=== PATIENT | female | born 1950 | race Caucasian/White ===

== ENCOUNTER → 2017-04-19 14:05 | Outpatient (CLI) | payer MEDICARE, OTHER, SELFPAY ==
[2017-04-19 15:38] LABS: AST(SGOT) 22 U/L (15-37); Alanine Aminotransfer ALT/SGPT 34 U/L (13-56); Albumin, Serum 3.7 g/dL (3.2-5.0); Alkaline Phosphatase 81 U/L (45-117); Cholesterol 191 mg/dL (200); Globulin 3.6 g/dL (2.2-4.2); High Density Lipoprotein 47 mg/dL; Protein, Total 7.3 g/dL (6.4-8.2); Triglycerides 147 mg/dL; Very Low Density Lipoprotein 29 mg/dL (5-40)
== END ==
PROVIDERS: Family Provider Family Medicine; Visit Provider Physician Assistant Medical
DX: E78.5 Hyperlipidemia, unspecified (principal); Z79.899 Other long term (current) drug therapy
CPT/HCPCS: 36415; 80061; 80076

== ENCOUNTER 2017-04-26 13:59 | Outpatient (RCR) | payer MEDICARE, OTHER, SELFPAY ==
[2017-04-11 15:13] LABS: International Normalized Ratio 3.1
[2017-04-26 15:31] LABS: International Normalized Ratio 3.1
== END 2017-04-26 14:00 ==
LOC: LAB 13:59
PROVIDERS: Visit Provider Internal Medicine Cardiovascular Disease
DX: I48.0 Paroxysmal atrial fibrillation (principal); Z79.899 Other long term (current) drug therapy
CPT/HCPCS: 36415; 85610

== ENCOUNTER → 2017-05-09 12:36 | Outpatient (CLI) | payer MEDICARE, OTHER, SELFPAY ==
[2017-04-11 15:01] VITALS: BP 110/74; BMI 29.0
--- NOTE | 2017-05-09 12:40 | CDU_ITS ---
Reason For Study: CAROTID STENOSIS Rt. Velocities/BP Lt. Velocities/BP Prox CCA 52.2/14.7 cm/sec. Prox CCA 65.7/27.0 cm/sec. Mid CCA 49.2/16.4 cm/sec. Mid CCA 53.9/20.5 cm/sec. Dist CCA 44.8/17.7 cm/sec. Dist CCA 57.5/22.9 cm/sec. Prox ICA 65.1/27.6 cm/sec. Prox ICA 84.4/28.7 cm/sec. Mid ICA 52.8/19.9 cm/sec. Mid ICA 65.1/25.8 cm/sec. Dist ICA 74.5/31.1 cm/sec. Dist ICA 63.3/18.2 cm/sec. Rt. ICA/CCA = 74.5/49.2=1.5. Lt. ICA/CCA = 84.4/53.9=1.6. Prox ECA 179.0/30.4 cm/sec. Prox ECA 97.3/17.0 cm/sec. Rt. Vert. 41.9/12.6 cm/sec. Lt. Vert. 39.5/15.2 cm/sec. Right Extracranial There is heterogeneous, irregular atherosclerotic plaque noted in the right common carotid artery. There is heterogeneous, irregular atherosclerotic plaque noted in the right internal carotid artery. There is heterogeneous, smooth atherosclerotic plaque noted in the right external carotid artery. Antegrade flow is noted in the right vertebral artery. Left Extracranial There is intimal thickening but no significant atherosclerotic plaque noted in the left common carotid artery. There is intimal thickening but no significant atherosclerotic plaque noted in the left internal carotid artery. There is intimal thickening but no significant atherosclerotic plaque noted in the left external carotid artery. Antegrade flow is noted in the left vertebral artery. Procedure Carotid Duplex 31111. The exam was diagnostic. Exam performed in department. Interpretation Summary Mild (<50%) stenosis right extracranial internal carotid. Mild (<50%) stenosis left extracranial internal carotid. Flow within the vertebral arteries is antegrade bilaterally. Ordering Physician: William Kraus Referring Physician: Candice Kang Performed By: Veena oTth, THERESA, RVT
== END ==
PROVIDERS: Visit Provider Surgery Vascular Surgery
DX: I73.9 Peripheral vascular disease, unspecified (principal); I65.29 Occlusion and stenosis of unspecified carotid artery; Z86.73 Personal history of transient ischemic attack (TIA), and cerebral infarction without residual deficits; E78.00 Pure hypercholesterolemia, unspecified; I10 Essential (primary) hypertension; M19.90 Unspecified osteoarthritis, unspecified site; Z72.0 Tobacco use
CPT/HCPCS: 93880

== ENCOUNTER 2017-06-24 14:10 | Outpatient (RCR) | payer MEDICARE, OTHER, SELFPAY ==
[2017-06-09 11:58] LABS: International Normalized Ratio 3.4; Prothrombin Time (Protime)PT. 34.9 SECONDS (11.7-14.9)
[2017-06-24 16:32] LABS: International Normalized Ratio 3.2; Prothrombin Time (Protime)PT. 32.8 SECONDS (11.7-14.9)
== END 2017-06-24 15:00 | disposition home or self-care (01) ==
LOC: LAB 14:10
PROVIDERS: Visit Provider Internal Medicine Cardiovascular Disease
DX: I48.0 Paroxysmal atrial fibrillation (principal); Z79.899 Other long term (current) drug therapy
CPT/HCPCS: 36415; 85610

== ENCOUNTER → 2017-06-29 13:50 | Outpatient (CLI) | payer MEDICARE, OTHER, SELFPAY ==
--- NOTE | 2017-07-06 10:59 | LEAS ---
Arterial Study - Arterial Study Arterial Study: Date of scan 06/29/[address] Kraus Indication is claudication. Interpretation: Right lower extremity with peers of fairly normal pulsatile flow from the thigh down to the ankle out through the digits duplex shows triphasic flow actually at the ankle with an RANJAN of 0.880.84 with exercise there is no after exercising at 1.4 mph 5% grade and did secondary to shortness of breath there is no change in the RANJAN 1 minute 0.8-3 minutes 0.945 minutes 1.07 Left lower extremity fairly again normal pulsatile flow from the thigh down to the calf ankle out through the digits slightly diminished there duplex again shows more of a triphasic waveform noted with an RANJAN 0.81 posterior tibial 0.82 dorsalis pedis. With exercise again 1.4 mph 5% grade ended at 1-1/2 minutes due to shortness of breath fatigue leg pain this decreased down to 0.67 then up to 0.790.92. Impression: 1. Right lower extremity with mild arterial occlusive disease with no significant change with exercise. 2. Left lower extremity with mild arterial occlusive disease with a slight decrease down from 0.8-0.67 with exercise. Further evaluation as clinically warranted
== END ==
PROVIDERS: Visit Provider Surgery Vascular Surgery
DX: I73.9 Peripheral vascular disease, unspecified (principal); I65.29 Occlusion and stenosis of unspecified carotid artery; E78.00 Pure hypercholesterolemia, unspecified; I10 Essential (primary) hypertension; M19.90 Unspecified osteoarthritis, unspecified site; F17.200 Nicotine dependence, unspecified, uncomplicated; Z86.73 Personal history of transient ischemic attack (TIA), and cerebral infarction without residual deficits
CPT/HCPCS: 93924

== ENCOUNTER 2017-08-04 10:30 | Outpatient (RCR) | payer MEDICARE, OTHER, SELFPAY ==
[2017-08-04 12:21] LABS: International Normalized Ratio 2.2; Prothrombin Time (Protime)PT. 24.9 SECONDS (11.7-14.9)
== END 2017-08-04 11:00 | disposition home or self-care (01) ==
LOC: LAB 10:30
PROVIDERS: PCP Family Medicine; Visit Provider Internal Medicine Cardiovascular Disease
DX: I48.0 Paroxysmal atrial fibrillation (principal); Z79.899 Other long term (current) drug therapy
CPT/HCPCS: 36415; 85610

== ENCOUNTER 2017-08-05 16:29 | Inpatient (IN) | payer MEDICARE, OTHER, SELFPAY ==
[2017-08-05] VITALS (10 sets, daily range): BP systolic 87–114; BP diastolic 35–69; PULSE 60–66; RESP 14–18; TEMP 36.5–36.9; O2SAT 95–96; BMI 29.2; BMI 28.1; BMI 28.2
--- NOTE | 2017-08-05 16:43 | EKG12_ITS ---
Test Reason : CHEST PAIN Blood Pressure : / mmHG Vent. Rate : 067 BPM Atrial Rate : 067 BPM P-R Int : 142 ms QRS Dur : 086 ms QT Int : 436 ms P-R-T Axes : 036 -07 089 degrees QTc Int : 460 ms Normal sinus rhythm Normal ECG Confirmed by ELENA HANNAH ([id number]), online content editor TISH VALERA ([id number]) on 08/15/2017 6:08:40 PM Referred By: Tian Emery Confirmed By:ELENA HANNAH
--- NOTE | 2017-08-05 16:44 | RAD_ITS ---
STUDY: X-RAY CHEST REASON FOR EXAM: Female, 67 years old. Chest pain TECHNIQUE: Frontal view of the chest COMPARISON: 01/29/2016. FINDINGS: The lungs are clear. There are no pleural effusions. There is no pneumothorax. The heart is normal in size. Again noted is a pacemaker. The patient is status post sternotomy. RAD/Chest 1 View (Portable) IMPRESSION: No acute thoracic pathology. Electronically Signed: Sandeep Puente, at 17:49 EDT Tel , Service support ,
--- NOTE | 2017-08-05 16:45 | ED.DCSUM_ITS ---
- ER Visit Summary Date of Service: 08/05/17 Chief Complaint: Chest pain History of Present Illness: The patient is a 67 F presenting with intermittent chest pain. She states she had an episode of chest pain that lasted 45 minutes last night. She states the pain again returned this morning and she has had intermittent substernal chest pain today. She has associated nausea, diaphoresis, shortness of breath. Pain does not radiate. She has a history of hypertension, diabetes, hypercholesteremia, previous smoking. No PE/DVT risk factors. Physical Examination: Vitals are stable. Patient is afebrile. Alert no acute distress. HEENT exam is unremarkable. Neck is supple. Lungs are clear and equal bilaterally. Heart is regular rate and rhythm. Abdomen is soft nontender nondistended. Extremities are unremarkable. Skin is warm and dry. No focal neurologic deficit. Remainder of exam is unremarkable. Emergency Department Course and Treatment: EKG is sinus rate of 67, T-wave inverted in aVL previous was flattened. Patient was given aspirin on arrival. Chest x-ray shows no acute process. CBC shows a hemoglobin of 15.5. Chemistries show creatinine 1.39, glucose 136. INR is 2.3. Troponin is negative. Discussed with the hospitalist for admission. Disposition: Observation Impression: Chest pain This note was generated with [employer] dictation software. It may contain incorrect words, spelling, and punctuation that were not noted in review of the chart prior to signing ED Disposition - Plan for ED Patient: Chief Complaint: Chest Pain Referrals: Ruslan Kang MD [Primary Care Provider] -
[2017-08-05] MEDS: Aspirin 81 MG TAB.CHEW 324 MG PO (17:00)
[2017-08-05] MEDS: Ondansetron 4 MG/2 ML Vial IV (17:00)
[2017-08-05 17:06] LABS: Absolute Lymphocyte Count 2.61 X10^3/ul (0.83-4.51); Absolute Neutrophil Count 5.6 X10^3/uL (2.0-7.7); Basophil# 0.03 X10^3/uL; Basophil% 0.3 % (0-1); Eosinophil# 0.41 X10^3/uL; Eosinophils% 4.2 % (0-5); Hematocrit 47.8 % (37-47); Hemoglobin 15.5 g/dl (12.0-15.0); Lymphocyte # 2.61 X10^3/ul (4.0); Lymphocyte % 26.9 % (19-41); Mean Corp Hgb Conc 32.4 g/gl (32-36); Mean Corpuscular Hgb 30.9 pg (27.0-32.0); Mean Corpuscular Volume 95.2 fL (81-99); Mean Platelet Vol. 12.8 fl (6.2-12.0); Monocyte# 1.04 X10^3/uL; Monocyte% 10.7 % (0-10); Neutrophil % 57.8 % (47-70); Platelet Count 217 K/mm3 (150-450); RBC Distribution Width CV 13.3 % (11.6-14.6); RBC Distribution Width SD 46.3 fl (35.1-43.9); Red Blood Count 5.02 M/mm3 (4.2-5.4); White Blood Count 9.7 K/mm3 (4.4-11.0)
[2017-08-05 17:07] LABS: POSITIVE COUNT NO; POSITIVE DIFFERENTIAL NO; POSITIVE MORPHOLOGY NO
[2017-08-05 17:12] LABS: International Normalized Ratio 2.3; Prothrombin Time (Protime)PT. 25.8 SECONDS (11.7-14.9)
[2017-08-05 17:18] LABS: Anion Gap 8 (5-15); BUN 16 mg/dL (7-18); BUN/Creat Ratio 11.5 RATIO (10-20); Chloride 106 mmol/L (98-107); Creatinine, Serum 1.39 mg/dL (0.55-1.02); EST Glomerular Filtration Rate 40 mL/min (>60); Est Glom Filt Rate - Afr Amer 49 mL/min (>60); Estimated Creatinine Clearance 33.91 ml/min; Glucose 136 mg/dL (74-106); Sodium Level 137 mmol/L (136-145)
--- NOTE | 2017-08-05 18:36 | PCM.HP.STD ---
Problem List (1) Hx of CABG Status: Chronic Comment: 06/29/2006 with SANDHU to LAD, SVG to diagonal, & SVG to RCA (2) Carotid artery disease Status: Chronic Qualifiers: Comment: S/P left carotid endarterectomy June 2006; (3) Paroxysmal atrial fibrillation Status: Chronic (4) CAD (coronary artery disease) Status: Chronic Comment: cabg x 3 1999 1 stent cath 2006 (5) HTN (hypertension) Status: Chronic Qualifiers: (6) PVD (peripheral vascular disease) Status: Chronic Comment: ? bilateral LE stents (7) HLD (hyperlipidemia) Status: Chronic Qualifiers: (8) Pacemaker Status: Chronic (9) Depression with anxiety Status: Chronic History of Present Illness Date of Admission: 08/05/17 Chief Complaint: Chest pain. The patient is a 67 year old F with past medical history as mentioned above presented to the emergency room because of chest pain. Her symptoms started last night when she was sitting with central chest pain, retrosternal, burning type pain, 5-6 out of 10 in severity, not radiating, associated with shortness of breath and palpitation as well as nausea and without aggravating or relieving factors. The pain lasted for about 45 minutes and then resolved. This morning, she had headache and neck pain and she started having this pain again which similar to the last last night chest pain and she decided to come to the emergency room. Today, she reported dry cough after she was smelling somebody's smoking. Patient mentioned that back in 2012, she had nuclear stress test and she developed significant side effects after the injection she received. In the emergency department, her vital signs are stable. She mentioned that usually her blood pressure runs in the 90s systolic. Her routine blood work is remarkable for hemoglobin of 15.5 g/dL, creatinine of 1.39, otherwise normal. Troponin was negative. EKG revealed normal sinus rhythm, flattening of T wave in lateral chest leads and no acute ischemic changes. Chest x-ray showed no acute infiltrate, consolidation or effusion. She is being admitted for chest pain for evaluation. Past Medical History Past Medical History (Chronic Problems): Chronic Problems Hx of CABG (Chronic) 06/29/2006 with SANDHU to LAD, SVG to diagonal, & SVG to RCA Carotid artery disease (Chronic) S/P left carotid endarterectomy June 2006; Atherosclerosis of [place] coronary artery of [place] heart without angina pectoris (Chronic) S/P CABG 06/29/2006 with SANDHU to LAD, SVG to diagonal, & SVG to RCA; PCI to prox LAD 06/2006 post CABG; Paroxysmal atrial fibrillation (Chronic) CAD (coronary artery disease) (Chronic) cabg x 3 1999 03 stent cath 2006 HTN (hypertension) (Chronic) PVD (peripheral vascular disease) (Chronic) ? bilateral LE stents HLD (hyperlipidemia) (Chronic) Sick sinus syndrome with tachycardia (Chronic) S/P Pacemaker implantation 04/09/2013; Cerebrovascular disease (Chronic) hx stroke mild residual left hemiparesis s/p left CEA 2006 mild-mod external carotid disease 05/18 Pacemaker (Chronic) Bradycardia (Chronic) Chronic back pain (Chronic) Tobacco use (Chronic) Depression with anxiety (Chronic) Allergies atorvastatin calcium [From Lipitor] Allergy (Verified 08/05/17 16:34) Hives metoprolol succinate [From Toprol XL] Allergy (Verified 08/05/17 16:34) Rash niacin [From Niaspan Extended-Release] Allergy (Verified 08/05/17 16:34) Rash Penicillins Allergy (Verified 08/05/17 16:34) Rash Sulfa (Sulfonamide Antibiotics) Allergy (Verified 08/05/17 16:34) Itching atorvastatin Adverse Reaction (Severe, Verified 08/05/17 16:34) Unknown Home Medications: Ambulatory Orders Medication Instructions Recorded Aspirin [Aspirin, Baby] 81 mg PO DAILY@0800 08/23/13 Isosorbide Mononitrate [Monoket] 10 mg PO BID 08/23/13 Metoprolol Tartrate [Lopressor 12.5 mg PO BID 08/23/13 (beta juwan)] Pravastatin [Pravachol] 80 mg PO QHS 08/23/13 Meloxicam [Mobic] 15 mg PO DAILY 03/01/17 budesonide-formoterol HFA 160 2 puff INHALATION Q12H 03/29/17 mcg-4.5 mcg/actuation aerosol inhaler cetirizine 10 mg tablet 5 mg PO DAILY tab 03/29/17 nitroglycerin 0.4 mg sublingual 0.4 mg SUBLINGUAL Q5M PRN 03/29/17 tablet potassium chloride ER 10 mEq 20 meq PO DAILY #60 tab 04/07/17 tablet,extended release warfarin 2.5 mg tablet 2.5 mg PO .COMPLEX 06/25/17 Enalapril Maleate 5 mg PO DAILY 08/05/17 Mometasone/Formoterol [Dulera 200 1 inh IH BID PRN 08/05/17 Mcg/5 Mcg Inhaler] Surgical History: coronary bypass surgery, - - Left carotid endarterectomy, PCI, Hysterectomy, Cholecystectomy, CABG, BL LE stents. 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 Denies: Heaviness, Light Headedness, Orthopnea, Paroxysmal Noc. Dyspnea, Syncope Respiratory: Reports: Cough, Shortness of Breath. Denies: Pleuritic Pain, Sputum production, Wheezing Gastrointestinal: Reports: Nausea, -. Denies: Abdominal Pain, Constipation, Diarrhea, Vomiting Genitourinary: Denies: Dysuria, Frequency, Hematuria Musculoskeletal: Denies: Arm Pain, Back Pain, Foot Pain Skin: Denies: Dryness, Rash Neurological: Reports: Headaches. Denies: Balance problems, Change in Speech, Slurred speech, Incoordination, Numbness Psychiatric: Reports: Anxiety, Depression Endocrine: Denies: Change in Body Habitus, Polydipsia VTE Information - Inpt Only VTE Present on Admission: No VTE Mechan Device Prophylaxis: None VTE Pharm Prophylaxis ordered?: No - Physical Exam General: Alert, Oriented x3, Cooperative, No apparent distress HEENT: Atraumatic, PERRLA, EOMI, Normocephalic Oral: Moist Mucosa, No Gingival or Mucosal Lesions/ Ulcerations Neck: Supple, No JVD, Negative Carotid Bruits, Trachea Midline, Thyroid Normal Size and Texture Lungs: Clear to auscultation, No rhonchi, No wheeze, No rales, Diminished Cardiovascular: Regular rate, Regular Rhythm, Normal S1, Normal S2, No murmurs, PMI Normal Abdomen: Bowel Sounds Present, Soft, Non Tender, Non-Distended, No Hepato-splenomegaly Extremities: No clubbing, No cyanosis, No edema Skin: No rashes, No breakdown Lymphatic: No Cervical, Supraclavicular, or Inguinal Adenopathy Neurological: Cranial nerves II-XII grossly intact, Motor Exam 5/5 strength throughout Psych/Mental Status: Normal Affect, Appropriate, Alert and oriented to time, place, person, mood and affect Vital Signs Temp Pulse Resp BP Pulse Ox 98.4 F 60 18 92/69 95 08/05/17 16:30 08/05/17 18:22 08/05/17 18:22 08/05/17 18:22 08/05/17 18:22 Oxygen Delivery Method Room Air Weight: 170 lb 6.677 oz Body Mass Index (BMI) 29.2 Finger Stick Blood Glucose 85 Laboratory Tests Past 24 Hrs 08/05/17 08/05/17 08/05/17 16:30 16:30 16:30 WBC 9.7 RBC 5.02 Hgb 15.5 H Hct 47.8 H MCV 95.2 MCH 30.9 MCHC 32.4 RDW 13.3 RDW Differential 46.3 H Plt Count 217 MPV 12.8 H Immature Gran % (Auto) 0.100 Neut % (Auto) 57.8 Lymph % (Auto) 26.9 Emanuel % (Auto) 10.7 H Eos % (Auto) 4.2 Baso % (Auto) 0.3 Absolute Neuts (auto) 5.6 Absolute Lymphs (auto) 2.61 Total Counted Not Reportable PT 25.8 H INR 2.3 Sodium 137 Potassium 4.0 Chloride 106 Carbon Dioxide 23.0 Anion Gap 8 BUN 16 Creatinine 1.39 H Estim Creat Clear Calc 33.91 Est GFR (MDRD) Af Amer 49 L Est GFR (MDRD) Non-Af 40 L BUN/Creatinine Ratio 11.5 Glucose 136 H Calcium 9.0 Troponin I < 0.015 Clinical Impression(s) from Imaging Studies Chest X-Ray 08/05/17 16:44 IMPRESSION: No acute thoracic pathology. Electronically Signed: Sandeep Puente, at 17:49 EDT Tel , Service support , Assessment/Plan This is a 67 years old female patient presented to the emergency room because of chest pain and she is being admitted for evaluation. #1 chest pain: In context of history of CAD status post CABG. EKG revealed no acute ischemic changes. Troponin is negative ?1. Chest x-ray showed no acute findings.Patient mentioned that she had nuclear stress test back in 2012 and she developed significant side effects after injecting the nuclear material and she was told that she cannot have stress test. This is according to the patient. Plan: Admit to PCU for observation, cardiac monitoring, serial cardiac enzymes, repeat EKG tomorrow morning, nitroglycerin as needed for pain, Tylenol as needed, gentle IV fluids for hydration, IV antiemetics, cardiology consult, continue aspirin, isosorbide mononitrate, enalapril and metoprolol as well as statins. #2 dehydration: This is based on slightly elevated hemoglobin as well as creatinine. Baseline creatinine has been around 1.1, admission creatinine is 1.39. Clinically, patient is dehydrated. Plan: Gentle IV fluids for hydration, input output chart, repeat BMP tomorrow morning. #2 CAD status post CABG and stents: Plan as above, continue aspirin, beta blockers, enalapril, nitrates and statins. #3 paroxysmal A. fib: Rate is controlled, continue metoprolol for rate control, INR is therapeutic. #4 sick sinus syndrome: Status post pacemaker, heart rate stable. #5 hypertension: Blood pressure stable, baseline systolic is around 90. Continue enalapril, metoprolol and isosorbide mononitrate. #6 hyperlipidemia: Continue statins. #7 history of stroke: Continue aspirin, Coumadin and statins. #8 carotid artery disease: Status post left carotid endarterectomy. #9 DVT prophylaxis: INR is 2.3. This note was generated with STYLIGHTation software. It may contain incorrect words, spelling, and punctuation that were not noted in checking the note before signing. Code Visit OBSV E&M: 37940 Initial observation care L3
--- NOTE | 2017-08-05 18:41 | HP.PCM_ITS ---
Problem List (1) Hx of CABG Status: Chronic Comment: 06/29/2006 with SANDHU to LAD, SVG to diagonal, & SVG to RCA (2) Carotid artery disease Status: Chronic Qualifiers: Comment: S/P left carotid endarterectomy June 2006; (3) Paroxysmal atrial fibrillation Status: Chronic (4) CAD (coronary artery disease) Status: Chronic Comment: cabg x 3 1999 1 stent cath 2006 (5) HTN (hypertension) Status: Chronic Qualifiers: (6) PVD (peripheral vascular disease) Status: Chronic Comment: ? bilateral LE stents (7) HLD (hyperlipidemia) Status: Chronic Qualifiers: (8) Pacemaker Status: Chronic (9) Depression with anxiety Status: Chronic History of Present Illness Date of Admission: 08/05/17 Chief Complaint: Chest pain. The patient is a 67 year old F with past medical history as mentioned above presented to the emergency room because of chest pain. Her symptoms started last night when she was sitting with central chest pain, retrosternal, burning type pain, 5-6 out of 10 in severity, not radiating, associated with shortness of breath and palpitation as well as nausea and without aggravating or relieving factors. The pain lasted for about 45 minutes and then resolved. This morning, she had headache and neck pain and she started having this pain again which similar to the last last night chest pain and she decided to come to the emergency room. Today, she reported dry cough after she was smelling somebody's smoking. Patient mentioned that back in 2012, she had nuclear stress test and she developed significant side effects after the injection she received. In the emergency department, her vital signs are stable. She mentioned that usually her blood pressure runs in the 90s systolic. Her routine blood work is remarkable for hemoglobin of 15.5 g/dL, creatinine of 1.39 , otherwise normal. Troponin was negative. EKG revealed normal sinus rhythm, flattening of T wave in lateral chest leads and no acute ischemic changes. Chest x-ray showed no acute infiltrate, consolidation or effusion. She is being admitted for chest pain for evaluation. Past Medical History Past Medical History (Chronic Problems): Chronic Problems Hx of CABG (Chronic) 06/29/2006 with SANDHU to LAD, SVG to diagonal, & SVG to RCA Carotid artery disease (Chronic) S/P left carotid endarterectomy June 2006; Atherosclerosis of [place] coronary artery of [place] heart without angina pectoris (Chronic) S/P CABG 06/29/2006 with SANDHU to LAD, SVG to diagonal, & SVG to RCA; PCI to prox LAD 06/2006 post CABG; Paroxysmal atrial fibrillation (Chronic) CAD (coronary artery disease) (Chronic) cabg x 3 1999 03 stent cath 2006 HTN (hypertension) (Chronic) PVD (peripheral vascular disease) (Chronic) ? bilateral LE stents HLD (hyperlipidemia) (Chronic) Sick sinus syndrome with tachycardia (Chronic) S/P Pacemaker implantation 04/09/2013; Cerebrovascular disease (Chronic) hx stroke mild residual left hemiparesis s/p left CEA 2006 mild-mod external carotid disease 05/18 Pacemaker (Chronic) Bradycardia (Chronic) Chronic back pain (Chronic) Tobacco use (Chronic) Depression with anxiety (Chronic) Allergies atorvastatin calcium [From Lipitor] Allergy (Verified 08/05/17 16:34) Hives metoprolol succinate [From Toprol XL] Allergy (Verified 08/05/17 16:34) Rash niacin [From Niaspan Extended-Release] Allergy (Verified 08/05/17 16:34) Rash Penicillins Allergy (Verified 08/05/17 16:34) Rash Sulfa (Sulfonamide Antibiotics) Allergy (Verified 08/05/17 16:34) Itching atorvastatin Adverse Reaction (Severe, Verified 08/05/17 16:34) Unknown Home Medications: Ambulatory Orders Medication Instructions Recorded Aspirin [Aspirin, Baby] 81 mg PO DAILY@0800 08/23/13 Isosorbide Mononitrate [Monoket] 10 mg PO BID 08/23/13 Metoprolol Tartrate [Lopressor 12.5 mg PO BID 08/23/13 (beta juwan)] Pravastatin [Pravachol] 80 mg PO QHS 08/23/13 Meloxicam [Mobic] 15 mg PO DAILY 03/01/17 budesonide-formoterol HFA 160 2 puff INHALATION Q12H 03/29/17 mcg-4.5 mcg/actuation aerosol inhaler cetirizine 10 mg tablet 5 mg PO DAILY tab 03/29/17 nitroglycerin 0.4 mg sublingual 0.4 mg SUBLINGUAL Q5M PRN 03/29/17 tablet potassium chloride ER 10 mEq 20 meq PO DAILY #60 tab 04/07/17 tablet,extended release warfarin 2.5 mg tablet 2.5 mg PO .COMPLEX 06/25/17 Enalapril Maleate 5 mg PO DAILY 08/05/17 Mometasone/Formoterol [Dulera 200 1 inh IH BID PRN 08/05/17 Mcg/5 Mcg Inhaler] Surgical History: coronary bypass surgery, - - Left carotid endarterectomy, PCI , Hysterectomy, Cholecystectomy, CABG, BL LE stents. Psychiatric History: Anxiety, Depression, - - Claustrophobia MASSEUR/MASSEUSE History: No pertinent MASSEUR/MASSEUSE history Smoking Status: Former smoker Alcohol: None Drugs: None - *Family History Maternal History Items: No pertinent history Paternal History Items: No pertinent history Review of Systems Constitutional: Denies: Anorexia, Chills, Fever, Weakness Eyes: Denies: Blurred vision, Double vision, Drainage, Redness HEENT: Denies: Difficulty Hearing, Ear Pain, Eye Pain, Nasal Congestion, Sore Throat Cardiovascular: Reports: Chest Pain. Denies: Heaviness, Light Headedness, Orthopnea, Paroxysmal Noc. Dyspnea, Syncope Respiratory: Reports: Cough, Shortness of Breath. Denies: Pleuritic Pain, Sputum production, Wheezing Gastrointestinal: Reports: Nausea, -. Denies: Abdominal Pain, Constipation, Diarrhea, Vomiting Genitourinary: Denies: Dysuria, Frequency, Hematuria Musculoskeletal: Denies: Arm Pain, Back Pain, Foot Pain Skin: Denies: Dryness, Rash Neurological: Reports: Headaches. Denies: Balance problems, Change in Speech, Slurred speech, Incoordination, Numbness Psychiatric: Reports: Anxiety, Depression Endocrine: Denies: Change in Body Habitus, Polydipsia VTE Information - Inpt Only VTE Present on Admission: No VTE Mechan Device Prophylaxis: None VTE Pharm Prophylaxis ordered?: No - Physical Exam General: Alert, Oriented x3, Cooperative, No apparent distress HEENT: Atraumatic, PERRLA, EOMI, Normocephalic Oral: Moist Mucosa, No Gingival or Mucosal Lesions/ Ulcerations Neck: Supple, No JVD, Negative Carotid Bruits, Trachea Midline, Thyroid Normal Size and Texture Lungs: Clear to auscultation, No rhonchi, No wheeze, No rales, Diminished Cardiovascular: Regular rate, Regular Rhythm, Normal S1, Normal S2, No murmurs, PMI Normal Abdomen: Bowel Sounds Present, Soft, Non Tender, Non-Distended, No Hepato- splenomegaly Extremities: No clubbing, No cyanosis, No edema Skin: No rashes, No breakdown Lymphatic: No Cervical, Supraclavicular, or Inguinal Adenopathy Neurological: Cranial nerves II-XII grossly intact, Motor Exam 5/5 strength throughout Psych/Mental Status: Normal Affect, Appropriate, Alert and oriented to time, place, person, mood and affect Vital Signs Temp Pulse Resp BP Pulse Ox 98.4 F 60 18 92/69 95 08/05/17 16:30 08/05/17 18:22 08/05/17 18:22 08/05/17 18:22 08/05/17 18:22 Oxygen Delivery Method Room Air Weight: 170 lb 6.677 oz Body Mass Index (BMI) 29.2 Finger Stick Blood Glucose 85 Laboratory Tests Past 24 Hrs 08/05/17 08/05/17 08/05/17 16:30 16:30 16:30 WBC 9.7 RBC 5.02 Hgb 15.5 H Hct 47.8 H MCV 95.2 MCH 30.9 MCHC 32.4 RDW 13.3 RDW Differential 46.3 H Plt Count 217 MPV 12.8 H Immature Gran % (Auto) 0.100 Neut % (Auto) 57.8 Lymph % (Auto) 26.9 [place] % (Auto) 10.7 H Eos % (Auto) 4.2 Baso % (Auto) 0.3 Absolute Neuts (auto) 5.6 Absolute Lymphs (auto) 2.61 Total Counted Not Reportable PT 25.8 H INR 2.3 Sodium 137 Potassium 4.0 Chloride 106 Carbon Dioxide 23.0 Anion Gap 8 BUN 16 Creatinine 1.39 H Estim Creat Clear Calc 33.91 Est GFR (MDRD) Af Amer 49 L Est GFR (MDRD) Non-Af 40 L BUN/Creatinine Ratio 11.5 Glucose 136 H Calcium 9.0 Troponin I < 0.015 Clinical Impression(s) from Imaging Studies Chest X-Ray 08/05/17 16:44 IMPRESSION: No acute thoracic pathology. Electronically Signed: Sandeep Puente, at 17:49 EDT Tel , Service support , Assessment/Plan This is a 67 years old female patient presented to the emergency room because of chest pain and she is being admitted for evaluation. #1 chest pain: In context of history of CAD status post CABG. EKG revealed no acute ischemic changes. Troponin is negative ?1. Chest x-ray showed no acute findings.Patient mentioned that she had nuclear stress test back in 2012 and she developed significant side effects after injecting the nuclear material and she was told that she cannot have stress test. This is according to the patient. Plan: Admit to PCU for observation, cardiac monitoring, serial cardiac enzymes, repeat EKG tomorrow morning, nitroglycerin as needed for pain, Tylenol as needed, gentle IV fluids for hydration, IV antiemetics, cardiology consult, continue aspirin, isosorbide mononitrate, enalapril and metoprolol as well as statins. #2 dehydration: This is based on slightly elevated hemoglobin as well as creatinine. Baseline creatinine has been around 1.1, admission creatinine is 1.39. Clinically, patient is dehydrated. Plan: Gentle IV fluids for hydration , input output chart, repeat BMP tomorrow morning. #2 CAD status post CABG and stents: Plan as above, continue aspirin, beta blockers, enalapril, nitrates and statins. #3 paroxysmal A. fib: Rate is controlled, continue metoprolol for rate control, INR is therapeutic. #4 sick sinus syndrome: Status post pacemaker, heart rate stable. #5 hypertension: Blood pressure stable, baseline systolic is around 90. Continue enalapril, metoprolol and isosorbide mononitrate. #6 hyperlipidemia: Continue statins. #7 history of stroke: Continue aspirin, Coumadin and statins. #8 carotid artery disease: Status post left carotid endarterectomy. #9 DVT prophylaxis: INR is 2.3. This note was generated with [employer] software. It may contain incorrect words, spelling, and punctuation that were not noted in checking the note before signing. Code Visit OBSV E&M: 21068 Initial observation care L3
[2017-08-05] MEDS: 0.9% Normal Saline 1,000 ML 75 ML IV (20:08)
[2017-08-05] MEDS: 0.9% NaCl Peripheral Flush Adult/Peds IV (20:08)
[2017-08-05] MEDS: Pravastatin 80 MG Tablet PO (21:53)
[2017-08-05] MEDS: Isosorbide Mononitrate 20 MG Tablet 10 MG PO (21:53)
[2017-08-06] VITALS (12 sets, daily range): BP systolic 93–147; BP diastolic 43–72; PULSE 60–75; RESP 16–18; TEMP 36.5–37.3; O2SAT 92–99
--- NOTE | 2017-08-06 05:55 | EKG12_ITS ---
Test Reason : AM EKG Blood Pressure : / mmHG Vent. Rate : 064 BPM Atrial Rate : 064 BPM P-R Int : 214 ms QRS Dur : 086 ms QT Int : 448 ms P-R-T Axes : 000 011 082 degrees QTc Int : 462 ms Atrial-paced rhythm with prolonged AV conduction T wave abnormality, consider anterior ischemia Abnormal ECG Confirmed by KAELYN MARIN, TIAN ([id number]), acquisitions editor TISH VALERA ([id number]) on 08/19/2017 2:17:47 PM Referred By: Tian Art Confirmed By:TINA ART MD
[2017-08-06] MEDS: Aspirin 81 MG TAB.CHEW PO (06:11)
[2017-08-06] MEDS: Lisinopril 5 MG Tablet PO (06:11)
[2017-08-06 06:31] LABS: Absolute Lymphocyte Count 1.91 X10^3/ul (0.83-4.51); Basophil# 0.01 X10^3/uL; Basophil% 0.1 % (0-1); Eosinophil# 0.24 X10^3/uL; Eosinophils% 3.6 % (0-5); Hematocrit 37.3 % (37-47); Lymphocyte # 1.91 X10^3/ul (4.0); Lymphocyte % 28.4 % (19-41); Mean Corp Hgb Conc 32.2 g/gl (32-36); Mean Corpuscular Hgb 30.5 pg (27.0-32.0); Mean Corpuscular Volume 94.9 fL (81-99); Mean Platelet Vol. 12.7 fl (6.2-12.0); Monocyte# 0.53 X10^3/uL; Monocyte% 7.9 % (0-10); Neutrophil # 4.02 X10^3/uL (2.7-7.7); Neutrophil % 59.9 % (47-70); Platelet Count 145 K/mm3 (150-450); RBC Distribution Width CV 13.2 % (11.6-14.6); RBC Distribution Width SD 46.2 fl (35.1-43.9); Red Blood Count 3.93 M/mm3 (4.2-5.4); White Blood Count 6.7 K/mm3 (4.4-11.0)
[2017-08-06 06:32] LABS: POSITIVE COUNT NO; POSITIVE DIFFERENTIAL NO; POSITIVE MORPHOLOGY NO
[2017-08-06 06:37] LABS: International Normalized Ratio 3.2; Prothrombin Time (Protime)PT. 32.8 SECONDS (11.7-14.9)
[2017-08-06 06:38] LABS: Partial Thromboplast Time 49.3 Seconds (24.1-36.2)
[2017-08-06 06:44] LABS: Anion Gap 8 (5-15); BUN 12 mg/dL (7-18); BUN/Creat Ratio 13.5 RATIO (10-20); Calcium,Total 7.9 mg/dL (8.5-10.1); Chloride 112 mmol/L (98-107); Creatinine, Serum 0.89 mg/dL (0.55-1.02); EST Glomerular Filtration Rate 67 mL/min (>60); Est Glom Filt Rate - Afr Amer 82 mL/min (>60); Estimated Creatinine Clearance 52.97 ml/min; Glucose 87 mg/dL (74-106); Potassium 3.9 mmol/L (3.5-5.1); Sodium Level 142 mmol/L (136-145)
[2017-08-06] MEDS: Ipratropium/Albuterol Sulfate 3 ML AMPUL.NEB INHALATION ×2 (07:39→14:08)
[2017-08-06] MEDS: Budesonide Respules 0.5 MG/2 ML AMPUL.NEB. INHALATION (07:40)
--- NOTE | 2017-08-06 07:46 | NM_ITS ---
CLINICAL: 67 year old hypertensive female with history of known coronary atherosclerosis, status post CABG with current complaint of chest discomfort. REST-REGADENOSON 99m Tc SESTAMIBI STRESS MYOCARDIAL PERFUSION SPECT COMPARISON: None available FINDINGS: Following the intravenous administration of 11.9 mCi of 99m Tc sestamibi, the resting myocardial perfusion acquisitions demonstrate relatively uniform perfusion noted throughout all left ventricular myocardial segments. The patient was administered intravenous regadenoson (0.4 mgm). Following the intravenous administration of 35.7 mCi of 99m Tc sestamibi, the post regadenoson images reveal decreased perfusion identified in the proximal anteroseptal and mid ventricular inferolateral segments. The total summed stress score is < 8. The post stress resting left ventricular ejection fraction is calculated to be 76.0 % by gated SPECT technique. Septal wall hypokinesis with compensatory lateral wall hyperkinesis is defined. There is otherwise uniform and normal wall motion, end systolic thickening noted in the remaining left ventricular myocardial segmental distributions. NM/Nuclear Stress Test - Chemical IMPRESSION: 1. MILDLY ABNORMAL, post CABG REST-REGADENOSON STRESS 99m Tc SESTAMIBI MYOCARDIAL PERFUSION SPECT. A. Pharmacologic-induced left ventricular ischemia involving the proximal anteroseptal and mid ventricular inferolateral segments. B. Preservation of resting left ventricular myocardial systolic function with evidence of poststernotomy epicardial swing. (Lizzette et al, J Nucl Med 37: 105P, 1996). C. In a registry of 1,544 post CABG patients studied with cardiac perfusion SPECT imaging at the [facility], patients with mild stress cardiac perfusion defect scores demonstrated a less than 1.0% annualized incidence of cardiac . (Kali et al, Journal of [employer], 37: 144, 2001). Electronically Signed: Mario Dockery DO at 13:18 EDT Tel , Service support ,
--- NOTE | 2017-08-06 09:42 | STRESSREP ---
Stress Test Report Regadenoson EKG: Resting EKG: Paced atrial rhythm with normal intrinsic ventricular response. Lexiscan EKG: Patient received Regadenoson for 1 minute. Resting blood pressure was 112/74, and bianca to max of 128/80. Test was terminated due to completion of regadenoson injection. During infusion the patient's heart rate remained the same. Patient had no dynamic EKG changes to suggest ischemia. Conclusions: Normal, adequate, Regadenoson infusion. Negative for ischemia by EKG criteria. No anginal symptoms noted. No arrhythmias noted. Patient tolerated procedure well. Nuclear images pending.
[2017-08-06] MEDS: Isosorbide Mononitrate 20 MG Tablet 10 MG PO ×2 (11:05→21:10)
[2017-08-06] MEDS: 0.9% Normal Saline 1,000 ML 75 ML IV (11:05)
--- NOTE | 2017-08-06 13:49 | PCM.PN.HOSP ---
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 She presents with chest pain, serial enzymes are normal her stress test is abnormal. She currently denies any chest pain palpitations or rapid heartbeat. Vitals/I&O's: Vital Signs Temp Pulse Resp BP Pulse Ox 97.8 F 64 18 103/48 L 92 08/06/17 11:03 08/06/17 11:03 08/06/17 11:03 08/06/17 11:03 08/06/17 11:03 Oxygen Delivery Method Room Air Weight: 74.435 kg Body Mass Index (BMI) 28.1 Intake and Output for Last 24 Hours 08/04/17 08/05/17 08/06/17 23:59 23:59 23:59 Intake Total 441 / 441 753 / 753 Balance 441 / 441 753 / 753 General: Alert, Oriented x3 HEENT: Atraumatic Oral: Moist Mucosa Neck: Supple, No JVD Cardiovascular: Regular rate, Normal S1, Normal S2 Abdomen: Bowel Sounds Present, Soft, Non Tender Extremities: No edema Neurological: Cranial nerves II-XII grossly intact, Motor Exam 5/5 strength throughout Psych/Mental Status: Normal Affect Laboratory Results 08/05/17 20:30: Troponin I < 0.015 08/06/17 01:36: Troponin I < 0.015 08/06/17 06:05: WBC 6.7, RBC 3.93 L, Hgb 12.0, Hct 37.3, MCV 94.9, MCH 30.5, MCHC 32.2, RDW 13.2, RDW Differential 46.2 H, Plt Count 145 L, MPV 12.7 H, Immature Gran % (Auto) 0.100, Neut % (Auto) 59.9, Lymph % (Auto) 28.4, [place] % (Auto) 7.9, Eos % (Auto) 3.6, Baso % (Auto) 0.1, Absolute Neuts (auto) 4.0, Absolute Lymphs (auto) 1.91, Total Counted Not Reportable 08/06/17 06:05: PT 32.8 H, INR 3.2, APTT 49.3 H 08/06/17 06:05: Sodium 142, Potassium 3.9, Chloride 112 H, Carbon Dioxide 22.0, Anion Gap 8, BUN 12, Creatinine 0.89, Estim Creat Clear Calc 52.97, Est GFR (MDRD) Af Amer 82, Est GFR (MDRD) Non-Af 67, BUN/Creatinine Ratio 13.5, Glucose 87, Calcium 7.9 L Current Medications Albuterol Sulfate (Ventolin Aerosols) 2.5 mg INHALATION Q2H PRN PRN PRN Reason: Shortness of breath, wheezing Albuterol/Ipratropium (Duoneb) 3 ml INHALATION Q6H.RT [facility] Last Admin: 08/06/17 07:39 Dose: 3 ml Aspirin (Aspirin, Baby) 81 mg PO DAILY@0800 [facility] Last Admin: 08/06/17 06:11 Dose: 81 mg Budesonide (Pulmicort Aerosol) 0.5 mg INHALATION Q12H.RT [facility] Last Admin: 08/06/17 07:40 Dose: 0.5 mg Guaifenesin (Robitussin) 10 ml PO Q6H PRN PRN PRN Reason: COUGH Sodium Chloride () 1,000 mls @ 75 mls/hr IV .[id number] [facility] Last Admin: 08/06/17 11:05 Dose: 75 mls/hr Sodium Chloride () 250 mls @ 15 mls/hr IV .[id number] PRN PRN Reason: SALINE FLUSH Isosorbide Mononitrate (Monoket) 10 mg PO BID [facility] Last Admin: 08/06/17 11:05 Dose: 10 mg Lisinopril (Zestril) 5 mg PO DAILY [facility] Last Admin: 08/06/17 06:11 Dose: 5 mg Magnesium Hydroxide (Milk Of Magnesia) 30 ml PO DAILY PRN PRN Reason: Constipation Metoprolol Tartrate (Lopressor (Beta Zoey)) 12.5 mg PO BID [facility] Last Admin: 08/06/17 11:04 Dose: Not Given Nitroglycerin (Nitrostat) 0.4 mg SUBLINGUAL Q5M PRN PRN Reason: CHEST PAIN Ondansetron HCl (Zofran) 4 mg IV Q6H PRN PRN PRN Reason: NAUSEA/VOMITING Potassium Chloride (K-Dur) 20 meq PO DAILY [facility] Last Admin: 08/06/17 11:04 Dose: 20 meq Pravastatin Sodium (Pravachol) 80 mg PO QHS [facility] Last Admin: 08/05/17 21:53 Dose: 80 mg Sodium Chloride () 5 - 30 ml IV UD PRN PRN Reason: SALINE FLUSH Last Admin: 08/05/17 20:08 Dose: 10 ml Medical Necessity - Tobacco Use Smoking Status: Former smoker Assessment/Plan 1. Chest pain; this most likely represents angina, status abnormal and she would undergo left heart catheterization on Tuesday. 2. Coronary artery disease status post CABG; will obtain records from [facility]. 3. Peripheral vascular disease status post Left CEA.l 4. paroxysmal Afib;m heart rate is controlled, she is on Metoprolol for rate control, her INR is 3.2, would need to hold anticoagulation for her heart cath.#4 sick 5 hypertension; this is controlled. 6 hyperlipidemia; he is on a statin. 7 Old stroke; she is on Aspirin, Coumadin and statins for secondary stroke prevention. 8. sinus syndrome ; s/p PPM placement. Code Visit Inpatient E&M: 39724 Subs Hosp L2
--- NOTE | 2017-08-06 14:32 | DT_ITS ---
This patient was seen during an EMR downtime August 08, 2017 - August 15, 2017. This patient may have a combination of paper and electronic documentation or all paper documentation. All documentation is viewable within the e-chart portion of [employer] for each patient visit.
[2017-08-06] MEDS: Clopidogrel Bisulfate 300 MG Tablet PO (14:57)
[2017-08-06] MEDS: guaiFENesin 10 ML UDC (200MG/10ML) PO (19:22)
[2017-08-06] MEDS: Acetaminophen 325 MG Tablet 650 MG PO (19:22)
[2017-08-06] MEDS: Metoprolol Tartrate 25 MG Tablet 12.5 MG PO (21:10)
[2017-08-06] MEDS: Pravastatin 80 MG Tablet PO (21:10)
[2017-08-07] VITALS (15 sets, daily range): BP systolic 112–130; BP diastolic 34–62; PULSE 59–68; RESP 16–20; TEMP 36.6–37.1; O2SAT 95–99
[2017-08-07] MEDS: 0.9% NaCl Peripheral Flush Adult/Peds IV (02:42)
[2017-08-07 05:26] LABS: Hematocrit 37.2 % (37-47); Hemoglobin 12.1 g/dl (12.0-15.0); Mean Corp Hgb Conc 32.5 g/gl (32-36); Mean Corpuscular Hgb 31.3 pg (27.0-32.0); Mean Corpuscular Volume 96.4 fL (81-99); Mean Platelet Vol. 12.7 fl (6.2-12.0); Platelet Count 146 K/mm3 (150-450); RBC Distribution Width CV 13.1 % (11.6-14.6); RBC Distribution Width SD 44.6 fl (35.1-43.9); Red Blood Count 3.86 M/mm3 (4.2-5.4); White Blood Count 6.4 K/mm3 (4.4-11.0)
[2017-08-07] MEDS: Acetaminophen 325 MG Tablet 650 MG PO ×2 (05:29→21:57)
[2017-08-07 05:40] LABS: Scan Indicated on CBC? Y/N NO
[2017-08-07 05:44] LABS: International Normalized Ratio 2.9; Prothrombin Time (Protime)PT. 30.3 SECONDS (11.7-14.9)
[2017-08-07] MEDS: Ipratropium/Albuterol Sulfate 3 ML AMPUL.NEB INHALATION ×3 (07:30→19:12)
[2017-08-07] MEDS: Budesonide Respules 0.5 MG/2 ML AMPUL.NEB. INHALATION ×2 (07:31→19:12)
[2017-08-07] MEDS: Aspirin 81 MG TAB.CHEW PO (08:54)
[2017-08-07] MEDS: Metoprolol Tartrate 25 MG Tablet 12.5 MG PO (09:00)
[2017-08-07] MEDS: Isosorbide Mononitrate 20 MG Tablet 10 MG PO ×2 (09:00→21:57)
[2017-08-07] MEDS: Lisinopril 5 MG Tablet PO (09:00)
[2017-08-07] MEDS: Clopidogrel Bisulfate 75 MG Tablet PO (09:00)
--- NOTE | 2017-08-07 09:24 | PCM.CONS.C ---
Problem List (1) Hx of CABG Status: Chronic Comment: 06/29/2006 with SANDHU to LAD, SVG to diagonal, & SVG to RCA (2) Carotid artery disease Status: Chronic Qualifiers: Comment: S/P left carotid endarterectomy June 2006; (3) Atherosclerosis of [place] coronary artery of [place] heart without angina pectoris Status: Chronic Comment: S/P CABG 06/29/2006 with SANDHU to LAD, SVG to diagonal, & SVG to RCA; PCI to prox LAD 06/2006 post CABG; (4) Paroxysmal atrial fibrillation Status: Chronic (5) HTN (hypertension) Status: Chronic Qualifiers: (6) PVD (peripheral vascular disease) Status: Chronic Comment: ? bilateral LE stents (7) HLD (hyperlipidemia) Status: Chronic Qualifiers: (8) Sick sinus syndrome with tachycardia Status: Chronic Comment: S/P Pacemaker implantation 04/09/2013; (9) Pacemaker Status: Chronic Reason for Consult Date of Consultation: 08/07/17 Reason for Consultation: Chest pain, shortness of breath, dyspnea on exertion, coronary artery disease status post bypass surgery, peripheral vascular disease, hypertension, hypercholesterolemia History of Present Illness: The patient is a 67 year old F, patient of Dr. Mercer, last seen in the office by 1 of her BRAKE OPERATOR HELPER's on 09/15/16. Patient has a history of hypertension, hypercholesterolemia, coronary artery disease status post three-vessel bypass surgery in 2006 at [facility]. At that time she received a SANDHU to the diagonal, saphenous vein graft to the obtuse marginal, and a saphenous vein graft to the PDA. Patient has several subsequent catheterizations and reports that she had a stent placed to the LAD soon after her bypass surgery. Her most recent catheterization took place by Dr. Emery on 04/02/13. At that time her SANHDU to her diagonal was found to be very small, with competitive flow down to the [place] LAD, and was reportedly atretic by catheterization at [facility] previous to that., her saphenous vein graft to the OM was 100% occluded, and her saphenous vein graft to the PDA was widely patent. Her EF at that time was 65%. On further history the patient has a approximately 2-3 pack smoking history per day for the past 50 years, quit around 4 years ago. She has known COPD but is not on oxygen at home. In addition at the time of her bypass surgery in 2006 she underwent left-sided carotid endarterectomy. Patient was in normal health up until the day of admission when she developed chest burning sensation which lasted about 45 minutes with associated shortness of breath, similar to her previous anginal symptoms. She did not take any sublingual nitroglycerin. She was admitted and ruled out for myocardial infarction, and underwent a non-walking nuclear stress test yesterday which demonstrated evidence of anterior and lateral ischemia. Her EKG on admission showed atrial paced rhythm with normal ventricular response and a right bundle branch pattern and questionable anterior ischemia. On further history she required a pacemaker subsequent to her bypass surgery which took place about 4 years ago, and is on chronic Coumadin therapy for atrial fibrillation. Patient is remained chest pain-free since admission. [] Past Medical History Allergies/Adverse Reactions: Allergies atorvastatin calcium [From Lipitor] Allergy (Verified 08/05/17 16:34) Hives gluten Allergy (Verified 08/05/17 19:09) Food Allergy metoprolol succinate [From Toprol XL] Allergy (Verified 08/05/17 16:34) Rash niacin [From Niaspan Extended-Release] Allergy (Verified 08/05/17 16:34) Rash Penicillins Allergy (Verified 08/05/17 16:34) Rash Sulfa (Sulfonamide Antibiotics) Allergy (Verified 08/05/17 16:34) Itching atorvastatin Adverse Reaction (Severe, Verified 08/05/17 16:34) Unknown radionuclide Allergy (Uncoded 08/05/17 19:14) It almost killed me stress test radionuclide Home Medications: Ambulatory Orders Medication Instructions Recorded Aspirin [Aspirin, Baby] 81 mg PO DAILY@0800 08/23/13 Isosorbide Mononitrate [Monoket] 10 mg PO BID 08/23/13 Metoprolol Tartrate [Lopressor 12.5 mg PO BID 08/23/13 (beta juwan)] Pravastatin [Pravachol] 80 mg PO QHS 08/23/13 Meloxicam [Mobic] 15 mg PO DAILY 03/01/17 budesonide-formoterol HFA 160 2 puff INHALATION Q12H 03/29/17 mcg-4.5 mcg/actuation aerosol inhaler cetirizine 10 mg tablet 10 mg PO DAILY tab 03/29/17 nitroglycerin 0.4 mg sublingual 0.4 mg SUBLINGUAL Q5M PRN 03/29/17 tablet potassium chloride ER 10 mEq 20 meq PO DAILY #60 tab 04/07/17 tablet,extended release warfarin 2.5 mg tablet 2.5 mg PO MOTUWETH 06/25/17 Enalapril Maleate 2.5 mg PO BID 08/05/17 Mometasone/Formoterol [Dulera 200 1 inh IH BID PRN 08/05/17 Mcg/5 Mcg Inhaler] Warfarin [Coumadin (PBKC)] 5 mg PO SUFRSA 08/05/17 Past Medical History (Chronic Problems): Chronic Problems Hx of CABG (Chronic) 06/29/2006 with SANDHU to LAD, SVG to diagonal, & SVG to RCA Carotid artery disease (Chronic) S/P left carotid endarterectomy June 2006; Atherosclerosis of [place] coronary artery of [place] heart without angina pectoris (Chronic) S/P CABG 06/29/2006 with SANDHU to LAD, SVG to diagonal, & SVG to RCA; PCI to prox LAD 06/2006 post CABG; Paroxysmal atrial fibrillation (Chronic) CAD (coronary artery disease) (Chronic) cabg x 3 1999 03 stent cath 2006 HTN (hypertension) (Chronic) PVD (peripheral vascular disease) (Chronic) ? bilateral LE stents HLD (hyperlipidemia) (Chronic) Sick sinus syndrome with tachycardia (Chronic) S/P Pacemaker implantation 04/09/2013; Cerebrovascular disease (Chronic) hx stroke mild residual left hemiparesis s/p left CEA 2006 mild-mod external carotid disease 05/18 Pacemaker (Chronic) Bradycardia (Chronic) Chronic back pain (Chronic) Tobacco use (Chronic) Depression with anxiety (Chronic) Surgical History: coronary bypass surgery, - - Left carotid endarterectomy, PCI, Hysterectomy, Cholecystectomy, CABG, BL LE stents. 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 Denies: Chest Discomfort, Orthopnea, PND, Peripheral Edema, Palpitations, Lightheadedness, Dizziness, Near Syncope, Syncope Respiratory: Denies: Cough, Sputum Production, Hemoptysis Gastrointestinal: Denies: Hematemesis, Hematochezia, Melena Genitourinary: Denies: Dysuria, Hematuria Skin: Denies: Rash Subjectve: Patient resting comfortably, no acute distress. Objective: Vital Signs Temp Pulse Resp BP Pulse Ox 98.3 F 64 18 130/46 H 97 08/07/17 08:35 08/07/17 09:00 08/07/17 08:35 08/07/17 09:00 08/07/17 08:35 Oxygen Delivery Method Room Air Intake and Output for Last 24 Hours 08/05/17 08/06/17 08/07/17 23:59 23:59 23:59 Intake Total 800 / 1553 440 / 440 Output Total 500 / 500 Balance 300 / 1053 440 / 440 General: Awake, Alert, Oriented x 3 HEENT: PERRL, EOMI, Sclera Non Icteric Neck: Supple, Good ROM, No Lymph Node Enlargement Lungs: Clear to auscultation Cardiovascular: Regular Rhythm, Premature Ectopic Beats, Normal S1, Normal S2, No Murmurs, No Rubs, No Gallops Vascular: No Carotid Bruits, Normal Femoral Pulses, Normal Radial Pulses, Normal Dorsalis Pedal Pulse, Normal Posterior Tibial Pulses Abdomen: Bowel Sounds Present, Soft, Non Tender, No HSM, No Organomegaly Extremities: No Cyanosis, No Clubbing, No edema Neurological: No Focal Motor or Sensory Deficit 08/07/17 05:03: WBC 6.4, RBC 3.86 L, Hgb 12.1, Hct 37.2, MCV 96.4, MCH 31.3, MCHC 32.5, RDW 13.1, RDW Differential 44.6 H, Plt Count 146 L, MPV 12.7 H 08/07/17 05:03: PT 30.3 H, INR 2.9 Rhythm: EKG: ECHO: Stress Test: Cardiac Cath: Pending PCI: CT Surgery: Holter monitor: EPS: PPM: CXR: Chest CT Scan: Assessment/Plan 1. Coronary artery disease: The patient presents with unstable anginal symptoms similar to her previous angina with associated shortness of breath and dyspnea on exertion despite being adequately anticoagulated. She underwent a non-walking nuclear stress test yesterday which demonstrated anterior ischemia in the same territory of her previous LAD stent and diminutive SANDHU to LAD. At this point the patient's INR is greater than 1.8, would recommend holding her Coumadin which is been done since yesterday. In addition I recommend vitamin K 2.5 mg ?1 now in an attempt to reduce her INR to therapeutic levels for her catheterization. If her INR is less than 1.8, we can proceed with left her catheterization and graft angiography. In addition the patient was loaded with Plavix 300 mg ?1 yesterday and 75 mg p.o. daily in addition to daily baby aspirin. If the patient does not require intervention we will discontinue her Plavix and continue baby aspirin and Coumadin going forward. The risks/benefits of the procedure were thoroughly explained to the patient including specific attention to lack of on-site surgical backup, and the patient has agreed to proceed. 2. Atrial fibrillation: Patient is currently rate controlled with her pacemaker, and is on chronic Coumadin therapy. Will restart Coumadin therapy once left her catheterization is been completed. 3. Tobacco cessation: Patient reports that she quit tobacco about 4 years ago. I encouraged her to remain tobacco free. 4. Hyperlipidemia: Given the patient's severe cardiovascular disease she requires aggressive LDL reduction. Recommend fasting lipid profile to ensure that her LDL is less than 70. Continue Pravachol for now. 5. Thank you very much for the opportunity to participate in the cardiac care of your patient. Consultation time took place between 8 AM and 8:30 AM. Code Visit Inpatient E&M: [id number] In Hosp L2
--- NOTE | 2017-08-07 09:34 | CON.PCM_ITS ---
Problem List (1) Hx of CABG Status: Chronic Comment: 06/29/2006 with SANDHU to LAD, SVG to diagonal, & SVG to RCA (2) Carotid artery disease Status: Chronic Qualifiers: Comment: S/P left carotid endarterectomy June 2006; (3) Atherosclerosis of [place] coronary artery of [place] heart without angina pectoris Status: Chronic Comment: S/P CABG 06/29/2006 with SANDHU to LAD, SVG to diagonal , & SVG to RCA; PCI to prox LAD 06/2006 post CABG; (4) Paroxysmal atrial fibrillation Status: Chronic (5) HTN (hypertension) Status: Chronic Qualifiers: (6) PVD (peripheral vascular disease) Status: Chronic Comment: ? bilateral LE stents (7) HLD (hyperlipidemia) Status: Chronic Qualifiers: (8) Sick sinus syndrome with tachycardia Status: Chronic Comment: S/P Pacemaker implantation 04/09/2013; (9) Pacemaker Status: Chronic Reason for Consult Date of Consultation: 08/07/17 Reason for Consultation: Chest pain, shortness of breath, dyspnea on exertion, coronary artery disease status post bypass surgery, peripheral vascular disease , hypertension, hypercholesterolemia History of Present Illness: The patient is a 67 year old F, patient of Dr. Mercer, last seen in the office by 1 of her MEDICINAL PLANT PICKER's on 09/15/16. Patient has a history of hypertension, hypercholesterolemia, coronary artery disease status post three-vessel bypass surgery in 2006 at [facility]. At that time she received a SANDHU to the diagonal, saphenous vein graft to the obtuse marginal, and a saphenous vein graft to the PDA. Patient has several subsequent catheterizations and reports that she had a stent placed to the LAD soon after her bypass surgery. Her most recent catheterization took place by Dr. Emery on 04/02/13. At that time her SANDHU to her diagonal was found to be very small, with competitive flow down to the [place] LAD, and was reportedly atretic by catheterization at [facility] previous to that., her saphenous vein graft to the OM was 100% occluded, and her saphenous vein graft to the PDA was widely patent. Her EF at that time was 65%. On further history the patient has a approximately 2-3 pack smoking history per day for the past 50 years, quit around 4 years ago. She has known COPD but is not on oxygen at home. In addition at the time of her bypass surgery in 2006 she underwent left-sided carotid endarterectomy. Patient was in normal health up until the day of admission when she developed chest burning sensation which lasted about 45 minutes with associated shortness of breath, similar to her previous anginal symptoms. She did not take any sublingual nitroglycerin. She was admitted and ruled out for myocardial infarction, and underwent a non-walking nuclear stress test yesterday which demonstrated evidence of anterior and lateral ischemia. Her EKG on admission showed atrial paced rhythm with normal ventricular response and a right bundle branch pattern and questionable anterior ischemia. On further history she required a pacemaker subsequent to her bypass surgery which took place about 4 years ago, and is on chronic Coumadin therapy for atrial fibrillation. Patient is remained chest pain-free since admission. [] Past Medical History Allergies/Adverse Reactions: Allergies atorvastatin calcium [From Lipitor] Allergy (Verified 08/05/17 16:34) Hives gluten Allergy (Verified 08/05/17 19:09) Food Allergy metoprolol succinate [From Toprol XL] Allergy (Verified 08/05/17 16:34) Rash niacin [From Niaspan Extended-Release] Allergy (Verified 08/05/17 16:34) Rash Penicillins Allergy (Verified 08/05/17 16:34) Rash Sulfa (Sulfonamide Antibiotics) Allergy (Verified 08/05/17 16:34) Itching atorvastatin Adverse Reaction (Severe, Verified 08/05/17 16:34) Unknown radionuclide Allergy (Uncoded 08/05/17 19:14) It almost killed me stress test radionuclide Home Medications: Ambulatory Orders Medication Instructions Recorded Aspirin [Aspirin, Baby] 81 mg PO DAILY@0800 08/23/13 Isosorbide Mononitrate [Monoket] 10 mg PO BID 08/23/13 Metoprolol Tartrate [Lopressor 12.5 mg PO BID 08/23/13 (beta juwan)] Pravastatin [Pravachol] 80 mg PO QHS 08/23/13 Meloxicam [Mobic] 15 mg PO DAILY 03/01/17 budesonide-formoterol HFA 160 2 puff INHALATION Q12H 03/29/17 mcg-4.5 mcg/actuation aerosol inhaler cetirizine 10 mg tablet 10 mg PO DAILY tab 03/29/17 nitroglycerin 0.4 mg sublingual 0.4 mg SUBLINGUAL Q5M PRN 03/29/17 tablet potassium chloride ER 10 mEq 20 meq PO DAILY #60 tab 04/07/17 tablet,extended release warfarin 2.5 mg tablet 2.5 mg PO MOTUWETH 06/25/17 Enalapril Maleate 2.5 mg PO BID 08/05/17 Mometasone/Formoterol [Dulera 200 1 inh IH BID PRN 08/05/17 Mcg/5 Mcg Inhaler] Warfarin [Coumadin (PBKC)] 5 mg PO SUFRSA 08/05/17 Past Medical History (Chronic Problems): Chronic Problems Hx of CABG (Chronic) 06/29/2006 with SANDHU to LAD, SVG to diagonal, & SVG to RCA Carotid artery disease (Chronic) S/P left carotid endarterectomy June 2006; Atherosclerosis of [place] coronary artery of [place] heart without angina pectoris (Chronic) S/P CABG 06/29/2006 with SANDHU to LAD, SVG to diagonal, & SVG to RCA; PCI to prox LAD 06/2006 post CABG; Paroxysmal atrial fibrillation (Chronic) CAD (coronary artery disease) (Chronic) cabg x 3 1999 03 stent cath 2006 HTN (hypertension) (Chronic) PVD (peripheral vascular disease) (Chronic) ? bilateral LE stents HLD (hyperlipidemia) (Chronic) Sick sinus syndrome with tachycardia (Chronic) S/P Pacemaker implantation 04/09/2013; Cerebrovascular disease (Chronic) hx stroke mild residual left hemiparesis s/p left CEA 2006 mild-mod external carotid disease 05/18 Pacemaker (Chronic) Bradycardia (Chronic) Chronic back pain (Chronic) Tobacco use (Chronic) Depression with anxiety (Chronic) Surgical History: coronary bypass surgery, - - Left carotid endarterectomy, PCI , Hysterectomy, Cholecystectomy, CABG, BL LE stents. 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 Denies: Chest Discomfort, Orthopnea, PND, Peripheral Edema, Palpitations, Lightheadedness, Dizziness, Near Syncope, Syncope Respiratory: Denies: Cough, Sputum Production, Hemoptysis Gastrointestinal: Denies: Hematemesis, Hematochezia, Melena Genitourinary: Denies: Dysuria, Hematuria Skin: Denies: Rash Subjectve: Patient resting comfortably, no acute distress. Objective: Vital Signs Temp Pulse Resp BP Pulse Ox 98.3 F 64 18 130/46 H 97 08/07/17 08:35 08/07/17 09:00 08/07/17 08:35 08/07/17 09:00 08/07/17 08:35 Oxygen Delivery Method Room Air Intake and Output for Last 24 Hours 08/05/17 08/06/17 08/07/17 23:59 23:59 23:59 Intake Total 800 / 1553 440 / 440 Output Total 500 / 500 Balance 300 / 1053 440 / 440 General: Awake, Alert, Oriented x 3 HEENT: PERRL, EOMI, Sclera Non Icteric Neck: Supple, Good ROM, No Lymph Node Enlargement Lungs: Clear to auscultation Cardiovascular: Regular Rhythm, Premature Ectopic Beats, Normal S1, Normal S2, No Murmurs, No Rubs, No Gallops Vascular: No Carotid Bruits, Normal Femoral Pulses, Normal Radial Pulses, Normal Dorsalis Pedal Pulse, Normal Posterior Tibial Pulses Abdomen: Bowel Sounds Present, Soft, Non Tender, No HSM, No Organomegaly Extremities: No Cyanosis, No Clubbing, No edema Neurological: No Focal Motor or Sensory Deficit 08/07/17 05:03: WBC 6.4, RBC 3.86 L, Hgb 12.1, Hct 37.2, MCV 96.4, MCH 31.3, MCHC 32.5, RDW 13.1, RDW Differential 44.6 H, Plt Count 146 L, MPV 12.7 H 08/07/17 05:03: PT 30.3 H, INR 2.9 Rhythm: EKG: ECHO: Stress Test: Cardiac Cath: Pending PCI: CT Surgery: Holter monitor: EPS: PPM: CXR: Chest CT Scan: Assessment/Plan 1. Coronary artery disease: The patient presents with unstable anginal symptoms similar to her previous angina with associated shortness of breath and dyspnea on exertion despite being adequately anticoagulated. She underwent a non-walking nuclear stress test yesterday which demonstrated anterior ischemia in the same territory of her previous LAD stent and diminutive SANDHU to LAD. At this point the patient's INR is greater than 1.8, would recommend holding her Coumadin which is been done since yesterday. In addition I recommend vitamin K 2.5 mg ?1 now in an attempt to reduce her INR to therapeutic levels for her catheterization. If her INR is less than 1.8, we can proceed with left her catheterization and graft angiography. In addition the patient was loaded with Plavix 300 mg ?1 yesterday and 75 mg p.o. daily in addition to daily baby aspirin. If the patient does not require intervention we will discontinue her Plavix and continue baby aspirin and Coumadin going forward. The risks/benefits of the procedure were thoroughly explained to the patient including specific attention to lack of on-site surgical backup, and the patient has agreed to proceed. 2. Atrial fibrillation: Patient is currently rate controlled with her pacemaker , and is on chronic Coumadin therapy. Will restart Coumadin therapy once left her catheterization is been completed. 3. Tobacco cessation: Patient reports that she quit tobacco about 4 years ago. I encouraged her to remain tobacco free. 4. Hyperlipidemia: Given the patient's severe cardiovascular disease she requires aggressive LDL reduction. Recommend fasting lipid profile to ensure that her LDL is less than 70. Continue Pravachol for now. 5. Thank you very much for the opportunity to participate in the cardiac care of your patient. Consultation time took place between 8 AM and 8:30 AM. Code Visit Inpatient E&M: [id number] In Hosp L2
[2017-08-07] MEDS: Phytonadione (Vit K) 10 MG/ML Ampul 2.5 MG PO (10:52)
--- NOTE | 2017-08-07 13:53 | PCM.PN.HOSP ---
Subjective: CC: Chest pain Objective: The patient presented with chest pain, her stress test is abnormal and she would undergo left heart catheterization tomorrow. She now denies any chest pain, shortness of breath or palpitations. Vitals/I&O's: Vital Signs Temp Pulse Resp BP Pulse Ox 98.3 F 63 18 130/46 H 97 08/07/17 08:35 08/07/17 11:13 08/07/17 08:35 08/07/17 09:00 08/07/17 08:35 Oxygen Delivery Method Room Air Intake and Output for Last 24 Hours 08/05/17 08/06/17 08/07/17 23:59 23:59 23:59 Intake Total 800 / 1553 1440 / 1440 Output Total 500 / 500 250 / 250 Balance 300 / 1053 1190 / 1190 General: Alert, Oriented x3 HEENT: Atraumatic Oral: Moist Mucosa Neck: Supple Lungs: Clear to auscultation Cardiovascular: Regular rate, Normal S1, Normal S2 Abdomen: Bowel Sounds Present Extremities: No clubbing Laboratory Results 08/07/17 05:03: WBC 6.4, RBC 3.86 L, Hgb 12.1, Hct 37.2, MCV 96.4, MCH 31.3, MCHC 32.5, RDW 13.1, RDW Differential 44.6 H, Plt Count 146 L, MPV 12.7 H 08/07/17 05:03: PT 30.3 H, INR 2.9 Current Medications Acetaminophen (Tylenol) 650 mg PO Q6H PRN PRN PRN Reason: PAIN Last Admin: 08/07/17 05:29 Dose: 650 mg Albuterol Sulfate (Ventolin Aerosols) 2.5 mg INHALATION Q2H PRN PRN PRN Reason: Shortness of breath, wheezing Albuterol/Ipratropium (Duoneb) 3 ml INHALATION Q6H.RT [facility] Last Admin: 08/07/17 13:42 Dose: 3 ml Aspirin (Aspirin, Baby) 81 mg PO DAILY@0800 [facility] Last Admin: 08/07/17 08:54 Dose: 81 mg Budesonide (Pulmicort Aerosol) 0.5 mg INHALATION Q12H.RT [facility] Last Admin: 08/07/17 07:31 Dose: 0.5 mg Clopidogrel Bisulfate (Plavix) 75 mg PO DAILY [facility] Last Admin: 08/07/17 09:00 Dose: 75 mg Diphenhydramine HCl (Benadryl) 50 mg PO X1 ONE Stop: 08/08/17 06:01 Guaifenesin (Robitussin) 10 ml PO Q6H PRN PRN PRN Reason: COUGH Last Admin: 08/06/17 19:22 Dose: 10 ml Sodium Chloride () 250 mls @ 15 mls/hr IV .[id number] PRN PRN Reason: SALINE FLUSH Sodium Chloride () 1,000 mls @ 0 mls/hr IV .Q0M ROBERT PRN Reason: KVO Isosorbide Mononitrate (Monoket) 10 mg PO BID [facility] Last Admin: 08/07/17 09:00 Dose: 10 mg Lisinopril (Zestril) 5 mg PO DAILY [facility] Last Admin: 08/07/17 09:00 Dose: 5 mg Magnesium Hydroxide (Milk Of Magnesia) 30 ml PO DAILY PRN PRN Reason: Constipation Metoprolol Tartrate (Lopressor (Beta Zoey)) 12.5 mg PO BID [facility] Last Admin: 08/07/17 09:00 Dose: 12.5 mg Nitroglycerin (Nitrostat) 0.4 mg SUBLINGUAL Q5M PRN PRN Reason: CHEST PAIN Ondansetron HCl (Zofran) 4 mg IV Q6H PRN PRN PRN Reason: NAUSEA/VOMITING Potassium Chloride (K-Dur) 20 meq PO DAILY [facility] Last Admin: 08/07/17 09:00 Dose: 20 meq Pravastatin Sodium (Pravachol) 80 mg PO QHS [facility] Last Admin: 08/06/17 21:10 Dose: 80 mg Sodium Chloride () 5 - 30 ml IV UD PRN PRN Reason: SALINE FLUSH Last Admin: 08/07/17 02:42 Dose: 10 ml Medical Necessity - Tobacco Use Smoking Status: Former smoker Assessment/Plan This is a 67-year-old female with history of coronary artery disease status post CABG who presented with chest pain , she is found to have an abnormal stress test and she is scheduled for left heart catheterization tomorrow. 1. unstable angina; will continue current medical therapy, the patient would undergo left heart catheterization tomorrow. 2. Coronary artery disease status post CABG; she now presents with the above, will obtain records from [facility]. 3. Peripheral vascular disease status post Left CEA in 06/2006. 4. paroxysmal Afib; she is on Metoprolol for rate control, she is on Coumadin for stroke prevention, we will reverse her INR with vitamin K for heart cath tomorrow. 5 hypertension; this is controlled. 6 hyperlipidemia; he is on a statin. 7 Old stroke; she is on Aspirin, Coumadin and statins for secondary stroke prevention. 8. sinus syndrome ; s/p PPM placement.
[2017-08-07] MEDS: Pravastatin 80 MG Tablet PO (21:57)
[2017-08-08 03:00] VITALS: PULSE 72
--- NOTE | 2017-08-08 05:55 | EKG12_ITS ---
Test Reason : AM EKG Blood Pressure : / mmHG Vent. Rate : 061 BPM Atrial Rate : 061 BPM P-R Int : 192 ms QRS Dur : 082 ms QT Int : 444 ms P-R-T Axes : 070 043 067 degrees QTc Int : 446 ms Atrial-paced rhythm Nonspecific ST and T wave abnormality Abnormal ECG Confirmed by KAELYN MARIN, SEFERINO ([id number]), staff editor TISH VALERA ([id number] on 08/19/2017 2:15:08 PM Referred By: OLIVIA Confirmed By:SEFERINO ART MD
[2017-08-11 17:13] LABS: Absolute Neutrophil Count 3.5 X10^3/uL (2.0-7.7); Basophil% 0.5 % (0-1); Eosinophils% 3.6 % (0-5); Hematocrit 39.4 % (37-47); Hemoglobin 12.6 g/dl (12.0-15.0); Lymphocyte % 29.7 % (19-41); Mean Corpuscular Hgb 30.7 pg (27.0-32.0); Mean Corpuscular Volume 96.1 fL (81-99); Neutrophil # 3.52 X10^3/uL (2.7-7.7); POSITIVE COUNT NO; POSITIVE DIFFERENTIAL NO; POSITIVE MORPHOLOGY NO; Platelet Count 160 K/mm3 (150-450); RBC Distribution Width CV 13.3 % (11.6-14.6); RBC Distribution Width SD 45.8 fl (35.1-43.9); White Blood Count 6.4 K/mm3 (4.4-11.0)
[2017-08-11 17:52] LABS: International Normalized Ratio 1.5; Partial Thromboplast Time 35.1 Seconds (24.1-36.2); Prothrombin Time (Protime)PT. 17.8 SECONDS (11.7-14.9)
--- NOTE | 2017-08-12 16:57 | CL.D_ITS ---
Patient Name: DOT JOSEPH Study Date: 08/08/2017 Performing: Tian Emery MD Ht: 64 inches 162.56 cm : 1950 Wt: 164.2 lbs 74.389 kg Age: 67 Gender: female BSA: 1.8 PROCEDURE(S) PERFORMED [id number]/COR/LV/CABG CLINICAL PROFILE AND INDICATIONS Indications: Worsening Angina Heart Failure: None Stress/Imaging Stress/Image Study Performed: No Angina Classification Anginal Classification w/in 2 Weeks: CCS III CAD Presentations: Unstable angina. CONCLUSIONS Elevated Left Ventricular End Diastolic Pressure Normal LV size, wall motion,and systolic function LVEF: by LV gram 60 % [place] Multivessel CAD SANDHU to LAD: patent SVG to OM: occluded (proximal / chronic) SVG to RCA: patent RECOMMENDATIONS Risk factor modification Medical therapy DESCRIPTION OF PROCEDURE The patient arrived to the procedure lab. The risks and benefits of the procedure as well as a full d escription of our services here and current unavailability of surgical backup were fully explained to the patient and/or their significant other prior to the catheterization. The Timeout was completed, verifying the correct patient and procedure. The patient's procedural site was prepped and draped in the usual fashion. Local anesthetic was given subcutaneously to right groin region with Lidocaine 2%. Using a modified Seldinger technique, arterial access was obtained via the right femoral artery, a 4 Fr sheath was inserted Left Coronary Artery selective angiography was performed in multiple views us ing a 4 Fr. JL5 catheter. Right Coronary Artery selective angiography was then performed in multiple views using a 4 Fr. 3DRC catheter. Saphenous Vein graft to the Cx/OM 1 selective angiography was perf ormed in multiple views using a 4 Fr. 3DRC catheter. graft was 100 percent occluded. Left internal ma mmary artery graft to the LAD selective angiography was performed in multiple views using a 4 Fr. JR4 catheter. Saphenous Vein graft to the RCA selective angiography was performed in multiple views usin g a 4 Fr. RCB catheter. Left Ventriculography was performed in KENDRICK projection using a 4 Fr. Pigtail c atheter. LV to AO pullback pressures were then recorded.The arterial sheath was pulled and manual com pression applied until hemostasis is achieved. CORONARY ANGIOGRAPHY LEFT HEART ASSESSMENT Left Ventricular Ejection Fraction: by LV Gram 60 % Normal LV wall motion Elevated Left Ventricular End Diastolic Pressure LVEDP: 32 mmHg LEFT MAIN: Mild luminal irregularities LEFT ANTERIOR DECENDING ARTERY: PROX LAD: Previously placed stent has an instent 10-25 % restenosis MID LAD: Mid to Distal: small vessel: fills from both antegrade flow and SANDHU graft flow with no luz ographically significant appearing disease distal to the graft attachment CIRCUMFLEX ARTERY: OSTIAL CIRC: 10-25 % Stenosis MID CIRC: Mild luminal irregularities OM 1: Proximal - Mild luminal irregularities OM 2: Proximal - Mild luminal irregularities RIGHT CORONARY ARTERY: PROX RCA: is occluded RT PDA: Proximal - RPDA fills from the SVG graft with no angiogrphically significant appearing diseas e distal to the graft attachment GRAFTS: SANDHU graft to the Mid LAD is patent [SANDHU graft is a small caliber vessel] Saphenous Vein graft to the 1st OM is totally occluded [Proximal: Chronic] Saphenous Vein graft to the RPDA is patent with no angiographically significant appearing disease dis chirag to the graft attachment VALVE FINDINGS: Normal Aortic Valve function Normal Mitral Valve function AORTIC ROOT: Angiographically normal COMPLICATIONS No Complications PROCEDURE MEDICATIONS Versed 1 mg IV Oxygen: 2 L/min via nasal cannula Baby Aspirin (81mg) 1 Tabs PO @ 08/08/2017 10:17:10 Plavix 75 mg PO 08/08/2017 10:17:18 SUMMARY OF HEMODYNAMIC DATA Time AIR REST ECG 10:16:18 AO 158/77 (107) SA 10:45:12 LV 178/9, 37 11:01:02 LV 179/7, 32 11:01:10 LV 189/24, 43 11:02:31 LV 192/20, 35 11:02:39 LVp 195/14, 36 11:02:45 AOp 190/82 (124) 11:02:50 Signed By Tian Emery MD On 08/12/2017 14:11:32 Signed By Tian Emery MD On 08/08/2017 11:49:56 Tian Emery MD
[2017-08-13 03:43] LABS: Prothrombin Time (Protime)PT. 14.6 SECONDS (11.7-14.9)
[2017-08-13 03:44] LABS: Hematocrit 39.5 % (37-47); Hemoglobin 12.7 g/dl (12.0-15.0); International Normalized Ratio 1.1; Mean Corp Hgb Conc 32.2 g/gl (32-36); Mean Corpuscular Hgb 30.8 pg (27.0-32.0); Mean Corpuscular Volume 95.9 fL (81-99); RBC Distribution Width CV 13.3 % (11.6-14.6); RBC Distribution Width SD 45.2 fl (35.1-43.9); Red Blood Count 4.12 M/mm3 (4.2-5.4)
[2017-08-13 03:45] LABS: Differential Comment SCANNED; Mean Platelet Vol. 13.2 fl (6.2-12.0); Platelet Count 182 K/mm3 (150-450); Scan Indicated on CBC? Y/N YES- FLAGS NOTED
[2017-08-13 07:08] LABS: Anion Gap 7 (5-15); BUN 7 mg/dL (7-18); BUN/Creat Ratio 7.8 RATIO (10-20); Calcium,Total 8.7 mg/dL (8.5-10.1); Chloride 109 mmol/L (98-107); EST Glomerular Filtration Rate 66 mL/min (>60); Est Glom Filt Rate - Afr Amer 80 mL/min (>60); Estimated Creatinine Clearance 52.38 ml/min; Glucose 109 mg/dL (74-106); Magnesium 1.8 mg/dL (1.6-2.6); Sodium Level 139 mmol/L (136-145)
[2017-08-17 14:33] LABS: Anion Gap 9 (5-15); BUN 7 mg/dL (7-18); BUN/Creat Ratio 6.9 RATIO (10-20); Calcium,Total 7.7 mg/dL (8.5-10.1); Chloride 111 mmol/L (98-107); Cholesterol 154 mg/dL (200); Creatinine, Serum 1.01 mg/dL (0.55-1.02); EST Glomerular Filtration Rate 58 mL/min (>60); Est Glom Filt Rate - Afr Amer 70 mL/min (>60); Estimated Creatinine Clearance 46.67 ml/min; Glucose 96 mg/dL (74-106); High Density Lipoprotein 44 mg/dL; Potassium 3.7 mmol/L (3.5-5.1); Sodium Level 145 mmol/L (136-145); Triglycerides 102 mg/dL; Very Low Density Lipoprotein 20 mg/dL (5-40)
== END 2017-08-09 12:50 | disposition home or self-care (01) | DRG 287 ==
LOC: ED 16:54 → PCU 18:39
PROVIDERS: Internal Medicine; Internal Medicine Cardiovascular Disease; Admitting Provider Hospitalist; Emergency Provider Emergency Medicine; PCP Family Medicine; Visit Provider Internal Medicine
DX: I25.110 Atherosclerotic heart disease of native coronary artery with unstable angina pectoris (principal); J44.1 Chronic obstructive pulmonary disease with (acute) exacerbation; J44.0 Chronic obstructive pulmonary disease with (acute) lower respiratory infection; J20.9 Acute bronchitis, unspecified; Z87.891 Personal history of nicotine dependence; I73.9 Peripheral vascular disease, unspecified; I48.0 Paroxysmal atrial fibrillation; E86.0 Dehydration; Z95.0 Presence of cardiac pacemaker; I10 Essential (primary) hypertension; E78.5 Hyperlipidemia, unspecified; I65.29 Occlusion and stenosis of unspecified carotid artery; Z86.73 Personal history of transient ischemic attack (TIA), and cerebral infarction without residual deficits; E11.9 Type 2 diabetes mellitus without complications; Z79.82 Long term (current) use of aspirin; Z79.01 Long term (current) use of anticoagulants; Z79.899 Other long term (current) drug therapy
CPT/HCPCS: 36415; 71045; 78452; 80048; 80061; 83735; 84484; 85025; 85027; 85610; 85730; 93005; 93017; 93459; 94640; 97116; 97162; 97165; 97530; 99152; 99153; 99283; A9500; J7030; A4216; C1769; C1894; J2405; J2785; Q9967

== ENCOUNTER 2017-09-09 14:48 | Outpatient (RCR) | payer MEDICARE, OTHER, SELFPAY ==
[2017-09-09 16:35] LABS: International Normalized Ratio 2.3; Prothrombin Time (Protime)PT. 25.2 SECONDS (11.7-14.9)
== END 2017-09-09 16:00 | disposition home or self-care (01) ==
LOC: LAB 14:48
PROVIDERS: PCP Family Medicine; Visit Provider Internal Medicine Cardiovascular Disease
DX: I48.0 Paroxysmal atrial fibrillation (principal); Z79.01 Long term (current) use of anticoagulants
CPT/HCPCS: 36415; 85610

== ENCOUNTER 2017-10-13 09:13 | Outpatient (RCR) | payer MEDICARE, OTHER, SELFPAY ==
[2017-10-13 11:14] LABS: International Normalized Ratio 2.6; Prothrombin Time (Protime)PT. 28.2 SECONDS (11.7-14.9)
== END 2017-10-13 11:00 | disposition home or self-care (01) ==
LOC: LAB 09:13
PROVIDERS: PCP Family Medicine; Visit Provider Internal Medicine Cardiovascular Disease
DX: I48.0 Paroxysmal atrial fibrillation (principal); Z79.01 Long term (current) use of anticoagulants
CPT/HCPCS: 36415; 85610

== ENCOUNTER → 2017-10-18 10:50 | Outpatient (CLI) | payer MEDICARE, OTHER, SELFPAY ==
[2017-10-18 12:23] LABS: AST(SGOT) 22 U/L (15-37); Alanine Aminotransfer ALT/SGPT 26 U/L (13-56); Albumin, Serum 3.4 g/dL (3.2-5.0); Alkaline Phosphatase 83 U/L (45-117); Bilirubin, Direct 0.12 mg/dL (0.00-0.30); Cholesterol 180 mg/dL (200); Globulin 3.5 g/dL (2.2-4.2); High Density Lipoprotein 44 mg/dL; Protein, Total 6.9 g/dL (6.4-8.2); Triglycerides 149 mg/dL; Very Low Density Lipoprotein 30 mg/dL (5-40)
== END ==
PROVIDERS: PCP Family Medicine; Visit Provider Physician Assistant Medical
DX: E78.5 Hyperlipidemia, unspecified (principal); Z79.899 Other long term (current) drug therapy
CPT/HCPCS: 36415; 80061; 80076

== ENCOUNTER 2017-12-02 14:01 | Outpatient (RCR) | payer MEDICARE, OTHER, SELFPAY ==
[2017-11-16 15:23] LABS: International Normalized Ratio 1.7; Prothrombin Time (Protime)PT. 19.8 SECONDS (11.7-14.9)
[2017-12-02 16:09] LABS: International Normalized Ratio 1.6; Prothrombin Time (Protime)PT. 19.2 SECONDS (11.7-14.9)
== END 2017-12-02 15:00 | disposition home or self-care (01) ==
LOC: LAB 14:01
PROVIDERS: PCP Family Medicine; Visit Provider Internal Medicine Cardiovascular Disease
DX: I48.0 Paroxysmal atrial fibrillation (principal); Z79.01 Long term (current) use of anticoagulants
CPT/HCPCS: 36415; 85610

== ENCOUNTER 2017-12-23 14:33 | Outpatient (RCR) | payer MEDICARE, OTHER, SELFPAY ==
[2017-12-09 15:06] LABS: International Normalized Ratio 1.8; Prothrombin Time (Protime)PT. 21.3 SECONDS (11.7-14.9)
[2017-12-23 16:38] LABS: International Normalized Ratio 2.7; Prothrombin Time (Protime)PT. 29.2 SECONDS (11.7-14.9)
== END 2017-12-23 16:00 | disposition home or self-care (01) ==
LOC: LAB 14:33
PROVIDERS: PCP Family Medicine; Referring Provider Internal Medicine Cardiovascular Disease; Visit Provider Internal Medicine Cardiovascular Disease
DX: I48.0 Paroxysmal atrial fibrillation (principal); Z79.01 Long term (current) use of anticoagulants
CPT/HCPCS: 36415; 85610

== ENCOUNTER 2018-02-06 12:42 | Outpatient (RCR) | payer MEDICARE, OTHER, SELFPAY ==
[2018-02-06 13:32] LABS: International Normalized Ratio 2.9; Prothrombin Time (Protime)PT. 30.1 SECONDS (11.7-14.9)
--- OUTSIDE RECORDS SUMMARY | 2018-04-01 19:20 | XMS RPT_ITS ---
:1950 Author Organization OHIP Support Name Relationship Address Phone MINH PIERCE Unavailable [address] + [place] [address] R Unavailable Unavailable Unavailable RAKICH, DELORES Unavailable [address] + [place] [address] MINH PIERCE Unavailable Unavailable + [place] [address] R Unavailable Unavailable Unavailable RAKICH, DELORES Unavailable Unavailable + [place] [address] MINH PIERCE Unavailable Unavailable + [place] [address] R Unavailable Unavailable Unavailable RAKICH, DELORES Unavailable Unavailable + [place] [address] MINH PIERCE Unavailable Unavailable + [place] [address] R Unavailable Unavailable Unavailable RAKICH, DELORES Unavailable Unavailable + [place] [address] MINH PIERCE Unavailable Unavailable + [place] [address] R Unavailable Unavailable Unavailable RAKICH, DELORES Unavailable Unavailable + [place] [address] MINH PIERCE Unavailable Unavailable + [place] [address] R Unavailable Unavailable Unavailable RAKICH, DELORES Unavailable Unavailable + [place] [address] MINH PIERCE Unavailable Unavailable + [place] [address] R Unavailable Unavailable Unavailable RAKICH, DELORES Unavailable Unavailable + [place] [address] MINH PIERCE Unavailable Unavailable + [place] [address] R Unavailable Unavailable Unavailable RAKICH, DELORES Unavailable Unavailable + [place] [address] MINH PIERCE Unavailable Unavailable + [place] [address] R Unavailable Unavailable Unavailable RAKICH, DELORES Unavailable Unavailable + [place] [address] MINH PIERCE Unavailable Unavailable + [place] [address] R Unavailable Unavailable Unavailable RAKICH, DELORES Unavailable Unavailable + [place] [address] MINH PIERCE Unavailable Unavailable + [place] [address] R Unavailable Unavailable Unavailable RAKICH, DELORES Unavailable Unavailable + [place] [address] MINH PIERCE Unavailable Unavailable + [place] [address] R Unavailable Unavailable Unavailable RAKICH, DELORES Unavailable Unavailable + [place] [address] MINH PIERCE Unavailable Unavailable + [place] [address] R Unavailable Unavailable Unavailable RAKICH, DELORES Unavailable Unavailable + [place] [address] MINH PIERCE Unavailable Unavailable + [place] [address] R Unavailable Unavailable Unavailable RAKICH, DELORES Unavailable Unavailable + [place] [address] MINH PIERCE Unavailable Unavailable + [place] [address] R Unavailable Unavailable Unavailable RAKICH, DELORES Unavailable Unavailable + [place] [address] MINH PIERCE Unavailable Unavailable + [place] [address] R Unavailable Unavailable Unavailable RAKICH, DELORES Unavailable Unavailable + [place] [address] MINH PIERCE Unavailable Unavailable + [place] [address] R Unavailable Unavailable Unavailable RAKICH, DELORES Unavailable Unavailable + [place] [address] MINH PIERCE Unavailable Unavailable + [place] [address] R Unavailable Unavailable Unavailable RAKICH, DELORES Unavailable Unavailable + [place] [address] MINH PIERCE Unavailable Unavailable + [place] [address] R Unavailable Unavailable Unavailable RAKICH, DELORES Unavailable Unavailable + [place] [address] MINH PIERCE Unavailable Unavailable + [place] [address] R Unavailable Unavailable Unavailable RAKICH, DELORES Unavailable Unavailable + [place] [address] MINH PIERCE Unavailable Unavailable + [place] [address] R Unavailable Unavailable Unavailable RAKICH, DELORES Unavailable Unavailable + [place] [address] MINH PIERCE Unavailable Unavailable + [place] [address] R Unavailable Unavailable Unavailable RAKICH, DELORES Unavailable Unavailable + [place] [address] MINH PIERCE Unavailable NA + [place] [address] R Unavailable Unavailable Unavailable RAKICH, DELORES Unavailable NA + [place] [address] MINH PIERCE Unavailable NA + [place], [place] R Unavailable Unavailable Unavailable RAKICH, DELORES Unavailable NA + [place], [place] MINH PIERCE Unavailable NA + [place], [place] R Unavailable Unavailable Unavailable RAKICH, DELORES Unavailable NA + [place], [place] MINH PIERCE Unavailable NA + [place], [place] R Unavailable Unavailable Unavailable RAKICH, DELORES Unavailable NA + [place], [place] MINH PIERCE Unavailable NA + [place], [place] R Unavailable Unavailable Unavailable RAKICH, DELORES Unavailable NA + [place], [place] MINH PIERCE Unavailable [address] [phone] [place] [address] R Unavailable Unavailable Unavailable RAKICH, DELORES Unavailable [address] + [address] [place] [address] MINH PIERCE Unavailable [address] [phone] [place] [address] R Unavailable Unavailable Unavailable DELORES ROGERS Unavailable [address] + [address] [place] [address] Care Team Providers Name Role Phone Tian Art Attending Unavailable Tian Art Referring Unavailable Jorge Luis, Ruslan Primary Care Unavailable Jorge Luis, Ruslan Primary Care Unavailable Alanna Kim Attending Unavailable Tian Art Attending Unavailable Jorge Luis, Ruslan Referring Unavailable Erasmo Luna Attending Unavailable Jorge Luis, Ruslan Referring Unavailable Jorge Luis, Ruslan Primary Care Unavailable Amarilis Griffiths Attending Unavailable Jorge Luis, Ruslan Referring Unavailable McleodCamila laughlin Attending Unavailable McleodCamila amaro Referring Unavailable Jorge Luis, Ruslan Primary Care Unavailable William Kraus Attending Unavailable William Kraus Referring Unavailable Jorge Luis, Ruslan Primary Care Unavailable Tian Art Attending Unavailable Tian Art Referring Unavailable Jorge Luis, Ruslan Primary Care Unavailable William Kraus Attending Unavailable William Kraus Referring Unavailable Jorge Luis, Ruslan Primary Care Unavailable Tian Art Attending Unavailable Tian Art Referring Unavailable Jorge Luis, Ruslan Primary Care Unavailable Tian Art Attending Unavailable Tian Art Referring Unavailable Jorge Luis, Ruslan Primary Care Unavailable Jorge Luis, Ruslan Primary Care Unavailable Ashelfah, Ghasem Admitting Unavailable Sumeet Hannah Consulting Unavailable Josuearuk, Kombian Attending Unavailable Ashelfah, Ghasem Admitting Unavailable Ashelfah, Ghasem Attending Unavailable Jorge Luis, Ruslan Primary Care Unavailable Ashelfah, Ghasem Consulting Unavailable Ashelfah, Ghasem Admitting Unavailable [place]bar[place], Kombian Attending Unavailable Jorge Luis, Ruslan Primary Care Unavailable HannahJeanel Consulting Unavailable Gbar[place], Kombian Consulting Unavailable Ashelfah, Ghasem Admitting Unavailable HannahSumeet Attending Unavailable Jorge Luis, Ruslan Primary Care Unavailable Suemet Hannah Consulting Unavailable Gbar[place], Kombian Consulting Unavailable [place], Kombian Attending Unavailable Doni Bridges Attending Unavailable Amarilis Griffiths Attending Unavailable Jorge Luis, Ruslan Referring Unavailable Jorge Luis, Ruslan Primary Care Unavailable Tian Art Attending Unavailable Tian Art Attending Unavailable Tian Art Attending Unavailable Tian Art Referring Unavailable Jorge Luis, Ruslan Primary Care Unavailable Camila Mcleod Attending Unavailable Camila Mcleod Referring Unavailable Jorge Luis, Ruslan Primary Care Unavailable Moodispaw, Tian Attending Unavailable Moodispaw, Tian Referring Unavailable Jorge Luis, Ruslan Primary Care Unavailable Moodispaw, Tian Attending Unavailable Moodispaw, Tian Referring Unavailable Jorge Luis, Ruslan Primary Care Unavailable Amarilis Griffiths Attending Unavailable Jorge Luis, Ruslan Referring Unavailable Moodisp[place], Tian Attending Unavailable Moodisp[place], Tian Referring Unavailable Jorge Luis, Ruslan Primary Care Unavailable Camila Childers Attending Unavailable [place], Tian Attending Unavailable Jorge Luis, Ruslan Referring Unavailable Moodisp[place], Tian Attending Unavailable Mood[place], Tian Referring Unavailable Jorge Luis, Ruslan Primary Care Unavailable Jorge Luis, Ruslan G Attending Unavailable PROBLEMS PROBLEMS DATE TYPE CONDITION / CODE ATTENDING STATUS SOURCE 02/06/2018 Unknown R06.02 - Shortness [place], Active [place] of breath / [facility] R06.02(ICD-10) Hospital Repository 01/05/2018 Unknown I48.0 - Paroxysmal [place], Active [place] atrial fibrillation [facility] / I48.0(ICD-10) Hospital Repository 10/06/2017 Unknown 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 Mood[place], Active [place] (current) use of [facility] anticoagulants / Hospital Z79.01(ICD-10) Repository 09/10/2017 Unknown Z95.0 - Presence of Amarilis Griffiths Active [place] cardiac pacemaker / [facility] Z95.0(ICD-10) Hospital Repository 09/10/2017 Unknown I49.5 - Sick sinus Amarilis Griffiths Active [facility] syndrome / Community I49.5(ICD-10) Hospital Repository 09/10/2017 Unknown I25.10 - Amarilis Griffiths Active [facility] Atherosclerotic [facility] heart disease of Hospital [place] coronary Repository artery without angina pectoris / I25.10(ICD-10) 09/22/2017 Unknown R07.9 - Chest pain, [place], Active [place] unspecified / [place] [facility] R07.9(ICD-10) Hospital Repository 07/21/2017 Admitting Unknown / Jorge Luis, Ruslan Active [facility] UNK(Unknown) [facility] Repository PROCEDURES PROCEDURES No Procedure Records FoundRESULTS RESULTS CARDIOLOGY VISIT Observed: 02/06/2018 Status: F Source: [place] REPORT 2:01 PM [facility] REPOSITORY [facility] [address] [place] [address] OFFICE VISIT Date of Service: 02/06/18 MR#: [id number] Acct: [id number] Name: DIVYA JOSEPH Rep #: [id number] : 1950 Provider: Tian Art MD Age/Sex: 67/F Location: [facility] [place] [facility] [place] Status: Signed HPI HPI Details: DIVYA JOSEPH is a 67 F who presents to the office today for for outpatient cardiovascular follow-up. Overall she states she is done well with the exception of she still feels somewhat short of breath and dyspneic with activity. As you know she is undergone repeat evaluation in August of this year including diagnostic cardiac catheterization. She did not require additional revascularization therapy at that time. She denies any ongoing chest discomfort. She has had no orthopnea, PND, or peripheral pitting edema. There has been no near syncope or syncope. Intake Vital Signs02/06/18 Body Mass Index (BMI) 29.0 02/06/18 Blood Pressure 110/74 02/06/18 Height 5 ft 4 in 02/06/18 Weight: 173 lb 02/06/18 Body Mass Index (BMI) 29.7 02/06/18 Blood Pressure 110/68 Intake Visit Reasons: 10 mo f/u Allergies atorvastatin calcium [From Lipitor] Allergy (Verified 02/06/18 13:24) Hives gluten Allergy (Verified 02/06/18 13:24) Food Allergy metoprolol succinate [From Toprol XL] Allergy (Verified 02/06/18 13:24) Rash niacin [From Niaspan Extended-Release] Allergy (Verified 02/06/18 13:24) Rash Penicillins Allergy (Verified 02/06/18 13:24) Rash Sulfa (Sulfonamide Antibiotics) Allergy (Verified 02/06/18 13:24) Itching radionuclide Allergy (Uncoded 02/06/18 13:24) It almost killed me Medications Aspirin [Aspirin, Baby] 81 mg PO DAILY@0800 08/23/13 [History Confirmed 02/06/18] Meloxicam [Mobic] 15 mg PO DAILY 03/01/17 [History Confirmed 02/06/18] nitroglycerin 0.4 mg sublingual tablet 0.4 mg SUBLINGUAL Q5M PRN 03/29/17 [History Confirmed 02/06/18] potassium chloride ER 10 mEq tablet,extended release 20 meq PO DAILY #60 tab 04/07/17 [Rx Confirmed 02/06/18] Enalapril Maleate 2.5 mg PO BID 08/05/17 [History Confirmed 02/06/18] warfarin 2.5 mg tablet 2.5 mg PO .COMPLEX #0 tab 12/09/17 [Rx Confirmed 02/06/18] isosorbide mononitrate 10 mg tablet 10 mg PO BID #60 tab 01/30/18 [Rx Confirmed 02/06/18] metoprolol tartrate 25 mg tablet 12.5 mg PO BID #30 tab 01/30/18 [Rx Confirmed 02/06/18] pravastatin 80 mg tablet 80 mg PO QHS #30 tab 01/30/18 [Rx Confirmed 02/06/18] cetirizine 10 mg tablet 10 mg PO DAILY PRN tab 02/06/18 [History Confirmed 02/06/18] multivitamin tablet 1 tab PO DAILY 02/06/18 [History Confirmed 02/06/18] [facility] Medical History Presence of stent in coronary artery (Chronic) Essential hypertension (Chronic) salvage determiner current use of anticoagulant (Chronic) Carotid artery disease (Chronic) Atherosclerosis of nightmute coronary artery of nightm[place] heart without angina pectoris (Chronic) Paroxysmal atrial fibrillation (Chronic) Surgical History Hx of CABG (Chronic 06/29/06) History of cholecystectomy (Resolved) History of left-sided carotid endarterectomy (Resolved 06/2006) History of total hysterectomy (Resolved) Family History Mother CVA (cerebral vascular accident) CAD (coronary artery disease) Social History Smoking Status: Former smoker alcohol intake: never substance use type: does not use ROS Const Const: Positive for fatigue (increased); negative for weakness, weight gain, weight loss, frequent falls or excessive sweating Eyes Eyes: Negative for change in vision, blurry vision or transient loss of vision ENT ENT: Positive for balance problems (occasional unsteadiness); negative for dizziness Cardio Chest Pain: No Palpitations: No Edema: None Muscle aches with walking: None Resp Respiratory: Positive for SOB with activity (increased); negative for SOB at rest GI GI: Negative vomiting or vomiting blood/hematemesis : Negative for hematuria Musc Musc: Positive for balance problems (occasional unsteadiness); negative for muscle aches/ myalgia, muscle weakness or joint pain Skin Skin: Negative non-healing lesions or rash Neuro Neuro: Positive for lightheadedness (when becomes SOB); negative for weakness, blurry vision, dizziness, frequent falls or orthostatic symptoms Romel Hematologic/Lymphatic: Negative for easy bleeding Endo Endo: Positive for fatigue (increased); negative for excessive sweating Psych Psych: Negative for anxiety or depression Allergy Allergy/Immunology: Negative for hives, Negative for rash Cardiology Exam Const Appearance: cooperative, healthy appearing, comfortable, no acute distress, well developed and well groomed Nutritional Appearance: overweight Orientation: alert, awake and oriented x3 Head Head: normal to inspection, normocephalic and atraumatic Ears: hearing grossly normal bilaterally Nose: external nose normal Face and Sinus: face symmetric Mouth: oral mucosae normal Eyes Eyelids: eyelids normal Conjunctivae: conjunctivae normal Pupils: PERRL EOM: EOM intact bilaterally Neck Neck: no JVD, normal visual inspection and full ROM Carotids: normal carotid upstroke Chest Chest inspection: normal inspection of the chest, normal respiratory effort and symmetric chest movement Auscultation: Bilateral: Clear to Auscultation Cardio Rate: regular rate Rhythm: regular rhythm Heart sounds: S1 normal and S2 normal; negative rub or gallop GI GI: normal to inspection, bowel sounds present and soft Neuro General: alert, awake, oriented x3, moves all extremities and other (walks with a cane) Skin Skin: no rashes or lesions noted Extremities Pulses: Normal: Right Posterior Tibial Pulse, Left Posterior Tibial Pulse, Right Radial Pulse, Left Radial Pulse Lower Extremity Edema: None: Bilateral Psych Psychological: normal affect Supplemental Info Transthoracic echocardiogram: 03/17/2023 Interpretation Summary Left ventricular systolic function is normal. The estimated ejection fraction is 60 %. Mild concentric left ventricular hypertrophy. The left atrium is mildly enlarged. Trivial mitral valve insufficiency. Trivial tricuspid valve insufficiency. Mild focal aortic valve thickening. Mild. focal aortic valve calcification. Trivial aortic valve insufficiency. Trivial pulmonic valve insufficiency. Stress test: 01/30/2013 The patient underwent pharmacologic (regadenoson) evaluation with a peak heart rate of 77 beats per minute (48% predicted maximum heart rate) and a peak blood pressure of 122/80 mmHg. The baseline EGG demonstrated sinus bradycardia with ST and T-wave abnormality. The peak pharmacologic EGG demonstrated the baseline ST and T-wave abnormality to appear somewhat less prominent at infusion and early recovery with gradual resolution towards baseline and recovery. There were no obvious cardiac dysrhythmias pretest, during pharmacologic infusion, or recovery. The patient had no complaint of chest discomfort during pharmacologic infusion or recovery. The examination was discontinued secondary to completion of protocol. IMPRESSION: 1. Pharmacologic (regadenoson) evaluation. 2. Peak pharmacologic EGG with baseline ST and T-wave abnormality appearing less prominent at infusion and early recovery with gradual resolution towards baseline and recovery. 3. Nuclear images pending. MYOCARDIAL PERFUSTON IMAGING STUDY: INTERPRETATION: Rest and stress SPECT Cardiolite nuclear imaging both demonstrate an area of diminished to absence of tracer uptake hi portions of the basal to mid lateral segments. These findings appear to be somewhat more prominent following stress as opposed to rest. There is notation of diminished end systolic thickening and brightening in the aforementioned areas. The gated Cardiolite study suggests myocardial thickening and inward wall motion. The reported LVEF is 73%. The aforementioned findings appear suggestive of an area of previous myocardial injury/infarction with mild cheyanne-infarct related myocardial ischemia. IMPRESSION: 1. Rest and stress SPECTCardiolite nuclear imaging demonstrate myocardial perfusion changes appearing compatible with an area of previous myocardial injury/infarction involving portions of the basal to mid lateral segments with associated findings compatible with mild pen- infarct related myocardial ischemia. 2. The gated Cardiolite study reports an LVEF of 73%. Stress test: 08/06/2017 IMPRESSION: 1. MILDLY ABNORMAL, post CABG REST-REGADENOSON STRESS 99m Tc SESTAMIBI MYOCARDIAL PERFUSION SPECT. A. Pharmacologic-induced left ventricular ischemia involving the proximal anteroseptal and mid ventricular inferolateral segments. B. Preservation of resting left ventricular myocardial systolic function with evidence of poststernotomy epicardial swing. (Lizzette et al, J Nucl Med 37: 105P, 1995). C. In a registry of 1,544 post CABG patients studied with cardiac perfusion SPECT imaging at the [facility], patients with mild stress cardiac perfusion defect scores demonstrated a less than 1.0% annualized incidence of cardiac . (Kali et al, Journal of [place] [employer], 37: 144, 2001). Cardiac catheterization: 08/08/2017 CORONARY ANGIOGRAPHY LEFT HEART ASSESSMENT Left Ventricular Ejection Fraction: by LV Gram 60 % Normal LV wall motion Elevated Left Ventricular End Diastolic Pressure LVEDP: 32 mmHg LEFT MAIN: Mild luminal irregularities LEFT ANTERIOR DECENDING ARTERY: PROX LAD: Previously placed stent has an instent 10-25 % restenosis MID LAD: Mid to Distal: small vessel: fills from both antegrade flow and SANDHU graft flow with no angiographically significant appearing disease distal to the graft attachment CIRCUMFLEX ARTERY: OSTIAL CIRC: 10-25 % Stenosis MID CIRC: Mild luminal irregularities OM 1: Proximal - Mild luminal irregularities OM 2: Proximal - Mild luminal irregularities RIGHT CORONARY ARTERY: PROX RCA: is occluded RT PDA: Proximal - RPDA fills from the SVG graft with no angiogrphically significant appearing disease distal to the graft attachment GRAFTS: SANDHU graft to the Mid LAD is patent [SANDHU graft is a small caliber vessel] Saphenous Vein graft to the 1st OM is totally occluded [Proximal: Chronic] Saphenous Vein graft to the RPDA is patent with no angiographically significant appearing disease distal to the graft attachment VALVE FINDINGS: Normal Aortic Valve function Normal Mitral Valve function AORTIC ROOT: Angiographically normal CAB06/29/2006: [facility]: SANDHU to the diagonal branch, SVG to the OM, SVG to the artery Assessment AND Plan 1. Atherosclerosis of nightm[place] coronary artery of [place] heart without angina pectoris I25.10 S/P CABG 06/29/2006 with SANDHU to LAD, SVG to diagonal, AND SVG to RCA; PCI to prox LAD 06/2006 post CABG; Plan She has undergone evaluation of her coronary/graft anatomy as previously described. She will continue risk factor modification medical management. In the interim based upon her shortness of breath and dyspnea she will have further noncardiac evaluation. This will include updated PFTs to compare at her study of 3 years ago. 2. Presence of stent in coronary artery Z95.5 PTCA/stent to ostial and prox LAD 06/2006 Plan She does have a history of previous LAD PCI. The findings are as noted above. Again she will continue risk factor modification and medical management. 3. History of coronary artery bypass graft Z95.1 CABG x3- 06/29/2006 with SANDHU to LAD, SVG to diagonal, AND SVG to RCA Plan She does have a history of CABG. Her SVG to the OM is occluded. Her other 2 grafts were patent. She will continue medical therapy. 4. Hyperlipidemia, unspecified hyperlipidemia type E78.5 Plan Her lipid labs have been reviewed. She will continue medical management and follow-up. 5. Essential hypertension I10 Plan Her blood pressure appears to be recently well controlled. She will continue medical therapy and follow-up. 6. Shortness of breath R06.02 Plan Based on her shortness of breath, and based on her previous noninvasive and invasive study results, she will have further noncardiac evaluation. This will include PFTs to compare to her study of 3 years ago. Depending upon her findings she may need further pulmonary evaluation as opposed to cardiac evaluation Orders Orders: Plan Detail Additional Comments Thank you for allowing me to participate in the care of your patient. Please don't hesitate to call if any issues arise. This note was generated using a voice recognition system and there may be incorrect words, spelling or punctuation that were not noted when reviewing the office note prior to saving. Follow Up 6 Months (PFM) Coding Level of Care Code Off vis,est,level 4 Diagnoses Atherosclerosis of nightm[place] coronary artery of [place] heart without angina pectoris I25.10 Presence of stent in coronary artery Z95.5 History of coronary artery bypass graft Z95.1 Hyperlipidemia, unspecified hyperlipidemia type E78.5 Hyperlipidemia type: unspecified Essential hypertension I10 Shortness of breath R06.02 Coding Level of Care Code Off vis,est,level 4 Diagnoses Atherosclerosis of [place] coronary artery of [place] heart without angina pectoris I25.10 Presence of stent in coronary artery Z95.5 History of coronary artery bypass graft Z95.1 Hyperlipidemia, unspecified hyperlipidemia type E78.5 Hyperlipidemia type: unspecified Essential hypertension I10 Shortness of breath R06.02 02/06/18 1401 <Electronically signed by Tian Art MD> Date Tian Art MD Cosigner Signature: Date (if applicable) CC: Ruslan Kang MD PROTHROMBIN TIME W/INR Collected: 02/06/2018 Status: F Source: [place] 12:49 PM [facility] REPOSITORY TYPE CODE TESTS RESULT OUT OF RANGE REFERENCE UNITS LAB L300.4150 11.7-14.9 SECONDS High PROTIME 30.1 LAB L300.4200 Normal INR 2.9 Performed By: #### L300.3900 #### [facility] [address] [place], [place], [address] PROTHROMBIN TIME W/INR Collected: 12/23/2017 Status: F Source: [place] 2:34 PM [facility] REPOSITORY TYPE CODE TESTS RESULT OUT OF RANGE REFERENCE UNITS LAB L300.4150 11.7-14.9 SECONDS High PROTIME 29.2 LAB L300.4200 Normal INR 2.7 Performed By: #### L300.3900 #### [facility] [address] [place], [address] PACEMAKER CHECK Observed: 12/15/2017 Status: F Source: [place] 12:35 PM [facility] REPOSITORY [facility] [address] [place] [address] Pacemaker Check Date of Service: 12/14/171854 MR#: [id number] Acct: [id number] Name: DIVYA JOSEPH Rep #: [id number] : 1950 From: Amarilis Griffiths Age/Sex: 67/F Location: [facility] [place] Status: Signed Billing Codes PM Device Codes: PM Dev Interrogate (Remot 12/14/171855 <Electronically signed by Amarilis Griffiths > Date Amarilis Griffiths 12/15/17 1235<Electronically signed by Tian Art MD> Cosigner Signature: Date (if applicable) Tian Art MD CC: PROTHROMBIN TIME W/INR Collected: 12/09/2017 Status: F Source: [place] 2:07 PM [facility] REPOSITORY TYPE CODE TESTS RESULT OUT OF RANGE REFERENCE UNITS LAB L300.4150 11.7-14.9 SECONDS High PROTIME 21.3 LAB L300.4200 Normal INR 1.8 Performed By: #### L300.3900 #### [facility] [address] [place], [place], [address] PROTHROMBIN TIME W/INR Collected: 12/02/2017 Status: F Source: [place] 2:06 PM [facility] [place] REPOSITORY TYPE CODE TESTS RESULT OUT OF RANGE REFERENCE UNITS LAB L300.4150 11.7-14.9 SECONDS High PROTIME 19.2 LAB L300.4200 Normal INR 1.6 Performed By: #### L300.3900 #### [facility] [address] [place], [place], [address] PROTHROMBIN TIME W/INR Collected: 11/16/2017 Status: F Source: [place] 1:02 PM [facility] REPOSITORY Order Comment: Comments: STANDING ORDER Comments: STANDING ORDER TYPE CODE TESTS RESULT OUT OF RANGE REFERENCE UNITS LAB L300.4150 11.7-14.9 SECONDS High PROTIME 19.8 LAB L300.4200 Normal INR 1.7 Performed By: #### L300.3900 #### [facility] [address] [place], [address] LIVER PROFILE Collected: 10/18/2017 Status: F Source: [place] 10:51 AM [facility] REPOSITORY TYPE CODE TESTS RESULT OUT OF RANGE REFERENCE UNITS LAB L501.1500 6.4-8.2 g/dL Normal T PROT 6.9 LAB L501.1800 3.2-5.0 g/dL Normal ALB 3.4 LAB L501.1950 2.2-4.2 g/dL Normal GLOB 3.5 LAB L501.4100 15-37 U/L Normal AST 22 LAB L501.4305 45-117 U/L Normal ALK P 83 LAB L501.4405 13-56 U/L Normal ALT 26 LAB L501.4600 0.20-1.00 mg/dL Normal T BILI 0.40 LAB L501.4700 0.00-0.30 mg/dL Normal D BILI 0.12 Performed By: #### L500.3400, L500.4100 #### [facility] [address] [place], [address] LIPID PROFILE Collected: 10/18/2017 Status: F Source: [place] 10:51 AM [facility] REPOSITORY TYPE CODE TESTS RESULT OUT OF RANGE REFERENCE UNITS LAB L501.4900 200 mg/dL Normal CHOL 180 Result Comment: <200 mg/dL Desirable 200-240 mg/dL Borderline >240 mg/dL High Risk LAB L501.5000 mg/dL Normal TRIG 149 Result Comment: The drugs N-Acetylcysteine and Metamizole may falsely depress this assay. Serum Triglycerides Reference Interval Normal <150 mg/dL Borderline high 150 - 199 mg/dL High 200 - 499 mg/dL Very High > or = 500 mg/dL LAB L501.6400 mg/dL Normal HDL 44 Result Comment: The drugs N-Acetylcysteine and Metamizole may falsely depress this assay. Reference Range HDL <40 mg/dL Low HDL Cholesterol HDL >or= 60 mg/dL High HDL Cholesterol LAB L501.6500 0-130 mg/dL Normal LDL 106 LAB L501.6600 5-40 mg/dL Normal VLDL 30 Performed By: #### L500.3400, L500.4100 #### [facility] [address] [place], [address] PROTHROMBIN TIME W/INR Collected: 10/13/2017 Status: F Source: [place] 9:18 AM [facility] REPOSITORY TYPE CODE TESTS RESULT OUT OF RANGE REFERENCE UNITS LAB L300.4150 11.7-14.9 SECONDS High PROTIME 28.2 LAB L300.4200 Normal INR 2.6 Performed By: #### L300.3900 #### [facility] [address] [facility] [place], [address] PACEMAKER CHECK Observed: 09/09/2017 Status: F Source: [place] 5:04 PM [facility] REPOSITORY [facility] [address] [place] [address] Pacemaker Check Date of Service: 09/09/17 1449 MR#: [id number] Acct: [id number] Name: DIVYA JOSEPH Rep #: [id number] : 1950 From: Amarilis Griffiths Age/Sex: 67/F Location: [facility] [place] Status: Signed Billing Codes PM Device Codes: PM Dev Prog Eval, Dual 09/09/17 1454 <Electronically signed by Amarilis Griffiths > Date Amarilis Griffiths 09/09/17 1704<Electronically signed by Tian Art MD> Cosigner Signature: Date (if applicable) Tian Art MD CC: PROTHROMBIN TIME W/INR Collected: 09/09/2017 Status: F Source: [place] 2:56 PM [facility] REPOSITORY TYPE CODE TESTS RESULT OUT OF RANGE REFERENCE UNITS LAB L300.4150 11.7-14.9 SECONDS High PROTIME 25.2 LAB L300.4200 Normal INR 2.3 Performed By: #### L300.3900 #### [facility] [address], [address] DOWNTIME REPORT Observed: 08/24/2017 Status: F Source: [place] 1:48 PM [facility] REPOSITORY [facility] Medical Records Department [address] [place] [address] Downtime Report MR#: [id number] Acct: [id number] Name: DIVYA JOSEPH Rep #: [id number] : 1950 67 From: Marciano Valera MD PCP: Ruslan Kang MD Status: DIS IN This patient was seen during an EMR downtime August 08, 2017 - August 15, 2017. This patient may have a combination of paper and electronic documentation or all paper documentation. All documentation is viewable within the e-chart portion of [facility] for each patient visit. 12 LEAD ELECTROCARDIOGRAM Observed: 08/22/2017 Status: F Source: [place] 8:[address] [facility] Cardiovascular Services [address] [place] [address] 12 Lead EKG 08/08/17 0503 MR#: [id number] Acct: [id number] Name: DIVYA JOSEPH Rep #: [id number] : 1950 67 From: Tian Art MD Attending Dr: Symone Bower MD Status: DIS IN Ordering Dr: Symone Bower MD Date: 08/08/17 Location: [facility] Sex: F C Admitted: 08/06/17 Test Reason : AM EKG Blood Pressure : / mmHG Vent. Rate : 061 BPM Atrial Rate : 061 BPM P-R Int : 192 ms QRS Dur : 082 ms QT Int : 444 ms P-R-T Axes : 070 043 067 degrees QTc Int : 446 ms Atrial-paced rhythm Nonspecific ST and T wave abnormality Abnormal ECG Confirmed by KAELYN MARIN, TIAN ([id number]), photographic editor TISH VALERA ([id number]) on 08/19/2017 2:15:08 PM Referred By: OLIVIA Confirmed By:TIAN ART MD 08/19/17 1415 Date Tian Art MD CC: Ruslan Kang; Symone Bower MD; Ruslan Kang MD Signed 12 LEAD ELECTROCARDIOGRAM Observed: 08/22/2017 Status: F Source: [place] 8:[address] [facility] Cardi[facility] Services [address] [place] [address] 12 Lead EKG 08/06/17 0457 MR#: [id number] Acct: [id number] Name: DIVYA JOSEPH Rep #: [id number] : 1950 From: Tian Art MD Attending Dr: Symone Bower MD Status: DIS IN Ordering Dr: Devan Sanchez MD Date: 08/06/17 Location: [facility] Sex: F C Admitted: 08/06/17 Test Reason : AM EKG Blood Pressure : / mmHG Vent. Rate : 064 BPM Atrial Rate : 064 BPM P-R Int : 214 ms QRS Dur : 086 ms QT Int : 448 ms P-R-T Axes : 000 011 082 degrees QTc Int : 462 ms Atrial-paced rhythm with prolonged AV conduction T wave abnormality, consider anterior ischemia Abnormal ECG Confirmed by TIAN ART MD ([id number]), photographic editor TISH VALERA ([id number]) on 08/19/2017 2:17:47 PM Referred By: Tian Art Confirmed By:TIAN ART MD 08/19/17 1417 Date Tian Art MD CC: Ruslan Kang; Devan Sanchez; Symone Bower MD; Ruslan Kang MD Signed 12 LEAD ELECTROCARDIOGRAM Observed: 08/22/2017 Status: F Source: [place] 8:38 AM [facility] REPOSITORY [facility] Cardiovascular Services [address] [place] [address] 12 Lead EKG 08/05/17 1631 MR#: [id number] Acct: [id number] Name: DIVYA JOSEPH Rep #: [id number] : 1950 67 From: Sumeet Hannah MD Attending Dr: Symone Bower MD Status: DIS IN Ordering Dr: Lashaun Dewey MD Date: 08/05/17 Location: [facility] Sex: F C Admitted: 08/06/17 Test Reason : CHEST PAIN Blood Pressure : / mmHG Vent. Rate : 067 BPM Atrial Rate : 067 BPM P-R Int : 142 ms QRS Dur : 086 ms QT Int : 436 ms P-R-T Axes : 036 -07 089 degrees QTc Int : 460 ms Normal sinus rhythm Normal ECG Confirmed by SUMEET HANNAH ([id number]), photographic editor TISH VALERA ([id number]) on 08/15/2017 6:08:40 PM Referred By: Tian Art Confirmed By:SUMEET HANNAH 08/15/171807 Date Sumeet Hannah MD CC: Ruslan Kang; Lashaun Dewey MD; Symone Bower MD; Ruslan Kang MD Signed BASIC METABOLIC Collected: 08/09/2017 Status: F Source: [place] PROFILE (BMP) 7:00 AM [facility] REPOSITORY Order Comment: RESULT(S) PREVIOUSLY REPORTED ON MANUAL REQUISITION DURING DOWNTIME. TYPE CODE TESTS RESULT OUT OF RANGE REFERENCE UNITS LAB L501.0100 74-106 mg/dL High GLU 109 Result Comment: Fasting Glucose result from 100 to 125 mg/dL suggests IMPAIRED HOMEOSTASIS per A.D.A. criteria. Please note revised GLUCOSE reference range effective 2017. LAB L501.1000 7-18 mg/dL Normal BUN 7 LAB L501.1100 0.55-1.02 mg/dL Normal CREAT,SERUM 0.90 Result Comment: The validity of the calculated GFR AND GFRAA in patients over 70 years has not been determined. Clinical correlation is essential. LAB L501.1110 >60 mL/min EST GFR Normal 66 LAB L501.1115 >60 mL/min EST GFR Normal - AA 80 LAB L501.1255 ml/min Normal Estimated CRCL 52.38 LAB L501.1300 10-20 RATIO Low BUN/CRE 7.8 LAB L501.2200 8.5-10.1 mg/dL CA Normal 8.7 LAB L501.5300 136-145 mmol/L NA Normal 139 LAB L501.5600 3.5-5.1 mmol/L K Normal 4.0 LAB L501.5900 98-107 mmol/L High CL 109 LAB L501.6100 21.0-32.0 mmol/L CO2 Normal 23.0 LAB L501.6200 5-15 GAP Normal 7 Performed By: #### L500.2500, L501.5200 #### [facility] [address] [place], [address] MAGNESIUM Collected: 08/09/2017 Status: F Source: [place] 7:00 AM [facility] REPOSITORY Order Comment: RESULT(S) PREVIOUSLY REPORTED ON MANUAL REQUISITION DURING DOWNTIME. TYPE CODE TESTS RESULT OUT OF RANGE REFERENCE UNITS LAB L501.5200 1.6-2.6 mg/dL Normal MG 1.8 Performed By: #### L500.2500, L501.5200 #### [facility] [address] [place], [place], [address] CBC-COMPLETE BLOOD CNT Collected: 08/09/2017 Status: F Source: [place] NO DIFF 12:00 AM [facility] REPOSITORY Order Comment: RESULT(S) PREVIOUSLY REPORTED ON MANUAL REQUISITION DURING DOWNTIME. TYPE CODE TESTS RESULT OUT OF RANGE REFERENCE UNITS LAB L100.1200 4.2-5.4 M/mm3 Low RBC 4.12 LAB L100.1300 12.0-15.0 g/dl Normal HGB 12.7 LAB L100.1400 37-47 % Normal HCT 39.5 LAB L100.1500 81-99 fL Normal MCV 95.9 LAB L100.1600 27.0-32.0 pg Normal MCH 30.8 LAB L100.1700 32-36 g/gl Normal MCHC 32.2 LAB L100.1810 11.6-14.6 % Normal RDW CV 13.3 LAB L100.1820 35.1-43.9 fl High RDW SD 45.2 LAB L100.1900 150-450 K/mm3 Normal PLT 182 LAB L100.2000 6.2-12.0 fl High MPV 13.2 Performed By: #### L100.0500, L100.4500 #### [facility] [address] [place], [place], [address] DIFFERENTIAL COMMENT Collected: 08/09/2017 Status: F Source: [place] 12:00 AM [facility] REPOSITORY Order Comment: RESULT(S) PREVIOUSLY REPORTED ON MANUAL REQUISITION DURING DOWNTIME. TYPE CODE TESTS RESULT OUT OF RANGE REFERENCE UNITS LAB L100.4500 Normal SMEAR COMMENT SCANNED Result Comment: LARGE PLATELETS NOTED Performed By: #### L100.0500, L100.4500 #### [facility] [address] [place], [address] PROTHROMBIN TIME W/INR Collected: 08/09/2017 Status: F Source: [place] 12:00 AM [facility] REPOSITORY Order Comment: RESULT(S) PREVIOUSLY REPORTED ON MANUAL REQUISITION DURING DOWNTIME. TYPE CODE TESTS RESULT OUT OF RANGE REFERENCE UNITS LAB L300.4150 11.7-14.9 SECONDS Normal PROTIME 14.6 LAB L300.4200 Normal INR 1.1 Performed By: #### L300.3900 #### [facility] [address] [place], [address] BASIC METABOLIC Collected: 08/08/2017 Status: F Source: [place] PROFILE (BMP) 4:00 AM [facility] REPOSITORY Order Comment: SPOKE WITH KARO MCKEON PT NOT FASTING SHE SAID OKAY TO DO WITH AM LABS TOMORROW.@ [place] DATE was changed from 08/07/17 to 08/08/17 RESULT(S) PREVIOUSLY REPORTED ON MANUAL REQUISITION DURING DOWNTIME. TYPE CODE TESTS RESULT OUT OF RANGE REFERENCE UNITS LAB L501.0100 74-106 mg/dL Normal GLU 96 Result Comment: Please note revised GLUCOSE reference range effective 2017. LAB L501.1000 7-18 mg/dL Normal BUN 7 LAB L501.1100 0.55-1.02 mg/dL Normal CREAT,SERUM 1.01 Result Comment: The validity of the calculated GFR AND GFRAA in patients over 70 years has not been determined. Clinical correlation is essential. LAB L501.1110 >60 mL/min Low EST GFR 58 LAB L501.1115 >60 mL/min EST GFR Normal - AA 70 LAB L501.1255 ml/min Normal Estimated CRCL 46.67 LAB L501.1300 10-20 RATIO Low BUN/CRE 6.9 LAB L501.2200 8.5-10.1 mg/dL Low CA 7.7 LAB L501.5300 136-145 mmol/L NA Normal 145 LAB L501.5600 3.5-5.1 mmol/L K Normal 3.7 LAB L501.5900 98-107 mmol/L High CL 111 LAB L501.6100 21.0-32.0 mmol/L CO2 Normal 25.0 LAB L501.6200 5-15 GAP Normal 9 Performed By: #### L500.2500, L500.4100 #### [facility] [address] [place], [address] LIPID PROFILE Collected: 08/08/2017 Status: F Source: [place] 4:00 AM [facility] REPOSITORY Order Comment: SPOKE WITH KARO MCKEON PT NOT FASTING SHE SAID OKAY TO DO WITH AM LABS TOMORROW.@ [place] DATE was changed from 08/07/17 to 08/08/17 RESULT(S) PREVIOUSLY REPORTED ON MANUAL REQUISITION DURING DOWNTIME. TYPE CODE TESTS RESULT OUT OF RANGE REFERENCE UNITS LAB L501.4900 200 mg/dL Normal CHOL 154 Result Comment: <200 mg/dL Desirable 200-240 mg/dL Borderline >240 mg/dL High Risk LAB L501.5000 mg/dL Normal TRIG 102 Result Comment: The drugs N-Acetylcysteine and Metamizole may falsely depress this assay. Serum Triglycerides Reference Interval Normal <150 mg/dL Borderline high 150 - 199 mg/dL High 200 - 499 mg/dL Very High > or = 500 mg/dL LAB L501.6400 mg/dL Normal HDL 44 Result Comment: The drugs N-Acetylcysteine and Metamizole may falsely depress this assay. Reference Range HDL <40 mg/dL Low HDL Cholesterol HDL >or= 60 mg/dL High HDL Cholesterol LAB L501.6500 0-130 mg/dL Normal LDL 90 LAB L501.6600 5-40 mg/dL Normal VLDL 20 Performed By: #### L500.2500, L500.4100 #### [facility] [address] [place], [address] PROTHROMBIN TIME W/INR Collected: 08/08/2017 Status: F Source: [place] 4:00 AM [facility] REPOSITORY Order Comment: FOR HEART CATH IN MORNING PER NURSE RESULT(S) PREVIOUSLY REPORTED ON MANUAL REQUISITION DURING DOWNTIME. TYPE CODE TESTS RESULT OUT OF RANGE REFERENCE UNITS LAB L300.4150 11.7-14.9 SECONDS High PROTIME 17.8 LAB L300.4200 Normal INR 1.5 Performed By: #### L300.3900, L300.4310 #### [facility] [address] [place], [address] PARTIAL THROMBOPLAST Collected: 08/08/2017 Status: F Source: [place] TIME 4:00 AM [facility] REPOSITORY Order Comment: FOR HEART CATH IN MORNING PER NURSE RESULT(S) PREVIOUSLY REPORTED ON MANUAL REQUISITION DURING DOWNTIME. TYPE CODE TESTS RESULT OUT OF RANGE REFERENCE UNITS LAB L300.4310 24.1-36.2 Seconds Normal PTT 35.1 Performed By: #### L300.3900, L300.4310 #### [facility] [address] [place], [address] CBC W/DIFF, AUTOMATED Collected: 08/08/2017 Status: F Source: [place] 12:00 AM [facility] REPOSITORY Order Comment: RESULT(S) PREVIOUSLY REPORTED ON MANUAL REQUISITION DURING DOWNTIME. TYPE CODE TESTS RESULT OUT OF RANGE REFERENCE UNITS LAB L100.1000 4.4-11.0 K/mm3 Normal WBC 6.4 LAB L100.1200 4.2-5.4 M/mm3 Low RBC 4.10 LAB L100.1300 12.0-15.0 g/dl Normal HGB 12.6 LAB L100.1400 37-47 % Normal HCT 39.4 LAB L100.1500 81-99 fL Normal MCV 96.1 LAB L100.1600 27.0-32.0 pg Normal MCH 30.7 LAB L100.1700 32-36 g/gl Normal MCHC 32.0 LAB L100.1810 11.6-14.6 % Normal RDW CV 13.3 LAB L100.1820 35.1-43.9 fl High RDW SD 45.8 LAB L100.1900 150-450 K/mm3 Normal PLT 160 LAB L100.2000 6.2-12.0 fl High MPV 13.0 LAB L100.2100 47-70 % Normal NEUT% 55.0 LAB L100.2200 19-41 % Normal LY% 29.7 LAB L100.2300 0-10 % High MONO% 11.0 LAB L100.2400 0-5 % Normal EO% 3.6 LAB L100.2500 0-1 % Normal BASO% 0.5 LAB L100.2550 0.0-0.9 % Normal IM GRAN % 0.200 Result Comment: IG% - Immature Granulocytes (promyelocytes, myelocytes and metamyelocytes) > 1% indicates that a LEFT SHIFT is Present. LAB L100.2620 2.0-7.7 X10 3/uL Normal Absolute Neut 3.5 LAB L100.2720 0.83-4.51 X10 3/ul Normal Absolute Lymph 1.90 Performed By: #### L100.0100 #### [facility] [address] [facility] [place], [address] CONSULTATION Observed: 08/07/2017 Status: F Source: [place] 9:34 AM [facility] REPOSITORY [facility] Medical Records Department [address] [place] [address] Consultation 08/07/17 0924 MR#: [id number] Acct: [id number] Name: DIVYA JOSEPH Rep #: [id number] : 1950 67 From: Sumeet Hannah MD PCP: Ruslan Kang MD Status: ADM IN Y Location: [place] [id number] Problem List (1) Hx of CABG Status: Chronic Comment: 06/29/2006 with SANDHU to LAD, SVG to diagonal, AND SVG to RCA (2) Carotid artery disease Status: Chronic Qualifiers: Comment: S/P left carotid endarterectomy June 2006; (3) Atherosclerosis of [place] coronary artery of [place] heart without angina pectoris Status: Chronic Comment: S/P CABG 06/29/2006 with SANDHU to LAD, SVG to diagonal, AND SVG to RCA; PCI to prox LAD 06/2006 post CABG; (4) Paroxysmal atrial fibrillation Status: Chronic (5) HTN (hypertension) Status: Chronic Qualifiers: (6) PVD (peripheral vascular disease) Status: Chronic Comment: ? bilateral LE stents (7) HLD (hyperlipidemia) Status: Chronic Qualifiers: (8) Sick sinus syndrome with tachycardia Status: Chronic Comment: S/P Pacemaker implantation 04/09/2013; (9) Pacemaker Status: Chronic Reason for Consult Date of Consultation: 08/07/17 Reason for Consultation: Chest pain, shortness of breath, dyspnea on exertion, coronary artery disease status post bypass surgery, peripheral vascular disease, hypertension, hypercholesterolemia History of Present Illness: The patient is a 67 year old F, patient of Dr. Mercer, last seen in the office by 1 of her SILVER STEWARD's on 09/15/16. Patient has a history of hypertension, hypercholesterolemia, coronary artery disease status post three-vessel bypass surgery in 2006 at [facility]. At that time she received a SANDHU to the diagonal, saphenous vein graft to the obtuse marginal, and a saphenous vein graft to the PDA. Patient has several subsequent catheterizations and reports that she had a stent placed to the LAD soon after her bypass surgery. Her most recent catheterization took place by Dr. Art on 04/02/13. At that time her SANDHU to her diagonal was found to be very small, with competitive flow down to the [place] LAD, and was reportedly atretic by catheterization at [facility] previous to that., her saphenous vein graft to the OM was 100% occluded, and her saphenous vein graft to the PDA was widely patent. Her EF at that time was 65%. On further history the patient has a approximately 2-3 pack smoking history per day for the past 50 years, quit around 4 years ago. She has known COPD but is not on oxygen at home. In addition at the time of her bypass surgery in 2006 she underwent left-sided carotid endarterectomy. Patient was in normal health up until the day of admission when she developed chest burning sensation which lasted about 45 minutes with associated shortness of breath, similar to her previous anginal symptoms. She did not take any sublingual nitroglycerin. She was admitted and ruled out for myocardial infarction, and underwent a non- walking nuclear stress test yesterday which demonstrated evidence of anterior and lateral ischemia. Her EKG on admission showed atrial paced rhythm with normal ventricular response and a right bundle branch pattern and questionable anterior ischemia. On further history she required a pacemaker subsequent to her bypass surgery which took place about 4 years ago, and is on chronic Coumadin therapy for atrial fibrillation. Patient is remained chest pain-free since admission. [] Past Medical History Allergies/Adverse Reactions: Allergies atorvastatin calcium [From Lipitor] Allergy (Verified 08/05/17 16:34) Hives gluten Allergy (Verified 08/05/17 19:09) Food Allergy metoprolol succinate [From Toprol XL] Allergy (Verified 08/05/17 16:34) Rash niacin [From Niaspan Extended-Release] Allergy (Verified 08/05/17 16:34) Rash Penicillins Allergy (Verified 08/05/17 16:34) Rash Sulfa (Sulfonamide Antibiotics) Allergy (Verified 08/05/17 16:34) Itching atorvastatin Adverse Reaction (Severe, Verified 08/05/17 16:34) Unknown radionuclide Allergy (Uncoded 08/05/17 19:14) It almost killed me stress test radionuclide Home Medications: Ambulatory Orders Medication Instructions Recorded Aspirin [Aspirin, Baby] 81 mg PO DAILY@0800 08/23/13 Past Medical History (Chronic Problems): Chronic Problems Hx of CABG (Chronic) 06/29/2006 with SANDHU to LAD, SVG to diagonal, AND SVG to RCA Carotid artery disease (Chronic) S/P left carotid endarterectomy June 2006; Atherosclerosis of [place] coronary artery of [place] heart without angina pectoris (Chronic) S/P CABG 06/29/2006 with SANDHU to LAD, SVG to diagonal, AND SVG to RCA; PCI to prox LAD 06/2006 post CABG; Paroxysmal atrial fibrillation (Chronic) CAD (coronary artery disease) (Chronic) cabg x 3 1999 03 stent cath 2006 HTN (hypertension) (Chronic) PVD (peripheral vascular disease) (Chronic) ? bilateral LE stents HLD (hyperlipidemia) (Chronic) Sick sinus syndrome with tachycardia (Chronic) S/P Pacemaker implantation 04/09/2013; Cerebrovascular disease (Chronic) hx stroke mild residual left hemiparesis s/p left CEA 2006 mild-mod external carotid disease 05/18 Pacemaker (Chronic) Bradycardia (Chronic) Chronic back pain (Chronic) Tobacco use (Chronic) Depression with anxiety (Chronic) Surgical History: coronary bypass surgery, - - Left carotid endarterectomy, PCI, Hysterectomy, Cholecystectomy, CABG, BL LE stents. Psychiatric History: Anxiety, Depression, - - Claustrophobia CREEL OPERATOR History: No pertinent CREEL OPERATOR history - *Family History Maternal History Items: No pertinent history Paternal History Items: No pertinent history Smoking Status: Former smoker Alcohol: None Drugs: None Review of Systems - Review of Systems General: Denies: Fever, Night Sweats, Fatigue Cardiovascular: Reports: Chest Discomfort at Rest, Shortness of Breath, Shortness of Breath at Rest. Denies: Chest Discomfort, Orthopnea, PND, Peripheral Edema, Palpitations, Lightheadedness, Dizziness, Near Syncope, Syncope Respiratory: Denies: Cough, Sputum Production, Hemoptysis Gastrointestinal: Denies: Hematemesis, Hematochezia, Melena Genitourinary: Denies: Dysuria, Hematuria Skin: Denies: Rash Subjectve: Patient resting comfortably, no acute distress. Objective: Vital Signs Temp Pulse Resp BP Pulse Ox 98.3 F 64 18 130/46 H 97 08/07/17 08:35 08/07/17 09:00 08/07/17 08:35 08/07/17 09:00 08/07/17 08:35 Oxygen Delivery Method Room Air Intake and Output for Last 24 Hours Intake Total 800 / 1553 440 / 440 Output Total 500 / 500 Balance 300 / 1053 440 / 440 General: Awake, Alert, Oriented x 3 HEENT: PERRL, EOMI, Sclera Non Icteric Neck: Supple, Good ROM, No Lymph Node Enlargement Lungs: Clear to auscultation Cardiovascular: Regular Rhythm, Premature Ectopic Beats, Normal S1, Normal S2, No Murmurs, No Rubs, No Gallops Vascular: No Carotid Bruits, Normal Femoral Pulses, Normal Radial Pulses, Normal Dorsalis Pedal Pulse, Normal Posterior Tibial Pulses Abdomen: Bowel Sounds Present, Soft, Non Tender, No HSM, No Organomegaly Extremities: No Cyanosis, No Clubbing, No edema Neurological: No Focal Motor or Sensory Deficit 08/07/17 05:03: WBC 6.4, RBC 3.86 L, Hgb 12.1, Hct 37.2, MCV 96.4, MCH 31.3, MCHC 32.5, RDW 13.1, RDW Differential 44.6 H, Plt Count 146 L, MPV 12.7 H 08/07/17 05:03: PT 30.3 H, INR 2.9 Rhythm: EKG: ECHO: Stress Test: Cardiac Cath: Pending PCI: CT Surgery: Holter monitor: EPS: PPM: CXR: Chest CT Scan: Assessment/Plan 1. Coronary artery disease: The patient presents with unstable anginal symptoms similar to her previous angina with associated shortness of breath and dyspnea on exertion despite being adequately anticoagulated. She underwent a non-walking nuclear stress test yesterday which demonstrated anterior ischemia in the same territory of her previous LAD stent and diminutive SANDHU to LAD. At this point the patient's INR is greater than 1.8, would recommend holding her Coumadin which is been done since yesterday. In addition I recommend vitamin K 2.5 mg 1 now in an attempt to reduce her INR to therapeutic levels for her catheterization. If her INR is less than 1.8, we can proceed with left her catheterization and graft angiography. In addition the patient was loaded with Plavix 300 mg 1 yesterday and 75 mg p.o. daily in addition to daily baby aspirin. If the patient does not require intervention we will discontinue her Plavix and continue baby aspirin and Coumadin going forward. The risks/benefits of the procedure were thoroughly explained to the patient including specific attention to lack of on-site surgical backup, and the patient has agreed to proceed. 2. Atrial fibrillation: Patient is currently rate controlled with her pacemaker, and is on chronic Coumadin therapy. Will restart Coumadin therapy once left her catheterization is been completed. 3. Tobacco cessation: Patient reports that she quit tobacco about 4 years ago. I encouraged her to remain tobacco free. 4. Hyperlipidemia: Given the patient's severe cardiovascular disease she requires aggressive LDL reduction. Recommend fasting lipid profile to ensure that her LDL is less than 70. Continue Pravachol for now. 5. Thank you very much for the opportunity to participate in the cardiac care of your patient. Consultation time took place between 8 AM and 8:30 AM. Code Visit Inpatient E AND M: [id number] Init Hosp L2 08/07/17 0934 <Electronically signed by Sumeet Hannah MD> Date Sumeet Hannah MD Cosigner Signature (if applicable): Date CC: Ruslan Kang; Sumeet Hannah MD; Ruslan Kang MD Signed CBC-COMPLETE BLOOD CNT Collected: 08/07/2017 Status: F Source: [place] NO DIFF 5:03 AM [facility] REPOSITORY TYPE CODE TESTS RESULT OUT OF RANGE REFERENCE UNITS LAB L100.1000 4.4-11.0 K/mm3 Normal WBC 6.4 LAB L100.1200 4.2-5.4 M/mm3 Low RBC 3.86 LAB L100.1300 12.0-15.0 g/dl Normal HGB 12.1 LAB L100.1400 37-47 % Normal HCT 37.2 LAB L100.1500 81-99 fL Normal MCV 96.4 LAB L100.1600 27.0-32.0 pg Normal MCH 31.3 LAB L100.1700 32-36 g/gl Normal MCHC 32.5 LAB L100.1810 11.6-14.6 % Normal RDW CV 13.1 LAB L100.1820 35.1-43.9 fl High RDW SD 44.6 LAB L100.1900 150-450 K/mm3 Low PLT 146 LAB L100.2000 6.2-12.0 fl High MPV 12.7 Performed By: #### L100.0500 #### [facility] [address] [place], [address] PROTHROMBIN TIME W/INR Collected: 08/07/2017 Status: F Source: [place] 5:03 AM [facility] REPOSITORY TYPE CODE TESTS RESULT OUT OF RANGE REFERENCE UNITS LAB L300.4150 11.7-14.9 SECONDS High PROTIME 30.3 LAB L300.4200 Normal INR 2.9 Performed By: #### L300.3900 #### [facility] [address] [place], [address] STRESS REPORT Observed: 08/06/2017 Status: F Source: [place] 9:45 AM [facility] REPOSITORY [facility] Cardiovascular Services [address] [place] [id number] MR#: [id number] Acct: [id number] Name: DIVYA JOSEPH Rep #: [id number] : 1950 67 From: Sumeet Hannah MD Primary Care: Ruslan Kang MD Status: ADM DEBI Ordering Dr: Sex: F C Stress Test Report Regadenoson EKG: Resting EKG: Paced atrial rhythm with normal intrinsic ventricular response. Lexiscan EKG: Patient received Regadenoson for 1 minute. Resting blood pressure was 112/74, and bianca to max of 128/80. Test was terminated due to completion of regadenoson injection. During infusion the patient's heart rate remained the same. Patient had no dynamic EKG changes to suggest ischemia. Conclusions: Normal, adequate, Regadenoson infusion. Negative for ischemia by EKG criteria. No anginal symptoms noted. No arrhythmias noted. Patient tolerated procedure well. Nuclear images pending. 08/06/17944 <Electronically signed by Sumeet Hannah MD> Date Sumeet Hannah MD CC: Ruslan Kang; Symone Bower MD; Ruslan Kang MD Date Dictated: 08/06/17941 Date Transcribed: 08/06/17941 Bilingual Receptionist: Signed NUCLEAR STRESS TEST - Observed: 08/06/2017 Status: F Source: [place] CHEMICAL 7:47 AM [facility] REPOSITORY [facility] Imaging Services [address] [place] [address] Nuclear Stress Test - Chemical MR#: [id number] Acct: [id number] Name: DIVYA JOSEPH Rep #: [id number] : 1950 F 67 From: Mario Dockery DO PCP: Ruslan aKng MD Status: ADM DEBI Study: Nuclear Stress Test - Chemical Date of Exam: 08/06/17 Exam# [id number] Ordering Dr: Sumeet Hannah MD CLINICAL: 67 year old hypertensive female with history of known coronary atherosclerosis, status post CABG with current complaint of chest discomfort. REST-REGADENOSON 99m Tc SESTAMIBI STRESS MYOCARDIAL PERFUSION SPECT COMPARISON: None available FINDINGS: Following the intravenous administration of 11.9 mCi of 99m Tc sestamibi, the resting myocardial perfusion acquisitions demonstrate relatively uniform perfusion noted throughout all left ventricular myocardial segments. The patient was administered intravenous regadenoson (0.4 mgm). Following the intravenous administration of 35.7 mCi of 99m Tc sestamibi, the post regadenoson images reveal decreased perfusion identified in the proximal anteroseptal and mid ventricular inferolateral segments. The total summed stress score is < 8. The post stress resting left ventricular ejection fraction is calculated to be 76.0 % by gated SPECT technique. Septal wall hypokinesis with compensatory lateral wall hyperkinesis is defined. There is otherwise uniform and normal wall motion, end systolic thickening noted in the remaining left ventricular myocardial segmental distributions. NM/Nuclear Stress Test - Chemical IMPRESSION: 1. MILDLY ABNORMAL, post CABG REST-REGADENOSON STRESS 99m Tc SESTAMIBI MYOCARDIAL PERFUSION SPECT. A. Pharmacologic-induced left ventricular ischemia involving the proximal anteroseptal and mid ventricular inferolateral segments. B. Preservation of resting left ventricular myocardial systolic function with evidence of poststernotomy epicardial swing. (Lizzette et al, J Nucl Med 37: 105P, 1996). C. In a registry of 1,544 post CABG patients studied with cardiac perfusion SPECT imaging at the [facility], patients with mild stress cardiac perfusion defect scores demonstrated a less than 1.0% annualized incidence of cardiac . (Kali et al, Journal of [place] [employer], 37: 144, 2001). Electronically Signed: Mario Dockery DO at 13:18 EDT Tel , Service support , CC: Ruslan Kang; Sumeet Hannah MD; Symone Bower MD; Ruslan Kang MD Bilingual Receptionist: Signed CBC W/DIFF, AUTOMATED Collected: 08/06/2017 Status: F Source: [place] 6:05 AM [facility] REPOSITORY TYPE CODE TESTS RESULT OUT OF RANGE REFERENCE UNITS LAB L100.1000 4.4-11.0 K/mm3 Normal WBC 6.7 LAB L100.1200 4.2-5.4 M/mm3 Low RBC 3.93 LAB L100.1300 12.0-15.0 g/dl Normal HGB 12.0 LAB L100.1400 37-47 % Normal HCT 37.3 LAB L100.1500 81-99 fL Normal MCV 94.9 LAB L100.1600 27.0-32.0 pg Normal MCH 30.5 LAB L100.1700 32-36 g/gl Normal MCHC 32.2 LAB L100.1810 11.6-14.6 % Normal RDW CV 13.2 LAB L100.1820 35.1-43.9 fl High RDW SD 46.2 LAB L100.1900 150-450 K/mm3 Low PLT 145 LAB L100.2000 6.2-12.0 fl High MPV 12.7 LAB L100.2100 47-70 % Normal NEUT% 59.9 LAB L100.2200 19-41 % Normal LY% 28.4 LAB L100.2300 0-10 % Normal MONO% 7.9 LAB L100.2400 0-5 % Normal EO% 3.6 LAB L100.2500 0-1 % Normal BASO% 0.1 LAB L100.2550 0.0-0.9 % Normal IM GRAN % 0.100 Result Comment: IG% - Immature Granulocytes (promyelocytes, myelocytes and metamyelocytes) > 1% indicates that a LEFT SHIFT is Present. LAB L100.2620 2.0-7.7 X10 3/uL Normal Absolute Neut 4.0 LAB L100.2720 0.83-4.51 X10 3/ul Normal Absolute Lymph 1.91 Performed By: #### L100.0100 #### [facility] [address] [place], [address] BASIC METABOLIC Collected: 08/06/2017 Status: F Source: [place] PROFILE ([facility]) 6:05 AM [facility] REPOSITORY TYPE CODE TESTS RESULT OUT OF RANGE REFERENCE UNITS LAB L501.0100 74-106 mg/dL Normal GLU 87 Result Comment: Please note revised GLUCOSE reference range effective 2017. LAB L501.1000 7-18 mg/dL Normal BUN 12 LAB L501.1100 0.55-1.02 mg/dL Normal CREAT,SERUM 0.89 Result Comment: The validity of the calculated GFR AND GFRAA in patients over 70 years has not been determined. Clinical correlation is essential. LAB L501.1110 >60 mL/min Normal EST GFR 67 Result Comment: Non- GFR Calc LAB L501.1115 >60 mL/min Normal EST GFR - AA 82 Result Comment: GFR Calc LAB L501.1255 ml/min Normal Estimated CRCL 52.97 LAB L501.1300 10-20 RATIO Normal BUN/CRE 13.5 LAB L501.2200 8.5-10 mg/dL Low .1 CA 7.9 LAB L501.5300 136-14 mmol/L Normal 5 NA 142 LAB L501.5600 3.5-5. mmol/L Normal 1 K 3.9 LAB L501.5900 98-107 mmol/L High CL 112 LAB L501.6100 21.0-3 mmol/L Normal 2.0 CO2 22.0 LAB L501.6200 5-15 Normal GAP 8 Performed By: #### L500.2500 #### [facility] [address] [place], [address] PROTHROMBIN TIME W/INR Collected: 08/06/2017 Status: F Source: [place] 6:05 AM [facility] REPOSITORY TYPE CODE TESTS RESULT OUT OF RANGE REFERENCE UNITS LAB L300.4150 11.7-14.9 SECONDS High PROTIME 32.8 LAB L300.4200 Normal INR 3.2 Performed By: #### L300.3900, L300.4310 #### [facility] [address] [place], [address] PARTIAL THROMBOPLAST Collected: 08/06/2017 Status: F Source: [place] TIME 6:05 AM [facility] REPOSITORY TYPE CODE TESTS RESULT OUT OF REFERENCE UNITS RANGE LAB L300.4310 24.1-36.2 Seconds High PTT 49.3 Performed By: #### L300.3900, L300.4310 #### [facility] [address] [place], [address] TROPONIN-I Collected: 08/06/2017 Status: F Source: [place] 1:36 AM [facility] REPOSITORY Order Comment: 'TROP' Serial specimen #1, #2 or #3: 3 Comments: Third troponin ordered for wrong date. TYPE CODE TESTS RESULT OUT OF RANGE REFERENCE UNITS LAB L501.4010 <0.045 ng/mL Normal < 0.015 TROPONIN-I Result Comment: TROPONIN-I EXPECTED VALUES <0.045 Negative 0.045 - 0.590 Consistent with Cardiac Damage > OR = 0.600 Critical Value Not every elevated troponin is indicative of MS. These values should be used with clinical judgement in examining the patient's clinical picture for diagnosis. To establish a diagnosis of MS versus myocardial injury, there must be a demonstrated rise and/or fall in the troponin values, in addition to ischemic symptoms, EKG changes, new regional wall motion abnormality, and/or angiographical evidence. PLEASE NOTE: REFERENCE RANGES EDITED 17 Performed By: #### L501.4010 #### [facility] [address] [place], [address] TROPONIN-I Collected: 08/05/2017 Status: F Source: [place] 8:30 PM [facility] REPOSITORY Order Comment: 'TROP' Serial specimen #1, #2 or #3: 2 TYPE CODE TESTS RESULT OUT OF RANGE REFERENCE UNITS LAB L501.4010 <0.045 ng/mL Normal < 0.015 TROPONIN-I Result Comment: TROPONIN-I EXPECTED VALUES <0.045 Negative 0.045 - 0.590 Consistent with Cardiac Damage > OR = 0.600 Critical Value Not every elevated troponin is indicative of MS. These values should be used with clinical judgement in examining the patient's clinical picture for diagnosis. To establish a diagnosis of MS versus myocardial injury, there must be a demonstrated rise and/or fall in the troponin values, in addition to ischemic symptoms, EKG changes, new regional wall motion abnormality, and/or angiographical evidence. PLEASE NOTE: REFERENCE RANGES EDITED 17 Performed By: #### L501.4010 #### [facility] [address] [place], [address] HISTORY AND PHYSICAL Observed: 08/05/2017 Status: F Source: [place] EXAM 6:45 PM [facility] REPOSITORY [facility] Medical Records Department [address] [facility] [place] [address] History and Physical 08/05/17 1836 MR#: [id number] Acct: [id number] Name: DIVYA JOSEPH Rep #: [id number] : 1950 67 From: Devan Sanchez MD PCP: Ruslan Kang MD Status: ADM DEBI Y Location: [place] [address] Problem List (1) Hx of CABG Status: Chronic Comment: 06/29/2006 with SANDHU to LAD, SVG to diagonal, AND SVG to RCA (2) Carotid artery disease Status: Chronic Qualifiers: Comment: S/P left carotid endarterectomy June 2006; (3) Paroxysmal atrial fibrillation Status: Chronic (4) CAD (coronary artery disease) Status: Chronic Comment: cabg x 3 1999 03 stent cath 2006 (5) HTN (hypertension) Status: Chronic Qualifiers: (6) PVD (peripheral vascular disease) Status: Chronic Comment: ? bilateral LE stents (7) HLD (hyperlipidemia) Status: Chronic Qualifiers: (8) Pacemaker Status: Chronic (9) Depression with anxiety Status: Chronic History of Present Illness Date of Admission: 08/05/17 Chief Complaint: Chest pain. The patient is a 67 year old F with past medical history as mentioned above presented to the emergency room because of chest pain. Her symptoms started last night when she was sitting with central chest pain, retrosternal, burning type pain, 5-6 out of 10 in severity, not radiating, associated with shortness of breath and palpitation as well as nausea and without aggravating or relieving factors. The pain lasted for about 45 minutes and then resolved. This morning, she had headache and neck pain and she started having this pain again which similar to the last last night chest pain and she decided to come to the emergency room. Today, she reported dry cough after she was smelling somebody's smoking. Patient mentioned that back in 2012, she had nuclear stress test and she developed significant side effects after the injection she received. In the emergency department, her vital signs are stable. She mentioned that usually her blood pressure runs in the 90s systolic. Her routine blood work is remarkable for hemoglobin of 15.5 g/dL, creatinine of 1.39, otherwise normal. Troponin was negative. EKG revealed normal sinus rhythm, flattening of T wave in lateral chest leads and no acute ischemic changes. Chest x-ray showed no acute infiltrate, consolidation or effusion. She is being admitted for chest pain for evaluation. Past Medical History Past Medical History (Chronic Problems): Chronic Problems Hx of CABG (Chronic) 06/29/2006 with SANDHU to LAD, SVG to diagonal, AND SVG to RCA Carotid artery disease (Chronic) S/P left carotid endarterectomy June 2006; Atherosclerosis of [place] coronary artery of [place] heart without angina pectoris (Chronic) S/P CABG 06/29/2006 with SANDHU to LAD, SVG to diagonal, AND SVG to RCA; PCI to prox LAD 06/2006 post CABG; Paroxysmal atrial fibrillation (Chronic) CAD (coronary artery disease) (Chronic) cabg x 3 1999 1 stent cath 2006 HTN (hypertension) (Chronic) PVD (peripheral vascular disease) (Chronic) ? bilateral LE stents HLD (hyperlipidemia) (Chronic) Sick sinus syndrome with tachycardia (Chronic) S/P Pacemaker implantation 04/09/2013; Cerebrovascular disease (Chronic) hx stroke mild residual left hemiparesis s/p left CEA 2006 mild-mod external carotid disease 05/18 Pacemaker (Chronic) Bradycardia (Chronic) Chronic back pain (Chronic) Tobacco use (Chronic) Depression with anxiety (Chronic) Allergies atorvastatin calcium [From Lipitor] Allergy (Verified 08/05/17 16:34) Hives metoprolol succinate [From Toprol XL] Allergy (Verified 08/05/17 16:34) Rash niacin [From Niaspan Extended-Release] Allergy (Verified 08/05/17 16:34) Rash Penicillins Allergy (Verified 08/05/17 16:34) Rash Sulfa (Sulfonamide Antibiotics) Allergy (Verified 08/05/17 16:34) Itching atorvastatin Adverse Reaction (Severe, Verified 08/05/17 16:34) Unknown Home Medications: Ambulatory Orders Medication Instructions Recorded Surgical History: coronary bypass surgery, - - Left carotid endarterectomy, PCI, Hysterectomy, Cholecystectomy, CABG, BL LE stents. 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 Denies: Heaviness, Light Headedness, Orthopnea, Paroxysmal Noc. Dyspnea, Syncope Respiratory: Reports: Cough, Shortness of Breath. Denies: Pleuritic Pain, Sputum production, Wheezing Gastrointestinal: Reports: Nausea, -. Denies: Abdominal Pain, Constipation, Diarrhea, Vomiting Genitourinary: Denies: Dysuria, Frequency, Hematuria Musculoskeletal: Denies: Arm Pain, Back Pain, Foot Pain Skin: Denies: Dryness, Rash Neurological: Reports: Headaches. Denies: Balance problems, Change in Speech, Slurred speech, Incoordination, Numbness Psychiatric: Reports: Anxiety, Depression Endocrine: Denies: Change in Body Habitus, Polydipsia VTE Information - Inpt Only VTE Present on Admission: No VTE Mechan Device Prophylaxis: None VTE Pharm Prophylaxis ordered?: No - Physical Exam General: Alert, Oriented x3, Cooperative, No apparent distress HEENT: Atraumatic, PERRLA, EOMI, Normocephalic Oral: Moist Mucosa, No Gingival or Mucosal Lesions/ Ulcerations Neck: Supple, No JVD, Negative Carotid Bruits, Trachea Midline, Thyroid Normal Size and Texture Lungs: Clear to auscultation, No rhonchi, No wheeze, No rales, Diminished Cardiovascular: Regular rate, Regular Rhythm, Normal S1, Normal S2, No murmurs, PMI Normal Abdomen: Bowel Sounds Present, Soft, Non Tender, Non-Distended, No Hepato-splenomegaly Extremities: No clubbing, No cyanosis, No edema Skin: No rashes, No breakdown Lymphatic: No Cervical, Supraclavicular, or Inguinal Adenopathy Neurological: Cranial nerves II-XII grossly intact, Motor Exam 5/5 strength throughout Psych/Mental Status: Normal Affect, Appropriate, Alert and oriented to time, place, person, mood and affect Vital Signs Temp Pulse Resp BP Pulse Ox 98.4 F 60 18 92/69 95 08/05/17 16:30 08/05/17 18:22 08/05/17 18:22 08/05/17 18:22 08/05/17 18:22 Oxygen Delivery Method Room Air Weight: 170 lb 6.677 oz Body Mass Index (BMI) 29.2 Finger Stick Blood Glucose 85 Laboratory Tests Past 24 Hrs Clinical Impression(s) from Imaging Studies Chest X-Ray 08/05/17 16:44 IMPRESSION: No acute thoracic pathology. Electronically Signed: Sandeep Puente, at 17:49 EDT Tel , Service support , Assessment/Plan This is a 67 years old female patient presented to the emergency room because of chest pain and she is being admitted for evaluation. #1 chest pain: In context of history of CAD status post CABG. EKG revealed no acute ischemic changes. Troponin is negative 1. Chest x-ray showed no acute findings.Patient mentioned that she had nuclear stress test back in 2012 and she developed significant side effects after injecting the nuclear material and she was told that she cannot have stress test. This is according to the patient. Plan: Admit to PCU for observation, cardiac monitoring, serial cardiac enzymes, repeat EKG tomorrow morning, nitroglycerin as needed for pain, Tylenol as needed, gentle IV fluids for hydration, IV antiemetics, cardiology consult, continue aspirin, isosorbide mononitrate, enalapril and metoprolol as well as statins. #2 dehydration: This is based on slightly elevated hemoglobin as well as creatinine. Baseline creatinine has been around 1.1, admission creatinine is 1.39. Clinically, patient is dehydrated. Plan: Gentle IV fluids for hydration, input output chart, repeat BMP tomorrow morning. #2 CAD status post CABG and stents: Plan as above, continue aspirin, beta blockers, enalapril, nitrates and statins. #3 paroxysmal A. fib: Rate is controlled, continue metoprolol for rate control, INR is therapeutic. #4 sick sinus syndrome: Status post pacemaker, heart rate stable. #5 hypertension: Blood pressure stable, baseline systolic is around 90. Continue enalapril, metoprolol and isosorbide mononitrate. #6 hyperlipidemia: Continue statins. #7 history of stroke: Continue aspirin, Coumadin and statins. #8 carotid artery disease: Status post left carotid endarterectomy. #9 DVT prophylaxis: INR is 2.3. This note was generated with [employer] dictation software. It may contain incorrect words, spelling, and punctuation that were not noted in checking the note before signing. Code Visit OBSV E AND M: [id number] Initial observation care L3 08/05/17 1845 <Electronically signed by Devan Sanchez MD> Date Devan Sanchez MD Cosigner Signature: Date (if applicable) CC: Ruslan Kang; Devan Sanchez; Ruslan Kang MD Signed EMERGENCY DEPARTMENT Observed: 08/05/2017 Status: F Source: [place] SUMMARY 6[facility]17 PM [facility] Medical Records Department [address] [place] [address] Emergency Department Summary 08/05/17 1644 MR#: [id number] Acct: [id number] Name: DIVYA JOSEPH Rep #: [id number] : 1950 67 From: Lashaun Dewey MD PCP: Ruslan Kang MD Status: REG ER - ER Visit Summary Date of Service: 08/05/17 Chief Complaint: Chest pain History of Present Illness: The patient is a 67 F presenting with intermittent chest pain. She states she had an episode of chest pain that lasted 45 minutes last night. She states the pain again returned this morning and she has had intermittent substernal chest pain today. She has associated nausea, diaphoresis, shortness of breath. Pain does not radiate. She has a history of hypertension, diabetes, hypercholesteremia, previous smoking. No PE/DVT risk factors. Physical Examination: Vitals are stable. Patient is afebrile. Alert no acute distress. HEENT exam is unremarkable. Neck is supple. Lungs are clear and equal bilaterally. Heart is regular rate and rhythm. Abdomen is soft nontender nondistended. Extremities are unremarkable. Skin is warm and dry. No focal neurologic deficit. Remainder of exam is unremarkable. Emergency Department Course and Treatment: EKG is sinus rate of 67, T-wave inverted in aVL previous was flattened. Patient was given aspirin on arrival. Chest x-ray shows no acute process. CBC shows a hemoglobin of 15.5. Chemistries show creatinine 1.39, glucose 136. INR is 2.3. Troponin is negative. Discussed with the hospitalist for admission. Disposition: Observation Impression: Chest pain This note was generated with [employer] dictation software. It may contain incorrect words, spelling, and punctuation that were not noted in review of the chart prior to signing ED Disposition - Plan for ED Patient: Chief Complaint: Chest Pain Referrals: Ruslan Kang MD [Primary Care Provider] - What to do if you have Problems For any increased pain, shortness of breath, bleeding, nausea or vomiting, chest pain, or any unexpected problems, contact your Primary Care Provider. Call [facility] ([phone]) or report to the closest Emergency Room. Call 911 if necessary. 08/05/174 <Electronically signed by Lashaun Dewey MD> Date Lashaun Castelanignsascha Signature (If Indicated): Date CC: Ruslan Kang; Ruslan Kang MD CHEST 1 VIEW Observed: 08/05/2017 Status: F Source: [place] (PORTABLE) 4:44 PM [facility] REPOSITORY [facility] Imaging Services [address] [place] [address] Chest 1 View (Portable) MR#: [id number] Acct: [id number] Name: DIVYA JOSEPH Rep #: [id number] : 1950 F 67 From: Sandeep Puente MD PCP: Ruslan Kang MD Status: REG ER Study: Chest 1 View (Portable) Date of Exam: 08/05/17 Exam# [id number] Ordering Dr: Lashaun Dewey MD STUDY: X-RAY CHEST REASON FOR EXAM: Female, 67 years old. Chest pain TECHNIQUE: Frontal view of the chest COMPARISON: 01/29/2016. FINDINGS: The lungs are clear. There are no pleural effusions. There is no pneumothorax. The heart is normal in size. Again noted is a pacemaker. The patient is status post sternotomy. RAD/Chest 1 View (Portable) IMPRESSION: No acute thoracic pathology. Electronically Signed: Sandeep Puente, at 17:49 EDT Tel , Service support , CC: Lashaun Dewey MD; Ruslan Kang MD Bilingual Receptionist: Signed CBC W/DIFF, AUTOMATED Collected: 08/05/2017 Status: F Source: [place] 4:30 PM [facility] REPOSITORY TYPE CODE TESTS RESULT OUT OF RANGE REFERENCE UNITS LAB L100.1000 4.4-11.0 K/mm3 Normal WBC 9.7 LAB L100.1200 4.2-5.4 M/mm3 Normal RBC 5.02 LAB L100.1300 12.0-15.0 g/dl High HGB 15.5 LAB L100.1400 37-47 % High HCT 47.8 LAB L100.1500 81-99 fL Normal MCV 95.2 LAB L100.1600 27.0-32.0 pg Normal MCH 30.9 LAB L100.1700 32-36 g/gl Normal MCHC 32.4 LAB L100.1810 11.6-14.6 % Normal RDW CV 13.3 LAB L100.1820 35.1-43.9 fl High RDW SD 46.3 LAB L100.1900 150-450 K/mm3 Normal PLT 217 LAB L100.2000 6.2-12.0 fl High MPV 12.8 LAB L100.2100 47-70 % Normal NEUT% 57.8 LAB L100.2200 19-41 % Normal LY% 26.9 LAB L100.2300 0-10 % High MONO% 10.7 LAB L100.2400 0-5 % Normal EO% 4.2 LAB L100.2500 0-1 % Normal BASO% 0.3 LAB L100.2550 0.0-0.9 % Normal IM GRAN % 0.100 Result Comment: IG% - Immature Granulocytes (promyelocytes, myelocytes and metamyelocytes) > 1% indicates that a LEFT SHIFT is Present. LAB L100.2620 2.0-7.7 X10 3/uL Normal Absolute Neut 5.6 LAB L100.2720 0.83-4.51 X10 3/ul Normal Absolute Lymph 2.61 Performed By: #### L100.0100 #### [facility] [address], [address] BASIC METABOLIC Collected: 08/05/2017 Status: F Source: [place] PROFILE (BMP) 4:30 PM [facility] REPOSITORY TYPE CODE TESTS RESULT OUT OF RANGE REFERENCE UNITS LAB L501.0100 74-106 mg/dL High GLU 136 Result Comment: Fasting Glucose result greater than or equal to 126 mg/dL suggests DIABETES MELLITUS per A.D.A. criteria. Please note revised GLUCOSE reference range effective 2017. LAB L501.1000 7-18 mg/dL Normal BUN 16 LAB L501.1100 0.55-1.02 mg/dL High CREAT,SERUM 1.39 Result Comment: The validity of the calculated GFR AND GFRAA in patients over 70 years has not been determined. Clinical correlation is essential. LAB L501.1110 >60 mL/min Low EST GFR 40 Result Comment: Non- GFR Calc LAB L501.1115 >60 mL/min Low EST GFR - AA 49 Result Comment: GFR Calc LAB L501.1255 ml/min Normal Estimated CRCL 33.91 LAB L501.1300 10-20 RATIO Normal BUN/CRE 11.5 LAB L501.2200 8.5-10 mg/dL Normal .1 CA 9.0 LAB L501.5300 136-14 mmol/L Normal 5 NA 137 LAB L501.5600 3.5-5. mmol/L Normal 1 K 4.0 LAB L501.5900 98-107 mmol/L Normal CL 106 LAB L501.6100 21.0-3 mmol/L Normal 2.0 CO2 23.0 LAB L501.6200 5-15 Normal GAP 8 Performed By: #### L500.2500, L501.4010 #### [facility] [address] [facility]. [place], [place], [address] TROPONIN-I Collected: 08/05/2017 Status: F Source: [place] 4:30 PM [facility] REPOSITORY TYPE CODE TESTS RESULT OUT OF RANGE REFERENCE UNITS LAB L501.4010 <0.045 ng/mL Normal < 0.015 TROPONIN-I Result Comment: TROPONIN-I EXPECTED VALUES <0.045 Negative 0.045 - 0.590 Consistent with Cardiac Damage > OR = 0.600 Critical Value Not every elevated troponin is indicative of MS. These values should be used with clinical judgement in examining the patient's clinical picture for diagnosis. To establish a diagnosis of MS versus myocardial injury, there must be a demonstrated rise and/or fall in the troponin values, in addition to ischemic symptoms, EKG changes, new regional wall motion abnormality, and/or angiographical evidence. PLEASE NOTE: REFERENCE RANGES EDITED 17 Performed By: #### L500.2500, L501.4010 #### [facility] [address] [place], [address] PROTHROMBIN TIME W/INR Collected: 08/05/2017 Status: F Source: [place] 4:30 PM [facility] REPOSITORY TYPE CODE TESTS RESULT OUT OF RANGE REFERENCE UNITS LAB L300.4150 11.7-14.9 SECONDS High PROTIME 25.8 LAB L300.4200 Normal INR 2.3 Performed By: #### L300.3900 #### [facility] [address] [place], [address] PROTHROMBIN TIME W/INR Collected: 08/04/2017 Status: F Source: [place] 10:32 AM [facility] REPOSITORY TYPE CODE TESTS RESULT OUT OF RANGE REFERENCE UNITS LAB L300.4150 11.7-14.9 SECONDS High PROTIME 24.9 LAB L300.4200 Normal INR 2.2 Performed By: #### L300.3900 #### [facility] [address] [place], [address] HGB A1C GLYCOHB Collected: 07/21/2017 Status: F Source: [facility] 5:03 PM [facility] REPOSITORY TYPE CODE TESTS RESULT OUT OF RANGE REFERENCE UNITS LAB L550.93637 4.3-6.0 % Normal HGB A1C 5.5 GLYCOHB Performed By: #### L550.13093 #### [facility] [address] [place] [address] LOWER EXT ARTERIAL Observed: 07/06/2017 Status: F Source: [place] STUDY 11:01 AM [facility] REPOSITORY [facility] Cardiovascular Services [address] [place] [address] 07/06/17 1059 MR#: [id number] Acct: [id number] Name: DIVYA JOSEPH Rep #: [id number] : 1950 67 From: William Kraus MD Attending Dr: William Kraus MD Status: REG CLI Ordering Dr: Date: 07/06/17 Location: [facility] Sex: F C Admitted: Arterial Study - Arterial Study Arterial Study: Date of scan 06/29/[address] Kraus Indication is claudication. Interpretation: Right lower extremity with peers of fairly normal pulsatile flow from the thigh down to the ankle out through the digits duplex shows triphasic flow actually at the ankle with an RANJAN of 0.880.84 with exercise there is no after exercising at 1.4 mph 5% grade and did secondary to shortness of breath there is no change in the RANJAN 1 minute 0.8-3 minutes 0.945 minutes 1.07 Left lower extremity fairly again normal pulsatile flow from the thigh down to the calf ankle out through the digits slightly diminished there duplex again shows more of a triphasic waveform noted with an RANJAN 0.81 posterior tibial 0.82 dorsalis pedis. With exercise again 1.4 mph 5% grade ended at 1-1/2 minutes due to shortness of breath fatigue leg pain this decreased down to 0.67 then up to 0.790.92. Impression: 1. Right lower extremity with mild arterial occlusive disease with no significant change with exercise. 2. Left lower extremity with mild arterial occlusive disease with a slight decrease down from 0.8-0.67 with exercise. Further evaluation as clinically warranted 07/06/17 1101 <Electronically signed by William Kraus MD> Date William Kraus MD CC: Ruslan Kang; William Kraus MD Date Dictated: 07/06/17 1059 Date Transcribed: 07/06/17 105 Bilingual Receptionist: PHILL Signed PROTHROMBIN TIME W/INR Collected: 06/24/2017 Status: F Source: [place] 2:19 PM [facility] REPOSITORY TYPE CODE TESTS RESULT OUT OF RANGE REFERENCE UNITS LAB L300.4150 11.7-14.9 SECONDS High PROTIME 32.8 LAB L300.4200 Normal INR 3.2 Performed By: #### L300.3900 #### [facility] [address] [place], [address] OFFICE VISIT REPORT Observed: 06/20/2017 Status: F Source: [place] 9:37 AM [facility] Services [place] [address] OFFICE VISIT Date of Service: 04/19/17 MR#: [id number] Acct: [id number] Patient: DIVYA JOSEPH Rep #: [id number] : 1950 Provider: Amarilis Griffiths Age/Sex: 67/F Location: [facility] [place] Status: Signed Comments Summary Comments: Dual Chamber Pacemaker Evaluation: Interrogation shows no MS episodes and no NSVT episodes since 01/17/17. Left pectoral pocket/incision w/o s/s of infection or erosion. Pt offers no cardiac complaints. Presenting rhythm shows AAI pacing @ 60 ppm. ART DIRECTOR=<1%. Battery longevity approx 10 yrs. Lead impedances, sensing and pace/sense thresholds remain stable. No parameter changes made. Counters cleared. Next f/u appt scheduled for in 3 mos. Device Device Date Interviewed: 04/19/17 Follow-up Location: in office Interview Reason: routine follow up [employer]: [employer] Name: Katey HOLGUIN1 Model: K064 Serial #: [id number] Implant Date: 04/09/13 Year(s): 4 Implant Physician: Dr. Quinn Pérez/[facility] Patient Characteristics Atrial Indication: sick sinus syndrome, Paroxysmal atrial fibrillation (atrial tachycardia) Patient Substrate: Syncope Ejection fraction %: 60 to 64 ([id number]) By: Echo Underlying rhythm: Sinus bradycardia Pacemaker Dependent: No Device Characteristics Device: Dual Chamber Type: Pacemaker Remote Follow-Up: No Device Physical Exam Yes Incision well healed Leads Lead #1 [employer] Vulcanizer Lead 1: Guidant Model Lead 1: 4135 Serial# Lead 1: [id number] Date Implanted Lead 1: 04/09/13 Position Lead 1: RA Lead #2 [employer]canizer Lead 2: Guidant Model Lead 2: 4136 Serial# Lead 2: [id number] Date Implanted Lead 2: 04/09/13 Position Lead 2: RV Diagnostics Pacing % RA Pacin % RV Pacin Mode Switching Total # Episodes: 0 % Mode switched: 0 Measurements Battery Magnet Rate (bmp): 100 Battery Status: KRANTHI Predicted Remaining Longevity (months or years): 10 years RA Measurements Signal Amplitude (mV): 4.7 Impedance (Ohms): 555 Threshold Voltage: 0.5 @ PW(ms): 0.5 RV Measurements Signal Amplitude (mV): 25 Impedance (Ohms): 785 Threshold Voltage: 1.2 @ PW(ms): 0.4 Celso Settings Pacemaker Mode: DDDR Base Rate: 60 bpm Max Track Rate: 130 bpm Max Sensor Rate: 130 bpm Maximum AV Delay: 300 msec Billing Codes PM Device Codes: PM Dev Prog Eval, Dual Assessment AND Plan Problems 1. Presence of cardiac pacemaker Z95.0 2. Paroxysmal atrial fibrillation I48.0 3. Sick sinus syndrome with tachycardia I49.5 S/P Pacemaker implantation 04/09/2013; 4. Syncope and collapse R55 05/06/17 1504 <Electronically signed by Amarilis Griffiths > Date Amarilis Griffiths 06/20/17 0937<Electronically signed by Tian Art MD> Cosigner Signature: Date (if applicable) Tian Art MD CC: PROTHROMBIN TIME W/INR Collected: 06/09/2017 Status: F Source: [place] 10:37 AM [facility] REPOSITORY TYPE CODE TESTS RESULT OUT OF RANGE REFERENCE UNITS LAB L300.4150 11.7-14.9 SECONDS High PROTIME 34.9 LAB L300.4200 Normal INR 3.4 Performed By: #### L300.3900 #### [facility] [address] [facility] [place], [address] CAROTID DUPLEX Observed: 05/11/2017 Status: F Source: [place] ULTRASOUND 8:25 AM [facility] REPOSITORY [facility] Cardiovascular Services [address] [place] [address] [place] [address] Carotid Duplex Ultrasound 05/09/17 1247 MR#: [id number] Acct: [id number] Name: DIVYA JOSEPH Rep #: [id number] : 1950 67 From: William Kraus MD Attending Dr: William Kraus MD Status: REG CLI Ordering Dr: William Kraus MD Date: 05/09/17 Location: [facility] Sex: F C Admitted: Reason For Study: CAROTID STENOSIS Rt. Velocities/BP Lt. Velocities/BP Prox CCA 52.2/14.7 cm/sec. Prox CCA 65.7/27.0 cm/sec. Mid CCA 49.2/16.4 cm/sec. Mid CCA 53.9/20.5 cm/sec. Dist CCA 44.8/17.7 cm/sec. Dist CCA 57.5/22.9 cm/sec. Prox ICA 65.1/27.6 cm/sec. Prox ICA 84.4/28.7 cm/sec. Mid ICA 52.8/19.9 cm/sec. Mid ICA 65.1/25.8 cm/sec. Dist ICA 74.5/31.1 cm/sec. Dist ICA 63.3/18.2 cm/sec. Rt. ICA/CCA = 74.5/49.2=1.5. Lt. ICA/CCA = 84.4/53.9=1.6. Prox ECA 179.0/30.4 cm/sec. Prox ECA 97.3/17.0 cm/sec. Rt. Vert. 41.9/12.6 cm/sec. Lt. Vert. 39.5/15.2 cm/sec. Right Extracranial There is heterogeneous, irregular atherosclerotic plaque noted in the right common carotid artery. There is heterogeneous, irregular atherosclerotic plaque noted in the right internal carotid artery. There is heterogeneous, smooth atherosclerotic plaque noted in the right external carotid artery. Antegrade flow is noted in the right vertebral artery. Left Extracranial There is intimal thickening but no significant atherosclerotic plaque noted in the left common carotid artery. There is intimal thickening but no significant atherosclerotic plaque noted in the left internal carotid artery. There is intimal thickening but no significant atherosclerotic plaque noted in the left external carotid artery. Antegrade flow is noted in the left vertebral artery. Procedure Carotid Duplex 21698. The exam was diagnostic. Exam performed in department. Interpretation Summary Mild (<50%) stenosis right extracranial internal carotid. Mild (<50%) stenosis left extracranial internal carotid. Flow within the vertebral arteries is antegrade bilaterally. Ordering Physician: William Kraus Referring Physician: Candice Kang Performed By: Veena Toth, THERESA, RVT 05/11/17824 Date William Kraus MD CC: Ruslan Kang; William Kraus MD Date Dictated: 05/09/17 1247 Date Transcribed: 05/11/17824 Bilingual Receptionist: Signed PROTHROMBIN TIME W/INR Collected: 04/26/2017 Status: F Source: [place] 2:02 PM [facility] REPOSITORY TYPE CODE TESTS RESULT OUT OF RANGE REFERENCE UNITS LAB L300.4150 11.7-14.9 SECONDS High PROTIME 31.0 LAB L300.4200 Normal INR 3.1 Performed By: #### L300.3900 #### [facility] [address] [place], [address] LIVER PROFILE Collected: 04/19/2017 Status: F Source: [place] 2:16 PM [facility] REPOSITORY Order Comment: Order Date: 09/22/16 Order Info: [id number] - *Hepatic Function Panel Order Info: [id number] - *Lipid Profile CC PCP Comments: 12 hours fasting, may have water. TYPE CODE TESTS RESULT OUT OF RANGE REFERENCE UNITS LAB L501.1500 6.4-8.2 g/dL Normal T PROT 7.3 LAB L501.1800 3.2-5.0 g/dL Normal ALB 3.7 LAB L501.1950 2.2-4.2 g/dL Normal GLOB 3.6 LAB L501.4100 15-37 U/L Normal AST 22 LAB L501.4305 45-117 U/L Normal ALK P 81 LAB L501.4405 13-56 U/L Normal ALT 34 Result Comment: Please note revised ALT reference range effective 2017. LAB L501.4600 0.20-1.00 mg/dL Normal T BILI 0.50 LAB L501.4700 0.00-0.30 mg/dL Normal D BILI 0.10 Performed By: #### L500.3400 #### [facility] [address] [place], [place], [address] LIPID PROFILE Collected: 04/19/2017 Status: F Source: [place] 2:16 PM [facility] REPOSITORY Order Comment: Order Date: 09/22/16 Order Info: [id number] - *Hepatic Function Panel Order Info: [id number] - *Lipid Profile CC PCP Comments: 12 hours fasting, may have water. TYPE CODE TESTS RESULT OUT OF RANGE REFERENCE UNITS LAB L501.4900 200 mg/dL Normal CHOL 191 Result Comment: <200 mg/dL Desirable 200-240 mg/dL Borderline >240 mg/dL High Risk LAB L501.5000 mg/dL Normal TRIG 147 Result Comment: The drugs N-Acetylcysteine and Metamizole may falsely depress this assay. Serum Triglycerides Reference Interval Normal <150 mg/dL Borderline high 150 - 199 mg/dL High 200 - 499 mg/dL Very High > or = 500 mg/dL LAB L501.6400 mg/dL Normal HDL 47 Result Comment: The drugs N-Acetylcysteine and Metamizole may falsely depress this assay. Reference Range HDL <40 mg/dL Low HDL Cholesterol HDL >or= 60 mg/dL High HDL Cholesterol LAB L501.6500 0-130 mg/dL Normal LDL 115 LAB L501.6600 5-40 mg/dL Normal VLDL 29 Performed By: #### L500.4100 #### [facility] [address] [place], [place], [address] CARDIOLOGY VISIT Observed: 04/11/2017 Status: F Source: [place] REPORT 4:52 PM [facility] REPOSITORY [facility] [address] [place] [address] OFFICE VISIT Date of Service: 04/11/17 MR#: [id number] Acct: [id number] Name: DIVYA JOSEPH Rep #: [id number] : 1950 Provider: RACHANA Luna Age/Sex: 67/F Location: [facility] Status: Signed HPI HPI Details: DIVYA JOSEPH, is a 67 F who presents to the office today for a cardiac outpatient follow-up. Patient is a history of coronary artery disease status post bypass surgery with SANDHU to the LAD, SVG to diagonal artery and SVG to the RCA, angioplasty and stenting to proximal LAD, peripheral vascular disease with a left carotid endarterectomy, hypertension, hyperlipidemia, and pacemaker placement for cardiac dysrhythmias such as sinus bradycardia and PAT. Pt. denies chest, arm, jaw, or neck discomfort. Her exercise tolerance is stable though decreased in the winter and with walking in the warmer weather. Her exercise is also limited d/t emphysema at times. Pt. denies symptoms of CHF, lightheadedness, dizziness, near syncope, or syncopal episodes. Pt. denies edema or claudication issues. Pt. denies orthopnea, PND, fever, chills, blood in urine, blood in stool, myalgia, or unexplainable fatigue. Pt. states some palpitations when exertion such as going up steps. She states pain in her right leg at times d/t arthritis. Pacemaker check from January 2017 showed atrial burn of 0%, 7 NSVT episodes showing supraventricular tachycardia with a one-to-one conduction, and very longevity approximately 10 years. Heart catheterization from August 2013 showed an estimated ejection fraction 65%, angiographically significant appearing coronary artery disease, SVG graft to RCA/right PDA to be patent, SVG graft to OM to be chronically occluded, and SANDHU to LAD to be small yet patent and no intragraft with a significant appearing disease. Medical management was recommended. Echocardiogram from March 2013 showed an estimated ejection fraction of 60%, mild concentric LVH, mildly enlarged left atrium, mild focal aortic valve thickening, and mild focal aortic valve calcification. Intake Vital Signs04/11/17 Height 5 ft 4 in 04/11/17 Weight: 169 lb 04/11/17 Body Mass Index (BMI) 29.0 04/11/17 Blood Pressure 110/74 Intake Visit Reasons: 6 M FU Allergies atorvastatin calcium [From Lipitor] Allergy (Verified 03/01/17 12:02) Hives metoprolol succinate [From Toprol XL] Allergy (Verified 03/01/17 12:02) Rash niacin [From Niaspan Extended-Release] Allergy (Verified 03/01/17 12:02) Rash Penicillins Allergy (Verified 03/01/17 12:02) Rash Sulfa (Sulfonamide Antibiotics) Allergy (Verified 03/01/17 12:02) Itching atorvastatin Adverse Reaction (Severe, Verified 03/29/17 11:36) Unknown Medications Aspirin [Aspirin, Baby] 81 mg PO DAILY@0800 08/23/13 [History Confirmed 03/29/17] Isosorbide Mononitrate [Monoket] 10 mg PO BID 08/23/13 [History Confirmed 03/29/17] Metoprolol Tartrate [Lopressor (beta juwan)] 12.5 mg PO BID 08/23/13 [History Confirmed 03/29/17] Pravastatin [Pravachol] 80 mg PO QHS 08/23/13 [History Confirmed 03/29/17] Meloxicam [Mobic] 15 mg PO DAILY 03/01/17 [History Confirmed 03/29/17] Warfarin [Coumadin (PBKC)] 2.5 mg PO SUMOSA 03/01/17 [History Confirmed 04/11/17] Warfarin [Coumadin (PBKC)] 5 mg PO TUWETHFR 03/01/17 [History Confirmed 04/11/17] budesonide-formoterol HFA 160 mcg-4.5 mcg/actuation aerosol inhaler 2 puff INHALATION Q12H 03/29/17 [History Confirmed 03/29/17] cetirizine 10 mg tablet 5 mg PO BID tab 03/29/17 [History Confirmed 03/29/17] nitroglycerin 0.4 mg sublingual tablet 0.4 mg SUBLINGUAL Q5M PRN 03/29/17 [History Confirmed 03/29/17] enalapril maleate 5 mg tablet 5 mg PO QDAY #90 tab 04/07/17 [Rx Confirmed 04/11/17] potassium chloride ER 10 mEq tablet,extended release 20 meq PO DAILY #60 tab 04/07/17 [Rx Confirmed 04/11/17] Ejection fraction %: 60 to 64 PFSH Social History Smoking Status: Former smoker ROS Const Const: Negative for fatigue, weakness, body ache, fever(s) or chills ENT ENT: Negative for dizziness Cardio Chest Pain: No Palpitations: Positive for Yes (when walking up steps at times) Edema: None Muscle aches with walking: None Resp Respiratory: Negative for SOB with activity, SOB at rest, SOB orthopnea\SOB lying down or paroxysmal nocturnal dyspnea GI GI: Negative nausea, black,tarry stools, bright, red blood in stools or vomiting blood/hematemesis : Negative for hematuria or frequent nighttime urination/ nocturia Musc Musc: Negative for muscle aches/ myalgia Neuro Neuro: Negative for weakness, Negative for dizziness, Negative for lightheadedness, Negative for near syncope, Negative for syncope, Negative for orthostatic symptoms Endo Endo: Negative for fatigue Cardiology Exam Const Appearance: cooperative, healthy appearing, comfortable and no acute distress Orientation: alert, awake and oriented x3 Head Head: normal to inspection Mouth: oral mucosae normal Neck Neck: no JVD and normal visual inspection Carotids: normal carotid upstroke Chest Chest inspection: normal inspection of the chest and normal respiratory effort Auscultation: Bilateral: Clear to Auscultation Cardio Rate: regular rate Rhythm: regular rhythm Heart sounds: S1 normal and S2 normal; negative rub or gallop GI GI: normal to inspection Neuro General: alert, awake, oriented x3 and CN's II-XI intact bilaterally Skin Skin: no rashes or lesions noted Extremities Pulses: Normal: Right Posterior Tibial Pulse, Left Posterior Tibial Pulse, Right Radial Pulse, Left Radial Pulse Lower Extremity Edema: None: Bilateral Psych Psychological: normal affect Assessment AND Plan 1. Atherosclerosis of nightm[place] coronary artery of [place] heart without angina pectoris I25.10 S/P CABG 06/29/2006 with SANDHU to LAD, SVG to diagonal, AND SVG to RCA; PCI to prox LAD 06/2006 post CABG; Plan - STACY Friend Patient denies any chest pain, arm pain, jaw pain, neck pain, shortness of breath, or fatigue suggestive of angina at this time. We will continue to monitor this. We will not make any medication regimen changes and will continue risk factor modification. 2. Paroxysmal atrial fibrillation I48.0 Plan - STACY Friend Patient appears to maintain regular rhythm. Patient will continue current medications which include beta-juwan and Coumadin therapy. 3. Essential hypertension I10 STACY Serrato Patient's blood pressure is well-controlled today in the office. We will continue to monitor this. We will not make any medication regimen changes. 4. Sick sinus syndrome with tachycardia I49.5 S/P Pacemaker implantation 04/09/2013; STACY Serrato Patient's most recent pacemaker check from January 2017 as noted above. Patient's pacemaker/ICD appears to be functioning appropriately. We will continue to monitor this with routine/scheduled follow-ups. 5. Hx of CABG Z95.1 06/29/2006 with SANDHU to LAD, SVG to diagonal, AND SVG to RCA Plan STACY Najera As noted above. 6. Mixed hyperlipidemia E78.2 STACY Serrato Patient's most recent lipid panel from December 2016 show cholesterol: 175, HDL: 42, LDL: 104, and triglyceride: 144. Patient will have her lipid and liver panel drawn at her earliest convenience. We will continue current cholesterol-lowering medication in the interim. 7. Left-sided carotid artery disease I77.9 S/P left carotid endarterectomy June 2006; Plan STACY Najera Patient will continue to follow-up with Dr. Kraus for this. Plan Detail Additional Comments - STACY Friend Discussed the above patient with Dr. Art, he agrees with the plan of care. Thank you for allowing us to participate in the patients plan of care, if you have any questions please do not hesitate to call. This note was generated using a voice recognition system and there may be incorrect words, spelling or punctuation that were not noted when reviewing the office note prior to saving. Follow Up 10 Months (PFM) Coding Level of Care Code Off vis,est,level 3 Diagnoses Atherosclerosis of nightm[place] coronary artery of [place] heart without angina pectoris I25.10 Paroxysmal atrial fibrillation I48.0 Essential hypertension I10 Hypertension type: essential hypertension Sick sinus syndrome with tachycardia I49.5 Hx of CABG Z95.1 Mixed hyperlipidemia E78.2 Hyperlipidemia type: mixed hyperlipidemia Left-sided carotid artery disease I77.9 Laterality: left Coding Level of Care Code Off vis,est,level 3 Diagnoses Atherosclerosis of [place] coronary artery of [place] heart without angina pectoris I25.10 Paroxysmal atrial fibrillation I48.0 Essential hypertension I10 Hypertension type: essential hypertension Sick sinus syndrome with tachycardia I49.5 Hx of CABG Z95.1 Mixed hyperlipidemia E78.2 Hyperlipidemia type: mixed hyperlipidemia Left-sided carotid artery disease I77.9 Laterality: left 04/11/17 1530 <Electronically signed by Erasmo Luna ELECTRONIC TECHNOLOGIST-C> Date Erasmo Luna ELECTRONIC TECHNOLOGIST-C 04/11/17 1652<Electronically signed by Tian Art MD> Cosigner Signature: Date (if applicable) Tian Art MD CC: Ruslan Kang MD PROTHROMBIN TIME W/INR Collected: 04/11/2017 Status: F Source: [place] 2:09 PM [facility] REPOSITORY TYPE CODE TESTS RESULT OUT OF RANGE REFERENCE UNITS LAB L300.4150 11.7-14.9 SECONDS High PROTIME 31.0 LAB L300.4200 Normal INR 3.1 Performed By: #### L300.3900 #### [facility] [address] [facility] [place], [address] EMERGENCY DEPARTMENT Observed: 03/01/2017 Status: F Source: [place] SUMMARY 6:34 PM [facility] REPOSITORY [facility] Medical Records Department [address] [place] [address] Emergency Department Summary 03/01/17 1622 MR#: [id number] Acct: [id number] Name: DIVYA JOSEPH Rep #: [id number] : 1950 67 From: Alanna Kim MD PCP: Ruslan Kang MD Status: DEP ER - ER Visit Summary Date of Service: 03/01/17 Chief Complaint: Pelvic pain History of Present Illness: The patient is a 67 F with swelling to her private area since December. She had hemorrhoids at that time that have since resolved. Patient states she had a couple days of vaginal discharge initially, but that has been several months. Patient states she now has pain in the right lower quadrant for the past 2 or 3 days and is not sure if that is related to her other symptoms. She has not yet seen her primary care doctor or a CREEL OPERATOR physician. With both ovaries removed. Gallbladder has been removed. Physical Examination: Vital signs are unremarkable. Patient sitting upright in bed in no acute distress. Head and neck examination is normal. Heart is regular rate and rhythm. Lungs are clear. Abdomen is soft with reproducible tenderness in the right lower quadrant. There is no guarding or rebound. Hypoactive bowel sounds are noted. Pelvic examination was no labial edema or erythema. No lesions are noted. Neuro exam is unremarkable. Test Results: CBC was normal white count. Hemoglobin is concentrated at 15.1. Chemistry studies are significant only for creatinine 1.14. INR is therapeutic at 2.5. Urinalysis shows 0-5 white cells 0-[address] scan abdomen and pelvis with contrast reveals no bowel obstruction. Appendix is visualized and appears normal. No acute findings are appreciated. Emergency Department Course and Treatment: She was morphine, Zofran, and IV fluids. Test results were discussed with her. At this time I cannot explain the cause of her pain. She is advised to follow bland diet. She is given 12 tabs of [place] for home. Return for worsening symptoms or follow up with her primary care physician as soon as possible. Treatment Plan: [] Disposition: Discharge Impression: Abdominal pain, uncertain etiology This note was generated with [employer] dictation software. It may contain incorrect words, spelling, and punctuation that were not noted in review of the chart prior to signing ED Disposition - Plan for ED Patient: Disposition: Home or Assisted Living Chief Complaint: Abd Pain Instructions: ED Abdominal Pain Unkn Cause Prescriptions: Hydrocodone Bitart/Apap 5-325 [[place] 5/325] 1 tablet PO Q4H PRN PRN #12 tablet PRN Reason: Pain Hydrocodone Bitart/Apap 5-325 [[place] 5/325] 1 - 2 tablet PO Q6H PRN PRN #12 tablet PRN Reason: Pain Referrals: Ruslan Kang MD [Primary Care Provider] - 1 Week if not improving What to do if you have Problems For any increased pain, shortness of breath, bleeding, nausea or vomiting, chest pain, or any unexpected problems, contact your Primary Care Provider. Call [facility] ([phone]) or report to the closest Emergency Room. Call 911 if necessary. 03/01/17 1834 <Electronically signed by Alanna Kim MD> Date Alanna Kim MD Cosigner Signature (If Indicated): Date CC: Ruslan Kang MD DISCHARGE INSTRUCTION Observed: 03/01/2017 Status: F Source: [place] 4:28 PM [facility] REPOSITORY [facility] Medical Records Department [address] [place] [address] Discharge Instruction 03/01/17 1623 MR#: [id number] Acct: [id number] Name: DIVYA JOSEPH Rep #: [id number] : 1950 67 From: Alanna Kim MD PCP: Ruslan Kang MD Status: REG ER ED Disposition - Plan for ED Patient: Disposition: Home or Assisted Living Chief Complaint: Abd Pain Instructions: ED Abdominal Pain Unkn Cause Prescriptions: Hydrocodone Bitart/Apap 5-325 [[place] 5/325] 1 - 2 tablet PO Q6H PRN PRN #12 tablet PRN Reason: Pain Referrals: Ruslan Kang MD [Primary Care Provider] - 1 Week if not improving What to do if you have Problems For any increased pain, shortness of breath, bleeding, nausea or vomiting, chest pain, or any unexpected problems, contact your Primary Care Provider. Call [facility] ([phone]) or report to the closest Emergency Room. Call 911 if necessary. 03/01/17 162 <Electronically signed by Alanna Kim MD> Date Alanna Kim MD Cosigner Signature (If Indicated): Date CC: Ruslan Kang MD PROTHROMBIN TIME W/INR Collected: 03/01/2017 Status: F Source: [place] 1:42 PM [facility] REPOSITORY Order Comment: REDRAW. INITIAL TUBE OVERFILLED TYPE CODE TESTS RESULT OUT OF RANGE REFERENCE UNITS LAB L300.4150 11.7-14.9 SECONDS High PROTIME 25.9 LAB L300.4200 Normal INR 2.5 Performed By: #### L300.3900 #### [facility] [address] [place], [address] CBC W/DIFF, AUTOMATED Collected: 03/01/2017 Status: F Source: [place] 1:02 PM [facility] REPOSITORY TYPE CODE TESTS RESULT OUT OF RANGE REFERENCE UNITS LAB L100.1000 4.4-11.0 K/mm3 Normal WBC 9.7 LAB L100.1200 4.2-5.4 M/mm3 Normal RBC 4.89 LAB L100.1300 12.0-15.0 g/dl High HGB 15.1 LAB L100.1400 37-47 % Normal HCT 45.8 LAB L100.1500 81-99 fL Normal MCV 93.7 LAB L100.1600 27.0-32.0 pg Normal MCH 30.9 LAB L100.1700 32-36 g/gl Normal MCHC 33.0 LAB L100.1810 11.6-14.6 % Normal RDW CV 14.2 LAB L100.1820 35.1-43.9 fl High RDW SD 47.2 LAB L100.1900 150-450 K/mm3 Normal PLT 198 LAB L100.2000 6.2-12.0 fl High MPV 12.5 LAB L100.2100 47-70 % Normal NEUT% 67.5 LAB L100.2200 19-41 % Normal LY% 20.6 LAB L100.2300 0-10 % Normal MONO% 8.7 LAB L100.2400 0-5 % Normal EO% 2.7 LAB L100.2500 0-1 % Normal BASO% 0.2 LAB L100.2550 0.0-0.9 % Normal IM GRAN % 0.300 Result Comment: IG% - Immature Granulocytes (promyelocytes, myelocytes and metamyelocytes) > 1% indicates that a LEFT SHIFT is Present. LAB L100.2620 2.0-7.7 X10 3/uL Normal Absolute Neut 6.6 LAB L100.2720 0.83-4.51 X10 3/ul Normal Absolute Lymph 2.00 Performed By: #### L100.0100 #### [facility] [address] [place], [address] URINALYSIS, COMPLETE Collected: 03/01/2017 Status: F Source: [place] 1:02 PM [facility] REPOSITORY Order Comment: Order Date: 03/01/17 Has pt arrived? Y How was Urine Obtained? CLEAN CATCH TYPE CODE TESTS RESULT OUT OF RANGE REFERENCE UNITS LAB L400.3000 Yellow COLOR Normal Yellow LAB L400.3050 Clear Normal CLARITY Clear LAB L400.3200 Normal mg/dl Normal GLUCOSE, UR Normal LAB L400.3300 Negative mg/dL Normal BILIRUBIN URINE Negative LAB L400.3400 Negative mg/dl High 5 KETONE UR LAB L400.3465 1.002-1.030 Normal SP.GR. DIPSTX 1.020 LAB L400.3550 5.0 - 8.0 pH UR Normal 6.0 LAB L400.3600 Negative mg/dl High PROT 15 DIPSTX LAB L400.3700 Normal mg/dl Normal UROBILI Normal LAB L400.3750 Negative Normal NITRITE UR Negative LAB L400.3780 Negative /ul High 25 OCCULT BLOOD-UR LAB L400.3800 Negative /ul High LEUK 25 ESTERASE LAB L400.4050 0-5 /hpf WBC Normal 0-5 SEEN LAB L400.4100 0-5 /hpf 0 Normal RBC-UA SEEN LAB L400.4150 5-10 /hpf SQUAM Normal EPI 0-5 SEEN LAB L400.4300 None Seen /hpf 0 Normal BACTERIA SEEN LAB L400.4350 <or=2+ /hpf 1+ Normal MUCUS, URINE LAB L400.4400 0-5 /lpf Normal HYALINE CAST 5-10 SEEN Performed By: #### L400.0001 #### [facility] [address] [place], [address] BASIC METABOLIC Collected: 03/01/2017 Status: F Source: [place] PROFILE (BMP) 1:02 PM [facility] REPOSITORY TYPE CODE TESTS RESULT OUT OF RANGE REFERENCE UNITS LAB L501.0100 70-110 mg/dL Normal GLU 97 LAB L501.1000 7-18 mg/dL Normal BUN 17 LAB L501.1100 0.55-1.02 mg/dL High 1.14 CREAT,SERUM Result Comment: The validity of the calculated GFR AND GFRAA in patients over 70 years has not been determined. Clinical correlation is essential. LAB L501.1110 >60 mL/min Low EST GFR 51 Result Comment: Non- GFR Calc LAB L501.1115 >60 mL/min Normal EST GFR - AA 61 Result Comment: GFR Calc LAB L501.1255 ml/min Normal Estimated CRCL 41.35 LAB L501.1300 10-20 RATIO Normal BUN/CRE 14.9 LAB L501.2200 8.5-10 mg/dL Normal .1 CA 9.0 LAB L501.5300 136-14 mmol/L Normal 5 NA 139 LAB L501.5600 3.5-5. mmol/L Normal 1 K 4.2 LAB L501.5900 98-107 mmol/L Normal CL 106 LAB L501.6100 21.0-3 mmol/L Normal 2.0 CO2 27.0 LAB L501.6200 5-15 Normal GAP 6 Performed By: #### L500.2500 #### [facility] [address] [place], [address] ABDOMEN/PELVIS WITH Observed: 03/01/2017 Status: F Source: [place] CONTRAST 12:54 PM [facility] REPOSITORY [facility] Imaging Services [address] [place] [address] Abdomen/Pelvis WITH Contrast MR#: [id number] Acct: [id number] Name: DIVYA JOSEPH Rep #: [id number] : 1950 F 67 From: Kody Estrada DO PCP: Ruslan Kang MD Status: REG ER Study: Abdomen/Pelvis WITH Contrast Date of Exam: 03/01/17 Exam# [id number] Ordering Dr: Alanna Kim MD STUDY: CT ABDOMEN AND PELVIS WITH CONTRAST REASON FOR EXAM: Female, 67 years old. Pelvic pain, vaginal discharge and swelling RADIATION DOSAGE (If Supplied By Facility): CTDIvol = ( 17.01 ) mGy, DLP = ( 938.84 ) mGycm TECHNIQUE: Transaxial images were obtained from the dome of the diaphragm to the symphysis pubis with oral contrast. 100mL ml of Isovue 300 contrast was administered. Sagittal and coronal images were reconstructed. Individualized dose optimization techniques were used for this CT. COMPARISON: None. FINDINGS: The visualized lung bases are unremarkable. 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 Cardiac pacemaker wires are seen. Normal liver. There are surgical clips in the gallbladder fossa consistent with a prior cholecystectomy. Normal spleen. There are small splenules. Normal pancreas. Normal bilateral adrenal glands. There are small bilateral renal cysts. No hydronephrosis. Renal vascular calcifications are seen. Normal visualized stomach. Normal small intestine. Normal colon. The appendix is visualized and appears normal. There is diffuse atherosclerotic calcification of the abdominal aorta, without a demonstrated aneurysm. Normal inferior vena cava. Normal retroperitoneum. Normal urinary bladder. There is absence of the uterus consistent with a prior hysterectomy. Normal abdominal wall. Degenerative changes are seen within the spine. There is grade 1 anterolisthesis of L5 on S1 due to bilateral spondylolysis at L5. CT/Abdomen/Pelvis WITH Contrast IMPRESSION: No bowel obstruction or acute renal pathology. Additional nonacute findings, as detailed above. Electronically Signed: Kody Estrada DO at 15:38 EST Tel , Service support , CC: Alanna Kim MD; Ruslan Kang MD Bilingual Receptionist: Signed ALLERGIES ALLERGIES DATE TYPE / CODE NAME / CODE REACTION SEVERITY SOURCE Drug metoprolol Rash Unknown [place] 8 Allergy/339860726( succinate/N285180 [facility]) 628(RXNORM) Hospital Repository Drug atorvastatin Hives Unknown [place] 8 Allergy/681989909( calcium/U93975645 [facility] SNOMED CT) 2(RXNORM) Hospital Repository Drug Penicillins/F0010 Rash Unknown [place] 8 Allergy/733582775( 70263(RXNORM) [facility] SNOMED CT) Hospital Repository Drug Sulfa Itching Unknown [place] 8 Allergy/112438870( (Sulfonamide [facility] SNOMED CT) Antibiotics)/F001 Hospital 198965(RXNORM) Repository Drug niacin/A479259249 Rash Unknown [place] 8 Allergy/361797118( (RXNORM) [facility] SNOMED CT) Hospital Repository Drug gluten/H660812031 Food Allergy Unknown [place] 8 Allergy/248390719( (RXNORM) [facility] SNOMED CT) Hospital Repository Miscellaneous radionuclide It almost Unknown [place] 8 Allergy/038250771( killed me [facility] SNOMED CT) Hospital Repository Drug atorvastatin/F006 Unknown SV [place] 8 Allergy/002827449( 875832(RXNORM) [facility] SNOMED CT) Hospital Repository ENCOUNTERS ENCOUNTERS ADMIT/DISCHARGE ACCOUNT ADMITTING ENCOUNTER LOCATION SOURCE NUMBER CLASS 02/15/2018 [id number] Ambulatory [place] 1 [facility] ing:PSN Repository 02/06/2018/ [id number] Ambulatory BMSBuilding:B [place] 8 0 [facility] Repository 02/06/2018 [id number] Ambulatory [place] 1 [facility] ing:LAB Repository 02/03/2018 [id number] Ambulatory BMSBuilding:B [place] 6 [facility] Repository 12/23/2017/ [id number] Ambulatory [place] 8 4 [facility] ing:LAB Repository 12/14/2017/ [id number] Ambulatory BMSBuilding:B [place] 8 3 [facility] Repository 12/02/2017/ [id number] Ambulatory [place] 8 9 [facility] ing:LAB Repository 10/18/2017 [id number] Ambulatory [place] 0 [facility] ing:MTLAB Repository 10/13/2017/ [id number] Ambulatory [place] 8 1 [facility] ing:LAB Repository 09/09/2017/ [id number] Ambulatory [place] 8 1 [facility] ing:LAB Repository 09/09/2017/ [id number] Ambulatory BMSBuilding:B [place] 8 2 [facility] Repository 08/06/2017/ [id number] [facility], Inpatient [place] 8 9 [place] Encounter [facility] ing:PCURoom: Repository GGA603Snm: 1 08/06/2017 [id number] [place], Ambulatory BMSBuilding:B [place] 3 [place] [facility] Repository 08/06/2017 [id number] [facility], Ambulatory BMSBuilding:B [place] 3 [place] MS.[facility] Repository 08/06/2017/ [id number] Ambulatory BMSBuilding:W [place] 8 7 [facility] Repository 08/06/2017/ [id number] Ambulatory BMSBuilding:W [place] 8 2 [facility] Repository 08/06/2017/ [id number] Ambulatory BMSBuilding:W [place] 8 1 [facility] Repository 08/05/2017 [id number] [place], Ambulatory BMSBuilding:B [place] 5 [place] [facility] Repository 08/05/2017/ [id number] Ambulatory BMSBuilding:W [place] 8 2 [facility] Repository 08/04/2017/ [id number] Ambulatory [place] 8 9 [facility] ing:LAB Repository 07/21/2017 [id number] Ambulatory [address] [place] g:H.MASL Repository 06/29/2017 [id number] Ambulatory [place] 2 [facility] ing:CVS Repository 06/24/2017/ [id number] Ambulatory [place] 8 7 [facility] ing:LAB Repository 05/09/2017 [id number] Ambulatory [place] 1 [facility] ing:CVS Repository 04/26/2017/ [id number] Ambulatory [place] 8 8 [facility] ing:LAB Repository 04/19/2017 [id number] Ambulatory [place] 2 [facility] ing:LAB Repository 04/19/2017/ [id number] Ambulatory BMSBuilding:B [place] 8 2 [facility] Repository 04/11/2017/ [id number] Ambulatory BMSBuilding:B [place] 8 3 [facility] Repository 04/06/2017 [id number] Ambulatory BMSBuilding:B [place] 2 [facility] Repository 03/01/2017/ [id number] Emergency [place] 7 3 [facility] ing:ED Repository PAYERS PAYERS ENCOUNTER GUARANTOR PAYER SUBSCRIBER SOURCE 02/15/2018 SHANI Primary DIVYA Ivan [id number] Insurance:MEDICARE EDWARDSDOB: [facility] [address] Number: Repository [address]Sqm: 330 [id number] [phone] (HP) Date:2018-02-06 02/15/2018 Secondary SHANIAmadeo Ivan Insurance:OLYMPIA FIELDS EDWARDSDOB: [facility] Number: [id number] [place] [address] [id number] Repository Date:9518-04-05[address] [address]OQ: 02/15/2018 Tertiary NOT GIVENUNK [place] Insurance:SELF PAY [facility] Number: Effective Repository Date:2018-02-06 02/06/2018 SHANI Primary DIVYA Ivan [id number] Insurance:MEDICARE EDWARDSDOB: [facility] [address] A [address] Number: Repository [address]Onx: 330 [id number] [phone] () Date:2017-04-11 02/06/2018 Secondary SHANI [place] Insurance:[facility] EDWARDSB: Community OTHERPolicy Number: [id number] [facility] [id number] Repository Date:0802-40-20RO [address] [place], [place] [address], [place] [address]DW: 02/06/2018 Tertiary NOT GIVENUNK [place] Insurance:SELF PAY [facility] Number: Effective Repository Date:2018-02-06 02/06/2018 SHANI Primary SHNAIAmadeo Ivan [id number] Insurance:MEDICARE EDWARDSDOB: Community [address] PART A [facility] [id number] Number: Repository [address]Lzm: 330 [id number] [phone] () Date:2017-01-15 02/06/2018 Secondary SHANI [place] [facility] Number: [id number] Hospital [id number] Repository Date:1524-93-12FU [address] [place] [address]JA: 02/06/2018 Tertiary NOT GIVENUNK [place] Insurance:SELF PAY [facility] Number: Effective Repository Date:2018-01-05 02/03/2018 SHANI Primary DIVYA Ivan [id number] Insurance:MEDICARE EDWARDSDOB: Community [address] PART A [facility] [id number] Number: Repository [address]Afl: 330 [id number] [phone] () Date:2018-02-03 02/03/2018 Secondary SHANI [place] [facility] Number: [id number] Hospital [id number] Repository Date:9374-23-43SJ [address] [place] [address]XD: 02/03/2018 Tertiary NOT GIVENUNK [place] Insurance:SELF PAY [facility] Number: Effective Repository Date:2018-02-03 12/23/2017 SHANI Primary SHANIAmadeo Ivan [id number] Insurance:MEDICARE EDWARDSDOB: Community [address] PART A [facility] [id number] Number: Repository [address]Vst: 330 [id number] [phone] () Date:2017-01-15 12/23/2017 Secondary SHANI [place] Insurance:[facility] EDWARDSDOB: Community OTHERPolicy Number: [id number] Hospital [id number] Repository Date:4003-15-08OL [address] [place] [address]HM: 12/23/2017 Tertiary NOT GIVENUNK [place] Insurance:SELF PAY [facility] Number: Effective Repository Date:2017-12-07 12/14/2017 SHANI Primary DIVYA Ivan [id number] Insurance:MEDICARE EDWARDSDOB: Community [address] PART A [facility] [id number] Number: Repository [address]Sge: 330 [id number] [phone] () Date:2017-12-14 12/14/2017 Secondary SHANI [place] [facility]cy[facility] Number: [id number] Hospital [id number] Repository Date:3963-66-22YL [address] [place] [address]JL: 12/14/2017 Tertiary NOT GIVENUNK [place] Insurance:SELF PAY [facility] Number: Effective Repository Date:2017-12-14 12/02/2017 SHANI Primary DIVYA Ivan [id number] Insurance:MEDICARE EDWARDSDOB: Community [address] PART A [facility] [id number] Number: Repository [address]Ypp: 330 [id number] [phone] () Date:2017-01-15 12/02/2017 Secondary SHANI [place] Insurance:STATE [employer] EDWARDSDOB: Community OTHERPolicy Number: [id number] Hospital [id number] Repository Date:7914-97-29HP [address] [place] [address] 129[address]OT: 12/02/2017 Tertiary NOT GIVENUNK [place] Insurance:SELF PAY [facility] Number: Effective Repository Date:2017-11-08 10/18/2017 SHANI Primary DIVYA Ivan [id number] Insurance:MEDICARE EDWARDSDOB: Community [address] Number: Repository [address]Eio: ([phone] [id number] [phone] () Date:2017-10-18 10/18/2017 Secondary SHANI [place] Insurance:OLYMPIA FIELDS EDWARDSDOB: Community OTHERPolic Number: [id number] [place], [place] [id number] Repository Date:6754-83-48BK [address] [place] [address] 73[address]MM: 10/18/2017 Tertiary NOT GIVENUNK [place] Insurance:SELF PAY [facility] Number: Effective Repository Date:2017-10-18 10/13/2017 SHANI Primary DIVYA Ivan [id number] Insurance:MEDICARE EDWARDSDOB: Community [address] PART [address] Number: Repository [address]Est: 330 [id number] [phone] () Date:2017-01-15 10/13/2017 Secondary SHANI [place] [facility]: [facility] OTHERPolic Number: [id number] [place] [address] [id number] Repository Date:2277-78-82TW [address] [place] [address]YH: 10/13/2017 Tertiary NOT GIVENUNK [place] Insurance:SELF PAY [facility] Number: Effective Repository Date:2017-10-06 09/09/2017 SHANI Primary DIVYA Ivan [id number] Insurance:MEDICARE EDWARDSDOB: Community [address] Number: Repository [id number]: [phone] [id number] [phone] (HP) Date:2017-01-15 09/09/2017 Secondary SHANI [place] Insurance:STATE FARM EDWARDSDOB: Community OTHERPolicy Number: [id number] Hospital [id number] Repository Date:9599-63-20IU [address] [place] [address]VQ: 09/09/2017 Tertiary NOT GIVENUNK [place] Insurance:SELF PAY [facility] Number: Effective Repository Date:2017-08-04 09/09/2017 SHANI Primary DIVYA Ivan [id number] Insurance:MEDICARE EDWARDSDOB: Community [address] PART [address] Number: Repository [id number]: [phone] [id number] [phone] () Date:2017-09-05 09/09/2017 Secondary SHANI [place] Insurance:OLYMPIA FIELDS EDWARDSDOB: Community OTHERPolicy Number: [id number] Hospital [id number] Repository Date:6739-48-70IU [address] [place] [address]PO: 09/09/2017 Tertiary NOT GIVENUNK [place] Insurance:SELF PAY [facility] Number: Effective Repository Date:2017-09-09 08/06/2017 SHANI Primary DIVYA Ivan [id number] Insurance:MEDICARE EDWARDSDOB: Community [address] PART A [address] Number: Repository [id number]: [phone] [id number] [phone] () Date:2017-08-05 08/06/2017 Secondary SHANI [place] Insurance:OLYMPIA FIELDS EDWARDSDOB: [facility] OTHERPolicy Number: [id number] [place] [address] [id number] Repository Date:0161-77-65FP [address] [place] [address]VE: 08/06/2017 Tertiary NOT GIVENUNK [place] Insurance:SELF PAY [facility] Number: Effective Repository Date:2017-08-05 08/06/2017 SHANI Primary DIVYA Ivan [id number] Insurance:MEDICARE EDWARDSDOB: Community [address] PART A [address] [place] Number: Repository [address]Gyj: 330 [id number] [phone] (HP) Date:2017-08-05 08/06/2017 Secondary SHANI [place] Insurance:STATE FARM EDWARDSDOB: Community OTHERPolicy Number: [address] [place], [place] [id number] Repository Date:7274-55-90GE [address] [place], [place] [address] [address]IU: 08/06/2017 Tertiary NOT GIVENUNK [place] Insurance:SELF PAY [facility] Number: Effective Repository Date:2017-08-06 08/06/2017 SHANI Primary SHANI [place] [id number] Insurance:MEDICARE EDWARDSDOB: Community [address] PART A [address] Number: Repository [address]Uyn: 330 [id number] [phone] () Date:2017-08-05 08/06/2017 Secondary SHANI [place] Insurance:[facility] EDWARDSDOB: Community OTHERPolicy Number: [address] [place] [address] [id number] Repository Date:1577-69-65OP [address] [place] [address] 12[address]PN: 08/06/2017 Tertiary NOT GIVENUNK [place] Insurance:SELF PAY [facility] Number: Effective Repository Date:2017-08-06 08/06/2017 SHANI Primary SHANI [place] [id number] Insurance:MEDICARE EDWARDSDOB: Community [address] Number: Repository [id number]: 330 [id number] [phone] (HP) Date:2017-08-05 08/06/2017 Secondary SHANI [place] Insurance:[facility] EDWARDSDOB: Community OTHERPolic Number: [address] [place] [address] [id number] Repository Date:7502-14-45FN [address] [facility] [address]BC: 08/06/2017 Tertiary NOT GIVENUNK [place] Insurance:SELF PAY [facility] Number: Effective Repository Date:2017-08-06 08/06/2017 SHANI Primary SHANI [place] [id number] Insurance:MEDICARE EDWARDSDOB: Community [address] Number: Repository [id number]: 330 [id number] [phone] (HP) Date:2017-08-05 08/06/2017 Secondary SHANI [place] Insurance:[facility] EDWARDSDOB: [facility] OTHERPolic Number: [address] [place], [place] [id number] Repository Date:1947-99-88GD [address] [place] [address] 05307MO: 08/06/2017 Tertiary NOT GIVENUNK [place] Insurance:SELF PAY [facility] Number: Effective Repository Date:2017-08-06 08/06/2017 SHANI Primary SHANI [place] [id number] Insurance:MEDICARE EDWARDSDOB: Community [address] Number: Repository [id number]: 330 [id number] [phone] (HP) Date:2017-08-05 08/06/2017 Secondary SHANI [place] Insurance:[employer] EDWARDSDOB: [facility] OTHERPolic Number: [address] [place] [address] [id number] Repository Date:0291-52-44HC [address] [place] [address] 04659VX: 08/06/2017 Tertiary NOT GIVENUNK [place] Insurance:SELF PAY [facility] Number: Effective Repository Date:2017-08-06 08/05/2017 SHANI Primary SHANI [place] [id number] Insurance:MEDICARE EDWARDSDOB: Community [address] Number: Repository [id number]: 330 [id number] [phone] (HP) Date:2017-08-05 08/05/2017 Secondary SHANI [place] Insurance:[employer] FIELDS EDWARDSDOB: [facility] OTHERPolic Number: [address] [place] [address] [id number] Repository Date:2004-88-18KL [address] [place] [address] 12210GL: 08/05/2017 Tertiary NOT GIVENUNK [place] Insurance:SELF PAY [facility] Number: Effective Repository Date:2017-08-05 08/05/2017 SHANI Primary SHANI [place] [id number] Insurance:MEDICARE EDWARDSDOB: Community [address] [facility] [id number] Number: Repository [id number]: [phone] [id number] [phone] (HP) Date:2017-08-05 08/05/2017 Secondary SHANI [place] [facility] Number: [id number] [place], [place] [id number] Repository Date:3864-89-67LS [address] [place] [address] 47399WR: 08/05/2017 Tertiary NOT GIVENUNK [place] Insurance:SELF PAY [facility] Number: Effective Repository Date:2017-08-05 08/04/2017 SHANI Primary SHANI [place] [id number] Insurance:MEDICARE EDWARDSDOB: Community [address] [facility] [id number] Number: Repository [address]Oxg: [phone] [id number] [phone] (HP) Date:2017-01-15 08/04/2017 Secondary SHANI [place] [facility] Number: [id number] [place] [address] [id number] Repository Date:3984-59-61UD [address] [place] [address] 70855DQ: 08/04/2017 Tertiary NOT GIVENUNK [place] Insurance:SELF PAY [facility] Number: Effective Repository Date:2017-07-05 07/21/2017 SHANI Primary SHANI [facility] [id number] Insurance:[facility] Hospital[facility] [address] Number: Repository [address] [place] [address] [id number] [address]Jer: (330) Date:2008-12-05P O [phone] (HP) [address] CODE SP617[place]NB[place] [address]OL: 07/21/2017 Secondary DIVYA [facility] Insurance:[facility] OF INSURANCEPolicy Repository Number: [id number] Date: [address] [place] [address] 33951EW: 06/29/2017 SHANI Primary DIVYA Ivan [id number] Insurance:MEDICARE EDWARDSDOB: Community [address] Number: Repository [address]Cok: [phone] [id number] [phone] () Date:2017-06-21 06/29/2017 Secondary DIVYA Ivan [facility] OTHERPolic Number: [id number] [id number] Repository Date:7511-40-09HM [address] [place] [address] 14848OI: 06/29/2017 Tertiary NOT GIVENUNK [place] Insurance:SELF PAY [facility] Number: Effective Repository Date:2017-06-21 06/24/2017 SHANI Primary DIVYA Ivan [id number] Insurance:MEDICARE EDWARDSDOB: Community [address] Number: Repository [id number]: [phone] [id number] [phone] () Date:2017-01-15 06/24/2017 Secondary DIVYA Ivan [facility] OTHERPolicy Number: [id number] [id number] Repository Date:1923-76-13IV [address] [place] [address] 22484WZ: 06/24/2017 Tertiary NOT GIVENUNK [place] Insurance:SELF PAY [facility] Number: Effective Repository Date:2017-06-06 05/09/2017 SHANI Primary DIVYA Ivan [id number] Insurance:MEDICARE EDWARDSDOB: Community [address] Number: Repository [id number]: 330 [id number] [phone] (HP) Date:2017-04-12 05/09/2017 Secondary SHANI [place] Insurance:[facility] EDWARDSDOB: Community OTHERPolicy Number: [id number] [id number] Repository Date:0681-69-32HU [address] [place] [address] 48254CC: 05/09/2017 Tertiary NOT GIVENUNK [place] Insurance:SELF PAY [facility] Number: Effective Repository Date:2017-04-12 04/26/2017 SHANI Primary SHANI [place] [id number] Insurance:MEDICARE EDWARDSDOB: Community [address] Number: Repository [id number]: 330 [id number] [phone] () Date:2017-01-15 04/26/2017 Secondary SHANI [place] Insurance:[facility] EDWARDSDOB: Community OTHERPolic Number: [id number] [id number] Repository Date:2894-81-51JD [address] [place] [address] 22112GN: 04/26/2017 Tertiary NOT GIVENUNK [place] Insurance:SELF PAY [facility] Number: Effective Repository Date:2017-01-05 04/19/2017 SHANI Primary SHANI [place] [id number] Insurance:MEDICARE EDWARDSDOB: Community [address] Number: Repository [id number]: 330 [id number] [phone] (HP) Date:2017-04-19 04/19/2017 Secondary SHANI [place] Insurance:[facility] EDWARDSDOB: Community OTHERPolic Number: [id number] [place] [address] [id number] Repository Date:5988-03-80GT [address] [place] [address] 10066PE: 04/19/2017 Tertiary NOT GIVENUNK [place] Insurance:SELF PAY Community [facility] Number: Effective Repository Date:2017-04-19 04/19/2017 SHANI Primary SHANI [place] [id number] Insurance:MEDICARE EDWARDSDOB: Community [address] Number: Repository [id number]: 330 [id number] [phone] (HP) Date:2017-02-09 04/19/2017 Secondary SHANI [place] Insurance:[facility] EDWARDSDOB: Community OTHERPolic Number: [id number] [id number] Repository Date:0203-68-64WF [address] [place] [address] 629[address]JQ: 04/19/2017 Tertiary NOT GIVENUNK [place] Insurance:SELF PAY [facility] Number: Effective Repository Date:2017-02-09 04/11/2017 SHANI Primary SHANI [place] [id number] Insurance:MEDICARE EDWARDSDOB: Community [address] Number: Repository [id number]: 330 [id number] [phone] (HP) Date:2017-03-14 04/11/2017 Secondary SHANI [place] Insurance:[employer] FIEL[employer] EDWARDSDOB: [facility] OTHERPolic Number: [id number] [id number] Repository Date:9113-95-88SE [address] [place] [address] 911[address]YE: 04/11/2017 Tertiary NOT GIVENUNK [place] Insurance:SELF PAY [facility] Number: Effective Repository Date:2017-03-14 04/06/2017 Shani Primary Shani [place] [id number] Insurance:MEDICARE EdwardsDOB: Community [address] Number: Repository [address]Ifp: 330 [id number] [phone] (HP) Date:2017-02-12 04/06/2017 Secondary Shani [place] Insurance:[facility] EdwardsDOB: Community OTHERPolicy Number: [id number] [id number] Repository Date:5579-76-16BO [address] [place] [address] 61337JL: 04/06/2017 Tertiary NOT GIVENUNK [place] Insurance:SELF PAY [facility] Number: Effective Repository Date:2017-02-12 03/01/2017 Shani Primary Divya Ivan [id number] Insurance:MEDICARE EdwardsDOB: Community [address] [facility] [id number] [facility] [place] Number: Repository [id number]: (102) [id number] [phone] () Date:2017-03-01 03/01/2017 Secondary Divya Ivan Insurance:STATE [employer]ARM EdwardsDOB: [facility] Number: [id number] [id number] Repository Date:8090-65-17NN [address] [place], [place] [address]K[place] [address]JU: 03/01/2017 Tertiary NOT GIVENUNK [place] Insurance:SELF PAY [facility] Number: Effective Repository Date:2017-03-01
== END 2018-02-06 13:00 | disposition home or self-care (01) ==
LOC: LAB 12:42
PROVIDERS: PCP Family Medicine; Referring Provider Internal Medicine Cardiovascular Disease; Visit Provider Internal Medicine Cardiovascular Disease
DX: I48.0 Paroxysmal atrial fibrillation (principal); Z79.01 Long term (current) use of anticoagulants
CPT/HCPCS: 36415; 85610

== ENCOUNTER 2018-03-14 10:34 | Outpatient (RCR) | payer MEDICARE, OTHER, SELFPAY ==
[2018-02-06 13:34] VITALS: BMI 29.0
[2018-03-10 16:05] LABS: Prothrombin Time (Protime)PT. 40.7 SECONDS (11.7-14.9)
[2018-03-10 16:29] LABS: International Normalized Ratio 4.2
[2018-03-14 11:15] LABS: International Normalized Ratio 1.6; Prothrombin Time (Protime)PT. 18.7 SECONDS (11.7-14.9)
== END 2018-03-14 11:00 | disposition home or self-care (01) ==
LOC: LAB 10:34
PROVIDERS: PCP Family Medicine; Referring Provider Internal Medicine Cardiovascular Disease; Visit Provider Internal Medicine Cardiovascular Disease
DX: I48.0 Paroxysmal atrial fibrillation (principal); Z79.01 Long term (current) use of anticoagulants
CPT/HCPCS: 36415; 85610

== ENCOUNTER 2018-04-21 09:14 | Outpatient (RCR) | payer MEDICARE, OTHER, SELFPAY ==
[2018-02-06 13:34] VITALS: BMI 29.0
[2018-04-07 16:52] LABS: International Normalized Ratio 3.1; Prothrombin Time (Protime)PT. 31.8 SECONDS (11.7-14.9)
[2018-04-21 11:58] LABS: Prothrombin Time (Protime)PT. 31.2 SECONDS (11.7-14.9)
[2018-04-21 12:00] LABS: AST(SGOT) 19 U/L (15-37); Alanine Aminotransfer ALT/SGPT 26 U/L (13-56); Albumin, Serum 3.4 g/dL (3.2-5.0); Alkaline Phosphatase 84 U/L (45-117); Bilirubin, Direct 0.13 mg/dL (0.00-0.30); Cholesterol 192 mg/dL (200); Globulin 3.5 g/dL (2.2-4.2); High Density Lipoprotein 45 mg/dL; Protein, Total 6.9 g/dL (6.4-8.2); Triglycerides 186 mg/dL; Very Low Density Lipoprotein 37 mg/dL (5-40)
== END 2018-04-21 12:00 | disposition home or self-care (01) ==
LOC: MTLAB 09:14
PROVIDERS: Physician Assistant Medical; PCP Family Medicine; Referring Provider Internal Medicine Cardiovascular Disease; Visit Provider Internal Medicine Cardiovascular Disease
DX: I48.0 Paroxysmal atrial fibrillation (principal); Z79.01 Long term (current) use of anticoagulants; E78.5 Hyperlipidemia, unspecified
CPT/HCPCS: 36415; 80061; 80076; 85610

== ENCOUNTER 2018-05-05 14:33 | Outpatient (RCR) | payer MEDICARE, OTHER, SELFPAY ==
[2018-02-06 13:34] VITALS: BMI 29.0
[2018-05-05 16:15] LABS: International Normalized Ratio 2.7; Prothrombin Time (Protime)PT. 29.1 SECONDS (11.7-14.9)
== END 2018-05-05 15:00 | disposition home or self-care (01) ==
LOC: MTLAB 14:33
PROVIDERS: PCP Family Medicine; Referring Provider Internal Medicine Cardiovascular Disease; Visit Provider Internal Medicine Cardiovascular Disease
DX: I48.0 Paroxysmal atrial fibrillation (principal); Z79.01 Long term (current) use of anticoagulants
CPT/HCPCS: 36415; 85610

== ENCOUNTER 2018-05-05 16:22 | Emergency (ER) | payer MEDICARE, OTHER, SELFPAY ==
[2018-02-06 13:34] VITALS: BMI 29.0
[2018-05-05 16:23] VITALS: BP 107/78; PULSE 65; RESP 28; TEMP 36.4; O2SAT 95; BMI 30.5
--- NOTE | 2018-05-05 16:40 | RAD_ITS ---
STUDY: X-RAY CHEST REASON FOR EXAM: Female, 68 years old. Coughing, SOB. Emphysema. TECHNIQUE: PA and lateral chest. COMPARISON: 08/05/2017. FINDINGS: Sternotomy wires and surgical clips are compatible with prior CABG. Pacemaker is again noted on the left. The lungs are clear and expanded. There is no demonstrated pleural abnormality. Normal size heart. Normal mediastinum and preeti. Normal visualized pulmonary arteries. Normal visualized aortic arch and descending thoracic aorta. Normal visualized thoracic spine. Normal visualized ribs, clavicles, and shoulders. There is no demonstrated abnormality of the visualized soft tissue structures of the upper abdomen. RAD/Chest PA and Lateral IMPRESSION: No acute process. Electronically Signed: Brenna Bryant MD at 18:01 EST Tel , Service support ,
[2018-05-05 16:51] VITALS: RESP 20; O2SAT 96
[2018-05-05 16:52] VITALS: PULSE 64; RESP 12; O2SAT 96
--- NOTE | 2018-05-05 16:57 | ED.DEP ---
ED Disposition - Plan for ED Patient: Disposition: Home or Assisted Living Instructions: Acute Bronchitis Prescriptions: Azithromycin [Zithromax Z-Gurjit] 250 mg PO UD #1 box Prednisone [Deltasone] 20 mg PO DAILY #7 tab Referrals: Ruslan Kang MD [Primary Care Provider] - 1 Week if not improving Additional Instructions: Prednisone daily to decrease inflammation in your lungs and to decrease the wheezing as needed. Give this 5 days. If not improving or getting worse she may start the Zithromax. More than likely this is a viral illness and you do not need antibiotics. Follow-up with your physician if feeling worse.
--- NOTE | 2018-05-05 16:58 | ED.DCSUM_ITS ---
- ER Visit Summary Date of Service: 05/05/18 Chief Complaint: Cough and subjective fever History of Present Illness: The patient is a 68 F history of hypertension, COPD, degenerative disc disease controlled diabetes. Patient states for the last 2 days she is had a cough and body aches. Subjective fever but only documented at 99 at home. Nonproductive cough. Diarrhea this morning since resolved. No dysuria. Reportedly wheezing. Physical Examination: Well-appearing older female no acute distress. Vital signs are stable. Temperature 97.5. Pulse ox 95%. HEENT exam unremarkable moist weeks membranes. Neck nontender no lymphadenopathy. Lungs dry hacking cough but no rales, rhonchi or wheezing currently. Equal and symmetrical. Good air movement. Heart regular rate and rhythm no murmur. Rate about 65. Chest wall nontender. Abdomen soft nontender. Moving all 4 extremities. Calves nontender without edema or cords neurologically she is awake and alert with no focal motor deficits. Back exam unremarkable skin exam unremarkable. Test Results: Two-view chest x-ray obtained shows no acute abnormality. She is a left-sided pacemaker. She has had a prior sternotomy. There is no infiltrate or pneumonia read by myself. Emergency Department Course and Treatment: Patient be started on prednisone for her wheezing as needed at home. This appears to be a viral infection. She does not need antibiotics. Treatment Plan: Prednisone next several days. Follow-up with your doctor as needed. Return if worse. Disposition: Discharge Impression: Acute bronchitis History of pacemaker and anticoagulated on Coumadin This note was generated with [employer] dictation software. It may contain incorrect words, spelling, and punctuation that were not noted in review of the chart prior to signing ED Disposition - Plan for ED Patient: Referrals: Ruslan Kang MD [Primary Care Provider] -
== END 2018-05-05 17:24 | disposition home or self-care (01) ==
LOC: ED 17:11
PROVIDERS: Emergency Provider Emergency Medicine; PCP Family Medicine
DX: J20.9 Acute bronchitis, unspecified (principal); Z95.0 Presence of cardiac pacemaker; Z79.01 Long term (current) use of anticoagulants; F03.90 Unspecified dementia, unspecified severity, without behavioral disturbance, psychotic disturbance, mood disturbance, and anxiety; I10 Essential (primary) hypertension; J44.9 Chronic obstructive pulmonary disease, unspecified; Z87.891 Personal history of nicotine dependence; Z79.52 Long term (current) use of systemic steroids; Z79.82 Long term (current) use of aspirin; Z79.899 Other long term (current) drug therapy
CPT/HCPCS: 36415; 71046; 85610; 94760; 99282

== ENCOUNTER 2018-05-15 21:12 | Inpatient (IN) | payer MEDICARE, OTHER, SELFPAY ==
[2018-05-15 21:14] VITALS: TEMP 35.8; BMI 30.5
[2018-05-15 21:28] VITALS: BP 150/115; PULSE 123; RESP 23; O2SAT 100
--- NOTE | 2018-05-15 21:39 | ED.RN ---
RN CALLED FOR EKG, PULLED OLD EKGS FOR
--- NOTE | 2018-05-15 21:41 | EKG12_ITS ---
Test Reason : CP Blood Pressure : / mmHG Vent. Rate : 130 BPM Atrial Rate : 130 BPM P-R Int : 130 ms QRS Dur : 070 ms QT Int : 316 ms P-R-T Axes : 028 043 059 degrees QTc Int : 465 ms Sinus tachycardia Otherwise normal ECG Confirmed by STEVE MARIN, RADHA ([id number]), editorial cartoonist TAMY COLMENARES ([id number]) on 05/18/2018 11:00:54 AM Referred By: Tian Emery Confirmed By:RADHA WILSON MD
--- NOTE | 2018-05-15 21:55 | RAD_ITS ---
STUDY: X-RAY CHEST REASON FOR EXAM: Female, 68 years old. Nausea, vomiting and diarrhea. TECHNIQUE: Single AP portable view of the chest. COMPARISON: May 05, 2018. FINDINGS: Study is limited due to patient rotation to the right. Telemetry wires overlie the chest. Is overall increased density over the left lung when compared to the right although this is thought to be due to overlying soft tissue. There is no demonstrated pleural abnormality. Sternal cerclage wires and vascular clips are present from a prior sternotomy and coronary artery bypass graft procedure (CABG). The heart is normal in size. Stable left-sided cardiac pacemaker. Normal mediastinum and preeti. Normal visualized pulmonary arteries. Normal visualized aortic arch and descending thoracic aorta. The thoracic spine is obscured by the mediastinum. There is degenerative osteoarthritis of the bilateral shoulders. There is no demonstrated abnormality of the visualized soft tissue structures of the upper abdomen. RAD/Chest 1 View (Portable) IMPRESSION: Rotated image. There is no acute abnormality or major interval change. Electronically Signed: Mark Velez DO at 22:34 EDT Tel [phone], Service support ,
[2018-05-15 21:58] VITALS: O2SAT 99
[2018-05-15] MEDS: Ondansetron 4 MG/2 ML Vial IV (22:01)
[2018-05-15 22:57] LABS: Absolute Lymphocyte Count 1.64 X10^3/ul (0.83-4.51); Absolute Neutrophil Count 24.5 X10^3/uL (2.0-7.7); Basophil# 0.03 X10^3/uL; Basophil% 0.1 % (0-1); Eosinophil# 0.01 X10^3/uL; Hematocrit 28.2 % (37-47); Hemoglobin 9.1 g/dl (12.0-15.0); Lymphocyte # 1.64 X10^3/ul (4.0); Lymphocyte % 5.9 % (19-41); Mean Corp Hgb Conc 32.3 g/gl (32-36); Mean Corpuscular Hgb 30.8 pg (27.0-32.0); Mean Corpuscular Volume 95.6 fL (81-99); Mean Platelet Vol. 11.9 fl (6.2-12.0); Monocyte# 1.61 X10^3/uL; Monocyte% 5.8 % (0-10); Neutrophil # 24.47 X10^3/uL (2.7-7.7); Neutrophil % 87.6 % (47-70); Platelet Count 251 K/mm3 (150-450); RBC Distribution Width CV 12.9 % (11.6-14.6); RBC Distribution Width SD 43.2 fl (35.1-43.9); Red Blood Count 2.95 M/mm3 (4.2-5.4); White Blood Count 27.9 K/mm3 (4.4-11.0)
[2018-05-15 22:58] LABS: Differential Indicated SCAN CRITERIA MET; POSITIVE COUNT NO; POSITIVE DIFFERENTIAL YES; POSITIVE MORPHOLOGY NO
[2018-05-15 23:05] VITALS: BP 98/55; PULSE 108; RESP 16; TEMP 36.8; O2SAT 100
[2018-05-15 23:09] LABS: Partial Thromboplast Time 43.1 Seconds (24.1-36.2)
[2018-05-15] MEDS: proMETHazine 25 MG/ML Syringe 6.25 MG IV (23:11)
[2018-05-15 23:12] LABS: International Normalized Ratio 3.5
[2018-05-15] MEDS: fentaNYL 100 MCG/2 ML Ampul 50 MCG IV (23:12)
[2018-05-15 23:14] LABS: ALB/GLOB Ratio 0.9 RATIO (0.9-2.4); AST(SGOT) 16 U/L (15-37); Alanine Aminotransfer ALT/SGPT 24 U/L (13-56); Albumin, Serum 2.6 g/dL (3.2-5.0); Alkaline Phosphatase 59 U/L (45-117); Anion Gap 15 (5-15); BUN 72 mg/dL (7-18); BUN/Creat Ratio 47.4 RATIO (10-20); Calcium,Total 7.2 mg/dL (8.5-10.1); Chloride 111 mmol/L (98-107); Creatinine, Serum 1.52 mg/dL (0.55-1.02); EST Glomerular Filtration Rate 36 mL/min (>60); Est Glom Filt Rate - Afr Amer 44 mL/min (>60); Estimated Creatinine Clearance 30.59 ml/min; Globulin 2.9 g/dL (2.2-4.2); Glucose 177 mg/dL (74-106); Potassium 3.6 mmol/L (3.5-5.1); Protein, Total 5.5 g/dL (6.4-8.2); Sodium Level 141 mmol/L (136-145)
[2018-05-16] VITALS (23 sets, daily range): BP systolic 98–137; BP diastolic 36–110; PULSE 65–127; RESP 16–25; TEMP 36.2–37.6; O2SAT 92–100; BMI 29.3
--- NOTE | 2018-05-16 00:28 | ED.RN ---
RECENT VITAL AND WBC COUNT INITIATED SEPSIS ALERT. 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 ED DR. STATED HE FELT PT WAS NOT SEPSIS AND S/S/S ARE RELATED TO GI BLEED. SEPSIS SCREEN AND ALERT CANCELED. Grace CHAHAL RN [id number]
--- NOTE | 2018-05-16 00:47 | HP.PCM_ITS ---
Problem List (1) Acute blood loss anemia Status: Acute (2) Presence of stent in coronary artery Status: Chronic Comment: PTCA/stent to ostial and prox LAD 06/2006 (3) Essential hypertension Status: Chronic (4) Hx of CABG Status: Chronic Comment: CABG x3- 06/29/2006 with SANDHU to LAD, SVG to diagonal, & SVG to RCA (5) Paroxysmal atrial fibrillation Status: Chronic (6) HLD (hyperlipidemia) Status: Chronic Qualifiers: Hyperlipidemia type: unspecified Qualified Code(s): E78.5 - Hyperlipidemia, unspecified History of Present Illness Date of Admission: 05/16/18 Chief Complaint: melena and hematemesis The patient is a 68 year old F with a significant history of CAD status post CABG and coronary stent; hypertension; hyperlipidemia; paroxysmal A. fib; who presented to the emergency department because of 2-day history of hematemesis and melena. Also patient reports reports nausea; vomiting; diarrhea, lightheadedness and 'blacking out' a couple of times. She lives home by herself and she thinks she does not have enough energy to take care of herself. She was recently treated with Z-Gurjit and prednisone. Her last prednisone dose was about 3 days ago. At the emergency department patient was found to have hemoglobin level of 9.1. Her white count was 27.9. She was found to have elevated troponin of 0.173 and her creatinine was elevated at 1.52. Past Medical History Past Medical History (Chronic Problems): Chronic Problems (Last Reviewed 05/16/18 @ 05:57 by Ron Franco MD) Presence of stent in coronary artery (Chronic) PTCA/stent to ostial and prox LAD 06/2006 Essential hypertension (Chronic) group home current use of anticoagulant (Chronic) Hx of CABG (Chronic ~06/29/06) CABG x3- 06/29/2006 with SANDHU to LAD, SVG to diagonal, & SVG to RCA Carotid artery disease (Chronic) S/P left carotid endarterectomy June 2006; Atherosclerosis of [place] coronary artery of [place] heart without angina pectoris (Chronic) S/P CABG 06/29/2006 with SANDHU to LAD, SVG to diagonal, & SVG to RCA; PCI to prox LAD 06/2006 post CABG; Paroxysmal atrial fibrillation (Chronic) PVD (peripheral vascular disease) (Chronic) ? bilateral LE stents HLD (hyperlipidemia) (Chronic) Sick sinus syndrome with tachycardia (Chronic) S/P Pacemaker implantation 04/09/2013; Cerebrovascular disease (Chronic) hx stroke mild residual left hemiparesis s/p left CEA 2006 mild-mod external carotid disease 05/18 Pacemaker (Chronic) Bradycardia (Chronic) Chronic back pain (Chronic) Tobacco use (Chronic) Depression with anxiety (Chronic) Medical History: Medical History (Last Reviewed 05/16/18 @ 07:02 by Ron Franco MD) Presence of stent in coronary artery (Chronic) Z95.5 PTCA/stent to ostial and prox LAD 06/2006 Essential hypertension (Chronic) I10 group home current use of anticoagulant (Chronic) Z79.01 Carotid artery disease (Chronic) I77.9 S/P left carotid endarterectomy June 2006; Atherosclerosis of [place] coronary artery of [place] heart without angina pectoris (Chronic) I25.10 S/P CABG 06/29/2006 with SANDHU to LAD, SVG to diagonal, & SVG to RCA; PCI to prox LAD 06/2006 post CABG; Paroxysmal atrial fibrillation (Chronic) I48.0 Allergies atorvastatin calcium [From Lipitor] Allergy (Verified 05/15/18 21:13) Hives gluten Allergy (Verified 05/15/18 21:13) Food Allergy metoprolol succinate [From Toprol XL] Allergy (Verified 05/15/18 21:13) Rash niacin [From Niaspan Extended-Release] Allergy (Verified 05/05/18 16:25) Rash Penicillins Allergy (Verified 05/15/18 21:13) Rash Sulfa (Sulfonamide Antibiotics) Allergy (Verified 05/15/18 21:13) Itching radionuclide Allergy (Uncoded 05/15/18 21:13) It almost killed me stress test radionuclide Home Medications: Ambulatory Orders Medication Instructions Recorded Aspirin [Aspirin, Baby] 81 mg PO DAILY@0800 08/23/13 Meloxicam [Mobic] 15 mg PO DAILY 03/01/17 nitroglycerin 0.4 mg sublingual 0.4 mg SUBLINGUAL Q5M PRN 03/29/17 tablet Enalapril Maleate 2.5 mg PO BID 08/05/17 warfarin 2.5 mg tablet 2.5 mg PO .COMPLEX #0 tab 12/09/17 isosorbide mononitrate 10 mg tablet 10 mg PO BID #60 tab 11/26/18 metoprolol tartrate 25 mg tablet 12.5 mg PO BID #30 tab 01/30/18 pravastatin 80 mg tablet 80 mg PO QHS #30 tab 01/30/18 potassium chloride ER 10 mEq 20 meq PO DAILY #60 tab 05/04/18 tablet,extended release Azithromycin [Zithromax Z-Gurjit] 250 mg PO UD #1 box 05/05/18 Prednisone [Deltasone] 20 mg PO DAILY #7 tab 05/05/18 Surgical History: Surgical History (Last Reviewed 05/16/18 @ 07:02 by Ron Franco MD) Hx of CABG (Chronic) Onset Date: ~06/29/06 Z95.1 CABG x3- 06/29/2006 with SANDHU to LAD, SVG to diagonal, & SVG to RCA History of cholecystectomy Z90.49 History of left-sided carotid endarterectomy Onset Date: ~06/2006 Z98.890 History of total hysterectomy Z90.710 Surgical History: coronary bypass surgery, - - Left carotid endarterectomy, PCI, Hysterectomy, Cholecystectomy, CABG, BL LE stents. Psychiatric History: Anxiety, Depression, - - Claustrophobia [employer] History: No pertinent [employer] history Lives: Alone Smoking Status: Former smoker - *Family History Maternal Family History: Family History (Last Reviewed 05/16/18 @ 07:02 by Ron Franco MD) Mother CVA (cerebral vascular accident) CAD (coronary artery disease) History Items: No pertinent history Paternal Family History: Family History (Last Reviewed 05/16/18 @ 07:02 by Ron Franco MD) Mother CVA (cerebral vascular accident) CAD (coronary artery disease) History Items: No pertinent history Review of Systems Constitutional: Reports: Fatigue. Denies: Chills, Fever, Weight Change HEENT: Denies: Head Aches, Sinus Congestion, Sinus Drainage Cardiovascular: Denies: Chest Pain, Palpitations Respiratory: Reports: Shortness of Breath - Patient thinks it is chronic. Denies: Cough, Shortness of breath at rest, Sputum production Gastrointestinal: Reports: Abdominal Pain, Hematemesis, Nausea, Melena, Vomiting Genitourinary: Denies: Dysuria Musculoskeletal: Denies: Joint Pain, Joint Tenderness Skin: Denies: Rash, Wounds Neurological: Denies: Numbness, Tingling, Focal weakness Psychiatric: Denies: Anxiety, Depression, Homicidal Ideations, Suicidal Ideations Hematologic/ Lymphatic: Denies: Easy Bruising, Easy Bleeding VTE Information - Inpt Only VTE Present on Admission: No VTE Mechan Device Prophylaxis: SCD's VTE Pharm Prophylaxis ordered?: No Patient Problems: Active and Suspected Problems (Last Reviewed 05/16/18 @ 05:57 by Ron Franco MD) Acute blood loss anemia (Acute) - Physical Exam General: Alert, Oriented x3, Cooperative HEENT: Atraumatic, PERRLA, EOMI, Normocephalic Neck: Supple, Trachea Midline Lungs: Clear to auscultation, Normal air movement, Short of Breath, Tachypneic Cardiovascular: No murmurs, Tachycardic Abdomen: Bowel Sounds Present, Soft, Tender Extremities: No edema, Capillary Refill Less than 3 Seconds Skin: No rashes, No breakdown Musculoskeletal: No Tenderness to Palpation of Joints or Extremities Neurological: Neuro grossly intact Psych/Mental Status: Anxious Vital Signs Temp Pulse Resp BP Pulse Ox 98.0 F 112 H 21 H 137/94 H 99 05/16/18 00:18 05/16/18 00:18 05/16/18 00:18 05/16/18 00:18 05/16/18 00:18 Oxygen Flow Rate (L/min) 2 Oxygen Delivery Method Nasal Cannula Weight: 80.739 kg Body Mass Index (BMI) 30.5 Finger Stick Blood Glucose 85 Laboratory Tests Past 24 Hrs 05/15/18 05/15/18 05/15/18 22:00 22:00 22:00 WBC Cancelled Corrected WBC Cancelled RBC Cancelled Hgb Cancelled Hct Cancelled MCV Cancelled MCH Cancelled MCHC Cancelled RDW Cancelled RDW Differential Cancelled Plt Count Cancelled MPV Cancelled Immature Gran % (Auto) Cancelled Neut % (Auto) Cancelled Lymph % (Auto) Cancelled Porter % (Auto) Cancelled Eos % (Auto) Cancelled Baso % (Auto) Cancelled Absolute Neuts (auto) Cancelled Absolute Lymphs (auto) Cancelled Total Counted Cancelled Neutrophils % (Manual) Cancelled Band Neutrophils % Cancelled Lymphocytes % (Manual) Cancelled Monocytes % (Manual) Cancelled Eosinophils % (Manual) Cancelled Basophils % (Manual) Cancelled Metamyelocytes % Cancelled Myelocytes % Cancelled Promyelocytes % Cancelled Blast Cells % Cancelled Plasma Cell % (Manual) Cancelled Other Cells % Cancelled Nucleated RBCs/100 WBC Cancelled Differential Comment Cancelled Diff Path Review Cancelled Hypersegmented Neuts Cancelled Atypical Lymphocytes Cancelled Reactive Lymphocytes Cancelled Smudge Cells Cancelled Toxic Granulation Cancelled Dohle Bodies Cancelled Emile Rods Cancelled Platelet Estimate Cancelled Plt Morphology Comment Cancelled RBC Morphology Cancelled Polychromasia Cancelled Hypochromasia Cancelled Poikilocytosis Cancelled Basophilic Stippling Cancelled Anisocytosis Cancelled Microcytosis Cancelled Macrocytosis Cancelled Spherocytes Cancelled Sickle Cells Cancelled Target Cells Cancelled Tear Drop Cells Cancelled Ovalocytes Cancelled Stomatocytes Cancelled Holt-Hettick Bodies Cancelled Gonzalo Cells Cancelled Bite Cells Cancelled Acanthocytes (Spur) Cancelled Rouleaux Cancelled Schistocytes Cancelled PT Cancelled INR Cancelled APTT Cancelled Sodium Cancelled Potassium Cancelled Chloride Cancelled Carbon Dioxide Cancelled Anion Gap Cancelled BUN Cancelled Creatinine Cancelled Estim Creat Clear Calc Cancelled Est GFR (MDRD) Af Amer Cancelled Est GFR (MDRD) Non-Af Cancelled BUN/Creatinine Ratio Cancelled Glucose Cancelled Calcium Cancelled Total Bilirubin Cancelled AST Cancelled ALT Cancelled Alkaline Phosphatase Cancelled Troponin I Cancelled Total Protein Cancelled Albumin Cancelled Globulin Cancelled Albumin/Globulin Ratio Cancelled 05/15/18 05/15/18 05/15/18 22:48 22:48 22:48 WBC 27.9 H Corrected WBC RBC 2.95 L Hgb 9.1 L Hct 28.2 L MCV 95.6 MCH 30.8 MCHC 32.3 RDW 12.9 RDW Differential 43.2 Plt Count 251 MPV 11.9 Immature Gran % (Auto) 0.600 Neut % (Auto) 87.6 H Lymph % (Auto) 5.9 L Porter % (Auto) 5.8 Eos % (Auto) 0.0 Baso % (Auto) 0.1 Absolute Neuts (auto) 24.5 H Absolute Lymphs (auto) 1.64 Total Counted Not Reportable Neutrophils % (Manual) Band Neutrophils % Lymphocytes % (Manual) Monocytes % (Manual) Eosinophils % (Manual) Basophils % (Manual) Metamyelocytes % Myelocytes % Promyelocytes % Blast Cells % Plasma Cell % (Manual) Other Cells % Nucleated RBCs/100 WBC Differential Comment Diff Path Review May foll Hypersegmented Neuts Atypical Lymphocytes Reactive Lymphocytes Smudge Cells Toxic Granulation Dohle Bodies Emile Rods Platelet Estimate Plt Morphology Comment RBC Morphology Polychromasia Hypochromasia Poikilocytosis Basophilic Stippling Anisocytosis Microcytosis Macrocytosis Spherocytes Sickle Cells Target Cells Tear Drop Cells Ovalocytes Stomatocytes Holt-Hettick Bodies [place] Cells Bite Cells Acanthocytes (Spur) Rouleaux Schistocytes PT 35.0 H INR 3.5 H* APTT 43.1 H Sodium 141 Potassium 3.6 Chloride 111 H Carbon Dioxide 15.0 L Anion Gap 15 BUN 72 H Creatinine 1.52 H Estim Creat Clear Calc 30.59 Est GFR (MDRD) Af Amer 44 L Est GFR (MDRD) Non-Af 36 L BUN/Creatinine Ratio 47.4 H Glucose 177 H Calcium 7.2 L Total Bilirubin 0.30 AST 16 ALT 24 Alkaline Phosphatase 59 Troponin I 0.173 H Total Protein 5.5 L Albumin 2.6 L Globulin 2.9 Albumin/Globulin Ratio 0.9 Assessment/Plan All Active Problems (Last Reviewed 05/16/18 @ 05:57 by Ron Franco MD) Acute blood loss anemia (Acute) The patient is a 68 year old F with a significant history of CAD status post CABG and coronary stent; hypertension; hyperlipidemia; paroxysmal A. fib; who presented to the emergency department because of 2-day history of hematemesis and melena; and was recently treated with Z-Gurjit and steroids; who also has elevated creatinine; pronounced leukocytosis; tachycardia; and shortness of breath. Acute blood loss anemia Patient takes Mobic for arthritis. Also he is on home aspirin and warfarin. Review of records show the patient has elevated BUN. Her BUN is more than tripled her baseline BUN. Likely this is due to upper GI bleed. Received Protonix bolus at emergency department. We will put patient on Protonix drip. Her INR is 3.5. Will reverse with vitamin K. Because of her symptoms of tachycardia shortness of breath; syncope and coronary history we will go ahead and transfuse 1 units of blood. Repeat H&H 1 hour after transfusion. Emergency department doctor reports discussing the case Dr. Grubbs, General Surgeon. Per emergency department doctor, Dr. Grubbs will follow. Received fentanyl in the emergency department will help with abdominal pain. At the [facility] patient was requesting pain medicine for abdominal pain stating that the pain medicine at the ED helped. PRN morphine ordered. IV Zofran for morphine. Dr. Grubbs will follow. SIRS and leukocytosis No clear source of infection at this time Patient noted to have tachycardia; tachypnea. Was recently treated with Z-Gurjit and prednisone. Her chest x-ray was unremarkable for acute cardia pulmonary process. We will get a compressive respiratory pathogen panel We will get urinalysis and urine culture We will get blood cultures. Alex scheduled Albuterol scheduled. Trend CBC TA On presentation her creatinine was 1.5. Review of records her baseline creatinine is about 1. Also her BUN is 72 and more than tripled her baseline. Likely prerenal from hypovolemia secondary to acute blood loss anemia. BUN over creatinine is 47.4. Ordered 1 unit of PRBC blood. Also will start patient on gentle IV hydration. Elevated troponin EKG shows sinus tachycardia with ventricular rate of 130. Likely demand ischemia from anemia; poor clearance from TA. Admission diagnoses also include non-ST elevation OH Trend troponin. Consider discussing with cardiology. Paroxysmal A. fib Patient is on chronic anti-coagulation with Coumadin. Patient reported that her Coumadin was started because the blood in her heart was thick. Because of probable GI bleed and with supratherapeutic INR we will hold her Coumadin and give her vitamin K p.o. now. Repeat INR in a.m. Patient placed on telemetry on PCU status. Hypertension Her blood pressure at this time is labile. In the setting of GI bleed will be cautious about resumption of home blood pressure medications. Trend blood pressures DVT prophylaxis No chemoprophylaxis at this time since patient's probably has GI bleed in a home Coumadin has been held. And noted patient with supratherapeutic INR. SCD ordered. Code Visit Inpatient E&M: 75919 Init Hosp L3
--- NOTE | 2018-05-16 00:55 | ED.VISSUMM ---
- ER Visit Summary Date of Service: 05/16/18 Chief Complaint: Nausea and vomiting History of Present Illness: The patient is a 68 F with nausea and vomiting for several days. This is getting worse. She has started to notice some blood in her stool, bright red and black stools. She feels dizzy at times. She denies any history of this in the past. She does take aspirin and Coumadin for history of atrial fibrillation. She was recently treated for bronchitis with a Z-Gurjit and prednisone. She finished these treatments. Denies any history of liver disease or GI bleeding. Physical Examination: Afebrile. Blood pressure stable but heart rate 128. Patient appears uncomfortable. Heart tachycardic but regular. Lungs clear. Abdomen soft and nontender. Skin is normal in color. Alert and oriented. Test Results: EKG shows sinus rhythm at a rate of 130. Chest x-ray normal. Troponin 0 0.173. White count 27.9. This is new. Hemoglobin 9.1, decreased from baseline. Platelets normal. Glucose 177, BUN 72, creatinine 1.52. INR 3.5. Type and screen pending. Emergency Department Course and Treatment: Patient seen and placed on a monitor. She was treated with Zofran and Protonix. She had continued nausea and started to complain of some abdominal pain from vomiting. She was treated with Phenergan and fentanyl. On further reevaluation, heart rate is 100. Blood pressure is stable. The patient appears better and looks more comfortable. Patient is anemic. Her INR is 3.5. There was no indication to administer medications or blood products at this point. White count is 27.9. Patient has no sepsis symptoms. I am not sure if this is from vomiting and or being on prednisone. I reevaluated the patient and spoke with her again. No infectious symptoms whatsoever. Patient is much improved. Stable for admission. I spoke with Dr. Grubbs who will evaluate her. I spoke with the hospitalist who will admit for further care. Treatment Plan: As above Disposition: Admission Impression: 1. Upper GI bleed 2. Anemia 3. Coumadin coagulopathy 4. Indeterminate troponin This note was generated with [employer]ation software. It may contain incorrect words, spelling, and punctuation that were not noted in review of the chart prior to signing ED Disposition - Plan for ED Patient: Referrals: Ruslan Kang MD [Primary Care Provider] -
[2018-05-16] MEDS: Phytonadione (Vit K) 10 MG/ML Ampul 5 MG PO (03:48)
[2018-05-16 04:44] LABS: Anion Gap 12 (5-15); BUN 62 mg/dL (7-18); BUN/Creat Ratio 42.8 RATIO (10-20); Calcium,Total 7.8 mg/dL (8.5-10.1); Chloride 111 mmol/L (98-107); Creatinine, Serum 1.45 mg/dL (0.55-1.02); EST Glomerular Filtration Rate 38 mL/min (>60); Est Glom Filt Rate - Afr Amer 46 mL/min (>60); Estimated Creatinine Clearance 32.07 ml/min; Glucose 181 mg/dL (74-106); Potassium 4.4 mmol/L (3.5-5.1); Sodium Level 143 mmol/L (136-145)
[2018-05-16] MEDS: Morphine 2 MG/ML Syringe 1 MG IV ×3 (05:40→13:49)
[2018-05-16] MEDS: 0.9% NaCl Peripheral Flush Adult/Peds IV ×7 (05:41→23:35)
[2018-05-16] MEDS: 0.9% Normal Saline 1,000 ML 100 ML IV (06:30)
[2018-05-16 07:09] LABS: Absolute Lymphocyte Count 1.79 X10^3/ul (0.83-4.51); Basophil# 0.02 X10^3/uL; Basophil% 0.1 % (0-1); Eosinophil# 0.01 X10^3/uL; Hematocrit 25.8 % (37-47); Hemoglobin 8.3 g/dl (12.0-15.0); Lymphocyte # 1.79 X10^3/ul (4.0); Mean Corp Hgb Conc 32.2 g/gl (32-36); Mean Corpuscular Hgb 30.2 pg (27.0-32.0); Mean Corpuscular Volume 93.8 fL (81-99); Mean Platelet Vol. 11.4 fl (6.2-12.0); Monocyte# 1.45 X10^3/uL; Monocyte% 6.5 % (0-10); Neutrophil # 18.98 X10^3/uL (2.7-7.7); Neutrophil % 84.9 % (47-70); Platelet Count 230 K/mm3 (150-450); RBC Distribution Width CV 13.7 % (11.6-14.6); RBC Distribution Width SD 46.4 fl (35.1-43.9); Red Blood Count 2.75 M/mm3 (4.2-5.4); White Blood Count 22.4 K/mm3 (4.4-11.0)
[2018-05-16 07:10] LABS: POSITIVE COUNT NO; POSITIVE DIFFERENTIAL NO; POSITIVE MORPHOLOGY NO
--- NOTE | 2018-05-16 07:13 | PCM.PN.BLA ---
Progress Note Patient is a 68-year-old lady admitted with nausea vomiting and abdominal discomfort. She also did complain of intermittent episodes of both black tarry stools as well as bright red stools. Patient is on systemic anticoagulation with Coumadin INR on admission was 3.5 patient was administered with vitamin K the general surgeon care companion Dr. Grubbs was notified patient admitted to the intensive care unit. 1. GI Bleed do suspect a combination of both upper and lower GI bleed in the context of coagulopathy due to Coumadin use. Patient was placed on Protonix drip did receive vitamin K consult surgery with plans for patient undergo endoscopic evaluation when medically stable 2. Coagulopathy with resultant GI bleed in the context of Coumadin use. Coumadin held on admission patient did receive vitamin K with subsequent monitoring of INR 3. CAD with previous stent placement to LAD in last CABG 4. Paroxysmal atrial fibrillation heart rate controlled patient anticoagulation held in view of her presenting complaint 5. Peripheral vascular disease 6. Carotid artery disease status post left carotid atherectomy in 7. Hypertension-blood pressure controlled, home medications continued with dose adjustment as needed 8. Dyslipidemia-patient is on statin therapy, continued at home dose 9. Previous CVA with no residual effect 10. Sick sinus syndrome status post pacemaker placement 11. Depression with anxiety 12. DVT prophylaxis bilateral SCDs Active Medications Acetaminophen (Tylenol) 650 mg PO Q6H PRN PRN PRN Reason: PAIN Pantoprazole Sodium 80 mg/ (Sodium Chloride) 100 mls @ 10 mls/hr CONT INF Q10H [facility] Last Admin: 05/16/18 13:17 Dose: 10 mls/hr Sodium Chloride () 250 mls @ 15 mls/hr IV .[id number] PRN PRN Reason: SALINE FLUSH Sodium Chloride () 250 mls @ 15 mls/hr IV .[id number] PRN PRN Reason: SALINE FLUSH Sodium Chloride () 1,000 mls @ 100 mls/hr IV .Q10H ROBERT Stop: 05/16/18 15:39 Last Admin: 05/16/18 06:30 Dose: 100 mls/hr Morphine Sulfate () 1 mg IV Q3H PRN PRN PRN Reason: SEVERE PAIN (6-10/10) Last Admin: 05/16/18 13:49 Dose: 1 mg Ondansetron HCl (Zofran) 4 mg IV Q6H PRN PRN PRN Reason: NAUSEA/VOMITING Last Admin: 05/16/18 09:19 Dose: 4 mg Sodium Chloride () 5 - 15 ml IV UD PRN PRN Reason: SALINE FLUSH Last Admin: 05/16/18 13:49 Dose: 10 ml
[2018-05-16 07:22] LABS: ALB/GLOB Ratio 0.9 RATIO (0.9-2.4); AST(SGOT) 20 U/L (15-37); Alanine Aminotransfer ALT/SGPT 24 U/L (13-56); Albumin, Serum 2.7 g/dL (3.2-5.0); Alkaline Phosphatase 55 U/L (45-117); Anion Gap 11 (5-15); BUN 57 mg/dL (7-18); BUN/Creat Ratio 43.5 RATIO (10-20); Calcium,Total 7.6 mg/dL (8.5-10.1); Chloride 113 mmol/L (98-107); Creatinine, Serum 1.31 mg/dL (0.55-1.02); EST Glomerular Filtration Rate 43 mL/min (>60); Est Glom Filt Rate - Afr Amer 52 mL/min (>60); Estimated Creatinine Clearance 35.49 ml/min; Globulin 2.9 g/dL (2.2-4.2); Glucose 164 mg/dL (74-106); Potassium 4.1 mmol/L (3.5-5.1); Protein, Total 5.6 g/dL (6.4-8.2); Sodium Level 144 mmol/L (136-145)
[2018-05-16 08:44] LABS: International Normalized Ratio 2.6; Prothrombin Time (Protime)PT. 27.9 SECONDS (11.7-14.9)
--- NOTE | 2018-05-16 08:55 | CASEMGMT ---
Addendum entered by Kody Dawn 05/16/18 11:18: SRINIVASA Short updated on pt considering [facility] on dc. Rafaela VASQUEZ Original Note: RN CM Assessment Presentation: UGIB, anemia. H/H 8.3 25.8 today[address] Grubbs consult Intro role of CM and purpose of RN CM assessment. Pt tired, but able to participate in assessment. Daughter Tanya @ bedside. Lengthy discussion with pt re: SNF vs home with home care on dc. Pt has concerns with being able to care for self as she has been feeling weaker. Discussed options if SNF is recommended and pt states she has been @ [facility] previously. Pt will need [facility] 3 day qualifying stay for SNF to be covered. Was admitted 05/16/18 @ 0139. Consult by surgery pending, pt was told she may need surgical intervention. PCP: Dr. Kang Specialists: Dr. Grubbs Preferred Pharmacy: [facility] Insurance: [facility] Prescription Benefit: yes LNOK: Sister Lazara Fagan, (DPOA). No papers on chart Living Arrangements: Lives in basement apartment of her sister's home. 7 steps to basement. Pt states is able to navigate stairs. States she has been feeling weaker, but normally is independent in all ADL's, and is able to do own cooking and cleaning. Hx of back pain, so pt states, I have to be careful. Transportation: drives DME: cane, walker HHC: none DC PLAN: undetermined. Pt states she feels she may need short term skilled stay @ [facility]. PT/OT evaluations are ordered, will review and continue to follow for dc planning. Rafaela VASQUEZ
[2018-05-16] MEDS: Ondansetron 4 MG/2 ML Vial IV (09:19)
--- NOTE | 2018-05-16 10:57 | CON.PCM_ITS ---
Reason for Consult Date of Consultation: 05/16/18 Reason for Consultation: hemetemesis, chest pain, positive troponins History of Present Illness: The patient is a 68 year old F hematemesis for the past 2 days. She states for the past few days she is noted nausea, vomiting, diarrhea, lightheadedness and then blacking out a few times. She states she is very weak and did not have the energy to take care of herself at home. For the past 2 days she noted blood in her vomitus and dark stools. With these complaints she contacted EMS who brought her [facility]. Her hemoglobin was found to have dropped from 120.7 from August 2017 to 9.1 yesterday. This morning her hemoglobin had dropped to 8.3. the patient also notes as stated above dizziness and chest pain. She was found to have elevated troponin levels. The patient is admitted to the cardiac care jenkins discomfort in her lower abdomen. She denies history of peptic ulcer disease. she is uncertain about previous endoscopy.the patient is on Coumadin. Her INR on admission was 3.5. The patient was given vitamin K. She also takes aspirin and MOBIC for arthritis pain Past Medical History Past Medical History (Chronic Problems): Chronic Problems (Last Reviewed 05/16/18 @ 07:02 by Ron Franco MD) Presence of stent in coronary artery (Chronic) PTCA/stent to ostial and prox LAD 06/2006 Essential hypertension (Chronic) prison current use of anticoagulant (Chronic) Hx of CABG (Chronic ~06/29/06) CABG x3- 06/29/2006 with SANDHU to LAD, SVG to diagonal, & SVG to RCA Carotid artery disease (Chronic) S/P left carotid endarterectomy June 2006; Atherosclerosis of [place] coronary artery of [place] heart without angina pectoris (Chronic) S/P CABG 06/29/2006 with SANDHU to LAD, SVG to diagonal, & SVG to RCA; PCI to prox LAD 06/2006 post CABG; Paroxysmal atrial fibrillation (Chronic) PVD (peripheral vascular disease) (Chronic) ? bilateral LE stents HLD (hyperlipidemia) (Chronic) Sick sinus syndrome with tachycardia (Chronic) S/P Pacemaker implantation 04/09/2013; Cerebrovascular disease (Chronic) hx stroke mild residual left hemiparesis s/p left CEA 2006 mild-mod external carotid disease 05/18 Pacemaker (Chronic) Bradycardia (Chronic) Chronic back pain (Chronic) Tobacco use (Chronic) Depression with anxiety (Chronic) Medical History: Medical History (Last Reviewed 05/16/18 @ 07:02 by Ron Franco MD) Presence of stent in coronary artery (Chronic) Z95.5 PTCA/stent to ostial and prox LAD 06/2006 Essential hypertension (Chronic) 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 (Chronic) Z79.01 Carotid artery disease (Chronic) I77.9 S/P left carotid endarterectomy June 2006; Atherosclerosis of [place] coronary artery of [place] heart without angina pectoris (Chronic) I25.10 S/P CABG 06/29/2006 with SANDHU to LAD, SVG to diagonal, & SVG to RCA; PCI to prox LAD 06/2006 post CABG; Paroxysmal atrial fibrillation (Chronic) I48.0 Allergies atorvastatin calcium [From Lipitor] Allergy (Verified 05/15/18 21:13) Hives gluten Allergy (Verified 05/15/18 21:13) Food Allergy metoprolol succinate [From Toprol XL] Allergy (Verified 05/15/18 21:13) Rash niacin [From Niaspan Extended-Release] Allergy (Verified 05/05/18 16:25) Rash Penicillins Allergy (Verified 05/15/18 21:13) Rash Sulfa (Sulfonamide Antibiotics) Allergy (Verified 05/15/18 21:13) Itching radionuclide Allergy (Uncoded 05/15/18 21:13) It almost killed me stress test radionuclide Home Medications: Ambulatory Orders Medication Instructions Recorded Aspirin [Aspirin, Baby] 81 mg PO DAILY@0800 08/23/13 Meloxicam [Mobic] 15 mg PO DAILY 03/01/17 nitroglycerin 0.4 mg sublingual 0.4 mg SUBLINGUAL Q5M PRN 03/29/17 tablet Enalapril Maleate 2.5 mg PO BID 08/05/17 warfarin 2.5 mg tablet 2.5 mg PO .COMPLEX #0 tab 12/09/17 isosorbide mononitrate 10 mg tablet 10 mg PO BID #60 tab 01/30/18 metoprolol tartrate 25 mg tablet 12.5 mg PO BID #30 tab 01/30/18 pravastatin 80 mg tablet 80 mg PO QHS #30 tab 01/30/18 potassium chloride ER 10 mEq 20 meq PO DAILY #60 tab 05/04/18 tablet,extended release Azithromycin [Zithromax Z-Gurjit] 250 mg PO UD #1 box 05/05/18 Prednisone [Deltasone] 20 mg PO DAILY #7 tab 05/05/18 Surgical History: Surgical History (Last Reviewed 05/16/18 @ 07:02 by Ron Franco MD) Hx of CABG (Chronic) Onset Date: ~06/29/06 Z95.1 CABG x3- 06/29/2006 with SANDHU to LAD, SVG to diagonal, & SVG to RCA History of cholecystectomy Z90.49 History of left-sided carotid endarterectomy Onset Date: ~06/2006 Z98.890 History of total hysterectomy Z90.710 Surgical History: coronary bypass surgery, - - Left carotid endarterectomy, PCI, Hysterectomy, Cholecystectomy, CABG, BL LE stents. 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 History: No pertinent CERTIFIED SURGICAL TECH/FIRST ASSISTANT history Lives: Alone Smoking Status: Former smoker - *Family History Maternal Family History: Family History (Last Reviewed 05/16/18 @ 07:02 by Ron Franco MD) Mother CVA (cerebral vascular accident) CAD (coronary artery disease) History Items: No pertinent history Paternal Family History: Family History (Last Reviewed 05/16/18 @ 07:02 by Ron Franco MD) Mother CVA (cerebral vascular accident) CAD (coronary artery disease) History Items: No pertinent history Review of Systems Constitutional: Denies: Chills, Fever, Weight Change HEENT: Denies: Head Aches, Sinus Congestion, Sinus Drainage Cardiovascular: Reports: Chest Pain, Palpitations Respiratory: Reports: Shortness of Breath. Denies: Cough, Shortness of breath at rest, Sputum production Gastrointestinal: Reports: Abdominal Pain, Hematemesis, Melena. Denies: Nausea, Vomiting Genitourinary: Denies: Dysuria Musculoskeletal: Denies: Joint Pain, Joint Tenderness Skin: Denies: Rash, Wounds Neurological: Denies: Numbness, Tingling, Focal weakness Psychiatric: Denies: Anxiety, Depression, Homicidal Ideations, Suicidal Ideations Hematologic/ Lymphatic: Denies: Easy Bruising, Easy Bleeding Patient Problems: Active and Suspected Problems (Last Reviewed 05/16/18 @ 07:02 by Ron Franco MD) Acute blood loss anemia (Acute) - Physical Exam General: Alert, Oriented x3 Lungs: Clear to auscultation, Normal air movement Cardiovascular: Irregular Rate Abdomen: Bowel Sounds Present, Soft, Non Tender Vital Signs Temp Pulse Resp BP Pulse Ox 99.2 F H 94 20 H 101/41 L 100 05/16/18 09:32 05/16/18 09:32 05/16/18 09:32 05/16/18 09:32 05/16/18 09:32 Oxygen Flow Rate (L/min) 2 Oxygen Delivery Method Nasal Cannula Weight: 77.5 kg Body Mass Index (BMI) 29.3 Finger Stick Blood Glucose 85 Intake and Output for Last 24 Hours 05/14/18 05/15/18 05/16/18 23:59 23:59 23:59 Intake Total 27.5 / 27.5 Output Total 650 / 650 Balance -622.5 / -622.5 Microbiology Past 72 Hours 05/16/18 07:06 Respiratory Panel (PCR) - Final Mucosa - Nasopharyngeal Laboratory Tests Past 24 Hrs 05/15/18 05/15/18 05/15/18 22:00 22:00 22:00 WBC Cancelled Corrected WBC Cancelled RBC Cancelled Hgb Cancelled Hct Cancelled MCV Cancelled MCH Cancelled MCHC Cancelled RDW Cancelled RDW Differential Cancelled Plt Count Cancelled MPV Cancelled Immature Gran % (Auto) Cancelled Neut % (Auto) Cancelled Lymph % (Auto) Cancelled [place] % (Auto) Cancelled Eos % (Auto) Cancelled Baso % (Auto) Cancelled Absolute Neuts (auto) Cancelled Absolute Lymphs (auto) Cancelled Total Counted Cancelled Neutrophils % (Manual) Cancelled Band Neutrophils % Cancelled Lymphocytes % (Manual) Cancelled Monocytes % (Manual) Cancelled Eosinophils % (Manual) Cancelled Basophils % (Manual) Cancelled Metamyelocytes % Cancelled Myelocytes % Cancelled Promyelocytes % Cancelled Blast Cells % Cancelled Plasma Cell % (Manual) Cancelled Other Cells % Cancelled Nucleated RBCs/100 WBC Cancelled Differential Comment Cancelled Diff Path Review Cancelled Hypersegmented Neuts Cancelled Atypical Lymphocytes Cancelled Reactive Lymphocytes Cancelled Smudge Cells Cancelled Toxic Granulation Cancelled Dohle Bodies Cancelled Emiel Rods Cancelled Platelet Estimate Cancelled Plt Morphology Comment Cancelled RBC Morphology Cancelled Polychromasia Cancelled Hypochromasia Cancelled Poikilocytosis Cancelled Basophilic Stippling Cancelled Anisocytosis Cancelled Microcytosis Cancelled Macrocytosis Cancelled Spherocytes Cancelled Sickle Cells Cancelled Target Cells Cancelled Tear Drop Cells Cancelled Ovalocytes Cancelled Stomatocytes Cancelled [place] Bodies Cancelled [place] Cells Cancelled Bite Cells Cancelled Acanthocytes (Spur) Cancelled Rouleaux Cancelled Schistocytes Cancelled PT Cancelled INR Cancelled APTT Cancelled Sodium Cancelled Potassium Cancelled Chloride Cancelled Carbon Dioxide Cancelled Anion Gap Cancelled BUN Cancelled Creatinine Cancelled Estim Creat Clear Calc Cancelled Est GFR (MDRD) Af Amer Cancelled Est GFR (MDRD) Non-Af Cancelled BUN/Creatinine Ratio Cancelled Glucose Cancelled Calcium Cancelled Total Bilirubin Cancelled AST Cancelled ALT Cancelled Alkaline Phosphatase Cancelled Troponin I Cancelled Total Protein Cancelled Albumin Cancelled Globulin Cancelled Albumin/Globulin Ratio Cancelled Blood Type Antibody Screen Crossmatch 05/15/18 05/15/18 05/15/18 22:48 22:48 22:48 WBC 27.9 H Corrected WBC RBC 2.95 L Hgb 9.1 L Hct 28.2 L MCV 95.6 MCH 30.8 MCHC 32.3 RDW 12.9 RDW Differential 43.2 Plt Count 251 MPV 11.9 Immature Gran % (Auto) 0.600 Neut % (Auto) 87.6 H Lymph % (Auto) 5.9 L [place] % (Auto) 5.8 Eos % (Auto) 0.0 Baso % (Auto) 0.1 Absolute Neuts (auto) 24.5 H Absolute Lymphs (auto) 1.64 Total Counted Not Reportable Neutrophils % (Manual) Band Neutrophils % Lymphocytes % (Manual) Monocytes % (Manual) Eosinophils % (Manual) Basophils % (Manual) Metamyelocytes % Myelocytes % Promyelocytes % Blast Cells % Plasma Cell % (Manual) Other Cells % Nucleated RBCs/100 WBC Differential Comment Diff Path Review May foll Hypersegmented Neuts Atypical Lymphocytes Reactive Lymphocytes Smudge Cells Toxic Granulation Dohle Bodies Emile Rods Platelet Estimate Plt Morphology Comment RBC Morphology Polychromasia Hypochromasia Poikilocytosis Basophilic Stippling Anisocytosis Microcytosis Macrocytosis Spherocytes Sickle Cells Target Cells Tear Drop Cells Ovalocytes Stomatocytes [place] Bodies [place] Cells Bite Cells Acanthocytes (Spur) Rouleaux Schistocytes PT 35.0 H INR 3.5 H* APTT 43.1 H Sodium 141 Potassium 3.6 Chloride 111 H Carbon Dioxide 15.0 L Anion Gap 15 BUN 72 H Creatinine 1.52 H Estim Creat Clear Calc 30.59 Est GFR (MDRD) Af Amer 44 L Est GFR (MDRD) Non-Af 36 L BUN/Creatinine Ratio 47.4 H Glucose 177 H Calcium 7.2 L Total Bilirubin 0.30 AST 16 ALT 24 Alkaline Phosphatase 59 Troponin I 0.173 H Total Protein 5.5 L Albumin 2.6 L Globulin 2.9 Albumin/Globulin Ratio 0.9 Blood Type Antibody Screen Crossmatch 05/16/18 05/16/18 05/16/18 03:40 04:15 06:35 WBC 22.4 H Corrected WBC RBC 2.75 L Hgb 8.3 L Hct 25.8 L MCV 93.8 MCH 30.2 MCHC 32.2 RDW 13.7 RDW Differential 46.4 H Plt Count 230 MPV 11.4 Immature Gran % (Auto) 0.500 Neut % (Auto) 84.9 H Lymph % (Auto) 8.0 L [place] % (Auto) 6.5 Eos % (Auto) 0.0 Baso % (Auto) 0.1 Absolute Neuts (auto) 19.0 H Absolute Lymphs (auto) 1.79 Total Counted Not Reportable Neutrophils % (Manual) Band Neutrophils % Lymphocytes % (Manual) Monocytes % (Manual) Eosinophils % (Manual) Basophils % (Manual) Metamyelocytes % Myelocytes % Promyelocytes % Blast Cells % Plasma Cell % (Manual) Other Cells % Nucleated RBCs/100 WBC Differential Comment Diff Path Review Hypersegmented Neuts Atypical Lymphocytes Reactive Lymphocytes Smudge Cells Toxic Granulation Dohle Bodies Emile Rods Platelet Estimate Plt Morphology Comment RBC Morphology Polychromasia Hypochromasia Poikilocytosis Basophilic Stippling Anisocytosis Microcytosis Macrocytosis Spherocytes Sickle Cells Target Cells Tear Drop Cells Ovalocytes Stomatocytes [place] Bodies [place] Cells Bite Cells Acanthocytes (Spur) Rouleaux Schistocytes PT INR APTT Sodium 143 Potassium 4.4 Chloride 111 H Carbon Dioxide 20.0 L Anion Gap 12 BUN 62 H Creatinine 1.45 H Estim Creat Clear Calc 32.07 Est GFR (MDRD) Af Amer 46 L Est GFR (MDRD) Non-Af 38 L BUN/Creatinine Ratio 42.8 H Glucose 181 H Calcium 7.8 L Total Bilirubin AST ALT Alkaline Phosphatase Troponin I 0.201 H Total Protein Albumin Globulin Albumin/Globulin Ratio Blood Type A POSITIVE Antibody Screen NEGATIVE Crossmatch See Detail 05/16/18 05/16/18 06:35 08:25 WBC Corrected WBC RBC Hgb Hct MCV MCH MCHC RDW RDW Differential Plt Count MPV Immature Gran % (Auto) Neut % (Auto) Lymph % (Auto) [place] % (Auto) Eos % (Auto) Baso % (Auto) Absolute Neuts (auto) Absolute Lymphs (auto) Total Counted Neutrophils % (Manual) Band Neutrophils % Lymphocytes % (Manual) Monocytes % (Manual) Eosinophils % (Manual) Basophils % (Manual) Metamyelocytes % Myelocytes % Promyelocytes % Blast Cells % Plasma Cell % (Manual) Other Cells % Nucleated RBCs/100 WBC Differential Comment Diff Path Review Hypersegmented Neuts Atypical Lymphocytes Reactive Lymphocytes Smudge Cells Toxic Granulation Dohle Bodies Emile Rods Platelet Estimate Plt Morphology Comment RBC Morphology Polychromasia Hypochromasia Poikilocytosis Basophilic Stippling Anisocytosis Microcytosis Macrocytosis Spherocytes Sickle Cells Target Cells Tear Drop Cells Ovalocytes Stomatocytes [place] Bodies [place] Cells Bite Cells Acanthocytes (Spur) Rouleaux Schistocytes PT 27.9 H INR 2.6 APTT Sodium 144 Potassium 4.1 Chloride 113 H Carbon Dioxide 20.0 L Anion Gap 11 BUN 57 H Creatinine 1.31 H Estim Creat Clear Calc 35.49 Est GFR (MDRD) Af Amer 52 L Est GFR (MDRD) Non-Af 43 L BUN/Creatinine Ratio 43.5 H Glucose 164 H Calcium 7.6 L Total Bilirubin 0.50 AST 20 ALT 24 Alkaline Phosphatase 55 Troponin I 0.174 H Total Protein 5.6 L Albumin 2.7 L Globulin 2.9 Albumin/Globulin Ratio 0.9 Blood Type Antibody Screen Crossmatch Assessment/Plan All Active Problems (Last Reviewed 05/16/18 @ 07:02 by Ron Franco MD) Acute blood loss anemia (Acute) hematemesis, melena, likely peptic ulcer disease Patient was admitted to the cardiac care unit with a finding of elevated troponins. She was started on proton pump inhibitors. She is given vitamin K due to her elevated INR. If INR remains elevated I recommend FFP. Was felt to be stable from cardiac standpoint and resuscitated, we will plan for bowel prep and perform upper and lower endoscopy. If patient's hemoglobin continues to drop precipitously, we will plan for urgent upper endoscopy.
--- NOTE | 2018-05-16 13:20 | CHAPLAIN ---
Type of Pastoral Visit _x__ Initial Visit ___ Follow-up Visit ___ On-call Visit ___ General Patient Visit ___ Spiritual Assessment ___ Family Conference ___ Bereavement ___ Rapid Response ___ Code Blue ___ Other (describe below) Pastoral Care Referral From _x__ Patient _x__ Family ___ Nurse ___ Physician ___ Teacher Instrumental ___ Residential Manager ___ Other (describe below) Sacrament/Intervention _x__ Active listening ___ Anointing ___ Episcopal ___ Bereavement ___ Communion ___ Yuridia exploration ___ ___ Life review _x__ Prayer ___ Reconciliation ___ Sacrament of Sick ___ Supportive presence ___ Wedding ___ Other (describe below) Pastoral Comments
[2018-05-16 13:47] LABS: Pathologist Review Reviewed
[2018-05-16 13:47] LABS: Absolute Lymphocyte Count 2.25 X10^3/ul (0.83-4.51); Absolute Neutrophil Count 14.6 X10^3/uL (2.0-7.7); Basophil# 0.02 X10^3/uL; Basophil% 0.1 % (0-1); Eosinophil# 0.01 X10^3/uL; Eosinophils% 0.1 % (0-5); Hematocrit 28.5 % (37-47); Hemoglobin 9.3 g/dl (12.0-15.0); Lymphocyte # 2.25 X10^3/ul (4.0); Mean Corp Hgb Conc 32.6 g/gl (32-36); Mean Corpuscular Hgb 30.3 pg (27.0-32.0); Mean Corpuscular Volume 92.8 fL (81-99); Mean Platelet Vol. 11.2 fl (6.2-12.0); Monocyte# 1.74 X10^3/uL; Monocyte% 9.3 % (0-10); Neutrophil # 14.61 X10^3/uL (2.7-7.7); Neutrophil % 78.1 % (47-70); Platelet Count 195 K/mm3 (150-450); RBC Distribution Width CV 14.2 % (11.6-14.6); RBC Distribution Width SD 47.3 fl (35.1-43.9); Red Blood Count 3.07 M/mm3 (4.2-5.4); White Blood Count 18.7 K/mm3 (4.4-11.0)
[2018-05-16 13:48] LABS: Differential Indicated SCAN CRITERIA MET; POSITIVE COUNT NO; POSITIVE DIFFERENTIAL YES; POSITIVE MORPHOLOGY NO
--- NOTE | 2018-05-16 15:34 | NURSING ---
Dr. Bridges notified of last troponin of 0.218. no new orders at this time.
[2018-05-16 21:24] LABS: Bacteria 0 SEEN /hpf (None Seen); Mucous, Urine 0 SEEN /hpf (<or=2+); Red Blood Cells-Urine 0 SEEN /hpf (0-5)
[2018-05-16 21:29] LABS: Color, Urine Yellow (Yellow); Glucose, Dipstick 100 mg/dl (Normal); Ketone-Dipstick Negative (Negative); Leukocyte Esterase-Dipstick 25 /ul (Negative); Nitrite-Dipstick Negative (Negative); Occult Blood-Urine Negative /ul (Negative); Protein-Dipstick Negative (Negative); Urine Bilirubin Dipstick Negative (Negative); Urine Clarity Clear (Clear); Urine Urobilinogen Normal (Normal)
[2018-05-16 21:51] LABS: Squamous Epithelial Cells - UA 0-5 SEEN /hpf (5-10); White Blood Cells 0-5 SEEN /hpf (0-5)
[2018-05-17] VITALS (16 sets, daily range): BP systolic 90–126; BP diastolic 42–58; PULSE 60–68; RESP 16–18; TEMP 36.6–37.3; O2SAT 94–97
[2018-05-17] MEDS: 0.9% NaCl Peripheral Flush Adult/Peds IV ×4 (06:04→16:07)
[2018-05-17 07:46] LABS: Hematocrit 23.8 % (37-47); Hemoglobin 7.5 g/dl (12.0-15.0); Mean Corp Hgb Conc 31.5 g/gl (32-36); Mean Corpuscular Hgb 29.8 pg (27.0-32.0); Mean Corpuscular Volume 94.4 fL (81-99); Mean Platelet Vol. 11.1 fl (6.2-12.0); Platelet Count 144 K/mm3 (150-450); RBC Distribution Width CV 14.3 % (11.6-14.6); RBC Distribution Width SD 49.4 fl (35.1-43.9); Red Blood Count 2.52 M/mm3 (4.2-5.4); White Blood Count 11.7 K/mm3 (4.4-11.0)
[2018-05-17 07:49] LABS: Anion Gap 6 (5-15); BUN 23 mg/dL (7-18); BUN/Creat Ratio 23.3 RATIO (10-20); Calcium,Total 7.3 mg/dL (8.5-10.1); Chloride 111 mmol/L (98-107); Creatinine, Serum 0.99 mg/dL (0.55-1.02); EST Glomerular Filtration Rate 59 mL/min (>60); Est Glom Filt Rate - Afr Amer 72 mL/min (>60); Estimated Creatinine Clearance 46.96 ml/min; Glucose 110 mg/dL (74-106); Magnesium 1.9 mg/dL (1.6-2.6); Potassium 3.4 mmol/L (3.5-5.1); Sodium Level 139 mmol/L (136-145)
[2018-05-17 07:55] LABS: Scan Indicated on CBC? Y/N NO
[2018-05-17 07:56] LABS: International Normalized Ratio 1.5; Prothrombin Time (Protime)PT. 17.8 SECONDS (11.7-14.9)
[2018-05-17] MEDS: Morphine 2 MG/ML Syringe 1 MG IV (10:49)
--- NOTE | 2018-05-17 11:31 | PN_ITS ---
Patient Problems: Active and Suspected Problems (Last Reviewed 05/16/18 @ 07:02 by Ron Franco MD) Acute blood loss anemia (Acute) Subjective: Patient is a 68-year-old lady admitted with nausea vomiting and abdominal discomfort. She also did complain of intermittent episodes of both black tarry stools as well as bright red stools. Patient is on systemic anticoagulation with Coumadin INR on admission was 3.5 patient was administered with vitamin K the general surgeon python django developer Dr. Grubbs was notified patient admitted to a monitored bed. Patient seen this a.m. complains of feeling tired hemoglobin has dropped to 7.5. With patient being symptomatic and order was given for patient to be transfused 1 unit PRBC. INR as of the morning of 05/17/2018 1.5 Objective: GENERAL: cooperative HEENT: Atraumatic; EYES; Anicteric, Normal Conjunctiva NECK; supple, normal thyroid, no distended JVD. RESPIRATORY: Diminished to auscultation bilaterally, CARDIOVASCULAR: Regular S1 S2, GI: soft, non-tender, normoactive bowel sounds, : No Renal angle tenderness; EXTREMITIES: No edema, no clubbing, no cyanosis. MUSCULOSKELETAL: No Joint Tenderness; NEURO: Awake; no lateralizing signs. SKIN: No Rash PSYCH; Normal affect Vitals/I&O's: Vital Signs Temp Pulse Resp BP Pulse Ox 98.2 F 63 16 94/48 L 95 05/17/18 10:45 05/17/18 10:59 05/17/18 10:45 05/17/18 10:45 05/17/18 10:45 Oxygen Flow Rate (L/min) 2 Oxygen Delivery Method Room Air Weight: 77.5 kg Body Mass Index (BMI) 29.3 Finger Stick Blood Glucose 85 Intake and Output for Last 24 Hours 05/15/18 05/16/18 05/17/18 23:59 23:59 23:59 Intake Total 1671.5 / 1671.5 182 / 182 Output Total 1025 / 1025 Balance 646.5 / 646.5 182 / 182 Microbiology Past 72 Hours 05/16/18 07:06 Mucosa - Nasopharyngeal Respiratory Panel (PCR) - Final Laboratory Results 05/15/18 22:48: Diff Path Review Reviewed 05/16/18 03:40: Crossmatch See Detail 05/16/18 13:30: Troponin I 0.218 H 05/16/18 13:30: WBC 18.7 H, RBC 3.07 L, Hgb 9.3 L, Hct 28.5 L, MCV 92.8, MCH 30.3, MCHC 32.6, RDW 14.2, RDW Differential 47.3 H, Plt Count 195, MPV 11.2, Immature Gran % (Auto) 0.400, Neut % (Auto) 78.1 H, Lymph % (Auto) 12.0 L, [place] % (Auto) 9.3, Eos % (Auto) 0.1, Baso % (Auto) 0.1, Absolute Neuts (auto) 14.6 H, Absolute Lymphs (auto) 2.25, Total Counted Not Reportable, Diff Path Review July05/16/18 21:13: Urine Color Yellow, Urine Clarity Clear, Urine pH 6.0, Ur Specific [place] 1.020, Urine Protein Negative, Urine Glucose (UA) 100 H, Urine Ketones Negative, Urine Occult Blood Negative, Urine Nitrite Negative, Urine Bilirubin Negative, Urine Urobilinogen Normal, Ur Leukocyte Esterase 25 H, Urine RBC 0 SEEN, Urine WBC 0-5 SEEN, Ur Squamous Epith Cells 0-5 SEEN, Urine Bacteria 0 SEEN, Urine Mucus 0 SEEN 05/17/18 07:20: WBC 11.7 H, RBC 2.52 L, Hgb 7.5 L, Hct 23.8 L, MCV 94.4, MCH 29.8, MCHC 31.5 L, RDW 14.3, RDW Differential 49.4 H, Plt Count 144 L, MPV 11.1 05/17/18 07:20: PT 17.8 H, INR 1.5 05/17/18 07:20: Sodium 139, Potassium 3.4 L, Chloride 111 H, Carbon Dioxide 22.0, Anion Gap 6, BUN 23 H, Creatinine 0.99, Estim Creat Clear Calc 46.96, Est GFR (MDRD) Af Amer 72, Est GFR (MDRD) Non-Af 59 L, BUN/Creatinine Ratio 23.3 H, Glucose 110 H, Calcium 7.3 L, Magnesium 1.9 Current Medications Acetaminophen (Tylenol) 650 mg PO Q6H PRN PRN PRN Reason: PAIN Pantoprazole Sodium 80 mg/ (Sodium Chloride) 100 mls @ 10 mls/hr CONT INF Q10H ROBERT Last Admin: 05/17/18 06:04 Dose: 10 mls/hr Sodium Chloride () 250 mls @ 15 mls/hr IV .[id number] PRN PRN Reason: SALINE FLUSH Sodium Chloride () 250 mls @ 15 mls/hr IV .[id number] PRN PRN Reason: SALINE FLUSH Morphine Sulfate () 1 mg IV Q3H PRN PRN PRN Reason: SEVERE PAIN (6-10/10) Last Admin: 05/17/18 10:49 Dose: 0.5 mg Ondansetron HCl (Zofran) 4 mg IV Q6H PRN PRN PRN Reason: NAUSEA/VOMITING Last Admin: 05/16/18 09:19 Dose: 4 mg Sodium Chloride () 5 - 15 ml IV UD PRN PRN Reason: SALINE FLUSH Last Admin: 05/17/18 10:51 Dose: 10 ml Medical Necessity - Tobacco Use Smoking Status: Former smoker Assessment/Plan All Active Problems (Last Reviewed 05/16/18 @ 07:02 by Ron Franco MD) Acute blood loss anemia (Acute) Patient is a 68-year-old lady admitted with nausea vomiting and abdominal discomfort. She also did complain of intermittent episodes of both black tarry stools as well as bright red stools. Patient is on systemic anticoagulation with Coumadin INR on admission was 3.5 patient was administered with vitamin K the general surgeon python django developer Dr. Grubbs was notified patient admitted to the intensive care unit. 1. Anemia secondary to secondary to acute blood loss anemia from GI Bleed do suspect a combination of both upper and lower GI bleed in the context of coagulopathy due to Coumadin use. Patient was placed on Protonix drip did receive vitamin K consult surgery with plans for patient undergo endoscopic evaluation when medically stable . The patient being symptomatic as of 05/17/2018 and order was given for patient to be transfused with 1 unit PRBC 2. Coagulopathy with resultant GI bleed in the context of Coumadin use. Coumadin held on admission patient did receive vitamin K with subsequent monitoring of INR 3. Elevated troponin secondary to patient's severe anemia patient presentation not consistent with acute non-STEMI 4. CAD with previous stent placement to LAD in last CABG 5. Paroxysmal atrial fibrillation heart rate controlled patient anticoagulation held in view of her presenting complaint 6. Carotid artery disease status post left carotid atherectomy in 7. Hypertension-blood pressure controlled, home medications continued with dose adjustment as needed 8. Dyslipidemia-patient is on statin therapy, continued at home dose 9. Previous CVA with no residual effect 10. Sick sinus syndrome status post pacemaker placement 11. Depression with anxiety 12. Peripheral vascular disease 13. DVT prophylaxis bilateral SCDs Code Visit Inpatient E&M: 75774 Subs Hosp L3
[2018-05-17 14:18] LABS: Pathologist Review Reviewed
[2018-05-17] MEDS: Electrolyte Solution/Peg's 4000 ML PO (18:38)
--- NOTE | 2018-05-17 20:22 | PN.SURG_ITS ---
Patient Problems: Active and Suspected Problems (Last Reviewed 05/16/18 @ 07:02 by Ron Franco MD) Acute blood loss anemia (Acute) Subjective: no further chest pain. - Physical Exam General: Alert, Oriented x3, Cooperative Lungs: Clear to auscultation, Normal air movement Cardiovascular: Regular rate, No murmurs Abdomen: Bowel Sounds Present, Soft, Non Tender Vital Signs Temp Pulse Resp BP Pulse Ox 98.7 F 60 16 103/58 L 96 05/17/18 15:52 05/17/18 18:59 05/17/18 15:52 05/17/18 15:52 05/17/18 15:52 Oxygen Flow Rate (L/min) 2 Oxygen Delivery Method Room Air Weight: 77.5 kg Body Mass Index (BMI) 29.3 Finger Stick Blood Glucose 85 Intake and Output for Last 24 Hours 05/15/18 05/16/18 05/17/18 23:59 23:59 23:59 Intake Total 1671.5 / 1671.5 1017.6 / 1017.6 Output Total 1025 / 1025 Balance 646.5 / 646.5 1017.6 / 1017.6 Microbiology Past 72 Hours 05/16/18 07:06 Respiratory Panel (PCR) - Final Mucosa - Nasopharyngeal Laboratory Tests Past 24 Hrs 05/16/18 05/16/18 05/16/18 08:40 13:30 21:13 WBC RBC Hgb Hct MCV MCH MCHC RDW RDW Differential Plt Count MPV Diff Path Review Reviewed PT INR Sodium Potassium Chloride Carbon Dioxide Anion Gap BUN Creatinine Estim Creat Clear Calc Est GFR (MDRD) Af Amer Est GFR (MDRD) Non-Af BUN/Creatinine Ratio Glucose Calcium Magnesium Urine Color Yellow Urine Clarity Clear Urine pH 6.0 Ur Specific [place] 1.020 Urine Protein Negative Urine Glucose (UA) 100 H Urine Ketones Negative Urine Occult Blood Negative Urine Nitrite Negative Urine Bilirubin Negative Urine Urobilinogen Normal Ur Leukocyte Esterase 25 H Urine RBC 0 SEEN Urine WBC 0-5 SEEN Ur Squamous Epith Cells 0-5 SEEN Urine Bacteria 0 SEEN Urine Mucus 0 SEEN Crossmatch See Detail 05/17/18 05/17/18 05/17/18 07:20 07:20 07:20 WBC 11.7 H RBC 2.52 L Hgb 7.5 L Hct 23.8 L MCV 94.4 MCH 29.8 MCHC 31.5 L RDW 14.3 RDW Differential 49.4 H Plt Count 144 L MPV 11.1 Diff Path Review PT 17.8 H INR 1.5 Sodium 139 Potassium 3.4 L Chloride 111 H Carbon Dioxide 22.0 Anion Gap 6 BUN 23 H Creatinine 0.99 Estim Creat Clear Calc 46.96 Est GFR (MDRD) Af Amer 72 Est GFR (MDRD) Non-Af 59 L BUN/Creatinine Ratio 23.3 H Glucose 110 H Calcium 7.3 L Magnesium 1.9 Urine Color Urine Clarity Urine pH Ur Specific [place] Urine Protein Urine Glucose (UA) Urine Ketones Urine Occult Blood Urine Nitrite Urine Bilirubin Urine Urobilinogen Ur Leukocyte Esterase Urine RBC Urine WBC Ur Squamous Epith Cells Urine Bacteria Urine Mucus Crossmatch Medical Necessity - Tobacco Use Smoking Status: Former smoker Assessment/Plan All Active Problems (Last Reviewed 05/16/18 @ 07:02 by Ron Franoc MD) Acute blood loss anemia (Acute) hematemesis, melena, likely peptic ulcer disease We will plan for bowel prep today and perform upper and lower endoscopytomorrow. Ppatient's hemoglobin has been stable and her chest pain resolved.
[2018-05-18] VITALS (16 sets, daily range): BP systolic 90–147; BP diastolic 42–97; PULSE 60–106; RESP 16–20; TEMP 36.8–37.2; O2SAT 94–99
[2018-05-18 05:25] LABS: Hematocrit 28.5 % (37-47); Hemoglobin 9.4 g/dl (12.0-15.0); Mean Corpuscular Hgb 31.3 pg (27.0-32.0); Mean Platelet Vol. 11.3 fl (6.2-12.0); Platelet Count 148 K/mm3 (150-450); RBC Distribution Width CV 13.4 % (11.6-14.6); RBC Distribution Width SD 44.2 fl (35.1-43.9); White Blood Count 13.5 K/mm3 (4.4-11.0)
[2018-05-18 05:26] LABS: Scan Indicated on CBC? Y/N NO
[2018-05-18 05:33] LABS: International Normalized Ratio 1.4; Prothrombin Time (Protime)PT. 16.5 SECONDS (11.7-14.9)
[2018-05-18 05:40] LABS: Anion Gap 6 (5-15); BUN 11 mg/dL (7-18); BUN/Creat Ratio 10.5 RATIO (10-20); Calcium,Total 7.4 mg/dL (8.5-10.1); Chloride 108 mmol/L (98-107); Creatinine, Serum 1.05 mg/dL (0.55-1.02); EST Glomerular Filtration Rate 55 mL/min (>60); Est Glom Filt Rate - Afr Amer 67 mL/min (>60); Estimated Creatinine Clearance 44.28 ml/min; Glucose 116 mg/dL (74-106); Sodium Level 139 mmol/L (136-145)
--- NOTE | 2018-05-18 05:55 | EKG12_ITS ---
Test Reason : AM EKG Blood Pressure : / mmHG Vent. Rate : 073 BPM Atrial Rate : 073 BPM P-R Int : 148 ms QRS Dur : 088 ms QT Int : 430 ms P-R-T Axes : 029 022 057 degrees QTc Int : 473 ms Normal sinus rhythm Normal ECG When compared with ECG of 15-MAY-2018 21:52, MANUAL COMPARISON REQUIRED, DATA IS UNCONFIRMED Confirmed by ELENA HANNAH ([id number]), assignment desk editor PERICO NORRIS ([id number]) on 05/22/2018 5:15:18 PM Referred By: DR MIDDLETON Confirmed By:ELENA HANNAH
--- NOTE | 2018-05-18 07:00 | IMM_PTH ---
PATIENT: DOT JOSEPH LOC: PCU U#:[id number] AGE/SX: 68/F ROOM: [facility] RE05/16/[address]: Dr. Jeanmarie Sargent DO : 1950 BED: 1 DIS: 05/19/2018 SPEC #: [id number] RECD: 05/18/18 13:09 STATUS: MARIO DAMON #: [id number] SIERRA: 05/18/18 07:[address]: Mario Grubbs DEPT: IMMUNOHISTOCHEMISTRY RECD BY: Danielle Scherer ENTERED: 05/18/18 13:10 SP TYPE: IMMUNO OTHR DR: MD Dr. Ron Rene MD Dr. Raymond Mason, MD Raymond Mason Tissues: Stomach, NOS Procedures: H Pylori (initial) PHYSICIAN & INSTITUTION [place] [id number] SPECIMEN INFORMATION: Tissue Source: Antrum biopsy Clinical Info: GI bleed, presumed peptic ulcer Specimen Number: [id number] CPT code: 49458 METHODOLOGY: Deparaffinized sections of prefer/formalin-fixed tissue or PAP/DQ stained slides are incubated with monoclonal/polyclonal antibodies/oligonucleotide probes. Localization is made via biotin free immunoperoxidase method. Appropriate controls are performed and reacted as expected. Results on target cell population are indicated in the following table: RESULTS: ANTIBODY / CLONE RESULT H Pylori (polyclonal) negative These tests were developed and their performance characteristics determined by [facility]. They may not have been cleared or approved by the U.S. Food and Drug Administration. The FDA has determined that such clearance or approval is not necessary. INTERPRETATION: Antrum, biopsy: Negative for Helicobacter pylori organisms. AM:mae 05/19/18
--- NOTE | 2018-05-18 07:00 | GASB_PTH ---
PATIENT: DOT JOSEPH LOC: [facility] U#:[id number] AGE/SX: 68/F ROOM: [facility] RE05/16/[address]: Dr. Jeanmarie Sargent DO : 1950 BED: 1 DIS: 05/19/2018 SPEC #: [id number] RECD: 05/18/18 09:15 STATUS: MARIO RECrystal #: [id number] SIERRA: 05/18/18 07:[address]: Mario Grubbs DEPT: SURGICAL PATHOLOGY RECD BY: Jarret Saleem ENTERED: 05/18/18 11:25 SP TYPE: Gastric Bx OTHR DR: MD Dr. Ron Rene MD Dr. Raymond Mason, MD Raymond Mason Tissues: Gastric mucous membrane Procedures: Surgery Specimen Level IV Comments: @ Ordering doctor for SUIV edited from to @ by JUJU at 05/18/18 1125 @ Submitting doctor edited from to @ by JUJU at 05/18/18 1125 HEADER OPERATION: Colonoscopy, EGD ([facility] [place]) PRE-OP DIAGNOSIS: GI bleed, presumed peptic ulcer TISSUE SUBMITTED: Antrum biopsy for H. pylori and path MICROSCOPIC DIAGNOSIS Gastric antrum, biopsy: Minimal chronic inflammation. SKYLER:mae 05/19/18 COMMENT The results of immunohistochemistry for Helicobacter pylori will be reported separately ([id number]). MICROSCOPIC DESCRIPTION Slides are reviewed. GROSS DESCRIPTION Received in fixative is one container labeled with the patient's name and designated antrum biopsy. The specimen consists of one irregular fragment of light beltrán soft tissue that measures 0.6 x 0.2 x 0.1 cm. The specimen is totally submitted in one cassette. / AM:mae 05/18/18 TC:3 CPT: 74119
--- NOTE | 2018-05-18 07:55 | OP.ENDO_ITS ---
05/18/2018 Ruslan Kang Re : Upper GI endoscopy procedure for Divya Garza Jorge Luis This procedure was performed on May. My impressions and recommendations are as follows: Impressions : - Normal examined jejunum. - Normal. - Non-bleeding gastric ulcer with no stigmata of bleeding. Biopsied. - Normal esophagus. - Small hiatal hernia. Recommendations : - Use Protonix (pantoprazole) 40 mg PO daily. - Continue present medications. My findings are described in the full procedure note, which is enclosed. If I can be of further assistance, please feel free to contact me at Doctor phone number(s): , Work: . Sincerely, Mario Grubbs MD 05/18/2018 7:54:49 AM This report has been signed electronically.
--- NOTE | 2018-05-18 07:57 | OP.ENDO_ITS ---
05/18/2018 Ruslan Kang Re : Colonoscopy procedure for Divya Garza Jorge Luis This procedure was performed on May. My impressions and recommendations are as follows: Impressions : - Diverticulosis in the sigmoid colon. - The examination was otherwise normal. - The distal rectum and anal verge are normal on retroflexion view. - No specimens collected. Recommendations : - Discharge patient to home. - Resume previous diet. - Continue present medications. - Repeat colonoscopy in 10 years for screening purposes. My findings are described in the full procedure note, which is enclosed. If I can be of further assistance, please feel free to contact me at Doctor phone number(s): , Work: . Sincerely, Mario Grubbs MD 05/18/2018 7:56:50 AM This report has been signed electronically.
--- NOTE | 2018-05-18 09:23 | CASEMGMT ---
Addendum entered by Socorro Ngo 05/18/18 10:01: This RN CM to room to speak with pt regarding discharge plan and pt does state that she would like to go to [place] at discharge d/t increased weakness. Call to OLIVER Riojas assist, and asked her to send a referral to [place] at this time, voices understanding. Cee MCKEON CM Original Note: Per Felicia MCKEON, pt does not feel safe going home and would prefer to go to [place] at discharge. Oliver mckeon, voices understanding. Cee MCKEON CM
--- NOTE | 2018-05-18 10:19 | CASEMGMT ---
Call placed to [facility], spoke with Kiersten. There is bed availability at facility. OK to fax referral. Referral sent to [phone], confirmation received. Beulah Leonard LPN Clinical Support
--- NOTE | 2018-05-18 10:45 | PCM.PN.HOSP ---
Patient Problems: Active and Suspected Problems (Last Reviewed 05/16/18 @ 07:02 by Ron Franco MD) Acute blood loss anemia (Acute) Subjective: She was transfused with 1 unit PRBC on 05/17/2018 hemoglobin this a.m. is 9.4 patient is scheduled to undergo endoscopic evaluation both upper and lower by Dr. Ventura Objective: GENERAL: cooperative HEENT: Atraumatic; EYES; Anicteric, Normal Conjunctiva NECK; supple, normal thyroid, no distended JVD. RESPIRATORY: Diminished to auscultation bilaterally, CARDIOVASCULAR: Regular S1 S2, GI: soft, non-tender, normoactive bowel sounds, : No Renal angle tenderness; EXTREMITIES: No edema, no clubbing, no cyanosis. MUSCULOSKELETAL: No Joint Tenderness; NEURO: Awake; no lateralizing signs. SKIN: No Rash PSYCH; Normal affect Vitals/I&O's: Vital Signs Temp Pulse Resp BP Pulse Ox 98.8 F 66 16 112/54 L 96 05/18/18 09:04 05/18/18 09:04 05/18/18 09:04 05/18/18 09:04 05/18/18 09:04 Oxygen Flow Rate (L/min) 2 Oxygen Delivery Method Room Air Weight: 77.5 kg Body Mass Index (BMI) 29.3 Finger Stick Blood Glucose 85 Intake and Output for Last 24 Hours 05/16/18 05/17/18 05/18/18 23:59 23:59 23:59 Intake Total 1671.5 / 1671.5 2159.4 / 2159.4 600 / 600 Output Total 1025 / 1025 Balance 646.5 / 646.5 2159.4 / 2159.4 600 / 600 Microbiology Past 72 Hours 05/16/18 21:13 Urine, Clean Catch Urine Culture - Final Mixed Gram Positive Organisms 05/16/18 07:06 Mucosa - Nasopharyngeal Respiratory Panel (PCR) - Final Laboratory Results 05/16/18 08:40: Crossmatch See Detail 05/16/18 13:30: Diff Path Review Reviewed 05/18/18 05:15: WBC 13.5 H, RBC 3.00 L, Hgb 9.4 L, Hct 28.5 L, MCV 95.0, MCH 31.3, MCHC 33.0, RDW 13.4, RDW Differential 44.2 H, Plt Count 148 L, MPV 11.3 05/18/18 05:15: PT 16.5 H, INR 1.4 05/18/18 05:15: Sodium 139, Potassium 3.0 L, Chloride 108 H, Carbon Dioxide 25.0, Anion Gap 6, BUN 11, Creatinine 1.05 H, Estim Creat Clear Calc 44.28, Est GFR (MDRD) Af Amer 67, Est GFR (MDRD) Non-Af 55 L, BUN/Creatinine Ratio 10.5, Glucose 116 H, Calcium 7.4 L Current Medications Acetaminophen (Tylenol) 650 mg PO Q6H PRN PRN PRN Reason: PAIN Pantoprazole Sodium 80 mg/ (Sodium Chloride) 100 mls @ 10 mls/hr CONT INF Q10H ROBERT Last Admin: 05/18/18 02:44 Dose: 10 mls/hr Sodium Chloride () 250 mls @ 15 mls/hr IV .[id number] PRN PRN Reason: SALINE FLUSH Sodium Chloride () 250 mls @ 15 mls/hr IV .[id number] PRN PRN Reason: SALINE FLUSH Morphine Sulfate () 1 mg IV Q3H PRN PRN PRN Reason: SEVERE PAIN (6-10/10) Last Admin: 05/17/18 10:49 Dose: 0.5 mg Ondansetron HCl (Zofran) 4 mg IV Q6H PRN PRN PRN Reason: NAUSEA/VOMITING Last Admin: 05/16/18 09:19 Dose: 4 mg Sodium Chloride () 5 - 15 ml IV UD PRN PRN Reason: SALINE FLUSH Last Admin: 05/17/18 16:07 Dose: 10 ml Medical Necessity - Tobacco Use Smoking Status: Former smoker Assessment/Plan All Active Problems (Last Reviewed 05/16/18 @ 07:02 by Ron Franco MD) Acute blood loss anemia (Acute) Patient is a 68-year-old lady admitted with nausea vomiting and abdominal discomfort. She also did complain of intermittent episodes of both black tarry stools as well as bright red stools. Patient is on systemic anticoagulation with Coumadin INR on admission was 3.5 patient was administered with vitamin K the general surgeon carton marker machine Dr. Grubbs was notified patient admitted to the intensive care unit. 1. Anemia secondary to secondary to acute blood loss anemia from GI Bleed do suspect a combination of both upper and lower GI bleed in the context of coagulopathy due to Coumadin use. Patient was placed on Protonix drip did receive vitamin K consult surgery with plans for patient undergo endoscopic evaluation when medically stable . The patient being symptomatic as of 05/17/2018 and order was given for patient to be transfused with 1 unit PRBC .Patient is scheduled to undergo endoscopic evaluation both upper and lower by Dr. Grubbs 05/18/2018 2. Coagulopathy with resultant GI bleed in the context of Coumadin use. Coumadin held on admission patient did receive vitamin K with subsequent monitoring of INR 3. Elevated troponin secondary to patient's severe anemia patient presentation not consistent with acute non-STEMI 4. CAD with previous stent placement to LAD in last CABG 5. Paroxysmal atrial fibrillation heart rate controlled patient anticoagulation held in view of her presenting complaint 6. Carotid artery disease status post left carotid atherectomy in 7. Hypertension-blood pressure controlled, home medications continued with dose adjustment as needed 8. Dyslipidemia-patient is on statin therapy, continued at home dose 9. Previous CVA with no residual effect 10. Sick sinus syndrome status post pacemaker placement 11. Depression with anxiety 12. Peripheral vascular disease 13. DVT prophylaxis bilateral SCDs 14. Physical deconditioning requested for PT OT eval and psychiatric social worker to assist with discharge plan Code Visit Inpatient E&M: 76898 Subs Hosp L2
--- NOTE | 2018-05-18 10:48 | PN_ITS ---
Patient Problems: Active and Suspected Problems (Last Reviewed 05/16/18 @ 07:02 by Ron Franco MD) Acute blood loss anemia (Acute) Subjective: She was transfused with 1 unit PRBC on 05/17/2018 hemoglobin this a.m. is 9.4 patient is scheduled to undergo endoscopic evaluation both upper and lower by Dr. Ventura Objective: GENERAL: cooperative HEENT: Atraumatic; EYES; Anicteric, Normal Conjunctiva NECK; supple, normal thyroid, no distended JVD. RESPIRATORY: Diminished to auscultation bilaterally, CARDIOVASCULAR: Regular S1 S2, GI: soft, non-tender, normoactive bowel sounds, : No Renal angle tenderness; EXTREMITIES: No edema, no clubbing, no cyanosis. MUSCULOSKELETAL: No Joint Tenderness; NEURO: Awake; no lateralizing signs. SKIN: No Rash PSYCH; Normal affect Vitals/I&O's: Vital Signs Temp Pulse Resp BP Pulse Ox 98.8 F 66 16 112/54 L 96 05/18/18 09:04 05/18/18 09:04 05/18/18 09:04 05/18/18 09:04 05/18/18 09:04 Oxygen Flow Rate (L/min) 2 Oxygen Delivery Method Room Air Weight: 77.5 kg Body Mass Index (BMI) 29.3 Finger Stick Blood Glucose 85 Intake and Output for Last 24 Hours 05/16/18 05/17/18 05/18/18 23:59 23:59 23:59 Intake Total 1671.5 / 1671.5 2159.4 / 2159.4 600 / 600 Output Total 1025 / 1025 Balance 646.5 / 646.5 2159.4 / 2159.4 600 / 600 Microbiology Past 72 Hours 05/16/18 21:13 Urine, Clean Catch Urine Culture - Final Mixed Gram Positive Organisms 05/16/18 07:06 Mucosa - Nasopharyngeal Respiratory Panel (PCR) - Final Laboratory Results 05/16/18 08:40: Crossmatch See Detail 05/16/18 13:30: Diff Path Review Reviewed 05/18/18 05:15: WBC 13.5 H, RBC 3.00 L, Hgb 9.4 L, Hct 28.5 L, MCV 95.0, MCH 31.3, MCHC 33.0, RDW 13.4, RDW Differential 44.2 H, Plt Count 148 L, MPV 11.3 05/18/18 05:15: PT 16.5 H, INR 1.4 05/18/18 05:15: Sodium 139, Potassium 3.0 L, Chloride 108 H, Carbon Dioxide 25.0, Anion Gap 6, BUN 11, Creatinine 1.05 H, Estim Creat Clear Calc 44.28, Est GFR (MDRD) Af Amer 67, Est GFR (MDRD) Non-Af 55 L, BUN/Creatinine Ratio 10.5, Glucose 116 H, Calcium 7.4 L Current Medications Acetaminophen (Tylenol) 650 mg PO Q6H PRN PRN PRN Reason: PAIN Pantoprazole Sodium 80 mg/ (Sodium Chloride) 100 mls @ 10 mls/hr CONT INF Q10H ROBERT Last Admin: 05/18/18 02:44 Dose: 10 mls/hr Sodium Chloride () 250 mls @ 15 mls/hr IV .[id number] PRN PRN Reason: SALINE FLUSH Sodium Chloride () 250 mls @ 15 mls/hr IV .[id number] PRN PRN Reason: SALINE FLUSH Morphine Sulfate () 1 mg IV Q3H PRN PRN PRN Reason: SEVERE PAIN (6-10/10) Last Admin: 05/17/18 10:49 Dose: 0.5 mg Ondansetron HCl (Zofran) 4 mg IV Q6H PRN PRN PRN Reason: NAUSEA/VOMITING Last Admin: 05/16/18 09:19 Dose: 4 mg Sodium Chloride () 5 - 15 ml IV UD PRN PRN Reason: SALINE FLUSH Last Admin: 05/17/18 16:07 Dose: 10 ml Medical Necessity - Tobacco Use Smoking Status: Former smoker Assessment/Plan All Active Problems (Last Reviewed 05/16/18 @ 07:02 by Ron Franco MD) Acute blood loss anemia (Acute) Patient is a 68-year-old lady admitted with nausea vomiting and abdominal discomfort. She also did complain of intermittent episodes of both black tarry stools as well as bright red stools. Patient is on systemic anticoagulation with Coumadin INR on admission was 3.5 patient was administered with vitamin K the general surgeon sugar controller Dr. Grubbs was notified patient admitted to the intensive care unit. 1. Anemia secondary to secondary to acute blood loss anemia from GI Bleed do suspect a combination of both upper and lower GI bleed in the context of coagulopathy due to Coumadin use. Patient was placed on Protonix drip did receive vitamin K consult surgery with plans for patient undergo endoscopic evaluation when medically stable . The patient being symptomatic as of 05/17/2018 and order was given for patient to be transfused with 1 unit PRBC .Patient is scheduled to undergo endoscopic evaluation both upper and lower by Dr. Grubbs 05/18/2018 2. Coagulopathy with resultant GI bleed in the context of Coumadin use. Coumadin held on admission patient did receive vitamin K with subsequent monitoring of INR 3. Elevated troponin secondary to patient's severe anemia patient presentation not consistent with acute non-STEMI 4. CAD with previous stent placement to LAD in last CABG 5. Paroxysmal atrial fibrillation heart rate controlled patient anticoagulation held in view of her presenting complaint 6. Carotid artery disease status post left carotid atherectomy in 7. Hypertension-blood pressure controlled, home medications continued with dose adjustment as needed 8. Dyslipidemia-patient is on statin therapy, continued at home dose 9. Previous CVA with no residual effect 10. Sick sinus syndrome status post pacemaker placement 11. Depression with anxiety 12. Peripheral vascular disease 13. DVT prophylaxis bilateral SCDs 14. Physical deconditioning requested for PT OT eval and certified social workers in health care to assist with discharge plan Code Visit Inpatient E&M: 51995 Subs Hosp L2
[2018-05-18] MEDS: Acetaminophen 325 MG Tablet 650 MG PO ×2 (11:56→21:47)
[2018-05-18] MEDS: BENZOCAINE/MENTHOL 1 LOZENGE MUCOUS MEM (11:56)
--- NOTE | 2018-05-18 12:36 | CASEMGMT ---
Received voicemail from Kiersten at [facility], they are able to accept patient. Called Kiersten back, updated her that patient is not discharging today. Kiersten requests that we update her tomorrow. Beulah Leonard LPN Clinical Support
--- NOTE | 2018-05-18 12:56 | CASEMGMT ---
Per Claudia, OLIVER assist, [facility] can take pt and advised her that pt may be ready tomorrow. Oliver BERNABE aware, voices understanding. Cee MCKEON CM
--- NOTE | 2018-05-18 14:01 | CASEMGMT ---
Social Work SW met with pt and informed her [facility] can accept pt as early as tomorrow. Pt is agreeable and denies SW need to call family as pt states she has been providing them with information. Plan: toni Shabazz d/c tomorrow 05/19/18 RANJAN Acosta
[2018-05-18] MEDS: Pantoprazole Sodium 40 MG Tablet PO (21:47)
[2018-05-19] VITALS (9 sets, daily range): BP systolic 113–128; BP diastolic 48–75; PULSE 60–75; RESP 12–16; TEMP 36.5–36.8; O2SAT 94–97
[2018-05-19] MEDS: 0.9% NaCl Peripheral Flush Adult/Peds IV ×2 (05:15→05:16)
[2018-05-19 06:14] LABS: International Normalized Ratio 1.2; Prothrombin Time (Protime)PT. 14.5 SECONDS (11.7-14.9)
[2018-05-19 06:19] LABS: Anion Gap 4 (5-15); BUN 8 mg/dL (7-18); BUN/Creat Ratio 8.1 RATIO (10-20); Calcium,Total 8.2 mg/dL (8.5-10.1); Chloride 108 mmol/L (98-107); Creatinine, Serum 0.99 mg/dL (0.55-1.02); EST Glomerular Filtration Rate 59 mL/min (>60); Est Glom Filt Rate - Afr Amer 72 mL/min (>60); Estimated Creatinine Clearance 46.96 ml/min; Glucose 101 mg/dL (74-106); Potassium 3.3 mmol/L (3.5-5.1); Sodium Level 140 mmol/L (136-145)
[2018-05-19 06:22] LABS: Hemoglobin 8.9 g/dl (12.0-15.0); Mean Corp Hgb Conc 31.8 g/gl (32-36); Mean Corpuscular Hgb 30.7 pg (27.0-32.0); Mean Corpuscular Volume 96.6 fL (81-99); Mean Platelet Vol. 11.8 fl (6.2-12.0); Platelet Count 163 K/mm3 (150-450); RBC Distribution Width CV 13.7 % (11.6-14.6); RBC Distribution Width SD 45.4 fl (35.1-43.9); White Blood Count 8.7 K/mm3 (4.4-11.0)
[2018-05-19 06:25] LABS: Scan Indicated on CBC? Y/N NO
[2018-05-19] MEDS: Pantoprazole Sodium 40 MG Tablet PO (09:19)
--- NOTE | 2018-05-19 15:08 | CASEMGMT ---
SRINIVASA spoke with Kiersten at [facility]. SRINIVASA let her know patient will likely be coming today, but SW does not have orders yet. Convalescent completed on HENS. Green sheet on chart with instructions. Plan: d/c to [facility] under skilled level of care on a convalescent stay. Green sheet on chart. Pamela SEPULVEDA MSW
--- NOTE | 2018-05-19 16:37 | PCM.TXEXTCAR ---
- Diet 05/18/18 09:02 Diet: Regular Diet Is pt able to select menu?: Yes - Routine Orders/Code Status Routine Lab Work: CBC - NEXT TUESDAY, INR - DAILY FOR 7 DAYS STARTING ON 05/22/18-CALL RESULT TO ATTENDING - Wound(s) Buttock Wound Type: scab - Therapies Weight Bearing: Full weight bearing Physical Therapy: Eval and Treat Occupational Therapy: Eval and Treat - Problem/Diagnosis (1) Acute blood loss anemia Status: Acute Comment: EXACT ETIOLOGY UNKNOWN-FELT TO BE GI SOURCE, UNIDENTIFIED Current Visit: Yes (2) Presence of stent in coronary artery Status: Chronic Comment: PTCA/stent to ostial and prox LAD 06/2006 Current Visit: No (3) Essential hypertension Status: Chronic Current Visit: No (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 Current Visit: No (5) Hx of CABG Status: Chronic Comment: CABG x3- 06/29/2006 with SANDHU to LAD, SVG to diagonal, & SVG to RCA Current Visit: No (6) Paroxysmal atrial fibrillation Status: Chronic Current Visit: No (7) HLD (hyperlipidemia) Status: Chronic Current Visit: No (8) Chronic back pain Status: Chronic Current Visit: No - Allergies/Procedures Done in Hospital Allergies/Adverse Reactions: Allergies atorvastatin calcium [From Lipitor] Allergy (Verified 05/15/18 21:13) Hives gluten Allergy (Verified 05/15/18 21:13) Food Allergy metoprolol succinate [From Toprol XL] Allergy (Verified 05/15/18 21:13) Rash niacin [From Niaspan Extended-Release] Allergy (Verified 05/05/18 16:25) Rash Penicillins Allergy (Verified 05/15/18 21:13) Rash Sulfa (Sulfonamide Antibiotics) Allergy (Verified 05/15/18 21:13) Itching radionuclide Allergy (Uncoded 05/15/18 21:13) It almost killed me stress test radionuclide - Type of Care/Length of Stay Estimated LOS: Convalescent Care Less Than 30 days Type of Care Needed: Skilled Rehab Potential: Good Prognosis: Good - Additional Orders/Day of Discharge Additional Orders: NO NONSTEROIDAL ANTI-INFLAMMATORY USE H&P will serve as current which was dated: 05/16/18 Day of Discharge: 05/19/18 - Dietary and Speech Recommendations Dietitian Recommendations/Changes: Please change diet to include gluten free restriction - Follow Up Care Primary Care Physician: Ruslan Kang MD [Primary Care Provider] -
--- NOTE | 2018-05-19 16:42 | TREXTCAR_ITS ---
- Diet 05/18/18 09:02 Diet: Regular Diet Is pt able to select menu?: Yes - Routine Orders/Code Status Routine Lab Work: CBC - NEXT TUESDAY, INR - DAILY FOR 7 DAYS STARTING ON 05/22/18- CALL RESULT TO ATTENDING - Wound(s) Buttock Wound Type: scab - Therapies Weight Bearing: Full weight bearing Physical Therapy: Eval and Treat Occupational Therapy: Eval and Treat - Problem/Diagnosis (1) Acute blood loss anemia Status: Acute Comment: EXACT ETIOLOGY UNKNOWN-FELT TO BE GI SOURCE, UNIDENTIFIED Current Visit: Yes (2) Presence of stent in coronary artery Status: Chronic Comment: PTCA/stent to ostial and prox LAD 06/2006 Current Visit: No (3) Essential hypertension Status: Chronic Current Visit: No (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 Current Visit: No (5) Hx of CABG Status: Chronic Comment: CABG x3- 06/29/2006 with SANDHU to LAD, SVG to diagonal, & SVG to RCA Current Visit: No (6) Paroxysmal atrial fibrillation Status: Chronic Current Visit: No (7) HLD (hyperlipidemia) Status: Chronic Current Visit: No (8) Chronic back pain Status: Chronic Current Visit: No - Allergies/Procedures Done in Hospital Allergies/Adverse Reactions: Allergies atorvastatin calcium [From Lipitor] Allergy (Verified 05/15/18 21:13) Hives gluten Allergy (Verified 05/15/18 21:13) Food Allergy metoprolol succinate [From Toprol XL] Allergy (Verified 05/15/18 21:13) Rash niacin [From Niaspan Extended-Release] Allergy (Verified 05/05/18 16:25) Rash Penicillins Allergy (Verified 05/15/18 21:13) Rash Sulfa (Sulfonamide Antibiotics) Allergy (Verified 05/15/18 21:13) Itching radionuclide Allergy (Uncoded 05/15/18 21:13) It almost killed me stress test radionuclide - Type of Care/Length of Stay Estimated LOS: Convalescent Care Less Than 30 days Type of Care Needed: Skilled Rehab Potential: Good Prognosis: Good - Additional Orders/Day of Discharge Additional Orders: NO NONSTEROIDAL ANTI-INFLAMMATORY USE H&P will serve as current which was dated: 05/16/18 Day of Discharge: 05/19/18 - Dietary and Speech Recommendations Dietitian Recommendations/Changes: Please change diet to include gluten free restriction - Follow Up Care Primary Care Physician: Ruslan Kang MD [Primary Care Provider] -
--- NOTE | 2018-05-19 17:41 | NURSING ---
Report called to [facility].
--- NOTE | 2018-05-20 07:14 | PCM.PN.SRG ---
Subjective: Missed note-May 19-no complaints - Physical Exam General: Alert, Oriented x3, Cooperative Lungs: Clear to auscultation, Normal air movement Cardiovascular: Regular rate, No murmurs Abdomen: Bowel Sounds Present, Soft, Non Tender Vital Signs Temp Pulse Resp BP Pulse Ox 98.3 F 62 16 128/48 H 97 05/19/18 17:10 05/19/18 17:10 05/19/18 17:10 05/19/18 17:10 05/19/18 17:10 Oxygen Flow Rate (L/min) 2 Oxygen Delivery Method Room Air Weight: 77.5 kg Body Mass Index (BMI) 29.3 Finger Stick Blood Glucose 85 Intake and Output for Last 24 Hours 05/18/18 05/19/18 05/20/18 23:59 23:59 23:59 Intake Total 1546 / 1546 720 / 720 Balance 1546 / 1546 720 / 720 Microbiology Past 72 Hours 05/16/18 06:10 Blood Culture - Preliminary Blood Culture (Wb) - Left Forearm No growth in 48 hours. 05/16/18 06:00 Blood Culture - Preliminary Blood Culture (Wb) - Right Wrist No growth in 48 hours. 05/16/18 21:13 Urine Culture - Final Urine, Clean Catch Mixed Gram Positive Organisms Medical Necessity - Tobacco Use Smoking Status: Former smoker Assessment/Plan All Active Problems (Last Reviewed 05/16/18 @ 07:02 by Ron Franco MD) Acute blood loss anemia (Acute) hematemesis, melena, likely peptic ulcer disease upper and lower endoscopy demonstrated a healing gastric ulcer consistent with the patient's presenting symptoms. Colonoscopy prep was adequate and had no abnormalities noted. Comfortable with the patient main discharged on oral proton pump inhibitors. Have patient follow-up in my office in one week.
--- NOTE | 2018-05-21 15:07 | PCM.DC.SUM ---
Discharge Date and Diagnosis Date of Admission: 05/16/18 Date of Discharge: 05/19/18 - Primary Discharge Diagnosis #1 Acute blood loss anemia secondary to bleeding from gastric ulcer requiring blood transfusion #2 gastric ulcer #3 coagulopathy secondary to warfarin usage #4 paroxysmal atrial fibrillation #5 coronary artery disease #6 hyperlipidemia #7 essential hypertension #8 leukocytosis-secondary to recent prednisone usage #9 diverticulosis - Secondary Discharge Diagnosis Chronic Problems (Last Reviewed 05/16/18 @ 07:02 by Ron Franco MD) Presence of stent in coronary artery (Chronic) PTCA/stent to ostial and prox LAD 06/2006 Essential hypertension (Chronic) half-way current use of anticoagulant (Chronic) Hx of CABG (Chronic ~06/29/06) CABG x3- 06/29/2006 with SANDHU to LAD, SVG to diagonal, & SVG to RCA Carotid artery disease (Chronic) S/P left carotid endarterectomy June 2006; Atherosclerosis of [place] coronary artery of [place] heart without angina pectoris (Chronic) S/P CABG 06/29/2006 with SANDHU to LAD, SVG to diagonal, & SVG to RCA; PCI to prox LAD 06/2006 post CABG; Paroxysmal atrial fibrillation (Chronic) PVD (peripheral vascular disease) (Chronic) ? bilateral LE stents HLD (hyperlipidemia) (Chronic) Sick sinus syndrome with tachycardia (Chronic) S/P Pacemaker implantation 04/09/2013; Cerebrovascular disease (Chronic) hx stroke mild residual left hemiparesis s/p left CEA 2006 mild-mod external carotid disease 05/18 Pacemaker (Chronic) Bradycardia (Chronic) Chronic back pain (Chronic) Tobacco use (Chronic) Depression with anxiety (Chronic) Hospital Course and Treatment Operations: None - Permanent pacemaker placement Procedures: Blood transfusion, Colonoscopy, EGD Summary of Care Provided: The patient is a 68 year old F who was seen in the emergency room at [facility] with chief complaint of nausea and vomiting. Workup in the ER included labs which showed the patient to be anemic and have an elevated white blood cell count. Patient's INR was also elevated (patient was taking Coumadin as an outpatient). Patient was admitted to PCU for acute anemia-felt to be secondary to GI bleeding, she was seen in consultation by general surgery, she was given 2 units of packed red blood cells, and labs were monitored. Colonoscopy and EGD was performed, colonoscopy showed diverticulosis, EGD showed presence of gastric ulcer which was not bleeding. Patient had been taking nonsteroidal anti-inflammatory agents and was advised not to take them any longer. Patient's Coumadin was held during her hospital stay, it was resumed at the time of discharge. Physical exam: On examination she appeared in good health and spirits. Vital signs as documented. Skin warm and dry and without overt rashes. Neck without JVD. Lungs clear. Heart exam notable for regular rhythm, normal sounds and absence of murmurs, rubs or gallops. Abdomen unremarkable and without evidence of organomegaly, masses, or abdominal aortic enlargement. Extremities nonedematous. Neuro: Cranial nerves II through XII are grossly intact, no focal motor deficits were noted, sensation to light touch and pinprick is intact. Psych: Patient is alert and oriented x3, she does not appear anxious or depressed On 05/19/18, patient was seen and examined and felt to be in stable condition for discharge back to her skilled care facility. - Physical Exam Vital Signs Temp Pulse Resp BP Pulse Ox 98.3 F 62 16 128/48 H 97 05/19/18 17:10 05/19/18 17:10 05/19/18 17:10 05/19/18 17:10 05/19/18 17:10 Oxygen Flow Rate (L/min) 2 Oxygen Delivery Method Room Air Weight: 77.5 kg Body Mass Index (BMI) 29.3 Finger Stick Blood Glucose 85 Intake and Output for Last 24 Hours 05/19/18 05/20/18 05/21/18 23:59 23:59 23:59 Intake Total 720 / 720 Balance 720 / 720 Microbiology Past 72 Hours 05/16/18 06:10 Blood Culture - Final Blood Culture (Wb) - Left Forearm No growth in 5 days. 05/16/18 06:00 Blood Culture - Final Blood Culture (Wb) - Right Wrist No growth in 5 days. Home Medications: Medications to take at Discharge Aspirin [Aspirin, Baby] 81 mg PO DAILY@0800 08/23/13 nitroglycerin 0.4 mg sublingual tablet 0.4 mg SUBLINGUAL Q5M PRN 03/29/17 Enalapril Maleate 2.5 mg PO BID 08/05/17 warfarin 2.5 mg tablet 2.5 mg PO .COMPLEX #0 tab 12/09/17 isosorbide mononitrate 10 mg tablet 10 mg PO BID #60 tab 01/30/18 metoprolol tartrate 25 mg tablet 12.5 mg PO BID #30 tab 01/30/18 pravastatin 80 mg tablet 80 mg PO QHS #30 tab 01/30/18 potassium chloride ER 10 mEq tablet,extended release 20 meq PO DAILY #60 tab 05/04/18 Acetaminophen [Tylenol Tablet] 650 mg PO Q6H PRN PRN tablet 05/19/18 Pantoprazole Sodium [Protonix] 40 mg PO BID tablet 05/19/18 Primary Care Physician: Ruslan Kang MD [Primary Care Provider] - Disposition: [facility] facility Minutes spent on discharge:: 32 Patient Condition:: Stable Medical Necessity - Tobacco Use Smoking Status: Former smoker Meaningful Use Info Meaningful Use Diagnoses (Choose all that apply): None applicable Code Visit Inpatient E&M: 55747 Disch Hosp
--- NOTE | 2018-05-21 15:15 | DS.PCM_ITS ---
Discharge Date and Diagnosis Date of Admission: 05/16/18 Date of Discharge: 05/19/18 - Primary Discharge Diagnosis #1 Acute blood loss anemia secondary to bleeding from gastric ulcer requiring blood transfusion #2 gastric ulcer #3 coagulopathy secondary to warfarin usage #4 paroxysmal atrial fibrillation #5 coronary artery disease #6 hyperlipidemia #7 essential hypertension #8 leukocytosis-secondary to recent prednisone usage #9 diverticulosis - Secondary Discharge Diagnosis Chronic Problems (Last Reviewed 05/16/18 @ 07:02 by Ron Franco MD) Presence of stent in coronary artery (Chronic) PTCA/stent to ostial and prox LAD 06/2006 Essential hypertension (Chronic) halfway current use of anticoagulant (Chronic) Hx of CABG (Chronic ~06/29/06) CABG x3- 06/29/2006 with SANDHU to LAD, SVG to diagonal, & SVG to RCA Carotid artery disease (Chronic) S/P left carotid endarterectomy June 2006; Atherosclerosis of [place] coronary artery of [place] heart without angina pectoris (Chronic) S/P CABG 06/29/2006 with SANDHU to LAD, SVG to diagonal, & SVG to RCA; PCI to prox LAD 06/2006 post CABG; Paroxysmal atrial fibrillation (Chronic) PVD (peripheral vascular disease) (Chronic) ? bilateral LE stents HLD (hyperlipidemia) (Chronic) Sick sinus syndrome with tachycardia (Chronic) S/P Pacemaker implantation 04/09/2013; Cerebrovascular disease (Chronic) hx stroke mild residual left hemiparesis s/p left CEA 2006 mild-mod external carotid disease 05/18 Pacemaker (Chronic) Bradycardia (Chronic) Chronic back pain (Chronic) Tobacco use (Chronic) Depression with anxiety (Chronic) Hospital Course and Treatment Operations: None - Permanent pacemaker placement Procedures: Blood transfusion, Colonoscopy, EGD Summary of Care Provided: The patient is a 68 year old F who was seen in the emergency room at [facility] with chief complaint of nausea and vomiting. Workup in the ER included labs which showed the patient to be anemic and have an elevated white blood cell count. Patient's INR was also elevated (patient was taking Coumadin as an outpatient). Patient was admitted to PCU for acute anemia-felt to be secondary to GI bleeding, she was seen in consultation by general surgery, she was given 2 units of packed red blood cells, and labs were monitored. Colonoscopy and EGD was performed, colonoscopy showed diverticulosis, EGD showed presence of gastric ulcer which was not bleeding. Patient had been taking nonsteroidal anti-inflammatory agents and was advised not to take them any longer. Patient's Coumadin was held during her hospital stay, it was resumed at the time of discharge. Physical exam: On examination she appeared in good health and spirits. Vital signs as documented. Skin warm and dry and without overt rashes. Neck without JVD. Lungs clear. Heart exam notable for regular rhythm, normal sounds and absence of murmurs, rubs or gallops. Abdomen unremarkable and without evidence of organomegaly, masses, or abdominal aortic enlargement. Extremities nonedematous. Neuro: Cranial nerves II through XII are grossly intact, no focal motor deficits were noted, sensation to light touch and pinprick is intact. Psych: Patient is alert and oriented x3, she does not appear anxious or depressed On 05/19/18, patient was seen and examined and felt to be in stable condition for discharge back to her skilled care facility. - Physical Exam Vital Signs Temp Pulse Resp BP Pulse Ox 98.3 F 62 16 128/48 H 97 05/19/18 17:10 05/19/18 17:10 05/19/18 17:10 05/19/18 17:10 05/19/18 17:10 Oxygen Flow Rate (L/min) 2 Oxygen Delivery Method Room Air Weight: 77.5 kg Body Mass Index (BMI) 29.3 Finger Stick Blood Glucose 85 Intake and Output for Last 24 Hours 05/19/18 05/20/18 05/21/18 23:59 23:59 23:59 Intake Total 720 / 720 Balance 720 / 720 Microbiology Past 72 Hours 05/16/18 06:10 Blood Culture - Final Blood Culture (Wb) - Left Forearm No growth in 5 days. 05/16/18 06:00 Blood Culture - Final Blood Culture (Wb) - Right Wrist No growth in 5 days. Home Medications: Medications to take at Discharge Aspirin [Aspirin, Baby] 81 mg PO DAILY@0800 08/23/13 nitroglycerin 0.4 mg sublingual tablet 0.4 mg SUBLINGUAL Q5M PRN 03/29/17 Enalapril Maleate 2.5 mg PO BID 08/05/17 warfarin 2.5 mg tablet 2.5 mg PO .COMPLEX #0 tab 12/09/17 isosorbide mononitrate 10 mg tablet 10 mg PO BID #60 tab 01/30/18 metoprolol tartrate 25 mg tablet 12.5 mg PO BID #30 tab 01/30/18 pravastatin 80 mg tablet 80 mg PO QHS #30 tab 01/30/18 potassium chloride ER 10 mEq tablet,extended release 20 meq PO DAILY #60 tab 05/04/18 Acetaminophen [Tylenol Tablet] 650 mg PO Q6H PRN PRN tablet 05/19/18 Pantoprazole Sodium [Protonix] 40 mg PO BID tablet 05/19/18 Primary Care Physician: Ruslan Kang MD [Primary Care Provider] - Disposition: [facility] facility Minutes spent on discharge:: 32 Patient Condition:: Stable Medical Necessity - Tobacco Use Smoking Status: Former smoker Meaningful Use Info Meaningful Use Diagnoses (Choose all that apply): None applicable Code Visit Inpatient E&M: 84565 Disch Hosp
== END 2018-05-19 18:06 | disposition skilled nursing facility (03) | DRG 811 ==
LOC: ED 22:01 → ICU 05-16 01:40 → PCU 05-16 21:04
PROVIDERS: Internal Medicine; Surgery; Admitting Provider Hospitalist; Emergency Provider Emergency Medicine; PCP Family Medicine; Visit Provider Internal Medicine
PROC: 0DJD8ZZ Inspection of Lower Intestinal Tract, Via Natural or Artificial Opening Endoscopic (ICD-10-PCS; CPT 45378; principal; 2018-05-18 06:55)
DX: D62 Acute posthemorrhagic anemia (principal); K25.4 Chronic or unspecified gastric ulcer with hemorrhage; D68.32 Hemorrhagic disorder due to extrinsic circulating anticoagulants; I24.8 Other forms of acute ischemic heart disease; T45.515A Adverse effect of anticoagulants, initial encounter; I48.0 Paroxysmal atrial fibrillation; I25.10 Atherosclerotic heart disease of native coronary artery without angina pectoris; I10 Essential (primary) hypertension; E78.5 Hyperlipidemia, unspecified; F41.8 Other specified anxiety disorders; K44.9 Diaphragmatic hernia without obstruction or gangrene; K57.30 Diverticulosis of large intestine without perforation or abscess without bleeding; G89.29 Other chronic pain; M54.9 Dorsalgia, unspecified; Z95.1 Presence of aortocoronary bypass graft; I73.9 Peripheral vascular disease, unspecified; Z87.891 Personal history of nicotine dependence; Z95.5 Presence of coronary angioplasty implant and graft; Z86.73 Personal history of transient ischemic attack (TIA), and cerebral infarction without residual deficits; Z95.0 Presence of cardiac pacemaker
CPT/HCPCS: 36415; 71045; 80048; 80053; 81001; 83735; 84484; 85025; 85027; 85610; 85730; 86850; 86900; 86920; 86922; 87040; 87086; 87088; 87633; 88305; 88342; 93005; 97110; 97116; 97162; 97166; 97530; 97535; 99285; J7030; P9016; A4216; J2405; J3490

== ENCOUNTER → 2018-08-09 | Outpatient (CLI) | payer MEDICARE, OTHER, SELFPAY ==
[2018-08-09 13:21] VITALS: BMI 29.3
[2018-08-09 13:50] LABS: Prothrombin Time Fingerstick 38.7 SEC (11.9-14.4)
[2018-08-09 14:17] LABS: Absolute Lymphocyte Count 1.54 X10^3/ul (0.83-4.51); Absolute Neutrophil Count 5.1 X10^3/uL (2.0-7.7); Basophil# 0.02 X10^3/uL; Basophil% 0.3 % (0-1); Eosinophil# 0.23 X10^3/uL; Eosinophils% 3.1 % (0-5); Hematocrit 41.4 % (37-47); Hemoglobin 13.2 g/dl (12.0-15.0); Lymphocyte # 1.54 X10^3/ul (4.0); Lymphocyte % 20.4 % (19-41); Mean Corp Hgb Conc 31.9 g/gl (32-36); Mean Corpuscular Hgb 28.6 pg (27.0-32.0); Mean Corpuscular Volume 89.8 fL (81-99); Mean Platelet Vol. 11.9 fl (6.2-12.0); Monocyte# 0.61 X10^3/uL; Monocyte% 8.1 % (0-10); Neutrophil # 5.13 X10^3/uL (2.7-7.7); Platelet Count 217 K/mm3 (150-450); RBC Distribution Width CV 14.1 % (11.6-14.6); RBC Distribution Width SD 45.9 fl (35.1-43.9); Red Blood Count 4.61 M/mm3 (4.2-5.4); White Blood Count 7.5 K/mm3 (4.4-11.0)
[2018-08-09 14:20] LABS: POSITIVE COUNT NO; POSITIVE DIFFERENTIAL NO; POSITIVE MORPHOLOGY NO
[2018-08-09 14:29] LABS: Hemoglobin A1c 5.7 % (4.2-6.3)
[2018-08-09 14:39] LABS: ALB/GLOB Ratio 0.9 RATIO (0.9-2.4); AST(SGOT) 18 U/L (15-37); Alanine Aminotransfer ALT/SGPT 21 U/L (13-56); Albumin, Serum 3.4 g/dL (3.2-5.0); Alkaline Phosphatase 76 U/L (45-117); Anion Gap 7 (5-15); BUN 11 mg/dL (7-18); Calcium,Total 8.5 mg/dL (8.5-10.1); Chloride 105 mmol/L (98-107); Cholesterol 201 mg/dL (200); Creatinine, Serum 1.37 mg/dL (0.55-1.02); EST Glomerular Filtration Rate 41 mL/min (>60); Est Glom Filt Rate - Afr Amer 49 mL/min (>60); Globulin 3.8 g/dL (2.2-4.2); Glucose 141 mg/dL (74-106); High Density Lipoprotein 46 mg/dL; Protein, Total 7.2 g/dL (6.4-8.2); Sodium Level 136 mmol/L (136-145); Triglycerides 161 mg/dL; Very Low Density Lipoprotein 32 mg/dL (5-40)
[2018-08-09 15:30] LABS: Color, Urine Yellow (Yellow); Glucose, Dipstick Normal (Normal); Ketone-Dipstick 5 mg/dl (Negative); Leukocyte Esterase-Dipstick 100 /ul (Negative); Nitrite-Dipstick Negative (Negative); Occult Blood-Urine 10 /ul (Negative); Protein-Dipstick 30 mg/dl (Negative); Specific Gravity, Urine 1.015 (1.002-1.030); Urine Bilirubin Dipstick Negative (Negative); Urine Clarity Sl. Cloudy (Clear); Urine Urobilinogen Normal (Normal)
== END | disposition home or self-care (01) ==
LOC: MTLAB 13:26
PROVIDERS: PCP Family Medicine; Referring Provider Family Medicine; Visit Provider Family Medicine
DX: Z00.00 Encounter for general adult medical examination without abnormal findings (principal); R73.02 Impaired glucose tolerance (oral); J44.9 Chronic obstructive pulmonary disease, unspecified; E78.00 Pure hypercholesterolemia, unspecified; I10 Essential (primary) hypertension; I25.10 Atherosclerotic heart disease of native coronary artery without angina pectoris; I48.0 Paroxysmal atrial fibrillation; Z79.01 Long term (current) use of anticoagulants; Z87.19 Personal history of other diseases of the digestive system
CPT/HCPCS: 36415; 36416; 80053; 80061; 81002; 83036; 85025; 85610

== ENCOUNTER 2018-08-18 12:44 | Emergency (ER) | payer MEDICARE, OTHER, SELFPAY ==
[2018-08-09 13:21] VITALS: BMI 29.3
[2018-08-18 12:50] VITALS: BP 140/106; PULSE 88; RESP 19; TEMP 36.7; O2SAT 97; BMI 30.9
[2018-08-18 12:53] VITALS: BP 112/82; PULSE 60; RESP 25; O2SAT 98
[2018-08-18 13:00] VITALS: O2SAT 96
--- NOTE | 2018-08-18 13:06 | EKG12_ITS ---
Test Reason : ABD PAIN SOB Blood Pressure : / mmHG Vent. Rate : 062 BPM Atrial Rate : 062 BPM P-R Int : 140 ms QRS Dur : 082 ms QT Int : 412 ms P-R-T Axes : 051 045 082 degrees QTc Int : 418 ms Suspect unspecified pacemaker failure Normal sinus rhythm Nonspecific ST and T wave abnormality Abnormal ECG Confirmed by STEVE MARIN, RADHA ([id number]), book or script editor TAMY COLMENARES ([id number]) on 08/22/2018 9:23:56 AM Referred By: INDU Confirmed By:RADHA WILSON MD
--- NOTE | 2018-08-18 13:06 | CT_ITS ---
STUDY: CT ABDOMEN AND PELVIS WITHOUT CONTRAST REASON FOR EXAM: Female, 68 years old. Headaches. Nausea. History of GI bleed. RADIATION DOSAGE (If Supplied By Facility): CTDIvol = ( 14.27 ) mGy, DLP = ( 677.29 ) mGycm TECHNIQUE: Transaxial images were obtained from the dome of the diaphragm to the symphysis pubis without oral contrast, and without intravenous contrast. Sagittal and coronal images were reconstructed. Individualized dose optimization techniques were used for this CT. COMPARISON: Comparison is made with prior study dated March 01, 2017. FINDINGS: The visualized lung bases are unremarkable. A dual-chamber pacemaker is seen. Normal liver. There are surgical clips in the gallbladder fossa consistent with a prior cholecystectomy. Normal spleen. Normal pancreas. There is a small, circumscribed, smooth, low attenuation left adrenal mass, consistent with an adrenal adenoma. This measures 1.3 cm. Normal right adrenal gland. Normal right kidney. Normal left kidney. Renal vascular calcifications are seen. Normal visualized stomach. Normal small intestine. There are scattered colonic diverticula consistent with diverticulosis. The appendix is visualized and appears normal. There is diffuse atherosclerotic calcification of the abdominal aorta and its major visceral branches, without a demonstrated aneurysm. Normal inferior vena cava. Normal retroperitoneum. Normal urinary bladder. There is absence of the uterus consistent with a prior hysterectomy. There is a right-sided inguinal hernia containing adipose tissue. There are degenerative changes of the visualized lumbar spine. Grade 1 anterior listhesis of L5 on S1 with spondylolysis of the pars intraarticularis of the L5 vertebrae. CT/Abdomen/Pelvis without Cont IMPRESSION: 1.3 cm adenoma in the left adrenal gland. Scattered sigmoid diverticula. Electronically Signed: Lane Marcus, at 14:07 EDT , Service support ,
--- NOTE | 2018-08-18 13:07 | ED.VIS.GEN ---
History of Present Illness Chief Complaint: Abd Pain Informant: Patient Onset: Weeks - 6 Narrative: Patient here with multiple complaints. Initial symptoms 6 weeks ago with headache symptoms. Waxing and waning. No falls or head injuries. 4 weeks ago reports nausea symptoms with lower abdominal pain. No urinary symptoms. Saw her PCP 4 weeks ago, placed on Carafate daily. Reports was admitted in May for an upper GI bleed she is on warfarin. Denies any rectal bleeding. Stop NSAID use. Subjective fevers. Reports intermittent diarrhea. No recent antibiotics. Last week reports mild cough worsening over last 24 hours. History of COPD and emphysema, remote tobacco. No dyspnea or wheezing. No chest pains. [facility] PCP today, however he was not in the office. History of cholecystectomy and hysterectomy. Prior similar symptoms: No Past Medical History - Allergies and Home Meds Allergies/Adverse Reactions: Allergies atorvastatin calcium [From Lipitor] Allergy (Verified 08/18/18 12:52) Hives gluten Allergy (Verified 08/18/18 12:52) Food Allergy metoprolol succinate [From Toprol XL] Allergy (Verified 08/18/18 12:52) Rash niacin [From Niaspan Extended-Release] Allergy (Verified 08/18/18 12:52) Rash Penicillins Allergy (Verified 08/18/18 12:52) Rash Sulfa (Sulfonamide Antibiotics) Allergy (Verified 08/18/18 12:52) Itching radionuclide Allergy (Uncoded 08/18/18 12:52) It almost killed me stress test radionuclide Primary Care Physician: Ruslan Kang MD [Primary Care Provider] - Surgical History: coronary bypass surgery, - - Left carotid endarterectomy, PCI, Hysterectomy, Cholecystectomy, CABG, BL LE stents. Smoking Status: Former smoker - Family History Maternal Family History: Family History (Last Reviewed 05/16/18 @ 07:02 by Ron Franco MD) Mother CVA (cerebral vascular accident) CAD (coronary artery disease) Family History: Reports: No pertinent history Paternal Family History: Family History (Last Reviewed 05/16/18 @ 07:02 by Ron Franco MD) Mother CVA (cerebral vascular accident) CAD (coronary artery disease) Family History: Reports: No pertinent history Review of Systems General: Reports: Fever. Denies: Chills, Sweats Eyes: Denies: Visual changes - bilaterally, Diplopia ENT: Denies: Rhinorrhea, Sore throat Cardiovascular: Denies: Chest pain, Palpitations Respiratory: Reports: Cough, Sputum - Fever.. Denies: Dyspnea, Dyspnea on exertion Gastrointestinal: Reports: Abdominal pain, Nausea. Denies: Vomiting, Diarrhea, Melena, Hematochezia Genitourinary: Denies: Dysuria, Hematuria, Frequency Musculoskeletal: Denies: Back pain, Extremity Pain Skin: Denies: Rash, Wounds Neurological: Reports: Headache - Headache. Denies: Weakness, Numbness Physical Exam Vital Signs/Narrative: Vital Signs Temp Pulse Resp BP Pulse Ox 08/18/18 12:53 60 25 H 112/82 H 98 08/18/18 12:50 98.0 F 88 19 H 140/106 H 97 Inital Vital Signs reviewed: Yes General: Well nourished, Well developed, No Acute Distress Head: Normocephalic, Atraumatic Eyes: Perrl, EOMI ENT: No rhinorrhea, Dry mucous membranes Neck: Supple, Nontender Cardiovascular: Regular rate, Regular rhythm, No murmurs Respiratory: No distress, CTA bilaterally, Chest nontender Abdomen: Soft, Nondistended, Normal bowel sounds, - - Mild tenderness left lower quadrant and suprapubic without guarding or rebound. Back: Nontender, Normal Inspection Extremities: Nontender, No edema Skin: Normal color, No rash Neurological: Alert, Oriented x3, Cranial nerves II-XII grossly intact, Normal Strength, Normal Sensation Psychological: Normal affect, Normal Mood Diagnostic/Tx/Re-eval Chest X-Ray - ED: 2 View, Read by ED Physician, Read by Radiologist, Chronic Changes Abnormal Lab Results 08/18/18 08/18/18 08/18/18 13:00 13:00 13:00 WBC 8.6 RBC 4.63 Hgb 13.2 Hct 41.7 MCV 90.1 MCH 28.5 MCHC 31.7 L RDW 14.0 RDW Differential 45.9 H Plt Count 242 MPV 11.8 PT 42.9 H INR 4.5 H* Sodium 137 Potassium 3.8 Chloride 106 Carbon Dioxide 23.0 Anion Gap 8 BUN 12 Creatinine 1.32 H Estim Creat Clear Calc 35.22 Est GFR (MDRD) Af Amer 51 L Est GFR (MDRD) Non-Af 43 L BUN/Creatinine Ratio 9.1 L Glucose 182 H Calcium 8.9 Total Bilirubin 0.40 AST 14 L ALT 19 Alkaline Phosphatase 81 Troponin I < 0.015 Total Protein 7.4 Albumin 3.5 Globulin 3.9 Albumin/Globulin Ratio 0.[address] abdomen and pelvis: Scattered diverticula, 1.3 cm left adrenal adenoma - EKG Initial EKG Interpretation: Sinus Rhythm - Sinus rate of 62, no ST changes. There is T wave inversions in V1 V2 and aVL, is new when compared to EKG May 18, 2018. - Medical Decision Making Patient with multiple complaints. Her vital signs are stable. Nonsurgical abdomen. No focal neurological deficits. IV was placed given fluids for dry mucosa membranes. Creatinine 1.32, similar to 9 days ago however is normal prior to that. She is given IV fluids. Abdominal labs were normal. Due to diarrhea and slight left lower quadrant pain CT scan was obtained shows no signs of diverticulitis. Did note a 1.3 cm left adenoma. With her cough, chest x-ray obtained shows no acute process. She is in no respiratory distress with no wheezing. Initially treated with morphine Zofran, symptoms improved. INR level returned supratherapeutic at 4.5. She has no bleeding complaints. 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 With her COPD and cough with symptoms, discussed treatment for her COPD under Gold's criteria. Zithromax was started. She will need her INR monitored. Signs and symptoms discussed return. She is tolerating oral intake with her oral pills in the ED. Should continue oral hydration at home. EKG obtained per nursing protocol, noted T wave inversions that were new. She denied chest pains. Troponin was obtained which was negative. All questions were answered. ED Disposition - Plan for ED Patient: Disposition: Home or Assisted Living Diagnosis: Nausea vomiting and diarrhea, Nonspecific abdominal pain, COPD (chronic obstructive pulmonary disease), Cephalgia, Adrenal adenoma Instructions: ED Abdominal Pain Unkn Cause, ED Diet Vomiting Diarrhea, Chronic Lung Disease: Preventing Lung Infections Prescriptions: Ondansetron [Zofran Odt] 4 mg PO Q8H PRN PRN #10 tablet PRN Reason: Nausea Azithromycin [Zithromax] 250 mg PO DAILY #4 tablet Referrals: Ruslan Kang MD [Primary Care Provider] - 5-7 Days Additional Instructions: INR 4.5. Hold your warfarin. Keep your appointment Dr. Emery today. Take your antibiotic as prescribed for your COPD. Will need your INR monitored. CT scan notes incidental adrenal adenoma of 1.3 cm on the left. Follow-up with your PCP.
[2018-08-18 13:19] LABS: Prothrombin Time (Protime)PT. 42.9 SECONDS (11.7-14.9)
[2018-08-18] MEDS: Morphine 4 MG/ML Syringe IV (13:20)
[2018-08-18] MEDS: 0.9% Normal Saline 1,000 ML 150 ML IV (13:20)
[2018-08-18] MEDS: Ondansetron 4 MG/2 ML Vial IV (13:20)
[2018-08-18 13:21] LABS: Hematocrit 41.7 % (37-47); Hemoglobin 13.2 g/dl (12.0-15.0); Mean Corp Hgb Conc 31.7 g/gl (32-36); Mean Corpuscular Hgb 28.5 pg (27.0-32.0); Mean Corpuscular Volume 90.1 fL (81-99); Mean Platelet Vol. 11.8 fl (6.2-12.0); Platelet Count 242 K/mm3 (150-450); RBC Distribution Width SD 45.9 fl (35.1-43.9); Red Blood Count 4.63 M/mm3 (4.2-5.4); White Blood Count 8.6 K/mm3 (4.4-11.0)
[2018-08-18 13:25] LABS: Scan Indicated on CBC? Y/N NO
[2018-08-18 13:30] LABS: International Normalized Ratio 4.5
--- NOTE | 2018-08-18 13:30 | RAD_ITS ---
STUDY: X-RAY CHEST REASON FOR EXAM: Female, 68 years old. Cough. Nausea. TECHNIQUE: PA and lateral views of the chest. COMPARISON: Comparison is made with prior examination dated May 15, 2018. FINDINGS: EKG electrodes are seen. Hyperinflation. Mild increased markings in the lingular segment of the left upper lobe suggestive of mild scarring. There is no demonstrated pleural abnormality. Sternal cerclage wires and vascular clips are present from a prior sternotomy and coronary artery bypass graft procedure (CABG). A left-sided dual-chamber pacemaker is seen. Normal mediastinum and preeti. Normal visualized pulmonary arteries. There is atherosclerotic calcification of the aortic arch with tortuosity. There are diffuse degenerative changes of the visualized thoracic spine. Normal visualized ribs, clavicles, and shoulders. There is no demonstrated abnormality of the visualized soft tissue structures of the upper abdomen. RAD/Chest PA and Lateral IMPRESSION: Hyperinflation. Stable mild increased markings in the lingular segment of the left upper lobe apical in keeping with scarring. Electronically Signed: Lane Marcus, at 14:08 EDT , Service support ,
[2018-08-18 13:32] LABS: ALB/GLOB Ratio 0.9 RATIO (0.9-2.4); AST(SGOT) 14 U/L (15-37); Alanine Aminotransfer ALT/SGPT 19 U/L (13-56); Albumin, Serum 3.5 g/dL (3.2-5.0); Alkaline Phosphatase 81 U/L (45-117); Anion Gap 8 (5-15); BUN 12 mg/dL (7-18); BUN/Creat Ratio 9.1 RATIO (10-20); Calcium,Total 8.9 mg/dL (8.5-10.1); Chloride 106 mmol/L (98-107); Creatinine, Serum 1.32 mg/dL (0.55-1.02); EST Glomerular Filtration Rate 43 mL/min (>60); Est Glom Filt Rate - Afr Amer 51 mL/min (>60); Estimated Creatinine Clearance 35.22 ml/min; Globulin 3.9 g/dL (2.2-4.2); Glucose 182 mg/dL (74-106); Lipase 153 U/L (73-393); Potassium 3.8 mmol/L (3.5-5.1); Protein, Total 7.4 g/dL (6.4-8.2); Sodium Level 137 mmol/L (136-145)
[2018-08-18] MEDS: Azithromycin 250 MG Tablet 500 MG PO (15:09)
[2018-08-18 15:13] VITALS: BP 102/65; PULSE 60; RESP 16; O2SAT 97
--- NOTE | 2018-08-18 15:13 | ED.RN ---
IV DC'ED, CATHETER INTACT, SMALL GAUZE DRESSING PLACED. DISCHARGE INSTRUCTIONS GIVEN TO AND REVIEWED WITH PATIENT, PATIENT DENIES QUESTIONS OR CONCERNS AND VOICES UNDERSTANDING OF DISCHARGE INSTRUCTIONS. PT AMBULATES OUT OF ROOM WITHOUT DIFFICULTY.
== END 2018-08-18 15:14 | disposition home or self-care (01) ==
PROVIDERS: Emergency Provider Emergency Medicine; PCP Family Medicine
DX: R10.32 Left lower quadrant pain (principal); R51 Headache; R11.2 Nausea with vomiting, unspecified; J44.9 Chronic obstructive pulmonary disease, unspecified; D35.00 Benign neoplasm of unspecified adrenal gland; Z87.891 Personal history of nicotine dependence
CPT/HCPCS: 71046; 74176; 80053; 83690; 84484; 85027; 85610; 93005; 96361; 96374; 96375; 99285; J7030; A4216; J2405

== ENCOUNTER 2018-08-25 12:27 | Outpatient (RCR) | payer MEDICARE, OTHER, SELFPAY ==
[2018-06-02 13:44] VITALS: BMI 29.0
[2018-08-18 15:38] VITALS: BMI 29.8
[2018-08-25 12:51] LABS: Prothrombin Time Fingerstick 19.3 SEC (11.9-14.4)
== END 2018-08-25 13:00 | disposition home or self-care (01) ==
LOC: LAB 12:27
PROVIDERS: PCP Family Medicine; Referring Provider Internal Medicine Cardiovascular Disease; Visit Provider Internal Medicine Cardiovascular Disease
DX: I48.0 Paroxysmal atrial fibrillation (principal); Z79.01 Long term (current) use of anticoagulants
CPT/HCPCS: 36416; 85610

== ENCOUNTER 2018-09-29 14:31 | Outpatient (RCR) | payer MEDICARE, OTHER, SELFPAY ==
[2018-08-18 15:38] VITALS: BMI 29.8
[2018-09-08 13:11] LABS: Prothrombin Time Fingerstick 42.9 SEC (11.9-14.4)
[2018-09-08 14:17] LABS: Prothrombin Time (Protime)PT. 31.6 SECONDS (11.7-14.9)
[2018-09-15 14:56] LABS: Prothrombin Time Fingerstick 38.3 SEC (11.9-14.4)
== END 2018-10-04 06:29 | disposition home or self-care (01) ==
LOC: LAB 14:31
PROVIDERS: PCP Family Medicine; Referring Provider Internal Medicine Cardiovascular Disease; Visit Provider Internal Medicine Cardiovascular Disease
DX: I48.0 Paroxysmal atrial fibrillation (principal); Z79.01 Long term (current) use of anticoagulants
CPT/HCPCS: 36416; 85610

== ENCOUNTER → 2018-10-24 | Outpatient (CLI) | payer MEDICARE, OTHER, SELFPAY ==
[2018-08-18 15:38] VITALS: BMI 29.8
[2018-10-24 13:49] LABS: Absolute Lymphocyte Count 2.09 X10^3/uL (0.83-4.51); Absolute Neutrophil Count 6.2 X10^3/uL (2.0-7.7); Basophil# 0.04 X10^3/uL; Basophil% 0.4 % (0-1); Eosinophil# 0.31 X10^3/uL; Eosinophils% 3.2 % (0-5); Hematocrit 41.4 % (37-47); Hemoglobin 12.9 g/dL (12.0-15.0); Lymphocyte # 2.09 X10^3/ul (4.0); Lymphocyte % 21.9 % (19-41); Mean Corp Hgb Conc 31.2 g/dL (32-36); Mean Corpuscular Hgb 28.5 pg (27.0-32.0); Mean Corpuscular Volume 91.6 fL (81-99); Mean Platelet Vol. 12.7 fl (6.2-12.0); Monocyte# 0.88 X10^3/uL; Monocyte% 9.2 % (0-10); NRBC Flagged by Analyzer 0 % (0-5); Neutrophil # 6.19 X10^3/uL (2.7-7.7); Platelet Count 249 K/mm3 (150-450); RBC Distribution Width CV 14.5 % (11.6-14.6); RBC Distribution Width SD 48.5 fl (35.1-43.9); Red Blood Count 4.52 M/mm3 (4.2-5.4); White Blood Count 9.5 K/mm3 (4.4-11.0)
[2018-10-24 14:10] LABS: Hemoglobin A1c 6.1 % (4.2-6.3)
[2018-10-24 14:23] LABS: ALB/GLOB Ratio 0.8 RATIO (0.9-2.4); AST(SGOT) 16 U/L (15-37); Alanine Aminotransfer ALT/SGPT 22 U/L (13-56); Albumin, Serum 3.3 g/dL (3.2-5.0); Alkaline Phosphatase 89 U/L (45-117); Anion Gap 9 (5-15); BUN 14 mg/dL (7-18); BUN/Creat Ratio 10.9 RATIO (10-20); CPK Total, Creatine Kinase 41 U/L (26-192); Calcium,Total 8.5 mg/dL (8.5-10.1); Chloride 106 mmol/L (98-107); Cholesterol 205 mg/dL (200); Creatinine, Serum 1.29 mg/dL (0.55-1.02); EST Glomerular Filtration Rate 44 mL/min (>60); Est Glom Filt Rate - Afr Amer 53 mL/min (>60); Ferritin 28 ng/mL (8-252); Globulin 3.9 g/dL (2.2-4.2); Glucose 112 mg/dL (74-106); High Density Lipoprotein 46 mg/dL; Iron 76 ug/dL (50-170); Iron Binding Capacity,Total 303 ug/dL (250-450); Magnesium 2.1 mg/dL (1.6-2.6); Potassium 3.8 mmol/L (3.5-5.1); Protein, Total 7.2 g/dL (6.4-8.2); Sodium Level 138 mmol/L (136-145); Thyroid Stim Hormone (TSH) 2.07 uIU/mL (0.358-3.74); Triglycerides 200 mg/dL; Very Low Density Lipoprotein 40 mg/dL (5-40)
== END | disposition home or self-care (01) ==
LOC: MFPLAB 12:10
PROVIDERS: Family Provider Family Medicine; PCP Family Medicine; Referring Provider Family Medicine; Visit Provider Family Medicine
DX: I48.91 Unspecified atrial fibrillation (principal); I25.10 Atherosclerotic heart disease of native coronary artery without angina pectoris; Z86.39 Personal history of other endocrine, nutritional and metabolic disease; R25.2 Cramp and spasm; R73.02 Impaired glucose tolerance (oral)
CPT/HCPCS: 36415; 80053; 80061; 82550; 82728; 83036; 83540; 83550; 83735; 84443; 85025

== ENCOUNTER 2018-10-27 14:38 | Outpatient (RCR) | payer MEDICARE, OTHER, SELFPAY ==
[2018-08-18 15:38] VITALS: BMI 29.8
[2018-10-06 16:43] LABS: Prothrombin Time Fingerstick 27.1 SEC (11.9-14.4)
[2018-10-20 13:22] LABS: Prothrombin Time Fingerstick 36.3 SEC (11.9-14.4)
[2018-10-27 17:44] LABS: Prothrombin Time Fingerstick 31.9 SEC (11.9-14.4)
== END 2018-10-27 15:38 | disposition home or self-care (01) ==
LOC: MTLAB 14:38
PROVIDERS: PCP Family Medicine; Referring Provider Internal Medicine Cardiovascular Disease; Visit Provider Internal Medicine Cardiovascular Disease
DX: I48.0 Paroxysmal atrial fibrillation (principal); Z79.01 Long term (current) use of anticoagulants
CPT/HCPCS: 36416; 85610

== ENCOUNTER → 2018-11-02 | Outpatient (CLI) | payer MEDICARE, OTHER, SELFPAY ==
[2018-08-18 15:38] VITALS: BMI 29.8
[2018-11-02 10:44] LABS: Anion Gap 10 (5-15); BUN 15 mg/dL (7-18); BUN/Creat Ratio 11.5 RATIO (10-20); Calcium,Total 8.4 mg/dL (8.5-10.1); Chloride 107 mmol/L (98-107); Creatinine, Serum 1.31 mg/dL (0.55-1.02); EST Glomerular Filtration Rate 43 mL/min (>60); Est Glom Filt Rate - Afr Amer 52 mL/min (>60); Glucose 128 mg/dL (74-106); Potassium 3.9 mmol/L (3.5-5.1); Sodium Level 139 mmol/L (136-145)
== END | disposition home or self-care (01) ==
LOC: MFPLAB 09:15
PROVIDERS: Family Provider Family Medicine; PCP Family Medicine; Referring Provider Family Medicine; Visit Provider Family Medicine
DX: I10 Essential (primary) hypertension (principal)
CPT/HCPCS: 36415; 80048

== ENCOUNTER → 2018-11-24 | Outpatient (CLI) | payer MEDICARE, OTHER, SELFPAY ==
[2018-08-18 15:38] VITALS: BMI 29.8
[2018-11-24 11:10] LABS: Anion Gap 7 (5-15); BUN 14 mg/dL (7-18); BUN/Creat Ratio 12.5 RATIO (10-20); Calcium,Total 8.6 mg/dL (8.5-10.1); Chloride 107 mmol/L (98-107); Creatinine, Serum 1.12 mg/dL (0.55-1.02); EST Glomerular Filtration Rate 51 mL/min (>60); Est Glom Filt Rate - Afr Amer 62 mL/min (>60); Glucose 132 mg/dL (74-106); Potassium 3.8 mmol/L (3.5-5.1); Sodium Level 138 mmol/L (136-145)
== END | disposition home or self-care (01) ==
LOC: MFPLAB 09:03
PROVIDERS: Family Provider Family Medicine; PCP Family Medicine; Referring Provider Family Medicine; Visit Provider Family Medicine
DX: R94.4 Abnormal results of kidney function studies (principal)
CPT/HCPCS: 36415; 80048

== ENCOUNTER 2018-11-29 16:22 | Outpatient (RCR) | payer MEDICARE, OTHER, SELFPAY ==
[2018-08-18 15:38] VITALS: BMI 29.8
[2018-11-17 17:56] LABS: AST(SGOT) 14 U/L (15-37); Alanine Aminotransfer ALT/SGPT 24 U/L (13-56); Albumin, Serum 3.3 g/dL (3.2-5.0); Alkaline Phosphatase 87 U/L (45-117); Cholesterol 194 mg/dL (200); Globulin 3.7 g/dL (2.2-4.2); High Density Lipoprotein 42 mg/dL; Triglycerides 238 mg/dL; Very Low Density Lipoprotein 48 mg/dL (5-40)
[2018-11-18 08:34] LABS: Prothrombin Time Fingerstick 21.9 SEC (11.9-14.4)
[2018-11-29 17:07] LABS: Prothrombin Time Fingerstick 26.3 SEC (11.9-14.4)
== END 2018-11-29 18:00 | disposition home or self-care (01) ==
LOC: MTLAB 16:22
PROVIDERS: Physician Assistant Medical; Family Provider Family Medicine; PCP Family Medicine; Referring Provider Internal Medicine Cardiovascular Disease; Visit Provider Internal Medicine Cardiovascular Disease
DX: E78.5 Hyperlipidemia, unspecified (principal); I48.0 Paroxysmal atrial fibrillation; Z79.01 Long term (current) use of anticoagulants
CPT/HCPCS: 36415; 36416; 80061; 80076; 85610

== ENCOUNTER → 2018-11-29 | Outpatient (CLI) | payer MEDICARE, OTHER, SELFPAY ==
[2018-08-18 15:38] VITALS: BMI 29.8
--- NOTE | 2018-11-29 16:07 | CT_ITS ---
STUDY: LOW DOSE CT LUNG CANCER SCREENING REASON FOR EXAM: Female, 68 years old. 100 pack-year history quit 5 years ago. RADIATION DOSAGE (If Supplied By Facility): CTDIvol = ( 3.02 ) mGy, DLP = ( 97.42 ) mGycm TECHNIQUE: No contrast was administered. Low dose technique was utilized (average mAS-38 and kVp 120). 1.25 mm axial source images with a slice interval of 1.25-mm were reconstructed in lung windows. 2.5 mm axial source images with a slice interval of 2.5-mm were reconstructed in lung windows. 5.0 mm axial source images with a slice interval of 5.0-mm were reconstructed in soft tissue windows. Nodule measured using lung windows on PACS and/or independent workstation with automated measurement of minimum and maximum diameter. Nodule measurement reported as average diameter rounded to the nearest whole number. Growth is defined as an increase ins size of greater than 1.5 mm. COMPARISON: Chest, August 18, 2018. CT of the chest, January 29, 2016. NODULES: Nodule #: 1 Density: Solid Lung location: Left lower lobe: 1.8 cm from pleura Location in series: Series Number: Image: Size - D1 x D2 mm: 5 x 3 mm: 4 mm average diameter Margin: Irregular Shape: Oval Calcification: No Fat: No Temporal comparison: Stable Total lung nodules (excluding granulomas): 1 Emphysema: There is diffuse emphysematous changes throughout the lungs with linear scarring in the right lung apex. Endobronchial lesion: None Aorta: Atherosclerotic changes of the aorta without aneurysm. Coronary arteries: Status post CABG procedure. Heart: Normal in size pacer leads are seen in the right heart. Pulmonary artery: Normal Mediastinal nodes: There are stable small mediastinal lymph nodes. Other chest and abdominal findings: Degenerative changes of the thoracic spine. Evidence of median sternotomy. CT/Low Dose CT Lung Screening IMPRESSION: 1. No acute abnormality or interval change when compared to January 29, 2016. Lung-RADS category 2 - Continue annual screening with LDCT in 12 months. IMPORTANT NOTES FOR USE: ACR Lung-RADS Version 1.0 Assessment Categories Release Date: July 02, 2013 Category: Coded 0-4 bases on nodule(s) with highest degree of suspicion. Negative screen is defined as categories 1 and 2; a positive screen is defined as categories 3 and 4. Category 3 and 4A nodules that are unchanged on interval CT should be coded as category 2, and individuals returned to screening in 12 months. Category 4X: Category 3 or 4 nodules with additional imaging findings that increase the suspicion of lung cancer, such as spiculation, GGN that doubles in size in 1 year, enlarged lymph notes, etc. Category Modifiers: S (significant finding unrelated to lung cancer) and C (prior history of treated lung cancer) may be added to the 0-4 Lung-RADS Electronically Signed: Mark Velez DO at 19:21 EDT Tel [phone], Service support ,
== END | disposition home or self-care (01) ==
LOC: CT 16:05
PROVIDERS: Family Provider Family Medicine; PCP Family Medicine; Referring Provider Family Medicine; Visit Provider Family Medicine
DX: Z87.891 Personal history of nicotine dependence (principal); Z12.2 Encounter for screening for malignant neoplasm of respiratory organs; I48.0 Paroxysmal atrial fibrillation; Z79.01 Long term (current) use of anticoagulants
CPT/HCPCS: 36416; 85610; G0297

== ENCOUNTER → 2018-12-06 | Outpatient (CLI) | payer MEDICARE, OTHER, SELFPAY ==
[2018-08-18 15:38] VITALS: BMI 29.8
--- NOTE | 2018-12-06 11:46 | RAD_ITS ---
STUDY: X-RAY - SACROILIAC JOINTS REASON FOR EXAM: Female, 68 years old. Chronic back pain. TECHNIQUE: 3 view(s) of the sacroiliac joints were obtained. COMPARISON: CT abdomen and pelvis August 18, 2018. FINDINGS: There are degenerative changes of the visualized mid to lower lumbar spine. Mild degenerative arthrosis with narrowing and sclerosis also seen at the pubic symphysis. Normal bilateral sacroiliac joints. Normal visualized sacral ala and sacrum. There is no demonstrated osseous destructive process or acute fracture. Normal visualized iliac bones. There are atherosclerotic vascular calcifications. RAD/S-I Jts 3 or More Views IMPRESSION: 1. Normal x-ray examination of the bilateral sacroiliac joints. 2. Degenerative changes of the visualized lower lumbar spine and pubic symphysis. 3. Atherosclerotic vascular calcifications present. Electronically Signed: Roman Islas MD at 19:22 EDT , Service support ,
--- NOTE | 2018-12-06 11:46 | RAD_ITS ---
STUDY: X-RAY - LEFT KNEE REASON FOR EXAM: Female, 68 years old. Chronic knee pain. TECHNIQUE: 4 view(s) of the knee, 3 labeled as upright. COMPARISON: None. FINDINGS: Normal visualized distal femur. Normal visualized proximal tibia and fibula. Normal patella. There is no demonstrated destructive osseous lesion or acute fracture. Normal medial femorotibial compartment. Normal lateral femorotibial compartment. Normal patellofemoral articulation. There is no demonstrated joint effusion. A single metal surgical clip projects in the medial soft tissues of the distal thigh. RAD/Knee 4 or More Views IMPRESSION: Unremarkable x-ray examination of the left knee. Electronically Signed: Roman Islas MD at 19:33 EDT , Service support ,
--- NOTE | 2018-12-06 11:46 | RAD_ITS ---
STUDY: X-RAY - RIGHT KNEE REASON FOR EXAM: Female, 68 years old. Chronic knee pain. TECHNIQUE: 4 view(s) of the knee, 3 labeled as upright. COMPARISON: 4 views of the right knee November 19, 2014 FINDINGS: Normal visualized distal femur. Normal visualized proximal tibia and fibula. Normal patella. There is no demonstrated destructive osseous lesion or acute fracture. There is mild degenerative arthrosis of the medial femorotibial compartment. Normal lateral femorotibial compartment. There is narrowing of the lateral patellofemoral articulation. There is no demonstrated joint effusion. A pair of surgical clips again project in the medial right thigh. RAD/Knee 4 or More Views IMPRESSION: Degenerative narrowing in the medial femorotibial and lateral femoral patellar joint compartments. Electronically Signed: Roman Islas MD at 19:31 EDT , Service support ,
--- NOTE | 2018-12-06 11:46 | RAD_ITS ---
STUDY: X-RAY - LUMBAR SPINE REASON FOR EXAM: Female, 68 years old. Chronic back pain. TECHNIQUE: 5 view(s) of the lumbar spine were obtained. COMPARISON: CT abdomen and pelvis August 18, 2018 FINDINGS: Normal lumbar lordosis. There is no substantial scoliosis. There are chronic bilateral L5 pars defects and a stable grade 1-2 spondylolisthesis of L5 on S1. There is stable multilevel endplate spondylosis of the lumbar vertebrae, as well as prominent at L2-3. There is stable subcortical sclerosis of the L2-3 and superior L4 vertebral endplates. Well-corticated focal invaginations of the inferior T12 and opposing L1-2 vertebral endplates are consistent with benign Schmorl's nodes. There is multi-level degenerative disc disease with multi-level disc space narrowing, severe at L2-3 and L5-S1. There is no demonstrated osseous destructive lesion or acute fracture. There is stable degenerative arthrosis of the right L4-5, left L3-4, and bilateral L5-S1 facet joints. There is stable atherosclerotic calcification of the abdominal aorta and proximal iliac arteries without a demonstrated aneurysm. [place] radiodensity projecting in the medial right flank is likely a swallowed tablet in the bowel. Surgical clips of prior cholecystectomy project in the right upper quadrant. RAD/L/S Spine Min 4 Views IMPRESSION: 1. Stable multilevel degenerative changes of the spine, as detailed above. 2. Chronic bilateral L5 pars defects and stable grade 1-2 spondylolisthesis of L5 on S1. 3. Aortoiliac and prescribed vascular calcifications again noted. Electronically Signed: Roman Islas MD at 19:29 EDT , Service support ,
--- NOTE | 2018-12-06 11:46 | RAD_ITS ---
STUDY: X-RAY - PELVIS AND BILATERAL HIPS REASON FOR EXAM: Female, 68 years old. Bilateral hip pain. TECHNIQUE: AP view of the pelvis.? 2 views of the right hip, and 2 views of the left hip were obtained. COMPARISON: None. FINDINGS: There is a non-specific bowel gas pattern. There are atherosclerotic vascular calcifications of the pelvic arteries. Degenerative changes are seen in the lower lumbar spine. Normal bilateral iliac wings, sacroiliac joints and visualized sacrum. Normal bilateral superior and inferior pubic rami. There are mild degenerative changes of the pubic symphysis with articular narrowing and early sclerosis. Normal bilateral ischial tuberosities. There is no demonstrated osseous destructive lesion or acute fracture. Normal visualized right femoral head. Normal right acetabulum. Normal right hip joint. Normal visualized left femoral head. Normal left acetabulum. Normal left hip joint. RAD/Hips B/L min 2 views w/ Pelvis IMPRESSION: 1. Degenerative arthrosis at the pubic symphysis, otherwise normal x-ray examination of the pelvis and bilateral hips. 2. There are additional degenerative changes in the lower lumbar spine. 3. Atherosclerotic vascular calcifications present. Electronically Signed: Roman Islas MD at 19:43 EDT , Service support ,
== END | disposition home or self-care (01) ==
LOC: MTRAD 11:44
PROVIDERS: Family Provider Family Medicine; PCP Family Medicine; Referring Provider Family Medicine; Visit Provider Family Medicine
DX: M54.5 Low back pain (principal); M25.551 Pain in right hip; M25.552 Pain in left hip; G89.29 Other chronic pain
CPT/HCPCS: 72110; 72202; 73521; 73564

== ENCOUNTER 2018-12-22 14:27 | Outpatient (RCR) | payer MEDICARE, OTHER, SELFPAY ==
[2018-08-18 15:38] VITALS: BMI 29.8
[2018-12-22 15:56] LABS: Prothrombin Time Fingerstick 20.7 SEC (11.9-14.4)
== END 2018-12-22 18:00 | disposition home or self-care (01) ==
LOC: MTLAB 14:27
PROVIDERS: Family Provider Family Medicine; PCP Family Medicine; Referring Provider Internal Medicine Cardiovascular Disease; Visit Provider Internal Medicine Cardiovascular Disease
DX: I48.0 Paroxysmal atrial fibrillation (principal); Z79.01 Long term (current) use of anticoagulants
CPT/HCPCS: 36416; 85610

== ENCOUNTER → 2019-01-31 12:41 | Outpatient (CLI) | payer MEDICARE, OTHER, MEDICAID, SELFPAY ==
[2018-08-18 15:38] VITALS: BMI 29.8
--- NOTE | 2019-01-31 13:00 | RAD_ITS ---
STUDY: X-RAY - LUMBAR SPINE REASON FOR EXAM: Female, 68 years old. TECHNIQUE: view(s) of the lumbar spine were obtained. COMPARISON: None FINDINGS: Vertebral bodies are of normal height. There is narrowing of the intervertebral disc space between L2-3 and to a less extent L3-4. The disc space at L4-5 is maintained. There is a first-degree spondylolisthesis of L5 on S1 with marked narrowing of the intervertebral disc space in between associated with vacuum phenomenon. No pars articularis identified. There is calcification of the abdominal aorta. RAD/Lumbar Spine 2 or 3 Views IMPRESSION: Degenerative disc disease at L2-3 and to less extent at L4-5. Severe disc degenerative disc with vacuum phenomenon and slippage of L4 on L5. Electronically Signed: Sidney Grossman, at 16:16 EST Tel , Service support ,
== END ==
PROVIDERS: Family Provider Family Medicine; PCP Family Medicine; Referring Provider Anesthesiology Pain Medicine; Visit Provider Anesthesiology Pain Medicine
DX: M54.5 Low back pain (principal); I48.0 Paroxysmal atrial fibrillation; Z79.01 Long term (current) use of anticoagulants
CPT/HCPCS: 36416; 72100; 85610

== ENCOUNTER 2019-01-31 13:12 | Outpatient (RCR) | payer MEDICARE, OTHER, SELFPAY ==
[2018-08-18 15:38] VITALS: BMI 29.8
[2019-01-12 13:41] LABS: Prothrombin Time Fingerstick 32.1 SEC (11.9-14.4)
[2019-01-31 13:26] LABS: Prothrombin Time Fingerstick 39.1 SEC (11.9-14.4)
== END 2019-01-31 18:00 | disposition home or self-care (01) ==
LOC: LAB 13:12
PROVIDERS: Family Provider Family Medicine; PCP Family Medicine; Referring Provider Internal Medicine Cardiovascular Disease; Visit Provider Internal Medicine Cardiovascular Disease
DX: I48.0 Paroxysmal atrial fibrillation (principal); Z79.01 Long term (current) use of anticoagulants
CPT/HCPCS: 36416; 85610

== ENCOUNTER → 2019-03-13 10:59 | Outpatient (CLI) | payer MEDICARE, OTHER, MEDICAID, SELFPAY ==
[2019-02-22 10:40] VITALS: BMI 32.1
[2019-03-13 12:24] LABS: Absolute Lymphocyte Count 1.66 X10^3/uL (0.83-4.51); Absolute Neutrophil Count 4.7 X10^3/uL (2.0-7.7); Basophil# 0.03 X10^3/uL; Basophil% 0.4 % (0-1); Eosinophil# 0.31 X10^3/uL; Eosinophils% 4.2 % (0-5); Hematocrit 39.3 % (37-47); Hemoglobin 12.1 g/dL (12.0-15.0); Lymphocyte # 1.66 X10^3/ul (4.0); Lymphocyte % 22.5 % (19-41); Mean Corp Hgb Conc 30.8 g/dL (32-36); Mean Corpuscular Hgb 27.3 pg (27.0-32.0); Mean Corpuscular Volume 88.5 fL (81-99); Monocyte# 0.63 X10^3/uL; Monocyte% 8.5 % (0-10); NRBC Flagged by Analyzer 0 % (0-5); Neutrophil # 4.74 X10^3/uL (2.7-7.7); Neutrophil % 64.1 % (47-70); Platelet Count 240 K/mm3 (150-450); RBC Distribution Width CV 14.4 % (11.6-14.6); Red Blood Count 4.44 M/mm3 (4.2-5.4); White Blood Count 7.4 K/mm3 (4.4-11.0)
[2019-03-13 12:52] LABS: Hemoglobin A1c 6.1 % (4.2-6.3)
[2019-03-13 12:59] LABS: ALB/GLOB Ratio 0.9 RATIO (0.9-2.4); AST(SGOT) 18 U/L (15-37); Alanine Aminotransfer ALT/SGPT 23 U/L (13-56); Albumin, Serum 3.3 g/dL (3.2-5.0); Alkaline Phosphatase 77 U/L (45-117); Anion Gap 4 (5-15); BUN 14 mg/dL (7-18); BUN/Creat Ratio 10.9 RATIO (10-20); Calcium,Total 8.4 mg/dL (8.5-10.1); Chloride 107 mmol/L (98-107); Cholesterol 191 mg/dL (200); Creatinine, Serum 1.29 mg/dL (0.55-1.02); EST Glomerular Filtration Rate 44 mL/min (>60); Est Glom Filt Rate - Afr Amer 53 mL/min (>60); Globulin 3.7 g/dL (2.2-4.2); Glucose 120 mg/dL (74-106); High Density Lipoprotein 42 mg/dL; Potassium 3.9 mmol/L (3.5-5.1); Sodium Level 137 mmol/L (136-145); Triglycerides 145 mg/dL; Very Low Density Lipoprotein 29 mg/dL (5-40)
== END ==
PROVIDERS: Family Provider Family Medicine; PCP Family Medicine; Referring Provider Family Medicine; Visit Provider Family Medicine
DX: E78.5 Hyperlipidemia, unspecified (principal); I48.91 Unspecified atrial fibrillation; R73.02 Impaired glucose tolerance (oral)
CPT/HCPCS: 36415; 80053; 80061; 83036; 83735; 85025

== ENCOUNTER → 2019-03-15 12:52 | Outpatient (CLI) | payer MEDICARE, OTHER, MEDICAID, SELFPAY ==
[2019-02-22 10:40] VITALS: BMI 32.1
--- NOTE | 2019-03-15 12:57 | ART_ITS ---
Reason For Study: PVD Procedure A bilateral lower extremity continuous wave Doppler with analog waveform analysis and ankle brachial indexes. Left Segmental Pressures Left brachial= 118mmHg. Left posterior tibial artery = 117mmHg. Left dorsalis pedis artery = 106mmHg. The left dorsalis pedis waveforms are triphasic. The left posterior tibial artery waveforms are triphasic. Right Segmental Pressures Right brachial= 121mmHg. Right posterior tibial artery = 125mmHg. Right dorsalis pedis artery = 125mmHg. The right dorsalis pedis waveforms are triphasic. The right posterior tibial artery waveforms are triphasic. Indices The right ankle brachial index by the dorsalis pedis is 1.03. The right ankle brachial index by the posterior tibial artery is 1.03. The left ankle brachial index by the dorsalis pedis is .88. The left ankle brachial index by the posterior tibial artery is .97. Interpretation Summary 1. Bilateral normal at rest with triphasic flow and RANJAN 1,03 and 0.97. Ordering Physician: William Kraus Performed By: JOSH MENDOZA RVT
--- NOTE | 2019-03-15 12:58 | CDU_ITS ---
Rt. Velocities/BP Lt. Velocities/BP Prox CCA 65.6/9.5 cm/sec. Prox CCA 70.6/21.2 cm/sec. Mid CCA 46.0/13.4 cm/sec. Mid CCA 51.9/19.0 cm/sec. Dist CCA 38.2/13.4 cm/sec. Dist CCA 65.1/21.2 cm/sec. Prox ICA 62.9/22.3 cm/sec. Prox ICA 144.8/29.8 cm/sec. Mid ICA 60.8/17.9 cm/sec. Mid ICA 124.7/35.3 cm/sec. Dist ICA 59.7/22.3 cm/sec. Dist ICA 61.9/21.2 cm/sec. Rt. ICA/CCA = 1.3. Lt. ICA/CCA = 2.8. Prox ECA 177.7/17.0 cm/sec. Prox ECA 102.3/9.0 cm/sec. Rt. Vert. 54.2/16.8 cm/sec. Lt. Vert. 62.9/23.4 cm/sec. Right Extracranial There is homogeneous, smooth atherosclerotic plaque noted in the right common carotid artery. There is heterogeneous, irregular atherosclerotic plaque noted in the right internal carotid artery. There is heterogeneous, irregular atherosclerotic plaque noted in the right external carotid artery. Antegrade flow is noted in the right vertebral artery. Left Extracranial There is homogeneous, smooth atherosclerotic plaque noted in the left common carotid artery. There is heterogeneous, irregular atherosclerotic plaque noted in the left internal carotid artery. There is homogeneous, smooth atherosclerotic plaque noted in the left external carotid artery. Antegrade flow is noted in the left vertebral artery. Procedure Carotid Duplex 35809. The exam was diagnostic. Interpretation Summary Mild (<50%) stenosis right extracranial internal carotid. Moderate (50-69%) stenosis left extracranial internal carotid. Flow within the vertebral arteries is antegrade bilaterally. Ordering Physician: William Kraus Performed By: Ronaldo Vila RVT
== END ==
PROVIDERS: Family Provider Family Medicine; PCP Family Medicine; Referring Provider Surgery Vascular Surgery; Visit Provider Surgery Vascular Surgery
DX: I65.23 Occlusion and stenosis of bilateral carotid arteries (principal); I73.9 Peripheral vascular disease, unspecified; E78.00 Pure hypercholesterolemia, unspecified; I10 Essential (primary) hypertension; M19.90 Unspecified osteoarthritis, unspecified site; F17.200 Nicotine dependence, unspecified, uncomplicated; Z86.73 Personal history of transient ischemic attack (TIA), and cerebral infarction without residual deficits
CPT/HCPCS: 93880; 93922

== ENCOUNTER → 2019-03-30 08:03 | Outpatient (CLI) | payer MEDICARE, OTHER, MEDICAID, SELFPAY ==
[2019-02-22 10:40] VITALS: BMI 32.1
--- NOTE | 2019-03-30 08:05 | AAVD_ITS ---
Reason For Study: Aortic atherosclerosis Aorta Measurements Aorta Doppler Measurements Proximal aorta measures1.34 x 1.39cm. in cross- Peak systolic flow velocities within the proximal sectional axis. aorta measure 38.7 cm/sec. Proximal aorta measures1.40cm. in longitudinal Peak systolic flow velocities within the mid aorta axis. measure 54.3 cm/sec. Mid aorta measures1.18 x 1.15cm. in cross- Peak systolic flow velocities within the distal sectional axis. aorta measure 77.1 cm/sec. Mid aorta measures1.14cm. in longitudinal axis. Distal aorta measures1.12 x 1.13cm. in cross- sectional axis. Distal aorta measures1.13cm. in longitudinal axis. Left Iliac Artery Left iliac artery measures 0.57 x 0.59 cm. in the cross-sectional axis. Left iliac artery measures 0.59 cm. in the longitudinal axis. Peak systolic velocity in the left iliac artery measures 140.4 cm/sec. Right Iliac Artery Right iliac artery measures 0.54 x 0.56 cm. in the cross-sectional axis. Right iliac artery measures 0.48 cm. in the longitudinal axis. Peak systolic velocity in the right iliac artery measures 153.4 cm/sec. Procedure Aorta IVC Iliac vasculature or bypass grafts [id number]. Technically difficult study. Exam performed in department. Interpretation Summary 1. Aortoiliac with no aneurysm and no stenosis see. Ordering Physician: William Kraus Referring Physician: Erasmo Pierre Performed By: Socorro Hernández RVT
== END ==
PROVIDERS: PCP Family Medicine; Referring Provider Surgery Vascular Surgery; Visit Provider Surgery Vascular Surgery
DX: I70.0 Atherosclerosis of aorta (principal); I77.1 Stricture of artery
CPT/HCPCS: 93978

== ENCOUNTER → 2019-10-09 | Outpatient (CLI) | payer MEDICARE, MEDICAID, SELFPAY ==
[2019-09-20 14:53] VITALS: BMI 31.3
--- NOTE | 2019-10-09 06:28 | ECHOCS_ITS ---
Reason For Study: S/P CABG Procedure This was a 2D Doppler, Color Flow transthoracic echocardiogram. The study was technically difficult. Due to poor accoustic windows. Contrast injection was performed. Exam performed in department. Left Ventricle Normal LV size. Sigmoid septum. Left ventricular systolic function is normal. The estimated ejection fraction is 65 %. No evidence for diastolic dysfunction. No regional wall motion abnormalities noted. Right Ventricle Normal RV size. Normal systolic function. Atria Normal left atrium. Normal right atrium. No doppler evidence for ASD. Mitral Valve There is no mitral annular calcification. Normal mitral valve. Trivial mitral valve insufficiency. Tricuspid Valve Normal tricuspid valve. Trivial tricuspid valve insufficiency. Unable to estimate RV systolic pressure/pulmonary artery pressure due to technically difficult study. Aortic Valve The aortic valve is not well visualized. Pulmonic Valve The pulmonic valve is not well visualized. Great Vessels Normal sized aortic root. Pericardium/Pleural No pericardial effusion. Medication Diluted definity 3.0ml given slow IV push to enhance endocardial definition. MMode/2D Measurements & Calculations LVIDd: 3.5 cm IVSd: 0.98 cm Ao root diam: 2.9 cm LVIDs: 2.2 cm LVPWd: 0.69 cm RVDd: 2.9 cm FS: 36.9 % LAV(MOD-bp): 42.8 ml LA A4 area: 15.3 cm2 LA dimension(2D): 3.8 cm LAV(MOD-bp) Indexed: 23.3 ml/m2 LAV(MOD-sp2): 40.5 ml LAV(MOD-sp4): 40.6 ml Time Measurements MV dec time: 0.22 sec Doppler Measurements & Calculations MV E max [place]: 52.7 cm/sec Lat Peak E' [place]: 9.5 cm/sec Med Peak E' [place]: 7.2 cm/sec MV A max [place]: 93.1 cm/sec E/E' lat: 5.6 E/E' med: 7.3 MV E/A: 0.57 Ao V2 max: 129.3 cm/sec LV V1 max: 98.8 cm/sec PA V2 max: 101.9 cm/sec Ao max P.7 mmHg LV V1 max P.9 mmHg Interpretation Summary The study was technically difficult. Contrast injection was performed. Left ventricular systolic function is normal. The estimated ejection fraction is 65 %. Sigmoid septum. Trivial mitral valve insufficiency. Trivial tricuspid valve insufficiency. Unable to estimate RV systolic pressure/pulmonary artery pressure due to technically difficult study. No evidence for diastolic dysfunction. Ordering Physician: Tian Emery Referring Physician: Erasmo Pierre Performed By: Veena Toth, KATHYCS, RVT
--- NOTE | 2019-10-09 08:35 | STRESSREP ---
Stress Test Report Date: 10-09-2019 Procedure: Pharmacologic stress nuclear imaging study Indications: Chest discomfort; CAD; PCI; CABG; sick sinus syndrome; PAF; PPM Consent: Per the patient Procedure: The patient underwent pharmacologic (Regadenoson) evaluation with a peak heart rate of 96 beats per minute (63 %predicted maximal heart rate) and a peak blood pressure of 130/80 mmHg. The baseline ECG demonstrated electronic atrial pacemaker. The peak pharmacologic ECG demonstrated no obvious ECG changes. There was a rare PVC during recovery. There was no complaint of chest discomfort during pharmacologic infusion or recovery. The examination was discontinued secondary to completion of protocol. Impression: 1. Pharmacologic (Regadenoson) evaluation 2. Peak pharmacologic ECG with no obvious ECG changes. 3. There was a rare PVC during recovery. 4. Nuclear images pending Myocardial perfusion imaging study: Technique: The patient was injected with 11.2 millicuries of technetium 99m Cardiolite and subsequently rest SPECT Cardiolite nuclear imaging was obtained in the horizontal long, vertical long, and short axis views. The patient underwent pharmacologic (Regadenoson) evaluation with a peak heart rate of 96 beats per minute (63 % percent predicted maximal heart rate) and a peak blood pressure of 130/80 mmHg. The patient was injected with 35.0 millicuries of technetium 99m Cardiolite and subsequently stress SPECT Cardiolite nuclear imaging was obtained in the horizontal long, vertical long, and short axis views. A gated Cardiolite study at peak stress was obtained. Interpretation: Rest and stress SPECT Cardiolite nuclear imaging status post realignment and normalization demonstrate the appearance of diminished myocardial perfusion/tracer uptake in portions of the basal to mid lateral segments without significant change between rest and stress. There is diminished end systolic thickening and brightening in the aforementioned areas. The gated Cardiolite study demonstrates myocardial thickening and inward wall motion. The reported LVEF is 74 %. Impression: 1. And stress myocardial nuclear imaging demonstrate myocardial perfusion changes appearing compatible with an area of previous myocardial injury/infarction involving portions of the basal to mid lateral segments with no myocardial perfusion changes considered diagnostic for associated stress-induced myocardial ischemia. 2. The gated Cardiolite study reports an LVEF of 74 =%. This note was generated with [employer] software. It may contain incorrect words, spelling, and punctuation that were not noted in checking the note before signing.
== END | disposition home or self-care (01) ==
LOC: CVS 06:28
PROVIDERS: PCP Family Medicine; Referring Provider Internal Medicine Cardiovascular Disease; Visit Provider Internal Medicine Cardiovascular Disease
DX: I25.10 Atherosclerotic heart disease of native coronary artery without angina pectoris (principal); R07.9 Chest pain, unspecified; Z95.1 Presence of aortocoronary bypass graft; I48.0 Paroxysmal atrial fibrillation; I49.5 Sick sinus syndrome; E78.5 Hyperlipidemia, unspecified; I10 Essential (primary) hypertension; Z95.0 Presence of cardiac pacemaker; Z95.5 Presence of coronary angioplasty implant and graft
CPT/HCPCS: 78452; 93017; 93306; A9500; Q9957; A4216; C8929; J2785

== ENCOUNTER → 2020-11-14 11:34 | Outpatient (CLI) | payer MEDICARE, MEDICAID, OTHER, SELFPAY ==
[2020-11-14 15:45] LABS: Absolute Lymphocyte Count 2.62 X10^3/uL (0.83-4.51); Absolute Neutrophil Count 5.6 X10^3/uL (2.0-7.7); Basophil# 0.05 X10^3/uL; Basophil% 0.5 % (0-1); Eosinophil# 0.32 X10^3/uL; Eosinophils% 3.4 % (0-5); Hematocrit 46.6 % (37-47); Hemoglobin 14.8 g/dL (12.0-15.0); Lymphocyte # 2.62 X10^3/ul (0.83-4.51); Lymphocyte % 27.7 % (19-41); Mean Corp Hgb Conc 31.8 g/dL (32-36); Mean Corpuscular Volume 94.5 fL (81-99); Mean Platelet Vol. 12.8 fl (6.2-12.0); Monocyte# 0.87 X10^3/uL; Monocyte% 9.2 % (0-10); NRBC Flagged by Analyzer 0 % (0-5); Neutrophil # 5.58 X10^3/uL (2.7-7.7); Neutrophil % 58.9 % (47-70); Platelet Count 196 K/mm3 (150-450); RBC Distribution Width CV 14.6 % (11.6-14.6); RBC Distribution Width SD 51.6 fl (35.1-43.9); Red Blood Count 4.93 M/mm3 (4.2-5.4); White Blood Count 9.5 K/mm3 (4.4-11.0)
[2020-11-14 16:21] LABS: Hemoglobin A1c 5.6 % (3.8-5.6)
[2020-11-14 17:01] LABS: ALB/GLOB Ratio 0.9 RATIO (0.9-2.4); AST(SGOT) 20 U/L (15-37); Alanine Aminotransfer ALT/SGPT 32 U/L (13-56); Albumin, Serum 3.4 g/dL (3.2-5.0); Alkaline Phosphatase 74 U/L (45-117); Anion Gap 4 (5-15); BUN 14 mg/dL (7-18); BUN/Creat Ratio 14.4 RATIO (10-20); Calcium,Total 8.7 mg/dL (8.5-10.1); Chloride 105 mmol/L (98-107); Cholesterol 225 mg/dL (200); Creatinine, Serum 0.97 mg/dL (0.55-1.02); EST Glomerular Filtration Rate 60 mL/min (>60); Est Glom Filt Rate - Afr Amer 73 mL/min (>60); Globulin 3.9 g/dL (2.2-4.2); Glucose 98 mg/dL (74-106); High Density Lipoprotein 44 mg/dL; Magnesium 2.1 mg/dL (1.6-2.6); Potassium 3.9 mmol/L (3.5-5.1); Protein, Total 7.3 g/dL (6.4-8.2); Sodium Level 139 mmol/L (136-145); Triglycerides 188 mg/dL; Very Low Density Lipoprotein 38 mg/dL (5-40)
== END ==
PROVIDERS: PCP Family Medicine; Referring Provider Family Medicine; Visit Provider Family Medicine
DX: I25.10 Atherosclerotic heart disease of native coronary artery without angina pectoris (principal); I48.91 Unspecified atrial fibrillation; R73.02 Impaired glucose tolerance (oral)
CPT/HCPCS: 36415; 80053; 80061; 83036; 83735; 85025

== ENCOUNTER 2020-11-26 07:56 | Inpatient (IN) | payer MEDICARE, MEDICAID, SELFPAY ==
[2020-11-26] VITALS (7 sets, daily range): BP systolic 92–147; BP diastolic 30–81; PULSE 60–99; RESP 16–24; TEMP 36.5–37.1; O2SAT 93–100; BMI 30.7; BMI 30.6
--- NOTE | 2020-11-26 08:09 | EX.ED.DYSGE1 ---
HPI History of Present Illness Chief Complaint: Abd Pain Informant: patient and EMS Narrative Narrative: 70-year-old female developed diarrhea last night around 2300 hrs. She states that she was vomiting during the night in addition to her diarrhea. She states that this happens to her frequently. She states that this morning she had the urge to defecate and states that it was bloody. There is no black stool noted by the patient. She notes that she is on Coumadin. She states this happened a couple years ago and she underwent EGD and colonoscopy. She states they found an old ulcer. She notes a generalized abdominal pain. She cannot further characterize it at this time. [facility] Medical History (Updated 11/26/20 @ 10:[address] Sumeet Vo, DO) Atherosclerosis of [place] coronary artery of [place] heart without angina pectoris Carotid artery disease Essential hypertension assisted current use of anticoagulant Paroxysmal atrial fibrillation Presence of stent in coronary artery Home Medications aspirin 81 mg PO DAILY@0800 08/18/18 [History Last Taken Unknown] montelukast 10 mg tablet 10 mg PO QPM 02/22/19 [History Last Taken Unknown] albuterol sulfate 90 mcg/actuation aerosol inhaler 2 puff INHALATION Q6H PRN 03/05/19 [History Last Taken Unknown] fesoterodine 4 mg tablet,extended release 24 hr 4 mg PO DAILY 03/05/19 [History Last Taken Unknown] nitroglycerin 0.4 mg sublingual tablet 0.4 mg SUBLINGUAL Q5-15M PRN 03/05/19 [History Last Taken Unknown] pantoprazole 40 mg tablet,delayed release 40 mg PO DAILY tab 03/05/19 [History Last Taken Unknown] tiotropium 2.5 mcg-olodaterol 2.5 mcg/actuation mist for inhalation 2 puff INHALATION DAILY 03/05/19 [History Last Taken Unknown] benzonatate 100 mg capsule 100 mg PO DAILY 09/20/19 [History Last Taken Unknown] isosorbide mononitrate 10 mg tablet 10 mg PO BID #180 tab 01/01/20 [Rx Last Taken Unknown] metoprolol tartrate 25 mg tablet 12.5 mg PO BID #90 tab 01/03/20 [Rx Last Taken Unknown] cetirizine 10 mg capsule 10 mg PO DAILY 10/13/20 [History Last Taken Unknown] ferrous sulfate-vitamin C 39 mg-75 mg tablet 1 tab PO .Daily tab 10/13/20 [History Last Taken Unknown] handicap placard #1 ea 10/13/20 [Rx Last Taken Unknown] potassium chloride 10 mEq tablet,extended release(part/cryst) 20 meq PO DAILY #180 tab 10/13/20 [Rx Last Taken Unknown] pravastatin 80 mg tablet 80 mg PO QHS #90 tab 10/13/20 [Rx Last Taken Unknown] vitamin B12 500 mcg-folic acid 400 mcg tablet 1 tab PO DAILY 10/13/20 [History Last Taken Unknown] benzonatate 200 mg PO QHS 11/26/20 [History Last Taken Unknown] cholecalciferol (vitamin D3) [Vitamin D3] 50 mcg PO DAILY 11/26/20 [History Last Taken Unknown] enalapril maleate 1.25 mg PO DAILY 11/26/20 [History Last Taken Unknown] warfarin 2.5 mg PO MOTUWETH 11/26/20 [History Last Taken Unknown] warfarin 5 mg PO SUFRSA 11/26/20 [History Last Taken Unknown] Allergy/AdvReac Type Severity Reaction Status Date / Time atorvastatin calcium Allergy Hives Verified 11/26/20 07:57 [From Lipitor] gluten Allergy Food Verified 11/26/20 07:57 Allergy metoprolol succinate Allergy Rash Verified 11/26/20 07:57 [From Toprol XL] niacin Allergy Rash Verified 11/26/20 07:57 [From Niaspan Extended-Release] Penicillins Allergy Rash Verified 11/26/20 07:57 Sulfa (Sulfonamide Allergy Itching Verified 11/26/20 07:57 Antibiotics) radionuclide Allergy It almost Uncoded 11/26/20 07:57 killed me Family History Mother CVA (cerebral vascular accident) CAD (coronary artery disease) Surgical History History of cholecystectomy History of left-sided carotid endarterectomy (~06/2006) History of total hysterectomy Hx of CABG (~06/29/06) Social History Smoking Status: Former smoker alcohol intake: never substance use type: does not use ROS ROS ED Constitutional Constitutional ED: Denies chills or weight loss Eyes Eyes: Denies change in vision or diplopia ENT ENT ED: Denies ear pain, rhinorrhea or sore throat Cardiovascular Cardiovascular: Denies chest pain, orthopnea, palpitations or racing heartbeat Respiratory/Chest Respiratory/Chest: Denies cough, dyspnea or orthopnea Gastrointestinal Gastrointestinal: Reports abdominal pain, diarrhea, nausea, vomiting and other Details: Bright red blood per rectum Genitourinary Genitourinary ED: Denies dysuria, hematuria or urinary frequency Musculoskeletal Musculoskeletal: Denies arthralgias or myalgias Integumentary Denies abscess or rash Neurologic Neurologic: Denies headache(s) or weakness Psychiatric Psychiatric: Denies anxiety, depression, suicidal ideation or suicidal thoughts Endocrine Endocrinology: Denies polydipsia, polyphagia or polyuria Allergic/Immunologic Allergic/Immunologic ED: Denies mouth swelling, tongue swelling or urticaria EXAM Physical Exam Const Vital Signs: 11/26/20 07:57 Temperature 98.6 F Temperature Source Oral Pulse Rate 99 Respiratory Rate 24 H Blood Pressure 98/70 Blood Pressure Mean 79 Pulse Ox 96 Oxygen Delivery Method Room Air Positive well nourished, well developed and obese General Appearance ED: well developed Nutritional Appearance: obese HEENT Reports normocephalic, head/scalp atraumatic and moist mucous membranes Eyes PERRL and EOMs intact bilaterally Neck no lymphadenopathy, supple and no JVD Resp normal respiratory effort and clear to auscultation bilaterally Cardio regular rate, regular rhythm and no murmurs GI Palpation: soft and tender; Negative for guarding or rebound tenderness present Back/Spine no CVA tenderness and normal ROM Extremity normal to inspection General Extremety ED: Negative for edema General Extremity: Negative for edema Neuro oriented x3 and CN's II-XII intact bilaterally Sensorium / Orientation: alert Motor Exam: strength 5/5 throughout Psych mental status grossly normal Mood & Affect: anxious; Negative for depressed or tearful Skin no rashes or lesions noted and no wounds MDM MDM MDM Narrative Medical decision making narrative: Basic blood work revealed a white count of 24,000 hemoglobin of 16.8. Lactic acid significantly elevated at 4.1. BUN of 19 with a creatinine of 1.45. INR is 2.1. CT of the abdomen pelvis revealed changes of the transverse and descending and sigmoid colon consistent with colitis. Patient received IV fluids and after blood cultures received Cipro and Flagyl due to penicillin allergy. Patient has received pain and nausea medication. I will speak to the hospitalist regarding admission Lab Data Attestation: I reviewed the patient's lab results. Labs: Laboratory Results - last 24 hr 11/26/20 11/26/20 11/26/20 08:10 08:10 08:10 WBC 24.0 H RBC 5.51 H Hgb 16.8 H Hct 51.2 H MCV 92.9 MCH 30.5 MCHC 32.8 RDW Std Deviation 49.4 H RDW Coeff of Neymar 14.4 Plt Count 208 MPV 12.1 H Immature Gran % (Auto) 0.600 Neut % (Auto) 90.1 H Lymph % (Auto) 4.0 L [place] % (Auto) 5.1 Eos % (Auto) 0.0 Baso % (Auto) 0.2 Absolute Neuts (auto) 21.6 H Absolute Lymphs (auto) 0.97 Nucleated RBC % 0 Differential Comment D PT INR Sodium 138 Potassium 4.4 Chloride 110 H Carbon Dioxide 19.0 L Anion Gap 9 BUN 19 H Creatinine 1.45 H Estim Creat Clear Calc 31.17 Est GFR (MDRD) Af Amer 46 L Est GFR (MDRD) Non-Af 38 L BUN/Creatinine Ratio 13.1 Glucose 195 H Lactic Acid 4.1 H* Calcium 9.0 Total Bilirubin 1.10 H AST 33 ALT 31 Alkaline Phosphatase 184 H Troponin I High Sens 16 Total Protein 7.6 Albumin 3.3 Globulin 4.3 H Albumin/Globulin Ratio 0.8 L 11/26/20 08:10 WBC RBC Hgb Hct MCV MCH MCHC RDW Std Deviation RDW Coeff of Neymar Plt Count MPV Immature Gran % (Auto) Neut % (Auto) Lymph % (Auto) [place] % (Auto) Eos % (Auto) Baso % (Auto) Absolute Neuts (auto) Absolute Lymphs (auto) Nucleated RBC % Differential Comment PT 23.2 H INR 2.1 Sodium Potassium Chloride Carbon Dioxide Anion Gap BUN Creatinine Estim Creat Clear Calc Est GFR (MDRD) Af Amer Est GFR (MDRD) Non-Af BUN/Creatinine Ratio Glucose Lactic Acid Calcium Total Bilirubin AST ALT Alkaline Phosphatase Troponin I High Sens Total Protein Albumin Globulin Albumin/Globulin Ratio Radiography Diagnostic Testing: Radiology Impression Abdomen/Pelvis CT 11/26/20 09:52 IMPRESSION: Fatty infiltration of the liver. Status post cholecystectomy. Findings suggestive of colitis affecting the transverse colon as well as the left hemicolon down to the region of the rectum. Electronically Signed: Lane Marcus MD at 10:22 EDT , Service support , Discharge Plan Dx/Rx/DC Orders Clinical Impression: Acute colitis, Severe sepsis Disposition Disposition: Acute Care Hospital [facility]
[2020-11-26 08:25] LABS: Absolute Lymphocyte Count 0.97 X10^3/uL (0.83-4.51); Absolute Neutrophil Count 21.6 X10^3/uL (2.0-7.7); Basophil# 0.05 X10^3/uL; Basophil% 0.2 % (0-1); Eosinophil# 0.01 X10^3/uL; Hematocrit 51.2 % (37-47); Hemoglobin 16.8 g/dL (12.0-15.0); Lymphocyte # 0.97 X10^3/ul (0.83-4.51); Mean Corp Hgb Conc 32.8 g/dL (32-36); Mean Corpuscular Hgb 30.5 pg (27.0-32.0); Mean Corpuscular Volume 92.9 fL (81-99); Mean Platelet Vol. 12.1 fl (6.2-12.0); Monocyte# 1.22 X10^3/uL; Monocyte% 5.1 % (0-10); NRBC Flagged by Analyzer 0 % (0-5); Neutrophil # 21.64 X10^3/uL (2.7-7.7); Neutrophil % 90.1 % (47-70); POSITIVE DIFFERENTIAL YES; Platelet Count 208 K/mm3 (150-450); RBC Distribution Width CV 14.4 % (11.6-14.6); RBC Distribution Width SD 49.4 fl (35.1-43.9); Red Blood Count 5.51 M/mm3 (4.2-5.4)
[2020-11-26 08:26] LABS: Differential Indicated SCAN CRITERIA MET
[2020-11-26 08:28] LABS: International Normalized Ratio 2.1; Prothrombin Time (Protime)PT. 23.2 SECONDS (11.7-14.9)
[2020-11-26] MEDS: Ondansetron 4 MG/2 ML Vial IV ×2 (08:31→11:50)
[2020-11-26] MEDS: Morphine 4 MG/ML Syringe IV (08:31)
[2020-11-26] MEDS: 0.9% Normal Saline 1,000 ML 1000 ML IV ×3 (08:31→10:57)
[2020-11-26 08:51] LABS: ALB/GLOB Ratio 0.8 RATIO (0.9-2.4); AST(SGOT) 33 U/L (15-37); Alanine Aminotransfer ALT/SGPT 31 U/L (13-56); Albumin, Serum 3.3 g/dL (3.2-5.0); Alkaline Phosphatase 184 U/L (45-117); Anion Gap 9 (5-15); BUN 19 mg/dL (7-18); BUN/Creat Ratio 13.1 RATIO (10-20); Chloride 110 mmol/L (98-107); Creatinine, Serum 1.45 mg/dL (0.55-1.02); EST Glomerular Filtration Rate 38 mL/min (>60); Est Glom Filt Rate - Afr Amer 46 mL/min (>60); Estimated Creatinine Clearance 31.17 ml/min; Globulin 4.3 g/dL (2.2-4.2); Glucose 195 mg/dL (74-106); Potassium 4.4 mmol/L (3.5-5.1); Protein, Total 7.6 g/dL (6.4-8.2); Sodium Level 138 mmol/L (136-145); Troponin-I HS 16 pg/mL (3.0-54.0)
[2020-11-26 08:52] LABS: Differential Comment D
[2020-11-26 08:58] LABS: Lactic Acid 4.1 mmol/L (0.4-1.9)
--- NOTE | 2020-11-26 09:52 | CT_ITS ---
STUDY: CT ABDOMEN AND PELVIS WITH CONTRAST REASON FOR EXAM: Female, 70 years old. Abdominal pain and diarrhea -- IV PO Contrast RADIATION DOSAGE (If Supplied By Facility): CTDIvol = ( 24.00 ) mGy, DLP = ( 900.71 ) mGycm TECHNIQUE: Transaxial images were obtained from the dome of the diaphragm to the symphysis pubis with oral contrast. Oral and amp; IV Gastrografin and amp; 100mL Isovue-300 was administered. Sagittal and coronal images were reconstructed. Individualized dose optimization techniques were used for this CT. COMPARISON: Comparison is made with prior study dated 08/18/2018. FINDINGS: Stable minimal increased markings in the anterior aspect of the lower lobes suggests a mild linear atelectasis and/or scarring. A dual-chamber pacemaker is seen. There is decreased attenuation of the liver consistent with steatosis. There are surgical clips in the gallbladder fossa consistent with a prior cholecystectomy. Normal spleen. Normal pancreas. Normal bilateral adrenal glands. There is a 2.4 cm cyst in the upper medial aspect of the right kidney. Normal left kidney. Normal visualized stomach. Normal small intestine. Mild degree of the circumferential wall thickening with increased markings in the surrounding peritoneal fat involving the transverse colon as well as the left hemicolon down to the rectum. Colitis should be ruled out. The appendix is visualized and appears normal. There is diffuse atherosclerotic calcification of the abdominal aorta and the major visceral branches, without a demonstrated aneurysm. Normal inferior vena cava. Normal retroperitoneum. Normal urinary bladder. There is absence of the uterus consistent with a prior hysterectomy. Normal abdominal wall. There are degenerative changes of the visualized lumbar spine. Grade 1 anterior listhesis of L5 on S1 with spondylolysis of the pars interarticularis of the L5 vertebrae. CT/Abdomen/Pelvis WITH Contrast IMPRESSION: Fatty infiltration of the liver. Status post cholecystectomy. Findings suggestive of colitis affecting the transverse colon as well as the left hemicolon down to the region of the rectum. Electronically Signed: Lane Marcus MD at 10:22 EDT , Service support ,
[2020-11-26] MEDS: Ciprofloxacin 400 MG/200 ML BAG 200 MG IV ×2 (10:17→22:33)
--- NOTE | 2020-11-26 10:47 | NURSING ---
DR FLAQUITA HUFFMAN
--- NOTE | 2020-11-26 10:51 | HP.PCM.HOS_ITS ---
HPI - General General Date of Admission: 11/26/20 Date of Service: 11/26/20 Chief Complaint: Diarrhea?1 day, bright red stools -on the day of admission HPI Narrative DOT JOSEPH, is a 70 F who presents with above. Patient has history of intermittent chronic diarrhea that has been going on for 2 years. She used to see Dr. Odonnell. Patient had an episode of diarrhea yesterday in the late morning that lasted until evening. She took 2 Imodium and repeated one later on. She woke up this morning around 10:00 with abdominal discomfort. She had 1 large bright red bloody movement. She called 911 and was brought here. On the time of being seen. She has not had any more bloody bowel movement. She denied dizziness or palpitations. She has an occasional cough but no fever or chills. She denied any runny nose, sore throat or nausea or vomiting. She has been vaccinated. CT scan of the abdomen and pelvis showed fatty infiltration of the liver, findings suggestive of colitis of the transverse colon as well as the left hemicolon down to the region of the rectum. [facility] Medical History Atherosclerosis of [place] coronary artery of [place] heart without angina pectoris Carotid artery disease Essential hypertension prison current use of anticoagulant Paroxysmal atrial fibrillation Presence of stent in coronary artery Home Medications aspirin 81 mg PO DAILY@0800 08/18/18 [History Last Taken 11/25/20 09:00] montelukast 10 mg tablet 10 mg PO QPM 02/22/19 [History Last Taken 11/25/20 21:00] albuterol sulfate 90 mcg/actuation aerosol inhaler 2 puff INHALATION Q6H PRN 03/05/19 [History Last Taken Unknown] fesoterodine 4 mg tablet,extended release 24 hr 4 mg PO DAILY 03/05/19 [History Last Taken 11/25/20 21:00] nitroglycerin 0.4 mg sublingual tablet 0.4 mg SUBLINGUAL Q5-15M PRN 03/05/19 [History Last Taken Unknown] pantoprazole 40 mg tablet,delayed release 40 mg PO DAILY tab 03/05/19 [History Last Taken 11/25/20 09:00] tiotropium 2.5 mcg-olodaterol 2.5 mcg/actuation mist for inhalation 2 puff INHALATION DAILY 12/30/19 [History Last Taken 11/25/20 09:00] benzonatate 100 mg capsule 100 mg PO DAILY 09/20/19 [History Last Taken 11/25/20 09:00] isosorbide mononitrate 10 mg tablet 10 mg PO BID #180 tab 01/01/20 [Rx Last Taken 11/25/20 21:00] metoprolol tartrate 25 mg tablet 12.5 mg PO BID #90 tab 01/03/20 [Rx Last Taken 11/25/20 21:00] cetirizine 10 mg capsule 10 mg PO DAILY 10/13/20 [History Last Taken 11/25/20 09:00] ferrous sulfate-vitamin C 39 mg-75 mg tablet 1 tab PO .Daily tab 10/13/20 [History Last Taken 11/25/20 09:00] handicap placard #1 ea 10/13/20 [Rx Last Taken Unknown] potassium chloride 10 mEq tablet,extended release(part/cryst) 20 meq PO DAILY #180 tab 10/13/20 [Rx Last Taken 11/25/20 09:00] pravastatin 80 mg tablet 80 mg PO QHS #90 tab 10/13/20 [Rx Last Taken 11/25/20 21:00] vitamin B12 500 mcg-folic acid 400 mcg tablet 1 tab PO DAILY 10/13/20 [History Last Taken 11/25/20 09:00] benzonatate 200 mg PO QHS 11/26/20 [History Last Taken 11/25/20 21:00] cholecalciferol (vitamin D3) [Vitamin D3] 50 mcg PO DAILY 11/26/20 [History Last Taken 11/25/20 09:00] enalapril maleate 1.25 mg PO DAILY 11/26/20 [History Last Taken 11/25/20 09:00] warfarin 2.5 mg PO MOTUWETH 11/26/20 [History Last Taken 11/25/20 17:00] warfarin 5 mg PO SUFRSA 11/26/20 [History Last Taken 11/23/20 17:00] Allergy/AdvReac Type Severity Reaction Status Date / Time atorvastatin calcium Allergy Hives Verified 11/26/20 07:57 [From Lipitor] gluten Allergy Food Verified 11/26/20 07:57 Allergy metoprolol succinate Allergy Rash Verified 11/26/20 07:57 [From Toprol XL] niacin Allergy Rash Verified 11/26/20 07:57 [From Niaspan Extended-Release] Penicillins Allergy Rash Verified 11/26/20 07:57 Sulfa (Sulfonamide Allergy Itching Verified 11/26/20 07:57 Antibiotics) radionuclide Allergy It almost Uncoded 11/26/20 07:57 killed me Family History Mother CVA (cerebral vascular accident) CAD (coronary artery disease) Surgical History History of cholecystectomy History of left-sided carotid endarterectomy (~06/2006) History of total hysterectomy Hx of CABG (~06/29/06) Status post placement of cardiac pacemaker Social History (Updated 11/26/20 @ 16:[address] Dimple Curtis MD) household members: none Smoking Status: Former smoker alcohol intake: never substance use type: does not use ROS ROS Narrative Constitutional: Denies: Anorexia, Chills, Fever, Night Sweats, Weight Change Eyes: Denies: Blurred vision, Cataracts, Conjunctivae Inflammation, Pain, Redness, Vision Change HEENT: Denies: Difficulty Hearing, Difficulty Swallowing, Head Aches, Hearing Changes, Sinus Congestion, Sinus Drainage Cardiovascular: Denies: Chest Pain, Orthopnea, Palpitations Respiratory: See HPI Gastrointestinal: See HPI Genitourinary: Denies: Dysuria Musculoskeletal: Denies: Joint Pain, Joint stiffness, Joint swelling, Joint Tenderness Skin: Denies: Rash, Wounds Neurological: Denies: Numbness, Tingling, Focal weakness Vital Signs Vital Signs Vital Signs: 11/26/20 07:57 Temperature 98.6 F Temperature Source Oral Pulse Rate 99 Respiratory Rate 24 H Blood Pressure 98/70 Blood Pressure Mean 79 Pulse Ox 96 Oxygen Delivery Method Room Air Weight Weight: 81.1 kg Body Mass Index (BMI) 30.7 Physical Exam Narrative Physical exam: General: Alert, Oriented x3, Cooperative, No apparent distress, Well developed HEENT: Atraumatic Oral: Moist Mucosa Neck: Supple Lungs: Clear to auscultation Cardiovascular: HS I+II, regular, no murmurs Abdomen: Bowel Sounds Present, Soft, Non Tender, palpable organ Extremities: No edema Results Lab / Micro Data Result Diagrams: 11/26/20 13:40 11/26/20 08:10 Labs: Laboratory Results - last 24 hr 11/26/20 08:10: WBC 24.0 H, RBC 5.51 H, Hgb 16.8 H, Hct 51.2 H, MCV 92.9, MCH 30.5, MCHC 32.8, RDW Std Deviation 49.4 H, RDW Coeff of Neymar 14.4, Plt Count 208, MPV 12.1 H, Immature Gran % (Auto) 0.600, Neut % (Auto) 90.1 H, Lymph % (Auto) 4.0 L, [place] % (Auto) 5.1, Eos % (Auto) 0.0, Baso % (Auto) 0.2, Absolute Neuts (auto) 21.6 H, Absolute Lymphs (auto) 0.97, Nucleated RBC % 0, Differential Comment D 11/26/20 08:10: Sodium 138, Potassium 4.4, Chloride 110 H, Carbon Dioxide 19.0 L , Anion Gap 9, BUN 19 H, Creatinine 1.45 H, Estim Creat Clear Calc 31.17, Est GFR (MDRD) Af Amer 46 L, Est GFR (MDRD) Non-Af 38 L, BUN/Creatinine Ratio 13.1, Glucose 195 H, Calcium 9.0, Total Bilirubin 1.10 H, AST 33, ALT 31, Alkaline Phosphatase 184 H, Troponin I High Sens 16, Total Protein 7.6, Albumin 3.3, Globulin 4.3 H, Albumin/Globulin Ratio 0.8 L 11/26/20 08:10: Lactic Acid 4.1 H* 11/26/20 08:10: PT 23.2 H, INR 2.1 Radiology Impression Abdomen/Pelvis CT 11/26/20 09:52 IMPRESSION: Fatty infiltration of the liver. Status post cholecystectomy. Findings suggestive of colitis affecting the transverse colon as well as the left hemicolon down to the region of the rectum. Electronically Signed: Lane Marcus MD at 10:22 EDT , Service support , Assessment & Plan Assessment/Plan (1) Acute colitis: (2) Presence of stent in coronary artery: (3) Essential hypertension: (4) Carotid artery disease: QUALIFIERS: Laterality: bilateral Carotid artery disease type: stenosis Qualified Code(s): I65.23 - Occlusion and stenosis of bilateral carotid arteries (5) Hx of CABG: (6) Paroxysmal atrial fibrillation: (7) Sick sinus syndrome with tachycardia: (8) HLD (hyperlipidemia): QUALIFIERS: Hyperlipidemia type: unspecified Qualified Code(s): E78.5 - Hyperlipidemia, unspecified (9) Cerebrovascular disease: (10) Pacemaker: PLAN: 1. Acute colitis, unclear etiology, Patient presents with 1 day of diarrhea and bloody stools the next morning History of colitis, unclear etiology 2 years ago, status post EGD and colonoscopy Suspect ischemic colitis as patient has multiple cardiovascular risk factors WBC on admission is 24.0, neutrophilia No fevers or chills No more diarrhea at the time of exam CT of the abdomen and pelvis showed colitis of the transverse colon as well as left side of the colon Check stool for C. difficile, enteric panel Will start empirically on IV Flagyl and Cipro GI consult 2. Acute GI bleed likely secondary to #1 Patient with history of gastric ulcer on EGD in 2019 INR is 2.1 Seen on gentle IV fluids, PPI, clear liquid diet GI consulted 3. Lactic acidosis, lactic acid of 4.1 likely secondary to #1, will trend 4. TA, likely prerenal, creatinine 12 days ago was 0.97, creatinine admission was 1.45 Will trend 5. CAD status post CABG status post stent/paroxysmal atrial fibrillation/PAD/hyperlipidemia/sick sinus syndrome status post pacemaker Continue isosorbide, metoprolol, pravastatin 6. DVT PPx- SCDs Charges/Coding Visit Charges Inpatient E&M: 30126 Init Hosp L3
[2020-11-26] MEDS: HYDROmorphone 0.5 MG/0.5 ML SYRINGE IV (10:54)
--- NOTE | 2020-11-26 11:22 | NURSING ---
MED SURG NUAMA ACUTE COLITIS
[2020-11-26] MEDS: metroNIDAZOLE 500 MG/100 ML BAG 100 MG IV ×2 (11:31→21:02)
[2020-11-26 12:17] LABS: Reflex Lactate? Y
[2020-11-26 12:42] LABS: Lactic Acid 3.2 mmol/L (0.4-1.9)
[2020-11-26] MEDS: 0.9% Normal Saline 1,000 ML 75 ML IV (13:23)
[2020-11-26 13:50] LABS: Hemoglobin 13.7 g/dL (12.0-15.0)
--- NOTE | 2020-11-26 16:53 | EX.PCM.CON.G ---
HPI Consult Data Date of Consult: 11/26/20 HPI Narrative HPI Narrative: DOT JOSEPH, is a 70 F who presents with multiple episodes of diarrhea, nausea and vomiting and lower GI bleed. She had a similar episode approximately 2 years ago when she presented with coffee-ground emesis and diarrhea. She underwent EGD and colonoscopy at that time was discovered to have a healing gastric ulcer and severe diverticular disease. A couple days ago she started having worsening diarrhea. Also she says she has been having diarrhea ever since her previous procedure 2 years ago. Her diarrhea at this time progressed to lower GI bleeding followed by cramping abdominal pain and nausea with vomiting. This time she not have hematemesis but she did have a lot of bile present in her vomitus. In the ED biochemical testing showed dehydration possibly consistent with upper GI bleed and a severely elevated white blood cell count. She got a CT scan abdomen pelvis which did show colitis throughout the colon particularly around the level of the splenic flexure. She has a history of CAD status post PTCA with stents in 2006 and CABG involving the SANDHU to LAD, SVG to diagonal and SVG to RCA. She is on aspirin therapy. She maintains that she has celiac disease and is gluten-free diet. When she had her last colonoscopy biopsies were done to see if there are any signs of microscopic colitis. She says that her daily pattern of diarrhea usually consist of a seminormal bowel movement the morning followed by multiple episodes of diarrhea throughout the day. All other 16 review of systems are negative except those pertinent positive mentioned HPI. [facility] Medical History Atherosclerosis of quechan coronary artery of quechan heart without angina pectoris Carotid artery disease Essential hypertension FPC current use of anticoagulant Paroxysmal atrial fibrillation Presence of stent in coronary artery Home Medications aspirin 81 mg PO DAILY@0800 08/18/18 [History Last Taken 11/25/20 09:00] montelukast 10 mg tablet 10 mg PO QPM 02/22/19 [History Last Taken 11/25/20 21:00] albuterol sulfate 90 mcg/actuation aerosol inhaler 2 puff INHALATION Q6H PRN 03/05/19 [History Last Taken Unknown] fesoterodine 4 mg tablet,extended release 24 hr 4 mg PO DAILY 03/05/19 [History Last Taken 11/25/20 21:00] nitroglycerin 0.4 mg sublingual tablet 0.4 mg SUBLINGUAL Q5-15M PRN 03/05/19 [History Last Taken Unknown] pantoprazole 40 mg tablet,delayed release 40 mg PO DAILY tab 03/05/19 [History Last Taken 11/25/20 09:00] tiotropium 2.5 mcg-olodaterol 2.5 mcg/actuation mist for inhalation 2 puff INHALATION DAILY 03/05/19 [History Last Taken 11/25/20 09:00] benzonatate 100 mg capsule 100 mg PO DAILY 09/20/19 [History Last Taken 11/25/20 09:00] isosorbide mononitrate 10 mg tablet 10 mg PO BID #180 tab 01/01/20 [Rx Last Taken 11/25/20 21:00] metoprolol tartrate 25 mg tablet 12.5 mg PO BID #90 tab 01/03/20 [Rx Last Taken 11/25/20 21:00] cetirizine 10 mg capsule 10 mg PO DAILY 10/13/20 [History Last Taken 11/25/20 09:00] ferrous sulfate-vitamin C 39 mg-75 mg tablet 1 tab PO .Daily tab 10/13/20 [History Last Taken 11/25/20 09:00] handicap placard #1 ea 10/13/20 [Rx Last Taken Unknown] potassium chloride 10 mEq tablet,extended release(part/cryst) 20 meq PO DAILY #180 tab 10/13/20 [Rx Last Taken 11/25/20 09:00] pravastatin 80 mg tablet 80 mg PO QHS #90 tab 10/13/20 [Rx Last Taken 11/25/20 21:00] vitamin B12 500 mcg-folic acid 400 mcg tablet 1 tab PO DAILY 10/13/20 [History Last Taken 11/25/20 09:00] benzonatate 200 mg PO QHS 11/26/20 [History Last Taken 11/25/20 21:00] cholecalciferol (vitamin D3) [Vitamin D3] 50 mcg PO DAILY 11/26/20 [History Last Taken 11/25/20 09:00] enalapril maleate 1.25 mg PO DAILY 11/26/20 [History Last Taken 11/25/20 09:00] warfarin 2.5 mg PO MOTUWETH 11/26/20 [History Last Taken 11/25/20 17:00] warfarin 5 mg PO SUFRSA 11/26/20 [History Last Taken 11/23/20 17:00] Allergy/AdvReac Type Severity Reaction Status Date / Time atorvastatin calcium Allergy Hives Verified 11/26/20 07:57 [From Lipitor] gluten Allergy Food Verified 11/26/20 07:57 Allergy metoprolol succinate Allergy Rash Verified 11/26/20 07:57 [From Toprol XL] niacin Allergy Rash Verified 11/26/20 07:57 [From Niaspan Extended-Release] Penicillins Allergy Rash Verified 11/26/20 07:57 Sulfa (Sulfonamide Allergy Itching Verified 11/26/20 07:57 Antibiotics) radionuclide Allergy It almost Uncoded 11/26/20 07:57 killed me Family History Mother CVA (cerebral vascular accident) CAD (coronary artery disease) Surgical History History of cholecystectomy History of left-sided carotid endarterectomy (~06/2006) History of total hysterectomy Hx of CABG (~06/29/06) Status post placement of cardiac pacemaker Social History (Updated 11/26/20 @ 16:[address] Dimple Curtis MD) household members: none Smoking Status: Former smoker alcohol intake: never substance use type: does not use ROS Review of Systems ROS Unobtainable: other Constitutional Constitutional: Denies fatigue, fever(s), poor appetite, weight gain or weight loss ENT HEENT: Denies mouth lesions Cardiovascular Cardiovascular: Denies abdominal bloating, abdominal edema or abdominal pain Respiratory/Chest Respiratory/Chest: Denies change in mental status, change in phlegm color, chest congestion or chest tightness Gastrointestinal Gastrointestinal: Denies belching, bloating, change in bowel habits, change in stool character, chewing difficulty, coffee ground emesis, constipation, cramping, diarrhea, dyspepsia, dysphagia, early satiety, excessive flatus, fecal incontinence, heartburn, hematemesis, hematochezia, hemorrhoids, loose stools, melena, nausea, odynophagia, rectal bleeding, tenesmus, vomiting or weight changes Genitourinary Genitourinary: Denies abdominal discomfort, burning urination or itching Musculoskeletal Musculoskeletal: Reports as per HPI; Denies muscle weakness or myalgias Integumentary Integumentary: Denies jaundice Neurologic Neurologic: Denies lack of coordination or weakness Psychiatric Psychiatric: Denies confusion, depression, memory loss, mood swings, paranoia or suicidal ideation Endocrine Endocrinology: Denies systems reviewed and no addt'l complaints, except as documented Hematologic/Lymphatic Hematologic/Lymphatic: Denies anemia, easy bleeding, easy bruising or lymphadenopathy Allergic/Immunologic Allergic/Immunologic: Denies systems reviewed and no addt'l complaints, except as documented Physical Exam Const alert General Appearance: cooperative Orientation / Consciousness: oriented to person HEENT hearing grossly normal bilaterally Head and Scalp: normal to inspection Face and Sinus: face symmetric Nose: external nose normal Mouth: oral and palatal mucosa normal Eyes conjunctivae normal General Eye: normal appearance of both eyes Neck full ROM General: normal visual inspection Lymph Lymphatic: no lymphadenopathy noted Chest inspection of chest normal and palpation of chest normal Chest: symmetrical chest wall rise Resp normal respiratory effort Effort and Inspection: able to speak in complete sentences Cardio regular rate GI GI Narrative: Pain on deep palpation throughout the left side of the abdominal wall Auscultation: hypoactive bowel sounds Rectal Exam: deferred Neuro Speech: speech normal Gait (Neuro): normal gait Lab / Micro Data Result Diagrams: 11/26/20 13:40 11/26/20 08:10 Labs: Laboratory Results - last 24 hr 11/26/20 08:10: WBC 24.0 H, RBC 5.51 H, Hgb 16.8 H, Hct 51.2 H, MCV 92.9, MCH 30.5, MCHC 32.8, RDW Std Deviation 49.4 H, RDW Coeff of Neymar 14.4, Plt Count 208, MPV 12.1 H, Immature Gran % (Auto) 0.600, Neut % (Auto) 90.1 H, Lymph % (Auto) 4.0 L, Perkins % (Auto) 5.1, Eos % (Auto) 0.0, Baso % (Auto) 0.2, Absolute Neuts (auto) 21.6 H, Absolute Lymphs (auto) 0.97, Nucleated RBC % 0, Differential Comment D 11/26/20 08:10: Sodium 138, Potassium 4.4, Chloride 110 H, Carbon Dioxide 19.0 L, Anion Gap 9, BUN 19 H, Creatinine 1.45 H, Estim Creat Clear Calc 31.17, Est GFR (MDRD) Af Amer 46 L, Est GFR (MDRD) Non-Af 38 L, BUN/Creatinine Ratio 13.1, Glucose 195 H, Calcium 9.0, Total Bilirubin 1.10 H, AST 33, ALT 31, Alkaline Phosphatase 184 H, Troponin I High Sens 16, Total Protein 7.6, Albumin 3.3, Globulin 4.3 H, Albumin/Globulin Ratio 0.8 L 11/26/20 08:10: Lactic Acid 4.1 H* 11/26/20 08:10: PT 23.2 H, INR 2.1 11/26/20 10:05: Lactic Acid 3.2 H* 11/26/20 13:40: Hgb 13.7, Hct 43.0 Radiology Impression Abdomen/Pelvis CT 11/26/20 09:52 IMPRESSION: Fatty infiltration of the liver. Status post cholecystectomy. Findings suggestive of colitis affecting the transverse colon as well as the left hemicolon down to the region of the rectum. Electronically Signed: Lane Marcus MD at 10:22 EDT , Service support , Assessment & Plan Assessment/Plan (1) Acute colitis: PLAN: The differential diagnosis for her diarrhea would be ischemic colitis in a patient did have severe CAD. Also the differential diagnosis would be infectious colitis. Awaiting blood cultures, stool cultures and C. difficile testing. (2) Severe sepsis: PLAN: Severe sepsis possibly secondary to infectious colitis. At this time the patient does not seem very septic. I suspect that her leukocytosis is reactionary (3) Acute blood loss anemia: PLAN: Acute blood loss anemia likely secondary to ischemic colitis or upper GI bleed rapid transit pain that she did have a ulcer in her stomach that was seen approximately 2 years ago. Recommend EGD and colonoscopy divide patient upper GI tract and lower GI tract. She was explained alternatives, risk, benefits including not withstanding bleeding, infection, sepsis, perforation, need for emergent and . She will have an ASA of 3. Charges/Coding Visit Charges Inpatient E&M: 09241 Init Hosp L3
[2020-11-26 17:33] LABS: Lactic Acid 1.3 mmol/L (0.4-1.9)
[2020-11-26] MEDS: Isosorbide Mononitrate 20 MG Tablet 10 MG PO (17:47)
[2020-11-26] MEDS: Metoclopramide 10 MG/2 ML Vial 5 MG IV ×2 (17:47→23:26)
[2020-11-26] MEDS: 0.9% Saline Lock 10 ML Syringe IV (17:48)
--- NOTE | 2020-11-26 17:57 | PCS.PANDOC ---
PANDEMIC DOCUMENTATION INITIATED: Date: 11/26/2020 Time: 2609
[2020-11-26] MEDS: Ipratropium/Albuterol Sulfate 3 ML AMPUL.NEB INHALATION (19:01)
[2020-11-26 19:27] LABS: Hematocrit 40.3 % (37-47); Hemoglobin 12.6 g/dL (12.0-15.0)
[2020-11-26] MEDS: Polyethylene Glycol 3350 BOWEL PREP PO (20:50)
[2020-11-26] MEDS: Pravastatin 80 MG Tablet PO (21:02)
[2020-11-26] MEDS: Montelukast 10 MG Tablet PO (21:02)
--- NOTE | 2020-11-26 23:33 | NURSING ---
When this RN was in patients room, patient was itching left arm above infusion site. At this time IV cipro was infusing, left forearm above infusion becoming bright red and patient itching, IV ATB placed on hold at this time. Will notify MD. During this time patient c/o nausea, routine reglan given. Will continue to monitor. So far patient has only had 1 small BM, many small clots present.
[2020-11-27] VITALS (17 sets, daily range): BP systolic 87–112; BP diastolic 34–83; PULSE 58–70; RESP 16–63; TEMP 35.7–37; O2SAT 93–100; BMI 30.9
--- NOTE | 2020-11-27 | IMM_PTH ---
PATIENT: DOT JOSEPH LOC: MS2 U#:[id number] AGE/SX: 70/F ROOM: [facility] [place] RE11/26/[address]: Dr. Dimple Curtis MD : 1950 BED: 1 DIS: 11/28/2020 SPEC #: [id number] RECD: 12/01/20 14:29 STATUS: MARIO RECrystal #: [id number] SIERRA: 11/27/20 00:[address]: Zhen Kirk DEPT: IMMUNOHISTOCHEMISTRY RECD BY: Danielle Scherer ENTERED: 12/01/20 14:30 SP TYPE: IMMUNO OTHR DR: MD Dr. Erasmo Chaidez MD Tissues: A - Stomach, NOS Procedures: H Pylori (initial) PHYSICIAN & INSTITUTION [place] [phone] SPECIMEN INFORMATION: Tissue Source: A ? Gastric body ulcer biopsy Clinical Info: Acute colitis, blood loss anemia Specimen Number: [id number] CPT code: 48292 METHODOLOGY: Deparaffinized sections of prefer/formalin-fixed tissue or PAP/DQ stained slides are incubated with monoclonal/polyclonal antibodies/oligonucleotide probes. Localization is made via biotin free immunoperoxidase method. Appropriate controls are performed and reacted as expected. Results on target cell population are indicated in the following table: RESULTS: ANTIBODY / CLONE RESULT Block A H Pylori (polyclonal) negative These tests were developed and their performance characteristics determined by [facility]. They may not have been cleared or approved by the U.S. Food and Drug Administration. The FDA has determined that such clearance or approval is not necessary. INTERPRETATION: A. Gastric body ulcer, biopsy: Negative for Helicobacter pylori organisms. SJ:mae 12/02/2020
--- NOTE | 2020-11-27 00:01 | NURSING ---
Upon assessment after ATB was stopped patient left arm was less red and patient denied itching.
[2020-11-27] MEDS: Ondansetron 4 MG/2 ML Vial IV (00:18)
[2020-11-27 00:23] LABS: Hematocrit 38.4 % (37-47); Hemoglobin 12.2 g/dL (12.0-15.0)
--- NOTE | 2020-11-27 05:00 | EKG12_ITS ---
Test Reason : PRE-OP Blood Pressure : / mmHG Vent. Rate : 061 BPM Atrial Rate : 061 BPM P-R Int : 194 ms QRS Dur : 074 ms QT Int : 472 ms P-R-T Axes : -08 029 079 degrees QTc Int : 475 ms Atrial-paced rhythm ST & T wave abnormality, consider anterolateral ischemia Prolonged QT Abnormal ECG Confirmed by STEVE MARIN, RADHA ([id number]), senior editor TAMY COLMENARES ([id number]) on 12/03/2020 11:18:49 AM Referred By: DR SAMS Confirmed By:RADHA WILSON MD
[2020-11-27] MEDS: Metoclopramide 10 MG/2 ML Vial 5 MG IV ×3 (05:30→21:36)
[2020-11-27] MEDS: metroNIDAZOLE 500 MG/100 ML BAG 100 MG IV (05:30)
--- NOTE | 2020-11-27 06:44 | NURSING ---
This RN gave approximately 500mls of soap suds enema per order from Dr. Kirk this am, patient unable to tolerate anymore of the enema. Patient only able to hold enema for about 30 seconds. Immediate return into the bedside commode of soap suds enema with flecks of red. No stool present.
[2020-11-27 07:05] LABS: Absolute Lymphocyte Count 1.84 X10^3/uL (0.83-4.51); Absolute Neutrophil Count 8.3 X10^3/uL (2.0-7.7); Basophil# 0.02 X10^3/uL; Basophil% 0.2 % (0-1); Eosinophil# 0.18 X10^3/uL; Eosinophils% 1.6 % (0-5); Hematocrit 39.1 % (37-47); Lymphocyte # 1.84 X10^3/ul (0.83-4.51); Lymphocyte % 16.4 % (19-41); Mean Corp Hgb Conc 30.7 g/dL (32-36); Mean Corpuscular Hgb 30.5 pg (27.0-32.0); Mean Corpuscular Volume 99.2 fL (81-99); Mean Platelet Vol. 12.1 fl (6.2-12.0); Monocyte# 0.82 X10^3/uL; Monocyte% 7.3 % (0-10); NRBC Flagged by Analyzer 0 % (0-5); Neutrophil # 8.32 X10^3/uL (2.7-7.7); Platelet Count 140 K/mm3 (150-450); RBC Distribution Width CV 14.5 % (11.6-14.6); RBC Distribution Width SD 53.5 fl (35.1-43.9); Red Blood Count 3.94 M/mm3 (4.2-5.4); White Blood Count 11.2 K/mm3 (4.4-11.0)
[2020-11-27] MEDS: Ipratropium/Albuterol Sulfate 3 ML AMPUL.NEB INHALATION ×2 (07:06→18:52)
[2020-11-27 07:14] LABS: International Normalized Ratio 2.2; Prothrombin Time (Protime)PT. 23.7 SECONDS (11.7-14.9)
[2020-11-27 08:23] LABS: ALB/GLOB Ratio 0.8 RATIO (0.9-2.4); AST(SGOT) 53 U/L (15-37); Alanine Aminotransfer ALT/SGPT 60 U/L (13-56); Albumin, Serum 2.3 g/dL (3.2-5.0); Alkaline Phosphatase 96 U/L (45-117); Anion Gap 5 (5-15); BUN 8 mg/dL (7-18); BUN/Creat Ratio 9.7 RATIO (10-20); Calcium,Total 7.2 mg/dL (8.5-10.1); Chloride 113 mmol/L (98-107); Creatinine, Serum 0.82 mg/dL (0.55-1.02); EST Glomerular Filtration Rate 73 mL/min (>60); Est Glom Filt Rate - Afr Amer 88 mL/min (>60); Estimated Creatinine Clearance 55.13 ml/min; Glucose 116 mg/dL (74-106); Potassium 3.1 mmol/L (3.5-5.1); Protein, Total 5.3 g/dL (6.4-8.2); Sodium Level 140 mmol/L (136-145)
[2020-11-27] MEDS: Ciprofloxacin 400 MG/200 ML BAG 200 MG IV (08:30)
--- NOTE | 2020-11-27 11:15 | COLBX_PTH ---
PATIENT: DOT JOSEPH LOC: MS2 U#:[id number] AGE/SX: 70/F [place] [facility] RE11/26/[address]: Dr. Dimple Curtis MD : 1950 BED: 1 DIS: 11/28/2020 SPEC #: [id number] RECD: 11/27/20 14:36 STATUS: MARIO DAMON #: [id number] SIERRA: 11/27/20 11:[address]: Zhen Kirk DEPT: SURGICAL PATHOLOGY RECD BY: Lashon Boyce ENTERED: 11/28/20 07:30 SP TYPE: COLON BX OTHR DR: MD Dr. Erasmo Chaidez MD Tissues: A - Gastric mucous membrane B - Ascending colon C - COLON BIOPSY Procedures: Surgery Specimen Level IV HEADER OPERATION: Colonoscopy, [place] PRE-OP DIAGNOSIS: Acute colitis, blood loss anemia TISSUE SUBMITTED: A - Gastric body ulcer biopsy, B - Ascending polyp biopsy, C - Random colonic biopsy MICROSCOPIC DIAGNOSIS A. Gastric body ulcer, biopsy: Mild gastritis. Focal mucosal congestion and hemorrhage. See microscopic description and comment. B. Ascending colon polyp, biopsy: Tubular adenoma. C. Colon, random biopsy: Fragments of colonic mucosa with focal changes consistent with ischemic colitis, mucosal congestion and hemorrhage. SJ:rg 12/01/2020 COMMENT A. The results of immunohistochemistry for Helicobacter pylori will be reported separately ([id number]). MICROSCOPIC DESCRIPTION Slides are reviewed. A. The specimen shows fragments of gastric mucosa with chronic inflammatory cell infiltrates in the lamina propria consisting of lymphocytes and plasma cells, consistent with mild chronic gastritis. Focal mucosal congestion and hemorrhage are also noted. GROSS DESCRIPTION A - Received in fixative is one container labeled with the patient's name and designated gastric body ulcer biopsy. The specimen consists of multiple irregular fragments of light beltrán soft tissue that in aggregate measure 0.8 x 0.5 x 0.1 cm. The specimen is totally submitted in one cassette. B - Received in fixative is one container labeled with the patient's name and designated ascending polyp biopsy. The specimen consists of two irregular fragments of light beltrán soft tissue that in aggregate measure 0.5 x 0.3 x 0.1 cm. The specimen is totally submitted in one cassette. C - Received in fixative is one container labeled with the patient's name and designated random colonic biopsy. The specimen consists of multiple irregular fragments of light beltrán soft tissue that in aggregate measure 1 x 0.5 x 0.1 cm. The specimen is totally submitted in one cassette. / SJ:rg 11/28/20 TC:1 CPT: 53341 x3
--- NOTE | 2020-11-27 12:33 | OP.EGD_ITS ---
Patient Name: Divya Cano Procedure Date: 11/27/2020 10:33 AM Date of : 1950 Age: 70 Procedure: Upper GI endoscopy Indications: Generalized abdominal pain, Acute post hemorrhagic anemia Providers: Zhen Kirk DO Medicines: Monitored Anesthesia Care Patient Profile: This is a 70 year old female. Refer to note in patient chart for documentation of history and physical. Patient has symptoms. The symptoms first began 01,. Complications: No immediate complications. Procedure: Pre-Anesthesia Assessment: - Prior to the procedure, a History and Physical was performed, and patient medications and allergies were reviewed. The patient is competent. The risks and benefits of the procedure and the sedation options and risks were discussed with the patient. All questions were answered and informed consent was obtained. Patient identification and proposed procedure were verified by the physician in the pre-procedure area. Mental Status Examination: alert and oriented. Respiratory Examination: clear to auscultation. CV Examination: normal. Prophylactic Antibiotics: The patient does not require prophylactic antibiotics. Prior Anticoagulants: The patient has taken no previous anticoagulant or antiplatelet agents. ASA Grade Assessment: II - A patient with mild systemic disease. After reviewing the risks and benefits, the patient was deemed in satisfactory condition to undergo the procedure. The anesthesia plan was to use moderate sedation / analgesia (conscious sedation). Immediately prior to administration of medications, the patient was re-assessed for adequacy to receive sedatives. The heart rate, respiratory rate, oxygen saturations, blood pressure, adequacy of pulmonary ventilation, and response to care were monitored throughout the procedure. The physical status of the patient was re-assessed after the procedure. After obtaining informed consent, the endoscope was passed under direct vision. Throughout the procedure, the patient's blood pressure, pulse, and oxygen saturations were monitored continuously. The gastroscope was introduced through the mouth, and advanced to the third part of duodenum. The upper GI endoscopy was accomplished without difficulty. The patient tolerated the procedure well. Moderate Sedation: Moderate (conscious) sedation was administered by the endoscopy nurse and supervised by the endoscopist. The patient's oxygen saturation, heart rate, blood pressure and response to care were monitored. Scope In: 11:51:07 AM Scope Out: 11:55:39 AM Total Procedure Duration Time 0 hours 4 minutes 32 seconds Findings: A medium-sized hiatal hernia was present. A mild Schatzki ring was found in the lower third of the esophagus. One non-bleeding cratered gastric ulcer with no stigmata of bleeding was found in the stomach. The lesion was 5 mm in largest dimension. Biopsies were taken with a cold forceps for histology. The second portion of the duodenum was normal. Impression: - Medium-sized hiatal hernia. - Mild Schatzki ring. - Non-bleeding gastric ulcer with no stigmata of bleeding. Biopsied. - Normal second portion of the duodenum. - Benign-appearing esophageal tumor. - Non-obstructing non-bleeding gastric ulcer with no stigmata of bleeding. NSAID induced etiology. There is no evidence of perforation. Biopsied. - Normal second portion of the duodenum. Recommendation: - Await pathology results. - Repeat upper endoscopy in 3 months for surveillance. - Return to GI clinic in 2 weeks. - Resume regular diet today. - Use a proton pump inhibitor PO BID for 6 months. - Continue present medications. Procedure Code(s): --- Professional --- 27302, Esophagogastroduodenoscopy, flexible, transoral; with biopsy, single or multiple CPT copyright 2017 [employer]. All rights reserved. The codes documented in this report are preliminary and upon hospital coder review may be revised to meet current compliance requirements. Zhen Kirk DO 11/27/2020 12:33:17 PM This report has been signed electronically. Number of Addenda: 1 Note Initiated On: 11/27/2020 10:33 AM Addendum Number: 1 Addendum Date: 11/05/2021 4:01:42 PM MAC was used instead of moderate sedation for this patient. Zhen Kirk DO 11/05/2021 4:01:50 PM This report has been signed electronically.
--- NOTE | 2020-11-27 12:35 | OP.CCLET_ITS ---
11/05/2021 Erasmo Pierre [address] [place] [address] Re : Upper GI endoscopy procedure for Divya Cano Dear Dr. Pierre This procedure was performed on November. My impressions and recommendations are as follows: Impressions : - Medium-sized hiatal hernia. - Mild Schatzki ring. - Non-bleeding gastric ulcer with no stigmata of bleeding. Biopsied. - Normal second portion of the duodenum. - Benign-appearing esophageal tumor. - Non-obstructing non-bleeding gastric ulcer with no stigmata of bleeding. NSAID induced etiology. There is no evidence of perforation. Biopsied. - Normal second portion of the duodenum. Recommendations : - Await pathology results. - Repeat upper endoscopy in 3 months for surveillance. - Return to GI clinic in 2 weeks. - Resume regular diet today. - Use a proton pump inhibitor PO BID for 6 months. - Continue present medications. My findings are described in the full procedure note, which is enclosed. If I can be of further assistance, please feel free to contact me at . Sincerely, Zhen Kirk, 11/27/2020 12:33:17 PM This report has been signed electronically.
--- NOTE | 2020-11-27 12:35 | CASEMGMT ---
Social Work SW spoke with [facility]. Pt currently has services through the [email or web address] program and Ron Eason is her Larder Cook ([phone]). Pt has a life alert and Aid services 6 hours a week through [facility]. SW will notify [facility] at time of discharge. RANJAN Acosta
--- NOTE | 2020-11-27 12:41 | OP.COLON_ITS ---
Patient Name: Divya Cano Procedure Date: 11/27/2020 11:57 AM Date of : 1950 Age: 70 Procedure: Colonoscopy Indications: Hematochezia Providers: Zhen Kirk DO Medicines: Monitored Anesthesia Care Patient Profile: This is a 70 year old female. Refer to note in patient chart for documentation of history and physical. Patient has symptoms. The symptoms first began 01,. She is status post colonoscopy (normal) five years ago. This is a 70 year old female. Refer to note in patient chart for documentation of history and physical. Last Colonoscopy: 5 years ago. Complications: No immediate complications. Procedure: Pre-Anesthesia Assessment: - Prior to the procedure, a History and Physical was performed, and patient medications and allergies were reviewed. The patient is competent. The risks and benefits of the procedure and the sedation options and risks were discussed with the patient. All questions were answered and informed consent was obtained. Patient identification and proposed procedure were verified by the physician in the pre-procedure area. Mental Status Examination: alert and oriented. Respiratory Examination: clear to auscultation. CV Examination: normal. Prophylactic Antibiotics: The patient does not require prophylactic antibiotics. Prior Anticoagulants: The patient has taken no previous anticoagulant or antiplatelet agents. ASA Grade Assessment: II - A patient with mild systemic disease. After reviewing the risks and benefits, the patient was deemed in satisfactory condition to undergo the procedure. The anesthesia plan was to use moderate sedation / analgesia (conscious sedation). Immediately prior to administration of medications, the patient was re-assessed for adequacy to receive sedatives. The heart rate, respiratory rate, oxygen saturations, blood pressure, adequacy of pulmonary ventilation, and response to care were monitored throughout the procedure. The physical status of the patient was re-assessed after the procedure. After I obtained informed consent, the scope was passed under direct vision. Throughout the procedure, the patient's blood pressure, pulse, and oxygen saturations were monitored continuously. The colonoscope was introduced through the anus and advanced to the cecum, identified by appendiceal orifice and ileocecal valve. The colonoscopy was performed without difficulty. The patient tolerated the procedure well. The quality of the bowel preparation was adequate. Moderate Sedation: Moderate (conscious) sedation was administered by the endoscopy nurse and supervised by the endoscopist. The patient's oxygen saturation, heart rate, blood pressure and response to care were monitored. Scope In: 11:59:16 AM Scope Withdrawal Time 0 hours 6 minutes 25 seconds Scope Out: 12:21:06 PM Total Procedure Duration Time 0 hours 21 minutes 50 seconds Findings: The perianal and digital rectal examinations were normal. A 5 mm polyp was found in the proximal ascending colon. The polyp was sessile. The polyp was removed with a jumbo cold forceps. Resection and retrieval were complete. Verification of patient identification for the specimen was done by the physician using the patient's name and date. Estimated blood loss: none. Impression: - One 5 mm polyp in the proximal ascending colon, removed with a jumbo cold forceps. Resected and retrieved. - Diffuse severe inflammation was found in the left colon secondary to ischemic colitis. Biopsied. Recommendation: - Observe patient in GI recovery unit for ongoing care. - Resume regular diet today. - Continue present medications. - Await pathology results. - Repeat colonoscopy in 4 months for surveillance. - Return to GI office in 2 weeks. Procedure Code(s): --- Professional --- 98180, Colonoscopy, flexible; with biopsy, single or multiple CPT copyright 2017 [employer]. All rights reserved. The codes documented in this report are preliminary and upon medical biller coder review may be revised to meet current compliance requirements. Zhen Kirk DO 11/27/2020 12:40:38 PM This report has been signed electronically. Number of Addenda: 1 Note Initiated On: 11/27/2020 11:57 AM Addendum Number: 1 Addendum Date: 11/05/2021 4:02:01 PM MAC was used instead of moderate sedation for this patient. Zhen Kirk DO 11/05/2021 4:02:11 PM This report has been signed electronically.
--- NOTE | 2020-11-27 12:41 | OP.CCLET_ITS ---
11/05/2021 Erasmo Pierre [address] [place] [address] Re : Colonoscopy procedure for Divya Cano Dear Dr. Pierre This procedure was performed on November. My impressions and recommendations are as follows: Impressions : - One 5 mm polyp in the proximal ascending colon, removed with a jumbo cold forceps. Resected and retrieved. - Diffuse severe inflammation was found in the left colon secondary to ischemic colitis. Biopsied. Recommendations : - Observe patient in GI recovery unit for ongoing care. - Resume regular diet today. - Continue present medications. - Await pathology results. - Repeat colonoscopy in 4 months for surveillance. - Return to GI office in 2 weeks. My findings are described in the full procedure note, which is enclosed. If I can be of further assistance, please feel free to contact me at . Sincerely, Zhen Kirk, 11/27/2020 12:40:38 PM This report has been signed electronically.
[2020-11-27] MEDS: 0.9% Normal Saline 1,000 ML 15 ML IV (12:57)
--- NOTE | 2020-11-27 13:10 | SUR.PHASEI ---
Patient is still complaining of pain. This nurse was going to give her another dose of dilaudid, but her BP is only 100/42.
--- NOTE | 2020-11-27 14:25 | PCM.PN.HOSP ---
Documented by User: Beulah Estrada VENETIAN BLIND TAPE CUTTER, VENETIAN BLIND TAPE CUTTER-C 11/27/20 14:38 Subjective Subjective Patient seen and examined. Reports abdominal pain, mild nausea. States she has blood mixed in stool. Denies fever, chills Objective Data Objective Data Vital Signs: Vital Signs Temp Pulse Resp BP Pulse Ox 98.6 F 60 16 101/44 L 96 11/27/20 13:30 11/27/20 13:30 11/27/20 13:30 11/27/20 13:30 11/27/20 13:30 Oxygen Delivery Method Room Air Weight: 180 lb 9.191 oz Body Mass Index (BMI) 30.9 Intake & Output: Intake and Output for Last 24 Hours 11/25/20 11/26/20 11/27/20 23:59 23:59 23:59 Intake Total 3600 / 3600 1300 / 1300 Balance 3600 / 3600 1300 / 1300 Lab / Micro Data Result Diagrams: 11/27/20 06:44 11/27/20 06:44 Labs: Laboratory Results - last 24 hr 11/26/20 16:47: Lactic Acid 1.3 11/26/20 19:10: Hgb 12.6, Hct 40.3 11/27/20 00:19: Hgb 12.2, Hct 38.4 11/27/20 06:44: WBC 11.2 H, RBC 3.94 L, Hgb 12.0, Hct 39.1, MCV 99.2 H D, MCH 30.5, MCHC 30.7 L D, RDW Std Deviation 53.5 H, RDW Coeff of Neymar 14.5, Plt Count 140 L, MPV 12.1 H, Immature Gran % (Auto) 0.500, Neut % (Auto) 74.0 H, Lymph % (Auto) 16.4 L, [place] % (Auto) 7.3, Eos % (Auto) 1.6, Baso % (Auto) 0.2, Absolute Neuts (auto) 8.3 H, Absolute Lymphs (auto) 1.84, Nucleated RBC % 0 11/27/20 06:44: Sodium 140, Potassium 3.1 L, Chloride 113 H, Carbon Dioxide 22.0, Anion Gap 5, BUN 8, Creatinine 0.82, Estim Creat Clear Calc 55.13, Est GFR (MDRD) Af Amer 88, Est GFR (MDRD) Non-Af 73, BUN/Creatinine Ratio 9.7 L, Glucose 116 H, Calcium 7.2 L, Total Bilirubin 0.70, AST 53 H, ALT 60 H, Alkaline Phosphatase 96, Total Protein 5.3 L, Albumin 2.3 L, Globulin 3.0, Albumin/Globulin Ratio 0.8 L 11/27/20 06:44: PT 23.7 H, INR 2.2 Micro: Microbiology 11/26/20 02:25 Stool Stool Lactoferrin - Final 11/26/20 02:25 Stool Enteric Bacteriology - Final 11/26/20 02:25 Stool C. difficile DNA Amplification - Final 11/27/20 02:25 Stool Stool Occult Blood (ALLA) - Final Occult Blood Positive Physical Exam Const alert, oriented x3 and no apparent distress Orientation / Consciousness: awake, oriented to person, oriented to place and oriented to time HEENT normocephalic and moist oral mucous membranes Eyes PERRL, EOMs intact bilaterally and conjunctivae normal Neck no lymphadenopathy Resp normal respiratory effort and clear to auscultation bilaterally Cardio regular rate, regular rhythm and no murmurs Peripheral Pulses: pulses 2+ throughout GI normal to inspection, nondistended, normoactive bowel sounds and non-distended Palpation: tender Extremity normal to inspection Skin no rashes or lesions noted Lesions: no lesions Rashes: no rashes Trauma: no lacerations or abrasions Neuro CN's II-XII intact bilaterally, no focal motor deficits, no sensory deficits noted and deep tendon reflexes 2+ bilaterally Psych mental status grossly normal and affect normal Assessment & Plan Assessment/Plan (1) Acute colitis: PLAN: 1. Acute colitis-GI consulted. Underwent EGD and colonoscopy. Colonoscopy demonstrated diffuse severe inflammation of the left colon secondary to ischemic colitis, biopsied. EGD showed nonbleeding gastric ulcer, biopsied. Continue PPI. Resume diet. On IV Cipro and IV Flagyl. Stool for C. difficile negative. Ova and parasites pending. Occult blood positive. 2. Acute GI bleed-EGD/colonoscopy as noted above. Continue PPI. Hemoglobin stable. 3. Hypokalemia-replace per protocol, trend BMP. 4. Acute kidney injury-resolved. 5. Lactic acidosis-resolved. 6. CAD with history of CABG, history of stent- continue medical management. 7. Paroxysmal atrial fibrillation-Coumadin on hold. Continue rate control regimen. 8. PAD-on aspirin, statin. 9. Hyperlipidemia-continue statin. 10. Sick sinus syndrome status post pacemaker placement DVT prophylaxis- SCDs This patient was seen by STACY Hopkins under the supervision of Dr. Curtis. Documented by User: Dr. Dimple Curtis MD 11/27/20 15:40 Objective Data Lab / Micro Data Result Diagrams: 11/27/20 06:44 11/27/20 06:44 Charges/Coding Addendum Addendum: This patient was seen in conjunction with Beulah Estrada. I have independently interviewed and examined the patient and reviewed pertinent historical, laboratory, and other data. I have reviewed her note and concur with her documentation Patient was seen and examined. She was unable to complete her bowel prep. EGD shows medium size hiatal hernia, mild Schatzki ring, nonbleeding gastric ulcer with no stigmata of bleeding, biopsied, benign appearing esophageal tumor. Colonoscopy shows diffuse severe inflammation in the left colon secondary to ischemic colitis. One 5 mm polyp in the first part ascending colon. Stool for enteric panel was negative. Physical Exam: Gen: Looks in some discomfort, not pale, not jaundiced CVS:HS I +II, regular, no murmurs RESP: Diminished at lung bases GI: BS present and normal, soft, nontender, no palpable organs EXT:No edema ASSESSMENT: 1. Acute GI bleed 2. Acute ischemic colitis 3. Nonbleeding gastric ulcer 4. Esophageal tumor 5. Hiatal hernia Plan: DC IV antibiotics Continue on PPI twice daily Continue rest of his other medications Follow-up on biopsy Visit Charges Inpatient E&M: 91591 [facility] Hosp L3
--- NOTE | 2020-11-27 14:50 | CASEMGMT ---
RN CM Face to Face with patient for initial transition planning/care coordination assessment. RN CM introduced self and role at [facility]. Patient lying in bed, alert and oriented. Patient willing to participate in assessment and is able to answer all questions appropriately. Care providers, pharmacy, and demographics verified. Patient wishes to discharge home, denies need for home health at this time. Patient states she has no further needs or concerns at this time. CM to follow for discharge planning needs that may arise. PCP: Ignacio Specialists: Rupert, stogy roller; Yony, vascular; Rusty, [employer] Preferred Pharmacy: [facility] Insurance: Retrieve [facility] Prescription Benefit: yes Living Will/HPOA: yes, Lazara Fagna HPOA LNOK: sister Living Arrangements: patient lives alone in a basement apartment with 6 steps and railing to enter the home. Patient states she is independent for self care, has aides for household Transportation: [facility] transport DME/HHC: Patient states she has shower chair, cane, walker, medical alert at home. Patient has previously been to [facility]. Disposition Plan: Patient to discharge home with family support and follow-up plans in place. Socorro MEADE, RN, CM
[2020-11-27] MEDS: Potassium Chloride Oral Tablet 20 MEQ 40 MEQ PO (15:24)
[2020-11-27] MEDS: Cholecalciferol (VIT D3) 25 MCG TABLET (1,000 UNITS) 50 MCG PO (15:25)
[2020-11-27] MEDS: Tolterodine Tartrate 2 MG CAP.SA PO (15:25)
[2020-11-27] MEDS: Pantoprazole Sodium 40 MG Tablet PO ×2 (15:26→21:36)
[2020-11-27] MEDS: Folic Acid 1 MG Tablet 0.5 MG PO (15:26)
[2020-11-27] MEDS: Potassium Chloride Oral Tablet 10 MEQ 20 MEQ PO (15:27)
[2020-11-27] MEDS: Cyanocobalamin 500 MCG Tablet PO (15:35)
[2020-11-27] MEDS: Isosorbide Mononitrate 20 MG Tablet 10 MG PO (16:04)
[2020-11-27] MEDS: Montelukast 10 MG Tablet PO (21:36)
[2020-11-27] MEDS: Pravastatin 80 MG Tablet PO (21:36)
[2020-11-28] MEDS: Metoclopramide 10 MG/2 ML Vial 5 MG IV ×2 (01:00→05:13)
[2020-11-28 03:30] VITALS: BP 107/37; PULSE 60; RESP 16; TEMP 36.7; O2SAT 95
[2020-11-28 05:15] LABS: Absolute Lymphocyte Count 2.44 X10^3/uL (0.83-4.51); Absolute Neutrophil Count 6.1 X10^3/uL (2.0-7.7); Basophil# 0.03 X10^3/uL; Basophil% 0.3 % (0-1); Eosinophil# 0.39 X10^3/uL; Hematocrit 38.2 % (37-47); Hemoglobin 11.9 g/dL (12.0-15.0); Lymphocyte # 2.44 X10^3/ul (0.83-4.51); Lymphocyte % 25.1 % (19-41); Mean Corp Hgb Conc 31.2 g/dL (32-36); Mean Corpuscular Hgb 30.3 pg (27.0-32.0); Mean Corpuscular Volume 97.2 fL (81-99); Monocyte# 0.73 X10^3/uL; Monocyte% 7.5 % (0-10); NRBC Flagged by Analyzer 0 % (0-5); Neutrophil # 6.09 X10^3/uL (2.7-7.7); Neutrophil % 62.8 % (47-70); Platelet Count 145 K/mm3 (150-450); RBC Distribution Width CV 14.6 % (11.6-14.6); Red Blood Count 3.93 M/mm3 (4.2-5.4); White Blood Count 9.7 K/mm3 (4.4-11.0)
[2020-11-28 05:47] LABS: Anion Gap 4 (5-15); BUN 4 mg/dL (7-18); BUN/Creat Ratio 4.7 RATIO (10-20); Calcium,Total 7.4 mg/dL (8.5-10.1); Chloride 113 mmol/L (98-107); Creatinine, Serum 0.86 mg/dL (0.55-1.02); EST Glomerular Filtration Rate 69 mL/min (>60); Est Glom Filt Rate - Afr Amer 84 mL/min (>60); Estimated Creatinine Clearance 52.56 ml/min; Glucose 105 mg/dL (74-106); Potassium 3.4 mmol/L (3.5-5.1); Sodium Level 142 mmol/L (136-145)
[2020-11-28 07:35] VITALS: PULSE 60; RESP 16; O2SAT 95
[2020-11-28] MEDS: Ipratropium/Albuterol Sulfate 3 ML AMPUL.NEB INHALATION (07:35)
--- NOTE | 2020-11-28 07:56 | CPS ---
Approximately 4 min into rx pt refused to finish. Pt sated it was drying her throat out.
[2020-11-28 08:29] VITALS: BP 103/46; PULSE 59; RESP 18; TEMP 36.6; O2SAT 98
[2020-11-28] MEDS: Acetaminophen 325 MG Tablet 650 MG PO (08:36)
[2020-11-28] MEDS: Folic Acid 1 MG Tablet 0.5 MG PO (08:36)
[2020-11-28] MEDS: Cholecalciferol (VIT D3) 25 MCG TABLET (1,000 UNITS) 50 MCG PO (08:36)
[2020-11-28] MEDS: Tolterodine Tartrate 2 MG CAP.SA PO (08:36)
[2020-11-28] MEDS: Potassium Chloride Oral Tablet 20 MEQ 40 MEQ PO (08:36)
[2020-11-28 08:37] VITALS: BP 103/46; PULSE 59
[2020-11-28] MEDS: Cyanocobalamin 500 MCG Tablet PO (08:37)
[2020-11-28] MEDS: Pantoprazole Sodium 40 MG Tablet PO (08:37)
--- NOTE | 2020-11-28 09:34 | EX.PCM.PN.GI ---
Subjective Subjective Patient underwent an EGD and colonoscopy yesterday. She was discovered to have mild duodenitis. She was also discovered to have severe ischemic colitis involving mostly left-sided colon stent into the transverse colon. She is having a little bit of cramping but she is tolerating a diet. She is not having any bleeding at this time. She is not nauseous. She is actually having more formed bowel movements without blood. Objective Data Objective Data Vital Signs: Vital Signs Temp Pulse Resp BP Pulse Ox 97.9 F 59 L 18 103/46 L 98 11/28/20 08:29 11/28/20 08:37 11/28/20 08:29 11/28/20 08:37 11/28/20 08:29 Oxygen Delivery Method Room Air Weight: 180 lb 9.191 oz Body Mass Index (BMI) 30.9 Intake & Output: Intake and Output for Last 24 Hours 11/26/20 11/27/20 11/28/20 23:59 23:59 23:59 Intake Total 3600 / 3600 1625.5 / 1625.5 120 / 120 Balance 3600 / 3600 1625.5 / 1625.5 120 / 120 Lab / Micro Data Result Diagrams: 11/28/20 05:05 11/28/20 05:05 Labs: Laboratory Results - last 24 hr 11/28/20 05:05: WBC 9.7, RBC 3.93 L, Hgb 11.9 L, Hct 38.2, MCV 97.2, MCH 30.3, MCHC 31.2 L, RDW Std Deviation 53.0 H, RDW Coeff of Neymar 14.6, Plt Count 145 L, MPV 12.0, Immature Gran % (Auto) 0.300, Neut % (Auto) 62.8, Lymph % (Auto) 25.1, [place] % (Auto) 7.5, Eos % (Auto) 4.0, Baso % (Auto) 0.3, Absolute Neuts (auto) 6.1, Absolute Lymphs (auto) 2.44, Nucleated RBC % 0 11/28/20 05:05: Sodium 142, Potassium 3.4 L, Chloride 113 H, Carbon Dioxide 25.0, Anion Gap 4 L, BUN 4 L, Creatinine 0.86, Estim Creat Clear Calc 52.56, Est GFR (MDRD) Af Amer 84, Est GFR (MDRD) Non-Af 69, BUN/Creatinine Ratio 4.7 L, Glucose 105, Calcium 7.4 L Micro: Microbiology 11/26/20 02:25 Stool Stool Lactoferrin - Final 11/26/20 02:25 Stool Enteric Bacteriology - Final 11/26/20 02:25 Stool C. difficile DNA Amplification - Final 11/27/20 02:25 Stool Stool Occult Blood (ALLA) - Final Occult Blood Positive Physical Exam Const alert General Appearance: cooperative Orientation / Consciousness: oriented to person HEENT hearing grossly normal bilaterally Head and Scalp: normal to inspection Face and Sinus: face symmetric Nose: external nose normal Mouth: oral and palatal mucosa normal Eyes conjunctivae normal General Eye: normal appearance of both eyes Neck full ROM General: normal visual inspection Lymph Lymphatic: no lymphadenopathy noted Chest inspection of chest normal and palpation of chest normal Chest: symmetrical chest wall rise Resp normal respiratory effort Effort and Inspection: able to speak in complete sentences Cardio regular rate GI non-distended GI Narrative: Mild tenderness in the abdomen Percussion: normal to percussion Rectal Exam: deferred Neuro Speech: speech normal Gait (Neuro): normal gait Assessment & Plan Assessment/Plan (1) Ischemic colitis: PLAN: Ischemic colitis is acute and there were no signs of chronic ischemic colitis. I suspect that this was from acute diarrhea and spasm and the patient did has peripheral vascular disease. This is treated with antispasmodics. There is no role for aspirin or anticoagulation to prevent a recurrence of acute ischemic colitis. There is also no role for antibiotics. As long as she tolerates a diet and does not get constipated, along with maintaining a normal blood pressure that is the best and fastest way for her to recover. She should take dicyclomine 10 mg 3 times daily and follow-up in the office in about a week. Charges/Coding Visit Charges Inpatient E&M: 33380 Subs Hosp L2
--- NOTE | 2020-11-28 10:44 | PCM.DC ---
Discharge Instructions Diet Discharge Diet: Light diet - advance as tolerated Activity Discharge Activity: Return to Normal Activity Dressing / Incision Call your doctor if you observe: Shortness of breath, Dizziness, Chest pain and Uncontrolled pain Follow Up Care Test Results: Test results from this visit will be discussed in further detail at your follow-up appointment, if applicable. Discharge Plan Admission Admit Date/Time: 11/26/20 10:46 Primary Reason for Your Visit: Ischemic colitis Attending Provider: Dimple Curtis Primary Care Provider: Erasmo Pierre Discharge Orders/Prescriptions Prescriptions: New dicyclomine 10 mg capsule 10 mg PO TID Qty: 90 RF: 0 Continued montelukast 10 mg tablet 10 mg PO QPM RF: 0 benzonatate 100 mg capsule 100 mg PO DAILY RF: 0 vitamin [id number] acid 500-400 mcg tablet 1 tab PO DAILY RF: 0 All Day Allergy (cetirizine) 10 mg capsule 10 mg PO DAILY RF: 0 ferrous sulfate-vitamin C 39-75 mg tablet 1 tab PO .Daily RF: 0 (DME) handicap placard See Rx Instructions .Route .MEDSUPPLY Qty: 1 RF: 0 potassium chloride 10 mEq tablet,ER particles/crystals 20 meq PO DAILY Qty: 180 RF: 3 pravastatin 80 mg tablet 80 mg PO QHS Qty: 90 RF: 3 aspirin 81 MG tablet,chewable 81 mg PO DAILY@0800 RF: 0 benzonatate 100 mg capsule 200 mg PO QHS RF: 0 cholecalciferol (vitamin D3) [Vitamin D3] 50 mcg (2,000 unit) Capsule 50 mcg PO DAILY RF: 0 enalapril maleate 2.5 mg tablet 1.25 mg PO DAILY RF: 0 warfarin 2.5 mg tablet 2.5 mg PO MOTUWETH RF: 0 warfarin 5 mg tablet 5 mg PO SUFRSA RF: 0 albuterol sulfate [Ventolin HFA] 90 mcg/actuation HFA aerosol inhaler 2 puff INHALATION Q6H PRN (Reason: sob) RF: 0 Stiolto Respimat 2.5-2.5 mcg/actuation mist 2 puff INHALATION DAILY RF: 0 nitroglycerin 0.4 mg tablet, sublingual 0.4 mg SUBLINGUAL Q5-15M PRN (Reason: Chest Pain) RF: 0 pantoprazole 40 mg tablet,delayed release (DR/EC) 40 mg PO DAILY RF: 0 Toviaz 4 mg tablet extended release 24 hr 4 mg PO DAILY RF: 0 isosorbide mononitrate 10 mg tablet 10 mg tablet 10 mg PO BID Qty: 180 RF: 3 metoprolol tartrate 25 mg tablet 12.5 mg PO BID Qty: 90 RF: 3 Referrals / Follow Up: Erasmo Pierre MD [Primary Care Provider] - In 1 Week Zhen Kirk DO [STAFF PHYSICIAN] - In 1 Week Disposition Disposition (needs filled in before D/C Order can be placed): Home, Self Care
--- NOTE | 2020-11-28 10:49 | PCM.DC.SUM ---
Documented by User: Beulah Estrada NP, [employer] 11/28/20 11:11 Providers Date of Admission: 11/26/20 Date of Discharge: 11/28/20 Primary Care Physician: Dr. Erasmo Pierre MD Consultations 11/26/20 15:43 Consult: Gastroenterology Routine Consulting Provider: [facility] Reason for Consult: GI bleed, colitis EMERGENT Consult: No MD Notified: Yes Date Notified: 11/26/20 Time Notified: 15:43 Method of Notification: Verbal Reason For Visit: ACUTE COLITIS Diagnosis Discharge Diagnosis (1) Ischemic colitis: Status: Acute Code(s): K55.9 - Vascular disorder of intestine, unspecified Medications at Discharge Home Medications aspirin 81 mg PO DAILY@0800 08/18/18 montelukast 10 mg tablet 10 mg PO QPM 02/22/19 albuterol sulfate 90 mcg/actuation aerosol inhaler 2 puff INHALATION Q6H PRN 03/05/19 fesoterodine 4 mg tablet,extended release 24 hr 4 mg PO DAILY 03/05/19 nitroglycerin 0.4 mg sublingual tablet 0.4 mg SUBLINGUAL Q5-15M PRN 03/05/19 pantoprazole 40 mg tablet,delayed release 40 mg PO DAILY tab 03/05/19 tiotropium 2.5 mcg-olodaterol 2.5 mcg/actuation mist for inhalation 2 puff INHALATION DAILY 03/05/19 benzonatate 100 mg capsule 100 mg PO DAILY 09/20/19 isosorbide mononitrate 10 mg tablet 10 mg PO BID #180 tab 01/01/20 metoprolol tartrate 25 mg tablet 12.5 mg PO BID #90 tab 01/03/20 cetirizine 10 mg capsule 10 mg PO DAILY 10/13/20 ferrous sulfate-vitamin C 39 mg-75 mg tablet 1 tab PO .Daily tab 10/13/20 handicap placard #1 ea 10/13/20 potassium chloride 10 mEq tablet,extended release(part/cryst) 20 meq PO DAILY #180 tab 10/13/20 pravastatin 80 mg tablet 80 mg PO QHS #90 tab 10/13/20 vitamin B12 500 mcg-folic acid 400 mcg tablet 1 tab PO DAILY 10/13/20 benzonatate 200 mg PO QHS 11/26/20 cholecalciferol (vitamin D3) [Vitamin D3] 50 mcg PO DAILY 11/26/20 enalapril maleate 1.25 mg PO DAILY 11/26/20 warfarin 2.5 mg PO MOTUWETH 11/26/20 warfarin 5 mg PO SUFRSA 11/26/20 dicyclomine 10 mg PO TID #90 cap 11/28/20 Hospital Course Operations None Procedures EGD Summary of Care Provided Minutes Spent on Discharge: 35 Hospital Course: Patient is a 70-year-old female 11/26/2020 due to diarrhea and bloody stool. 1. Acute ischemic colitis-GI consulted. Underwent EGD and colonoscopy. Colonoscopy demonstrated diffuse severe inflammation of the left colon secondary to ischemic colitis, biopsied. EGD showed nonbleeding gastric ulcer, biopsied. Continue PPI. Antibiotics discontinued. Continue diet as tolerated. Stool for C. difficile negative. Ova and parasites pending. Occult blood positive. Follow-up with PCP in 1 week. Follow-up with GI in 2 weeks. Discharged on dicyclomine 10 mg 3 times daily at discharge per GI recommendations. 2. Acute GI bleed-EGD/colonoscopy as noted above. Continue PPI. Hemoglobin stable. 3. Hypokalemia-replaced per protocol. 4. Acute kidney injury-resolved. 5. Lactic acidosis-resolved. 6. CAD with history of CABG, history of stent- continue medical management. 7. Paroxysmal atrial fibrillation-Continue Coumadin. Continue rate control regimen. 8. PAD-on aspirin, statin. 9. Hyperlipidemia-continue statin. 10. Sick sinus syndrome status post pacemaker placement Physical Exam Const alert, oriented x3 and no apparent distress Orientation / Consciousness: awake, oriented to person, oriented to place and oriented to time HEENT normocephalic and moist oral mucous membranes Eyes PERRL, EOMs intact bilaterally and conjunctivae normal Neck no lymphadenopathy Resp normal respiratory effort and clear to auscultation bilaterally Cardio regular rate, regular rhythm and no murmurs Peripheral Pulses: pulses 2+ throughout GI normal to inspection, nondistended, normoactive bowel sounds and non-distended Palpation: tender Extremity normal to inspection Skin no rashes or lesions noted Lesions: no lesions Rashes: no rashes Trauma: no lacerations or abrasions Neuro CN's II-XII intact bilaterally, no focal motor deficits, no sensory deficits noted and deep tendon reflexes 2+ bilaterally Psych mental status grossly normal and affect normal Patient seen and examined prior to discharge. Physical assessment as noted above. Patient is stable for discharge with follow up recommendations as noted above. This patient was seen by STACY Hopkins under the supervision of Dr. Curtis. Weight / BMI Weight Weight: 180 lb 9.191 oz Body Mass Index (BMI) 30.9 ABG / Lab / Microbiology Data Result Diagrams: 11/28/20 05:05 11/28/20 05:05 Laboratory: Laboratory Results - last 24 hr 11/28/20 05:05: WBC 9.7, RBC 3.93 L, Hgb 11.9 L, Hct 38.2, MCV 97.2, MCH 30.3, MCHC 31.2 L, RDW Std Deviation 53.0 H, RDW Coeff of Neymar 14.6, Plt Count 145 L, MPV 12.0, Immature Gran % (Auto) 0.300, Neut % (Auto) 62.8, Lymph % (Auto) 25.1, [place] % (Auto) 7.5, Eos % (Auto) 4.0, Baso % (Auto) 0.3, Absolute Neuts (auto) 6.1, Absolute Lymphs (auto) 2.44, Nucleated RBC % 0 11/28/20 05:05: Sodium 142, Potassium 3.4 L, Chloride 113 H, Carbon Dioxide 25.0, Anion Gap 4 L, BUN 4 L, Creatinine 0.86, Estim Creat Clear Calc 52.56, Est GFR (MDRD) Af Amer 84, Est GFR (MDRD) Non-Af 69, BUN/Creatinine Ratio 4.7 L, Glucose 105, Calcium 7.4 L Microbiology: Microbiology 11/26/20 02:25 Stool Stool Lactoferrin - Final 11/26/20 02:25 Stool Enteric Bacteriology - Final 11/26/20 02:25 Stool C. difficile DNA Amplification - Final 11/27/20 02:25 Stool Stool Occult Blood (ALLA) - Final Occult Blood Positive D/C Instructions Discharge Diet: Light diet - advance as tolerated Call your doctor if you observe: Shortness of breath, Dizziness, Chest pain and Uncontrolled pain Meaningful Use Info Meaningful Use Diagnoses (Choose all that apply): None applicable Discharge Plan Admission Admit Date/Time: 11/26/20 10:46 Primary Reason for Your Visit: Ischemic colitis Attending Provider: Dimple Curtis Primary Care Provider: Erasmo Pierre Discharge Orders/Prescriptions Prescriptions: New dicyclomine 10 mg capsule 10 mg PO TID Qty: 90 RF: 0 Continued montelukast 10 mg tablet 10 mg PO QPM RF: 0 benzonatate 100 mg capsule 100 mg PO DAILY RF: 0 vitamin [id number] acid 500-400 mcg tablet 1 tab PO DAILY RF: 0 All Day Allergy (cetirizine) 10 mg capsule 10 mg PO DAILY RF: 0 ferrous sulfate-vitamin C 39-75 mg tablet 1 tab PO .Daily RF: 0 (DME) handicap placard See Rx Instructions .Route .MEDSUPPLY Qty: 1 RF: 0 potassium chloride 10 mEq tablet,ER particles/crystals 20 meq PO DAILY Qty: 180 RF: 3 pravastatin 80 mg tablet 80 mg PO QHS Qty: 90 RF: 3 aspirin 81 MG tablet,chewable 81 mg PO DAILY@0800 RF: 0 benzonatate 100 mg capsule 200 mg PO QHS RF: 0 cholecalciferol (vitamin D3) [Vitamin D3] 50 mcg (2,000 unit) Capsule 50 mcg PO DAILY RF: 0 enalapril maleate 2.5 mg tablet 1.25 mg PO DAILY RF: 0 warfarin 2.5 mg tablet 2.5 mg PO MOTUWETH RF: 0 warfarin 5 mg tablet 5 mg PO SUFRSA RF: 0 albuterol sulfate [Ventolin HFA] 90 mcg/actuation HFA aerosol inhaler 2 puff INHALATION Q6H PRN (Reason: sob) RF: 0 Stiolto Respimat 2.5-2.5 mcg/actuation mist 2 puff INHALATION DAILY RF: 0 nitroglycerin 0.4 mg tablet, sublingual 0.4 mg SUBLINGUAL Q5-15M PRN (Reason: Chest Pain) RF: 0 pantoprazole 40 mg tablet,delayed release (DR/EC) 40 mg PO DAILY RF: 0 Toviaz 4 mg tablet extended release 24 hr 4 mg PO DAILY RF: 0 isosorbide mononitrate 10 mg tablet 10 mg tablet 10 mg PO BID Qty: 180 RF: 3 metoprolol tartrate 25 mg tablet 12.5 mg PO BID Qty: 90 RF: 3 Referrals / Follow Up: Erasmo Pierre MD [Primary Care Provider] - In 1 Week Zhen Kirk DO [STAFF PHYSICIAN] - In 1 Week Disposition Disposition (needs filled in before D/C Order can be placed): Home, Self Care Documented by User: Dr. Dimple Curtis MD 11/28/20 12:57 Providers Date of Admission: 11/26/20 Reason For Visit: ACUTE COLITIS Medications at Discharge Home Medications aspirin 81 mg PO DAILY@0800 08/18/18 montelukast 10 mg tablet 10 mg PO QPM 02/22/19 albuterol sulfate 90 mcg/actuation aerosol inhaler 2 puff INHALATION Q6H PRN 03/05/19 fesoterodine 4 mg tablet,extended release 24 hr 4 mg PO DAILY 03/05/19 nitroglycerin 0.4 mg sublingual tablet 0.4 mg SUBLINGUAL Q5-15M PRN 03/05/19 pantoprazole 40 mg tablet,delayed release 40 mg PO DAILY tab 03/05/19 tiotropium 2.5 mcg-olodaterol 2.5 mcg/actuation mist for inhalation 2 puff INHALATION DAILY 03/05/19 benzonatate 100 mg capsule 100 mg PO DAILY 09/20/19 isosorbide mononitrate 10 mg tablet 10 mg PO BID #180 tab 01/01/20 metoprolol tartrate 25 mg tablet 12.5 mg PO BID #90 tab 01/03/20 cetirizine 10 mg capsule 10 mg PO DAILY 10/13/20 ferrous sulfate-vitamin C 39 mg-75 mg tablet 1 tab PO .Daily tab 10/13/20 handicap placard #1 ea 10/13/20 potassium chloride 10 mEq tablet,extended release(part/cryst) 20 meq PO DAILY #180 tab 10/13/20 pravastatin 80 mg tablet 80 mg PO QHS #90 tab 10/13/20 vitamin B12 500 mcg-folic acid 400 mcg tablet 1 tab PO DAILY 10/13/20 benzonatate 200 mg PO QHS 11/26/20 cholecalciferol (vitamin D3) [Vitamin D3] 50 mcg PO DAILY 11/26/20 enalapril maleate 1.25 mg PO DAILY 11/26/20 warfarin 2.5 mg PO MOTUWETH 11/26/20 warfarin 5 mg PO SUFRSA 11/26/20 dicyclomine 10 mg PO TID #90 cap 11/28/20 ABG / Lab / Microbiology Data Result Diagrams: 11/28/20 05:05 11/28/20 05:05 Discharge Plan Admission Admit Date/Time: 11/26/20 10:46 Primary Reason for Your Visit: Ischemic colitis Attending Provider: Dimple Curtis Primary Care Provider: Erasmo Pierre Discharge Orders/Prescriptions Prescriptions: New dicyclomine 10 mg capsule 10 mg PO TID Qty: 90 RF: 0 Continued montelukast 10 mg tablet 10 mg PO QPM RF: 0 benzonatate 100 mg capsule 100 mg PO DAILY RF: 0 vitamin V93-ueknk acid 500-400 mcg tablet 1 tab PO DAILY RF: 0 All Day Allergy (cetirizine) 10 mg capsule 10 mg PO DAILY RF: 0 ferrous sulfate-vitamin C 39-75 mg tablet 1 tab PO .Daily RF: 0 (DME) handicap placard See Rx Instructions .Route .MEDSUPPLY Qty: 1 RF: 0 potassium chloride 10 mEq tablet,ER particles/crystals 20 meq PO DAILY Qty: 180 RF: 3 pravastatin 80 mg tablet 80 mg PO QHS Qty: 90 RF: 3 aspirin 81 MG tablet,chewable 81 mg PO DAILY@0800 RF: 0 benzonatate 100 mg capsule 200 mg PO QHS RF: 0 cholecalciferol (vitamin D3) [Vitamin D3] 50 mcg (2,000 unit) Capsule 50 mcg PO DAILY RF: 0 enalapril maleate 2.5 mg tablet 1.25 mg PO DAILY RF: 0 warfarin 2.5 mg tablet 2.5 mg PO MOTUWETH RF: 0 warfarin 5 mg tablet 5 mg PO SUFR RF: 0 albuterol sulfate [Ventolin HFA] 90 mcg/actuation HFA aerosol inhaler 2 puff INHALATION Q6H PRN (Reason: sob) RF: 0 Stiolto Respimat 2.5-2.5 mcg/actuation mist 2 puff INHALATION DAILY RF: 0 nitroglycerin 0.4 mg tablet, sublingual 0.4 mg SUBLINGUAL Q5-15M PRN (Reason: Chest Pain) RF: 0 pantoprazole 40 mg tablet,delayed release (DR/EC) 40 mg PO DAILY RF: 0 Toviaz 4 mg tablet extended release 24 hr 4 mg PO DAILY RF: 0 isosorbide mononitrate 10 mg tablet 10 mg tablet 10 mg PO BID Qty: 180 RF: 3 metoprolol tartrate 25 mg tablet 12.5 mg PO BID Qty: 90 RF: 3 Referrals / Follow Up: Erasmo Pierre MD [Primary Care Provider] - In 1 Week FriendZhen DO [STAFF PHYSICIAN] - In 1 Week Disposition Disposition (needs filled in before D/C Order can be placed): Home, Self Care Charges/Coding Addendum Addendum: This patient was seen in conjunction with Beulah Estrada. I have independently interviewed and examined the patient and reviewed pertinent historical, laboratory, and other data. I have reviewed her note and concur with her documentation 70-year-old female who comes in with complaints of abdominal discomfort, hematochezia. [facility] GI was consulted. She underwent EGD and colonoscopy that showed mild duodenitis, nonbleeding gastric ulcer, severe ischemic colitis of the left colon/transverse colon. Patient continued to do well. She will follow-up with GI in the outpatient as scheduled Physical Exam: Visit Charges Inpatient E&M: 58921 Disch Hosp
--- NOTE | 2020-11-28 12:40 | CASEMGMT ---
Social Work Discharge information faxed to [facility] and a call placed informing of discharge today. RANJAN Acosta
--- NOTE | 2020-12-01 14:50 | CASEMGMT ---
RN CM Discharge Follow-up Phone Call: REYN: aR Strata: 3 Call Date: 12/01/20 Discharge Date: 11/28/20 Time of Call: 1450 Duration: 1 min Admitting Diagnosis: Acute Colitis RN OLIVER attempted to complete follow-up phone call after recent hospitalization. No answer, voice message left with return contact information.
== END 2020-11-28 11:30 | disposition home or self-care (01) | DRG 394 ==
LOC: ED 10:32 → MS2 12:16
PROVIDERS: Internal Medicine Gastroenterology; Nurse Practitioner Family; Admitting Provider Internal Medicine; Emergency Provider Emergency Medicine; PCP Family Medicine; Visit Provider Internal Medicine
PROC: 0DJD8ZZ Inspection of Lower Intestinal Tract, Via Natural or Artificial Opening Endoscopic (ICD-10-PCS; CPT 45378; principal; 2020-11-27 11:10)
DX: K55.039 Acute (reversible) ischemia of large intestine, extent unspecified (principal); N17.9 Acute kidney failure, unspecified; E87.2 Acidosis; K25.9 Gastric ulcer, unspecified as acute or chronic, without hemorrhage or perforation; K29.80 Duodenitis without bleeding; K44.9 Diaphragmatic hernia without obstruction or gangrene; K22.2 Esophageal obstruction; E87.6 Hypokalemia; D12.2 Benign neoplasm of ascending colon; D49.0 Neoplasm of unspecified behavior of digestive system; I25.10 Atherosclerotic heart disease of native coronary artery without angina pectoris; I48.0 Paroxysmal atrial fibrillation; Z79.01 Long term (current) use of anticoagulants; I73.9 Peripheral vascular disease, unspecified; E78.5 Hyperlipidemia, unspecified; E66.9 Obesity, unspecified; Z68.30 Body mass index [BMI] 30.0-30.9, adult; Z95.0 Presence of cardiac pacemaker; Z95.1 Presence of aortocoronary bypass graft; Z95.5 Presence of coronary angioplasty implant and graft; Z79.899 Other long term (current) drug therapy; Z87.891 Personal history of nicotine dependence
CPT/HCPCS: 36415; 74177; 80048; 80053; 82274; 83605; 83630; 84484; 85014; 85018; 85025; 85610; 87040; 87177; 87209; 87493; 87506; 88305; 88342; 93005; 94640; 99251; 99285; J7030; J7050; Q9967; A4216; G0463; J0744; J2405

== ENCOUNTER → 2020-12-17 11:54 | Outpatient (CLI) | payer MEDICARE, MEDICAID, SELFPAY ==
[2020-12-17 14:55] LABS: Hematocrit 45.3 % (37-47); Hemoglobin 14.4 g/dL (12.0-15.0); Mean Corp Hgb Conc 31.8 g/dL (32-36); Mean Corpuscular Hgb 30.5 pg (27.0-32.0); Mean Platelet Vol. 13.1 fl (6.2-12.0); Platelet Count 216 K/mm3 (150-450); RBC Distribution Width CV 13.4 % (11.6-14.6); RBC Distribution Width SD 47.8 fl (35.1-43.9); Red Blood Count 4.72 M/mm3 (4.2-5.4); White Blood Count 8.7 K/mm3 (4.4-11.0)
[2020-12-17 15:13] LABS: Anion Gap 5 (5-15); BUN 11 mg/dL (7-18); BUN/Creat Ratio 10.3 RATIO (10-20); Calcium,Total 8.5 mg/dL (8.5-10.1); Chloride 106 mmol/L (98-107); Creatinine, Serum 1.07 mg/dL (0.55-1.02); EST Glomerular Filtration Rate 54 mL/min (>60); Est Glom Filt Rate - Afr Amer 65 mL/min (>60); Glucose 101 mg/dL (74-106); Potassium 3.8 mmol/L (3.5-5.1); Sodium Level 138 mmol/L (136-145)
== END ==
PROVIDERS: PCP Family Medicine; Referring Provider Family Medicine; Visit Provider Nurse Practitioner Family
DX: D62 Acute posthemorrhagic anemia (principal); K55.9 Vascular disorder of intestine, unspecified
CPT/HCPCS: 36415; 80048; 85027

== ENCOUNTER 2021-05-05 13:50 | Outpatient (CLI) | payer MEDICARE, MEDICAID, SELFPAY ==
[2021-05-05 14:02] LABS: Mucous, Urine 0 SEEN /hpf (<or=2+)
[2021-05-05 15:33] LABS: Absolute Neutrophil Count 5.9 X10^3/uL (2.0-7.7); Basophil# 0.05 X10^3/uL; Basophil% 0.6 % (0-1); Eosinophil# 0.19 X10^3/uL; Eosinophils% 2.2 % (0-5); Hematocrit 45.2 % (37-47); Hemoglobin 14.6 g/dL (12.0-15.0); Lymphocyte % 21.7 % (19-41); Mean Corp Hgb Conc 32.3 g/dL (32-36); Mean Corpuscular Hgb 30.3 pg (27.0-32.0); Mean Corpuscular Volume 93.8 fL (81-99); Monocyte# 0.69 X10^3/uL; Monocyte% 7.9 % (0-10); NRBC Flagged by Analyzer 0 % (0-5); Neutrophil % 67.4 % (47-70); Platelet Count 206 K/mm3 (150-450); RBC Distribution Width CV 13.7 % (11.6-14.6); RBC Distribution Width SD 46.7 fl (35.1-43.9); Red Blood Count 4.82 M/mm3 (4.2-5.4); White Blood Count 8.8 K/mm3 (4.4-11.0)
[2021-05-05 16:11] LABS: ALB/GLOB Ratio 0.8 RATIO (0.9-2.4); AST(SGOT) 17 U/L (15-37); Alanine Aminotransfer ALT/SGPT 28 U/L (13-56); Albumin, Serum 3.4 g/dL (3.2-5.0); Alkaline Phosphatase 69 U/L (45-117); Anion Gap 6 (5-15); BUN 16 mg/dL (7-18); BUN/Creat Ratio 15.1 RATIO (10-20); Calcium,Total 8.7 mg/dL (8.5-10.1); Chloride 106 mmol/L (98-107); Cholesterol 202 mg/dL (200); Creatinine, Serum 1.06 mg/dL (0.55-1.02); EST Glomerular Filtration Rate 54 mL/min (>60); Est Glom Filt Rate - Afr Amer 66 mL/min (>60); Globulin 4.1 g/dL (2.2-4.2); Glucose 105 mg/dL (74-106); High Density Lipoprotein 46 mg/dL; Magnesium 2.4 mg/dL (1.6-2.6); Potassium 4.1 mmol/L (3.5-5.1); Protein, Total 7.5 g/dL (6.4-8.2); Sodium Level 137 mmol/L (136-145); Thyroid Stim Hormone (TSH) 2.01 uIU/mL (0.358-3.74); Triglycerides 151 mg/dL; Very Low Density Lipoprotein 30 mg/dL (5-40)
[2021-05-05 16:25] LABS: Color, Urine Yellow (Yellow); Glucose, Dipstick Normal (Normal); Ketone-Dipstick Negative (Negative); Leukocyte Esterase-Dipstick 100 /ul (Negative); Nitrite-Dipstick Negative (Negative); Occult Blood-Urine 10 /ul (Negative); Protein-Dipstick 30 mg/dl (Negative); Specific Gravity, Urine 1.025 (1.002-1.030); Urine Bilirubin Dipstick Negative (Negative); Urine Clarity Clear (Clear); Urine Urobilinogen Normal (Normal)
[2021-05-05 16:47] LABS: Amorphous Sediment 1+ URATE; Bacteria 2+ /hpf (None Seen); Red Blood Cells-Urine 0-5 SEEN /hpf (0-5); Squamous Epithelial Cells - UA 0-5 SEEN /hpf (5-10); White Blood Cells 10-25 SEEN /hpf (0-5)
[2021-05-05 17:47] LABS: Hemoglobin A1c 5.7 % (3.8-5.6)
== END 2021-05-05 23:59 | disposition home or self-care (01) ==
LOC: MFPLAB 13:56
PROVIDERS: PCP Family Medicine; Referring Provider Family Medicine; Visit Provider Family Medicine
DX: I48.91 Unspecified atrial fibrillation (principal); I10 Essential (primary) hypertension; R73.02 Impaired glucose tolerance (oral)
CPT/HCPCS: 36415; 80053; 80061; 81001; 83036; 83735; 84443; 85025

== ENCOUNTER 2021-05-07 10:22 | Emergency (ER) | payer MEDICARE, MEDICAID, SELFPAY ==
[2021-05-07 10:24] VITALS: BP 174/109; PULSE 57; RESP 18; TEMP 36.1; O2SAT 95; BMI 30.7
--- NOTE | 2021-05-07 11:17 | EKG12_ITS ---
Test Reason : Blood Pressure : / mmHG Vent. Rate : 073 BPM Atrial Rate : 062 BPM P-R Int : 184 ms QRS Dur : 078 ms QT Int : 426 ms P-R-T Axes : 061 -10 086 degrees QTc Int : 469 ms Atrial-paced rhythm with frequent ventricular-paced complexes Inferior-posterior infarct , age undetermined Abnormal ECG Confirmed by STEVE MARIN, RADHA ([id number]), acquisitions editor TAMY COLMENARES ([id number]) on 05/08/2021 9:07:41 AM Referred By: [place] Confirmed By:RADHA WILSON MD
--- NOTE | 2021-05-07 11:23 | RAD_ITS ---
STUDY: X-RAY CHEST REASON FOR EXAM: Female, 71 years old. Chest pain TECHNIQUE: Single AP portable view of the chest. COMPARISON: Comparison is made with prior examination dated 08/18/2018. FINDINGS: Hyperinflation. Decreased bronchovascular markings suggestive of emphysematous change. Stable linear scarring at the left lung apex. There is no demonstrated pleural abnormality. Sternal cerclage wires and vascular clips are present from a prior sternotomy and coronary artery bypass graft procedure (CABG). A left-sided dual-chamber pacemaker is seen. Normal mediastinum and preeti. Normal visualized pulmonary arteries. There is atherosclerotic calcification of the aortic arch with tortuosity. There are diffuse degenerative changes of the visualized thoracic spine. Normal visualized ribs, clavicles, and shoulders. There is no demonstrated abnormality of the visualized soft tissue structures of the upper abdomen. RAD/Chest 1 View (Portable) IMPRESSION: Hyperinflation. No acute abnormality is seen. Electronically Signed: Lane Marcus MD at 12:05 EST ,
[2021-05-07] MEDS: Metoclopramide 10 MG/2 ML Vial IV (11:38)
[2021-05-07] MEDS: DiphenhydrAMINE 50 MG/ML Syringe 25 MG IV (11:38)
[2021-05-07 12:01] LABS: Absolute Lymphocyte Count 1.54 X10^3/uL (0.83-4.51); Absolute Neutrophil Count 6.7 X10^3/uL (2.0-7.7); Basophil# 0.03 X10^3/uL; Basophil% 0.3 % (0-1); Eosinophil# 0.19 X10^3/uL; Eosinophils% 2.1 % (0-5); Hematocrit 45.8 % (37-47); Hemoglobin 15.2 g/dL (12.0-15.0); Lymphocyte # 1.54 X10^3/ul (0.83-4.51); Lymphocyte % 16.7 % (19-41); Mean Corp Hgb Conc 33.2 g/dL (32-36); Mean Corpuscular Volume 93.5 fL (81-99); Mean Platelet Vol. 12.5 fl (6.2-12.0); Monocyte# 0.73 X10^3/uL; Monocyte% 7.9 % (0-10); NRBC Flagged by Analyzer 0 % (0-5); Neutrophil # 6.69 X10^3/uL (2.7-7.7); Neutrophil % 72.5 % (47-70); Platelet Count 208 K/mm3 (150-450); RBC Distribution Width CV 13.3 % (11.6-14.6); RBC Distribution Width SD 45.3 fl (35.1-43.9); White Blood Count 9.2 K/mm3 (4.4-11.0)
--- NOTE | 2021-05-07 12:06 | CT_ITS ---
STUDY: CT BRAIN WITHOUT CONTRAST REASON FOR EXAM: Female, 71 years old. headache RADIATION DOSAGE (If Supplied By Facility): CTDIvol = ( 44.99 ) mGy, DLP = ( 796.11 ) mGycm TECHNIQUE: Transaxial CT imaging of the brain was performed without administration of intravenous contrast material. Individualized dose optimization techniques were used for this CT. COMPARISON: No relevant priors. FINDINGS: Normal soft tissue structures. Normal calvarium. Normal size ventricles and extra-axial spaces for the patient''s age. Normal white matter tracts of the cerebral hemispheres. Normal basal ganglia and thalami. Normal brainstem. Normal cerebellum. There is no intracranial hemorrhage. There are no findings of an acute ischemic infarction. Normal visualized paranasal sinuses. CT/Brain/Head without Contrast IMPRESSION: No acute intracranial hemorrhage or mass effect. Electronically Signed: Derek Fitzpatrick MD ([place]) at 12:27 EST ,
[2021-05-07 12:19] LABS: Anion Gap 3 (5-15); BUN 13 mg/dL (7-18); BUN/Creat Ratio 11.7 RATIO (10-20); Calcium,Total 9.5 mg/dL (8.5-10.1); Chloride 106 mmol/L (98-107); Creatinine, Serum 1.11 mg/dL (0.55-1.02); EST Glomerular Filtration Rate 52 mL/min (>60); Est Glom Filt Rate - Afr Amer 62 mL/min (>60); Estimated Creatinine Clearance 40.14 ml/min; Glucose 121 mg/dL (74-106); Potassium 3.8 mmol/L (3.5-5.1); Sodium Level 137 mmol/L (136-145); Troponin-I HS 398 pg/mL (3.0-54.0)
[2021-05-07 12:23] VITALS: BP 125/71; PULSE 60; RESP 17; O2SAT 98
[2021-05-07 12:29] VITALS: O2SAT 97
[2021-05-07 12:34] LABS: Bacteria 0 SEEN /hpf (None Seen); Mucous, Urine 0 SEEN /hpf (<or=2+); White Blood Cells 0 SEEN /hpf (0-5)
[2021-05-07 12:35] LABS: Color, Urine Yellow (Yellow); Glucose, Dipstick Normal (Normal); Ketone-Dipstick Negative (Negative); Leukocyte Esterase-Dipstick Negative /ul (Negative); Nitrite-Dipstick Negative (Negative); Occult Blood-Urine 25 /ul (Negative); Protein-Dipstick Negative (Negative); Specific Gravity, Urine 1.015 (1.002-1.030); Urine Bilirubin Dipstick Negative (Negative); Urine Clarity Clear (Clear); Urine Urobilinogen Normal (Normal)
--- NOTE | 2021-05-07 12:37 | ED.RN ---
Hydralazine withheld per physician order due to blood pressure being 154/78
[2021-05-07 12:57] LABS: Red Blood Cells-Urine 0-5 SEEN /hpf (0-5); Squamous Epithelial Cells - UA 0-5 SEEN /hpf (5-10)
[2021-05-07 13:27] LABS: International Normalized Ratio 2.7; Prothrombin Time (Protime)PT. 28.2 SECONDS (11.7-14.9)
--- NOTE | 2021-05-07 14:09 | EX.ED.DYSGE1 ---
HPI History of Present Illness Chief Complaint: Hypertension Narrative Narrative: 71-year-old female presenting with headache. She states that she was initially on enalapril and her primary care physician Dr. Cobos took her off of this and she developed a headache this morning. She had a headache yesterday morning as well which resolved. She states that her blood pressures been elevated since they stopped the medicine. She states she was not put on a another medication. She states she is not having chest pain. She gets short of breath when she climbs stairs but this is baseline. She not had a fever. She has no nausea or vomiting. No visual complaints. No neck pain. Patient does state that she was supposed to go into the office today for a urine specimen because she thought she had a UTI but they did not want her to come there because she had a headache and hypertension. 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 Pacemaker Pacemaker Paroxysmal A-fib Paroxysmal atrial fibrillation Presence of cardiac pacemaker Presence of stent in coronary artery Restless legs Severe sepsis Sick sinus syndrome Sick sinus syndrome with tachycardia Home Medications aspirin 81 mg PO DAILY@0800 08/18/18 [History Last Taken 11/25/20 09:00] montelukast 10 mg tablet 10 mg PO QPM 02/22/19 [History Last Taken 11/25/20 21:00] albuterol sulfate 90 mcg/actuation aerosol inhaler 2 puff INHALATION Q6H PRN 03/05/19 [History Last Taken Unknown] fesoterodine 4 mg tablet,extended release 24 hr 4 mg PO DAILY 03/05/19 [History Last Taken 11/25/20 21:00] nitroglycerin 0.4 mg sublingual tablet 0.4 mg SUBLINGUAL Q5-15M PRN 03/05/19 [History Last Taken Unknown] pantoprazole 40 mg tablet,delayed release 40 mg PO DAILY tab 03/05/19 [History Last Taken 11/25/20 09:00] tiotropium 2.5 mcg-olodaterol 2.5 mcg/actuation mist for inhalation 2 puff INHALATION DAILY 03/05/19 [History Last Taken 11/25/20 09:00] benzonatate 100 mg capsule 100 mg PO DAILY 09/20/19 [History Last Taken 11/25/20 09:00] cetirizine 10 mg capsule 10 mg PO DAILY 10/13/20 [History Last Taken 11/25/20 09:00] ferrous sulfate-vitamin C 39 mg-75 mg tablet 1 tab PO .Daily tab 10/13/20 [History Last Taken 11/25/20 09:00] handicap placard #1 ea 10/13/20 [Rx Last Taken Unknown] pravastatin 80 mg tablet 80 mg PO QHS #90 tab 10/13/20 [Rx Last Taken 11/25/20 21:00] vitamin B12 500 mcg-folic acid 400 mcg tablet 1 tab PO DAILY 10/13/20 [History Last Taken 11/25/20 09:00] benzonatate 200 mg PO QHS 11/26/20 [History Last Taken 11/25/20 21:00] cholecalciferol (vitamin D3) [Vitamin D3] 50 mcg PO DAILY 11/26/20 [History Last Taken 11/25/20 09:00] warfarin 2.5 mg PO MOTUWETH 11/26/20 [History Last Taken 11/25/20 17:00] warfarin 5 mg PO SUFRSA 11/26/20 [History Last Taken 11/23/20 17:00] dicyclomine 10 mg capsule 10 mg PO BID #90 cap 12/31/20 [Rx Last Taken Unknown] isosorbide mononitrate 10 mg tablet 10 mg PO BID #180 tab 12/31/20 [Rx Last Taken Unknown] metoprolol tartrate 25 mg tablet 12.5 mg PO BID #90 tab 12/31/20 [Rx Last Taken Unknown] enalapril maleate 2.5 mg tablet 2.5 mg PO DAILY #90 tab 01/21/21 [Rx Last Taken Unknown] potassium chloride 10 mEq tablet,extended release(part/cryst) 20 meq PO DAILY #180 tab 04/16/21 [Rx Last Taken Unknown] Allergy/AdvReac Type Severity Reaction Status Date / Time atorvastatin calcium Allergy Hives Verified 11/26/20 07:57 [From Lipitor] gluten Allergy Food Verified 11/26/20 07:57 Allergy metoprolol succinate Allergy Rash Verified 11/26/20 07:57 [From Toprol XL] niacin Allergy Rash Verified 11/26/20 07:57 [From Niaspan Extended-Release] Penicillins Allergy Rash Verified 11/26/20 07:57 Sulfa (Sulfonamide Allergy Itching Verified 11/26/20 07:57 Antibiotics) radionuclide Allergy It almost Uncoded 11/26/20 07:57 killed me Family History Mother CVA (cerebral vascular accident) CAD (coronary artery disease) Surgical History History of cholecystectomy History of heart artery stent History of left-sided carotid endarterectomy (~06/2006) History of total hysterectomy Hx of CABG (~06/29/06) S/P hysterectomy Status post placement of cardiac pacemaker Social History household members: none Smoking Status: Former smoker alcohol intake: never substance use type: does not use ROS ROS ED Constitutional Constitutional ED: Denies chills or fever(s) Eyes Eyes: Denies blurry vision or diplopia ENT ENT ED: Denies rhinorrhea or sore throat Cardiovascular Cardiovascular: Denies chest pain or palpitations Respiratory/Chest Respiratory/Chest: Denies cough or sputum Gastrointestinal Gastrointestinal: Denies abdominal pain, nausea or vomiting Genitourinary Genitourinary ED: Reports dysuria; Denies hematuria or urinary frequency Musculoskeletal Musculoskeletal: Denies arthralgias, back pain, myalgias or neck pain Integumentary Denies rash Neurologic Neurologic: Reports headache(s); Denies paresthesias or weakness EXAM Physical Exam Const Vital Signs: 05/07/21 10:24 05/07/21 11:40 05/07/21 12:23 Temperature 97.0 F L Temperature Source Temporal Pulse Rate 57 L 60 Respiratory Rate 18 17 Respiratory Effort Normal Respiratory Pattern Normal Blood Pressure 174/109 H 125/71 H Blood Pressure Mean 130 89 Pulse Ox 95 98 Oxygen Delivery Method Room Air Room Air 05/07/21 12:29 05/07/21 15:00 Temperature Temperature Source Pulse Rate 64 Respiratory Rate 18 Respiratory Effort Respiratory Pattern Blood Pressure 153/75 H Blood Pressure Mean 101 Pulse Ox 97 97 Oxygen Delivery Method Room Air Room Air Positive well nourished General Appearance ED: NAD; Negative for pallor HEENT Reports moist mucous membranes Negative for trauma Eyes PERRL and EOMs intact bilaterally Neck no lymphadenopathy and no JVD Chest Wall inspection of chest normal and palpation of chest normal Resp normal respiratory effort and clear to auscultation bilaterally Cardio regular rate and regular rhythm Extremity normal to inspection General Extremety ED: Yes tenderness Neuro oriented x3, CN's II-XII intact bilaterally and no sensory deficits noted Sensorium / Orientation: alert Motor Exam: strength 5/5 throughout Psych mental status grossly normal Skin General Skin Exam: Negative for jaundice or pallor MDM MDM MDM Narrative Medical decision making narrative: Patient presenting with headache. She is not complaining of chest pain but does have her baseline shortness of breath when climbing stairs. She states that she was taken off her enalapril and this was not replaced. I obtained an EKG which shows a paced rhythm at 73 beats per minute. Chest x-ray on my interpretation shows no acute abnormalities. CBC is within normal limits. INR is therapeutic at 2.7. Renal function at baseline. High-sensitivity troponin is 398. I went back to the room to asked the patient if she had had any chest pain and she said she had not and that she had her baseline shortness of breath declining stairs. I spoke with Dr. Lee who recommend repeating a troponin since she was symptom-free as far as her chest pain from point and if her troponin is not elevated significantly that she can be discharged. She was given Reglan and Benadryl for her headache and her headaches resolved. I initially ordered hydralazine for her pressure but before she could get it her blood pressure had dropped and is now normal. I did obtain a CT of the brain which was negative for acute intercranial findings. Her delta troponin returned at 387. After speaking with Dr. Lee I believe she can leave based on his assessment. Again she is not having any chest pain. Her blood pressure resolved on its own. I did try to page her primary care physician but did not receive a call back yet. Patient wishes to be discharged home. She is given return precautions. Impression: 1. Headache 2. Hypertension 3. Elevated troponin 4. Dysuria uncertain cause Lab Data Labs: Laboratory Results - last 24 hr 05/07/21 05/07/21 05/07/21 11:45 11:45 12:30 WBC 9.2 RBC 4.90 Hgb 15.2 H Hct 45.8 MCV 93.5 MCH 31.0 MCHC 33.2 RDW Std Deviation 45.3 H RDW Coeff of Neymar 13.3 Plt Count 208 MPV 12.5 H Immature Gran % (Auto) 0.500 Neut % (Auto) 72.5 H Lymph % (Auto) 16.7 L Summers % (Auto) 7.9 Eos % (Auto) 2.1 Baso % (Auto) 0.3 Absolute Neuts (auto) 6.7 Absolute Lymphs (auto) 1.54 Nucleated RBC % 0 PT 28.2 H INR 2.7 Sodium 137 Potassium 3.8 Chloride 106 Carbon Dioxide 28.0 Anion Gap 3 L BUN 13 Creatinine 1.11 H Estim Creat Clear Calc 40.14 Est GFR (MDRD) Af Amer 62 Est GFR (MDRD) Non-Af 52 L BUN/Creatinine Ratio 11.7 Glucose 121 H Calcium 9.5 Troponin I High Sens 398 H* Urine Color Urine Clarity Urine pH Ur Specific [employer] [place] Urine Protein Urine Glucose (UA) Urine Ketones Urine Occult Blood Urine Nitrite Urine Bilirubin Urine Urobilinogen Ur Leukocyte Esterase Urine RBC Urine WBC Ur Squamous Epith Cells Urine Bacteria Urine Mucus 05/07/21 05/07/21 12:30 14:00 WBC RBC Hgb Hct MCV MCH MCHC RDW Std Deviation RDW Coeff of Neymar Plt Count MPV Immature Gran % (Auto) Neut % (Auto) Lymph % (Auto) Summers % (Auto) Eos % (Auto) Baso % (Auto) Absolute Neuts (auto) Absolute Lymphs (auto) Nucleated RBC % PT INR Sodium Potassium Chloride Carbon Dioxide Anion Gap BUN Creatinine Estim Creat Clear Calc Est GFR (MDRD) Af Amer Est GFR (MDRD) Non-Af BUN/Creatinine Ratio Glucose Calcium Troponin I High Sens 387 H* Urine Color Yellow Urine Clarity Clear Urine pH 6.0 Ur Specific [employer] [place] 1.015 Urine Protein Negative Urine Glucose (UA) Normal Urine Ketones Negative Urine Occult Blood 25 H Urine Nitrite Negative Urine Bilirubin Negative Urine Urobilinogen Normal Ur Leukocyte Esterase Negative Urine RBC 0-5 SEEN Urine WBC 0 SEEN Ur Squamous Epith Cells 0-5 SEEN Urine Bacteria 0 SEEN Urine Mucus 0 SEEN Radiography Diagnostic Testing: Clinical Impression(s) from Imaging Studies Chest X-Ray 05/07/21 11:23 IMPRESSION: Hyperinflation. No acute abnormality is seen. Electronically Signed: Lane Macrus MD at 12:05 EST , Brain CT 05/07/21 12:06 IMPRESSION: No acute intracranial hemorrhage or mass effect. Electronically Signed: Derek Fitzpatrick MD ([place]) at 12:27 EST , Discharge Plan Triage Chief Complaint: Hypertension ED Provider: Natan Irby Dx/Rx/DC Orders Instructions: ED Hypertension, Established Prescriptions: No Action montelukast 10 mg tablet 10 mg PO QPM RF: 0 benzonatate 100 mg capsule 100 mg PO DAILY RF: 0 vitamin F28-bpwxt acid 500-400 mcg tablet 1 tab PO DAILY RF: 0 All Day Allergy (cetirizine) 10 mg capsule 10 mg PO DAILY RF: 0 ferrous sulfate-vitamin C 39-75 mg tablet 1 tab PO .Daily RF: 0 (DME) handicap placard See Rx Instructions .Route .MEDSUPPLY Qty: 1 RF: 0 pravastatin 80 mg tablet 80 mg PO QHS Qty: 90 RF: 3 dicyclomine 10 mg capsule 10 mg PO BID Qty: 90 RF: 0 aspirin 81 MG tablet,chewable 81 mg PO DAILY@0800 RF: 0 benzonatate 100 mg capsule 200 mg PO QHS RF: 0 cholecalciferol (vitamin D3) [Vitamin D3] 50 mcg (2,000 unit) Capsule 50 mcg PO DAILY RF: 0 warfarin 2.5 mg tablet 2.5 mg PO MOTUWETH RF: 0 warfarin 5 mg tablet 5 mg PO SUFRSA RF: 0 albuterol sulfate [Ventolin HFA] 90 mcg/actuation HFA aerosol inhaler 2 puff INHALATION Q6H PRN (Reason: sob) RF: 0 Stiolto Respimat 2.5-2.5 mcg/actuation mist 2 puff INHALATION DAILY RF: 0 nitroglycerin 0.4 mg tablet, sublingual 0.4 mg SUBLINGUAL Q5-15M PRN (Reason: Chest Pain) RF: 0 pantoprazole 40 mg tablet,delayed release (DR/EC) 40 mg PO DAILY RF: 0 Toviaz 4 mg tablet extended release 24 hr 4 mg PO DAILY RF: 0 isosorbide mononitrate 10 mg tablet 10 mg tablet 10 mg PO BID Qty: 180 RF: 3 metoprolol tartrate 25 mg tablet 12.5 mg PO BID Qty: 90 RF: 3 enalapril maleate 2.5 mg tablet 2.5 mg PO DAILY Qty: 90 RF: 3 potassium chloride 10 mEq tablet,ER particles/crystals 20 meq PO DAILY Qty: 180 RF: 3 Primary Care Provider: Erasmo Pierre Referrals: Erasmo Pierre MD [Primary Care Provider] - Disposition Disposition: Home, Self Care Discharge Date/Time: 05/07/21 15:01
[2021-05-07 14:26] LABS: Troponin-I HS 387 pg/mL (3.0-54.0)
[2021-05-07 15:00] VITALS: BP 153/75; PULSE 64; RESP 18; O2SAT 97
== END 2021-05-07 15:01 | disposition home or self-care (01) ==
PROVIDERS: Emergency Provider Student in an Organized Health Care Education/Training Program; PCP Family Medicine; Visit Provider Student in an Organized Health Care Education/Training Program
DX: I10 Essential (primary) hypertension (principal); J43.9 Emphysema, unspecified; I48.0 Paroxysmal atrial fibrillation; R77.8 Other specified abnormalities of plasma proteins; R30.0 Dysuria; R51.9 Headache, unspecified; I25.10 Atherosclerotic heart disease of native coronary artery without angina pectoris; E78.00 Pure hypercholesterolemia, unspecified; Z95.0 Presence of cardiac pacemaker; Z95.1 Presence of aortocoronary bypass graft; Z95.5 Presence of coronary angioplasty implant and graft; Z79.01 Long term (current) use of anticoagulants; Z79.82 Long term (current) use of aspirin; Z79.899 Other long term (current) drug therapy; Z87.891 Personal history of nicotine dependence
CPT/HCPCS: 70450; 71045; 80048; 81001; 84484; 85025; 85610; 93005; 96372; 96374; 96375; 99283; A4216

== ENCOUNTER → 2021-08-19 | Outpatient (CLI) | payer MEDICARE, MEDICAID, SELFPAY ==
--- NOTE | 2021-08-19 08:59 | ART_ITS ---
Reason For Study: PVD Procedure A bilateral lower extremity continuous wave Doppler with analog waveform analysis and ankle brachial indexes. Left Segmental Pressures Left brachial= 121mmHg. Left posterior tibial artery = 100mmHg. Left dorsalis pedis artery = 109mmHg. Left digit = 90 mmHg. Right Segmental Pressures Right brachial= 124mmHg. Right posterior tibial artery = 116mmHg. Right dorsalis pedis artery = 111mmHg. Right digit = 118 mmHg. Indices The right ankle brachial index by the posterior tibial artery is 0.94. The right ankle brachial index by the dorsalis pedis is 0.90. The right digital-brachial index is 0.95. The left ankle brachial index by the posterior tibial artery is 0.81. The left ankle brachial index by the dorsalis pedis is 0.88. The left digital-brachial index is 0.73. VL/Ankle Brachial Index Interpretation Summary Right lower extremity with no evidence of significant occlusive disease at rest with triphasic flow and an RANJAN 0.94. Left lower extremity with mild occlusive disease with biphasic flow and an RANJAN 0.88. Ordering Physician: William Kraus Referring Physician: William Kraus Performed By: Lakesha Luna RDCS/RVT
--- NOTE | 2021-08-19 08:59 | AAVD_ITS ---
Reason For Study: PVD Aorta Measurements Aorta Doppler Measurements Proximal aorta measures1.31cm x 1.40cm. in cross- Peak systolic flow velocities within the proximal sectional axis. aorta measure 36 cm/sec. Proximal aorta measures1.26cm. in longitudinal Peak systolic flow velocities within the mid aorta axis. measure 43 cm/sec. Mid aorta measures1.28cm x 1.36cm. in cross- Peak systolic flow velocities within the distal sectional axis. aorta measure 214 cm/sec. Mid aorta measures1.35cm. in longitudinal axis. Distal aorta measures1.23cm x 1.70cm. in cross- sectional axis. Distal aorta measures1.28cm. in longitudinal axis. Left Iliac Artery Left iliac artery measures 0.78cm x 0.95 cm. in the cross-sectional axis. Left iliac artery measures 0.88 cm. in the longitudinal axis. Peak systolic velocity in the left iliac artery measures 110 cm/sec. Right Iliac Artery Right iliac artery measures 1.0cm x 0.95 cm. in the cross-sectional axis. Right iliac artery measures 0.95 cm. in the longitudinal axis. Peak systolic velocity in the right iliac artery measures 280 cm/sec. Procedure Aorta IVC Iliac vasculature or bypass grafts [id number]. Exam performed in department. VL/Abd Aortic/IVC Duplex scan Interpretation Summary No evidence of aortic iliac aneurysm. Moderate stenosis noted in the distal aor ta and the right common iliac artery. Ordering Physician: William Kraus Referring Physician: Erasmo Pierre Performed By: Lakesha Luna RDCS, RVT
--- NOTE | 2021-08-19 09:00 | CDU_ITS ---
Reason For Study: Carotid Stenosis Rt. Velocities/BP Lt. Velocities/BP Prox CCA 62/10 cm/sec. Prox CCA 60/16 cm/sec. Mid CCA 53/13 cm/sec. Mid CCA 56/20 cm/sec. Dist CCA 50/8 cm/sec. Dist CCA 153/36 cm/sec. Prox ICA 63/20 cm/sec. Prox ICA 133/29 cm/sec. Mid ICA 63/25 cm/sec. Mid ICA 118/24 cm/sec. Dist ICA 56/20 cm/sec. Dist ICA 61/19 cm/sec. Rt. ICA/CCA = 1.2. Lt. ICA/CCA = 2.4. Prox ECA 196/15 cm/sec. Prox ECA 71/7 cm/sec. Rt. Vert. 68/16 cm/sec. Lt. Vert. 75/24 cm/sec. Right Extracranial There is heterogeneous, irregular atherosclerotic plaque noted in the right common carotid artery. There is heterogeneous, irregular atherosclerotic plaque noted in the right internal carotid artery. There is heterogeneous, irregular atherosclerotic plaque noted in the right external carotid artery. Antegrade flow is noted in the right vertebral artery. Left Extracranial There is heterogeneous, irregular atherosclerotic plaque noted in the left common carotid artery. There is heterogeneous, irregular atherosclerotic plaque noted in the left internal carotid artery. There is heterogeneous, irregular atherosclerotic plaque noted in the left external carotid artery. Antegrade flow is noted in the left vertebral artery. There is homogeneous, irregular atherosclerotic plaque noted in the left bulb. Procedure Carotid Duplex 51335. This is a Carotid Duplex examination using B-mode, color flow and specral Doppler. Exam performed in department. VL/Carotid Duplex Ultrasound Interpretation Summary Mild (<50%) stenosis right extracranial internal carotid. Moderate (50-69%) brett nosis left extracranial internal carotid. Flow within the vertebral arteries is antegrade bilaterally. Ordering Physician: William Kraus Referring Physician: Erasmo Pierre Performed By: Lakesha Luna RDCS, RVT
== END | disposition home or self-care (01) ==
LOC: CVS 08:57
PROVIDERS: PCP Family Medicine; Referring Provider Surgery Vascular Surgery; Visit Provider Surgery Vascular Surgery
DX: I70.0 Atherosclerosis of aorta (principal); I77.1 Stricture of artery; I73.9 Peripheral vascular disease, unspecified; I65.23 Occlusion and stenosis of bilateral carotid arteries; F17.200 Nicotine dependence, unspecified, uncomplicated
CPT/HCPCS: 93880; 93922; 93978

== ENCOUNTER → 2021-08-26 | Outpatient (CLI) | payer MEDICARE, MEDICAID, SELFPAY ==
--- NOTE | 2021-08-26 10:19 | RAD_ITS ---
STUDY: X-RAY - LUMBAR SPINE REASON FOR EXAM: Female, 71 years old. Low back pain. TECHNIQUE: 3 view(s) of the lumbar spine were obtained. COMPARISON: 01/31/2019. FINDINGS: Osteopenia. Normal lumbar lordosis. There is no substantial scoliosis. There is a normal alignment of the vertebrae. Grade 1 spondylolisthesis of L5 on S1 with spondylolysis at this level. Diffuse facet sclerosis. Diffuse intervertebral disc space narrowing most marked at L1-2, L2-3, L3-4 and to the greatest degree at L5-S1 Marked vascular calcification. RAD/Lumbar Spine 2 or 3 Views IMPRESSION: Osteopenia with spondylolysis at L5-S1 with grade 1 spondylolisthesis at L5-S1. Diffuse moderate lumbosacral spondylosis. Electronically Signed: Pancho Whatley MD at 13:34 EDT ,
--- NOTE | 2021-08-26 10:19 | RAD_ITS ---
STUDY: X-RAY - LEFT KNEE REASON FOR EXAM: Female, 71 years old. Pain. TECHNIQUE: 3 view(s) of the knee. COMPARISON: None. FINDINGS: Osteopenia. Mild medial compartmental arthrosis. Normal lateral compartment. Normal patellofemoral compartment. The soft tissue structures are unremarkable. RAD/Knee 3 Views IMPRESSION: Osteopenia with medial femorotibial compartmental arthrosis. No acute abnormality, chondrocalcinosis, erosive changes or periostitis. Electronically Signed: Pancho Whatley MD at 13:35 EDT ,
--- NOTE | 2021-08-26 10:19 | RAD_ITS ---
STUDY: X-RAY - RIGHT KNEE REASON FOR EXAM: Female, 71 years old. Knee pain. TECHNIQUE: 3 view(s) of the knee. COMPARISON: None. FINDINGS: Osteopenia. Mild medial subluxation of the distal femur in relation to the tibia. Vascular calcification and clips projected adjacent to the medial aspect of the distal femur. The soft tissue structures are otherwise unremarkable. RAD/Knee 3 Views IMPRESSION: Osteopenia with slight medial subluxation distal femur in relation to the tibia. No other abnormality. Electronically Signed: Pancho Whatley MD at 13:36 EDT ,
== END | disposition home or self-care (01) ==
LOC: MTRAD 10:18
PROVIDERS: PCP Family Medicine; Referring Provider Family Medicine; Visit Provider Family Medicine
DX: M17.10 Unilateral primary osteoarthritis, unspecified knee (principal); M43.00 Spondylolysis, site unspecified
CPT/HCPCS: 72100; 73562

== ENCOUNTER → 2021-09-10 | Outpatient (CLI) | payer MEDICARE, MEDICAID, SELFPAY ==
--- NOTE | 2021-09-10 08:17 | BI_ITS ---
MAMMOGRAPHY - BILATERAL SCREENING REASON FOR EXAM: Female, 71 years old. Routine annual screening examination. PERTINENT HISTORY: Non-contributory. TECHNIQUE: Digital bilateral breast bill (3D mammographic acquisition) in the CC and MLO projections. 2-D mediolateral oblique (MLO) and craniocaudad (CC) views of both breasts were obtained. CAD: Full Field Digital Mammography with Computer Added Detection was performed. COMPARISON: Comparison is made with prior study dated 07/05/2016 and 07/04/2015. FINDINGS: Breast Composition: The breasts are heterogeneously dense, which may obscure small masses. There are no dominant masses or suspicious calcifications. A pacemaker battery pack is seen in the left axillary region. No other significant abnormalities are identified. There has been no significant change since the prior study. BI/SCRN MAMM (CAD)W/BILL BILAT IMPRESSION: Stable bilateral screening mammogram. Yearly follow-up mammogram recommended. (A) ASSESSMENT CATEGORY: BIRADS Category 2: Benign. A letter regarding these results will be sent to the patient by the facility within 30 days. Approximately 10% of breast cancers are not detected by mammography. A normal mammogram should not delay biopsy of a clinically suspicious abnormality. [id number] Electronically Signed: Lnae Marcus MD at 9:42 EDT ,
--- NOTE | 2021-09-10 08:21 | BD_ITS ---
STUDY: DUAL ENERGY X-RAY ABSORPTIOMETRY / DXA REASON FOR EXAM: Female, 71 years old. [id number]. Patient is postmenopausal. TECHNIQUE: Bone Mineral Density (BMD) measurements of lumbar spine and bilateral hips were obtained. COMPARISON: None. FINDINGS: Lumbar Spine (L1-L4): g/cm2 (0.652) / T-score (-3.0) / Z-score (-0.9) Findings are suggestive of osteoporosis with a high fracture risk. Left Femur Total: g/cm2 (0.644) / T-score (-2.4) / Z-score (-0.9) Left Femoral Neck: g/cm2 (0.555) / T-score (-2.7) / Z-score (-0.8) Right Femur Total: g/cm2 (0.683) / T-score (-2.1) / Z-score (-0.5) Right Femoral Neck: g/cm2 (0.58) / T-score (-2.4) / Z-score (-0.5) BD/Dexa Bone Density Study IMPRESSION: The patient is considered osteoporotic as outlined below according to World Martin Organization (WHO) criteria with a high fracture risk. Reference Information: The T-score is the number of standard deviations above or below the standard which is normal for young adults at their peak bone mineral density. The World Health Organization (WHO) interprets the T-scores as follows: Above -1 Normal bone density Between -1 and -2.5 Osteopenia Equal to / or below -2.5 Osteoporosis As a practical clinical guideline, osteopenia may be graded as follows: Mild -1 through -1.5 Moderate -1.6 through -2.0 Severe -2.1 through -2.4 The Z-score is the number of standard deviations above or below age-matched controls. A Z-score of less than -1.5 would be considered abnormal. References: 1. NIH Osteoporosis and Related Bone Diseases www osteo.org 2. International Society for Clinical Densitometry www iscd.org 3. National Osteoporosis Foundation www nof.org Electronically Signed: Lane Marcus MD at 12:36 EDT ,
== END | disposition home or self-care (01) ==
LOC: OPBD 08:13
PROVIDERS: PCP Family Medicine; Visit Provider Family Medicine
DX: Z12.31 Encounter for screening mammogram for malignant neoplasm of breast (principal); M85.80 Other specified disorders of bone density and structure, unspecified site; Z78.0 Asymptomatic menopausal state; M81.0 Age-related osteoporosis without current pathological fracture
CPT/HCPCS: 77063; 77067; 77080

== ENCOUNTER → 2021-11-06 | Outpatient (CLI) | payer MEDICARE, MEDICAID, SELFPAY ==
[2021-11-06 12:12] LABS: Absolute Lymphocyte Count 2.85 X10^3/uL (0.83-4.51); Absolute Neutrophil Count 5.7 X10^3/uL (2.0-7.7); Basophil# 0.05 X10^3/uL; Basophil% 0.5 % (0-1); Eosinophil# 0.39 X10^3/uL; Hemoglobin 14.7 g/dL (12.0-15.0); Lymphocyte # 2.85 X10^3/ul (0.83-4.51); Lymphocyte % 29.1 % (19-41); Mean Corpuscular Hgb 30.2 pg (27.0-32.0); Mean Corpuscular Volume 94.7 fL (81-99); Mean Platelet Vol. 12.8 fl (6.2-12.0); Monocyte# 0.76 X10^3/uL; Monocyte% 7.8 % (0-10); NRBC Flagged by Analyzer 0 % (0-5); Neutrophil % 58.2 % (47-70); Platelet Count 213 K/mm3 (150-450); RBC Distribution Width CV 13.4 % (11.6-14.6); RBC Distribution Width SD 47.1 fl (35.1-43.9); Red Blood Count 4.86 M/mm3 (4.2-5.4); White Blood Count 9.8 K/mm3 (4.4-11.0)
[2021-11-06 12:38] LABS: Vitamin D,25 Hydroxy 49.7 ng/mL
[2021-11-06 12:45] LABS: Hemoglobin A1c 5.8 % (3.8-5.6)
[2021-11-06 13:02] LABS: ALB/GLOB Ratio 0.9 RATIO (0.9-2.4); AST(SGOT) 25 U/L (15-37); Alanine Aminotransfer ALT/SGPT 39 U/L (13-56); Albumin, Serum 3.3 g/dL (3.2-5.0); Alkaline Phosphatase 74 U/L (45-117); Anion Gap 8 (5-15); BUN 12 mg/dL (7-18); BUN/Creat Ratio 10.8 RATIO (10-20); Calcium,Total 8.5 mg/dL (8.5-10.1); Chloride 104 mmol/L (98-107); Cholesterol 196 mg/dL (200); Creatinine, Serum 1.11 mg/dL (0.55-1.02); EST Glomerular Filtration Rate 51 mL/min (>60); Est Glom Filt Rate - Afr Amer 62 mL/min (>60); Globulin 3.7 g/dL (2.2-4.2); Glucose 126 mg/dL (74-106); High Density Lipoprotein 38 mg/dL; Magnesium 1.9 mg/dL (1.6-2.6); Potassium 3.7 mmol/L (3.5-5.1); Sodium Level 136 mmol/L (136-145); Thyroid Stim Hormone (TSH) 3.96 uIU/mL (0.358-3.74); Triglycerides 245 mg/dL; Very Low Density Lipoprotein 49 mg/dL (5-40)
[2021-11-10 11:22] LABS: T4 Free Direct 1.12 ng/dL (0.76-1.46)
== END | disposition home or self-care (01) ==
LOC: MFPLAB 11:02
PROVIDERS: PCP Family Medicine; Visit Provider Family Medicine
DX: I48.91 Unspecified atrial fibrillation (principal); I77.9 Disorder of arteries and arterioles, unspecified; E78.5 Hyperlipidemia, unspecified; R73.02 Impaired glucose tolerance (oral); M81.0 Age-related osteoporosis without current pathological fracture
CPT/HCPCS: 36415; 80053; 80061; 82306; 83036; 83735; 84439; 84443; 85025

== ENCOUNTER 2022-01-14 07:44 | Emergency (ER) | payer MEDICARE, MEDICAID, SELFPAY ==
[2022-01-14 07:46] VITALS: BP 148/77; PULSE 88; RESP 18; TEMP 36.4; O2SAT 97; BMI 32.5
--- NOTE | 2022-01-14 08:20 | EDS_ITS ---
HPI HPI - GI History of Present Illness Chief Complaint: GI Bleed Informant: patient Abdominal Pain/Flank Pain Onset: Yesterday Context: Sudden Onset Timing: Continuous Quality: Sharp Location: RLQ and LLQ Worsened by: Nothing Relieved by: Nothing Nausea/Vomiting/Emesis GI Symptom: Positive for Nausea and Vomiting Quality: Positive for Nonbilious; Negative for Blood streaks, Coffee ground or Hematemesis Diarrhea/Melena/Hematochezia GI Symptom: Positive for Diarrhea and Hematochezia Onset: Yesterday Stool Quality: Positive for BRB per rectum Episodes: 7 Associated Symptoms Associated Symptoms: Negative for Dysuria, Frequency or Hematuria Narrative Narrative: Patient presents with abdominal pain and hematochezia that began last night. Patient states that she has had approximately 7 episodes of bloody diarrhea since last night. Patient states she has eczema across her lower abdomen. Patient states it has been constant. Patient describes it as sharp. Patient states nothing makes it worse and nothing makes it better. Patient admits to some nausea and vomiting. Patient denies any hematemesis or coffee-ground emesis. Patient denies any urinary complaints. Prior similar symptoms: Yes PFSH PFSH Medical History Acute blood loss anemia Acute colitis Atherosclerosis of [place] coronary artery of [place] heart without angina pectoris Carotid artery disease Cerebrovascular disease Emphysema of lung Essential hypertension High cholesterol History of stress test HLD (hyperlipidemia) Irritable bowel Ischemic colitis snf current use of anticoagulant Pacemaker Pacemaker Paroxysmal A-fib Paroxysmal atrial fibrillation Presence of cardiac pacemaker Presence of stent in coronary artery Restless legs Severe sepsis Sick sinus syndrome Sick sinus syndrome with tachycardia Home Medications aspirin 81 mg chewable tablet 81 mg PO DAILY@0800 health maintenance 08/18/18 [History Last Taken 11/25/20 09:00] montelukast 10 mg tablet 10 mg PO QPM allergy 02/22/19 [History Last Taken 11/25/20 21:00] albuterol sulfate 90 mcg/actuation aerosol inhaler (Ventolin HFA) 2 puff inhalation Q6H PRN sob 03/05/19 [History Last Taken Unknown] fesoterodine 4 mg tablet,extended release 24 hr (Toviaz) 4 mg PO DAILY over active bladder 03/05/19 [History Last Taken 11/25/20 21:00] tiotropium 2.5 mcg-olodaterol 2.5 mcg/actuation mist for inhalation (Stiolto Respimat) 2 puff inhalation DAILY breathing 03/05/19 [History Last Taken 11/25/20 09:00] benzonatate 100 mg capsule 100 mg PO DAILY COPD 09/20/19 [History Last Taken 11/25/20 09:00] cetirizine 10 mg capsule (All Day Allergy (cetirizine)) 10 mg PO DAILY allergies 10/13/20 [History Last Taken 11/25/20 09:00] ferrous sulfate-vitamin C 39 mg-75 mg tablet 1 tab PO .Daily health maintenance 10/13/20 [History Last Taken 11/25/20 09:00] handicap placard #1 ea 10/13/20 [Rx Last Taken Unknown] vitamin B12 500 mcg-folic acid 400 mcg tablet 1 tab PO DAILY health maintenance 10/13/20 [History Last Taken 11/25/20 09:00] benzonatate 100 mg capsule 200 mg PO QHS COPD 11/26/20 [History Last Taken 11/25/20 21:00] cholecalciferol (vitamin D3) 50 mcg (2,000 unit) capsule (Vitamin D3) 50 mcg PO DAILY health maintenance 11/26/20 [History Last Taken 11/25/20 09:00] enalapril maleate 2.5 mg tablet 1.25 mg PO DAILY #45 tabs 07/22/21 [Rx Last Taken Unknown] isosorbide mononitrate 10 mg tablet 10 mg PO BID #180 tabs 07/22/21 [Rx Last Taken Unknown] metoprolol tartrate 25 mg tablet 12.5 mg PO BID #90 tabs 07/22/21 [Rx Last Taken Unknown] nitroglycerin 0.4 mg sublingual tablet 0.4 mg sublingual Q5-15M PRN Chest Pain #25 tabs 07/22/21 [Rx Last Taken Unknown] pantoprazole 40 mg tablet,delayed release 40 mg PO DAILY stomach #90 tabs 07/22/21 [Rx Last Taken Unknown] potassium chloride 10 mEq tablet,extended release(part/cryst) 20 meq PO DAILY #1 80 tabs 07/22/21 [Rx Last Taken Unknown] pravastatin 80 mg tablet 80 mg PO QHS #90 tabs 07/22/21 [Rx Last Taken Unknown] warfarin 5 mg tablet 5 mg PO SUFRSA blood thinner #90 tabs 07/28/21 [Rx Last Ta rip Unknown] nirmatrelvir 300 mg (150 mg x2)-ritonavir 100 mg tablet,dose pack(EUA) (Paxlovid) See Rx Instructions PO .COMPLEX #30 tabs 11/20/21 [Rx Last Taken Unknown] warfarin 2.5 mg tablet 2.5 mg PO .COMPLEX blood thinner #120 tabs 12/02/21 [Rx Last Taken Unknown] ciprofloxacin HCl 500 mg tablet 500 mg PO BID #20 TABLETS 01/14/22 [Rx Last Taken Unknown] metronidazole 500 mg tablet 500 mg PO Q6H #40 tabs 01/14/22 [Rx Last Taken Unknown] Allergy/AdvReac Type Severity Reaction Status Date / Time atorvastatin calcium Allergy Hives Verified 01/14/22 07:48 [From Lipitor] gluten Allergy Food Verified 01/14/22 07:48 Allergy metoprolol succinate Allergy Rash Verified 01/14/22 07:48 [From Toprol XL] niacin Allergy Rash Verified 01/14/22 07:48 [From Niaspan Extended-Release] Penicillins Allergy Rash Verified 01/14/22 07:48 Sulfa (Sulfonamide Allergy Itching Verified 01/14/22 07:48 Antibiotics) radionuclide Allergy It almost Uncoded 01/14/22 07:48 killed me Family History Mother CVA (cerebral vascular accident) CAD (coronary artery disease) Surgical History History of cholecystectomy History of heart artery stent History of left-sided carotid endarterectomy (~06/2006) History of total hysterectomy Hx of CABG (~06/29/06) S/P hysterectomy Status post placement of cardiac pacemaker Social History household members: none Smoking Status: Former smoker alcohol intake: never substance use type: does not use ROS ROS ED Constitutional Constitutional ED: Denies chills or fever(s) Eyes Eyes: Denies blurry vision or change in vision ENT ENT ED: Reports rhinorrhea; Denies sore throat Cardiovascular Cardiovascular: Denies chest pain or palpitations Respiratory/Chest Respiratory/Chest: Denies cough or dyspnea Gastrointestinal Gastrointestinal: Reports abdominal pain, diarrhea, nausea and vomiting Genitourinary Genitourinary ED: Denies dysuria or hematuria Musculoskeletal Musculoskeletal: Reports back pain; Denies neck pain Integumentary Denies abscess or rash Neurologic Neurologic: Reports headache(s); Denies weakness Allergic/Immunologic Allergic/Immunologic ED: Denies mouth swelling or urticaria EXAM Physical Exam Const Vital Signs: 01/14/22 07:46 01/14/22 10:00 Temperature 97.5 F L Temperature Source Temporal Pulse Rate 88 81 Respiratory Rate 18 18 Blood Pressure 148/77 H 141/73 H Blood Pressure Mean 100 95 Pulse Ox 97 94 Oxygen Delivery Method Room Air Room Air Positive well nourished and well developed General Appearance ED: well developed HEENT Reports moist mucous membranes Neck supple and no JVD Resp normal respiratory effort and clear to auscultation bilaterally Cardio regular rate, regular rhythm and no murmurs GI normal to inspection, nondistended, normoactive bowel sounds GI Narrative: Rectal exam shows a external hemorrhoid. There is no bleeding from this. There is good sphincter tone. There is red blood in the rectum. There are no masses palpated. Palpation: soft and tender LLQ, RLQ and suprapubic; Negative for guarding or rebound tenderness present Extremity normal to inspection General Extremety ED: Negative for edema or tenderness General Extremity: Negative for edema Neuro oriented x3, CN's II-XII intact bilaterally and no sensory deficits noted Sensorium / Orientation: alert Motor Exam: strength 5/5 throughout Psych mental status grossly normal Skin no rashes or lesions noted MDM MDM MDM Narrative Medical decision making narrative: Patient was given IV fluids. CBC shows a slight leukocytosis of 12.7. Hemoglobin was 15.8 and hematocrit 49.3. Comprehensive metabolic profile shows a creatinine of 1.4. This is consistent with prior results. Lactate was slightly elevated at 4.0. PT was 25.5. INR was 2.4. PTT was 48.6. Urinalysis does not show any evidence of urinary tract infection or hematuria. CT scan of the abdomen pelvis was obtained. There is colitis of the transverse, descending colon and sigmoid colon. There is fatty infiltration of the liver. There is no abscess or perforation. This was interpreted by the radiologist and reviewed by myself. Patient was given a dose of Cipro and Flagyl here. Case was discussed with Dr. Kirk from gastroenterology. He recommended starting patient on dicyclomine twice daily. Patient is already on an anticholinergic for an overactive bladder. Patient was instructed to follow-up with her primary care physician in 2 to 3 days for recheck of her INR. Patient was instructed to keep close monitoring of her INR while she is on the Cipro. Patient was instructed to avoid alcohol while taking the Flagyl. Patient understood and was agreeable with the plan. All questions were answered. Lab Data Attestation: I reviewed the patient's lab results. Labs: Laboratory Results - last 24 hr 01/14/22 01/14/22 01/14/22 08:40 08:49 08:49 WBC 12.7 H RBC 5.22 Hgb 15.8 H Hct 49.3 H MCV 94.4 MCH 30.3 MCHC 32.0 RDW Std Deviation 47.0 H RDW Coeff of Neymar 13.5 Plt Count 225 MPV 12.8 H Immature Gran % (Auto) 0.500 Neut % (Auto) 78.3 H Lymph % (Auto) 12.9 L [place] % (Auto) 6.9 Eos % (Auto) 1.0 Baso % (Auto) 0.4 Absolute Neuts (auto) 9.9 H Absolute Lymphs (auto) 1.64 Nucleated RBC % 0 PT 25.5 H INR 2.4 APTT 48.6 H Sodium Potassium Chloride Carbon Dioxide Anion Gap BUN Creatinine Estim Creat Clear Calc Est GFR (MDRD) Af Amer Est GFR (MDRD) Non-Af BUN/Creatinine Ratio Glucose Lactic Acid Calcium Total Bilirubin AST ALT Alkaline Phosphatase Total Protein Albumin Globulin Albumin/Globulin Ratio Urine Color Yellow Urine Clarity Clear Urine pH 6.0 Ur Specific [place] 1.015 Urine Protein 15 H Urine Glucose (UA) Normal Urine Ketones Negative Urine Occult Blood 10 H Urine Nitrite Negative Urine Bilirubin Negative Urine Urobilinogen Normal Ur Leukocyte Esterase 25 H Urine RBC 0 SEEN Urine WBC 0 SEEN Ur Squamous Epith Cells 0-5 SEEN Urine Bacteria 0 SEEN Urine Mucus 0 SEEN 01/14/22 01/14/22 08:49 08:49 WBC RBC Hgb Hct MCV MCH MCHC RDW Std Deviation RDW Coeff of Neymar Plt Count MPV Immature Gran % (Auto) Neut % (Auto) Lymph % (Auto) [place] % (Auto) Eos % (Auto) Baso % (Auto) Absolute Neuts (auto) Absolute Lymphs (auto) Nucleated RBC % PT INR APTT Sodium 140 Potassium 3.7 Chloride 105 Carbon Dioxide 26.0 Anion Gap 9 BUN 11 Creatinine 1.40 H Estim Creat Clear Calc 29.15 Est GFR (MDRD) Af Amer 48 L Est GFR (MDRD) Non-Af 39 L BUN/Creatinine Ratio 7.9 L Glucose 134 H Lactic Acid 4.0 H* Calcium 9.0 Total Bilirubin 1.00 AST 31 ALT 39 Alkaline Phosphatase 116 Total Protein 7.2 Albumin 3.4 Globulin 3.8 Albumin/Globulin Ratio 0.9 Urine Color Urine Clarity Urine pH Ur Specific [place] Urine Protein Urine Glucose (UA) Urine Ketones Urine Occult Blood Urine Nitrite Urine Bilirubin Urine Urobilinogen Ur Leukocyte Esterase Urine RBC Urine WBC Ur Squamous Epith Cells Urine Bacteria Urine Mucus Radiography Diagnostic Testing: Clinical Impression(s) from Imaging Studies Abdomen/Pelvis CT 01/14/22 08:28 IMPRESSION: Findings suggestive of colitis of the transverse colon, descending colon as well as the sigmoid colon. Fatty infiltration of liver. Left renal cyst. Electronically Signed: Lane Marcus MD at 10:58 EST , Discharge Plan Triage Chief Complaint: GI Bleed ED Provider: Enrique Freeman Dx/Rx/DC Orders Clinical Impression: Colitis, Rectal bleeding Instructions: ED Understanding Colitis Prescriptions: New metronidazole [metronidazole] 500 MG tablet 500 mg PO Q6H Qty: 40 0RF ciprofloxacin HCl [ciprofloxacin HCl] 500 MG tablet 500 mg PO BID Qty: 20 0RF No Action montelukast 10 mg tablet 10 mg PO QPM benzonatate 100 mg capsule 100 mg PO DAILY vitamin [id number] acid 500-400 mcg tablet 1 tab PO DAILY Rx Instructions: administer with a meal All Day Allergy (cetirizine) 10 mg capsule 10 mg PO DAILY ferrous sulfate-vitamin C 39-75 mg tablet 1 tab PO .Daily (DME) handicap placard See Rx Instructions .Route .MEDSUPPLY Qty: 1 0RF Rx Instructions: As directed -Life time exp. 5 years Dx: generalized debility Paxlovid (EUA) 300 mg (150 mg x 2)-100 mg tablets,dose pack See Rx Instructions PO .COMPLEX Qty: 30 0RF Rx Instructions: take TWO 150 mg tablets of nirmatrelvir with ONE 100 mg tablet of ritonavir twice daily for 5 days PO aspirin 81 MG tablet,chewable 81 mg PO DAILY@0800 benzonatate 100 mg capsule 200 mg PO QHS Label Comments: TAKE 1 CAPSULE BY MOUTH THREE TIMES DAILY NEEDED FOR PERSISTENT COUGH cholecalciferol (vitamin D3) [Vitamin D3] 50 mcg (2,000 unit) Capsule 50 mcg PO DAILY albuterol sulfate [Ventolin HFA] 90 mcg/actuation HFA aerosol inhaler 2 puff INHALATION Q6H PRN (Reason: sob) Stiolto Respimat 2.5-2.5 mcg/actuation mist 2 puff INHALATION DAILY Toviaz 4 mg tablet extended release 24 hr 4 mg PO DAILY enalapril maleate 2.5 mg tablet 1.25 mg PO DAILY Qty: 45 3RF isosorbide mononitrate 10 mg tablet 10 mg tablet 10 mg PO BID Qty: 180 3RF metoprolol tartrate 25 mg tablet 12.5 mg PO BID Qty: 90 3RF nitroglycerin 0.4 mg tablet, sublingual 0.4 mg SUBLINGUAL Q5-15M PRN (Reason: Chest Pain) Qty: 25 3RF Rx Instructions: until response; do not exceed 3 doses per episode pantoprazole 40 mg tablet,delayed release (DR/EC) 40 mg PO DAILY Qty: 90 3RF potassium chloride 10 mEq tablet,ER particles/crystals 20 meq PO DAILY Qty: 180 3RF Rx Instructions: takes 2 tabs daily pravastatin 80 mg tablet 80 mg PO QHS Qty: 90 3RF warfarin 5 mg tablet 5 mg PO SUFRSA Qty: 90 3RF Protocol: Dose Management Condition: Tuesday Dose/Route: 2.5 mg Instruction: 1 x 2.5 mg tablet Condition: Tuesday Dose/Route: 2.5 mg Instruction: 1 x 2.5 mg tablet Condition: Tuesday Dose/Route: 2.5 mg Instruction: 1 x 2.5 mg tablet Condition: Tuesday Dose/Route: 2.5 mg Instruction: 1 x 2.5 mg tablet Condition: Dose/Route: 2.5 mg Instruction: 1 x 2.5 mg tablet Condition: Tuesday Dose/Route: 2.5 mg Instruction: 1 x 2.5 mg tablet Condition: Tuesday Dose/Route: 2.5 mg Instruction: 1 x 2.5 mg tablet Protocol Text: Adjustment Start Date: Tuesday01/01/22 INR Value: 2.7 INR Date: 01/01/22 Recheck Date: 01/15/22 warfarin 2.5 mg tablet 2.5 mg PO .COMPLEX Qty: 120 3RF Protocol: Dose Management Condition: Tuesday Dose/Route: 2.5 mg Instruction: 1 x 2.5 mg tablet Condition: Tuesday Dose/Route: 2.5 mg Instruction: 1 x 2.5 mg tablet Condition: Tuesday Dose/Route: 2.5 mg Instruction: 1 x 2.5 mg tablet Condition: Tuesday Dose/Route: 2.5 mg Instruction: 1 x 2.5 mg tablet Condition: Dose/Route: 2.5 mg Instruction: 1 x 2.5 mg tablet Condition: Tuesday Dose/Route: 2.5 mg Instruction: 1 x 2.5 mg tablet Condition: Tuesday Dose/Route: 2.5 mg Instruction: 1 x 2.5 mg tablet Protocol Text: Adjustment Start Date: Tuesday01/01/22 INR Value: 2.7 INR Date: 01/01/22 Recheck Date: 01/15/22 Rx Instructions: 2.5 mg orally daily except on Tuesday, take 2 tablets to = 5 mg, or as directed; dose changes often Primary Care Provider: Erasmo Pierre Referrals: Erasmo Pierre MD [Primary Care Provider] - 3-5 Days Zhen Kirk DO [Med Staff - Active Staff] - 5-7 Days Activity Restrictions/Additional Instructions: Take the Cipro as prescribed. This may interact with your Coumadin. Continue to monitor your pro time and INR. Follow-up with your primary care physician to get your INR rechecked in 3 days. Watch for worsening bleeding. Do not drink alcohol while taking Flagyl. Disposition Disposition: Home, Self Care Discharge Date/Time: 01/14/22 12:31
--- NOTE | 2022-01-14 08:28 | CT_ITS ---
STUDY: CT ABDOMEN AND PELVIS WITH CONTRAST REASON FOR EXAM: Female, 71 years old. Abdominal pain -- IV PO Contrast. History of GI bleed. RADIATION DOSAGE (If Supplied By Facility): CTDIvol = ( 16.18 ) mGy, DLP = ( 896.88 ) mGycm TECHNIQUE: Transaxial images were obtained from the dome of the diaphragm to the symphysis pubis with oral contrast. Oral and amp; IV Gastrografin and amp; 100mL Isovue-300 was administered. Sagittal and coronal images were reconstructed. Individualized dose optimization techniques were used for this CT. COMPARISON: Comparison is made with prior examination of 11/26/2020. FINDINGS: Stable minimal increased linear markings in the medial aspect of the lower lobes suggest some mild scarring. Dual-chamber pacemaker is seen. There is decreased attenuation of the liver consistent with steatosis. There are surgical clips in the gallbladder fossa consistent with a prior cholecystectomy. Normal spleen. Normal pancreas. Normal bilateral adrenal glands. Stable 2.4 cm cyst in the upper medial aspect of the right kidney. Normal left kidney. Normal visualized stomach. Normal small intestine. Findings suggestive of colitis involving the transverse colon, descending colon and sigmoid colon. The appendix is visualized and appears normal. There is scattered atherosclerotic calcification of the abdominal aorta and its major visceral branches, without a demonstrated aneurysm. Normal inferior vena cava. Normal retroperitoneum. Normal urinary bladder. There is absence of the uterus consistent with a prior hysterectomy. Normal abdominal wall. There are diffuse degenerative changes of the visualized lumbar spine. 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 CT/Abdomen/Pelvis WITH Contrast IMPRESSION: Findings suggestive of colitis of the transverse colon, descending colon as well as the sigmoid colon. Fatty infiltration of liver. Left renal cyst. Electronically Signed: Lane Marcus MD at 10:58 EST ,
[2022-01-14] MEDS: 0.9% Normal Saline 1,000 ML 1000 ML IV ×2 (08:45→10:40)
[2022-01-14] MEDS: Ondansetron 4 MG/2 ML Vial IV (08:45)
[2022-01-14 08:47] LABS: Bacteria 0 SEEN /hpf (None Seen); Mucous, Urine 0 SEEN /hpf (<or=2+); Red Blood Cells-Urine 0 SEEN /hpf (0-5); White Blood Cells 0 SEEN /hpf (0-5)
[2022-01-14 08:51] LABS: Color, Urine Yellow (Yellow); Glucose, Dipstick Normal (Normal); Ketone-Dipstick Negative (Negative); Leukocyte Esterase-Dipstick 25 /ul (Negative); Nitrite-Dipstick Negative (Negative); Occult Blood-Urine 10 /ul (Negative); Protein-Dipstick 15 mg/dl (Negative); Specific Gravity, Urine 1.015 (1.002-1.030); Urine Bilirubin Dipstick Negative (Negative); Urine Clarity Clear (Clear); Urine Urobilinogen Normal (Normal)
[2022-01-14 08:59] LABS: Absolute Lymphocyte Count 1.64 X10^3/uL (0.83-4.51); Absolute Neutrophil Count 9.9 X10^3/uL (2.0-7.7); Basophil# 0.05 X10^3/uL; Basophil% 0.4 % (0-1); Eosinophil# 0.13 X10^3/uL; Hematocrit 49.3 % (37-47); Hemoglobin 15.8 g/dL (12.0-15.0); Lymphocyte # 1.64 X10^3/ul (0.83-4.51); Lymphocyte % 12.9 % (19-41); Mean Corpuscular Hgb 30.3 pg (27.0-32.0); Mean Corpuscular Volume 94.4 fL (81-99); Mean Platelet Vol. 12.8 fl (6.2-12.0); Monocyte# 0.88 X10^3/uL; Monocyte% 6.9 % (0-10); NRBC Flagged by Analyzer 0 % (0-5); Neutrophil # 9.94 X10^3/uL (2.7-7.7); Neutrophil % 78.3 % (47-70); Platelet Count 225 K/mm3 (150-450); RBC Distribution Width CV 13.5 % (11.6-14.6); Red Blood Count 5.22 M/mm3 (4.2-5.4); White Blood Count 12.7 K/mm3 (4.4-11.0)
[2022-01-14 08:59] LABS: Squamous Epithelial Cells - UA 0-5 SEEN /hpf (5-10)
[2022-01-14 09:10] LABS: International Normalized Ratio 2.4; Prothrombin Time (Protime)PT. 25.5 SECONDS (11.7-14.9)
[2022-01-14 09:11] LABS: Partial Thromboplast Time 48.6 Seconds (24.1-36.2)
[2022-01-14 09:20] LABS: ALB/GLOB Ratio 0.9 RATIO (0.9-2.4); AST(SGOT) 31 U/L (15-37); Alanine Aminotransfer ALT/SGPT 39 U/L (13-56); Albumin, Serum 3.4 g/dL (3.2-5.0); Alkaline Phosphatase 116 U/L (45-117); Anion Gap 9 (5-15); BUN 11 mg/dL (7-18); BUN/Creat Ratio 7.9 RATIO (10-20); Chloride 105 mmol/L (98-107); EST Glomerular Filtration Rate 39 mL/min (>60); Est Glom Filt Rate - Afr Amer 48 mL/min (>60); Estimated Creatinine Clearance 29.15 ml/min; Globulin 3.8 g/dL (2.2-4.2); Glucose 134 mg/dL (74-106); Potassium 3.7 mmol/L (3.5-5.1); Protein, Total 7.2 g/dL (6.4-8.2); Sodium Level 140 mmol/L (136-145)
[2022-01-14 10:00] VITALS: BP 141/73; PULSE 81; RESP 18; O2SAT 94
[2022-01-14] MEDS: metroNIDAZOLE 500 MG Tablet PO (12:23)
[2022-01-14] MEDS: Ciprofloxacin 500 MG Tablet PO (12:23)
[2022-01-14 12:51] LABS: Reflex Lactate? Y
== END 2022-01-14 12:31 | disposition home or self-care (01) ==
PROVIDERS: Emergency Provider Emergency Medicine; PCP Family Medicine; Visit Provider Emergency Medicine
DX: K52.9 Noninfective gastroenteritis and colitis, unspecified (principal); J43.9 Emphysema, unspecified; E78.5 Hyperlipidemia, unspecified; K62.5 Hemorrhage of anus and rectum; I10 Essential (primary) hypertension; I25.10 Atherosclerotic heart disease of native coronary artery without angina pectoris; N32.81 Overactive bladder; K76.0 Fatty (change of) liver, not elsewhere classified; Z87.891 Personal history of nicotine dependence
CPT/HCPCS: 74177; 80053; 81001; 82274; 83605; 85025; 85610; 85730; 96361; 96374; 99284; J7030; Q9967; A4216; J2405

== ENCOUNTER → 2022-03-09 | Outpatient (CLI) | payer MEDICARE, MEDICAID, SELFPAY ==
[2022-03-09 12:16] LABS: Absolute Lymphocyte Count 2.58 X10^3/uL (0.83-4.51); Absolute Neutrophil Count 4.6 X10^3/uL (2.0-7.7); Basophil# 0.07 X10^3/uL; Basophil% 0.8 % (0-1); Eosinophil# 0.49 X10^3/uL; Eosinophils% 5.7 % (0-5); Hematocrit 47.4 % (37-47); Hemoglobin 15.5 g/dL (12.0-15.0); Lymphocyte # 2.58 X10^3/ul (0.83-4.51); Lymphocyte % 30.2 % (19-41); Mean Corp Hgb Conc 32.7 g/dL (32-36); Mean Corpuscular Hgb 31.6 pg (27.0-32.0); Mean Corpuscular Volume 96.7 fL (81-99); Mean Platelet Vol. 12.8 fl (6.2-12.0); Monocyte# 0.76 X10^3/uL; Monocyte% 8.9 % (0-10); NRBC Flagged by Analyzer 0 % (0-5); Neutrophil # 4.62 X10^3/uL (2.7-7.7); Neutrophil % 54.3 % (47-70); Platelet Count 222 K/mm3 (150-450); RBC Distribution Width CV 13.5 % (11.6-14.6); RBC Distribution Width SD 48.2 fl (35.1-43.9); White Blood Count 8.5 K/mm3 (4.4-11.0)
[2022-03-09 12:43] LABS: Vitamin D,25 Hydroxy 57.5 ng/mL
[2022-03-09 12:51] LABS: AST(SGOT) 37 U/L (15-37); Alanine Aminotransfer ALT/SGPT 51 U/L (13-56); Albumin, Serum 3.5 g/dL (3.2-5.0); Alkaline Phosphatase 74 U/L (45-117); Anion Gap 9 (5-15); BUN 12 mg/dL (7-18); BUN/Creat Ratio 10.2 RATIO (10-20); Calcium,Total 9.3 mg/dL (8.5-10.1); Chloride 105 mmol/L (98-107); Cholesterol 247 mg/dL (200); Creatinine, Serum 1.18 mg/dL (0.55-1.02); EST Glomerular Filtration Rate 48 mL/min (>60); Est Glom Filt Rate - Afr Amer 58 mL/min (>60); Globulin 3.5 g/dL (2.2-4.2); Glucose 117 mg/dL (74-106); High Density Lipoprotein 40 mg/dL; Magnesium 2.2 mg/dL (1.6-2.6); Potassium 4.4 mmol/L (3.5-5.1); Sodium Level 140 mmol/L (136-145); Triglycerides 216 mg/dL; Very Low Density Lipoprotein 43 mg/dL (5-40)
[2022-03-09 13:20] LABS: Hemoglobin A1c 5.7 % (3.8-5.6)
== END | disposition home or self-care (01) ==
LOC: MFPLAB 10:20
PROVIDERS: PCP Family Medicine; Referring Provider Family Medicine; Visit Provider Family Medicine
DX: I48.91 Unspecified atrial fibrillation (principal); R73.02 Impaired glucose tolerance (oral); E78.5 Hyperlipidemia, unspecified; M81.0 Age-related osteoporosis without current pathological fracture
CPT/HCPCS: 36415; 80053; 80061; 82306; 83036; 83735; 85025

== ENCOUNTER → 2022-03-17 | Outpatient (CLI) | payer MEDICARE, MEDICAID, SELFPAY ==
--- NOTE | 2022-03-17 13:19 | CT_ITS ---
STUDY: LOW DOSE CT LUNG CANCER SCREENING REASON FOR EXAM: Female, 72 years old. HX TOBACCO USE. Patient smoked 3 packs per day for 50 years. Patient is a nonsmoker since 8 years. RADIATION DOSAGE (If Supplied By Facility): CTDIvol = ( 2.39 ) mGy, DLP = ( 77.43 ) mGycm TECHNIQUE: No contrast was administered. Low dose technique was utilized (average mAS-38 and kVp 120). 1.25 mm axial source images with a slice interval of 1.25-mm were reconstructed in lung windows. 2.5 mm axial source images with a slice interval of 2.5-mm were reconstructed in lung windows. 5.0 mm axial source images with a slice interval of 5.0-mm were reconstructed in soft tissue windows. COMPARISON: Comparison is made with prior study dated 11/29/2018. NODULES: No suspicious nodules are seen. Emphysema: Mild degree of emphysematous changes. Stable scarring in the right lung apex. Stable focal scarring in the anterior lateral aspect of the lingular segment of the left upper lobe. Endobronchial lesion: None Aorta: Atherosclerotic plaque formation. CORONARY ARTERIES: Coronary artery calcification is not seen. Heart: Status post CABG. Pulmonary artery: Unremarkable. Mediastinal nodes: Stable small benign-appearing mediastinal lymph nodes. Other chest and abdominal findings: CT/Low Dose CT Lung Screening IMPRESSION: Lung-RADS category 2 - Continue annual screening with LDCT in 12 months. IMPORTANT NOTES FOR USE: ACR Lung-RADS Version 1.1 Assessment Categories Release Date: 2018 Category: Coded 0-4 bases on nodule(s) with highest degree of suspicion. Negative screen is defined as categories 1 and 2; a positive screen is defined as categories 3 and 4. Category 3 and 4A nodules that are unchanged on interval CT should be coded as category 2, and individuals returned to screening in 12 months. Category 4X: Category 3 or 4 nodules with additional imaging findings that increase the suspicion of lung cancer, such as spiculation, GGN that doubles in size in 1 year, enlarged lymph notes, etc. Category Modifiers: S (significant finding unrelated to lung cancer) Electronically Signed: Lane Marcus MD at 14:48 EST ,
== END | disposition home or self-care (01) ==
LOC: CT 12:48
PROVIDERS: PCP Family Medicine; Referring Provider Family Medicine; Visit Provider Family Medicine
DX: Z87.891 Personal history of nicotine dependence (principal)
CPT/HCPCS: 71271

== ENCOUNTER → 2022-06-09 | Outpatient (CLI) | payer MEDICARE, MEDICAID, SELFPAY ==
[2022-06-09 12:24] LABS: Absolute Lymphocyte Count 2.58 X10^3/uL (0.83-4.51); Basophil# 0.05 X10^3/uL; Basophil% 0.6 % (0-1); Eosinophil# 0.43 X10^3/uL; Eosinophils% 4.8 % (0-5); Hematocrit 47.5 % (37-47); Hemoglobin 15.3 g/dL (12.0-15.0); Lymphocyte # 2.58 X10^3/ul (0.83-4.51); Mean Corp Hgb Conc 32.2 g/dL (32-36); Mean Corpuscular Hgb 30.5 pg (27.0-32.0); Mean Corpuscular Volume 94.8 fL (81-99); Mean Platelet Vol. 13.2 fl (6.2-12.0); Monocyte# 0.76 X10^3/uL; Monocyte% 8.5 % (0-10); NRBC Flagged by Analyzer 0 % (0-5); Neutrophil # 5.04 X10^3/uL (2.7-7.7); Neutrophil % 56.8 % (47-70); Platelet Count 212 K/mm3 (150-450); RBC Distribution Width CV 13.5 % (11.6-14.6); RBC Distribution Width SD 47.4 fl (35.1-43.9); Red Blood Count 5.01 M/mm3 (4.2-5.4); White Blood Count 8.9 K/mm3 (4.4-11.0)
[2022-06-09 12:32] LABS: Vitamin D,25 Hydroxy 51.7 ng/mL
[2022-06-09 12:39] LABS: ALB/GLOB Ratio 0.9 RATIO (0.9-2.4); AST(SGOT) 59 U/L (15-37); Alanine Aminotransfer ALT/SGPT 74 U/L (13-56); Albumin, Serum 3.4 g/dL (3.2-5.0); Alkaline Phosphatase 81 U/L (45-117); Anion Gap 5 (5-15); BUN 14 mg/dL (7-18); BUN/Creat Ratio 11.7 RATIO (10-20); Calcium,Total 9.1 mg/dL (8.5-10.1); Chloride 105 mmol/L (98-107); Cholesterol 252 mg/dL (200); EST Glomerular Filtration Rate 47 mL/min (>60); Est Glom Filt Rate - Afr Amer 57 mL/min (>60); Globulin 3.7 g/dL (2.2-4.2); Glucose 110 mg/dL (74-106); High Density Lipoprotein 41 mg/dL; Magnesium 2.4 mg/dL (1.6-2.6); Potassium 3.7 mmol/L (3.5-5.1); Protein, Total 7.1 g/dL (6.4-8.2); Sodium Level 137 mmol/L (136-145); Thyroid Stim Hormone (TSH) 3.49 uIU/mL (0.358-3.74); Triglycerides 274 mg/dL; Very Low Density Lipoprotein 55 mg/dL (5-40)
[2022-06-09 13:38] LABS: Hemoglobin A1c 5.9 % (3.8-5.6)
[2022-06-11 16:32] LABS: Hepatitis B Surface Antibody Non-Reactive; Hepatitis B Surface Antigen Non-Reactive (Nonreactive); Hepatitis C Antibody Non-Reactive (Nonreactive)
== END | disposition home or self-care (01) ==
LOC: MFPLAB 10:03
PROVIDERS: PCP Family Medicine; Referring Provider Family Medicine; Visit Provider Family Medicine
DX: R79.89 Other specified abnormal findings of blood chemistry (principal); I48.91 Unspecified atrial fibrillation; I25.10 Atherosclerotic heart disease of native coronary artery without angina pectoris; R73.02 Impaired glucose tolerance (oral); M81.0 Age-related osteoporosis without current pathological fracture
CPT/HCPCS: 36415; 80053; 80061; 82306; 83036; 83735; 84443; 85025; 86706; 86803; 87340

== ENCOUNTER → 2022-06-14 | Outpatient (CLI) | payer MEDICARE, MEDICAID, SELFPAY ==
--- NOTE | 2022-06-14 12:47 | ART_ITS ---
Reason For Study: Claudication Procedure A bilateral lower extremity continuous wave Doppler with analog waveform analysis,segmental pressures,and ankle brachial indexes without exercise. Patient showed up in wheelchair and walked with cane, did not walk on treadmill. Left Segmental Pressures Left brachial= 142mmHg. Left thigh = 106mmHg. Left calf = 89mmHg. Left posterior tibial artery = 97mmHg. Left dorsalis pedis artery = 111mmHg. Left digit = 89 mmHg. The left dorsalis pedis waveforms are biphasic. The left posterior tibial artery waveforms are biphasic. Right Segmental Pressures Right brachial= 146mmHg. Right thigh = 142mmHg. Right calf = 101mmHg. Right posterior tibial artery = 122mmHg. Right dorsalis pedis artery = 128mmHg. Right digit = 124 mmHg. The right dorsalis pedis waveforms are triphasic. The right posterior tibial artery waveforms are triphasic. Indices The right ankle brachial index by the dorsalis pedis is 0.88. The right ankle brachial index by the posterior tibial artery is 0.84. The right digital-brachial index is 0.85. The left ankle brachial index by the dorsalis pedis is 0.76. The left ankle brachial index by the posterior tibial artery is 0.66. The left digital-brachial index is 0.61. VL/Lower Ext Art Exam w/o Exercis Interpretation Summary Right normal at rest with triphasic flow and RANJAN 0.88. Left biphasic flow and A BI 0.85. DBI 0.85 and 0.61. Ordering Physician: Erasmo Pierre Referring Physician: Erasmo Pierre Performed By: Socorro Hernández RVT
== END | disposition home or self-care (01) ==
PROVIDERS: PCP Family Medicine; Referring Provider Family Medicine; Visit Provider Family Medicine
DX: R09.89 Other specified symptoms and signs involving the circulatory and respiratory systems (principal)
CPT/HCPCS: 93923

== ENCOUNTER → 2022-07-27 | Outpatient (CLI) | payer MEDICARE, MEDICAID, SELFPAY | END | disposition home or self-care (01) | LOC: EN 10:02 → PAT 10:04 | PROVIDERS: PCP Family Medicine; Visit Provider Internal Medicine Gastroenterology | DX: Z01.818 Encounter for other preprocedural examination (principal) ==

== ENCOUNTER → 2022-08-13 | Outpatient (CLI) | payer MEDICARE, MEDICAID, SELFPAY ==
--- NOTE | 2022-08-13 08:50 | AAVD_ITS ---
Reason For Study: PVD Aorta Measurements Aorta Doppler Measurements Proximal aorta measures1.46 x 1.55cm. in cross- Peak systolic flow velocities within the proximal sectional axis. aorta measure 39.8 cm/sec. Proximal aorta measures1.41cm. in longitudinal Peak systolic flow velocities within the mid aorta axis. measure 56.7 cm/sec. Mid aorta measures1.21 x 1.21cm. in cross- Peak systolic flow velocities within the distal sectional axis. aorta measure 55.6 cm/sec. Mid aorta measures1.25cm. in longitudinal axis. Distal aorta measures1.08 x 1.20cm. in cross- sectional axis. Distal aorta measures1.18cm. in longitudinal axis. Left Iliac Artery Left iliac artery measures 0.75 x 0.77 cm. in the cross-sectional axis. Left iliac artery measures 0.81 cm. in the longitudinal axis. Peak systolic velocity in the left iliac artery measures 110.4 cm/sec. Right Iliac Artery Right iliac artery measures 0.90 x 0.94 cm. in the cross-sectional axis. Right iliac artery measures 0.93 cm. in the longitudinal axis. Peak systolic velocity in the right iliac artery measures 149.3 cm/sec. Procedure Aorta IVC Iliac vasculature or bypass grafts 60496. The exam was of fair technical quality due to Excessive Bowel Gas. Exam performed in department. VL/Abd Aortic/IVC Duplex scan Interpretation Summary No aortoiliac aneurysm or stenosis. Ordering Physician: William Kraus Referring Physician: Erasmo Pierre Performed By: Fernie Davenport RVT
--- NOTE | 2022-08-13 08:50 | CDU_ITS ---
Reason For Study: Carotid Stenosis Rt. Velocities/BP Lt. Velocities/BP Prox CCA 61.0/14.7 cm/sec. Prox CCA 64.8/20.4 cm/sec. Mid CCA 49.7/11.9 cm/sec. Mid CCA 62.9/18.5 cm/sec. Dist CCA 52.2/16.3 cm/sec. Dist CCA 88.8/26.7 cm/sec. Prox ICA 51.3/22.0 cm/sec. Prox ICA 138.1/32.1 cm/sec. Mid ICA 55.3/22.3 cm/sec. Mid ICA 134.4/35.8 cm/sec. Dist ICA 80.2/24.9 cm/sec. Dist ICA 118.0/35.8 cm/sec. Rt. ICA/CCA = 1.6. Lt. ICA/CCA = 2.2. Prox ECA 179.6/11.1 cm/sec. Prox ECA 122.1/16.7 cm/sec. Rt. Vert. 30.0/12.4 cm/sec. Lt. Vert. 49.7/17.6 cm/sec. Right Extracranial There is homogeneous, smooth atherosclerotic plaque noted in the right common carotid artery. There is heterogeneous, irregular atherosclerotic plaque noted in the right internal carotid artery. There is heterogeneous, irregular atherosclerotic plaque noted in the right external carotid artery. Antegrade flow is noted in the right vertebral artery. There is heterogeneous, irregular atherosclerotic plaque noted in the right bulb. Left Extracranial There is homogeneous, smooth atherosclerotic plaque noted in the left common carotid artery. There is heterogeneous, irregular atherosclerotic plaque noted in the left internal carotid artery. HX Lt Endarterectomy. There is heterogeneous, irregular atherosclerotic plaque noted in the left external carotid artery. Antegrade flow is noted in the left vertebral artery. There is heterogeneous, irregular atherosclerotic plaque noted in the left bulb. Procedure Carotid Duplex 70831. This is a Carotid Duplex examination using B-mode, color flow and specral Doppler. The exam was diagnostic. Exam performed in department. VL/Carotid Duplex Ultrasound Interpretation Summary Mild (<50%) stenosis right extracranial internal carotid. Moderate (50-69%) brett nosis left extracranial internal carotid. Flow within the vertebral arteries is antegrade bilaterally. Ordering Physician: William Kraus Referring Physician: William Kraus Performed By: Fernie Davenport RVT
== END | disposition home or self-care (01) ==
LOC: CVS 08:47
PROVIDERS: PCP Family Medicine; Referring Provider Surgery Vascular Surgery; Visit Provider Surgery Vascular Surgery
DX: I77.1 Stricture of artery (principal); I73.9 Peripheral vascular disease, unspecified; I70.0 Atherosclerosis of aorta; I63.9 Cerebral infarction, unspecified; I65.23 Occlusion and stenosis of bilateral carotid arteries; F17.200 Nicotine dependence, unspecified, uncomplicated
CPT/HCPCS: 93880; 93978

== ENCOUNTER → 2022-10-26 | Outpatient (CLI) | payer MEDICARE, MEDICAID, SELFPAY ==
[2022-10-26 12:28] LABS: Absolute Lymphocyte Count 3.51 X10^3/uL (0.83-4.51); Absolute Neutrophil Count 7.3 X10^3/uL (2.0-7.7); Basophil# 0.06 X10^3/uL; Basophil% 0.5 % (0-1); Eosinophil# 0.38 X10^3/uL; Eosinophils% 3.1 % (0-5); Hematocrit 47.7 % (37-47); Hemoglobin 15.2 g/dL (12.0-15.0); Lymphocyte # 3.51 X10^3/ul (0.83-4.51); Lymphocyte % 28.3 % (19-41); Mean Corp Hgb Conc 31.9 g/dL (32-36); Mean Corpuscular Volume 97.3 fL (81-99); Mean Platelet Vol. 13.1 fl (6.2-12.0); Monocyte# 1.06 X10^3/uL; Monocyte% 8.6 % (0-10); NRBC Flagged by Analyzer 0 % (0-5); Neutrophil # 7.32 X10^3/uL (2.7-7.7); Platelet Count 226 K/mm3 (150-450); RBC Distribution Width CV 13.3 % (11.6-14.6); RBC Distribution Width SD 48.1 fl (35.1-43.9); White Blood Count 12.4 K/mm3 (4.4-11.0)
[2022-10-26 13:05] LABS: ALB/GLOB Ratio 0.8 RATIO (0.9-2.4); AST(SGOT) 30 U/L (15-37); Alanine Aminotransfer ALT/SGPT 43 U/L (13-56); Albumin, Serum 3.3 g/dL (3.2-5.0); Alkaline Phosphatase 78 U/L (45-117); Anion Gap 7 (5-15); BUN 12 mg/dL (7-18); Calcium,Total 8.8 mg/dL (8.5-10.1); Chloride 102 mmol/L (98-107); Cholesterol 203 mg/dL (200); Creatinine, Serum 1.34 mg/dL (0.55-1.02); EST Glomerular Filtration Rate 41 mL/min (>60); Est Glom Filt Rate - Afr Amer 50 mL/min (>60); Globulin 3.9 g/dL (2.2-4.2); Glucose 109 mg/dL (74-106); High Density Lipoprotein 41 mg/dL; Magnesium 2.1 mg/dL (1.6-2.6); Phosphorus 2.3 mg/dL (2.5-4.9); Potassium 3.4 mmol/L (3.5-5.1); Protein, Total 7.2 g/dL (6.4-8.2); Sodium Level 135 mmol/L (136-145); Thyroid Stim Hormone (TSH) 2.37 uIU/mL (0.358-3.74); Triglycerides 231 mg/dL; Very Low Density Lipoprotein 46 mg/dL (5-40)
[2022-10-26 13:12] LABS: Hemoglobin A1c 5.6 % (3.8-5.6)
== END | disposition home or self-care (01) ==
LOC: MFPLAB 10:57
PROVIDERS: PCP Family Medicine; Visit Provider Family Medicine
DX: N18.30 Chronic kidney disease, stage 3 unspecified (principal); I48.91 Unspecified atrial fibrillation; R73.02 Impaired glucose tolerance (oral)
CPT/HCPCS: 36415; 80053; 80061; 83036; 83735; 83970; 84100; 84443; 85025

== ENCOUNTER 2022-12-02 12:55 | Emergency (ER) | payer MEDICARE, MEDICAID, SELFPAY ==
[2022-12-02 12:57] VITALS: BP 141/99; PULSE 60; RESP 18; TEMP 36; O2SAT 98
[2022-12-02 13:06] VITALS: BP 137/102; PULSE 60; RESP 18; O2SAT 98
[2022-12-02 13:27] VITALS: BMI 34.4
--- NOTE | 2022-12-02 13:29 | EDS_ITS ---
HPI History of Present Illness Chief Complaint: Chest Pain Informant: patient Onset/Context/Timing Onset: Today Narrative Narrative: Patient presents with a weird feeling in her chest. She states that she ate some gluten-free chicken nuggets at 1130 this morning and had not eaten anything prior to this. She did take her medications. She has never had this particular food before. She states shortly after eating it she had a weird sensation in her chest. She felt somewhat dizzy and bent over to put her head between her knees. When she sat back up she felt the room was spinning for a moment. She does report increased shortness of breath and some cough. 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 Loss of hearing Low iron Pacemaker Pacemaker Paroxysmal A-fib Post-menopausal Presence of cardiac pacemaker Presence of stent in coronary artery Restless legs Shortness of breath on exertion Sick sinus syndrome Sick sinus syndrome with tachycardia Syncope Wears dentures Wears glasses Home Medications aspirin 81 mg chewable tablet 81 mg PO DAILY@0800 health maintenance 08/18/18 [History Last Taken 11/25/20 09:00] montelukast 10 mg tablet 10 mg PO QPM allergy 02/22/19 [History Last Taken 11/25/20 21:00] albuterol sulfate 90 mcg/actuation aerosol inhaler (Ventolin HFA) 2 puff inhalation Q6H PRN sob 03/05/19 [History Last Taken Unknown] tiotropium 2.5 mcg-olodaterol 2.5 mcg/actuation mist for inhalation (Stiolto Respimat) 2 puff inhalation DAILY breathing 03/05/19 [History Last Taken 11/25/20 09:00] cetirizine 10 mg capsule (All Day Allergy (cetirizine)) 10 mg PO DAILY allergies 10/13/20 [History Last Taken 11/25/20 09:00] handicap placard #1 ea 10/13/20 [Rx Last Taken Unknown] vitamin B12 500 mcg-folic acid 400 mcg tablet 1 tab PO DAILY health maintenance 10/13/20 [History Last Taken 11/25/20 09:00] benzonatate 100 mg capsule 200 mg PO BID COPD 11/26/20 [History Last Taken 11/25/20 21:00] cholecalciferol (vitamin D3) 50 mcg (2,000 unit) capsule (Vitamin D3) 50 mcg PO DAILY health maintenance 11/26/20 [History Last Taken 11/25/20 09:00] nitroglycerin 0.4 mg sublingual tablet 0.4 mg sublingual Q5-15M PRN Chest Pain #25 tabs 07/22/21 [Rx Last Taken Unknown] dicyclomine 10 mg capsule 10 mg PO BID #60 caps 02/22/22 [Rx Last Taken Unknown] mesalamine 1.2 gram tablet,delayed release 2.4 g (2 x 1.2 gram) PO DAILY #60 tabs 02/22/22 [Rx Last Taken Unknown] fesoterodine 4 mg tablet,extended release 24 hr (Toviaz) 4 mg PO DAILY 02/23/22 [History Last Taken Unknown] potassium chloride 10 mEq tablet,extended release(part/cryst) 20 meq (2 x 10 mEq) PO DAILY #180 tabs 04/05/22 [Rx Last Taken Unknown] isosorbide mononitrate 10 mg tablet 10 mg PO BID #180 tabs 07/06/22 [Rx Last Taken Unknown] pantoprazole 40 mg tablet,delayed release 40 mg PO DAILY stomach #90 tabs 07/08/22 [Rx Last Taken Unknown] pravastatin 80 mg tablet 80 mg PO QHS #90 tabs 07/15/22 [Rx Last Taken Unknown] metoprolol tartrate 25 mg tablet 12.5 mg (1/2 x 25 mg) PO BID #90 tabs 07/20/22 [Rx Last Taken Unknown] warfarin 2.5 mg tablet 5 mg PO DAILY blood thinner #180 tabs 07/20/22 [Rx Last Taken Unknown] enalapril maleate 2.5 mg tablet 2.5 mg PO DAILY #90 tabs 07/22/22 [Rx Last Taken Unknown] warfarin 5 mg tablet 5 mg PO .COMPLEX #90 tabs 07/27/22 [Rx Last Taken Unknown] evolocumab 420 mg/3.5 mL subcutaneous wearable injector (Repatha Pushtronex) mg subcut 08/25/22 [History Last Taken Unknown] tizanidine 4 mg capsule (Zanaflex) 4 mg PO TID PRN 08/25/22 [History Last Taken Unknown] tramadol 50 mg tablet 50 mg PO BID PRN 08/25/22 [History Last Taken Unknown] Allergy/AdvReac Type Severity Reaction Status Date / Time ciprofloxacin [From Cipro] Allergy Intermediate Itching Verified 12/02/22 12:57 atorvastatin calcium Allergy Hives Verified 12/02/22 12:57 [From Lipitor] gluten Allergy Food Verified 12/02/22 12:57 Allergy metoprolol succinate Allergy Rash Verified 12/02/22 12:57 [From Toprol XL] niacin Allergy Rash Verified 12/02/22 12:57 [From Niaspan Extended-Release] Penicillins Allergy Rash Verified 12/02/22 12:57 Sulfa (Sulfonamide Allergy Itching Verified 08/25/22 09:50 Antibiotics) regadenoson AdvReac Severe Anaphylaxis Verified 12/02/22 12:57 metronidazole AdvReac Intermediate lightheaded Verified 12/02/22 12:57 and ataxia Family History Mother CVA (cerebral vascular accident) CAD (coronary artery disease) Surgical History History of cardiac catheterization History of cholecystectomy History of esophagogastroduodenoscopy (EGD) History of left-sided carotid endarterectomy (~06/2006) History of total hysterectomy Hx of CABG (~06/29/06) Status post placement of cardiac pacemaker Social History household members: none Smoking Status: Former smoker alcohol intake: never substance use type: does not use ROS ROS ED Constitutional Constitutional ED: Denies chills or fever(s) Eyes Eyes: Denies change in vision or discharge from eye(s) ENT ENT ED: Denies discharge from eye(s), rhinorrhea or sore throat Cardiovascular Cardiovascular: Reports chest pain; Denies palpitations Respiratory/Chest Respiratory/Chest: Reports cough and dyspnea Gastrointestinal Gastrointestinal: Denies abdominal pain, diarrhea, nausea or vomiting Genitourinary Genitourinary ED: Denies dysuria Musculoskeletal Musculoskeletal: Denies back pain or extremity pain Integumentary Denies Abrasions or rash Neurologic Neurologic: Denies headache(s) or weakness Psychiatric Psychiatric: Reports anxiety; Denies depression Allergic/Immunologic Allergic/Immunologic ED: Denies lip swelling or urticaria EXAM Physical Exam Const Vital Signs: 12/02/22 12:57 12/02/22 13:06 12/02/22 13:07 Temperature 96.8 F L Temperature Source Temporal Pulse Rate 60 60 Respiratory Rate 18 18 Respiratory Effort Normal Blood Pressure 141/99 H 137/102 H Blood Pressure Mean 113 113 Pulse Ox 98 98 Oxygen Delivery Method Room Air Room Air Positive well nourished and well developed General Appearance ED: well developed HEENT Reports normocephalic and head/scalp atraumatic Eyes PERRL and EOMs intact bilaterally Neck supple Chest Wall inspection of chest normal and palpation of chest normal Resp normal respiratory effort and clear to auscultation bilaterally Cardio regular rate and regular rhythm GI soft to palpation Palpation: soft Extremity normal to inspection Neuro oriented x3 and no sensory deficits noted Sensorium / Orientation: alert Motor Exam: strength 5/5 throughout Psych mental status grossly normal Skin no rashes or lesions noted MDM MDM MDM Narrative Medical decision making narrative: Patient placed on digital product specialist. EKG obtained to evaluate for cardiac arrhythmia/ischemia. Chest x-ray obtained to evaluate for acute lung pathology, cardiac size, or mediastinal abnormality. Labwork obtained to evaluate for leukocytosis, anemia, and electrolyte derangement. Patient given IV Protonix for reflux. History & Record Review Discussion w/independent historian: Patient Additional record(s) reviewed:: Prior outpatient record, Prior ED visit and Prior labs Lab Data Attestation: I reviewed the patient's lab results. Labs: Laboratory Results - last 24 hr 12/02/22 13:20 WBC 7.8 RBC 4.84 Hgb 15.1 H Hct 46.7 MCV 96.5 MCH 31.2 MCHC 32.3 RDW Std Deviation 47.7 H RDW Coeff of Neymar 13.4 Plt Count 190 MPV 12.6 H Immature Gran % (Auto) 0.400 Neut % (Auto) 63.0 Lymph % (Auto) 24.1 [place] % (Auto) 8.4 Eos % (Auto) 3.6 Baso % (Auto) 0.5 Absolute Neuts (auto) 4.9 Absolute Lymphs (auto) 1.87 Nucleated RBC % 0 PT 21.7 H INR 1.9 Sodium 137 Potassium 3.4 L Chloride 106 Carbon Dioxide 28.0 Anion Gap 3 L BUN 10 Creatinine 1.09 H Estim Creat Clear Calc 36.90 Est GFR (MDRD) Af Amer 63 Est GFR (MDRD) Non-Af 52 L BUN/Creatinine Ratio 9.2 L Glucose 138 H Calcium 8.7 Troponin I High Sens 17 Radiography Chest X-Ray - ED: 1 View, Read by ED Physician and Chronic Changes Diagnostic Testing: Clinical Impression(s) from Imaging Studies Chest X-Ray 12/02/22 13:41 IMPRESSION: No acute cardiopulmonary process identified. Electronically Signed: Roxanne Madden MD at 14:11 EDT Reading Location ID and State: [facility] / [place] Tel , Service support , EKG Initial EKG: Attestation: I personally reviewed and interpreted this EKG as follows: Interpretation: - Comments: Paced rhythm at 68 bpm. Occasional PVCs. No acute ischemia. Treatment and Re-Evaluation :: EKG reveals no evidence of acute ischemia. Portable chest x-ray per my interpretation was chronic changes with pacer wires intact. Radiology interpretation reviewed. BC was normal white count at 7.8 with a hemoglobin of 15.1. INR is 1.9. Chemistry studies reveal slightly low potassium at 3.4. Glucose is 138. Troponin is normal at 17. Patient was given Protonix here. I do suspect that she had reflux with some esophageal spasm and likely even some gastric acid in your trachea which caused her to cough. I do not feel she needs repeat troponin or further work-up at this time. She does feel improved on repeat exam. Discharge Plan Triage Chief Complaint: Chest Pain ED Provider: Alanna Kim Dx/Rx/DC Orders Clinical Impression: Atypical chest pain, Gastroesophageal reflux disease Instructions: ED Chest Pain, Noncardiac, ED GERD (Adult) Prescriptions: No Action montelukast 10 mg tablet 10 mg PO QPM vitamin [id number] acid 500-400 mcg tablet 1 tab PO DAILY Rx Instructions: administer with a meal All Day Allergy (cetirizine) 10 mg capsule 10 mg PO DAILY (DME) handicap placard See Rx Instructions .Route .MEDSUPPLY Qty: 1 0RF Rx Instructions: As directed -Life time exp. 5 years Dx: generalized debility fesoterodine [Toviaz] 4 mg tablet extended release 24 hr 4 mg PO DAILY dicyclomine 10 mg capsule 10 mg PO BID Qty: 60 5RF mesalamine 1.2 gram tablet,delayed release (DR/EC) 2.4 g PO DAILY Qty: 60 3RF tramadol 50 mg tablet 50 mg PO BID PRN tizanidine [Zanaflex] 4 mg capsule 4 mg PO TID PRN Repatha Pushtronex 420 mg/3.5 mL wearable injector subcut aspirin 81 MG tablet,chewable 81 mg PO DAILY@0800 benzonatate 100 mg capsule 200 mg PO BID Patient Comments: TAKE 1 CAPSULE BY MOUTH THREE TIMES DAILY NEEDED FOR PERSISTENT COUGH cholecalciferol (vitamin D3) [Vitamin D3] 50 mcg (2,000 unit) Capsule 50 mcg PO DAILY albuterol sulfate [Ventolin HFA] 90 mcg/actuation HFA aerosol inhaler 2 puff INHALATION Q6H PRN (Reason: sob) Stiolto Respimat 2.5-2.5 mcg/actuation mist 2 puff INHALATION DAILY nitroglycerin 0.4 mg tablet, sublingual 0.4 mg SUBLINGUAL Q5-15M PRN (Reason: Chest Pain) Qty: 25 3RF Rx Instructions: until response; do not exceed 3 doses per episode potassium chloride 10 mEq tablet,ER particles/crystals 20 meq PO DAILY Qty: 180 3RF Rx Instructions: takes 2 tabs daily isosorbide mononitrate 10 mg tablet 10 mg tablet 10 mg PO BID Qty: 180 3RF pantoprazole 40 mg tablet,delayed release (DR/EC) 40 mg PO DAILY Qty: 90 3RF pravastatin 80 mg tablet 80 mg PO QHS Qty: 90 3RF metoprolol tartrate 25 mg tablet 12.5 mg PO BID Qty: 90 3RF warfarin 2.5 mg tablet 5 mg PO DAILY Qty: 180 3RF Protocol: Dose Management Condition: Tuesday Dose/Route: 2.5 mg Instruction: 1 x 2.5 mg tablet Condition: Tuesday Dose/Route: 2.5 mg Instruction: 1 x 2.5 mg tablet Condition: Tuesday Dose/Route: 2.5 mg Instruction: 1 x 2.5 mg tablet Condition: Tuesday Dose/Route: 2.5 mg Instruction: 1 x 2.5 mg tablet Condition: Dose/Route: 2.5 mg Instruction: 1 x 2.5 mg tablet Condition: Tuesday Dose/Route: 2.5 mg Instruction: 1 x 2.5 mg tablet Condition: Tuesday Dose/Route: 5 mg Instruction: 1 x 5 mg tablet Protocol Text: Adjustment Start Date: Tuesday11/19/22 INR Value: 3.0 INR Date: 11/19/22 Recheck Date: 11/26/22 Rx Instructions: 2.5 mg orally three days a week, take 2 tablets to = 5 mg 4 days a week, or as directed; dose changes often enalapril maleate 2.5 mg tablet 2.5 mg PO DAILY Qty: 90 3RF warfarin 5 mg tablet 5 mg PO .COMPLEX Qty: 90 3RF Protocol: Dose Management Condition: Tuesday Dose/Route: 2.5 mg Instruction: 1 x 2.5 mg tablet Condition: Tuesday Dose/Route: 2.5 mg Instruction: 1 x 2.5 mg tablet Condition: Tuesday Dose/Route: 2.5 mg Instruction: 1 x 2.5 mg tablet Condition: Tuesday Dose/Route: 2.5 mg Instruction: 1 x 2.5 mg tablet Condition: Dose/Route: 2.5 mg Instruction: 1 x 2.5 mg tablet Condition: Tuesday Dose/Route: 2.5 mg Instruction: 1 x 2.5 mg tablet Condition: Tuesday Dose/Route: 5 mg Instruction: 1 x 5 mg tablet Protocol Text: Adjustment Start Date: Tuesday11/19/22 INR Value: 3.0 INR Date: 11/19/22 Recheck Date: 11/26/22 Rx Instructions: 5 mg orally take one tab bymouth every Tue Sat Sun Tue and then take a 2.5 mg tab the other days or as directed; Primary Care Provider: Erasmo Pierre Referrals: Erasmo Pierre MD [Primary Care Provider] - As Needed Disposition Disposition: Home, Self Care
[2022-12-02 13:39] LABS: Absolute Lymphocyte Count 1.87 X10^3/uL (0.83-4.51); Absolute Neutrophil Count 4.9 X10^3/uL (2.0-7.7); Basophil# 0.04 X10^3/uL; Basophil% 0.5 % (0-1); Eosinophil# 0.28 X10^3/uL; Eosinophils% 3.6 % (0-5); Hematocrit 46.7 % (37-47); Hemoglobin 15.1 g/dL (12.0-15.0); Lymphocyte # 1.87 X10^3/ul (0.83-4.51); Lymphocyte % 24.1 % (19-41); Mean Corp Hgb Conc 32.3 g/dL (32-36); Mean Corpuscular Hgb 31.2 pg (27.0-32.0); Mean Corpuscular Volume 96.5 fL (81-99); Mean Platelet Vol. 12.6 fl (6.2-12.0); Monocyte# 0.65 X10^3/uL; Monocyte% 8.4 % (0-10); NRBC Flagged by Analyzer 0 % (0-5); Platelet Count 190 K/mm3 (150-450); RBC Distribution Width CV 13.4 % (11.6-14.6); RBC Distribution Width SD 47.7 fl (35.1-43.9); Red Blood Count 4.84 M/mm3 (4.2-5.4); White Blood Count 7.8 K/mm3 (4.4-11.0)
--- NOTE | 2022-12-02 13:41 | RAD_ITS ---
HISTORY: chest pain. TECHNIQUE: XR Chest 1 View. COMPARISON: 05/07/2021. FINDINGS: CARDIOMEDIASTINAL BORDERS: Cardiac silhouette within normal limits in size with pacemaker again noted. Mediastinal contour unremarkable with midline sternotomy and mediastinal clips. LUNGS: Mild right apical scarring again seen.. PLEURA: No pleural effusion or pneumothorax seen. OSSEOUS STRUCTURES: Unremarkable. RAD/Chest 1 View (Portable) IMPRESSION: No acute cardiopulmonary process identified. Electronically Signed: Roxanne Madden MD at 14:11 EDT ,
[2022-12-02 13:47] LABS: International Normalized Ratio 1.9; Prothrombin Time (Protime)PT. 21.7 SECONDS (11.7-14.9)
[2022-12-02 13:58] LABS: Anion Gap 3 (5-15); BUN 10 mg/dL (7-18); BUN/Creat Ratio 9.2 RATIO (10-20); Calcium,Total 8.7 mg/dL (8.5-10.1); Chloride 106 mmol/L (98-107); Creatinine, Serum 1.09 mg/dL (0.55-1.02); EST Glomerular Filtration Rate 52 mL/min (>60); Est Glom Filt Rate - Afr Amer 63 mL/min (>60); Glucose 138 mg/dL (74-106); Potassium 3.4 mmol/L (3.5-5.1); Sodium Level 137 mmol/L (136-145); Troponin-I HS (w/2H Reflex) 17 pg/mL (3.0-54.0)
[2022-12-02] MEDS: Pantoprazole Sodium 40 MG in 0.9% Normal Saline (100mL MB+) 100 ML 330 MG IV (14:51)
[2022-12-02 15:28] VITALS: BP 124/76
[2022-12-02 15:35] LABS: Reflex Troponin-HS? (from REC) Y
== END 2022-12-02 15:30 | disposition home or self-care (01) ==
PROVIDERS: Emergency Provider Emergency Medicine; PCP Family Medicine; Visit Provider Emergency Medicine
DX: R07.89 Other chest pain (principal); J44.9 Chronic obstructive pulmonary disease, unspecified; E11.9 Type 2 diabetes mellitus without complications; E78.00 Pure hypercholesterolemia, unspecified; K21.9 Gastro-esophageal reflux disease without esophagitis; I25.10 Atherosclerotic heart disease of native coronary artery without angina pectoris; Z87.891 Personal history of nicotine dependence; I10 Essential (primary) hypertension
CPT/HCPCS: 71045; 80048; 84484; 85025; 85610; 93005; 96365; 99283; A4216

== ENCOUNTER 2022-12-13 11:14 | Emergency (ER) | payer MEDICARE, MEDICAID, SELFPAY ==
[2022-12-13 11:15] VITALS: BP 112/77; PULSE 69; RESP 16; TEMP 35.9; O2SAT 94; BMI 32.7
--- NOTE | 2022-12-13 11:42 | EDS_ITS ---
HPI History of Present Illness Chief Complaint: Dizziness Informant: patient Narrative Narrative: Patient states that she turned her head today and suddenly felt vertiginous/spinning/dizzy along with some nausea but no vomiting. No diplopia or vision changes. She has had 3 episodes today, all associated with head movements triggering the symptoms, and lasting for 5 minutes when keeping her head still. Currently while sitting comfortably she does not have the symptoms. She denies headache, tinnitus, recent respiratory tract infection. She states she has had this before, but it felt worse and more prominent today. The last time she had this was a week and a half ago when she was seen here for that and some chest discomfort, she was discharged home. She states she has never taken any medication for this before. She denies a headache or syncope or any other acute symptoms today. [facility] Medical History Acute blood loss anemia Acute colitis Ambulates with cane Anemia Arthritis Asthma Atherosclerosis of [place] coronary artery of [place] heart without angina pectoris Back pain Cardiology follow-up encounter Carotid artery disease Cerebrovascular disease COPD (chronic obstructive pulmonary disease) Depression Diabetes Essential hypertension Former smoker Gastric reflux High cholesterol History of atrial fibrillation History of echocardiogram History of rheumatic fever History of stress test HLD (hyperlipidemia) Irritable bowel Ischemic colitis longterm current use of anticoagulant Loss of hearing Low iron Pacemaker Pacemaker Paroxysmal A-fib Post-menopausal Presence of cardiac pacemaker Presence of stent in coronary artery Restless legs Shortness of breath on exertion Sick sinus syndrome Sick sinus syndrome with tachycardia Syncope Wears dentures Wears glasses Home Medications aspirin 81 mg chewable tablet 81 mg PO DAILY@0800 health maintenance 08/18/18 [History Last Taken 11/25/20 09:00] montelukast 10 mg tablet 10 mg PO QPM allergy 02/22/19 [History Last Taken 11/25/20 21:00] albuterol sulfate 90 mcg/actuation aerosol inhaler (Ventolin HFA) 2 puff inhalation Q6H PRN sob 03/05/19 [History Last Taken Unknown] tiotropium 2.5 mcg-olodaterol 2.5 mcg/actuation mist for inhalation (Stiolto Respimat) 2 puff inhalation DAILY breathing 03/05/19 [History Last Taken 11/25/20 09:00] cetirizine 10 mg capsule (All Day Allergy (cetirizine)) 10 mg PO DAILY allergies 10/13/20 [History Last Taken 11/25/20 09:00] handicap placard #1 ea 10/13/20 [Rx Last Taken Unknown] vitamin B12 500 mcg-folic acid 400 mcg tablet 1 tab PO DAILY health maintenance 10/13/20 [History Last Taken 11/25/20 09:00] benzonatate 100 mg capsule 200 mg PO BID COPD 11/26/20 [History Last Taken 11/25/20 21:00] cholecalciferol (vitamin D3) 50 mcg (2,000 unit) capsule (Vitamin D3) 50 mcg PO DAILY health maintenance 11/26/20 [History Last Taken 11/25/20 09:00] nitroglycerin 0.4 mg sublingual tablet 0.4 mg sublingual Q5-15M PRN Chest Pain #25 tabs 07/22/21 [Rx Last Taken Unknown] dicyclomine 10 mg capsule 10 mg PO BID #60 caps 02/22/22 [Rx Last Taken Unknown] mesalamine 1.2 gram tablet,delayed release 2.4 g (2 x 1.2 gram) PO DAILY #60 tabs 02/22/22 [Rx Last Taken Unknown] fesoterodine 4 mg tablet,extended release 24 hr (Toviaz) 4 mg PO DAILY 02/23/22 [History Last Taken Unknown] potassium chloride 10 mEq tablet,extended release(part/cryst) 20 meq (2 x 10 mEq) PO DAILY #180 tabs 04/05/22 [Rx Last Taken Unknown] isosorbide mononitrate 10 mg tablet 10 mg PO BID #180 tabs 07/06/22 [Rx Last Taken Unknown] pantoprazole 40 mg tablet,delayed release 40 mg PO DAILY stomach #90 tabs 07/08/22 [Rx Last Taken Unknown] pravastatin 80 mg tablet 80 mg PO QHS #90 tabs 07/15/22 [Rx Last Taken Unknown] metoprolol tartrate 25 mg tablet 12.5 mg (1/2 x 25 mg) PO BID #90 tabs 07/20/22 [Rx Last Taken Unknown] warfarin 2.5 mg tablet 5 mg PO DAILY blood thinner #180 tabs 07/20/22 [Rx Last Taken Unknown] enalapril maleate 2.5 mg tablet 2.5 mg PO DAILY #90 tabs 07/22/22 [Rx Last Taken Unknown] warfarin 5 mg tablet 5 mg PO .COMPLEX #90 tabs 07/27/22 [Rx Last Taken Unknown] evolocumab 420 mg/3.5 mL subcutaneous wearable injector (Repatha Pushtronex) mg subcut 08/25/22 [History Last Taken Unknown] tizanidine 4 mg capsule (Zanaflex) 4 mg PO TID PRN 08/25/22 [History Last Taken Unknown] tramadol 50 mg tablet 50 mg PO BID PRN 08/25/22 [History Last Taken Unknown] meclizine 25 mg tablet 25 mg PO Q8H PRN PRN Dizziness #20 tabs 12/13/22 [Rx Last Taken Unknown] Allergy/AdvReac Type Severity Reaction Status Date / Time ciprofloxacin [From Cipro] Allergy Intermediate Itching Verified 12/13/22 11:15 atorvastatin calcium Allergy Hives Verified 12/13/22 11:15 [From Lipitor] gluten Allergy Food Verified 12/13/22 11:15 Allergy metoprolol succinate Allergy Rash Verified 12/13/22 11:15 [From Toprol XL] niacin Allergy Rash Verified 12/13/22 11:15 [From Niaspan Extended-Release] Penicillins Allergy Rash Verified 12/13/22 11:15 Sulfa (Sulfonamide Allergy Itching Verified 12/13/22 11:15 Antibiotics) regadenoson AdvReac Severe Anaphylaxis Verified 12/13/22 11:15 metronidazole AdvReac Intermediate lightheaded Verified 12/13/22 11:15 and ataxia Family History Mother CVA (cerebral vascular accident) CAD (coronary artery disease) Surgical History History of cardiac catheterization History of cholecystectomy History of esophagogastroduodenoscopy (EGD) History of left-sided carotid endarterectomy (~06/2006) History of total hysterectomy Hx of CABG (~06/29/06) Status post placement of cardiac pacemaker Social History household members: none Smoking Status: Former smoker alcohol intake: never substance use type: does not use ROS ROS ED Constitutional Constitutional ED: Denies chills or fever(s) Eyes Eyes: Denies change in vision or diplopia ENT ENT ED: Reports vertigo; Denies ear pain, rhinorrhea, sore throat or tinnitus Cardiovascular Cardiovascular: Denies chest pain or palpitations Respiratory/Chest Respiratory/Chest: Denies cough or dyspnea Gastrointestinal Gastrointestinal: Reports nausea; Denies abdominal pain, diarrhea or vomiting Genitourinary Genitourinary ED: Denies dysuria or hematuria Musculoskeletal Musculoskeletal: Denies back pain or neck pain Integumentary Denies abscess or rash Neurologic Neurologic: Denies headache(s), paresthesias or weakness Psychiatric Psychiatric: Denies anxiety or suicidal thoughts EXAM Physical Exam Const Vital Signs: 12/13/22 11:15 12/13/22 11:25 12/13/22 13:22 Temperature 96.7 F L Temperature Source Temporal Pulse Rate 69 60 Respiratory Rate 16 20 H Respiratory Effort Short of Breath Blood Pressure 112/77 Blood Pressure Mean 88 Pulse Ox 94 Oxygen Delivery Method Room Air Positive well nourished and well developed General Appearance ED: well developed and NAD HEENT Reports TM's clear and moist mucous membranes normocephalic and atraumatic Tympanic Membrane ED: Yes TM's clear Eyes PERRL and EOMs intact bilaterally Eyes Narrative: Fatigable horizontal nystagmus to the right, no vertical or rotatory nystagmus otherwise benign exam. Neck full ROM and supple Resp normal respiratory effort and clear to auscultation bilaterally Cardio regular rate, regular rhythm and no murmurs Rate: Negative for tachycardic GI non-tender and non-distended Auscultation: normoactive bowel sounds Palpation: soft Back/Spine no CVA tenderness General Back: other FROM Extremity normal to inspection General Extremety ED: Negative for edema, pulses abnormal or tenderness General Extremity: Negative for edema or pulses abnormal Neuro oriented x3, CN's II-XII intact bilaterally and no sensory deficits noted Neuro Narrative: Normal [id number] and [id number] bilaterally. NIHSS 0. Normal gait. Sensorium / Orientation: awake and alert Motor Exam: strength 5/5 throughout Psych mental status grossly normal Skin no rashes or lesions noted and no wounds MDM MDM MDM Narrative Medical decision making narrative: Did not perform jolt test since patient is not actively symptomatic while sitting at rest, as it is not indicated. However the rest of her history and exam are consistent with peripheral vertigo as the etiology of this. Her blood pressure is consistent with this, 112/77. She was given meclizine and a dose of Zofran and observed. I reviewed old records from 1.5 weeks ago, ER visit. Labs obtained and noted, INR 1.9 she is on warfarin. This was later checked the next day was 2.3. Since she does not have headache or any focal neurologic symptoms or deficits I do not think she needs an emergent CT of the head or other testing at this time. On reevaluation, she is feeling much better and asymptomatic with regards to dizziness/vertigo. She can turn her head back and forth without any symptoms. Also consistent with peripheral etiology, her blood pressure has been stable, other vital signs also normal and she is stable for discharge home with a prescription for meclizine to use as needed and follow-up with her doctor. Discharge Plan Triage Chief Complaint: Dizziness ED Provider: Dayday Valdez Dx/Rx/DC Orders Clinical Impression: Peripheral vertigo Instructions: ED Vertigo, Unspecified Prescriptions: New meclizine [meclizine] 25 mg tablet 25 mg PO Q8H PRN PRN (Reason: Dizziness) Qty: 20 0RF No Action montelukast 10 mg tablet 10 mg PO QPM vitamin [id number] acid 500-400 mcg tablet 1 tab PO DAILY Rx Instructions: administer with a meal All Day Allergy (cetirizine) 10 mg capsule 10 mg PO DAILY (DME) handicap placard See Rx Instructions .Route .MEDSUPPLY Qty: 1 0RF Rx Instructions: As directed -Life time exp. 5 years Dx: generalized debility fesoterodine [Toviaz] 4 mg tablet extended release 24 hr 4 mg PO DAILY dicyclomine 10 mg capsule 10 mg PO BID Qty: 60 5RF mesalamine 1.2 gram tablet,delayed release (DR/EC) 2.4 g PO DAILY Qty: 60 3RF tramadol 50 mg tablet 50 mg PO BID PRN tizanidine [Zanaflex] 4 mg capsule 4 mg PO TID PRN Repatha Pushtronex 420 mg/3.5 mL wearable injector subcut aspirin 81 MG tablet,chewable 81 mg PO DAILY@0800 benzonatate 100 mg capsule 200 mg PO BID Patient Comments: TAKE 1 CAPSULE BY MOUTH THREE TIMES DAILY NEEDED FOR PERSISTENT COUGH cholecalciferol (vitamin D3) [Vitamin D3] 50 mcg (2,000 unit) Capsule 50 mcg PO DAILY albuterol sulfate [Ventolin HFA] 90 mcg/actuation HFA aerosol inhaler 2 puff INHALATION Q6H PRN (Reason: sob) Stiolto Respimat 2.5-2.5 mcg/actuation mist 2 puff INHALATION DAILY nitroglycerin 0.4 mg tablet, sublingual 0.4 mg SUBLINGUAL Q5-15M PRN (Reason: Chest Pain) Qty: 25 3RF Rx Instructions: until response; do not exceed 3 doses per episode potassium chloride 10 mEq tablet,ER particles/crystals 20 meq PO DAILY Qty: 180 3RF Rx Instructions: takes 2 tabs daily isosorbide mononitrate 10 mg tablet 10 mg tablet 10 mg PO BID Qty: 180 3RF pantoprazole 40 mg tablet,delayed release (DR/EC) 40 mg PO DAILY Qty: 90 3RF pravastatin 80 mg tablet 80 mg PO QHS Qty: 90 3RF metoprolol tartrate 25 mg tablet 12.5 mg PO BID Qty: 90 3RF warfarin 2.5 mg tablet 5 mg PO DAILY Qty: 180 3RF Protocol: Dose Management Condition: Tuesday Dose/Route: 2.5 mg Instruction: 1 x 2.5 mg tablet Condition: Tuesday Dose/Route: 2.5 mg Instruction: 1 x 2.5 mg tablet Condition: Tuesday Dose/Route: 2.5 mg Instruction: 1 x 2.5 mg tablet Condition: Tuesday Dose/Route: 2.5 mg Instruction: 1 x 2.5 mg tablet Condition: Dose/Route: 2.5 mg Instruction: 1 x 2.5 mg tablet Condition: Tuesday Dose/Route: 2.5 mg Instruction: 1 x 2.5 mg tablet Condition: Tuesday Dose/Route: 5 mg Instruction: 1 x 5 mg tablet Protocol Text: Adjustment Start Date: Tuesday12/03/22 INR Value: 2.3 INR Date: 12/03/22 Recheck Date: 12/17/22 Rx Instructions: 2.5 mg orally three days a week, take 2 tablets to = 5 mg 4 days a week, or as directed; dose changes often enalapril maleate 2.5 mg tablet 2.5 mg PO DAILY Qty: 90 3RF warfarin 5 mg tablet 5 mg PO .COMPLEX Qty: 90 3RF Protocol: Dose Management Condition: Tuesday Dose/Route: 2.5 mg Instruction: 1 x 2.5 mg tablet Condition: Tuesday Dose/Route: 2.5 mg Instruction: 1 x 2.5 mg tablet Condition: Tuesday Dose/Route: 2.5 mg Instruction: 1 x 2.5 mg tablet Condition: Tuesday Dose/Route: 2.5 mg Instruction: 1 x 2.5 mg tablet Condition: Dose/Route: 2.5 mg Instruction: 1 x 2.5 mg tablet Condition: Tuesday Dose/Route: 2.5 mg Instruction: 1 x 2.5 mg tablet Condition: Tuesday Dose/Route: 5 mg Instruction: 1 x 5 mg tablet Protocol Text: Adjustment Start Date: Tuesday12/03/22 INR Value: 2.3 INR Date: 12/03/22 Recheck Date: 12/17/22 Rx Instructions: 5 mg orally take one tab bymouth every Tue and then take a 2.5 mg tab the other days or as directed; Primary Care Provider: Erasmo Pierre Referrals: Erasmo Pierre MD [Primary Care Provider] - 3-5 Days if not improving Disposition Disposition: Home, Self Care
[2022-12-13] MEDS: Meclizine HCl 25 MG Tablet PO (11:51)
[2022-12-13] MEDS: Ondansetron 4 MG/2 ML Vial IV (11:52)
--- NOTE | 2022-12-13 13:17 | ED.RN ---
Pt's family member came to nurses station frustrated because they have been here for 2 hours. This RN explained that they are waiting for the MD to re-evaluate the chart. The family member continued to granite polisher machine the hallway expressing that this is bullshit and said that last time they were kicked out because they needed the room for a squad. This RN explained that they do not have to stay if they feel that they don't want to and that 2 hours and most often more than 2 hours is a totally appropriate amount of time for them to expect when coming to an ER.
[2022-12-13 13:22] VITALS: PULSE 60; RESP 20
--- NOTE | 2022-12-13 13:30 | ED.RN ---
Pt called out asking how much longer their wait would be. This RN again explained that her chart is up for re-evaluation and that they are welcome to leave at any time. Pt acknowledged understanding.
== END 2022-12-13 13:47 | disposition home or self-care (01) ==
PROVIDERS: Emergency Provider Emergency Medicine; PCP Family Medicine; Visit Provider Emergency Medicine
DX: H81.399 Other peripheral vertigo, unspecified ear (principal); J44.9 Chronic obstructive pulmonary disease, unspecified; E11.9 Type 2 diabetes mellitus without complications; I25.10 Atherosclerotic heart disease of native coronary artery without angina pectoris; Z87.891 Personal history of nicotine dependence; I10 Essential (primary) hypertension; E78.00 Pure hypercholesterolemia, unspecified
CPT/HCPCS: 96374; 99283; A4216; J2405

== ENCOUNTER → 2022-12-28 | Outpatient (CLI) | payer MEDICAID, MEDICARE, OTHER, SELFPAY ==
--- NOTE | 2022-12-28 11:19 | RAD_ITS ---
STUDY: X-RAY CHEST REASON FOR EXAM: Female, 72 years old. COPD. Cough. TECHNIQUE: Frontal and lateral views of the chest. COMPARISON: December 02, 2022 FINDINGS: Stable hyperinflation. There is no demonstrated pleural abnormality. Cardiomegaly, sternotomy wires, changes of coronary artery bypass grafting and dual lead cardiac pacer, unchanged. Normal mediastinum and preeti. Normal visualized pulmonary arteries. Normal visualized aortic arch and descending thoracic aorta. Thoracic osteopenia with diffuse spondylosis unchanged. Normal visualized ribs, clavicles, and shoulders. No abnormality of the visualized soft tissue structures of the upper abdomen. RAD/Chest PA and Lateral IMPRESSION: Stable chest with no acute superimposed. Electronically Signed: Pancho Whatley MD at 13:43 EDT ,
[2022-12-28 16:02] LABS: Absolute Lymphocyte Count 3.53 X10^3/uL (0.83-4.51); Absolute Neutrophil Count 7.7 X10^3/uL (2.0-7.7); Basophil# 0.09 X10^3/uL; Basophil% 0.7 % (0-1); Eosinophil# 0.41 X10^3/uL; Eosinophils% 3.2 % (0-5); Hematocrit 49.2 % (37-47); Hemoglobin 15.5 g/dL (12.0-15.0); Lymphocyte # 3.53 X10^3/ul (0.83-4.51); Lymphocyte % 27.5 % (19-41); Mean Corp Hgb Conc 31.5 g/dL (32-36); Mean Corpuscular Hgb 30.9 pg (27.0-32.0); Mean Platelet Vol. 13.3 fl (6.2-12.0); Monocyte# 1.08 X10^3/uL; Monocyte% 8.4 % (0-10); NRBC Flagged by Analyzer 0 % (0-5); Neutrophil % 59.9 % (47-70); Platelet Count 251 K/mm3 (150-450); RBC Distribution Width CV 13.3 % (11.6-14.6); RBC Distribution Width SD 48.2 fl (35.1-43.9); Red Blood Count 5.02 M/mm3 (4.2-5.4); White Blood Count 12.9 K/mm3 (4.4-11.0)
[2022-12-28 16:16] LABS: Hemoglobin A1c 5.6 % (3.8-5.6)
[2022-12-28 16:34] LABS: ALB/GLOB Ratio 0.9 RATIO (0.9-2.4); AST(SGOT) 42 U/L (15-37); Alanine Aminotransfer ALT/SGPT 49 U/L (13-56); Albumin, Serum 3.5 g/dL (3.2-5.0); Alkaline Phosphatase 86 U/L (45-117); Anion Gap 11 (5-15); BUN 9 mg/dL (7-18); BUN/Creat Ratio 6.7 RATIO (10-20); Calcium,Total 8.8 mg/dL (8.5-10.1); Chloride 104 mmol/L (98-107); Cholesterol 201 mg/dL (200); Creatinine, Serum 1.35 mg/dL (0.55-1.02); EST Glomerular Filtration Rate 41 mL/min (>60); Est Glom Filt Rate - Afr Amer 50 mL/min (>60); Glucose 111 mg/dL (74-106); High Density Lipoprotein 41 mg/dL; Magnesium 2.3 mg/dL (1.6-2.6); Potassium 3.2 mmol/L (3.5-5.1); Protein, Total 7.5 g/dL (6.4-8.2); Sodium Level 137 mmol/L (136-145); Thyroid Stim Hormone (TSH) 4.97 uIU/mL (0.358-3.74); Triglycerides 240 mg/dL; Very Low Density Lipoprotein 48 mg/dL (5-40)
[2022-12-28 16:58] LABS: Vitamin D,25 Hydroxy 43.2 ng/mL
[2022-12-30 17:17] LABS: T4 Free Direct 1.09 ng/dL (0.76-1.46)
[2023-01-05 16:09] LABS: Anti-Thyroglobulin AB < 1.0 IU/mL (0.0-0.9); Thyroglobulin, Serum Qt. 6.6 ng/mL (1.5-38.5); Thyroid Peroxidase AB 13 IU/mL (0-34)
== END | disposition home or self-care (01) ==
LOC: MTLAB 11:19
PROVIDERS: PCP Family Medicine; Referring Provider Family Medicine; Visit Provider Family Medicine
DX: M81.0 Age-related osteoporosis without current pathological fracture (principal); I48.91 Unspecified atrial fibrillation; R73.02 Impaired glucose tolerance (oral); E78.5 Hyperlipidemia, unspecified; R79.89 Other specified abnormal findings of blood chemistry
CPT/HCPCS: 36415; 71046; 80053; 80061; 82306; 83036; 83735; 84432; 84439; 84443; 85025; 86376; 86800

== ENCOUNTER 2022-12-30 10:56 | Emergency (ER) | payer MEDICARE, MEDICAID, SELFPAY ==
[2022-12-30 10:57] VITALS: BP 97/72; PULSE 50; RESP 18; TEMP 35.7; O2SAT 94
--- NOTE | 2022-12-30 11:08 | ED.VIS.GI ---
HPI HPI - GI History of Present Illness Chief Complaint: GI Bleed Informant: patient Abdominal Pain/Flank Pain Onset: Yesterday Context: Sudden Onset Timing: Intermittent Quality: Cramping Location: RLQ and LLQ Worsened by: Nothing Relieved by: Nothing Nausea/Vomiting/Emesis GI Symptom: Positive for Nausea and Vomiting Quality: Positive for Nonbilious; Negative for Blood streaks, Coffee ground or Hematemesis Diarrhea/Melena/Hematochezia GI Symptom: Positive for Diarrhea and Hematochezia Onset: Yesterday Stool Quality: Positive for BRB per rectum Episodes: 6 Associated Symptoms Associated Symptoms: Negative for Dysuria, Frequency or Hematuria Narrative Narrative: Patient presents with rectal bleeding that began last night. Patient states she started having some diarrhea last night. Patient states it became bright red blood. Patient states she had 6 episodes last night. Patient admits to lower abdominal pain. Patient describes it as cramping. Patient states nothing really makes it better and nothing makes it worse. Patient admits to some nausea and vomiting. Patient denies any hematemesis or coffee-ground emesis. Patient also admits to some cough and shortness of breath. Patient denies any fevers or chills. Patient denies any dysuria, hematuria, or frequency. [facility] Medical History Acute blood loss anemia Acute colitis Ambulates with cane Anemia Arthritis Asthma Atherosclerosis of [place] coronary artery of [place] heart without angina pectoris Back pain Cardiology follow-up encounter Carotid artery disease Cerebrovascular disease COPD (chronic obstructive pulmonary disease) Depression Diabetes Essential hypertension Former smoker Gastric reflux High cholesterol History of atrial fibrillation History of echocardiogram History of rheumatic fever History of stress test HLD (hyperlipidemia) Irritable bowel Ischemic colitis 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 Loss of hearing Low iron Pacemaker Pacemaker Paroxysmal A-fib Post-menopausal Presence of cardiac pacemaker Presence of stent in coronary artery Restless legs Shortness of breath on exertion Sick sinus syndrome Sick sinus syndrome with tachycardia Syncope Wears dentures Wears glasses Home Medications aspirin 81 mg chewable tablet 81 mg PO DAILY@0800 health maintenance 08/18/18 [History Last Taken 11/25/20 09:00] montelukast 10 mg tablet 10 mg PO QPM allergy 02/22/19 [History Last Taken 11/25/20 21:00] albuterol sulfate 90 mcg/actuation aerosol inhaler (Ventolin HFA) 2 puff inhalation Q6H PRN sob 03/05/19 [History Last Taken Unknown] tiotropium 2.5 mcg-olodaterol 2.5 mcg/actuation mist for inhalation (Stiolto Respimat) 2 puff inhalation DAILY breathing 03/05/19 [History Last Taken 11/25/20 09:00] cetirizine 10 mg capsule (All Day Allergy (cetirizine)) 10 mg PO DAILY allergies 10/13/20 [History Last Taken 11/25/20 09:00] handicap placard #1 ea 10/13/20 [Rx Last Taken Unknown] vitamin B12 500 mcg-folic acid 400 mcg tablet 1 tab PO DAILY health maintenance 10/13/20 [History Last Taken 11/25/20 09:00] benzonatate 100 mg capsule 200 mg PO BID COPD 11/26/20 [History Last Taken 11/25/20 21:00] cholecalciferol (vitamin D3) 50 mcg (2,000 unit) capsule (Vitamin D3) 50 mcg PO DAILY health maintenance 11/26/20 [History Last Taken 11/25/20 09:00] nitroglycerin 0.4 mg sublingual tablet 0.4 mg sublingual Q5-15M PRN Chest Pain #25 tabs 07/22/21 [Rx Last Taken Unknown] fesoterodine 4 mg tablet,extended release 24 hr (Toviaz) 4 mg PO DAILY 02/23/22 [History Last Taken Unknown] potassium chloride 10 mEq tablet,extended release(part/cryst) 20 meq (2 x 10 mEq) PO DAILY #180 tabs 04/05/22 [Rx Last Taken Unknown] isosorbide mononitrate 10 mg tablet 10 mg PO BID #180 tabs 07/06/22 [Rx Last Taken Unknown] pantoprazole 40 mg tablet,delayed release 40 mg PO DAILY stomach #90 tabs 07/08/22 [Rx Last Taken Unknown] pravastatin 80 mg tablet 80 mg PO QHS #90 tabs 07/15/22 [Rx Last Taken Unknown] metoprolol tartrate 25 mg tablet 12.5 mg (1/2 x 25 mg) PO BID #90 tabs 07/20/22 [Rx Last Taken Unknown] warfarin 2.5 mg tablet 5 mg PO DAILY blood thinner #180 tabs 07/20/22 [Rx Last Taken Unknown] enalapril maleate 2.5 mg tablet 2.5 mg PO DAILY #90 tabs 07/22/22 [Rx Last Taken Unknown] warfarin 5 mg tablet 5 mg PO .COMPLEX #90 tabs 07/27/22 [Rx Last Taken Unknown] evolocumab 420 mg/3.5 mL subcutaneous wearable injector (Repatha Pushtronex) mg subcut 08/25/22 [History Last Taken Unknown] tizanidine 4 mg capsule (Zanaflex) 4 mg PO TID PRN muscle spasticity 08/25/22 [History Last Taken Unknown] tramadol 50 mg tablet 50 mg PO BID PRN pain 08/25/22 [History Last Taken Unknown] meclizine 25 mg tablet 25 mg PO Q8H PRN PRN Dizziness #20 tabs 12/13/22 [Rx Last Taken Unknown] dicyclomine 10 mg capsule 10 mg PO BID #60 caps 12/30/22 [Rx Last Taken Unknown] mesalamine 1.2 gram tablet,delayed release 2.4 g (2 x 1.2 gram) PO DAILY #60 tabs 12/30/22 [Rx Last Taken Unknown] Allergy/AdvReac Type Severity Reaction Status Date / Time ciprofloxacin [From Cipro] Allergy Intermediate Itching Verified 12/30/22 10:56 atorvastatin calcium Allergy Hives Verified 12/30/22 10:56 [From Lipitor] gluten Allergy Food Verified 12/30/22 10:56 Allergy metoprolol succinate Allergy Rash Verified 12/30/22 10:56 [From Toprol XL] niacin Allergy Rash Verified 12/30/22 10:56 [From Niaspan Extended-Release] Penicillins Allergy Rash Verified 12/30/22 10:56 Sulfa (Sulfonamide Allergy Itching Verified 12/30/22 10:56 Antibiotics) regadenoson AdvReac Severe Anaphylaxis Verified 12/30/22 10:56 metronidazole AdvReac Intermediate lightheaded Verified 12/30/22 10:56 and ataxia Family History Mother CVA (cerebral vascular accident) CAD (coronary artery disease) Surgical History History of cardiac catheterization History of cholecystectomy History of esophagogastroduodenoscopy (EGD) History of left-sided carotid endarterectomy (~06/2006) History of total hysterectomy Hx of CABG (~06/29/06) Status post placement of cardiac pacemaker Social History household members: none Smoking Status: Former smoker alcohol intake: never substance use type: does not use ROS ROS ED Constitutional Constitutional ED: Denies chills or fever(s) Eyes Eyes: Denies blurry vision or change in vision ENT ENT ED: Denies rhinorrhea or sore throat Cardiovascular Cardiovascular: Denies chest pain or palpitations Respiratory/Chest Respiratory/Chest: Reports cough and dyspnea Gastrointestinal Gastrointestinal: Reports abdominal pain, diarrhea, melena, nausea and vomiting Genitourinary Genitourinary ED: Denies dysuria or hematuria Musculoskeletal Musculoskeletal: Reports back pain; Denies neck pain Integumentary Denies abscess or rash Neurologic Neurologic: Reports headache(s); Denies weakness Allergic/Immunologic Allergic/Immunologic ED: Denies mouth swelling or urticaria EXAM Physical Exam Const Vital Signs: 12/30/22 10:57 12/30/22 15:34 12/30/22 15:43 Temperature 96.2 F L Temperature Source Temporal Pulse Rate 50 L 71 61 Respiratory Rate 18 18 Blood Pressure 97/72 137/88 H 135/76 H Blood Pressure Mean 80 104 95 Pulse Ox 94 97 Oxygen Delivery Method Room Air Room Air Positive well nourished and well developed General Appearance ED: well developed and NAD HEENT Reports moist mucous membranes Neck supple and no JVD Cardio regular rate and regular rhythm GI non-distended Palpation: soft and tender LLQ and suprapubic; Negative for guarding or rebound tenderness present Neuro CN's II-XII intact bilaterally, moves all extremities and no sensory deficits noted Sensorium / Orientation: alert Motor Exam: strength 5/5 throughout Psych mental status grossly normal and thought process normal MDM MDM MDM Narrative Medical decision making narrative: Differential diagnosis includes internal hemorrhoid, diverticulitis, colitis, coagulopathy, anemia, anemia, bowel obstruction, and perforation. CT scan of the abdomen pelvis will be obtained to assess for diverticulitis, colitis, bowel obstruction, and perforation. Chest x-ray will be obtained to assess for pneumonia. CBC will be obtained to assess for leukocytosis and anemia. Comprehensive metabolic profile will be obtained to assess for hepatic function, renal function, and electrolyte abnormality. Urinalysis will be obtained to assess for urinary tract infection. PT with INR and PTT will be obtained to assess for coagulopathy. Lab Data Attestation: I reviewed the patient's lab results. Lab results narrative: CBC was reviewed and was within normal limits. Comprehensive metabolic profile was reviewed. Creatinine was slightly elevated at 1.55. This was consistent with previous results. Urinalysis was reviewed. There is no evidence of urinary tract infection or hematuria. Labs: Laboratory Results - last 24 hr 12/30/22 12/30/22 11:35 14:55 WBC 10.8 RBC 4.80 Hgb 14.9 Hct 44.9 MCV 93.5 MCH 31.0 MCHC 33.2 D RDW Std Deviation 45.9 H RDW Coeff of Neymar 13.2 Plt Count 204 MPV 12.7 H Immature Gran % (Auto) 0.500 Neut % (Auto) 77.1 H Lymph % (Auto) 14.3 L [place] % (Auto) 6.5 Eos % (Auto) 1.1 Baso % (Auto) 0.5 Absolute Neuts (auto) 8.3 H Absolute Lymphs (auto) 1.54 Nucleated RBC % 0 PT 26.9 H INR 2.5 APTT 49.4 H Sodium 137 Potassium 3.4 L Chloride 105 Carbon Dioxide 25.0 Anion Gap 7 BUN 15 Creatinine 1.55 H Est GFR (MDRD) Af Amer 42 L Est GFR (MDRD) Non-Af 35 L BUN/Creatinine Ratio 9.7 L Glucose 150 H Calcium 9.0 Total Bilirubin 1.00 AST 35 ALT 41 Alkaline Phosphatase 105 Total Protein 6.8 Albumin 3.2 Globulin 3.6 Albumin/Globulin Ratio 0.9 Urine Color Yellow Urine Clarity Clear Urine pH 6.5 Ur Specific [place] 1.010 Urine Protein 30 H Urine Glucose (UA) Normal Urine Ketones Negative Urine Occult Blood 25 H Urine Nitrite Negative Urine Bilirubin Negative Urine Urobilinogen Normal Ur Leukocyte Esterase Negative Urine RBC 0-5 SEEN Urine WBC 0 SEEN Ur Squamous Epith Cells 0-5 SEEN Urine Bacteria 0 SEEN Urine Mucus 0 SEEN Radiography Diagnostic Testing: Clinical Impression(s) from Imaging Studies Abdomen/Pelvis CT 12/30/22 13:22 IMPRESSION: 1. No demonstrated acute process. No demonstrated free air or free fluid or bowel dilatation. A single sigmoid diverticulum is present without evidence of active inflammation. Electronically Signed: Mario Lopez MD at 14:07 EDT , ADDENDUM: 12/30/22 1421 IMPRESSION: undefined The scan of the abdomen and pelvis was obtained. There is no acute process noted. There is no free air or free fluid. There is no evidence of bowel obstruction. There is a single sigmoid diverticulum but no evidence of diverticulitis. This was interpreted by the radiologist and was also independently reviewed by myself. Management Discussion w/another healthcare provider: Patient Support Associate Treatment and Re-Evaluation :: Patient was given IV fluids. Patient was advised of her findings. Anoscopy was attempted however, patient was unable to tolerate it. Stool was sent for occult blood. Patient wants to go home. Patient states she ran out of her Bentyl and mesalamine. Patient was given prescriptions for refills for these. Case was discussed with Dr. Kirk. He is agreeable with the plan. He will follow-up with the patient as an outpatient. Patient was instructed to follow-up with her primary care physician in 5 to 7 days. Patient was instructed return if worse in any way. Patient understood and was agreeable with the plan. All questions were answered. Discharge Plan Triage Chief Complaint: GI Bleed ED Provider: Enrique Freeman Dx/Rx/DC Orders Clinical Impression: Rectal bleeding, care home current use of anticoagulant Instructions: ED Lower GI Bleeding (Stable) Prescriptions: Continued dicyclomine 10 mg capsule 10 mg PO BID Qty: 60 0RF mesalamine 1.2 gram tablet,delayed release (DR/EC) 2.4 g PO DAILY Qty: 60 0RF No Action montelukast 10 mg tablet 10 mg PO QPM vitamin S06-salva acid 500-400 mcg tablet 1 tab PO DAILY Rx Instructions: administer with a meal All Day Allergy (cetirizine) 10 mg capsule 10 mg PO DAILY (DME) handicap placard See Rx Instructions .Route .MEDSUPPLY Qty: 1 0RF Rx Instructions: As directed -Life time exp. 5 years Dx: generalized debility fesoterodine [Toviaz] 4 mg tablet extended release 24 hr 4 mg PO DAILY tramadol 50 mg tablet 50 mg PO BID PRN (Reason: pain) tizanidine [Zanaflex] 4 mg capsule 4 mg PO TID PRN (Reason: muscle spasticity) Repatha Pushtronex 420 mg/3.5 mL wearable injector subcut aspirin 81 MG tablet,chewable 81 mg PO DAILY@0800 benzonatate 100 mg capsule 200 mg PO BID Patient Comments: TAKE 1 CAPSULE BY MOUTH THREE TIMES DAILY NEEDED FOR PERSISTENT COUGH cholecalciferol (vitamin D3) [Vitamin D3] 50 mcg (2,000 unit) Capsule 50 mcg PO DAILY meclizine [meclizine] 25 mg tablet 25 mg PO Q8H PRN PRN (Reason: Dizziness) Qty: 20 0RF albuterol sulfate [Ventolin HFA] 90 mcg/actuation HFA aerosol inhaler 2 puff INHALATION Q6H PRN (Reason: sob) Stiolto Respimat 2.5-2.5 mcg/actuation mist 2 puff INHALATION DAILY nitroglycerin 0.4 mg tablet, sublingual 0.4 mg SUBLINGUAL Q5-15M PRN (Reason: Chest Pain) Qty: 25 3RF Rx Instructions: until response; do not exceed 3 doses per episode potassium chloride 10 mEq tablet,ER particles/crystals 20 meq PO DAILY Qty: 180 3RF Rx Instructions: takes 2 tabs daily isosorbide mononitrate 10 mg tablet 10 mg tablet 10 mg PO BID Qty: 180 3RF pantoprazole 40 mg tablet,delayed release (DR/EC) 40 mg PO DAILY Qty: 90 3RF pravastatin 80 mg tablet 80 mg PO QHS Qty: 90 3RF metoprolol tartrate 25 mg tablet 12.5 mg PO BID Qty: 90 3RF warfarin 2.5 mg tablet 5 mg PO DAILY Qty: 180 3RF Protocol: Dose Management Condition: Tuesday Dose/Route: 2.5 mg Instruction: 1 x 2.5 mg tablet Condition: Tuesday Dose/Route: 2.5 mg Instruction: 1 x 2.5 mg tablet Condition: Tuesday Dose/Route: 2.5 mg Instruction: 1 x 2.5 mg tablet Condition: Tuesday Dose/Route: 2.5 mg Instruction: 1 x 2.5 mg tablet Condition: Dose/Route: 2.5 mg Instruction: 1 x 2.5 mg tablet Condition: Tuesday Dose/Route: 2.5 mg Instruction: 1 x 2.5 mg tablet Condition: Tuesday Dose/Route: 2.5 mg Instruction: 1 x 2.5 mg tablet Protocol Text: Adjustment Start Date: Tuesday12/17/22 INR Value: 2.9 INR Date: 12/17/22 Recheck Date: 12/31/22 Rx Instructions: 2.5 mg orally three days a week, take 2 tablets to = 5 mg 4 days a week, or as directed; dose changes often enalapril maleate 2.5 mg tablet 2.5 mg PO DAILY Qty: 90 3RF warfarin 5 mg tablet 5 mg PO .COMPLEX Qty: 90 3RF Protocol: Dose Management Condition: Tuesday Dose/Route: 2.5 mg Instruction: 1 x 2.5 mg tablet Condition: Tuesday Dose/Route: 2.5 mg Instruction: 1 x 2.5 mg tablet Condition: Tuesday Dose/Route: 2.5 mg Instruction: 1 x 2.5 mg tablet Condition: Tuesday Dose/Route: 2.5 mg Instruction: 1 x 2.5 mg tablet Condition: Dose/Route: 2.5 mg Instruction: 1 x 2.5 mg tablet Condition: Tuesday Dose/Route: 2.5 mg Instruction: 1 x 2.5 mg tablet Condition: Tuesday Dose/Route: 2.5 mg Instruction: 1 x 2.5 mg tablet Protocol Text: Adjustment Start Date: Tuesday12/17/22 INR Value: 2.9 INR Date: 12/17/22 Recheck Date: 12/31/22 Rx Instructions: 5 mg orally take one tab [place] every Tue and then take a 2.5 mg tab the other days or as directed; Primary Care Provider: Erasmo Pierre Referrals: Erasmo Pierre MD [Primary Care Provider] - Disposition Disposition: Home, Self Care Discharge Date/Time: 12/30/22 16:09
[2022-12-30] MEDS: 0.9% Normal Saline (1000mL) 1,000 ML 1000 ML IV (11:36)
[2022-12-30] MEDS: Ondansetron 4 MG/2 ML Vial IV ×2 (11:37→12:39)
[2022-12-30] MEDS: Morphine 4 MG/ML Syringe IV (11:37)
[2022-12-30 11:55] LABS: Absolute Lymphocyte Count 1.54 X10^3/uL (0.83-4.51); Absolute Neutrophil Count 8.3 X10^3/uL (2.0-7.7); Basophil# 0.05 X10^3/uL; Basophil% 0.5 % (0-1); Eosinophil# 0.12 X10^3/uL; Eosinophils% 1.1 % (0-5); Hematocrit 44.9 % (37-47); Hemoglobin 14.9 g/dL (12.0-15.0); Lymphocyte # 1.54 X10^3/ul (0.83-4.51); Lymphocyte % 14.3 % (19-41); Mean Corp Hgb Conc 33.2 g/dL (32-36); Mean Corpuscular Volume 93.5 fL (81-99); Mean Platelet Vol. 12.7 fl (6.2-12.0); Monocyte% 6.5 % (0-10); NRBC Flagged by Analyzer 0 % (0-5); Neutrophil # 8.29 X10^3/uL (2.7-7.7); Neutrophil % 77.1 % (47-70); Platelet Count 204 K/mm3 (150-450); RBC Distribution Width CV 13.2 % (11.6-14.6); RBC Distribution Width SD 45.9 fl (35.1-43.9); White Blood Count 10.8 K/mm3 (4.4-11.0)
[2022-12-30 11:59] LABS: International Normalized Ratio 2.5; Prothrombin Time (Protime)PT. 26.9 SECONDS (11.7-14.9)
[2022-12-30 12:00] LABS: Partial Thromboplast Time 49.4 Seconds (24.1-36.2)
[2022-12-30 12:01] LABS: ALB/GLOB Ratio 0.9 RATIO (0.9-2.4); AST(SGOT) 35 U/L (15-37); Alanine Aminotransfer ALT/SGPT 41 U/L (13-56); Albumin, Serum 3.2 g/dL (3.2-5.0); Alkaline Phosphatase 105 U/L (45-117); Anion Gap 7 (5-15); BUN 15 mg/dL (7-18); BUN/Creat Ratio 9.7 RATIO (10-20); Chloride 105 mmol/L (98-107); Creatinine, Serum 1.55 mg/dL (0.55-1.02); EST Glomerular Filtration Rate 35 mL/min (>60); Est Glom Filt Rate - Afr Amer 42 mL/min (>60); Globulin 3.6 g/dL (2.2-4.2); Glucose 150 mg/dL (74-106); Potassium 3.4 mmol/L (3.5-5.1); Protein, Total 6.8 g/dL (6.4-8.2); Sodium Level 137 mmol/L (136-145)
--- NOTE | 2022-12-30 13:22 | CT_ITS ---
STUDY: CT ABDOMEN AND PELVIS WITH CONTRAST REASON FOR EXAM: Female, 72 years old. Abdominal pain -- IV PO Contrast RADIATION DOSAGE (If Supplied By Facility): CTDIvol = ( 16.71 ) mGy, DLP = ( 900.86 ) mGycm TECHNIQUE: Transaxial images were obtained from the dome of the diaphragm to the symphysis pubis without oral contrast. ml of Gastrografin and amp; 100mL Isovue-300 contrast was administered. Sagittal and coronal images were reconstructed. Individualized dose optimization techniques were used for this CT. COMPARISON: CT of abdomen and pelvis dated January 14, 2022 FINDINGS: The visualized lung bases are unremarkable. The visualized portions of the heart are within normal limits. Normal liver. There are surgical clips in the gallbladder fossa consistent with a prior cholecystectomy. Normal spleen. Normal pancreas. Normal bilateral adrenal glands. Small cysts are present in both kidneys which do not require any additional imaging. No hydronephrosis or solid renal masses are present. Punctate 1 mm calyceal stone noted in the superior pole of the right kidney. Normal visualized stomach. Normal small intestine. Normal colon. The appendix is visualized and appears normal. No demonstrated free air or free fluid or bowel dilatation. A single sigmoid diverticulum is present without evidence of active inflammation. There is diffuse atherosclerotic calcification of the abdominal aorta, without a demonstrated aneurysm. Normal inferior vena cava. Normal retroperitoneum. Normal urinary bladder. Normal abdominal wall. Normal osseous structures. CT/Abdomen/Pelvis WITH Contrast IMPRESSION: 1. No demonstrated acute process. No demonstrated free air or free fluid or bowel dilatation. A single sigmoid diverticulum is present without evidence of active inflammation. Electronically Signed: Mario Lopez MD at 14:07 EDT ,
[2022-12-30 15:01] LABS: Bacteria 0 SEEN /hpf (None Seen); Mucous, Urine 0 SEEN /hpf (<or=2+); White Blood Cells 0 SEEN /hpf (0-5)
[2022-12-30 15:10] LABS: Color, Urine Yellow (Yellow); Glucose, Dipstick Normal (Normal); Ketone-Dipstick Negative (Negative); Leukocyte Esterase-Dipstick Negative /ul (Negative); Nitrite-Dipstick Negative (Negative); Occult Blood-Urine 25 /ul (Negative); Protein-Dipstick 30 mg/dl (Negative); Urine Bilirubin Dipstick Negative (Negative); Urine Clarity Clear (Clear); Urine Urobilinogen Normal (Normal); Urine pH 6.5 (5.0 - 8.0)
[2022-12-30 15:23] LABS: Red Blood Cells-Urine 0-5 SEEN /hpf (0-5); Squamous Epithelial Cells - UA 0-5 SEEN /hpf (5-10)
[2022-12-30 15:34] VITALS: BP 137/88; PULSE 71; RESP 18; O2SAT 97; BMI 32.5
[2022-12-30 15:36] VITALS: BMI 33.2
[2022-12-30 15:43] VITALS: BP 135/76; PULSE 61
== END 2022-12-30 16:09 | disposition home or self-care (01) ==
PROVIDERS: Emergency Provider Emergency Medicine; PCP Family Medicine; Visit Provider Emergency Medicine
DX: K62.5 Hemorrhage of anus and rectum (principal); J44.9 Chronic obstructive pulmonary disease, unspecified; E11.9 Type 2 diabetes mellitus without complications; I10 Essential (primary) hypertension; R11.2 Nausea with vomiting, unspecified; Z79.01 Long term (current) use of anticoagulants; Z87.891 Personal history of nicotine dependence; I25.10 Atherosclerotic heart disease of native coronary artery without angina pectoris; E78.00 Pure hypercholesterolemia, unspecified; R19.7 Diarrhea, unspecified; Z79.899 Other long term (current) drug therapy; M54.9 Dorsalgia, unspecified; R05.9 Cough, unspecified; R06.00 Dyspnea, unspecified; R51.9 Headache, unspecified
CPT/HCPCS: 46600; 74177; 80053; 81001; 82274; 85025; 85610; 85730; 96361; 96374; 96375; 96376; 99284; J7030; Q9967; A4216; J2405

== ENCOUNTER → 2023-02-01 | Outpatient (CLI) | payer MEDICARE, MEDICAID, SELFPAY ==
--- NOTE | 2023-02-01 10:15 | RAD_ITS ---
STUDY: X-RAY CHEST REASON FOR EXAM: Female, 72 years old. Cough. Dyspnea on exertion. TECHNIQUE: Frontal and lateral views of the chest. COMPARISON: December 28, 2022 FINDINGS: Stable mild hyperinflation. There is no demonstrated pleural abnormality. Cardiomegaly, sternotomy wires, dual lead cardiac pacer and changes of coronary artery bypass grafting, unaltered. Normal mediastinum and preeti. Normal visualized pulmonary arteries. Aortic tortuosity with calcification unchanged. Normal visualized thoracic spine. Normal visualized ribs, clavicles, and shoulders. No abnormality of the visualized soft tissue structures of the upper abdomen. RAD/Chest PA and Lateral IMPRESSION: Stable chest with no acute or active cardiopulmonary disease. Electronically Signed: Pancho Whatley MD at 12:27 EST ,
[2023-02-01 11:11] LABS: Absolute Lymphocyte Count 2.13 X10^3/uL (0.83-4.51); Absolute Neutrophil Count 6.3 X10^3/uL (2.0-7.7); Basophil# 0.09 X10^3/uL; Basophil% 0.9 % (0-1); Eosinophil# 0.26 X10^3/uL; Eosinophils% 2.7 % (0-5); Hematocrit 49.9 % (37-47); Hemoglobin 15.6 g/dL (12.0-15.0); Lymphocyte # 2.13 X10^3/ul (0.83-4.51); Lymphocyte % 22.1 % (19-41); Mean Corp Hgb Conc 31.3 g/dL (32-36); Mean Corpuscular Hgb 30.4 pg (27.0-32.0); Mean Corpuscular Volume 97.3 fL (81-99); Mean Platelet Vol. 13.3 fl (6.2-12.0); Monocyte# 0.86 X10^3/uL; Monocyte% 8.9 % (0-10); NRBC Flagged by Analyzer 0 % (0-5); Neutrophil # 6.25 X10^3/uL (2.7-7.7); Neutrophil % 64.9 % (47-70); Platelet Count 207 K/mm3 (150-450); RBC Distribution Width CV 13.3 % (11.6-14.6); Red Blood Count 5.13 M/mm3 (4.2-5.4); White Blood Count 9.6 K/mm3 (4.4-11.0)
[2023-02-01 11:39] LABS: BNP,B-Type NATRIURETIC PEPTIDE 39.1 pg/mL (0-100)
[2023-02-01 11:53] LABS: Anion Gap 8 (5-15); BUN 11 mg/dL (7-18); BUN/Creat Ratio 8.7 RATIO (10-20); Calcium,Total 8.9 mg/dL (8.5-10.1); Chloride 104 mmol/L (98-107); Creatinine, Serum 1.27 mg/dL (0.55-1.02); EST Glomerular Filtration Rate 44 mL/min (>60); Est Glom Filt Rate - Afr Amer 53 mL/min (>60); Glucose 112 mg/dL (74-106); Potassium 3.4 mmol/L (3.5-5.1); Sodium Level 138 mmol/L (136-145); Thyroid Stim Hormone (TSH) 3.04 uIU/mL (0.358-3.74)
== END | disposition home or self-care (01) ==
LOC: RAD 10:08
PROVIDERS: PCP Family Medicine; Referring Provider Nurse Practitioner Gerontology; Visit Provider Nurse Practitioner Gerontology
DX: R06.09 Other forms of dyspnea (principal); R05.9 Cough, unspecified
CPT/HCPCS: 36415; 71046; 80048; 83880; 84443; 85025

== ENCOUNTER → 2023-02-21 | Outpatient (CLI) | payer MEDICARE, MEDICAID, SELFPAY ==
--- NOTE | 2023-02-21 08:51 | ECHOCS_ITS ---
Reason For Study: DYSPNEA Procedure This was a 2D Doppler, Color Flow transthoracic echocardiogram. The study was technically difficult. Limited views were obtained. Exam performed in department. Left Ventricle Normal LV size. Left ventricular systolic function is normal. The estimated ejection fraction is 62 %. Stage 1 diastolic dysfunction. No regional wall motion abnormalities noted. Right Ventricle Normal RV size. Normal systolic function. Atria Normal left atrium. Normal right atrium. Pulmonic Valve The pulmonic valve is not well visualized. Great Vessels Normal aortic root. The pulmonary artery is normal size. Normal inferior vena cava. Pericardium/Pleural No pericardial effusion. Medication 22 gauge I.V. with prn adaptor inserted into right arm. Diluted definity 3.5ml given slow IV push to enhance endocardial definition. MMode/2D Measurements & Calculations RVDd: 3.0 cm Ao root diam: 2.7 cm LAV(MOD-bp): 19.7 ml LAV(MOD-bp) Indexed: 10.8 ml/m2 LAV(MOD-sp2): 20.1 ml LAV(MOD-sp4): 18.4 ml LVAd ap4: 20.3 cm2 SV(MOD-sp4): 30.4 ml SV(sp4-el): 32.0 ml LVLd ap4: 6.8 cm EDV(MOD-sp4): 49.4 ml EDV(sp4-el): 51.2 ml LVAs ap4: 11.6 cm2 LVLs ap4: 5.9 cm ESV(MOD-sp4): 19.1 ml ESV(sp4-el): 19.2 ml EF(MOD-sp4): 61.4 % EF(sp4-el): 62.5 % LA A4 area: 10.1 cm2 Time Measurements MV dec time: 0.29 sec Doppler Measurements & Calculations MV E max [place]: 49.2 cm/sec Lat Peak E' [place]: 8.2 cm/sec Med Peak E' [place]: 5.0 cm/sec MV A max [place]: 75.8 cm/sec E/E' lat: 6.0 E/E' med: 9.8 MV E/A: 0.65 Ao V2 max: 86.4 cm/sec LV V1 max: 74.5 cm/sec PA V2 max: 77.9 cm/sec Ao max P.0 mmHg LV V1 max P.2 mmHg ECHO/Echo Complete W/ Contrast Interpretation Summary Normal LV size. Left ventricular systolic function is normal. The estimated ejection fraction is 62 %. Stage 1 diastolic dysfunction. Contrast injection was performed. Ordering Physician: Steven Pierre Referring Physician: STEVEN PIERRE Performed By: Taylor Pond RDCS
--- NOTE | 2023-02-23 15:43 | PFTCOMP_ITS ---
COMPLETE PULMONARY FUNCTION TEST INTERPRETATION Brief HPI: Patient is a 73-year-old female, currently under the care of Jordana Garcia, who presents to [facility] for complete pulmonary function tests secondary to diagnosis of dyspnea. Respiratory therapist reports good effort and reproducible results. Interpretation: Forced expiration spirometry shows a mild large airways obstructive ventilatory defect with an FEV1 of 75% predicted. There is no significant bronchodilator response by strict ATS criteria. Spirograms are of good quality and plateau slowly, indicating slowly emptying areas of the lungs. The respiratory flow volume loop shows decreased expiratory flow rates at high lung volumes consistent with small airways obstruction. Lung volumes by body plethysmography show a normal total lung capacity at 4.8 L, 87% predicted. All other lung volumes are within normal limits. Diffusion capacity by carbon monoxide is decreased at 56% predicted. The airway resistance is elevated. Compared to previous pulmonary function tests from June 2014, there has been no significant change. Impression: Irreversible mild large airways obstructive ventilatory defect with a disproportionate reduction diffusing capacity, but no significant change compared to 2015
== END | disposition home or self-care (01) ==
LOC: CVS 08:49
PROVIDERS: PCP Family Medicine; Referring Provider Nurse Practitioner Gerontology; Visit Provider Nurse Practitioner Gerontology
DX: R06.09 Other forms of dyspnea (principal)
CPT/HCPCS: 93306; 94060; 94726; 94729; Q9957; A4216; C8929

== ENCOUNTER → 2023-03-31 | Outpatient (CLI) | payer MEDICARE, MEDICAID, SELFPAY ==
--- OUTSIDE RECORDS SUMMARY | 2023-03-31 12:03 | XMS RPT_ITS | CCD ---
Author Name Unknown Address [address] [place] [address] Organization [facility] Care Team Providers Care Global Marketing Operations Manager Name Role Phone Ruslan Kang Janet Graham Primary Care Provider Allergies Allergy Classification Reported Allergen(s) Allergy Type Date of Onset Reaction(s) Facility (1 source) atorvastatin Drug Allergy 3 Other: See Comments [facility] Work Phone: (1 source) Benzalkonium Drug Allergy 3 Itching [facility] Work Phone: (1 source) Penicillins Drug Allergy 3 Itching [facility] Work Phone: (1 source) Sulfamethizole Drug Allergy 3 Other: See Comments [facility] Work Phone: Medications Completed/Discontinued Medications Medication Drug Class(es) Dates Sig (Normalized) Sig (Original) [id number] 200 actuat albuterol 0.09 mg/actuat metered dose inhaler (1 source) beta2-Adrenergic Agonist Start: 10-24-2018 VENTOLIN HFA 90 mcg/actuation inhaler aspirin 325 mg oral tablet (1 source) Platelet Aggregation Inhibitor, Nonsteroidal Anti-inflammatory Drug take 1 tablet by mouth once daily aspirin 325 mg tablet Take 325 mg by mouth once daily. 0 Active Problems Active Problems Problem Classification Problem Date Documented Da te Episodic/Chronic Coronary atherosclerosis and other heart disease (1 source) Coronary arteriosclerosis; Translations: [Atherosclerotic heart disease of [place] coronary artery without angina pectoris] Onset: 10-09-2012 10-09-2012 Chronic Disorders of lipid metabolism (1 source) Hyperlipidemia; Translations: [Hyperlipidemia, unspecified] Onset: 10-09-2012 10-09-2012 Chronic Essential hypertension (1 source) Hypertensive disorder; Translations: [Essential (primary) hypertension] Onset: 10-09-2012 10-09-2012 Chronic Other circulatory disease (1 source) Disorder of carotid artery; Translations: [Disorder of arteries and arterioles, unspecified] Onset: 10-09-2012 10-09-2012 Chronic Unclassified (1 source) Unknown / UNK(Unknown) Onset: 07-21-2017 Past or Other Problems Problem Classification Problem Date Documented Da te Episodic/Chronic Gastrointestinal hemorrhage (1 source) Rectal hemorrhage; Translations: [Hemorrhage of anus and rectum] Onset: 06-30-2012 06-30-2012 Episodic Unclassified (1 source) R73.02 Onset: 07-21-2017 Results Test Name Value Interpretation Reference Range Facil ity Encounters Encounter Date Encounter Type Care Provider Facility Start: 06-24-2021 Refill Evelyn amaro MD Work Phone: OB/Gynecology Procedures Date Procedure Procedure Detail Performing Clinician Start: 06-05-2012 Mammography Evelyn talbot MD Work Phone: Plan of Treatment Date Care Activity Detail Author Start: 10-09-2022 Urine microalbumin profile DTA P,TDAP,TD (2 - Td or Tdap) [facility] Start: 11-05-2021 Influenza vaccination INFLUENZA (Sea son Ended) [facility] Start: 03-07-2021 ADVANCE DIRECTIVE DISCUSSION ADVANCE DIRECTIVE DISCUSSION [facility] Start: 2015 BONE DENSITY BONE DENSITY [facility] Start: 2015 PNEUMOVAX AGE 65 AND OVER WITH 5YR LOOKBACK (#1) PNEUMOVAX AGE 65 AND OVER WITH 5YR LOOKBACK (#1) [facility] Start: 06-05-2013 Mammography MAMMOGRAM [facility] Start: 02-20-2000 SHINGRIX VACCINE (1 of 2) SHINGRIX V ACCINE (1 of 2) [facility] Start: 1995 COLOGUARD (FIT-DNA) COLOGUARD (FIT-D NA) [facility] Start: 1995 Colonoscopy COLONOSCOPY [facility] Start: 1995 COLORECTAL CANCER SCREENING COLORECTAL CANCER SCREENING [facility] Start: [address] COLONOGRAPHY [facility] Start: 1995 DIABETES SCREEN DIABETES SCREEN [facility] Start: 1995 FECAL OCCULT BLOOD FECAL OCCULT BLOO D [facility] Start: 1995 LIPID SCREEN LIPID SCREEN [facility] Start: 1995 [facility] Start: 02-20-1968 ANNUAL PCP TEAM DIRECTOR OF SLEEP MELCHOR DISEASE VISIT ANNUAL PCP TEAM CHRONIC DISEASE VISIT [facility] Start: 02-20-1968 BP CONTROLLED (<130/80) BP CONTROLLE D (<130/80) [facility] Start: 02-20-1968 Hepatitis B surface antibody level LDL CHOLESTEROL [facility] Start: 02-20-1968 HEPATITIS C SCREENING HEPATITIS C SC REENING [facility] Start: 1962 Adult depression scr eening assessment DEPRESSION SCREENING [facility] Start: 1955 COVID-19 VACCINE (1) COVID-19 VACCIN E (1) [facility] Immunizations Immunization Date Immunization Notes Care Provider Fa abraham 10-09-2012 tetanus toxoid, redu fanta diphtheria toxoid, and acellular pertussis vaccine, adsorbed Evelyn Ojeda MD Work Phone: [facility] Work Phone: Payers Date Payer Category Payer Medicaid [facility] MEDICAID MYC ARE [facility] MEDICAID [id number] 2019-Present [phone] [address] [place] [address] Medicaid [id number] 2008 Medicare [id number] Social History Date Type Detail Facility Start: 01-16-2019 Tobacco smoking stat us NHIS Ex-smoker [facility] Start: 01-16-2019 Cigarettes smoked cu rrent (pack per day) - Reported 0.5 [facility] Start: 01-16-2019 Tobacco use and exposure Smoke less tobacco non-user [facility] Start: 01-16-2019 Alcohol intake Current non-dr musculoskeletal physician of alcohol (finding) [facility] Start: 01-16-2019 History SDOH Financial 2 [facility] Start: 01-16-2019 History SDOH Food Worry 1 [facility] Start: 1950 Sex Assigned At Not on file C [facility] Clinic Note 06-24-2021 Telephone Encounter - Evelyn Ojeda MD - 06/24/2021 12:00 PM EDTTelephone Encounter - Farheen Lozano RN - 06/24/2021 11:50 AM EDT Note Date & Type Note Facility 06-24-2021 Miscellaneous Notes Noted. Has only been seen here once and not for 3 years or so. Can get from PCP or needs to schedule. Thanks. Evelyn Ojeda MD We have not seen patient in office since 2018. Patient mad an appointment in 02/2020 for annual and cancelled. Attempted to call patient but phone number has been disconnected. Patient has not returned phone call after last refill to schedule appointment documented in this encounter [facility] Summary Purpose Family History No Family History Records FoundNo Family History Records Found Advance Directives No Advanced Directives Records FoundNo Advanced Directives Records Found Additional Source Comments INFORMATION SOURCE (unrecogn ized section and content) DATE CREATED AUTHOR AUTHOR'S ORGANIZ ATION 04/15/2021 [facility] Source Comments (unrecognize d section and content) In the event this informatio n is protected by the Federal Confidentiality of Alcohol and Drug Abuse Patient Records regulations: The Federal rules restrict any use of the information to criminally investigate or prosecute any alcohol or drug abuse patient.[facility] Reason for Visit (unrecogniz ed section and content) Care Teams (unrecognized sec tion and content) FOR RECORDS PERTAINING TO PATIENTS WHO ARE OR HAVE BEEN ENROLLED IN A CHEMICAL DEPENDENCY/SUBSTANCEABUSE PROGRAM, SOME INFORMATION MAY BE OMITTED. This clinical summary was aggregated from multiple sources. Caution should be exercised in using it in the provision of clinical care. This summary normalizes information from multiple sources, and as a consequence, information in this document may materially change the coding, format and clinical context of patient data. In addition, data may be omitted in some cases. CLINICAL DECISIONS SHOULD BE BASED ON THE PRIMARY CLINICAL RECORDS. [facility] [employer] [facility]. provides no warranty or guarantee of the accuracy or completeness of information in this document.
[2023-03-31 12:39] LABS: Absolute Lymphocyte Count 1.99 X10^3/uL (0.83-4.51); Absolute Neutrophil Count 5.6 X10^3/uL (2.0-7.7); Basophil# 0.05 X10^3/uL; Basophil% 0.6 % (0-1); Eosinophil# 0.24 X10^3/uL; Eosinophils% 2.9 % (0-5); Hematocrit 49.5 % (37-47); Hemoglobin 15.8 g/dL (12.0-15.0); Lymphocyte # 1.99 X10^3/ul (0.83-4.51); Lymphocyte % 23.8 % (19-41); Mean Corp Hgb Conc 31.9 g/dL (32-36); Mean Corpuscular Hgb 30.2 pg (27.0-32.0); Mean Corpuscular Volume 94.5 fL (81-99); Mean Platelet Vol. 12.5 fl (6.2-12.0); Monocyte# 0.49 X10^3/uL; Monocyte% 5.9 % (0-10); NRBC Flagged by Analyzer 0 % (0-5); Neutrophil # 5.56 X10^3/uL (2.7-7.7); Neutrophil % 66.4 % (47-70); Platelet Count 204 K/mm3 (150-450); RBC Distribution Width CV 13.3 % (11.6-14.6); RBC Distribution Width SD 45.7 fl (35.1-43.9); Red Blood Count 5.24 M/mm3 (4.2-5.4); White Blood Count 8.4 K/mm3 (4.4-11.0)
[2023-03-31 13:14] LABS: PTHIN 327.3 pg/mL (18.4-80.1)
[2023-03-31 13:52] LABS: ALB/GLOB Ratio 0.9 RATIO (0.9-2.4); AST(SGOT) 57 U/L (15-37); Alanine Aminotransfer ALT/SGPT 49 U/L (13-56); Albumin, Serum 3.4 g/dL (3.2-5.0); Alkaline Phosphatase 93 U/L (45-117); Anion Gap 8 (5-15); BUN 6 mg/dL (7-18); Calcium,Total 9.2 mg/dL (8.5-10.1); Chloride 106 mmol/L (98-107); Cholesterol 213 mg/dL (200); EST Glomerular Filtration Rate 47 mL/min (>60); Est Glom Filt Rate - Afr Amer 57 mL/min (>60); Globulin 3.8 g/dL (2.2-4.2); Glucose 125 mg/dL (74-106); High Density Lipoprotein 41 mg/dL; Magnesium 2.2 mg/dL (1.6-2.6); Phosphorus 2.1 mg/dL (2.5-4.9); Potassium 3.7 mmol/L (3.5-5.1); Protein, Total 7.2 g/dL (6.4-8.2); Sodium Level 136 mmol/L (136-145); T4 Free Direct 1.06 ng/dL (0.76-1.46); Thyroid Stim Hormone (TSH) 2.07 uIU/mL (0.358-3.74); Triglycerides 220 mg/dL; Very Low Density Lipoprotein 44 mg/dL (5-40)
[2023-03-31 13:53] LABS: Hemoglobin A1c 5.8 % (3.8-5.6); Hepatitis B Surface Antibody Non-Reactive; Hepatitis B Surface Antigen Non-Reactive (Nonreactive); Hepatitis C Antibody Non-Reactive (Nonreactive); Vitamin D,25 Hydroxy 37.2 ng/mL
[2023-04-01 17:07] LABS: Anti-Thyroglobulin AB < 1.0 IU/mL (0.0-0.9); Thyroid Peroxidase AB 10 IU/mL (0-34)
== END | disposition home or self-care (01) ==
PROVIDERS: PCP Family Medicine; Referring Provider Family Medicine; Visit Provider Family Medicine
DX: N18.30 Chronic kidney disease, stage 3 unspecified (principal); I48.91 Unspecified atrial fibrillation; E78.5 Hyperlipidemia, unspecified; R79.89 Other specified abnormal findings of blood chemistry; M81.0 Age-related osteoporosis without current pathological fracture
CPT/HCPCS: 36415; 80053; 80061; 82306; 83036; 83735; 83970; 84100; 84432; 84439; 84443; 85025; 86376; 86706; 86800; 86803; 87340

== ENCOUNTER 2023-04-01 11:57 | Outpatient (CLI) | payer MEDICARE, MEDICAID, SELFPAY ==
[2023-04-01 12:03] LABS: Bacteria 0 SEEN /hpf (None Seen); Mucous, Urine 0 SEEN /hpf (<or=2+); Red Blood Cells-Urine 0 SEEN /hpf (0-5)
[2023-04-01 12:14] LABS: Color, Urine Yellow (Yellow); Glucose, Dipstick Normal (Normal); Ketone-Dipstick Negative (Negative); Leukocyte Esterase-Dipstick 100 /ul (Negative); Nitrite-Dipstick Negative (Negative); Occult Blood-Urine Negative /ul (Negative); Protein-Dipstick Negative (Negative); Urine Bilirubin Dipstick Negative (Negative); Urine Clarity Clear (Clear); Urine Urobilinogen Normal (Normal)
[2023-04-01 12:20] LABS: Squamous Epithelial Cells - UA 0-5 SEEN /hpf (5-10); White Blood Cells 10-25 SEEN /hpf (0-5)
--- OUTSIDE RECORDS SUMMARY | 2023-04-01 12:23 | XMS RPT_ITS | CCD ---
Author Name Unknown Address [address] [place] [address] Organization [facility] Care Team Providers Care Truck Loader And Unloader Name Role Phone Ruslan Kang Janet Graham Primary Care Provider [phone] Allergies Allergy Classification Reported Allergen(s) Allergy Type Date of Onset Reaction(s) Facility (1 source) atorvastatin Drug Allergy 3 Other: See Comments [facility] Work Phone: (1 source) Benzalkonium Drug Allergy 3 Itching [facility] Work Phone: (1 source) Penicillins Drug Allergy 3 Itching [facility] Work Phone: (1 source) Sulfamethizole Drug Allergy 3 Other: See Comments [facility] Work Phone: Medications Completed/Discontinued Medications Medication Drug Class(es) Dates Sig (Normalized) Sig (Original) [id number] 200 actuat albuterol 0.09 mg/actuat metered dose [...] Coronary arteriosclerosis; Translations: [Atherosclerotic heart disease of [place] coronary artery without angina pectoris] Onset: 10-09-2012 [...] DTA P,TDAP,TD (2 - Td or Tdap) [facility] Start: 11-05-2021 Influenza vaccination INFLUENZA (Sea son Ended) [facility] Start: 03-07-2021 ADVANCE DIRECTIVE DISCUSSION ADVANCE DIRECTIVE DISCUSSION [facility] Start: 2015 BONE DENSITY BONE DENSITY [facility] Start: 2015 PNEUMOVAX AGE 65 AND OVER WITH 5YR LOOKBACK (#1) PNEUMOVAX AGE 65 AND OVER WITH 5YR LOOKBACK (#1) [facility] Start: 06-05-2013 Mammography MAMMOGRAM [facility] Start: 02-20-2000 SHINGRIX VACCINE (1 of 2) SHINGRIX V ACCINE (1 of 2) [facility] Start: 1995 COLOGUARD (FIT-DNA) COLOGUARD (FIT-D NA) [facility] Start: 1995 Colonoscopy COLONOSCOPY [facility] Start: 1995 COLORECTAL CANCER SCREENING COLORECTAL CANCER SCREENING [facility] Start: [address] COLONOGRAPHY [facility] Start: 1995 DIABETES SCREEN DIABETES SCREEN [facility] Start: 1995 FECAL OCCULT BLOOD FECAL OCCULT BLOO D [facility] Start: 1995 LIPID SCREEN LIPID SCREEN [facility] Start: 1995 [facility] Start: 02-20-1968 ANNUAL PCP TEAM MOTOR BUILDER WINDER EMLCHOR DISEASE VISIT ANNUAL PCP TEAM CHRONIC DISEASE VISIT [facility] Start: 02-20-1968 BP CONTROLLED (<130/80) BP CONTROLLE D (<130/80) [facility] Start: 02-20-1968 Hepatitis B surface antibody level LDL CHOLESTEROL [facility] Start: 02-20-1968 HEPATITIS C SCREENING HEPATITIS C SC REENING [facility] Start: 1962 Adult depression scr eening assessment DEPRESSION SCREENING [facility] Start: 1955 COVID-19 VACCINE (1) COVID-19 VACCIN E (1) [facility] Immunizations Immunization Date Immunization Notes Care Provider Fa abraham 10-09-2012 tetanus toxoid, redu fanta diphtheria toxoid, and acellular pertussis vaccine, adsorbed Evelyn Ojeda MD Work Phone: [facility] Work Phone: Payers Date Payer Category Payer Medicaid [facility] MEDICAID MYC ARE [facility] MEDICAID [id number] 2019-Present [phone] [address] [place] [address] Medicaid [id number] 2008 Medicare [id number] Social History Date Type Detail Facility Start: 01-16-2019 Tobacco smoking stat us NHIS Ex-smoker [facility] Start: 01-16-2019 Cigarettes smoked cu rrent (pack per day) - Reported 0.5 [facility] Start: 01-16-2019 Tobacco use and exposure Smoke less tobacco non-user [facility] Start: 01-16-2019 Alcohol intake Current non-dr tourist cabin keeper of alcohol (finding) [facility] Start: 01-16-2019 History SDOH Financial 2 [facility] Start: 01-16-2019 History SDOH Food Worry 1 [facility] Start: 1950 Sex Assigned At Not on file C [facility] Clinic Note 06-24-2021 Telephone Encounter - Evelyn Ojeda MD - 06/24/2021 12:00 PM EDTTelephone Encounter - Farhene Lozano RN - 06/24/2021 11:50 AM EDT [...] to schedule appointment documented in this encounter [facility] Summary Purpose Family History No Family History Records FoundNo Family History Records Found Advance Directives No Advanced Directives Records FoundNo Advanced Directives Records Found Additional Source Comments INFORMATION SOURCE (unrecogn ized section and content) DATE CREATED AUTHOR AUTHOR'S ORGANIZ ATION 04/15/2021 [facility] Source Comments (unrecognize d section and content) In the event this informatio n is protected by the Federal Confidentiality of Alcohol and Drug Abuse Patient Records regulations: The Federal rules restrict any use of the information to criminally investigate or prosecute any alcohol or drug abuse patient.[facility] Reason for Visit (unrecogniz ed section and [...] BE BASED ON THE PRIMARY CLINICAL RECORDS. [facility] [employer] [facility]. provides no warranty or guarantee of the accuracy or completeness of information in this document.
[2023-04-01 12:33] LABS: Protein, Urine (Random) < 6.0 mg/dL (<11.9); Protein:Creat Ratio 89 mg/g CRE (0-200)
== END 2023-04-01 23:59 | disposition home or self-care (01) ==
LOC: LABSPEC 11:58
PROVIDERS: PCP Family Medicine; Referring Provider Family Medicine; Visit Provider Family Medicine
DX: I10 Essential (primary) hypertension (principal); N28.9 Disorder of kidney and ureter, unspecified
CPT/HCPCS: 81001; 82570; 84156

== ENCOUNTER → 2023-05-11 | Outpatient (CLI) | payer MEDICARE, MEDICAID, SELFPAY ==
--- OUTSIDE RECORDS SUMMARY | 2023-05-11 10:37 | XMS RPT_ITS | CCD ---
Author Name Unknown Address [address] [place] [address] Organization [facility] Care Team Providers Care Frit Burner Name Role Phone Ruslan Kang Janet Graham Primary Care Provider [phone] Allergies Allergy Classification Reported Allergen(s) Allergy Type Date of Onset Reaction(s) Facility (1 source) atorvastatin Drug Allergy 3 Other: See Comments [facility] Work Phone: (1 source) Benzalkonium Drug Allergy 3 Itching [facility] Work Phone: (1 source) Penicillins Drug Allergy 3 Itching [facility] Work Phone: (1 source) Sulfamethizole Drug Allergy 3 Other: See Comments [facility] Work Phone: Medications Completed/Discontinued Medications Medication Drug Class(es) Dates Sig (Normalized) Sig (Original) [id number] 200 actuat albuterol 0.09 mg/actuat metered dose [...] Coronary arteriosclerosis; Translations: [Atherosclerotic heart disease of [place] coronary artery without angina pectoris] Onset: 10-09-2012 [...] DTA P,TDAP,TD (2 - Td or Tdap) [facility] Start: 11-05-2021 Influenza vaccination INFLUENZA (Sea son Ended) [facility] Start: 03-07-2021 ADVANCE DIRECTIVE DISCUSSION ADVANCE DIRECTIVE DISCUSSION [facility] Start: 2015 BONE DENSITY BONE DENSITY [facility] Start: 2015 PNEUMOVAX AGE 65 AND OVER WITH 5YR LOOKBACK (#1) PNEUMOVAX AGE 65 AND OVER WITH 5YR LOOKBACK (#1) [facility] Start: 06-05-2013 Mammography MAMMOGRAM [facility] Start: 02-20-2000 SHINGRIX VACCINE (1 of 2) SHINGRIX V ACCINE (1 of 2) [facility] Start: 1995 COLOGUARD (FIT-DNA) COLOGUARD (FIT-D NA) [facility] Start: 1995 Colonoscopy COLONOSCOPY [facility] Start: 1995 COLORECTAL CANCER SCREENING COLORECTAL CANCER SCREENING [facility] Start: [address] COLONOGRAPHY [facility] Start: 1995 DIABETES SCREEN DIABETES SCREEN [facility] Start: 1995 FECAL OCCULT BLOOD FECAL OCCULT BLOO D [facility] Start: 1995 LIPID SCREEN LIPID SCREEN [facility] Start: 1995 [facility] Start: 02-20-1968 ANNUAL PCP TEAM OBSTETRIC ANAESTHETIST MELCHOR DISEASE VISIT ANNUAL PCP TEAM CHRONIC DISEASE VISIT [facility] Start: 02-20-1968 BP CONTROLLED (<130/80) BP CONTROLLE D (<130/80) [facility] Start: 02-20-1968 Hepatitis B surface antibody level LDL CHOLESTEROL [facility] Start: 02-20-1968 HEPATITIS C SCREENING HEPATITIS C SC REENING [facility] Start: 1962 Adult depression scr eening assessment DEPRESSION SCREENING [facility] Start: 1955 COVID-19 VACCINE (1) COVID-19 VACCIN E (1) [facility] Immunizations Immunization Date Immunization Notes Care Provider Fa abarham 10-09-2012 tetanus toxoid, redu fanta diphtheria toxoid, and acellular pertussis vaccine, adsorbed Evelyn Ojeda MD Work Phone: [facility] Work Phone: Payers Date Payer Category Payer Medicaid [facility] MEDICAID MYC ARE [facility] MEDICAID [id number] 2019-Present [phone] [address] [place] [address] Medicaid [id number] 2008 Medicare [id number] Social History Date Type Detail Facility Start: 01-16-2019 Tobacco smoking stat us NHIS Ex-smoker [facility] Start: 01-16-2019 Cigarettes smoked cu rrent (pack per day) - Reported 0.5 [facility] Start: 01-16-2019 Tobacco use and exposure Smoke less tobacco non-user [facility] Start: 01-16-2019 Alcohol intake Current non-dr crop production advisor of alcohol (finding) [facility] Start: 01-16-2019 History SDOH Financial 2 [facility] Start: 01-16-2019 History SDOH Food Worry 1 [facility] Start: 1950 Sex Assigned At Not on file C [facility] Clinic Note 06-24-2021 Telephone Encounter - [...] to schedule appointment documented in this encounter [facility] Summary Purpose Family History No Family History Records FoundNo Family History Records Found Advance Directives No Advanced Directives Records FoundNo Advanced Directives Records Found Additional Source Comments INFORMATION SOURCE (unrecogn ized section and content) DATE CREATED AUTHOR AUTHOR'S ORGANIZ ATION 04/15/2021 [facility] Source Comments (unrecognize d section and content) In the event this informatio n is protected by the Federal Confidentiality of Alcohol and Drug Abuse Patient Records regulations: The Federal rules restrict any use of the information to criminally investigate or prosecute any alcohol or drug abuse patient.[facility] Reason for Visit (unrecogniz ed section and [...] BE BASED ON THE PRIMARY CLINICAL RECORDS. [facility] [employer] [facility]. provides no warranty or guarantee of the accuracy or completeness of information in this document.
[2023-05-11 12:24] LABS: Absolute Lymphocyte Count 2.19 X10^3/uL (0.83-4.51); Absolute Neutrophil Count 6.6 X10^3/uL (2.0-7.7); Basophil# 0.05 X10^3/uL; Basophil% 0.5 % (0-1); Eosinophil# 0.18 X10^3/uL; Eosinophils% 1.8 % (0-5); Hemoglobin 14.9 g/dL (12.0-15.0); Lymphocyte # 2.19 X10^3/ul (0.83-4.51); Lymphocyte % 22.4 % (19-41); Mean Corp Hgb Conc 31.7 g/dL (32-36); Mean Corpuscular Hgb 29.7 pg (27.0-32.0); Mean Corpuscular Volume 93.6 fL (81-99); Mean Platelet Vol. 12.5 fl (6.2-12.0); Monocyte# 0.76 X10^3/uL; Monocyte% 7.8 % (0-10); NRBC Flagged by Analyzer 0 % (0-5); Neutrophil # 6.56 X10^3/uL (2.7-7.7); Neutrophil % 67.2 % (47-70); Platelet Count 213 K/mm3 (150-450); RBC Distribution Width SD 47.7 fl (35.1-43.9); Red Blood Count 5.02 M/mm3 (4.2-5.4); White Blood Count 9.8 K/mm3 (4.4-11.0)
[2023-05-11 13:25] LABS: AST(SGOT) 91 U/L (15-37); Alanine Aminotransfer ALT/SGPT 68 U/L (13-56); Albumin, Serum 3.5 g/dL (3.2-5.0); Alkaline Phosphatase 93 U/L (45-117); Anion Gap 7 (5-15); BUN 5 mg/dL (7-18); BUN/Creat Ratio 4.5 RATIO (10-20); Calcium,Total 8.7 mg/dL (8.5-10.1); Chloride 105 mmol/L (98-107); Creatinine, Serum 1.12 mg/dL (0.55-1.02); EST Glomerular Filtration Rate 51 mL/min (>60); Est Glom Filt Rate - Afr Amer 61 mL/min (>60); Globulin 3.6 g/dL (2.2-4.2); Glucose 117 mg/dL (74-106); Magnesium 2.1 mg/dL (1.6-2.6); Phosphorus 2.2 mg/dL (2.5-4.9); Potassium 3.1 mmol/L (3.5-5.1); Protein, Total 7.1 g/dL (6.4-8.2); Sodium Level 140 mmol/L (136-145)
== END | disposition home or self-care (01) ==
LOC: MFPLAB 10:12
PROVIDERS: PCP Family Medicine; Visit Provider Family Medicine
DX: I48.91 Unspecified atrial fibrillation (principal); N18.30 Chronic kidney disease, stage 3 unspecified
CPT/HCPCS: 36415; 80053; 83735; 84100; 85025

== ENCOUNTER → 2023-05-12 | Outpatient (CLI) | payer MEDICARE, MEDICAID, SELFPAY ==
--- OUTSIDE RECORDS SUMMARY | 2023-05-12 08:39 | XMS RPT_ITS | CCD ---
Author Name Unknown Address [address] [place] [address] Organization [facility] Care Team Providers Care Moving Van Driver Name Role Phone Ruslan Kang Janet Graham Primary Care Provider Allergies Allergy Classification Reported Allergen(s) Allergy Type Date of Onset Reaction(s) Facility (1 source) atorvastatin Drug Allergy 3 Other: See Comments [facility] Work Phone: (1 source) Benzalkonium Drug Allergy 3 Itching [facility] Work Phone: (1 source) Penicillins Drug Allergy 3 Itching [facility] Work Phone: (1 source) Sulfamethizole Drug Allergy 3 Other: See Comments [facility] Work Phone: Medications Completed/Discontinued Medications Medication Drug Class(es) Dates Sig (Normalized) Sig (Original) [id number] 200 actuat albuterol 0.09 mg/actuat metered dose [...] Coronary arteriosclerosis; Translations: [Atherosclerotic heart disease of [place] coronary artery without angina pectoris] Onset: 10-09-2012 [...] DTA P,TDAP,TD (2 - Td or Tdap) [facility] Start: 11-05-2021 Influenza vaccination INFLUENZA (Sea son Ended) [facility] Start: 03-07-2021 ADVANCE DIRECTIVE DISCUSSION ADVANCE DIRECTIVE DISCUSSION [facility] Start: 2015 BONE DENSITY BONE DENSITY [facility] Start: 2015 PNEUMOVAX AGE 65 AND OVER WITH 5YR LOOKBACK (#1) PNEUMOVAX AGE 65 AND OVER WITH 5YR LOOKBACK (#1) [facility] Start: 06-05-2013 Mammography MAMMOGRAM [facility] Start: 02-20-2000 SHINGRIX VACCINE (1 of 2) SHINGRIX V ACCINE (1 of 2) [facility] Start: 1995 COLOGUARD (FIT-DNA) COLOGUARD (FIT-D NA) [facility] Start: 1995 Colonoscopy COLONOSCOPY [facility] Start: 1995 COLORECTAL CANCER SCREENING COLORECTAL CANCER SCREENING [facility] Start: [address] COLONOGRAPHY [facility] Start: 1995 DIABETES SCREEN DIABETES SCREEN [facility] Start: 1995 FECAL OCCULT BLOOD FECAL OCCULT BLOO D [facility] Start: 1995 LIPID SCREEN LIPID SCREEN [facility] Start: 1995 [facility] Start: 02-20-1968 ANNUAL PCP TEAM COMMISSARY 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 DISEASE VISIT ANNUAL PCP TEAM CHRONIC DISEASE VISIT [facility] Start: 02-20-1968 BP CONTROLLED (<130/80) BP CONTROLLE D (<130/80) [facility] Start: 02-20-1968 Hepatitis B surface antibody level LDL CHOLESTEROL [facility] Start: 02-20-1968 HEPATITIS C SCREENING HEPATITIS C SC REENING [facility] Start: 1962 Adult depression scr eening assessment DEPRESSION SCREENING [facility] Start: 1955 COVID-19 VACCINE (1) COVID-19 VACCIN E (1) [facility] Immunizations Immunization Date Immunization Notes Care Provider Fa abraham 10-09-2012 tetanus toxoid, redu fanta diphtheria toxoid, and acellular pertussis vaccine, adsorbed Evelyn Ojeda MD Work Phone: [facility] Work Phone: Payers Date Payer Category Payer Medicaid [facility] MEDICAID MYC ARE [facility] MEDICAID [id number] 2019-Present [phone] [address] [place] [address] Medicaid [id number] 2008 Medicare [id number] Social History Date Type Detail Facility Start: 01-16-2019 Tobacco smoking stat us NHIS Ex-smoker [facility] Start: 01-16-2019 Cigarettes smoked cu rrent (pack per day) - Reported 0.5 [facility] Start: 01-16-2019 Tobacco use and exposure Smoke less tobacco non-user [facility] Start: 01-16-2019 Alcohol intake Current non-dr vineyard worker of alcohol (finding) [facility] Start: 01-16-2019 History SDOH Financial 2 [facility] Start: 01-16-2019 History SDOH Food Worry 1 [facility] Start: 1950 Sex Assigned At Not on file C [facility] Clinic Note 06-24-2021 Telephone Encounter - [...] to schedule appointment documented in this encounter [facility] Summary Purpose Family History No Family History Records FoundNo Family History Records Found Advance Directives No Advanced Directives Records FoundNo Advanced Directives Records Found Additional Source Comments INFORMATION SOURCE (unrecogn ized section and content) DATE CREATED AUTHOR AUTHOR'S ORGANIZ ATION 04/15/2021 [facility] Source Comments (unrecognize d section and content) In the event this informatio n is protected by the Federal Confidentiality of Alcohol and Drug Abuse Patient Records regulations: The Federal rules restrict any use of the information to criminally investigate or prosecute any alcohol or drug abuse patient.[facility] Reason for Visit (unrecogniz ed section and [...] BE BASED ON THE PRIMARY CLINICAL RECORDS. [facility] [employer] [facility]. provides no warranty or guarantee of the accuracy or completeness of information in this document.
[2023-05-12 10:00] LABS: Hepatitis B Surface Antibody Non-Reactive; Hepatitis B Surface Antigen Preliminary Reactive (Nonreactive); Hepatitis C Antibody Non-Reactive (Nonreactive)
== END | disposition home or self-care (01) ==
LOC: LABSPEC 08:20
PROVIDERS: PCP Family Medicine; Visit Provider Family Medicine
DX: R94.5 Abnormal results of liver function studies (principal)
CPT/HCPCS: 86706; 86803; 87340

== ENCOUNTER → 2023-05-17 | Outpatient (CLI) | payer MEDICARE, MEDICAID, SELFPAY ==
--- NOTE | 2023-05-17 14:03 | RAD_ITS ---
STUDY: X-RAY CHEST REASON FOR EXAM: Female, 73 years old. For PPM generator change. TECHNIQUE: Frontal and lateral views of the chest. COMPARISON: 12/28/2022 FINDINGS: Stable cardiomegaly, sternotomy wires, dual lead cardiac pacer, changes of coronary artery bypass grafting, prominent central pulmonary arteries, aortic tortuosity with calcification and mild hyperinflation with mild diffuse interstitial prominence. Clips projected over the left lower neck region unchanged. No active or acute cardiopulmonary disease. No abnormality of the visualized soft tissue structures of the upper abdomen. RAD/Chest PA and Lateral IMPRESSION: Stable chest with no acute or active cardiopulmonary disease. Electronically Signed: Pancho Whatley MD at 14:32 EDT ,
[2023-05-17 15:12] LABS: Bacteria 0 SEEN /hpf (None Seen); Mucous, Urine 0 SEEN /hpf (<or=2+); Red Blood Cells-Urine 0 SEEN /hpf (0-5)
[2023-05-17 15:59] LABS: Color, Urine Yellow (Yellow); Glucose, Dipstick Normal (Normal); Ketone-Dipstick 5 mg/dl (Negative); Leukocyte Esterase-Dipstick 500 /ul (Negative); Nitrite-Dipstick Negative (Negative); Occult Blood-Urine 10 /ul (Negative); Protein-Dipstick 15 mg/dl (Negative); Urine Bilirubin Dipstick Negative (Negative); Urine Clarity Clear (Clear); Urine Urobilinogen Normal (Normal); Urine pH 6.5 (5.0 - 8.0)
[2023-05-17 16:00] LABS: Hematocrit 47.5 % (37-47); Hemoglobin 15.1 g/dL (12.0-15.0); Mean Corp Hgb Conc 31.8 g/dL (32-36); Mean Corpuscular Hgb 29.8 pg (27.0-32.0); Mean Corpuscular Volume 93.9 fL (81-99); Mean Platelet Vol. 13.1 fl (6.2-12.0); Platelet Count 218 K/mm3 (150-450); RBC Distribution Width SD 48.1 fl (35.1-43.9); Red Blood Count 5.06 M/mm3 (4.2-5.4); White Blood Count 9.4 K/mm3 (4.4-11.0)
[2023-05-17 16:33] LABS: Anion Gap 6 (5-15); BUN 9 mg/dL (7-18); BUN/Creat Ratio 7.8 RATIO (10-20); Calcium,Total 9.1 mg/dL (8.5-10.1); Chloride 104 mmol/L (98-107); Creatinine, Serum 1.15 mg/dL (0.55-1.02); EST Glomerular Filtration Rate 49 mL/min (>60); Est Glom Filt Rate - Afr Amer 59 mL/min (>60); Glucose 113 mg/dL (74-106); Potassium 3.7 mmol/L (3.5-5.1); Sodium Level 138 mmol/L (136-145)
[2023-05-17 16:55] LABS: Squamous Epithelial Cells - UA 0-5 SEEN /hpf (5-10); White Blood Cells 5-10 SEEN /hpf (0-5)
[2023-05-17 16:56] LABS: International Normalized Ratio 1.9; Prothrombin Time (Protime)PT. 21.6 SECONDS (11.7-14.9)
--- OUTSIDE RECORDS SUMMARY | 2023-05-18 02:00 | XMS RPT_ITS | CCD ---
Author Name Unknown Address [address] [place] [address] Organization [facility] Care Team Providers Care Rehabilitation Consultant Name Role Phone Ruslan Kang Janet Graham Primary Care Provider Allergies Allergy Classification Reported Allergen(s) Allergy Type Date of Onset Reaction(s) Facility (1 source) atorvastatin Drug Allergy 3 Other: See Comments [facility] Work Phone: (1 source) Benzalkonium Drug Allergy 3 Itching [facility] Work Phone: (1 source) Penicillins Drug Allergy 3 Itching [facility] Work Phone: (1 source) Sulfamethizole Drug Allergy 3 Other: See Comments [facility] Work Phone: Medications Completed/Discontinued Medications Medication Drug Class(es) Dates Sig (Normalized) Sig (Original) [id number] 200 actuat albuterol 0.09 mg/actuat metered dose [...] Coronary arteriosclerosis; Translations: [Atherosclerotic heart disease of [place] coronary artery without angina pectoris] Onset: 10-09-2012 [...] DTA P,TDAP,TD (2 - Td or Tdap) [facility] Start: 11-05-2021 Influenza vaccination INFLUENZA (Sea son Ended) [facility] Start: 03-07-2021 ADVANCE DIRECTIVE DISCUSSION ADVANCE DIRECTIVE DISCUSSION [facility] Start: 2015 BONE DENSITY BONE DENSITY [facility] Start: 2015 PNEUMOVAX AGE 65 AND OVER WITH 5YR LOOKBACK (#1) PNEUMOVAX AGE 65 AND OVER WITH 5YR LOOKBACK (#1) [facility] Start: 06-05-2013 Mammography MAMMOGRAM [facility] Start: 02-20-2000 SHINGRIX VACCINE (1 of 2) SHINGRIX V ACCINE (1 of 2) [facility] Start: 1995 COLOGUARD (FIT-DNA) COLOGUARD (FIT-D NA) [facility] Start: 1995 Colonoscopy COLONOSCOPY [facility] Start: 1995 COLORECTAL CANCER SCREENING COLORECTAL CANCER SCREENING [facility] Start: [address] COLONOGRAPHY [facility] Start: 1995 DIABETES SCREEN DIABETES SCREEN [facility] Start: 1995 FECAL OCCULT BLOOD FECAL OCCULT BLOO D [facility] Start: 1995 LIPID SCREEN LIPID SCREEN [facility] Start: 1995 [facility] Start: 02-20-1968 ANNUAL PCP TEAM YARD SPECIALIST MELCHOR DISEASE VISIT ANNUAL PCP TEAM CHRONIC DISEASE VISIT [facility] Start: 02-20-1968 BP CONTROLLED (<130/80) BP CONTROLLE D (<130/80) [facility] Start: 02-20-1968 Hepatitis B surface antibody level LDL CHOLESTEROL [facility] Start: 02-20-1968 HEPATITIS C SCREENING HEPATITIS C SC REENING [facility] Start: 1962 Adult depression scr eening assessment DEPRESSION SCREENING [facility] Start: 1955 COVID-19 VACCINE (1) COVID-19 VACCIN E (1) [facility] Immunizations Immunization Date Immunization Notes Care Provider Fa abraham 10-09-2012 tetanus toxoid, redu fanta diphtheria toxoid, and acellular pertussis vaccine, adsorbed Evelyn Ojeda MD Work Phone: [facility] Work Phone: Payers Date Payer Category Payer Medicaid [facility] MEDICAID MYC ARE [facility] MEDICAID [id number] 2019-Present [phone] [address] [place] [address] Medicaid 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) [facility] Start: 01-16-2019 History SDOH Financial 2 [facility] Start: 01-16-2019 History SDOH Food Worry 1 [facility] Start: 1950 Sex Assigned At Not on file [facility] Note 06-24-2021 Telephone Encounter - [...] to schedule appointment documented in this encounter [facility] Summary Purpose Family History No Family History Records FoundNo Family History Records Found Advance Directives No Advanced Directives Records FoundNo Advanced Directives Records Found Additional Source Comments INFORMATION SOURCE (unrecogn ized section and content) DATE CREATED AUTHOR AUTHOR'S ORGANIZ ATION 04/15/2021 [facility] Source Comments (unrecognize d section and content) In the event this informatio n is protected by the Federal Confidentiality of Alcohol and Drug Abuse Patient Records regulations: The Federal rules restrict any use of the information to criminally investigate or prosecute any alcohol or drug abuse patient.[facility] Reason for Visit (unrecogniz ed section and [...] BE BASED ON THE PRIMARY CLINICAL RECORDS. [facility] [employer] [facility]. provides no warranty or guarantee of the accuracy or completeness of information in this document.
== END | disposition home or self-care (01) ==
PROVIDERS: PCP Family Medicine; Referring Provider Internal Medicine Cardiovascular Disease; Visit Provider Internal Medicine Cardiovascular Disease
DX: T82.111A Breakdown (mechanical) of cardiac pulse generator (battery), initial encounter (principal); I49.5 Sick sinus syndrome; X58.XXXA Exposure to other specified factors, initial encounter
CPT/HCPCS: 36415; 71046; 80048; 81001; 85027; 85610

== ENCOUNTER 2023-05-23 11:22 | Day surgery (SDC) | payer MEDICARE, MEDICAID, SELFPAY ==
[2023-05-20 11:18] VITALS: BMI 32.7
[2023-05-23 18:40] LABS: INR Fingerstick 1.2; Prothrombin Time Fingerstick 13.1 SEC (11.7-14.9)
--- NOTE | 2023-05-24 14:26 | CL.IE_ITS ---
Patient: DOT JOSEPH Study Date: 05/23/2023 Performing: Quinn Pérez MD : 1950 Age: 73 Gender: female PROCEDURES PERFORMED [id number]-([id number])BATTERY REMOVAL+REPLACEMENT PACER-DUAL LEAD INDICATIONS Sinoatrial node dysfunction/Sick sinus syndrome: Advisory Mode- 96% Atrial paced, atrial dependent. Will not tolerate VVI safety mode. PROCEDURE DETAILS The patient was brought to the Catheterization Lab in the postabsorptive nonsedated state. Informed consent was obtained prior to the procedure. Local anesthetic was given subcutaneously to the left upper chest area with Lidocaine 2%. Incision was made to the left upper chest. PPM atrial lead (existing) was checked and tested. PPM ventricular lead (existing) was checked and tested. PPM generator was attached to the lead(s) and inserted into the pocket. Device pocket was irrigated with antibiotic. Subcutaneous closure was completed with 3-0 Vicryl. Skin closure was completed with 4-0 Vicryl. Instrument, sponge, and needle counts were noted to be normal. The patient tolerated the procedure well. 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: [employer] Ad[employer] [id number], [place] [id number] IMPLANTED DEVICE(S): PPM Generator - Trolley Wire Installer: [employer], Model # [employer] MRI DR Model L111 , Serial # [id number] DEVICE PARAMETERS DEVICE PARAMETERS: Mode- DDDR Lower rate- 60 Upper rate- 130 CONCLUSIONS / RECOMMENDATIONS Device Conclusions: Successful implantation of a dual chamber pacemaker battery change and replacement Device Recommendations: Follow up with Primary Care Physician PROCEDURE MEDICATIONS Fentanyl 50 mcg IV Versed 1 mg IV Versed 1 mg IV Oxygen: 2 L/min via nasal cannula Clindamycin 900 mg IV 05/23/2023 13:08:55 Signed By Quinn Pérez MD On 05/23/2023 13:52:38 Quinn Pérez MD
== END 2023-05-23 14:52 | disposition home or self-care (01) ==
LOC: CLSP 11:23
PROVIDERS: PCP Family Medicine; Referring Provider Internal Medicine Cardiovascular Disease; Visit Provider Internal Medicine Cardiovascular Disease
DX: I49.5 Sick sinus syndrome (principal); Z95.0 Presence of cardiac pacemaker; Z97.8 Presence of other specified devices; Z79.82 Long term (current) use of aspirin; Z79.51 Long term (current) use of inhaled steroids; Z79.899 Other long term (current) drug therapy; Z79.01 Long term (current) use of anticoagulants
CPT/HCPCS: 33228; 36416; 85610; 99152; 99153; J7040; J7050

== ENCOUNTER → 2023-05-25 | Outpatient (CLI) | payer MEDICARE, MEDICAID, SELFPAY ==
--- NOTE | 2023-05-25 16:06 | ST.MBS ---
Modified Barium Swallow Patient Information Study Date: 05/25/23 Study Time: 13:00 Direct Billable Minutes: 120 Total Minutes procedure & reportin Diagnosis: Dysphagia R13.10 Referring Physician: Erasmo Pierre Reason for Referral: Objectively assess swallow function, assess risk for aspiration, and determine recommendations for least restrictive diet textures and compensatory strategies to improve safety of swallow. Medical History: PMH: COPD, GERD (managed by medication, following with Dr. Kirk), recent sx for placement of pacemaker (05/23/23), Celiac disease. The patient was referred for MBSS by PCP following coughing and vomiting of a pill last week. Pill was to manage recent UTI. 05/23/23 She had surgery for pacemaker placement. Patient denies coughing or swallowing difficulty with food or drink. Other than recent episode with her UTI medication, she reports no sensation of retention or vomiting with food or drink. Current Diet Ordered: Regular textures / Thin liquids Dentition: Edentulous Mental Status: WNL (Able to follow commands for evaluation) Respiratory Status: Oxygenating on Room Air Penetration-Aspiration Scale Penetration-Aspiration Scale: OBJECTIVE ASSESSMENT OF SWALLOW FUNCTION (QUANTITATIVE ? PER TRIAL): PENETRATION / ASPIRATION SCALE (JOHANSEN): 1 = does not enter airway 2 = enters airway/above vocal folds/ejected 3 = enters airway/above vocal folds/not ejected 4 = enters airway/contacts vocal folds/ejected 5 = enters airway/contacts vocal folds/not ejected 6 = enters airway/below vocal folds/ejected 7 = enters airway/below vocal folds/not ejected despite effort 8 = enters airway/below vocal folds/no effort VIDEOFLOROSCOPIC SCALE SCORE (JOHANSEN): Grade I = aspiration of material that has penetrated into the laryngeal vestibule, intact cough reflex Grade II = aspiration < 10 % of the bolus, intact cough reflex Grade III = aspiration of < 10 % of the bolus, reduced cough reflex or aspiration of > 10 % of the bolus, intact cough reflex Grade IV = aspiration of > 10 % of the bolus, reduced cough reflex Penetration-Aspiration Scale Score Thin Liquid via teaspoon: Result: 1= does not enter airway Thin Liquid via teaspoon Trial 2: Result: 1= does not enter airway Thin Liquid via large single sip: cup: Result: 1= does not enter airway [place] Thick Liquid via small single sip: cup: Result: 1= does not enter airway Pudding via teaspoon: Result: 1= does not enter airway Comment: Esophageal screen - Retention of pudding in mid-upper esophagus. Thin Liquid via single sip: straw: Result: 1= does not enter airway Comment: Esophageal screen - Minimal improvement of retention of pudding, but liquids appeared to clear. Retention of pudding progressed to lower esophagus. Potato chip (d/t Celiacs) with pudding coating: Result: 1= does not enter airway Barium tablet with applesauce: Result: 1= does not enter airway Comment: Esophageal screen - Complete clearance Oral Phase Labial Seal: Escape beyond mid-chin Tongue Control During Bolus Hold: Escape to lateral buccal cavity/floor of mouth Bolus Preparation/Mastication: Slow prolonged chewing/mashing with complete recollection Bolus Transport/Lingual Motion: Repetitive/disorganized tongue motion (possibly due to dislike of taste - patient speaking with various boluses in her mouth due to dislike of taste of barium) Oral Residue: Residue collection on oral structures (piecemeal deglutition) Pharyngeal Phase Initiation of Pharyngeal Swallow: Bolus head in valleculae Soft Palate Elevation: Trace column of contrast/air between soft palate and pharyngeal wall Laryngeal Elevation: Comp. Superior move thyroid cart w/comp. apprx arytenoid cart-epig pet Anterior Hyoid Excursion: Complete anterior movement Epiglottic Movement: Complete inversion Laryngeal Vestibule Closure at Height of Swallow: Complete; no air/contrast in laryngeal vestibule Pharyngeal Stripping Wave: Present - complete Pharyngoesophageal Segment Opening: Complete distension and complete duration; no obstruction of flow Tongue Base Retraction: Trace column of contrast between tongue base & post. pharyngeal wall Pharyngeal Residue: Trace residue within or on pharyngeal structures Esophageal Phase Esophageal Clearance: Esophageal retention Diagnosis/Impression Diagnosis: Oropharyngeal swallow function grossly WNL; Esophageal dysphagia R13.14 Impression: The patient demonstrates oropharyngeal swallow function grossly WNL. Upon review of images, she appears to have disorganized tongue motion for A-P transport; however, patient was speaking during the study as she had various boluses in her mouth due to dislike of the taste of barium. Piecemeal deglutition across all consistencies with independent initiation of a second swallow as needed. Prolonged, but adequate mastication of potato chip trial. No laryngeal penetration or aspiration observed during the study. The esophageal phase is primarily marked by... -Significant esophageal retention of pudding in the upper and mid esophagus. Thin liquid wash was somewhat effective in clearing pudding contrast from the upper esophagus. Recommendations Diet: Regular Textures and Thin Liquids Compensatory Strategies: Small Bites, Small Sips, Slow Rate, Alternate bites/solids and sips/liquids, Sitting upright and Remain sitting upright for 30 minutes after PO intake Recommend Repeat Modified Barium Swallow: No Need for Skilled Speech Therapy Services: No Recommended Referrals: GI Consult (Consider GI consult if concerns for s/s of reflux or regurgitation of food/drink due to esophageal retention of pudding.) Education Completed: 1. Described result of evaluation. Status Active ST Patient: Active Contact Information [facility] Speech Therapy:: Ivonne Dozier M.A. CCC-PROPELLANT CHARGE LOADER? Speech-Language Pathologist?? [facility] [id number]?? [place] [address]?? [email or web address]?? [phone]??
== END | disposition home or self-care (01) ==
LOC: CT 12:43
PROVIDERS: PCP Family Medicine; Referring Provider Family Medicine; Visit Provider Family Medicine
DX: R13.10 Dysphagia, unspecified (principal); Z87.891 Personal history of nicotine dependence
CPT/HCPCS: 74230; 92611

== ENCOUNTER → 2023-05-27 | Outpatient (CLI) | payer MEDICARE, MEDICAID, SELFPAY ==
--- NOTE | 2023-05-27 14:04 | CT_ITS ---
STUDY: LOW DOSE CT LUNG CANCER SCREENING REASON FOR EXAM: Female, 73 years old. History of nicotine dependence. Former smoker. The patient smoked 3 packs per day for 50 years. RADIATION DOSAGE (If Supplied By Facility): CTDIvol = ( 3.02 ) mGy, DLP = ( 97.79 ) mGycm TECHNIQUE: No contrast was administered. Low dose technique was utilized (average mAS-38 and kVp 120). 1.25 mm axial source images with a slice interval of 1.25-mm were reconstructed in lung windows. 2.5 mm axial source images with a slice interval of 2.5-mm were reconstructed in lung windows. 5.0 mm axial source images with a slice interval of 5.0-mm were reconstructed in soft tissue windows. COMPARISON: Comparison is made with prior study dated March 17, 2022. NODULES: No suspicious nodules are seen. Emphysema: Hyperinflation. Emphysematous changes. Scarring in the right lung apex. Mild scarring in the medial aspect of the left upper lobe. Mild linear scarring in the right middle lobe and lingular segment of the left upper lobe. Endobronchial lesion: None Aorta: Atherosclerotic plaque formation. CORONARY ARTERIES: Coronary artery calcification is seen. Prior CABG. Heart: A left-sided dual-chamber pacemaker is seen. Pulmonary artery: Unremarkable Mediastinal nodes: Stable small benign-appearing mediastinal lymph nodes. Other chest and abdominal findings: CT/Low Dose CT Lung Screening IMPRESSION: Lung-RADS category 2 - Continue annual screening with LDCT in 12 months. IMPORTANT NOTES FOR USE: ACR Lung-RADS Version 1.1 Assessment Categories Release Date: 2018 Category: Coded 0-4 bases on nodule(s) with highest degree of suspicion. Negative screen is defined as categories 1 and 2; a positive screen is defined as categories 3 and 4. Category 3 and 4A nodules that are unchanged on interval CT should be coded as category 2, and individuals returned to screening in 12 months. Category 4X: Category 3 or 4 nodules with additional imaging findings that increase the suspicion of lung cancer, such as spiculation, GGN that doubles in size in 1 year, enlarged lymph notes, etc. Category Modifiers: S (significant finding unrelated to lung cancer) Electronically Signed: Lane Marcus MD at 14:24 EDT ,
== END | disposition home or self-care (01) ==
PROVIDERS: PCP Family Medicine; Referring Provider Family Medicine; Visit Provider Family Medicine
DX: Z87.891 Personal history of nicotine dependence (principal)
CPT/HCPCS: 71271

== ENCOUNTER → 2023-07-05 | Outpatient (CLI) | payer MEDICARE, MEDICAID, SELFPAY ==
[2023-07-05 12:56] LABS: Absolute Lymphocyte Count 3.25 X10^3/uL (0.83-4.51); Absolute Neutrophil Count 5.9 X10^3/uL (2.0-7.7); Basophil# 0.06 X10^3/uL; Basophil% 0.6 % (0-1); Eosinophil# 0.37 X10^3/uL; Eosinophils% 3.6 % (0-5); Hemoglobin 15.7 g/dL (12.0-15.0); Lymphocyte # 3.25 X10^3/ul (0.83-4.51); Lymphocyte % 31.4 % (19-41); Mean Corpuscular Hgb 29.7 pg (27.0-32.0); Mean Corpuscular Volume 92.8 fL (81-99); Mean Platelet Vol. 13.4 fl (6.2-12.0); Monocyte# 0.72 X10^3/uL; Monocyte% 6.9 % (0-10); NRBC Flagged by Analyzer 0 % (0-5); Neutrophil # 5.93 X10^3/uL (2.7-7.7); Neutrophil % 57.2 % (47-70); Platelet Count 219 K/mm3 (150-450); RBC Distribution Width CV 13.4 % (11.6-14.6); RBC Distribution Width SD 45.9 fl (35.1-43.9); Red Blood Count 5.28 M/mm3 (4.2-5.4); White Blood Count 10.4 K/mm3 (4.4-11.0)
[2023-07-05 13:09] LABS: Erythrocyte Sedimentation Rate 15 mm/hr (0-30)
== END | disposition home or self-care (01) ==
LOC: LAB 11:13
PROVIDERS: PCP Family Medicine; Referring Provider Internal Medicine Cardiovascular Disease; Visit Provider Internal Medicine Cardiovascular Disease
DX: T82.111D Breakdown (mechanical) of cardiac pulse generator (battery), subsequent encounter (principal); X58.XXXD Exposure to other specified factors, subsequent encounter
CPT/HCPCS: 36415; 85025; 85652

== ENCOUNTER → 2023-08-31 | Outpatient (CLI) | payer MEDICARE, MEDICAID, SELFPAY ==
[2023-08-31 12:01] LABS: Mucous, Urine 0 SEEN /hpf (<or=2+)
[2023-08-31 15:18] LABS: Absolute Lymphocyte Count 2.78 X10^3/uL (0.83-4.51); Absolute Neutrophil Count 4.5 X10^3/uL (2.0-7.7); Basophil# 0.04 X10^3/uL; Basophil% 0.5 % (0-1); Eosinophil# 0.22 X10^3/uL; Eosinophils% 2.7 % (0-5); Hematocrit 48.2 % (37-47); Hemoglobin 15.3 g/dL (12.0-15.0); Lymphocyte # 2.78 X10^3/ul (0.83-4.51); Lymphocyte % 33.8 % (19-41); Mean Corp Hgb Conc 31.7 g/dL (32-36); Mean Corpuscular Hgb 29.9 pg (27.0-32.0); Mean Corpuscular Volume 94.3 fL (81-99); Monocyte# 0.62 X10^3/uL; Monocyte% 7.5 % (0-10); NRBC Flagged by Analyzer 0 % (0-5); Neutrophil # 4.54 X10^3/uL (2.7-7.7); Neutrophil % 55.3 % (47-70); Platelet Count 216 K/mm3 (150-450); RBC Distribution Width CV 13.8 % (11.6-14.6); RBC Distribution Width SD 47.9 fl (35.1-43.9); Red Blood Count 5.11 M/mm3 (4.2-5.4); White Blood Count 8.2 K/mm3 (4.4-11.0)
[2023-08-31 15:30] LABS: Color, Urine Yellow (Yellow); Glucose, Dipstick Normal (Normal); Ketone-Dipstick Negative (Negative); Leukocyte Esterase-Dipstick 500 /ul (Negative); Nitrite-Dipstick Negative (Negative); Occult Blood-Urine 10 /ul (Negative); Protein, Urine (Random) 11.1 mg/dL (<11.9); Protein-Dipstick Negative (Negative); Protein:Creat Ratio 104 mg/g CRE (0-200); Urine Bilirubin Dipstick Negative (Negative); Urine Clarity Sl. Cloudy (Clear); Urine Urobilinogen Normal (Normal)
[2023-08-31 15:43] LABS: Bacteria 2+ /hpf (None Seen); Squamous Epithelial Cells - UA 0-5 SEEN /hpf (5-10)
[2023-08-31 15:44] LABS: Red Blood Cells-Urine 0-5 SEEN /hpf (0-5); White Blood Cells 5-10 SEEN /hpf (0-5)
[2023-08-31 15:51] LABS: PTHIN 225.4 pg/mL (18.4-80.1)
[2023-08-31 15:52] LABS: Vitamin D,25 Hydroxy 32.8 ng/mL
[2023-08-31 16:09] LABS: AST(SGOT) 69 U/L (15-37); Alanine Aminotransfer ALT/SGPT 59 U/L (13-56); Albumin, Serum 3.6 g/dL (3.2-5.0); Alkaline Phosphatase 92 U/L (45-117); Anion Gap 9 (5-15); BUN 8 mg/dL (7-18); BUN/Creat Ratio 7.2 RATIO (10-20); Calcium,Total 9.5 mg/dL (8.5-10.1); Chloride 105 mmol/L (98-107); Cholesterol 196 mg/dL (200); Creatinine, Serum 1.11 mg/dL (0.55-1.02); EST Glomerular Filtration Rate 51 mL/min (>60); Est Glom Filt Rate - Afr Amer 62 mL/min (>60); Globulin 3.5 g/dL (2.2-4.2); Glucose 100 mg/dL (74-106); High Density Lipoprotein 43 mg/dL; Magnesium 1.9 mg/dL (1.6-2.6); Phosphorus 2.6 mg/dL (2.5-4.9); Potassium 3.6 mmol/L (3.5-5.1); Protein, Total 7.1 g/dL (6.4-8.2); Sodium Level 140 mmol/L (136-145); Thyroid Stim Hormone (TSH) 2.38 uIU/mL (0.358-3.74); Triglycerides 184 mg/dL; Very Low Density Lipoprotein 37 mg/dL (5-40)
== END | disposition home or self-care (01) ==
LOC: MFPLAB 11:53
PROVIDERS: PCP Family Medicine; Visit Provider Family Medicine
DX: I25.10 Atherosclerotic heart disease of native coronary artery without angina pectoris (principal); I48.91 Unspecified atrial fibrillation; N18.30 Chronic kidney disease, stage 3 unspecified
CPT/HCPCS: 36415; 80053; 80061; 81001; 82306; 82570; 83735; 83970; 84100; 84156; 84443; 85025

== ENCOUNTER → 2023-10-04 | Outpatient (CLI) | payer MEDICARE, MEDICAID, SELFPAY ==
--- NOTE | 2023-10-04 07:43 | CT_ITS ---
STUDY: CT SOFT TISSUE NECK WITH CONTRAST REASON FOR EXAM: Female, 73 years old. Dysphagia, globus sensation RADIATION DOSAGE (If Supplied By Facility): CTDIvol = ( 16.25 ) mGy, DLP = ( 1006.83 ) mGycm TECHNIQUE: The patient was scanned in a multi-detector CT scanner. High resolution transaxial imaging was performed following intravenous administration of IV 75mL Isovue-370. Sagittal and coronal images were reconstructed. Individualized dose optimization techniques were used for this CT. COMPARISON: None. FINDINGS: Normal bilateral parotid glands. Normal bilateral application chemist spaces. Normal bilateral parapharyngeal spaces. Normal bilateral carotid spaces. Normal bilateral sublingual and submandibular glands and spaces. Normal visualized nasopharynx. Normal retropharyngeal space. Normal perivertebral space. Normal visualized bilateral faucial tonsils. The visualized tongue, tongue base and oropharynx are normal. The visualized cervical lymph nodes (levels I-) are within normal size limits, and maintain normal morphology. There is no demonstrated solid or cystic mass lesion. There is no abnormal contrast enhancement. Normal epiglottis, bilateral vallecula and hypopharynx. The pre-epiglottic and paraglottic adipose spaces are normal. Normal visualized bilateral piriform sinuses, aryepiglottic folds, vocal cords, and arytenoid-cricoid articulations. Normal subglottic trachea. Normal bilateral lobes of the thyroid gland. Normal visualized pulmonary apices. Atherosclerotic calcification of the aortic arch and origins of the major cervical vessels. Normal visualized paranasal sinuses. There is multilevel degenerative changes of the cervical spine. CT/Soft Tissue Neck WITH Contrast IMPRESSION: No acute abnormality is seen. Electronically Signed: Lane Marcus MD at 14:52 EDT ,
[2023-10-04 07:57] VITALS: BP 127/78; PULSE 62; RESP 16; O2SAT 98; BMI 31.6
[2023-10-04] MEDS: 0.9% Normal Saline (500mL Bag) 500 ML 1000 ML IV (08:05)
== END | disposition home or self-care (01) ==
LOC: CT 07:39
PROVIDERS: PCP Family Medicine; Referring Provider Family Medicine; Visit Provider Family Medicine
DX: R13.10 Dysphagia, unspecified (principal); R09.A2 Foreign body sensation, throat; N18.9 Chronic kidney disease, unspecified
CPT/HCPCS: 70491; J7040; Q9967

== ENCOUNTER 2023-10-23 22:52 | Emergency (ER) | payer MEDICARE, MEDICAID, SELFPAY ==
[2023-10-23 22:53] VITALS: BP 101/63; PULSE 86; RESP 20; TEMP 36.2; O2SAT 98; BMI 27.9
--- NOTE | 2023-10-23 23:04 | RAD_ITS ---
EXAM: XR THORACIC SPINE, 2 VIEWS CLINICAL INDICATION: pain/fall TECHNIQUE: Frontal and lateral views of the thoracic spine. COMPARISON: No relevant prior studies available. FINDINGS: VERTEBRAE: Unremarkable. Preserved vertebral body height. No fracture. No spondylolisthesis. Preservation of the normal thoracic kyphosis. No significant facet arthropathy. DISC SPACES: Degenerative changes of the intervertebral discs. RAD/Thoracic Spine 2 Views IMPRESSION: 1. No acute injuries identified involving the thoracic spine. 2. Degenerative changes. Electronically Signed: Francesco Malin MD at 0:05 EDT ,
--- NOTE | 2023-10-23 23:04 | RAD_ITS ---
EXAM: XR LUMBOSACRAL SPINE, 2 OR 3 VIEWS CLINICAL INDICATION: pain, fall TECHNIQUE: Frontal and lateral views of the lumbar spine and sacrum. COMPARISON: Plain film lumbar spine from 08/26/2021 FINDINGS: VERTEBRAE: L5 pars defects with grade 1 anterolisthesis of L5 on S1. Unchanged. Preserved vertebral body height. No fracture. Preservation of the normal lumbar lordosis. No significant facet arthropathy. DISC SPACES: Degenerative changes of the intervertebral discs. VASCULATURE: Atherosclerotic changes of the abdominal aorta. GASTROINTESTINAL TRACT: Unremarkable as visualized. Included bowel gas pattern is non-obstructive. RAD/Lumbar Spine 2 or 3 Views IMPRESSION: 1. No acute injuries identified involving the lumbar spine. 2. Degenerative changes. 3. L5 pars defects with grade 1 anterolisthesis of L5 on S1. Unchanged. Electronically Signed: Francesco Malin MD at 23:58 EDT ,
--- NOTE | 2023-10-23 23:10 | EX.ED.DYSGE1 ---
HPI History of Present Illness Chief Complaint: Fall Informant: patient and EMS Narrative Narrative: 73-year-old female presents by EMS for several reasons. She states the acute reason she is here is that 2 days ago she fell. She got up from a couch to walk to another room and while walking, she felt a pop in her back that made her fall to the floor. She has been having pain ever since. She has chronic pain in her low back, this is similar but worse. It has been persistent. She used to use tramadol which helped but she does not have any anymore. She is on warfarin and knows that she cannot take acetaminophen or ibuprofen so she has just been dealing with it. She was able to get up from the floor and get around, just hurts more to move. She has been having some tingling in both medial thighs and lower legs, she thinks that is new with her back pain since this fall. She does not have any weakness in her legs, bowel or bladder dysfunction, saddle anesthesia, or numbness anywhere else. She denies any other injury from the fall. Additionally she states since getting out of bed today she had intermittent vertigo every time she moves a certain way, so she has been taking care not to move quickly or roll out of bed whenever she gets out so she does not get vertigo and fall. She has not passed out. She has a history of having vertigo like this, states she was given medicine for but does not have any right now. [facility] Medical History Pacemaker malfunction Loss of hearing Wears glasses Wears dentures Post-menopausal Depression Diabetes Ambulates with cane Arthritis Low iron Anemia Back pain Syncope Gastric reflux Former smoker Asthma COPD (chronic obstructive pulmonary disease) Shortness of breath on exertion History of atrial fibrillation History of echocardiogram History of rheumatic fever Cardiology follow-up encounter Paroxysmal A-fib Sick sinus syndrome Presence of cardiac pacemaker Ischemic colitis Irritable bowel Restless legs High cholesterol History of stress test Pacemaker Acute colitis Acute blood loss anemia Presence of stent in coronary artery 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 Carotid artery disease Atherosclerosis of [place] coronary artery of [place] heart without angina pectoris Pacemaker Cerebrovascular disease Sick sinus syndrome with tachycardia HLD (hyperlipidemia) Home Medications ?Medication ?Instructions ?Recorded ?Last Taken ?Type aspirin 81 mg chewable tablet 81 mg PO DAILY@0800 health 08/18/18 05/22/23 History maintenance montelukast 10 mg tablet 10 mg PO QPM allergy 02/22/19 11/25/20 21:00 History albuterol sulfate 90 mcg/actuation 2 puff inhalation Q6H PRN sob 03/05/19 Unknown History aerosol inhaler (Ventolin HFA) tiotropium 2.5 mcg-olodaterol 2.5 2 puff inhalation DAILY breathing 03/05/19 11/25/20 09:00 History mcg/actuation mist for inhalation (Stiolto Respimat) cetirizine 10 mg capsule (All Day 10 mg PO DAILY allergies 10/13/20 11/25/20 09:00 History Allergy (cetirizine)) handicap placard #1 ea 10/13/20 Unknown Rx benzonatate 100 mg capsule 200 mg PO BID COPD 11/26/20 11/25/20 21:00 History nitroglycerin 0.4 mg sublingual 0.4 mg sublingual Q5-15M PRN Chest 07/22/21 Unknown Rx tablet Pain #25 tabs fesoterodine 4 mg tablet,extended 4 mg PO DAILY 02/23/22 Unknown History release 24 hr (Toviaz) warfarin 2.5 mg tablet 5 mg PO DAILY blood thinner #180 07/20/22 05/18/23 Rx tabs warfarin 5 mg tablet 5 mg PO .COMPLEX #90 tabs 07/27/22 05/18/23 Rx tizanidine 4 mg capsule (Zanaflex) 4 mg PO TID PRN muscle spasticity 08/25/22 Unknown History potassium chloride 10 mEq See Rx Instructions .Route 03/31/23 Unknown Rx tablet,extended release(part/cryst) .COMPLEX #60 tabs enalapril maleate 2.5 mg tablet 2.5 mg PO DAILY #90 tabs 06/29/23 Unknown Rx pantoprazole 40 mg tablet,delayed 40 mg PO DAILY stomach #90 tabs 06/29/23 Unknown Rx release metoprolol tartrate 25 mg tablet 12.5 mg PO DAILY 07/05/23 Unknown History pravastatin 80 mg tablet 80 mg PO QHS #90 tabs 07/08/23 Unknown Rx dicyclomine 20 mg tablet 20 mg PO TID #90 tabs 07/12/23 Unknown Rx isosorbide mononitrate 30 mg 30 mg PO DAILY #90 tabs 07/14/23 Unknown Rx tablet,extended release 24 hr meclizine 25 mg tablet 25 mg PO Q8H PRN PRN Dizziness #20 10/24/23 Unknown Rx tabs Allergy/AdvReac Type Severity Reaction Status Date / Time ciprofloxacin (From Cipro) Allergy Intermediate Itching Verified 10/04/23 07:51 atorvastatin calcium (From Allergy Hives Verified 10/04/23 07:51 Lipitor) gluten Allergy Food Verified 10/04/23 07:51 Allergy metoprolol succinate (From Allergy Rash Verified 10/04/23 07:51 Toprol XL) niacin (From Niaspan Allergy Rash Verified 10/04/23 07:51 Extended-Release) Penicillins Allergy Rash Verified 10/04/23 07:51 Sulfa (Sulfonamide Allergy Itching Verified 10/04/23 07:51 Antibiotics) regadenoson AdvReac Severe Anaphylaxis Verified 10/04/23 07:51 metronidazole AdvReac Intermediate lightheaded Verified 10/04/23 07:51 and ataxia Family History Mother CVA (cerebral vascular accident) CAD (coronary artery disease) Surgical History History of cardiac catheterization History of esophagogastroduodenoscopy (EGD) Status post placement of cardiac pacemaker History of total hysterectomy History of cholecystectomy History of left-sided carotid endarterectomy (~06/2006) Hx of CABG (~06/29/06) Social History household members: none Smoking Status: Former smoker alcohol intake: never substance use type: does not use ROS ROS ED Constitutional Constitutional ED: Denies chills or fever(s) Eyes Eyes: Denies change in vision or diplopia ENT ENT ED: Denies rhinorrhea or sore throat Cardiovascular Cardiovascular: Denies chest pain or palpitations Respiratory/Chest Respiratory/Chest: Denies cough or dyspnea Gastrointestinal Gastrointestinal: Denies abdominal pain, diarrhea, nausea or vomiting Genitourinary Genitourinary ED: Denies difficulty urinating, dysuria, hematuria or urinary incontinence Musculoskeletal Musculoskeletal: Reports back pain; Denies neck pain Integumentary Reports other Details: Burning in skin-chronic pain nothing new ; Denies abscess or rash Neurologic Neurologic: Reports paresthesias RLE and LLE; Denies headache(s) or weakness Psychiatric Psychiatric: Reports anxiety; Denies suicidal thoughts EXAM Physical Exam Const Vital Signs: 10/23/23 22:53 10/23/23 23:01 Temperature 97.1 F L Temperature Source Temporal Pulse Rate 86 Respiratory Rate 20 H Respiratory Effort Normal Respiratory Depth Normal Respiratory Pattern Normal Blood Pressure 101/63 Blood Pressure Mean 75 Pulse Ox 98 Oxygen Delivery Method Room Air Room Air Positive well nourished and well developed General Appearance ED: well developed and NAD HEENT Reports moist mucous membranes normocephalic and atraumatic Eyes PERRL and EOMs intact bilaterally Neck full ROM and supple Resp normal respiratory effort and clear to auscultation bilaterally Cardio regular rate, regular rhythm and no murmurs GI non-tender and non-distended Auscultation: normoactive bowel sounds Palpation: soft Back/Spine no CVA tenderness Back/Spine Narrative: Tender in the lower thoracic midline, around T9 or 10, less tender throughout the lumbar midline. No other areas of significant tenderness. No limitations with ranging. General Back: other FROM w/o apparent discomfort/limitation Cervical Spine: Negative for cervical spine tenderness Extremity normal to inspection Extremity Narrative: Full range of motion throughout all 4 extremities all joints without any pain or limitation. General Extremety ED: Negative for edema, pulses abnormal or tenderness General Extremity: Negative for edema or pulses abnormal Neuro oriented x3, CN's II-XII intact bilaterally and no sensory deficits noted Neuro Narrative: Normal DTRs. Toes downgoing bilaterally. No clonus bilaterally. Sensorium / Orientation: awake and alert Motor Exam: strength 5/5 throughout Psych Psych Narrative: Patient anchoring on issues with Dr. Cobos and needs to be redirected multiple times Mood & Affect: anxious Skin no rashes or lesions noted and no wounds MDM MDM MDM Narrative Medical decision making narrative: Obtained screening x-rays of the thoracic and lumbar spine, 2 views and 3 views respectively, both negative for acute fracture my interpretation, and in the meantime gave her meclizine and a dose of tramadol. On reevaluation she is feeling much better on all accounts. I got her up out of bed, she was able to walk and turn her head and does not feel dizzy at all anymore. Her vertigo is consistent with BPPV/peripheral vertigo, I do not think she needs further testing for that. Furthermore her blood pressures are normal, supportive of this rather than a central cause. I did obtain her INR because it has not been checked in a while and she has a home INR device that she states recently broke so she could check it. It is 5.7. She is not bleeding from anywhere. She does not have any exam findings of cord compression, she is able to get up and walk without any pain in her back that is a limiting, so I think the chances of an epidural hematoma here are extremely low. I advised her that if the tingling is new, which is subjective and not objectively abnormal on my exam, and does not resolve she should follow-up for further evaluation as she may need advanced imaging of her spine but that does not need to be emergent at this time. Lab Data Attestation: I reviewed the patient's lab results. Labs: Laboratory Results - last 24 hr 10/23/23 23:04 PT 50.8 H INR 5.7 H* Radiography Diagnostic Testing: Clinical Impression(s) from Imaging Studies Lumbar Spine X-Ray 10/23/23 23:04 IMPRESSION: 1. No acute injuries identified involving the lumbar spine. 2. Degenerative changes. 3. L5 pars defects with grade 1 anterolisthesis of L5 on S1. Unchanged. Electronically Signed: Francesco Malin MD at 23:58 EDT , Thoracic Spine X-Ray 10/23/23 23:04 IMPRESSION: 1. No acute injuries identified involving the thoracic spine. 2. Degenerative changes. Electronically Signed: Francesco Malin MD at 0:05 EDT , Discharge Plan Triage Chief Complaint: Fall Other Complaint: Back Dizziness ED Provider: Dayday Valdez Dx/Rx/DC Orders Clinical Impression: Acute exacerbation of chronic low back pain, Accidental fall, Episodic peripheral vertigo, Supratherapeutic INR Instructions: ED Back Pain (Acute or Chronic), ED BPV Vertigo Prescriptions: Continued montelukast 10 mg tablet 10 mg PO QPM All Day Allergy (cetirizine) 10 mg capsule 10 mg PO DAILY (DME) handicap placard See Rx Instructions .Route .MEDSUPPLY Qty: 1 0RF Rx Instructions: As directed -Life time exp. 5 years Dx: generalized debility fesoterodine [Toviaz] 4 mg tablet extended release 24 hr 4 mg PO DAILY tizanidine [Zanaflex] 4 mg capsule 4 mg PO TID PRN (Reason: muscle spasticity) dicyclomine 20 mg tablet 20 mg PO TID Qty: 90 3RF metoprolol tartrate 25 mg tablet 12.5 mg PO DAILY aspirin 81 MG tablet,chewable 81 mg PO DAILY@0800 benzonatate 100 mg capsule 200 mg PO BID Patient Comments: TAKE 1 CAPSULE BY MOUTH THREE TIMES DAILY NEEDED FOR PERSISTENT COUGH meclizine 25 mg tablet 25 mg PO Q8H PRN PRN (Reason: Dizziness) Qty: 20 0RF albuterol sulfate [Ventolin HFA] 90 mcg/actuation HFA aerosol inhaler 2 puff INHALATION Q6H PRN (Reason: sob) Stiolto Respimat 2.5-2.5 mcg/actuation mist 2 puff INHALATION DAILY nitroglycerin 0.4 mg tablet, sublingual 0.4 mg SUBLINGUAL Q5-15M PRN (Reason: Chest Pain) Qty: 25 3RF Rx Instructions: until response; do not exceed 3 doses per episode potassium chloride 10 mEq tablet,ER particles/crystals See Rx Instructions .ROUTE .COMPLEX Qty: 60 10RF Dose Instruction: TAKE TWO (2) TABLETS BY MOUTH DAILY Rx Instructions: TAKE TWO (2) TABLETS BY MOUTH DAILY enalapril maleate 2.5 mg tablet 2.5 mg PO DAILY Qty: 90 3RF pantoprazole 40 mg tablet,delayed release (DR/EC) 40 mg PO DAILY Qty: 90 3RF pravastatin 80 mg tablet 80 mg PO QHS Qty: 90 3RF isosorbide mononitrate 30 mg tablet extended release 24 hr 30 mg PO DAILY Qty: 90 3RF Held warfarin 2.5 mg tablet 5 mg PO DAILY Qty: 180 3RF Hold Instructions: Resume on 08/22/24. Protocol: Dose Management Condition: Tuesday Dose/Route: 0 mg Instruction: 0 tablets Condition: Tuesday Dose/Route: 0 mg Instruction: 0 tablets Condition: Tuesday Dose/Route: 2.5 mg Instruction: 1 x 2.5 mg tablet Condition: Tuesday Dose/Route: 2.5 mg Instruction: 1 x 2.5 mg tablet Condition: Dose/Route: 2.5 mg Instruction: 1 x 2.5 mg tablet Condition: Tuesday Dose/Route: 2.5 mg Instruction: 1 x 2.5 mg tablet Condition: Tuesday Dose/Route: 0 mg Instruction: 0 tablets Protocol Text: Adjustment Start Date: Tuesday10/14/23 INR Value: 5.0 INR Date: 10/14/23 Recheck Date: 10/18/23 Rx Instructions: 2.5 mg orally three days a week, take 2 tablets to = 5 mg 4 days a week, or as directed; dose changes often warfarin 5 mg tablet 5 mg PO .COMPLEX Qty: 90 3RF Hold Instructions: Resume on 10/28/23. Protocol: Dose Management Condition: Tuesday Dose/Route: 0 mg Instruction: 0 tablets Condition: Tuesday Dose/Route: 0 mg Instruction: 0 tablets Condition: Tuesday Dose/Route: 2.5 mg Instruction: 1 x 2.5 mg tablet Condition: Tuesday Dose/Route: 2.5 mg Instruction: 1 x 2.5 mg tablet Condition: Dose/Route: 2.5 mg Instruction: 1 x 2.5 mg tablet Condition: Tuesday Dose/Route: 2.5 mg Instruction: 1 x 2.5 mg tablet Condition: Tuesday Dose/Route: 0 mg Instruction: 0 tablets Protocol Text: Adjustment Start Date: Tuesday10/14/23 INR Value: 5.0 INR Date: 10/14/23 Recheck Date: 10/18/23 Rx Instructions: 5 mg orally take one tab bymouth every Tue Sat Sun Tue and then take a 2.5 mg tab the other days or as directed; Discontinued dicyclomine 10 mg capsule 10 mg PO BID Qty: 60 2RF Primary Care Provider: Erasmo Pierre Referrals: Erasmo Pierre MD [Primary Care Provider] - Print Language: Burundian Disposition Disposition: Home, Self Care
[2023-10-23] MEDS: Meclizine HCl 25 MG Tablet PO (23:16)
[2023-10-23] MEDS: traMADol 50 MG Tablet PO (23:16)
[2023-10-23 23:52] LABS: Prothrombin Time (Protime)PT. 50.8 SECONDS (11.7-14.9)
[2023-10-24 00:05] LABS: International Normalized Ratio 5.7
[2023-10-24 01:00] VITALS: BP 116/57; PULSE 32; RESP 18; TEMP 36.1; O2SAT 98
== END 2023-10-24 01:38 | disposition home or self-care (01) ==
PROVIDERS: Emergency Provider Emergency Medicine; PCP Family Medicine; Visit Provider Emergency Medicine
DX: M54.50 Low back pain, unspecified (principal); J44.9 Chronic obstructive pulmonary disease, unspecified; E11.9 Type 2 diabetes mellitus without complications; G89.29 Other chronic pain; E78.00 Pure hypercholesterolemia, unspecified; Z87.891 Personal history of nicotine dependence; I10 Essential (primary) hypertension; R79.1 Abnormal coagulation profile; I25.10 Atherosclerotic heart disease of native coronary artery without angina pectoris; H81.399 Other peripheral vertigo, unspecified ear; W19.XXXA Unspecified fall, initial encounter; Z79.01 Long term (current) use of anticoagulants; F41.9 Anxiety disorder, unspecified; R20.2 Paresthesia of skin
CPT/HCPCS: 72070; 72100; 85610; 99285; A4216

== ENCOUNTER 2023-11-17 19:41 | Emergency (ER) | payer MEDICARE, MEDICAID, SELFPAY ==
[2023-11-17 19:42] VITALS: BP 127/94; PULSE 85; RESP 16; TEMP 35.8; O2SAT 100
--- NOTE | 2023-11-17 21:01 | EX.ED.DYSGE1 ---
HPI History of Present Illness Chief Complaint: Numb/Ting Informant: patient Narrative Narrative: 73-year-old female presenting to the emergency room for paresthesias. Patient states that for over a month she has had numbness of the her legs. By numbness she means [id number]. She states that it began in her feet and went up to her calf region. She states that now she feels it up to her hips she notes tingling in her bilateral hands and a generalized burning pain of her skin. She denies any rashes. She states her doctor started a new medicine but she does not recall what but it made her very thirsty and she states that despite drinking lots of fluids she feels dry. She notes frequent urination but feels that it is related to the drinking of fluid and denies any dysuria. She states she has a history of peripheral vascular disease and she called her vascular surgeon who advised her to come to emergency. She has no known autoimmune diseases per her. She is reportedly on Coumadin. This is for paroxysmal A-fib. She denies any weakness of the extremities. She denies any recent insect or tick bites. No recent immunizations. [facility] Medical History Pacemaker malfunction Loss of hearing Wears glasses Wears dentures Post-menopausal Depression Diabetes Ambulates with cane Arthritis Low iron Anemia Back pain Syncope Gastric reflux Former smoker Asthma COPD (chronic obstructive pulmonary disease) Shortness of breath on exertion History of atrial fibrillation History of echocardiogram History of rheumatic fever Cardiology follow-up encounter Paroxysmal A-fib Sick sinus syndrome Presence of cardiac pacemaker Ischemic colitis Irritable bowel Restless legs High cholesterol History of stress test Pacemaker Acute colitis Acute blood loss anemia Presence of stent in coronary artery Essential hypertension half-way current use of anticoagulant Carotid artery disease Atherosclerosis of [place] coronary artery of [place] heart without angina pectoris Pacemaker Cerebrovascular disease Sick sinus syndrome with tachycardia HLD (hyperlipidemia) Home Medications ?Medication ?Instructions ?Recorded ?Last Taken ?Type aspirin 81 mg chewable tablet 81 mg PO DAILY@0800 health 08/18/18 05/22/23 History maintenance montelukast 10 mg tablet 10 mg PO QPM allergy 02/22/19 11/25/20 21:00 History handicap placard #1 ea 10/13/20 Unknown Rx benzonatate 100 mg capsule 200 mg PO BID COPD 11/26/20 11/25/20 21:00 History nitroglycerin 0.4 mg sublingual 0.4 mg sublingual Q5-15M PRN Chest 07/22/21 Unknown Rx tablet Pain #25 tabs fesoterodine 4 mg tablet,extended 4 mg PO DAILY 02/23/22 Unknown History release 24 hr (Toviaz) warfarin 2.5 mg tablet 5 mg PO DAILY blood thinner #180 07/20/22 05/18/23 Rx tabs warfarin 5 mg tablet 5 mg PO .COMPLEX #90 tabs 07/27/22 05/18/23 Rx potassium chloride 10 mEq See Rx Instructions .Route 03/31/23 Unknown Rx tablet,extended release(part/cryst) .COMPLEX #60 tabs enalapril maleate 2.5 mg tablet 2.5 mg PO DAILY #90 tabs 06/29/23 Unknown Rx pantoprazole 40 mg tablet,delayed 40 mg PO DAILY stomach #90 tabs 06/29/23 Unknown Rx release metoprolol tartrate 25 mg tablet 12.5 mg PO DAILY 07/05/23 Unknown History pravastatin 80 mg tablet 80 mg PO QHS #90 tabs 07/08/23 Unknown Rx isosorbide mononitrate 30 mg 30 mg PO DAILY #90 tabs 07/14/23 Unknown Rx tablet,extended release 24 hr meclizine 25 mg tablet 25 mg PO Q8H PRN PRN Dizziness #20 10/24/23 Unknown Rx tabs dicyclomine 20 mg tablet 20 mg PO TID #90 tabs 11/11/23 Unknown Rx cetirizine 10 mg tablet (Allergy 10 mg PO DAILY 11/17/23 Unknown History Relief (cetirizine)) fluconazole 100 mg tablet 100 mg PO DAILY 11/17/23 Unknown History magnesium 250 mg tablet 250 mg PO BID 5 days #10 tabs 11/17/23 Unknown Rx potassium chloride 40 mEq/15 mL 40 meq (15 mL) PO BID 5 days #150 11/17/23 Unknown Rx oral liquid mL Allergy/AdvReac Type Severity Reaction Status Date / Time ciprofloxacin (From Cipro) Allergy Intermediate Itching Verified 11/17/23 19:44 atorvastatin calcium (From Allergy Hives Verified 11/17/23 19:44 Lipitor) gluten Allergy Food Verified 11/17/23 19:44 Allergy metoprolol succinate (From Allergy Rash Verified 11/17/23 19:44 Toprol XL) niacin (From [place] Allergy Rash Verified 11/17/23 19:44 Extended-Release) Penicillins Allergy Rash Verified 11/17/23 19:44 Sulfa (Sulfonamide Allergy Itching Verified 11/17/23 19:44 Antibiotics) regadenoson AdvReac Severe Anaphylaxis Verified 11/17/23 19:44 metronidazole AdvReac Intermediate lightheaded Verified 11/17/23 19:44 and ataxia Family History Mother CVA (cerebral vascular accident) CAD (coronary artery disease) Surgical History History of cardiac catheterization History of esophagogastroduodenoscopy (EGD) Status post placement of cardiac pacemaker History of total hysterectomy History of cholecystectomy History of left-sided carotid endarterectomy (~06/2006) Hx of CABG (~06/29/06) Social History household members: none Smoking Status: Former smoker alcohol intake: never substance use type: does not use ROS ROS ED Constitutional Constitutional ED: Denies chills, fever(s) or weight loss Eyes Eyes: Denies change in vision or diplopia ENT ENT ED: Denies ear pain, rhinorrhea or sore throat Cardiovascular Cardiovascular: Denies chest pain, orthopnea, palpitations or racing heartbeat Respiratory/Chest Respiratory/Chest: Denies cough, dyspnea or orthopnea Gastrointestinal Gastrointestinal: Denies abdominal pain, diarrhea, nausea or vomiting Genitourinary Genitourinary ED: Denies dysuria, hematuria or urinary frequency Musculoskeletal Musculoskeletal: Denies arthralgias or myalgias Integumentary Denies abscess or rash Neurologic Neurologic: Reports paresthesias; Denies headache(s) or weakness Psychiatric Psychiatric: Denies anxiety, depression, suicidal ideation or suicidal thoughts Endocrine Endocrinology: Denies polydipsia, polyphagia or polyuria Allergic/Immunologic Allergic/Immunologic ED: Denies mouth swelling, tongue swelling or urticaria EXAM Physical Exam Const Vital Signs: 11/17/23 19:42 11/17/23 20:52 11/17/23 21:42 Temperature 96.4 F L Temperature Source Temporal Pulse Rate 85 60 Respiratory Rate 16 18 Respiratory Effort Normal Respiratory Pattern Normal Blood Pressure 127/94 H 139/69 H Blood Pressure Mean 105 92 Pulse Ox 100 99 Oxygen Delivery Method Room Air Positive well nourished and well developed General Appearance ED: well developed HEENT Reports normocephalic, head/scalp atraumatic and moist mucous membranes Eyes PERRL and EOMs intact bilaterally Neck no lymphadenopathy, supple and no JVD Resp normal respiratory effort and clear to auscultation bilaterally Cardio regular rate, regular rhythm and no murmurs GI normal to inspection, nondistended, normoactive bowel sounds and non-tender Palpation: soft Back/Spine no CVA tenderness and normal ROM Extremity normal to inspection General Extremety ED: Negative for edema General Extremity: Negative for edema Neuro oriented x3, CN's II-XII intact bilaterally and no sensory deficits noted Neuro Narrative: Patient has a normal patellar reflex bilaterally as well as Achilles reflex. Sensorium / Orientation: alert; Negative for orientation impaired Sensory Exam: No sensory level loss detected Motor Exam: strength 5/5 throughout; Negative for general weakness Psych mental status grossly normal Mood & Affect: Negative for depressed or tearful Skin no rashes or lesions noted and no wounds MDM MDM MDM Narrative Medical decision making narrative: Differential diagnosis includes but not limited to neuropathy electrolyte abnormalities subtherapeutic and supratherapeutic INR Guillain-Pacheco? peripheral vascular disease CBC is rather unremarkable. Potassium noted be 2.5 calcium is 9 glucose 120 magnesium 1.5. EKG is normal sinus rhythm ventricular rate of 62 bpm. This was compared to EKG dated 05 July 2023. Patient received oral and IV potassium replacement as well as magnesium IV. She be discharged home with supplementation. She tells me she is able to check her INR at home. She states she has a schedule for what she needs to do should her INR be low. Would recommend follow-up next week for recheck of electrolytes and symptoms. History & Record Review Discussion w/independent historian: Patient Additional record(s) reviewed:: Prior labs Lab Data Attestation: I reviewed the patient's lab results. Labs: Laboratory Results - last 24 hr 11/17/23 21:06 WBC 8.0 RBC 4.83 Hgb 14.5 Hct 44.3 MCV 91.7 MCH 30.0 MCHC 32.7 RDW Std Deviation 47.1 H RDW Coeff of Neymar 13.7 Plt Count 176 MPV 11.7 Immature Gran % (Auto) 0.300 Neut % (Auto) 56.4 Lymph % (Auto) 30.7 Coke % (Auto) 9.6 Eos % (Auto) 2.5 Baso % (Auto) 0.5 Absolute Neuts (auto) 4.5 Absolute Lymphs (auto) 2.45 Nucleated RBC % 0 PT 15.4 H INR 1.2 Sodium 137 Potassium 2.5 L* Chloride 101 Carbon Dioxide 26.0 Anion Gap 10 BUN 7 Creatinine 1.04 H Est GFR (MDRD) Af Amer 67 Est GFR (MDRD) Non-Af 55 L BUN/Creatinine Ratio 6.7 L Glucose 120 H Calcium 9.0 Magnesium 1.5 L Total Bilirubin 0.90 Direct Bilirubin 0.37 H AST 42 H ALT 30 Alkaline Phosphatase 73 Total Protein 6.5 Albumin 3.2 Globulin 3.3 EKG Initial EKG: Attestation: I personally reviewed and interpreted this EKG as follows: Comments: Normal sinus rhythm ventricular to [address] and T wave abnormalities. Prolonged QT compared to prior Discharge Plan Triage Chief Complaint: Numb/Ting ED Provider: Sumeet Vo Dx/Rx/DC Orders Clinical Impression: Paresthesias, Acute hypokalemia, Hypomagnesemia, Subtherapeutic international normalized ratio (INR) Instructions: Hypomagnesemia Dc, ED Hypokalemia, ED Paraesthesias Prescriptions: New potassium chloride 40 mEq/15 mL liquid 40 meq PO BID 5 Days Qty: 150 0RF magnesium 250 mg tablet 250 mg PO BID 5 Days Qty: 10 0RF No Action montelukast 10 mg tablet 10 mg PO QPM (DME) handicap placard See Rx Instructions .Route .MEDSUPPLY Qty: 1 0RF Rx Instructions: As directed -Life time exp. 5 years Dx: generalized debility fesoterodine [Toviaz] 4 mg tablet extended release 24 hr 4 mg PO DAILY metoprolol tartrate 25 mg tablet 12.5 mg PO DAILY aspirin 81 MG tablet,chewable 81 mg PO DAILY@0800 benzonatate 100 mg capsule 200 mg PO BID Patient Comments: TAKE 1 CAPSULE BY MOUTH THREE TIMES DAILY NEEDED FOR PERSISTENT COUGH fluconazole 100 mg tablet 100 mg PO DAILY cetirizine [Allergy Relief (cetirizine)] 10 mg tablet 10 mg PO DAILY meclizine 25 mg tablet 25 mg PO Q8H PRN PRN (Reason: Dizziness) Qty: 20 0RF nitroglycerin 0.4 mg tablet, sublingual 0.4 mg SUBLINGUAL Q5-15M PRN (Reason: Chest Pain) Qty: 25 3RF Rx Instructions: until response; do not exceed 3 doses per episode warfarin 2.5 mg tablet 5 mg PO DAILY Qty: 180 3RF Protocol: Dose Management Condition: Tuesday Dose/Route: 1.25 mg Instruction: 0.5 x 2.5 mg tablets Condition: Tuesday Dose/Route: 1.25 mg Instruction: 0.5 x 2.5 mg tablets Condition: Tuesday Dose/Route: 1.25 mg Instruction: 0.5 x 2.5 mg tablets Condition: Tuesday Dose/Route: 1.25 mg Instruction: 0.5 x 2.5 mg tablets Condition: Dose/Route: 1.25 mg Instruction: 0.5 x 2.5 mg tablets Condition: Tuesday Dose/Route: 1.25 mg Instruction: 0.5 x 2.5 mg tablets Condition: Tuesday Dose/Route: 1.25 mg Instruction: 0.5 x 2.5 mg tablets Protocol Text: Adjustment Start Date: Tuesday10/28/23 INR Value: 2.4 INR Date: 10/28/23 Recheck Date: 11/04/23 Rx Instructions: 2.5 mg orally three days a week, take 2 tablets to = 5 mg 4 days a week, or as directed; dose changes often warfarin 5 mg tablet 5 mg PO .COMPLEX Qty: 90 3RF Protocol: Dose Management Condition: Tuesday Dose/Route: 1.25 mg Instruction: 0.5 x 2.5 mg tablets Condition: Tuesday Dose/Route: 1.25 mg Instruction: 0.5 x 2.5 mg tablets Condition: Tuesday Dose/Route: 1.25 mg Instruction: 0.5 x 2.5 mg tablets Condition: Tuesday Dose/Route: 1.25 mg Instruction: 0.5 x 2.5 mg tablets Condition: Dose/Route: 1.25 mg Instruction: 0.5 x 2.5 mg tablets Condition: Tuesday Dose/Route: 1.25 mg Instruction: 0.5 x 2.5 mg tablets Condition: Tuesday Dose/Route: 1.25 mg Instruction: 0.5 x 2.5 mg tablets Protocol Text: Adjustment Start Date: Tuesday10/28/23 INR Value: 2.4 INR Date: 10/28/23 Recheck Date: 11/04/23 Rx Instructions: 5 mg orally take one tab bymouth every Tue Sat Sun Mon and then take a 2.5 mg tab the other days or as directed; potassium chloride 10 mEq tablet,ER particles/crystals See Rx Instructions .ROUTE .COMPLEX Qty: 60 10RF Dose Instruction: TAKE TWO (2) TABLETS BY MOUTH DAILY Rx Instructions: TAKE TWO (2) TABLETS BY MOUTH DAILY enalapril maleate 2.5 mg tablet 2.5 mg PO DAILY Qty: 90 3RF pantoprazole 40 mg tablet,delayed release (DR/EC) 40 mg PO DAILY Qty: 90 3RF pravastatin 80 mg tablet 80 mg PO QHS Qty: 90 3RF isosorbide mononitrate 30 mg tablet extended release 24 hr 30 mg PO DAILY Qty: 90 3RF dicyclomine 20 mg tablet 20 mg PO TID Qty: 90 3RF Primary Care Provider: Erasmo Pierre Referrals: Erasmo Pierre MD [Primary Care Provider] - 5-7 Days (For recheck of potassium and magnesium levels) Activity Restrictions/Additional Instructions: As discussed your Coumadin level (warfarin) was 1.2 today. I do recommend at least doubling your dose over the next couple days and rechecking your Coumadin level at home to try to get you into the therapeutic range Your potassium was 2.5 today and your magnesium 1.5. These may be contributing to your symptomology. Your electrolytes will need to be replaced over the next several days and I would recommend having them rechecked next week. Print Language: [place] Disposition Disposition: Home, Self Care
[2023-11-17] MEDS: 0.9% Normal Saline (1000mL) 1,000 ML 999 ML IV (21:09)
[2023-11-17 21:20] LABS: Absolute Lymphocyte Count 2.45 X10^3/uL (0.83-4.51); Absolute Neutrophil Count 4.5 X10^3/uL (2.0-7.7); Basophil# 0.04 X10^3/uL; Basophil% 0.5 % (0-1); Eosinophils% 2.5 % (0-5); Hematocrit 44.3 % (37-47); Hemoglobin 14.5 g/dL (12.0-15.0); Lymphocyte # 2.45 X10^3/ul (0.83-4.51); Lymphocyte % 30.7 % (19-41); Mean Corp Hgb Conc 32.7 g/dL (32-36); Mean Corpuscular Volume 91.7 fL (81-99); Mean Platelet Vol. 11.7 fl (6.2-12.0); Monocyte# 0.77 X10^3/uL; Monocyte% 9.6 % (0-10); NRBC Flagged by Analyzer 0 % (0-5); Neutrophil # 4.51 X10^3/uL (2.7-7.7); Neutrophil % 56.4 % (47-70); Platelet Count 176 K/mm3 (150-450); RBC Distribution Width CV 13.7 % (11.6-14.6); RBC Distribution Width SD 47.1 fl (35.1-43.9); Red Blood Count 4.83 M/mm3 (4.2-5.4)
[2023-11-17 21:34] LABS: International Normalized Ratio 1.2; Prothrombin Time (Protime)PT. 15.4 SECONDS (11.7-14.9)
[2023-11-17 21:42] VITALS: BP 139/69; PULSE 60; RESP 18; O2SAT 99
[2023-11-17 22:17] LABS: AST(SGOT) 42 U/L (15-37); Alanine Aminotransfer ALT/SGPT 30 U/L (13-56); Albumin, Serum 3.2 g/dL (3.2-5.0); Alkaline Phosphatase 73 U/L (45-117); Anion Gap 10 (5-15); BUN 7 mg/dL (7-18); BUN/Creat Ratio 6.7 RATIO (10-20); Bilirubin, Direct 0.37 mg/dL (0.00-0.30); Chloride 101 mmol/L (98-107); Creatinine, Serum 1.04 mg/dL (0.55-1.02); EST Glomerular Filtration Rate 55 mL/min (>60); Est Glom Filt Rate - Afr Amer 67 mL/min (>60); Globulin 3.3 g/dL (2.2-4.2); Glucose 120 mg/dL (74-106); Magnesium 1.5 mg/dL (1.6-2.6); Potassium 2.5 mmol/L (3.5-5.1); Protein, Total 6.5 g/dL (6.4-8.2); Sodium Level 137 mmol/L (136-145)
--- NOTE | 2023-11-17 22:21 | EKG12_ITS ---
Test Reason : DYSRHYTHMIA Blood Pressure : / mmHG Vent. Rate : 062 BPM Atrial Rate : 062 BPM P-R Int : 190 ms QRS Dur : 072 ms QT Int : 476 ms P-R-T Axes : 030 008 049 degrees QTc Int : 483 ms Normal sinus rhythm Nonspecific ST and T wave abnormality Prolonged QT Abnormal ECG Confirmed by Eder Ortiz ([id number]), editorial assistant DOMITILA GONZALEZ ([id number]) on 11/21/2023 9:56:14 AM Referred By: Sumeet Vo Confirmed By:Eder Ortiz
[2023-11-17] MEDS: Potassium Chloride Oral Tablet 20 MEQ 40 MEQ PO (22:29)
[2023-11-17] MEDS: Potassium Chloride 10mEq/100mL 10 MEQ/100 ML IV.SOLN. 100 MEQ IV BOLUS ×2 (22:46→23:53)
[2023-11-17] MEDS: Magnesium Sulfate 2 GM in Dextrose 5%-Water (100mL Bag) 100 ML IV (22:46)
[2023-11-17 23:00] VITALS: BP 165/82; PULSE 65; RESP 17; O2SAT 94
[2023-11-18 01:00] VITALS: BP 165/82; PULSE 72; RESP 16; TEMP 36.6; O2SAT 97
== END 2023-11-18 01:02 | disposition home or self-care (01) ==
PROVIDERS: Emergency Provider Emergency Medicine; PCP Family Medicine; Referring Provider Emergency Medicine; Visit Provider Emergency Medicine
DX: R20.2 Paresthesia of skin (principal); J44.9 Chronic obstructive pulmonary disease, unspecified; I48.0 Paroxysmal atrial fibrillation; E11.9 Type 2 diabetes mellitus without complications; E87.6 Hypokalemia; E78.00 Pure hypercholesterolemia, unspecified; R35.0 Frequency of micturition; Z87.891 Personal history of nicotine dependence; I10 Essential (primary) hypertension; I25.10 Atherosclerotic heart disease of native coronary artery without angina pectoris; E83.42 Hypomagnesemia; Z79.01 Long term (current) use of anticoagulants; R20.0 Anesthesia of skin; Z79.899 Other long term (current) drug therapy
CPT/HCPCS: 80048; 80076; 83735; 85025; 85610; 93005; 96361; 96365; 96366; 96368; 99285; J7030; A4216

== ENCOUNTER 2023-12-09 10:27 | Observation (INO) | payer MEDICARE, MEDICAID, SELFPAY ==
[2023-12-09 10:28] VITALS: BP 140/79; PULSE 80; RESP 18; TEMP 36.4; O2SAT 97; BMI 27.1
--- NOTE | 2023-12-09 10:40 | RAD_ITS ---
STUDY: X-RAY - LEFT SHOULDER REASON FOR EXAM: Female, 73 years old. Fall TECHNIQUE: 4 view(s) of the shoulder. COMPARISON: None. FINDINGS: Normal glenohumeral articulation. There is degenerative arthrosis of the acromioclavicular joint without inferior osseous spur formation. Normal acromion. Normal humeral head and visualized proximal humerus. The soft tissue structures are unremarkable. There is pacemaker device on the left. There are sternotomy wires. There is no demonstrated fracture. Normal visualized pulmonary apex. RAD/Shoulder min 2 Views IMPRESSION: No fracture seen. Electronically Signed: Dayday Rothman MD at 11:27 EDT ,
--- NOTE | 2023-12-09 11:31 | EKG12_ITS ---
Test Reason : FALL Blood Pressure : / mmHG Vent. Rate : 073 BPM Atrial Rate : 073 BPM P-R Int : 160 ms QRS Dur : 064 ms QT Int : 430 ms P-R-T Axes : 029 -26 079 degrees QTc Int : 473 ms Normal sinus rhythm Nonspecific ST abnormality Abnormal ECG Confirmed by STEVE MARIN, RADHA ([id number]), editor trade journal TAMY COLMENARES ([id number]) on 12/13/2023 9:09:10 AM Referred By: Confirmed By:RADHA WILSON MD
[2023-12-09 12:05] LABS: Absolute Lymphocyte Count 1.87 X10^3/uL (0.83-4.51); Absolute Neutrophil Count 7.5 X10^3/uL (2.0-7.7); Basophil# 0.05 X10^3/uL; Basophil% 0.5 % (0-1); Eosinophils% 2.8 % (0-5); Hematocrit 44.9 % (37-47); Hemoglobin 14.4 g/dL (12.0-15.0); Lymphocyte # 1.87 X10^3/ul (0.83-4.51); Lymphocyte % 17.5 % (19-41); Mean Corp Hgb Conc 32.1 g/dL (32-36); Mean Corpuscular Hgb 30.2 pg (27.0-32.0); Mean Corpuscular Volume 94.1 fL (81-99); Monocyte# 0.99 X10^3/uL; Monocyte% 9.3 % (0-10); NRBC Flagged by Analyzer 0 % (0-5); Neutrophil # 7.45 X10^3/uL (2.7-7.7); Neutrophil % 69.7 % (47-70); POSITIVE MORPHOLOGY YES; Platelet Count 184 K/mm3 (150-450); RBC Distribution Width CV 13.8 % (11.6-14.6); RBC Distribution Width SD 47.7 fl (35.1-43.9); Red Blood Count 4.77 M/mm3 (4.2-5.4); White Blood Count 10.7 K/mm3 (4.4-11.0)
--- NOTE | 2023-12-09 12:11 | CT_ITS ---
STUDY: CT BRAIN WITHOUT CONTRAST REASON FOR EXAM: Female, 73 years old. Fall RADIATION DOSAGE (If Supplied By Facility): CTDIvol = ( 44.99 ) mGy, DLP = ( 779.24 ) mGycm TECHNIQUE: Transaxial CT imaging of the brain was performed without administration of intravenous contrast material. Individualized dose optimization techniques were used for this CT. COMPARISON: May 07, 2021 FINDINGS: Normal soft tissue structures. Normal calvarium. There is mild cerebral atrophy with widening of the extra-axial spaces and ventricular dilatation. There are areas of decreased attenuation within the white matter tracts of the supratentorial brain, consistent with microvascular disease changes. Normal basal ganglia and thalami. Normal brainstem. There is stable calcification of the left cerebellum. There is no intracranial hemorrhage. There are no findings of an acute ischemic infarction. Normal visualized paranasal sinuses. CT/Brain/Head without Contrast IMPRESSION: Chronic involutional changes of the brain. Electronically Signed: Dayday Rothman MD at 13:11 EDT ,
[2023-12-09 12:26] LABS: AST(SGOT) 35 U/L (15-37); Alanine Aminotransfer ALT/SGPT 24 U/L (13-56); Albumin, Serum 3.3 g/dL (3.2-5.0); Alkaline Phosphatase 80 U/L (45-117); Anion Gap 5 (5-15); BUN 11 mg/dL (7-18); BUN/Creat Ratio 11.9 RATIO (10-20); Calcium,Total 9.2 mg/dL (8.5-10.1); Chloride 106 mmol/L (98-107); Creatinine, Serum 0.93 mg/dL (0.55-1.02); EST Glomerular Filtration Rate 63 mL/min (>60); Est Glom Filt Rate - Afr Amer 76 mL/min (>60); Estimated Creatinine Clearance 50.42 ml/min; Globulin 3.3 g/dL (2.2-4.2); Glucose 111 mg/dL (74-106); Lipase 47 U/L (13-75); Magnesium 2.1 mg/dL (1.6-2.6); Potassium 3.6 mmol/L (3.5-5.1); Protein, Total 6.6 g/dL (6.4-8.2); Sodium Level 138 mmol/L (136-145); Troponin-I HS 24 pg/mL (3.0-54.0)
[2023-12-09 12:32] LABS: International Normalized Ratio 2.1; Prothrombin Time (Protime)PT. 23.3 SECONDS (11.7-14.9)
[2023-12-09 12:41] LABS: Differential Indicated SCAN CRITERIA MET
[2023-12-09 12:42] LABS: Platelet Estimate ADEQUATE (ADEQ); Platelet Morphology LARGE; Red Cell Morphology NORM C+C NORMAL (NORM C&C)
--- NOTE | 2023-12-09 13:18 | EX.ED.UPPERE ---
HPI <STACY Barnett - Last Filed: 12/09/23 13:57> History of Present Illness Chief Complaint: Upper Extremity Injury PFS <STACY Barnett - Last Filed: 12/09/23 13:57> [facility] Medical History Pacemaker malfunction Loss of hearing Wears glasses Wears dentures Post-menopausal Depression Diabetes Ambulates with cane Arthritis Low iron Anemia Back pain Syncope Gastric reflux Former smoker Asthma COPD (chronic obstructive pulmonary disease) Shortness of breath on exertion History of atrial fibrillation History of echocardiogram History of rheumatic fever Cardiology follow-up encounter Paroxysmal A-fib Sick sinus syndrome Presence of cardiac pacemaker Ischemic colitis Irritable bowel Restless legs High cholesterol History of stress test Pacemaker Acute colitis Acute blood loss anemia Presence of stent in coronary artery 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 Carotid artery disease Atherosclerosis of [place] coronary artery of [place] heart without angina pectoris Pacemaker Cerebrovascular disease Sick sinus syndrome with tachycardia HLD (hyperlipidemia) Home Medications ?Medication ?Instructions ?Recorded ?Last Taken ?Type aspirin 81 mg chewable tablet 81 mg PO DAILY@0800 health 08/18/18 05/22/23 History maintenance montelukast 10 mg tablet 10 mg PO QPM allergy 02/22/19 11/25/20 21:00 History handicap placard #1 ea 10/13/20 Unknown Rx nitroglycerin 0.4 mg sublingual 0.4 mg sublingual Q5-15M PRN Chest 07/22/21 Unknown Rx tablet Pain #25 tabs fesoterodine 4 mg tablet,extended 4 mg PO DAILY 02/23/22 Unknown History release 24 hr (Toviaz) warfarin 2.5 mg tablet 5 mg PO DAILY blood thinner #180 07/20/22 05/18/23 Rx tabs warfarin 5 mg tablet 5 mg PO .COMPLEX #90 tabs 07/27/22 05/18/23 Rx potassium chloride 10 mEq See Rx Instructions .Route 03/31/23 Unknown Rx tablet,extended release(part/cryst) .COMPLEX #60 tabs enalapril maleate 2.5 mg tablet 2.5 mg PO DAILY #90 tabs 06/29/23 Unknown Rx pantoprazole 40 mg tablet,delayed 40 mg PO DAILY stomach #90 tabs 06/29/23 Unknown Rx release metoprolol tartrate 25 mg tablet 12.5 mg PO DAILY 07/05/23 Unknown History pravastatin 80 mg tablet 80 mg PO QHS #90 tabs 07/08/23 Unknown Rx isosorbide mononitrate 30 mg 30 mg PO DAILY #90 tabs 07/14/23 Unknown Rx tablet,extended release 24 hr meclizine 25 mg tablet 25 mg PO Q8H PRN PRN Dizziness #20 10/24/23 Unknown Rx tabs cetirizine 10 mg tablet (Allergy 10 mg PO DAILY 11/17/23 Unknown History Relief (cetirizine)) magnesium 250 mg tablet 250 mg PO BID 5 days #10 tabs 11/17/23 Unknown Rx potassium chloride 40 mEq/15 mL 40 meq (15 mL) PO BID 5 days #150 11/17/23 Unknown Rx oral liquid mL dicyclomine 20 mg tablet 20 mg PO TID #270 tabs 11/22/23 Unknown Rx Allergy/AdvReac Type Severity Reaction Status Date / Time ciprofloxacin (From Cipro) Allergy Intermediate Itching Verified 12/09/23 10:32 atorvastatin calcium (From Allergy Hives Verified 12/09/23 10:32 Lipitor) gluten Allergy Food Verified 12/09/23 10:32 Allergy metoprolol succinate (From Allergy Rash Verified 12/09/23 10:32 Toprol XL) niacin (From Niaspan Allergy Rash Verified 12/09/23 10:32 Extended-Release) Penicillins Allergy Rash Verified 12/09/23 10:32 Sulfa (Sulfonamide Allergy Itching Verified 12/09/23 10:32 Antibiotics) regadenoson AdvReac Severe Anaphylaxis Verified 12/09/23 10:32 metronidazole AdvReac Intermediate lightheaded Verified 12/09/23 10:32 and ataxia Family History Mother CVA (cerebral vascular accident) CAD (coronary artery disease) Surgical History History of cardiac catheterization History of esophagogastroduodenoscopy (EGD) Status post placement of cardiac pacemaker History of total hysterectomy History of cholecystectomy History of left-sided carotid endarterectomy (~06/2006) Hx of CABG (~06/29/06) Social History household members: none Smoking Status: Former smoker alcohol intake: never substance use type: does not use EXAM <CHRISTIN BarnettJono - Last Filed: 12/09/23 13:57> Physical Exam Const Vital Signs: 12/09/23 10:28 Temperature 97.6 F L Temperature Source Oral Pulse Rate 80 Respiratory Rate 18 Blood Pressure 140/79 H Blood Pressure Mean 99 Pulse Ox 97 Oxygen Delivery Method Room Air MDM <CHRISTIN BarnettJono - Last Filed: 12/09/23 13:57> MDM Lab Data Labs: Laboratory Results - last 24 hr 12/09/23 11:55 WBC 10.7 RBC 4.77 Hgb 14.4 Hct 44.9 MCV 94.1 MCH 30.2 MCHC 32.1 RDW Std Deviation 47.7 H RDW Coeff of Neymar 13.8 Plt Count 184 MPV 12.0 Immature Gran % (Auto) 0.200 Neut % (Auto) 69.7 Lymph % (Auto) 17.5 L [place] % (Auto) 9.3 Eos % (Auto) 2.8 Baso % (Auto) 0.5 Absolute Neuts (auto) 7.5 Absolute Lymphs (auto) 1.87 Nucleated RBC % 0 Platelet Estimate ADEQUATE Plt Morphology Comment LARGE RBC Morphology NORM C+C PT 23.3 H INR 2.1 Sodium 138 Potassium 3.6 Chloride 106 Carbon Dioxide 26.0 Anion Gap 5 BUN 11 Creatinine 0.93 Estim Creat Clear Calc 50.42 Est GFR (MDRD) Af Amer 76 Est GFR (MDRD) Non-Af 63 BUN/Creatinine Ratio 11.9 Glucose 111 H Calcium 9.2 Magnesium 2.1 Total Bilirubin 0.50 AST 35 ALT 24 Alkaline Phosphatase 80 Troponin I High Sens 24 Total Protein 6.6 Albumin 3.3 Globulin 3.3 Albumin/Globulin Ratio 1.0 Lipase 47 Radiography Diagnostic Testing: Clinical Impression(s) from Imaging Studies Shoulder X-Ray 12/09/23 10:40 IMPRESSION: No fracture seen. Electronically Signed: Dayday Rothman MD at 11:27 EDT , Brain CT 12/09/23 12:11 IMPRESSION: Chronic involutional changes of the brain. Electronically Signed: Dayday Rothman MD at 13:11 EDT , EKG Normal sinus rhythm: Attestation: I personally reviewed and interpreted this EKG as follows: Interpretation: Sinus Rhythm Comments: Normal sinus rhythm, rate of 73 bpm, ID interval 160 ms, QRS duration 64 ms, no acute ST elevation, no acute infarct noted Treatment and Re-Evaluation Narrative: Differential diagnosis includes however is not limited to: CVA, TIA, electrolyte abnormality, medication reaction, underlying neurological reaction Patient appears generally well, vital signs are stable, patient is nontoxic-appearing. Presenting to the emergency department with complaints of muscle movements, difficulty ambulating, weakness. Patient did receive a full workup. Patient's CBC was unremarkable, patient's PT/INR showed a PT of 23.3 with an INR of 2.1 this is baseline. Chemistries were unremarkable. Patient's lipase was negative. Urinalysis currently pending. Patient CT scan of the brain shows no acute process. Patient shoulder as well as ribs x-rays were unremarkable. At this time, secondary to the patient having these neurological symptoms, patient having worsening weakness, living alone, patient will need to be admitted to the hospital. I will reach out to the hospitalist. Spoke with hospitalist, patient be admitted to hospital. Urinalysis showed no bacteria, slight white blood cells, this we sent for culture. The patient did get up and walk, there is an ataxic gait, she is very unsteady. I relayed this to the hospitalist. Patient will be admitted. <Dr. Sumeet Vo, DO - Last Filed: 12/09/23 15:06> [facility] History & Record Review Discussion w/independent historian: Patient and Family Lab Data Attestation: I reviewed the patient's lab results. Management Discussion w/another healthcare provider: Hospitalist Treatment and Re-Evaluation Narrative: Differential diagnosis includes however is not limited to: CVA, TIA, electrolyte abnormality, medication reaction, underlying neurological reaction Patient appears generally well, vital signs are stable, patient is nontoxic-appearing. Presenting to the emergency department with complaints of muscle movements, difficulty ambulating, weakness. Patient did receive a full workup. Patient's CBC was unremarkable, patient's PT/INR showed a PT of 23.3 with an INR of 2.1 this is baseline. Chemistries were unremarkable. Patient's lipase was negative. Urinalysis currently pending. Patient CT scan of the brain shows no acute process. Patient shoulder as well as ribs x-rays were unremarkable. At this time, secondary to the patient having these neurological symptoms, patient having worsening weakness, living alone, patient will need to be admitted to the hospital. I will reach out to the hospitalist. Spoke with hospitalist, patient be admitted to hospital. Urinalysis showed no bacteria, slight white blood cells, this we sent for culture. The patient did get up and walk, there is an ataxic gait, she is very unsteady. I relayed this to the hospitalist. Patient will be admitted. I have personally performed a face to face assessment of the patient and have reviewed the AKUA Note. I performed a substantive portion of the visit including all aspects of the following. My santos findings include: History is 73-year-old female brought in by family with fall. Patient's had a progressive cognitive decline with the family is concerned about them also started noticing some movements. They note that they feel unsafe with her ability to not fall at home and is wondering if assisted living her higher level of care is more appropriate. Exam is patient has movements that would be considered more like a tardive dyskinesia involving face but more pronounced of the extremities especially his left leg. When she walks she requires significant assistance and does not seem to walk in a straight line/very unsteady. She is alert and can track conversations. Medical Decison Making my independent interpretation the plain films of the shoulder is no acute fracture. CT of the brain is negative. Blood work does not show any significant abnormalities her INR is therapeutic at 2.1 urinalysis shows no overt infection does show 25-50 white cells but 5-10 squamous cells no bacteria. I do think it is in the patient's interest to be admitted into the hospital. Part of her hospital evaluation and would recommend that PT OT evaluate her and social work for probable placement. Discharge Plan Dx/Rx/DC Orders Clinical Impression: Ataxia, Acute alteration in mental status, Generalized weakness Disposition Disposition: Acute Care Hospital [facility]
--- NOTE | 2023-12-09 13:32 | PCM.HP.STD ---
HPI - General General Date of Admission: 12/09/23 Date of Service: 12/09/23 Chief Complaint: weakness, mechanical fall HPI Narrative DOT JOSEPH, is a 73 F who presents via the ED on 12/09/2023 with a complaint of weakness and difficulty ambulating. She had a fall at home in the early hours of today. She says she got out of bed to go to the bathroom and her knees gave way and she fell. She landed on her left side. She did not hit her head and thinks she hit her shoulder and her ribs. He has been getting weaker at home for the last few months and says she has been worked up on outpatient basis for Alzheimer's dementia. She has had about 7 falls over the last 3 months. She denied any fever, chills, any weakness or numbness in any extremity, any tingling, any blurred vision, any nausea vomiting or diarrhea. Review of systems otherwise negative. She denies any history of a stroke. Vitals in the ED were BP of 140/79, AK of 80, RR of 18 and temp of 97.6F. She was saturating at 97% on room air. CBC was unremarkable. BMP was also unremarkable. INR was 2.1. CT of the brain showed chronic involutional changes. Left shoulder xray showed no acute fracture. Urine tox was pending at time of review. She is being admitted to be managed for debility and weakness with unsteady gait. [facility] Medical History Pacemaker malfunction Loss of hearing Wears glasses Wears dentures Post-menopausal Depression Diabetes Ambulates with cane Arthritis Low iron Anemia Back pain Syncope Gastric reflux Former smoker Asthma COPD (chronic obstructive pulmonary disease) Shortness of breath on exertion History of atrial fibrillation History of echocardiogram History of rheumatic fever Cardiology follow-up encounter Paroxysmal A-fib Sick sinus syndrome Presence of cardiac pacemaker Ischemic colitis Irritable bowel Restless legs High cholesterol History of stress test Pacemaker Acute colitis Acute blood loss anemia Presence of stent in coronary artery Essential hypertension 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 Carotid artery disease Atherosclerosis of [place] coronary artery of [place] heart without angina pectoris Pacemaker Cerebrovascular disease Sick sinus syndrome with tachycardia HLD (hyperlipidemia) Home Medications ?Medication ?Instructions ?Recorded ?Last Taken ?Type aspirin 81 mg chewable tablet 81 mg PO DAILY@0800 health 08/18/18 05/22/23 History maintenance montelukast 10 mg tablet 10 mg PO QPM allergy 02/22/19 11/25/20 21:00 History handicap placard #1 ea 10/13/20 Unknown Rx fesoterodine 4 mg tablet,extended 4 mg PO DAILY 02/23/22 Unknown History release 24 hr (Toviaz) warfarin 5 mg tablet 5 mg PO .COMPLEX #90 tabs 07/27/22 05/18/23 Rx potassium chloride 10 mEq See Rx Instructions .Route 03/31/23 Unknown Rx tablet,extended release(part/cryst) .COMPLEX #60 tabs enalapril maleate 2.5 mg tablet 2.5 mg PO DAILY #90 tabs 06/29/23 Unknown Rx pantoprazole 40 mg tablet,delayed 40 mg PO DAILY stomach #90 tabs 06/29/23 Unknown Rx release metoprolol tartrate 25 mg tablet 12.5 mg PO DAILY 07/05/23 Unknown History pravastatin 80 mg tablet 80 mg PO QHS #90 tabs 07/08/23 Unknown Rx isosorbide mononitrate 30 mg 30 mg PO DAILY #90 tabs 07/14/23 Unknown Rx tablet,extended release 24 hr meclizine 25 mg tablet 25 mg PO Q8H PRN PRN Dizziness #20 10/24/23 Unknown Rx tabs cetirizine 10 mg tablet (Allergy 10 mg PO DAILY 11/17/23 Unknown History Relief (cetirizine)) potassium chloride 40 mEq/15 mL 40 meq (15 mL) PO BID 5 days #150 11/17/23 Unknown Rx oral liquid mL dicyclomine 20 mg tablet 20 mg PO TID #270 tabs 11/22/23 Unknown Rx ketoconazole 2 % shampoo 1 applic topical .twice a week 12/09/23 Unknown History sores magnesium 250 mg tablet 420 mg PO BID supplement 12/09/23 Unknown History nitroglycerin 0.4 mg sublingual 0.4 mg sublingual Q5-15M Chest Pain 12/09/23 Unknown History tablet warfarin 2.5 mg tablet 5 mg PO DAILY blood thinner 12/09/23 12/09/23 History Allergy/AdvReac Type Severity Reaction Status Date / Time ciprofloxacin (From Cipro) Allergy Intermediate Itching Verified 12/09/23 10:32 atorvastatin calcium (From Allergy Hives Verified 12/09/23 10:32 Lipitor) gluten Allergy Food Verified 12/09/23 10:32 Allergy metoprolol succinate (From Allergy Rash Verified 12/09/23 10:32 Toprol XL) niacin (From Niaspan Allergy Rash Verified 12/09/23 10:32 Extended-Release) Penicillins Allergy Rash Verified 12/09/23 10:32 Sulfa (Sulfonamide Allergy Itching Verified 12/09/23 10:32 Antibiotics) regadenoson AdvReac Severe Anaphylaxis Verified 12/09/23 10:32 metronidazole AdvReac Intermediate lightheaded Verified 12/09/23 10:32 and ataxia Family History Mother CVA (cerebral vascular accident) CAD (coronary artery disease) Surgical History History of cardiac catheterization History of esophagogastroduodenoscopy (EGD) Status post placement of cardiac pacemaker History of total hysterectomy History of cholecystectomy History of left-sided carotid endarterectomy (~06/2006) Hx of CABG (~06/29/06) Social History household members: none Smoking Status: Former smoker alcohol intake: never substance use type: does not use ROS Constitutional Constitutional: Reports fatigue, malaise and weakness; Denies anorexia, chills or fever(s) Eyes Eyes: Denies change in vision ENT HEENT: Denies dysphagia, headache(s) or sore throat Cardiovascular Cardiovascular: Denies chest pain, dyspnea on exertion, edema, lightheadedness or orthopnea Respiratory/Chest Respiratory/Chest: Denies cough, dyspnea, productive cough, shortness of breath at rest or shortness of breath with exertion Gastrointestinal Gastrointestinal: Denies abdominal pain, constipation, diarrhea, dyspepsia, melena, nausea or vomiting Musculoskeletal Musculoskeletal: Denies arthralgias Neurologic Neurologic: Denies confusion, dizziness, focal weakness, headache(s), numbness, paresthesias, seizure-like activity, seizures, syncope, tingling or tremor(s) Psychiatric Psychiatric: Denies anxiety or depression Endocrine Endocrinology: Denies change in body appearance Hematologic/Lymphatic Hematologic/Lymphatic: Denies anemia Vital Signs Vital Signs Vital Signs: 12/09/23 10:28 Temperature 97.6 F L Temperature Source Oral Pulse Rate 80 Respiratory Rate 18 Blood Pressure 140/79 H Blood Pressure Mean 99 Pulse Ox 97 Oxygen Delivery Method Room Air Weight Weight: 153 lb 7.068 oz Body Mass Index (BMI) 27.1 Physical Exam Const alert, oriented x3 and no apparent distress General Appearance: cooperative HEENT normocephalic, head/scalp atraumatic and hearing grossly normal bilaterally Mouth: oral and palatal mucosa normal Eyes PERRL, EOMs intact bilaterally and conjunctivae normal Neck no lymphadenopathy, supple and no JVD Resp normal respiratory effort, no use of accessory muscles and clear to auscultation bilaterally Cardio regular rate, regular rhythm, S1 normal heart sound, S2 normal heart sound and no murmurs GI normal to inspection, nondistended, normoactive bowel sounds, soft to palpation, non-tender and non-distended Extremity normal to inspection, full ROM and no clubbing, cyanosis or edema Neuro oriented x3, CN's II-XII intact bilaterally, moves all extremities and no focal motor deficits Neuro Narrative: appears to be having myoclonic jerks of all extremities. Sensorium / Orientation: awake and alert Motor Exam: strength 5/5 throughout Psych affect normal Results Lab / Micro Data 12/09/23 11:55 12/09/23 11:55 Labs: Laboratory Results - last 24 hr 12/09/23 11:55: WBC 10.7, RBC 4.77, Hgb 14.4, Hct 44.9, MCV 94.1, MCH 30.2, MCHC 32.1, RDW Std Deviation 47.7 H, RDW Coeff of [place] 13.8, Plt Count 184, MPV 12.0, Immature Gran % (Auto) 0.200, Neut % (Auto) 69.7, Lymph % (Auto) 17.5 L, [place] % (Auto) 9.3, Eos % (Auto) 2.8, Baso % (Auto) 0.5, Absolute Neuts (auto) 7.5, Absolute Lymphs (auto) 1.87, Nucleated RBC % 0, Platelet Estimate ADEQUATE, Plt Morphology Comment LARGE, RBC Morphology NORM C+C, PT 23.3 H, INR 2.1, Sodium 138, Potassium 3.6, Chloride 106, Carbon Dioxide 26.0, Anion Gap 5, BUN 11, Creatinine 0.93, Estim Creat Clear Calc 50.42, Est GFR (MDRD) Af Amer 76, Est GFR (MDRD) Non-Af 63, BUN/Creatinine Ratio 11.9, Glucose 111 H, Calcium 9.2, Magnesium 2.1, Total Bilirubin 0.50, AST 35, ALT 24, Alkaline Phosphatase 80, Troponin I High Sens 24, Total Protein 6.6, Albumin 3.3, Globulin 3.3, Albumin/Globulin Ratio 1.0, Lipase 47 Imaging Radiology Impression Shoulder X-Ray 12/09/23 10:40 IMPRESSION: No fracture seen. Electronically Signed: Dayday Rothman MD at 11:27 EDT , Brain CT 12/09/23 12:11 IMPRESSION: Chronic involutional changes of the brain. Electronically Signed: Dayday Rothman MD at 13:11 EDT , Assessment & Plan Assessment/Plan (1) Generalized weakness: PLAN: Plan #Debility and weakness due to mechanical fall Patient has been getting weaker at home and says she has had numerous falls over the last few months. She fell earlier this morning while getting up to go to the bathroom. Her knees gave when she just tripped and fell. She landed on her left side. She did not hit her head but hit her shoulder and her ribs. CT of the brain showed no acute intracranial pathology. X-ray of the left shoulder showed no evidence of any fracture. X-ray of the ribs was normal and chest x-ray showed no acute cardiopulmonary disease with no evidence of fracture or pneumothorax. She says she is being worked up on outpatient basis for Alzheimer's dementia. She has she has been getting weaker at home and has not been able to carry out her activities of daily living. Consult PT OT. Fall precautions. Will likely need placement. Urinalysis pending. Check orthostatics. Hydrate gently with IV fluid normal saline 75 cc/h x 1 bag. #History of bradycardia status post pacemaker insertion: Stable #History of paroxysmal A-fib: On Coumadin. INR is therapeutic at 2.1. Also on metoprolol. Patient will likely be going to long term facility so he may be reasonable to continue the Coumadin Will have an extensive discussion for a shared decision making process about th whether to continue the coumadin. #Chronic back pain: stable #Hypertension: On enalapril #GERD: On PPI DVT prophylaxis: not indicated as she is already on coumadin. INR is 2.1. Code status: full code Patient counseled extensively about different types of CODE STATUS including full code, DNR CCA and DNR CCA. Patient elects to be full code. Total [id number] time 16 minutes. Charges/Coding Visit Charges Inpatient E&M: 26110 Init Hosp L2 Procedures Hospitalists Procedures: 62219 Advncd Care Plan 30 Min
[2023-12-09 13:40] LABS: Bacteria 0 SEEN /hpf (None Seen); Mucous, Urine 0 SEEN /hpf (<or=2+); Red Blood Cells-Urine 0 SEEN /hpf (0-5)
[2023-12-09 13:46] LABS: Color, Urine Yellow (Yellow); Glucose, Dipstick Normal (Normal); Ketone-Dipstick Negative (Negative); Leukocyte Esterase-Dipstick 500 /ul (Negative); Nitrite-Dipstick Negative (Negative); Occult Blood-Urine 10 /ul (Negative); Protein-Dipstick 15 mg/dl (Negative); Urine Bilirubin Dipstick Negative (Negative); Urine Clarity Sl. Cloudy (Clear); Urine Urobilinogen Normal (Normal)
[2023-12-09 13:53] LABS: Squamous Epithelial Cells - UA 5-10 SEEN /hpf (5-10); White Blood Cells 25-50 SEEN /hpf (0-5)
[2023-12-09 14:27] VITALS: BP 131/88; PULSE 75; RESP 18; TEMP 36.6; O2SAT 100
[2023-12-09 15:06] VITALS: BMI 25.2
[2023-12-09 15:07] VITALS: BP 139/41; PULSE 72; RESP 18; TEMP 35.7; O2SAT 96
[2023-12-09 15:50] VITALS: BP 108/85; BP 119/78; BP 98/65; PULSE 68; PULSE 76; PULSE 81
[2023-12-09 18:29] VITALS: BP 134/80; PULSE 73; RESP 18; TEMP 36.2; O2SAT 97
[2023-12-09] MEDS: oxyCODONE 5 MG Tablet PO ×2 (18:29→23:00)
[2023-12-09] MEDS: 0.9% Saline Lock 10 ML Syringe IV (18:30)
[2023-12-09] MEDS: Dicyclomine 10 MG Capsule 20 MG PO (21:33)
[2023-12-09] MEDS: Montelukast 10 MG Tablet PO (21:33)
[2023-12-09] MEDS: Pravastatin 80 MG Tablet PO (21:33)
[2023-12-09] MEDS: Magnesium Chloride 64 MG Delay Rel.Tablet 128 MG PO (21:34)
[2023-12-09 21:53] VITALS: BP 102/63; PULSE 74; RESP 15; TEMP 36.5; O2SAT 94
[2023-12-10] VITALS (10 sets, daily range): BP systolic 105–135; BP diastolic 62–87; PULSE 69–96; RESP 16–18; TEMP 36.2–36.7; O2SAT 85–98
[2023-12-10] MEDS: Ondansetron 4 MG/2 ML Vial IV (00:40)
--- NOTE | 2023-12-10 02:36 | PCM.HOSP.N ---
Hospitalist Note Patient w/ N/V, will request KUB, add 2nd line antiemetic.
[2023-12-10] MEDS: proCHLORPERazine 10 MG/2 ML Vial 5 MG IV (03:50)
[2023-12-10] MEDS: Dicyclomine 10 MG Capsule 20 MG PO ×3 (05:29→22:51)
[2023-12-10 05:57] LABS: Absolute Lymphocyte Count 0.95 X10^3/uL (0.83-4.51); Absolute Neutrophil Count 13.4 X10^3/uL (2.0-7.7); Basophil# 0.07 X10^3/uL; Basophil% 0.4 % (0-1); Eosinophil# 0.07 X10^3/uL; Eosinophils% 0.4 % (0-5); Hemoglobin 14.8 g/dL (12.0-15.0); Lymphocyte # 0.95 X10^3/ul (0.83-4.51); Lymphocyte % 6.1 % (19-41); Mean Corp Hgb Conc 31.5 g/dL (32-36); Mean Corpuscular Volume 95.1 fL (81-99); Mean Platelet Vol. 12.4 fl (6.2-12.0); Monocyte# 1.03 X10^3/uL; Monocyte% 6.6 % (0-10); NRBC Flagged by Analyzer 0 % (0-5); Neutrophil # 13.44 X10^3/uL (2.7-7.7); Neutrophil % 86.2 % (47-70); Platelet Count 205 K/mm3 (150-450); RBC Distribution Width CV 14.1 % (11.6-14.6); RBC Distribution Width SD 49.2 fl (35.1-43.9); Red Blood Count 4.94 M/mm3 (4.2-5.4); White Blood Count 15.6 K/mm3 (4.4-11.0)
[2023-12-10 06:15] LABS: International Normalized Ratio 1.5; Prothrombin Time (Protime)PT. 18.2 SECONDS (11.7-14.9)
--- NOTE | 2023-12-10 06:25 | RAD_ITS ---
INDICATION: Pain EXAMINATION/TECHNIQUE: X-RAY - XR Abdomen 1 View COMPARISON: Rib radiograph December 09, 2023 FINDINGS: BOWEL GAS PATTERN: Increased layering prominent loops of air-filled small bowel left abdomen. 2.4 cm in caliber with mild scattered distal small bowel gas. Moderate scattered colonic stool. FREE AIR: Not well assessed on a supine view. ORGANOMEGALY: Not seen. CALCIFICATIONS: Upper abdominal surgical clips are again noted. Multiple upper abdominal nonspecific calcifications. LOWER CHEST: Sternotomy wires partially seen.. BONES AND SOFT TISSUES: No acute pathology. RAD/Abdomen Single View (Portable) IMPRESSION: Increased layering loops of prominent air-filled small bowel left abdomen. Finding could be transient, secondary ileus from left abdominal inflammation, or early obstruction. CT could further evaluate as clinically indicated. Otherwise radiographic follow-up recommended. Electronically Signed: Can Gracia MD at 9:06 EDT ,
[2023-12-10 06:48] LABS: Anion Gap 6 (5-15); BUN 12 mg/dL (7-18); BUN/Creat Ratio 14.2 RATIO (10-20); Calcium,Total 9.5 mg/dL (8.5-10.1); Chloride 103 mmol/L (98-107); Creatinine, Serum 0.85 mg/dL (0.55-1.02); EST Glomerular Filtration Rate 70 mL/min (>60); Est Glom Filt Rate - Afr Amer 85 mL/min (>60); Estimated Creatinine Clearance 53.34 ml/min; Glucose 142 mg/dL (74-106); Potassium 3.5 mmol/L (3.5-5.1); Sodium Level 136 mmol/L (136-145)
[2023-12-10] MEDS: Potassium Chloride Oral Tablet 20 MEQ 40 MEQ PO (08:53)
[2023-12-10] MEDS: Magnesium Chloride 64 MG Delay Rel.Tablet 128 MG PO ×2 (08:54→22:51)
[2023-12-10] MEDS: Isosorbide Mononitrate 30 MG Tablet PO (08:54)
[2023-12-10] MEDS: Lisinopril 2.5 MG Tablet PO (08:54)
[2023-12-10] MEDS: Tolterodine Tartrate 2 MG CAP.SA PO (08:54)
[2023-12-10] MEDS: Loratadine 10 MG Tablet PO (08:54)
[2023-12-10] MEDS: Aspirin 81 MG TAB.CHEW PO (08:55)
[2023-12-10] MEDS: Pantoprazole Sodium 40 MG Tablet PO (08:55)
[2023-12-10] MEDS: Acetaminophen 325 MG Tablet 650 MG PO (09:07)
[2023-12-10] MEDS: oxyCODONE 5 MG Tablet PO (09:08)
[2023-12-10] MEDS: Metoprolol Tartrate 25 MG Tablet 12.5 MG PO (09:08)
[2023-12-10] MEDS: FLU VACCINE **HIGH DOSE** TV 24-25 180 MCG/0.5 ML SYRINGE IM (09:11)
--- NOTE | 2023-12-10 10:00 | RAD_ITS ---
INDICATION: increased oxygen needs -- can be portable EXAMINATION/TECHNIQUE: X-RAY - XR Chest 1 View COMPARISON: Prior study dated: 05/17/2023 FINDINGS: LINES/DEVICES: Sided dual-chamber cardiac pacer device in stable position. LUNGS: No consolidation, edema or effusion. No pneumothorax. MEDIASTINUM AND CARDIOVASCULAR STRUCTURES: Stable cardiomediastinal silhouette. Status post median sternotomy. BONES AND SOFT TISSUES: No acute osseous changes. RAD/Chest 1 View (Portable) IMPRESSION: No radiographic evidence of acute cardiopulmonary disease. Electronically Signed: Krishan Parker MD at 11:18 EDT ,
[2023-12-10 10:14] LABS: BNP,B-Type NATRIURETIC PEPTIDE 64.9 pg/mL (0-100)
--- NOTE | 2023-12-10 10:17 | PCM.PROGNOTE ---
Subjective Subjective Patient seen and examined. She had no complaints. Objective Data Objective Data Vital Signs: Vital Signs Temp Pulse Resp BP Pulse Ox O2 Del Method O2 Flow Rate 97.2 F L 96 18 135/87 H 98 Nasal Cannula 4 12/10/23 08:45 12/10/23 09:08 12/10/23 08:45 12/10/23 09:08 12/10/23 08:45 12/10/23 08:45 12/10/23 08:45 Oxygen Flow Rate (L/min) 4 Oxygen Delivery Method Nasal Cannula Weight: 142 lb 10.225 oz Body Mass Index (BMI) 25.2 Intake & Output: Intake and Output for Last 24 Hours 12/08/23 12/09/23 12/10/23 23:59 23:59 23:59 Intake Total 240 / 240 Balance 240 / 240 Lab / Micro Data 12/10/23 04:40 12/10/23 04:40 Labs: Laboratory Results - last 24 hr 12/09/23 11:55: WBC 10.7, RBC 4.77, Hgb 14.4, Hct 44.9, MCV 94.1, MCH 30.2, MCHC 32.1, RDW Std Deviation 47.7 H, RDW Coeff of Neymar 13.8, Plt Count 184, MPV 12.0, Immature Gran % (Auto) 0.200, Neut % (Auto) 69.7, Lymph % (Auto) 17.5 L, [place] % (Auto) 9.3, Eos % (Auto) 2.8, Baso % (Auto) 0.5, Absolute Neuts (auto) 7.5, Absolute Lymphs (auto) 1.87, Nucleated RBC % 0, Platelet Estimate ADEQUATE, Plt Morphology Comment LARGE, RBC Morphology NORM C+C, PT 23.3 H, INR 2.1, Sodium 138, Potassium 3.6, Chloride 106, Carbon Dioxide 26.0, Anion Gap 5, BUN 11, Creatinine 0.93, Estim Creat Clear Calc 50.42, Est GFR (MDRD) Af Amer 76, Est GFR (MDRD) Non-Af 63, BUN/Creatinine Ratio 11.9, Glucose 111 H, Calcium 9.2, Magnesium 2.1, Total Bilirubin 0.50, AST 35, ALT 24, Alkaline Phosphatase 80, Troponin I High Sens 24, Total Protein 6.6, Albumin 3.3, Globulin 3.3, Albumin/Globulin Ratio 1.0, Lipase 47 12/09/23 13:35: Urine Color Yellow, Urine Clarity Sl. Cloudy, Urine pH 6.0, Ur Specific [place] 1.020, Urine Protein 15 H, Urine Glucose (UA) Normal, Urine Ketones Negative, Urine Occult Blood 10 H, Urine Nitrite Negative, Urine Bilirubin Negative, Urine Urobilinogen Normal, Ur Leukocyte Esterase 500 H, Urine RBC 0 SEEN, Urine WBC 25-50 SEEN, Ur Squamous Epith Cells 5-10 SEEN, Urine Bacteria 0 SEEN, Urine Mucus 0 SEEN 12/10/23 04:40: WBC 15.6 H, RBC 4.94, Hgb 14.8, Hct 47.0, MCV 95.1, MCH 30.0, MCHC 31.5 L, RDW Std Deviation 49.2 H, RDW Coeff of Neymar 14.1, Plt Count 205, MPV 12.4 H, Immature Gran % (Auto) 0.300, Neut % (Auto) 86.2 H, Lymph % (Auto) 6.1 L, [place] % (Auto) 6.6, Eos % (Auto) 0.4, Baso % (Auto) 0.4, Absolute Neuts (auto) 13.4 H, Absolute Lymphs (auto) 0.95, Nucleated RBC % 0, PT 18.2 H, INR 1.5, Sodium 136, Potassium 3.5, Chloride 103, Carbon Dioxide 27.0, Anion Gap 6, BUN 12, Creatinine 0.85, Estim Creat Clear Calc 53.34, Est GFR (MDRD) Af Amer 85, Est GFR (MDRD) Non-Af 70, BUN/Creatinine Ratio 14.2, Glucose 142 H, Calcium 9.5, B-Natriuretic Peptide 64.9 Radiography Diagnostic Testing: Radiology Impression Shoulder X-Ray 12/09/23 10:40 IMPRESSION: No fracture seen. Electronically Signed: Dayday Rothman MD at 11:27 EDT , Brain CT 12/09/23 12:11 IMPRESSION: Chronic involutional changes of the brain. Electronically Signed: Dayday Rothman MD at 13:11 EDT , Ribs w/Chest X-Ray 12/09/23 12:15 IMPRESSION: RIBS: Normal x-ray examination of the ribs. CHEST: No acute cardiopulmonary disease. No fracture or pneumothorax. Electronically Signed: Dayday Rothman MD at 13:35 EDT , KUB X-Ray 12/10/23 06:25 IMPRESSION: Increased layering loops of prominent air-filled small bowel left abdomen. Finding could be transient, secondary ileus from left abdominal inflammation, or early obstruction. CT could further evaluate as clinically indicated. Otherwise radiographic follow-up recommended. Electronically Signed: Can Gracia MD at 9:06 EDT ,
--- NOTE | 2023-12-10 11:13 | CASEMGMT ---
Social Work SW met w/pt in room, reviewed prior level of function and anticipated discharge plan. PCP: Erasmo Pierre Specialists: Dr. Pérez--cardiology, Dr. Costa--pulmonology, Dr. Kirk--GI, Dr. Kraus--vascular Insurance/Prescription Coverage: [facility], [facility] Community Plan Pharmacy: Pt gets scripts mailed, prepackaged. If pt has a short term prescription she uses [facility] LW/POA: Pt's brother Rey is healthcare POA, not on file, pt is aware Living arrangements/prior level of function: Pt lives home alone in a basement apartment, 7 steps to enter. Pt does have difficulty w/stairs. Pt gets groceries delivered, gets food delivered. Pt does make food for herself occasionally. Pt gets medications prepackaged. Pt independent with bathing, dressing. Pt's sister Rios runs the sweeper once in a while for her, pt's sister Tanya does the laundry. Transportation: Pt's brother or sister in law takes pt to [facility]. DME: Pt has a walker, cane, rollator, shower chair. Pt does not have home O2 SNF/HHC: Pt did go to [facility] in 2019 for about a month. Pt has had HHC in the past. Pt states has a waiver case coordinator, unsure of name. Pt has had waiver services at home in the past, but not at present. Plan: SNF SW spoke w/pt about discharge plan. Pt agreeable to [facility] facility at this time, she states she is having a hard time at home. Pt states that her brother thinks she may need to go to stay, and she seems agreeable to this at present. SRINIVASA provided to pt a list from [facility] of [facility] facilities in network w/pt's insurance, in pt's preferred geographic area and complete w/quality and resource use data. Pt does not want to return to [facility], is not sure where to go. She states for SW to call her brother Rey who helps her w/medical decisions. SW called Rey, spoke w/him about the discharge plan. Rey inquired about both SNF and assisted living. SRINIVASA explained to Rey 2-3 times that at this time therapy is recommending SNF, reviewed therapy w/Rey. Rey in agreement with this, asked also about assisted living. SRINIVASA explained that this may be a good plan after SNF. SRINIVASA let Rey know the SNF list is in the pt's room, and SW will put an AL list in the room as well. SRINIVASA explained the SW Tuesday will follow up w/him for SNF choices, SW educated Rey on the referral and insurance process. Rey states understanding. SRINIVASA placed an AL list in the room with the SNF list, wrote on the SNF list for Rey that this is the list from which to make 3 choices, and left SRINIVASA Santiago's number for Rey to call Tuesday. Plan: SNF, facility TBD, pt's brother Rey to follow up w/SW Tuesday for choices. LIZBEHT Jorgensen
[2023-12-10] MEDS: Ceftriaxone 1 GM/50 ML BAG IV (13:23)
--- NOTE | 2023-12-10 15:04 | CT_ITS ---
INDICATION: small bowel obstruction EXAMINATION: CTA abdomen and pelvis - TECHNIQUE: Routine abdominal CT angiogram protocol was performed with IV contrast. MIP images provided. A radiation dose optimization technique was used for this scan. IV Contrast dosage and agent: Radiation dose DLP 581.92 mGy / cm. COMPARISON: None. FINDINGS: Lung bases: Mild subsegmental atelectasis in both lower lobes Liver: Nonspecific fatty infiltrated liver without mass or bile duct dilatation. Gallbladder: Gallbladder not visualized status post cholecystectomy. Spleen: Normal. Adrenal gland: Normal. Kidneys: . No hydronephrosis or stone formation. There is a parapelvic cyst in the right kidney. Pancreas:Normal. Bowel gas pattern: Nonobstructive. Diffuse fecal retention noted within the colon. Appendix: No evidence for acute appendicitis Free air: None. Free fluid: None. Pelvis: Pelvic organs: No mass lesion noted. Uterus not visualized status post hysterectomy Bone survey: Lumbar spine demonstrates degenerative change. Grade 1 spondylolisthesis at L5-S1 No aggressive bony lesions. No acute fractures. Adenopathy: No significant pathologic adenopathy detected. Other: None. Vascular: Diffuse atherosclerotic change of the aorta without evidence for aneurysm CT/CTA Abd/Pelvis W/WO Contrast IMPRESSION: Diffuse fecal retention noted within the colon. No evidence for small bowel obstruction or pneumoperitoneum Status post cholecystectomy and hysterectomy Electronically Signed: Papo Monzon MD at 17:28 EDT ,
--- NOTE | 2023-12-10 16:51 | CASEMGMT ---
LINDA BOYD NOTE: Intro role of CM to patient and BEARDEN form explained re: Observation status for treatment of weakness, debility, and unsteady gait.? Explained hospitalization will be paid per?her insurance policy for Outpatient billing?and condition will continue to be evaluated for Inpt necessity. Also let pt know that [facility] sends paper in the billing packet with their phone number if questions arise. Pt verbalizes understanding and does not have further questions. ?Form signed, copy made and placed in chart, and original given to pt. Chantal MEADE RN CM
[2023-12-10] MEDS: Pravastatin 80 MG Tablet PO (22:51)
[2023-12-10] MEDS: Montelukast 10 MG Tablet PO (22:51)
[2023-12-11] VITALS (8 sets, daily range): BP systolic 118–136; BP diastolic 74–88; PULSE 78–103; RESP 18; TEMP 36.4–37.2; O2SAT 87–99
[2023-12-11] MEDS: Dicyclomine 10 MG Capsule 20 MG PO ×3 (04:54→20:40)
[2023-12-11 05:33] LABS: Absolute Lymphocyte Count 1.37 X10^3/uL (0.83-4.51); Absolute Neutrophil Count 8.1 X10^3/uL (2.0-7.7); Basophil# 0.06 X10^3/uL; Basophil% 0.6 % (0-1); Eosinophil# 0.28 X10^3/uL; Eosinophils% 2.6 % (0-5); Hematocrit 45.2 % (37-47); Lymphocyte # 1.37 X10^3/ul (0.83-4.51); Lymphocyte % 12.8 % (19-41); Mean Corpuscular Hgb 30.2 pg (27.0-32.0); Mean Corpuscular Volume 97.4 fL (81-99); Mean Platelet Vol. 12.4 fl (6.2-12.0); Monocyte% 8.4 % (0-10); NRBC Flagged by Analyzer 0 % (0-5); Neutrophil # 8.06 X10^3/uL (2.7-7.7); Neutrophil % 75.1 % (47-70); Platelet Count 188 K/mm3 (150-450); RBC Distribution Width CV 14.5 % (11.6-14.6); RBC Distribution Width SD 52.2 fl (35.1-43.9); Red Blood Count 4.64 M/mm3 (4.2-5.4); White Blood Count 10.7 K/mm3 (4.4-11.0)
[2023-12-11 05:48] LABS: International Normalized Ratio 1.5; Prothrombin Time (Protime)PT. 18.2 SECONDS (11.7-14.9)
[2023-12-11 05:59] LABS: Anion Gap 4 (5-15); BUN 12 mg/dL (7-18); BUN/Creat Ratio 13.7 RATIO (10-20); Calcium,Total 8.9 mg/dL (8.5-10.1); Chloride 104 mmol/L (98-107); Creatinine, Serum 0.88 mg/dL (0.55-1.02); EST Glomerular Filtration Rate 67 mL/min (>60); Est Glom Filt Rate - Afr Amer 81 mL/min (>60); Estimated Creatinine Clearance 51.52 ml/min; Glucose 123 mg/dL (74-106); Potassium 4.4 mmol/L (3.5-5.1); Sodium Level 137 mmol/L (136-145)
[2023-12-11] MEDS: Aspirin 81 MG TAB.CHEW PO (07:57)
[2023-12-11] MEDS: Magnesium Chloride 64 MG Delay Rel.Tablet 128 MG PO ×2 (07:58→20:39)
[2023-12-11] MEDS: Loratadine 10 MG Tablet PO (07:58)
[2023-12-11] MEDS: Lisinopril 2.5 MG Tablet PO (07:58)
[2023-12-11] MEDS: Metoprolol Tartrate 25 MG Tablet 12.5 MG PO (07:59)
[2023-12-11] MEDS: Tolterodine Tartrate 2 MG CAP.SA PO (07:59)
[2023-12-11] MEDS: Isosorbide Mononitrate 30 MG Tablet PO (08:01)
[2023-12-11] MEDS: Pantoprazole Sodium 40 MG Tablet PO (08:02)
[2023-12-11] MEDS: Polyethylene Glycol 3350 17 GM PACKET PO (08:15)
--- NOTE | 2023-12-11 11:03 | PN_ITS ---
Subjective Subjective Patient seen and examined. He had no complaints and had an uneventful night. Review of systems is otherwise negative. Objective Data Objective Data Vital Signs: Vital Signs Temp Pulse Resp BP Pulse Ox O2 Del Method O2 Flow Rate 97.6 F L 103 H 18 132/74 H 98 Nasal Cannula 2 12/11/23 07:55 12/11/23 07:59 12/11/23 07:55 12/11/23 07:55 12/11/23 07:55 12/11/23 10:00 12/11/23 10:00 Oxygen Flow Rate (L/min) 2 Oxygen Delivery Method Nasal Cannula Weight: 142 lb 10.225 oz Body Mass Index (BMI) 25.2 Intake & Output: Intake and Output for Last 24 Hours 12/09/23 12/10/23 12/11/23 23:59 23:59 23:59 Intake Total 240 / 240 110 / 110 Balance 240 / 240 110 / 110 Lab / Micro Data 12/11/23 03:45 12/11/23 03:45 Labs: Laboratory Results - last 24 hr 12/11/23 03:45: WBC 10.7, RBC 4.64, Hgb 14.0, Hct 45.2, MCV 97.4, MCH 30.2, MCHC 31.0 L, RDW Std Deviation 52.2 H, RDW Coeff of Neymar 14.5, Plt Count 188, MPV 12.4 H, Immature Gran % (Auto) 0.500, Neut % (Auto) 75.1 H, Lymph % (Auto) 12.8 L, [place] % (Auto) 8.4, Eos % (Auto) 2.6, Baso % (Auto) 0.6, Absolute Neuts (auto) 8.1 H, Absolute Lymphs (auto) 1.37, Nucleated RBC % 0, PT 18.2 H, INR 1.5, Sodium 137, Potassium 4.4, Chloride 104, Carbon Dioxide 29.0, Anion Gap 4 L, BUN 12, Creatinine 0.88, Estim Creat Clear Calc 51.52, Est GFR (MDRD) Af Amer 81, Est GFR (MDRD) Non-Af 67, BUN/Creatinine Ratio 13.7, Glucose 123 H, Calcium 8.9 Radiography Diagnostic Testing: Radiology Impression Chest X-Ray 12/10/23 10:00 IMPRESSION: No radiographic evidence of acute cardiopulmonary disease. Electronically Signed: Krishan Parker MD at 11:18 EDT , Abdomen/Pelvis CTA 12/10/23 15:04 IMPRESSION: Diffuse fecal retention noted within the colon. No evidence for small bowel obstruction or pneumoperitoneum Status post cholecystectomy and hysterectomy Electronically Signed: Papo Monzon MD at 17:28 EDT , Physical Exam Const alert, oriented x3 and no apparent distress General Appearance: cooperative HEENT normocephalic, head/scalp atraumatic and hearing grossly normal bilaterally Eyes PERRL, EOMs intact bilaterally and conjunctivae normal Neck no lymphadenopathy, supple and no JVD Resp normal respiratory effort, normal air movement, no use of accessory muscles and clear to auscultation bilaterally Cardio regular rate, regular rhythm, S1 normal heart sound, S2 normal heart sound and no murmurs GI normal to inspection, nondistended, normoactive bowel sounds, soft to palpation, non-tender and non-distended Extremity normal to inspection, full ROM, normal capillary refill and no clubbing, cyanosis or edema General Extremity: no tenderness to palpation of joints or extremities Skin General Skin Exam: no breakdown Neuro oriented x3, CN's II-XII intact bilaterally, moves all extremities and no focal motor deficits Sensorium / Orientation: awake and alert Motor Exam: strength 5/5 throughout Psych affect normal Appearance: appropriate Assessment & Plan Assessment/Plan (1) Generalized weakness: PLAN: Plan #Debility and weakness due to mechanical fall * Patient has been getting weaker at home and says she has had numerous falls over the last few months. * She fell earlier this morning while getting up to go to the bathroom. Her knees gave when she just tripped and fell. She landed on her left side. She did not hit her head but hit her shoulder and her ribs. * CT of the brain showed no acute intracranial pathology. X-ray of the left shoulder showed no evidence of any fracture. * X-ray of the ribs was normal and chest x-ray showed no acute cardiopulmonary disease with no evidence of fracture or pneumothorax. * She says she is being worked up on outpatient basis for Alzheimer's dementia. She has she has been getting weaker at home and has not been able to carry out her activities of daily living. * Consult PT OT. Fall precautions. * Will likely need placement. Urine cultures pending. #Probable UTI * WBC trended upwards yesterday to 15.7. Patient started on IV ceftriaxone. Urinalysis did not show bacteria but showed elevated WBC and elevated leukocyte esterase. * Urine cultures pending. WBC has trended down to 10.7 today. * #History of bradycardia status post pacemaker insertion: Stable #History of paroxysmal A-fib: * On Coumadin. INR today is 1.5 * Also on metoprolol. * Patient will likely be going to senior living facility so he may be reasonable to continue the Coumadin * Will have an extensive discussion for a shared decision making process about th whether to continue the coumadin. #Chronic back pain: stable #Hypertension: On enalapril #GERD: On PPI DVT prophylaxis: not indicated as she is already on coumadin. INR is today is 1.5 Code status: full code * Charges/Coding Visit Charges Inpatient E&M: 14873 Subs Hosp L2
[2023-12-11] MEDS: Potassium Chloride Oral Tablet 20 MEQ 40 MEQ PO (11:13)
[2023-12-11] MEDS: Ceftriaxone 1 GM/50 ML BAG IV (11:13)
[2023-12-11] MEDS: Pravastatin 80 MG Tablet PO (20:38)
[2023-12-11] MEDS: Montelukast 10 MG Tablet PO (20:38)
[2023-12-12] VITALS (7 sets, daily range): BP systolic 130–162; BP diastolic 78–90; PULSE 78–88; RESP 16–18; TEMP 36.2–37; O2SAT 93–96
[2023-12-12] MEDS: Dicyclomine 10 MG Capsule 20 MG PO ×3 (05:58→20:24)
[2023-12-12 07:00] LABS: Absolute Lymphocyte Count 1.56 X10^3/uL (0.83-4.51); Absolute Neutrophil Count 7.8 X10^3/uL (2.0-7.7); Basophil# 0.04 X10^3/uL; Basophil% 0.4 % (0-1); Eosinophil# 0.38 X10^3/uL; Eosinophils% 3.5 % (0-5); Hematocrit 44.1 % (37-47); Hemoglobin 13.7 g/dL (12.0-15.0); Lymphocyte # 1.56 X10^3/ul (0.83-4.51); Lymphocyte % 14.3 % (19-41); Mean Corp Hgb Conc 31.1 g/dL (32-36); Mean Corpuscular Volume 96.7 fL (81-99); Mean Platelet Vol. 12.4 fl (6.2-12.0); Monocyte# 1.06 X10^3/uL; Monocyte% 9.7 % (0-10); NRBC Flagged by Analyzer 0 % (0-5); Neutrophil # 7.81 X10^3/uL (2.7-7.7); Neutrophil % 71.8 % (47-70); Platelet Count 187 K/mm3 (150-450); RBC Distribution Width CV 14.1 % (11.6-14.6); RBC Distribution Width SD 50.5 fl (35.1-43.9); Red Blood Count 4.56 M/mm3 (4.2-5.4); White Blood Count 10.9 K/mm3 (4.4-11.0)
[2023-12-12 07:03] LABS: International Normalized Ratio 1.4; Prothrombin Time (Protime)PT. 17.1 SECONDS (11.7-14.9)
--- NOTE | 2023-12-12 08:15 | CASEMGMT ---
SRINIVASA received a voice mail from patient's brother Rey. The three SNF preferences for patient are: 1. [facility] 2. [facility] 3. [facility]. SW asked Alejandra to send referrals. Plan: SNF pending accepting facility and pre-cert. Pamela SEPULVEDA
[2023-12-12] MEDS: Ceftriaxone 1 GM/50 ML BAG IV (09:11)
[2023-12-12] MEDS: Tolterodine Tartrate 2 MG CAP.SA PO (09:13)
[2023-12-12] MEDS: Aspirin 81 MG TAB.CHEW PO (09:13)
[2023-12-12] MEDS: Pantoprazole Sodium 40 MG Tablet PO (09:13)
[2023-12-12] MEDS: Isosorbide Mononitrate 30 MG Tablet PO (09:13)
[2023-12-12] MEDS: Lisinopril 2.5 MG Tablet PO (09:13)
[2023-12-12] MEDS: Magnesium Chloride 64 MG Delay Rel.Tablet 128 MG PO ×2 (09:14→20:23)
[2023-12-12] MEDS: Metoprolol Tartrate 25 MG Tablet 12.5 MG PO (09:14)
[2023-12-12] MEDS: Loratadine 10 MG Tablet PO (09:15)
--- NOTE | 2023-12-12 09:22 | CASEMGMT ---
Addendum entered by Izzy Moeller 12/12/23 09:53: [facility] declined. RANJAN Albright, PRODUCTION DRILLING MACHINE OPERATOR Original Note: Social Work Referral sent to [facility] per patient choice. RANJAN Albright, PRODUCTION DRILLING MACHINE OPERATOR
--- NOTE | 2023-12-12 09:53 | CASEMGMT ---
Addendum entered by Izzy Moeller 12/12/23 11:06: [facility], precert has been started. RANJAN Albright, PIGMENT AND LACQUER MIXER Original Note: Social Work Referral sent to [facility]. RANJAN Albright, PIGMENT AND LACQUER MIXER
--- NOTE | 2023-12-12 10:19 | CASEMGMT ---
SRINIVASA received a call from patient's brother Rey. SRINIVASA updated Rey that [facility] is unable to take patient, but [facility] has accepted. SRINIVASA answered Rey's questions. SRINIVASA let Rey know that once insurance approves patient will be transferred to [facility]. Someone from [facility] will let him know. Plan: d/c to [facility] pending insurance approval. Pamela SEPULVEDA
[2023-12-12 10:38] LABS: Anion Gap 9 (5-15); BUN 8 mg/dL (7-18); Chloride 102 mmol/L (98-107); EST Glomerular Filtration Rate 75 mL/min (>60); Est Glom Filt Rate - Afr Amer 90 mL/min (>60); Estimated Creatinine Clearance 56.67 ml/min; Glucose 140 mg/dL (74-106); Sodium Level 135 mmol/L (136-145)
[2023-12-12] MEDS: Potassium Chloride Oral Tablet 20 MEQ 40 MEQ PO (13:02)
--- NOTE | 2023-12-12 15:08 | CASEMGMT ---
SW spoke with patient. Introduced self and role at [facility]. SW updated patient on the d/c plan. Patient is agreeable to d/c to [facility] pending insurance approval. Plan: d/c to [facility] pending insurance approval. Pamela SEPULVEDA
--- NOTE | 2023-12-12 18:32 | PN.HOSP_ITS ---
Reason for Visit Reason for Visit: Diagnoses Weakness (12/09/23) Subjective Subjective Patient laying in bed, feels better than when she came in but still somewhat weak overall, has no new or acute complaints Objective Data Objective Data Vital Signs: Vital Signs Temp Pulse Resp BP Pulse Ox O2 Del Method O2 Flow Rate 98.6 F 83 16 133/78 H 96 Room Air 2 12/12/23 15:00 12/12/23 15:00 12/12/23 15:00 12/12/23 15:00 12/12/23 15:00 12/12/23 15:09 12/11/23 10:00 Oxygen Flow Rate (L/min) 2 Oxygen Delivery Method Room Air Weight: 64.7 kg Body Mass Index (BMI) 25.2 Intake & Output: Intake and Output for Last 24 Hours 12/10/23 12/11/23 12/12/23 23:59 23:59 23:59 Intake Total 110 / 110 1500 / 1500 350 / 350 Balance 110 / 110 1500 / 1500 350 / 350 Lab / Micro Data 12/12/23 05:55 12/12/23 05:55 Labs: Laboratory Results - last 24 hr 12/12/23 05:55: WBC 10.9, RBC 4.56, Hgb 13.7, Hct 44.1, MCV 96.7, MCH 30.0, MCHC 31.1 L, RDW Std Deviation 50.5 H, RDW Coeff of Neymar 14.1, Plt Count 187, MPV 12.4 H, Immature Gran % (Auto) 0.300, Neut % (Auto) 71.8 H, Lymph % (Auto) 14.3 L, [place] % (Auto) 9.7, Eos % (Auto) 3.5, Baso % (Auto) 0.4, Absolute Neuts (auto) 7.8 H, Absolute Lymphs (auto) 1.56, Nucleated RBC % 0, PT 17.1 H, INR 1.4, S odium 135 L, Potassium 4.0, Chloride 102, Carbon Dioxide 24.0, Anion Gap 9, BUN 8, Creatinine 0.80, Estim Creat Clear Calc 56.67, Est GFR (MDRD) Af Amer 90, Est GFR (MDRD) Non-Af 75, BUN/Creatinine Ratio 10.0, Glucose 140 H, Calcium 9.0 Physical Exam Narrative General: Wakes up, seems slightly confused at times HEENT: Atraumatic Eyes: Anicteric, normal conjunctiva, extraocular movements grossly intact Neck: Supple Respiratory: Clear to auscultation bilaterally, normal respiratory effort Cardiovascular: Regular rate GI: Soft, nontender, nondistended Extremities: No edema Musculoskeletal: Moving all extremities Neuro: No overt focal neurological deficits Skin: No rashes appreciated Psych: Cooperative Assessment & Plan Assessment/Plan (1) Generalized weakness: PLAN: Plan #Debility and weakness due to mechanical fall * Patient has been getting weaker at home and says she has had numerous falls over the last few months. * She fell earlier this morning while getting up to go to the bathroom. Her knees gave when she just tripped and fell. She landed on her left side. She did not hit her head but hit her shoulder and her ribs. * CT of the brain showed no acute intracranial pathology. X-ray of the left shoulder showed no evidence of any fracture. * X-ray of the ribs was normal and chest x-ray showed no acute cardiopulmonary disease with no evidence of fracture or pneumothorax. * She says she is being worked up on outpatient basis for Alzheimer's dementia. She has she has been getting weaker at home and has not been able to carry out her activities of daily living. * Consult PT OT. Fall precautions. * Will likely need placement. Urine cultures pending. -12/11: Patient for placement, continue PT/OT. Supportive care, pre-CERT started #Probable UTI * WBC trended upwards yesterday to 15.7. Patient started on IV ceftriaxone. Urinalysis did not show bacteria but showed elevated WBC and elevated leukocyte esterase. * Urine cultures pending. WBC has trended down to 10.7 today. -12/11: Patient overall is improved on Rocephin, still awaiting urine culture #History of paroxysmal A-fib/history of pacemaker with sick sinus syndrome * On Coumadin. INR today is 1.5 * Also on metoprolol. -12/11: Patient's INR is remained low, uptitrating Coumadin #GERD -Continue PPI DVT prophylaxis: Lovenox given patient does not have therapeutic INR Time spent in the patient's overall evaluation,decision-making process, review of diagnostic data, adjustment of management, discussion with other providers, nursing nursing and ancillary staff involved in patient's care documentation, 35 minutes Charges/Coding Visit Charges Inpatient E&M: 16714 Subs Hosp L2
[2023-12-12] MEDS: Acetaminophen 325 MG Tablet 650 MG PO (20:20)
[2023-12-12] MEDS: 0.9% Saline Lock 10 ML Syringe IV (20:24)
[2023-12-12] MEDS: Glucerna Shake 120 ML LIQUID PO (20:24)
[2023-12-12] MEDS: Montelukast 10 MG Tablet PO (20:24)
[2023-12-12] MEDS: Pravastatin 80 MG Tablet PO (20:24)
[2023-12-13] VITALS (7 sets, daily range): BP systolic 157–178; BP diastolic 79–91; PULSE 83–109; RESP 18; TEMP 36.1–36.4; O2SAT 92–96
[2023-12-13] MEDS: Dicyclomine 10 MG Capsule 20 MG PO ×2 (05:36→13:28)
[2023-12-13 06:02] LABS: Hematocrit 42.8 % (37-47); Hemoglobin 13.5 g/dL (12.0-15.0); Mean Corp Hgb Conc 31.5 g/dL (32-36); Mean Corpuscular Hgb 30.3 pg (27.0-32.0); Mean Platelet Vol. 11.8 fl (6.2-12.0); Platelet Count 201 K/mm3 (150-450); RBC Distribution Width CV 14.1 % (11.6-14.6); RBC Distribution Width SD 49.3 fl (35.1-43.9); Red Blood Count 4.46 M/mm3 (4.2-5.4); White Blood Count 6.8 K/mm3 (4.4-11.0)
[2023-12-13 06:12] LABS: International Normalized Ratio 1.6; Prothrombin Time (Protime)PT. 18.6 SECONDS (11.7-14.9)
[2023-12-13 06:26] LABS: Anion Gap 6 (5-15); BUN 9 mg/dL (7-18); Calcium,Total 8.9 mg/dL (8.5-10.1); Chloride 102 mmol/L (98-107); Creatinine, Serum 0.69 mg/dL (0.55-1.02); EST Glomerular Filtration Rate 88 mL/min (>60); Est Glom Filt Rate - Afr Amer 107 mL/min (>60); Estimated Creatinine Clearance 56.67 ml/min; Glucose 119 mg/dL (74-106); Potassium 3.8 mmol/L (3.5-5.1); Sodium Level 134 mmol/L (136-145)
--- NOTE | 2023-12-13 09:30 | CASEMGMT ---
Discharge Planning Updates sent to [facility] via [facility]. Alejandra Chowdhury DC Planning Asst.
--- NOTE | 2023-12-13 10:01 | CASEMGMT ---
Discharge Planning Syl[facility] has obtained auth to admit. SW updated. Alejandra Chowdhury DC Planning Asst.
--- NOTE | 2023-12-13 10:02 | CASEMGMT ---
Patient was approved for [facility]. SW notified physician. Pamela Rodgers JET MANPerry SEPULVEDA
[2023-12-13] MEDS: Magnesium Chloride 64 MG Delay Rel.Tablet 128 MG PO (10:30)
[2023-12-13] MEDS: Potassium Chloride Oral Tablet 20 MEQ 40 MEQ PO (10:30)
[2023-12-13] MEDS: Lisinopril 2.5 MG Tablet PO (10:30)
[2023-12-13] MEDS: Aspirin 81 MG TAB.CHEW PO (10:30)
[2023-12-13] MEDS: Pantoprazole Sodium 40 MG Tablet PO (10:31)
[2023-12-13] MEDS: Isosorbide Mononitrate 30 MG Tablet PO (10:31)
[2023-12-13] MEDS: Tolterodine Tartrate 2 MG CAP.SA PO (10:31)
[2023-12-13] MEDS: Metoprolol Tartrate 25 MG Tablet 12.5 MG PO (10:31)
[2023-12-13] MEDS: Loratadine 10 MG Tablet PO (10:31)
[2023-12-13] MEDS: Enoxaparin 40 MG/0.4 ML Syringe SC (10:32)
--- NOTE | 2023-12-13 10:41 | CASEMGMT ---
SRINIVASA let patient know her insurance approved her for [facility]. Patient asked SW to call her brother and tell him to bring her clothes. SW called patient's brother Rey. SRINIVASA let Rey know that patient was approved for [facility] and physician will likely d/c patient today. Rey said he will be in soon with clothes for patient. Plan: d/c to [facility] under skilled level of care. Pamela Rodgers WOODS OVERSEERPerry SEPULVEDA
--- NOTE | 2023-12-13 12:10 | PCM.TXEXTCAR ---
Diet Diet Order/Speech Therapy: 12/10/23 18:29 Diet: Regular - General Dietary Modifications:: Gluten Free Routine Orders/Code Status Suppository Type: Dulcolax 10mg Suppository Frequency: Daily PRN Routine Lab Work: INR (2 days) Therapies Physical Therapy: Eval and Treat Occupational Therapy: Eval and Treat Problem/Diagnosis (1) Generalized weakness: Status: Acute Code(s): R53.1 - Weakness Plan #Debility and weakness due to mechanical fall #History of paroxysmal A-fib/history of pacemaker with sick sinus syndrome #GERD 73-year-old female presented 12/08 with weakness and fall. She went to get out of her bed and her knees gave way and she fell. Has progressively gotten weaker over the past few months and is being worked up for Alzheimer's dementia on outpatient basis. Roughly 7 falls in 3 months. Aside from weakness she had no focal complaints. She was given IV fluids and UA was concerning for possible UTI so she was started on Rocephin. Patient did improve somewhat with her weakness but continued to have overall difficulties and it was deemed she would benefit from correction facility. Patient was agreeable. On day of discharge reports still feeling little bit weak overall but better than when she came in, has no new or acute focal complaints. Ucx grew mixed gram positive organisms indicative of a contaminant and given patient never had any symptoms antibiotics to be stopped. Suspect patient felt somewhat better given the IV fluids, there is no other identifiable nidus of infection or localizing symptoms that would warrant continuation of antibiotics. During patient's hospitalization additionally her Coumadin was adjusted, will need repeat INR in 2 to 3 days. Allergies/Procedures Done in Hospital Allergies ciprofloxacin (From Cipro) Allergy (Intermediate, Verified 12/09/23 10:32) Itching atorvastatin calcium (From Lipitor) Allergy (Verified 12/09/23 10:32) Hives gluten Allergy (Verified 12/09/23 10:32) Food Allergy metoprolol succinate (From Toprol XL) Allergy (Verified 12/09/23 10:32) Rash niacin (From Niaspan Extended-Release) Allergy (Verified 12/09/23 10:32) Rash Penicillins Allergy (Verified 12/09/23 10:32) Rash Sulfa (Sulfonamide Antibiotics) Allergy (Verified 12/09/23 10:32) Itching regadenoson Adverse Reaction (Severe, Verified 12/09/23 10:32) Anaphylaxis it almost killed me metronidazole Adverse Reaction (Intermediate, Verified 12/09/23 10:32) lightheaded and ataxia Type of Care/Length of Stay Estimated LOS: Convalescent Care Less Than 30 days Type of Care Needed: Skilled Rehab Potential: Fair Prognosis: Fair Additional Orders/Day of Discharge Day of Discharge: 12/13/23 Dietary and Speech Recommendations Dietitian Recommendations/Changes: 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 Will order 4 oz glucerna shake 4x/day w/ medpass for increased nutrition if consumed Will interview pt re: diet/wt hx/ SMBG, etc at time of follow and will provide additional rec/diet education as indicated Discharge Plan Admission Admit Date/Time: 12/09/23 13:36 Primary Reason for Your Visit: Generalized weakness Attending Provider: Radha Orozco Primary Care Provider: Erasmo Pierre Consulting Providers: Lala Don Instructions Patient Instructions: ED Fall Prevention Additional Instructions / Restrictions: DISCHARGE INSTRUCTIONS PLEASE READ *Please take this with you to your next doctors appointment* -Your Coumadin has been increased to 2.5 mg daily due to persistently subtherapeutic INR. You will need to have your INR rechecked in 2-3 days -Please call your primary care provider's office upon discharge to schedule a hospital follow up within 1 week. -For any concerning signs or symptoms please call 911 or proceed to the nearest emergency department Discharge Orders/Prescriptions Prescriptions: Continued montelukast 10 mg tablet 10 mg PO QPM (DME) handicap placard See Rx Instructions .Route .MEDSUPPLY Qty: 1 0RF Rx Instructions: As directed -Life time exp. 5 years Dx: generalized debility fesoterodine [Toviaz] 4 mg tablet extended release 24 hr 4 mg PO DAILY aspirin 81 MG tablet,chewable 81 mg PO DAILY@0800 cetirizine [Allergy Relief (cetirizine)] 10 mg tablet 10 mg PO DAILY ketoconazole 2 % shampoo 1 applic topical .twice a week nitroglycerin 0.4 mg tablet, sublingual 0.4 mg SUBLINGUAL Q5-15M Rx Instructions: until response; do not exceed 3 doses per episode magnesium 250 mg tablet 420 mg PO BID Patient Comments: pt got it off the shelf potassium chloride 10 mEq tablet,ER particles/crystals See Rx Instructions .ROUTE .COMPLEX Qty: 60 10RF Dose Instruction: TAKE TWO (2) TABLETS BY MOUTH DAILY Rx Instructions: TAKE TWO (2) TABLETS BY MOUTH DAILY enalapril maleate 2.5 mg tablet 2.5 mg PO DAILY Qty: 90 3RF pantoprazole 40 mg tablet,delayed release (DR/EC) 40 mg PO DAILY Qty: 90 3RF pravastatin 80 mg tablet 80 mg PO QHS Qty: 90 3RF isosorbide mononitrate 30 mg tablet extended release 24 hr 30 mg PO DAILY Qty: 90 3RF dicyclomine 20 mg tablet 20 mg PO TID Qty: 270 1RF Changed warfarin 2.5 mg tablet 2.5 mg PO DAILY 30 Days Qty: 0 0RF Protocol: Dose Management Condition: Tuesday Dose/Route: 2.5 mg Instruction: 1 x 2.5 mg tablet Condition: Tuesday Dose/Route: 1.25 mg Instruction: 0.5 x 2.5 mg tablets Condition: Tuesday Dose/Route: 1.25 mg Instruction: 0.5 x 2.5 mg tablets Condition: Tuesday Dose/Route: 1.25 mg Instruction: 0.5 x 2.5 mg tablets Condition: Dose/Route: 1.25 mg Instruction: 0.5 x 2.5 mg tablets Condition: Tuesday Dose/Route: 2.5 mg Instruction: 1 x 2.5 mg tablet Condition: Tuesday Dose/Route: 2.5 mg Instruction: 1 x 2.5 mg tablet Protocol Text: Adjustment Start Date: Tuesday11/18/23 INR Value: 1.1 INR Date: 11/18/23 Recheck Date: 11/21/23 Patient Comments: per patient Rx Instructions: 2.5 mg daily metoprolol tartrate 25 mg tablet 12.5 mg PO BID Qty: 30 0RF Discontinued potassium chloride 40 mEq/15 mL liquid 40 meq PO BID 5 Days Qty: 150 0RF meclizine 25 mg tablet 25 mg PO Q8H PRN PRN (Reason: Dizziness) Qty: 20 0RF warfarin 5 mg tablet 5 mg PO .COMPLEX Qty: 90 3RF Protocol: Dose Management Condition: Tuesday Dose/Route: 2.5 mg Instruction: 1 x 2.5 mg tablet Condition: Tuesday Dose/Route: 1.25 mg Instruction: 0.5 x 2.5 mg tablets Condition: Tuesday Dose/Route: 1.25 mg Instruction: 0.5 x 2.5 mg tablets Condition: Tuesday Dose/Route: 1.25 mg Instruction: 0.5 x 2.5 mg tablets Condition: Dose/Route: 1.25 mg Instruction: 0.5 x 2.5 mg tablets Condition: Tuesday Dose/Route: 2.5 mg Instruction: 1 x 2.5 mg tablet Condition: Tuesday Dose/Route: 2.5 mg Instruction: 1 x 2.5 mg tablet Protocol Text: Adjustment Start Date: Tuesday11/18/23 INR Value: 1.1 INR Date: 11/18/23 Recheck Date: 11/21/23 Rx Instructions: 5 mg orally take one tab bymouth every Tue and then take a 2.5 mg tab the other days or as directed; Referrals / Follow Up: Erasmo Pierre MD [Primary Care Provider] - Within 1 Week Disposition Disposition (needs filled in before D/C Order can be placed): [facility]
--- NOTE | 2023-12-13 12:34 | PCM.DC.SUM ---
Providers Date of Admission: 12/09/23 Date of Discharge: 12/13/23 Primary Care Physician: Dr. Erasmo Pierre MD Reason For Visit: WEAKNESS, DEBILITY, UNSTEADY GAIT Diagnosis Discharge Diagnosis (1) Generalized weakness: Status: Acute Code(s): R53.1 - Weakness Plan #Debility and weakness due to mechanical fall #History of paroxysmal A-fib/history of pacemaker with sick sinus syndrome #GERD Medications at Discharge Home Medications aspirin 81 mg chewable tablet 81 mg PO DAILY@0800 health maintenance 08/18/18 montelukast 10 mg tablet 10 mg PO QPM allergy 02/22/19 handicap placard #1 ea 10/13/20 fesoterodine 4 mg tablet,extended release 24 hr (Toviaz) 4 mg PO DAILY 02/23/22 potassium chloride 10 mEq tablet,extended release(part/cryst) See Rx Instructions .Route .COMPLEX #60 tabs 03/31/23 enalapril maleate 2.5 mg tablet 2.5 mg PO DAILY #90 tabs 06/29/23 pantoprazole 40 mg tablet,delayed release 40 mg PO DAILY stomach #90 tabs 06/29/23 pravastatin 80 mg tablet 80 mg PO QHS #90 tabs 07/08/23 isosorbide mononitrate 30 mg tablet,extended release 24 hr 30 mg PO DAILY #90 tabs 07/14/23 cetirizine 10 mg tablet (Allergy Relief (cetirizine)) 10 mg PO DAILY 11/17/23 dicyclomine 20 mg tablet 20 mg PO TID #270 tabs 11/22/23 ketoconazole 2 % shampoo 1 applic topical .twice a week sores 12/09/23 magnesium 250 mg tablet 420 mg PO BID supplement 12/09/23 nitroglycerin 0.4 mg sublingual tablet 0.4 mg sublingual Q5-15M Chest Pain 12/09/23 metoprolol tartrate 25 mg tablet 12.5 mg (1/2 x 25 mg) PO BID #30 tabs 12/13/23 warfarin 2.5 mg tablet 2.5 mg PO DAILY blood thinner 30 days #0 tabs 12/13/23 Hospital Course Summary of Care Provided Minutes Spent on Discharge: 26 Hospital Course: 73-year-old female presented 12/08 with weakness and fall. She went to get out of her bed and her knees gave way and she fell. Has progressively gotten weaker over the past few months and is being worked up for Alzheimer's dementia on outpatient basis. Roughly 7 falls in 3 months. Aside from weakness she had no focal complaints. She was given IV fluids and UA was concerning for possible UTI so she was started on Rocephin. Patient did improve somewhat with her weakness but continued to have overall difficulties and it was deemed she would benefit from nursing home facility. Patient was agreeable. On day of discharge reports still feeling little bit weak overall but better than when she came in, has no new or acute focal complaints. Ucx grew mixed gram positive organisms indicative of a contaminant and given patient never had any symptoms antibiotics to be stopped. Suspect patient felt somewhat better given the IV fluids, there is no other identifiable nidus of infection or localizing symptoms that would warrant continuation of antibiotics. During patient's hospitalization additionally her Coumadin was adjusted, will need repeat INR in 2 to 3 days. Physical Exam Narrative General: Wakes up, conversive HEENT: Atraumatic Eyes: Anicteric, normal conjunctiva, extraocular movements grossly intact Neck: Supple Respiratory: Clear to auscultation bilaterally, normal respiratory effort Cardiovascular: Regular rate GI: Soft, nontender, nondistended Extremities: No edema Musculoskeletal: Moving all extremities Neuro: No overt focal neurological deficits Skin: No rashes appreciated Psych: Cooperative Weight / BMI Weight Weight: 64.7 kg Body Mass Index (BMI) 25.2 ABG / Lab / Microbiology Data 12/13/23 05:19 12/13/23 05:19 Laboratory: Laboratory Results - last 24 hr 12/13/23 05:19: WBC 6.8, RBC 4.46, Hgb 13.5, Hct 42.8, MCV 96.0, MCH 30.3, MCHC 31.5 L, RDW Std Deviation 49.3 H, RDW Coeff of Neymar 14.1, Plt Count 201, MPV 11.8, PT 18.6 H, INR 1.6, Sodium 134 L, Potassium 3.8, Chloride 102, Carbon Dioxide 26.0, Anion Gap 6, BUN 9, Creatinine 0.69, Estim Creat Clear Calc 56.67, Est GFR (MDRD) Af Amer 107, Est GFR (MDRD) Non-Af 88, BUN/Creatinine Ratio 13.0, Glucose 119 H, Calcium 8.9 Microbiology: Microbiology 12/11/23 04:41 Urine, Clean Catch Urine Culture - Final Mixed Gram Positive Organisms D/C Instructions Discharge Diet: - (DASH diet) Discharge Activity: - (Increase activity as tolerated) Meaningful Use Info Meaningful Use Meaningful Use Diagnoses (Choose all that apply): None applicable Ischemic Stroke Statin Dosing Therapy Reference: STATIN DOSE THERAPY REFERENCE: * Patients > 75 years receive moderate or high dose statin therapy. * Patients 75 years or YOUNGER should receive HIGH intensity statin dose unless contraindicated. You will be required to document reason for non-treatment if statin daily dose does not meet guidelines. HIGH DOSE STATIN THERAPY DAILY Atorvastatin > than or = to 40 mg Rosuvastatin > than or = to 20 mg Amlodipine + Atorvastatin > than or = to 2.5/40 mg Ezetimibe + Simvastatin 10/80 mg Simvastatin 80mg Discharge Plan Admission Admit Date/Time: 12/09/23 13:36 Primary Reason for Your Visit: Generalized weakness Attending Provider: Radha Orozco Primary Care Provider: Erasmo Pierre Consulting Providers: Lala Don Instructions Patient Instructions: ED Fall Prevention Additional Instructions / Restrictions: DISCHARGE INSTRUCTIONS PLEASE READ *Please take this with you to your next doctors appointment* -Your Coumadin has been increased to 2.5 mg daily due to persistently subtherapeutic INR. You will need to have your INR rechecked in 2-3 days -Please call your primary care provider's office upon discharge to schedule a hospital follow up within 1 week. -For any concerning signs or symptoms please call 911 or proceed to the nearest emergency department Discharge Orders/Prescriptions Prescriptions: Continued montelukast 10 mg tablet 10 mg PO QPM (DME) handicap placard See Rx Instructions .Route .MEDSUPPLY Qty: 1 0RF Rx Instructions: As directed -Life time exp. 5 years Dx: generalized debility fesoterodine [Toviaz] 4 mg tablet extended release 24 hr 4 mg PO DAILY aspirin 81 MG tablet,chewable 81 mg PO DAILY@0800 cetirizine [Allergy Relief (cetirizine)] 10 mg tablet 10 mg PO DAILY ketoconazole 2 % shampoo 1 applic topical .twice a week nitroglycerin 0.4 mg tablet, sublingual 0.4 mg SUBLINGUAL Q5-15M Rx Instructions: until response; do not exceed 3 doses per episode magnesium 250 mg tablet 420 mg PO BID Patient Comments: pt got it off the shelf potassium chloride 10 mEq tablet,ER particles/crystals See Rx Instructions .ROUTE .COMPLEX Qty: 60 10RF Dose Instruction: TAKE TWO (2) TABLETS BY MOUTH DAILY Rx Instructions: TAKE TWO (2) TABLETS BY MOUTH DAILY enalapril maleate 2.5 mg tablet 2.5 mg PO DAILY Qty: 90 3RF pantoprazole 40 mg tablet,delayed release (DR/EC) 40 mg PO DAILY Qty: 90 3RF pravastatin 80 mg tablet 80 mg PO QHS Qty: 90 3RF isosorbide mononitrate 30 mg tablet extended release 24 hr 30 mg PO DAILY Qty: 90 3RF dicyclomine 20 mg tablet 20 mg PO TID Qty: 270 1RF Changed warfarin 2.5 mg tablet 2.5 mg PO DAILY 30 Days Qty: 0 0RF Protocol: Dose Management Condition: Tuesday Dose/Route: 2.5 mg Instruction: 1 x 2.5 mg tablet Condition: Tuesday Dose/Route: 1.25 mg Instruction: 0.5 x 2.5 mg tablets Condition: Tuesday Dose/Route: 1.25 mg Instruction: 0.5 x 2.5 mg tablets Condition: Tuesday Dose/Route: 1.25 mg Instruction: 0.5 x 2.5 mg tablets Condition: Dose/Route: 1.25 mg Instruction: 0.5 x 2.5 mg tablets Condition: Tuesday Dose/Route: 2.5 mg Instruction: 1 x 2.5 mg tablet Condition: Tuesday Dose/Route: 2.5 mg Instruction: 1 x 2.5 mg tablet Protocol Text: Adjustment Start Date: Tuesday11/18/23 INR Value: 1.1 INR Date: 11/18/23 Recheck Date: 11/21/23 Patient Comments: per patient Rx Instructions: 2.5 mg daily metoprolol tartrate 25 mg tablet 12.5 mg PO BID Qty: 30 0RF Discontinued potassium chloride 40 mEq/15 mL liquid 40 meq PO BID 5 Days Qty: 150 0RF meclizine 25 mg tablet 25 mg PO Q8H PRN PRN (Reason: Dizziness) Qty: 20 0RF warfarin 5 mg tablet 5 mg PO .COMPLEX Qty: 90 3RF Protocol: Dose Management Condition: Tuesday Dose/Route: 2.5 mg Instruction: 1 x 2.5 mg tablet Condition: Tuesday Dose/Route: 1.25 mg Instruction: 0.5 x 2.5 mg tablets Condition: Tuesday Dose/Route: 1.25 mg Instruction: 0.5 x 2.5 mg tablets Condition: Tuesday Dose/Route: 1.25 mg Instruction: 0.5 x 2.5 mg tablets Condition: Dose/Route: 1.25 mg Instruction: 0.5 x 2.5 mg tablets Condition: Tuesday Dose/Route: 2.5 mg Instruction: 1 x 2.5 mg tablet Condition: Tuesday Dose/Route: 2.5 mg Instruction: 1 x 2.5 mg tablet Protocol Text: Adjustment Start Date: Tuesday11/18/23 INR Value: 1.1 INR Date: 11/18/23 Recheck Date: 11/21/23 Rx Instructions: 5 mg orally take one tab bymouth every Tue Sat Sun Tue and then take a 2.5 mg tab the other days or as directed; Referrals / Follow Up: Erasmo Pierre MD [Primary Care Provider] - Within 1 Week Disposition Disposition (needs filled in before D/C Order can be placed): Assisted Facility Charges/Coding Visit Charges Inpatient E&M: 34414 Disch Hosp
--- NOTE | 2023-12-13 12:47 | CASEMGMT ---
SW completed a PASRR on [employer] system as patient is observation status. Plan: d/c to [facility] under skilled level of care on a PASRR. Physicians will transport patient. Pamela SEPULVEDA
--- NOTE | 2023-12-13 13:09 | CASEMGMT ---
Discharge Planning Discharge orders, signed med list, and transport time sent to [facility]. Physicians will transport patient by wheelchair at 4p. Nursing, SW, and patient updated. VM left for pts brother (Rey). Alejandra Chowdhury DC Planning Asst.
--- NOTE | 2023-12-13 13:25 | CHAPLAIN ---
Type of Pastoral Visit _x__ Initial Visit ___ Follow-up Visit ___ On-call Visit ___ General Patient Visit ___ Spiritual Assessment ___ Family Conference ___ Bereavement ___ Rapid Response ___ Code Blue ___ Other (describe below) Pastoral Care Referral From _x__ Patient _x__ Family ___ Nurse ___ Physician ___ Regional Recruiter ___ Macerator Operator ___ Other (describe below) Sacrament/Intervention _x__ Active listening ___ Anointing ___ Pentecostal ___ Bereavement ___ Communion _x__ Yuridia exploration ___ ___ Life review _x__ Prayer ___ Reconciliation ___ Sacrament of Sick _x__ Supportive presence ___ Wedding ___ Other (describe below) Pastoral Comments patient and family members are in the room; pt will be going to SNF for a time to rehab and she talks about that; family trying to make that a positive thought; time to listen, support, ask questions about her coping abilities and sources of help; pt is spiritual but not christian; family members speak of their yuridia in God; presence and prayer given
--- NOTE | 2023-12-13 13:49 | PHA.DC_ITS ---
Pharmacy ID Med Reconciliation Pharmacy Service has performed discharge medication reconciliation for this patient. Discharge to [facility], medications reviewed, The patient's discharge medication list was reviewed for discrepancies and discrepancies were resolved. Medications at Discharge Home Medications aspirin 81 mg chewable tablet 81 mg PO DAILY@0800 health maintenance 08/18/18 montelukast 10 mg tablet 10 mg PO QPM allergy 02/22/19 handicap placard #1 ea 10/13/20 fesoterodine 4 mg tablet,extended release 24 hr (Toviaz) 4 mg PO DAILY 02/23/22 potassium chloride 10 mEq tablet,extended release(part/cryst) See Rx Instructions .Route .COMPLEX #60 tabs 03/31/23 enalapril maleate 2.5 mg tablet 2.5 mg PO DAILY #90 tabs 06/29/23 pantoprazole 40 mg tablet,delayed release 40 mg PO DAILY stomach #90 tabs 06/29/23 pravastatin 80 mg tablet 80 mg PO QHS #90 tabs 07/08/23 isosorbide mononitrate 30 mg tablet,extended release 24 hr 30 mg PO DAILY #90 tabs 07/14/23 cetirizine 10 mg tablet (Allergy Relief (cetirizine)) 10 mg PO DAILY 11/17/23 dicyclomine 20 mg tablet 20 mg PO TID #270 tabs 11/22/23 ketoconazole 2 % shampoo 1 applic topical .twice a week sores 12/09/23 magnesium 250 mg tablet 420 mg PO BID supplement 12/09/23 nitroglycerin 0.4 mg sublingual tablet 0.4 mg sublingual Q5-15M Chest Pain 12/09/23 metoprolol tartrate 25 mg tablet 12.5 mg (1/2 x 25 mg) PO BID #30 tabs 12/13/23 warfarin 2.5 mg tablet 2.5 mg PO DAILY blood thinner 30 days #0 tabs 12/13/23
--- NOTE | 2023-12-13 14:17 | NURSING ---
Report called to nurse Mondragon for pt to be d/c to [facility].
== END 2023-12-13 12:34 | disposition skilled nursing facility (03) ==
LOC: ED 13:57 → PCU 13:57
PROVIDERS: Nurse Practitioner; Admitting Provider Student in an Organized Health Care Education/Training Program; Emergency Provider Emergency Medicine; PCP Family Medicine; Visit Provider Internal Medicine
DX: R53.1 Weakness (principal); J44.89 Other specified chronic obstructive pulmonary disease; I48.0 Paroxysmal atrial fibrillation; E11.9 Type 2 diabetes mellitus without complications; R11.2 Nausea with vomiting, unspecified; R53.81 Other malaise; I25.10 Atherosclerotic heart disease of native coronary artery without angina pectoris; I10 Essential (primary) hypertension; R27.0 Ataxia, unspecified; Z79.82 Long term (current) use of aspirin; R41.82 Altered mental status, unspecified; Z79.01 Long term (current) use of anticoagulants; E78.00 Pure hypercholesterolemia, unspecified; Z87.891 Personal history of nicotine dependence; Z23 Encounter for immunization; Z95.0 Presence of cardiac pacemaker; K21.9 Gastro-esophageal reflux disease without esophagitis; Z79.899 Other long term (current) drug therapy; Z91.81 History of falling; G89.29 Other chronic pain; R29.6 Repeated falls
CPT/HCPCS: 36415; 70450; 71045; 71101; 73030; 74018; 74174; 80048; 80053; 81001; 83690; 83735; 83880; 84484; 85025; 85027; 85610; 87086; 87088; 90662; 93005; 94668; 96365; 96366; 96372; 96375; 97116; 97162; 97166; 97530; 97535; 99221; 99284; Q9967; A4216; G0378; J2405

== ENCOUNTER → 2023-12-22 | Outpatient (CLI) | payer MEDICARE, MEDICAID, SELFPAY ==
--- NOTE | 2023-12-22 08:17 | AAVD_ITS ---
Reason For Study: Atherosclerosis Aorta Measurements Aorta Doppler Measurements Proximal aorta measures1.55 x 1.55cm. in cross- Peak systolic flow velocities within the proximal sectional axis. aorta measure 33.9 cm/sec. Proximal aorta measures1.56cm. in longitudinal Peak systolic flow velocities within the mid aorta axis. measure 44.3 cm/sec. Mid aorta measures1.45 x 1.43cm. in cross- Peak systolic flow velocities within the distal sectional axis. aorta measure 75.5 cm/sec. Mid aorta measures1.41cm. in longitudinal axis. Distal aorta measures0.93 x 0.95cm. in cross- sectional axis. Distal aorta measures0.93cm. in longitudinal axis. Left Iliac Artery Left iliac artery measures 0.53 x 0.53 cm. in the cross-sectional axis. Left iliac artery measures 0.54 cm. in the longitudinal axis. Peak systolic velocity in the left iliac artery measures 357.1 cm/sec. Right Iliac Artery Right iliac artery measures 0.42 x 0.40 cm. in the cross-sectional axis. Right iliac artery measures 0.46 cm. in the longitudinal axis. Peak systolic velocity in the right iliac artery measures 239 cm/sec. Procedure Aorta IVC Iliac vasculature or bypass grafts [id number]. Exam performed in department. VL/Abd Aortic/IVC Duplex scan Interpretation Summary No aneurysm noted. Bilateral common iliac stenosis. Ordering Physician: William Kraus Referring Physician: Erasmo Pierre Performed By: Socorro Hernández RVT
--- NOTE | 2023-12-22 08:17 | ART_ITS ---
Reason For Study: PVD Procedure A bilateral lower extremity continuous wave Doppler with analog waveform analysis and ankle brachial indexes. Left Segmental Pressures Left brachial= 139mmHg. Left posterior tibial artery = 113mmHg. Left dorsalis pedis artery = 114mmHg. Left digit = 111 mmHg. The left dorsalis pedis waveforms are biphasic. The left posterior tibial artery waveforms are biphasic. Right Segmental Pressures Right brachial= 135mmHg. Right posterior tibial artery = 133mmHg. Right dorsalis pedis artery = 128mmHg. Right digit = 136 mmHg. The right dorsalis pedis waveforms are triphasic. The right posterior tibial artery waveforms are triphasic. Indices The right ankle brachial index by the dorsalis pedis is 0.92. The right ankle brachial index by the posterior tibial artery is 0.96. The right digital-brachial index is 0.98. The left ankle brachial index by the dorsalis pedis is 0.82. The left ankle brachial index by the posterior tibial artery is 0.81. The left digital-brachial index is 0.80. VL/Ankle Brachial Index Interpretation Summary Right RANJAN _, normal. The left resting ankle-brachial index appears mildly abnor mal. Ordering Physician: William Kraus Referring Physician: Erasmo Pierre Performed By: Socorro Hernández RVT
--- NOTE | 2023-12-22 08:18 | CDU_ITS ---
Reason For Study: Carotid stenosis Rt. Velocities/BP Lt. Velocities/BP Prox CCA 51.3/13.5 cm/sec. Prox CCA 66.4/18.2 cm/sec. Mid CCA 46.6/14.5 cm/sec. Mid CCA 57/18.2 cm/sec. Dist CCA 38.8/10.3 cm/sec. Dist CCA 88.8/26.2 cm/sec. Prox ICA 56/17.3 cm/sec. Prox ICA 106.5/29.8 cm/sec. Mid ICA 66.4/25.8 cm/sec. Mid ICA 291.5/95.3 cm/sec. Dist ICA 84.4/28.6 cm/sec. Dist ICA 161.5/31.9 cm/sec. Rt. ICA/CCA = 1.81. Lt. ICA/CCA = 5.11. Prox ECA 193.8/16 cm/sec. Prox ECA 64.5/4.1 cm/sec. Rt. Vert. 57/14.5 cm/sec. Lt. Vert. 68.7/19.9 cm/sec. Right Extracranial There is homogeneous, smooth atherosclerotic plaque noted in the right common carotid artery. There is heterogeneous, irregular atherosclerotic plaque noted in the right internal carotid artery. There is heterogeneous, irregular atherosclerotic plaque noted in the right external carotid artery. Antegrade flow is noted in the right vertebral artery. Left Extracranial There is homogeneous, irregular atherosclerotic plaque noted in the left common carotid artery. There is heterogeneous, irregular atherosclerotic plaque noted in the left internal carotid artery. There is heterogeneous, irregular atherosclerotic plaque noted in the left external carotid artery. Antegrade flow is noted in the left vertebral artery. Procedure Carotid Duplex [id number]. This is a Carotid Duplex examination using B-mode, color flow and specral Doppler. Preliminary report given to Dr. Kraus Staff. Exam performed in department. VL/Carotid Duplex Ultrasound Interpretation Summary Mild (<50%) stenosis right extracranial internal carotid. Severe (>70%) stenosi s left extracranial internal carotid. Patent and antegrade vertebrals bilaterally. Ordering Physician: William Kraus Referring Physician: Erasmo Pierre Performed By: Socorro Hernández RVT
== END | disposition home or self-care (01) ==
LOC: CVS 08:16
PROVIDERS: PCP Family Medicine; Referring Provider Surgery Vascular Surgery; Visit Provider Surgery Vascular Surgery
DX: I65.23 Occlusion and stenosis of bilateral carotid arteries (principal); I77.1 Stricture of artery; I73.9 Peripheral vascular disease, unspecified; I10 Essential (primary) hypertension; F17.200 Nicotine dependence, unspecified, uncomplicated; Z86.73 Personal history of transient ischemic attack (TIA), and cerebral infarction without residual deficits
CPT/HCPCS: 93880; 93922; 93978

== ENCOUNTER → 2024-02-16 | Outpatient (CLI) | payer MEDICARE, MEDICAID, SELFPAY ==
--- NOTE | 2024-02-16 14:32 | CT_ITS ---
EXAM: CT ANGIOGRAPHY ABDOMEN AND PELVIS WITH RUNOFF TO THE LOWER EXTREMITIES WITH INTRAVENOUS CONTRAST CLINICAL INDICATION: Atherosclerosis of [place] arteries of extremities TECHNIQUE: Helically acquired angiography images were obtained of the abdomen, pelvis and lower extremities with intravenous contrast using CTA runoff protocol. This CT exam was performed using one or more of the following dose reduction techniques: automated exposure control, adjustment of the mA and/or kV according to patient size, and/or use of iterative reconstruction technique. MIP reconstructed images were created and reviewed. CONTRAST: 100 cc of Isovue-370 IV. RADIATION DOSE: CTDIvol = 5.52 mGy, DLP = 1039.80 mGy-cm COMPARISON: No relevant prior studies available. FINDINGS: VASCULATURE: AORTA: Moderate atherosclerotic disease of the infrarenal abdominal aorta without dissection or aneurysm. CELIAC TRUNK AND MESENTERIC ARTERIES: No acute findings. No occlusion or significant stenosis. No dissection. RENAL ARTERIES: No acute findings. No occlusion or significant stenosis. No dissection. RIGHT ILIAC ARTERIES: Extensive atherosclerotic disease involving the right common iliac artery with less than 50% diameter stenosis. Scattered atherosclerotic disease right external iliac artery without hemodynamically significant stenosis. RIGHT FEMORAL/POPLITEAL ARTERIES: Scattered atherosclerotic disease proximal right common and superficial femoral arteries without hemodynamically significant stenosis. RIGHT CALF/FOOT ARTERIES: No acute findings. Normal right lower extremity runoff. LEFT ILIAC ARTERIES: Extensive atherosclerotic disease involving the left common iliac artery with probable greater than 50% diameter stenosis proximally. Scattered atherosclerotic disease left external iliac artery without hemodynamically significant stenosis. LEFT FEMORAL/POPLITEAL ARTERIES: Scattered atherosclerotic disease proximal left common and superficial femoral arteries without hemodynamically significant stenosis. LEFT CALF/FOOT ARTERIES: No acute findings. Normal left lower extremity runoff. LOWER THORAX: Unremarkable. Lung bases are clear. No cardiomegaly. No significant pericardial effusion. ABDOMEN: LIVER: Unremarkable. Homogeneous. No focal mass. GALLBLADDER AND BILE DUCTS: Cholecystectomy. No intra- or extrahepatic biliary ductal dilation. PANCREAS: Unremarkable. No focal cystic or solid mass. SPLEEN: Unremarkable. Normal size without focal cystic or solid mass. ADRENALS: Unremarkable. No nodules. KIDNEYS AND URETERS: Simple right renal cyst. No follow-up of this simple cyst is necessary. Normal renal size and position. No hydronephrosis. STOMACH AND BOWEL: Unremarkable. No stomach or bowel distention. No focal inflammatory change. PELVIS: APPENDIX: No evidence of acute appendicitis. BLADDER: Unremarkable. REPRODUCTIVE: Unremarkable as visualized. No mass. ABDOMEN, PELVIS and LOWER EXTREMITIES: INTRAPERITONEAL SPACE: Unremarkable. No ascites or other fluid collection. No free air. BONES/JOINTS: Unremarkable. No suspicious lytic or blastic abnormality. SOFT TISSUES: Unremarkable. No discrete abdominal or pelvic wall hernia. LYMPH NODES: Unremarkable. No enlarged lymph nodes. CT/CTA Abd w/Runoff W/WO Contrast IMPRESSION: 1. Extensive atherosclerotic disease involving the left common iliac artery with probable greater than 50% diameter stenosis proximally. 2. Extensive atherosclerotic disease involving the right common iliac artery with less than 50% diameter stenosis. 3. Moderate atherosclerotic disease of the infrarenal abdominal aorta without dissection or aneurysm. 4. Scattered atherosclerotic disease proximal right common and superficial femoral arteries without hemodynamically significant stenosis. 5. Scattered atherosclerotic disease proximal left common and superficial femoral arteries without hemodynamically significant stenosis. 6. Normal right lower extremity runoff. 7. Normal left lower extremity runoff. 8. Cholecystectomy. Electronically Signed: Eder Chung MD at 7:46 EST ,
[2024-02-16 15:07] LABS: CREATININE FINGERSTICK < 1.0 mg/dL (0.55-1.02); EGFR FINGERSTICK > 60.0000 mL/min (>60)
== END | disposition home or self-care (01) ==
LOC: CT 14:31
PROVIDERS: PCP Family Medicine; Referring Provider Surgery Vascular Surgery; Visit Provider Surgery Vascular Surgery
DX: I65.23 Occlusion and stenosis of bilateral carotid arteries (principal); I63.9 Cerebral infarction, unspecified; I70.213 Atherosclerosis of native arteries of extremities with intermittent claudication, bilateral legs; E78.00 Pure hypercholesterolemia, unspecified; I10 Essential (primary) hypertension; M19.90 Unspecified osteoarthritis, unspecified site; F17.210 Nicotine dependence, cigarettes, uncomplicated
CPT/HCPCS: 75635; Q9967

== ENCOUNTER → 2024-06-06 | Outpatient (CLI) | payer MEDICARE, MEDICAID, SELFPAY ==
--- NOTE | 2024-06-06 13:10 | NEURO ---
NCS and/or EMG Patient Report Ordering Doctor: Isaac Talbot DATE OF SERVICE: 06/06/24 Divya presents with complaints of numbness and tingling in the feet and poor balance. Electrodiagnostic findings: Left peroneal motor nerve demonstrates normal distal latency with reduced amplitude and reduced conduction velocity. Right peroneal motor nerve demonstrates normal distal latency and amplitude with reduced conduction velocity. Left tibial motor nerve demonstrates normal distal latency, amplitude and conduction velocity right tibial motor nerve demonstrates normal distal latency, amplitude and conduction velocity. Prolonged left peroneal, right peroneal and right tibial and left tibial F?waves. H?reflexes prolonged bilaterally. Sensory responses are not obtainable. Needle EMG testing was performed in the lower limbs. All muscles tested showed no evidence of denervation with normal motor unit action potentials. Electrodiagnostic impression: This is an abnormal study in the lower limbs. 1. Electrodiagnostic findings suggestive of peripheral polyneuropathy, sensory greater than motor, with evidence of demyelination. 2. No electrodiagnostic evidence for cervical radiculopathy. Multi Select Codes Neurology Neurology Interp Codes: 04144-24 Musc test done w/n test comp (interp) (2) and 18122-50 Nrv cndj test 9-10 studies (interp)
== END | disposition home or self-care (01) ==
LOC: PSN 08:34
PROVIDERS: PCP Internal Medicine
DX: G62.9 Polyneuropathy, unspecified (principal); R20.0 Anesthesia of skin
CPT/HCPCS: 95886; 95911

== ENCOUNTER → 2024-08-30 | Outpatient (CLI) | payer MEDICARE, MEDICAID, SELFPAY ==
[2024-08-30 16:08] LABS: Absolute Lymphocyte Count 1.98 X10^3/uL (0.83-4.51); Absolute Neutrophil Count 4.9 X10^3/uL (2.0-7.7); Basophil# 0.04 X10^3/uL; Basophil% 0.5 % (0-1); Eosinophil# 0.39 X10^3/uL; Eosinophils% 4.9 % (0-5); Hematocrit 33.5 % (37-47); Hemoglobin 10.2 g/dL (12.0-15.0); Lymphocyte # 1.98 X10^3/ul (0.83-4.51); Lymphocyte % 24.6 % (19-41); Mean Corp Hgb Conc 30.4 g/dL (32-36); Mean Corpuscular Hgb 25.8 pg (27.0-32.0); Mean Corpuscular Volume 84.6 fL (81-99); Mean Platelet Vol. 12.6 fl (6.2-12.0); Monocyte% 8.7 % (0-10); NRBC Flagged by Analyzer 0 % (0-5); Neutrophil # 4.91 X10^3/uL (2.7-7.7); Neutrophil % 61.1 % (47-70); Platelet Count 190 K/mm3 (150-450); RBC Distribution Width CV 13.7 % (11.6-14.6); RBC Distribution Width SD 42.6 fl (35.1-43.9); Red Blood Count 3.96 M/mm3 (4.2-5.4)
[2024-08-30 16:37] LABS: Anion Gap 10 (5-15); BUN 16 mg/dL (4-19); BUN/Creat Ratio 12.9 RATIO (10-20); Calcium,Total 8.9 mg/dL (7.6-11.0); Carbon Dioxide 26.7 mmol/L (21.0-32.0); Chloride 100 mmol/L (98-108); EST Glomerular Filtration Rate 48 (>60); Glucose 101 mg/dL (70-99); Magnesium 2.3 mg/dL (1.5-2.2); Potassium 4.3 mmol/L (3.3-5.1); Sodium Level 137 mmol/L (133-145)
== END | disposition home or self-care (01) ==
LOC: LAB 15:31
PROVIDERS: PCP Internal Medicine; Referring Provider Nurse Practitioner Family; Visit Provider Nurse Practitioner Family
DX: I95.9 Hypotension, unspecified (principal)
CPT/HCPCS: 36415; 80048; 83735; 85025

== ENCOUNTER 2024-11-09 18:58 | Emergency (ER) | payer MEDICARE, MEDICAID, SELFPAY ==
[2024-11-09 18:59] VITALS: BP 143/80; PULSE 68; RESP 16; TEMP 36.8; O2SAT 98; BMI 27.2
--- NOTE | 2024-11-09 20:20 | CT_ITS ---
PROCEDURE: SPINE CERVICAL WITHOUT CONTRAS 11/09/2024 REASON FOR EXAM: INJURY/PAIN TECHNIQUE: Procedure Code: CTSPC Modality: CT Procedure: SPINE CERVICAL WITHOUT CONTRAS Coronal and Sagittal reconstruction series were provided. One or more dose reduction techniques were used (e.g., Automated exposure control, adjustment of the mA and/or kV according to patient size, use of iterative reconstruction technique. RADIATION DOSE SUMMARY: CTDlvol: 62 mGy DLP: 1153 mGycm FINDINGS: Normal cervical vertebral body height and alignment. Disc space narrowing at C5-6 and C6-7. No compression deformity. Normal C2 and C1 vertebra. Skull base appears intact. No fractures noted of the pedicles or lamina. No discrete soft tissue masses. CT/Spine Cervical without Contras IMPRESSION: No acute abnormality Reading [facility]
--- NOTE | 2024-11-09 20:20 | CT_ITS ---
PROCEDURE: BRAIN/HEAD WITHOUT CONTRAST 11/09/2024 REASON FOR EXAM: INJURY/PAIN TECHNIQUE: Procedure Code: CTBR Modality: CT Procedure: BRAIN/HEAD WITHOUT CONTRAST Coronal and Sagittal reconstruction series were provided. One or more dose reduction techniques were used (e.g., Automated exposure control, adjustment of the mA and/or kV according to patient size, use of iterative reconstruction technique. RADIATION DOSE SUMMARY: Information not provided COMPARISON: 12/09/2023 FINDINGS: Bony calvarium intact. Sinuses are clear. No intracranial mass or hemorrhage. No edema or hydrocephalus. CT/Brain/Head without Contrast IMPRESSION: No acute abnormality Reading Location[facility]
--- NOTE | 2024-11-09 20:32 | RAD_ITS ---
PROCEDURE: ELBOW MIN 3 VIEWS 11/09/2024 REASON FOR EXAM: INJURY/PAIN TECHNIQUE: Procedure Code: RADEL Modality: DX Procedure: ELBOW MIN 3 VIEWS Laterality: Right COMPARISON: None FINDINGS: Osseous: No acute fracture or malalignment of the right elbow is seen. No bone lesion or periosteal reaction is seen. Soft tissues: No radiographic evidence for significant elbow joint effusion. Soft tissue injury can not be assessed by this technique. RAD/Elbow min 3 Views IMPRESSION: No radiographic evidence of an acute osseous injury or malalignment at the righ t elbow. - Other findings discussed above. Reading Location: [id number]
[2024-11-09 20:45] LABS: Prothrombin Time (Protime)PT. 27.1 SECONDS (11.7-14.9)
[2024-11-09 20:58] VITALS: BP 161/57; PULSE 58; O2SAT 97
[2024-11-09 22:00] VITALS: BP 150/55; PULSE 62; O2SAT 97
--- NOTE | 2024-11-09 22:26 | ED.RN ---
Brother Rey called with update on Pt dispo.
--- NOTE | 2024-11-09 22:28 | EX.ED.GENINJ ---
HPI History of Present Illness Chief Complaint: Fall Narrative Narrative: Patient is a 74-year-old female with history of ataxia, COPD, atrial fibrillation (on Coumadin), sick sinus syndrome status post cardiac pacemaker, ischemic colitis, restless leg syndrome and coronary artery disease presenting for evaluation after mechanical fall. Patient states she was trying to try on a sweater while seated in the wheelchair. She crossed her legs and ultimately fell out of the wheelchair. She fell towards her bed and her right elbow struck the bed as she tried to catch herself. She then hit her head on the way down. She denies any loss of conscious. She states she has some chronic right-sided neck pain that has been going on for months. She does have some bruising over her right elbow. She was told at her facility that she had to come in for evaluation which is why she is here. She has no acute complaints at this time. Denies any associated numbness or tingling. Eyes any vision changes. No report of any nausea or vomiting. [facility] Medical History Ataxia Pacemaker malfunction Loss of hearing Wears glasses Wears dentures Post-menopausal Depression Diabetes Ambulates with cane Arthritis Low iron Anemia Back pain Syncope Gastric reflux Former smoker Asthma COPD (chronic obstructive pulmonary disease) Shortness of breath on exertion History of atrial fibrillation History of echocardiogram History of rheumatic fever Cardiology follow-up encounter Paroxysmal A-fib Sick sinus syndrome Presence of cardiac pacemaker Ischemic colitis Irritable bowel Restless legs High cholesterol History of stress test Pacemaker Acute colitis Acute blood loss anemia Presence of stent in coronary artery Essential hypertension residential current use of anticoagulant Carotid artery disease Atherosclerosis of [place] coronary artery of [place] heart without angina pectoris Pacemaker Cerebrovascular disease Sick sinus syndrome with tachycardia HLD (hyperlipidemia) Home Medications ?Medication ?Instructions ?Recorded ?Last Taken ?Type aspirin 81 mg chewable tablet 81 mg PO DAILY@0800 health 08/18/18 05/22/23 History maintenance montelukast 10 mg tablet 10 mg PO QPM allergy 02/22/19 11/25/20 21:00 History handicap placard #1 ea 10/13/20 Unknown Rx pantoprazole 40 mg tablet,delayed 40 mg PO DAILY stomach #90 tabs 06/29/23 Unknown Rx release pravastatin 80 mg tablet 80 mg PO QHS #90 tabs 07/08/23 Unknown Rx dicyclomine 20 mg tablet 20 mg PO TID #270 tabs 11/22/23 Unknown Rx ketoconazole 2 % shampoo 1 applic topical .twice a week 12/09/23 Unknown History sores nitroglycerin 0.4 mg sublingual 0.4 mg sublingual Q5-15M Chest Pain 12/09/23 Unknown History tablet metoprolol tartrate 25 mg tablet 12.5 mg (1/2 x 25 mg) PO BID #30 12/13/23 Unknown Rx tabs folic acid 1 mg tablet 1 mg PO QDAY 07/12/24 Unknown History gabapentin 100 mg capsule 200 mg PO TID 07/12/24 Unknown History acetaminophen 325 mg tablet 650 mg PO Q6H PRN fever or pain 09/27/24 Unknown History benzonatate 100 mg capsule 100 mg PO BID PRN 09/27/24 Unknown History fesoterodine 4 mg tablet,extended 4 mg PO QDAY 09/27/24 Unknown History release 24 hr hydrocortisone 1 % topical cream 1 applic topical 09/27/24 Unknown History isosorbide mononitrate 30 mg 30 mg PO QDAY 09/27/24 Unknown History tablet,extended release 24 hr lisinopril 5 mg tablet 5 mg PO QDAY 09/27/24 Unknown History loperamide 2 mg tablet 2 mg PO Q6H PRN 09/27/24 Unknown History loratadine 10 mg tablet 10 mg PO QDAY 09/27/24 Unknown History ferrous sulfate 325 mg (65 mg 325 mg PO DAILY 11/09/24 Unknown History iron) tablet (Feosol) oxybutynin chloride 5 mg tablet 5 mg PO DAILY 11/09/24 Unknown History warfarin 2 mg tablet 2 mg PO QHS 11/09/24 Unknown History warfarin 2.5 mg tablet 2.5 mg PO QHS blood thinner 11/09/24 Unknown History Allergy/AdvReac Type Severity Reaction Status Date / Time ciprofloxacin (From Cipro) Allergy Intermediate Itching Verified 11/09/24 18:59 atorvastatin calcium (From Allergy Hives Verified 11/09/24 18:59 Lipitor) gluten Allergy Food Verified 11/09/24 18:59 Allergy metoprolol succinate (From Allergy Rash Verified 11/09/24 18:59 Toprol XL) niacin (From Niaspan Allergy Rash Verified 11/09/24 18:59 Extended-Release) Penicillins Allergy Rash Verified 11/09/24 18:59 Sulfa (Sulfonamide Allergy Itching Verified 11/09/24 18:59 Antibiotics) regadenoson AdvReac Severe Anaphylaxis Verified 11/09/24 18:59 metronidazole AdvReac Intermediate lightheaded Verified 11/09/24 18:59 and ataxia Family History Mother CVA (cerebral vascular accident) CAD (coronary artery disease) Surgical History History of cardiac catheterization History of esophagogastroduodenoscopy (EGD) Status post placement of cardiac pacemaker History of total hysterectomy History of cholecystectomy History of left-sided carotid endarterectomy (~06/2006) Hx of CABG (~06/29/06) Social History household members: none Smoking Status: Former smoker alcohol intake: never substance use type: does not use ROS ROS ED Constitutional Constitutional ED: Denies chills or fever(s) Eyes Eyes: Denies change in vision Cardiovascular Cardiovascular: Denies chest pain Respiratory/Chest Respiratory/Chest: Denies cough Gastrointestinal Gastrointestinal: Denies nausea or vomiting Musculoskeletal Musculoskeletal: Reports neck pain and other Integumentary Reports other Details: Her right elbow ; Denies rash Neurologic Neurologic: Denies headache(s) or weakness Hematologic/Lymphatic Hematologic/Lymphatic: Reports easy bleeding, easy bruising and other Details: On Coumadin EXAM Physical Exam Const Vital Signs: 11/09/24 18:59 11/09/24 19:05 11/09/24 20:58 Temperature 98.2 F Temperature Source Oral Pulse Rate 68 58 L Respiratory Rate 16 Respiratory Effort Normal Respiratory Depth Normal Respiratory Pattern Normal Blood Pressure 143/80 H 161/57 H Blood Pressure Mean 101 91 Pulse Ox 98 97 Oxygen Delivery Method Room Air Room Air Room Air 11/09/24 22:00 11/09/24 22:50 Temperature 98.2 F Temperature Source Pulse Rate 62 62 Respiratory Rate 16 Respiratory Effort Respiratory Depth Respiratory Pattern Blood Pressure 150/55 H 150/55 H Blood Pressure Mean 86 86 Pulse Ox 97 97 Oxygen Delivery Method Room Air Positive well nourished and well developed General Appearance ED: well developed and NAD HEENT Reports TM's clear HEENT Narrative: No cephalhematoma present. No septal hematoma of the nose. No signs of basilar skull fracture on physical exam. No trismus. atraumatic; Negative for tenderness Tympanic Membrane ED: Yes TM's clear Eyes PERRL and EOMs intact bilaterally Neck full ROM Neck Narrative: No step-off sign. Mild tenderness palpation of the right lower paraspinal region of the neck however patient states that this is chronic been going on for months. Chest Wall inspection of chest normal and palpation of chest normal Resp normal respiratory effort and clear to auscultation bilaterally Cardio regular rhythm Rate: regular rate GI normal to inspection, nondistended, normoactive bowel sounds and non-tender Back/Spine normal to inspection and no thoracic nor lumbar tenderness Extremity Extremity Narrative: Mild tenderness palpation of the olecranon process of the right elbow. No obvious deformity. No joint effusion present. There is associated small bruise. Normal range of motion of the elbow, shoulder and wrist. No other bony tenderness. Pelvis is stable. No pain with range of motion of the lower extremities. Neuro oriented x3 and moves all extremities Neuro Narrative: Continuous movements of the extremities consistent with restless leg syndrome or extrapyramidal effects [place] Coma Scale: document GCS findings Spontaneous Obeys Commands Oriented 15 Sensorium / Orientation: alert Psych mental status grossly normal and thought process normal Skin Skin Narrative: Approximately 3 cm in diameter circumferentially or bruising to the right elbow area. No expanding hematoma present. MDM MDM MDM Narrative Medical decision making narrative: Patient evaluated after reported mechanical fall. She has been in her normal state of health. Vital signs are stable in emergency room. Differential includes supratherapeutic INR, radial head fracture, elbow dislocation, intracranial hemorrhage, skull fracture and cervical spine fracture. Patient C-spine is cleared. CT of the brain, cervical spine and x-ray of the elbow was obtained. X-ray viewed by myself as well as radiology does not show any acute traumatic injury. CT of the brain and cervical spine does not show any acute traumatic injury. INR is therapeutic at 2.5. Do not think she requires any emergent reversal. Patient discharged back to nursing facility. She is agreeable this plan of care. Remains hemodynamically stable in the emergency room Lab Data Labs: Laboratory Results - last 24 hr 11/09/24 20:20 PT 27.1 H INR 2.5 Radiography Diagnostic Testing: Clinical Impression(s) from Imaging Studies Brain CT 11/09/24 20:20 IMPRESSION: No acute abnormality Reading Location: [facility] Cervical Spine CT 11/09/24 20:20 IMPRESSION: No acute abnormality Reading [facility] Elbow X-Ray 11/09/24 20:32 IMPRESSION: No radiographic evidence of an acute osseous injury or malalignment at the right elbow. - Other findings discussed above. 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 5 years Dx: generalized debility folic acid 1 mg tablet 1 mg PO QDAY gabapentin 100 mg capsule 200 mg PO TID acetaminophen 325 mg tablet 650 mg PO Q6H PRN (Reason: fever or pain) isosorbide mononitrate 30 mg tablet extended release 24 hr 30 mg PO QDAY loperamide 2 mg tablet 2 mg PO Q6H PRN benzonatate 100 mg capsule 100 mg PO BID PRN hydrocortisone 1 % cream 1 applic topical lisinopril 5 mg tablet 5 mg PO QDAY loratadine 10 mg tablet 10 mg PO QDAY fesoterodine 4 mg tablet extended release 24 hr 4 mg PO QDAY aspirin 81 MG tablet,chewable 81 mg PO DAILY@0800 ketoconazole 2 % shampoo 1 applic topical .twice a week nitroglycerin 0.4 mg tablet, sublingual 0.4 mg SUBLINGUAL Q5-15M Rx Instructions: until response; do not exceed 3 doses per episode metoprolol tartrate 25 mg tablet 12.5 mg PO BID Qty: 30 0RF ferrous sulfate [Feosol] 325 mg (65 mg iron) tablet 325 mg PO DAILY oxybutynin chloride 5 mg tablet 5 mg PO DAILY warfarin 2 mg tablet 2 mg PO QHS warfarin 2.5 mg tablet 2.5 mg PO QHS Protocol: Dose Management Condition: Tuesday Dose/Route: 2.5 mg Instruction: 1 x 2.5 mg tablet Condition: Tuesday Dose/Route: 1.25 mg Instruction: 0.5 x 2.5 mg tablets Condition: Tuesday Dose/Route: 1.25 mg Instruction: 0.5 x 2.5 mg tablets Condition: Tuesday Dose/Route: 1.25 mg Instruction: 0.5 x 2.5 mg tablets Condition: Dose/Route: 1.25 mg Instruction: 0.5 x 2.5 mg tablets Condition: Tuesday Dose/Route: 2.5 mg Instruction: 1 x 2.5 mg tablet Condition: Tuesday Dose/Route: 2.5 mg Instruction: 1 x 2.5 mg tablet Protocol Text: Adjustment Start Date: Tuesday11/18/23 INR Value: 1.1 INR Date: 11/18/23 Recheck Date: 11/21/23 Patient Comments: per patient Rx Instructions: 2.5 mg orally managed at [facility] since Dec 2023.; pantoprazole 40 mg tablet,delayed release (DR/EC) 40 mg PO DAILY Qty: 90 3RF pravastatin 80 mg tablet 80 mg PO QHS Qty: 90 3RF dicyclomine 20 mg tablet 20 mg PO TID Qty: 270 1RF Primary Care Provider: Aldo Waddell Referrals: Aldo Waddell DO [Primary Care Provider] - Activity Restrictions/Additional Instructions: Your CT of the brain, neck and x-ray of the elbow did not show any acute traumatic process. Your INR was therapeutic tonight at 2.5. Ice and take Tylenol as needed for your elbow pain. If you have further swelling I recommend putting an [place] wrap on it. Print Language: [place] Disposition Disposition: Home, Self Care Discharge Date/Time: 11/09/24 23:50
--- NOTE | 2024-11-09 22:49 | ED.RN ---
Tried to call care home twice to give report. No answer both times.
[2024-11-09 22:50] VITALS: BP 150/55; PULSE 62; RESP 16; TEMP 36.8; O2SAT 97
--- NOTE | 2024-11-09 23:12 | PCA ---
Called [facility] @ [phone] to arrange transport, spoke to Dayanna. eta is 4-5 hours ([phone]). Requested outsourcing, she stated they have exhausted their resources for the night and they would not be calling to attempt even though we were requesting. This alumnae secretary requested the crew that had just returned a pt to us that was still in our department could take this pt, she told us they already had other trips lined up and could not. Em from [facility] called back @ 2316 to say this trip was never entered in their system and needed to recollect all of the information provided on the previous phone call. After re-providing, she stated the crew currently here would be taking the pt.
== END 2024-11-09 23:50 | disposition home or self-care (01) ==
PROVIDERS: Emergency Provider Emergency Medicine; PCP Internal Medicine; Visit Provider Emergency Medicine
DX: S09.90XA Unspecified injury of head, initial encounter (principal); J44.9 Chronic obstructive pulmonary disease, unspecified; I48.0 Paroxysmal atrial fibrillation; E11.9 Type 2 diabetes mellitus without complications; E78.00 Pure hypercholesterolemia, unspecified; I10 Essential (primary) hypertension; S50.01XA Contusion of right elbow, initial encounter; W05.0XXA Fall from non-moving wheelchair, initial encounter; I25.10 Atherosclerotic heart disease of native coronary artery without angina pectoris; Z87.891 Personal history of nicotine dependence; Z79.01 Long term (current) use of anticoagulants; Z95.0 Presence of cardiac pacemaker
CPT/HCPCS: 36415; 70450; 72125; 73080; 85610; 99284

== ENCOUNTER → 2025-03-06 05:00 | Outpatient (REF) | payer MEDICARE, SELFPAY ==
--- OUTSIDE RECORDS SUMMARY | 2025-03-06 04:16 | XMS RPT_ITS | CCD ---
Author Organization [facility] Care Team Providers Care Hand Straightener Name Role Phone Ruslan Kang Unavailable Unavailable Maureen Davila Primary Care Provider Dr. Erasmo Pierre Primary Care Provider [phone] Dr. Erasmo Pierre Referring Provider Amarilis Griffiths Attending Provider Unavailable BULMARO Jhaveri Attending Provider Dr. Erasmo Pierre Attending Provider Dr. Erasmo Pierre Primary Care Provider [phone] Dr. Erasmo Pierre Attending Provider Dr. Tian Emery Attending Provider [phone] Tian Emery Referring Provider [phone] Erasmo Pierre Referring Provider BULMARO Mishra Attending Provider [phone] Amarilis Griffiths Attending Provider Unavailable Dr. Erasmo Pierre Primary Care Provider [phone] Dr. Erasmo Pierre Attending Provider Dr. Tian Emery Attending Provider [phone] Tian Emery Referring Provider Dr. Erasmo Pierre Referring Provider Gianfranco CUSTOMER ORDER CLERK, RACHANA-C Evelyn Fleming Attending Provider Harsha CHAMBERLAIN, PA Camila Fleming Attending Provider Dr. Erasmo Pierre Primary Care Provider Dr. Erasmo Pierre Attending Provider Dr. Erasmo Pierre Primary Care Provider Dr. Erasmo Pierre Referring Provider Gianfranco CUSTOMER ORDER CLERK, CUSTOMER ORDER CLERK-C Evelyn Fleming Attending Provider [phone] Harsha CHAMBERLAIN, PA Camila Fleming Attending Provider Dr. Erasmo Pierre Attending Provider Dr. Tian Emery Attending Provider [phone] Dr. Tian Emery Referring Provider [phone] Dr. Erasmo Pierre Primary Care Provider Dr. Erasmo Pierre Attending Provider Dr. Erasmo Pierre Referring Provider Amarilis Griffiths Attending Provider Unavailable Dr. Erasmo Pierre Primary Care Provider Dr. Erasmo Pierre Attending Provider Dr. Quinn Pérez Attending Provider Dr. Quinn Pérez Referring Provider [phone] Erasmo Pierre Referring Provider Dr. Zhen Kirk Attending Provider [phone] Jose CUSTOMER ORDER CLERK, CUSTOMER ORDER CLERK-C Jordana Attending Provider Dr. Erasmo Pierre Primary Care Provider Dr. Erasmo Pierre Attending Provider Jose CUSTOMER ORDER CLERK, CUSTOMER ORDER CLERK-C Jordana Referring Provider Jose CUSTOMER ORDER CLERK, CUSTOMER ORDER CLERK-C Jordana Other Provider [phone] Dr. Rk Parks Attending Provider Dr. Erasmo Pierre Primary Care Provider Dr. Erasmo Pierre Attending Provider Dr. Quinn Pérez Attending Provider [phone] Quinn Pérez Referring Provider [phone])[phone] Erasmo Pierre Primary Care Provider Dr. Erasom Pierre Attending Provider Dr. Erasmo Pierre Referring Provider Jose CUSTOMER ORDER CLERK, CUSTOMER ORDER CLERK-C Jordana Attending Provider Dr. Quinn Pérez Attending Provider [phone] Quinn Pérez Referring Provider [phone] Jose CUSTOMER ORDER CLERK, CUSTOMER ORDER CLERK-C Jodrana Referring Provider Jose CUSTOMER ORDER CLERK, CUSTOMER ORDER CLERK-C Jordana Other Provider [phone] Dr. Rk Parks Attending Provider [phone] Amarilis Griffiths Attending Provider Unavailable Dr. Wong Ortiz Attending Provider 1([facility])[phone] Dr. Erasmo Pierre Primary Care Provider Dr. Erasmo Pierre Attending Provider Dr. Erasmo Pierre Primary Care Provider Jose REICH, CUSTOMER ORDER CLERK-C Jordana Attending Provider Dr. Erasmo Pierre Referring Provider Dr. Erasmo Pierre Primary Care Provider [phone] [phone] Dr. Erasmo Pierre Attending Provider 1([facility])[phone] Dr. Quinn Pérez Attending Provider [phone] Quinn Pérez Referring Provider [phone] Reagan, Dr. Fontaine Attending Provider [phone] Erasmo Pierre MD Primary Care Provider Nayana MARIN, Dr. Refugio Alvarez Attending Provider Nayana MARIN, Dr. Refugio Alvarez Referring Provider Beto MARIN, Dr. Ball Attending Provider [phone] Beto MARIN, Dr. Ball Referring Provider ROSETTA LUQUE Attending Provider Nadira BAJWA, Dr. Carlson Primary Care Provider ROSETTA LUQUE Other Provider Mark Anthony MARIN, Dr. Crystal Attending Provider [phone] ALEXY SNAPPER ON-ORACLE DATABASE ADMINISTRATOR, [facility] Primary Care Physician ALEXY FANG-ORACLE DATABASE ADMINISTRATOR, [facility] Primary Care Hemant GARCIA MD, REFUGIO Alvarez Attending Unavailable Rosanne Waddell DO Primary Care Provider Ignacio MARIN, Dr. Erasmo Childs Primary Care Provider Beto MARIN, Dr. Ball Attending Provider Beto MARIN, Dr. Ball Referring Provider Mark Anthony MARIN, Dr. Crystal Referring Provider Ignacio MARIN, Dr. Erasmo Childs Referring Provider [phone] Dr. Zhen Kirk DO Attending Provider Roof CUSTOMER ORDER CLERK-CErasmo Attending Provider Roof CUSTOMER ORDER CLERK-CErasmo Referring Provider Beto MARIN, Dr. Ball Attending Provider Beto MARIN, Dr. Ball Referring Provider Nadira BAJWA, Dr. Carlson Referring Provider Nadira BAJWA, Dr. Carlson Primary Care Provider Dr. Shira Bryant DO Emergency Provider Nadira BAJWA, Dr. Carlson Primary Care Provider Dr. Erasmo Pierre MD Referring Provider [phone] Dr. Shira Bryant DO Attending Provider Nadira BAJWA, Rosanne Primary Care Provider Quinn Pérez Attending Unavailable Beto, [place]nb[place] Referring Unavailable Vogt, Rosanne Primary Care Unavailable Vogt, Rosanne Primary Care Unavailable Friend, Zhen Attending Unavailable Schinner, Erasmo E Referring Unavailable Vogt, Rosanne Primary Care Unavailable TYRA, A Attending Unavailable Vogt, Rosanne Primary Care Unavailable Roof CUSTOMER ORDER CLERK, Erasmo H Attending Unavailable Roof CUSTOMER ORDER CLERK, Erasmo H Referring Unavailable Vogt, Rosanne Primary Care Unavailable Shira Bryant Attending Unavailable Beto, Quinn Attending Unavailable Beto, Quinn Referring Unavailable Schinner, Erasmo E Primary Care Unavailable Beto, Quinn Attending Unavailable Beto, Cairnbrook Referring Unavailable Schinner, Erasmo E Primary Care Unavailable Beto, Cairnb[place]ok Referring Unavailable Beto, [place]air[place] Attending Unavailable Vogt, Rosanne Primary Care Unavailable Vogt, Rosanne Primary Care Unavailable AhmaMarah renteria Attending Unavailable Ahmad, Arsal Referring Unavailable TRYA, A Consulting Unavailable Vogt, Rosanne Primary Care Unavailable Vogt, Rosanne Referring Unavailable Roof CUSTOMER ORDER CLERK, Erasmo H Attending Unavailable Vogt, Rosanne Primary Care Unavailable Roof CUSTOMER ORDER CLERK, Erasmo H Attending Unavailable Schinner, Erasmo E Referring Unavailable Refugio Garcia Attending Unavailable GarciaRefugio cochran Referring Unavailable Schinner, Erasmo E Primary Care Unavailable Refugio Garcia Attending Unavailable GarciaRefugio cochran Referring Unavailable Schinner, Erasmo E Primary Care Unavailable VOGT, ROSANNE Primary Care Unavailable PORTIA CABRERA Admitting Unavailable CORTEZ RODRÍGUEZ Consulting Unavailable VOGT, ROSANNE Attending Unavailable WONG HARRIS Consulting Unavailable CARLOS DSOUZA Attending Unavailable VOGT, ROSANNE Primary Care Unavailable TOM GRACIA Referring Unavailable TOM GRACIA Attending Unavailable VOGT, ROSANNE Primary Care Unavailable Allergies Allergy Classification Reported Allergen(s) Allergy Type Date of Onset Reaction(s) Facility (3 sources) atorvastatin; Translations: [atorvastatin] Drug Allergy 07-01-19 13 Other: See Comments [facility] Work Phone: (1 source) Benzalkonium Drug Allergy 10-10-19 13 Itching [facility] Work Phone: (4 sources) Penicillins Drug Allergy 07-01-19 13 Itching [facility] Work Phone: (1 source) Sulfamethizole Drug Allergy 07-01-19 13 Other: See Comments [facility] Work Phone: (20 sources) atorvastatin; Translations: [atorvastatin calcium] Drug Allergy 06-05-19 22 [facility] (20 sources) Metoprolol; Translations: [metoprolol succinate] Drug Allergy 06-05-19 22 [facility] (20 sources) Niacin; Translations: [niacin] Drug Allergy 06-05-19 [facility] (20 sources) Sulfonamides (Antibiotic); Translations: [Sulfa (Sulfonamide Antibiotics)] Allergy to substance 06-05-19 22 Itching [facility] (20 sources) Wheat gluten extract Drug Allergy 06-05-19 22 Food Allergy [facility] (8 sources) radionuclide Allergy to substance 11-27-19 21 It almost killed me [facility] (20 sources) Penicillins Allergy to substance 01-15-20 [facility] (20 sources) Ciprofloxacin; Translations: [ciprofloxacin] Drug Allergy 02-23-20 22 Itching [facility] (20 sources) metroNIDAZOLE; Translations: [metronidazole] Drug Allergy 02-23-20 22 Dizziness [facility] (20 sources) regadenoson; Translations: [regadenoson] Drug Allergy 12-31-19 23 Anaphylaxis [facility] Comment on above: it almost killed me (1 source) bacitracin / neomycin / polymyxin b; Translations: [bacitracin/neomyc in/polymyxin B topical] Drug Allergy [facility] (1 source) Gluten Food allergy [facility] (1 source) Penicillin; Translations: [penicillin] Drug Allergy [facility] (1 source) Sulfonamide; Translations: [sulfa drugs] Drug allergy [facility] (6 sources) Wheat preparation Drug Allergy 10-29-19 25 [facility] (5 sources) atorvastatin Drug Allergy 08-19-19 19 [facility] (5 sources) Gluten Allergy to substance 08-19-19 19 Other [facility] (5 sources) Metoprolol Drug Allergy 08-19-19 19 [facility] (5 sources) Niacin Drug Allergy 08-19-19 19 [facility] (5 sources) Penicillins Drug Allergy 10-25-19 09 [facility] (5 sources) Sulfonamides (Antibiotic) Drug Allergy 08-19-19 19 Itching [facility] (3 sources) Lactose (non-medical use) Propensity to adverse reactions 11-15-19 [facility] (1 source) Ciprofloxacin Drug Allergy 11-10-19 [facility] (1 source) Gluten Drug allergy (disorder) 11-10-19 [facility] (1 source) metroNIDAZOLE Drug Allergy 11-10-19 [facility] (1 source) Niacin Drug Allergy 11-10-19 [facility] (1 source) Penicillins Drug allergy (disorder) 11-10-19 [facility] (1 source) regadenoson Drug Allergy 11-10-19 [facility] Medications Current Medications Medication Drug Class(es) Dates Sig (Normalized) Sig (Original) albuterol 0.83 mg/ml inhalation solution (20 sources) beta2-Adrenergic Agonist Start: 11-19-2024 End: 11-19-2025 albuterol (2.5 MG/3ML) 0.083% nebulizer solution Indications: Sepsis with acute hypoxic respiratory failure without septic shock, due to unspecified organism (HCC) Take 3 mL (2.5 mg) by nebulization every 4 hours as needed for wheezing or shortness of breath. 11/19/2024 11/19/2025 Active Start: 11-15-2024 End: 11-19-2025 Start: 03-05-2019 End: 11-17-2023 Albuterol Sulfate (Ventolin Hfa) 90 mcg/actuation HFA aerosol inhaler Discontinued 2 NMA INHALATION EVERY 6 HOURS as needed for sob March 05, 2019 1:00am November 17, 2023 8:56pm Start: 03-05-2019 take 1 puff(s) by in halation every six hours Albuterol Sulfate (Ventolin Hfa) 90 mcg/actuation HFA aerosol inhaler Active 2 PUFF INHALATION EVERY 6 HOURS March 05, 2019 1:00am Start: 10-24-2018 VENTOLIN HFA 9 0 mcg/actuation inhaler benzonatate 100 mg oral capsule (20 sources) Non-narcotic Antitussive Start: 08-26-2023 take 1 capsule by mouth once daily in the morning, then take 2 capsules by mouth in the evening benzonatate (Tessalon) 100 MG capsule TAKE 1 CAPSULE BY MOUTH EVERY MORNING AND 2 IN THE EVENING *EMERGENCY REFILL* 08/26/2023 Active Start: 08-26-2023 [facility] 1 capsule [facility] needed Benzonatate 100 mg capsule Active 100 mg PO TWICE A DAY as needed September 27, 2024 12:00am Start: 11-26-2020 End: 12-09-2023 take 2 capsules by mouth twice daily Benzonatate 100 mg capsule Discontinued 200 mg PO TWICE A DAY November 26, 2020 12:00am December 09, 2023 10:33am COPD Start: 11-26-2020 take 200 mg by mouth twice tammie ly Benzonatate Active 200 MG PO TWICE A DAY November 26, 2020 12:00am Start: 09-20-2019 End: 02-22-2022 take 1 capsule by mouth once daily Benzonatate 100 mg capsule Discontinued 100 mg PO DAILY September 20, 2019 12:00am February 22, 2022 8:49am COPD cefTRIAXone 2,000 mg in sodium chloride 0.9 % 50 mL IVPB (1 source) Start: 11-19-2024 End: 12-13-2024 cefTRIAXone 2,000 mg in sodium chloride 0.9 % 50 mL IVPB Infuse 2,000 mg into a venous catheter Every 24 hours for 24 days. 11/19/2024 12/13/2024 Active dicyclomine hydrochloride 20 mg oral tablet (20 sources) Anticholinergic Start: 07-12-2023 End: 11-22-2023 dicyclomine (Bentyl) 20 MG tablet 20 mg. 11/18/2023 Active Start: 02-22-2022 End: 10-24-2023 take 1 capsule by mouth twice daily Dicyclomine 10 mg capsule Discontinued 10 mg PO TWICE A DAY 60 2 May 02, 2023 2:01pm October 24, 2023 12:49am Start: 12-31-2020 End: 06-04-2021 take 1 capsule by mouth twice daily Dicyclomine 10 mg capsule Discontinued 10 mg PO TWICE A DAY 90 0 December 31, 2020 12:57pm June 04, 2021 1:20pm Start: 11-28-2020 End: 12-31-2020 take 1 capsule by mouth three times daily Dicyclomine 10 mg capsule Discontinued 10 mg PO THREE TIMES A DAY 90 0 December 31, 2020 12:54pm December 31, 2020 12:57pm Drug or medicament (substance) (2 sources) Start: 11-19-2024 End: 12-13-2024 ferrous sulfate 325 mg oral tablet (7 sources) Start: 11-09-2024 take 1 tablet by mouth once daily Ferrous Sulfate (Feosol) 325 mg (65 mg iron) tablet Active 325 mg PO DAILY November 09, 2024 12:00am take 1 tablet by pepe th three times daily at mealtime ferrous sulfate 325 (65 Fe) MG EC tablet Take 325 mg by mouth 3 times daily (with meals). Do not crush, chew, or split. Active 24 hr fesoterodine fumarate 4 mg extended release oral tablet (20 sources) Start: 09-27-2024 take 1 tablet by mouth once daily Fesoterodine 4 mg tablet extended release 24 hr Active 4 mg PO daily September 27, 2024 12:00am Start: 03-05-2019 End: 07-12-2024 take 1 tablet by mouth once daily Fesoterodine (Toviaz) 4 mg tablet extended release 24 hr Discontinued 4 mg PO DAILY February 23, 2022 1:00am July 12, 2024 9:53am Comment on above: TAKE 1 TABLET BY PEPE TH EVERY DAY folic acid 1 mg oral tablet (14 sources) Start: 06-07-2024 End: 11-20-2024 folic acid (Folvite) 1 MG tablet 1 mg. 06/07/2024 Active gabapentin 100 mg oral capsule (18 sources) Anti-epileptic Agent Start: 06-08-2024 End: 11-20-2024 gabapentin (Neurontin) 100 MG capsule 200 mg. 06/08/2024 Active Start: 06-08-2024 gabapentin 100 mg oral capsule Dose : 200 mg = 2 cap(s), Oral, TID, 0 Refill(s) Start Date: 06/08/24 Status: Ordered Repeat number: 1 handicap placard (20 sources) Start: 10-13-[address] Active 0 .Route .MEDSUPPLY 1 0 October 13, 2020 12:00am As directed -Life time exp. 5 years Dx: generalized debility Start: 10-13-[address] Active 0 .Route .MEDSUPPLY October 12, 2020 11:00pm As directed -Life time exp. 5 years Dx: generalized debility Start: 10-13-[address] Active 0 .Route .MEDSUPPLY October 13, 2020 12:00am As directed -Life time exp. 5 years Dx: generalized debility hydrocortisone 10 mg/ml topical cream (9 sources) Corticosteroid Start: 09-27-2024 Hydrocortisone 1 % cream Active 1 NMA TOPICAL September 27, 2024 12:00am Start: 06-08-2024 Hydrocortisone 1% cream Apply 1 rené, Topical, BID, PRN Itching, 0 Refill(s), Cream Start Date: 06/08/24 Status: Ordered Repeat number: 1 Start: 04-26-2024 hydrocortisone 1 % cream 04/26/2024 Active Start: 04-26-2024 24 hr isosorbide mononitrate 30 mg extended release oral tablet (20 sources) Nitrate Vasodilator Start: 07-14-2023 End: 11-20-2024 isosorbide mononitrate ER (Imdur) 30 MG 24 hr tablet 30 mg. 10/04/2023 Active Start: 04-12-2023 End: 07-14-2023 take 1 tablet by mouth every seven hours Isosorbide Mononitrate 20 mg tablet Discontinued 10 mg PO TWICE A DAY July 08, 2023 11:58am July 14, 2023 9:15am give doses 7 hrs apart Start: 04-12-2023 End: 07-14-2023 Isosorbide Mononitrate Disco ntinued 10 MG PO TWICE A DAY July 08, 2023 11:58am July 14, 2023 9:15am give doses 7 hrs apart Start: 12-02-2018 End: 04-12-2023 take 1 tablet by mouth twice daily Isosorbide Mononitrate 10 mg tablet Discontinued 10 mg PO TWICE A DAY 180 April 01, 2023 3:53pm April 12, 2023 9:36am Start: 08-18-2018 End: 02-22-2019 Isosorbide Mononitrate 20 MG tablet Discontinued 10 mg PO TWICE A DAY August 18, 2018 12:00am February 22, 2019 12:19pm Start: 08-18-2018 End: 02-22-2019 take 10 mg by mouth twice daily Isosorbide Mononitrate Discontinued 10 MG PO TWICE A DAY August 18, 2018 12:00am February 22, 2019 12:19pm Start: 08-23-2013 End: 01-30-2018 Isosorbide Mononitrate 20 MG tablet Discontinued 10 mg PO TWICE A DAY August 23, 2013 12:00am January 30, 2018 4:56pm heart Start: 08-23-2013 End: 01-30-2018 take 10 mg by mouth twice daily Isosorbide Mononitrate Discontinued 10 MG PO TWICE A DAY August 23, 2013 12:00am January 30, 2018 4:56pm Start: 01-30-2013 End: 04-09-2013 Isosorbide Mononitrate 20 MG tablet Discontinued 10 mg PO BID@0800,1500 60 0 January 30, 2013 1:00am April 09, 2013 8:08am Start: 01-30-2013 End: 04-09-2013 take 10 mg by mouth twice daily Isosorbide Mononitrate Discontinued 10 MG PO BID@0800,1500 60 January 30, 2013 1:00am April 09, 2013 8:08am Comment on above: TAKE 1 TABLET BY PEPE TWICE DAILY FOR HEART ketoconazole 10 mg/ml medicated shampoo (13 sources) Azole Antifungal Start: 06-08-2024 ketoconazole 1% topical shampoo Apply 1 rené, Topical, 0 Refill(s) Start Date: 06/08/24 Status: Ordered Repeat number: 1 Start: 12-09-2023 Ketoconazole 1 % shampoo Apply topically. 12/09/2023 Active Start: 12-09-2023 Start: 12-09-2023 Ketoconazole 2 % shampoo Active 1 NMA TOPICAL .twice a week December 09, 2023 12:00am sores lisinopril 5 mg oral tablet (17 sources) Angiotensin Converting Enzyme Inhibitor Start: 06-08-2024 End: 11-20-2024 lisinopril 5 MG tablet 06/08/2024 Active loperamide hydrochloride 2 mg oral tablet (9 sources) Opioid Agonist Start: 06-08-2024 loperamide (Im odium A-D) 2 MG tablet 2 mg. 06/08/2024 Active Start: 06-08-2024 loratadine 10 mg oral tablet (10 sources) Start: 06-07-2024 loratadine (Cl aritin) 10 MG tablet 10 mg. 06/07/2024 Active Start: 10-09-2012 take 1 tablet by pepe th once daily loratadine (CLARITIN) 10 mg tablet Take 1 tablet by mouth once daily. 0 10/09/2012 Active Comment on above: Take 1 tablet by pepe th once daily. montelukast 10 mg oral tablet (20 sources) Leukotriene Receptor Antagonist Start: 11-19-2018 End: 11-20-2024 montelukast (Singulair) 10 MG tablet 10 mg. 11/25/2023 Active Comment on above: Take 10 mg by mouth daily at bedtime. nitroglycerin 0.4 mg sublingual tablet (20 sources) Nitrate Vasodilator Start: 06-08-2024 End: 11-20-2024 Start: 06-08-2024 nitroglycerin (Nitrostat) 0.4 MG SL tablet 0.4 mg. 06/08/2024 Active Start: 03-05-2019 End: 12-09-2023 Nitroglycerin 0.4 mg tablet, sublingual Discontinued 0.4 mg SL every 5 to 15 minutes as needed for Chest Pain 29 05July 22, 2021 12:17pm December 09, 2023 4:03pm until response; do not exceed 3 doses per episode Start: 01-28-2013 End: 03-16-2013 Nitroglycerin Discontinued 0 .1 MG TRANSDERM. DAILY January 28, 2013 12:00am March 16, 2013 1:47pm Start: 01-28-2013 End: 03-16-2013 Nitroglycerin Discontinued 0 .1 MG TRANSDERM. DAILY January 28, 2013 1:00am March 16, 2013 2:47pm NITROGLYCERIN (N ITRO-BID TRANSDERM.) Apply as directed. Apply every morning and remove at night 0 Active Comment on above: Apply as directed. A pply every morning and remove at night Dissolve 0.4 mg unde r the tongue every 5 minutes as needed. ondansetron 4 mg oral tablet (20 sources) Serotonin-3 Receptor Antagonist Start: 06-08-2024 Zofran 4 mg oral tablet Dose : 4 mg = 1 tab(s), Oral, q8h, PRN Nausea/Vomiting, 0 Refill(s) Start Date: 06/08/24 Status: Ordered Repeat number: 1 Start: 08-18-2018 End: 02-22-2019 take 1 tablet by mouth every eight hours as needed for nausea Ondansetron 4 MG tablet Discontinued 4 mg PO EVERY 8 HOURS NEEDED as needed for Nausea August 18, 2018 12:00am February 22, 2019 11:43am oxybutynin chloride 5 mg oral tablet (14 sources) Cholinergic Muscarinic Antagonist Start: 11-09-2024 take 1 tablet by mouth once daily Oxybutynin Chloride 5 mg tablet Active 5 mg PO DAILY November 09, 2024 12:00am Start: 07-09-2024 oxybutynin XL (Ditropan-XL) 5 MG 24 hr tablet 07/09/2024 Active Start: 07-09-2024 End: 09-27-2024 take 1 tablet by mouth once daily Oxybutynin Chloride 5 mg tablet extended release 24hr Discontinued 5 mg PO daily July 12, 2024 12:00am September 27, 2024 11:38am Start: 06-08-2024 oxybutynin 5 m g oral tablet Dose : 5 mg = 1 tab(s), Oral, qDay, 0 Refill(s) Start Date: 06/08/24 Status: Ordered Repeat number: 1 pantoprazole 40 mg delayed release oral tablet (20 sources) Proton Pump Inhibitor Start: 07-27-2023 End: 11-20-2024 pantoprazole (ProtoNix) 40 MG EC tablet 40 mg. 07/27/2023 Active Start: 01-09-2019 End: 06-29-2023 take 1 tablet by mouth once daily Pantoprazole 40 mg tablet,delayed release (DR/EC) Discontinued 40 mg PO DAILY 90 July 08, 2022 12:29pm June 29, 2023 11:58am stomach Start: 08-18-2018 End: 03-05-2019 take 1 tablet by mouth twice daily Pantoprazole 40 MG tablet,delayed release (DR/EC) Discontinued 40 mg PO TWICE A DAY August 18, 2018 12:00am March 05, 2019 9:38am Comment on above: Take 40 mg by mouth once daily. warfarin sodium 1 mg oral tablet (20 sources) Vitamin K Antagonist Start: 11-15-2024 Start: 11-13-2024 Start: 11-09-2024 take 1 tablet by pepe th at bedtime Warfarin 2 mg tablet Active 2 mg PO AT BEDTIME November 09, 2024 12:00am Start: 06-30-2024 End: 11-19-2024 Start: 06-30-2024 warfarin (Coum yasmani) 2 MG tablet 06/30/2024 Active Start: 06-08-2024 warfarin 3 mg oral tablet Dose : 4.5 mg = 1.5 tab(s), Oral, Daily, 0 Refill(s) Start Date: 06/08/24 Status: Ordered Repeat number: 1 Start: 12-09-2023 End: 11-09-2024 Start: 07-27-2022 End: 12-13-2023 Warfarin 5 mg tablet Discont inued 5 mg PO .COMPLEX 90 July 27, 2022 3:01pm December 13, 2023 12:19pm On Hold: Resume on 10/28/23. 5 mg orally take one tab bymouth every Tue Mon and then take a 2.5 mg tab the other days or as directed; Please contact the information source for Protocol details. Start: 07-20-2022 End: 12-09-2023 Warfarin 2.5 mg tablet Disco ntinued 5 mg PO DAILY 180 3 July 20, 2022 9:27am December 09, 2023 4:03pm blood thinner 2.5 mg orally three days a week, take 2 tablets to = 5 mg 4 days a week, or as directed; dose changes often Please contact the information source for Protocol details. Start: 07-20-2022 Warfarin Activ e 5 MG PO DAILY 180 July 20, 2022 9:27am 2.5 mg orally three days a week, take 2 tablets to = 5 mg 4 days a week, or as directed; dose changes often Start: 04-13-2022 End: 07-20-2022 Warfarin Discontinued 5 MG P O DAILY April 13, 2022 4:51pm July 20, 2022 9:29am 2.5 mg orally daily except on Tuesday, take 2 tablets to = 5 mg, or as directed; dose changes often Start: 12-02-2021 End: 07-20-2022 Warfarin 2.5 mg tablet Disco ntinued 5 mg PO DAILY April 13, 2022 4:51pm July 20, 2022 9:29am blood thinner 2.5 mg orally daily except on Tuesday, take 2 tablets to = 5 mg, or as directed; dose changes often Please contact the information source for Protocol details. Start: 08-18-2018 End: 12-02-2021 Warfarin 2.5 mg tablet Disco ntinued 2.5 mg PO MOTUWETH 90 3 July 28, 2021 10:41am December 02, 2021 9:16am blood thinner Please contact the information source for Protocol details. Start: 08-18-2018 End: 07-28-2021 Warfarin 5 mg tablet Discont inued 5 mg PO SUFRSA July 28, 2021 10:40am July 28, 2021 10:42am blood thinner Start: 08-05-2017 End: 12-02-2017 Warfarin Discontinued 5 MG P O SUFRSA August 05, 2017 12:00am December 02, 2017 4:34pm Start: 06-25-2017 End: 12-02-2017 Warfarin 2.5 mg tablet Disco ntinued 2.5 mg PO MOTUWETH 135 3 September 06, 2017 5:26pm December 02, 2017 4:37pm 2.5 mg PO Tuesday through Tuesday: 2 tablets (5mg) on Sat and Sun Please contact the information source for Protocol details. Start: 06-25-2017 End: 12-09-2017 take 2 tablets by mouth once daily Warfarin 2.5 mg tablet Discontinued 2.5 mg PO .COMPLEX 0 3 December 02, 2017 4:35pm December 09, 2017 4:43pm 2.5 mg PO on Sun, Mon, Tu; take 2 tablets (5mg) daily on Weds, Th, Fri, Sat Please contact the information source for Protocol details. Start: 03-01-2017 End: 06-25-2017 Warfarin 2.5 mg tablet Disco ntinued 2.5 mg PO .COMPLEX June 09, 2017 5:54pm June 25, 2017 2:11pm 2.5 mg PO Fri, Sat, Sun, Mon; 2 tablets (5mg) , , Th Please contact the information source for Protocol details. Start: 03-01-2017 End: 06-09-2017 Warfarin 2.5 MG tablet Disco ntinued 5 mg PO March 01, 2017 1:00am June 09, 2017 5:54pm Please contact the information source for Protocol details. Start: 03-01-2017 End: 06-09-2017 Warfarin Discontinued 5 MG P O March 01, 2017 1:00am June 09, 2017 5:54pm Start: 01-29-2016 End: 02-08-2017 Warfarin 2.5 MG tablet Disco ntinued 2.5 mg PO [facility] January 29, 2016 1:00am February 08, 2017 3:31pm Please contact the information source for Protocol details. Comment on above: TAKE 1 TABLET BY PEPE TH ON TUESDAY AND TUESDAY TAKE 1 TABLET BY PEPE TH TUESDAY THROUGH TUESDAY (2 sources) Start: 11-20-2024 End: 11-20-2024 Completed/Discontinued Medications Medication Drug Class(es) Dates Sig (Normalized) Sig (Original) acetaminophen 325 mg oral tablet (12 sources) Start: 11-13-2024 End: 11-20-2024 take 1 tablet by mouth every six hours as needed for pain and fever and headache Start: 06-08-2024 acetaminophen (Tylenol) 325 MG tablet 650 mg. 06/08/2024 Active Start: 06-08-2024 acetaminophen 325 mg oral capsule Dose : 650 mg = 2 cap(s), Oral, q6hr, PRN as needed for pain, 0 Refill(s) Start Date: 06/08/24 Status: Ordered Repeat number: 1 acetaminophen 325 mg / HYDROcodone bitartrate 5 mg oral tablet (20 sources) Opioid Agonist Start: 03-01-2017 End: 04-11-2017 Hydrocodone-Acetaminophen 1 TABLET tablet Discontinued 1 - 2 {tbl} PO EVERY 6 HOURS NEEDED as needed for Pain March 01, 2017 5:25pm April 11, 2017 3:53pm Start: 03-01-2017 End: 04-11-2017 take 1 tablet by mouth every six hours as needed Hydrocodone-Acetaminophen Discontinued 1 - 2 TABLET PO EVERY 6 HOURS NEEDED March 01, 2017 5:25pm April 11, 2017 3:53pm Start: 03-01-2017 End: 04-11-2017 Hydrocodone-Acetaminophen 1 TABLET tablet Discontinued 1 {tbl} PO EVERY 4 HOURS NEEDED as needed for Pain 12 March 01, 2017 1:00am April 11, 2017 3:53pm Generalized abdominal pain Start: 03-01-2017 End: 04-11-2017 take 1 tablet by mouth every four hours as needed Hydrocodone-Acetaminophen Discontinued 1 TABLET PO EVERY 4 HOURS NEEDED March 01, 2017 1:00am April 11, 2017 3:53pm 20 ml albumin human, longterm 250 mg/ml injection (2 sources) Human Serum Albumin Start: 11-14-2024 End: 11-14-2024 albuterol 0.833 mg/ml / ipratropium bromide 0.167 mg/ml inhalation solution (2 sources) Anticholinergic, beta2-Adrenergic Agonist Start: 11-13-2024 End: 11-15-2024 aspirin 81 mg chewable tablet (20 sources) Platelet Aggregation Inhibitor, Nonsteroidal Anti-inflammatory Drug Start: 10-28-2024 End: 10-28-2024 take 324 mg by mouth once 324 mg, Oral, Once, On 10/28/24 at 1015, For 1 dose Start: 08-18-2018 End: 11-20-2024 aspirin 81 MG chewable table t 06/07/2024 Active Start: 04-09-2013 End: 06-20-2013 take 1 tablet by mouth once daily Aspirin 325 MG tablet Discontinued 325 mg PO DAILY@0800 April 09, 2013 1:00am June 20, 2013 10:02am Start: 04-02-2013 End: 04-09-2013 take 1 tablet by mouth once daily Aspirin 81 MG tablet Discontinued 81 mg PO DAILY@0800 30 0 April 02, 2013 1:00am April 09, 2013 8:07am Start: 03-16-2013 End: 04-02-2013 take 1 tablet by mouth at bedtime Aspirin 325 MG tablet Discontinued 325 mg PO AT BEDTIME March 16, 2013 1:00am April 02, 2013 11:53am Comment on above: Take 325 mg by mouth once daily. azithromycin 250 mg oral tablet (20 sources) Macrolide Antimicrobial Start: 08-19-19 End: 02-23-20 take 1 tablet by mouth once daily Azithromycin 250 MG tablet Discontinued 250 mg PO DAILY 4 0 August 18, 2018 12:00am February 22, 2019 11:43am Start: 05-05-2018 End: 05-19-2018 take 2 tablets by mouth once daily, then take 1 tablet by mouth once daily Azithromycin 250 MG tablet Discontinued 250 mg PO DIRECTED May 05, 2018 1:00am May 19, 2018 4:31pm TAKE 2 TABLETS 1ST DAY THEN 1 TABLET DAILY FOR NEXT 4 DAYS. 120 actuat budesonide 0.16 mg/actuat / formoterol fumarate 0.0045 mg/actuat metered dose inhaler (20 sources) Corticosteroid, beta2-Adrenergic Agonist Start: 03-29-2017 End: 02-06-2018 Budesonide-Formoterol (Symbicort) 160-4.5 mcg/actuation HFA aerosol inhaler Discontinued 2 NMA INHALATION Q12H March 29, 2017 1:00am February 06, 2018 2:28pm shortness of breath Start: 03-29-2017 End: 02-06-2018 take 1 puff(s) by inhalation every twelve hours Budesonide-Formoterol (Symbicort) 160-4.5 mcg/actuation HFA aerosol inhaler Discontinued 2 PUFF INHALATION Q1H March 29, 2017 1:00am February 06, 2018 2:28pm calcium chloride 0.0014 meq/ ml / potassium chloride 0.004 meq/ml / sodium chloride 0.103 meq/ml / sodium lactate 0.028 meq/ml injectable solution (6 sources) Start: 11-13-2024 End: 11-14-2024 cefTRIAXone (Rocephin) 2,000 mg in sodium chloride 0.9 % 50 mL IVPB Mini-Bag Plus (2 sources) Start: 11-14-2024 End: 11-14-2024 cetirizine hydrochloride 10 mg oral tablet (20 sources) Histamine-1 Receptor Antagonist Start: 11-14-2024 End: 11-20-2024 Start: 11-17-2023 End: 09-27-2024 take 1 tablet by mouth once daily Cetirizine (Allergy Relief (Cetirizine)) 10 mg tablet Discontinued 10 mg PO DAILY November 17, 2023 12:00am September 27, 2024 11:38am Start: 10-13-2020 [facility] Cetirizine (All Day Allergy (Cetirizine)) 10 mg capsule Active 10 MG PO DAILY October 13, 2020 12:00am Start: 03-29-2017 End: 02-06-2018 take 1 tablet by mouth once daily Cetirizine (Zyrtec) 10 mg tablet Discontinued 10 mg PO DAILY March 29, 2017 1:00am February 06, 2018 2:28pm allergies cholecalciferol 0.05 mg oral capsule (20 sources) Vitamin D Start: 11-26-2020 End: 02-01-2023 take 1 capsule by mouth once daily Cholecalciferol (Vitamin D3) (Vitamin D3) 50 mcg (2,000 unit) Capsule Discontinued 50 ug PO DAILY November 26, 2020 12:00am February 01, 2023 10:33am health maintenance ciprofloxacin 500 mg oral tablet (20 sources) Quinolone Antimicrobial Start: 01-14-2022 End: 02-22-2022 take 1 tablet by mouth twice daily Ciprofloxacin Hcl 500 MG tablet Discontinued 500 mg PO TWICE A DAY January 14, 2022 1:00am February 22, 2022 8:50am clopidogrel 75 mg oral tablet (20 sources) [id number] Platelet Inhibitor Start: 01-28-2013 End: 04-10-2013 take 1 tablet by mouth once daily Clopidogrel 75 MG tablet Discontinued 75 mg PO DAILY January 28, 2013 1:00am April 10, 2013 11:07am Comment on above: Take 75 mg by mouth once daily. 1 ml dexamethasone phosphate 4 mg/ml injection (2 sources) Corticosteroid Start: 11-14-2024 End: 11-15-2024 take 4 mg intravenously every six hours diphenhydrAMINE hydrochloride 25 mg oral tablet (2 sources) Histamine-1 Receptor Antagonist Start: 11-14-2024 End: 11-14-2024 Start: 11-14-2024 End: 11-14-2024 docusate sodium 50 mg / sennosides, longterm 8.6 mg oral tablet (20 sources) Start: 08-18-2018 End: 10-13-2020 Sennosides-Docusate Sodium 1 EACH tablet Discontinued 1 NMA PO DAILY August 18, 2018 12:00am October 13, 2020 2:55pm Start: 08-18-2018 End: 10-13-2020 Sennosides-Docusate Sodium D iscontinued 1 EACH PO DAILY August 18, 2018 12:00am October 13, 2020 2:55pm enalapril maleate 2.5 mg oral tablet (20 sources) Angiotensin Converting Enzyme Inhibitor Start: 07-22-2022 End: 07-12-2024 take 1 tablet by mouth once daily Enalapril Maleate 2.5 mg tablet Discontinued 2.5 mg PO DAILY 90 3 June 29, 2023 11:58am July 12, 2024 9:53am Start: 06-04-2021 End: 02-23-2022 take 1.25 mg by mouth once daily Enalapril Maleate 2.5 mg tablet Discontinued 1.25 mg PO DAILY 45 July 22, 2021 12:16pm February 23, 2022 11:20am Start: 06-04-2021 End: 02-23-2022 take 1.25 mg by mouth once daily Enalapril Maleate Discontinued 1.25 MG PO DAILY 45 July 22, 2021 12:16pm February 23, 2022 11:20am Start: 01-21-2021 End: 06-04-2021 take 1 tablet by mouth once daily Enalapril Maleate 2.5 mg tablet Discontinued 2.5 mg PO DAILY 90 January 21, 2021 1:00pm June 04, 2021 1:20pm Pt only wants Dr. Emery to order this med. Start: 11-26-2020 End: 01-21-2021 take 1.25 mg by mouth once daily Enalapril Maleate 2.5 mg tablet Discontinued 1.25 mg PO DAILY 45 December 31, 2020 8:21am January 21, 2021 1:01pm BP Start: 11-26-2020 End: 01-21-2021 take 1.25 mg by mouth once daily Enalapril Maleate Discontinued 1.25 MG PO DAILY 45 December 31, 2020 8:21am January 21, 2021 1:01pm Start: 01-16-2020 End: 11-26-2020 take 1 tablet by mouth once daily Enalapril Maleate 2.5 mg tablet Discontinued 2.5 mg PO DAILY 90 3 January 16, 2020 3:15pm November 26, 2020 8:42am Start: 09-20-2019 End: 01-16-2020 take 1.25 mg by mouth once daily Enalapril Maleate 2.5 mg tablet Discontinued 1.25 mg PO DAILY 45 January 01, 2020 5:32pm January 16, 2020 3:15pm Start: 09-20-2019 End: 01-16-2020 take 1.25 mg by mouth once daily Enalapril Maleate Discontinued 1.25 MG PO DAILY 45 January 01, 2020 5:32pm January 16, 2020 3:15pm Start: 02-22-2019 End: 09-20-2019 take 1 tablet by mouth once daily Enalapril Maleate 2.5 mg tablet Discontinued 2.5 mg PO DAILY 90 February 22, 2019 12:26pm September 20, 2019 2:56pm Start: 08-18-2018 End: 02-22-2019 take 1 tablet by mouth twice daily Enalapril Maleate 5 mg tablet Discontinued 5 mg PO TWICE A DAY 180 February 22, 2019 12:17pm February 22, 2019 12:28pm Start: 08-05-2017 End: 08-07-2018 take 2.5 mg by mouth twice daily Enalapril Maleate 5 mg tablet Discontinued 2.5 mg PO TWICE A DAY 30 August 04, 2018 3:49pm August 07, 2018 9:19am blood pressure Start: 08-05-2017 End: 08-07-2018 take 2.5 mg by mouth twice daily Enalapril Maleate Discontinued 2.5 MG PO TWICE A DAY August 04, 2018 3:49pm August 07, 2018 9:19am Start: 04-07-2017 End: 08-05-2017 take 1 tablet by mouth once daily Enalapril Maleate 5 mg tablet Discontinued 5 mg PO daily 90 April 07, 2017 1:00am August 05, 2017 6:24pm Start: 08-23-2013 End: 04-07-2017 take 5 mg by mouth once daily Enalapril Maleate 10 MG tablet Discontinued 5 mg PO DAILY August 23, 2013 12:00am April 07, 2017 4:07pm Start: 08-23-2013 End: 04-07-2017 take 5 mg by mouth once daily Enalapril Maleate Discon tinued 5 MG PO DAILY August 23, 2013 12:00am April 07, 2017 4:07pm Start: 04-02-2013 End: 04-09-2013 take 2 tablets by mouth at bedtime Enalapril Maleate 10 MG tablet Discontinued 20 mg PO AT BEDTIME 30 0 April 02, 2013 1:00am April 09, 2013 8:09am Start: 04-02-2013 End: 04-09-2013 take 20 mg by mouth at bedtime Enalapril Maleate Disco ntinued 20 MG PO AT BEDTIME 30 April 02, 2013 1:00am April 09, 2013 8:09am take 1 tablet by pepe th twice daily enalapril (VASOTEC) 10 mg tablet Take 10 mg by mouth twice daily. 0 Active Comment on above: Take 10 mg by mouth twice daily. 3.5 ml evolocumab 120 mg/ml cartridge (18 sources) [id number] Inhibitor Start: 08-25-2022 End: 02-01-2023 Evolocumab (Repatha Pushtronex) 420 mg/3.5 mL wearable injector Discontinued mg SC August 25, 2022 12:00am February 01, 2023 10:33am Ferrous Sulfate-Vitamin C (19 sources) Start: 10-13-2020 End: 02-23-2022 take 1 tablet by mouth once daily Ferrous Sulfate-Vitamin C Discontinued 1 TABLET PO .Daily October 13, 2020 12:00am February 23, 2022 11:20am Start: 10-13-2020 End: 02-23-2022 take 1 tablet by mouth once daily Ferrous Sulfate-Vitamin C Discontinued 1 TABLET PO .Daily October 12, 2020 11:00pm February 23, 2022 10:20am Start: 10-13-2020 take 1 tablet by pepe th once daily Ferrous Sulfate-Vitamin C Active 1 TABLET PO .Daily October 12, 2020 11:00pm Start: 10-13-2020 take 1 tablet by pepe th once daily Ferrous Sulfate-Vitamin C Active 1 TABLET PO .Daily October 13, 2020 12:00am Ferrous Sulfate-Vitamin C 39 -75 mg tablet (7 sources) Start: 10-13-2020 End: 02-23-2022 Ferrous Sulfate-Vitamin C 39 -75 mg tablet Discontinued 1 {tbl} PO .Daily October 13, 2020 12:00am February 23, 2022 11:20am health maintenance Start: 10-13-2020 End: 02-23-2022 Ferrous Sulfate-Vitamin C 39 -75 mg tablet Discontinued 1 {tbl} PO .Daily October 13, 2020 12:00am February 23, 2022 11:20am fluconazole 100 mg oral tablet (7 sources) Azole Antifungal Start: 11-17-2023 End: 12-09-2023 take 1 tablet by mouth once daily Fluconazole 100 mg tablet Discontinued 100 mg PO DAILY November 17, 2023 12:00am December 09, 2023 10:34am folic acid 0.4 mg / vitamin b12 0.5 mg oral tablet (20 sources) Vitamin B12 Start: 10-13-2020 End: 02-01-2023 Vitamin Q12-Vugmg Acid 500-400 mcg tablet Discontinued 1 {tbl} PO DAILY October 13, 2020 12:00am February 01, 2023 10:34am health maintenance administer with a meal Start: 10-13-2020 End: 02-01-2023 take 1 tablet by mouth once daily Vitamin Q87-Aiqap Acid Discontinued 1 TABLET PO DAILY October 13, 2020 12:00am February 01, 2023 10:34am administer with a meal 120 actuat formoterol fumarate 0.005 mg/actuat / mometasone furoate 0.2 mg/actuat metered dose inhaler (20 sources) Corticosteroid, beta2-Adrenergic Agonist Start: 08-05-2017 End: 02-06-2018 Mometasone-Formoterol 8.8 GM HFA aerosol inhaler Discontinued 1 NMA IH TWICE A DAY as needed for Sob &/Or Wheezing August 05, 2017 12:00am February 06, 2018 2:28pm Start: 08-05-2017 End: 02-06-2018 Mometasone-Formoterol Discon tinued 1 INH IH TWICE A DAY August 05, 2017 12:00am February 06, 2018 2:28pm 2 ml furosemide 10 mg/ml injection (2 sources) Loop Diuretic Start: 11-14-2024 End: 11-14-2024 10 ml lidocaine hydrochloride 10 mg/ml injection (2 sources) Antiarrhythmic, Amide Local Anesthetic Start: 11-19-2024 End: 11-19-2024 Magnesium (14 sources) Start: 12-09-2023 End: 07-12-2024 Magnesium 250 mg tablet Discontinued 420 mg PO TWICE A DAY December 09, 2023 12:00am July 12, 2024 9:53am supplement Start: 12-09-2023 End: 07-12-2024 Magnesium 250 mg tablet Disc ontinued 420 mg PO TWICE A DAY December 09, 2023 12:00am July 12, 2024 9:53am Start: 12-09-2023 Magnesium 250 mg tablet Active 420 mg PO TWICE A DAY December 09, 2023 12:00am Start: 11-17-2023 End: 12-09-2023 take 1 tablet by mouth twice daily Magnesium 250 mg tablet Discontinued 250 mg PO TWICE A DAY 10 November 17, 2023 12:00am December 09, 2023 4:03pm Start: 11-17-2023 End: 12-09-2023 take 1 tablet by mouth twice daily Magnesium 250 mg tablet Discontinued 250 mg PO TWICE A DAY 10 November 17, 2023 12:00am December 09, 2023 4:03pm meclizine hydrochloride 25 mg oral tablet (20 sources) Antiemetic Start: 12-13-2022 End: 12-13-2023 take 1 tablet by mouth every eight hours as needed for dizziness Meclizine 25 mg tablet Discontinued 25 mg PO EVERY 8 HOURS NEEDED as needed for Dizziness 20 October 24, 2023 12:50am December 13, 2023 12:18pm On Hold: Pt has been DC'd melatonin 3 mg oral tablet (2 sources) Start: 11-14-2024 End: 11-20-2024 meloxicam 15 mg oral tablet (20 sources) Nonsteroidal Anti-inflammatory Drug Start: 03-01-2017 End: 05-19-2018 take 1 tablet by mouth once daily Meloxicam 15 MG tablet Discontinued 15 mg PO DAILY March 01, 2017 1:00am May 19, 2018 4:32pm pain take 1 tablet by mouth twice tammie ly meloxicam (MOBIC) 7.5 mg tablet Take 7.5 mg by mouth twice daily. 0 Active Comment on above: Take 7.5 mg by mouth twice daily. mesalamine 1200 mg delayed release oral tablet (20 sources) Aminosalicylate Start: 02-23-20 End: 07-05-19 take 2 tablets by mouth once daily Mesalamine 1.2 gram tablet,delayed release (DR/EC) Discontinued 2.4 g PO DAILY 60 0 December 30, 2022 3:56pm January 13, 2023 4:46pm Start: 02-22-2022 End: 07-05-2023 take 2.4 g by mouth once daily Mesalamine Discontinued 2.4 GM PO DAILY 60 December 30, 2022 3:56pm January 13, 2023 4:46pm methocarbamol 500 mg oral tablet (7 sources) Muscle Relaxant Start: 11-13-2024 End: 11-20-2024 take 1 tablet by mouth every eight hours as needed metoprolol tartrate 25 mg oral tablet (20 sources) beta-Adrenergic Zoey Start: 06-08-2024 Metopr olol Tartrate 25 mg oral tablet Dose : 12.5 mg = 0.5 tab(s), Oral, BID, 0 Refill(s) Start Date: 06/08/24 Status: Ordered Repeat number: 1 Start: 11-25-2023 take 0.5 tablet by m outh twice daily metoprolol tartrate (Lopressor) 25 MG tablet TAKE 1/2 TABLET BY MOUTH TWO TIMES A DAY 11/25/2023 Active Start: 11-25-2023 End: 11-20-2024 Start: 07-05-2023 End: 12-13-2023 Metoprolol Tartrate 25 mg ta blet Discontinued 12.5 mg PO DAILY July 05, 2023 10:47am December 13, 2023 12:24pm Start: 07-05-2023 take 12.5 mg by mout h once daily Metoprolol Tartrate Active 12.5 MG PO DAILY July 05, 2023 10:47am Start: 01-02-2019 metoprolol tar trate, short acting, (LOPRESSOR) 25 mg tablet TAKE 1 2 (ONE HALF) TABLET BY MOUTH TWICE DAILY FOR HEART BLOOD PRESSURE 11 01/02/2019 Active Start: 08-18-2018 End: 07-05-2023 Metoprolol Tartrate 25 mg ta blet Discontinued 12.5 mg PO TWICE A DAY 90 3 July 05, 2023 8:14am July 05, 2023 10:48am Start: 08-18-2018 End: 07-05-2023 take 12.5 mg by mouth twice daily Metoprolol Tartrate Discontinued 12.5 MG PO TWICE A DAY 90 July 05, 2023 8:14am July 05, 2023 10:48am Start: 08-23-2013 End: 01-30-2018 Metoprolol Tartrate 25 MG ta blet Discontinued 12.5 mg PO TWICE A DAY August 23, 2013 12:00am January 30, 2018 4:56pm heart/blood pressure Start: 08-23-2013 End: 01-30-2018 take 12.5 mg by mouth twice daily Metoprolol Tartrate Discontinued 12.5 MG PO TWICE A DAY August 23, 2013 12:00am January 30, 2018 4:56pm Comment on above: TAKE 1 2 (ONE HALF) TABLET BY MOUTH TWICE DAILY FOR HEART BLOOD PRESSURE metroNIDAZOLE 500 mg oral tablet (20 sources) Nitroimidazole Antimicrobial Start: 01-15-20 End: 02-23-20 take 1 tablet by mouth every six hours Metronidazole 500 MG tablet Discontinued 500 mg PO EVERY 6 HOURS 40 0 January 14, 2022 1:00am February 22, 2022 8:50am 1 ml morphine sulfate 4 mg/ml cartridge (2 sources) Opioid Agonist Start: 11-14-19 End: 11-14-19 Multivitamin With Folic Acid (19 sources) Start: 08-24-19 14 End: 04-11-19 18 take 0.5 tablet by mouth once daily Multivitamin With Folic Acid Discontinued 0.5 TABLET PO DAILY August 22, 2013 11:00pm April 11, 2017 2:53pm Start: 08-23-2013 End: 04-11-2017 take 0.5 tablet by mouth once daily Multivitamin With Folic Acid Discontinued 0.5 TABLET PO DAILY August 23, 2013 12:00am April 11, 2017 3:53pm Multivitamin With Folic Acid 1 TABLET tablet (7 sources) Start: 08-23-2013 End: 04-11-2017 take 1 tablet by mouth once daily Multivitamin With Folic Acid 1 TABLET tablet Discontinued 0.5 {tbl} PO DAILY August 23, 2013 12:00am April 11, 2017 3:53pm mupirocin 0.02 mg/mg topical ointment (2 sources) RNA Synthetase Inhibitor Antibacterial Start: 11-13-2024 End: 11-18-2024 Nirmatrelvir-Ritona vir (20 sources) Start: 11-20-2021 End: 02-23-2022 Nirmatrelvir-Riton avir (Paxlovid (Eua)) 300 mg (150 mg x 2)-100 mg tablets,dose pack Discontinued 0 PO .COMPLEX 30 November 20, 2021 12:00am February 23, 2022 11:20am take TWO 150 mg tablets of nirmatrelvir with ONE 100 mg tablet of ritonavir twice daily for 5 days PO Start: 11-20-2021 End: 02-23-2022 Nirmatrelvir-Ritonavir (Paxl ovid (Eua)) 300 mg (150 mg x 2)-100 mg tablets,dose pack Discontinued 0 PO .COMPLEX November 20, 2021 12:00am February 23, 2022 11:20am take TWO 150 mg tablets of nirmatrelvir with ONE 100 mg tablet of ritonavir twice daily for 5 days PO Start: 11-20-2021 End: 02-23-2022 Nirmatrelvir-Ritonavir (Paxl ovid (Eua)) 300 mg (150 mg x 2)-100 mg tablets,dose pack Discontinued 0 PO .COMPLEX November 19, 2021 11:00pm February 23, 2022 10:20am take TWO 150 mg tablets of nirmatrelvir with ONE 100 mg tablet of ritonavir twice daily for 5 days PO Start: 11-20-2021 Nirmatrelvir-R itonavir (Paxlovid (Eua)) 300 mg (150 mg x 2)- 100 mg tablets,dose pack Active 0 PO .COMPLEX November 19, 2021 11:00pm take TWO 150 mg tablets of nirmatrelvir with ONE 100 mg tablet of ritonavir twice daily for 5 days PO nitrofurantoin, macrocrystals 25 mg / nitrofurantoin, monohydrate 75 mg oral capsule (12 sources) Nitrofuran Antibacterial Start: 05-19-2023 End: 05-26-2023 take 1 capsule by mouth every twelve hours at mealtime Nitrofurantoin Monohyd/M-Cryst (Macrobid) 100 mg capsule Discontinued 100 mg PO Q12H 14 7 0 May 19, 2023 12:00am May 25, 2023 12:00am May 26, 2023 12:06am must administer with a meal/food Nitroglycerin 0.1 MG/HR Adh..Patch (7 sources) Start: 01-28-2013 End: 03-16-2013 apply 0.1 mg transdermal route once daily Nitroglycerin 0.1 MG/HR Adh..Patch Discontinued 0.1 mg TRANSDERM. DAILY January 28, 2013 1:00am March 16, 2013 2:47pm Tiotropium-Olodatero l (20 sources) Anticholinergic, beta2-Adrenergic Agonist Start: 03-05-2019 End: 11-17-2023 Tiotropium-Olodater ol (Stiolto Respimat) 2.5-2.5 mcg/actuation mist Discontinued 2 NMA INHALATION DAILY March 05, 2019 1:00am November 17, 2023 8:57pm breathing Start: 03-05-2019 End: 11-17-2023 Tiotropium-Olodaterol (Stiol to Respimat) 2.5-2.5 mcg/actuation mist Discontinued 2 NMA INHALATION DAILY March 05, 2019 1:00am November 17, 2023 8:57pm Start: 03-05-2019 Tiotropium-Olo daterol (Stiolto Respimat) 2.5-2.5 mcg/actuation mist Active 2 PUFF INHALATION DAILY March 05, 2019 12:00am Start: 03-05-2019 Tiotropium-Olo daterol (Stiolto Respimat) 2.5-2.5 mcg/actuation mist Active 2 PUFF INHALATION DAILY March 05, 2019 1:00am polyethylene glycol 3350 [id number] mg powder for oral solution (2 sources) Osmotic Laxative Start: 11-13-2024 End: 11-20-2024 take 17 g by mouth every twenty-four hours as needed for constipation microencapsulated potassium chloride 10 meq extended release oral tablet (20 sources) Start: 11-18-2024 End: 11-18-2024 Start: 11-16-2024 End: 11-16-2024 Start: 11-15-2024 End: 11-15-2024 Start: 11-13-2024 End: 11-14-2024 Start: 11-17-2023 End: 12-13-2023 take 40 mEq by mouth twice daily Potassium Chloride 40 mEq/15 mL liquid Discontinued 40 meq PO TWICE A DAY 150 5 0 November 17, 2023 12:00am December 13, 2023 12:18pm On Hold: Pt has been DC'd Start: 03-05-2019 End: 03-31-2023 take 2 tablets by mouth once daily Potassium Chloride Discontinued 20 MEQ PO DAILY 180 April 05, 2022 5:25pm March 31, 2023 8:48am takes 2 tabs daily Start: 01-02-2019 take 2 tablets by mo uth once daily potassium chloride (K-TAB) 10 mEq tablet Take 20 mEq by mouth once daily. 12 01/02/2019 Active Start: 08-18-2018 End: 07-12-2024 take 2 tablets by mouth once daily Potassium Chloride 10 mEq tablet,ER particles/crystals Discontinued 0 .ROUTE .COMPLEX 60 10 March 31, 2023 8:48am July 12, 2024 9:53am TAKE TWO (2) TABLETS BY MOUTH DAILY Start: 08-18-2018 End: 02-22-2019 take 2 mEq by mouth once daily Potassium Chloride Disc ontinued 2 MEQ PO DAILY August 18, 2018 12:00am February 22, 2019 11:43am Start: 08-23-2013 End: 05-04-2018 take 2 tablets by mouth once daily Potassium Chloride 10 MEQ tablet extended release Discontinued 20 meq PO DAILY 60 12 April 07, 2017 8:29am May 04, 2018 10:18am Start: 08-23-2013 End: 05-04-2018 take 20 mEq by mouth once daily Potassium Chloride Dis continued 20 MEQ PO DAILY 60 April 07, 2017 8:29am May 04, 2018 10:18am Comment on above: Take 20 mEq by mouth once daily. pravastatin sodium 20 mg ora l tablet (20 sources) HMG-CoA Reductase Inhibitor Start: 11-13-2024 End: 11-20-2024 Start: 11-25-2023 pravastatin (P ravachol) 80 MG tablet 80 mg. 11/25/2023 Active Start: 11-25-2023 Start: 08-18-2018 End: 07-08-2023 take 1 tablet by mouth at bedtime Pravastatin 80 mg tablet Discontinued 80 mg PO AT BEDTIME 90 3 July 15, 2022 5:01pm July 08, 2023 11:57am Start: 08-23-2013 End: 01-30-2018 take 1 tablet by mouth at bedtime Pravastatin 80 MG tablet Discontinued 80 mg PO AT BEDTIME August 23, 2013 12:00am January 30, 2018 4:56pm Start: 01-28-2013 End: 06-20-2013 take 1 tablet by mouth at bedtime Pravastatin 40 MG tablet Discontinued 40 mg PO AT BEDTIME January 28, 2013 1:00am June 20, 2013 10:06am Start: 10-09-2012 take 1 tablet by pepe th once daily at bedtime pravastatin (PRAVACHOL) 20 mg tablet Take 1 tablet by mouth daily at bedtime. 0 10/09/2012 Active Comment on above: Take 1 tablet by pepe th daily at bedtime. predniSONE 20 mg oral tablet (20 sources) Start: 9 End: 9 take 1 tablet by mouth once daily Prednisone 20 MG tablet Discontinued 20 mg PO DAILY 7 0 May 05, 2018 1:00am May 19, 2018 4:35pm racepinephrine 22.5 mg/ml inhalation solution (2 sources) Start: End: Start: 11-14-2024 End: 11-14-2024 5 ml sodium chloride 9 mg/ml injection (16 sources) Start: 11-19-2024 End: 11-20-2024 take 10 mL intraluminal route every twelve hours Start: 11-13-2024 End: 11-20-2024 Start: 11-13-2024 End: 11-20-2024 tiZANidine 4 mg oral capsule (18 sources) Central alpha-2 Adrenergic Agonist Start: 08-25-2022 End: 11-17-2023 take 1 capsule by mouth three times daily as needed Tizanidine (Zanaflex) 4 mg capsule Discontinued 4 mg PO THREE TIMES A DAY as needed for muscle spasticity August 25, 2022 12:00am November 17, 2023 8:57pm traMADol hydrochloride 50 mg oral tablet (18 sources) Opioid Agonist Start: 08-25-2022 End: 02-01-2023 take 1 tablet by mouth twice daily as needed for pain Tramadol 50 mg tablet Discontinued 50 mg PO TWICE A DAY as needed for pain August 25, 2022 12:00am February 01, 2023 10:34am trospium chloride 20 mg oral tablet (2 sources) Cholinergic Muscarinic Antagonist Start: 11-14-2024 End: 11-20-2024 (8 sources) Start: 11-15-2024 End: 11-20-2024 Start: 11-14-2024 End: 11-15-2024 Start: 11-13-2024 End: 11-20-2024 take 4 mg by mouth every eight hours as needed for nausea and vomiting [Order 1 Start] Name: ondansetron ODT (Zofran-ODT) disintegrating tablet 4 mg Signed Summary: 4 mg, Oral, Every 8 hours PRN, nausea, vomiting, Starting on Tue11/13/24 at 1745, 1st Line. If inadequate response within 60 minutes, proceed to next-line agent or contact provider if no further options ordered. Patient should allow tablet to dissolve on tongue. Do not remove from blister pack until just before administering. [Order 1 End] [Order 2 Start] Name: ondansetron (Zofran) injection 4 mg Signed Summary: 4 mg, IntraVENous, Every 6 hours PRN, nausea, vomiting, Starting on Tue11/13/24 at 1745, 1st Line. Give IV if patient is unable to take orally. If inadequate response within 60 minutes, proceed to next-line agent or contact provider if no further options ordered. [Order 2 End] Start: 11-13-2024 End: 11-13-2024 (6 sources) Start: 11-14-2024 End: 11-14-2024 (2 sources) Start: 11-13-2024 End: 11-14-2024 (2 sources) Start: 11-13-2024 End: 11-13-2024 Problems Active Problems Problem Classification Problem Date Documented Da te Episodic/Chronic Abdominal pain (20 sources) Nonspecific abdominal pain; Translations: [Unspecified abdominal pain] 08-19-2018 Episodic Anxiety disorders (20 sources) Mixed anxiety and depressive disorder; Translations: [Other specified anxiety disorders] 08-18-2018 Chronic Cardiac dysrhythmias (20 sources) Sick sinus syndrome; Translations: [Sick sinus syndrome] Onset: Chronic Comment on above: Patient's heart rate is 67 appears to be regularPacer interrogation was not performed today. Chronic obstructive pulmonary disease and bronchiectasis (20 sources) Chronic obstructive lung disease; Translations: [Chronic obstructive pulmonary disease, unspecified] 08-19-2018 Chronic Complication of device; implant or graft (20 sources) Malfunction of cardiac pacemaker; Translations: [Breakdown (mechanical) of cardiac pulse generator (battery), initial encounter] 05-17-2023 Episodic Conditions associated with dizziness or vertigo (20 sources) Peripheral vertigo; Translations: [Other peripheral vertigo, unspecified ear] 12-21-2022 Episodic Conduction disorders (20 sources) H/O: cardiac pacemaker in situ; Translations: [Presence of cardiac pacemaker] Chronic Comment on above: PPM generator change on 05/23/23 Coronary atherosclerosis and other heart disease (20 sources) Coronary arteriosclerosis; Translations: [Atherosclerotic heart disease of [place] coronary artery without angina pectoris] Onset: 3 10-09-2012 Chronic Comment on above: cabg x 3 stent cath 2006 S/P CABG 06/29/2006 with SANDHU to LAD, SVG to diagonal, & SVG to RCA; PCI to prox LAD 06/2006 post CABG; Disorders of lipid metabolism (1 source) Hyperlipidemia; Translations: [Hyperlipidemia, unspecified] Onset: 3 10-09-2012 Chronic E Codes: Fall (9 sources) Accidental fall ; Translations: [Unspecified fall, initial encounter] 11-01-2023 Episodic Esophageal disorders (18 sources) Gastroesophageal reflux disease; Translations: [Gastro-esophageal reflux disease without esophagitis] 12-10-2022 Chronic Essential hypertension (20 sources) Hypertensive disorder; Translations: [Essential (primary) hypertension] Onset: 3 10-09-2012 Chronic Fluid and electrolyte disorders (7 sources) Acute hypokalemia; Translations: [Hypokalemia] 11-26-2023 Episodic Gastrointestinal hemorrhage (20 sources) Rectal hemorrhage; Translations: [Hemorrhage of anus and rectum] Onset: 3 06-30-2012 Episodic Headache; including migraine (20 sources) Headache; Translations: [Headache] 08-19-2018 Episodic Malaise and fatigue (7 sources) Asthenia; Translations: [Weakness] 12-09-2023 Episodic Nausea and vomiting (20 sources) Nausea, vomiting and diarrhea; Translations: [Nausea with vomiting, unspecified] 08-19-2018 Episodic Noninfectious gastroenteritis (20 sources) Colitis; Translations: [Noninfective gastroenteritis and colitis, unspecified] 01-22-2022 Episodic Nonspecific chest pain (20 sources) Atypical chest pain; Translations: [Other chest pain] Onset: 5 12-10-2022 Episodic Occlusion or stenosis of precerebral arteries (1 source) Occlusion and stenosis of bilateral carotid arteries; Translations: [Occlusion and stenosis of bilateral carotid arteries] Onset: 5 Chronic Other aftercare (20 sources) Long-term current use of anticoagulant; Translations: [residential (current) use of anticoagulants] 08-18-2018 Episodic Comment on above: Patient is been on l marissa-term Coumadin managed through the [facility] office. Other aftercare (6 sources) residential (current) use of anticoagulants; Translations: [Long-term (current) use of anticoagulants] 05-17-2023 Episodic Other and unspecified benign neoplasm (20 sources) Adrenal adenoma; Translations: [Benign neoplasm of unspecified adrenal gland] 08-19-2018 Episodic Other circulatory disease (1 source) Disorder of carotid artery; Translations: [Disorder of arteries and arterioles, unspecified] Onset: 3 10-09-2012 Chronic Other circulatory disease (13 sources) Low blood pressure; Translations: [Hypotension, unspecified] 08-30-2024 Episodic Other gastrointestinal disorders (12 sources) Diarrhea; Translations: [Diarrhea, unspecified] 05-20-2023 Episodic Other injuries and conditions due to external causes (2 sources) Closed injury of head; Translations: [Unspecified injury of head, initial encounter] 11-09-2024 Episodic Other injuries and conditions due to external causes (1 source) Encounter for examination and observation following other accident; Translations: [Encounter for examination and observation following other accident] Onset: 5 Episodic Other lower respiratory disease (20 sources) Dyspnea on exertion; Translations: [Dyspnea, unspecified] 06-04-2021 Episodic Other lower respiratory disease (2 sources) Dyspnea, unspecified; Translations: [Other respiratory abnormalities] Episodic Other lower respiratory disease (10 sources) Other forms of dyspnea; Translations: [Other respiratory abnormalities] Episodic Other nervous system disorders (7 sources) Bilateral carpal tunnel syndrome; Translations: [Carpal tunnel syndrome, bilateral upper limbs] Onset: 5 08-13-2024 Chronic Other nervous system disorders (1 source) Polyneuropathy, unspecified; Translations: [Polyneuropathy, unspecified] Onset: 5 Chronic Other nervous system disorders (1 source) Carpal tunnel syndrome, bilateral upper limbs; Translations: [Carpal tunnel syndrome, bilateral upper limbs] Onset: 5 Chronic Other nervous system disorders (7 sources) Paresthesia; Translations: [Paresthesia of skin] 11-26-2023 Episodic Other nervous system disorders (7 sources) Ataxia; Translations: [Ataxia, unspecified] 12-21-2023 Episodic Other nervous system disorders (1 source) Anesthesia of skin; Translations: [Anesthesia of skin] Onset: 5 Episodic Other nutritional; endocrine; and metabolic disorders (7 sources) Hypomagnesemia; Translations: [Hypomagnesemia] 11-26-2023 Chronic Other screening for suspected conditions (not mental disorders or infectious disease) (14 sources) Deviation of international normalized ratio from target range; Translations: [Abnormal coagulation profile] 11-26-2023 Episodic Peripheral and visceral atherosclerosis (20 sources) Peripheral vascular disease; Translations: [Peripheral vascular disease, unspecified] Onset: 5 08-18-2018 Chronic Comment on above: ? bilateral LE stent s Phlebitis; thrombophlebitis and thromboembolism (2 sources) Acute deep venous thrombosis of calf; Translations: [Acute embolism and thrombosis of calf muscular vein, bilateral] 11-13-2024 Episodic Residual codes; unclassified (20 sources) Tobacco use and exposure - finding; Translations: [Tobacco use] 08-18-2018 Episodic Residual codes; unclassified (9 sources) Transient alteration of awareness; Translations: [Transient alteration of awareness] Onset: 5 11-13-2024 Episodic Respiratory failure; insufficiency; arrest (adult) (2 sources) Acute respiratory failure with hypoxia; Translations: [Acute respiratory failure with hypoxia (HCC)] Onset: 5 Episodic Septicemia (except in labor) (6 sources) Sepsis; Translations: [Sepsis, unspecified organism] Onset: 5 11-13-2024 Episodic Spondylosis; intervertebral disc disorders; other back problems (20 sources) Chronic back pain ; Translations: [Dorsalgia, unspecified] 08-18-2018 Episodic Superficial injury; contusion (2 sources) Contusion of right elbow; Translations: [Contusion of right elbow, initial encounter] 11-09-2024 Episodic Unclassified (1 source) Unknown / UNK(Unknown) Onset: 8 Unclassified (2 sources) Acute embolism and thrombosis of calf muscular vein, bilateral; Translations: [Acute embolism and thrombosis of calf muscular vein, bilateral (HCC)] Onset: 5 Urinary tract infections (4 sources) Lower urinary tract infectious disease; Translations: [Urinary tract infection, site not specified] Onset: 5 11-13-2024 Episodic Viral infection (20 sources) Disease caused by 2019-nCoV; Translations: [COVID-19] Episodic Past or Other Problems Problem Classification Problem Date Documented Da te Episodic/Chronic Cardiac dysrhythmias (20 sources) Bradycardia; Translations: [Bradycardia, unspecified] Onset: 08-30-2024 08-18-2018 Episodic Other circulatory disease (1 source) Hypotension, unspecified; Translations: [Hypotension, unspecified] Onset: 09-04-2024 Episodic Unclassified (1 source) R73.02 Onset: 07-21-2017 Results Test Name Value Interpretation Reference Range Facility 12-27-2024 36 Blood culture result s received. No growth after [address] 12-26-2024 36 Called and spoke to nurse Steve at [facility] to follow up on blood cultures. Steve stated that unable to see any final results in the computer. Called [facility] who is the lab the facility uses to see if results are in. Staff stated there is no growth at 24 and 48 hours. Today they would be finalizing results since it is the 5th day. Office can call back tomorrow 12/27/24 to get final results. Will follow up on 12/27/24. Phone number for lab- [phone]. [address] 12-25-2024 36 Called [facility] renteria spoke to AMINA Jarquin to see if blood cultures were drawn. She stated that cultures were drawn on 12/21/24 but the computer is saying on their end preliminary. She is new at the [facility] and does not have access to see further results. She is going to talk to another nurse and get results for us and will fax. Awaiting results. [facility] 36 12-11-2024 36 Sophiebiggers called karel newton and the patient does see Dr Pérez and will be following with him on 12-26-24 [facility] 36 I called Sylvie. LM for Milka to call back to ask if the patient is following with Dr Pérez. [facility] 36on 12-10-2024 36 Per Kamla, I massey d and lmom asking Sophiebiggers to call back regarding upcoming scheduled appointment. [phone]. Kamla asked me to see if she is still following with Dr Pérez as mentioned in the consult notes. If she is, we will ask her to schedule with his office for follow up [facility] 36on 11-22-2024 36 Pt dc to [facility] [phone]. Called facility and spoke to CLEMENTE Cason to verify IV med, dose, frequency, EOT, weekly labs, and BCX2 on 12/20. Pt has no follow up appt, so okay to pull PICC after last dose. She was able to read back orders. [facility] [id number] 11-19-2024 [id number] [facility] Palliative Care Transitions of Care Note Divya Joseph : 1950 ADMIT DATE: 11/13/2024 DISCHARGE DATE: 11/19/24 PRIMARY CARE PHYSICIAN: Rosanne Waddell DO CODE STATUS: Full Code DISCHARGE DIAGNOSES: Principal Problem: Transient alteration of awareness HOSPITAL COURSE: Divya Joseph is a 74 y.o. female with PMH CAD s/p CABG, HTN, A-fib, COPD, anemia, PVD, dysphagia, debility. She presented to ED from SNF with altered mentation. Pt also had been having fevers and reported abdominal pain as well as R rib pain, increased urgency & difficulty urinating. Pt also experienced LE swelling, chills, fatigue, shortness of breath. CTA chest showing RUL segmental PE. Troponin elevated. Initially admitted to [facility]. However, required transfer to ICU due to hypotension, requiring pressors. Palliative care consulted for goals of care. 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 Coli - Urine culture +E. coli - UA + moderate bacteria, WBC >100, leukocytes 500 Chronic Pain -PRN tylenol - Robaxin PRN for muscle spasms Acute encephalopathy, improved - Geriatrics consulted -CT head--> No CT evidence of an acute intracranial abnormality. -A&Ox3 during exam Debility - Resides at [facility] -PT/OT as able -typically uses wheelchair - had a fall about 1 week ago CAD s/p CABG HTN Afib Elevated Troponin - Cardiology consulted -ECHO--> Normal left ventricular systolic function. 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 - On easy to chew diet Palliative Care Encounter -Code Status: Full Code SIGNIFICANT DIAGNOSTIC STUDIES: N/a CODE STATUS DISCUSSIONS: Full Code SYMPTOM MANAGEMENT MEDICATIONS: N/a RECOMMENDED NEXT STEPS: Dc to [facility] FOLLOW UP TESTING, PENDING RESULTS OR REFERRALS AT TRANSITIONAL CARE VISIT: No PENDING STUDIES: No DISPOSITION: Skilled Rehab Facility FACILITY/HOME CARE AGENCY NAME: [facility] Follow up with Nursing facility Reason for Outpatient/Home/ECF Palliative Care follow-up: N/A Opiate Prescribing N/A SIGNED: Gerald Triplett APRN - ORACLE DATABASE ADMINISTRATOR 11/19/2024, 9:05 PM [facility] [phone] Call placed to Rey wilbert payton notify him of patients discharge. Answered all questions/concerns. Transport set for 6 PM to [facility]. [facility] [phone] Confirmed pickup jarrod e of 6:45 pm by transport [employer] at phone number [phone]. Location of facility drop off is [facility]. Facility notified via [facility], TCC notified on secure chat. [facility] [id number] MAY, Rec and Discharge Paperwork sent to [facility] via [facility] per TCC request. [facility] [phone] Faxed/emailed DEBORAH Mercer at [email or web address]. WORKSITE WELLNESS PRACTITIONER to set up transport. [facility] BASIC METABOLIC PANELon - Anion gap [Moles/Vol] 10 mmol/L Normal 3-13 [facility] Comment on above: Performed By: #### L AB103, LAB15 ####Wood Experimental Mechanic: THERON PERRY ([id number])[facility] ([facility])[address] Calcium [Mass/Vol] 8.1 mg/dL Low 8.8-10.0 [facility] Comment on above: Performed By: #### L AB103, LAB15 ####Wood Experimental Mechanic: THERON PERRY ([id number])[facility] ([facility])[address] [place] [address] [place] Chloride [Moles/Vol] 103 mmol/L Normal 98-107 [facility] Comment on above: Performed By: #### L AB103, LAB15 ####Wood Experimental Mechanic: THERON PERRY ([id number])[facility] ([facility])[address] [place] [address] [place] CO2 [Moles/Vol] 26 mmol/L Normal 23-31 [facility] Comment on above: Performed By: #### L AB103, LAB15 ####Wood Experimental Mechanic: THERON PERRY ([id number])[facility] ([facility])[address] [place] [address] [place] Creatinine [Mass/Vol] 0.65 mg/dL Normal 0.57-1.11 [facility] Comment on above: Performed By: #### L AB103, LAB15 ####Wood Experimental Mechanic: THERON PERRY ([id number])[facility] GLOMERULAR FILTRATION RATE ML/MIN/1.73 SQ M.PREDICTED >90.0 Normal >60.0 [facility] Comment on above: Result Comment: Calc ulation based on the Chronic Kidney Disease Epidemiology Collaboration (CKD-EPI) equation refit without adjustment for race Performed By: #### L AB103, LAB15 ####Wood Experimental Mechanic: THERON PERRY ([id number])[facility] ([facility])[address] Glucose [Mass/Vol] 119 mg/dL High 82-115 [facility] Comment on above: Performed By: #### L AB103, LAB15 ####Wood Experimental Mechanic: THERON PERRY ([id number])[facility] ([facility] [place] [address] Potassium [Moles/Vol] 3.7 mmol/L Normal 3.5-5.1 [facility] Comment on above: Result Comment: [facility] potassium values may be up to 0.5 mmol/L lower than serum values. Performed By: #### L AB103, LAB15 ####Wood Experimental Mechanic: THERON PERRY ([id number])[facility] ([facility])[address] [place] [address] [place] Sodium [Moles/Vol] 139 mmol/L Normal 136-145 [facility] Comment on above: Performed By: #### L AB103, LAB15 ####Wood Experimental Mechanic: THERON PERRY ([id number])[facility] ([facility] Urea nitrogen [Mass/Vol] 14 mg/dL Normal 9-23 [facility] Comment on above: Performed By: #### L AB103, LAB15 ####Wood Experimental Mechanic: THERON PERRY ([id number])[facility] ([facility])[address] Basic metabolic 1998 panelon 11-19-2024 Anion gap [Moles/Vol] 10 mmol/L 3 - 13 mmol/L [facility] Calcium [Mass/Vol] 8.1 mg/dL Low 8.8 - 10. 0 mg/dL [facility] Chloride [Moles/Vol] 103 mmol/L 98 - 10 7 mmol/L [facility] CO2 [Moles/Vol] 26 mmol/L 23 - 31 mmol/L [facility] Creatinine [Mass/Vol] 0.65 mg/dL 0.57 - 1.11 mg/dL [facility] GFR/1.73 sq M.predicted (S/P/Bld) [Vol rate/Area] - PINF [facility] Glucose [Mass/Vol] 119 mg/dL High 82 - 115 mg/dL [facility] Interpretation and review of laboratory results Abnormal [facility] Potassium [Moles/Vol] 3.7 mmol/L 3.5 - 5.1 mmol/L [facility] Sodium [Moles/Vol] 139 mmol/L 136 - 145 mmol/L [facility] Urea nitrogen [Mass/Vol] 14 mg/dL 9 - 23 mg/dL [facility] CBC W Auto Differential pane l (Bld)Ordered By: Marco Antonio Santamaria on 11-19-2024 Basophils (Bld) [#/Vol] 0 10*3/uL 0.0 - 0.2 10*3/uL [facility] Basophils/100 WBC (Bld) 0.1 % 0.0 - 2.0 % [facility] Eosinophils (Bld) [#/Vol] 0.5 10*3/uL 0.0 - 0.5 10*3/uL [facility] Eosinophils/100 WBC (Bld) 6 % 0.0 - 6.0 % [facility] Erythrocyte distribution width (RBC) [Ratio] 19.1 % High 11.5 - 15.0 % [facility] Hematocrit (Bld) [Volume fraction] 32 % Low 35.0 - 47.0 % [facility] Hemoglobin (Bld) [Mass/Vol] 9.3 g/dL Low 11.7 - 16.0 g/dL [facility] Immature granulocytes (Bld) [#/Vol] 0 10*3/uL NINF - 0.1 10*3/uL [facility] [employer] Immature granulocytes/100 WBC (Bld) 0.4 % 0.0 - 2.0 % [facility] Interpretation and review of laboratory results Abnormal [facility] Lymphocytes (Bld) [#/Vol] 2 10*3/uL 1.0 - 4.3 10*3/uL [facility] Lymphocytes/100 WBC (Bld) 27.1 % 15.0 - 45.0 % [facility] MCH (RBC) [Entitic mass] 24.1 pg Low 26.0 - 34.0 pg [facility] MCHC (RBC) [Mass/Vol] 29.1 % Low 30.5 - 36.0 % [facility] MCV (RBC) [Entitic vol] 82.9 fL 77.0 - 99.0 fL [facility] Monocytes (Bld) [#/Vol] 0.7 10*3/uL 0.0 - 0.9 10*3/uL [facility] Monocytes/100 WBC (Bld) 8.8 % 5.0 - 13.0 % [facility] Neutrophils (Bld) [#/Vol] 4.3 10*3/uL 1.8 - 7.5 10*3/uL [facility] Neutrophils/100 WBC (Bld) 57.6 % 38.0 - 82.0 % [facility] Nucleated RBC/100 WBC (Bld) [Ratio] 0 % [facility] Platelet mean volume (Bld) [Entitic vol] 12.5 fL 9.0 - 12.7 fL [facility] Platelets (Bld) [#/Vol] 234 10*3/uL 140 - 440 10*3/uL [facility] RBC (Bld) [#/Vol] 3.86 10*6/uL 3.80 - 5.2 0 10*6/uL [facility] WBC (Bld) [#/Vol] 7.5 10*3/uL 3.6 - 10.7 10*3/uL [facility] CBC WITH AUTO DIFFERENTIALon 11-19-2024 Basophils (Bld) [#/Vol] 0.0 10*3/uL Normal 0.0-0.2 [facility] Comment on above: Performed By: #### L [id number] ####Wood Experimental Mechanic: THERON PERRY ([id number])[facility] ([facility])[address] Basophils/100 WBC (Bld) 0.1 % Normal 0.0-2.0 [facility] Comment on above: Performed By: #### L [id number] ####Wood Experimental Mechanic: THERON PERRY ([id number])[facility] ([facility])[address] Eosinophils (Bld) [#/Vol] 0.5 10*3/uL Normal 0.0-0.5 [facility] Comment on above: Performed By: #### L [id number] ####Wood Experimental Mechanic: THERON PERRY ([id number])[facility] ([facility])[address] Eosinophils/100 WBC (Bld) 6.0 % Normal 0.0-6.0 [facility] Comment on above: Performed By: #### L [id number] ####Wood Experimental Mechanic: THERON PERRY ([id number])[facility] Erythrocyte distribution width (RBC) [Ratio] 19.1 % High 11.5-15.0 [facility] Comment on above: Performed By: #### L [id number] ####Wood Experimental Mechanic: THERON PERRY ([id number])[facility] ([facility])[address] [place] [address] Hematocrit (Bld) [Volume fraction] 32.0 % Low 35.0-47.0 [facility] Comment on above: Performed By: #### L [id number] ####Wood Experimental Mechanic: THERON PERRY ([id number])[facility] ([facility])[address] Hemoglobin (Bld) [Mass/Vol] 9.3 g/dL Low 11.7-16.0 [facility] Comment on above: Performed By: #### L [id number] ####Wood Experimental Mechanic: THERON PERRY ([id number])[facility] ([facility])[address] IMMATURE GRANS % 0.4 % Normal 0.0-2.0 [facility] [facility] Comment on above: Performed By: #### L [id number] ####Wood Experimental Mechanic: THERON PERRY ([id number])[facility] ([facility])[address] IMMATURE GRANS ABSOLUTE 0.0 10*3/uL Normal <0.1 [facility] Comment on above: Performed By: #### L [id number] ####Wood Experimental Mechanic: THERON PERRY ([id number])[facility] (SBHLAB)[address] Lymphocytes (Bld) [#/Vol] 2.0 10*3/uL Normal 1.0-4.3 [facility] Comment on above: Performed By: #### L [id number] ####Wood Experimental Mechanic: THERON PERRY ([id number])[facility] ([facility])[address] Lymphocytes/100 WBC (Bld) 27.1 % Normal 15.0-45.0 [facility] Comment on above: Performed By: #### L [id number] ####Wood Experimental Mechanic: THERON PERRY ([id number])[facility] (SB[facility]AB)[address] MCH (RBC) [Entitic mass] 24.1 pg Low 26.0-34.0 [facility] Comment on above: Performed By: #### L [id number] ####Wood Experimental Mechanic: THERON PERRY ([id number])[facility] ([facility])[address] MCHC 29.1 % Low 30.5-36.0 [facility] Comment on above: Performed By: #### L [id number] ####Wood Experimental Mechanic: THERON PERRY ([id number])[facility] (SBHLAB)[address] MCV (RBC) [Entitic vol] 82.9 fL Normal 77.0-99.0 [facility] Comment on above: Performed By: #### L [id number] ####Wood Experimental Mechanic: THERON PERRY ([id number])[facility] (SBHLAB)[address] Monocytes (Bld) [#/Vol] 0.7 10*3/uL Normal 0.0-0.9 [facility] Comment on above: Performed By: #### L [id number] ####Wood Experimental Mechanic: THERON PERRY ([id number])[facility] (SBHLAB)[address] Monocytes/100 WBC (Bld) 8.8 % Normal 5.0-13.0 [facility] Comment on above: Performed By: #### L [id number] ####Wood Experimental Mechanic: THERON PERRY ([id number])[facility] ([facility])[address] NEUTROPHILS ABSOLUTE 4.3 10*3/uL Normal 1.8-7.5 [facility] Comment on above: Performed By: #### L [id number] ####Wood Experimental Mechanic: THERON PERRY ([id number])[facility] (SBHLAB)[address] Neutrophils/100 WBC (Bld) 57.6 % Normal 38.0-82.0 [facility] Comment on above: Performed By: #### L [id number] ####Wood Experimental Mechanic: THERON PERRY ([id number])[facility] (SBHLAB)[address] [place] [address] [place] NRBC 0.0 /100 WBCs Normal 0.0-2.0 [facility] Comment on above: Performed By: #### L [id number] ####Wood Experimental Mechanic: THERON PERRY ([id number])[facility] ([facility])[address] Platelet mean volume (Bld) [Entitic vol] 12.5 fL Normal 9.0-12.7 [facility] Comment on above: Performed By: #### L [id number] ####Wood Experimental Mechanic: THERON PERRY ([id number])[facility] (SBHLAB)[address] Platelets (Bld) [#/Vol] 234 10*3/uL Normal 140-440 [facility] Comment on above: Performed By: #### L [id number] ####Wood Experimental Mechanic: THERON PERRY ([id number])[facility] (SB[facility]AB)[address] RBC (Bld) [#/Vol] 3.86 10*6/uL Normal 3.80-5.20 [facility] Comment on above: Performed By: #### L [id number] ####Wood Experimental Mechanic: THERON PERRY ([id number])[facility] (SB[facility]AB)[address] WBC (Bld) [#/Vol] 7.5 10*3/uL Normal 3.6-10.7 [facility] Comment on above: Performed By: #### L [id number] ####Wood Experimental Mechanic: THERON PERRY ([id number])[facility] (SBHLAB)[address] Laboratory - Chemistry and C hemistry - challengeon 11-19-2024 Magnesium [Mass/Vol] 2 mg/dL 1.6 - 2 .6 mg/dL [facility] - Coagulationon 0 11-19-2024 PT Coag (Bld) [Time] 25.6 s High 9.0 - 12.0 s [facility] MAGNESIUMon 11-19-2024 Magnesium [Mass/Vol] 2.0 mg/dL Normal 1.6-2.6 [facility] Comment on above: Result Comment: MEERA R COMMENTS: Higher values can be expected in females during menses. Performed By: #### L [id number], LAB15 ####Wood Experimental Mechanic: THERON PERRY ([id number])[facility] Magnesium [Mass/Vol]on 11-19 Interpretation and review of laboratory results Normal [facility] Panel Informationon 11-19 [facility] RADIOLOGY [facility] RADIOLOGY [facility] Radiology Study observation (narrative) [facility] Panel InformationOrdered By: Yudi Fisher on 11-19-2024 [facility] [employer] Work Phone: Nursing Noteon 11-19-2024 Nursing Note Wound Care consulted for Pressure Injury Prevention. Pt's Igor= 19, pt is no longer at risk at this time. Skin Care Precaution order set in place. Dietitian consult in place. PT/OT consults in place. Will continue to follow peripherally. Please secure chat message with any questions. Tawana Mercado RN Normal [facility] PROTHROMBIN TIMEon INR Coag (PPP) [Relative time] 2.6 {INR} High 0.9-1.1 [facility] Comment on above: Result Comment: Alex mmended Anticoagulant Therapy: SEE BELOW ----- INR of 2.0 - 3.0 : - Prophylaxis of Venous Thrombosis (high-risk surgery) - Treatment of Venous Thrombosis - Treatment of Pulmonary Embolism (Includes tissue heart valves, Acute Myocardial Infarction to prevent systemic embolism, Valvular Heart Disease, and Atrial Fibrillation) ----- INR of 2.5 - 3.5 : - Mechanical Prosthetic Valves (high risk) - If oral anticoagulant therapy is used to prevent Myocardial Infarction Performed By: #### L [id number] ####Wood Experimental Mechanic: THERON PERRY ([id number])[facility] PT Coag (PPP) [Time] 25.6 s High 9.0-12.0 [facility] Comment on above: Performed By: #### L [id number] ####Wood Experimental Mechanic: THERON PERRY ([id number])[facility] PT Coag (Bld) [Time]on 11-19 INR Coag (PPP) [Relative time] 2.6 {INR} High 0.9 - 1.1 [facility] Interpretation and review of laboratory results Abnormal [facility] Progress Noteon 11-19-2024 Progress Note OCCUPATIONAL THERAPY [facility] Treatment Note Name/MRN: Divya Joseph ([id number]) Date of : 1950 Age: 74 y.o. Room/Bed: B4-458/B4-458 A Visit #: 3 out of 7 Discharge Recommendation: Long Term Facility Prior Level of Function Prior Level of ADL Function: Required Assist Prior Level of Mobility: Required Assist; Device: Wheelchair - manual Prior Level of Transfers: Required Assist Assessment Pt is making good progress with OT for ADLS and transfers with pt overall at a CGA to min A level with good carryover during session. Pt does remain slightly limited from decrease strength and bal. Pt would benefit from ongoing skilled OT tx to max indep with ADLs and transfers. OT is still recommending SNF level therapy at discharge. Subjective Pt supine in bed upon arrival and agreeable to OT tx. Pain: Pt denies any current pain. Medical Precautions: No active isolations Proper PPE donned/doffed in accordance with facility standards. Fall Risk: [place] Fall Risk Score: 85 (High Risk) Precautions/Restrictions: N/A Family/Caregiver Present: none Objective ADLs LE Dressing: Contact Guard, Min Assist Pt training for LB ADLs while seated with intermittent standing with figure 4 tech for initiation of items with extended time to complete and techs to max indep and safety. Bed Mobility Supine to sit: Contact Guard Sit to supine: Contact Guard HOB Elevated Use of bed rail(s) Transfers/Mobility Sit to stand: Min Assist Stand to sit: Min Assist Bedside commode: Min Assist Standing balance: Contact Guard Functional mobility: Min Assist Pt training for transfers to FWW with cues for tech and safety with good carryover by pt. Pt completed BSC transfer with min cues for tech to max indep. Pt completed standing with FWW for ADLS and mob for short distance with min safety cues and marcia up to 2 min intervals. Device(s) used: Front wheeled walker Cognition - WFL Plan Continue acute OT per plan of care. Safety/Education Safety Safety Devices in place: All fall risk precautions in place, call light within reach, left in bed, gait belt, patient at risk for falls, nurse notified, and no alarms engaged upon entry Restraints: No Education Education Given To: patient Education Provided: Precautions, ADL Adaptive Strategies, Transfer Training, Fall Prevention Education, and Discharge Recommendations Education Method: Verbal and Demonstration Barriers to Learning: None Education Outcome: Verbalized Understanding, Demonstrated Understanding, and Continued Education Needed AM-PAC AM-PAC Inpatient Daily Activity Raw Score: 19 ADL Inpatient [facility] G-Code Modifier: CK Goals Patient Stated Goal: get better Encounter Problems Encounter Problems (Active) Balance Patient will maintain dynamic standing balance for 5 minutes with CGA in order to demonstrate decreased risk of falling. (Progressing) Start: 11/15/24 Expected End: 11/22/24 Dressing Upper Extremities Patient will complete upper body dressing MOD I (Not Addressed) Start: 11/15/24 Expected End: 11/22/24 Dressings Lower Extremities Patient will dress lower body MOD I (Progressing) Start: 11/15/24 Expected End: 11/22/24 Toileting Patient will complete toileting tasks at standard toilet with CGA. (Not Addressed) Start: 11/15/24 Expected End: 11/22/24 Transfers Patient will complete functional transfer with rolling walker with CGA in order to prepare for ambulation. (Progressing) Start: 11/15/24 Expected End: 11/22/24 Therapy Time Individual Co-treatment Time In 1340 Time Out 1405 Minutes 25 Timed Code Treatment Minutes: 25 Minutes (1 ADL, 1 ACT) DONOVAN Up/Leah Normal [facility] Progress Note [facility] Anticoagulatio n Management Service (VAN) Inpatient Warfarin Consult HPI: Divya Joseph is a 74 y.o. 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 Medical History[1] Patient is on warfarin for Afib and has a goal INR 2.0 - 3.0. Warfarin is currently managed by [facility]. Pt's home dose of warfarin is 2.5mg daily per [place] at the facility. Pt's last INR in the clinic was 2.6 on 10/29. S/sx of bleeding= hgb 9.3. Noted bruises/bleeds easily on physical inspection with small amount of epistaxis 11/14. Interacting medications= ASA 81 mg Labs: Recent Labs 11/17/24 0453 11/18/24 0100 11/19/24 0332 HGB 8.9* 10.3* 9.3* HCT 30.4* 34.5* 32.0* PLT 191 213 234 Recent Labs 11/19/24 0332 INR 2.6* Date INR Dose 11/19 2.6 1.5mg 11/18 3.1 0.5 mg 11/17 3.4 0.5 mg 11/16 3.4 0.5mg 11/15 3.3 1 mg 11/14 2.3 2.5mg 11/13 2.3 4mg Assessment/Plan: 1. INR is therapeutic today. Trending down, will give warfarin 1.5mg today. 2. Monitor for s/s of bleeding and drug interactions. Will adjust dose accordingly. 3. Warfarin is managed by [facility] outpatient. [facility]AN will manage inpatient and sign off at discharge. [facility] Hanley [facility] Consult Service is available daily [phone] via [employer] Secure Chat. [1] Past Medical History: Diagnosis Date Altered mental status, unspecified Ataxia Atherosclerotic heart disease Bradycardia, unspecified Cognitive communication deficit COPD (chronic obstructive pulmonary disease) (HCC) i was told i had COPD, then I was told i wasn't, i don't know for sure Difficulty walking Dysphagia, oropharyngeal phase Dyspnea Essential (primary) hypertension Gastro-esophageal reflux disease without esophagitis Muscle weakness (generalized) Need for assistance with personal care Other chronic pain Pain in left shoulder Paroxysmal atrial fibrillation (HCC) Peripheral vascular disease, unspecified (HCC) Presence of cardiac pacemaker Repeated falls Sick sinus syndrome (CMS/HCC) (HCC) Unsteadiness on feet Weakness Normal [facility] Progress Note [facility] Geriatric Medicine Inpatient Consult Service Admission Date: 11/13/2024 Assessment Principal Problem: Transient alteration of awareness Plan Debility --contributing factors include COPD, chronic pain, medications --lives at [facility] nursing facility. Propels self in w/c at baseline. --History of falls hitting head last week. CT head on 11/13/24-no acute abnormality. --Continue PT/OT while in patient. Therapy recommending SNF . Patient agreeable. --Recently started on Methocarbamol at her facility for back pain-monitor for cognition closely/side effects. Consider low dose Tizanidine as an alternative. 11/19: decline in mobility. Plan for SNF. Acute Metabolic Encephalopathy --Etiology likely acute illness (sepsis, respiratory failure) --Encourage PO intake, time up in chair, family visits, and sleep hygiene --If agitated, assess for and consider treating for pain --QTc= 473 ms on 11/13/24 --No antipsychotic unless patient is danger to self/others/treatment --Continue PRN melatonin at HS - given 11/17 --Monitor for constipation/urinary retention - last BM 11/10 per patient --Possible medication contributions: none -PRN Robaxin-used last 11/16 --Brother reported no significant baseline memory concerns -- B12 WNL 338 on 11/14/24 and TSH WNL 0.69 on 11/14/2411/19: Resolved. Continue to monitor given risk for delirium. Dysphagia --ST following - recommend easy to chew solids and thin liquids, meds as tolerated --MBSS no laryngeal penetration or airway aspiration 11/19: stable. Continue plan. IBS --takes Dicyclomine 20mg TID at facility --Recommend decreasing/stopping due to risk of anticholinergic side effects. Not currently ordered. 11/19: No abdominal complaints. Chronic constipation --patient reports normal BM pattern every 10 days. --Continue Miralax as needed - refusing --no BM documented since admission, patient reports last BM 11/10 11/19: Educated on use of bowel regimen - she declines due to concern for diarrhea Neuropathy --takes Gabapentin 200mg TID at facility. Restarted here. 11/19: Continue Gabapentin 200mg TID. Tolerating. OAB --takes Oxybutynin at facility. --Recommend alternative with less anticholinergic side effects versus stopping and monitoring symptoms. --currently on Trospium 11/19: stable. OK to discharge to SNF from geriatric perspective once cleared by primary Follow-up: prn, please page with any questions/issues Subjective Chief Complaint: Chief Complaint Patient presents with Altered Mental Status From [facility]. With AMS. Pt c/o of not feeling well. Pt with abd pain. Axo x 3 pt with temp of 100.3 Geriatrics consulted for impaired cognition HPI- The patient is known to me. 74 y.o. year-old female with PMH of COPD, CAD s/p CABG, SSS s/p pacemaker, Dysphagia, HTN, GERD, Chronic pain, atrial fibrillation, repeated falls, PVD, anxiety, depression presented to the hospital from [facility] on 11/13/24 with complaints of mental status change and fever. Admitted with sepsis with acute hypoxic respiratory failure, possible UTI. CT chest showed possible right upper lobe PE. Exam limited by motion artifact. Pulmonology felt likely motion artifact and not PE. Has been on Warfarin. Found to have E.Coli bacteremia and UTI. ID following. Cardiology following- likely type II NSTEMI in setting of sepsis and UTI. Interval History: Remains on general medical/surgical floor . PICC placed today. Patient reports she is feeling better. States she was confused on the day of the week and thought it was Tuesday. She is eating ok, needs gluten free diet. Sleeps ok. Has neuropathy in feet. Nursing reports no concerns. Seen by PT 11/17. Recommending short term SNF for rehab. Review of Systems Constitutional: Negative for fatigue and fever. Respiratory: Negative for shortness of breath. Cardiovascular: Negative for chest pain and leg swelling. Gastrointestinal: Negative for abdominal pain, constipation, diarrhea and nausea. Genitourinary: Negative for difficulty urinating. Musculoskeletal: Negative for arthralgias. Neurological: Positive for weakness and numbness (feet). Psychiatric/Behavioral: Negative for confusion, dysphoric mood and sleep disturbance. The patient is not nervous/anxious. Objective BP (!) 165/74 Pulse 60 Temp 36.5 ?C (97.7 ?F) (Temporal) Resp 17 Ht 5' 3 (1.6 m) Wt 153 lb (69.4 kg) SpO2 99% BMI 27.10 kg/m? Intake/Output Summary (Last 24 hours) at 11/19/2024 0934 Last data filed at 11/19/2024 0605 Gross per 24 hour Intake 50 ml Output -- Net 50 ml Wt Readings from Last 3 Encounters: 11/17/24 153 lb (69.4 kg) Current Medications[1] Physical Exam Vitals reviewed. Constitutional: General: She is not in acute distress. HENT: Head: Normocephalic and atraumatic. Cardiovascular: Rate and Rhythm: Normal rate and regular rhythm. Pulmonary (more content not included)... Normal [facility] BASIC METABOLIC PANELon 11-05 Anion gap [Moles/Vol] 10 mmol/L Normal -13 [facility] Comment on above: Performed By: #### L AB103, LAB15 ####Wood Experimental Mechanic: THERON PERRY ([id number])[facility] ([facility])[address] Calcium [Mass/Vol] 8.3 mg/dL Low 8.8-10.0 [facility] Comment on above: Performed By: #### L [id number], LAB15 ####Wood Experimental Mechanic: THERON PERRY ([id number])[facility] ([facility])[address] Chloride [Moles/Vol] 101 mmol/L Normal 98-107 [facility] Comment on above: Performed By: #### L AB103, LAB15 ####Wood Experimental Mechanic: THERON PERRY ([id number])[facility] ([facility])[address] CO2 [Moles/Vol] 28 mmol/L Normal 23-31 [facility] Comment on above: Performed By: #### L AB103, LAB15 ####Wood Experimental Mechanic: THERON PERRY ([id number])[facility] ([facility])[address] Creatinine [Mass/Vol] 0.72 mg/dL Normal 0.57-1.11 [facility] Comment on above: Performed By: #### L AB103, LAB15 ####Wood Experimental Mechanic: THERON PERRY ([id number])[facility] ([facility])[address] GLOMERULAR FILTRATION RATE ML/MIN/1.73 SQ M.PREDICTED 87.9 mL/min/1.73m*2 Normal >60.0 [facility] Comment on above: Result Comment: Calc ulation based on the Chronic Kidney Disease Epidemiology Collaboration (CKD-EPI) equation refit without adjustment for race Performed By: #### L AB103, LAB15 ####Wood Experimental Mechanic: THERON PERRY ([id number])[facility] (SBHLAB)[address] Glucose [Mass/Vol] 122 mg/dL High 82-115 [facility] Comment on above: Performed By: #### L AB103, LAB15 ####Wood Experimental Mechanic: THERON PERRY ([id number])[facility] ([facility]AB)[address] Potassium [Moles/Vol] 3.3 mmol/L Low 3.5-5.1 [facility] Comment on above: Result Comment: [facility] potassium values may be up to 0.5 mmol/L lower than serum values. Performed By: #### L AB103, LAB15 ####Wood Experimental Mechanic: THERON PERRY ([id number])[facility] (SBHLAB)[address] Sodium [Moles/Vol] 139 mmol/L Normal 136-145 [facility] Comment on above: Performed By: #### L AB103, LAB15 ####Wood Experimental Mechanic: THERON PERRY ([id number])[facility] ([facility])[address] Urea nitrogen [Mass/Vol] 24 mg/dL High 9-23 [facility] Comment on above: Performed By: #### L AB103, LAB15 ####Wood Experimental Mechanic: THERON PERRY ([id number])[facility] (SB[facility]AB)[address] Basic metabolic 1998 panelon 11-18-2024 Anion gap [Moles/Vol] 10 mmol/L 3 - 13 mmol/L [facility] Calcium [Mass/Vol] 8.3 mg/dL Low 8.8 - 10. 0 mg/dL [facility] Chloride [Moles/Vol] 101 mmol/L 98 - 10 7 mmol/L [facility] CO2 [Moles/Vol] 28 mmol/L 23 - 31 mmol/L [facility] Creatinine [Mass/Vol] 0.72 mg/dL 0.57 - 1.11 mg/dL [facility] GFR/1.73 sq M.predicted (S/P/Bld) [Vol rate/Area] 87.9 mL/min - PINF [facility] Glucose [Mass/Vol] 122 mg/dL High 82 - 115 mg/dL [facility] Interpretation and review of laboratory results Abnormal [facility] Potassium [Moles/Vol] 3.3 mmol/L Low 3.5 - 5.1 mmol/L [facility] Sodium [Moles/Vol] 139 mmol/L 136 - 145 mmol/L [facility] Urea nitrogen [Mass/Vol] 24 mg/dL High 9 - 23 mg/dL [facility] CBC W Auto Differential pane l (Bld)Ordered By: Adeline Cohen on 11-18-2024 Basophils (Bld) [#/Vol] 0 10*3/uL 0.0 - 0.2 10*3/uL [facility] Basophils/100 WBC (Bld) 0.1 % 0.0 - 2.0 % [facility] Eosinophils (Bld) [#/Vol] 0.2 10*3/uL 0.0 - 0.5 10*3/uL [facility] Eosinophils/100 WBC (Bld) 1.9 % 0.0 - 6.0 % [facility] Erythrocyte distribution width (RBC) [Ratio] 19.4 % High 11.5 - 15.0 % [facility] Hematocrit (Bld) [Volume fraction] 34.5 % Low 35.0 - 47.0 % [facility] Hemoglobin (Bld) [Mass/Vol] 10.3 g/dL Low 11.7 - 16.0 g/dL [facility] Immature granulocytes (Bld) [#/Vol] 0.1 10*3/uL High NINF - 0.1 10*3/uL [facility] Immature granulocytes/100 WBC (Bld) 0.5 % 0.0 - 2.0 % [facility] Interpretation and review of laboratory results Abnormal [facility] Lymphocytes (Bld) [#/Vol] 1.7 10*3/uL 1.0 - 4.3 10*3/uL [facility] Lymphocytes/100 WBC (Bld) 16.7 % 15.0 - 45.0 % [facility] MCH (RBC) [Entitic mass] 24.4 pg Low 26.0 - 34.0 pg [facility] MCHC (RBC) [Mass/Vol] 29.9 % Low 30.5 - 36.0 % [facility] MCV (RBC) [Entitic vol] 81.8 fL 77.0 - 99.0 fL [facility] Monocytes (Bld) [#/Vol] 1 10*3/uL High 0.0 - 0.9 10*3/uL [facility] Monocytes/100 WBC (Bld) 9.9 % 5.0 - 13.0 % [facility] Neutrophils (Bld) [#/Vol] 7.3 10*3/uL 1.8 - 7.5 10*3/uL [facility] Neutrophils/100 WBC (Bld) 70.9 % 38.0 - 82.0 % [facility] Nucleated RBC/100 WBC (Bld) [Ratio] 0 % [facility] Platelet mean volume (Bld) [Entitic vol] 12.4 fL 9.0 - 12.7 fL [facility] Platelets (Bld) [#/Vol] 213 10*3/uL 140 - 440 10*3/uL [facility] RBC (Bld) [#/Vol] 4.22 10*6/uL 3.80 - 5.2 0 10*6/uL [facility] WBC (Bld) [#/Vol] 10.3 10*3/uL 3.6 - 10.7 10*3/uL [facility] CBC WITH AUTO DIFFERENTIALon 11-18-2024 Basophils (Bld) [#/Vol] 0.0 10*3/uL Normal 0.0-0.2 [facility] Comment on above: Performed By: #### L [id number] ####Wood Experimental Mechanic: THERON PERRY ([id number])[facility] ([facility])[address] [place] [address] Basophils/100 WBC (Bld) 0.1 % Normal 0.0-2.0 [facility] Comment on above: Performed By: #### L [id number] ####Wood Experimental Mechanic: THERON PERRY ([id number])[facility] ([facility])[address] Eosinophils (Bld) [#/Vol] 0.2 10*3/uL Normal 0.0-0.5 [facility] Comment on above: Performed By: #### L [id number] ####[employer] Experimental Mechanic: THERON PERRY ([id number])[facility] ([facility])[address] Eosinophils/100 WBC (Bld) 1.9 % Normal 0.0-6.0 [facility] Comment on above: Performed By: #### L [id number] ####[employer] Experimental Mechanic: THERON PERRY ([id number])[facility] [facility] Erythrocyte distribution width (RBC) [Ratio] 19.4 % High 11.5-15.0 [facility] Comment on above: Performed By: #### L [id number] ####Wood Experimental Mechanic: THERON PERRY ([id number])[facility] [place] [address] Hematocrit (Bld) [Volume fraction] 34.5 % Low 35.0-47.0 [facility] Comment on above: Performed By: #### L [id number] ####Wood Experimental Mechanic: THERON PERRY ([id number])[facility] [place] [address] Hemoglobin (Bld) [Mass/Vol] 10.3 g/dL Low 11.7-16.0 [facility] Comment on above: Performed By: #### L [id number] ####Wood Experimental Mechanic: THERON PERRY ([id number])[facility] ([facility])[address] IMMATURE GRANS % 0.5 % Normal 0.0-2.0 [facility] Comment on above: Performed By: #### L [id number] ####Wood Experimental Mechanic: THERON MONREALLUCRECIA ([id number])[facility] ([facility])[address] IMMATURE GRANS ABSOLUTE 0.1 10*3/uL High <0.1 [facility] Comment on above: Performed By: #### L [id number] ####Wood Experimental Mechanic: THERON MONREALLUCRECIA ([id number])[facility] [place] ([facility])[address] Lymphocytes (Bld) [#/Vol] 1.7 10*3/uL Normal 1.0-4.3 [facility] Comment on above: Performed By: #### L [id number] ####Wood Experimental Mechanic: THERON ANTONIOJT ([id number])[facility] ([facility])[address] [place] [address] Lymphocytes/100 WBC (Bld) 16.7 % Normal 15.0-45.0 [facility] Comment on above: Performed By: #### L [id number] ####Wood Experimental Mechanic: THERON PERRY ([id number])[facility] ([facility])[address] [place] [address] MCH (RBC) [Entitic mass] 24.4 pg Low 26.0-34.0 [facility] Comment on above: Performed By: #### L [id number] ####Wood Experimental Mechanic: THERON PERRY ([id number])[facility] [place] [address] MCHC 29.9 % Low 30.5-36.0 [facility] Comment on above: Performed By: #### L [id number] ####Wood Experimental Mechanic: THERON PERRY ([id number])[facility] [place] [address] MCV (RBC) [Entitic vol] 81.8 fL Normal 77.0-99.0 [facility] Comment on above: Performed By: #### L [id number] ####Wood Experimental Mechanic: THERON ORLANDO ([id number])[facility] [place] ([facility])[address] Monocytes (Bld) [#/Vol] 1.0 10*3/uL High 0.0-0.9 [facility] Comment on above: Performed By: #### L [id number] ####Wood Experimental Mechanic: THERON ORLANDO ([id number])[facility] [place] ([facility])[address] Monocytes/100 WBC (Bld) 9.9 % Normal 5.0-13.0 [facility] Comment on above: Performed By: #### L [id number] ####Wood Experimental Mechanic: THERON PERRY ([id number])[facility] ([facility])[address] NEUTROPHILS ABSOLUTE 7.3 10*3/uL Normal 1.8-7.5 [facility] Comment on above: Performed By: #### L [id number] ####Wood Experimental Mechanic: THERON ORLANDO ([id number])[facility] [place] ([facility])[address] Neutrophils/100 WBC (Bld) 70.9 % Normal 38.0-82.0 [facility] Comment on above: Performed By: #### L [id number] ####Wood Experimental Mechanic: THERON MONREALLUCRECIA ([id number])[facility] [place] ([facility])[address] NRBC 0.0 /100 WBCs Normal 0.0-2.0 [facility] Comment on above: Performed By: #### L [id number] ####Wood Experimental Mechanic: THERON MONREALLUCRECIA ([id number])[facility] [place] ([facility])[address] Platelet mean volume (Bld) [Entitic vol] 12.4 fL Normal 9.0-12.7 [facility] Comment on above: Performed By: #### L [id number] ####Wood Experimental Mechanic: THERON PERRY ([id number])[facility] [place] (SB[facility])[address] Platelets (Bld) [#/Vol] 213 10*3/uL Normal 140-440 [facility] Comment on above: Performed By: #### L [id number] ####Wood Experimental Mechanic: THERON PERRY ([id number])[facility] [place] ([facility])[address] RBC (Bld) [#/Vol] 4.22 10*6/uL Normal 3.80-5.20 [facility] Comment on above: Performed By: #### L [id number] ####Wood Experimental Mechanic: THERON PERRY ([id number])[facility] [place] ([facility])[address] WBC (Bld) [#/Vol] 10.3 10*3/uL Normal 3.6-10.7 [facility] Comment on above: Performed By: #### L [id number] ####Wood Experimental Mechanic: THERON PERRY ([id number])[facility] [place] ([facility])[address] Laboratory - Chemistry and C hemistry - challengeon 11-18-2024 Magnesium [Mass/Vol] 2.1 mg/dL 1.6 - 2 .6 mg/dL [facility] Laboratory - Coagulationon 0 11-18-2024 PT Coag (Bld) [Time] 31.3 s High 9.0 - 12.0 s [facility] MAGNESIUMon 11-18-2024 Magnesium [Mass/Vol] 2.1 mg/dL Normal 1.6-2.6 [facility] Comment on above: Result Comment: MEERA Lewis COMMENTS: Higher values can be expected in females during menses. Performed By: #### L AB103, LAB15 ####Wood Experimental Mechanic: THERON PERRY ([id number])[facility] [place] ([facility])[address] Magnesium [Mass/Vol]on 11-18 Interpretation and review of laboratory results Normal [facility] No Panel Informationon 11-18 [facility] PROTHROMBIN TIMEon INR Coag (PPP) [Relative time] 3.1 {INR} High 0.9-1.1 [facility] Comment on above: Result Comment: Alex mmended Anticoagulant Therapy: SEE BELOW ----- INR of 2.0 - 3.0 : - Prophylaxis of Venous Thrombosis (high-risk surgery) - Treatment of Venous Thrombosis - Treatment of Pulmonary Embolism (Includes tissue heart valves, Acute Myocardial Infarction to prevent systemic embolism, Valvular Heart Disease, and Atrial Fibrillation) ----- INR of 2.5 - 3.5 : - Mechanical Prosthetic Valves (high risk) - If oral anticoagulant therapy is used to prevent Myocardial Infarction Performed By: #### L [id number] ####Wood Experimental Mechanic: THERON PERRY ([id number])[facility] ([facility])[address] [place] [address] PT Coag (PPP) [Time] 31.3 s High 9.0-12.0 [facility] Comment on above: Performed By: #### L [id number] ####Wood Experimental Mechanic: THERON PERRY ([id number])[facility] [place] [address] PT Coag (Bld) [Time]on 11-18 INR Coag (PPP) [Relative time] 3.1 {INR} High 0.9 - 1.1 [facility] Interpretation and review of laboratory results Abnormal [facility] Progress Noteon 11-18-2024 Progress Note [facility] Anticoagulatio n Management Service (VAN) Inpatient Warfarin Consult HPI: Dviya Joseph is a 74 y.o. 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 Medical History[1] Patient is on warfarin for Afib and has a goal INR 2.0 - 3.0. Warfarin is currently managed by [facility]. Pt's home dose of warfarin is 2.5mg daily per [place] at the facility. Pt's last INR in the clinic was 2.6 on 10/29. S/sx of bleeding= hgb 10.3. Noted bruises/bleeds easily on physical inspection with small amount of epistaxis 11/14. Interacting medications= ASA 81 mg , pravastatin 80 mg (home med). Labs: Recent Labs 11/16/24 0515 11/17/24 0453 11/18/24 0100 HGB 9.6* 8.9* 10.3* HCT 32.1* 30.4* 34.5* PLT 208 191 213 Recent Labs 11/18/24 0100 INR 3.1* Date INR Dose 11/18 3.1 0.5 mg 11/17 3.4 0.5 mg 11/16 3.4 0.5mg 11/15 3.3 1 mg 11/14 2.3 2.5mg 11/13 2.3 4mg Assessment/Plan: 1. INR is slightly supratherapeutic today. Trending down, Will give another low-dose of 0.5 mg today . 2. Monitor for s/s of bleeding and drug interactions. Will adjust dose accordingly. 3. Warfarin is managed by [facility] outpatient. VAN will manage inpatient and sign off at discharge. John Bailey PharmD [facility]AN Consult Service is available daily [phone] via [employer] Secure Chat. [1] Past Medical History: Diagnosis Date Altered mental status, unspecified Ataxia Atherosclerotic heart disease Bradycardia, unspecified Cognitive communication deficit COPD (chronic obstructive pulmonary disease) (HCC) i was told i had COPD, then I was told i wasn't, i don't know for sure Difficulty walking Dysphagia, oropharyngeal phase Dyspnea Essential (primary) hypertension Gastro-esophageal reflux disease without esophagitis Muscle weakness (generalized) Need for assistance with personal care Other chronic pain Pain in left shoulder Paroxysmal atrial fibrillation (HCC) Peripheral vascular disease, unspecified (HCC) Presence of cardiac pacemaker Repeated falls Sick sinus syndrome (CMS/HCC) (HCC) Unsteadiness on feet Weakness Normal [facility] BASIC METABOLIC PANELon 11-05 Anion gap [Moles/Vol] 9 mmol/L Normal 3-13 [facility] Comment on above: Performed By: #### L AB103, LAB15 ####Wood Experimental Mechanic: THERON PERRY ([id number])[place] ([facility])[address] Calcium [Mass/Vol] 8.3 mg/dL Low 8.8-10.0 [facility] Comment on above: Performed By: #### L AB103, LAB15 ####Wood Experimental Mechanic: THERON PERRY ([id number])[facility] [place] ([facility])[address] Chloride [Moles/Vol] 103 mmol/L Normal 98-107 [facility] Comment on above: Performed By: #### L AB103, LAB15 ####Wood Experimental Mechanic: THERON PERRY ([id number])[facility] [place] ([facility])[address] CO2 [Moles/Vol] 29 mmol/L Normal 23-31 [facility] Comment on above: Performed By: #### L AB103, LAB15 ####Wood Experimental Mechanic: THERON PERRY ([id number])[facility] [place] ([facility])[address] Creatinine [Mass/Vol] 0.72 mg/dL Normal 0.57-1.11 [facility] Comment on above: Performed By: #### L AB103, LAB15 ####Wood Experimental Mechanic: THERON PERRY ([id number])[facility] [place] ([facility])[address] [place] [address] [place] GLOMERULAR FILTRATION RATE ML/MIN/1.73 SQ M.PREDICTED 87.9 mL/min/1.73m*2 Normal >60.0 [facility] Comment on above: Result Comment: Calc ulation based on the Chronic Kidney Disease Epidemiology Collaboration (CKD-EPI) equation refit without adjustment for race Performed By: #### L AB103, LAB15 ####Wood Experimental Mechanic: THERON PERRY ([id number])[facility] ([facility])[address] Glucose [Mass/Vol] 137 mg/dL High 82-115 [facility] Comment on above: Performed By: #### L AB103, LAB15 ####Wood Experimental Mechanic: THERON LEWISCER ([id number])[facility] ([facility])[address] Potassium [Moles/Vol] 3.6 mmol/L Normal 3.5-5.1 [facility] Comment on above: Result Comment: [facility] potassium values may be up to 0.5 mmol/L lower than serum values. Performed By: #### L AB103, LAB15 ####Wood Experimental Mechanic: THERON PERRY ([id number])[facility] ([facility])[address] Sodium [Moles/Vol] 141 mmol/L Normal 136-145 [facility] Comment on above: Performed By: #### L AB103, LAB15 ####Wood Experimental Mechanic: THERON PERRY ([id number])[facility] [place] ([facility])[address] Urea nitrogen [Mass/Vol] 30 mg/dL High 9-23 [facility] Comment on above: Performed By: #### L AB103, LAB15 ####Wood Experimental Mechanic: THERON PERRY ([id number])[facility] ([facility])[address] Basic metabolic 1998 panelon 11-17-2024 Anion gap [Moles/Vol] 9 mmol/L 3 - 13 mmol/L [facility] Calcium [Mass/Vol] 8.3 mg/dL Low 8.8 - 10. 0 mg/dL [facility] Chloride [Moles/Vol] 103 mmol/L 98 - 10 7 mmol/L [facility] CO2 [Moles/Vol] 29 mmol/L 23 - 31 mmol/L [facility] Creatinine [Mass/Vol] 0.72 mg/dL 0.57 - 1.11 mg/dL [facility] GFR/1.73 sq M.predicted (S/P/Bld) [Vol rate/Area] 87.9 mL/min - PINF [facility] Glucose [Mass/Vol] 137 mg/dL High 82 - 115 mg/dL [facility] Interpretation and review of laboratory results Abnormal [facility] Potassium [Moles/Vol] 3.6 mmol/L 3.5 - 5.1 mmol/L [facility] Sodium [Moles/Vol] 141 mmol/L 136 - 145 mmol/L [facility] Urea nitrogen [Mass/Vol] 30 mg/dL High 9 - 23 mg/dL [facility] CBC W Auto Differential pane l (Bld)Ordered By: Vonda Ivan on 11-17-2024 Basophils (Bld) [#/Vol] 0 10*3/uL 0.0 - 0.2 10*3/uL [facility] Basophils/100 WBC (Bld) 0.1 % 0.0 - 2.0 % [facility] Eosinophils (Bld) [#/Vol] 0 10*3/uL 0.0 - 0.5 10*3/uL [facility] Eosinophils/100 WBC (Bld) 0 % 0.0 - 6.0 % [facility] Erythrocyte distribution width (RBC) [Ratio] 19 % High 11.5 - 15.0 % [facility] Hematocrit (Bld) [Volume fraction] 30.4 % Low 35.0 - 47.0 % [facility] Hemoglobin (Bld) [Mass/Vol] 8.9 g/dL Low 11.7 - 16.0 g/dL [facility] [employer] Immature granulocytes (Bld) [#/Vol] 0.1 10*3/uL High NINF - 0.1 10*3/uL [facility] [employer] Immature granulocytes/100 WBC (Bld) 0.8 % 0.0 - 2.0 % [facility] Interpretation and review of laboratory results Abnormal [facility] Lymphocytes (Bld) [#/Vol] 1.2 10*3/uL 1.0 - 4.3 10*3/uL [facility] Lymphocytes/100 WBC (Bld) 11.8 % Low 15.0 - 45.0 % [facility] MCH (RBC) [Entitic mass] 23.9 pg Low 26.0 - 34.0 pg [facility] MCHC (RBC) [Mass/Vol] 29.3 % Low 30.5 - 36.0 % [facility] MCV (RBC) [Entitic vol] 81.7 fL 77.0 - 99.0 fL [facility] Monocytes (Bld) [#/Vol] 0.7 10*3/uL 0.0 - 0.9 10*3/uL [facility] Monocytes/100 WBC (Bld) 7.2 % 5.0 - 13.0 % [facility] Neutrophils (Bld) [#/Vol] 8.1 10*3/uL High 1.8 - 7.5 10*3/uL [facility] Neutrophils/100 WBC (Bld) 80.1 % 38.0 - 82.0 % [facility] Nucleated RBC/100 WBC (Bld) [Ratio] 0 % [facility] [employer] Platelet mean volume (Bld) [Entitic vol] 12.7 fL 9.0 - 12.7 fL [facility] Platelets (Bld) [#/Vol] 191 10*3/uL 140 - 440 10*3/uL [facility] RBC (Bld) [#/Vol] 3.72 10*6/uL Low 3.80 - 5.2 0 10*6/uL [facility] WBC (Bld) [#/Vol] 10.1 10*3/uL 3.6 - 10.7 10*3/uL [facility] CBC WITH AUTO DIFFERENTIALon 11-17-2024 Basophils (Bld) [#/Vol] 0.0 10*3/uL Normal 0.0-0.2 [facility] Comment on above: Performed By: #### L [id number] ####Wood Experimental Mechanic: THERON PERRY ([id number])[facility] [place] [address] Basophils/100 WBC (Bld) 0.1 % Normal 0.0-2.0 [facility] Comment on above: Performed By: #### L [id number] ####Wood Experimental Mechanic: THERON PERRY ([id number])[facility] ([facility])[address] Eosinophils (Bld) [#/Vol] 0.0 10*3/uL Normal 0.0-0.5 [facility] Comment on above: Performed By: #### L [id number] ####Wood Experimental Mechanic: THERON PERRY ([id number])[facility] ([facility])[address] [place] [address] Eosinophils/100 WBC (Bld) 0.0 % Normal 0.0-6.0 [facility] Comment on above: Performed By: #### L [id number] ####Wood Experimental Mechanic: THERON PERRY ([id number])[facility] ([facility])[address] [place] [address] Erythrocyte distribution width (RBC) [Ratio] 19.0 % High 11.5-15.0 [facility] Comment on above: Performed By: #### L [id number] ####Wood Experimental Mechanic: THERON PERRY ([id number])[facility] ([facility])[address] [place] [address] Hematocrit (Bld) [Volume fraction] 30.4 % Low 35.0-47.0 [facility] Comment on above: Performed By: #### L [id number] ####Wood Experimental Mechanic: THERON PERRY ([id number])[facility] ([facility])[address] [place] [address] Hemoglobin (Bld) [Mass/Vol] 8.9 g/dL Low 11.7-16.0 [facility] Comment on above: Performed By: #### L [id number] ####Wood Experimental Mechanic: THERON PERRY ([id number])[facility] ([facility])[address] [place] [address] IMMATURE GRANS % 0.8 % Normal 0.0-2.0 [facility] Comment on above: Performed By: #### L [id number] ####Wood Experimental Mechanic: THERON PERRY ([id number])[facility] ([facility])[address] [place] [address] IMMATURE GRANS ABSOLUTE 0.1 10*3/uL High <0.1 [facility] Comment on above: Performed By: #### L [id number] ####Wood Experimental Mechanic: THERON ANTONIOAlvaroLUCRECIA ([id number])[facility] (SBHLAB)[address] Lymphocytes (Bld) [#/Vol] 1.2 10*3/uL Normal 1.0-4.3 [facility] Comment on above: Performed By: #### L [id number] ####Wood Experimental Mechanic: THERON ORLANDO ([id number])[facility] [place] ([facility])[address] Lymphocytes/100 WBC (Bld) 11.8 % Low 15.0-45.0 [facility] Comment on above: Performed By: #### L [id number] ####Wood Experimental Mechanic: THERON ORLANDO ([id number])[facility] (SBHLAB)[address] [place] [address] MCH (RBC) [Entitic mass] 23.9 pg Low 26.0-34.0 [facility] Comment on above: Performed By: #### L [id number] ####Wood Experimental Mechanic: THERON MONREALLUCRECIA ([id number])[facility] [place] (SBHLAB)[address] [place] [address] MCHC 29.3 % Low 30.5-36.0 [facility] Comment on above: Performed By: #### L [id number] ####Wood Experimental Mechanic: THERON MONREALLUCRECIA ([id number])[facility] [place] ([facility])[address] MCV (RBC) [Entitic vol] 81.7 fL Normal 77.0-99.0 [facility] Comment on above: Performed By: #### L [id number] ####Wood Experimental Mechanic: THERON MONREALLUCRECIA ([id number])[facility] [place] ([facility])[address] [place] [address] Monocytes (Bld) [#/Vol] 0.7 10*3/uL Normal 0.0-0.9 [facility] Comment on above: Performed By: #### L [id number] ####Wood Experimental Mechanic: THERON PERRY ([id number])[facility] [place] ([facility])[address] Monocytes/100 WBC (Bld) 7.2 % Normal 5.0-13.0 [facility] Comment on above: Performed By: #### L [id number] ####Wood Experimental Mechanic: THERON PERRY ([id number])[facility] (SB[facility]AB)[address] NEUTROPHILS ABSOLUTE 8.1 10*3/uL High 1.8-7.5 [facility] Comment on above: Performed By: #### L [id number] ####Wood Experimental Mechanic: THERON MONREALLUCRECIA ([id number])[facility] [place] ([facility])[address] Neutrophils/100 WBC (Bld) 80.1 % Normal 38.0-82.0 [facility] Comment on above: Performed By: #### L [id number] ####Wood Experimental Mechanic: THERON PERRY ([id number])[facility] [place] ([facility])[address] NRBC 0.0 /100 WBCs Normal 0.0-2.0 [facility] Comment on above: Performed By: #### L [id number] ####Wood Experimental Mechanic: THERON PERRY ([id number])[facility] [place] ([facility])[address] Platelet mean volume (Bld) [Entitic vol] 12.7 fL Normal 9.0-12.7 [facility] Comment on above: Performed By: #### L [id number] ####Wood Experimental Mechanic: THERON PERRY ([id number])[facility] [place] ([facility])[address] Platelets (Bld) [#/Vol] 191 10*3/uL Normal 140-440 [facility] Comment on above: Performed By: #### L [id number] ####[employer]ic: THERON ANTONIOAlvaroLUCRECIA ([id number])[facility] [place] (SB[facility]AB)[address] RBC (Bld) [#/Vol] 3.72 10*6/uL Low 3.80-5.20 [facility] Comment on above: Performed By: #### L [id number] ####[employer]ic: THERON ANTONIOAlvaroLUCRECIA ([id number])[facility] [place] (SB[facility])[address] WBC (Bld) [#/Vol] 10.1 10*3/uL Normal 3.6-10.7 [facility] Comment on above: Performed By: #### L [id number] ####[employer]ic: THERON ANTONIOJT ([id number])[facility] ([facility])[address] [place] [address] Laboratory - Chemistry and C hemistry - challengeon 11-17-2024 Magnesium [Mass/Vol] 2.2 mg/dL 1.6 - 2 .6 mg/dL [facility] Laboratory - Coagulationon 0 11-17-2024 PT Coag (Bld) [Time] 33.1 s High 9.0 - 12.0 s [facility] MAGNESIUMon 11-17-2024 Magnesium [Mass/Vol] 2.2 mg/dL Normal 1.6-2.6 [facility] Comment on above: Result Comment: MEERA Lewis COMMENTS: Higher values can be expected in females during menses. Performed By: #### L AB103, LAB15 ####[employer]ic: THERON PERRY ([id number])[facility] ([facility] [place] [address] Magnesium [Mass/Vol]on 11-17 Interpretation and review of laboratory results Normal [facility] No Panel Informationon 11-17 [facility] PROTHROMBIN TIMEon INR Coag (PPP) [Relative time] 3.4 {INR} High 0.9-1.1 [facility] Comment on above: Result Comment: Alex mmended Anticoagulant Therapy: SEE BELOW ----- INR of 2.0 - 3.0 : - Prophylaxis of Venous Thrombosis (high-risk surgery) - Treatment of Venous Thrombosis - Treatment of Pulmonary Embolism (Includes tissue heart valves, Acute Myocardial Infarction to prevent systemic embolism, Valvular Heart Disease, and Atrial Fibrillation) ----- INR of 2.5 - 3.5 : - Mechanical Prosthetic Valves (high risk) - If oral anticoagulant therapy is used to prevent Myocardial Infarction Performed By: #### L [id number] ####[employer]: THERON PERRY ([id number])[facility] (SBHLAB)[address] PT Coag (PPP) [Time] 33.1 s High 9.0-12.0 [facility] Comment on above: Performed By: #### L [id number] ####[employer] Experimental [employer]ic: THERON PERRY ([id number])[facility] PT Coag (Bld) [Time]on 11-17 INR Coag (PPP) [Relative time] 3.4 {INR} High 0.9 - 1.1 [facility] Interpretation and review of laboratory results Abnormal [facility] Progress Noteon 11-17-2024 [address]ERAPY [facility] Treatment Note Name/MRN: Divya Joseph ([id number]) Date of : 1950 Age: 74 y.o. Room[facility]Bed: [facility] A Visit #: 2 out of 5 Discharge Recommendation: Long Term Facility Equipment Needed: No Prior Level of Function Prior Level of ADL Function: Required Assist Prior Level of Mobility: Required Assist; Device: Wheelchair - manual Prior Level of Transfers: Required Assist Assessment Pt demos improvement in functional mobility and progress toward therapy goals. Pt requires SBA for bed mobility, min A for functional transfers, min A for short distance ambulation with FWW. Pt is currently limited by endurance, fatigue and will continue to benefit from acute skilled PT to address current deficits. Recommend SNF. Subjective Pt very pleasant and agreeable to therapy session Pain: Pt denies any current pain. Medical Precautions: No active isolations Proper PPE donned/doffed in accordance with facility standards. Fall Risk: [place] Fall Risk Score: 100 (High Risk) Precautions/Restrictions: N/A Overall Cognitive Status: WFL Overall Orientation Status: Oriented x4 Family/Caregiver Present: none Objective Bed Mobility Supine to sit: SBA Sit to supine: SBA Pt completes bed mobility at SBA with HOB elevated. Slightly increased time and effort required to complete. Transfers/Mobility Sit to stand: Min Assist Stand to sit: Min Assist X2 from EOB to FWW. Pt requires min A x1 to elevate and assist in controlled descent with cues provided for hand placement with fair carryover. Device(s) used: Front wheeled walker Ambulation Ambulation 1 Assistive device(s) used: Front wheeled walker Assist level: Min Assist Distance (ft): ~9 feet forward/retro, ~4 lateral steps Quality of gait: reciprocal stepping, shuffling, slow rashard Pt demos short, shuffling gait, decreased gait speed. Pt requires cues for upright posture, increased B foot clearance with fair carryover noted. Increased time to complete short distance ambulation. Balance During Session: Posture: fair Standing - Static: Contact Guard Standing - Dynamic: Contact Guard Plan Continue acute PT per plan of care. Safety/Education Safety Safety Devices in place: All fall risk precautions in place, call light within reach, left in bed, gait belt, patient at risk for falls, and no alarms engaged upon entry Restraints: N/A Education Education Given To: patient Education Provided: PT Role, PT Goals, Gait Training, Plan of Care, Transfer Training, Energy Conservation, Equipment, Discharge Recommendations, and Benefits of Increasing Activity Education Method: Verbal and Demonstration Barriers to Learning: None Education Outcome: Verbalized Understanding, Demonstrated Understanding, and Continued Education Needed Outcome Measures AM-PAC AM-PAC Inpatient Mobility Raw Score (No Stairs) : 15 JH-HLM JH-HLM Scale: Walked 10 steps or more (i.e. walked to restroom) Goals Patient Stated Goal: to walk Encounter Problems Encounter Problems (Active) Balance Patient will maintain dynamic standing balance for 2 minutes with SBA in order to demonstrate decreased risk of falling. (Progressing) Start: 11/15/24 Expected End: 11/22/24 Exercise Patient will complete lower extremity exercises for 1-2 sets / 5-10 reps in order to improve strength and activity tolerance for mobility. (Not Addressed) Start: 11/15/24 Expected End: 11/22/24 Mobility Patient will ambulate 20 feet with CGA and rolling walker in order to improve safety and independence with mobility. (Progressing) Start: 11/15/24 Expected End: 11/22/24 Transfers Patient will perform bed mobility with modified independence in order to improve independence and prepare for out of bed mobility. (Progressing) Start: 11/15/24 Expected End: 11/22/24 Patient will complete sit to stand transfer with SBA to rolling walker in order to improve safety and prepare for out of bed mobility. (Progressing) Start: 11/15/24 Expected End: 11/22/24 Therapy Time Individual Co-treatment Time In 1016 Time Out 1027 Minutes 11 Timed Code Treatment Minutes: 10 Minutes (gait x1) Gabriella Bagley, PT Normal [facility] Progress Note OCCUPATIONAL THERAPY [facility] Treatment Note Name/MRN: Divya Joseph ([id number]) Date of : 1950 Age: 74 y.o. Room[facility]: [facility] A Visit #: 2 out of 7 visits Discharge Recommendation: Long Term Facility Prior Level of Function Prior Level of ADL Function: Required Assist Prior Level of Mobility: Required Assist; Device: Wheelchair - manual Prior Level of Transfers: Required Assist Assessment Pt in the bed and is agreeable to OT. Pt is min assist for supine > sit, CGA for sit > stand, CGA for static stand at the FWW and is CGA for functional mobility in the room and in the cobos. Pt walks slowly but had no true LOB. Pt taking several standing rest breaks and is unsteady. Pt is limited by pain (left wrist when pushing on the FWW), weakness and fatigue. OT recs SNF at discharge. Subjective I'm still pretty weak Pain: RN managing pain. Pt reports left wrist pain from pushing down on the FWW when walking. Did not rate pain. Medical Precautions: No active isolations Proper PPE donned/doffed in accordance with facility standards. Fall Risk: [place] Fall Risk Score: 100 (High Risk) Precautions/Restrictions: N/A Family/Caregiver Present: none Objective ADLs Not assessed this session ADL's offered and pt declines. Bed Mobility Supine to sit: Min Assist Sit to supine: Contact Guard Transfers/Mobility Sit to stand: Contact Guard Stand to sit: Contact Guard Sitting balance: Supervision Standing balance: Contact Guard Functional mobility: Contact Guard CGA for sit > stand, CGA for static stand at the FWW and is CGA for functional mobility in the room and in the cobos. Pt walks slowly but had no true LOB. Pt taking several standing rest breaks and is unsteady. Pt is limited by pain (left wrist when pushing on the FWW), Pt had removed her O2 for walking and had no SOB. Is on 1 liter O2 and replaced when returned to bed. Device(s) used: Front wheeled walker Cognition - Safety judgement: decreased awareness of need for safety - Initiation: requires cues for some A&O x 4 Plan Continue acute OT per plan of care. Safety/Education Safety Safety Devices in place: All fall risk precautions in place, call light within reach, left in bed, gait belt, patient at risk for falls, and nurse notified Restraints: N/A Education Education Given To: patient Education Provided: OT Role, Plan of Care, Transfer Training, Fall Prevention Education, and Benefits of Increasing Activity Education Method: Verbal, Demonstration, and Teach Back Barriers to Learning: None Education Outcome: Verbalized Understanding, Demonstrated Understanding, and Continued Education Needed AM-PAC AM-PAC Inpatient Daily Activity Raw Score: 19 ADL Inpatient CMS G-Code Modifier: CK Goals Patient Stated Goal: get better Encounter Problems Encounter Problems (Active) Balance Patient will maintain dynamic standing balance for 5 minutes with CGA in order to demonstrate decreased risk of falling. (Progressing) Start: 11/15/24 Expected End: 11/22/24 Dressing Upper Extremities Patient will complete upper body dressing MOD I (Not Addressed) Start: 11/15/24 Expected End: 11/22/24 Dressings Lower Extremities Patient will dress lower body MOD I (Not Addressed) Start: 11/15/24 Expected End: 11/22/24 Toileting Patient will complete toileting tasks at standard toilet with CGA. (Not Addressed) Start: 11/15/24 Expected End: 11/22/24 Transfers Patient will complete functional transfer with rolling walker with CGA in order to prepare for ambulation. (Progressing) Start: 11/15/24 Expected End: 11/22/24 Therapy Time Individual Co-treatment Time In 1053 Time Out 1121 Minutes 28 Timed Code Treatment Minutes: 25 Minutes (ther act,2) DONOVAN [facility] Progress Note [facility] Anticoagulatio n Management Service (VAN) Inpatient Warfarin Consult HPI: Divya Joseph is a 74 y.o. 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 Medical History[1] Patient is on warfarin for Afib and has a goal INR 2.0 - 3.0. Warfarin is currently managed by [facility]. Pt's home dose of warfarin is 2.5mg daily per [place] at the facility. Pt's last INR in the clinic was 2.6 on 10/29. S/sx of bleeding= hgb 8.9 . Noted bruises/bleeds easily on physical inspection with small amount of epistaxis 11/14. Interacting medications= ASA 81 mg , pravastatin 80 mg (home med)., dexamethasone 6 mg injection every 6 hours (last dose to end 11/15/24 at 1330). Labs: Recent Labs 11/15/24 0419 11/16/24 0515 11/17/24 0453 HGB 8.5* 9.6* 8.9* HCT 28.7* 32.1* 30.4* PLT 133* 208 191 Recent Labs 11/17/24 0453 INR 3.4* Date INR Dose 11/17 3.4 0.5 mg 11/16 3.4 0.5mg 11/15 3.3 1 mg 11/14 2.3 2.5mg 11/13 2.3 4mg Assessment/Plan: 1. INR is slightly supratherapeutic today. Will give another low-dose of 0.5 mg today . 2. Monitor for s/s of bleeding and drug interactions. Will adjust dose accordingly. 3. Warfarin is managed by [facility] outpatient. VAN will manage inpatient and sign off at discharge. John Bailey PharmD VAN Consult Service is available daily [phone] via [employer]. [1] Past Medical History: Diagnosis Date Altered mental status, unspecified Ataxia Atherosclerotic heart disease Bradycardia, unspecified Cognitive communication deficit COPD (chronic obstructive pulmonary disease) (HCC) i was told i had COPD, then I was told i wasn't, i don't know for sure Difficulty walking Dysphagia, oropharyngeal phase Dyspnea Essential (primary) hypertension Gastro-esophageal reflux disease without esophagitis Muscle weakness (generalized) Need for assistance with personal care Other chronic pain Pain in left shoulder Paroxysmal atrial fibrillation (HCC) Peripheral vascular disease, unspecified (HCC) Presence of cardiac pacemaker Repeated falls Sick sinus syndrome (CMS/HCC) (HCC) Unsteadiness on feet Weakness Normal [facility] BASIC METABOLIC PANELon 11-05 Anion gap [Moles/Vol] 11 mmol/L Normal 3-13 [facility] Comment on above: Performed By: #### L [id number], [id number], LAB15 ####Wood Experimental Mechanic: THERON PERRY ([id number])[facility] ([facility])[address] Calcium [Mass/Vol] 8.8 mg/dL Normal 8.8-10.0 [facility] Comment on above: Performed By: #### L [id number], [id number], LAB15 ####Wood Experimental Mechanic: THERON PERRY ([id number])[facility] Chloride [Moles/Vol] 101 mmol/L Normal 98-107 [facility] Comment on above: Performed By: #### L AB103, [id number], LAB15 ####Wood Experimental Mechanic: THERON PERRY ([id number])[facility] [place] [address] [place] CO2 [Moles/Vol] 29 mmol/L Normal 23-31 [facility] Comment on above: Performed By: #### L [id number], [id number], LAB15 ####Wood Experimental Mechanic: THERON PERRY ([id number])[facility] ([facility])[address] Creatinine [Mass/Vol] 0.76 mg/dL Normal 0.57-1.11 [facility] Comment on above: Performed By: #### L AB103, [id number], LAB15 ####Wood Experimental Mechanic: THERON PERRY ([id number])[facility] ([facility])[address] GLOMERULAR FILTRATION RATE ML/MIN/1.73 SQ M.PREDICTED 82.3 mL/min/1.73m*2 Normal >60.0 [facility] Comment on above: Result Comment: Calc ulation based on the Chronic Kidney Disease Epidemiology Collaboration (CKD-EPI) equation refit without adjustment for race Performed By: #### L AB103, [id number], LAB15 ####Wood Experimental Mechanic: THERON PERRY ([id number])[facility] ([facility])[address] [place] [address] Glucose [Mass/Vol] 159 mg/dL High 82-115 [facility] Comment on above: Performed By: #### L AB103, [id number], LAB15 ####Wood Experimental Mechanic: THERON PERRY ([id number])[facility] ([facility])[address] [place] [address] Potassium [Moles/Vol] 3.2 mmol/L Low 3.5-5.1 [facility] Comment on above: Result Comment: [facility] potassium values may be up to 0.5 mmol/L lower than serum values. Performed By: #### L AB103, [id number], LAB15 ####Wood Experimental Mechanic: THERON PERRY ([id number])[facility] [place] [address] [place] Sodium [Moles/Vol] 141 mmol/L Normal 136-145 [facility] Comment on above: Performed By: #### L AB103, [id number], LAB15 ####Wood Experimental Mechanic: THERON PERRY ([id number])[facility] ([facility])[address] Urea nitrogen [Mass/Vol] 23 mg/dL Normal 9-23 [facility] Comment on above: Performed By: #### L AB103, [id number], LAB15 ####Wood Experimental Mechanic: THERON PERRY ([id number])[facility] ([facility])[address] [place] [address] Basic metabolic 1998 panelon 11-16-2024 Anion gap [Moles/Vol] 11 mmol/L 3 - 13 mmol/L [facility] Calcium [Mass/Vol] 8.8 mg/dL 8.8 - 10. 0 mg/dL [facility] Chloride [Moles/Vol] 101 mmol/L 98 - 10 7 mmol/L [facility] CO2 [Moles/Vol] 29 mmol/L 23 - 31 mmol/L [facility] Creatinine [Mass/Vol] 0.76 mg/dL 0.57 - 1.11 mg/dL [facility] GFR/1.73 sq M.predicted (S/P/Bld) [Vol rate/Area] 82.3 mL/min - PINF [facility] Glucose [Mass/Vol] 159 mg/dL High 82 - 115 mg/dL [facility] Potassium [Moles/Vol] 3.2 mmol/L Low 3.5 - 5.1 mmol/L [facility] Sodium [Moles/Vol] 141 mmol/L 136 - 145 mmol/L [facility] Urea nitrogen [Mass/Vol] 23 mg/dL 9 - 23 mg/dL [facility] CBC W Auto Differential pane l (Bld)on 11-16-2024 Basophils (Bld) [#/Vol] 0 10*3/uL 0.0 - 0.2 10*3/uL [facility] Basophils/100 WBC (Bld) 0.2 % 0.0 - 2.0 % [facility] Eosinophils (Bld) [#/Vol] 0 10*3/uL 0.0 - 0.5 10*3/uL [facility] Eosinophils/100 WBC (Bld) 0 % 0.0 - 6.0 % [facility] Erythrocyte distribution width (RBC) [Ratio] 19.9 % High 11.5 - 15.0 % [facility] Hematocrit (Bld) [Volume fraction] 32.1 % Low 35.0 - 47.0 % [facility] Hemoglobin (Bld) [Mass/Vol] 9.6 g/dL Low 11.7 - 16.0 g/dL [facility] Immature granulocytes (Bld) [#/Vol] 0.1 10*3/uL High NINF - 0.1 10*3/uL [facility] [employer] Immature granulocytes/100 WBC (Bld) 0.6 % 0.0 - 2.0 % [facility] Interpretation and review of laboratory results Abnormal [facility] [employer] Lymphocytes (Bld) [#/Vol] 0.8 10*3/uL Low 1.0 - 4.3 10*3/uL [facility] Lymphocytes/100 WBC (Bld) 6.3 % Low 15.0 - 45.0 % [facility] MCH (RBC) [Entitic mass] 24.4 pg Low 26.0 - 34.0 pg [facility] MCHC (RBC) [Mass/Vol] 29.9 % Low 30.5 - 36.0 % [facility] MCV (RBC) [Entitic vol] 81.7 fL 77.0 - 99.0 fL [facility] [employer] Monocytes (Bld) [#/Vol] 0.4 10*3/uL 0.0 - 0.9 10*3/uL [facility] [employer] Monocytes/100 WBC (Bld) 2.9 % Low 5.0 - 13.0 % [facility] [employer] Neutrophils (Bld) [#/Vol] 11.5 10*3/uL High 1.8 - 7.5 10*3/uL [facility] [employer] Neutrophils/100 WBC (Bld) 90 % High 38.0 - 82.0 % [facility] [employer] Nucleated RBC/100 WBC (Bld) [Ratio] 0 % [facility] [employer] Platelet mean volume (Bld) [Entitic vol] 12.1 fL 9.0 - 12.7 fL [facility] [employer] Platelets (Bld) [#/Vol] 208 10*3/uL 140 - 440 10*3/uL [facility] RBC (Bld) [#/Vol] 3.93 10*6/uL 3.80 - 5.2 0 10*6/uL [facility] [employer] WBC (Bld) [#/Vol] 12.8 10*3/uL High 3.6 - 10.7 10*3/uL [facility] CBC WITH AUTO DIFFERENTIALon 11-16-2024 Basophils (Bld) [#/Vol] 0.0 10*3/uL Normal 0.0-0.2 [facility] Comment on above: Performed By: #### L [id number] ####[employer] Experimental [employer]ic: THERONONEIL ANTONIOAlvaroLUCRECIA ([id number])[facility] ([facility])[address] Basophils/100 WBC (Bld) 0.2 % Normal 0.0-2.0 [facility] Comment on above: Performed By: #### L [id number] ####[employer] Experimental Mechanic: THERONONEIL PERRY ([id number])[facility])[address] Eosinophils (Bld) [#/Vol] 0.0 10*3/uL Normal 0.0-0.5 [facility] Comment on above: Performed By: #### L [id number] ####[employer] Experimental [employer]ic: THERON PERRY ([id number])[facility] ([facility])[address] [place] [address] Eosinophils/100 WBC (Bld) 0.0 % Normal 0.0-6.0 [facility] Comment on above: Performed By: #### L [id number] ####Wood Experimental Mechanic: THERONONEIL PERRY ([id number])[facility] ([facility])[address] Erythrocyte distribution width (RBC) [Ratio] 19.9 % High 11.5-15.0 [facility] Comment on above: Performed By: #### L [id number] ####[employer] Experimental [employer]ic: THERON MONREALLUCRECIA ([id number])[facility] ([facility])[address] Hematocrit (Bld) [Volume fraction] 32.1 % Low 35.0-47.0 [facility] Comment on above: Performed By: #### L [id number] ####[employer] Experimental [employer]ic: THERON ORLANDO ([id number])[facility] ([facility])[address] Hemoglobin (Bld) [Mass/Vol] 9.6 g/dL Low 11.7-16.0 [facility] Comment on above: Performed By: #### L [id number] ####[employer] Experimental [employer]ic: THERON PERRY ([id number])[facility] ([facility])[address] IMMATURE GRANS % 0.6 % Normal 0.0-2.0 [facility] Comment on above: Performed By: #### L [id number] ####[employer] Experimental [employer]ic: THERON PERRY ([id number])[facility] ([facility])[address] IMMATURE GRANS ABSOLUTE 0.1 10*3/uL High <0.1 [facility] Comment on above: Performed By: #### L [id number] ####Wood Experimental Mechanic: THERON PERRY ([id number])[facility] ([facility])[address] Lymphocytes (Bld) [#/Vol] 0.8 10*3/uL Low 1.0-4.3 [facility] Comment on above: Performed By: #### L [id number] ####Wood Experimental Mechanic: THERON PERRY ([id number])[facility] [place] ([facility])[address] Lymphocytes/100 WBC (Bld) 6.3 % Low 15.0-45.0 [facility] Comment on above: Performed By: #### L [id number] ####[employer] Experimental Mechanic: THERON PERRY ([id number])[facility] ([facility])[address] MCH (RBC) [Entitic mass] 24.4 pg Low 26.0-34.0 [facility] Comment on above: Performed By: #### L [id number] ####Wood Experimental Mechanic: THERON PERRY ([id number])[facility] ([facility])[address] MCHC 29.9 % Low 30.5-36.0 [facility] Comment on above: Performed By: #### L [id number] ####[employer] Experimental Mechanic: THERON PERRY ([id number])[facility] ([facility])[address] MCV (RBC) [Entitic vol] 81.7 fL Normal 77.0-99.0 [facility] Comment on above: Performed By: #### L [id number] ####[employer] Experimental Mechanic: THERON MONREALLUCRECIA ([id number])[facility] ([facility])[address] Monocytes (Bld) [#/Vol] 0.4 10*3/uL Normal 0.0-0.9 [facility] Comment on above: Performed By: #### L [id number] ####[employer] Experimental Mechanic: THERON MONREALLUCRECIA ([id number])[facility] ([facility])[address] Monocytes/100 WBC (Bld) 2.9 % Low 5.0-13.0 [facility] Comment on above: Performed By: #### L [id number] ####[employer] Experimental Mechanic: THERON MONREALLUCRECIA ([id number])[facility] ([facility])[address] NEUTROPHILS ABSOLUTE 11.5 10*3/uL High 1.8-7.5 [facility] Comment on above: Performed By: #### L [id number] ####[employer] Experimental Mechanic: THERON PERRY ([id number])[facility] ([facility])[address] Neutrophils/100 WBC (Bld) 90.0 % High 38.0-82.0 [facility] Comment on above: Performed By: #### L [id number] ####Wood Experimental Mechanic: THERON PERRY ([id number])[facility] ([facility])[address] NRBC 0.0 /100 WBCs Normal 0.0-2.0 [facility] Comment on above: Performed By: #### L [id number] ####Wood Experimental Mechanic: THERON PERRY ([id number])[facility] ([facility])[address] Platelet mean volume (Bld) [Entitic vol] 12.1 fL Normal 9.0-12.7 [facility] Comment on above: Performed By: #### L [id number] ####Wood Experimental Mechanic: THERON PERRY ([id number])[facility] ([facility])[address] Platelets (Bld) [#/Vol] 208 10*3/uL Normal 140-440 [facility] Comment on above: Performed By: #### L [id number] ####Wood Experimental Mechanic: THERON PERRY ([id number])[facility] ([facility])[address] RBC (Bld) [#/Vol] 3.93 10*6/uL Normal 3.80-5.20 [facility] Comment on above: Performed By: #### L [id number] ####Wood Experimental Mechanic: THERON PERRY ([id number])[facility] ([facility])[address] [place] [address] WBC (Bld) [#/Vol] 12.8 10*3/uL High 3.6-10.7 [facility] Comment on above: Performed By: #### L [id number] ####Wood Experimental Mechanic: THERON PERRY ([id number])[facility] ([facility])[address] [place] [address] Laboratory - Chemistry and C hemistry - challengeon 11-16-2024 Magnesium [Mass/Vol] 2.2 mg/dL 1.6 - 2 .6 mg/dL [facility] - Coagulationon 0 11-16-2024 PT Coag (Bld) [Time] 34.3 s High 9.0 - 12.0 s [facility] MAGNESIUMon 11-16-2024 Magnesium [Mass/Vol] 2.2 mg/dL Normal 1.6-2.6 [facility] Comment on above: Result Comment: MEERA Lewis COMMENTS: Higher values can be expected in females during menses. Performed By: #### L [id number], [id number], LAB15 ####Wood Experimental Mechanic: THERON PERRY ([id number])[facility] ([facility])[address] Magnesium [Mass/Vol]on 11-16 Interpretation and review of laboratory results Normal [facility] No Panel Informationon 11-16 Interpretation and review of laboratory results Abnormal [facility] PHOSPHORUSon 11-16-2024 Phosphate [Mass/Vol] 2.2 mg/dL Low 2.3-4.7 [facility] Comment on above: Performed By: #### L AB103, [id number], LAB15 ####Wood Experimental Mechanic: THERON PERRY ([id number])[facility] ([facility])[address] PROTHROMBIN TIMEon INR Coag (PPP) [Relative time] 3.4 {INR} High 0.9-1.1 [facility] Comment on above: Result Comment: Alex mmended Anticoagulant Therapy: SEE BELOW ----- INR of 2.0 - 3.0 : - Prophylaxis of Venous Thrombosis (high-risk surgery) - Treatment of Venous Thrombosis - Treatment of Pulmonary Embolism (Includes tissue heart valves, Acute Myocardial Infarction to prevent systemic embolism, Valvular Heart Disease, and Atrial Fibrillation) ----- INR of 2.5 - 3.5 : - Mechanical Prosthetic Valves (high risk) - If oral anticoagulant therapy is used to prevent Myocardial Infarction Performed By: #### L [id number] ####Wood Experimental Mechanic: THERON PERRY ([id number])[facility] ([facility] [facility] PT Coag (PPP) [Time] 34.3 s High 9.0-12.0 [facility] Comment on above: Performed By: #### L [id number] ####Wood Experimental Mechanic: THERON PERRY ([id number])[facility] ([facility] PT Coag (Bld) [Time]on 11-16 INR Coag (PPP) [Relative time] 3.4 {INR} High 0.9 - 1.1 [facility] Interpretation and review of laboratory results Abnormal [facility] Phosphate [Moles/Vol]on 11-05 Phosphate [Mass/Vol] 2.2 mg/dL Low 2.3 - 4 .7 mg/dL [facility] Progress Noteon 11-16-2024 Progress Note OCCUPATIONAL THERAPY [facility] Treatment Note Name/MRN: Divya Joseph ([id number]) Date of : 1950 Age: 74 y.o. [facility] A Visit #: 1 out of 7 Discharge Recommendation: Long Term Facility Prior Level of Function Prior Level of ADL Function: Required Assist Prior Level of Mobility: Required Assist; Device: Wheelchair - manual Prior Level of Transfers: Required Assist Assessment Pt in bed upon arrival, agreeable to OT tx. Pt was SBA-min assist for bed-mobility, CGA for STS, Min assist for functional transfers, Min assist for mobility, and SBA-min for ADL's. Pt is progressing well with OT goals but still remains below baseline. Pt is limited by generalized weakness, decreased strength/endurance, increased instability, fall risk. Pt would continue to benefit from skilled OT therapy services to adapt to deficits and increase Occupational Performance. OT is rec SNF upon planned discharge. Subjective Ok to see for therapy. Pain: 0-10 pain scale: 2/10 Location: BLE's Medical Precautions: No active isolations Proper PPE donned/doffed in accordance with facility standards. Fall Risk: [place] Fall Risk Score: 100 (High Risk) Precautions/Restrictions: N/A Family/Caregiver Present: none Objective ADLs Grooming: SBA- Min Assist UE Dressing: Min Assist Pt completed grooming tasks seated EOB with SBA for facial hygiene with v/c's for sequencing. Pt completed UB dressing with min assist for lace mgmnt. Bed Mobility Supine to sit: SBA Sit to supine: Min Assist HOB Elevated Use of bed rail(s) Pt completed supine to sit with increased time to complete and min v/c's for sequencing with SBA for safety. Initial reports of dizziness with positional changes but able to subside. Pt returned supine with with min assist to elevate BL LE's into bed. Transfers/Mobility Sit to stand: Contact Guard Stand to sit: Contact Guard Stand step: Min Assist Sitting balance: SBA Standing balance: Contact Guard Functional mobility: Min Assist Pt completed x1 STS from EOB to fww with CGA for steadiness with STS d/t slight instability but no true LOB noted. Pt completed stand step transfer to EOB with min assist to guide hips into controlled descent. Pt sat EOB during ADL's with SBA for safety d/t decreased strength/endurance. Pt participated in balance training with fww and was CGA for balance d/t BL LE weakness. Pt completed marching in place and side steps close to HOB. Pt was min assist for steadiness. Device(s) used: Front wheeled walker Cognition Overall Cognitive Status: Exceptions - Following commands: follows one step commands with increased time and follows one step commands with repetition - Safety judgement: decreased awareness of need for safety - Initiation: requires cues for some - Sequencing: requires cues for some Overall Orientation Status: Oriented x4 Plan Continue acute OT per plan of care. Safety/Education Safety Safety Devices in place: All fall risk precautions in place, call light within reach, left in bed, gait belt, nurse notified, and no alarms engaged upon entry Restraints: No Education Education Given To: patient Education Provided: OT Role, Plan of Care, ADL Adaptive Strategies, Transfer Training, Energy Conservation, Orientation, Equipment, Fall Prevention Education, Discharge Recommendations, and Benefits of Increasing Activity Education Method: Verbal, Demonstration, and Teach Back Barriers to Learning: Cognition Education Outcome: Verbalized Understanding and Demonstrated Understanding AM-PAC AM-PAC Inpatient Daily Activity Raw Score: 19 ADL Inpatient CMS G-Code Modifier: CK Goals Patient Stated Goal: get better Encounter Problems Encounter Problems (Active) Balance Patient will maintain dynamic standing balance for 5 minutes with CGA in order to demonstrate decreased risk of falling. (Not Addressed) Start: 11/15/24 Expected End: 11/22/24 Dressing Upper Extremities Patient will complete upper body dressing MOD I (Progressing) Start: 11/15/24 Expected End: 11/22/24 Dressings Lower Extremities Patient will dress lower body MOD I (Not Addressed) Start: 11/15/24 Expected End: 11/22/24 Toileting Patient will complete toileting tasks at standard toilet with CGA. (Not Addressed) Start: 11/15/24 Expected End: 11/22/24 Transfers Patient will complete functional transfer with rolling walker with CGA in order to prepare for ambulation. (Progressing) Start: 11/15/24 Expected End: 11/22/24 Therapy Time Individual Co-treatment Time In 1324 Time Out 1347 Minutes 23 Timed Code Treatment Minutes: (1 ADL, 1 ACT) DONOVAN Abebe/Leah [facility] Progress Note PHYSICAL THERAPY [facility] Treatment Note Name/MRN: Divya Joseph ([id number]) Date of : 1950 Age: 74 y.o. Room/Bed: B4458/B4458 A Visit #: 1 out of 5 Discharge Recommendation: Long Term Facility Equipment Needed: No Prior Level of Function Prior Level of ADL Function: Required Assist Prior Level of Mobility: Required Assist; Device: Wheelchair - manual Prior Level of Transfers: Required Assist Assessment Pt demos improvement in functional mobility and progress toward therapy goals. Pt requires SBA for bed mobility, CGA to min A for functional transfers, min A for short distance ambulation with FWW. Pt is currently limited by weakness, fatigue and will benefit from acute skilled PT to address current deficits. Recommend SNF. Subjective Pt very pleasant and agreeable to therapy session Pain: BLE pain; does not rate Medical Precautions: No active isolations Proper PPE donned/doffed in accordance with facility standards. Fall Risk: [place] Fall Risk Score: 100 (High Risk) Precautions/Restrictions: N/A Overall Cognitive Status: WFL Overall Orientation Status: Oriented x4 Family/Caregiver Present: none Objective Bed Mobility Supine to sit: SBA Sit to supine: SBA Pt completes bed mobility at SBA with HOB elevated and use of bed rails. Increased time and effort to complete. Pt self-assists BLE into bed to return to supine. Transfers/Mobility Sit to stand: Contact Guard, Min Assist Stand to sit: Contact Guard Stand step: Min Assist Pt completes sit->stand from EOB to FWW requiring min A x1 to elevate. Pt completes stand step transfer from EOB->BSC requiring min A for general stability and cues for alignment to surface. Pt completes sit<->stand from BSC at CGA with cues provided for hand placement. Device(s) used: Front wheeled walker Ambulation Ambulation 1 Assistive device(s) used: Front wheeled walker Assist level: Min Assist Distance (ft): ~3 feet x1 Quality of gait: No LOB, reciprocal stepping, slow rashard Pt demos short, reciprocal gait pattern, decreased gait speed. Pt requires min A x1 for general stability. Increased time to complete short distance ambulation. Balance During Session: Posture: fair Sitting - Static: Supervision Sitting - Dynamic: Supervision Standing - Static: Contact Guard Standing - Dynamic: Contact Guard Pt completes x2 bouts of static and dynamic standing balance reaching outside MARIA ELENA with no UE assist for LB dressing requiring CGA for safety. Plan Continue acute PT per plan of care. Safety/Education Safety Safety Devices in place: All fall risk precautions in place, call light within reach, left in bed, gait belt, patient at risk for falls, nurse notified, and no alarms engaged upon entry Restraints: N/A Education Education Given To: patient Education Provided: PT Role, PT Goals, Gait Training, Plan of Care, Transfer Training, Equipment, and Benefits of Increasing Activity Education Method: Verbal and Demonstration Barriers to Learning: None Education Outcome: Verbalized Understanding, Demonstrated Understanding, and Continued Education Needed Outcome Measures AM-PAC AM-PAC Inpatient Mobility Raw Score (No Stairs) : 15 JH-HLM JH-HLM Scale: Static standing (1 or more minutes) Goals Patient Stated Goal: to walk Encounter Problems Encounter Problems (Active) Balance Patient will maintain dynamic standing balance for 2 minutes with SBA in order to demonstrate decreased risk of falling. (Progressing) Start: 11/15/24 Expected End: 11/22/24 Exercise Patient will complete lower extremity exercises for 1-2 sets / 5-10 reps in order to improve strength and activity tolerance for mobility. (Not Addressed) Start: 11/15/24 Expected End: 11/22/24 Mobility Patient will ambulate 20 feet with CGA and rolling walker in order to improve safety and independence with mobility. (Progressing) Start: 11/15/24 Expected End: 11/22/24 Transfers Patient will perform bed mobility with modified independence in order to improve independence and prepare for out of bed mobility. (Progressing) Start: 11/15/24 Expected End: 11/22/24 Patient will complete sit to stand transfer with SBA to rolling walker in order to improve safety and prepare for out of bed mobility. (Progressing) Start: 11/15/24 Expected End: 11/22/24 Therapy Time Individual Co-treatment Time In 0945 Time Out 0959 Minutes 14 Timed Code Treatment Minutes: 12 Minutes (ther act x1) Gabriella Bagley, PT Normal [facility] Progress Note Speech-Regulatory Compliance Director ology SPEECH LANGUAGE PATHOLOGY [facility] Dysphagia Treatment Note Patient Name: Divya Joseph Evaluation Date: 11/16/2024 Date of : 1950 Admission Date: 11/13/2024 9:27 AM Age: 74 y.o. Room[facility]Bed: [facility] A Subjective Patient alert and cooperative (after second attempt, sleeping sound at 8am). Seen upright in bed, after assist with repositioning. Answers all basic questions with clear vocal quality. Follows all basic commands. No visitors at bedside. Spoke with RN Deacon who cleared pt for treatment. Current Diet: Dietary Orders (From admission, onward) Start Ordered 11/15/24 1109 Adult diet Easy to Chew; Gluten Free Diet effective now Question Answer Comment Diet type Easy to Chew Other restriction(s): Gluten Free 11/15/24 1109 11/14/24 1452 Supplement:Dinner; Vanilla Magic Cup Until discontinued Question Answer Comment Frequency Dinner Select supplement: Vanilla Magic Cup 11/14/24 1451 Oxygen: Oxygen Therapy: Supplemental oxygen O2 Delivery Method: Nasal cannula O2 Flow Rate (L/min): 2 L/min Limited appetite this am. Pain: Pt denies any current pain. PPE Worn: gloves Objective & Assessment Dysphagia Treatment Dysphagia Activity 1: Assess tolerance of recommended diet Pt continue with decreased appetite. Particular with food choices and things that she like. Pt took few bites of peaches, they don't taste right. 2 small bites of eggs. Dislike. Pt is able to manage without dentures with very soft foods. Encourage use of dentures during more solid foods. She was agreeable to this. Dentures placed close to bedside so they are available for lunch meal. Occasional cough continues. Not during intake. +functional airway protection during MBSS without pharyngeal residuals post swallow. Oral deficits with mastication only. Plan & Recommendations Plan: continue Easy to chew diet, GLUTEN free for pt max diet at this time. Limited denture wearing d/t sore in mouth. Use denture adhesive to assist with tolerance of dentures and wash between meals as necessary. Recommend Easy to chew solids and Thin liquids and meds whole in puree, or break larger pills into pieces with drink and the following precautions: - Upright positioning for all PO intake - Slow rate of intake - Small bites/sips - Rest periods during meals - Encourage dentures for solid textures/each meal D/C Recommendations: No follow up therapy recommended post discharge Education Education Given: swallowing strategies Given To: patient Response: verbalizes understanding Goals Patient Stated Goal: To eat what I want. 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 Medical History[1] Patient is on warfarin for Afib and has a goal INR 2.0 - 3.0. Warfarin is currently managed by [facility]. Pt's home dose of warfarin is 2.5mg daily per [place] at the facility. Pt's last INR in the clinic was 2.6 on 10/29. S/sx of bleeding= hgb 9.6 . Noted bruises/bleeds easily on physical inspection with small amount of epistaxis 11/14. Interacting medications= ASA 81 mg , pravastatin 80 mg (home med)., dexamethasone 6 mg injection every 6 hours (last dose to end 11/15/24 at 1330). Labs: Recent Labs 11/14/24 0516 11/14/24199911/15/24 0419 11/16/24 0515 HGB 8.6* 9.2* 8.5* 9.6* HCT 30.6* -- 28.7* 32.1* PLT 160 -- 133* 208 Recent Labs 11/16/24 0515 INR 3.4* Date INR Dose 11/16 3.4 0.5mg 11/15 3.3 1 mg 11/14 2.3 2.5mg 11/13 2.3 4mg Assessment/Plan: 1. INR is supratherapeutic today. Will give subsequent low-dose decrease of 0.5 mg today . 2. Monitor for s/s of bleeding and drug interactions. Will adjust dose accordingly. 3. Warfarin is managed by [facility] outpatient. VAN will manage inpatient and sign off at discharge. John Bailey PharmD [facility]AN Consult Service is available daily [phone] via [employer] Secure Chat. [1] Past Medical History: Diagnosis Date Altered mental status, unspecified Ataxia Atherosclerotic heart disease Bradycardia, unspecified Cognitive communication deficit COPD (chronic obstructive pulmonary disease) (HCC) i was told i had COPD, then I was told i wasn't, i don't know for sure Difficulty walking Dysphagia, oropharyngeal phase Dyspnea Essential (primary) hypertension Gastro-esophageal reflux disease without esophagitis Muscle weakness (generalized) Need for assistance with personal care Other chronic pain Pain in left shoulder Paroxysmal atrial fibrillation (HCC) Peripheral vascular disease, unspecified (HCC) Presence of cardiac pacemaker Repeated falls Sick sinus syndrome (CMS/HCC) (HCC) Unsteadiness on feet Weakness [facility] Progress Note [facility] Geriatric Medicine Inpatient Consult Service Admission Date: 11/13/2024 Assessment Principal Problem: Transient alteration of awareness Plan Acute Metabolic Encephalopathy --Resolved, alert and oriented times 3 today --Etiology likely acute illness (sepsis-on Rocephin, respiratory failure) --Encourage PO intake, time up in chair, family visits, and sleep hygiene --If agitated, assess for and consider treating for pain --QTc= 473 ms on 11/13/24 --No antipsychotic unless patient is danger to self/others/treatment --Continue PRN melatonin at HS-has not used --Monitor for constipation/urinary retention - last BM 11/10 per patient --Possible medication contributions: none -Received Benadryl 11/13 Recommend trying to avoid if possible due to risk for confusion, lethargy. -PRN Robaxin-used last 11/16 --Brother reported no significant baseline memory concerns -- B12 WNL 338 on 11/14/24 and TSH WNL 0.69 on 11/14/24 Debility --contributing factors include COPD, chronic pain, medications --lives at [facility]. Propels self in w/c at baseline. --History of falls hitting head last week. CT head on 11/13/24-no acute abnormality. --Continue PT/OT while in patient. Therapy recommending SNF . Patient agreeable to rehab today if needed --Recently started on Methocarbamol at her facility for back pain-monitor for cognition closely/side effects. Consider low dose Tizanidine as an alternative. Dysphagia --ST following - recommend easy to chew solids and thin liquids, meds as tolerated --MBSS no laryngeal penetration or airway aspiration IBS --takes Dicyclomine 20mg TID at facility --Recommend decreasing/stopping due to risk of anticholinergic side effects. Not currently ordered. --denies abdominal pain today Chronic constipation --patient reports normal BM pattern every 10 days. --Continue Miralax as needed --no BM documented since admission, patient reports last BM 11/10 --Educated on use of bowel regimen - she declines due to concern for diarrhea Neuropathy --takes Gabapentin 200mg TID at facility --currently on Gabapentin 100mg BID and 200mg HS. Discussed with primary and will resume home dose gabapentin 200mg TID --reports neuropathy pain today is to her hands, feet and legs-she feels the gabapentin helps. OAB --takes Oxybutynin at facility. --Recommend alternative with less anticholinergic side effects versus stopping and monitoring symptoms. --currently on Trospium Follow-up: will follow with you Subjective Chief Complaint: Chief Complaint Patient presents with Altered Mental Status From [facility]. With AMS. Pt c/o of not feeling well. Pt with abd pain. Axo x 3 pt with temp of 100.3 Geriatrics consulted for impaired cognition HPI- The patient is new to me but seen by the Geriatric Inpatient Consult team. 74 y.o. year-old female with PMH of COPD, CAD s/p CABG, SSS s/p pacemaker, Dysphagia, HTN, GERD, Chronic pain, atrial fibrillation, repeated falls, PVD, anxiety, depression presented to the hospital from [facility] on 11/13/24 with complaints of mental status change and fever. Admitted with sepsis with acute hypoxic respiratory failure, possible UTI. CT chest showed possible right upper lobe PE. Exam limited by motion artifact. Pulmonology felt likely motion artifact and not PE. Has been on Warfarin. Found to have E.Coli bacteremia. ID following. Cardiology following- likely type II NSTEMI in setting of sepsis and UTI. Per initial geriatric consult, patient's brother reports patient's memory is good at baseline, no concerns. Needs assistance with bathing, dressing and uses a wheelchair. Independent in all other ADLs. Needs assistance with all IADLs except able to use the telephone independently. Interval History: Transferred to general medical/surgical floor . Patient today reprots she slept okay last night. Reports occasional cough today. States her neuropathy pain was bad yesterday, feels the gabapentin helps. Neuropathy pain mostly in her hands, feet and legs. Reports ate some for breakfast, enjoyed her coffee. Denies any abdominal pain, reports passing flatus. Last BM 11/10, Tuesday. Decline to take PRN Miralax as concern it will cause her diarrhea. Discussed with nurse, patient has been cooperative with medications. No agitation or behaviors noted. Progress notes reviewed: -Per ID, predict treatment with 4 weeks of ceftriaxone, if today's blood cultures negative, followed by surveillance blood cultures after completion of antimicrobial -seen by speech therapy, recommend easy to chew solids and thin liquids, meds as tolerated PRN meds in past 24 hours: Robaxin times 1 on 11/16 Labs: 11/16: Sodium 141, potassium 3.2, BUN 23, Creatinine 0.76 11/16: WBC 12.8, Hgb 9.6, Platelets 208 MBSS 11/14: no laryngeal penetration or airway aspiration 11/15: Seen by OT. Recommending SNF (more content not included)... [facility] [id number] 11-15-2024 [id number] ICU Transfer Check[address] st Transfer Med Reconciliation (resume home meds if able, convert to PO if able) Complete Antibiotics (name, indication, duration, convert to PO if able) Yes, addressed in today's progress note Steroid (indication, duration, convert to PO if able) None Anticipated Fenton Medications (ICU initiated) or Dose Changes and Indication No Permanently Discontinued Home Medications and Reason for medication contraindication No Rojo Catheter (please remove if able. Note: place DC order) No Central Line (please remove if able. Note: place DC order) No Transfer Discussed with: Dr Littlejohn If additional questions for ICU team within 24 hours of ICU transfer, page #[phone] for clarifications. [facility] BLOOD CULTUREon 11-15-2024 Bacteria identified Cx Nom (Bld) BLOOD CULTURE Reference No growth at 5 days ORDER COMMENTS: Blood Collection Site: Right Wrist [ S = SUSCEPTIBLE R = RESISTANT I = INTERMEDIATE S-DD = Susceptible-dose dependent NS = Non-susceptible NO = No Interpretation ] [facility] Comment on above: Performed By: #### L [id number] ####Wood Experimental Mechanic: MARIAMA CAGLE ([id number])[address] Bacteria identified Cx Nom (Bld) BLOOD CULTURE Reference No growth at 5 days ORDER COMMENTS: Blood Collection Site: Right Forearm [ S = SUSCEPTIBLE R = RESISTANT I = INTERMEDIATE S-DD = Susceptible-dose dependent NS = Non-susceptible NO = No Interpretation ] [facility] Comment on above: Performed By: #### L [id number] ####Wood Experimental Mechanic: MARIAMA CAGLE ([id number])[address] Bacteria identified Cx Nom ( Bld)Ordered By: Ramone Deleon on 11-15-2024 Interpretation and review of laboratory results Abnormal [facility] Bacteria identified Cx Nom ( U)Ordered By: Khadra Fong on 11-15-2024 Interpretation and review of laboratory results Abnormal [facility] CBC W Auto Differential pane l (Bld)on 11-15-2024 Erythrocyte distribution width (RBC) [Ratio] 20.1 % High 11.5 - 15.0 % [facility] Hematocrit (Bld) [Volume fraction] 28.7 % Low 35.0 - 47.0 % [facility] Hemoglobin (Bld) [Mass/Vol] 8.5 g/dL Low 11.7 - 16.0 g/dL [facility] IPF 11 [facility] MCH (RBC) [Entitic mass] 24.6 pg Low 26.0 - 34.0 pg [facility] MCHC (RBC) [Mass/Vol] 29.6 % Low 30.5 - 36.0 % [facility] MCV (RBC) [Entitic vol] 82.9 fL 77.0 - 99.0 fL [facility] Platelet mean volume (Bld) [Entitic vol] [facility] Platelets (Bld) [#/Vol] 133 10*3/uL Low 140 - 440 10*3/uL [facility] RBC (Bld) [#/Vol] 3.46 10*6/uL Low 3.80 - 5.2 0 10*6/uL [facility] WBC (Bld) [#/Vol] 8.6 10*3/uL 3.6 - 10.7 10*3/uL [facility] CBC WITH AUTO DIFFERENTIALon 11-15-2024 Erythrocyte distribution width (RBC) [Ratio] 20.1 % High 11.5-15.0 [facility] Comment on above: Performed By: #### L [id number] ####Wood Experimental Mechanic: THERON PERRY ([id number])[facility])[address] [place] [address] Hematocrit (Bld) [Volume fraction] 28.7 % Low 35.0-47.0 [facility] Comment on above: Performed By: #### L [id number] ####Wood Experimental Mechanic: THERON PERRY ([id number])[facility] ([facility])[address] [place] [address] Hemoglobin (Bld) [Mass/Vol] 8.5 g/dL Low 11.7-16.0 [facility] Comment on above: Performed By: #### L [id number], [id number] ####Wood Experimental Mechanic: THERON PERRY ([id number])[facility] (SBAB)[address] IPF 11 Normal [facility] Comment on above: Performed By: #### L [id number], [id number] ####Wood Experimental Mechanic: THERON PERRY ([id number])[facility] [place] ([facility] MCH (RBC) [Entitic mass] 24.6 pg Low 26.0-34.0 [facility] Comment on above: Performed By: #### L [id number], [id number] ####Wood Experimental Mechanic: THERON PERRY ([id number])[facility] ([facility] MCHC 29.6 % Low 30.5-36.0 [facility] Comment on above: Performed By: #### L [id number], [id number] ####Wood Experimental Mechanic: THERON PERRY ([id number])[facility] [place] (SB[facility])[address] MCV (RBC) [Entitic vol] 82.9 fL Normal 77.0-99.0 [facility] Comment on above: Performed By: #### L [id number], [id number] ####Wood Experimental Mechanic: THERON PERRY ([id number])[facility] [place] ([facility])[address] MPV Normal [facility] Comment on above: Result Comment: Unab le to obtain Performed By: #### L [id number], [id number] ####Wood Experimental Mechanic: THERON PERRY ([id number])[facility] [place] ([facility])[address] Platelets (Bld) [#/Vol] 133 10*3/uL Low 140-440 [facility] Comment on above: Performed By: #### L [id number], [id number] ####Wood Experimental Mechanic: THERON PERRY ([id number])[facility] [place] ([facility])[address] RBC (Bld) [#/Vol] 3.46 10*6/uL Low 3.80-5.20 [facility] Comment on above: Performed By: #### L [id number], [id number] ####Wood Experimental Mechanic: THERON PERRY ([id number])[facility] [place] (SBHLAB)[address] WBC (Bld) [#/Vol] 8.6 10*3/uL Normal 3.6-10.7 [facility] Comment on above: Performed By: #### L [id number], [id number] ####Wood Experimental Mechanic: THERON PERRY ([id number])[facility] [place] (SBHLAB)[address] COMPREHENSIVE METABOLIC PANE Blaise 11-15-2024 Albumin [Mass/Vol] 3.2 g/dL Low 3.4-4.8 [facility] Comment on above: Performed By: #### L [id number], LAB17, [id number] ####Wood Experimental Mechanic: THERON PERRY ([id number])[facility] (SB[facility]AB)[address] ALP [Catalytic activity/Vol] 52 U/L Normal 40-150 [facility] Comment on above: Performed By: #### L AB103, LAB17, [id number] ####Wood Experimental Mechanic: THERON PERRY ([id number])[facility] (SBHLAB)[address] ALT [Catalytic activity/Vol] 10 U/L Normal <30 [facility] Comment on above: Performed By: #### L AB103, LAB17, [id number] ####Wood Experimental Mechanic: THERON PERRY ([id number])[facility] (SBHLAB)[address] Anion gap [Moles/Vol] 10 mmol/L Normal 3-13 [facility] Comment on above: Performed By: #### L AB103, LAB17, [id number] ####Wood Experimental Mechanic: THERON LEWISCER ([id number])[facility] (SBHLAB)[address] AST [Catalytic activity/Vol] 32 U/L Normal <34 [facility] Comment on above: Performed By: #### L AB103, LAB17, [id number] ####Wood Experimental Mechanic: THERON MONREALLUCRECIA ([id number])[facility] (SB[facility]AB)[address] Bilirubin [Mass/Vol] 0.6 mg/dL Normal <1.2 [facility] Comment on above: Performed By: #### L AB103, LAB17, [id number] ####Wood Experimental Mechanic: THERON ANTONIOJT ([id number])[facility] [place] (SB[facility]AB)[address] Calcium [Mass/Vol] 8.8 mg/dL Normal 8.8-10.0 [facility] Comment on above: Performed By: #### L AB103, LAB17, [id number] ####Wood Experimental Mechanic: THERON ANTONIOAlvaroLUCRECIA ([id number])[facility] [place] (SBHLAB)[address] [place] [address] [place] Chloride [Moles/Vol] 100 mmol/L Normal 98-107 [facility] Comment on above: Performed By: #### L AB103, LAB17, [id number] ####Wood Experimental Mechanic: THERON PERRY ([id number])[facility] (SBHLAB)[address] [place] [address] [place] CO2 [Moles/Vol] 31 mmol/L Normal 23-31 [facility] Comment on above: Performed By: #### L AB103, LAB17, [id number] ####Wood Experimental Mechanic: THERON PERRY ([id number])[facility] (SB[facility]AB)[address] Creatinine [Mass/Vol] 0.79 mg/dL Normal 0.57-1.11 [facility] Comment on above: Performed By: #### L AB103, LAB17, [id number] ####Wood Experimental Mechanic: THERON PERRY ([id number])[facility] (SBHLAB)[address] GLOMERULAR FILTRATION RATE ML/MIN/1.73 SQ M.PREDICTED 78.6 mL/min/1.73m*2 Normal >60.0 [facility] Comment on above: Result Comment: Calc ulation based on the Chronic Kidney Disease Epidemiology Collaboration (CKD-EPI) equation refit without adjustment for race Performed By: #### L AB103, LAB17, [id number] ####Wood Experimental Mechanic: THERON PERRY ([id number])[facility] [place] (SBHLAB)[address] Glucose [Mass/Vol] 168 mg/dL High 82-115 [facility] Comment on above: Performed By: #### Leah ABRaffi, LAB17, [id number] ####Wood Experimental Mechanic: THERON PERRY ([id number])[facility] (SBHLAB)[address] Potassium [Moles/Vol] 3.1 mmol/L Low 3.5-5.1 [facility] Comment on above: Result Comment: [facility] potassium values may be up to 0.5 mmol/L lower than serum values. Performed By: #### L AB103, LAB17, [id number] ####Wood Experimental Mechanic: THERON PERRY ([id number])[facility] (SBHLAB)[address] Protein [Mass/Vol] 6.1 g/dL Low 6.4-8.3 [facility] Comment on above: Performed By: #### L AB103, LAB17, [id number] ####Wood Experimental Mechanic: THERON PERRY ([id number])[facility] (SBHLAB)[address] Sodium [Moles/Vol] 141 mmol/L Normal 136-145 [facility] Comment on above: Performed By: #### L AB103, LAB17, [id number] ####Wood Experimental Mechanic: THERON PERRY ([id number])[facility] (SBHLAB)[address] Urea nitrogen [Mass/Vol] 13 mg/dL Normal 9-23 [facility] Comment on above: Performed By: #### L AB103, LAB17, [id number] ####Wood Experimental Mechanic: THERON PERRY ([id number])[facility] (SBHLAB)[address] Comprehensive metabolic 1998 panelon 11-15-2024 Albumin [Mass/Vol] 3.2 g/dL Low 3.4 - 4.8 g/dL [facility] ALP [Catalytic activity/Vol] 52 U/L 40 - 150 U/L [facility] ALT [Catalytic activity/Vol] 10 U/L NINF - 30 U/L [facility] Anion gap [Moles/Vol] 10 mmol/L 3 - 13 mmol/L [facility] AST [Catalytic activity/Vol] 32 U/L NINF - 34 U/L [facility] Bilirubin [Mass/Vol] 0.6 mg/dL NINF - 1.2 mg/dL [facility] Calcium [Mass/Vol] 8.8 mg/dL 8.8 - 10. 0 mg/dL [facility] Chloride [Moles/Vol] 100 mmol/L 98 - 10 7 mmol/L [facility] CO2 [Moles/Vol] 31 mmol/L 23 - 31 mmol/L [facility] Creatinine [Mass/Vol] 0.79 mg/dL 0.57 - 1.11 mg/dL [facility] GFR/1.73 sq M.predicted (S/P/Bld) [Vol rate/Area] 78.6 mL/min - PINF [facility] Glucose [Mass/Vol] 168 mg/dL High 82 - 115 mg/dL [facility] Potassium [Moles/Vol] 3.1 mmol/L Low 3.5 - 5.1 mmol/L [facility] Protein [Mass/Vol] 6.1 g/dL Low 6.4 - 8.3 g/dL [facility] Sodium [Moles/Vol] 141 mmol/L 136 - 145 mmol/L [facility] Urea nitrogen [Mass/Vol] 13 mg/dL 9 - 23 mg/dL [facility] - Chemistry and C hemistry - challengeon 11-15-2024 Magnesium [Mass/Vol] 1.8 mg/dL 1.6 - 2 .6 mg/dL [facility] - Coagulationon 0 11-15-2024 PT Coag (Bld) [Time] 31.9 s High 9.0 - 12.0 s [facility] - Hematology and Cell countson 11-15-2024 Anisocytosis Ql (Bld) Slight Abnormal (none) [facility] Band form neutrophils (Bld) [#/Vol] 0.5 10*3/uL High NINF - 0.0 10*3/uL [facility] Band form neutrophils/100 WBC (Bld) 6 % High NINF - 0 % [facility] Lymphocytes (Bld) [#/Vol] 0.3 10*3/uL Low 1.0 - 4.3 10*3/uL [facility] Lymphocytes/100 WBC (Bld) 3 % Low 15 - 45 % [facility] Monocytes (Bld) [#/Vol] 0.1 10*3/uL 0.0 - 0.9 10*3/uL [facility] Monocytes/100 WBC (Bld) 1 % Low 5 - 13 % [facility] Neutrophils (Bld) [#/Vol] 8.3 10*3/uL High 1.8 - 7.5 10*3/uL [facility] RBC morphology finding Nom (Bld) abnormal [facility] Segmented neutrophils/100 WBC (Bld) 90 % High 38 - 82 % [facility] - Microbiology an d Antimicrobial susceptibilityOrdered By: Khadra Fong on 11-15-2024 Bacteria identified Cx Nom (U) >100,000 CFU/mL Escherichia coli Abnormal [facility] - Microbiology an d Antimicrobial susceptibilityOrdered By: Ramone Deleon on 11-15-2024 Bacteria identified Cx Nom (Bld) Escherichia coli Critically abnormal [facility] - Microbiology an d Antimicrobial susceptibilityOrdered By: Marco Antonio Granger on 11-15-2024 L. pneumophila 1 Ag IA.rapid Ql (U) Not detected Not Detected [facility] MAGNESIUMon 11-15-2024 Magnesium [Mass/Vol] 1.8 mg/dL Normal 1.6-2.6 [facility] Comment on above: Result Comment: MEERA Lewis COMMENTS: Higher values can be expected in females during menses. Performed By: #### L AB103, LAB17, [id number] ####Wood Experimental Mechanic: THERON PERRY ([id number])[facility] [place] ([facility])[address] [place] [address] [place] MANUAL DIFFERENTIAL (CELLAVI JAZ)on 11-15-2024 ANISOCYTOSIS PRESENCE IN BLOOD BY LIGHT MICROSCOPY Slight Abnormal (none) [facility] Comment on above: Performed By: #### L [id number], [id number] ####Wood Experimental Mechanic: THERON PERRY ([id number])[facility] [place] ([facility])[address] BAND NEUTROPHILS TOTAL PER COUNTED LEUKOCYTES BY MANUAL COUNT 6 Normal [facility] Comment on above: Performed By: #### L [id number], [id number] ####Wood Experimental Mechanic: THERON PERRY ([id number])[facility] [place] ([facility])[address] [place] [address] [place] BANDS (10*3/UL) IN BLOOD-CELLAVISION 0.5 10*3/uL High <=0.0 [facility] Comment on above: Performed By: #### L [id number], [id number] ####Wood Experimental Mechanic: THERON PERRY ([id number])[facility] [place] ([facility])[address] [place] [address] [place] BASOPHILS TOTAL PER COUNTED LEUKOCYTES BY MANUAL COUNT Normal [facility] Comment on above: Performed By: #### L [id number], [id number] ####Wood Experimental Mechanic: THERON PERRY ([id number])[facility] [place] ([facility])[address] [place] [address] [place] BLASTS TOTAL PER COUNTED LEUKOCYTES BY MANUAL COUNT Normal [facility] Comment on above: Performed By: #### L [id number], [id number] ####Wood Experimental Mechanic: THERON PERRY ([id number])[facility] [place] ([facility])[address] [place] [address] [place] EOSINOPHILS TOTAL PER COUNTED LEUKOCYTES BY MANUAL COUNT Normal [facility] Comment on above: Performed By: #### L [id number], [id number] ####Wood Experimental Mechanic: THERON ANTONIOJT ([id number])[facility] [place] (SBHLAB)[address] [place] [address] [place] LYMPHOCYTES (10*3/UL) IN BLOOD-CELLAVISION 0.3 10*3/uL Low 1.0-4.3 [facility] Comment on above: Performed By: #### L [id number], [id number] ####Wood Experimental Mechanic: THERON LEWISCER ([id number])[facility] [place] (SBHLAB)[address] [place] [address] [place] LYMPHOCYTES TOTAL PER COUNTED LEUKOCYTES BY MANUAL COUNT 3 Normal [facility] Comment on above: Performed By: #### L [id number], [id number] ####Wood Experimental Mechanic: THERON ANTONIOJT ([id number])[facility] [place] ([facility])[address] [place] [address] [place] LYMPHOCYTES/100 LEUKOCYTES IN BLOOD-CELLAVISION 3 % Low 15-45 [facility] Comment on above: Performed By: #### L [id number], [id number] ####Wood Experimental Mechanic: THERON PERRY ([id number])[facility] [place] (SBHLAB)[address] [place] [address] [place] METAMYELOCYTES TOTAL PER COUNTED LEUKOCYTES BY MANUAL COUNT Normal [facility] Comment on above: Performed By: #### L [id number], [id number] ####Wood Experimental Mechanic: THERON PERRY ([id number])[facility] [place] ([facility])[address] [place] [address] [place] MONOCYTES (10*3/UL) IN BLOOD-CELLAVISION 0.1 10*3/uL Normal 0.0-0.9 [facility] Comment on above: Performed By: #### L [id number], [id number] ####Wood Experimental Mechanic: THERON PERRY ([id number])[facility] [place] ([facility])[address] [place] [address] [place] MONOCYTES TOTAL PER COUNTED LEUKOCYTES BY MANUAL COUNT 1 Normal [facility] Comment on above: Performed By: #### L [id number], [id number] ####Wood Experimental Mechanic: THERON PERRY ([id number])[facility] [place] (SBHLAB)[address] [place] [address] [place] MONOCYTES/100 LEUKOCYTES IN BLOOD-NIKKY 1 % Low 5-13 [facility] Comment on above: Performed By: #### L [id number], [id number] ####Wood Experimental Mechanic: THERON PERRY ([id number])[facility] [place] (SBHLAB)[address] [place] [address] [place] MYELOCYTES COUNTED BY MANUAL COUNT Normal [facility] Comment on above: Performed By: #### L [id number], [id number] ####Wood Experimental Mechanic: THERON PERRY ([id number])[facility] [place] ([facility])[address] [place] [address] [place] NEUTROPHILS BAND FORM/100 LEUKOCYTES IN BLOOD-CELLAVISI 6 % High <=0 [facility] Comment on above: Performed By: #### L [id number], [id number] ####Wood Experimental Mechanic: THERON PRERY ([id number])[facility] [place] ([facility])[address] [place] [address] [place] NEUTROPHILS TOTAL PER COUNTED LEUKOCYTES BY MANUAL COUNT 91 Normal [facility] Comment on above: Performed By: #### L [id number], [id number] ####Wood Experimental Mechanic: THERON PERRY ([id number])[facility] [place] ([facility])[address] [place] [address] [place] PROMYELOCYTES TOTAL PER COUNTED LEUKOCYTES BY MANUAL COUNT Normal [facility] Comment on above: Performed By: #### L [id number], [id number] ####Wood Experimental Mechanic: THERON PERRY ([id number])[facility] [place] ([facility])[address] [place] [address] [place] RBC MORPHOLOGY IN BLOOD abnormal Normal [facility] Comment on above: Performed By: #### L [id number], [id number] ####Wood Experimental Mechanic: THERON PERRY ([id number])[facility] [place] ([facility])[address] SEGMENTED NEUTROPHILS (10*3/UL) IN BLOOD-CELLAVISION 8.3 10*3/uL High 1.8-7.5 [facility] Comment on above: Performed By: #### L [id number], [id number] ####Wood Experimental Mechanic: THERON PERRY ([id number])[facility] [place] ([facility])[address] SEGMENTED NEUTROPHILS/100 LEUKOCYTES-CE 90 % High 38-82 [facility] Comment on above: Performed By: #### L [id number], [id number] ####Wood Experimental Mechanic: THERON PERRY ([id number])[facility] [place] ([facility])[address] UNCLASSIFIED CELLS TOTAL PER COUNTED LEUKOCYTES BY MANUAL COUNT Normal [facility] Comment on above: Performed By: #### L [id number], [id number] ####Wood Experimental Mechanic: THERON PERRY ([id number])[facility] [place] ([facility])[address] VARIANT LYMPHOCYTES TOTAL PER COUNTED LEUKOCYTES BY MANUAL COUNT Normal [facility] Comment on above: Performed By: #### L [id number], [id number] ####Wood Experimental Mechanic: THERON PERRY ([id number])[facility] [place] ([facility])[address] Magnesium [Mass/Vol]on 11-15 Interpretation and review of laboratory results Normal [facility] No Panel Informationon 11-15 Bands Manual 6 [facility] Interpretation and review of laboratory results Abnormal [facility] Lymphocytes Manual 3 [facility] Monocytes Manual 1 [facility] Neutrophils Manual 91 [facility] Interpretation and review of laboratory results Abnormal [facility] No Panel InformationOrdered By: Marco Antonio Granger on 11-15-2024 Interpretation and review of laboratory results Normal [facility] Streptococcus pneumoniae Ag Not detected Not Detected [facility] PHOSPHORUSon 11-15-2024 Phosphate [Mass/Vol] 1.8 mg/dL Low 2.3-4.7 [facility] Comment on above: Performed By: #### L AB103, LAB17, [id number] ####Wood Experimental Mechanic: THERON PERRY ([id number])[facility] LAMBERTSudeep [facility] PROTHROMBIN TIMEon INR Coag (PPP) [Relative time] 3.3 {INR} High 0.9-1.1 [facility] Comment on above: Result Comment: Alex mmended Anticoagulant Therapy: SEE BELOW ----- INR of 2.0 - 3.0 : - Prophylaxis of Venous Thrombosis (high-risk surgery) - Treatment of Venous Thrombosis - Treatment of Pulmonary Embolism (Includes tissue heart valves, Acute Myocardial Infarction to prevent systemic embolism, Valvular Heart Disease, and Atrial Fibrillation) ----- INR of 2.5 - 3.5 : - Mechanical Prosthetic Valves (high risk) - If oral anticoagulant therapy is used to prevent Myocardial Infarction Performed By: #### Leah [id number] ####Wood Experimental Mechanic: THERON PERRY ([id number])[facility] ([facility] PT Coag (PPP) [Time] 31.9 s High 9.0-12.0 [facility] Comment on above: Performed By: #### L [id number] ####Wood Experimental Mechanic: THERON PERRY ([id number])[facility] (HLAB)[address] PT Coag (Bld) [Time]on 11-15 INR Coag (PPP) [Relative time] 3.3 {INR} High 0.9 - 1.1 [facility] Interpretation and review of laboratory results Abnormal [facility] Phosphate [Moles/Vol]on 11-05 Phosphate [Mass/Vol] 1.8 mg/dL Low 2.3 - 4 .7 mg/dL [facility] Progress Noteon 11-15-2024 Progress Note presented with AMS, abdominal pain. Initially admitted to [facility] for UTI, but became hypotensive briefly requiring pressors. These have been off since yesterday and medically stable to transfer to the floor. Medical team will accept into care. Mercedes Littlejohn MD Normal [facility] Progress Note [facility] Geriatric Medicine Inpatient Consult Service Admission Date: 11/13/2024 Assessment Principal Problem: Transient alteration of awareness Plan Acute Metabolic Encephalopathy --appears resolved --Etiology likely acute illness (sepsis, respiratory failure) --Encourage PO intake, time up in chair, family visits, and sleep hygiene --If agitated, assess for and consider treating for pain --QTc= 473 ms --No antipsychotic unless patient is danger to self/others/treatment --Continue PRN melatonin at HS --Monitor for constipation/urinary retention - last BM 11/10 per patient --Possible medication contributions: none -Received Benadryl 11/13 Recommend trying to avoid if possible due to risk for confusion, lethargy. --Brother reported no significant baseline memory concerns -- B12 338 and TSH 0.69 Debility --contributing factors include COPD, chronic pain, medications --lives at [facility]. Propels self in w/c at baseline. --History of falls hitting head last week. CT head no acute abnormality. --PT and OT. OT recommends SNF. PT eval pending. --Anticipate return to facility at discharge --Recently started on Methocarbamol at her facility for back pain. Monitor for side effects. Consider low dose Tizanidine as an alternative. Dysphagia --ST following - advancing diet --MBSS no laryngeal penetration or airway aspiration IBS --takes Dicyclomine 20mg TID at facility --Recommend decreasing/stopping due to risk of anticholinergic side effects. Not currently ordered. --no current abdominal complaints Chronic constipation --patient reports normal BM pattern every 10 days. --Continue Miralax as needed --no BM documented since admission --Educated on use of bowel regimen - she declines due to concern for diarrhea Neuropathy --takes Gabapentin 200mg TID at facility --Resume Gabapentin 100mg BID and 200mg HS to prevent withdrawal. OAB --takes Oxybutynin at facility. --Recommend alternative with less anticholinergic side effects versus stopping and monitoring symptoms. --currently on Trospium Follow-up: will follow with you Subjective Chief Complaint: Chief Complaint Patient presents with Altered Mental Status From [facility]. With AMS. Pt c/o of not feeling well. Pt with abd pain. Axo x 3 pt with temp of 100.3 Geriatrics consulted for impaired cognition HPI- The patient is known to me. 74 y.o. year-old female with PMH of COPD, CAD s/p CABG, SSS s/p pacemaker, Dysphagia, HTN, GERD, Chronic pain, atrial fibrillation, repeated falls, PVD, anxiety, depression presented to the hospital from [facility] on 11/13/24 with complaints of mental status change and fever. Admitted with sepsis with acute hypoxic respiratory failure, possible UTI. CT chest showed possible right upper lobe PE. Exam limited by motion artifact. Pulmonology felt likely motion artifact and not PE. Has been on Warfarin. Found to have E.Coli bacteremia. ID following. Cardiology following- likely type II NSTEMI in setting of sepsis and UTI. Interval History: Remains on ICU. Developed respiratory distress overnight. Received lasix with improvement. Repeat blood cultures pending CMP: K 3.1 glucose 168 albumin 3.2 CBC: Hgb 8.5 WBC 8.6 (18.2 yesterday) CXR 11/14 IMPRESSION: 1. Yabtc-vl-talqwmtt layering LEFT pleural effusion. 2. Suspect small RIGHT pleural effusion. 3. Moderate to severe centrilobular emphysema with suspected superimposed interstitial edema. MBSS 11/14: no laryngeal penetration or airway aspiration Patient reports she is feeling better. She would like to return to her facility as soon as she can. She feels she will do better and would like to resume therapy there. She has many people rooting for her there. She has not been sleeping well. Has poor appetite but this has been for months. On a gluten free diet. Been several days since last BM and this is normal for her. Nursing reports no concerns, may be moved to regular floor soon. Review of Systems Constitutional: Positive for fatigue. Negative for fever. Respiratory: Positive for cough and shortness of breath. Cardiovascular: Negative for chest pain and leg swelling. Gastrointestinal: Negative for abdominal pain, constipation, diarrhea and nausea. Genitourinary: Negative for difficulty urinating. Musculoskeletal: Positive for arthralgias. Neurological: Positive for weakness. Psychiatric/Behavioral: Positive for sleep disturbance. Negative for confusion and dysphoric mood. The patient is not nervous/anxious. Objective BP 142/67 Pulse 66 Temp 36.9 ?C (98.5 ?F) Resp 20 Ht 5' 3 (1.6 m) Wt 165 lb 2 oz (74.9 kg) SpO2 95% BMI 29.25 kg/m? Intake/Output Summary (Last 24 hours) at 11/15/2024 1226 Last data filed at 11/15/2024 0417 Gross per 24 hour Intake 550 ml Output 4500 ml Net -3950 ml Wt Readings from Last 3 Encounters: 11/15 (more content not included)... Normal [facility] Progress Note Speech-Regulatory Compliance Director ology SPEECH LANGUAGE PATHOLOGY [facility] Dysphagia Treatment Note Patient Name: Divya Joseph Evaluation Date: 11/15/2024 Date of : 1950 Admission Date: 11/13/2024 9:27 AM Age: 74 y.o. Room/Bed: 222-03/222-03 A Subjective Patient alert and cooperative. Seen upright in bedside chair. Answers all basic questions with clear vocal quality. Follows all basic commands. No visitors at bedside. Spoke with LINDA Leslie who cleared pt for treatment. Current Diet: Dietary Orders (From admission, onward) Start Ordered 11/15/24 1109 Adult diet Easy to Chew; Gluten Free Diet effective now Question Answer Comment Diet type Easy to Chew Other restriction(s): Gluten Free 11/15/24 1109 11/14/24 1452 Supplement:Dinner; Vanilla Magic Cup Until discontinued Question Answer Comment Frequency Dinner Select supplement: Vanilla Magic Cup 11/14/24 1451 Oxygen: Oxygen Therapy: Supplemental oxygen O2 Delivery Method: Nasal cannula O2 Flow Rate (L/min): 2 L/min That will make me gag Pain: Pt denies any current pain. PPE Worn: gloves Objective & Assessment Dysphagia Treatment # of Activities: 1 Dysphagia Activity 1: Assess tolerance of recommended diet with use of dentition. Pt with some baseline coughing and gagging. She indicated that she is very sensitive to tastes and does not like many things. Clarifying that she is GLUTEN free for long time. Pt promotes celiac however no documentation of this. Will ensure that we provided a Gluten free diet. Discussed with RD and . Pt was able to place her dentures after cleaning and use of fixodent. She completed trial of cookie and pudding. She required very small bites and was able to modify independently. Prolonged mastication however overtly good oral control without taste aversions. Oral clearing was functional with liquid chaser. Plan & Recommendations Plan: Assess tolerance of diet advancement. Develop further strategies Recommend Easy to chew solids and Thin liquids and meds as tolerated and the following precautions: - Upright positioning for all PO intake - Slow rate of intake - Small bites/sips - Alternate solid and liquids - place dentures for po intake D/C Recommendations: to be determined Education Education Given: swallowing strategies, diet recommendations Given To: patient Response: verbalizes understanding Goals Patient Stated Goal: To eat what I want. Encounter Problems Encounter Problems (Active) Swallowing Patient will participate in instrumental assessment of swallowing as appropriate (Completed) Start: 11/14/24 Expected End: 11/16/24 Resolved: 11/15/24 Patient will tolerate the least restrictive diet consistency to allow for safe consumption of daily meals (Progressing) Start: 11/14/24 Expected End: 11/28/24 Patient will demonstrate safe swallowing Intervention/techniques (Progressing) Start: 11/14/24 Expected End: 11/28/24 Therapy Time WASHHOUSE WORKER Individual Minutes Time In: 1036 Time Out: 1106 Minutes: 30 HONORIO Stephens [facility] Progress Note ----- ----- Attestation signed by Sharonda Solis OT at 11/15/2024 2:08 PM I certify that I was present during the entire session and guided the care given by the Student Occupational Therapist. Cosign: BEN Guerrero/Leah ----- OCCUPATIONAL THERAPY [facility] Initial Evaluation Name/MRN: Divya Joseph ([id number]) Evaluation Date: 11/15/2024 Date of : 1950 Admission Date: 11/13/2024 9:27 AM Age: 74 y.o. Room/Bed: 222-03/222-03 A Discharge Recommendation: Long Term Facility Assessment IMPRESSION: Pt is a 74 y/o F admitted to [facility] on 11/13/24 d/t AMS and was found to have a UTI. She arrived from [facility] where she lives, and uses wheelchair for mobility. She is currently on 2L O2. OT eval completed with pt participating in LB dressing with MIN A, STS from recliner MIN A and dynamic standing with MIN A. Pt is limited by weakness, low activity tolerance, and decreased ADL performance. Recommend pt return to SNF and receive OT services to help pt return to PLOF. Admitting Diagnosis: Transient alteration of awareness Performance Deficits /Impairments: Decreased Functional Mobility, Decreased ADL status, Decreased Strength, Decreased Safety Awareness, Decreased Endurance, and Decreased Balance Prognosis: Good Decision Making: Medium Complexity Subjective Pt agreeable to OT eval Pain: Pt denies any current pain. Past Medical History: Medical History[1] Past Surgical History: Surgical History[2] Admission Diagnosis: Patient Active Problem List Diagnosis Date Noted Transient alteration of awareness 11/13/2024 Medical Precautions: No active isolations Proper PPE donned/doffed in accordance with facility standards. Fall Risk: [place] Fall Risk Score: 75 (High Risk) Precautions/Restrictions: Lines/Drains/Airways: 2L O2 Fall Precautions Family/Caregiver Present: none Overall Cognitive Status: Exceptions - Following commands: follows one step commands with increased time and follows one step commands with repetition - Safety judgement: decreased awareness of need for safety - Initiation: requires cues for some - Sequencing: requires cues for some Overall Orientation Status: Oriented x4 Social/Functional History Patient admitted from SNF. Assistive Equipment: front wheeled walker and wheelchair - manual Prior Level of Function Prior Level of ADL Function: Required Assist Prior Level of Mobility: Required Assist; Device: Wheelchair - manual Prior Level of Transfers: Required Assist Objective ADLs LE Dressing: Min Assist Pt able to thread brief on feet but upon standing required assistance to pull up completely over bottom while maintaining standing balance. Anticipate MIN A for toileting for hygiene and LB clothing mgt. Pt could transfer to [facility]. Upper Extremity Assessment Strength: 3+/5 Bed Mobility Pt up in chair upon arrival Transfers/Mobility Sit to stand: Min Assist Stand to sit: Contact Guard Standing balance: Min Assist MIN A STS from recliner with mod cues for hand placement on arm rests to push up and to reach back when sitting with fair follow through. MIN A during standing balance d/t fatigue and weakness. Pt completing 5x STS from recliner in ~55s. Pt desating to ~85% but quickly recovering to 93% with education on pursed lip breathing techniques. Device(s) used: Front wheeled walker Vision: Not Assessed Hearing: normal AM-PAC AM-PAC Inpatient Daily Activity Raw Score: 19 ADL Inpatient CMS G-Code Modifier: CK Plan Pt would benefit from skilled acute OT services to address Balance Training, Self-Care/ADL Training, Functional Mobility Training, Endurance Training, and Safety Education and Training Frequency: 7 visits during current hospital admission or until additional recommendations are made Barriers: Impaired balance, Upper extremity weakness, Decreased endurance, and Limited safety awareness Safety/Education Safety Safety Devices in place: call light within reach, left in chair, gait belt, and nurse notified Restraints: N/A Education Education Given To: patient Education Provided: OT Role, Plan of Care, Transfer Training, Fall Prevention Education, Discharge Recommendations, Benefits of Increasing Activity, and Breathing Techniques Education Method: Verbal, Demonstration, and Teach Back Barriers to Learning: Cognition Education Outcome: Continued Education Needed Goals Patient Stated Goal: get better Encounter Problems Encounter Problems (Active) Balance Patient will maintain dynamic standing balance for 5 minutes with CGA in order to demonstrate decreased risk of falling. Start: 11/15/24 Expected End: 11/22/24 Dressing Upper Extremities P (more content not included)... Normal [facility] Progress Note [facility] Anticoagulatio n Management Service (VAN) Inpatient Warfarin Consult HPI: Divya Joseph is a 74 y.o. 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 Medical History[1] Patient is on warfarin for Afib and has a goal INR 2.0 - 3.0. Warfarin is currently managed by [facility]. Pt's home dose of warfarin is 2.5mg daily per [place] at the facility. Pt's last INR in the clinic was 2.6 on 10/29. S/sx of bleeding= hgb 8.5 , plt 133. Noted bruises/bleeds easily on physical inspection with small amount of epistaxis 11/14. Interacting medications= ASA 81 mg , pravastatin 80 mg (home med)., dexamethasone 6 mg injection every 6 hours (last dose to end 11/15/24 at 1330). Labs: Recent Labs 11/13/24 0951 11/14/24 0516 11/14/24199911/15/24418 HGB 11.2* 9.8* 8.6* 9.2* 8.5* HCT 34.2* 30.6* -- 28.7* PLT 184 160 -- 133* Recent Labs 11/15/24 0419 INR 3.3* Date INR Dose 11/15 3.3 1 mg 11/14 2.3 2.5mg 11/13 2.3 4mg Assessment/Plan: 1. INR is supratherapeutic today. Will give dose decrease of 1 mg today . 2. Monitor for s/s of bleeding and drug interactions. Will adjust dose accordingly. 3. Warfarin is managed by [facility] outpatient. VAN will manage inpatient and sign off at discharge. John Bailey PharmD VAN Consult Service is available daily [phone] via [employer] Secure Chat. [1] Past Medical History: Diagnosis Date Altered mental status, unspecified Ataxia Atherosclerotic heart disease Bradycardia, unspecified Cognitive communication deficit COPD (chronic obstructive pulmonary disease) ([facility]) i was told i had COPD, then I was told i wasn't, i don't know for sure Difficulty walking Dysphagia, oropharyngeal phase Dyspnea Essential (primary) hypertension Gastro-esophageal reflux disease without esophagitis Muscle weakness (generalized) Need for assistance with personal care Other chronic pain Pain in left shoulder Paroxysmal atrial fibrillation (HCC) Peripheral vascular disease, unspecified ([facility]) Presence of cardiac pacemaker Repeated falls Sick sinus syndrome (CMS/HCC) ([facility]) Unsteadiness on feet Weakness Normal [facility] [id number] 11-14-2024 [id number] Care Managment Initi al Assessment Date: 11/14/2024 Patient Name: Divya Joseph : 1950 Patient Information Source of Information: Patient Cognition/Language: WFL - Within Functional Limits Permission given to speak with patient clearance representative/caregiver as indicated: Yes Confirmation of Payer with patient/family: Yes Payer Name: [employer] MEDICARE/UHC [employer] MEDICARE : No Confirmation of Primary Care Physician: Confirmed PCP Name: Rosanne Waddell, DO Seen in last 2 years?: Yes Primary Caregiver: If assistance needed, confirmed caregiver ready, willing and able to care for patient at discharge: Confirmed with: Living Arrangements Current Residence: Number of Floors Number of Entry Steps: Bed/Bath Levels: Facility: Nursing Facility Skilled Facility Name: [facility] Plan to Return: Yes Lives with: Alone Support Systems: Spouse/significant other Activities of Daily Living Ambulation: Assistance (WHEELCHAIR BOUND) Bathing/Dressing: Assistance Elimination/Continence/To ileting: Assistance Feeding: Assistance Who Assists with Activities of Daily Living: Instrumental Activities of Daily Living Prescription Coverage: Pharmacy Used: Medication Management: Transportation/Shopping: Transportation Mode: Needs Assistance with Transportation at Discharge: Yes Meal Preparation: Assistance Provider Meal Prep Assistance Provider Name: FACILITY Laundry/Cleaning: Assistance Provider Laundry/Cleaning Assistance Provider Name: FACILITY Finances/Bill Paying: Assistance Provider Finances/Bill Payer Assistance Provider Name: SPOUSE Communication: Independent Types of Care Services/Equipment Utilized Care Services: Dialysis Type: Durable Medical Equipment: Wheelchair (standard or power) Patient's Goal/Discharge Plan Patient expects to be discharged to: RETURN TO [facility] Discharge Planning Actions: Continue to follow, Long Term Facility referral indicated Patient's Choice Rights and [employer] and Collaborative Relationships Disclosed as Indicated for Post-Acute Care: NA Interdisciplinary Team Engagement: Social Work Referral for: Additional Information: Spoke with patient and her at their bedside. Introduced self and role. Discussed discharge planning. Patient has health insurance and prescription coverage. Patient states live at [facility]. Plan is to return. Tasked WORKSITE WELLNESS PRACTITIONER to send referral [place] [facility]. Will await response. sustainable products marketing manager will continue to follow for any discharge planning needs. Normal [facility] BLOOD GAS, VENOUSon 11-15-19 25 AMOUNT OF OXYGEN 4L Normal [facility] Comment on above: Result Comment: MEERA Lewis COMMENTS: Assessment of oxygenation is best done with an arterial blood gas determination. Reference ranges for pO2, bicarbonate, and base excess are for mixed venous blood. Specimens drawn from a peripheral vein will often have higher values. Performed By: #### L AB79 ####Wood Experimental Mechanic: THERON EPRRY ([id number])[facility] ([facility])[address] Base excess Calc (BldV) [Moles/Vol] 1.5 mmol/L Normal -3.0-3.0 [facility] Comment on above: Performed By: #### L AB79 ####Wood Experimental Mechanic: THERON PERRY ([id number])[facility] ([facility]AB)[address] [place] [address] [place] CO2 [Moles/Vol] 26.3 mmol/L Normal 23.0-30.0 [facility] Comment on above: Performed By: #### L AB79 ####Wood Experimental Mechanic: THERON PERRY ([id number])[facility] ([facility])[address] HCO3 (Bld) [Moles/Vol] 25.2 mmol/L Normal 21.0-30.0 [facility] Comment on above: Performed By: #### L AB79 ####Wood Experimental Mechanic: THERON PERRY ([id number])[facility] ([facility])[address] [place] [address] [place] Hemoglobin (Bld) [Mass/Vol] 9.2 g/dL Low Screen only [facility] Comment on above: Performed By: #### L AB79 ####Wood Experimental Mechanic: THERON PERRY ([id number])[facility] ([facility])[address] OXYGEN (MM HG) IN VENOUS BLOOD 63.0 mm Hg Normal [facility] Comment on above: Performed By: #### L AB79 ####Wood Experimental Mechanic: THERON LEWISCER ([id number])[facility] [place] ([facility])[address] OXYGEN SATURATION (%) IN VENOUS BLOOD 92.5 % Normal [facility] Comment on above: Performed By: #### L AB79 ####Wood Experimental Mechanic: THERON ANTONIOJT ([id number])[facility] ([facility])[address] PCO2, [place] 35.9 mm Hg Normal 35.0-53.0 [facility] Comment on above: Performed By: #### L AB79 ####Wood Experimental Mechanic: THERON MONREALLUCRECIA ([id number])[facility] ([facility])[address] PH VENOUS 7.464 High 7.320-7.420 [facility] Comment on above: Performed By: #### L AB79 ####Wood Experimental Mechanic: THERON MONREALLUCRECIA ([id number])[facility] ([facility])[address] SOURCE OF OXYGEN Nasal Cannula (LPM) Normal [facility] Comment on above: Performed By: #### L AB79 ####Wood Experimental Mechanic: THERON MONREALLUCRECIA ([id number])[facility] ([facility])[address] [place] [address] Blood pathogens panel NUNO+no n-probe (Pos bld culture)Ordered By: Socorro De Jesus on 11-14-2024 E. coli DNA NUNO+non-probe Ql (Pos bld culture) Detected Abnormal Not Detected [facility] Interpretation and review of laboratory results Abnormal [facility] CBC W Auto Differential pane l (Bld)Ordered By: Alice Fletcher on 11-14-2024 Erythrocyte distribution width (RBC) [Ratio] 20.6 % High 11.5 - 15.0 % [facility] Hematocrit (Bld) [Volume fraction] 30.6 % Low 35.0 - 47.0 % [facility] Hemoglobin (Bld) [Mass/Vol] 8.6 g/dL Low 11.7 - 16.0 g/dL [facility] Interpretation and review of laboratory results Abnormal [facility] IPF 10 [facility] MCH (RBC) [Entitic mass] 24.2 pg Low 26.0 - 34.0 pg [facility] MCHC (RBC) [Mass/Vol] 28.1 % Low 30.5 - 36.0 % [facility] MCV (RBC) [Entitic vol] 86 fL 77.0 - 99.0 fL [facility] Platelet mean volume (Bld) [Entitic vol] [facility] Platelets (Bld) [#/Vol] 160 10*3/uL 140 - 440 10*3/uL [facility] RBC (Bld) [#/Vol] 3.56 10*6/uL Low 3.80 - 5.2 0 10*6/uL [facility] WBC (Bld) [#/Vol] 18.2 10*3/uL High 3.6 - 10.7 10*3/uL [facility] CBC WITH AUTO DIFFERENTIALon 11-14-2024 Erythrocyte distribution width (RBC) [Ratio] 20.6 % High 11.5-15.0 [facility] Comment on above: Performed By: #### Leah [id number], [id number] ####Wood Experimental Mechanic: THERON PERRY ([id number])[facility] ([facility])[address] [place] [address] Hematocrit (Bld) [Volume fraction] 30.6 % Low 35.0-47.0 [facility] Comment on above: Performed By: #### L [id number], [id number] ####Wood Experimental Mechanic: THERON PERRY ([id number])[facility] ([facility] Hemoglobin (Bld) [Mass/Vol] 8.6 g/dL Low 11.7-16.0 [facility] Comment on above: Performed By: #### L [id number], [id number] ####Wood Experimental Mechanic: THERON PERRY ([id number])[facility] ([facility])[address] [place] [address] [place] IPF 10 Normal [facility] Comment on above: Performed By: #### L [id number], [id number] ####Wood Experimental Mechanic: THERON PERRY ([id number])[facility] [place] ([facility])[address] MCH (RBC) [Entitic mass] 24.2 pg Low 26.0-34.0 [facility] Comment on above: Performed By: #### L [id number], [id number] ####Wood Experimental Mechanic: THERON PERRY ([id number])[facility] [place] ([facility])[address] MCHC 28.1 % Low 30.5-36.0 [facility] Comment on above: Performed By: #### L [id number], [id number] ####Wood Experimental Mechanic: THERON PERRY ([id number])[facility] ([facility])[address] MCV (RBC) [Entitic vol] 86.0 fL Normal 77.0-99.0 [facility] Comment on above: Performed By: #### L [id number], [id number] ####Wood Experimental Mechanic: THERON PERRY ([id number])[facility] ([facility])[address] MPV Normal [facility] Comment on above: Result Comment: Unab le to obtain Performed By: #### L IZ7905, [id number] ####Wood Experimental Mechanic: THERON PERRY ([id number])[facility] [place] ([facility])[address] [place] [address] [place] Platelets (Bld) [#/Vol] 160 10*3/uL Normal 140-440 [facility] Comment on above: Performed By: #### L [id number], [id number] ####Wood Experimental Mechanic: THERON PERRY ([id number])[facility] ([facility])[address] RBC (Bld) [#/Vol] 3.56 10*6/uL Low 3.80-5.20 [facility] Comment on above: Performed By: #### L [id number], [id number] ####Wood Experimental Mechanic: THERON PERRY ([id number])[facility] ([facility])[address] WBC (Bld) [#/Vol] 18.2 10*3/uL High 3.6-10.7 [facility] Comment on above: Performed By: #### L [id number], [id number] ####Wood Experimental Mechanic: THERON PERRY ([id number])[facility] ([facility])[address] COMPREHENSIVE METABOLIC PANE Blaise 11-14-2024 Albumin [Mass/Vol] 2.5 g/dL Low 3.4-4.8 [facility] Comment on above: Performed By: #### L AB67, LAB17, HKF599, CVE022, AWN127, KSR819 ####Wood Experimental Mechanic: THERON PERRY ([id number])[facility] [place] ([facility])[address] ALP [Catalytic activity/Vol] 54 U/L Normal 40-150 [facility] Comment on above: Performed By: #### L AB67, LAB17, HSG100, TON592, HHO962, AJD884 ####Wood Experimental Mechanic: THERON PERRY ([id number])[facility] ([facility])[address] ALT [Catalytic activity/Vol] 7 U/L Normal <30 [facility] Comment on above: Performed By: #### L AB67, LAB17, ULT907, PCV998, EBP551, RQE094 ####Wood Experimental Mechanic: THERON PERRY ([id number])[facility] ([facility])[address] Anion gap [Moles/Vol] 6 mmol/L Normal 3-13 [facility] Comment on above: Performed By: #### L AB67, LAB17, NBU360, NLT610, TYD942, MPG189 ####Wood Experimental Mechanic: THERON PERRY ([id number])[facility] ([facility])[address] AST [Catalytic activity/Vol] 32 U/L Normal <34 [facility] Comment on above: Performed By: #### L AB67, LAB17, QHK255, IKQ377, EKK914, WGA764 ####Wood Experimental Mechanic: THERON PERRY ([id number])[facility] ([facility])[address] Bilirubin [Mass/Vol] 0.6 mg/dL Normal <1.2 [facility] Comment on above: Performed By: #### L AB67, LAB17, IYS037, BEP037, RLJ675, MCA651 ####Wood Experimental Mechanic: THERON PERRY ([id number])[facility] ([facility])[address] Calcium [Mass/Vol] 8.7 mg/dL Low 8.8-10.0 [facility] Comment on above: Performed By: #### L AB67, LAB17, RJQ015, DYD088, ZTA990, FUJ334 ####Wood Experimental Mechanic: THERON PERRY ([id number])[facility] ([facility])[address] Chloride [Moles/Vol] 108 mmol/L High 98-107 [facility] Comment on above: Performed By: #### L AB67, LAB17, YXE774, GJX522, QPM207, NEP292 ####Wood Experimental Mechanic: THERON PERRY ([id number])[facility] ([facility])[address] CO2 [Moles/Vol] 27 mmol/L Normal 23-31 [facility] Comment on above: Performed By: #### L AB67, LAB17, HWD545, JQI295, KCY954, LUT691 ####Wood Experimental Mechanic: THERON PERRY ([id number])[facility] [place] ([facility])[address] Creatinine [Mass/Vol] 0.72 mg/dL Normal 0.57-1.11 [facility] Comment on above: Performed By: #### L AB67, LAB17, XNG367, SYG277, YNV886, UVT656 ####Wood Experimental Mechanic: THERON PERRY ([id number])[facility] ([facility])[address] GLOMERULAR FILTRATION RATE ML/MIN/1.73 SQ M.PREDICTED 87.9 mL/min/1.73m*2 Normal >60.0 [facility] Comment on above: Result Comment: Calc ulation based on the Chronic Kidney Disease Epidemiology Collaboration (CKD-EPI) equation refit without adjustment for race Performed By: #### L AB67, LAB17, DKQ991, EXC350, GGN303, SCF938 ####Wood Experimental Mechanic: THERON PERRY ([id number])[facility] ([facility])[address] Glucose [Mass/Vol] 108 mg/dL Normal 82-115 [facility] Comment on above: Performed By: #### L AB67, LAB17, MXT290, XTV885, SPX117, QWB912 ####Wood Experimental Mechanic: THERON PERRY ([id number])[facility] ([facility])[address] Potassium [Moles/Vol] 3.7 mmol/L Normal 3.5-5.1 [facility] Comment on above: Result Comment: [facility] potassium values may be up to 0.5 mmol/L lower than serum values. Performed By: #### L AB67, LAB17, XTB038, LVA802, FQJ231, LKF365 ####Wood Experimental Mechanic: THERON PERRY ([id number])[facility] ([facility])[address] Protein [Mass/Vol] 5.3 g/dL Low 6.4-8.3 [facility] Comment on above: Performed By: #### L AB67, LAB17, ZYU211, QMZ956, WIM264, EGW315 ####Wood Experimental Mechanic: THERON PERRY ([id number])[facility] [place] ([facility])[address] Sodium [Moles/Vol] 141 mmol/L Normal 136-145 [facility] Comment on above: Performed By: #### L AB67, LAB17, JJJ349, USR825, JLD091, IBP724 ####Wood Experimental Mechanic: THERON PERRY ([id number])[facility] [place] ([facility])[address] Urea nitrogen [Mass/Vol] 13 mg/dL Normal 9-23 [facility] Comment on above: Performed By: #### L [id number], [id number], [id number], [id number], [id number], [id number] ####Wood Experimental Mechanic: THERON PERRY ([id number])[facility] ([facility])[address] [place] [address] Cobalamin (Vitamin B12) [Mas s/Vol]on 11-14-2024 Interpretation and review of laboratory results Normal [facility] Comprehensive metabolic 1998 panelon 11-14-2024 Albumin [Mass/Vol] 2.5 g/dL Low 3.4 - 4.8 g/dL [facility] ALP [Catalytic activity/Vol] 54 U/L 40 - 150 U/L [facility] ALT [Catalytic activity/Vol] 7 U/L NINF - 30 U/L [facility] Anion gap [Moles/Vol] 6 mmol/L 3 - 13 mmol/L [facility] AST [Catalytic activity/Vol] 32 U/L NINF - 34 U/L [facility] Bilirubin [Mass/Vol] 0.6 mg/dL NINF - 1.2 mg/dL [facility] Calcium [Mass/Vol] 8.7 mg/dL Low 8.8 - 10. 0 mg/dL [facility] Chloride [Moles/Vol] 108 mmol/L High 98 - 10 7 mmol/L [facility] CO2 [Moles/Vol] 27 mmol/L 23 - 31 mmol/L [facility] Creatinine [Mass/Vol] 0.72 mg/dL 0.57 - 1.11 mg/dL [facility] GFR/1.73 sq M.predicted (S/P/Bld) [Vol rate/Area] 87.9 mL/min - PINF [facility] Glucose [Mass/Vol] 108 mg/dL 82 - 115 mg/dL [facility] Interpretation and review of laboratory results Abnormal [facility] Potassium [Moles/Vol] 3.7 mmol/L 3.5 - 5.1 mmol/L [facility] Protein [Mass/Vol] 5.3 g/dL Low 6.4 - 8.3 g/dL [facility] Sodium [Moles/Vol] 141 mmol/L 136 - 145 mmol/L [facility] Urea nitrogen [Mass/Vol] 13 mg/dL 9 - 23 mg/dL [facility] Consulton 11-14-2024 Consult Consult acknowledge and imaging reviewed. 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 No OP follow up needed. Agree with anticoagulation. We can see PRN Normal [facility] Consult [facility] - Infectious Diseases Attending Consult Note Reason for Consult: Septic shock, E coli bacteremia, E coli UTI with hydroureter. History of Present Illness: 74 y/o female was admitted on 11/13/24 from SNF with altered mental status, fever, abdominal pain, difficulty urination; on presentation in ED, her temp was 100.3 F, then, spiked to 100.9 F, was tachypneic (R 24); labs showed leukocytosis 12.7 k, pyuria with >100 wbc, lactic acidosis 2.9 that increased to 3.4, ceftriaxone was given; was initially admitted to [facility] for infectious work up and empiric antibiotics, she became hypotensive requiring vasopressor support and was transferred to ICU. She was seen, found her alert, laying upright on bed; c/o SOB, wheeze, suprapubic pain, she appeared distressed and ill. She has h/o CAD, CABG, HTN, A-fib, SSS requiring PPM, PVD, COPD, Anemia, Dysphagia, Debility. She was examined; notes, labs, imaging were reviewed; treatment plan was discussed; clinical informations were documented in electronic record. Past Medical History: Medical History[1] Past Surgical History: Surgical History[2] Current Medications: Current Medications[3] Allergies: Allergies[4] Social History: Social History Socioeconomic History Marital status: Spouse name: Not on file Number of children: Not on file Years of education: Not on file Highest education level: Not on file Occupational History Not on file Tobacco Use Smoking status: Former Types: Cigarettes Smokeless tobacco: Never Substance and Sexual Activity Alcohol use: Not Currently Drug use: Never Sexual activity: Not on file Other Topics Concern Not on file Social History Narrative Not on file Social Drivers of Health Financial Resource Strain: Not on file Food Insecurity: Not on file Transportation Needs: Not on file Physical Activity: Not on file Stress: Not on file Social Connections: Not on file Intimate Partner Violence: Not on file Housing Stability: Not on file Family History: Family History[5] Review of Systems: Review of Systems Constitutional: Positive for activity change, appetite change, chills and fatigue. Negative for diaphoresis, fever and unexpected weight change. HENT: Positive for rhinorrhea. Negative for congestion and sore throat. Eyes: Negative for visual disturbance. Respiratory: Positive for shortness of breath. Negative for cough. Cardiovascular: Positive for chest pain (right lower chest pain yesterday radiating to back). Negative for palpitations. Gastrointestinal: Positive for abdominal pain (lower abd, suprapubic area), nausea and vomiting. Negative for blood in stool, constipation and diarrhea. Genitourinary: Positive for urgency. Negative for dysuria, flank pain, frequency and hematuria. Musculoskeletal: Negative for back pain and neck pain. Skin: Negative for rash and wound. Allergic/Immunologic: Negative for environmental allergies and food allergies. Neurological: Negative for dizziness, syncope, weakness and headaches. Hematological: Bruises/bleeds easily. Psychiatric/Behavioral: Negative for dysphoric mood. The patient is not nervous/anxious. All other systems reviewed and negative. Vitals: Patient Vitals for the past 24 hrs: BP Temp Temp src Pulse Resp SpO2 Height Weight 11/14/24 1102 146/81 -- -- 78 19 100 % -- -- 11/14/24 1002 126/71 -- -- 92 18 98 % -- -- 11/14/24 0933 140/61 -- -- 85 (!) 28 97 % -- -- 11/14/24 0903 -- -- -- 73 24 100 % -- -- 11/14/24 0902 154/68 -- -- 74 20 -- -- -- 11/14/24 0833 144/57 -- -- 76 21 100 % -- -- 11/14/24 0802 128/69 -- -- 67 23 100 % -- -- 11/14/24 0740 -- -- -- -- -- -- 1.6 m (5' 3) 74.8 kg (165 lb) 11/14/24 0703 137/55 -- -- 60 (!) 26 100 % -- -- 11/14/24 0618 154/62 -- -- 60 21 100 % -- -- 11/14/24 0603 122/50 -- -- 60 21 98 % -- -- 11/14/24 0519 112/61 -- -- 93 24 100 % -- -- 11/14/24 0503 122/51 -- -- 60 25 100 % -- -- 11/14/24 0402 (!) 141/45 36.7 ?C (98.1 ?F) Oral 64 21 100 % -- -- 11/14/24 0302 (!) 132/48 -- -- 61 16 100 % -- -- 11/14/24 0202 (!) 141/45 -- -- 62 23 99 % -- -- 11/14/24 0103 (!) 118/42 -- -- 65 22 99 % -- -- 11/14/24 0030 94/62 -- -- 67 24 100 % -- -- 11/14/24 0005 (!) 114/46 -- -- 69 21 100 % -- -- 11/13/24 2350 114/100 36.7 ?C (98.1 ?F) Oral 64 22 100 % -- -- 11/13/24 2309 (!) 114/47 -- -- 63 18 100 % -- -- 11/13/24 2203 (!) 119/49 -- -- 66 19 100 % -- -- 11/13/249 142/50 -- -- 68 18 100 % -- -- 11/13/242123 (!) 81/42 -- -- 75 18 99 % -- -- 11/13/242101 99/54 -- -- 71 20 100 % -- -- 11/13/242032 111/50 -- -- 82 21 100 % -- -- 11/13/242020 (!) 104/47 -- -- 76 19 98 % -- -- 11/13/242002 96/50 -- -- 71 20 100 % -- -- 11/13/241946 -- -- -- 66 19 100 % -- -- 11/13/241923 100/60 37.2 ?C (98.9 ?F) Oral 70 21 97 % 1.6 m (5' 3) 75.2 kg (165 lb 12.6 oz) 11/13/241902 (!) 82/52 37.6 ?C (99.6 ?F) Oral 75 24 96 % -- -- 11/13/241816 (!) 103/ (more content not included)... Normal [facility] Consult Palliative Care Init ial Consult Chief Complaint: Divya Joseph is a 74 y.o. female with chief complaint of fever, abdominal pain. Palliative Care is actively following. 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 Coli - Urine culture pending - UA + moderate bacteria, WBC >100, leukocytes 500 -now off levophed gtt Chronic Pain -PRN tylenol - Robaxin PRN for muscle spasms Acute encephalopathy, improved - Geriatrics consulted -CT head--> No CT evidence of an acute intracranial abnormality. -A&Ox3 during exam Debility - Resides at [facility] -PT/OT as able -typically uses wheelchair - had a fall about 1 week ago CAD s/p CABG HTN Afib Elevated Troponin - Cardiology consulted -ECHO--> Normal left ventricular systolic function. 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 following -rec NPO until [facility] Palliative Care Encounter -Code Status: Full Code - will continue to evaluate test results related to Dysphagia and bacteremia, acute encephalopathy, medication effectiveness for Dyspnea, Pain, and Fatigue, response to treatment of Dysphagia and bacteremia, acute encephalopathy PC Time Stamp: Total of 75 minutes spent on this encounter including Chart review, Patient visit and exam, Documentation in EHR, Care coordination, Communicating with primary attending or other consultants, Counseling and educating patient/family/caregiver, and Independently interpreting results and communicating results to patient/family/caregiver. Discharge planning: Not ready for discharge due to ongoing medical work-up/critical illness Patient meets criteria for general inpatient hospice care: No Palliative Care IDT members involved: None Discussed the plan of care with the other interdisciplinary team (IDT) members of the Palliative Care and Hospice teams and Patient, Primary Attending, and Floor Nurse. Subjective: Subjective/Events Divya Joseph is a 74 y.o. female with PMH CAD s/p CABG, HTN, A-fib, COPD, anemia, PVD, dysphagia, debility. She presented to ED from SNF with altered mentation. Pt also had been having fevers and reported abdominal pain as well as R rib pain, increased urgency & difficulty urinating. Pt also experienced LE swelling, chills, fatigue, shortness of breath. CTA chest showing RUL segmental PE. Troponin elevated. Initially admitted to F. However, required transfer to ICU due to hypotension, requiring pressors. Palliative care consulted for goals of care. Upon assessment today, patient is lying in bed awake. She is A&Ox3. On 3L NC. Has some shortness of breath with conversation. Reports pain in BLE, rates 10/10. Denies nausea or vomiting. Patient states last BM was Tuesday. However, patient states that this is normal for her. Denies constipation or diarrhea. GOC discussions: Met with patient at bedside. Introduced self and role and provided medical updates. Patient shares her goal is to get better and return back to nursing facility. Has lived at nursing facility for almost 1 year and enjoys it there. She states that her brother is HCPOA and sister in law is 1st alternate HCPOA. Discussed CODE STATUS. Patient states that she would be okay with 1 round of CPR to give a shot but would not want prolonged CPR. Pt also states she would not want intubation. Share that when a person is having CPR, they typically require intubation for airway protection. She says she will think about CODE STATUS further but wishing to remain a full code at this time. All questions answered. Pain Assessment Location: BLE Description: aching Frequency:Daily Duration: year(s) Alleviating Factors: relaxation and pain medication Exacerbating Factors: unable to associate with any factor Effect:Change in Function Palliative Care Assessments: Goals of care: Continue Current Management, Live Longer, extend life as much as possible, Improve or Maintain Function/Quality of Life, and return to nursing facility Advanced Directives: No Known Advance Directive Functional Assessment: PPS 50% mainly sit/lie; can't do any work/extensive disease; considerable ass (more content not included)... Normal [facility] Consult [facility] Cardiology /Electrophysiology Consult Note Reason for Consult/Chief Complaint: Abnormal troponin Referring provider: Trace Eric statistical modeler: Beto History of Present Illness: Divya Joseph is a 74 y.o. female with known coronary artery disease remote bypass surgery, sick sinus syndrome, s/p placement of a permanent pacemaker, hypertension, paroxysmal atrial fibrillation COPD anemia LAD who lives in a SNF. Patient was admitted to [facility] with altered mental status. Patient states she does not know why she is here, she woke up in the hospital. She denies chest pain. She had elevated temperatures with a fever as high as 38.3 ?C. She was found to have urinary tract infection. CTA of her chest is suggestive of possible subsegmental pulmonary emboli. Cardiology was consulted due to elevation in her troponin up to 152 and elevated BNP of 8878. Assessment/Plan HF NYHA Class [] I [] II [] III [] IV []Unable to assess Abnormal troponin: Likely type II NSTEMI in the setting of sepsis and urinary tract infection. Patient's white count is increasing to 18.2. She has no chest pain. EKG showed no acute changes. An echocardiogram has been ordered and is pending. Elevated BNP: The patient has some dyspnea. CTA is suggestive of subsegmental pulmonary emboli. An echocardiogram is pending. Clinically my suspicion that this is heart failure is fairly low. I we will hold off initiating diuretic therapy. Sepsis: Patient had elevated lactate up to 6.1, meanwhile normalized. She is on antibiotic therapy. Atrial fibrillation: Currently in sinus rhythm. She is anticoagulated with warfarin. Admission INR was 2.3. Close follow-up is recommended due to patient's acute illness and use of antibiotics. Pulmonary embolism: In light of therapeutic anticoagulation the suspicion that this is a false positive test is high. Cardiology will continue to follow along. Medications: Scheduled Meds[1] Infusion Medications: Continuous Meds[2] Physical Examination: Vitals: 11/14/24 0618 11/14/24 0703 11/14/24 0740 11/14/24 0802 BP: 154/62 137/55 128/69 BP Location: Patient Position: Pulse: 60 60 67 Resp: 21 (!) 26 23 Temp: TempSrc: SpO2: 100% 100% 100% Weight: 165 lb (74.8 kg) Height: 5' 3 (1.6 m) Intake/Output Summary (Last 24 hours) at 11/14/2024 0859 Last data filed at 11/14/2024 0523 Gross per 24 hour Intake 3961 ml Output 650 ml Net 3311 ml Wt Readings from Last 3 Encounters: 11/14/24 165 lb (74.8 kg) Physical Exam Constitutional: Mild respiratory distress. Well nourished. Well hydrated Psychiatric: A &O x 3. Medical insight fair NMT: Oral mucosa is pink and moist Neck: No JVD. Respiratory: Lungs are clear to percussion auscultation Cardiac exam: Rhythm: Regular; Normal S1 and S2 Murmur: No Other: No rub; no gallop Vasc: Peripheral pulses normal Abdomen: Deferred Extremities: No LE edema Skin: Warm to touch and well perfused Laboratory Tests: TROPONIN I, CONVENTIONAL SENSITIVITY No results found for: CKTOTAL, CKMB, CKMBINDEX, TROPONINI TROPONIN I, HIGH SENSITIVITY Troponin HS Serial Baseline Date Value Ref Range Status 11/13/2024 78 (H) <=14 ng/L Final Comment: In individuals presenting with symptoms > 2h, a baseline troponin <= 5 ng/L suggests acute cardiac injury is unlikely and further serial testing is generally not indicated. 10/28/2024 10 <=14 ng/L Final Comment: In individuals presenting with symptoms > 2h, a baseline troponin <= 5 ng/L suggests acute cardiac injury is unlikely and further serial testing is generally not indicated. 2h Troponin HS (Serial 2nd Troponin) Date Value Ref Range Status 11/13/2024 90 (H) <=14 ng/L Final Comment: Rising or falling troponin delta between 2 - 15 ng/L as compared to baseline value requires a 3rd serial troponin 10/28/2024 12 <=14 ng/L Final Comment: Rising or falling troponin delta below 2 ng/L as compared to baseline value suggests that acute cardiac injury is unlikely. No results found for: TROPDELTBASE 4h Troponin HS (Serial 3rd Troponin) Date Value Ref Range Status 11/13/2024 152 (H) <=14 ng/L Final Comment: 4h troponin (3rd troponin) samples collected between 1h 40 min and 2h and 20 min of the 2h troponin collection time can be utilized to interpret delta troponins as per [facility] algorithms. Samples collected outside this timeframe need to be interpreted clinically. Rising or falling troponin delta greater than 15 ng/L as compared to 2h troponin value is significant for acute cardiac injury. No results found for: TROPDELTSEC Recent Labs 11/13/2495011/13/24192511/14/24 0516 NA 142 142 141 K 3.1* 3.1* 3.7 CL 105 109* 108* CO2 27 21* 27 BUN 9 11 13 CREATININE 0.85 0.79 0.72 EGFR 72.0 78.6 87.9 Recent Labs 11/13/2451 11/14/24 0516 WBC 12.7* 18.2* HGB 11.2* 9 (more content not included)... Normal [facility] Consult [facility] Geriatric Medicine Inpatient Consult Service Admission Date: 11/13/2024 Admission Status: INPATIENT Chief Complaint: Chief Complaint Patient presents with Altered Mental Status From [facility] residential. With AMS. Pt c/o of not feeling well. Pt with abd pain. Axo x 3 pt with temp of 100.3 Reason for Appointment Geriatrics consulted for impaired cognition Assessment & Plan Principal Problem: Transient alteration of awareness Acute Metabolic Encephalopathy --appears resolved --Etiology likely acute illness (sepsis, respiratory failure) --Encourage PO intake, time up in chair, family visits, and sleep hygiene --If agitated, assess for and consider treating for pain --QTc= 473 ms --No antipsychotic unless patient is danger to self/others/treatment --Start PRN melatonin at HS --Monitor for constipation/urinary retention - last BM 11/10 per patient --Possible medication contributions: none -Received Benadryl this morning for itching. Recommend trying to avoid if possible due to risk for confusion, lethargy. --Brother at bedside reports no significant baseline memory concerns --check B12 and TSH Debility --contributing factors include COPD, chronic pain, medications --lives at [facility]. Propels self in w/c at baseline. --History of falls hitting head last week. CT head no acute abnormality. --PT and OT when able --Anticipate return to facility at discharge --Recently started on Methocarbamol at her facility for back pain. Monitor for side effects. Consider low dose Tizanidine as an alternative. Dysphagia --ST following - recommend strict NPO until MBSS completed IBS --takes Dicyclomine 20mg TID at facility --Recommend decreasing/stopping due to risk of anticholinergic side effects. Not currently ordered. Chronic constipation --patient reports normal BM pattern every 10 days. --Continue Miralax as needed Neuropathy --takes Gabapentin 200mg TID at facility --Recommend resuming when appropriate to avoid withdrawal. Can restart at 75% of home dose to prevent withdrawal if dose reduction is desired. OAB --takes Oxybutynin at facility. --Recommend alternative with less anticholinergic side effects. --currently on Trospium I spent total time of 70 minutes face to face with the patient and/or family discussing the diagnosis and importance of compliance with the treatment plan as well as documenting on the day of the visit. In addition, that total time includes the following: -Reviewing previous notes, -Reviewing labs, -Obtaining and/or reviewing separately obtained history, -Ordering prescription medications, tests and procedures, -Communicating results to the patient/family/caregiver, -Counseling/educating the patient/family/caregiver, -Documenting clinical information in the patients electronic record, and -Performing a medically appropriate exam and/or evaluation Subjective: HPI 74 y.o. year-old female with PMH of COPD, CAD s/p CABG, SSS s/p pacemaker, Dysphagia, HTN, GERD, Chronic pain, atrial fibrillation, repeated falls, PVD, anxiety, depression presented to the hospital from [facility] on 11/13/24 with complaints of mental status change and fever. Admitted with sepsis with acute hypoxic respiratory failure, possible UTI. CT chest showed possible right upper lobe PE. Exam limited by motion artifact. Found to have E.Coli bacteremia. Pulmonology, ID, Palliative, Cardiology consulted. Cardiology - likely type II NSTEMI in setting of sepsis and UTI. ECHO pending. Received Benadryl 25mg today 083, Zyrtec 5mg 0833, Morphine 4mg yesterday. Nursing Delirium Screen (Nu-Desc): Nursing Delirium Symptom Checklist Total Score: 0 Conversation with patient: Patient reports she came to the hospital due to not feeling well and being fatigued. She lives at [facility] and has been there about a year. She has been becoming increasingly weaker. She propels herself in wheelchair and is interested in getting an electronic scooter. Sleeps well normally. Mood generally good, can get frustrated at times with the facility. Conversation with caregiver: Brother Rey at bedside. Memory is good at baseline. No concerns. Feels she is doing well and is more engaged at the facility. She gets along with other residents and staff. She does have an issue getting the food that she prefers/tolerates. Advance Care Planning Code Status: Full Code Allergies[1] Current Medications[2] Medical History[3] Surgical History[4] Social History Tobacco Use Smoking status: Former Types: Cigarettes Smokeless tobacco: Never Substance Use Topics Alcohol use: Not Currently Social History Social History Narrative Not on file Family History Family History[5] No family status information on file. Review of Systems Constitutional: Positive for fatigue. Negative for fever. Respiratory: Posi (more content not included)... Normal [facility] LACTIC ACID WITH REFLEXon Lactate [Moles/Vol] 1.4 mmol/L Normal 0.5-2.2 [facility] Comment on above: Performed By: #### L [id number] ####Wood Experimental Mechanic: THERON PERRY ([id number])[facility] ([facility])[address] Lactate [Moles/Vol] 2.9 mmol/L High 0.5-2.2 [facility] Comment on above: Performed By: #### L [id number] ####Wood Experimental Mechanic: THERON PERRY ([id number])[facility] (SB[facility])[address] LEGIONELLA AND STREPTOCOCCUS URINE ANTIGENon 11-14-2024 LEGIONELLA AND STREPTOCOCCUS URINE ANTIGEN LEGIONELLA PNEUMOPHILA URINE ANTIGEN Reference Not Detected Not Detected STREPTOCOCCUS PNEUMONIAE URINE ANTIGEN Reference Not Detected Not Detected ORDER COMMENTS: Methodology: Lateral flow enzyme immunoassay This assay is approved for detection of antigens to Streptococcus pneumoniae and Legionella pneumophila serogroup 1; however, other L. pneumophila serogroups may also be detected. Normal [facility] Comment on above: Performed By: #### L [id number] ####Wood Experimental Mechanic: MARIAMA CAGLE ([id number])[facility] (SACLAB[address] Laboratory - Chemistry and C hemistry - challengeOrdered By: Krishan Ramirez on 11-14-2024 Base excess Calc (BldV) [Moles/Vol] 1.5 mmol/L -3.0 - 3.0 mmol/L [facility] CO2 (BldV) [Partial pressure] 35.9 mm[Hg] [facility] CO2 [Moles/Vol] 26.3 mmol/L 23.0 - 30.0 mmol/L [facility] HCO3 (Bld) [Moles/Vol] 25.2 mmol/L 21.0 - 30.0 mmol/L [facility] Oxygen (BldV) [Partial pressure] 63 mm[Hg] mm Hg [facility] pH (BldV) 7.464 [pH] High 7.320 - 7.420 [facility] Laboratory - Chemistry and C hemistry - challengeon 11-14-2024 Cobalamin (Vitamin B12) [Mass/Vol] 338 pg/mL 213 - 816 pg/mL [facility] TSH Qn 0.69 m[IU]/L [facility] Lactate [Moles/Vol] 1.4 mmol/L 0.5 - 2. 2 mmol/L [facility] Magnesium [Mass/Vol] 1.7 mg/dL 1.6 - 2 .6 mg/dL [facility] Lactate [Moles/Vol] 2.9 mmol/L High 0.5 - 2. 2 mmol/L [facility] Laboratory - Coagulationon 0 11-14-2024 PT Coag (Bld) [Time] 23.5 s High 9.0 - 12.0 s [facility] - Hematology and Cell countsOrdered By: Krishan Ramirez on 11-14-2024 Hemoglobin (Bld) [Mass/Vol] 9.2 g/dL Low 12.0 - 16.0 g/dl [facility] - Hematology and Cell countson 11-14-2024 Anisocytosis Ql (Bld) Slight Abnormal (none) [facility] Band form neutrophils (Bld) [#/Vol] 1.1 10*3/uL High NINF - 0.0 10*3/uL [facility] Band form neutrophils/100 WBC (Bld) 6 % High NINF - 0 % [facility] Giant platelets LM Ql (Bld) Slight Abnormal (none) [facility] Hypochromia Ql (Bld) Slight Abnormal (none) [facility] Lymphocytes (Bld) [#/Vol] 2.2 10*3/uL 1.0 - 4.3 10*3/uL [facility] Lymphocytes/100 WBC (Bld) 12 % Low 15 - 45 % [facility] Monocytes (Bld) [#/Vol] 0.5 10*3/uL 0.0 - 0.9 10*3/uL [facility] Monocytes/100 WBC (Bld) 3 % Low 5 - 13 % [facility] Neutrophils (Bld) [#/Vol] 15.5 10*3/uL High 1.8 - 7.5 10*3/uL [facility] Poikilocytosis LM Ql (Bld) Slight Abnormal (none) [facility] RBC morphology finding Nom (Bld) abnormal [facility] Segmented neutrophils/100 WBC (Bld) 79 % 38 - 82 % [facility] Stomatocytes LM Ql (Bld) Slight Abnormal (none) [facility] MAGNESIUMon 11-14-2024 Magnesium [Mass/Vol] 1.7 mg/dL Normal 1.6-2.6 [facility] Comment on above: Result Comment: MEERA Lewis COMMENTS: Higher values can be expected in females during menses. Performed By: #### L AB67, LAB17, [id number], [id number], FED862, [id number] ####Wood Experimental Mechanic: THERON PERRY ([id number])[facility] ([facility])[address] MANUAL DIFFERENTIAL (CELLAVI JAZ)on 11-14-2024 ANISOCYTOSIS PRESENCE IN BLOOD BY LIGHT MICROSCOPY Slight Abnormal (none) [facility] Comment on above: Performed By: #### L [id number], [id number] ####Wood Experimental Mechanic: THERON PERRY ([id number])[facility] ([facility])[address] BAND NEUTROPHILS TOTAL PER COUNTED LEUKOCYTES BY MANUAL COUNT 6 Normal [facility] Comment on above: Performed By: #### L [id number], [id number] ####Wood Experimental Mechanic: THERON PERRY ([id number])[facility] ([facility])[address] BANDS (10*3/UL) IN BLOOD-CELLAVISION 1.1 10*3/uL High <=0.0 [facility] Comment on above: Performed By: #### L [id number], [id number] ####Wood Experimental Mechanic: THERON PERRY ([id number])[facility] ([facility])[address] BASOPHILS TOTAL PER COUNTED LEUKOCYTES BY MANUAL COUNT [facility] Comment on above: Performed By: #### L [id number], [id number] ####Wood Experimental Mechanic: THERON PERRY ([id number])[facility] ([facility])[address] [place] [address] [place] BLASTS TOTAL PER COUNTED LEUKOCYTES BY MANUAL COUNT [facility] Comment on above: Performed By: #### L [id number], [id number] ####Wood Experimental Mechanic: THERON PERRY ([id number])[facility] ([facility])[address] [place] [address] [place] EOSINOPHILS TOTAL PER COUNTED LEUKOCYTES BY MANUAL COUNT Normal [facility] Comment on above: Performed By: #### L [id number], [id number] ####Wood Experimental Mechanic: THERON PERRY ([id number])[facility] ([facility])[address] HYPOCHROMIA (PRESENCE) IN BLOOD BY LIGHT MICROSCOPY Slight Abnormal (none) [facility] Comment on above: Performed By: #### L [id number], [id number] ####Wood Experimental Mechanic: THERON PERRY ([id number])[facility] ([facility])[address] [place] [address] [place] LYMPHOCYTES (10*3/UL) IN BLOOD-CELLAVISION 2.2 10*3/uL Normal 1.0-4.3 [facility] Comment on above: Performed By: #### L [id number], [id number] ####Wood Experimental Mechanic: THERON PERRY ([id number])[facility] ([facility])[address] LYMPHOCYTES TOTAL PER COUNTED LEUKOCYTES BY MANUAL COUNT 12 Normal [facility] Comment on above: Performed By: #### L [id number], [id number] ####Wood Experimental Mechanic: THERON PERRY ([id number])[facility] ([facility])[address] [place] [address] [place] LYMPHOCYTES/100 LEUKOCYTES IN BLOOD-CELLAVISION 12 % Low 15-45 [facility] Comment on above: Performed By: #### L [id number], [id number] ####Wood Experimental Mechanic: TEHRON PERRY ([id number])[facility] ([facility])[address] [place] [address] [place] METAMYELOCYTES TOTAL PER COUNTED LEUKOCYTES BY MANUAL COUNT Normal [facility] Comment on above: Performed By: #### L [id number], [id number] ####Wood Experimental Mechanic: THERON PERRY ([id number])[facility] ([facility])[address] [place] [address] [place] MONOCYTES (10*3/UL) IN BLOOD-CELLAVISION 0.5 10*3/uL Normal 0.0-0.9 [facility] Comment on above: Performed By: #### L [id number], [id number] ####Wood Experimental Mechanic: THERON PERRY ([id number])[facility] ([facility])[address] [place] [address] [place] MONOCYTES TOTAL PER COUNTED LEUKOCYTES BY MANUAL COUNT 3 Normal [facility] Comment on above: Performed By: #### L [id number], [id number] ####Wood Experimental Mechanic: THERON LEWISCER ([id number])[facility] ([facility])[address] [place] [address] [place] MONOCYTES/100 LEUKOCYTES IN BLOOD-NIKKY 3 % Low 5-13 [facility] Comment on above: Performed By: #### L [id number], [id number] ####Wood Experimental Mechanic: THERON PERRY ([id number])[facility] ([facility])[address] [place] [address] [place] MYELOCYTES COUNTED BY MANUAL COUNT [facility] Comment on above: Performed By: #### L [id number], [id number] ####Wood Experimental Mechanic: THERON PERRY ([id number])[facility] ([facility])[address] [place] [address] [place] NEUTROPHILS BAND FORM/100 LEUKOCYTES IN BLOOD-CELLAVISI 6 % High <=0 [facility] Comment on above: Performed By: #### L [id number], [id number] ####Wood Experimental Mechanic: THERON PERRY ([id number])[facility] ([facility])[address] [place] [address] [place] NEUTROPHILS TOTAL PER COUNTED LEUKOCYTES BY MANUAL COUNT 79 [facility] Comment on above: Performed By: #### L [id number], [id number] ####Wood Experimental Mechanic: THERON PERRY ([id number])[facility] ([facility])[address] [place] [address] [place] PLATELETS GIANT PRESENCE IN BLOOD BY LIGHT MICROSCOPY Slight Abnormal (none) [facility] Comment on above: Performed By: #### L [id number], [id number] ####Wood Experimental Mechanic: THERON PERRY ([id number])[facility] ([facility])[address] [place] [address] [place] POIKILOCYTOSIS (PRESENCE) IN BLOOD BY LIGHT MICROSCOPY Slight Abnormal (none) [facility] Comment on above: Performed By: #### L [id number], [id number] ####Wood Experimental Mechanic: THERON PERRY ([id number])[facility] ([facility])[address] [place] [address] [place] PROMYELOCYTES TOTAL PER COUNTED LEUKOCYTES BY MANUAL COUNT Normal [facility] Comment on above: Performed By: #### L [id number], [id number] ####Wood Experimental Mechanic: THERON PERRY ([id number])[facility] ([facility])[address] [place] [address] [place] RBC MORPHOLOGY IN BLOOD abnormal Normal [facility] Comment on above: Performed By: #### L [id number], [id number] ####Wood Experimental Mechanic: THERON PERRY ([id number])[facility] ([facility])[address] [place] [address] [place] SEGMENTED NEUTROPHILS (10*3/UL) IN BLOOD-CELLAVISION 15.5 10*3/uL High 1.8-7.5 [facility] Comment on above: Performed By: #### L [id number], [id number] ####Wood Experimental Mechanic: THERON PERRY ([id number])[facility] ([facility])[address] [place] [address] [place] SEGMENTED NEUTROPHILS/100 LEUKOCYTES-CE 79 % Normal 38-82 [facility] Comment on above: Performed By: #### L [id number], [id number] ####Wood Experimental Mechanic: THERON PERRY ([id number])[facility] ([facility])[address] [place] [address] [place] STOMATOCYTES IN BLOOD BY LIGHT MICROSCOPY Slight Abnormal (none) [facility] Comment on above: Performed By: #### L [id number], [id number] ####Wood Experimental Mechanic: THERON PERRY ([id number])[facility] ([facility])[address] UNCLASSIFIED CELLS TOTAL PER COUNTED LEUKOCYTES BY MANUAL COUNT Normal [facility] Comment on above: Performed By: #### L [id number], [id number] ####Wood Experimental Mechanic: THERON PERRY ([id number])[facility] ([facility])[address] VARIANT LYMPHOCYTES TOTAL PER COUNTED LEUKOCYTES BY MANUAL COUNT Normal [facility] Comment on above: Performed By: #### L [id number], [id number] ####Wood Experimental Mechanic: THERON PERRY ([id number])[facility] ([facility])[address] [place] [address] [place] Magnesium [Mass/Vol]on 11-14 [facility] [employer] NT PRO BNPon 11-14-2024 Natriuretic peptide B (Bld) [Mass/Vol] 8878 pg/mL High <125 [facility] Comment on above: Performed By: #### L AB67, LAB17, DIN594, [id number], [id number], [id number] ####Wood Experimental Mechanic: THERON PERRY ([id number])[facility] [place] [address] [place] Natriuretic peptide B [Mass/ Vol]on 11-14-2024 Interpretation and review of laboratory results Abnormal [facility] Natriuretic peptide B (Bld) [Mass/Vol] 8878 pg/mL High NINF - 125 pg/mL [facility] No Panel Informationon 11-14 Extra Tube Hold for add-ons. [facility] Bands Manual 6 [facility] Interpretation and review of laboratory results Abnormal [facility] [employer] Lymphocytes Manual 12 [facility] Monocytes Manual 3 [facility] Neutrophils Manual 79 [facility] Interpretation and review of laboratory results Normal [facility] Interpretation and review of laboratory results Normal [facility] Interpretation and review of laboratory results Abnormal [facility] No Panel InformationOrdered By: Krishan Ramirez on 11-14-2024 Amount Of Oxygen 4L [facility] Interpretation and review of laboratory results Abnormal [facility] Source Of Oxygen Nasal Cannula (LPM) [facility] PHOSPHORUSon 11-14-2024 Phosphate [Mass/Vol] 2.5 mg/dL Normal 2.3-4.7 [facility] Comment on above: Performed By: #### L AB67, LAB17, WLG309, EVV269, ATV386, [id number] ####Wood Experimental Mechanic: THERON PERRY ([id number])[facility] ([facility])[address] PROTHROMBIN TIMEon INR Coag (PPP) [Relative time] 2.3 {INR} High 0.9-1.1 [facility] Comment on above: Result Comment: Alex mmended Anticoagulant Therapy: SEE BELOW ----- INR of 2.0 - 3.0 : - Prophylaxis of Venous Thrombosis (high-risk surgery) - Treatment of Venous Thrombosis - Treatment of Pulmonary Embolism (Includes tissue heart valves, Acute Myocardial Infarction to prevent systemic embolism, Valvular Heart Disease, and Atrial Fibrillation) ----- INR of 2.5 - 3.5 : - Mechanical Prosthetic Valves (high risk) - If oral anticoagulant therapy is used to prevent Myocardial Infarction Performed By: #### L [id number] #### Wood Experimental Mechanic: THERON PERRY ([id number]) [facility] ([facility]) [address] PT Coag (PPP) [Time] 23.5 s High 9.0-12.0 [facility] Comment on above: Performed By: #### L [id number] #### Wood Experimental Mechanic: THERON PERRY ([id number]) [facility] ([facility]) [address] PT Coag (Bld) [Time]on 11-14 INR Coag (PPP) [Relative time] 2.3 {INR} High 0.9 - 1.1 [facility] Interpretation and review of laboratory results Abnormal [facility] Phosphate [Moles/Vol]on 11-05 Phosphate [Mass/Vol] 2.5 mg/dL 2.3 - 4 .7 mg/dL [facility] Progress Noteon 11-14-2024 Progress Note Patient with tachypnea/resp distress. No respiratory issues earlier in day. Did receive Ertapenem earlier evening along with additional 500 ml fluid bolus and Albumin. Also had MBS this afternoon Patient did have small amount of epistaxis. Small amount of blood at lips, none in Oropharynx, no appreciated swelling, tongue swelling Do hear audible wheezing. There is some wheezing on auscultation of neck. No stridor. Lung sounds are clear. Skin with no hives, no urticaria. Tx with one racemic epi nebulizer. Dexamethasone 4 mg Q6 x 4 doses Check CXR, is positive 3.5 L, BNP was elevated at 8878. May need lasix? Normal [facility] Progress Note Nutrition Assessment Type and Reason for Visit: Initial, Positive Nutrition Screen (weight loss/PO) Nutrition Recommendations/Plan: Modify diet to Adult diet Dysphagia - Minced and Moist; Gluten Free to follow WASHHOUSE WORKER recommendation s/p MBSS today. Initiate Magic cup once daily per MNT protocol. Magic cup provides 290 kcals, 9 g protein per serving. Please document pt's PO intakes via flowsheet to accurately assess PO intake adequacy. Monitor intakes, weights, and labs weekly. RD will follow. Malnutrition Assessment: Malnutrition Status: At risk for malnutrition (Comment) Context: Acute Illness Findings of the 6 clinical characteristics of malnutrition: Energy Intake: 75% or less of estimated energy requirements for 7 or more days Weight Loss: No significant weight loss Body Fat Loss: Unable to assess Muscle Mass Loss: Unable to assess Fluid Accumulation: Mild Extremities Finish Off Operator Strength: Not Performed Nutrition Assessment: Pt is a 74 y/o female admitted to [facility] for complaints of pain all over in the ab and back areas and high grade fevers. Pt is s/p MBSS today, WASHHOUSE WORKER recommended Minced and Moist textures with thin liquids. Pt reported that her UBW was 179#. Per documented weight hx, pt used to weigh 145# (08/17/24) Most recent Documented weight this admit per bed scale 165#. 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 Bed scale per RD reweigh this afternoon was 91.9kg (202#)- pt doubted accuracy of this weight. Pt did have a lot of extra items on the bed which were likely contributing. Pt stated that she has taken Magic cup at the facility before and agreed to receive again. Denies any GI intolerance from Magic cup. Declined Ensure for now Estimated Daily Nutrient Needs: Energy Requirements Based On: Kcal/kg Weight Used for Energy Requirements: [place] Weight for Energy Calculation (kg): 52 kg Total Energy Requirements (kcals/day): 3383-7729 kcals (25-30 kcals/kg) Weight Used for Protein Requirements: [place] Weight in Kg Used for Protein Requirements: 52 kg Estimated Total Protein (g/day): 52-62g (1-1.2g/kg) Estimated Daily Total Fluid (ml/day): 1300 ml/day or per MD Nutrition Related Findings: non pitting BLE edema; Albumin 2.5, Corrected ca++ 9.66, Nt pro BNP 8878, Lactic Acid 1.4, Hgb 8.6, Hct 30.6; Coumadin, Rocephin, ASA, folvite, PPI Wound Type: (red coccyx) Current Nutrition Therapies: Adult diet Dysphagia - Minced and Moist; Gluten Free Current Oral Intake Average Meal Intake: 26-50% Average Supplements Intake: None Ordered Anthropometric Measures: Height: 160 cm (5' 3) Current Body Weight: 74.8 kg (165 lb) Weight Source: Bed Scale Admission Body Weight: 74.8 kg (165 lb) Usual Body Weight: 65.8 kg (145 lb) (08/17/24) % Weight Change (Calculated): 13.8 [place] Body Weight (lbs) (Calculated): 115 lbs [place] Body Weight (Kg) (Calculated): 52 kg % [place] Body Weight (Calculated): 143.5 % BMI (kg/m2) (Calculated): 29.2 Weight Adjustment For: No Adjustment BMI Categories: Overweight (BMI 25.0-29.9) Nutrition Diagnosis: Inadequate oral intake related to inadequate protein-energy intake as evidenced by intake 26-50% Swallowing difficulty related to partial or complete edentulism, altered GI structure as evidenced by swallow study results, poor dentition Nutrition Interventions: Nutrition Education/Counseling: No recommendation at this time Coordination of Nutrition Care: Continue to monitor while inpatient, Speech Therapy, Swallow Evaluation Plan of Care discussed with: Patient, WASHHOUSE WORKER/student Goals: Goals: PO intake 75% or greater, by next RD assessment, other (specify) Specify Other Goals: Pt will tolerate diet textures with ease of swallow and mastication Nutrition Monitoring and Evaluation: Behavioral-Environmental Outcomes: Readiness for Change Food/Nutrient Intake Outcomes: Diet Advancement/Tolerance, Food and Nutrient Intake, Supplement Intake Physical Signs/Symptoms Outcomes: Biochemical Data, Chewing or Swallowing, GI Status, Nausea or Vomiting, Fluid Status or Edema, Nutrition Focused Physical Findings, Weight, Skin Discharge Planning: Continue current diet, Continue Oral Nutrition Supplement Charles Madrigal RD Contact: *[phone] or via Secure Chat [facility] Progress Note Spiritual Care Note [facility] Palliative Care Patient Name:Divya Joseph Chief Complaint: Chief Complaint Patient presents with Altered Mental Status From [facility]. With AMS. Pt c/o of not feeling well. Pt with abd pain. Axo x 3 pt with temp of 100.3 Reason for visit: Initial Visit Services Provided To:patient and care team Background and visit note: Introduction and explanation of role. Patient wearing nasal canula. Patient is a . Spouse in 2001. Patient was for 17 years. Patient was baptized [employer] but is no longer affiliated with the [employer] due yarsani hurt. Patient shared that even though she is not going to [employer], she has a relationship God. Patient shared, I see God everywhere but I wasn't seeing Him at [employer]. Patient shared that she feels a peace knowing that God is with her. Provided empathetic listening and supportive prayer. Patient is supported by her brother and [id number]. Is there spiritual distress? NO Comment: Interventions: spiritual support provided, emotional support provided, empathetic listening, and validated feelings. Care Plan: spiritual reflection, find peace/acceptance, and connect to higher power. Follow Up: PRN. Debriefed: with patients nurse. Derek Galvez 11/14/24 [facility] Progress Note OCCUPATIONAL THERAPY [facility] & ED's Name/MRN: Divya Joseph ([id number]) Date: 11/14/2024 Evaluation is being deferred at present because another caregiver is actively providing care for the patient and pt is currently off of the floor . Pt unavailable with other provider upon arrival for second attempt. Will continue to monitor and re-attempt during current admission. Evelyn Nguyen OT Normal [facility] Progress Note Speech-Regulatory Compliance Director ology SPEECH LANGUAGE PATHOLOGY [facility] ED's Modified Barium Swallow Study Patient Name: Divya Joseph Evaluation Date: 11/14/2024 Date of : 1950 Admission Date: 11/13/2024 9:27 AM Age: 74 y.o. Room/Bed: 222-03/222 A IMPRESSION: The patient presents with mild - moderate oral phase dysphagia associated with reduced oral bolus and coordination of oral transit and oral residue. There is no pharyngeal phase dysphagia however noted gagging and cervical osteophytes. There was no laryngeal penetration or aspiration observed. RECOMMENDATION: Recommend Minced and moist solids and Thin liquids and meds whole in puree, as tolerated and the following precautions: - Upright positioning for all PO intake - Slow rate of intake - Small bites/sips - Rest periods during meals Penetration-Aspiration Scale: 1. No contrast enters the airway. Pt would benefit from skilled acute WASHHOUSE WORKER services to ensure patient tolerance of the recommended diet and assess for potential diet upgrade. (If dentures) Frequency: 3 days/wk for 2 weeks Barriers: increased work of breathing Prognosis: fair D/C Recommendations: to be determined General Initial MBS completed to assess the efficiency of her swallow function, rule out aspiration, and make recommendations regarding safe dietary consistencies, effective compensatory strategies, and safe eating environment. Subjective: Pt was alert, accompanied by RN. Appear to have tardive dyskinesia Radiologist: GILSON Cowan/ Rosanne Mir Md Prior MBSS?: No documentation of same. Pt indicated that she had study at [facility]. Unclear of results. Indicated something that was stuck in her throat. C/o pill sticking in the past, then clearing with a drink of coffee. Baseline Diet: Regular diet suspected per pt report. Unable to locate in transfer information. Current diet: Dietary Orders (From admission, onward) Start Ordered 11/13/24 1746 Adult diet Regular Diet effective now Question: Diet type Answer: Regular 11/13/24 1745 Textures tested: - thin liquid, (cup edge, straw) - mildly thick liquid, (cup edge) - puree, (teaspoon) - soft and bite sized solids Patient position: lateral Past Medical History: Medical History[1] Past Surgical History: Surgical History[2] Admission Diagnosis: Patient Active Problem List Diagnosis Date Noted Transient alteration of awareness 11/13/2024 Pain: complain of pain legs and back. Pain medications have changed from what she was previously on; RN present for discussion Reason for current admission: Patient is a 74-year-old female from [facility] was sent here with complaint of fever high-grade, patient also complained of abdominal pain, she is hypoxic in the emergency department, she complains of pain all over mostly in the back she has been having her recent falls. AMS, not acting like herself. Globus sensation complaint during bedside swallowing evaluation, increased work of breathing and coughing with po trials during initial evaluation. Oral Phase Mild to moderate disorganized oral transit. Noted anterior to posterior rocking to and fro 3-4 times prior to initiation of swallowing at times. She did demonstrate functional control. Pt experienced true dislike for barium and noted some gagging while swallowing the peaches mixed with barium, this required prolonged mastication and 3 swallows to completely clear all of residuals. (Edentulous status, does not want dentures, still at nursing facility). Mild to trace oral residuals with mildly thick, pudding and thin liquids. Re-swallow is beneficial to clear. Pharyngeal Phase Pharyngeal phase of swallow appeared WNL. The onset of the swallow is timely. Pharyngeal contraction is strong. Hyolaryngeal excursion and epiglottic deflection are complete. Pharyngeal clearance is appropriate. There is no aspiration or laryngeal penetration observed. Noted cervical osteophytes at C4, C5-6. Pt did demonstrate gagging when bolus of peaches reached oropharynx without airway compromise. +coughing on 2 other occasions without airway compromise. Increased work/effort of breathing throughout swallowing study observed. Esophageal Phase The esophagus was not visualized below the level of the UES. Noted: cricopharyngeal hypertrophy Education The preliminary results of this evaluation were briefly shared with the patient. Goals Patient Stated Goal: To eat what I want. Encounter Problems Encounter Problems (Active) Swallowing Patient will participate in instrumental assessment of swallowing as appropriate Start: 11/14/24 Expected End: 11/16/24 Patient will tolerate the least restrictive diet consistency to allow for safe consumption of daily meals Start: 11/14/24 Expected End: 11/28/24 Patient will demonstrate safe swallowing Intervention/techniques Start: 11/14/24 Expected End: 11/28/24 (more content not included)... Normal [facility] Progress Note Speech-Regulatory Compliance Director ology SPEECH LANGUAGE PATHOLOGY [facility] Bedside Swallow Evaluation Patient Name: Divya Joseph Evaluation Date: 11/14/2024 Date of : 1950 Admission Date: 11/13/2024 9:27 AM Age: 74 y.o. Room/Bed: 222-03/222-03 A IMPRESSION: S/s oropharyngeal dysphagia. Intermittent overt clinical s/s pulmonary compromise with PO. Risk factors for aspiration history of dysphagia, recent hypoxic respiratory failure RECOMMENDATION: Recommend strict NPO until MBSS Dysphagia NOMS: Level 2: Individual is not able to swallow safely by mouth for nutrition and hydration, but may take some consistency with consistent maximal cues in a therapy env only. Alternative method of feeding is required. Recommend modified barium swallow study (MBSS) to further assess. Subjective Patient alert and cooperative. Seen upright in bed. Answers all basic questions with clear vocal quality. Follows all basic commands. Visitors at bedside - Brother. Spoke with RN Mariama who cleared pt to be evaluated. Dysphagia History: Prior MBS completed in 2023 at [facility] with results unclear and unable to located in EMR. Patient mentioned that previous WASHHOUSE WORKER who administered MBSS stated something gets stuck in the bottom of my throat, they found a pill stuck sitting in my throat,, they told me to eat regular diet. Further investigation needed. Baseline Diet: Regular Current Diet: Dietary Orders (From admission, onward) Start Ordered 11/14/24 1452 Supplement:Dinner; Vanilla Magic Cup Until discontinued Question Answer Comment Frequency Dinner Select supplement: Vanilla Magic Cup 11/14/24 1451 11/14/24 1451 Adult diet Dysphagia - Minced and Moist; Gluten Free Diet effective now Question Answer Comment Diet type Dysphagia - Minced and Moist Other restriction(s): Gluten Free 11/14/24 1451 Tube Feeding: no Tracheostomy: no Recent Chest Xray/CT of Chest: CT chest angiogram w and/or wo IV contrast 11/13/2024 Impression Examination is limited due to motion artifact. There is decreased attenuation involving multiple segmental and subsegmental pulmonary artery supplying the right upper lobe which could represent pulmonary emboli, however evaluation is limited due to the motion artifact. The RV/LV ratio is less than one.. . Report Dictated on Electronically Signed By: Wong Srinivasan MD Electronically Signed Date/Time: 11/13/2024 11:29 AM EDT Oxygen: 3L/min Oxygen Therapy: Supplemental oxygen O2 Delivery Method: Nasal cannula O2 Flow Rate (L/min): 3 L/min Past Medical History: Medical History[1] Past Surgical History: Surgical History[2] Admission Diagnosis: Patient Active Problem List Diagnosis Date Noted Transient alteration of awareness 11/13/2024 History of Present Illness: Patient is a 74-year-old female from [facility] was sent here with complaint of fever high-grade, patient also complained of abdominal pain, she is hypoxic in the emergency department, she complains of pain all over mostly in the back she has been having her recent falls, Patient Complaint: Having pain all over Pain: Pt denies any current pain. PPE Worn: gloves Objective Bedside swallow eval completed. Oral Motor Mechanism Facial Movement (CN VII) - WFL Labial Structure/Function (CN VII) - WFL Lingual Structure/Function (CN XII) - Left generalized weakness Dentition - with no dentures present Oral Hygiene: clean with dry mouth Swallowing Examination PO Trials - ice chips, (fed by clinician) - thin liquid, (cup edge, fed by clinician) - puree, (teaspoon, fed by clinician) - soft and bite sized solids (fruit cup) - regular solids (gluten free cookie) - fed by clinician and self administered Oral Phase Pt with adequate oral receipt of PO trials. No anterior spillage. Mastication with solids appeared incomplete and prolonged due to lack of dentition. Oral transit time appears WFL. Min oral residue. Additional Observations: Patient unable to fully masticate, expect for small bite of peaches. Patient was unable to chew solids and expectorated. Patient said dentures were at home. Pharyngeal Phase Hyolaryngeal excursion clinically appears adequate and timely per palpation. 1 swallows palpated per bolus, likely indicative of questionable pharyngeal clearance. Overt clinical s/s pulmonary compromise with Regular solids, Easy to chew solids, Pureed solids, and Thin liquids as evidenced by immediate cough after solids, altered ataxic vocal quality, increased WOB. Additional Observations: MBSS requested due to increased WOB with all PO trials and patient mentioning she felt something stuck in pharyngeal area. Education Education Given: potential for additional diagnostic testing Given To: patient Response: verbalizes understanding Goals Patient Stated Goal: not stated Encounter Problems Enco (more content not included)... Normal [facility] Progress Note [facility] Anticoagulatio n Management Service (VAN) Inpatient Warfarin Consult HPI: Divya Joseph is a 74 y.o. 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 Medical History[1] Patient is on warfarin for Afib and has a goal INR 2.0 - 3.0. Warfarin is currently managed by [facility]. Pt's home dose of warfarin is 2.5mg daily per [place] at the facility. Pt's last INR in the clinic was 2.6 on 10/29. S/sx of bleeding= hgb 8.6 Interacting medications= ASA Labs: Recent Labs 11/13/24 0951 11/14/24 0516 HGB 11.2* 9.8* 8.6* HCT 34.2* 30.6* PLT 184 160 Recent Labs 11/14/24 0516 INR 2.3* Date INR Dose 11/14 2.3 2.5mg 11/13 2.3 4mg Assessment/Plan: 1. INR is therapeutic. Will give home dose of warfarin 2.5mg today. 2. Monitor for s/s of bleeding and drug interactions. Will adjust dose accordingly. 3. Warfarin is managed by [facility] outpatient. VAN will manage inpatient and sign off at discharge. Luly Hanley RP, PharmD [facility] Consult Service is available daily [phone] via [employer] Secure Chat. [1] Past Medical History: Diagnosis Date Altered mental status, unspecified Ataxia Atherosclerotic heart disease Bradycardia, unspecified Cognitive communication deficit COPD (chronic obstructive pulmonary disease) ([facility]) i was told i had COPD, then I was told i wasn't, i don't know for sure Difficulty walking Dysphagia, oropharyngeal phase Dyspnea Essential (primary) hypertension Gastro-esophageal reflux disease without esophagitis Muscle weakness (generalized) Need for assistance with personal care Other chronic pain Pain in left shoulder Paroxysmal atrial fibrillation (HCC) Peripheral vascular disease, unspecified (HCC) Presence of cardiac pacemaker Repeated falls Sick sinus syndrome (CMS/HCC) (HCC) Unsteadiness on feet Weakness Normal [facility] [employer] [facility] RF videography Hypopharynx a nd Esophagus Views for swallowing function W speech and W barium contrast Adonay 11-14-2024 [facility] Radiology Study observation (narrative) [facility] RF videography Hypopharynx a nd Esophagus Views for swallowing function W speech and W barium contrast POOrdered By: Rosanne Mir on 11-14-2024 [facility] THYROID STIMULATING HORMONEo n 11-14-2024 THYROID STIMULATING HORMONE 0.69 uIU/mL Normal 0.35-4.94 [facility] Comment on above: Performed By: #### L AB67, LAB17, [id number], [id number], [id number], [id number] ####Wood Experimental Mechanic: THERON PERRY ([id number])[facility] (SB[facility])[address] [place] [address] TSH Qnon 11-14-2024 Interpretation and review of laboratory results Normal [facility] Boxed Heart TransthoracicOrdere d By: Rosanne Saunders on 11-14-2024 Aortic Sinus Valsalva 3 cm [employer] Phone: Aortic Sinus Valsalva Index 1.69 cm/m2 [employer] Phone: [phone] Aortic valve Mean systole pressure gradient by US.doppler derived full Bernoulli 8 mmHg [employer] Phone: [phone] Aortic valve Orifice area by US 2.5 cm2 [employer] Phone: [phone] Aortic valve Peak systolic flow by US.doppler 1.4 m/s [employer] Phone: [phone] Ascending Aorta 3.3 cm [employer] Phone: [phone] Ascending Aorta Index 1.85 cm/m2 [employer] Phone: AV Area by Peak Velocity 1.6 cm2 [facility] Work Phone: AV Area by VTI 1.5 cm2 [facility] [employer] Work Phone: AV Peak Gradient 15 mmHg [facility] [employer] Work Phone: AV Peak Velocity 2 m/s [facility] [employer] Work Phone: AV Velocity Ratio 0.6 [facility] [employer] Work Phone: AV VTI 47.4 cm [facility] [employer] Work Phone: MINDY/BSA Peak Velocity 0.9 cm2/m2 [facility] [employer] Work Phone: MINDY/BSA VTI 0.8 cm2/m2 [facility] [employer] Work Phone: E/E' Lateral 12.78 [facility] [employer] Work Phone: E/E' Ratio (Averaged) 14.6 [facility] [employer] Work Phone: E/E' Septal 16.43 [facility] [employer] Work Phone: Est. RA Pressure 3 mmHg [facility] [employer] Work Phone: Fractional Shortening 2D 37 % 28 - 44 % [facility] Work Phone: Global Longitudinal Strain -19.8 % [facility] [employer] Work Phone: Interpretation and review of laboratory results Abnormal [facility] Phone: IVC Diameter 2 cm [facility] Work Phone: IVSd 0.7 cm 0.6 - 0.9 cm [facility] Work Phone: LA Diameter 4.9 cm [facility] [employer] Work Phone: LA Size Index 2.75 cm/m2 [facility] Phone: LA Volume 2C 76 mL Abnormal 22 - 52 mL [facility] Work Phone: LA Volume 4C 53 mL Abnormal 22 - 52 mL [facility] Phone: LA Volume A/L 69 mL [facility] Work Phone: LA Volume BP 66 mL Abnormal 22 - 52 mL [facility] Work Phone: LA Volume Index 2C 43 mL/m2 Abnormal 16 - 34 mL/m2 [facility] [employer] Work Phone: LA Volume Index 4C 30 mL/m2 16 - 34 mL/m2 [facility] [employer] Work Phone: LA Volume Index A/L 39 mL/m2 16 - 34 mL/m2 [facility] [employer] Work Phone: LA Volume Index BP 37 ml/m2 Abnormal 16 - 34 ml/m2 [facility] [employer] Work Phone: Left ventricular Ejection fraction by US.2D+Calculated by biplane method of disks 55 % 55 - 100 % [facility] [employer] Work Phone: LV E' Lateral Velocity 9 cm/s [facility] Work Phone: LV E' Septal Velocity 7 cm/s [facility] [employer] Work Phone: LV EDV A2C 83 mL [facility] [employer] Work Phone: LV EDV A4C 76 mL [facility] [employer] Work Phone: LV EDV BP 81 mL 56 - 104 mL [facility] [employer] Work Phone: LV EDV Index A2C 47 mL/m2 [facility] [employer] Work Phone: LV EDV Index A4C 43 mL/m2 [facility] [employer] Work Phone: LV EDV Index BP 46 mL/m2 [facility] [employer] Work Phone: LV Ejection Fraction A2C 50 % [facility] [employer] Work Phone: LV Ejection Fraction A4C 59 % [facility] [employer] Work Phone: LV ESV A2C 41 mL [facility] [employer] Work Phone: LV ESV A4C 31 mL [facility] [employer] Work Phone: LV ESV BP 36 mL 19 - 49 mL [facility] [employer] Work Phone: LV ESV Index A2C 23 mL/m2 [facility] [employer] Work Phone: LV ESV Index A4C 17 mL/m2 [facility] [employer] Work Phone: LV ESV Index BP 20 mL/m2 [facility] [employer] Work Phone: LV IVRT 70.4 ms [facility] [employer] Work Phone: LV Mass 2D 72.9 g 67 - 162 g [facility] [employer] Work Phone: LV Mass 2D Index 40.9 g/m2 Abnormal 43 - 95 g/m2 [facility] [employer] Work Phone: LV RWT Ratio 0.23 [facility] [employer] Work Phone: LVIDd 4.3 cm 3.9 - 5.3 cm [facility] [employer] Work Phone: LVIDd Index 2.42 cm/m2 [facility] [employer] Work Phone: LVIDs 2.7 cm [facility] [employer] Work Phone: LVIDs Index 1.52 cm/m2 [facility] [employer] Work Phone: LVOT Cardiac Output 4.3 liter/minute [facility] [employer] Work Phone: LVOT Diameter 1.8 cm [facility] [employer] Work Phone: LVOT Mean Gradient 3 mmHg [facility] [employer] Work Phone: LVOT Peak Gradient 6 mmHg [facility] [employer] Work Phone: LVOT Peak Velocity 1.2 m/s [facility] [employer] Phone: LVOT Stroke Volume Index 39.7 mL/m2 [facility] [employer] Work Phone: LVOT SV 70.7 ml [facility] [employer] Work Phone: LVOT VTI 27.8 cm [facility] [employer] Work Phone: LVOT:AV VTI Index 0.59 [facility] [employer] Work Phone: LVPWd 0.5 cm Abnormal 0.6 - 0.9 cm [facility] [employer] Work Phone: MV A Velocity 0.62 m/s [facility] [employer] Work Phone: MV E Velocity 1.15 m/s [facility] [employer] Work Phone: MV E Wave Deceleration Time 157 ms [facility] [employer] Work Phone: MV E/A 1.85 [facility] [employer] Work Phone: Pulmonary Artery EDP 30 mmHg [facility] Work Phone: Pulmonary Artery EDP 8 mmHg [facility] Work Phone: RA Area 4C 48.1 mL [facility] [employer] Work Phone: [phone] RA Area 4C 46.3 mL [facility] [employer] Work Phone: RV Basal Dimension 4.3 cm [facility] [employer] Work Phone: RV Free Wall Peak S' 9 cm/s [facility] [employer] Work Phone: RV Longitudinal Dimension 7.5 cm [facility] [employer] Work Phone: RV Mid Dimension 3.3 cm [facility] [employer] Work Phone: RVSP 44 mmHg [facility] [employer] Work Phone: Sinotubular Junction 2.4 cm [facility] [employer] Work Phone: TR Max Velocity 3.21 m/s [facility] [employer] Work Phone: TR Peak Gradient 41 mmHg [facility] [employer] Work Phone: [facility] [employer] Work Phone: US Heart Transthoracicon CV CPACS US Lower extremity vein - bi lateralon 11-14-2024 CV CPACS VITAMIN B12on 11-14-2024 Cobalamin (Vitamin B12) [Mass/Vol] 338 pg/mL Normal 213-816 [facility] [employer] [facility] Comment on above: Performed By: #### L AB67, LAB17, [id number], [id number], [id number], [id number] ####Wood Experimental Mechanic: THERON PERRY ([id number])[facility] (SB[facility])[address] [place] [address] Vital signsOrdered By: Krishan Ramirez on 11-14-2024 Oxygen saturation in Venous blood 92.5 % [facility] XR Chest Single viewon 11-14 [facility] Radiology Study observation (narrative) [facility] XR Chest Single viewOrdered By: Alanna Stewart on 11-14-2024 [facility] [employer] Work Phone: [phone] 11-13-2024 [id number] PE Response Team Tri age Brief HPI: This is a 74 y.o F with a PMH of CAD s/p CABG, HTN, A-fib, SSS s/p PPM, PVD, COPD, Anemia, Dysphagia, Debility, who presents to the ED today from SNF with altered mental status. Patient is not sure why she is at the hospital, states I just woke up here. Per notes patient reportedly febrile, abd pain and altered mental status. Patient reports that she has had lower abd pain, along with right rib pain, increased urgency and difficulty urinating. Patient also endorses LE swelling, chills, fatigue and shortness of breath, n/v. Patient was hypertensive in the ED. WBC 12.7, 13% bands, LA 2.6, UA grossly positive, CT A/P did show right side mild hydroureter but no obstructing stone. CTA chest also showed RUL segmetal PE. Troponin elevated. No RV strain. CX's obtained, given 2L IVF, started on CTX and admitted to the hospitalist service. This evening patient with rising lactate up to 4.0 with decreasing BP (SBP 100) Hemodynamic instability: Yes Notable vital signs: SBP <100 RV Strain: No Positive troponin: Yes (hs-cTn ref. range: Males>35, Females>14) Troponin HS Serial Baseline Date Value Ref Range Status 11/13/2024 78 (H) <=14 ng/L Final Comment: In individuals presenting with symptoms > 2h, a baseline troponin <= 5 ng/L suggests acute cardiac injury is unlikely and further serial testing is generally not indicated. 2h Troponin HS (Serial 2nd Troponin) Date Value Ref Range Status 11/13/2024 90 (H) <=14 ng/L Final Comment: Rising or falling troponin delta between 2 - 15 ng/L as compared to baseline value requires a 3rd serial troponin 4h Troponin HS (Serial 3rd Troponin) Date Value Ref Range Status 11/13/2024 152 (H) <=14 ng/L Final Comment: 4h troponin (3rd troponin) samples collected between 1h 40 min and 2h and 20 min of the 2h troponin collection time can be utilized to interpret delta troponins as per [employer] [facility]. Samples collected outside this timeframe need to be interpreted clinically. Rising or falling troponin delta greater than 15 ng/L as compared to 2h troponin value is significant for acute cardiac injury. 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 Contraindication to Anticoagulation (AC) Contraindication to Thrombolytics No apparent contraindications noted No apparent contraindications noted [] Active, clinically significant bleeding [] Severe uncontrolled hypertension [] Anticipated or recent neuraxial anesthesia [] Invasive procedure or OB delivery Consult Neurocritical Care on-call attending before initiating anticoagulation if: [] Ischemic stroke or intracranial hemorrhage within 30 days *If ischemic stroke or ICH within 30 days, will need baseline CTH prior to starting anticoagulation* [] Structural cerebrovascular lesion or intracranial neoplasm Relative contraindications for anticoagulation -- if any of the below, consult on-call Trauma attending prior to initiating anticoagulation: [] Traumatic brain injury, including head trauma with facial fractures and negative head CT [] Spinal fractures and/or spinal cord injury [] Solid organ injuries [] Trauma-induced coagulopathy [] Geriatric trauma [] Hemothorax [] Cardiac injuries [] Pelvic fracture(s) [] Multiple extremity fractures [] Active bleeding (excluding menses) [] Severe uncontrolled hypertension [] Significant head injury or facial trauma within the last 3 months [] Recent intracranial or spinal surgery [] Possible aortic dissection Consult Neurocritical Care on-call attending before initiating thrombolysis if: [] Ischemic stroke within 3 months [] Recent intracranial hemorrhage [] Structural cerebrovascular lesion or intracranial neoplasm considerations: [] Patient is , tenecteplase is contraindicated Assessment/Recommendation : Low-Intermediate Risk PE Anticoagulation Recommendations: Eliquis 10mg BID x 7 days followed by 5mg BID, patient already on Warfarin Care Plan Recommendations: LOW-INTERMEDIATE RISK PE: Systemic anticoagulation with specialist consult Disposition Recommendations: Hospitalization for further management with Pulmonary consult PE protocol orders placed by PERT [x] Serial hs-cTn q2h x 2 [x] STAT BNP and again in AM [x] Formal 2D Echo [x] Lower extremity duplex -- symptomatic DVT only [] Interventional Cardiology consult [x] Pulmonary consult [] Consider Pulmonary consult for unrelated to PE (I.e., lung nodule, acute respiratory failure, etc) [] PE Clinic Referral -- follow-up appointment on AVS This consultation was completed remotely. (more content not included)... Normal [facility] BASIC METABOLIC PANELon 09-0 Anion gap [Moles/Vol] 12 mmol/L Normal 3-13 [facility] Comment on above: Performed By: #### L AB103, LAB99, LAB15, [id number] ####Wood Experimental Mechanic: THERON PERRY ([id number])[facility]ALTH[facility] SUSANAKAITLIN (SBHLAB)[address] Calcium [Mass/Vol] 7.5 mg/dL Low 8.8-10.0 [facility] Comment on above: Performed By: #### L AB103, LAB99, LAB15, [id number] ####Wood Experimental Mechanic: THERON PERRY ([id number])[facility]ALTH[facility] BARBMACKN (SBHLAB)[address] Chloride [Moles/Vol] 109 mmol/L High 98-107 [facility] Comment on above: Performed By: #### L AB103, LAB99, LAB15, [id number] ####Wood Experimental Mechanic: THERON PERRY ([id number])[facility]ALTH[facility] BARBKAITLIN (SBHLAB)[address] CO2 [Moles/Vol] 21 mmol/L Low 23-31 [facility] Comment on above: Performed By: #### L AB103, LAB99, LAB15, [id number] ####Wood Experimental Mechanic: THERON PERRY ([id number])[facility] (SBHLAB)[address] Creatinine [Mass/Vol] 0.79 mg/dL Normal 0.57-1.11 [facility] Comment on above: Performed By: #### L AB103, LAB99, LAB15, [id number] ####Wood Experimental Mechanic: THERON PERRY ([id number])[facility] [place] (SBHLAB)[address] [place] [address] [place] GLOMERULAR FILTRATION RATE ML/MIN/1.73 SQ M.PREDICTED 78.6 mL/min/1.73m*2 Normal >60.0 [facility] Comment on above: Result Comment: Calc ulation based on the Chronic Kidney Disease Epidemiology Collaboration (CKD-EPI) equation refit without adjustment for race Performed By: #### L AB103, LAB99, LAB15, [id number] ####Wood Experimental Mechanic: THERON PERRY ([id number])[facility] (SBHLAB)[address] Glucose [Mass/Vol] 141 mg/dL High 82-115 [facility] Comment on above: Performed By: #### L AB103, LAB99, LAB15, [id number] ####Wood Experimental Mechanic: THERON PERRY ([id number])[facility] (SBHLAB)[address] Potassium [Moles/Vol] 3.1 mmol/L Low 3.5-5.1 [facility] Comment on above: Result Comment: [facility] potassium values may be up to 0.5 mmol/L lower than serum values. Performed By: #### L AB103, LAB99, LAB15, [id number] ####Wood Experimental Mechanic: THERON PERRY ([id number])[facility] (SBHLAB)[address] [place] [address] [place] Sodium [Moles/Vol] 142 mmol/L Normal 136-145 [facility] Comment on above: Performed By: #### L AB103, LAB99, LAB15, [id number] ####Wood Experimental Mechanic: THERON PERRY ([id number])[facility] (SBHLAB)[address] [place] [address] [place] Urea nitrogen [Mass/Vol] 11 mg/dL Normal 9-23 [facility] Comment on above: Performed By: #### L AB103, LAB99, LAB15, [id number] ####Wood Experimental Mechanic: THERON PERRY ([id number])[facility] ([facility])[address] [place] [address] BLOOD CULTUREon 11-13-2024 Bacteria identified Cx Nom (Bld) BLOOD CULTURE (AA) Reference ESCHERICHIA COLI Escherichia coli (AA) For identification and/or sensitivity, refer to culture collected on: 11/13/2024 at 1008 (25[facility]-[id number]). This is an edited result. Previous organism was Gram-negative bacilli on 11/14/2024 at 1514 EDT. ORDER COMMENTS: Blood Collection Site: Left Antecubital [ S = SUSCEPTIBLE R = RESISTANT I = INTERMEDIATE S-DD = Susceptible-dose dependent NS = Non-susceptible NO = No Interpretation ] Normal [facility] Comment on above: Performed By: #### L AB462 ####Wood Experimental Mechanic: MARIAMA CAGLE ([id number])[address] Bacteria identified Cx Nom (Bld) BLOOD CULTURE (AA) Reference ESCHERICHIA COLI Escherichia coli (AA) This is an edited result. Previous organism was Gram-negative bacilli on 11/14/2024 at 0010 EDT. ORDER COMMENTS: Blood Collection Site: Right Arm Organism: ESCHERICHIA COLI Antibiotic ALLA Interpretation Status Ampicillin >=32 ug/ml R F Ampicillin / Sulbactam 16 ug/ml I F Aztreonam <=1 ug/ml S F Cefazolin 8 ug/ml R F Cefepime <=0.12 ug/ml S F Ceftriaxone <=0.25 ug/ml S F Ciprofloxacin <=0.06 ug/ml S F Ertapenem <=0.12 ug/ml S F Gentamicin <=1 ug/ml S F Levofloxacin <=0.12 ug/ml S F Meropenem <=0.25 ug/ml S F Piperacillin / Tazobactam <=4 ug/ml S F Trimethoprim / Sulfamethoxazole <=20 ug/ml S F [ S = SUSCEPTIBLE R = RESISTANT I = INTERMEDIATE S-DD = Susceptible-dose dependent NS = Non-susceptible NO = No Interpretation ] [facility] Comment on above: Performed By: #### L AB462, [id number] ####Wood Experimental Mechanic: MARIAMA CAGLE ([id number])[address] BLOOD CULTURE IDENTIFICATION - ANAEROBICon 11-13-2024 BLOOD CULTURE IDENTIFICATION - ANAEROBIC ESCHERICHIA COLI, BLOOD (A) Reference Detected Not Detected ORDER COMMENTS: (A) Methodology: Multiplex PCR The Deliv BCID panel can detect the following organisms: E. faecalis, E. faecium, Staphylococcus spp., S. aureus, S. epidermidis, S. lugdunensis, Streptococcus spp., S. pyogenes (Group A), S. agalactiae (Group B), S. pneumoniae, A. baumannii complex, B. fragilis, H. influenzae, N. meningitidis, P. aeruginosa, S. maltophilia, Enterobacterales, E. cloacae complex, E. coli, K. aerogenes, K. oxytoca, K. pneumoniae, Proteus spp., Salmonella spp., S. marcescens, C. albicans, C. auris, C. glabrata, C. krusei, C. parapsilosis, C. tropicalis, and C. neoformans/gattii. The following antimicrobial resistance genes are reported if appropriate organisms are detected: mecA/C and Gonzalo/B. The following antimicrobial resistance genes are reported if detected and the appropriate organisms are detected: CTX-M, IMP, KPC, NDM, OXA-48-like, VIM, and mcr-1. [facility] Comment on above: Performed By: #### L AB462, [id number] ####Wood Experimental Mechanic: MARIAMA CAGLE ([id number])[facility] (SACLAB[address] BLOOD GAS, VENOUSon 11-14-19 25 AMOUNT OF OXYGEN 3l [facility] Comment on above: Result Comment: MEERA R COMMENTS: Assessment of oxygenation is best done with an arterial blood gas determination. Reference ranges for pO2, bicarbonate, and base excess are for mixed venous blood. Specimens drawn from a peripheral vein will often have higher values. Performed By: #### L AB79 ####Wood Experimental Mechanic: THERON PERRY ([id number])[facility] ([facility])[address] [place] [address] Base excess Calc (BldV) [Moles/Vol] 0.1 mmol/L Normal -3.0-3.0 [facility] Comment on above: Performed By: #### L AB79 ####Wood Experimental Mechanic: THERON PERRY ([id number])[facility] ([facility])[address] CO2 [Moles/Vol] 26.1 mmol/L Normal 23.0-30.0 [facility] Comment on above: Performed By: #### L AB79 ####Wood Experimental Mechanic: THERON PERRY ([id number])[facility] ([facility])[address] HCO3 (Bld) [Moles/Vol] 24.9 mmol/L Normal 21.0-30.0 [facility] Comment on above: Performed By: #### L AB79 ####Wood Experimental Mechanic: THERON PERRY ([id number])[facility] ([facility])[address] Hemoglobin (Bld) [Mass/Vol] 11.2 g/dL Low Screen only [facility] Comment on above: Performed By: #### L AB79 ####Wood Experimental Mechanic: THERON PERRY ([id number])[facility] ([facility])[address] OXYGEN (MM HG) IN VENOUS BLOOD 34.3 mm Hg Normal [facility] Comment on above: Performed By: #### L AB79 ####Wood Experimental Mechanic: THERON PERRY ([id number])[facility] ([facility])[address] OXYGEN SATURATION (%) IN VENOUS BLOOD 64.8 % Normal [facility] Comment on above: Performed By: #### L AB79 ####Wood Experimental Mechanic: THERON PERRY ([id number])[facility] ([facility])[address] [place] [address] [place] PCO2, VINCENZO 41.1 mm Hg Normal 35.0-53.0 [facility] Comment on above: Performed By: #### L AB79 ####Wood Experimental Mechanic: THERON PERRY ([id number])[facility] ([facility]AB)[address] PH VENOUS 7.400 Normal 7.320-7.420 [facility] Comment on above: Performed By: #### L AB79 ####Wood Experimental Mechanic: THERON PERRY ([id number])[facility] (SBHLAB)[address] SOURCE OF OXYGEN Nasal Cannula (LPM) Normal [facility] Comment on above: Performed By: #### L AB79 ####Wood Experimental Mechanic: THERON PERRY ([id number])[facility] (SBHLAB)[address] Basic metabolic 1998 panelon 11-13-2024 Anion gap [Moles/Vol] 12 mmol/L 3 - 13 mmol/L [facility] Calcium [Mass/Vol] 7.5 mg/dL Low 8.8 - 10. 0 mg/dL [facility] Chloride [Moles/Vol] 109 mmol/L High 98 - 10 7 mmol/L [facility] CO2 [Moles/Vol] 21 mmol/L Low 23 - 31 mmol/L [facility] Creatinine [Mass/Vol] 0.79 mg/dL 0.57 - 1.11 mg/dL [facility] GFR/1.73 sq M.predicted (S/P/Bld) [Vol rate/Area] 78.6 mL/min - PINF [facility] Glucose [Mass/Vol] 141 mg/dL High 82 - 115 mg/dL [facility] Interpretation and review of laboratory results Abnormal [facility] Potassium [Moles/Vol] 3.1 mmol/L Low 3.5 - 5.1 mmol/L [facility] Sodium [Moles/Vol] 142 mmol/L 136 - 145 mmol/L [facility] Urea nitrogen [Mass/Vol] 11 mg/dL 9 - 23 mg/dL [facility] CALCIUM, IONIZEDon 5 CALCIUM IONIZED 3.80 mg/dL Low 4.30-5.20 [facility] Comment on above: Performed By: #### L AB54 ####Wood Experimental Mechanic: THERON PERRY ([id number])[facility] ([facility])[address] PH, IONIZED CALCIUM 7.48 High 7.31-7.46 [facility] Comment on above: Performed By: #### L AB54 ####Wood Experimental Mechanic: THERON PERRY ([id number])[facility] ([facility])[address] CBC W Auto Differential pane l (Bld)Ordered By: Kody Abarca on 11-13-2024 Erythrocyte distribution width (RBC) [Ratio] 20.2 % High 11.5 - 15.0 % [facility] Hematocrit (Bld) [Volume fraction] 34.2 % Low 35.0 - 47.0 % [facility] Hemoglobin (Bld) [Mass/Vol] 9.8 g/dL Low 11.7 - 16.0 g/dL [facility] Interpretation and review of laboratory results Abnormal [facility] MCH (RBC) [Entitic mass] 24.1 pg Low 26.0 - 34.0 pg [facility] MCHC (RBC) [Mass/Vol] 28.7 % Low 30.5 - 36.0 % [facility] MCV (RBC) [Entitic vol] 84 fL 77.0 - 99.0 fL [facility] Platelet mean volume (Bld) [Entitic vol] 12.5 fL 9.0 - 12.7 fL [facility] Platelets (Bld) [#/Vol] 184 10*3/uL 140 - 440 10*3/uL [facility] RBC (Bld) [#/Vol] 4.07 10*6/uL 3.80 - 5.2 0 10*6/uL [facility] WBC (Bld) [#/Vol] 12.7 10*3/uL High 3.6 - 10.7 10*3/uL [facility] CBC WITH AUTO DIFFERENTIALon 11-13-2024 Erythrocyte distribution width (RBC) [Ratio] 20.2 % High 11.5-15.0 [facility] Comment on above: Performed By: #### L AT2792, [id number] ####Wood Experimental Mechanic: THERON PERRY ([id number])[facility] ([facility])[address] Hematocrit (Bld) [Volume fraction] 34.2 % Low 35.0-47.0 [facility] Comment on above: Performed By: #### L [id number], [id number] ####Wood Experimental Mechanic: THERON PERRY ([id number])[facility] ([facility]AB)[address] Hemoglobin (Bld) [Mass/Vol] 9.8 g/dL Low 11.7-16.0 [facility] Comment on above: Performed By: #### L [id number], [id number] ####Wood Experimental Mechanic: THERON PERRY ([id number])[facility] ([facility])[address] MCH (RBC) [Entitic mass] 24.1 pg Low 26.0-34.0 [facility] Comment on above: Performed By: #### L [id number], [id number] ####Wood Experimental Mechanic: THERON PERRY ([id number])[facility] ([facility])[address] [place] [address] MCHC 28.7 % Low 30.5-36.0 [facility] Comment on above: Performed By: #### L [id number], [id number] ####Wood Experimental Mechanic: THERON PERRY ([id number])[facility] (SBHLAB)[address] MCV (RBC) [Entitic vol] 84.0 fL Normal 77.0-99.0 [facility] Comment on above: Performed By: #### L [id number], [id number] ####Wood Experimental Mechanic: THERON PERRY ([id number])[facility] ([facility])[address] Platelet mean volume (Bld) [Entitic vol] 12.5 fL Normal 9.0-12.7 [facility] Comment on above: Performed By: #### L [id number], [id number] ####Wood Experimental Mechanic: THERON PERRY ([id number])[facility] (SBHLAB)[address] Platelets (Bld) [#/Vol] 184 10*3/uL Normal 140-440 [facility] Comment on above: Performed By: #### L [id number], [id number] ####Wood Experimental Mechanic: THERON PERRY ([id number])[facility] ([facility])[address] RBC (Bld) [#/Vol] 4.07 10*6/uL Normal 3.80-5.20 [facility] Comment on above: Performed By: #### L [id number], [id number] ####Wood Experimental Mechanic: THERON PERRY ([id number])[facility] (SBHLAB)[address] [place] [address] WBC (Bld) [#/Vol] 12.7 10*3/uL High 3.6-10.7 [facility] Comment on above: Performed By: #### L [id number], [id number] ####Wood Experimental Mechanic: THERON PERRY ([id number])[facility] ([facility])[address] [place] [address] COMPLETE URINALYSIS WITH REF LIZ TO CULTUREon 11-13-2024 BACTERIA (#/HPF) IN URINE Moderate Abnormal Negative [facility] Comment on above: Performed By: #### L AB239 ####Wood Experimental Mechanic: MARIAMA CAGLE ([id number])[facility] (SAC[facility])[address] [place] [address]#### [id number] ####Wood Experimental Mechanic: THERON PERRY ([id number])[facility] (SB[facility])[address] [place] [address] BILIRUBIN, TOTAL PRESENCE IN URINE Negative Normal Negative [facility] Comment on above: Performed By: #### L AB239 ####Wood Experimental Mechanic: MARIAMA CAGLE ([id number])[facility] ([facility])[address] [place] [address]#### [id number] ####Wood Experimental Mechanic: THERON PERRY ([id number])[facility] ([facility])[address] [place] [address] Clarity (U) Turbid Abnormal Clear [facility] Comment on above: Performed By: #### L AB239 ####Wood Experimental Mechanic: MARIAMA CAGLE ([id number])[facility] ([facility])[address] [place] [address]#### [id number] ####Wood Experimental Mechanic: THERON PERRY ([id number])[facility] ([facility])[address] [place] [address] Color (U) Yellow Normal Lt. Yellow [facility] Comment on above: Performed By: #### L AB239 ####Wood Experimental Mechanic: MARIAMA CAGLE ([id number])[facility] ([facility])[address] [place] [address]#### [id number] ####Wood Experimental Mechanic: THERON PERRY ([id number])[facility] [place] [facility] [place] [address] GLUCOSE (MG/DL) IN URINE Normal Normal Normal (<70) [facility] Comment on above: Performed By: #### L AB239 ####Wood Experimental Mechanic: MARIAMA CAGLE ([id number])[facility] ([facility])[address] [place] [address]#### [id number] ####Wood Experimental Mechanic: THERON PERRY ([id number])[facility])[address] [place] [address] HEMOGLOBIN PRESENCE IN URINE 0.2 mg/dL Abnormal Negative [facility] Comment on above: Performed By: #### L AB239 ####Wood Experimental Mechanic: MARIAMA CAGLE ([id number])[facility] ([facility])[address] [place] [address]#### [id number] ####Wood Experimental Mechanic: THERON PERRY ([id number])[facility] (SBHLAB)[address] Ketones Ql (U) Negative Normal Negative [facility] Comment on above: Performed By: #### L AB239 ####Wood Experimental Mechanic: MARIAMA CAGLE ([id number])[facility] ([facility])[address] [place] [address]#### [id number] ####Wood Experimental Mechanic: THERON PERRY ([id number])[facility] ([facility])[address] LEUKOCYTE ESTERASE PRESENCE IN URINE BY TEST STRIP 500 Sharon/uL Abnormal Negative [facility] Comment on above: Performed By: #### L AB239 ####Wood Experimental Mechanic: MARIAMA CAGLE ([id number])[facility] ([facility])[address] [place] [address]#### [id number] ####Wood Experimental Mechanic: THERON PERRY ([id number])[facility] (SB[facility]AB)[address] [place] [address] MUCUS (#/LPF) IN URINE SEDIMENT Few Normal Negative [facility] Comment on above: Performed By: #### L AB239 ####Wood Experimental Mechanic: MARIAMA CAGLE ([id number])[facility] ([facility])[address] [place] [address]#### [id number] ####Wood Experimental Mechanic: THERON PERRY ([id number])[facility] ([facility])[address] [place] [address] NITRITE PRESENCE IN URINE Positive Abnormal Negative [facility] Comment on above: Performed By: #### L AB239 ####Wood Experimental Mechanic: MARIAMA CAGLE ([id number])[facility] ([facility])[address] [place] [address]#### [id number] ####Wood Experimental Mechanic: THERON PERRY ([id number])[facility] ([facility])[address] pH (U) 6.5 [pH] Normal 5.0-8.0 [facility] Comment on above: Performed By: #### L AB239 ####Wood Experimental Mechanic: MARIAMA CAGLE ([id number])[facility] ([facility])[address] [place] [address]#### [id number] ####Wood Experimental Mechanic: THERON PERRY ([id number])[facility] ([facility])[address] [place] [address] Protein (U) [Mass/Vol] 20 mg/dL Abnormal Negative [facility] Comment on above: Performed By: #### L AB239 ####Wood Experimental Mechanic: MARIAMA CAGLE ([id number])[facility] ([facility] [place] [address]#### [id number] ####Wood Experimental Mechanic: THERON PERRY ([id number])[facility] ([facility])[address] [place] [address] RBC (#/HPF) IN URINE SEDIMENT 26-50 Abnormal 0-2 [facility] Comment on above: Performed By: #### L AB239 ####Wood Experimental Mechanic: MARIAMA CAGLE ([id number])[facility] ([facility])[address] [place] [address]#### [id number] ####Wood Experimental Mechanic: THERON PERRY ([id number])[facility] ([facility])[address] [place] [address] Specific gravity (U) [Rel density] 1.009 Normal 1.005-1.030 [facility] Comment on above: Result Comment: MEERA R COMMENTS: This specimen has been reflexed to urine culture. Performed By: #### L AB239 ####Wood Experimental Mechanic: MARIAMA CAGLE ([id number])[facility] ([facility])[address] [place] [address]#### [id number] ####Wood Experimental Mechanic: THERON PERRY ([id number])[facility] ([facility])[address] SQUAMOUS EPITHELIAL CELLS (#/HPF) IN URINE SEDIMENT Negative Normal 3-5 [facility] [employer] [facility] Comment on above: Performed By: #### L AB239 ####Wood Experimental Mechanic: MARIAMA CAGLE ([id number])[facility] (SACLAB)[address] [place] [address] [place]#### [id number] ####Wood Experimental Mechanic: THERON PERRY ([id number])[facility] (SBHLAB)[address] UROBILINOGEN (MG/DL) IN URINE Normal Normal Normal (0-1) [facility] [employer] [facility] Comment on above: Performed By: #### L AB239 ####Wood Experimental Mechanic: MARIAMA CAGLE ([id number])[facility] ([facility])[address] [place] [address]#### [id number] ####Wood Experimental Mechanic: THERON PERRY ([id number])[facility] (SB[facility]AB)[address] [place] [address] WBC (LEUKOCYTE) (#/HPF) IN URINE SEDIMENT >100 Abnormal 0-5 [facility] [employer] [facility] Comment on above: Performed By: #### L AB239 ####Wood Experimental Mechanic: MARIAMA CAGLE ([id number])[facility] ([facility])[address] [place] [address]#### [id number] ####Wood Experimental Mechanic: THERON PERRY ([id number])[facility] (SBHLAB)[address] WBC (LEUKOCYTE) CLUMPS (#/HPF) IN URINE SEDIMENT Few Abnormal Negative [facility] [employer] [facility] Comment on above: Performed By: #### L AB239 ####Wood Experimental Mechanic: MARIAMA CAGLE ([id number])[facility] ([facility])[address] [place] [address] [place]#### [id number] ####Wood Experimental Mechanic: THERON PERRY ([id number])[facility] (SB[facility]AB)[address] COMPREHENSIVE METABOLIC PANE Blaise 11-13-2024 Albumin [Mass/Vol] 3.2 g/dL Low 3.4-4.8 [facility] Comment on above: Performed By: #### Leah AB17, [id number], [id number] ####Wood Experimental Mechanic: THERON PERRY ([id number])[facility] (SB[facility]AB)[address] ALP [Catalytic activity/Vol] 66 U/L Normal 40-150 [facility] Comment on above: Performed By: #### Leah AB17, [id number], [id number] ####Wood Experimental Mechanic: THERON PERRY ([id number])[facility] (SBHLAB)[address] ALT [Catalytic activity/Vol] 11 U/L Normal <30 [facility] Comment on above: Performed By: #### Leah AB17, [id number], [id number] ####Wood Experimental Mechanic: THERON PERRY ([id number])[facility] (SBHLAB)[address] Anion gap [Moles/Vol] 10 mmol/L Normal 3-13 [facility] Comment on above: Performed By: #### Leah AB17, [id number], [id number] ####Wood Experimental Mechanic: THERON PERRY ([id number])[facility] (SB[facility]AB)[address] AST [Catalytic activity/Vol] 34 U/L High <34 [facility] Comment on above: Performed By: #### L AB17, [id number], [id number] ####Wood Experimental Mechanic: THERON PERRY ([id number])[facility] ([facility])[address] Bilirubin [Mass/Vol] 0.9 mg/dL Normal <1.2 [facility] Comment on above: Performed By: #### L AB17, [id number], [id number] ####Wood Experimental Mechanic: THERON PERRY ([id number])[facility] ([facility])[address] Calcium [Mass/Vol] 8.6 mg/dL Low 8.8-10.0 [facility] Comment on above: Performed By: #### L AB17, [id number], [id number] ####Wood Experimental Mechanic: THERON PERRY ([id number])[facility] ([facility])[address] Chloride [Moles/Vol] 105 mmol/L Normal 98-107 [facility] Comment on above: Performed By: #### L AB17, [id number], [id number] ####Wood Experimental Mechanic: THERON PERRY ([id number])[facility] ([facility])[address] CO2 [Moles/Vol] 27 mmol/L Normal 23-31 [facility] Comment on above: Performed By: #### L AB17, [id number], [id number] ####Wood Experimental Mechanic: THERON PERRY ([id number])[facility] ([facility])[address] Creatinine [Mass/Vol] 0.85 mg/dL Normal 0.57-1.11 [facility] Comment on above: Performed By: #### L AB17, [id number], [id number] ####Wood Experimental Mechanic: THERON PERRY ([id number])[facility] ([facility])[address] GLOMERULAR FILTRATION RATE ML/MIN/1.73 SQ M.PREDICTED 72.0 mL/min/1.73m*2 Normal >60.0 [facility] Comment on above: Result Comment: Calc ulation based on the Chronic Kidney Disease Epidemiology Collaboration (CKD-EPI) equation refit without adjustment for race Performed By: #### L AB17, [id number], [id number] ####Wood Experimental Mechanic: THERON PERRY ([id number])[facility] ([facility])[address] Glucose [Mass/Vol] 152 mg/dL High 82-115 [facility] Comment on above: Performed By: #### L AB17, [id number], [id number] ####Wood Experimental Mechanic: THERON PERRY ([id number])[facility] ([facility]AB)[address] Potassium [Moles/Vol] 3.1 mmol/L Low 3.5-5.1 [facility] Comment on above: Result Comment: [facility] potassium values may be up to 0.5 mmol/L lower than serum values. Performed By: #### Leha AB17, [id number], [id number] ####Wood Experimental Mechanic: THERON PERRY ([id number])[facility] ([facility]AB)[address] Protein [Mass/Vol] 6.5 g/dL Normal 6.4-8.3 [facility] Comment on above: Performed By: #### Leah AB17, [id number], [id number] ####Wood Experimental Mechanic: THERON PERRY ([id number])[facility] ([facility])[address] Sodium [Moles/Vol] 142 mmol/L Normal 136-145 [facility] Comment on above: Performed By: #### Leah AB17, [id number], [id number] ####Wood Experimental Mechanic: THERON PERRY ([id number])[facility] ([facility])[address] Urea nitrogen [Mass/Vol] 9 mg/dL Normal 9-23 [facility] Comment on above: Performed By: #### L [id number], [id number], [id number] ####[employer]: THERON PERRY ([id number])[facility] ([facility])[address] ABDOMEN PELVIS W CONTRAST on 11-13-2024 CT ABDOMEN PELVIS W CONTRAST Patient Name: DIVYA JOSEPH : 1950 Exam Date/Time: 11/13/2024 10:55 Procedure: CT ABDOMEN PELVIS W CONTRAST Ordering Provider: ACOSTA YASMIN Reason For Exam: Abdominal pain, acute, nonlocalized EXAMINATION: CT ABDOMEN PELVIS W CONTRAST CLINICAL HISTORY: Abdominal pain, acute, nonlocalized COMPARISON: None TECHNIQUE: Contiguous axial images were obtained through the abdomen and pelvis from the level of the diaphragmatic domes through the pubic symphysis following bolus administration of intravenous contrast. Dose reduction was employed with automated exposure control. FINDINGS: Included images of the lower thorax: Small bilateral pleural effusions are noted, left greater than right. There is dependent atelectasis in the bilateral lung bases. Hepatobiliary: Unremarkable liver without biliary dilation evident. The gallbladder is surgically absent. Pancreas: Unremarkable Spleen: Unremarkable Adrenal Glands: Unremarkable Kidneys and ureters: Right renal cyst is noted. There is mild right-sided hydroureter. Abdominal vasculature: Atherosclerotic wall calcifications are present without aneurysm. GI tract: No evidence of obstruction. The appendix is normal. Peritoneum and retroperitoneum: No free fluid or free air is noted. Lymph Nodes: No abdominal lymphadenopathy is evident. 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 There is grade 1 anterolisthesis of L5 on S1. IMPRESSION: 1. Small bilateral pleural effusions, left greater than right. 2. Mild right-sided hydroureter. Report Dictated on Electronically Signed By: Wong Srinivasan MD Electronically Signed Date/Time: 11/13/2024 11:22 AM EDT [facility] CT Abdomen and Pelvis W cont rast Ramakrishna 11-13-2024 [facility] CT CHEST ANGIOGRAM W AND/OR WO IV CONTRASTon 11-13-2024 CT CHEST ANGIOGRAM W AND/OR WO IV CONTRAST Patient Name: DIVYA JOSEPH : 1950 Exam Date/Time: 11/13/2024 10:55 Procedure: CT CHEST ANGIOGRAM W AND/OR WO IV CONTRAST Ordering Provider: ACOSTA YASMIN Reason For Exam: Pulmonary embolism (PE) suspected, high prob CT ANGIOGRAPHY CHEST: CLINICAL INDICATION: Pulmonary embolism (PE) suspected, high prob TECHNIQUE: Transaxial sequence from apices through the bases during dynamic intravenous infusion of contrast media, injected at a high flow rate. Multiplanar and 3D MIP reconstruction was performed concurrently on an independent viewing workstation. Dose reduction was employed with automated exposure control. COMPARISON: None FINDINGS: Lungs: No consolidation or atelectasis. No parenchymal or pleural-based mass. Pleural fluid: None. Exam quality: Examination is somewhat limited due to motion artifact from the patient's breathing. Good contrast enhancement of the vasculature. Pulmonary Arteries: Examination is limited due to motion artifact. There is decreased attenuation involving multiple segmental and subsegmental pulmonary artery supplying the right upper lobe, however evaluation is limited due to motion artifact.. Aorta: Normal caliber. Atherosclerotic calcifications. Heart: No abnormality . Coronary Arteries: coronary artery calcification. Mediastinum/Ne: No mediastinal or hilar mass. Upper abdomen: Unremarkable. Osseous structures: No abnormality. Soft tissues chest wall/Neck base: No abnormality identified. IMPRESSION: Examination is limited due to motion artifact. There is decreased attenuation involving multiple segmental and subsegmental pulmonary artery supplying the right upper lobe which could represent pulmonary emboli, however evaluation is limited due to the motion artifact. The RV/LV ratio is less than one.. . Report Dictated on Electronically Signed By: Wong Srinivasan MD Electronically Signed Date/Time: 11/13/2024 11:29 AM EDT [facility] CT HEAD WO IV CONTRASTon CT HEAD WO IV CONTRAST [facility] 1950 [id number] Exam Date/Time: 11/13/2024 10:55 Procedure: CT HEAD WO IV CONTRAST Ordering Provider: ACOSTA YASMIN Reason For Exam: Mental status change, unknown cause EXAMINATION: CT HEAD WO IV CONTRAST HISTORY: Mental status change, unknown cause - - - - - [id number] - - - - TECHNIQUE: CT head without contrast. Dose reduction was employed with automated exposure control. COMPARISON: None. RESULT: Acute change: No evidence of an acute intracranial process. Hemorrhage: No evidence of acute intracranial hemorrhage. Mass Lesion / Mass Effect: No evidence of an intracranial mass, extra-axial fluid collection, or significant localized mass effect. Chronic change: None apparent. Parenchyma: There is no significant volume loss. The brain parenchyma is otherwise within normal limits for age. Ventricles: Normal caliber and morphology. Other: The calvarium, skull base, imaged paranasal sinuses, mastoids, orbits and extracranial soft tissues are unremarkable. Visual Merchandise Manager (topogram) images: No additional findings. IMPRESSION: No CT evidence of an acute intracranial abnormality. Report Dictated on Electronically Signed By: Wong Srinivasan MD Electronically Signed Date/Time: 11/13/2024 11:15 AM EDT [facility] CT Head WO contraston 2024 [facility] Radiology Study observation (narrative) [facility] CT Head WO contrastOrdered B y: Wong Srinivasan on 11-13-2024 [facility] Work Phone: CTA Chest vessels WO and W c ontrast Ramakrishna 11-13-2024 [facility] Calcium.ionized [Moles/Vol]O rdered By: Beba Ascencio on 11-13-2024 Calcium.ionized (Bld) [Moles/Vol] 3.8 mg/dL Low 4.30 - 5.20 mg/dL [facility] Interpretation and review of laboratory results Abnormal [facility] PH, IONIZED CALCIUM 7.48 High 7.31 - 7.46 [facility] Comprehensive metabolic 1998 panelon 11-13-2024 Albumin [Mass/Vol] 3.2 g/dL Low 3.4 - 4.8 g/dL [facility] ALP [Catalytic activity/Vol] 66 U/L 40 - 150 U/L [facility] ALT [Catalytic activity/Vol] 11 U/L NINF - 30 U/L [facility] Anion gap [Moles/Vol] 10 mmol/L 3 - 13 mmol/L [facility] AST [Catalytic activity/Vol] 34 U/L [facility]L [facility] Bilirubin [Mass/Vol] 0.9 mg/dL NINF - 1.2 mg/dL [facility] Calcium [Mass/Vol] 8.6 mg/dL Low 8.8 - 10. 0 mg/dL [facility] Chloride [Moles/Vol] 105 mmol/L 98 - 10 7 mmol/L [facility] CO2 [Moles/Vol] 27 mmol/L 23 - 31 mmol/L [facility] Creatinine [Mass/Vol] 0.85 mg/dL 0.57 - 1.11 mg/dL [facility] GFR/1.73 sq M.predicted (S/P/Bld) [Vol rate/Area] 72 mL/min - PINF [facility] Glucose [Mass/Vol] 152 mg/dL High 82 - 115 mg/dL [facility] Interpretation and review of laboratory results Abnormal [facility] Potassium [Moles/Vol] 3.1 mmol/L Low 3.5 - 5.1 mmol/L [facility] Protein [Mass/Vol] 6.5 g/dL 6.4 - 8.3 g/dL [facility] Sodium [Moles/Vol] 142 mmol/L 136 - 145 mmol/L [facility] Urea nitrogen [Mass/Vol] 9 mg/dL 9 - 23 mg/dL [facility] Consulton 11-13-2024 Consult Internal Medicine: I CU Initial Consult Divya Joseph : 1950(74 y.o.) Date: November 13, 2024 Attending: Dr. Clark Subjective: Chief Complaint: Fever, abd pain HPI: This is a 74 y.o F with a PMH of CAD s/p CABG, HTN, A-fib, SSS s/p PPM, PVD, COPD, Anemia, Dysphagia, Debility, who presents to the ED today from SNF with altered mental status. Patient is not sure why she is at the hospital, states I just woke up here. Per notes patient reportedly febrile, abd pain and altered mental status. Patient reports that she has had lower abd pain, along with right rib pain, increased urgency and difficulty urinating. Patient also endorses LE swelling, chills, fatigue and shortness of breath, n/v. Patient was hypertensive in the ED. WBC 12.7, 13% bands, LA 2.6, UA grossly positive, CT A/P did show right side mild hydroureter but no obstructing stone. CTA chest also showed RUL segmetal PE. Troponin elevated. No RV strain. CX's obtained, given 2L IVF, started on CTX and admitted to the hospitalist service. This evening patient with rising lactate up to 4.0 with decreasing BP (SBP 100) and ICU consulted. Medical History[1] Surgical History[2] Family History[3] Social History Socioeconomic History Marital status: Spouse name: Not on file Number of children: Not on file Years of education: Not on file Highest education level: Not on file Occupational History Not on file Tobacco Use Smoking status: Former Types: Cigarettes Smokeless tobacco: Never Substance and Sexual Activity Alcohol use: Not Currently Drug use: Never Sexual activity: Not on file Other Topics Concern Not on file Social History Narrative Not on file Social Drivers of Health Financial Resource Strain: Not on file Food Insecurity: Not on file Transportation Needs: Not on file Physical Activity: Not on file Stress: Not on file Social Connections: Not on file Intimate Partner Violence: Not on file Housing Stability: Not on file Allergies[4] Prior to Admission medications Medication Sig Start Date End Date Taking? Authorizing Provider acetaminophen (Tylenol) 325 MG tablet 650 mg. 06/08/24 Historical Provider, aspirin 81 MG chewable tablet 06/07/24 Historical Provider, benzonatate (Tessalon) 100 MG capsule TAKE 1 CAPSULE BY MOUTH EVERY MORNING AND 2 IN THE EVENING *EMERGENCY REFILL* 08/26/23 Historical Provider, dicyclomine (Bentyl) 20 MG tablet 20 mg. 11/18/23 Historical Provider, ferrous sulfate 325 (65 Fe) MG EC tablet Take 325 mg by mouth 3 times daily (with meals). Do not crush, chew, or split. Historical Provider, folic acid (Folvite) 1 MG tablet 1 mg. 06/07/24 Historical Provider, gabapentin (Neurontin) 100 MG capsule 200 mg. 06/08/24 Historical Provider, hydrocortisone 1 % cream 04/26/24 Historical Provider, isosorbide mononitrate ER (Imdur) 30 MG 24 hr tablet 30 mg. 10/04/23 Historical Provider, Ketoconazole 1 % shampoo Apply topically. 12/09/23 Historical Provider, lisinopril 5 MG tablet 06/08/24 Historical Provider, loperamide (Imodium A-D) 2 MG tablet 2 mg. 06/08/24 Historical Provider, loratadine (Claritin) 10 MG tablet 10 mg. 06/07/24 Historical Provider, methocarbamol (Robaxin) 500 MG tablet Take 500 mg by mouth. Historical Provider, metoprolol tartrate (Lopressor) 25 MG tablet TAKE 1/2 TABLET BY MOUTH TWO TIMES A DAY 11/25/23 Historical Provider, montelukast (Singulair) 10 MG tablet 10 mg. 11/25/23 Historical Provider, nitroglycerin (Nitrostat) 0.4 MG SL tablet 0.4 mg. 06/08/24 Historical Provider, ondansetron (Zofran) 4 MG tablet Take by mouth. Historical Provider, oxybutynin XL (Ditropan-XL) 5 MG 24 hr tablet 07/09/24 Historical Provider, pantoprazole (ProtoNix) 40 MG EC tablet 40 mg. 07/27/23 Historical Provider, pravastatin (Pravachol) 80 MG tablet 80 mg. 11/25/23 Historical Provider, warfarin (Coumadin) 2 MG tablet 06/30/24 Historical Provider, warfarin (Coumadin) 2.5 MG tablet 06/30/24 Historical Provider, Objective: Oxygen Delivery - O2 Flow Rate (L/min): 3 L/min VITALS: BP (!) 82/52 Pulse 75 Temp 37.6 ?C (99.6 ?F) (Oral) Resp 24 SpO2 96% CURRENT PULSE OXIMETRY: SpO2: 96 % Review of Systems Constitutional: Positive for activity change, appetite change, chills and fatigue. Negative for diaphoresis, fever and unexpected weight change. HENT: Positive for rhinorrhea. Negative for congestion and sore throat. Eyes: Negative for visual disturbance. Respiratory: Positive for shortness of breath. Negative for cough. Cardiovascular: Positive for chest pain (right lower chest pain yesterday radiating to back) and leg swelling. Negative for palpitations. Gastrointestinal: Positive for abdominal pain (lower abd), nausea and vomiting. Negative for blood in stool, constipation and diarrhea. Genitourinary: Positive for urgency. Negative for dysuria, flank pain, frequency and hematu (more content not included)... [facility] ECG 12-LEADon 11-13-2024 ECG 12-LEAD IMPRESSION: SINUS RHYTHM ARTIFACT IN LEAD(S) Abnrm T, consider ischemia, anterolateral lds Electronically Signed On 11-13-2024 18:29:46 EDT by Carlos Dsouza [facility] ED Nursing Noteon 11-13-2024 ED Nursing Note Unit made aware of impending patient transport to the unit via broadcast. [facility] ED Provider Noteon ED Provider Note EMERGENCY DEPARTMENT ENCOUNTER Pt Name: Divya Joseph Birthdate 1950 Date of evaluation: 11/13/2024 ED Provider: Socorro Wu DO CHIEF COMPLAINT Chief Complaint Patient presents with Altered Mental Status From [facility] residential. With AMS. Pt c/o of not feeling well. Pt with abd pain. Axo x 3 pt with temp of 100.3 HISTORY OF PRESENT ILLNESS (Location/Symptom, Timing/Onset, Context/Setting, Quality, Duration, Modifying Factors, Severity) Note limiting factors. I wore appropriate PPE for the entirety of this encounter. HPI Divya Joseph is a 74 y.o. female who presents to the emergency department via EMS from a snf for altered mental status. Baseline mental status is alert and oriented x 3 according to EMS report from snf. Patient complains of abdominal pain but is unable to provide any other history. Nursing Notes were reviewed. Limitations to history: None Outside historians: None REVIEW OF SYSTEMS All pertinent ROS in HPI. PAST MEDICAL HISTORY Medical History[1] SURGICAL HISTORY Surgical History[2] CURRENT MEDICATIONS Current Discharge Medication List CONTINUE these medications which have NOT CHANGED Details acetaminophen (Tylenol) 325 MG tablet 650 mg. aspirin 81 MG chewable tablet benzonatate (Tessalon) 100 MG capsule TAKE 1 CAPSULE BY MOUTH EVERY MORNING AND 2 IN THE EVENING *EMERGENCY REFILL* dicyclomine (Bentyl) 20 MG tablet 20 mg. ferrous sulfate 325 (65 Fe) MG EC tablet Take 325 mg by mouth 3 times daily (with meals). Do not crush, chew, or split. folic acid (Folvite) 1 MG tablet 1 mg. gabapentin (Neurontin) 100 MG capsule 200 mg. hydrocortisone 1 % cream isosorbide mononitrate ER (Imdur) 30 MG 24 hr tablet 30 mg. Ketoconazole 1 % shampoo Apply topically. lisinopril 5 MG tablet loperamide (Imodium A-D) 2 MG tablet 2 mg. loratadine (Claritin) 10 MG tablet 10 mg. methocarbamol (Robaxin) 500 MG tablet Take 500 mg by mouth. metoprolol tartrate (Lopressor) 25 MG tablet TAKE 1/2 TABLET BY MOUTH TWO TIMES A DAY montelukast (Singulair) 10 MG tablet 10 mg. nitroglycerin (Nitrostat) 0.4 MG SL tablet 0.4 mg. ondansetron (Zofran) 4 MG tablet Take by mouth. oxybutynin XL (Ditropan-XL) 5 MG 24 hr tablet pantoprazole (ProtoNix) 40 MG EC tablet 40 mg. pravastatin (Pravachol) 80 MG tablet 80 mg. !! warfarin (Coumadin) 2 MG tablet !! warfarin (Coumadin) 2.5 MG tablet !! - Potential duplicate medications found. Please discuss with provider. ALLERGIES Regadenoson, Ciprofloxacin, Metronidazole, Atorvastatin, Gluten meal, Sulfa antibiotics, Wheat, Metoprolol, Niacin, and Penicillins FAMILY HISTORY Family History[3] SOCIAL HISTORY Social History[4] SCREENINGS Jhon Coma Scale Best Eye Response: Spontaneous Best Verbal Response: Oriented Best Motor Response: Follows commands Jhon Coma Scale Score: 15 PHYSICAL EXAM ED Triage Vitals [11/13/24 0933] Temp Heart Rate Resp BP 37.9 ?C (100.3 ?F) 72 24 (!) 176/58 SpO2 Temp src Heart Rate Source Patient Position 98 % -- Monitor -- BP Location FiO2 (%) -- -- Physical Exam Vitals and nursing note reviewed. Constitutional: Appearance: She is not ill-appearing. HENT: Mouth/Throat: Mouth: Mucous membranes are moist. Pharynx: Oropharynx is clear. Eyes: Extraocular Movements: Extraocular movements intact. Conjunctiva/sclera: Conjunctivae normal. Pupils: Pupils are equal, round, and reactive to light. Cardiovascular: Rate and Rhythm: Normal rate. Pulses: Normal pulses. Heart sounds: Normal heart sounds. Pulmonary: Effort: Pulmonary effort is normal. Breath sounds: Normal breath sounds. Abdominal: Comments: Flat, soft, diffusely tender with worsening tenderness to left upper quadrant. Musculoskeletal: Right lower leg: No edema. Left lower leg: No edema. Comments: 1+ bilateral nonpitting edema. No tenderness to palpation of bilateral calves. Skin: General: Skin is warm. Neurological: Mental Status: She is alert. Cranial Nerves: No cranial nerve deficit. Comments: Oriented to self and age. Psychiatric: Behavior: Behavior normal. DIAGNOSTIC RESULTS RADIOLOGY (Per Emergency Physician): Interpretation per the Radiologist below, if available at the time of this note: CT abdomen pelvis w contrast Final Result 1. Small bilateral pleural effusions, left greater than right. 2. Mild right-sided hydroureter. Report Dictated on Electronically Signed By: Wong Srinivasan MD Electronically Signed Date/Time: 11/13/2024 11:[address] chest angiogram w and/or wo IV contrast Final Result Examination is limited due to motion artifact. There is decreased attenuation involving multiple segmental and subsegmental pulmonary artery supplying the right upper lobe which could represent pulmonary emboli, however evaluation is limited due to the motion artifact. The RV/LV ratio is (more content not included)... [facility] ED Provider Note Emergency Department Encounter [facility] ED Patient: Divya Joseph : 1950 Date of Evaluation: 11/13/2024 ED Supervising Physician: Kati Acosta MD I personally evaluated Divya Joseph and made/approved the management plan and take responsibility for the patient management. This will serve as my Supervisory note and shared attestation. I did perform a substantive portion of the visit including all aspects of the Medical Decision Making. I wore appropriate PPE for the entirety of this encounter. In brief, Divya Joseph is a 74 y.o. that presents to the emergency department for altered mental status. Coming from a nursing facility because they note that she just was not acting like herself today. More fatigued than normal. Patient unable to provide much history but states that she feels like garbage. Focused exam: Chronically ill appearing female in no acute distress. Vitals reviewed and notable for borderline fever and tachypnea and hypoxia requiring supplemental oxygen via nasal cannula. Lungs diminished bilaterally. Mildly increased WOB. Abdomen soft with diffuse tenderness. No bruising or rashes noted to abdomen. Mild bilateral lower extremity edema. Patient oriented x3 but does have some tremors to all 4 extremities. Follows commands. Brief ED course/MDM: Tired appearing female in no acute distress. Vital signs reviewed and notable for borderline tach fever and tachypnea. Hemodynamically stable. Concern for infectious process in the setting of a borderline fever. With her altered mental status this could be a stroke however her last known well is well out of the window for TNK. Broad workup initiated in the emergency department. Does have an elevated lactate so ordered another liter of fluids. Meets criteria for sepsis of urosepsis. Found to have a UTI so was treated with antibiotics for this. Patient admitted for further care. Diagnostics interpreted by me: I personally discussed the patient's management with other clinicians: All diagnostic, treatment, and disposition decisions were made by myself in conjunction with the Resident. I also supervised santos portions of any procedures performed by the Resident. For all further details of the patient's emergency department visit, please see their documentation. (Comment: Please note this report has been produced using speech recognition software and may contain errors related to that system including errors in grammar, punctuation, and spelling, as well as words and phrases that may be inappropriate. If there are any questions or concerns please feel free to contact the dictating provider for clarification.) Kati Acosta MD [facility] Kati Acosta MD 11/24/24 0720 [facility] HIGH SENSITIVITY TROPONIN, S ERIAL BASELINEon 11-13-2024 TROPONIN HS SERIAL BASELINE 78 ng/L High <=14 [facility] Comment on above: Result Comment: In i ndividuals presenting with symptoms > 2h, a baseline troponin <= 5 ng/L suggests acute cardiac injury is unlikely and further serial testing is generally not indicated. Performed By: #### L [id number], [id number], [id number] ####Wood Experimental Mechanic: THERON PERRY ([id number])[facility] ([facility])[address] [place] [address] HIGH SENSITIVITY TROPONIN, S ERIAL, SECOND TESTon 11-13-2024 2H TROPONIN HS (SERIAL 2ND TROPONIN) 90 ng/L High <=14 [facility] Comment on above: Result Comment: Risi ng or falling troponin delta between 2 ??? 15 ng/L as compared to baseline value requires a 3rd serial troponin Performed By: #### L [id number] ####Wood Experimental Mechanic: THERON PERRY ([id number])[facility] ([facility])[address] [place] [address] HIGH SENSITIVITY TROPONIN, S ERIAL, THIRD TESTon 11-13-2024 4H TROPONIN HS (SERIAL 3RD TROPONIN) 152 ng/L High <=14 [facility] Comment on above: Result Comment: 4h t roponin (3rd troponin) samples collected between 1h 40 min and 2h and 20 min of the 2h troponin collection time can be utilized to interpret delta troponins as per [facility] algorithms. Samples collected outside this timeframe need to be interpreted clinically. Rising or falling troponin delta greater than 15 ng/L as compared to 2h troponin value is significant for acute cardiac injury. Performed By: #### L [id number] ####Wood Experimental Mechanic: THERON PERRY ([id number])[facility] [place] [facility])[address] LACTIC ACID WITH REFLEXon Lactate [Moles/Vol] 6.1 mmol/L Critically high 0.5-2.2 [facility] Comment on above: Performed By: #### L [id number] ####Wood Experimental Mechanic: THERON PERRY ([id number])[facility] ([facility])[address] Lactate [Moles/Vol] 4.0 mmol/L Critically high 0.5-2.2 [facility] Comment on above: Performed By: #### L [id number] ####Wood Experimental Mechanic: THERON PERRY ([id number])[facility] ([facility])[address] Lactate [Moles/Vol] 3.4 mmol/L High 0.5-2.2 [facility] Comment on above: Performed By: #### L [id number] ####Wood Experimental Mechanic: THERON PERRY ([id number])[facility] ([facility])[address] [place] [address] [place] Lactate [Moles/Vol] 2.9 mmol/L High 0.5-2.2 [facility] Comment on above: Performed By: #### L [id number] ####Wood Experimental Mechanic: THERON PERRY ([id number])[facility] ([facility])[address] LIPASEon 11-13-2024 Lipase [Catalytic activity/Vol] 4 U/L Normal <55 [facility] Comment on above: Performed By: #### L [id number], [id number], [id number], [id number] ####Wood Experimental Mechanic: THERON PERRY ([id number])[facility] ([facility])[address] Laboratory - Chemistry and C hemistry - challengeOrdered By: Cristobal Woods on 11-13-2024 Lactate [Moles/Vol] 6.1 mmol/L Critically high 0.5 - 2.2 mmol/L [facility] Laboratory - Chemistry and C hemistry - challengeon 11-13-2024 Lipase [Catalytic activity/Vol] 4 U/L NINF - 55 U/L [facility] Magnesium [Mass/Vol] 1.7 mg/dL 1.6 - 2 .6 mg/dL [facility] Lactate [Moles/Vol] 3.4 mmol/L High 0.5 - 2. 2 mmol/L [facility] Lactate [Moles/Vol] 2.9 mmol/L High 0.5 - 2. 2 mmol/L [facility] Laboratory - Chemistry and C hemistry - challengeOrdered By: Ifrah Cordova on 11-13-2024 Lactate [Moles/Vol] 4 mmol/L Critically high 0.5 - 2.2 mmol/L [facility] Laboratory - Chemistry and C hemistry - challengeOrdered By: Sheela Gómez on 11-13-2024 Base excess Calc (BldV) [Moles/Vol] 0.1 mmol/L -3.0 - 3.0 mmol/L [facility] CO2 (BldV) [Partial pressure] 41.1 mm[Hg] [facility] CO2 [Moles/Vol] 26.1 mmol/L 23.0 - 30.0 mmol/L [facility] HCO3 (Bld) [Moles/Vol] 24.9 mmol/L 21.0 - 30.0 mmol/L [facility] Oxygen (BldV) [Partial pressure] 34.3 mm[Hg] mm Hg [facility] pH (BldV) 7.4 [pH] 7.320 - 7.420 [facility] - Coagulationon 0 11-13-2024 PT Coag (Bld) [Time] 23.6 s High 9.0 - 12.0 s [facility] - Hematology and Cell countsOrdered By: Sheela Gómez on 11-13-2024 Hemoglobin (Bld) [Mass/Vol] 11.2 g/dL Low 12.0 - 16.0 g/dl [facility] - Microbiology an d Antimicrobial susceptibilityon 11-13-2024 FLUAV RNA NUNO+probe Ql (Resp) Not detected Not Detected [facility] FLUBV RNA NUNO+probe Ql (Resp) Not detected Not Detected [facility] RSV RNA NUNO+probe Ql (Resp) Not detected Not Detected [facility] SARS-CoV-2 (COVID-19) RNA NUNO+probe Ql (Resp) Not detected Not Detected [facility] MAGNESIUMon 11-13-2024 Magnesium [Mass/Vol] 1.7 mg/dL Normal 1.6-2.6 [facility] Comment on above: Result Comment: MEERA Lewis COMMENTS: Higher values can be expected in females during menses. Performed By: #### L AB103, LAB99, LAB15, [id number] ####Wood Experimental Mechanic: THERON PERRY ([id number])[facility])[address] [place] [address] MANUAL DIFFERENTIALon 2024 ANISOCYTOSIS PRESENCE IN BLOOD BY LIGHT MICROSCOPY Moderate Abnormal (none) [facility] Comment on above: Performed By: #### L [id number], [id number] ####Wood Experimental Mechanic: THERON PERRY ([id number])[facility])[address] [place] [address] BAND NEUTROPHILS TOTAL PER COUNTED LEUKOCYTES BY MANUAL COUNT 13 Normal [facility] Comment on above: Performed By: #### L [id number], [id number] ####Wood Experimental Mechanic: THERON PERRY ([id number])[facility])[address] [place] [address] BANDS 1.7 10*3/uL High <=0.0 [facility] Comment on above: Performed By: #### L [id number], [id number] ####Wood Experimental Mechanic: THERON PERRY ([id number])[facility] ([facility])[address] CELLS COUNTED TOTAL (#) IN BLOOD 100 Normal [facility] Comment on above: Performed By: #### L [id number], [id number] ####Wood Experimental Mechanic: THERON PERRY ([id number])[facility] ([facility])[address] DIFFERENTIAL METHOD Manual differential performed Normal [facility] Comment on above: Performed By: #### L [id number], [id number] ####Wood Experimental Mechanic: THERON PERRY ([id number])[facility] ([facility])[address] [place] [address] HYPOCHROMIA (PRESENCE) IN BLOOD BY LIGHT MICROSCOPY Slight Abnormal (none) [facility] Comment on above: Performed By: #### L [id number], [id number] ####Wood Experimental Mechanic: HTERON PERRY ([id number])[facility] ([facility])[address] [place] [address] LEUKOCYTE MORPHOLOGY FINDING IN BLOOD Normal Normal [facility] Comment on above: Performed By: #### L [id number], [id number] ####Wood Experimental Mechanic: THERON PERRY ([id number])[facility] ([facility])[address] [place] [address] LEUKOCYTES (10*3/UL) NUCLEATED ERYTHROCYTE ADJUST 12.7 10*3/uL High 3.6-10.7 [facility] Comment on above: Performed By: #### L [id number], [id number] ####Wood Experimental Mechanic: THERON PERRY ([id number])[facility] ([facility])[address] LYMPHOCYTES (10*3/UL) IN BLOOD BY MANUAL COUNT 0.8 10*3/uL Low 1.0-4.3 [facility] Comment on above: Performed By: #### L [id number], [id number] ####Wood Experimental Mechanic: THERON ANTONIOJT ([id number])[facility] ([facility])[address] [place] [address] [place] LYMPHOCYTES TOTAL PER COUNTED LEUKOCYTES BY MANUAL COUNT 6 Normal [facility] Comment on above: Performed By: #### L [id number], [id number] ####Wood Experimental Mechanic: THERON ORLANDO ([id number])[facility] ([facility])[address] [place] [address] [place] LYMPHOCYTES/100 LEUKOCYTES IN BLOOD BY MANUAL COUNT 6 % Low 15-45 [facility] Comment on above: Performed By: #### L [id number], [id number] ####Wood Experimental Mechanic: THERON ORLANDO ([id number])[facility] ([facility])[address] [place] [address] [place] MONOCYTES (10*3/UL) IN BLOOD BY MANUAL COUNT 0.4 10*3/uL Normal 0.0-0.9 [facility] Comment on above: Performed By: #### L [id number], [id number] ####Wood Experimental Mechanic: THERON ANTONIOJT ([id number])[facility] ([facility])[address] [place] [address] [place] MONOCYTES TOTAL PER COUNTED LEUKOCYTES BY MANUAL COUNT 3 Normal [facility] Comment on above: Performed By: #### L [id number], [id number] ####Wood Experimental Mechanic: THERON ANTONIOJT ([id number])[facility] ([facility])[address] [place] [address] [place] MONOCYTES/100 LEUKOCYTES IN BLOOD BY MANUAL COUNT 3 % Low 5-13 [facility] Comment on above: Performed By: #### L QD0728, [id number] ####Wood Experimental Mechanic: THERON ANTONIOJT ([id number])[facility] ([facility])[address] [place] [address] [place] NEUTROPHILS (SEGS+BANDS) (10*3/UL) BY MANUAL COUNT 11.6 10*3/uL High 1.8-7.0 [facility] Comment on above: Performed By: #### L [id number], [id number] ####Wood Experimental Mechanic: THERON ANTONIOJT ([id number])[facility] ([facility])[address] NEUTROPHILS BAND FORM/100 LEUKOCYTES IN BLOOD BY MANUAL COUNT 13 % High <=0 [facility] Comment on above: Performed By: #### L [id number], [id number] ####Wood Experimental Mechanic: THERON ANTONIOJT ([id number])[facility] ([facility])[address] NEUTROPHILS TOTAL PER COUNTED LEUKOCYTES BY MANUAL COUNT 78 Normal [facility] Comment on above: Performed By: #### L OD1783, [id number] ####Wood Experimental Mechanic: THERON ANTONIOJT ([id number])[facility] ([facility])[address] PLATELETS GIANT PRESENCE IN BLOOD BY LIGHT MICROSCOPY Slight Abnormal (none) [facility] Comment on above: Performed By: #### L [id number], [id number] ####Wood Experimental Mechanic: THERON MONREALLUCRECIA ([id number])[facility] ([facility])[address] POIKILOCYTOSIS (PRESENCE) IN BLOOD BY LIGHT MICROSCOPY Slight Abnormal (none) [facility] Comment on above: Performed By: #### L [id number], [id number] ####Wood Experimental Mechanic: THERON PERRY ([id number])[facility] ([facility])[address] POLYCHROMASIA IN BLOOD BY LIGHT MICROSCOPY Slight Abnormal (none) [facility] Comment on above: Performed By: #### L [id number], ZHL3014 ####Wood Experimental Mechanic: THERON PERRY ([id number])[facility] ([facility])[address] SEGEMENTED NEUTROPHILS/100 LEUKOCYTES BY MANUAL COUNT 78 % Normal 38-82 [facility] Comment on above: Performed By: #### L IV5672, [id number] ####Wood Experimental Mechanic: THERON PERRY ([id number])[facility] ([facility])[address] SEGMENTED NEUTROPHILS (10*3/UL)IN BLOOD BY MANUAL COUNT 11.6 10*3/uL High 1.8-7.5 [facility] Comment on above: Performed By: #### L [id number], [id number] ####Wood Experimental Mechanic: THERON PERRY ([id number])[facility] ([facility])[address] STOMATOCYTES IN BLOOD BY LIGHT MICROSCOPY Rare Abnormal (none) [facility] Comment on above: Performed By: #### L II5297, [id number] ####Wood Experimental Mechanic: THERON PERRY ([id number])[facility] ([facility])[address] [place] [address] Magnesium [Mass/Vol]on 11-13 [facility] Manual differential performe d Ql (Bld)Ordered By: Kay Davey on 11-13-2024 Anisocytosis Ql (Bld) Moderate Abnormal (none) [facility] Band form neutrophils (Bld) [#/Vol] 1.7 10*3/uL High NINF - 0.0 10*3/uL [facility] Band form neutrophils/100 WBC (Bld) 13 % High NINF - 0 % [facility] Bands Manual 13 [facility] Cells Counted Total (Bld) [#] 100 {cells} [facility] Differential Method Manual differential performed [facility] Giant platelets LM Ql (Bld) Slight Abnormal (none) [facility] Hypochromia Ql (Bld) Slight Abnormal (none) [facility] Interpretation and review of laboratory results Abnormal [facility] Leukocyte morphology finding Nom (Bld) Normal [facility] Lymphocytes (Bld) [#/Vol] 0.8 10*3/uL Low 1.0 - 4.3 10*3/uL [facility] [employer] Lymphocytes Manual 6 [facility] Lymphocytes/100 WBC (Bld) 6 % Low 15 - 45 % [facility] Monocytes (Bld) [#/Vol] 0.4 10*3/uL 0.0 - 0.9 10*3/uL [facility] Monocytes Manual 3 [facility] Monocytes/100 WBC (Bld) 3 % Low 5 - 13 % [facility] Neutrophils (Bld) [#/Vol] 11.6 10*3/uL High 1.8 - 7.5 10*3/uL [facility] Neutrophils Manual 78 [facility] Poikilocytosis LM Ql (Bld) Slight Abnormal (none) [facility] Polychromasia LM Ql (Bld) Slight Abnormal (none) [facility] Segmented neutrophils/100 WBC (Bld) 78 % 38 - 82 % [facility] Stomatocytes LM Ql (Bld) Rare Abnormal (none) [facility] WBC corrected for nucl RBC (Bld) [#/Vol] 12.7 10*3/uL High 3.6 - 10.7 10*3/uL [facility] NT PRO BNPon 11-13-2024 Natriuretic peptide B (Bld) [Mass/Vol] 5186 pg/mL High <125 [facility] Comment on above: Performed By: #### L AB17, [id number], [id number] ####Wood Experimental Mechanic: THERON PERRY ([id number])[facility] ([facility])[address] [place] [address] Natriuretic peptide B [Mass/ Vol]on 11-13-2024 Interpretation and review of laboratory results Abnormal [facility] Natriuretic peptide B (Bld) [Mass/Vol] 5186 pg/mL High NINF - 125 pg/mL [facility] No Panel InformationOrdered By: Cristobal Woods on 11-13-2024 Interpretation and review of laboratory results Abnormal [facility] No Panel Informationon 11-13 Interpretation and review of laboratory results Normal [facility] CV EPIPHANY [facility] 4h Troponin HS (Serial 3rd Troponin) 152 ng/L High NINF - 14 ng/L [facility] Interpretation and review of laboratory results Abnormal [facility] Interpretation and review of laboratory results Abnormal [facility] Radiology Study observation (narrative) [facility] 2h Troponin HS (Serial 2nd Troponin) 90 ng/L High NINF - 14 ng/L [facility] Interpretation and review of laboratory results Abnormal [facility] Interpretation and review of laboratory results Abnormal [facility] Interpretation and review of laboratory results Abnormal Boxed Troponin HS Serial Baseline 78 ng/L High NINF - 14 ng/L [facility] No Panel InformationOrdered By: Carlos Dsouza on 11-13-2024 P Dawes 0 degrees Boxed Work Phone: VA Interval 0 ms Boxed Work Phone: QRS Dawes 9 degrees Boxed Work Phone: QRSD Interval 88 ms [employer] Phone: [phone] QT Interval 431 ms Boxed Work Phone: QTC Interval 473 ms Boxed Work Phone: T Wave Dawes 95 degrees [employer] Phone: [employer] Phone: No Panel InformationOrdered By: Ifrah Cordova on 11-13-2024 Interpretation and review of laboratory results Abnormal [facility] No Panel InformationOrdered By: Sheela Gómez on 11-13-2024 Amount Of Oxygen 3l Boxed Interpretation and review of laboratory results Abnormal Boxed Source Of Oxygen Nasal Cannula (LPM) [employer] PHOSPHORUSon 11-13-2024 Phosphate [Mass/Vol] 3.0 mg/dL Normal 2.3-4.7 [facility] Comment on above: Performed By: #### L AB103, LAB99, LAB15, [id number] ####Wood Experimental Mechanic: THERON PERRY ([id number])[facility])[address] [place] [address] PROTHROMBIN TIMEon INR Coag (PPP) [Relative time] 2.3 {INR} High 0.9-1.1 [facility] Comment on above: Result Comment: Alex mmended Anticoagulant Therapy: SEE BELOW ----- INR of 2.0 - 3.0 : - Prophylaxis of Venous Thrombosis (high-risk surgery) - Treatment of Venous Thrombosis - Treatment of Pulmonary Embolism (Includes tissue heart valves, Acute Myocardial Infarction to prevent systemic embolism, Valvular Heart Disease, and Atrial Fibrillation) ----- INR of 2.5 - 3.5 : - Mechanical Prosthetic Valves (high risk) - If oral anticoagulant therapy is used to prevent Myocardial Infarction Performed By: #### L AB320 ####Wood Experimental Mechanic: THERON PERRY ([id number])[facility] ([facility])[address] PT Coag (PPP) [Time] 23.6 s High 9.0-12.0 [facility] Comment on above: Performed By: #### L AB320 ####Wood Experimental Mechanic: THERON PERRY ([id number])[facility] ([facility])[address] PT Coag (Bld) [Time]on 11-13 INR Coag (PPP) [Relative time] 2.3 {INR} High 0.9 - 1.1 [facility] Interpretation and review of laboratory results Abnormal [facility] Phosphate [Moles/Vol]on Phosphate [Mass/Vol] 3 mg/dL 2.3 - 4 .7 mg/dL [facility] RESPIRATORY PATHOGENS PANEL BY PCRon 11-13-2024 RESPIRATORY PATHOGENS PANEL BY PCR SARS-COV-2 Reference Not Detected Not Detected ADENOVIRUS Reference Not Detected Not Detected CORONAVIRUS HKU1 Reference Not Detected Not Detected CORONAVIRUS NL63 Reference Not Detected Not Detected CORONAVIRUS 229E Reference Not Detected Not Detected CORONAVIRUS OC43 Reference Not Detected Not Detected HUMAN METAPNEUMOVIRUS Reference Not Detected Not Detected HUMAN RHINOVIRUS/ENTEROVIRUS Reference Not Detected Not Detected INFLUENZA A Reference Not Detected Not Detected INFLUENZA B Reference Not Detected Not Detected PARAINFLUENZA 1 Reference Not Detected Not Detected PARAINFLUENZA 2 Reference Not Detected Not Detected PARAINFLUENZA 3 Reference Not Detected Not Detected PARAINFLUENZA 4 Reference Not Detected Not Detected RESPIRATORY SYNCYTIAL VIRUS Reference Not Detected Not Detected BORDETELLA PERTUSSIS Reference Not Detected Not Detected BORDETELLA PARAPERTUSSIS Reference Not Detected Not Detected CHLAMYDIA PNEUMONIAE Reference Not Detected Not Detected MYCOPLASMA PNEUMONIAE Reference Not Detected Not Detected ORDER COMMENTS: Methodology: Multiplex PCR Normal [facility] Comment on above: Performed By: #### L [id number] ####Wood Experimental Mechanic: MARIAMA CAGLE ([id number])[facility] ([facility])[address] [place] [address] Respiratory pathogens DNA an d RNA panel NUNO+non-probe (Nph)on 11-13-2024 Adenovirus Not detected Not Detected [facility] B. pertussis toxin promoter region NUNO+non-probe Ql (Nph) Not detected Not Detected [facility] Bordetella parapertussis Not detected Not Detected [facility] C. pneumoniae DNA NUNO+non-probe Ql (Lower resp) Not detected Not Detected [facility] Coronavirus 229E Not detected Not Detected [facility] Coronavirus HKU1 Not detected Not Detected [facility] Coronavirus NL63 Not detected Not Detected [facility] Coronavirus OC43 Not detected Not Detected [facility] FLUAV RNA NUNO+non-probe Ql (Nph) Not detected Not Detected [facility] FLUBV RNA NUNO+non-probe Ql (Nph) Not detected Not Detected [facility] Human Metapneumovirus Not detected Not Detected [facility] Human Rhinovirus/Enterovirus Not detected Not Detected [facility] Interpretation and review of laboratory results Normal [facility] Mycoplasma pneumoniae Not detected Not Detected [facility] Parainfluenza 1 Not detected Not Detected [facility] Parainfluenza 2 Not detected Not Detected [facility] Parainfluenza 3 Not detected Not Detected [facility] Parainfluenza 4 Not detected Not Detected [facility] Respiratory Syncytial Virus Not detected Not Detected [facility] SARS-CoV-2 (COVID-19) RNA NUNO+non-probe Ql (Nph) Not detected Not Detected [facility] SARS-COV-2, FLU A/B, AND RSV COMBOon 11-13-2024 SARS-CoV-2 (COVID-19) RNA NUNO+probe Ql (Unsp spec) SARS-COV-2 Reference Not Detected Not Detected RESPIRATORY SYNCYTIAL VIRUS Reference Not Detected Not Detected INFLUENZA A (CEPHEID) Reference Not Detected Not Detected INFLUENZA B (CEPHEID) Reference Not Detected Not Detected ORDER COMMENTS: Methodology: real-time, RT-PCR The SARS-CoV-2, Flu A/B, and RSV Combo assay is intended for in vitro diagnostic use under the FDA Emergency Use Authorization (EUA). This test has not been FDA cleared or approved. In compliance with this authorization, please visit www.fda.gov/media/276877/ download or www.fda.gov/media/672769/ download to access the applicable information sheets. [facility] Comment on above: Performed By: #### L [id number] #### Wood Experimental Mechanic: THERON PERRY ([id number]) [facility] [address] [place] [address] SARS-CoV-2, Flu A/B, and RSV Comboon 11-13-2024 Interpretation and review of laboratory results Normal [facility] URINE CULTUREon 11-13-2024 Bacteria identified Cx Nom (U) URINE CULTURE (A) Reference ESCHERICHIA COLI >100,000 CFU/mL Escherichia coli (A) Organism: ESCHERICHIA COLI Antibiotic ALLA Interpretation Status Amoxicillin / Clavulanate 4 ug/ml S F Ampicillin >=32 ug/ml R F Ampicillin / Sulbactam 16 ug/ml I F Aztreonam <=1 ug/ml S F Cefazolin 8 ug/ml R F Cefepime <=0.12 ug/ml S F Ceftriaxone <=0.25 ug/ml S F Cefuroxime axetil 4 ug/ml S F Ciprofloxacin <=0.06 ug/ml S F Ertapenem <=0.12 ug/ml S F Gentamicin <=1 ug/ml S F Levofloxacin <=0.12 ug/ml S F Meropenem <=0.25 ug/ml S F Nitrofurantoin <=16 ug/ml S F Piperacillin / Tazobactam <=4 ug/ml S F Trimethoprim / Sulfamethoxazole <=20 ug/ml S F [ S = SUSCEPTIBLE R = RESISTANT I = INTERMEDIATE S-DD = Susceptible-dose dependent NS = Non-susceptible NO = No Interpretation ] [facility] Comment on above: Performed By: #### L AB239 ####Wood Experimental Mechanic: MARIAMA CAGLE ([id number])[facility] ([facility]#### [id number] ####Wood Experimental Mechanic: THERNO PERRY ([id number])[facility])[address] [place] [address] Urinalysis complete panel (U )Ordered By: Janell Yap on 11-13-2024 Bacteria LM.HPF (Urine sed) [#/Area] Moderate Abnormal Negative /HPF [facility] Bilirubin Ql (U) Negative Negative mg/dL [facility] Clarity (U) Turbid Abnormal Clear [facility] Color (U) Yellow Lt. Yellow [facility] Epithelial cells.squamous LM.HPF (Urine sed) [#/Area] Negative [facility] Glucose Ql (U) Normal Normal (<70) mg/dL [facility] Hemoglobin Ql (U) 0.2 mg/dL Abnormal Negative [facility] Interpretation and review of laboratory results Abnormal [facility] Ketones (U) [Mass/Vol] Negative Negat laisha mg/dL [facility] Leukocyte clumps LM.HPF (Urine sed) [#/Area] Few Abnormal Negative /HPF [facility] Leukocyte esterase Test strip Ql (U) 500 Abnormal Negative Sharon/uL [facility] Mucus LM.HPF (Urine sed) [#/Area] Few Negative /LPF [facility] Nitrite Ql (U) Positive Abnormal Negative [facility] pH (U) 6.5 [pH] 5.0 - 8.0 pH [facility] Protein (U) [Mass/Vol] 20 mg/dL Abnormal Negative [facility] RBC LM.HPF (Urine sed) [#/Area] 26-50 Abnormal [facility] Specific gravity (U) [Rel density] 1.009 1.005 - 1.030 [facility] Urobilinogen (U) [Mass/Vol] Normal Normal (0-1) mg/dL [facility] WBC LM.HPF (Urine sed) [#/Area] /[HPF] Abnormal [facility] Vital signsOrdered By: Carlos Dsouza on 11-13-2024 Heart rate 72 /min bpm [facility] [employer] Work Phone: Vital signsOrdered By: Yuval Gómez on 11-13-2024 Oxygen saturation in Venous blood 64.8 % [facility] [employer] XR Chest Single viewon 11-13 [facility] Radiology Study observation (narrative) [facility] XR Chest Single viewOrdered By: Grant Bagley on 11-13-2024 [facility] [employer] Work Phone: Brain/Head without Contrasto n 11-09-2024 Brain/Head without Contrast [facility] Imaging Services [address] [place], [place] [address] Brain/Head without Contrast MR#: [id number] Acct: [id number] Name: DIVYA JOSEPH Rep #: [id number] : 1950 F 74 From: Thiago Montiel MD PCP: Dr. Rosanne Waddell DO Status: REG ER Study: Brain/Head without Contrast Date of Exam: 07/29 Exam# [id number] Ordering Dr: Shira Bryant DO PROCEDURE: BRAIN/HEAD WITHOUT CONTRAST 11/09/2024 REASON FOR EXAM: INJURY/PAIN TECHNIQUE: Procedure Code: CTBR Modality: CT Procedure: BRAIN/HEAD WITHOUT CONTRAST Coronal and Sagittal reconstruction series were provided. One or more dose reduction techniques were used (e.g., Automated exposure control, adjustment of the mA and/or kV according to patient size, use of iterative reconstruction technique. RADIATION DOSE SUMMARY: Information not provided COMPARISON: 12/09/2023 FINDINGS: Bony calvarium intact. Sinuses are clear. No intracranial mass or hemorrhage. No edema or hydrocephalus. CT/Brain/Head without Contrast IMPRESSION: No acute abnormality Reading Location: [facility] CC: Dr. Shira Bryant DO; Dr. Rosanne Waddell DO Jig Maker: Signed Normal [facility] Elbow min 3 Viewson 11-10-19 Elbow min 3 Views [facility] Imaging Services [address] [place] [address] Elbow min 3 Views MR#: [id number] Acct: [id number] Name: DIVYA JOSEPH Rep #: [id number] : 1950 F 74 From: Jayy Gabriel MD PCP: Dr. Rosanne Waddell DO Status: REG ER Study: Elbow min 3 Views Date of Exam: 11/09/24 Exam# [id number] Ordering Dr: Shira Bryant DO PROCEDURE: ELBOW MIN 3 VIEWS 11/09/2024 REASON FOR EXAM: INJURY/PAIN TECHNIQUE: Procedure Code: RADEL Modality: DX Procedure: ELBOW MIN 3 VIEWS Laterality: Right COMPARISON: None FINDINGS: Osseous: No acute fracture or malalignment of the right elbow is seen. No bone lesion or periosteal reaction is seen. Soft tissues: No radiographic evidence for significant elbow joint effusion. Soft tissue injury can not be assessed by this technique. RAD/Elbow min 3 Views IMPRESSION: No radiographic evidence of an acute osseous injury or malalignment at the right elbow. - Other findings discussed above. Reading Location: [id number] CC: Dr. Shira Bryant DO; Dr. Rosanne Waddell DO Jig Maker: Signed Normal [facility] Emergency Department Summary on 11-09-2024 Emergency Department Summary [facility] Medical Records Department [address] [place] [address] Emergency Department Summary 11/09/24 MR#: [id number] Acct: [id number] Name: DIVYA JOSEPH Rep #: [id number] : 1950 74 From: Shira Bryant DO PCP: Dr. Rosanne Waddell DO Status:DEP ER Location: ED HPI History of Present Illness Chief Complaint: Fall Narrative Narrative: Patient is a 74-year-old female with history of ataxia, COPD, atrial fibrillation (on Coumadin), sick sinus syndrome status post cardiac pacemaker, ischemic colitis, restless leg syndrome and coronary artery disease presenting for evaluation after mechanical fall. Patient states she was trying to try on a sweater while seated in the wheelchair. She crossed her legs and ultimately fell out of the wheelchair. She fell towards her bed and her right elbow struck the bed as she tried to catch herself. She then hit her head on the way down. She denies any loss of conscious. She states she has some chronic right-sided neck pain that has been going on for months. She does have some bruising over her right elbow. She was told at her facility that she had to come in for evaluation which is why she is here. She has no acute complaints at this time. Denies any associated numbness or tingling. Eyes any vision changes. No report of any nausea or vomiting. [facility] Medical History Ataxia Pacemaker malfunction Loss of hearing Wears glasses Wears dentures Post-menopausal Depression Diabetes Ambulates with cane Arthritis Low iron Anemia Back pain Syncope Gastric reflux Former smoker Asthma COPD (chronic obstructive pulmonary disease) Shortness of breath on exertion History of atrial fibrillation History of echocardiogram History of rheumatic fever Cardiology follow-up encounter Paroxysmal A-fib Sick sinus syndrome Presence of cardiac pacemaker Ischemic colitis Irritable bowel Restless legs High cholesterol History of stress test Pacemaker Acute colitis Acute blood loss anemia Presence of stent in coronary artery 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 Carotid artery disease Atherosclerosis of barrow coronary artery of barrow heart without angina pectoris Pacemaker Cerebrovascular disease Sick sinus syndrome with tachycardia HLD (hyperlipidemia) Home Medications ???Medication ???Instructions ???Recorded ???Last Taken ???Type aspirin 81 mg chewable tablet 81 mg PO DAILY@0800 health 9 05/22/23 History maintenance montelukast 10 mg tablet 10 mg PO QPM allergy 02/22/1911/06 21:00 History handicap placard #1 ea 10/13/20 Unknown Rx pantoprazole 40 mg tablet,delayed 40 mg PO DAILY stomach #90 tabs 0 06/29/23 Unknown Rx release pravastatin 80 mg tablet 80 mg PO QHS #90 tabs 07/08/23 Unk nown Rx dicyclomine 20 mg tablet 20 mg PO TID #270 tabs 11/22/23 Un known Rx ketoconazole 2 % shampoo 1 applic topical .twice a week 06/28 Unknown History sores nitroglycerin 0.4 mg sublingual 0.4 mg sublingual Q5-15M Chest Tarik n 12/09/23 Unknown History tablet metoprolol tartrate 25 mg tablet 12.5 mg (1/2 x 25 mg) PO BID #30 1 Unknown Rx tabs folic acid 1 mg tablet 1 mg PO QDAY 07/12/24 Unknown Hist ory gabapentin 100 mg capsule 200 mg PO TID 07/12/24 Unknown His tory acetaminophen 325 mg tablet 650 mg PO Q6H PRN fever or pain Unknown History benzonatate 100 mg capsule 100 mg PO BID PRN 09/27/24 Unknown History fesoterodine 4 mg tablet,extended 4 mg PO QDAY 09/27/24 Unknown His tory release 24 hr hydrocortisone 1 % topical cream 1 applic topical 09/27/24 Unknown History isosorbide mononitrate 30 mg 30 mg PO QDAY 09/27/24 Unknown His tory tablet,extended release 24 hr lisinopril 5 mg tablet 5 mg PO QDAY 09/27/24 Unknown Hist ory loperamide 2 mg tablet 2 mg PO Q6H PRN 09/27/24 Unknown H istory loratadine 10 mg tablet 10 mg PO QDAY 09/27/24 Unknown His tory ferrous sulfate 325 mg (65 mg 325 mg PO DAILY 11/09/24 Unknown H istory iron) tablet (Feosol) oxybutynin chloride 5 mg tablet 5 mg PO DAILY 11/09/24 Unknown His tory warfarin 2 mg tablet 2 mg PO QHS 11/09/24 Unknown Histo ry warfarin 2.5 mg tablet 2.5 mg PO QHS blood thinner Unknown History Allergy/AdvReac Type Severity Reaction Status Date / Time ciprofloxacin (From Cipro) Allergy Intermediate Itching Verified 11/09/24 18:59 atorvastatin calcium (From Allergy Hives Verified 11/09/24 18:59 Lipitor) gluten Allergy Food Verified 11/09/24 18:59 Allergy metoprolol succinate (From Allergy Rash Verified 11/09/24 18:59 Toprol XL) niacin (From Niaspan Allergy Rash Verified 11/09/24 18:59 Extended-Release) Penicillins Allergy Aidan (more content not included)... Normal [facility] normalized rat io (INR) calculationOrdered By: Shira Bryant on 11-09-2024 INR Coag (Bld) [Relative time] 2.5 {INR} [facility] Prothrombin Time w/INRon INR Coag (PPP) [Relative time] 2.5 {INR} Normal [facility] Comment on above: Performed By: #### L [id number] #### [facility] [address] [place], [address] PT Coag (PPP) [Time] 27.1 s High 11.7-14.9 [facility] Comment on above: Performed By: #### L [id number] #### [facility] [address] [place], [place], [address] Prothrombin timeOrdered By: Shira Bryant on 11-09-2024 PT Coag (PPP) [Time] 27.1 s High 11.7-14.9 [facility] Spine Cervical without Contr ason 11-09-2024 Spine Cervical without Contras [facility] Imaging Services [address] [place] [address] Spine Cervical without Contras MR#: [id number] Acct: [id number] Name: DIVYA JOSEPH Rep #: [id number] : 1950 F 74 From: Thiago Montiel MD PCP: Dr. Rosanne Waddell DO Status: REG ER Study: Spine Cervical without Contras Date of Exam: 0 11/09/24 Exam# [id number] Ordering Dr: Shira Bryant DO PROCEDURE: SPINE CERVICAL WITHOUT CONTRAS 11/09/2024 REASON FOR EXAM: INJURY/PAIN TECHNIQUE: Procedure Code: CTSPC Modality: CT Procedure: SPINE CERVICAL WITHOUT CONTRAS Coronal and Sagittal reconstruction series were provided. One or more dose reduction techniques were used (e.g., Automated exposure control, adjustment of the mA and/or kV according to patient size, use of iterative reconstruction technique. RADIATION DOSE SUMMARY: CTDlvol: 62 mGy DLP: 1153 mGycm FINDINGS: Normal cervical vertebral body height and alignment. Disc space narrowing at C5-6 and C6-7. No compression deformity. Normal C2 and C1 vertebra. Skull base appears intact. No fractures noted of the pedicles or lamina. No discrete soft tissue masses. CT/Spine Cervical without Contras IMPRESSION: No acute abnormality Reading [facility] CC: Dr. Shira Bryant DO; Dr. Rosanne Waddell DO Jig Maker: Signed Normal [facility] BASIC METABOLIC PANELon 10-06 Anion gap [Moles/Vol] 5 mmol/L Normal 3-13 [facility] Comment on above: Performed By: #### L AB20, [id number], [id number], LAB15 ####[employer] Experimental Mechanic: THERON PERRY ([id number])[facility] ([facility])[address] Calcium [Mass/Vol] 8.4 mg/dL Low 8.8-10.0 [facility] Comment on above: Performed By: #### L AB20, [id number], [id number], LAB15 ####Wood Experimental Mechanic: THERON PRERY ([id number])[facility] ([facility])[address] Chloride [Moles/Vol] 107 mmol/L Normal 98-107 [facility] Comment on above: Performed By: #### L AB20, [id number], [id number], LAB15 ####Wood Experimental Mechanic: THERON PERRY ([id number])[facility] (SBHLAB)[address] CO2 [Moles/Vol] 30 mmol/L Normal 23-31 [facility] Comment on above: Performed By: #### L AB20, [id number], [id number], LAB15 ####Wood Experimental Mechanic: THERON PERRY ([id number])[facility] (HLAB)[address] Creatinine [Mass/Vol] 0.76 mg/dL Normal 0.57-1.11 [facility] Comment on above: Performed By: #### L AB20, [id number], [id number], LAB15 ####Wood Experimental Mechanic: THERON PERRY ([id number])[facility] (SB[facility])[address] [place] [address] [place] GLOMERULAR FILTRATION RATE ML/MIN/1.73 SQ M.PREDICTED 82.3 mL/min/1.73m*2 Normal >60.0 [facility] Comment on above: Result Comment: Calc ulation based on the Chronic Kidney Disease Epidemiology Collaboration (CKD-EPI) equation refit without adjustment for race Performed By: #### L AB20, [id number], [id number], LAB15 ####Wood Experimental Mechanic: THERON PERRY ([id number])[facility] (SBHLAB)[address] Glucose [Mass/Vol] 114 mg/dL Normal 82-115 [facility] Comment on above: Performed By: #### L AB20, [id number], [id number], LAB15 ####Wood Experimental Mechanic: THERON PERRY ([id number])[facility] (SBHLAB)[address] Potassium [Moles/Vol] 4.1 mmol/L Normal 3.5-5.1 [facility] Comment on above: Result Comment: [facility] potassium values may be up to 0.5 mmol/L lower than serum values. Performed By: #### L AB20, [id number], [id number], LAB15 ####Wood Experimental Mechanic: THERON PERRY ([id number])[facility] (SBHLAB)[address] Sodium [Moles/Vol] 142 mmol/L Normal 136-145 [facility] Comment on above: Performed By: #### L AB20, [id number], [id number], LAB15 ####Wood Experimental Mechanic: THERON PERRY ([id number])[facility] (SBHLAB)[address] Urea nitrogen [Mass/Vol] 9 mg/dL Normal 9-23 [facility] Comment on above: Performed By: #### L AB20, [id number], [id number], LAB15 ####Wood Experimental Mechanic: THERON PERRY ([id number])[facility] (SBHLAB)[address] Basic metabolic 1998 panelon 10-28-2024 Anion gap [Moles/Vol] 5 mmol/L 3 - 13 mmol/L [facility] Calcium [Mass/Vol] 8.4 mg/dL Low 8.8 - 10. 0 mg/dL [facility] Chloride [Moles/Vol] 107 mmol/L 98 - 10 7 mmol/L [facility] CO2 [Moles/Vol] 30 mmol/L 23 - 31 mmol/L [facility] Creatinine [Mass/Vol] 0.76 mg/dL 0.57 - 1.11 mg/dL [facility] [employer] GFR/1.73 sq M.predicted (S/P/Bld) [Vol rate/Area] 82.3 mL/min - PINF [facility] Comment on above: Calculation based on the Chronic Kidney Disease Epidemiology Collaboration (CKD-EPI) equation refit without adjustment for race Glucose [Mass/Vol] 114 mg/dL 82 - 115 mg/dL [facility] [employer] Potassium [Moles/Vol] 4.1 mmol/L 3.5 - 5.1 mmol/L [facility] [employer] Comment on above: Plasma potassium jason ues may be up to 0.5 mmol/L lower than serum values. Sodium [Moles/Vol] 142 mmol/L 136 - 145 mmol/L [facility] [employer] Urea nitrogen [Mass/Vol] 9 mg/dL 9 - 23 mg/dL [facility] [employer] CBC W Auto Differential pane l (Bld)Ordered By: Camila Stauffer on 10-28-2024 Basophils (Bld) [#/Vol] 0 10*3/uL 0.0 - 0.2 10*3/uL [facility] [employer] Basophils/100 WBC (Bld) 0.5 % 0.0 - 2.0 % [facility] [employer] Eosinophils (Bld) [#/Vol] 0.3 10*3/uL 0.0 - 0.5 10*3/uL [facility] [employer] Eosinophils/100 WBC (Bld) 5.2 % 0.0 - 6.0 % [facility] Erythrocyte distribution width (RBC) [Ratio] 15.5 % High 11.5 - 15.0 % [facility] [employer] Hematocrit (Bld) [Volume fraction] 28.2 % Low 35.0 - 47.0 % [facility] Hemoglobin (Bld) [Mass/Vol] 8.2 g/dL Low 11.7 - 16.0 g/dL [facility] [employer] Immature granulocytes (Bld) [#/Vol] 0 10*3/uL NINF - 0.1 10*3/uL [facility] [employer] Immature granulocytes/100 WBC (Bld) 0.4 % 0.0 - 2.0 % [facility] Interpretation and review of laboratory results Abnormal [facility] [employer] Lymphocytes (Bld) [#/Vol] 1.3 10*3/uL 1.0 - 4.3 10*3/uL [facility] Lymphocytes/100 WBC (Bld) 22.9 % 15.0 - 45.0 % [facility] MCH (RBC) [Entitic mass] 23.6 pg Low 26.0 - 34.0 pg [facility] MCHC (RBC) [Mass/Vol] 29.1 % Low 30.5 - 36.0 % [facility] MCV (RBC) [Entitic vol] 81 fL 77.0 - 99.0 fL [facility] Monocytes (Bld) [#/Vol] 0.4 10*3/uL 0.0 - 0.9 10*3/uL [facility] Monocytes/100 WBC (Bld) 7.9 % 5.0 - 13.0 % [facility] Neutrophils (Bld) [#/Vol] 3.5 10*3/uL 1.8 - 7.5 10*3/uL [facility] Neutrophils/100 WBC (Bld) 63.1 % 38.0 - 82.0 % [facility] Nucleated RBC/100 WBC (Bld) [Ratio] 0 % [facility] Platelet mean volume (Bld) [Entitic vol] 12.5 fL 9.0 - 12.7 fL [facility] Platelets (Bld) [#/Vol] 202 10*3/uL 140 - 440 10*3/uL [facility] RBC (Bld) [#/Vol] 3.48 10*6/uL Low 3.80 - 5.2 0 10*6/uL [facility] WBC (Bld) [#/Vol] 5.6 10*3/uL 3.6 - 10.7 10*3/uL [facility] CBC WITH AUTO DIFFERENTIALon 10-28-2024 Basophils (Bld) [#/Vol] 0.0 10*3/uL Normal 0.0-0.2 [facility] Comment on above: Performed By: #### L [id number] ####[employer] Experimental Mechanic: THERON PERRY ([id number])[facility] ([facility])[address] [place] [address] Basophils/100 WBC (Bld) 0.5 % Normal 0.0-2.0 [facility] Comment on above: Performed By: #### L [id number] ####[employer] Experimental Mechanic: THERON MONREALLUCRECIA ([id number])[facility] [place] (SBHLAB)[address] Eosinophils (Bld) [#/Vol] 0.3 10*3/uL Normal 0.0-0.5 [facility] Comment on above: Performed By: #### L [id number] ####[employer] Experimental Mechanic: THERON PERRY ([id number])[facility] (SBAB)[address] Eosinophils/100 WBC (Bld) 5.2 % Normal 0.0-6.0 [facility] Comment on above: Performed By: #### L [id number] ####[employer] Experimental [employer]ic: THERON MONREALLUCRECIA ([id number])[facility] ([facility])[address] [place] [address] Erythrocyte distribution width (RBC) [Ratio] 15.5 % High 11.5-15.0 [facility] Comment on above: Performed By: #### L [id number] ####[employer] Experimental [employer]ic: THERON MONREALLUCRECIA ([id number])[facility] ([facility])[address] [place] [address] Hematocrit (Bld) [Volume fraction] 28.2 % Low 35.0-47.0 [facility] Comment on above: Performed By: #### L [id number] ####[employer] Experimental Mechanic: THERON PERRY ([id number])[facility] [place] [address] Hemoglobin (Bld) [Mass/Vol] 8.2 g/dL Low 11.7-16.0 [facility] Comment on above: Performed By: #### L [id number] ####[employer] Experimental Mechanic: THERON PERRY ([id number])[facility] IMMATURE GRANS % 0.4 % Normal 0.0-2.0 [facility] Comment on above: Performed By: #### L [id number] ####[employer] Experimental Mechanic: THERON PERRY ([id number])[facility] (SBHLAB)[address] IMMATURE GRANS ABSOLUTE 0.0 10*3/uL Normal <0.1 [facility] Comment on above: Performed By: #### L [id number] ####[employer] Experimental Mechanic: THERON MONREALLUCRECIA ([id number])[facility] (SBHLAB)[address] Lymphocytes (Bld) [#/Vol] 1.3 10*3/uL Normal 1.0-4.3 [facility] Comment on above: Performed By: #### L [id number] ####[employer] Experimental Mechanic: THERON MONREALLUCRECIA ([id number])[facility] (SBHLAB)[address] Lymphocytes/100 WBC (Bld) 22.9 % Normal 15.0-45.0 [facility] Comment on above: Performed By: #### L [id number] ####[employer] Experimental Mechanic: THERON MONREALLUCRECIA ([id number])[facility] (SBHLAB)[address] MCH (RBC) [Entitic mass] 23.6 pg Low 26.0-34.0 [facility] Comment on above: Performed By: #### L [id number] ####[employer] Experimental [employer]ic: THERON PERRY ([id number])[facility] (SBHLAB)[address] MCHC 29.1 % Low 30.5-36.0 [facility] Comment on above: Performed By: #### L [id number] ####[employer] Experimental Mechanic: THERON PERRY ([id number])[facility] (SBHLAB)[address] MCV (RBC) [Entitic vol] 81.0 fL Normal 77.0-99.0 [facility] Comment on above: Performed By: #### L [id number] ####[employer] Experimental Mechanic: THERON PERRY ([id number])[facility] (SBHLAB)[address] Monocytes (Bld) [#/Vol] 0.4 10*3/uL Normal 0.0-0.9 [facility] Comment on above: Performed By: #### L [id number] ####[employer] Experimental Mechanic: THERON PERRY ([id number])[facility] (SBHLAB)[address] Monocytes/100 WBC (Bld) 7.9 % Normal 5.0-13.0 [facility] Comment on above: Performed By: #### L [id number] ####[employer] Experimental Mechanic: THERON PERRY ([id number])[facility] ([facility])[address] NEUTROPHILS ABSOLUTE 3.5 10*3/uL Normal 1.8-7.5 [facility] Comment on above: Performed By: #### L [id number] ####Wood Experimental Mechanic: THERON PERRY ([id number])[facility] ([facility])[address] Neutrophils/100 WBC (Bld) 63.1 % Normal 38.0-82.0 [facility] Comment on above: Performed By: #### L [id number] ####[employer] Experimental Mechanic: THERON PERRY ([id number])[facility] ([facility])[address] NRBC 0.0 /100 WBCs Normal 0.0-2.0 [facility] Comment on above: Performed By: #### L [id number] ####Wood Experimental Mechanic: THERON PERRY ([id number])[facility] ([facility])[address] [place] [address] [place] Platelet mean volume (Bld) [Entitic vol] 12.5 fL Normal 9.0-12.7 [facility] Comment on above: Performed By: #### L [id number] ####Wood Experimental Mechanic: THERON PERRY ([id number])[facility] [place] (SB[facility])[address] Platelets (Bld) [#/Vol] 202 10*3/uL Normal 140-440 [facility] Comment on above: Performed By: #### L [id number] ####Wood Experimental Mechanic: THERON PERRY ([id number])[facility] ([facility])[address] RBC (Bld) [#/Vol] 3.48 10*6/uL Low 3.80-5.20 [facility] Comment on above: Performed By: #### L [id number] ####Wood Experimental Mechanic: THERON PERRY ([id number])[facility] ([facility])[address] WBC (Bld) [#/Vol] 5.6 10*3/uL Normal 3.6-10.7 [facility] Comment on above: Performed By: #### L [id number] ####Wood Experimental Mechanic: THERON PERRY ([id number])[facility] [place] (SB[facility])[address] COVID-19, Flu A/B, and RSV C omboon 10-28-2024 Interpretation and review of laboratory results Normal [facility] ECG 12-LEADon 10-28-2024 ECG 12-LEAD IMPRESSION: Atrial-paced complexes Borderline repolarization abnormality No previous available for comparison Electronically Signed On 10-28-2024 10:42:45 EDT by Carlos Dsouza Normal [facility] ED Nursing Noteon 10-28-2024 ED Nursing Note Patient presents via [facility] from [facility] for chest pain that started this morning. Patient has pacemaker and paced rhythm noted on monitor. Patient was given 3 nitroglycerin SL by EMS enroute. Patient took 1 81 mg Aspirin this morning with scheduled medications. Patient states pain is 2-3/10 upon arrival. Frequent, strong cough noted. Patient states she has had cough for several days. Patient alert and oriented. States she is in snf due to frequent falls and inability to care for self at home. Normal [facility] ED Provider Noteon ED Provider Note EMERGENCY DEPARTMENT ENCOUNTER Pt Name: Divya Joseph Birthdate 1950 Date of evaluation: 10/28/2024 ED Provider: Carlos Dsouza MD CHIEF COMPLAINT Chief Complaint Patient presents with Chest Pain HISTORY OF PRESENT ILLNESS (Location/Symptom, Timing/Onset, Context/Setting, Quality, Duration, Modifying Factors, Severity) Note limiting factors. I wore appropriate PPE for the entirety of this encounter. HPI Divya Joseph is a 74 y.o. female who presents to the emergency department with chief complaint of chest pain. Patient states she has chest pain across her chest, worse with rolling over to the right side of the left side. States when she is lying on her right side she feels an empty feeling in her left chest and vice versa. Denies shortness of breath although she does have a cough. Denies fevers. Denies abdominal pain nausea vomiting. Denies acute back pain. States she has chronic numbness and tingling in her legs, not a new symptom for her. Nursing Notes were reviewed. Limitations to history: None Outside historians: None REVIEW OF SYSTEMS Review of Systems: Pertinent positives as above per history of present illness. Other systems reviewed and found to be negative to a total of 10 systems reviewed. PAST MEDICAL HISTORY Medical History[1] SURGICAL HISTORY Surgical History[2] CURRENT MEDICATIONS Previous Medications ACETAMINOPHEN (TYLENOL) 325 MG TABLET 650 mg. ASPIRIN 81 MG CHEWABLE TABLET BENZONATATE (TESSALON) 100 MG CAPSULE TAKE 1 CAPSULE BY MOUTH EVERY MORNING AND 2 IN THE EVENING *EMERGENCY REFILL* DICYCLOMINE (BENTYL) 20 MG TABLET 20 mg. FERROUS SULFATE 325 (65 FE) MG EC TABLET Take 325 mg by mouth 3 times daily (with meals). Do not crush, chew, or split. FOLIC ACID (FOLVITE) 1 MG TABLET 1 mg. GABAPENTIN (NEURONTIN) 100 MG CAPSULE 200 mg. HYDROCORTISONE 1 % CREAM ISOSORBIDE MONONITRATE ER (IMDUR) 30 MG 24 HR TABLET 30 mg. KETOCONAZOLE 1 % SHAMPOO Apply topically. LISINOPRIL 5 MG TABLET LOPERAMIDE (IMODIUM A-D) 2 MG TABLET 2 mg. LORATADINE (CLARITIN) 10 MG TABLET 10 mg. METHOCARBAMOL (ROBAXIN) 500 MG TABLET Take 500 mg by mouth. METOPROLOL TARTRATE (LOPRESSOR) 25 MG TABLET TAKE 1/2 TABLET BY MOUTH TWO TIMES A DAY MONTELUKAST (SINGULAIR) 10 MG TABLET 10 mg. NITROGLYCERIN (NITROSTAT) 0.4 MG SL TABLET 0.4 mg. ONDANSETRON (ZOFRAN) 4 MG TABLET Take by mouth. OXYBUTYNIN XL (DITROPAN-XL) 5 MG 24 HR TABLET PANTOPRAZOLE (PROTONIX) 40 MG EC TABLET 40 mg. PRAVASTATIN (PRAVACHOL) 80 MG TABLET 80 mg. WARFARIN (COUMADIN) 2 MG TABLET WARFARIN (COUMADIN) 2.5 MG TABLET ALLERGIES Regadenoson, Ciprofloxacin, Metronidazole, Atorvastatin, Gluten meal, Sulfa antibiotics, Wheat, Metoprolol, Niacin, and Penicillins FAMILY HISTORY Family History[3] SOCIAL HISTORY Social History[4] SCREENINGS [place] Coma Scale Best Eye Response: Spontaneous Best Verbal Response: Oriented Best Motor Response: Follows commands [place] Coma Scale Score: 15 HEART Score History: Slightly suspicious ECG: Normal Age: 65+ Risk Factors: >2 risk factors or hx of atherosclerotic disease Troponin: Less than or equal to normal limit HEART Score: 4 PHYSICAL EXAM ED Triage Vitals [10/28/24 1008] Temp Heart Rate Resp BP 36.8 ?C (98.3 ?F) 61 18 136/87 SpO2 Temp Source Heart Rate Source Patient Position 96 % Oral -- -- BP Location FiO2 (%) -- -- Physical Exam: Vital signs reviewed in nurse's notes. Patient is nontoxic in appearance. No respiratory distress. Head: Normocephalic, atraumatic Eyes: Pupils are equal, round and reactive to light. EOMI. Conjunctiva clear. Sclera anicteric ENT: Mucous membranes moist. Throat shows no erythema exudates or edema. Neck: No anterior adenopathy. No tenderness or stiffness. Chest: Nontender. No obvious flail segments. Lungs: Clear to auscultation bilaterally. No wheezing rales or rhonchi. Heart: Regular rate and rhythm. No audible murmur or gallop. Abdomen: Soft, nondistended, nontender. No rebound or guarding. No signs of peritonitis. Back: No midline tenderness. No flank area tenderness. Extremities: No gross deformity. No obvious tenderness. No obvious joint swelling. No calf tenderness. Negative Homans sign. Good distal pulses in all 4 extremities. Neurologic: Alert and fully oriented. No focal motor, sensory deficits in all 4 extremities. Cranial nerves II through XII grossly intact. Cerebellar testing intact. Patient with paresthesias of her lower extremities but no true sensory deficits. NIH stroke scale is 0. DIAGNOSTIC RESULTS Procedures/EKG: Atrial paced complexes. Rate of 60. Normal axis. T wave inversion in the anterior leads. No old EKG available for comparison. Today's EKG interpreted by this examiner. EKG was reviewed by myself. Physician EKG interpretation can be found in [facility] RADIOLOGY (Per Emergency Physician): Chest x-ray: Increased markings (more content not included)... Normal [facility] HEPATIC FUNCTION PANELon Albumin [Mass/Vol] 3.1 g/dL Low 3.4-4.8 [facility] Comment on above: Performed By: #### L AB20, [id number], [id number], LAB15 ####Wood Experimental Mechanic: THERON PERRY ([id number])[facility] ([facility])[address] [place] [address] ALP [Catalytic activity/Vol] 63 U/L Normal 40-150 [facility] Comment on above: Performed By: #### L AB20, [id number], [id number], LAB15 ####Wood Experimental Mechanic: THERON PERRY ([id number])[facility] ([facility])[address] [place] [address] ALT [Catalytic activity/Vol] 8 U/L Normal <30 [facility] Comment on above: Performed By: #### L AB20, [id number], [id number], LAB15 ####Wood Experimental Mechanic: THERON PERRY ([id number])[facility] ([facility])[address] [place] [address] AST [Catalytic activity/Vol] 23 U/L Normal <34 [facility] Comment on above: Performed By: #### L AB20, [id number], [id number], LAB15 ####Wood Experimental Mechanic: THERON PERRY ([id number])[facility] ([facility])[address] Bilirubin [Mass/Vol] 0.3 mg/dL Normal <1.2 [facility] Comment on above: Performed By: #### L AB20, [id number], [id number], LAB15 ####Wood Experimental Mechanic: THERON PERRY ([id number])[facility] Bilirubin.indirect [Mass/Vol] 0.1 mg/dL Normal <0.5 [facility] Comment on above: Performed By: #### L AB20, [id number], [id number], LAB15 ####Wood Experimental Mechanic: THERON PERRY ([id number])[facility] ([facility])[address] Protein [Mass/Vol] 6.2 g/dL Low 6.4-8.3 [facility] Comment on above: Result Comment: Seru m protein values are higher than plasma values. Samples from recumbent persons are lower by up to 0.5 g/dL as compared to ambulatory persons. After 60 years values are lower by up to 0.2 g/dL. Performed By: #### L AB20, [id number], [id number], LAB15 ####Wood Experimental Mechanic: THERON PERRY ([id number])[facility] HIGH SENSITIVITY TROPONIN, S ERIAL BASELINEon 10-28-2024 TROPONIN HS SERIAL BASELINE 10 ng/L Normal <=14 [facility] Comment on above: Result Comment: In i ndividuals presenting with symptoms > 2h, a baseline troponin <= 5 ng/L suggests acute cardiac injury is unlikely and further serial testing is generally not indicated. Performed By: #### L AB20, [id number], [id number], LAB15 ####Wood Experimental Mechanic: THERON PERRY ([id number])[facility] HIGH SENSITIVITY TROPONIN, S ERIAL, SECOND TESTon 10-28-2024 2H TROPONIN HS (SERIAL 2ND TROPONIN) 12 ng/L Normal <=14 [facility] Comment on above: Result Comment: Risi ng or falling troponin delta below 2 ng/L as compared to baseline value suggests that acute cardiac injury is unlikely. Performed By: #### L [id number] ####Wood Experimental Mechanic: THERON PERRY ([id number])[facility] ([facility])[address] [place] [address] Hepatic function 2000 panelo n 10-28-2024 Albumin [Mass/Vol] 3.1 g/dL Low 3.4 - 4.8 g/dL [facility] ALP [Catalytic activity/Vol] 63 U/L 40 - 150 U/L [facility] ALT [Catalytic activity/Vol] 8 U/L NINF - 30 U/L [facility] AST [Catalytic activity/Vol] 23 U/L [facility] 34 U/L [facility] Bilirubin [Mass/Vol] 0.3 mg/dL NINF - 1.2 mg/dL [facility] Bilirubin.conjugated [Mass/Vol] 0.1 mg/dL NINF - 0.5 mg/dL [facility] Protein [Mass/Vol] 6.2 g/dL Low 6.4 - 8.3 g/dL [facility] Comment on above: Serum protein values are higher than plasma values. Samples from recumbent persons are lower by up to 0.5 g/dL as compared to ambulatory persons. After 60 years values are lower by up to 0.2 g/dL. Laboratory - Microbiology an d Antimicrobial susceptibilityon 10-28-2024 FLUAV RNA NUNO+probe Ql (Resp) Not detected Not Detected [facility] FLUBV RNA NUNO+probe Ql (Resp) Not detected Not Detected [facility] RSV RNA NUNO+probe Ql (Resp) Not detected Not Detected [facility] SARS-CoV-2 (COVID-19) RNA NUNO+probe Ql (Resp) Not detected Not Detected [facility] SARS-CoV-2 (COVID-19) RNA NUNO+probe Ql (Unsp spec) Methodology: real-time, RT-PCR The SARS-CoV-2, Flu A/B, and RSV Combo assay is intended for in vitro diagnostic use under the FDA Emergency Use Authorization (EUA). This test has not been FDA cleared or approved. In compliance with this authorization, please visit www.fda.gov/media/182582/ download or www.fda.gov/media/913048/ download to access the applicable information sheets. [facility] [employer] NT PRO BNPon 10-28-2024 Natriuretic peptide B (Bld) [Mass/Vol] 1121 pg/mL High <125 [facility] [employer] [facility] Comment on above: Performed By: #### L AB20, [id number], [id number], LAB15 ####Wood Experimental Mechanic: THERON PERRY ([id number])[facility] ([facility])[address] [place] [address] Natriuretic peptide B [Mass/ Vol]on 10-28-2024 Interpretation and review of laboratory results Abnormal [facility] Natriuretic peptide B (Bld) [Mass/Vol] 1121 pg/mL High NINF - 125 pg/mL [facility] [employer] No Panel Informationon 10-28 2h Troponin HS (Serial 2nd Troponin) 12 ng/L NINF - 14 ng/L [facility] [employer] Comment on above: Rising or falling tr oponin delta below 2 ng/L as compared to baseline value suggests that acute cardiac injury is unlikely. Interpretation and review of laboratory results Normal [facility] [employer] [facility] [employer] Interpretation and review of laboratory results Normal [facility] Troponin HS Serial Baseline 10 ng/L [facility] - [facility] ng/L [facility] [employer] Comment on above: In individuals prese nting with symptoms > 2h, a baseline troponin <= 5 ng/L suggests acute cardiac injury is unlikely and further serial testing is generally not indicated. [facility] [employer] Interpretation and review of laboratory results Abnormal [facility] [employer] P Dawes 0 degrees [facility] [employer] VA Interval 162 ms [facility] [employer] QRS Dawes 26 degrees [facility] [employer] QRSD Interval 84 ms [facility] [employer] QT Interval 468 ms [facility] [employer] QTC Interval 468 ms [facility] [employer] T Wave Dawes 76 degrees [facility] [employer] Atrial-paced complex es Borderline repolarization abnormality No previous available for comparison Electronically Signed On 10-28-2024 10:42:45 EDT by Carlos Reyna MD - 10/28/2024 IMPRESSION: Atrial-paced complexes Borderline repolarization abnormality No previous available for comparison Electronically Signed On 10-28-2024 10:42:45 EDT by Carlos Dsouza [facility] SARS-COV-2, FLU A/B, AND RSV COMBOon 10-28-2024 SARS-CoV-2 (COVID-19) RNA NUNO+probe Ql (Unsp spec) SARS-COV-2 Reference Not Detected Not Detected RESPIRATORY SYNCYTIAL VIRUS Reference Not Detected Not Detected INFLUENZA A (CEPHEID) Reference Not Detected Not Detected INFLUENZA B (CEPHEID) Reference Not Detected Not Detected ORDER COMMENTS: Methodology: real-time, RT-PCR The SARS-CoV-2, Flu A/B, and RSV Combo assay is intended for in vitro diagnostic use under the FDA Emergency Use Authorization (EUA). This test has not been FDA cleared or approved. In compliance with this authorization, please visit www.fda.gov/media/115612/ download or www.fda.gov/media/749688/ download to access the applicable information sheets. Normal [facility] Comment on above: Performed By: #### L [id number] ####Wood Experimental Mechanic: THERON PERRY ([id number])[facility] [place] [address] Vital signson 10-28-2024 Heart rate 60 /min bpm [facility] XR Chest Single viewon 10-28 Findings suggestive of pulmonary edema, including interstitial thickening and hazy alveolar opacification. Possible tiny left pleural effusion. Report Dictated on Electronically Signed By: Germán Whatley MD Electronically Signed Date/Time: 10/28/2024 11:01 AM [facility] RADIOLOGY SYSTEM Patient Name: DIVYA MELISSA : 1950 Exam Date/Time: 10/28/2024 10:16 Procedure: XR CHEST 1 VIEW Ordering Provider: DSOUZA KEVIN Reason For Exam: CHEST PAIN; Chest Pain CHEST X-RAY AP CLINICAL INDICATION: Chest pain AP radiograph of the chest was obtained. COMPARISON: None FINDINGS: The patient is status post open heart surgery with sternotomy wires present. Findings suggestive of pulmonary edema, including interstitial thickening and hazy alveolar opacification. Possible tiny left pleural effusion. No right pneumothorax is identified. Degenerative changes of the thoracic spine are noted. [facility] RADIOLOGY SYSTEM Germán Whatley MD - 10/28/2024 Patient Name: DIVYA JOSEPH : 1950 Exam Date/Time: 10/28/2024 10:16 Procedure: XR CHEST 1 VIEW Ordering Provider: DSOUZA KEVIN Reason For Exam: CHEST PAIN; Chest Pain CHEST X-RAY AP CLINICAL INDICATION: Chest pain AP radiograph of the chest was obtained. COMPARISON: None FINDINGS: The patient is status post open heart surgery with sternotomy wires present. Findings suggestive of pulmonary edema, including interstitial thickening and hazy alveolar opacification. Possible tiny left pleural effusion. No right pneumothorax is identified. Degenerative changes of the thoracic spine are noted. IMPRESSION: Findings suggestive of pulmonary edema, including interstitial thickening and hazy alveolar opacification. Possible tiny left pleural effusion. Report Dictated on Electronically Signed By: Germán Whatley MD Electronically Signed Date/Time: 10/28/2024 11:01 AM EDT Boxed Radiology Study observation (narrative) Boxed XR Chest Single viewOrdered By: Germán Whatley on 10-28-2024 Boxed Work Phone: Cardiology Visit Reporton Cardiology Visit Report [facility] [address] [place] [address]. [address] [place], [place] [address] OFFICE VISIT Date of Service: 09/27/24 MR#: [id number] Acct: [id number] Name: DIVYA JOSEPH Rep #: [id number] : 1950 Provider: STACY reyes Age/Sex: 74/F [place] [facility] [place]: Signed HPI HPI History of Present Illness Details: Patient comes in the office is a very pleasant 74-year-old white female for yearly follow-up visit. As you know she had a pacemaker implanted for sick sinus syndrome. She recently had the pacemaker generator changed out on May 23, 2023. The patient came to the office in a wheelchair today. She reports she is unable to walk other than around in her house with a cane due to chronic back pain and bilateral lower extremity discomfort related to orthopedic issues in her back. She denies chest, arm, jaw, or neck discomfort. She denies palpitations or bilateral lower extremity edema. She acknowledges shortness of breath with activity such PT using her walking. She denies shortness of breath at rest, orthopnea, cough, or PND. She acknowledges lightheadedness dizziness, near-syncope syncope and weakness. She acknowledges fatigue. Intake Vital Signs 08/30/24 14:33 09/27/24 10:07 Height 5 ft 3 in 5 ft 3 in Weight: 152 lb BMI 26.9 BP 110/66 Blood Pressure Location Lt brachial Position Sitting Respiration 18 Pulse 68 Pulse Source NIBP Intake Visit Reasons: 1 M FU Crisis Manager Required: No Is patient in pain?: No Allergies ciprofloxacin (From Cipro) Allergy (Intermediate, Verified 09/27/24 11:33) Itching atorvastatin calcium (From Lipitor) Allergy (Verified 09/27/24 11:33) Hives gluten Allergy (Verified 09/27/24 11:33) Food Allergy metoprolol succinate (From Toprol XL) Allergy (Verified 09/27/24 11:33) Rash niacin (From Niaspan Extended-Release) Allergy (Verified 09/27/24 11:33) Rash Penicillins Allergy (Verified 09/27/24 11:33) Rash Sulfa (Sulfonamide Antibiotics) Allergy (Verified 09/27/24 11:33) Itching regadenoson Adverse Reaction (Severe, Verified 09/27/24 11:33) Anaphylaxis metronidazole Adverse Reaction (Intermediate, Verified 09/27/24 11:33) lightheaded and ataxia Medications ???Medication ???Instructions ???Recorded ???Confirmed ???Type aspirin 81 mg chewable tablet 81 mg PO DAILY@0800 health 9 09/27/24 History maintenance montelukast 10 mg tablet 10 mg PO QPM allergy 02/22/1909/05 History handicap placard #1 ea 10/13/20 12/09/23 Rx pantoprazole 40 mg tablet,delayed 40 mg PO DAILY stomach #90 tabs 0 06/29/23 09/27/24 Rx release pravastatin 80 mg tablet 80 mg PO QHS #90 tabs 07/08/23 Rx dicyclomine 20 mg tablet 20 mg PO TID #270 tabs 11/22/23 Rx ketoconazole 2 % shampoo 1 applic topical .twice a week 06/2809/27/24 History sores nitroglycerin 0.4 mg sublingual 0.4 mg sublingual Q5-15M Chest Tarik n 12/09/23 09/27/24 History tablet metoprolol tartrate 25 mg tablet 12.5 mg (1/2 x 25 mg) PO BID #30 1 09/27/24 Rx tabs warfarin 2.5 mg tablet 2.5 mg PO .COMPLEX blood thinner 0 03/16/24 09/27/24 Rx #1 TAB folic acid 1 mg tablet 1 mg PO QDAY 07/12/24 09/27/24 His tory gabapentin 100 mg capsule 200 mg PO TID 07/12/24 09/27/24 Hi story acetaminophen 325 mg tablet 650 mg PO Q6H PRN 09/27/24 5 History benzonatate 100 mg capsule 100 mg PO BID PRN 09/27/24 5 History fesoterodine 4 mg tablet,extended 4 mg PO QDAY 09/27/24 09/27/24 Hi story release 24 hr hydrocortisone 1 % topical cream applic topical 09/27/24 09/27/24 H istory isosorbide mononitrate 30 mg 30 mg PO QDAY 09/27/24 09/27/24 Hi story tablet,extended release 24 hr lisinopril 5 mg tablet 5 mg PO QDAY 09/27/24 09/27/24 His tory loperamide 2 mg tablet 2 mg PO Q6H PRN 09/27/24 09/27/24 History loratadine 10 mg tablet 10 mg PO QDAY 09/27/24 09/27/24 Hi story Ejection fraction %: 62 Have you [facility] in the past year?: [facility] Ataxia Pacemaker malfunction Loss of hearing Wears glasses Wears dentures Post-menopausal Depression Diabetes Ambulates with cane Arthritis Low iron Anemia Back pain Syncope Gastric reflux Former smoker Asthma COPD (chronic obstructive pulmonary disease) Shortness of breath on exertion History of atrial fibrillation History of echocardiogram History of rheumatic fever Cardiology follow-up encounter Paroxysmal A-fib Sick sinus syndrome Presence of cardiac pacemaker Ischemic colitis Irritable bowel Restless legs High cholesterol History of stress test Pacemaker Acute colitis Acute blood loss anemia Presence of stent in coronary artery Essential hypertension Long te (more content not included)... Normal [facility] Absolute lymphocyte countOrd ered By: Erasmo Luna on 08-30-2024 Lymphocytes Auto (Unsp spec) [#/Vol] 1.98 10*3/uL 0.83-4.51 [facility] Absolute neutrophil countOrd ered By: Erasmo Luna on 08-30-2024 Neutrophils (Bld) [#/Vol] 4.9 10*3/uL 2.0-7.7 [facility] Anion gap in Serum or Plasma Ordered By: Erasmo Luna on 08-30-2024 Anion gap [Moles/Vol] 10 mmol/L 5-15 [facility] Automated lymphocyte count a s percentage of total leukocytesOrdered By: Erasmo Luna on 08-30-2024 Lymphocytes/100 WBC Auto (Unsp spec) 24.6 % 19-41 [facility] BUN/creatinine ratioOrdered By: Erasmo Luna on 08-30-2024 Urea nitrogen/Creatinine [Mass ratio] 12.9 mg/mg - [facility] Basic Metabolic Profile (BMP )on 08-30-2024 BUN/CRE 12.9 RATIO Normal - [facility] Comment on above: Performed By: #### L 501.5200, L100.0100, L500.2500 #### [facility] [address] [place], [address] Calcium [Mass/Vol] 8.9 mg/dL Normal 7.6-11.0 [facility] Comment on above: Performed By: #### L 501.5200, L100.0100, L500.2500 #### [facility] [address] [place], [address] Chloride [Moles/Vol] 100 mmol/L Normal 98-108 [facility] Comment on above: Performed By: #### L 501.5200, L100.0100, L500.2500 #### [facility] [address] [place], [address] CO2 [Moles/Vol] 26.7 mmol/L Normal 21.0-32.0 [facility] Comment on above: Performed By: #### L 501.5200, L100.0100, L500.2500 #### [facility] [address] [place], [address] Creatinine [Mass/Vol] 1.20 mg/dL Normal 0.70-1.20 [facility] Comment on above: Performed By: #### L 501.5200, L100.0100, L500.2500 #### [facility] [address] [place], [address] GAP 10 Normal 5-15 [facility] Comment on above: Performed By: #### L 501.5200, L100.0100, L500.2500 #### [facility] [address] [place], [address] GFR/1.73 sq M.predicted among non-blacks MDRD (S/P/Bld) [Vol rate/Area] 48 mL/min/{1.73_m2} Low >60 [facility] Comment on above: Result Comment: mL/m in/1.73m2 CKD-EPI Creatinine Equation (2020) Performed By: #### L 501.5200, L100.0100, L500.2500 #### [facility] [address] [place], [address] Glucose [Mass/Vol] 101 mg/dL High 70-99 [facility] Comment on above: Performed By: #### L 501.5200, L100.0100, L500.2500 #### [facility] [address] [place], [address] Potassium [Moles/Vol] 4.3 mmol/L Normal 3.3-5.1 [facility] Comment on above: Performed By: #### L 501.5200, L100.0100, L500.2500 #### [facility] [address] [place], [address] Sodium [Moles/Vol] 137 mmol/L Normal 133-145 [facility] Comment on above: Performed By: #### L 501.5200, L100.0100, L500.2500 #### [facility] [address] [place], [address] Urea nitrogen [Mass/Vol] 16 mg/dL Normal 4-19 [facility] Comment on above: Performed By: #### L 501.5200, L100.0100, L500.2500 #### [facility] [address] [place], [address] Basophil percentageOrdered B y: Erasmo [facility] on 08-30-2024 Basophils/100 WBC (Bld) 0.5 % 0-1 [facility] CBC W/Diff, Automatedon 08-06 Absolute Lymph 1.98 X10 3/uL Normal 0.83-4.51 [facility] Comment on above: Performed By: #### L 501.5200, L100.0100, L500.2500 #### [facility] [address] [place], [address] Absolute Neut 4.9 X10 3/uL Normal 2.0-7.7 [facility] Comment on above: Performed By: #### L 501.5200, L100.0100, L500.2500 #### [facility] [address] [place], [address] Basophils/100 WBC (Bld) 0.5 % Normal 0-1 [facility] Comment on above: Performed By: #### L 501.5200, L100.0100, L500.2500 #### [facility] [address] [place], [address] Eosinophils/100 WBC (Bld) 4.9 % Normal 0-5 [facility] Comment on above: Performed By: #### L 501.5200, L100.0100, L500.2500 #### [facility] [address] [place], [address] Erythrocyte distribution width (RBC) [Ratio] 13.7 % Normal 11.6-14.6 [facility] Comment on above: Performed By: #### L 501.5200, L100.0100, L500.2500 #### [facility] [address] [place], [address] Hematocrit (Bld) [Volume fraction] 33.5 % Low 37-47 [facility] Comment on above: Performed By: #### L 501.5200, L100.0100, L500.2500 #### [facility] [address] [place], [address] Hemoglobin (Bld) [Mass/Vol] 10.2 g/dL Low 12.0-15.0 [facility] Comment on above: Performed By: #### L 501.5200, L100.0100, L500.2500 #### [facility] [address] [place], [address] IG% 0.200 Normal 0.0-0.9 [facility] Comment on above: Result Comment: IG% - Immature Granulocytes (promyelocytes, myelocytes and metamyelocytes) > 1% indicates that a LEFT SHIFT is Present. Performed By: #### L 501.5200, L100.0100, L500.2500 #### [facility] [address] [place], [address] Lymphocytes/100 WBC (Bld) 24.6 % Normal 19-41 [facility] Comment on above: Performed By: #### L 501.5200, L100.0100, L500.2500 #### [facility] [address] [place], [address] MCH (RBC) [Entitic mass] 25.8 pg Low 27.0-32.0 [facility] Comment on above: Performed By: #### L 501.5200, L100.0100, L500.2500 #### [facility] [address] [place], [address] MCHC (RBC) [Mass/Vol] 30.4 g/dL Low 32-36 [facility] Comment on above: Performed By: #### L 501.5200, L100.0100, L500.2500 #### [facility] [address] [place], [address] MCV (RBC) [Entitic vol] 84.6 fL Normal 81-99 [facility] Comment on above: Performed By: #### L 501.5200, L100.0100, L500.2500 #### [facility] [address] [place], [address] Monocytes/100 WBC (Bld) 8.7 % Normal 0-10 [facility] Comment on above: Performed By: #### L 501.5200, L100.0100, L500.2500 #### [facility] [address] [place], [address] Neutrophils/100 WBC (Bld) 61.1 % Normal 47-70 [facility] Comment on above: Performed By: #### L 501.5200, L100.0100, L500.2500 #### [facility] [address] [place], [address] Nucleated RBC (Bld) [#/Vol] 0 10*3/uL Normal 0-5 [facility] Comment on above: Performed By: #### L 501.5200, L100.0100, L500.2500 #### [facility] [address] [place], [address] Platelet mean volume (Bld) [Entitic vol] 12.6 fL High 6.2-12.0 [facility] Comment on above: Performed By: #### L 501.5200, L100.0100, L500.2500 #### [facility] [address] [place], [address] Platelets (Bld) [#/Vol] 190 10*3/uL Normal 150-450 [facility] Comment on above: Performed By: #### L 501.5200, L100.0100, L500.2500 #### [facility] [address] [place], [address] RBC (Bld) [#/Vol] 3.96 10*6/uL Low 4.2-5.4 [facility] Comment on above: Performed By: #### L 501.5200, L100.0100, L500.2500 #### [facility] [address] [place], [address] RDW SD 42.6 fl Normal 35.1-43.9 [facility] Comment on above: Performed By: #### L 501.5200, L100.0100, L500.2500 #### [facility] [address] [place], [address] WBC (Bld) [#/Vol] 8.0 10*3/uL Normal 4.4-11.0 [facility] Comment on above: Performed By: #### L 501.5200, L100.0100, L500.2500 #### [facility] [address] [place], [address] Carbon dioxide, total [Moles /volume] in Central venous bloodOrdered By: Erasmo Luna on 08-30-2024 CO2 [Moles/Vol] 26.7 mmol/L 21.0-32.0 [facility] Cardiology Visit Reporton Cardiology Visit Report [facility] [address] [place] [address] OFFICE VISIT Date of Service: 08/30/24 MR#: [id number] Acct: [id number] Name: DIVYA JOSEPH Rep #: [id number] : 1950 Provider: STACY reyes Age/Sex: 74/F [place] [facility] [place] Status: Signed HPI HPI History of Present Illness Details: Patient comes in the office is a very pleasant 74-year-old white female for yearly follow-up visit. As you know she had a pacemaker implanted for sick sinus syndrome. She recently had the pacemaker generator changed out on May 23, 2023. The patient came to the office in a wheelchair today. She reports she is unable to walk other than around in her house with a cane due to chronic back pain and bilateral lower extremity discomfort related to orthopedic issues in her back. She denies chest, arm, jaw, or neck discomfort. She denies palpitations or bilateral lower extremity edema. She acknowledges shortness of breath with activity such PT using her walking. She denies shortness of breath at rest, orthopnea, cough, or PND. She acknowledges lightheadedness dizziness, near-syncope syncope and weakness. She acknowledges fatigue. Intake Vital Signs 07/05/23 10:40 12/10/23 11:06 08/30/24 14:33 08/30/24 14:48 08/30/24 15:13 08/30/24 15:13 Height 5 ft 2 in 5 ft 3 in 5 ft 3 in Weight: 146 lb BMI 25.8 BP 74/43 L 72/38 L 71/41 L 75/42 L Blood Pressure Location Lt brachial Rt brachial Lt brachial Rt brachial Position Sitting Sitting Sitting Sitting Respiration 18 Pulse 60 67 Pulse Source Monitor Temp 97.8 F Temperature Source Oral Pulse Oximetry (%) 95 Oxygen Delivery Method room air Intake Visit Reasons: 1 Y FU/MOVED FROM [facility] Crisis Manager Required: No Accompanied by: Self Is patient in pain?: No Allergies ciprofloxacin (From Cipro) Allergy (Intermediate, Verified 08/30/24 14:37) Itching atorvastatin calcium (From Lipitor) Allergy (Verified 08/30/24 14:37) Hives gluten Allergy (Verified 08/30/24 14:37) Food Allergy metoprolol succinate (From Toprol XL) Allergy (Verified 08/30/24 14:37) Rash niacin (From Niaspan Extended-Release) Allergy (Verified 08/30/24 14:37) Rash Penicillins Allergy (Verified 08/30/24 14:37) Rash Sulfa (Sulfonamide Antibiotics) Allergy (Verified 08/30/24 14:37) Itching regadenoson Adverse Reaction (Severe, Verified 08/30/24 14:37) Anaphylaxis metronidazole Adverse Reaction (Intermediate, Verified 08/30/24 14:37) lightheaded and ataxia Medications ???Medication ???Instructions ???Recorded ???Confirmed ???Type aspirin 81 mg chewable tablet 81 mg PO DAILY@0800 health 9 08/30/24 History maintenance montelukast 10 mg tablet 10 mg PO QPM allergy 02/22/1908/06 History handicap placard #1 ea 10/13/20 12/09/23 Rx pantoprazole 40 mg tablet,delayed 40 mg PO DAILY stomach #90 tabs 0 06/29/23 08/30/24 Rx release pravastatin 80 mg tablet 80 mg PO QHS #90 tabs 07/08/23 Rx cetirizine 10 mg tablet (Allergy 10 mg PO DAILY 11/17/23 08/30/24 H istory Relief (cetirizine)) dicyclomine 20 mg tablet 20 mg PO TID #270 tabs 11/22/23 Rx ketoconazole 2 % shampoo 1 applic topical .twice a week 06/2808/30/24 History sores nitroglycerin 0.4 mg sublingual 0.4 mg sublingual Q5-15M Chest Tarik n 12/09/23 08/30/24 History tablet metoprolol tartrate 25 mg tablet 12.5 mg (1/2 x 25 mg) PO BID #30 1 08/30/24 Rx tabs warfarin 2.5 mg tablet 2.5 mg PO .COMPLEX blood thinner 0 03/16/24 08/30/24 Rx #1 TAB folic acid 1 mg tablet 1 mg PO QDAY 07/12/24 08/30/24 His tory gabapentin 100 mg capsule 200 mg PO TID 07/12/24 08/30/24 Hi story oxybutynin chloride 5 mg 5 mg PO QDAY 07/12/24 08/30/24 His tory tablet,extended release 24 hr Have you fallen in the past year?: Yes (x5- now in snf since december) [facility] Medical History Ataxia Pacemaker malfunction Loss of hearing Wears glasses Wears dentures Post-menopausal Depression Diabetes Ambulates with cane Arthritis Low iron Anemia Back pain Syncope Gastric reflux Former smoker Asthma COPD (chronic obstructive pulmonary disease) Shortness of breath on exertion History of atrial fibrillation History of echocardiogram History of rheumatic fever Cardiology follow-up encounter Paroxysmal A-fib Sick sinus syndrome Presence of cardiac pacemaker Ischemic colitis Irritable bowel Restless legs High cholesterol History of stress test Pacemaker Acute colitis Acute blood loss anemia Presence of stent in coronary artery Essential hypertension residential current use of anticoagulant Carotid artery disease Atherosclerosis of barrow coronary artery of mariam (more content not included)... Normal [facility] Chloride assayOrdered By: Jenna Luna on 08-30-2024 Chloride [Moles/Vol] 100 mmol/L 98-108 [facility] Eosinophil percentageOrdered By: Erasmo Luna on 08-30-2024 Eosinophils/100 WBC (Bld) 4.9 % 0-5 [facility] Erythrocyte distribution wid th ratioOrdered By: Erasmo Luna on 08-30-2024 Erythrocyte distribution width (RBC) [Ratio] 13.7 % 11.6-14.6 [facility] Erythrocyte distribution wid th standard deviationOrdered By: Erasmo Luna on 08-30-2024 Erythrocyte distribution width (RBC) [Ratio] 42.6 fl 35.1-43.9 [facility] Glomerular filtration rate ( GFR) estimation/1.73 sq m using serum, plasma, or whole bOrdered By: Erasmo Luna on 08-30-2024 GFR/1.73 sq M.predicted among non-blacks MDRD (S/P/Bld) [Vol rate/Area] 48 mL/min/{1.73_m2} Low >60 [facility] Comment on above: mL/min/1.73m2 CKD-EP I Creatinine Equation (2020) Hematocrit Auto (Bld) [Volum e fraction]Ordered By: Erasmo Luna on 08-30-2024 Hematocrit (Bld) [Volume fraction] 33.5 % Low 37-47 [facility] Hemoglobin measurementOrdere d By: Erasmo Luna on 08-30-2024 Hemoglobin (Bld) [Mass/Vol] 10.2 g/dL Low 12.0-15.0 [facility] Immature granulocytes/100 WB C Auto (Bld)Ordered By: Erasmo Luna on 08-30-2024 Immature granulocytes/100 WBC (Bld) 0.200 % 0.0-0.9 [facility] Comment on above: IG% - Immature Granu locytes (promyelocytes, myelocytes and metamyelocytes) > 1% indicates that a LEFT SHIFT is Present. MCV (mean corpuscular volume ) determinationOrdered By: Erasmo Luna on 08-30-2024 MCV (RBC) [Entitic vol] 84.6 fL 81-99 [facility] Magnesiumon 08-30-2024 Magnesium [Mass/Vol] 2.3 mg/dL High 1.5-2.2 [facility] Comment on above: Performed By: #### L 501.5200, L100.0100, L500.2500 #### [facility] [address] [place] [address], [address] Magnesium measurement (mass/ volume)Ordered By: Erasmo Luna on 08-30-2024 Magnesium (Unsp spec) [Mass/Vol] 2.3 mg/dL High 1.5-2.2 [facility] Mean corpuscular hemoglobin (MCH) determinationOrdered By: Erasmo Luna on 08-30-2024 MCH (RBC) [Entitic mass] 25.8 pg Low 27.0-32.0 [facility] Mean corpuscular hemoglobin concentration (MCHC) determinationOrdered By: Erasmo Luna on 08-30-2024 MCHC (RBC) [Mass/Vol] 30.4 g/dL Low 32-36 [facility] Mean platelet volume determi nationOrdered By: Erasmo Luna on 08-30-2024 Platelet mean volume (Bld) [Entitic vol] 12.6 fL High 6.2-12.0 [facility] Monocyte percentageOrdered B y: Erasmo Luna on 08-30-2024 Monocytes/100 WBC (Bld) 8.7 % 0-10 [facility] Neutrophil percentageOrdered By: Erasmo Luna on 08-30-2024 Neutrophils/100 WBC (Bld) 61.1 % 47-70 [facility] Nucleated red blood cell per centageOrdered By: Erasmo Luna on 08-30-2024 Nucleated RBC/100 WBC (Bld) [Ratio] 0 % 0-5 [facility] Platelet countOrdered By: Jenna Luna on 08-30-2024 Platelets (Bld) [#/Vol] 190 10*3/uL 150-450 [facility] Potassium measurement (mass/ volume)Ordered By: Erasmo Luna on 08-30-2024 Potassium (Unsp spec) [Mass/Vol] 4.3 mmol/L 3.3-5.1 [facility] RBC Auto (Bld) [#/Vol]Ordere d By: Erasmo Luna on 08-30-2024 RBC (Bld) [#/Vol] 3.96 10*6/uL Low 4.2-5.4 [facility] Serum creatinine measurement (mass/volume)Ordered By: Erasmo Luna on 08-30-2024 Creatinine [Mass/Vol] 1.20 mg/dL 0.70-1.20 [facility] Serum glucose measurement (m ass/volume)Ordered By: Erasmo Luna on 08-30-2024 Glucose [Mass/Vol] 101 mg/dL High 70-99 [facility] Serum or plasma calcium kendall urement (mass/volume)Ordered By: Erasmo Luna on 08-30-2024 Calcium [Mass/Vol] 8.9 mg/dL 7.6-11.0 [facility] Serum or plasma urea nitroge n measurement (mass/volume)Ordered By: Erasmo Luna on 08-30-2024 Urea nitrogen [Mass/Vol] 16 mg/dL 4-19 [facility] Sodium levelOrdered By: Erasmo Luna on 08-30-2024 Sodium [Moles/Vol] 137 mmol/L 133-145 [facility] White blood cell (WBC) count Ordered By: Erasmo Luna on 08-30-2024 WBC (Bld) [#/Vol] 8.0 10*3/uL 4.4-11.0 [facility] Gastroenterology Visit Repor ton 07-12-2024 Gastroenterology Visit Report [facility] Gastroenterology [address] [place] [address] OFFICE VISIT Date of Service: 07/12/24 MR#: [id number] Acct: [id number] Name: DIVYA JOSEPH Rep #: [id number] : 1950 Provider: Zhen Kirk DO Age/Sex: 74/F Location: [facility] [email or web address] Status: Signed Intake Vital Signs 07/05/23 10:40 12/10/23 11:06 Height 5 ft 2 in 5 ft 3 in Intake Visit Reasons: 1 Y FU Chief Complaint: ischemic colitis Allergies ciprofloxacin (From Cipro) Allergy (Intermediate, Verified 07/12/24 09:50) Itching atorvastatin calcium (From Lipitor) Allergy (Verified 07/12/24 09:50) Hives gluten Allergy (Verified 07/12/24 09:50) Food Allergy metoprolol succinate (From Toprol XL) Allergy (Verified 07/12/24 09:50) Rash niacin (From Niaspan Extended-Release) Allergy (Verified 07/12/24 09:50) Rash Penicillins Allergy (Verified 07/12/24 09:50) Rash Sulfa (Sulfonamide Antibiotics) Allergy (Verified 07/12/24 09:50) Itching regadenoson Adverse Reaction (Severe, Verified 07/12/24 09:50) Anaphylaxis metronidazole Adverse Reaction (Intermediate, Verified 07/12/24 09:50) lightheaded and ataxia Medications ???Medication ???Instructions ???Recorded ???Confirmed ???Type aspirin 81 mg chewable tablet 81 mg PO DAILY@0800 health 9 07/12/24 History maintenance montelukast 10 mg tablet 10 mg PO QPM allergy 02/22/19 0510/29 History handicap placard #1 ea 10/13/20 12/09/23 Rx pantoprazole 40 mg tablet,delayed 40 mg PO DAILY stomach #90 tabs 0 06/29/23 07/12/24 Rx release pravastatin 80 mg tablet 80 mg PO QHS #90 tabs 07/08/2310/29 Rx isosorbide mononitrate 30 mg 30 mg PO DAILY #90 tabs 07/14/23 0 07/12/24 Rx tablet,extended release 24 hr cetirizine 10 mg tablet (Allergy 10 mg PO DAILY 11/17/23 07/12/24 H istory Relief (cetirizine)) dicyclomine 20 mg tablet 20 mg PO TID #270 tabs 11/22/23 Rx ketoconazole 2 % shampoo 1 applic topical .twice a week 06/2807/12/24 History sores nitroglycerin 0.4 mg sublingual 0.4 mg sublingual Q5-15M Chest Tarik n 12/09/23 07/12/24 History tablet metoprolol tartrate 25 mg tablet 12.5 mg (1/2 x 25 mg) PO BID #30 1 07/12/24 Rx tabs warfarin 2.5 mg tablet 2.5 mg PO .COMPLEX blood thinner 0 03/16/24 07/12/24 Rx #1 TAB folic acid 1 mg tablet 1 mg PO QDAY 07/12/24 07/12/24 His tory gabapentin 100 mg capsule 200 mg PO TID 07/12/24 07/12/24 Hi story lisinopril 5 mg tablet 5 mg PO QDAY 07/12/24 07/12/24 His tory oxybutynin chloride 5 mg 5 mg PO QDAY 07/12/24 07/12/24 His tory tablet,extended release 24 hr Have you fallen in the past year?: Yes (frequent falls, admitted to SNF 12/2023) [facility] Medical History Ataxia Pacemaker malfunction Loss of hearing Wears glasses Wears dentures Post-menopausal Depression Diabetes Ambulates with cane Arthritis Low iron Anemia Back pain Syncope Gastric reflux Former smoker Asthma COPD (chronic obstructive pulmonary disease) Shortness of breath on exertion History of atrial fibrillation History of echocardiogram History of rheumatic fever Cardiology follow-up encounter Paroxysmal A-fib Sick sinus syndrome Presence of cardiac pacemaker Ischemic colitis Irritable bowel Restless legs High cholesterol History of stress test Pacemaker Acute colitis Acute blood loss anemia Presence of stent in coronary artery Essential hypertension residential current use of anticoagulant Carotid artery disease Atherosclerosis of barrow coronary artery of barrow heart without angina pectoris Pacemaker Cerebrovascular disease Sick sinus syndrome with tachycardia HLD (hyperlipidemia) Surgical History History of cardiac catheterization History of esophagogastroduodenoscop y (EGD) Status post placement of cardiac pacemaker History of total hysterectomy History of cholecystectomy History of left-sided carotid endarterectomy ( 06/2006) Hx of CABG ( 06/29/06) Family History Mother CVA (cerebral vascular accident) CAD (coronary artery disease) Social History household members: none Smoking Status: Former smoker alcohol intake: never substance use type: does not use HPI HPI Chief Complaint: ischemic colitis Details: DIVYA JOSEPH, is a 74 F who presents to the office today for follow up. OV 5.7.24 pt reports that she is doing well overall. Pt continues with Dicyclomine. Pt reports occasionally cramping, is unable to identify food triggers, but pt does think that onions upset her stomach. Pt reports that she is currently having a f (more content not included)... Normal [facility] .Auto Diffon 06-08-2024 Basophil, Absolute 0.1 10 3/mcL Normal 0.0-0.3 [facility] Comment on above: Performed By: #### C BC, ADIFF, GFR, BMP, ANEU #### [facility] [address] [place] [address] Basophils/100 WBC (Bld) 1.3 % Normal 0.0-2.5 [facility] Comment on above: Performed By: #### C BC, ADIFF, GFR, BMP, ANEU #### [facility] [address] [place] [address] Eosinophil, Absolute 0.3 10 3/mcL Normal 0.0-0.7 [facility] Comment on above: Performed By: #### C BC, ADIFF, GFR, BMP, ANEU #### [facility] [address] [place] [address] Eosinophils/100 WBC (Bld) 4.2 % Normal 0.0-6.0 [facility] Comment on above: Performed By: #### C BC, ADIFF, GFR, BMP, ANEU #### [facility] [address] [place] [address] Lymphocyte, Absolute 1.5 10 3/mcL Normal 0.9-4.3 [facility] Comment on above: Performed By: #### C BC, ADIFF, GFR, BMP, ANEU #### [address] [address] Lymphocytes/100 WBC (Bld) 18.8 % Low 20.0-40.0 [facility] Comment on above: Performed By: #### C BC, ADIFF, GFR, BMP, ANEU #### [address] [address] Monocyte, Absolute 0.6 10 3/mcL Normal 0.1-1.4 [facility] Comment on above: Performed By: #### C BC, ADIFF, GFR, BMP, ANEU #### [address] [address] Monocytes/100 WBC (Bld) 7.8 % Normal 2.0-13.0 [facility] Comment on above: Performed By: #### C BC, ADIFF, GFR, BMP, ANEU #### [address] [address] Neutrophils/100 WBC (Bld) 67.9 % Normal 50.0-75.0 [facility] Comment on above: Performed By: #### C BC, ADIFF, GFR, BMP, ANEU #### [address] [address] .GFRon 06-08-2024 Estimated Glomerular Filtration Rate 73 ml/min/1.73sqm Normal [facility] Comment on above: Result Comment: Stages of Chronic Kidney Disease (CKD) Stage Description eGFR(ml/min/1.73 sq.m.) CKD 1 Normal kidney function or >=90 normal kindney function with possible kidney damage (ex. Proteinuria) CKD 2 Kidney damage with mild loss 60-89 of kidney function CKD 3a Mild to moderate loss of kidney 45-59 function CKD 3b Moderate to severe loss of 30-44 of kindey function CKD 4 Severe loss of kidney function 15-29 CKD 5 Kidney failure <15 Note: (go live 2024) the eGFR calculation was updated to the 2020 CKD-EPI creatinine equation without a race factor to calculate the eGFR results. Performed By: #### C BC, ADIFF, GFR, BMP, ANEU #### [facility] [address] [place], [place] [address] .NEUABSon 06-08-2024 Neutrophil, Absolute 5.4 10 3/mcL Normal 2.3-8.1 [facility] Comment on above: Performed By: #### C BC, ADIFF, GFR, BMP, ANEU #### [address] [address] BMPon 06-08-2024 BUN/Creatinine Ratio 13.1 ratio Normal 10.0-22.0 [facility] Comment on above: Performed By: #### C BC, ADIFF, GFR, BMP, ANEU #### [place] [id number] Calcium [Mass/Vol] 9.5 mg/dL Normal 8.7-10.4 [facility] Comment on above: Performed By: #### C BC, ADIFF, GFR, BMP, ANEU #### [place] [address] Chloride [Moles/Vol] 103 mmol/L Normal 98-110 [facility] Comment on above: Performed By: #### C BC, ADIFF, GFR, BMP, ANEU #### [place] [id number] CO2 [Moles/Vol] 33 mmol/L High 22-32 [facility] Comment on above: Performed By: #### C BC, ADIFF, GFR, BMP, ANEU #### [place] [address] Creatinine [Mass/Vol] 0.84 mg/dL Normal 0.50-1.20 [facility] Comment on above: Result Comment: Test ing performed on Meridian analyzer using enzymatic creatinine methodology. Performed By: #### C BC, ADIFF, GFR, BMP, ANEU #### [place] [id number] Electrolyte Balance 3.0 mEq/L Low 4.0-15.0 [facility] Comment on above: Performed By: #### C BC, ADIFF, GFR, BMP, ANEU #### [place] [id number] Glucose [Mass/Vol] 115 mg/dL Normal 82-115 [facility] Comment on above: Performed By: #### C BC, ADIFF, GFR, BMP, ANEU #### [place] [address] Potassium [Moles/Vol] 3.7 mmol/L Normal 3.5-5.0 [facility] Comment on above: Performed By: #### C BC, ADIFF, GFR, BMP, ANEU #### [place] [address] Sodium [Moles/Vol] 139 mmol/L Normal 136-145 [facility] Comment on above: Performed By: #### C BC, ADIFF, GFR, BMP, ANEU #### [place] [address] Urea nitrogen [Mass/Vol] 11.0 mg/dL Normal 8.0-22.0 [facility] Comment on above: Performed By: #### C BC, ADIFF, GFR, BMP, ANEU #### [place] [address] CBCon 06-08-2024 Erythrocyte distribution width (RBC) [Ratio] 14.8 % Normal 11.5-15.5 [facility] Comment on above: Performed By: #### C BC, ADIFF, GFR, BMP, ANEU #### [place] [address] Hematocrit (Bld) [Volume fraction] 38.3 % Normal 34.0-46.0 [facility] Comment on above: Performed By: #### C BC, ADIFF, GFR, BMP, ANEU #### [place] [address] Hgb 12.5 G/dL Normal 12.0-16.0 [facility] Comment on above: Performed By: #### C BC, ADIFF, GFR, BMP, ANEU #### [place] [id number] MCH (RBC) [Entitic mass] 27.8 pg Normal 27.0-33.0 [facility] Comment on above: Performed By: #### C BC, ADIFF, GFR, BMP, ANEU #### [address] [address] MCHC 32.5 G/dL Normal 32.0-36.0 [facility] Comment on above: Performed By: #### C BC, ADIFF, GFR, BMP, ANEU #### [address] [address] MCV (RBC) [Entitic vol] 85.4 fL Normal 80.0-99.0 [facility] Comment on above: Performed By: #### C BC, ADIFF, GFR, BMP, ANEU #### [place] [address] Platelet 207 10 3/mcL Normal 150-450 [facility] Comment on above: Performed By: #### C BC, ADIFF, GFR, BMP, ANEU #### [place] [address] Platelet mean volume (Bld) [Entitic vol] 10.7 fL High 6.6-10.5 [facility] Comment on above: Performed By: #### C BC, ADIFF, GFR, BMP, ANEU #### [place] [address] RBC 4.49 10 6/mcL Normal 4.10-5.30 [facility] Comment on above: Performed By: #### C BC, ADIFF, GFR, BMP, ANEU #### [place] [id number] WBC 7.9 10 3/mcL Normal 4.5-10.8 [facility] Comment on above: Performed By: #### C BC, ADIFF, GFR, BMP, ANEU #### [place] [address] IR ARTERIOGRAM ABDOMINALon 0 06-08-2024 IR ARTERIOGRAM ABDOMINAL ORIGINAL Images acquired, not reported on this accession number. Normal [facility] LABORATORYOrdered By: SYSTEM SYSTEM on 06-08-2024 Basophils (Bld) [#/Vol] 0.1 103/mcL Normal 0.0 - 0.3 10^3/mcL AH Workflow SS Basophils/100 WBC (Bld) 1.3 % Normal 0.0 - 2.5 % Workflow SS Calcium [Mass/Vol] 9.5 mg/dL Normal 8.7 - 10. 4 mg/dL ADM SS Chloride [Moles/Vol] 103 mmol/L Normal 98 - 11 0 mEq/L ADM SS CO2 [Moles/Vol] 33 mmol/L High 22 - 32 mEq/L ADM SS Creatinine [Mass/Vol] 0.84 mg/dL Normal 0.50 - 1.20 mg/dL ADM SS Comment on above: Interpretive Data: T esting performed on Meridian analyzer using enzymatic creatinine methodology. Electrolyte Balance 3.0 mEq/L Low 4.0 - 15 .0 mEq/L ADM SS Eosinophils (Bld) [#/Vol] 0.3 103/mcL Normal 0.0 - 0.7 10^3/mcL Workflow SS Eosinophils/100 WBC (Bld) 4.2 % Normal 0.0 - 6.0 % Workflow SS Erythrocyte distribution width (RBC) [Ratio] 14.8 % Normal 11.5 - 15.5 % Workflow SS Estimated Glomerular Filtration Rate 73 ml/min/1.73sqm Invalid Interpretation Code Chemistry S Comment on above: Interpretive Data: Stages of Chronic Kidney Disease (CKD) Stage Description eGFR(ml/min/1.73 sq.m.) CKD 1 Normal kidney function or >=90 normal kindney function with possible kidney damage (ex. Proteinuria) CKD 2 Kidney damage with mild loss 60-89 of kidney function CKD 3a Mild to moderate loss of kidney 45-59 function CKD 3b Moderate to severe loss of 30-44 of kindey function CKD 4 Severe loss of kidney function 15-29 CKD 5 Kidney failure <15 Note: (go live 2024) the eGFR calculation was updated to the 2020 CKD-EPI creatinine equation without a race factor to calculate the eGFR results. Glucose [Mass/Vol] 115 mg/dL Normal 82 - 115 mg/dL ADM SS Hematocrit (Bld) [Volume fraction] 38.3 % Normal 34.0 - 46.0 % Workflow SS Hemoglobin (Bld) [Mass/Vol] 12.5 G/dL Normal 12.0 - 16.0 G/dL Workflow SS Lymphocytes (Bld) [#/Vol] 1.5 103/mcL Normal 0.9 - 4.3 10^3/mcL AH Workflow SS Lymphocytes/100 WBC (Bld) 18.8 % Low 20.0 - 40.0 % AH Workflow SS MCH (RBC) [Entitic mass] 27.8 pg Normal 27.0 - 33.0 pg AH Workflow SS MCHC 32.5 G/dL Normal 32.0 - 36.0 G/dL AH Workflow SS MCV (RBC) [Entitic vol] 85.4 fL Normal 80.0 - 99.0 fL AH Workflow SS Monocytes (Bld) [#/Vol] 0.6 103/mcL Normal 0.1 - 1.4 10^3/mcL AH Workflow SS Monocytes/100 WBC (Bld) 7.8 % Normal 2.0 - 13.0 % AH Workflow SS Neutrophils (Bld) [#/Vol] 5.4 103/mcL Normal 2.3 - 8.1 10^3/mcL AH Workflow SS Neutrophils/100 WBC (Bld) 67.9 % Normal 50.0 - 75.0 % AH Workflow SS Platelet mean volume (Bld) [Entitic vol] 10.7 fL High 6.6 - 10.5 fL AH Workflow SS Platelets (Bld) [#/Vol] 207 103/mcL Normal 150 - 450 10^3/mcL AH Workflow SS Potassium [Moles/Vol] 3.7 mmol/L Normal 3.5 - 5.0 mEq/L AH ADM SS RBC (Bld) [#/Vol] 4.49 106/mcL Normal 4.10 - 5.3 0 10^6/mcL AH Workflow SS Sodium [Moles/Vol] 139 mmol/L Normal 136 - 145 mEq/L AH ADM SS Urea nitrogen [Mass/Vol] 11.0 mg/dL Normal 8.0 - 22.0 mg/dL AH ADM SS Urea nitrogen/Creatinine [Mass ratio] 13.1 ratio Normal 10.0 - 22.0 ratio AH ADM SS WBC (Bld) [#/Vol] 7.9 103/mcL Normal 4.5 - 10.8 10^3/mcL AH Workflow SS NCS and/or EMG Patienton NCS and/or EMG Patient [facility] Pulmonary Services/Neurology [address] [place] [address] MR#: [id number] Acct: [id number] Name: DIVYA JOSEPH Rep #: [id number] : 1950 74 From: Marah Hopson MD Referring Dr: Status: REG CLI Location: PSN Date: 06/06/24 Sex: F C NCS and/or EMG Patient Report Ordering Doctor: Rosetta Luque DATE OF SERVICE: 06/06/24 Divya presents with complaints of numbness and tingling in the feet and poor balance. Electrodiagnostic findings: Left peroneal motor nerve demonstrates normal distal latency with reduced amplitude and reduced conduction velocity. Right peroneal motor nerve demonstrates normal distal latency and amplitude with reduced conduction velocity. Left tibial motor nerve demonstrates normal distal latency, amplitude and conduction velocity right tibial motor nerve demonstrates normal distal latency, amplitude and conduction velocity. Prolonged left peroneal, right peroneal and right tibial and left tibial F???waves. H???reflexes prolonged bilaterally. Sensory responses are not obtainable. Needle EMG testing was performed in the lower limbs. All muscles tested showed no evidence of denervation with normal motor unit action potentials. Electrodiagnostic impression: This is an abnormal study in the lower limbs. 1. Electrodiagnostic findings suggestive of peripheral polyneuropathy, sensory greater than motor, with evidence of demyelination. 2. No electrodiagnostic evidence for cervical radiculopathy. Multi Select Codes Neurology Neurology Interp Codes: 06736-00 Musc test done w/n test comp (interp) (2) and 25075-03 Nrv cndj test 9-10 studies (interp) 06/06/24 1314 Date Marah Hopson MD CC: Dr. Marah Hopson MD; Dr. Rosanne Waddell DO; ROSETTA LUQUE Date Dictated: 06/06/24 1310 Date Transcribed: 06/06/241309 Jig Maker: IMELDA Signed Normal [facility] CREATININE FINGERSTICKon CREATININE WB < 1.0 Normal 0.55-1.02 [facility] Comment on above: Performed By: #### L 449.7652 #### [facility] [address] [place], [place] [address], [address] EGFR WB > 60.0000 Normal >60 [facility] Comment on above: Performed By: #### L 300.3900 #### [facility] [address] [place], [address] CTA Abd w/Runoff W/WO Contra ston 02-16-2024 CTA Abd w/Runoff W/WO Contrast [facility] Imaging Services [address] [place], [place] [id number] CTA Abd w/Runoff W/WO Contrast MR#: [id number] Acct: [id number] Name: DIVYA JOSEPH Rep #: [id number] : 1950 F 73 From: Wong Renteria PCP: Dr. Erasmo Pierre MD Status: [facility] Study: CTA Abd w/Runoff W/WO Contrast Date of Exam: 04/18/23 Exam# [id number] Ordering Dr: Refugio Garcia MD [id number] EXAM: CT ANGIOGRAPHY ABDOMEN AND PELVIS WITH RUNOFF TO THE LOWER EXTREMITIES WITH INTRAVENOUS CONTRAST CLINICAL INDICATION: Atherosclerosis of barrow arteries of extremities TECHNIQUE: Helically acquired angiography images were obtained of the abdomen, pelvis and lower extremities with intravenous contrast using CTA runoff protocol. This CT exam was performed using one or more of the following dose reduction techniques: automated exposure control, adjustment of the mA and/or kV according to patient size, and/or use of iterative reconstruction technique. MIP reconstructed images were created and reviewed. CONTRAST: 100 cc of Isovue-370 IV. RADIATION DOSE: CTDIvol = 5.52 mGy, DLP = 1039.80 mGy-cm COMPARISON: No relevant prior studies available. FINDINGS: VASCULATURE: AORTA: Moderate atherosclerotic disease of the infrarenal abdominal aorta without dissection or aneurysm. CELIAC TRUNK AND MESENTERIC ARTERIES: No acute findings. No occlusion or significant stenosis. No dissection. RENAL ARTERIES: No acute findings. No occlusion or significant stenosis. No dissection. RIGHT ILIAC ARTERIES: Extensive atherosclerotic disease involving the right common iliac artery with less than 50% diameter stenosis. Scattered atherosclerotic disease right external iliac artery without hemodynamically significant stenosis. RIGHT FEMORAL/POPLITEAL ARTERIES: Scattered atherosclerotic disease proximal right common and superficial femoral arteries without hemodynamically significant stenosis. RIGHT CALF/FOOT ARTERIES: No acute findings. Normal right lower extremity runoff. LEFT ILIAC ARTERIES: Extensive atherosclerotic disease involving the left common iliac artery with probable greater than 50% diameter stenosis proximally. Scattered atherosclerotic disease left external iliac artery without hemodynamically significant stenosis. LEFT FEMORAL/POPLITEAL ARTERIES: Scattered atherosclerotic disease proximal left common and superficial femoral arteries without hemodynamically significant stenosis. LEFT CALF/FOOT ARTERIES: No acute findings. Normal left lower extremity runoff. LOWER THORAX: Unremarkable. Lung bases are clear. No cardiomegaly. No significant pericardial effusion. ABDOMEN: LIVER: Unremarkable. Homogeneous. No focal mass. GALLBLADDER AND BILE DUCTS: Cholecystectomy. No intra- or extrahepatic biliary ductal dilation. PANCREAS: Unremarkable. No focal cystic or solid mass. SPLEEN: Unremarkable. Normal size without focal cystic or solid mass. ADRENALS: Unremarkable. No nodules. KIDNEYS AND URETERS: Simple right renal cyst. No follow-up of this simple cyst is necessary. Normal renal size and position. No hydronephrosis. STOMACH AND BOWEL: Unremarkable. No stomach or bowel distention. No focal inflammatory change. PELVIS: APPENDIX: No evidence of acute appendicitis. BLADDER: Unremarkable. REPRODUCTIVE: Unremarkable as visualized. No mass. ABDOMEN, PELVIS and LOWER EXTREMITIES: INTRAPERITONEAL SPACE: Unremarkable. No ascites or other fluid collection. No free air. BONES/JOINTS: Unremarkable. No suspicious lytic or blastic abnormality. SOFT TISSUES: Unremarkable. No discrete abdominal or pelvic wall hernia. LYMPH NODES: Unremarkable. No enlarged lymph nodes. CT/CTA Abd w/Runoff W/WO Contrast IMPRESSION: 1. Extensive atherosclerotic disease involving the left common iliac artery with probable greater than 50% diameter stenosis proximally. 2. Extensive atherosclerotic disease involving the right common iliac artery with less than 50% diameter stenosis. 3. Moderate atherosclerotic disease of the infrarenal abdominal aorta without dissection or aneurysm. 4. Scattered atherosclerotic disease proximal right common and superficial femoral arteries without hemodynamically significant stenosis. 5. Scattered atherosclerotic disease proximal left common and superficial femoral arteries without hemodynamically significant stenosis. 6. Normal right lower extremity runoff. 7. Normal left lower extremity runoff. 8. Cholecystectomy. Electronically Signed: Wong Chung MD at 7:46 EST , CC: Dr. Refugio Garcia MD; Dr. Erasmo Pierre MD Jig Maker: Signed Normal [facility] Creatinine measurement at be dsideOrdered By: Refugio Garcia on 02-16-2024 Bedside Creatinine < 1.0 mg/dL 0.55-1.02 [facility] EGFROrdered By: Refugio Garcia on 02-16-2024 Bedside Estimated GFR (eGFR) > 60.0000 mL/min >60 [facility] Abd Aortic/IVC Duplex scanon 12-22-2023 Abd Aortic/IVC Duplex scan [facility] Cardi[facility] Services [address] [place] [address] Abd Aortic/IVC Duplex scan 12/22/23 0852 MR#: [id number] Acct: [id number] Name: DIVYA JOSEPH Rep #: [id number] : 1950 73 From: Refugio Garcia MD Attending Dr: Dr. Refugio Garcia MD Status: DE P CLI Ordering Dr: Refugio Garcia MD Date: 12/22/23 Location: [facility] Sex: F C Admitted: Reason For Study: Atherosclerosis Aorta Measurements Aorta Doppler Measurements Proximal aorta measures1.55 x 1.55cm. in cross- Peak systolic flow velocities within the proximal sectional axis. aorta measure 33.9 cm/sec. Proximal aorta measures1.56cm. in longitudinal Peak systolic flow velocities within the mid aorta axis. measure 44.3 cm/sec. Mid aorta measures1.45 x 1.43cm. in cross- Peak systolic flow velocities within the distal sectional axis. aorta measure 75.5 cm/sec. Mid aorta measures1.41cm. in longitudinal axis. Distal aorta measures0.93 x 0.95cm. in cross- sectional axis. Distal aorta measures0.93cm. in longitudinal axis. Left Iliac Artery Left iliac artery measures 0.53 x 0.53 cm. in the cross-sectional axis. Left iliac artery measures 0.54 cm. in the longitudinal axis. Peak systolic velocity in the left iliac artery measures 357.1 cm/sec. Right Iliac Artery Right iliac artery measures 0.42 x 0.40 cm. in the cross-sectional axis. Right iliac artery measures 0.46 cm. in the longitudinal axis. Peak systolic velocity in the right iliac artery measures 239 cm/sec. Procedure Aorta IVC Iliac vasculature or bypass grafts 28775. Exam performed in department. VL/Abd Aortic/IVC Duplex scan Interpretation Summary No aneurysm noted. Bilateral common iliac stenosis. ___ Ordering Physician: Refugio Garcia Referring Physician: Erasmo Pierre Performed By: Socorro Hernández RVT 01/15/241642 Date Refugio Garcia MD CC: Dr. Refugio Garcia MD; Dr. Erasmo Pierre MD Date Dictated: 12/22/2352 Date Transcribed: 01/15/241642 Jig Maker: Signed Normal [facility] Ankle Brachial Indexon 12-21 Ankle Brachial Index [facility] Cardiovascular Services [address] [place] [address] Ankle Brachial Index 12/22/23 0838 MR#: [id number] Acct: [id number] Name: DIVYA JOSEPH Rep #: [id number] : 1950 73 From: Refugio Garcia MD Attending Dr: Dr. Refugio Garcia MD Status: DE P CLI Ordering Dr: Refugio Garcia MD Date: 12/22/23 Location: [facility] Sex: F C Admitted: Reason For Study: PVD Procedure A bilateral lower extremity continuous wave Doppler with analog waveform analysis and ankle brachial indexes. Left Segmental Pressures Left brachial= 139mmHg. Left posterior tibial artery = 113mmHg. Left dorsalis pedis artery = 114mmHg. Left digit = 111 mmHg. The left dorsalis pedis waveforms are biphasic. The left posterior tibial artery waveforms are biphasic. Right Segmental Pressures Right brachial= 135mmHg. Right posterior tibial artery = 133mmHg. Right dorsalis pedis artery = 128mmHg. Right digit = 136 mmHg. The right dorsalis pedis waveforms are triphasic. The right posterior tibial artery waveforms are triphasic. Indices The right ankle brachial index by the dorsalis pedis is 0.92. The right ankle brachial index by the posterior tibial artery is 0.96. The right digital-brachial index is 0.98. The left ankle brachial index by the dorsalis pedis is 0.82. The left ankle brachial index by the posterior tibial artery is 0.81. The left digital-brachial index is 0.80. VL/Ankle Brachial Index Interpretation Summary Right RANJAN _, normal. The left resting ankle-brachial index appears mildly abnormal. ___ Ordering Physician: Refugio Garcia Referring Physician: Erasmo Pierre Performed By: Socorro Hernández RVT 01/15/245 Date Refugio Garcia MD CC: Dr. Refugio Garcia MD; Dr. Erasmo Peirre MD Date Dictated: 12/22/23 0838 Date Transcribed: 01/15/241644 Jig Maker: Signed Normal [facility] Carotid Duplex Ultrasoundon 12-22-2023 Carotid Duplex Ultrasound [facility] Cardiovascular Services [facility] [place] [address] Carotid Duplex Ultrasound 12/22/23 0903 MR#: [id number] Acct: [id number] Name: DIVYA JOSEPH E Rep #: [id number] : 1950 73 From: Refugio Garcia MD Attending Dr: Dr. Refugio Garcia MD Status: DE P CLI Ordering Dr: Refugio Garcia MD Date: 12/22/23 Location: [facility] Sex: F C Admitted: Reason For Study: Carotid stenosis Rt. Velocities/BP Lt. Velocities/BP Prox CCA 51.3/13.5 cm/sec. Prox CCA 66.4/18.2 cm/sec. Mid CCA 46.6/14.5 cm/sec. Mid CCA 57/18.2 cm/sec. Dist CCA 38.8/10.3 cm/sec. Dist CCA 88.8/26.2 cm/sec. Prox ICA 56/17.3 cm/sec. Prox ICA 106.5/29.8 cm/sec. Mid ICA 66.4/25.8 cm/sec. Mid ICA 291.5/95.3 cm/sec. Dist ICA 84.4/28.6 cm/sec. Dist ICA 161.5/31.9 cm/sec. Rt. ICA/CCA = 1.81. Lt. ICA/CCA = 5.11. Prox ECA 193.8/16 cm/sec. Prox ECA 64.5/4.1 cm/sec. Rt. Vert. 57/14.5 cm/sec. Lt. Vert. 68.7/19.9 cm/sec. Right Extracranial There is homogeneous, smooth atherosclerotic plaque noted in the right common carotid artery. There is heterogeneous, irregular atherosclerotic plaque noted in the right internal carotid artery. There is heterogeneous, irregular atherosclerotic plaque noted in the right external carotid artery. Antegrade flow is noted in the right vertebral artery. Left Extracranial There is homogeneous, irregular atherosclerotic plaque noted in the left common carotid artery. There is heterogeneous, irregular atherosclerotic plaque noted in the left internal carotid artery. There is heterogeneous, irregular atherosclerotic plaque noted in the left external carotid artery. Antegrade flow is noted in the left vertebral artery. Procedure Carotid Duplex 95730. This is a Carotid Duplex examination using B-mode, color flow and specral Doppler. Preliminary report given to Dr. Garcia Staff. Exam performed in department. VL/Carotid Duplex Ultrasound Interpretation Summary Mild (<50%) stenosis right extracranial internal carotid. Severe (>70%) stenosis left extracranial internal carotid. Patent and antegrade vertebrals bilaterally. ___ Ordering Physician: Refugio Garcia Referring Physician: Erasmo Pierre Performed By: Socorro Hernández RVT 01/15/241641 Date Refugio Garcia MD CC: Dr. Refugio Garcia MD; Dr. Erasmo Pierre MD Date Dictated: 12/22/23902 Date Transcribed: 01/15/241641 Jig Maker: Signed Normal [facility] Prothrombin Time w/INRon INR Normal [facility] Comment on above: Result Comment: Canc elled via OM: Order cancelled - Patient discharged Performed By: #### L 300.3900 #### [facility] [address] [place], [address] PROTIME Normal 11.7-14.9 [facility] Comment on above: Result Comment: Canc elled via OM: Order cancelled - Patient discharged Performed By: #### L 300.3900 #### [facility] [address] [place], [address] Basic Metabolic Profile (BMP )on 12-13-2023 BUN/CRE 13.0 RATIO Normal - [facility] Comment on above: Performed By: #### L 100.0500, L500.2500 #### [facility] [address] [place], [address] CA,Total 8.9 mg/dL Normal 8.5-10.1 [facility] Comment on above: Performed By: #### L 100.0500, L500.2500 #### [facility] [address] [place], [address] Chloride [Moles/Vol] 102 mmol/L Normal 98-107 [facility] Comment on above: Performed By: #### L 100.0500, L500.2500 #### [facility] [address] [place], [address] CO2 [Moles/Vol] 26.0 mmol/L Normal 21.0-32.0 [facility] Comment on above: Performed By: #### L 100.0500, L500.2500 #### [facility] [address] [place], [address] Creatinine [Mass/Vol] 0.69 mg/dL Normal 0.55-1.02 [facility] Comment on above: Result Comment: The validity of the calculated GFR GFRAA in patients over 70 years has not been determined. Clinical correlation is essential. Performed By: #### L 100.0500, L500.2500 #### [facility] [address] [place], [address] ECRCL 56.67 ml/min Normal [facility] Comment on above: Performed By: #### L 100.0500, L500.2500 #### [facility] [address] [place], [address] EST GFR - AA 107 mL/min Normal >60 [facility] Comment on above: Result Comment: Afri can Monegasque GFR Calc Performed By: #### L 100.0500, L500.2500 #### [facility] [address] [place], [address] GAP 6 Normal 5-15 [facility] Comment on above: Performed By: #### L 100.0500, L500.2500 #### [facility] [address] [place], [address] GFR/1.73 sq M.predicted among non-blacks MDRD (S/P/Bld) [Vol rate/Area] 88 mL/min/{1.73_m2} Normal >60 [facility] Comment on above: Result Comment: Non- GFR Calc Performed By: #### L 100.0500, L500.2500 #### [facility] [address] [place], [address] Glucose [Mass/Vol] 119 mg/dL High 74-106 [facility] Comment on above: Result Comment: Fast ing Glucose result from 100 to 125 mg/dL suggests IMPAIRED HOMEOSTASIS per A.D.A. criteria. Performed By: #### L 100.0500, L500.2500 #### [facility] [address] [place], [address] Potassium [Moles/Vol] 3.8 mmol/L Normal 3.5-5.1 [facility] Comment on above: Performed By: #### L 100.0500, L500.2500 #### [facility] [address] [place], [address] Sodium [Moles/Vol] 134 mmol/L Low 136-145 [facility] Comment on above: Performed By: #### L 100.0500, L500.2500 #### [facility] [address] [place], [address] Urea nitrogen [Mass/Vol] 9 mg/dL Normal 7-18 [facility] Comment on above: Performed By: #### L 100.0500, L500.2500 #### [facility] [address] [place], [address] CBC-Complete Blood Cnt No Di ffon 12-13-2023 Erythrocyte distribution width (RBC) [Ratio] 14.1 % Normal 11.6-14.6 [facility] Comment on above: Performed By: #### L 100.0500, L500.2500 #### [facility] [address] [place], [address] Hematocrit (Bld) [Volume fraction] 42.8 % Normal 37-47 [facility] Comment on above: Performed By: #### L 100.0500, L500.2500 #### [facility] [address] [place], [address] Hemoglobin (Bld) [Mass/Vol] 13.5 g/dL Normal 12.0-15.0 [facility] Comment on above: Performed By: #### L 100.0500, L500.2500 #### [facility] [address] [place], [address] MCH (RBC) [Entitic mass] 30.3 pg Normal 27.0-32.0 [facility] Comment on above: Performed By: #### L 100.0500, L500.2500 #### [facility] [address] [place], [address] MCHC (RBC) [Mass/Vol] 31.5 g/dL Low 32-36 [facility] Comment on above: Performed By: #### L 100.0500, L500.2500 #### [facility] [address] [place], [address] MCV (RBC) [Entitic vol] 96.0 fL Normal 81-99 [facility] Comment on above: Performed By: #### L 100.0500, L500.2500 #### [facility] [address] [place], [address] Platelet mean volume (Bld) [Entitic vol] 11.8 fL Normal 6.2-12.0 [facility] Comment on above: Performed By: #### L 100.0500, L500.2500 #### [facility] [address] [place], [address] Platelets (Bld) [#/Vol] 201 10*3/uL Normal 150-450 [facility] Comment on above: Performed By: #### L 100.0500, L500.2500 #### [facility] [address] [place], [address] RBC (Bld) [#/Vol] 4.46 10*6/uL Normal 4.2-5.4 [facility] Comment on above: Performed By: #### L 100.0500, L500.2500 #### [facility] [address] [place], [address] RDW SD 49.3 fl High 35.1-43.9 [facility] Comment on above: Performed By: #### L 100.0500, L500.2500 #### [facility] [address] [place], [address] WBC (Bld) [#/Vol] 6.8 10*3/uL Normal 4.4-11.0 [facility] Comment on above: Performed By: #### L 100.0500, L500.2500 #### [facility] [address] [place], [address] Prothrombin Time w/INRon INR Coag (PPP) [Relative time] 1.6 {INR} Normal [facility] Comment on above: Performed By: #### L 300.3900 #### [facility] [address] [place], [address] PT Coag (PPP) [Time] 18.6 s High 11.7-14.9 [facility] Comment on above: Performed By: #### L 300.3900 #### [facility] [address] [place], [address] Urine Cultureon 12-13-2023 URC Below infection leve l. Mixed Gram Positive Organisms Bisbee Count 1000-10,000 MIXC Mixed contaminants. Submit a new specimen if indicated. Normal [facility] Comment on above: Performed By: #### L 300.3900 #### [facility] [address] [place], [address] Basic Metabolic Profile (BMP )on 12-12-2023 BUN/CRE 10.0 RATIO Normal 10-20 [facility] Comment on above: Performed By: #### L 300.3900 #### [facility] [address] [place], [address] CA,Total 9.0 mg/dL Normal 8.5-10.1 [facility] Comment on above: Performed By: #### L 300.3900 #### [facility] [address] [place], [address] Chloride [Moles/Vol] 102 mmol/L Normal 98-107 [facility] Comment on above: Performed By: #### L 300.3900 #### [facility] [address] [place], [address] CO2 [Moles/Vol] 24.0 mmol/L Normal 21.0-32.0 [facility] Comment on above: Performed By: #### L 300.3900 #### [facility] [address] [place], [address] Creatinine [Mass/Vol] 0.80 mg/dL Normal 0.55-1.02 [facility] Comment on above: Result Comment: The validity of the calculated GFR GFRAA in patients over 70 years has not been determined. Clinical correlation is essential. Performed By: #### L 300.3900 #### [facility] [address] [place], [address] ECRCL 56.67 ml/min Normal [facility] Comment on above: Performed By: #### L 300.3900 #### [facility] [address] [place], [address] EST GFR - AA 90 mL/min Normal >60 [facility] Comment on above: Result Comment: Afri can [place]gasque GFR Calc Performed By: #### L 300.3900 #### [facility] [address] [place], [address] GAP 9 Normal 5-15 [facility] Comment on above: Performed By: #### L 300.3900 #### [facility] [address] [place], [address] GFR/1.73 sq M.predicted among non-blacks MDRD (S/P/Bld) [Vol rate/Area] 75 mL/min/{1.73_m2} Normal >60 [facility] Comment on above: Result Comment: Non- GFR Calc Performed By: #### L 300.3900 #### [facility] [address] [place], [address] Glucose [Mass/Vol] 140 mg/dL High 74-106 [facility] Comment on above: Result Comment: Fast ing Glucose result greater than or equal to 126 mg/dL suggests DIABETES MELLITUS per A.D.A. criteria. Performed By: #### L 300.3900 #### [facility] [address] [place], [address] Potassium [Moles/Vol] 4.0 mmol/L Normal 3.5-5.1 [facility] Comment on above: Performed By: #### L 300.3900 #### [facility] [address] [place], [address] Sodium [Moles/Vol] 135 mmol/L Low 136-145 [facility] Comment on above: Performed By: #### L 300.3900 #### [facility] [address] [place], [address] Urea nitrogen [Mass/Vol] 8 mg/dL Normal 7-18 [facility] Comment on above: Performed By: #### L 300.3900 #### [facility] [address] [place], [address] CBC W/Diff, Automatedon 10-0 7-4 Absolute Lymph 1.56 X10 3/uL Normal 0.83-4.51 [facility] Comment on above: Performed By: #### L 300.3900 #### [facility] [address] [place], [address] Absolute Neut 7.8 X10 3/uL High 2.0-7.7 [facility] Comment on above: Performed By: #### L 300.3900 #### [facility] [address] [place], [address] Basophils/100 WBC (Bld) 0.4 % Normal 0-1 [facility] Comment on above: Performed By: #### L 300.3900 #### [facility] [address] [place], [address] Eosinophils/100 WBC (Bld) 3.5 % Normal 0-5 [facility] Comment on above: Performed By: #### L 300.3900 #### [facility] [address] [place], [address] Erythrocyte distribution width (RBC) [Ratio] 14.1 % Normal 11.6-14.6 [facility] Comment on above: Performed By: #### L 300.3900 #### [facility] [address] [place], [address] Hematocrit (Bld) [Volume fraction] 44.1 % Normal 37-47 [facility] Comment on above: Performed By: #### L 300.3900 #### [facility] [address] [place], [address] Hemoglobin (Bld) [Mass/Vol] 13.7 g/dL Normal 12.0-15.0 [facility] Comment on above: Performed By: #### L 300.3900 #### [facility] [address] [place], [address] IG% 0.300 Normal 0.0-0.9 [facility] Comment on above: Result Comment: IG% - Immature Granulocytes (promyelocytes, myelocytes and metamyelocytes) > 1% indicates that a LEFT SHIFT is Present. Performed By: #### L 300.3900 #### [facility] [address] [place], [address] Lymphocytes/100 WBC (Bld) 14.3 % Low 19-41 [facility] Comment on above: Performed By: #### L 300.3900 #### [facility] [address] [place], [address] MCH (RBC) [Entitic mass] 30.0 pg Normal 27.0-32.0 [facility] Comment on above: Performed By: #### L 300.3900 #### [facility] [address] [place], [address] MCHC (RBC) [Mass/Vol] 31.1 g/dL Low 32-36 [facility] Comment on above: Performed By: #### L 300.3900 #### [facility] [address] [place], [address] MCV (RBC) [Entitic vol] 96.7 fL Normal 81-99 [facility] Comment on above: Performed By: #### L 300.3900 #### [facility] [address] [place], [address] Monocytes/100 WBC (Bld) 9.7 % Normal 0-10 [facility] Comment on above: Performed By: #### L 300.3900 #### [facility] [address] [place], [address] Neutrophils/100 WBC (Bld) 71.8 % High 47-70 [facility] Comment on above: Performed By: #### L 300.3900 #### [facility] [address] [place], [address] Nucleated RBC (Bld) [#/Vol] 0 10*3/uL Normal 0-5 [facility] Comment on above: Performed By: #### L 300.3900 #### [facility] [address] [place], [address] Platelet mean volume (Bld) [Entitic vol] 12.4 fL High 6.2-12.0 [facility] Comment on above: Performed By: #### L 300.3900 #### [facility] [address] [place], [address] Platelets (Bld) [#/Vol] 187 10*3/uL Normal 150-450 [facility] Comment on above: Performed By: #### L 300.3900 #### [facility] [address] [place], [address] RBC (Bld) [#/Vol] 4.56 10*6/uL Normal 4.2-5.4 [facility] Comment on above: Performed By: #### L 300.3900 #### [facility] [address] [place], [address] RDW SD 50.5 fl High 35.1-43.9 [facility] Comment on above: Performed By: #### L 300.3900 #### [facility] [address] [place], [address] WBC (Bld) [#/Vol] 10.9 10*3/uL Normal 4.4-11.0 [facility] Comment on above: Performed By: #### L 300.3900 #### [facility] [address] [place], [address] Prothrombin Time w/INRon INR Coag (PPP) [Relative time] 1.4 {INR} Normal [facility] Comment on above: Performed By: #### L 300.3900 #### [facility] [address] [place], [address] PT Coag (PPP) [Time] 17.1 s High 11.7-14.9 [facility] Comment on above: Performed By: #### L 300.3900 #### [facility] [address] [place], [address] Basic Metabolic Profile (BMP )on 12-11-2023 BUN/CRE 13.7 RATIO Normal 10-20 [facility] Comment on above: Performed By: #### L 300.3900 #### [facility] [address] [place], [address] CA,Total 8.9 mg/dL Normal 8.5-10.1 [facility] Comment on above: Performed By: #### L 300.3900 #### [facility] [address] [place], [address] Chloride [Moles/Vol] 104 mmol/L Normal 98-107 [facility] Comment on above: Performed By: #### L 300.3900 #### [facility] [address] [place], [address] CO2 [Moles/Vol] 29.0 mmol/L Normal 21.0-32.0 [facility] Comment on above: Performed By: #### L 300.3900 #### [facility] [address] [place], [address] Creatinine [Mass/Vol] 0.88 mg/dL Normal 0.55-1.02 [facility] Comment on above: Result Comment: The validity of the calculated GFR GFRAA in patients over 70 years has not been determined. Clinical correlation is essential. Performed By: #### L 300.3900 #### [facility] [address] [place], [address] ECRCL 51.52 ml/min Normal [facility] Comment on above: Performed By: #### L 300.3900 #### [facility] [address] [place], [address] EST GFR - AA 81 mL/min Normal >60 [facility] Comment on above: Result Comment: Afri can [place] GFR Calc Performed By: #### L 300.3900 #### [facility] [address] [place], [address] GAP 4 Low 5-15 [facility] Comment on above: Performed By: #### L 300.3900 #### [facility] [address] [place], [address] GFR/1.73 sq M.predicted among non-blacks MDRD (S/P/Bld) [Vol rate/Area] 67 mL/min/{1.73_m2} Normal >60 [facility] Comment on above: Result Comment: Non- GFR Calc Performed By: #### L 300.3900 #### [facility] [address] [place], [address] Glucose [Mass/Vol] 123 mg/dL High 74-106 [facility] Comment on above: Result Comment: Fast ing Glucose result from 100 to 125 mg/dL suggests IMPAIRED HOMEOSTASIS per A.D.A. criteria. Performed By: #### L 300.3900 #### [facility] [address] [place], [address] Potassium [Moles/Vol] 4.4 mmol/L Normal 3.5-5.1 [facility] Comment on above: Performed By: #### L 300.3900 #### [facility] [address] [place], [address] Sodium [Moles/Vol] 137 mmol/L Normal 136-145 [facility] Comment on above: Performed By: #### L 300.3900 #### [facility] [address] [place], [address] Urea nitrogen [Mass/Vol] 12 mg/dL Normal 7-18 [facility] Comment on above: Performed By: #### L 300.3900 #### [facility] [address] [place], [address] CBC W/Diff, Automatedon 10-0 6-2024 Absolute Lymph 1.37 X10 3/uL Normal 0.83-4.51 [facility] Comment on above: Performed By: #### L 300.3900 #### [facility] [address] [place], [address] Absolute Neut 8.1 X10 3/uL High 2.0-7.7 [facility] Comment on above: Performed By: #### L 300.3900 #### [facility] [address] [place], [address] Basophils/100 WBC (Bld) 0.6 % Normal 0-1 [facility] Comment on above: Performed By: #### L 300.3900 #### [facility] [address] [place], [address] Eosinophils/100 WBC (Bld) 2.6 % Normal 0-5 [facility] Comment on above: Performed By: #### L 300.3900 #### [facility] [address] [place], [address] Erythrocyte distribution width (RBC) [Ratio] 14.5 % Normal 11.6-14.6 [facility] Comment on above: Performed By: #### L 300.3900 #### [facility] [address] [place], [address] Hematocrit (Bld) [Volume fraction] 45.2 % Normal 37-47 [facility] Comment on above: Performed By: #### L 300.3900 #### [facility] [address] [place], [address] Hemoglobin (Bld) [Mass/Vol] 14.0 g/dL Normal 12.0-15.0 [facility] Comment on above: Performed By: #### L 300.3900 #### [facility] [address] [place], [address] IG% 0.500 Normal 0.0-0.9 [facility] Comment on above: Result Comment: IG% - Immature Granulocytes (promyelocytes, myelocytes and metamyelocytes) > 1% indicates that a LEFT SHIFT is Present. Performed By: #### L 300.3900 #### [facility] [address] [facility] [place], [address] Lymphocytes/100 WBC (Bld) 12.8 % Low 19-41 [facility] Comment on above: Performed By: #### L 300.3900 #### [facility] [place], [address] MCH (RBC) [Entitic mass] 30.2 pg Normal 27.0-32.0 [facility] Comment on above: Performed By: #### L 300.3900 #### [facility] [address] [place], [address] MCHC (RBC) [Mass/Vol] 31.0 g/dL Low 32-36 [facility] Comment on above: Performed By: #### L 300.3900 #### [facility] [address] [place], [address] MCV (RBC) [Entitic vol] 97.4 fL Normal 81-99 [facility] Comment on above: Performed By: #### L 300.3900 #### [facility] [address] [place], [address] Monocytes/100 WBC (Bld) 8.4 % Normal 0-10 [facility] Comment on above: Performed By: #### L 300.3900 #### [facility] [address] [place], [address] Neutrophils/100 WBC (Bld) 75.1 % High 47-70 [facility] Comment on above: Performed By: #### L 300.3900 #### [facility] [address] [place], [address] Nucleated RBC (Bld) [#/Vol] 0 10*3/uL Normal 0-5 [facility] Comment on above: Performed By: #### L 300.3900 #### [facility] [address] [place], [address] Platelet mean volume (Bld) [Entitic vol] 12.4 fL High 6.2-12.0 [facility] Comment on above: Performed By: #### L 300.3900 #### [facility] [address] [place], [address] Platelets (Bld) [#/Vol] 188 10*3/uL Normal 150-450 [facility] Comment on above: Performed By: #### L 300.3900 #### [facility] [address] [place], [address] RBC (Bld) [#/Vol] 4.64 10*6/uL Normal 4.2-5.4 [facility] Comment on above: Performed By: #### L 300.3900 #### [facility] [address] [place], [address] RDW SD 52.2 fl High 35.1-43.9 [facility] Comment on above: Performed By: #### L 300.3900 #### [facility] [address] [place], [address] WBC (Bld) [#/Vol] 10.7 10*3/uL Normal 4.4-11.0 [facility] Comment on above: Performed By: #### L 300.3900 #### [facility] [address] [place], [address] Prothrombin Time w/INRon INR Coag (PPP) [Relative time] 1.5 {INR} Normal [facility] Comment on above: Performed By: #### L 300.3900 #### [facility] [address] [place], [address] PT Coag (PPP) [Time] 18.2 s High 11.7-14.9 [facility] Comment on above: Performed By: #### L 300.3900 #### [facility] [address] [place], [address] CTA Abd/Pelvis W/WO Contrast on 12-10-2023 CTA Abd/Pelvis W/WO Contrast [facility] Imaging Services [address] [place], [place] [address] CTA Abd/Pelvis W/WO Contrast MR#: [id number] Acct: [id number] Name: DIVYA JOSEPH Rep #: [id number] : 1950 F 73 From: Papo Monzon MD PCP: Dr. Erasmo Pierre MD Status: ADM DEBI Study: CTA Abd/Pelvis W/WO Contrast Date of Exam: 07/28 Exam# [id number] Ordering Dr: Lala Don MD [id number] INDICATION: small bowel obstruction EXAMINATION: CTA abdomen and pelvis - TECHNIQUE: Routine abdominal CT angiogram protocol was performed with IV contrast. MIP images provided. A radiation dose optimization technique was used for this scan. IV Contrast dosage and agent: Radiation dose DLP 581.92 mGy / cm. COMPARISON: None. FINDINGS: Lung bases: Mild subsegmental atelectasis in both lower lobes Liver: Nonspecific fatty infiltrated liver without mass or bile duct dilatation. Gallbladder: Gallbladder not visualized status post cholecystectomy. Spleen: Normal. Adrenal gland: Normal. Kidneys: . No hydronephrosis or stone formation. There is a parapelvic cyst in the right kidney. Pancreas:Normal. Bowel gas pattern: Nonobstructive. Diffuse fecal retention noted within the colon. Appendix: No evidence for acute appendicitis Free air: None. Free fluid: None. Pelvis: Pelvic organs: No mass lesion noted. Uterus not visualized status post hysterectomy Bone survey: Lumbar spine demonstrates degenerative change. Grade 1 spondylolisthesis at L5-S1 No aggressive bony lesions. No acute fractures. Adenopathy: No significant pathologic adenopathy detected. Other: None. Vascular: Diffuse atherosclerotic change of the aorta without evidence for aneurysm CT/CTA Abd/Pelvis W/WO Contrast IMPRESSION: Diffuse fecal retention noted within the colon. No evidence for small bowel obstruction or pneumoperitoneum Status post cholecystectomy and hysterectomy Electronically Signed: Papo Monzon MD at 17:28 EDT Reading Location ID and State: [facility] / [place] Tel , Service support , CC: Dr. Erasmo Pierre MD; Dr. Lala Don MD Jig Maker: Signed Normal [facility] No Panel Informationon 07-07 INR International Normalized Ratio 2.2 [facility] Absolute lymphocyte countOrd ered By: Quinnleah Pérez on 07-05-2023 Lymphocytes Auto (Unsp spec) [#/Vol] 3.25 10*3/uL 0.83-4.51 [facility] Automated lymphocyte count a s percentage of total leukocytesOrdered By: Cairnbrook Beto on 07-05-2023 Lymphocytes/100 WBC Auto (Unsp spec) 31.4 % 19-41 [facility] Basophil percentageOrdered B y: Cairnbrook Beto on 07-05-2023 Basophils/100 WBC (Bld) 0.6 % 0-1 [facility] Eosinophils/100 WBC (Bld) 3.6 % 0-5 [facility] Hemoglobin (Bld) [Mass/Vol] 15.7 g/dL 12.0-15.0 [facility] Monocytes/100 WBC (Bld) 6.9 % 0-10 [facility] Neutrophils (Bld) [#/Vol] 5.9 10*3/uL 2.0-7.7 [facility] Neutrophils/100 WBC (Bld) 57.2 % 47-70 [facility] WBC (Bld) [#/Vol] 10.4 10*3/uL 4.4-11.0 [facility] Determination of erythrocyte mean corpuscular volume (MCV)Ordered By: Quinn Pérez on 07-05-2023 MCV (RBC) [Entitic vol] 92.8 fL 81-99 [facility] Erythrocyte distribution wid th ratioOrdered By: Cairnbrook Beto on 07-05-2023 Erythrocyte distribution width (RBC) [Ratio] 13.4 % 11.6-14.6 [facility] Erythrocyte distribution wid th standard deviationOrdered By: Quinn Beto on 07-05-2023 Erythrocyte distribution width (RBC) [Entitic vol] 45.9 fL 35.1-43.9 [facility] Erythrocyte sedimentation ra teOrdered By: Quinnleah Pérez on 07-05-2023 ESR (Bld) [Velocity] 15 mm/h 0-30 [facility] Hematocrit Auto (Bld) [Volum e fraction]Ordered By: Quinn Pérez on 07-05-2023 Hematocrit (Bld) [Volume fraction] 49.0 % 37-47 [facility] Immature granulocytes/100 WB C Auto (Bld)Ordered By: Quinn Pérez on 07-05-2023 Immature granulocytes/100 WBC (Bld) 0.300 % 0.0-0.9 [facility] Comment on above: IG% - Immature Granu locytes (promyelocytes, myelocytes and metamyelocytes) > 1% indicates that a LEFT SHIFT is Present. Laboratory - Hematology and Cell countsOrdered By: Quinn Pérez on 07-05-2023 MCH (RBC) [Entitic mass] 29.7 pg 27.0-32.0 [facility] MCHC (RBC) [Mass/Vol] 32.0 g/dL 32-36 [facility] Nucleated RBC/100 WBC (Bld) [Ratio] 0 % 0-5 [facility] Platelet mean volume (Bld) [Entitic vol] 13.4 fL 6.2-12.0 [facility] Platelets (Bld) [#/Vol] 219 10*3/uL 150-450 [facility] RBC Auto (Bld) [#/Vol]Ordere d By: Cairnbrookleah Pérez on 07-05-2023 RBC (Bld) [#/Vol] 5.28 10*6/uL 4.2-5.4 [facility] No Panel Informationon 06-30 INR International Normalized Ratio 1.8 [facility] No Panel Informationon 06-16 INR International Normalized Ratio 2.5 [facility] Capillary blood internationa l normalized ratio (INR)Ordered By: Quinn Beto on 05-23-2023 INR Coag (BldC) [Relative time] 1.2 [facility] Comment on above: Critical Value > 4.0 Whole blood prothrombin time Ordered By: Quinn Beto on 05-23-2023 PT Coag (Bld) [Time] 13.1 s 11.7-14.9 [facility] No Panel Informationon 05-19 INR International Normalized Ratio 1.4 [facility] Basophil percentageOrdered B y: Quinn Beto on 05-17-2023 Basophil percentage 5-10 SEEN /hpf 0-5 [facility] Chloride [Moles/Vol] 104 mmol/L 98-107 [facility] Glucose [Mass/Vol] 113 mg/dL 74-106 [facility] Comment on above: Fasting Glucose resu lt from 100 to 125 mg/dL suggests IMPAIRED HOMEOSTASIS per A.D.A. criteria. Hemoglobin (Bld) [Mass/Vol] 15.1 g/dL 12.0-15.0 [facility] Potassium [Moles/Vol] 3.7 mmol/L 3.5-5.1 [facility] Comment on above: Slight Hemolysis, Re sult may be falsely increased. Sodium [Moles/Vol] 138 mmol/L 136-145 [facility] WBC (Bld) [#/Vol] 9.4 10*3/uL 4.4-11.0 [facility] Bilirubin Test strip Ql (U)O rdered By: Quinn Beto on 05-17-2023 Bilirubin Ql (U) Negative Negative [facility] Determination of erythrocyte mean corpuscular volume (MCV)Ordered By: Quinn Pérez on 05-17-2023 MCV (RBC) [Entitic vol] 93.9 fL 81-99 [facility] Erythrocyte distribution wid th ratioOrdered By: Quinn Pérez on 05-17-2023 Erythrocyte distribution width (RBC) [Ratio] 14.0 % 11.6-14.6 [facility] Erythrocyte distribution wid th standard deviationOrdered By: Quinn Pérez on 05-17-2023 Erythrocyte distribution width (RBC) [Entitic vol] 48.1 fL 35.1-43.9 [facility] Hematocrit Auto (Bld) [Volum e fraction]Ordered By: Quinn Pérez on 05-17-2023 Hematocrit (Bld) [Volume fraction] 47.5 % 37-47 [facility] Ketones Test strip Ql (U)Ord ered By: Quinn Pérez on 05-17-2023 Ketones Ql (U) 5 mg/dl Negative [facility] - Chemistry and C hemistry - challengeOrdered By: Quinn Pérez on 05-17-2023 CO2 [Moles/Vol] 28.0 mmol/L 21.0-32.0 [facility] Urea nitrogen/Creatinine [Mass ratio] 7.8 mg/mg 10-20 [facility] - CoagulationOrde red By: Quinn Pérez on 05-17-2023 INR Coag (Bld) [Relative time] 1.9 {INR} [facility] PT Coag (PPP) [Time] 21.6 s 11.7-14.9 [facility] - Hematology and Cell countsOrdered By: Quinn Pérez on 05-17-2023 MCH (RBC) [Entitic mass] 29.8 pg 27.0-32.0 [facility] MCHC (RBC) [Mass/Vol] 31.8 g/dL 32-36 [facility] Platelet mean volume (Bld) [Entitic vol] 13.1 fL 6.2-12.0 [facility] Platelets (Bld) [#/Vol] 218 10*3/uL 150-450 [facility] Mucus LM Ql (Urine sed)Order ed By: Quinn Pérez on 05-17-2023 Mucus Ql (Urine sed) 0 SEEN /hpf [facility] Nitrite Test strip Ql (U)Ord ered By: Quinn Pérez on 05-17-2023 Nitrite Ql (U) Negative Negative [facility] No Panel InformationOrdered By: Quinn Pérez on 05-17-2023 Estimated GFR (MDRD) Amer 59 mL/min >60 [facility] Comment on above: GFR Calc Estimated GFR (MDRD) Non-Af Amer 49 mL/min >60 [facility] Comment on above: Non- GFR Calc Urine RBC 0 SEEN /hpf 0-5 [facility] Protein Test strip Ql (U)Ord ered By: Quinn Pérez on 05-17-2023 Protein Ql (U) 15 mg/dl Negative [facility] RBC Auto (Bld) [#/Vol]Ordere d By: Quinn Pérez on 05-17-2023 RBC (Bld) [#/Vol] 5.06 10*6/uL 4.2-5.4 [facility] Serum or plasma calcium kendall urement (mass/volume)Ordered By: Quinn Pérez on 05-17-2023 Calcium [Mass/Vol] 9.1 mg/dL 8.5-10.1 [facility] Serum or plasma creatinine m easurement (mass/volume)Ordered By: Quinn Pérez on 05-17-2023 Creatinine [Mass/Vol] 1.15 mg/dL 0.55-1.02 [facility] Comment on above: The validity of the calculated GFR & GFRAA in patients over 70 years has not been determined. Clinical correlation is essential. Serum or plasma urea nitroge n measurement (mass/volume)Ordered By: Quinn Pérez on 05-17-2023 Urea nitrogen [Mass/Vol] 9 mg/dL 7-18 [facility] Squamous epithelial cells de tection in urine sediment by light microscopyOrdered By: Quinn Pérez on 05-17-2023 Epithelial cells.squamous LM Ql (Urine sed) 0-5 SEEN /hpf 5-10 [facility] Thin prep Papanicolaou smear with manual screeningOrdered By: Quinn Pérez on 05-17-2023 Thin prep Papanicolaou smear with manual screening 6 5-15 [facility] Urine blood detectionOrdered By: Quinn Pérez on 05-17-2023 RBC Ql (U) 10 /ul Negative [facility] Urine clarityOrdered By: Nathaniel Pérez on 05-17-2023 Clarity (U) Clear Clear [facility] Urine color determinationOrd ered By: Quinn Pérez on 05-17-2023 Color (U) Yellow Yellow [facility] Urine glucose detectionOrder ed By: Quinn Pérez on 05-17-2023 Glucose Ql (U) Normal mg/dl Normal [facility] Urine leukocyte esterase det ection by dipstickOrdered By: Quinn Pérez on 05-17-2023 Leukocyte esterase Test strip Ql (U) 500 /ul Negative [facility] Urine pHOrdered By: Shahla on 05-17-2023 pH (U) 6.5 [pH] 5.0 - 8.0 [facility] Urine sediment bacteria coun t by microscopy (number/high power field)Ordered By: Quinn Pérez on 05-17-2023 Bacteria LM.HPF (Urine sed) [#/Area] 0 /[HPF] None Seen [facility] Urine specific gravity measu rementOrdered By: Quinn Pérez on 05-17-2023 Specific gravity (U) [Rel density] 1.010 1.002-1.030 [facility] Urine urobilinogen measureme ntOrdered By: Quinn Pérez on 05-17-2023 Urobilinogen Ql (U) Normal mg/dl Normal [facility] Absolute lymphocyte countOrd ered By: Erasmo Pierre on 05-11-2023 Lymphocytes Auto (Unsp spec) [#/Vol] 2.19 10*3/uL 0.83-4.51 [facility] Automated lymphocyte count a s percentage of total leukocytesOrdered By: Erasmo Pierre on 05-11-2023 Lymphocytes/100 WBC Auto (Unsp spec) 22.4 % 19-41 [facility] Basophil percentageOrdered B y: Erasmo Pierre on 05-11-2023 Basophil percentage 2.2 mg/dL 2.5-4.9 [facility] Basophils/100 WBC (Bld) 0.5 % 0-1 [facility] Bilirubin [Mass/Vol] 0.90 mg/dL 0.20-1.00 [facility] Comment on above: For patients on eltr ombopag therapy, use of Dimension [place] TBIL is not recommended. Chloride [Moles/Vol] 105 mmol/L 98-107 [facility] Eosinophils/100 WBC (Bld) 1.8 % 0-5 [facility] Glucose [Mass/Vol] 117 mg/dL 74-106 [facility] Comment on above: Fasting Glucose resu lt from 100 to 125 mg/dL suggests IMPAIRED HOMEOSTASIS per A.D.A. criteria. Hemoglobin (Bld) [Mass/Vol] 14.9 g/dL 12.0-15.0 [facility] Monocytes/100 WBC (Bld) 7.8 % 0-10 [facility] Neutrophils (Bld) [#/Vol] 6.6 10*3/uL 2.0-7.7 [facility] Neutrophils/100 WBC (Bld) 67.2 % 47-70 [facility] Potassium [Moles/Vol] 3.1 mmol/L 3.5-5.1 [facility] Protein [Mass/Vol] 7.1 g/dL 6.4-8.2 [facility] Sodium [Moles/Vol] 140 mmol/L 136-145 [facility] WBC (Bld) [#/Vol] 9.8 10*3/uL 4.4-11.0 [facility] Determination of erythrocyte mean corpuscular volume (MCV)Ordered By: Erasmo Pierre on 05-11-2023 MCV (RBC) [Entitic vol] 93.6 fL 81-99 [facility] Erythrocyte distribution wid th ratioOrdered By: Erasmo Pierre on 05-11-2023 Erythrocyte distribution width (RBC) [Ratio] 14.0 % 11.6-14.6 [facility] Erythrocyte distribution wid th standard deviationOrdered By: Erasmo Pierre on 05-11-2023 Erythrocyte distribution width (RBC) [Entitic vol] 47.7 fL 35.1-43.9 [facility] Hematocrit Auto (Bld) [Volum e fraction]Ordered By: Erasmo Pierre on 05-11-2023 Hematocrit (Bld) [Volume fraction] 47.0 % 37-47 [facility] Immature granulocytes/100 WB C Auto (Bld)Ordered By: Erasmo Pierre on 05-11-2023 Immature granulocytes/100 WBC (Bld) 0.300 % 0.0-0.9 [facility] Comment on above: IG% - Immature Granu locytes (promyelocytes, myelocytes and metamyelocytes) > 1% indicates that a LEFT SHIFT is Present. Laboratory - Chemistry and C hemistry - challengeOrdered By: Erasmo Pierre on 05-11-2023 Albumin/Globulin [Mass ratio] 1.0 {ratio} 0.9-2.4 [facility] ALP [Catalytic activity/Vol] 93 U/L 45-117 [facility] ALT [Catalytic activity/Vol] 68 U/L 13-56 [facility] CO2 [Moles/Vol] 28.0 mmol/L 21.0-32.0 [facility] Globulin (S) [Mass/Vol] 3.6 g/dL 2.2-4.2 [facility] Magnesium [Mass/Vol] 2.1 mg/dL 1.6-2.6 [facility] Urea nitrogen/Creatinine [Mass ratio] 4.5 mg/mg 10-20 [facility] - Hematology and Cell countsOrdered By: Erasmo Pierre on 05-11-2023 MCH (RBC) [Entitic mass] 29.7 pg 27.0-32.0 [facility] MCHC (RBC) [Mass/Vol] 31.7 g/dL 32-36 [facility] Nucleated RBC/100 WBC (Bld) [Ratio] 0 % 0-5 [facility] Platelet mean volume (Bld) [Entitic vol] 12.5 fL 6.2-12.0 [facility] [facility] Platelets (Bld) [#/Vol] 213 10*3/uL 150-450 [facility] No Panel InformationOrdered By: Erasmo Pierre on 05-11-2023 Estimated GFR (MDRD) Amer 61 mL/min >60 [facility] Comment on above: GFR Calc Estimated GFR (MDRD) Non-Af Amer 51 mL/min >60 [facility] Comment on above: Non- GFR Calc Hepatitis B Surface Antigen Preliminary Reactive Nonreactive [facility] Comment on above: Critical Result(s) C alled at: 09:58:25 05/12/2023 by: Sami Martel to Bernardino RODRIGUEZ ('S OFFICE). Results read back by same. [id number] CONFIRMATION.Presumptive Reactive HBsAG verified by algorithm coupled with screening index. Hepatitis C Antibody Non-Reactive Nonreactive [facility] Comment on above: Non Reactive: < 0.8 Equivocal: >/= 0.8 to < 1.0 Reactive: >/= 1.0The CDC requires that a reactive/equivocal HCV antibody result be sent out for confirmation. HCV Quant by PCR testing. Miscellaneous Test See comment [facility] Comment on above: TEST RESULTS LIMITS BsAg Screen Negative Negative TESTING PERFORMED AT [facility]. ORIGINAL REPORT ON FILE IN LAB CONTAINS ADDITIONAL TEST SITE INFORMATION. RBC Auto (Bld) [#/Vol]Ordere d By: Erasmo Pierre on 05-11-2023 RBC (Bld) [#/Vol] 5.02 10*6/uL 4.2-5.4 [facility] Serum hepatitis B virus surf melisa antibody IgG detectionOrdered By: Erasmo Pierre on 05-11-2023 HBV surface IgG Ql (S) Non-Reactive [facility] Comment on above: Non Reactive: Incons istent with immunity less than <10 mIU/mL Reactive: Consistent with immunity greater than or equal to 10 mIU/mL Serum or plasma calcium kendall urement (mass/volume)Ordered By: Erasmo Pierre on 05-11-2023 Calcium [Mass/Vol] 8.7 mg/dL 8.5-10.1 [facility] Serum or plasma creatinine m easurement (mass/volume)Ordered By: Erasmo Pierre on 05-11-2023 Creatinine [Mass/Vol] 1.12 mg/dL 0.55-1.02 [facility] Comment on above: The validity of the calculated GFR & GFRAA in patients over 70 years has not been determined. Clinical correlation is essential. Serum or plasma urea nitroge n measurement (mass/volume)Ordered By: Erasmo Pierre on 05-11-2023 Urea nitrogen [Mass/Vol] 5 mg/dL 7-18 [facility] Thin prep Papanicolaou smear with manual screeningOrdered By: Erasmo Pierre on 05-11-2023 Thin prep Papanicolaou smear with manual screening 3.5 g/dL 3.2-5.0 [facility] Thin prep Papanicolaou smear with manual screening 91 U/L 15-37 [facility] Thin prep Papanicolaou smear with manual screening 7 5-15 [facility] No Panel Informationon 04-29 INR International Normalized Ratio 1.9 [facility] No Panel Informationon 04-08 INR International Normalized Ratio 2.4 [facility] Basophil percentageOrdered B y: Erasmo Pierre on 04-01-2023 Basophil percentage 10-25 SEEN /hpf 0-5 [facility] Bilirubin Test strip Ql (U)O rdered By: Erasmo Pierre on 04-01-2023 Bilirubin Ql (U) Negative Negative [facility] Ketones Test strip Ql (U)Ord ered By: Erasmo Pierre on 04-01-2023 Ketones Ql (U) Negative Negative [facility] Mucus LM Ql (Urine sed)Order ed By: Erasmo Pierre on 04-01-2023 Mucus Ql (Urine sed) 0 SEEN /hpf [facility] Nitrite Test strip Ql (U)Ord ered By: Erasmo Pierre on 04-01-2023 Nitrite Ql (U) Negative Negative [facility] No Panel InformationOrdered By: Erasmo Pierre on 04-01-2023 Urine RBC 0 SEEN /hpf 0-5 [facility] No Panel Informationon 04-01 INR International Normalized Ratio 3.5 [facility] Protein Test strip Ql (U)Ord ered By: Erasmo Pierre on 04-01-2023 Protein Ql (U) Negative Negative [facility] Squamous epithelial cells de tection in urine sediment by light microscopyOrdered By: Erasmo Pierre on 04-01-2023 Epithelial cells.squamous LM Ql (Urine sed) 0-5 SEEN /hpf 5-10 [facility] Thin prep Papanicolaou smear with manual screeningOrdered By: Erasmo Pierre on 04-01-2023 Thin prep Papanicolaou smear with manual screening < 6.0 mg/dL 0.0-11.8 [facility] Urine blood detectionOrdered By: Erasmo Pierre on 04-01-2023 RBC Ql (U) Negative Negative [facility] Urine clarityOrdered By: Hira Pierre on 04-01-2023 Clarity (U) Clear Clear [facility] Urine color determinationOrd ered By: Erasmo Pierre on 04-01-2023 Color (U) Yellow Yellow [facility] Urine creatinine measurement (mass/volume)Ordered By: Erasmo Pierre on 04-01-2023 Creatinine (U) [Mass/Vol] 57.10 mg/dL NO RANGE EST. [facility] Urine glucose detectionOrder ed By: Erasmo Pierre on 04-01-2023 Glucose Ql (U) Normal mg/dl Normal [facility] Urine leukocyte esterase det ection by dipstickOrdered By: Erasmo Pierre on 04-01-2023 Leukocyte esterase Test strip Ql (U) 100 /ul Negative [facility] Urine pHOrdered By: Erasmo rivera on 04-01-2023 pH (U) 6.0 [pH] 5.0 - 8.0 [facility] Urine protein/creatinine mas s ratioOrdered By: Erasmo Pierre on 04-01-2023 Protein/Creatinine (U) [Mass ratio] 89 mg/g CRE 0-200 [facility] Urine sediment bacteria coun t by microscopy (number/high power field)Ordered By: Erasmo Pierre on 04-01-2023 Bacteria LM.HPF (Urine sed) [#/Area] 0 /[HPF] None Seen [facility] Urine specific gravity measu rementOrdered By: Erasmo Pierre on 04-01-2023 Specific gravity (U) [Rel density] 1.010 1.002-1.030 [facility] Urine urobilinogen measureme ntOrdered By: Erasmo Ignacio on 04-01-2023 Urobilinogen Ql (U) Normal mg/dl Normal [facility] Absolute lymphocyte countOrd ered By: Erasmo Pierre on 03-31-2023 Lymphocytes Auto (Unsp spec) [#/Vol] 1.99 10*3/uL 0.83-4.51 [facility] Automated lymphocyte count a s percentage of total leukocytesOrdered By: Erasmo Pierre on 03-31-2023 Lymphocytes/100 WBC Auto (Unsp spec) 23.8 % 19-41 [facility] Basophil percentageOrdered B y: Erasmo Pierre on 03-31-2023 Basophil percentage 2.1 mg/dL 2.5-4.9 [facility] Basophils/100 WBC (Bld) 0.6 % 0-1 [facility] Bilirubin [Mass/Vol] 0.50 mg/dL 0.20-1.00 [facility] Comment on above: For patients on eltr ombopag therapy, use of Dimension [place] TBIL is not recommended. Chloride [Moles/Vol] 106 mmol/L 98-107 [facility] Cholesterol [Mass/Vol] 213 mg/dL <200 [facility] Comment on above: <200 mg/dL Desirable 200-240 mg/dL Borderline >240 mg/dL High Risk Eosinophils/100 WBC (Bld) 2.9 % 0-5 [facility] Glucose [Mass/Vol] 125 mg/dL 74-106 [facility] Comment on above: Fasting Glucose resu lt from 100 to 125 mg/dL suggests IMPAIRED HOMEOSTASIS per A.D.A. criteria. Hemoglobin (Bld) [Mass/Vol] 15.8 g/dL 12.0-15.0 [facility] Monocytes/100 WBC (Bld) 5.9 % 0-10 [facility] Neutrophils (Bld) [#/Vol] 5.6 10*3/uL 2.0-7.7 [facility] Neutrophils/100 WBC (Bld) 66.4 % 47-70 [facility] Potassium [Moles/Vol] 3.7 mmol/L 3.5-5.1 [facility] Comment on above: Slight Hemolysis, Re sult may be falsely increased. Protein [Mass/Vol] 7.2 g/dL 6.4-8.2 [facility] Sodium [Moles/Vol] 136 mmol/L 136-145 [facility] Triglyceride [Mass/Vol] 220 mg/dL <199 [facility] Comment on above: The drugs N-Acetylcy steine and Metamizole may falsely depress this assay.Serum Triglycerides Reference Interval Normal <150 mg/dL Borderline high 150 - 199 mg/dL High 200 - 499 mg/dL Very High > or = 500 mg/dL WBC (Bld) [#/Vol] 8.4 10*3/uL 4.4-11.0 [facility] Determination of erythrocyte mean corpuscular volume (MCV)Ordered By: Erasmo Pierre on 03-31-2023 MCV (RBC) [Entitic vol] 94.5 fL 81-99 [facility] Erythrocyte distribution wid th ratioOrdered By: Erasmo Pierre on 03-31-2023 Erythrocyte distribution width (RBC) [Ratio] 13.3 % 11.6-14.6 [facility] Erythrocyte distribution wid th standard deviationOrdered By: Erasmo Pierre on 03-31-2023 Erythrocyte distribution width (RBC) [Entitic vol] 45.7 fL 35.1-43.9 [facility] Hematocrit Auto (Bld) [Volum e fraction]Ordered By: Erasmo Pierre on 03-31-2023 Hematocrit (Bld) [Volume fraction] 49.5 % 37-47 [facility] High density lipoprotein (HD L) measurementOrdered By: Erasmo Pierre on 03-31-2023 Cholesterol in HDL (Body fld) [Mass/Vol] 41 mg/dL >40 [facility] Comment on above: The drugs N-Acetylcy steine and Metamizole may falsely depress this assay. Reference Range HDL <40 mg/dL Low HDL Cholesterol HDL >or= 60 mg/dL High HDL Cholesterol Immature granulocytes/100 WB C Auto (Bld)Ordered By: Erasmo Pierre on 03-31-2023 Immature granulocytes/100 WBC (Bld) 0.400 % 0.0-0.9 [facility] Comment on above: IG% - Immature Granu locytes (promyelocytes, myelocytes and metamyelocytes) > 1% indicates that a LEFT SHIFT is Present. Intact parathyroid hormone ( iPTH) measurementOrdered By: Erasmo Pierre on 03-31-2023 Parathyrin.intact (Tissue fine needle aspirate) [Mass/Vol] 327.3 pg/mL 18.4-80.1 [facility] Laboratory - Chemistry and C hemistry - challengeOrdered By: Erasmo Pierre on 03-31-2023 Albumin/Globulin [Mass ratio] 0.9 {ratio} 0.9-2.4 [facility] ALP [Catalytic activity/Vol] 93 U/L 45-117 [facility] ALT [Catalytic activity/Vol] 49 U/L 13-56 [facility] CO2 [Moles/Vol] 22.0 mmol/L 21.0-32.0 [facility] Globulin (S) [Mass/Vol] 3.8 g/dL 2.2-4.2 [facility] Magnesium [Mass/Vol] 2.2 mg/dL 1.6-2.6 [facility] Comment on above: Slight Hemolysis, Re sult may be falsely increased. Urea nitrogen/Creatinine [Mass ratio] 5.0 mg/mg 10-20 [facility] Laboratory - Hematology and Cell countsOrdered By: Erasmo Pierre on 03-31-2023 MCH (RBC) [Entitic mass] 30.2 pg 27.0-32.0 [facility] MCHC (RBC) [Mass/Vol] 31.9 g/dL 32-36 [facility] Nucleated RBC/100 WBC (Bld) [Ratio] 0 % 0-5 [facility] Platelets (Bld) [#/Vol] 204 10*3/uL 150-450 [facility] Low density lipoprotein (LDL ) cholesterol measurementOrdered By: Erasmo Pierre on 03-31-2023 Cholesterol in LDL (Body fld) [Moles/Vol] 128 mg/dL 0-130 [facility] No Panel InformationOrdered By: Erasmo Pierre on 03-31-2023 Thyroglobulin Antibody < 1.0 IU/mL 0.0-0.9 [facility] Comment on above: Thyroglobulin Antibo dy measured by [employer] Thyroglobulin Level 5.0 ng/mL 1.5-38.5 [facility] Comment on above: According to the [facility] [employer],the reference interval for Thyroglobulin (TG) should berelated to euthyroid patients and not for patients whounderwent thyroidectomy. TG reference intervals for thesepatients depend on the residual mass of the thyroid tissueleft after surgery. Establishing a post-operative baselineis recommended. The assay limit of quantitation is 0.1ng/mLThyroglobulin measured by [employer] Estimated GFR (MDRD) Amer 57 mL/min >60 [facility] Comment on above: GFR Calc Estimated GFR (MDRD) Non-Af Amer 47 mL/min >60 [facility] Comment on above: Non- GFR Calc Hepatitis B Surface Antigen Non-Reactive Nonreactive [facility] Hepatitis C Antibody Non-Reactive Nonreactive [facility] Comment on above: Non Reactive: < 0.8 Equivocal: >/= 0.8 to < 1.0 Reactive: >/= 1.0The [facility] recommends that a reactive/equivocal HCV antibody result be followed up by the HCV Nucleic Acid Amplificationtest (988555) Vitamin D 25-Hydroxy 37.2 ng/mL [facility] Comment on above: Vitamin D 25(OH) Sta tus Range Deficiency <20 ng/mL (50nmol/L) Insufficiency 20 - 30 ng/mL (50 - 75 nmol/L) Sufficiency 30 - 100 ng/mL (75 - 250 nmol/L) Toxicity >100 ng/mL (>250 nmol/L) Platelet mean volume Justyn-Ec ker (Bld) [Entitic vol]Ordered By: Erasmo Pierre on 03-31-2023 Platelet mean volume (Bld) [Entitic vol] 12.5 fL 6.2-12.0 [facility] RBC Auto (Bld) [#/Vol]Ordere d By: Erasmo Pierre on 03-31-2023 RBC (Bld) [#/Vol] 5.24 10*6/uL 4.2-5.4 [facility] Serum hepatitis B virus surf melisa antibody IgG detectionOrdered By: Erasmo Pierre on 03-31-2023 HBV surface IgG Ql (S) Non-Reactive [facility] Comment on above: Non Reactive: Incons istent with immunity less than <10 mIU/mL Reactive: Consistent with immunity greater than or equal to 10 mIU/mL Serum or plasma calcium kendall urement (mass/volume)Ordered By: Erasmo Pierre on 03-31-2023 Calcium [Mass/Vol] 9.2 mg/dL 8.5-10.1 [facility] Serum or plasma creatinine m easurement (mass/volume)Ordered By: Erasmo Pierre on 03-31-2023 Creatinine [Mass/Vol] 1.20 mg/dL 0.55-1.02 [facility] Comment on above: The validity of the calculated GFR & GFRAA in patients over 70 years has not been determined. Clinical correlation is essential. Serum or plasma thyroid stim ulating hormone (TSH) measurement (units/volume)Ordered By: Erasmo Pierre on 03-31-2023 TSH Qn 2.07 uIU/mL 0.358-3.74 [facility] Serum or plasma thyroperoxid ase antibody assay (units/volume)Ordered By: Erasmo Pierre on 03-31-2023 TPO Ab Qn 10 [IU]/mL 0-34 [facility] Comment on above: Performed at: [facility] [address] Director: Kiran Nguyen PhD, Phone: [phone] Serum or plasma urea nitroge n measurement (mass/volume)Ordered By: Erasmo Pierre on 03-31-2023 Urea nitrogen [Mass/Vol] 6 mg/dL 7-18 [facility] Thin prep Papanicolaou smear with manual screeningOrdered By: Erasmo Pierre on 03-31-2023 Thin prep Papanicolaou smear with manual screening 3.4 g/dL 3.2-5.0 [facility] Thin prep Papanicolaou smear with manual screening 57 U/L 15-37 [facility] Comment on above: Slight Hemolysis, Re sult may be falsely increased. Thin prep Papanicolaou smear with manual screening 8 5-15 [facility] Thin prep Papanicolaou smear with manual screening 1.06 ng/dL 0.76-1.46 [facility] Very low density lipoprotein (VLDL) cholesterol measurementOrdered By: Erasmo Pierre on 03-31-2023 Cholesterol in VLDL Calc [Moles/Vol] 44 mg/dL 5-40 [facility] Whole blood hemoglobin A1c/t otal hemoglobin ratio (mass fraction)Ordered By: Erasmo Pierre on 03-31-2023 HbA1c (Bld) [Mass fraction] 5.8 % 3.8-5.6 [facility] Comment on above: Normal < 5.7 % Predi abetic 5.7 - 6.4 % Diabetic >or= 6.5 % Please note range changes. No Panel Informationon 03-18 INR International Normalized Ratio 2.4 [facility] No Panel Informationon 03-04 INR International Normalized Ratio 2.5 [facility] No Panel Informationon 02-18 INR International Normalized Ratio 2.1 [facility] No Panel Informationon 02-11 INR International Normalized Ratio 1.7 [facility] Absolute lymphocyte countOrd ered By: Jordana Garcia on 02-01-2023 Lymphocytes Auto (Unsp spec) [#/Vol] 2.13 10*3/uL 0.83-4.51 [facility] Basophil percentageOrdered B y: Jordana Garcia on 02-01-2023 Basophils/100 WBC (Bld) 0.9 % 0-1 [facility] Chloride [Moles/Vol] 104 mmol/L 98-107 [facility] Eosinophils/100 WBC (Bld) 2.7 % 0-5 [facility] Glucose [Mass/Vol] 112 mg/dL 74-106 [facility] Comment on above: Fasting Glucose resu lt from 100 to 125 mg/dL suggests IMPAIRED HOMEOSTASIS per A.D.A. criteria. Neutrophils (Bld) [#/Vol] 6.3 10*3/uL 2.0-7.7 [facility] Neutrophils/100 WBC (Bld) 64.9 % 47-70 [facility] Potassium [Moles/Vol] 3.4 mmol/L 3.5-5.1 [facility] Sodium [Moles/Vol] 138 mmol/L 136-145 [facility] WBC (Bld) [#/Vol] 9.6 10*3/uL 4.4-11.0 [facility] Blood erythrocytes count (nu mber/volume)Ordered By: Jordana Garcia on 02-01-2023 RBC (Bld) [#/Vol] 5.13 10*6/uL 4.2-5.4 [facility] Blood hemoglobin measurement (mass/volume)Ordered By: Jordana Garcia on 02-01-2023 Hemoglobin (Bld) [Mass/Vol] 15.6 g/dL 12.0-15.0 [facility] Blood lymphocytes/100 leukoc ytesOrdered By: Jordana Garcia on 02-01-2023 Lymphocytes/100 WBC (Bld) 22.1 % 19-41 [facility] Blood monocytes/100 leukocyt esOrdered By: Jordana Garcia on 02-01-2023 Monocytes/100 WBC (Bld) 8.9 % 0-10 [facility] Blood platelet mean volumeOr dered By: Jordana Garcia on 02-01-2023 Platelet mean volume (Bld) [Entitic vol] 13.3 fL 6.2-12.0 [facility] Determination of erythrocyte mean corpuscular volume (MCV)Ordered By: Jordana Garcia on 02-01-2023 MCV (RBC) [Entitic vol] 97.3 fL 81-99 [facility] Hematocrit Auto (Bld) [Volum e fraction]Ordered By: Jordana Garcia on 02-01-2023 Hematocrit (Bld) [Volume fraction] 49.9 % 37-47 [facility] Laboratory - Chemistry and C hemistry - challengeOrdered By: Jordana Garcia on 02-01-2023 CO2 [Moles/Vol] 26.0 mmol/L 21.0-32.0 [facility] Natriuretic peptide B (Bld) [Mass/Vol] 39.1 pg/mL 0-100 [facility] Urea nitrogen/Creatinine [Mass ratio] 8.7 mg/mg 10-20 [facility] Laboratory - Hematology and Cell countsOrdered By: Jordana Garcia on 02-01-2023 Erythrocyte distribution width (RBC) [Entitic vol] 48.0 fL 35.1-43.9 [facility] Erythrocyte distribution width (RBC) [Ratio] 13.3 % 11.6-14.6 [facility] Immature granulocytes/100 WBC (Bld) 0.500 % 0.0-0.9 [facility] Comment on above: IG% - Immature Granu locytes (promyelocytes, myelocytes and metamyelocytes) > 1% indicates that a LEFT SHIFT is Present. MCH (RBC) [Entitic mass] 30.4 pg 27.0-32.0 [facility] Nucleated RBC/100 WBC (Bld) [Ratio] 0 % 0-5 [facility] MCHC Auto (RBC) [Mass/Vol]Or dered By: Jordana Garcia on 02-01-2023 MCHC (RBC) [Mass/Vol] 31.3 g/dL 32-36 [facility] No Panel InformationOrdered By: Jordana Garcia on 02-01-2023 Estimated GFR (MDRD) Amer 53 mL/min >60 [facility] Comment on above: GFR Calc Estimated GFR (MDRD) Non-Af Amer 44 mL/min >60 [facility] Comment on above: Non- GFR Calc Thyroid Stimulating Hormone (TSH) 3.04 uIU/mL 0.358-3.74 [facility] Platelets bldOrdered By: Holland Garcia on 02-01-2023 Platelets (Bld) [#/Vol] 207 10*3/uL 150-450 [facility] Serum or plasma calcium kendall urement (mass/volume)Ordered By: Jordana Garcia on 02-01-2023 Calcium [Mass/Vol] 8.9 mg/dL 8.5-10.1 [facility] Serum or plasma creatinine m easurement (mass/volume)Ordered By: Jordana Garcia on 02-01-2023 Creatinine [Mass/Vol] 1.27 mg/dL 0.55-1.02 [facility] Comment on above: The validity of the calculated GFR & GFRAA in patients over 70 years has not been determined. Clinical correlation is essential. Serum or plasma urea nitroge n measurement (mass/volume)Ordered By: Jordana Garcia on 02-01-2023 Urea nitrogen [Mass/Vol] 11 mg/dL 7-18 [facility] Thin prep Papanicolaou smear with manual screeningOrdered By: Jordana Garcia on 02-01-2023 Thin prep Papanicolaou smear with manual screening 8 5-15 [facility] No Panel Informationon 01-24 INR International Normalized Ratio 1.9 [facility] No Panel Informationon 01-14 INR International Normalized Ratio 2.1 [facility] No Panel Informationon 01-03 INR International Normalized Ratio 1.8 [facility] No Panel Informationon 12-31 INR International Normalized Ratio 3.5 [facility] Absolute lymphocyte countOrd ered By: Enrique Freeman on 12-30-2022 Lymphocytes Auto (Unsp spec) [#/Vol] 1.54 10*3/uL 0.83-4.51 [facility] Basophil percentageOrdered B y: Enrique Freeman on 12-30-2022 Basophil percentage 0 SEEN /hpf 0-5 [facility] Basophils/100 WBC (Bld) 0.5 % 0-1 [facility] Bilirubin [Mass/Vol] 1.00 mg/dL 0.20-1.00 [facility] Comment on above: For patients on eltr ombopag therapy, use of Dimension [place] TBIL is not recommended. Chloride [Moles/Vol] 105 mmol/L 98-107 [facility] Eosinophils/100 WBC (Bld) 1.1 % 0-5 [facility] Glucose [Mass/Vol] 150 mg/dL 74-106 [facility] Comment on above: Fasting Glucose resu lt greater than or equal to 126 mg/dL suggests DIABETES MELLITUS per A.D.A. criteria. Neutrophils (Bld) [#/Vol] 8.3 10*3/uL 2.0-7.7 [facility] Neutrophils/100 WBC (Bld) 77.1 % 47-70 [facility] Potassium [Moles/Vol] 3.4 mmol/L 3.5-5.1 [facility] Protein [Mass/Vol] 6.8 g/dL 6.4-8.2 [facility] Sodium [Moles/Vol] 137 mmol/L 136-145 [facility] WBC (Bld) [#/Vol] 10.8 10*3/uL 4.4-11.0 [facility] Bilirubin Test strip Ql (U)O rdered By: Enrique Freeman on 12-30-2022 Bilirubin Ql (U) Negative Negative [facility] Blood erythrocytes count (nu mber/volume)Ordered By: Enrique Freeman on 12-30-2022 RBC (Bld) [#/Vol] 4.80 10*6/uL 4.2-5.4 [facility] Blood hemoglobin measurement (mass/volume)Ordered By: Enrique Freeman on 12-30-2022 Hemoglobin (Bld) [Mass/Vol] 14.9 g/dL 12.0-15.0 [facility] Blood lymphocytes/100 leukoc ytesOrdered By: Enrique Freeman on 12-30-2022 Lymphocytes/100 WBC (Bld) 14.3 % 19-41 [facility] Blood monocytes/100 leukocyt esOrdered By: Enrique Freeman on 12-30-2022 Monocytes/100 WBC (Bld) 6.5 % 0-10 [facility] Blood platelet mean volumeOr dered By: Enrique Freeman on 12-30-2022 Platelet mean volume (Bld) [Entitic vol] 12.7 fL 6.2-12.0 [facility] Determination of erythrocyte mean corpuscular volume (MCV)Ordered By: Enrique Freeman on 12-30-2022 MCV (RBC) [Entitic vol] 93.5 fL 81-99 [facility] Hematocrit Auto (Bld) [Volum e fraction]Ordered By: Enrique Freeman on 12-30-2022 Hematocrit (Bld) [Volume fraction] 44.9 % 37-47 [facility] INR in Blood by Coagulation assayOrdered By: Enrique Freeman on 12-30-2022 INR Coag (Bld) [Relative time] 2.5 {INR} [facility] Ketones Test strip Ql (U)Ord ered By: Enrique Freeman on 12-30-2022 Ketones Ql (U) Negative Negative [facility] Laboratory - Chemistry and C hemistry - challengeOrdered By: Enrique Freeman on 12-30-2022 ALP [Catalytic activity/Vol] 105 U/L 45-117 [facility] ALT [Catalytic activity/Vol] 41 U/L 13-56 [facility] CO2 [Moles/Vol] 25.0 mmol/L 21.0-32.0 [facility] Globulin (S) [Mass/Vol] 3.6 g/dL 2.2-4.2 [facility] Urea nitrogen/Creatinine [Mass ratio] 9.7 mg/mg 10-20 [facility] Laboratory - CoagulationOrde red By: Enrique Freeman on 12-30-2022 aPTT Coag (Bld) [Time] 49.4 s 24.1-36.2 [facility] PT Coag (PPP) [Time] 26.9 s 11.7-14.9 [facility] Laboratory - Hematology and Cell countsOrdered By: Enrique Freeman on 12-30-2022 Erythrocyte distribution width (RBC) [Entitic vol] 45.9 fL 35.1-43.9 [facility] Erythrocyte distribution width (RBC) [Ratio] 13.2 % 11.6-14.6 [facility] Immature granulocytes/100 WBC (Bld) 0.500 % 0.0-0.9 [facility] Comment on above: IG% - Immature Granu locytes (promyelocytes, myelocytes and metamyelocytes) > 1% indicates that a LEFT SHIFT is Present. MCH (RBC) [Entitic mass] 31.0 pg 27.0-32.0 [facility] Nucleated RBC/100 WBC (Bld) [Ratio] 0 % 0-5 [facility] Lower GI hemoglobin IA Ql (S tl)Ordered By: Enrique Freeman on 12-30-2022 Stool Occult Blood (ALLA) Positive [facility] MCHC Auto (RBC) [Mass/Vol]Or dered By: Enrique Freeman on 12-30-2022 MCHC (RBC) [Mass/Vol] 33.2 g/dL 32-36 [facility] Comment on above: Delta: 31.5 on 12/28-1138 Mucus LM Ql (Urine sed)Order ed By: Enrique Freeman on 12-30-2022 Mucus Ql (Urine sed) 0 SEEN /hpf [facility] Nitrite Test strip Ql (U)Ord ered By: Enrique Freeman on 12-30-2022 Nitrite Ql (U) Negative Negative [facility] No Panel InformationOrdered By: Enrique Freeman on 12-30-2022 Estimated GFR (MDRD) Amer 42 mL/min >60 [facility] Comment on above: GFR Calc Estimated GFR (MDRD) Non-Af Amer 35 mL/min >60 [facility] Comment on above: Non- GFR Calc Platelets bldOrdered By: Heather Freeman on 12-30-2022 Platelets (Bld) [#/Vol] 204 10*3/uL 150-450 [facility] Protein Test strip Ql (U)Ord ered By: Enrique Freeman on 12-30-2022 Protein Ql (U) 30 mg/dl Negative [facility] Serum or plasma albumin kendall urement (mass/volume)Ordered By: Enrique Freeman on 12-30-2022 Albumin [Mass/Vol] 3.2 g/dL 3.2-5.0 [facility] Serum or plasma albumin/glob ulin mass ratioOrdered By: Enrique Freeman on 12-30-2022 Albumin/Globulin [Mass ratio] 0.9 {ratio} 0.9-2.4 [facility] Serum or plasma calcium kendall urement (mass/volume)Ordered By: Enrique Freeman on 12-30-2022 Calcium [Mass/Vol] 9.0 mg/dL 8.5-10.1 [facility] Serum or plasma creatinine m easurement (mass/volume)Ordered By: Enrique Freeman on 12-30-2022 Creatinine [Mass/Vol] 1.55 mg/dL 0.55-1.02 [facility] Comment on above: The validity of the calculated GFR & GFRAA in patients over 70 years has not been determined. Clinical correlation is essential. Serum or plasma urea nitroge n measurement (mass/volume)Ordered By: Enrique Freeman on 12-30-2022 Urea nitrogen [Mass/Vol] 15 mg/dL 7-18 [facility] Squamous epithelial cells de tection in urine sediment by light microscopyOrdered By: Enrique Freeman on 12-30-2022 Epithelial cells.squamous LM Ql (Urine sed) 0-5 SEEN /hpf 5-10 [facility] Thin prep Papanicolaou smear with manual screeningOrdered By: Enrique Freeman on 12-30-2022 Thin prep Papanicolaou smear with manual screening 35 U/L 15-37 [facility] Thin prep Papanicolaou smear with manual screening 7 5-15 [facility] Urine blood detectionOrdered By: Enrique Freeman on 12-30-2022 RBC Ql (U) 25 /ul Negative [facility] RBC Ql (U) 0-5 SEEN /hpf 0-5 [facility] Urine clarityOrdered By: Hetaher Freeman on 12-30-2022 Clarity (U) Clear Clear [facility] Urine color determinationOrd ered By: Enrique Freeman on 12-30-2022 Color (U) Yellow Yellow [facility] Urine glucose detectionOrder ed By: Enrique Freeman on 12-30-2022 Glucose Ql (U) Normal mg/dl Normal [facility] Urine leukocyte esterase det ection by dipstickOrdered By: Enrique Freeman on 12-30-2022 Leukocyte esterase Test strip Ql (U) Negative Negative [facility] Urine pHOrdered By: Enrique rose on 12-30-2022 pH (U) 6.5 [pH] 5.0 - 8.0 [facility] Urine sediment bacteria coun t by microscopy (number/high power field)Ordered By: Enrique Freeman on 12-30-2022 Bacteria LM.HPF (Urine sed) [#/Area] 0 /[HPF] None Seen [facility] Urine specific gravity measu rementOrdered By: Enrique Freeman on 12-30-2022 Specific gravity (U) [Rel density] 1.010 1.002-1.030 [facility] Urobilinogen Auto test strip Ql (U)Ordered By: Enrique Freeman on 12-30-2022 Urobilinogen Ql (U) Normal mg/dl Normal [facility] Absolute lymphocyte countOrd ered By: Erasmo Pierre on 12-28-2022 Lymphocytes Auto (Unsp spec) [#/Vol] 3.53 10*3/uL 0.83-4.51 [facility] Basophil percentageOrdered B y: Erasmo Pierre on 12-28-2022 Basophils/100 WBC (Bld) 0.7 % 0-1 [facility] Bilirubin [Mass/Vol] 0.40 mg/dL 0.20-1.00 [facility] Comment on above: For patients on eltr ombopag therapy, use of Dimension [place] TBIL is not recommended. Chloride [Moles/Vol] 104 mmol/L 98-107 [facility] Cholesterol [Mass/Vol] 201 mg/dL <200 [facility] Comment on above: <200 mg/dL Desirable 200-240 mg/dL Borderline >240 mg/dL High Risk Eosinophils/100 WBC (Bld) 3.2 % 0-5 [facility] Glucose [Mass/Vol] 111 mg/dL 74-106 [facility] Comment on above: Fasting Glucose resu lt from 100 to 125 mg/dL suggests IMPAIRED HOMEOSTASIS per A.D.A. criteria. Neutrophils (Bld) [#/Vol] 7.7 10*3/uL 2.0-7.7 [facility] Neutrophils/100 WBC (Bld) 59.9 % 47-70 [facility] Potassium [Moles/Vol] 3.2 mmol/L 3.5-5.1 [facility] Comment on above: Slight Hemolysis, Re sult may be falsely increased. Protein [Mass/Vol] 7.5 g/dL 6.4-8.2 [facility] Sodium [Moles/Vol] 137 mmol/L 136-145 [facility] Triglyceride [Mass/Vol] 240 mg/dL <199 [facility] Comment on above: The drugs N-Acetylcy steine and Metamizole may falsely depress this assay.Serum Triglycerides Reference Interval Normal <150 mg/dL Borderline high 150 - 199 mg/dL High 200 - 499 mg/dL Very High > or = 500 mg/dL WBC (Bld) [#/Vol] 12.9 10*3/uL 4.4-11.0 [facility] Blood erythrocytes count (nu mber/volume)Ordered By: Erasmo Pierre on 12-28-2022 RBC (Bld) [#/Vol] 5.02 10*6/uL 4.2-5.4 [facility] Blood hemoglobin measurement (mass/volume)Ordered By: Erasmo Pierre on 12-28-2022 Hemoglobin (Bld) [Mass/Vol] 15.5 g/dL 12.0-15.0 [facility] Blood lymphocytes/100 leukoc ytesOrdered By: Erasmo Pierre on 12-28-2022 Lymphocytes/100 WBC (Bld) 27.5 % 19-41 [facility] Blood monocytes/100 leukocyt esOrdered By: Erasmo Pierre on 12-28-2022 Monocytes/100 WBC (Bld) 8.4 % 0-10 [facility] Blood platelet mean volumeOr dered By: Erasmo Pierre on 12-28-2022 Platelet mean volume (Bld) [Entitic vol] 13.3 fL 6.2-12.0 [facility] Determination of erythrocyte mean corpuscular volume (MCV)Ordered By: Erasmo Pierre on 12-28-2022 MCV (RBC) [Entitic vol] 98.0 fL 81-99 [facility] Hematocrit Auto (Bld) [Volum e fraction]Ordered By: Erasmo Pierre on 12-28-2022 Hematocrit (Bld) [Volume fraction] 49.2 % 37-47 [facility] Laboratory - Chemistry and C hemistry - challengeOrdered By: Erasmo Pierre on 12-28-2022 ALP [Catalytic activity/Vol] 86 U/L 45-117 [facility] ALT [Catalytic activity/Vol] 49 U/L 13-56 [facility] CO2 [Moles/Vol] 22.0 mmol/L 21.0-32.0 [facility] Free T4 [Mass/Vol] 1.09 ng/dL 0.76-1.46 [facility] Globulin (S) [Mass/Vol] 4.0 g/dL 2.2-4.2 [facility] Magnesium [Mass/Vol] 2.3 mg/dL 1.6-2.6 [facility] Comment on above: Slight Hemolysis, Re sult may be falsely increased. Urea nitrogen/Creatinine [Mass ratio] 6.7 mg/mg 10-20 [facility] Laboratory - Hematology and Cell countsOrdered By: Erasmo Pierre on 12-28-2022 Erythrocyte distribution width (RBC) [Entitic vol] 48.2 fL 35.1-43.9 [facility] Erythrocyte distribution width (RBC) [Ratio] 13.3 % 11.6-14.6 [facility] Immature granulocytes/100 WBC (Bld) 0.300 % 0.0-0.9 [facility] Comment on above: IG% - Immature Granu locytes (promyelocytes, myelocytes and metamyelocytes) > 1% indicates that a LEFT SHIFT is Present. MCH (RBC) [Entitic mass] 30.9 pg 27.0-32.0 [facility] Nucleated RBC/100 WBC (Bld) [Ratio] 0 % 0-5 [facility] MCHC Auto (RBC) [Mass/Vol]Or dered By: Eramso Pierre on 12-28-2022 MCHC (RBC) [Mass/Vol] 31.5 g/dL 32-36 [facility] No Panel InformationOrdered By: Erasmo Pierre on 12-28-2022 Estimated GFR (MDRD) Amer 50 mL/min >60 [facility] Comment on above: GFR Calc Estimated GFR (MDRD) Non-Af Amer 41 mL/min >60 [facility] Comment on above: Non- GFR Calc Thyroglobulin Antibody < 1.0 IU/mL 0.0-0.9 [facility] Comment on above: Thyroglobulin Antibo dy measured by [employer] Thyroglobulin Level 6.6 ng/mL 1.5-38.5 [facility] Comment on above: According to the [facility] [employer],the reference interval for Thyroglobulin (TG) should berelated to euthyroid patients and not for patients whounderwent thyroidectomy. TG reference intervals for thesepatients depend on the residual mass of the thyroid tissueleft after surgery. Establishing a post-operative baselineis recommended. The assay limit of quantitation is 0.1ng/mLThyroglobulin measured by [employer] Thyroid Stimulating Hormone (TSH) 4.97 uIU/mL 0.358-3.74 [facility] Vitamin D 25-Hydroxy 43.2 ng/mL [facility] Comment on above: Vitamin D 25(OH) Sta tus Range Deficiency <20 ng/mL (50nmol/L) Insufficiency 20 - 30 ng/mL (50 - 75 nmol/L) Sufficiency 30 - 100 ng/mL (75 - 250 nmol/L) Toxicity >100 ng/mL (>250 nmol/L) Platelets bldOrdered By: Hira Pierre on 12-28-2022 Platelets (Bld) [#/Vol] 251 10*3/uL 150-450 [facility] Serum or plasma albumin kendall urement (mass/volume)Ordered By: Erasmo Pierre on 12-28-2022 Albumin [Mass/Vol] 3.5 g/dL 3.2-5.0 [facility] Serum or plasma albumin/glob ulin mass ratioOrdered By: Erasmo Pierre on 12-28-2022 Albumin/Globulin [Mass ratio] 0.9 {ratio} 0.9-2.4 [facility] Serum or plasma calcium kendall urement (mass/volume)Ordered By: Erasmo Pierre on 12-28-2022 Calcium [Mass/Vol] 8.8 mg/dL 8.5-10.1 [facility] Serum or plasma cholesterol in HDL measurement (mass/volume)Ordered By: Erasmo Pierre on 12-28-2022 Cholesterol in HDL [Mass/Vol] 41 mg/dL >40 [facility] Comment on above: The drugs N-Acetylcy steine and Metamizole may falsely depress this assay. Reference Range HDL <40 mg/dL Low HDL Cholesterol HDL >or= 60 mg/dL High HDL Cholesterol Serum or plasma cholesterol in VLDL measurement (mass/volume)Ordered By: Erasmo Pierre on 12-28-2022 Cholesterol in VLDL [Mass/Vol] 48 mg/dL 5-40 [facility] Serum or plasma creatinine m easurement (mass/volume)Ordered By: Erasmo Pierre on 12-28-2022 Creatinine [Mass/Vol] 1.35 mg/dL 0.55-1.02 [facility] Comment on above: The validity of the calculated GFR & GFRAA in patients over 70 years has not been determined. Clinical correlation is essential. Serum or plasma low density lipoprotein (LDL) cholesterol measurement (mass/volume)Ordered By: Erasmo Pierre on 12-28-2022 Cholesterol in LDL [Mass/Vol] 112 mg/dL 0-130 [facility] Serum or plasma thyroperoxid ase antibody assay (units/volume)Ordered By: Erasmo Pierre on 12-28-2022 TPO Ab Qn 13 [IU]/mL 0-34 [facility] Comment on above: Performed at: [facility] [place] [id number] Director: Kiran Nguyen PhD, Phone: [phone] Serum or plasma urea nitroge n measurement (mass/volume)Ordered By: Erasmo Pierre on 12-28-2022 Urea nitrogen [Mass/Vol] 9 mg/dL 7-18 [facility] Thin prep Papanicolaou smear with manual screeningOrdered By: Erasmo Pierre on 10-24-2023 Thin prep Papanicolaou smear with manual screening 42 U/L 15-37 [facility] Comment on above: Slight Hemolysis, Re sult may be falsely increased. Thin prep Papanicolaou smear with manual screening 11 5-15 [facility] Whole blood hemoglobin A1c/t otal hemoglobin ratio (mass fraction)Ordered By: Erasmo Pierre on 12-28-2022 HbA1c (Bld) [Mass fraction] 5.6 % 3.8-5.6 [facility] Comment on above: Normal < 5.7 % Predi abetic 5.7 - 6.4 % Diabetic >or= 6.5 % Please note range changes. No Panel Informationon 12-17 INR International Normalized Ratio 2.9 [facility] No Panel Informationon 12-03 INR International Normalized Ratio 2.3 [facility] Absolute lymphocyte countOrd ered By: Alanna Kim on 12-02-2022 Lymphocytes Auto (Unsp spec) [#/Vol] 1.87 10*3/uL 0.83-4.51 [facility] Basophil percentageOrdered B y: Alanna Kim on 12-02-2022 Basophils/100 WBC (Bld) 0.5 % 0-1 [facility] Chloride [Moles/Vol] 106 mmol/L 98-107 [facility] Eosinophils/100 WBC (Bld) 3.6 % 0-5 [facility] Glucose [Mass/Vol] 138 mg/dL 74-106 [facility] Comment on above: Fasting Glucose resu lt greater than or equal to 126 mg/dL suggests DIABETES MELLITUS per A.D.A. criteria. Neutrophils (Bld) [#/Vol] 4.9 10*3/uL 2.0-7.7 [facility] Neutrophils/100 WBC (Bld) 63.0 % 47-70 [facility] Potassium [Moles/Vol] 3.4 mmol/L 3.5-5.1 [facility] Sodium [Moles/Vol] 137 mmol/L 136-145 [facility] WBC (Bld) [#/Vol] 7.8 10*3/uL 4.4-11.0 [facility] Blood erythrocytes count (nu mber/volume)Ordered By: Alanna Kim on 12-02-2022 RBC (Bld) [#/Vol] 4.84 10*6/uL 4.2-5.4 [facility] Blood hemoglobin measurement (mass/volume)Ordered By: Alanna Kim on 12-02-2022 Hemoglobin (Bld) [Mass/Vol] 15.1 g/dL 12.0-15.0 [facility] Blood lymphocytes/100 leukoc ytesOrdered By: Alanna Kim on 12-02-2022 Lymphocytes/100 WBC (Bld) 24.1 % 19-41 [facility] Blood monocytes/100 leukocyt esOrdered By: Alanna Kim on 12-02-2022 Monocytes/100 WBC (Bld) 8.4 % 0-10 [facility] Blood platelet mean volumeOr dered By: Alanna Kim on 12-02-2022 Platelet mean volume (Bld) [Entitic vol] 12.6 fL 6.2-12.0 [facility] Determination of erythrocyte mean corpuscular volume (MCV)Ordered By: Alanna Kim on 12-02-2022 MCV (RBC) [Entitic vol] 96.5 fL 81-99 [facility] Hematocrit Auto (Bld) [Volum e fraction]Ordered By: Alanna Kim on 12-02-2022 Hematocrit (Bld) [Volume fraction] 46.7 % 37-47 [facility] INR in Blood by Coagulation assayOrdered By: Alanna Kim on 12-02-2022 INR Coag (Bld) [Relative time] 1.9 {INR} [facility] Laboratory - Chemistry and C hemistry - challengeOrdered By: Alanna Kim on 12-02-2022 CO2 [Moles/Vol] 28.0 mmol/L 21.0-32.0 [facility] Urea nitrogen/Creatinine [Mass ratio] 9.2 mg/mg 10-20 [facility] Laboratory - CoagulationOrde red By: Alanna Kim on 12-02-2022 PT Coag (PPP) [Time] 21.7 s 11.7-14.9 [facility] Laboratory - Hematology and Cell countsOrdered By: Alanna Kim on 12-02-2022 Erythrocyte distribution width (RBC) [Entitic vol] 47.7 fL 35.1-43.9 [facility] Erythrocyte distribution width (RBC) [Ratio] 13.4 % 11.6-14.6 [facility] Immature granulocytes/100 WBC (Bld) 0.400 % 0.0-0.9 [facility] Comment on above: IG% - Immature Granu locytes (promyelocytes, myelocytes and metamyelocytes) > 1% indicates that a LEFT SHIFT is Present. MCH (RBC) [Entitic mass] 31.2 pg 27.0-32.0 [facility] Nucleated RBC/100 WBC (Bld) [Ratio] 0 % 0-5 [facility] MCHC Auto (RBC) [Mass/Vol]Or dered By: Alanna Kim on 12-02-2022 MCHC (RBC) [Mass/Vol] 32.3 g/dL 32-36 [facility] No Panel InformationOrdered By: Alanna Kim on 12-02-2022 Estimated Creatinine Clearance Calc 36.90 ml/min [facility] Estimated GFR (MDRD) Amer 63 mL/min >60 [facility] Comment on above: GFR Calc Estimated GFR (MDRD) Non-Af Amer 52 mL/min >60 [facility] Comment on above: Non- GFR Calc Troponin I High Sensitivity 17 pg/mL 3.0-54.0 [facility] Comment on above: Please Note: [place] t Units and Gender Specific Reference Ranges. For more information see Policy Stat Procedure [place] High Sensitivity Troponin (TNIH) and attachments. Platelets bldOrdered By: Milka Kim on 12-02-2022 Platelets (Bld) [#/Vol] 190 10*3/uL 150-450 [facility] Serum or plasma calcium kendall urement (mass/volume)Ordered By: Alanna Kim on 12-02-2022 Calcium [Mass/Vol] 8.7 mg/dL 8.5-10.1 [facility] Serum or plasma creatinine m easurement (mass/volume)Ordered By: Alanna Kim on 12-02-2022 Creatinine [Mass/Vol] 1.09 mg/dL 0.55-1.02 [facility] Comment on above: The validity of the calculated GFR & GFRAA in patients over 70 years has not been determined. Clinical correlation is essential. Serum or plasma urea nitroge n measurement (mass/volume)Ordered By: Alanna Kim on 12-02-2022 Urea nitrogen [Mass/Vol] 10 mg/dL 7-18 [facility] Thin prep Papanicolaou smear with manual screeningOrdered By: Alanna Kim on 12-02-2022 Thin prep Papanicolaou smear with manual screening 3 5-15 [facility] No Panel Informationon 11-19 INR International Normalized Ratio 3.0 [facility] Absolute lymphocyte countOrd ered By: Erasmo Pierre on 10-26-2022 Lymphocytes Auto (Unsp spec) [#/Vol] 3.51 10*3/uL 0.83-4.51 [facility] Basophil percentageOrdered B y: Erasmo Pierre on 10-26-2022 Basophil percentage 2.3 mg/dL 2.5-4.9 [facility] Basophils/100 WBC (Bld) 0.5 % 0-1 [facility] Bilirubin [Mass/Vol] 0.40 mg/dL 0.20-1.00 [facility] Comment on above: For patients on eltr ombopag therapy, use of Dimension [place] TBIL is not recommended. Chloride [Moles/Vol] 102 mmol/L 98-107 [facility] Cholesterol [Mass/Vol] 203 mg/dL <200 [facility] Comment on above: <200 mg/dL Desirable 200-240 mg/dL Borderline >240 mg/dL High Risk Eosinophils/100 WBC (Bld) 3.1 % 0-5 [facility] Glucose [Mass/Vol] 109 mg/dL 74-106 [facility] Comment on above: Fasting Glucose resu lt from 100 to 125 mg/dL suggests IMPAIRED HOMEOSTASIS per A.D.A. criteria. Neutrophils (Bld) [#/Vol] 7.3 10*3/uL 2.0-7.7 [facility] Neutrophils/100 WBC (Bld) 59.0 % 47-70 [facility] Potassium [Moles/Vol] 3.4 mmol/L 3.5-5.1 [facility] Protein [Mass/Vol] 7.2 g/dL 6.4-8.2 [facility] Sodium [Moles/Vol] 135 mmol/L 136-145 [facility] Triglyceride [Mass/Vol] 231 mg/dL <199 [facility] Comment on above: The drugs N-Acetylcy steine and Metamizole may falsely depress this assay.Serum Triglycerides Reference Interval Normal <150 mg/dL Borderline high 150 - 199 mg/dL High 200 - 499 mg/dL Very High > or = 500 mg/dL WBC (Bld) [#/Vol] 12.4 10*3/uL 4.4-11.0 [facility] Blood erythrocytes count (nu mber/volume)Ordered By: Erasmo Pierre on 10-26-2022 RBC (Bld) [#/Vol] 4.90 10*6/uL 4.2-5.4 [facility] Blood hemoglobin measurement (mass/volume)Ordered By: Erasmo Pierre on 10-26-2022 Hemoglobin (Bld) [Mass/Vol] 15.2 g/dL 12.0-15.0 [facility] Blood lymphocytes/100 leukoc ytesOrdered By: Erasmo Pierre on 10-26-2022 Lymphocytes/100 WBC (Bld) 28.3 % 19-41 [facility] Blood monocytes/100 leukocyt esOrdered By: Erasmo Pierre on 10-26-2022 Monocytes/100 WBC (Bld) 8.6 % 0-10 [facility] Blood platelet mean volumeOr dered By: Erasmo Pierre on 10-26-2022 Platelet mean volume (Bld) [Entitic vol] 13.1 fL 6.2-12.0 [facility] Determination of erythrocyte mean corpuscular volume (MCV)Ordered By: Erasmo Pierre on 10-26-2022 MCV (RBC) [Entitic vol] 97.3 fL 81-99 [facility] Hematocrit Auto (Bld) [Volum e fraction]Ordered By: Erasmo Pierre on 10-26-2022 Hematocrit (Bld) [Volume fraction] 47.7 % 37-47 [facility] Laboratory - Chemistry and C hemistry - challengeOrdered By: Erasmo Pierre on 10-26-2022 ALP [Catalytic activity/Vol] 78 U/L 45-117 [facility] ALT [Catalytic activity/Vol] 43 U/L 13-56 [facility] CO2 [Moles/Vol] 26.0 mmol/L 21.0-32.0 [facility] Globulin (S) [Mass/Vol] 3.9 g/dL 2.2-4.2 [facility] Magnesium [Mass/Vol] 2.1 mg/dL 1.6-2.6 [facility] Urea nitrogen/Creatinine [Mass ratio] 9.0 mg/mg 10-20 [facility] Laboratory - Hematology and Cell countsOrdered By: Erasmo Pierre on 10-26-2022 Erythrocyte distribution width (RBC) [Entitic vol] 48.1 fL 35.1-43.9 [facility] Erythrocyte distribution width (RBC) [Ratio] 13.3 % 11.6-14.6 [facility] Immature granulocytes/100 WBC (Bld) 0.500 % 0.0-0.9 [facility] Comment on above: IG% - Immature Granu locytes (promyelocytes, myelocytes and metamyelocytes) > 1% indicates that a LEFT SHIFT is Present. MCH (RBC) [Entitic mass] 31.0 pg 27.0-32.0 [facility] Nucleated RBC/100 WBC (Bld) [Ratio] 0 % 0-5 [facility] MCHC Auto (RBC) [Mass/Vol]Or dered By: Erasmo Pierre on 10-26-2022 MCHC (RBC) [Mass/Vol] 31.9 g/dL 32-36 [facility] No Panel InformationOrdered By: Erasmo Pierre on 10-26-2022 Estimated GFR (MDRD) Amer 50 mL/min >60 [facility] Comment on above: GFR Calc Estimated GFR (MDRD) Non-Af Amer 41 mL/min >60 [facility] Comment on above: Non- GFR Calc Parathyroid Hormone (Intact) 257.0 pg/mL 18.4-80.1 [facility] Thyroid Stimulating Hormone (TSH) 2.37 uIU/mL 0.358-3.74 [facility] Platelets bldOrdered By: Hira Pierre on 10-26-2022 Platelets (Bld) [#/Vol] 226 10*3/uL 150-450 [facility] Serum or plasma albumin kendall urement (mass/volume)Ordered By: Erasmo Pierre on 10-26-2022 Albumin [Mass/Vol] 3.3 g/dL 3.2-5.0 [facility] Serum or plasma albumin/glob ulin mass ratioOrdered By: Erasmo Pierre on 10-26-2022 Albumin/Globulin [Mass ratio] 0.8 {ratio} 0.9-2.4 [facility] Serum or plasma calcium kendall urement (mass/volume)Ordered By: Erasmo Pierre on 10-26-2022 Calcium [Mass/Vol] 8.8 mg/dL 8.5-10.1 [facility] Serum or plasma cholesterol in HDL measurement (mass/volume)Ordered By: Erasmo Pierre on 10-26-2022 Cholesterol in HDL [Mass/Vol] 41 mg/dL >40 [facility] Comment on above: The drugs N-Acetylcy steine and Metamizole may falsely depress this assay. Reference Range HDL <40 mg/dL Low HDL Cholesterol HDL >or= 60 mg/dL High HDL Cholesterol Serum or plasma cholesterol in VLDL measurement (mass/volume)Ordered By: Erasmo Pierre on 10-26-2022 Cholesterol in VLDL [Mass/Vol] 46 mg/dL 5-40 [facility] Serum or plasma creatinine m easurement (mass/volume)Ordered By: Erasmo Pierre on 10-26-2022 Creatinine [Mass/Vol] 1.34 mg/dL 0.55-1.02 [facility] Comment on above: The validity of the calculated GFR & GFRAA in patients over 70 years has not been determined. Clinical correlation is essential. Serum or plasma low density lipoprotein (LDL) cholesterol measurement (mass/volume)Ordered By: Erasmo Pierre on 10-26-2022 Cholesterol in LDL [Mass/Vol] 116 mg/dL 0-130 [facility] Serum or plasma urea nitroge n measurement (mass/volume)Ordered By: Erasmo Pierre on 10-26-2022 Urea nitrogen [Mass/Vol] 12 mg/dL 7-18 [facility] Thin prep Papanicolaou smear with manual screeningOrdered By: Erasmo Pierre 10-26-2022 Thin prep Papanicolaou smear with manual screening 30 U/L 15-37 [facility] Thin prep Papanicolaou smear with manual screening 7 5-15 [facility] Whole blood hemoglobin A1c/t otal hemoglobin ratio (mass fraction)Ordered By: Erasmo Pierre on 10-26-2022 HbA1c (Bld) [Mass fraction] 5.6 % 3.8-5.6 [facility] Comment on above: Normal < 5.7 % Predi abetic 5.7 - 6.4 % Diabetic >or= 6.5 % Please note range changes. No Panel Informationon 10-15 INR International Normalized Ratio 2.7 [facility] No Panel Informationon 08-06 INR International Normalized Ratio 2.8 [facility] No Panel Informationon 07-23 INR International Normalized Ratio 2.0 [facility] No Panel Informationon 07-16 INR International Normalized Ratio 1.8 [facility] No Panel Informationon 07-09 INR International Normalized Ratio 1.9 [facility] No Panel Informationon 06-25 INR International Normalized Ratio 2.2 [facility] No Panel Informationon 06-11 INR International Normalized Ratio 2.0 [facility] Absolute lymphocyte countOrd ered By: Dr. Pierre on 06-09-2022 Lymphocytes Auto (Unsp spec) [#/Vol] 2.58 10*3/uL 0.83-4.51 [facility] Basophil percentageOrdered B y: Dr. Pierre on 06-09-2022 Basophils/100 WBC (Bld) 0.6 % 0-1 [facility] Bilirubin [Mass/Vol] 0.40 mg/dL 0.20-1.00 [facility] Comment on above: For patients on eltr ombopag therapy, use of Dimension [place] TBIL is not recommended. Chloride [Moles/Vol] 105 mmol/L 98-107 [facility] Cholesterol [Mass/Vol] 252 mg/dL <200 [facility] Comment on above: <200 mg/dL Desirable 200-240 mg/dL Borderline >240 mg/dL High Risk Eosinophils/100 WBC (Bld) 4.8 % 0-5 [facility] Glucose [Mass/Vol] 110 mg/dL 74-106 [facility] Comment on above: Fasting Glucose resu lt from 100 to 125 mg/dL suggests IMPAIRED HOMEOSTASIS per A.D.A. criteria. Neutrophils (Bld) [#/Vol] 5.0 10*3/uL 2.0-7.7 [facility] Neutrophils/100 WBC (Bld) 56.8 % 47-70 [facility] Potassium [Moles/Vol] 3.7 mmol/L 3.5-5.1 [facility] Protein [Mass/Vol] 7.1 g/dL 6.4-8.2 [facility] Sodium [Moles/Vol] 137 mmol/L 136-145 [facility] Triglyceride [Mass/Vol] 274 mg/dL <199 [facility] Comment on above: The drugs N-Acetylcy steine and Metamizole may falsely depress this assay.Serum Triglycerides Reference Interval Normal <150 mg/dL Borderline high 150 - 199 mg/dL High 200 - 499 mg/dL Very High > or = 500 mg/dL WBC (Bld) [#/Vol] 8.9 10*3/uL 4.4-11.0 [facility] Blood erythrocytes count (nu mber/volume)Ordered By: Dr. Pierre on 06-09-2022 RBC (Bld) [#/Vol] 5.01 10*6/uL 4.2-5.4 [facility] Blood hemoglobin measurement (mass/volume)Ordered By: Dr. Peirre on 06-09-2022 Hemoglobin (Bld) [Mass/Vol] 15.3 g/dL 12.0-15.0 [facility] Blood lymphocytes/100 leukoc ytesOrdered By: Dr. Pierre on 06-09-2022 Lymphocytes/100 WBC (Bld) 29.0 % 19-41 [facility] Blood monocytes/100 leukocyt esOrdered By: Dr. Pierre on 06-09-2022 Monocytes/100 WBC (Bld) 8.5 % 0-10 [facility] Blood platelet mean volumeOr dered By: Dr. Pierre on 06-09-2022 Platelet mean volume (Bld) [Entitic vol] 13.2 fL 6.2-12.0 [facility] Determination of erythrocyte mean corpuscular volume (MCV)Ordered By: Dr. Pierre on 04-05-2023 MCV (RBC) [Entitic vol] 94.8 fL 81-99 [facility] Hematocrit Auto (Bld) [Volum e fraction]Ordered By: Dr. Pierre on 06-09-2022 Hematocrit (Bld) [Volume fraction] 47.5 % 37-47 [facility] Laboratory - Chemistry and C hemistry - challengeOrdered By: Dr. Pierre on 06-09-2022 ALP [Catalytic activity/Vol] 81 U/L 45-117 [facility] ALT [Catalytic activity/Vol] 74 U/L 13-56 [facility] CO2 [Moles/Vol] 27.0 mmol/L 21.0-32.0 [facility] Globulin (S) [Mass/Vol] 3.7 g/dL 2.2-4.2 [facility] Magnesium [Mass/Vol] 2.4 mg/dL 1.6-2.6 [facility] Urea nitrogen/Creatinine [Mass ratio] 11.7 mg/mg 10-20 [facility] Laboratory - Hematology and Cell countsOrdered By: Dr. Pierre on 06-09-2022 Erythrocyte distribution width (RBC) [Entitic vol] 47.4 fL 35.1-43.9 [facility] Erythrocyte distribution width (RBC) [Ratio] 13.5 % 11.6-14.6 [facility] Immature granulocytes/100 WBC (Bld) 0.300 % 0.0-0.9 [facility] Comment on above: IG% - Immature Granu locytes (promyelocytes, myelocytes and metamyelocytes) > 1% indicates that a LEFT SHIFT is Present. MCH (RBC) [Entitic mass] 30.5 pg 27.0-32.0 [facility] Nucleated RBC/100 WBC (Bld) [Ratio] 0 % 0-5 [facility] MCHC Auto (RBC) [Mass/Vol]Or dered By: Dr. Pierre on 06-09-2022 MCHC (RBC) [Mass/Vol] 32.2 g/dL 32-36 [facility] No Panel InformationOrdered By: Dr. Pierre on 06-09-2022 Estimated GFR (MDRD) Amer 57 mL/min >60 [facility] Comment on above: GFR Calc Estimated GFR (MDRD) Non-Af Amer 47 mL/min >60 [facility] Comment on above: Non- GFR Calc Hepatitis B Surface Antigen Non-Reactive Nonreactive [facility] Hepatitis C Antibody Non-Reactive Nonreactive [facility] Comment on above: Non Reactive: < 0.8 Equivocal: >/= 0.8 to < 1.0 Reactive: >/= 1.0The CDC recommends that a reactive/equivocal HCV antibody result be followed up by the HCV Nucleic Acid Amplificationtest (077771) Thyroid Stimulating Hormone (TSH) 3.49 uIU/mL 0.358-3.74 [facility] Vitamin D 25-Hydroxy 51.7 ng/mL [facility] Comment on above: Vitamin D 25(OH) Sta tus Range Deficiency <20 ng/mL (50nmol/L) Insufficiency 20 - 30 ng/mL (50 - 75 nmol/L) Sufficiency 30 - 100 ng/mL (75 - 250 nmol/L) Toxicity >100 ng/mL (>250 nmol/L) Platelets bldOrdered By: Dr. Pierre on 06-09-2022 Platelets (Bld) [#/Vol] 212 10*3/uL 150-450 [facility] Serum hepatitis B virus surf melisa antibody IgG detectionOrdered By: Dr. Pierre on 06-09-2022 HBV surface IgG Ql (S) Non-Reactive [facility] Comment on above: Non Reactive: Incons istent with immunity less than <10 mIU/mL Reactive: Consistent with immunity greater than or equal to 10 mIU/mL Serum or plasma albumin kendall urement (mass/volume)Ordered By: Dr. Pierre on 06-09-2022 Albumin [Mass/Vol] 3.4 g/dL 3.2-5.0 [facility] Serum or plasma albumin/glob ulin mass ratioOrdered By: Dr. Pierre on 06-09-2022 Albumin/Globulin [Mass ratio] 0.9 {ratio} 0.9-2.4 [facility] Serum or plasma calcium kendall urement (mass/volume)Ordered By: Dr. Pierre on 06-09-2022 Calcium [Mass/Vol] 9.1 mg/dL 8.5-10.1 [facility] Serum or plasma cholesterol in HDL measurement (mass/volume)Ordered By: Dr. Pierre on 06-09-2022 Cholesterol in HDL [Mass/Vol] 41 mg/dL >40 [facility] Comment on above: The drugs N-Acetylcy steine and Metamizole may falsely depress this assay. Reference Range HDL <40 mg/dL Low HDL Cholesterol HDL >or= 60 mg/dL High HDL Cholesterol Serum or plasma cholesterol in VLDL measurement (mass/volume)Ordered By: Dr. Pierre on 06-09-2022 Cholesterol in VLDL [Mass/Vol] 55 mg/dL 5-40 [facility] Serum or plasma creatinine m easurement (mass/volume)Ordered By: Dr. Pierre on 06-09-2022 Creatinine [Mass/Vol] 1.20 mg/dL 0.55-1.02 [facility] Comment on above: The validity of the calculated GFR & GFRAA in patients over 70 years has not been determined. Clinical correlation is essential. Serum or plasma low density lipoprotein (LDL) cholesterol measurement (mass/volume)Ordered By: Dr. Pierre on 06-09-2022 Cholesterol in LDL [Mass/Vol] 156 mg/dL 0-130 [facility] Serum or plasma urea nitroge n measurement (mass/volume)Ordered By: Dr. Pierre on 06-09-2022 Urea nitrogen [Mass/Vol] 14 mg/dL 7-18 [facility] Thin prep Papanicolaou smear with manual screeningOrdered By: Dr. Pierre on 06-09-2022 Thin prep Papanicolaou smear with manual screening 59 U/L 15-37 [facility] Thin prep Papanicolaou smear with manual screening 5 5-15 [facility] Whole blood hemoglobin A1c/t otal hemoglobin ratio (mass fraction)Ordered By: Dr. Pierre on 06-09-2022 HbA1c (Bld) [Mass fraction] 5.9 % 3.8-5.6 [facility] Comment on above: Normal < 5.7 % Predi abetic 5.7 - 6.4 % Diabetic >or= 6.5 % Please note range changes. No Panel Informationon 05-21 INR International Normalized Ratio 2.9 [facility] No Panel Informationon 05-14 INR International Normalized Ratio 3.4 [facility] No Panel Informationon 05-07 INR International Normalized Ratio 3.1 [facility] No Panel Informationon 04-30 INR International Normalized Ratio 1.4 [facility] No Panel Informationon 04-16 INR International Normalized Ratio 1.7 [facility] No Panel Informationon 04-02 INR International Normalized Ratio 1.5 [facility] No Panel Informationon 03-19 INR International Normalized Ratio 2.1 [facility] Absolute lymphocyte countOrd ered By: Dr. Pierre on 03-09-2022 Lymphocytes Auto (Unsp spec) [#/Vol] 2.58 10*3/uL 0.83-4.51 [facility] Basophil percentageOrdered B y: Dr. Pierre on 03-09-2022 Basophils/100 WBC (Bld) 0.8 % 0-1 [facility] Bilirubin [Mass/Vol] 0.60 mg/dL 0.20-1.00 [facility] Comment on above: For patients on eltr ombopag therapy, use of Dimension [place] TBIL is not recommended. Chloride [Moles/Vol] 105 mmol/L 98-107 [facility] Cholesterol [Mass/Vol] 247 mg/dL <200 [facility] Comment on above: <200 mg/dL Desirable 200-240 mg/dL Borderline >240 mg/dL High Risk Eosinophils/100 WBC (Bld) 5.7 % 0-5 [facility] Glucose [Mass/Vol] 117 mg/dL 74-106 [facility] Comment on above: Fasting Glucose resu lt from 100 to 125 mg/dL suggests IMPAIRED HOMEOSTASIS per A.D.A. criteria. Neutrophils (Bld) [#/Vol] 4.6 10*3/uL 2.0-7.7 [facility] Neutrophils/100 WBC (Bld) 54.3 % 47-70 [facility] Potassium [Moles/Vol] 4.4 mmol/L 3.5-5.1 [facility] Protein [Mass/Vol] 7.0 g/dL 6.4-8.2 [facility] Sodium [Moles/Vol] 140 mmol/L 136-145 [facility] Triglyceride [Mass/Vol] 216 mg/dL <199 [facility] Comment on above: The drugs N-Acetylcy steine and Metamizole may falsely depress this assay.Serum Triglycerides Reference Interval Normal <150 mg/dL Borderline high 150 - 199 mg/dL High 200 - 499 mg/dL Very High > or = 500 mg/dL WBC (Bld) [#/Vol] 8.5 10*3/uL 4.4-11.0 [facility] Blood erythrocytes count (nu mber/volume)Ordered By: Dr. Pierre on 03-09-2022 RBC (Bld) [#/Vol] 4.90 10*6/uL 4.2-5.4 [facility] Blood hemoglobin measurement (mass/volume)Ordered By: Dr. Pierre on 03-09-2022 Hemoglobin (Bld) [Mass/Vol] 15.5 g/dL 12.0-15.0 [facility] Blood lymphocytes/100 leukoc ytesOrdered By: Dr. Pierre on 03-09-2022 Lymphocytes/100 WBC (Bld) 30.2 % 19-41 [facility] Blood monocytes/100 leukocyt esOrdered By: Dr. Pierre on 03-09-2022 Monocytes/100 WBC (Bld) 8.9 % 0-10 [facility] Blood platelet mean volumeOr dered By: Dr. Pierre on 03-09-2022 Platelet mean volume (Bld) [Entitic vol] 12.8 fL 6.2-12.0 [facility] Determination of erythrocyte mean corpuscular volume (MCV)Ordered By: Dr. Pierre on 03-09-2022 MCV (RBC) [Entitic vol] 96.7 fL 81-99 [facility] Hematocrit Auto (Bld) [Volum e fraction]Ordered By: Dr. Pierre on 03-09-2022 Hematocrit (Bld) [Volume fraction] 47.4 % 37-47 [facility] Laboratory - Chemistry and C hemistry - challengeOrdered By: Dr. Pierre on 03-09-2022 ALP [Catalytic activity/Vol] 74 U/L 45-117 [facility] ALT [Catalytic activity/Vol] 51 U/L 13-56 [facility] CO2 [Moles/Vol] 26.0 mmol/L 21.0-32.0 [facility] Globulin (S) [Mass/Vol] 3.5 g/dL 2.2-4.2 [facility] Magnesium [Mass/Vol] 2.2 mg/dL 1.6-2.6 [facility] Urea nitrogen/Creatinine [Mass ratio] 10.2 mg/mg 10-20 [facility] Laboratory - Hematology and Cell countsOrdered By: Dr. Pierre on 03-09-2022 Erythrocyte distribution width (RBC) [Entitic vol] 48.2 fL 35.1-43.9 [facility] Erythrocyte distribution width (RBC) [Ratio] 13.5 % 11.6-14.6 [facility] Immature granulocytes/100 WBC (Bld) 0.100 % 0.0-0.9 [facility] Comment on above: IG% - Immature Granu locytes (promyelocytes, myelocytes and metamyelocytes) > 1% indicates that a LEFT SHIFT is Present. MCH (RBC) [Entitic mass] 31.6 pg 27.0-32.0 [facility] Nucleated RBC/100 WBC (Bld) [Ratio] 0 % 0-5 [facility] MCHC Auto (RBC) [Mass/Vol]Or dered By: Dr. Pierre on 03-09-2022 MCHC (RBC) [Mass/Vol] 32.7 g/dL 32-36 [facility] No Panel InformationOrdered By: Dr. Pierre on 03-09-2022 Estimated GFR (MDRD) Amer 58 mL/min >60 [facility] Comment on above: GFR Calc Estimated GFR (MDRD) Non-Af Amer 48 mL/min >60 [facility] Comment on above: Non- GFR Calc Vitamin D 25-Hydroxy 57.5 ng/mL [facility] Comment on above: Vitamin D 25(OH) Sta tus Range Deficiency <20 ng/mL (50nmol/L) Insufficiency 20 - 30 ng/mL (50 - 75 nmol/L) Sufficiency 30 - 100 ng/mL (75 - 250 nmol/L) Toxicity >100 ng/mL (>250 nmol/L) Platelets bldOrdered By: Dr. Pierre on 03-09-2022 Platelets (Bld) [#/Vol] 222 10*3/uL 150-450 [facility] Serum or plasma albumin kendall urement (mass/volume)Ordered By: Dr. Pierre on 03-09-2022 Albumin [Mass/Vol] 3.5 g/dL 3.2-5.0 [facility] Serum or plasma albumin/glob ulin mass ratioOrdered By: Dr. Pierre on 03-09-2022 Albumin/Globulin [Mass ratio] 1.0 {ratio} 0.9-2.4 [facility] Serum or plasma calcium kendall urement (mass/volume)Ordered By: Dr. Pierre on 03-09-2022 Calcium [Mass/Vol] 9.3 mg/dL 8.5-10.1 [facility] Serum or plasma cholesterol in HDL measurement (mass/volume)Ordered By: Dr. Pierre on 03-09-2022 Cholesterol in HDL [Mass/Vol] 40 mg/dL >40 [facility] Comment on above: The drugs N-Acetylcy steine and Metamizole may falsely depress this assay. Reference Range HDL <40 mg/dL Low HDL Cholesterol HDL >or= 60 mg/dL High HDL Cholesterol Serum or plasma cholesterol in VLDL measurement (mass/volume)Ordered By: Dr. Pierre on 03-09-2022 Cholesterol in VLDL [Mass/Vol] 43 mg/dL 5-40 [facility] Serum or plasma creatinine m easurement (mass/volume)Ordered By: Dr. Pierre on 03-09-2022 Creatinine [Mass/Vol] 1.18 mg/dL 0.55-1.02 [facility] Comment on above: The validity of the calculated GFR & GFRAA in patients over 70 years has not been determined. Clinical correlation is essential. Serum or plasma low density lipoprotein (LDL) cholesterol measurement (mass/volume)Ordered By: Dr. Pierre on 03-09-2022 Cholesterol in LDL [Mass/Vol] 164 mg/dL 0-130 [facility] Serum or plasma urea nitroge n measurement (mass/volume)Ordered By: Dr. Pierre on 03-09-2022 Urea nitrogen [Mass/Vol] 12 mg/dL 7-18 [facility] Thin prep Papanicolaou smear with manual screeningOrdered By: Dr. Pierre on 03-09-2022 Thin prep Papanicolaou smear with manual screening 37 U/L 15-37 [facility] Thin prep Papanicolaou smear with manual screening 9 5-15 [facility] Whole blood hemoglobin A1c/t otal hemoglobin ratio (mass fraction)Ordered By: Dr. Pierre on 03-09-2022 HbA1c (Bld) [Mass fraction] 5.7 % 3.8-5.6 [facility] Comment on above: Normal < 5.7 % Predi abetic 5.7 - 6.4 % Diabetic >or= 6.5 % Please note range changes. No Panel Informationon 02-26 INR International Normalized Ratio 2.5 [facility] No Panel Informationon 02-12 INR International Normalized Ratio 2.0 [facility] No Panel Informationon 01-21 INR International Normalized Ratio 2.1 [facility] No Panel Informationon 01-15 INR International Normalized Ratio 3.1 [facility] Absolute lymphocyte countOrd ered By: Dr. Freeman on 01-14-2022 Lymphocytes Auto (Unsp spec) [#/Vol] 1.64 10*3/uL 0.83-4.51 [facility] Basophil percentageOrdered B y: Dr. Freeman on 01-14-2022 Basophils/100 WBC (Bld) 0.4 % 0-1 [facility] Bilirubin [Mass/Vol] 1.00 mg/dL 0.20-1.00 [facility] Comment on above: For patients on eltr ombopag therapy, use of Dimension [place] TBIL is not recommended. Chloride [Moles/Vol] 105 mmol/L 98-107 [facility] Eosinophils/100 WBC (Bld) 1.0 % 0-5 [facility] Glucose [Mass/Vol] 134 mg/dL 74-106 [facility] Comment on above: Fasting Glucose resu lt greater than or equal to 126 mg/dL suggests DIABETES MELLITUS per A.D.A. criteria. Lactate [Moles/Vol] 4.0 mmol/L 0.4-2.0 [facility] Comment on above: Critical Result(s) C alled at: 09:31:08 01/14/2022 by: [id number] Results read back by same. Neutrophils (Bld) [#/Vol] 9.9 10*3/uL 2.0-7.7 [facility] Neutrophils/100 WBC (Bld) 78.3 % 47-70 [facility] Potassium [Moles/Vol] 3.7 mmol/L 3.5-5.1 [facility] Protein [Mass/Vol] 7.2 g/dL 6.4-8.2 [facility] Sodium [Moles/Vol] 140 mmol/L 136-145 [facility] WBC (Bld) [#/Vol] 12.7 10*3/uL 4.4-11.0 [facility] Basophil percentage 0 SEEN /hpf 0-5 [facility] Bilirubin Test strip Ql (U)O rdered By: Dr. Freeman on 01-14-2022 Bilirubin Ql (U) Negative Negative [facility] Blood erythrocytes count (nu mber/volume)Ordered By: Dr. Freeman on 01-14-2022 RBC (Bld) [#/Vol] 5.22 10*6/uL 4.2-5.4 [facility] Blood hemoglobin measurement (mass/volume)Ordered By: Dr. Freeman on 01-14-2022 Hemoglobin (Bld) [Mass/Vol] 15.8 g/dL 12.0-15.0 [facility] Blood lymphocytes/100 leukoc ytesOrdered By: Dr. Freeman on 01-14-2022 Lymphocytes/100 WBC (Bld) 12.9 % 19-41 [facility] Blood monocytes/100 leukocyt esOrdered By: Dr. Freeman on 01-14-2022 Monocytes/100 WBC (Bld) 6.9 % 0-10 [facility] Blood platelet mean volumeOr dered By: Dr. Freeman on 01-14-2022 Platelet mean volume (Bld) [Entitic vol] 12.8 fL 6.2-12.0 [facility] Determination of erythrocyte mean corpuscular volume (MCV)Ordered By: Dr. Freeman on 01-14-2022 MCV (RBC) [Entitic vol] 94.4 fL 81-99 [facility] Hematocrit Auto (Bld) [Volum e fraction]Ordered By: Dr. Freeman on 11-10-2022 Hematocrit (Bld) [Volume fraction] 49.3 % 37-47 [facility] INR in Blood by Coagulation assayOrdered By: Dr. Freeman on 01-14-2022 INR Coag (Bld) [Relative time] 2.4 {INR} [facility] Ketones Test strip Ql (U)Ord ered By: Dr. Freeman on 01-14-2022 Ketones Ql (U) Negative Negative [facility] Laboratory - Chemistry and C hemistry - challengeOrdered By: Dr. Freeman on 01-14-2022 ALP [Catalytic activity/Vol] 116 U/L 45-117 [facility] ALT [Catalytic activity/Vol] 39 U/L 13-56 [facility] CO2 [Moles/Vol] 26.0 mmol/L 21.0-32.0 [facility] Globulin (S) [Mass/Vol] 3.8 g/dL 2.2-4.2 [facility] Urea nitrogen/Creatinine [Mass ratio] 7.9 mg/mg 10-20 [facility] Laboratory - CoagulationOrde red By: Dr. Freeman on 01-14-2022 aPTT Coag (Bld) [Time] 48.6 s 24.1-36.2 [facility] PT Coag (PPP) [Time] 25.5 s 11.7-14.9 [facility] Laboratory - Hematology and Cell countsOrdered By: Dr. Freeman on 01-14-2022 Erythrocyte distribution width (RBC) [Entitic vol] 47.0 fL 35.1-43.9 [facility] Erythrocyte distribution width (RBC) [Ratio] 13.5 % 11.6-14.6 [facility] Immature granulocytes/100 WBC (Bld) 0.500 % 0.0-0.9 [facility] Comment on above: IG% - Immature Granu locytes (promyelocytes, myelocytes and metamyelocytes) > 1% indicates that a LEFT SHIFT is Present. MCH (RBC) [Entitic mass] 30.3 pg 27.0-32.0 [facility] Nucleated RBC/100 WBC (Bld) [Ratio] 0 % 0-5 [facility] Lower GI hemoglobin IA Ql (S tl)Ordered By: Dr. Freeman on 01-14-2022 Stool Occult Blood (ALLA) [facility] ([facility]) [Mass/Vol]Or dered By: Dr. Freeman on 01-14-2022 MCHC (RBC) [Mass/Vol] 32.0 g/dL 32-36 [facility] Mucus LM Ql (Urine sed)Order ed By: Dr. Freeman on 01-14-2022 Mucus Ql (Urine sed) 0 SEEN /hpf [facility] Nitrite Test strip Ql (U)Ord ered By: Dr. Freeman on 01-14-2022 Nitrite Ql (U) Negative Negative [facility] No Panel InformationOrdered By: Dr. Freeman on 01-14-2022 Estimated Creatinine Clearance Calc 29.15 ml/min [facility] Estimated GFR (MDRD) Amer 48 mL/min >60 [facility] Comment on above: GFR Calc Estimated GFR (MDRD) Non-Af Amer 39 mL/min >60 [facility] Comment on above: Non- GFR Calc Platelets bldOrdered By: Dr. Freeman on 01-14-2022 Platelets (Bld) [#/Vol] 225 10*3/uL 150-450 [facility] Protein Test strip Ql (U)Ord ered By: Dr. Freeman on 01-14-2022 Protein Ql (U) 15 mg/dl Negative [facility] Serum or plasma albumin kendall urement (mass/volume)Ordered By: Dr. Freeman on 01-14-2022 Albumin [Mass/Vol] 3.4 g/dL 3.2-5.0 [facility] Serum or plasma albumin/glob ulin mass ratioOrdered By: Dr. Freeman on 01-14-2022 Albumin/Globulin [Mass ratio] 0.9 {ratio} 0.9-2.4 [facility] Serum or plasma calcium kendall urement (mass/volume)Ordered By: Dr. Freeman on 01-14-2022 Calcium [Mass/Vol] 9.0 mg/dL 8.5-10.1 [facility] Serum or plasma creatinine m easurement (mass/volume)Ordered By: Dr. Freeman on 01-14-2022 Creatinine [Mass/Vol] 1.40 mg/dL 0.55-1.02 [facility] Comment on above: The validity of the calculated GFR & GFRAA in patients over 70 years has not been determined. Clinical correlation is essential. Serum or plasma urea nitroge n measurement (mass/volume)Ordered By: Dr. Freeman on 01-14-2022 Urea nitrogen [Mass/Vol] 11 mg/dL 7-18 [facility] Squamous epithelial cells de tection in urine sediment by light microscopyOrdered By: Dr. Freeman on 01-14-2022 Epithelial cells.squamous LM Ql (Urine sed) 0-5 SEEN /hpf 5-10 [facility] Thin prep Papanicolaou smear with manual screeningOrdered By: Dr. Freeman on 01-14-2022 Thin prep Papanicolaou smear with manual screening 31 U/L 15-37 [facility] Thin prep Papanicolaou smear with manual screening 9 5-15 [facility] Urine blood detectionOrdered By: Dr. Freeman on 01-14-2022 RBC Ql (U) 10 /ul Negative [facility] RBC Ql (U) 0 SEEN /hpf 0-5 [facility] Urine clarityOrdered By: Dr. Freeman on 01-14-2022 Clarity (U) Clear Clear [facility] Urine color determinationOrd ered By: Dr. Freeman on 01-14-2022 Color (U) Yellow Yellow [facility] Urine glucose detectionOrder ed By: Dr. Freeman on 01-14-2022 Glucose Ql (U) Normal mg/dl Normal [facility] Urine leukocyte esterase det ection by dipstickOrdered By: Dr. Freeman on 01-14-2022 Leukocyte esterase Test strip Ql (U) 25 /ul Negative [facility] Urine pHOrdered By: Dr. Isabelle bradley on 01-14-2022 pH (U) 6.0 [pH] 5.0 - 8.0 [facility] Urine sediment bacteria coun t by microscopy (number/high power field)Ordered By: Dr. Freeman on 01-14-2022 Bacteria LM.HPF (Urine sed) [#/Area] 0 /[HPF] None Seen [facility] Urine specific gravity measu rementOrdered By: Dr. Freeman on 01-14-2022 Specific gravity (U) [Rel density] 1.015 1.002-1.030 [facility] Urobilinogen Auto test strip Ql (U)Ordered By: Dr. Freeman on 01-14-2022 Urobilinogen Ql (U) Normal mg/dl Normal [facility] No Panel Informationon 01-01 INR International Normalized Ratio 2.7 [facility] No Panel Informationon 12-25 INR International Normalized Ratio 2.1 [facility] No Panel Informationon 12-18 INR International Normalized Ratio 4.0 [facility] No Panel Informationon 12-04 INR International Normalized Ratio 2.3 [facility] No Panel Informationon 12-02 INR International Normalized Ratio 2.0 [facility] No Panel Informationon 11-27 INR International Normalized Ratio 1.5 [facility] No Panel Informationon 11-23 INR International Normalized Ratio 1.5 [facility] Work Phone: Laboratory - Microbiology an d Antimicrobial susceptibilityon 11-20-2021 SARS-CoV-2 (COVID-19) RNA NUNO+probe Ql (Unsp spec) Detected [facility] Work Phone: No Panel Informationon 11-20 Influenza Types A,B Rapid (Clinic) Not detected [facility] Work Phone: INR International Normalized Ratio 5.0 [facility] Work Phone: Absolute lymphocyte counton 11-06-2021 Lymphocytes Auto (Unsp spec) [#/Vol] 2.85 10*3/uL 0.83-4.51 [facility] Work Phone: Basophil percentageon 2021 Basophils/100 WBC (Bld) 0.5 % 0-1 [facility] Work Phone: Bilirubin [Mass/Vol] 0.30 mg/dL 0.20-1.00 [facility] Work Phone: Comment on above: For patients on eltr ombopag therapy, use of Dimension [place] TBIL is not recommended. Chloride [Moles/Vol] 104 mmol/L 98-107 [facility] Work Phone: Cholesterol [Mass/Vol] 196 mg/dL <200 [facility] Work Phone: Comment on above: <200 mg/dL Desirable 200-240 mg/dL Borderline >240 mg/dL High Risk Eosinophils/100 WBC (Bld) 4.0 % 0-5 [facility] Work Phone: Glucose [Mass/Vol] 126 mg/dL 74-106 [facility] Work Phone: Comment on above: Fasting Glucose resu lt greater than or equal to 126 mg/dL suggests DIABETES MELLITUS per A.D.A. criteria. Neutrophils (Bld) [#/Vol] 5.7 10*3/uL 2.0-7.7 [facility] Work Phone: Neutrophils/100 WBC (Bld) 58.2 % 47-70 [facility] Work Phone: Potassium [Moles/Vol] 3.7 mmol/L 3.5-5.1 [facility] Work Phone: Protein [Mass/Vol] 7.0 g/dL 6.4-8.2 [facility] Work Phone: Sodium [Moles/Vol] 136 mmol/L 136-145 [facility] Work Phone: Triglyceride [Mass/Vol] 245 mg/dL <199 [facility] Work Phone: Comment on above: The drugs N-Acetylcy steine and Metamizole may falsely depress this assay.Serum Triglycerides Reference Interval Normal <150 mg/dL Borderline high 150 - 199 mg/dL High 200 - 499 mg/dL Very High > or = 500 mg/dL WBC (Bld) [#/Vol] 9.8 10*3/uL 4.4-11.0 [facility] Work Phone: Blood erythrocytes count (nu mber/volume)on 11-06-2021 RBC (Bld) [#/Vol] 4.86 10*6/uL 4.2-5.4 [facility] Work Phone: Blood hemoglobin measurement (mass/volume)on 09-02-2022 Hemoglobin (Bld) [Mass/Vol] 14.7 g/dL 12.0-15.0 [facility] Work Phone: Blood lymphocytes/100 leukoc yteson 11-06-2021 Lymphocytes/100 WBC (Bld) 29.1 % 19-41 [facility] Work Phone: Blood monocytes/100 leukocyt eson 11-06-2021 Monocytes/100 WBC (Bld) 7.8 % 0-10 [facility] Work Phone: Blood platelet mean volumeon 11-06-2021 Platelet mean volume (Bld) [Entitic vol] 12.8 fL 6.2-12.0 [facility] Work Phone: Determination of erythrocyte mean corpuscular volume (MCV)on 11-06-2021 MCV (RBC) [Entitic vol] 94.7 fL 81-99 [facility] Work Phone: Hematocrit Auto (Bld) [Volum e fraction]on 11-06-2021 Hematocrit (Bld) [Volume fraction] 46.0 % 37-47 [facility] Work Phone: Laboratory - Chemistry and C hemistry - challengeon 11-06-2021 ALP [Catalytic activity/Vol] 74 U/L 45-117 [facility] Work Phone: ALT [Catalytic activity/Vol] 39 U/L 13-56 [facility] Work Phone: CO2 [Moles/Vol] 24.0 mmol/L 21.0-32.0 [facility] Work Phone: Free T4 [Mass/Vol] 1.12 ng/dL 0.76-1.46 [facility] Work Phone: Globulin (S) [Mass/Vol] 3.7 g/dL 2.2-4.2 [facility] Work Phone: Magnesium [Mass/Vol] 1.9 mg/dL 1.6-2.6 [facility] Work Phone: Urea nitrogen/Creatinine [Mass ratio] 10.8 mg/mg 10-20 [facility] Work Phone: Laboratory - Hematology and Cell countson 11-06-2021 Erythrocyte distribution width (RBC) [Entitic vol] 47.1 fL 35.1-43.9 [facility] Work Phone: Erythrocyte distribution width (RBC) [Ratio] 13.4 % 11.6-14.6 [facility] Work Phone: Immature granulocytes/100 WBC (Bld) 0.400 % 0.0-0.9 [facility] Work Phone: Comment on above: IG% - Immature Granu locytes (promyelocytes, myelocytes and metamyelocytes) > 1% indicates that a LEFT SHIFT is Present. MCH (RBC) [Entitic mass] 30.2 pg 27.0-32.0 [facility] Work Phone: Nucleated RBC/100 WBC (Bld) [Ratio] 0 % 0-5 [facility] Work Phone: MCHC Auto (RBC) [Mass/Vol]on 11-06-2021 MCHC (RBC) [Mass/Vol] 32.0 g/dL 32-36 [facility] Work Phone: No Panel Informationon 11-06 Estimated GFR (MDRD) Amer 62 mL/min >60 [facility] Work Phone: Comment on above: GFR Calc Estimated GFR (MDRD) Non-Af Amer 51 mL/min >60 [facility] Work Phone: Comment on above: Non- GFR Calc Thyroid Stimulating Hormone (TSH) 3.96 uIU/mL 0.358-3.74 [facility] Work Phone: Vitamin D 25-Hydroxy 49.7 ng/mL [facility] Work Phone: Comment on above: Vitamin D 25(OH) Sta tus Range Deficiency <20 ng/mL (50nmol/L) Insufficiency 20 - 30 ng/mL (50 - 75 nmol/L) Sufficiency 30 - 100 ng/mL (75 - 250 nmol/L) Toxicity >100 ng/mL (>250 nmol/L) INR International Normalized Ratio 2.6 [facility] Work Phone: Platelets bldon 11-06-2021 Platelets (Bld) [#/Vol] 213 10*3/uL 150-450 [facility] Work Phone: Serum or plasma albumin kendall urement (mass/volume)on 11-06-2021 Albumin [Mass/Vol] 3.3 g/dL 3.2-5.0 [facility] Work Phone: Serum or plasma albumin/glob ulin mass ratioon 11-06-2021 Albumin/Globulin [Mass ratio] 0.9 {ratio} 0.9-2.4 [facility] Work Phone: Serum or plasma calcium kendall urement (mass/volume)on 11-06-2021 Calcium [Mass/Vol] 8.5 mg/dL 8.5-10.1 [facility] Work Phone: Serum or plasma cholesterol in HDL measurement (mass/volume)on 11-06-2021 Cholesterol in HDL [Mass/Vol] 38 mg/dL >40 [facility] Work Phone: Comment on above: The drugs N-Acetylcy steine and Metamizole may falsely depress this assay. Reference Range HDL <40 mg/dL Low HDL Cholesterol HDL >or= 60 mg/dL High HDL Cholesterol Serum or plasma cholesterol in VLDL measurement (mass/volume)on 11-06-2021 Cholesterol in VLDL [Mass/Vol] 49 mg/dL 5-40 [facility] Work Phone: Serum or plasma creatinine m easurement (mass/volume)on 11-06-2021 Creatinine [Mass/Vol] 1.11 mg/dL 0.55-1.02 [facility] Work Phone: Comment on above: The validity of the calculated GFR & GFRAA in patients over 70 years has not been determined. Clinical correlation is essential. Serum or plasma low density lipoprotein (LDL) cholesterol measurement (mass/volume)on 11-06-2021 Cholesterol in LDL [Mass/Vol] 109 mg/dL 0-130 [facility] Work Phone: Serum or plasma urea nitroge n measurement (mass/volume)on 11-06-2021 Urea nitrogen [Mass/Vol] 12 mg/dL 7-18 [facility] Work Phone: Thin prep Papanicolaou smear with manual screeningon 11-06-2021 Thin prep Papanicolaou smear with manual screening 25 U/L 15-37 [facility] Work Phone: Thin prep Papanicolaou smear with manual screening 8 5-15 [facility] Work Phone: Whole blood hemoglobin A1c/t otal hemoglobin ratio (mass fraction)on 11-06-2021 HbA1c (Bld) [Mass fraction] 5.8 % 3.8-5.6 [facility] Work Phone: Comment on above: Normal < 5.7 % Predi abetic 5.7 - 6.4 % Diabetic >or= 6.5 % Please note range changes. No Panel Informationon 10-28 INR International Normalized Ratio 1.7 [facility] Work Phone: No Panel Informationon 10-26 INR International Normalized Ratio 4.0 [facility] Work Phone: No Panel Informationon 10-23 INR International Normalized Ratio 4.0 [facility] Work Phone: No Panel Informationon 10-09 INR International Normalized Ratio 2.7 [facility] Work Phone: No Panel Informationon 09-25 INR International Normalized Ratio 2.9 [facility] Work Phone: No Panel Informationon 09-11 INR International Normalized Ratio 2.6 [facility] Work Phone: No Panel Informationon 08-28 INR International Normalized Ratio 2.6 [facility] Work Phone: No Panel Informationon 08-14 INR International Normalized Ratio 2.8 [facility] Work Phone: Absolute lymphocyte counton 05-07-2021 Lymphocytes Auto (Unsp spec) [#/Vol] 1.54 10*3/uL 0.83-4.51 [facility] Work Phone: Basophil percentageon 2021 Basophil percentage 0 SEEN /hpf 0-5 [facility] Work Phone: Basophils/100 WBC (Bld) 0.3 % 0-1 [facility] Work Phone: Chloride [Moles/Vol] 106 mmol/L 98-107 [facility] Work Phone: Eosinophils/100 WBC (Bld) 2.1 % 0-5 [facility] Work Phone: Glucose [Mass/Vol] 121 mg/dL 74-106 [facility] Work Phone: [phone] Comment on above: Fasting Glucose resu lt from 100 to 125 mg/dL suggests IMPAIRED HOMEOSTASIS per A.D.A. criteria. Neutrophils (Bld) [#/Vol] 6.7 10*3/uL 2.0-7.7 [facility] Work Phone: Neutrophils/100 WBC (Bld) 72.5 % 47-70 [facility] Work Phone: Potassium [Moles/Vol] 3.8 mmol/L 3.5-5.1 [facility] Work Phone: Sodium [Moles/Vol] 137 mmol/L 136-145 [facility] Work Phone: WBC (Bld) [#/Vol] 9.2 10*3/uL 4.4-11.0 [facility] Work Phone: Bilirubin Test strip Ql (U)o n 05-07-2021 Bilirubin Ql (U) Negative Negative [facility] Work Phone: [phone] Blood erythrocytes count (nu mber/volume)on 05-07-2021 RBC (Bld) [#/Vol] 4.90 10*6/uL 4.2-5.4 [facility] Work Phone: Blood hemoglobin measurement (mass/volume)on 05-07-2021 Hemoglobin (Bld) [Mass/Vol] 15.2 g/dL 12.0-15.0 [facility] Work Phone: Blood lymphocytes/100 leukoc yteson 05-07-2021 Lymphocytes/100 WBC (Bld) 16.7 % 19-41 [facility] Work Phone: Blood monocytes/100 leukocyt eson 05-07-2021 Monocytes/100 WBC (Bld) 7.9 % 0-10 [facility] Work Phone: Blood platelet mean volumeon 05-07-2021 Platelet mean volume (Bld) [Entitic vol] 12.5 fL 6.2-12.0 [facility] Work Phone: Determination of erythrocyte mean corpuscular volume (MCV)on 05-07-2021 MCV (RBC) [Entitic vol] 93.5 fL 81-99 [facility] Work Phone: Hematocrit Auto (Bld) [Volum e fraction]on 05-07-2021 Hematocrit (Bld) [Volume fraction] 45.8 % 37-47 [facility] Work Phone: INR in Blood by Coagulation assayon 05-07-2021 INR Coag (Bld) [Relative time] 2.7 {INR} [facility] Work Phone: Ketones Test strip Ql (U)on 05-07-2021 Ketones Ql (U) Negative Negative [facility] Work Phone: Laboratory - Chemistry and C hemistry - challengeon 05-07-2021 CO2 [Moles/Vol] 28.0 mmol/L 21.0-32.0 [facility] Work Phone: Urea nitrogen/Creatinine [Mass ratio] 11.7 mg/mg 10-20 [facility] Work Phone: Laboratory - Coagulationon 0 05-07-2021 PT Coag (PPP) [Time] 28.2 s 11.7-14.9 [facility] Work Phone: Laboratory - Hematology and Cell countson 05-07-2021 Erythrocyte distribution width (RBC) [Entitic vol] 45.3 fL 35.1-43.9 [facility] Work Phone: Erythrocyte distribution width (RBC) [Ratio] 13.3 % 11.6-14.6 [facility] Work Phone: Immature granulocytes/100 WBC (Bld) 0.500 % 0.0-0.9 [facility] Work Phone: Comment on above: IG% - Immature Granu locytes (promyelocytes, myelocytes and metamyelocytes) > 1% indicates that a LEFT SHIFT is Present. MCH (RBC) [Entitic mass] 31.0 pg 27.0-32.0 [facility] Work Phone: Nucleated RBC/100 WBC (Bld) [Ratio] 0 % 0-5 [facility] Work Phone: MCHC Auto (RBC) [Mass/Vol]on 05-07-2021 MCHC (RBC) [Mass/Vol] 33.2 g/dL 32-36 [facility] Work Phone: Mucus LM Ql (Urine sed)on Mucus Ql (Urine sed) 0 SEEN /hpf [facility] Work Phone: Nitrite Test strip Ql (U)on 05-07-2021 Nitrite Ql (U) Negative Negative [facility] Work Phone: No Panel Informationon 05-07 Troponin I High Sensitivity 387 pg/mL 3.0-54.0 [facility] Work Phone: Comment on above: Critical Result(s) C alled at: 14:31:41 05/07/2021 by: Genoveva Fernandez. Results read back by same. Please Note: New Test Units and Gender Specific Reference Ranges. For more information see Policy Stat Procedure [place] High Sensitivity Troponin (TNIH) and attachments. Estimated Creatinine Clearance Calc 40.14 ml/min [facility] Work Phone: Estimated GFR (MDRD) Amer 62 mL/min >60 [facility] Work Phone: Comment on above: GFR Calc Estimated GFR (MDRD) Non-Af Amer 52 mL/min >60 [facility] Work Phone: Comment on above: Non- GFR Calc Platelets bldon 05-07-2021 Platelets (Bld) [#/Vol] 208 10*3/uL 150-450 [facility] Work Phone: Protein Test strip Ql (U)on 05-07-2021 Protein Ql (U) Negative Negative [facility] Work Phone: Serum or plasma calcium kendall urement (mass/volume)on 05-07-2021 Calcium [Mass/Vol] 9.5 mg/dL 8.5-10.1 [facility] Work Phone: Serum or plasma creatinine m easurement (mass/volume)on 05-07-2021 Creatinine [Mass/Vol] 1.11 mg/dL 0.55-1.02 [facility] Work Phone: Comment on above: The validity of the calculated GFR & GFRAA in patients over 70 years has not been determined. Clinical correlation is essential. Serum or plasma urea nitroge n measurement (mass/volume)on 05-07-2021 Urea nitrogen [Mass/Vol] 13 mg/dL 7-18 [facility] Work Phone: Squamous epithelial cells de tection in urine sediment by light microscopyon 05-07-2021 Epithelial cells.squamous LM Ql (Urine sed) 0-5 SEEN /hpf 5-10 [facility] Work Phone: Thin prep Papanicolaou smear with manual screeningon 05-07-2021 Thin prep Papanicolaou smear with manual screening 3 5-15 [facility] Work Phone: Urine blood detectionon RBC Ql (U) 25 /ul Negative [facility] Work Phone: RBC Ql (U) 0-5 SEEN /hpf 0-5 [facility] Work Phone: Urine clarityon 05-07-2021 Clarity (U) Clear Clear [facility] Work Phone: Urine color determinationon 05-07-2021 Color (U) Yellow Yellow [facility] Work Phone: Urine glucose detectionon Glucose Ql (U) Normal mg/dl Normal [facility] Work Phone: Urine leukocyte esterase det ection by dipstickon 05-07-2021 Leukocyte esterase Test strip Ql (U) Negative Negative [facility] Work Phone: Urine pHon 05-07-2021 pH (U) 6.0 [pH] 5.0 - 8.0 [facility] Work Phone: Urine sediment bacteria coun t by microscopy (number/high power field)on 05-07-2021 Bacteria LM.HPF (Urine sed) [#/Area] 0 /[HPF] None Seen [facility] Work Phone: Urine specific gravity measu rementon 05-07-2021 Specific gravity (U) [Rel density] 1.015 1.002-1.030 [facility] Work Phone: Urobilinogen Auto test strip Ql (U)on 05-07-2021 Urobilinogen Ql (U) Normal mg/dl Normal [facility] Work Phone: Absolute lymphocyte counton 05-05-2021 Lymphocytes Auto (Unsp spec) [#/Vol] 1.90 10*3/uL 0.83-4.51 [facility] Work Phone: Amorphous sediment detection in urine sediment by light microscopyon 05-05-2021 Amorphous sediment LM Ql (Urine sed) 1+ URATE [facility] Work Phone: Basophil percentageon 2021 Basophil percentage 10-25 SEEN /hpf 0-5 [facility] Work Phone: Basophils/100 WBC (Bld) 0.6 % 0-1 [facility] Work Phone: Bilirubin [Mass/Vol] 0.50 mg/dL 0.20-1.00 [facility] Work Phone: [phone] Comment on above: For patients on eltr ombopag therapy, use of Dimension [place] TBIL is not recommended. Chloride [Moles/Vol] 106 mmol/L 98-107 [facility] Work Phone: Cholesterol [Mass/Vol] 202 mg/dL <200 [facility] Work Phone: Comment on above: <200 mg/dL Desirable 200-240 mg/dL Borderline >240 mg/dL High Risk Eosinophils/100 WBC (Bld) 2.2 % 0-5 [facility] Work Phone: Glucose [Mass/Vol] 105 mg/dL 74-106 [facility] Work Phone: Comment on above: Fasting Glucose resu lt from 100 to 125 mg/dL suggests IMPAIRED HOMEOSTASIS per A.D.A. criteria. Neutrophils (Bld) [#/Vol] 5.9 10*3/uL 2.0-7.7 [facility] Work Phone: Neutrophils/100 WBC (Bld) 67.4 % 47-70 [facility] Work Phone: Potassium [Moles/Vol] 4.1 mmol/L 3.5-5.1 [facility] Work Phone: Protein [Mass/Vol] 7.5 g/dL 6.4-8.2 [facility] Work Phone: Sodium [Moles/Vol] 137 mmol/L 136-145 [facility] Work Phone: Triglyceride [Mass/Vol] 151 mg/dL <199 [facility] Work Phone: Comment on above: The drugs N-Acetylcy steine and Metamizole may falsely depress this assay.Serum Triglycerides Reference Interval Normal <150 mg/dL Borderline high 150 - 199 mg/dL High 200 - 499 mg/dL Very High > or = 500 mg/dL WBC (Bld) [#/Vol] 8.8 10*3/uL 4.4-11.0 [facility] Work Phone: Bilirubin Test strip Ql (U)o n 05-05-2021 Bilirubin Ql (U) Negative Negative [facility] Work Phone: Blood erythrocytes count (nu mber/volume)on 05-05-2021 RBC (Bld) [#/Vol] 4.82 10*6/uL 4.2-5.4 [facility] Work Phone: Blood hemoglobin measurement (mass/volume)on 05-05-2021 Hemoglobin (Bld) [Mass/Vol] 14.6 g/dL 12.0-15.0 [facility] Work Phone: Blood lymphocytes/100 leukoc yteson 05-05-2021 Lymphocytes/100 WBC (Bld) 21.7 % 19-41 [facility] Work Phone: Blood monocytes/100 leukocyt eson 05-05-2021 Monocytes/100 WBC (Bld) 7.9 % 0-10 [facility] Work Phone: Blood platelet mean volumeon 05-05-2021 Platelet mean volume (Bld) [Entitic vol] 13.0 fL 6.2-12.0 [facility] Work Phone: Determination of erythrocyte mean corpuscular volume (MCV)on 05-05-2021 MCV (RBC) [Entitic vol] 93.8 fL 81-99 [facility] Work Phone: Hematocrit Auto (Bld) [Volum e fraction]on 05-05-2021 Hematocrit (Bld) [Volume fraction] 45.2 % 37-47 [facility] Work Phone: Ketones Test strip Ql (U)on 05-05-2021 Ketones Ql (U) Negative Negative [facility] Work Phone: Laboratory - Chemistry and C hemistry - challengeon 05-05-2021 ALP [Catalytic activity/Vol] 69 U/L 45-117 [facility] Work Phone: ALT [Catalytic activity/Vol] 28 U/L 13-56 [facility] Work Phone: CO2 [Moles/Vol] 25.0 mmol/L 21.0-32.0 [facility] Work Phone: Globulin (S) [Mass/Vol] 4.1 g/dL 2.2-4.2 [facility] Work Phone: Magnesium [Mass/Vol] 2.4 mg/dL 1.6-2.6 [facility] Work Phone: Urea nitrogen/Creatinine [Mass ratio] 15.1 mg/mg 10-20 [facility] Work Phone: Laboratory - Hematology and Cell countson 05-05-2021 Erythrocyte distribution width (RBC) [Entitic vol] 46.7 fL 35.1-43.9 [facility] Work Phone: Erythrocyte distribution width (RBC) [Ratio] 13.7 % 11.6-14.6 [facility] Work Phone: Immature granulocytes/100 WBC (Bld) 0.200 % 0.0-0.9 [facility] Work Phone: Comment on above: IG% - Immature Granu locytes (promyelocytes, myelocytes and metamyelocytes) > 1% indicates that a LEFT SHIFT is Present. MCH (RBC) [Entitic mass] 30.3 pg 27.0-32.0 [facility] Work Phone: Nucleated RBC/100 WBC (Bld) [Ratio] 0 % 0-5 [facility] Work Phone: MCHC Auto (RBC) [Mass/Vol]on 05-05-2021 MCHC (RBC) [Mass/Vol] 32.3 g/dL 32-36 [facility] Work Phone: Mucus LM Ql (Urine sed)on Mucus Ql (Urine sed) 0 SEEN /hpf [facility] Work Phone: Nitrite Test strip Ql (U)on 05-05-2021 Nitrite Ql (U) Negative Negative [facility] Work Phone: No Panel Informationon 05-05 Estimated GFR (MDRD) Amer 66 mL/min >60 [facility] Work Phone: Comment on above: GFR Calc Estimated GFR (MDRD) Non-Af Amer 54 mL/min >60 [facility] Work Phone: Comment on above: Non- GFR Calc Thyroid Stimulating Hormone (TSH) 2.01 uIU/mL 0.358-3.74 [facility] Work Phone: Platelets bldon 05-05-2021 Platelets (Bld) [#/Vol] 206 10*3/uL 150-450 [facility] Work Phone: Protein Test strip Ql (U)on 05-05-2021 Protein Ql (U) 30 mg/dl Negative [facility] Work Phone: Serum or plasma albumin kendall urement (mass/volume)on 05-05-2021 Albumin [Mass/Vol] 3.4 g/dL 3.2-5.0 [facility] Work Phone: Serum or plasma albumin/glob ulin mass ratioon 05-05-2021 Albumin/Globulin [Mass ratio] 0.8 {ratio} 0.9-2.4 [facility] Work Phone: Serum or plasma calcium kendall urement (mass/volume)on 05-05-2021 Calcium [Mass/Vol] 8.7 mg/dL 8.5-10.1 [facility] Work Phone: Serum or plasma cholesterol in HDL measurement (mass/volume)on 05-05-2021 Cholesterol in HDL [Mass/Vol] 46 mg/dL >40 [facility] Work Phone: Comment on above: The drugs N-Acetylcy steine and Metamizole may falsely depress this assay. Reference Range HDL <40 mg/dL Low HDL Cholesterol HDL >or= 60 mg/dL High HDL Cholesterol Serum or plasma cholesterol in VLDL measurement (mass/volume)on 05-05-2021 Cholesterol in VLDL [Mass/Vol] 30 mg/dL 5-40 [facility] Work Phone: Serum or plasma creatinine m easurement (mass/volume)on 05-05-2021 Creatinine [Mass/Vol] 1.06 mg/dL 0.55-1.02 [facility] Work Phone: Comment on above: The validity of the calculated GFR & GFRAA in patients over 70 years has not been determined. Clinical correlation is essential. Serum or plasma low density lipoprotein (LDL) cholesterol measurement (mass/volume)on 05-05-2021 Cholesterol in LDL [Mass/Vol] 126 mg/dL 0-130 [facility] Work Phone: Serum or plasma urea nitroge n measurement (mass/volume)on 05-05-2021 Urea nitrogen [Mass/Vol] 16 mg/dL 7-18 [facility] Work Phone: Squamous epithelial cells de tection in urine sediment by light microscopyon 05-05-2021 Epithelial cells.squamous LM Ql (Urine sed) 0-5 SEEN /hpf 5-10 [facility] Work Phone: Thin prep Papanicolaou smear with manual screeningon 05-05-2021 Thin prep Papanicolaou smear with manual screening 17 U/L 15-37 [facility] Work Phone: Thin prep Papanicolaou smear with manual screening 6 5-15 [facility] Work Phone: Urine blood detectionon 03- RBC Ql (U) 10 /ul Negative [facility] Work Phone: RBC Ql (U) 0-5 SEEN /hpf 0-5 [facility] Work Phone: Urine clarityon 05-05-2021 Clarity (U) Clear Clear [facility] Work Phone: Urine color determinationon 05-05-2021 Color (U) Yellow Yellow [facility] Work Phone: Urine glucose detectionon Glucose Ql (U) Normal mg/dl Normal [facility] Work Phone: Urine leukocyte esterase det ection by dipstickon 05-05-2021 Leukocyte esterase Test strip Ql (U) 100 /ul Negative [facility] Work Phone: Urine pHon 05-05-2021 pH (U) 6.0 [pH] 5.0 - 8.0 [facility] Work Phone: Urine sediment bacteria coun t by microscopy (number/high power field)on 05-05-2021 Bacteria LM.HPF (Urine sed) [#/Area] 2 /[HPF] None Seen [facility] Work Phone: Urine specific gravity measu rementon 05-05-2021 Specific gravity (U) [Rel density] 1.025 1.002-1.030 [facility] Work Phone: Urobilinogen Auto test strip Ql (U)on 05-05-2021 Urobilinogen Ql (U) Normal mg/dl Normal [facility] Work Phone: Whole blood hemoglobin A1c/t otal hemoglobin ratio (mass fraction)on 05-05-2021 HbA1c (Bld) [Mass fraction] 5.7 % 3.8-5.6 [facility] Work Phone: Comment on above: Normal < 5.7 % Predi abetic 5.7 - 6.4 % Diabetic >or= 6.5 % Please note range changes. OBSOLETEon 11-27-2020 OBSOLETE Refill (OBGYWM) ----- DIVYA JOSEPH ([id number]) 1950 F Date Time Provider Department 11/27/20 EVELYN WOOD OBAKRIN During your visit today, we recorded the following information about you: Cecile Mir LPN 11/27/2020 2:49 PM Signed See pharmacy generated refill request. Pt was last seen in the office 01/16/19. Message left for pt to call the office to schedule her yearly exam and mammogram. Cecile Jeffersdimas Ramirez RN 11/27/2020 3:36 PM Signed Patient returned call. States she is currently in the hospital and will have an extended recovery time. Will call back to schedule. Please file pending RX. Alanna Ramirez RN Allergies As of Date: 11/27/2020 Noted Allergy Reaction LIPITOR (ATORVASTATIN) 06/30/2012 14 - Other: See Comments Comments: Dizziness, Nausea, and Excessive Mouth Watering NEOSPORIN (BENZALKONIUM CHLORIDE) 10/09/2012 9 - Itching PENICILLINS 06/30/2012 9 - Itching SULFAMETHIZOLE 06/30/2012 14 - Other: See Comments Comments: Black-outs with this medication Date Reviewed: 01/16/2019 Reviewed by: Evelyn Wood - Fully Assessed Reason for Visit: Refill Request [94] Order(s):TOVIAZ 4 mg Tb24 extended release tabletTAKE 1 TABLET BY MOUTH EVERY DAYDisp: 30 tabletRfl: 3 Prescriptions as of 11/28/2020 - TOVIAZ 4 mg Tb24 extended release tablet TAKE 1 TABLET BY MOUTH EVERY DAY - Isosorbide Mononitrate 10 mg tablet TAKE 1 TABLET BY MOUTH TWICE DAILY FOR HEART - metoprolol tartrate, short acting, (LOPRESSOR) 25 mg tablet TAKE 1 2 (ONE HALF) TABLET BY MOUTH TWICE DAILY FOR HEART BLOOD PRESSURE - warfarin (COUMADIN) 5 mg tablet TAKE 1 TABLET BY MOUTH ON TUESDAY AND TUESDAY - warfarin (COUMADIN) 2.5 mg tablet TAKE 1 TABLET BY MOUTH TUESDAY THROUGH TUESDAY - pantoprazole DR (PROTONIX) 40 mg tablet Take 40 mg by mouth once daily. - potassium chloride (K-TAB) 10 mEq tablet Take 20 mEq by mouth once daily. - montelukast (SINGULAIR) 10 mg tablet Take 10 mg by mouth daily at bedtime. - VENTOLIN HFA 90 mcg/actuation inhaler - pravastatin (PRAVACHOL) 20 mg tablet Take 1 tablet by mouth daily at bedtime. - loratadine (CLARITIN) 10 mg tablet Take 1 tablet by mouth once daily. - aspirin 325 mg tablet Take 325 mg by mouth once daily. - meloxicam (MOBIC) 7.5 mg tablet Take 7.5 mg by mouth twice daily. - NITROGLYCERIN (NITRO-BID TRANSDERM.) Apply as directed. Apply every morning and remove at night - nitroglycerin sublingual (NITROSTAT) 0.4 mg SL tablet Dissolve 0.4 mg under the tongue every 5 minutes as needed. - clopidogrel (PLAVIX) 75 mg tablet Take 75 mg by mouth once daily. - enalapril (VASOTEC) 10 mg tablet Take 10 mg by mouth twice daily. Problem List As Of Date 11/27/2020 Noted Resolved Rectal bleed [K62.5] 06/30/2012 CAD (coronary artery disease) [I25.10] 10/09/2012 Hypertension [I10] 10/09/2012 Hyperlipidemia [E78.5] 10/09/2012 Carotid artery disease [I77.9] 10/09/2012 Prescriptions ordered this encounter Disp Refills Start End TOVIAZ 4 MG TABLET,EXTENDED RELEASE 30 t* 3 11/28/2020 Sig: TAKE 1 TABLET BY MOUTH EVERY DAY Medications Discontinued During This Encounter Prescriptions - TOVIAZ 4 mg Tb24 extended release tablet (Discontinued) TAKE 1 TABLET BY MOUTH EVERY DAY Encounter Status:Closed by CHICHO AKERS on 11/28/20 Normal [facility] Hemoglobin A1c/Hemoglobin.total mass fraction (Bld) 5.5 % Normal 4.3-6.0 [facility] [place] Comment on above: Performed By: #### L [phone] ####[facility] [id number] [place], [place] [address]Mm# [phone] Lower GI hemoglobin IA Ql (S tl) Stool Occult Blood (ALLA) Positive [facility] Work Phone: Vital Signs Date Time Vital Sign Value Performing Clinician Facility 11-19-2024 19:27-0400 Body temperature 97.9 [degF] Kati Acosta MD Work Phone: [facility] 11-19-2024 19:27-0400 Diastolic blood pressure 61 mm[Hg] Kati Acosta MD Work Phone: [facility] 11-19-2024 19:27-0400 Heart rate 60 /min Kati Acosta MD Work Phone: [facility] 11-19-2024 19:27-0400 Respiratory rate 18 /min Kati Acosta MD Work Phone: [facility] 11-19-2024 19:27-0400 SaO2% (BldA) [Mass fraction] 99 % Kati Acosta MD Work Phone: [facility] 11-19-2024 19:27-0400 Systolic blood pressure 153 mm[Hg] Kati Acosta MD Work Phone: [facility] 11-17-2024 05:00-0400 Body mass index (BMI) [Ratio] 27.1 kg/m2 Kati Acosta MD Work Phone: [facility] 11-17-2024 05:00-0400 Body weight 69.4 kg Kati Acosta MD Work Phone: [facility] 11-14-2024 15:12-0400 Body height 160 cm Kati Acosta MD Work Phone: [facility] 11-09-2024 22:50-0400 Body temperature 98.2 [degF] Dr. Erasmo Pierre MD Work Phone: [facility] 11-09-2024 22:50-0400 Diastolic blood pressure 55 mm[Hg] Dr. Erasmo Pierre MD Work Phone: [facility] 11-09-2024 22:50-0400 Heart rate 62 /min Dr. Erasmo Pierre MD Work Phone: [facility] 11-09-2024 22:50-0400 Respiratory rate 16 /min Dr. Erasmo Pierre MD Work Phone: [facility] 11-09-2024 22:50-0400 SaO2% (BldA) [Mass fraction] 97 % Dr. Erasmo Pierre MD Work Phone: [facility] 11-09-2024 22:50-0400 Systolic blood pressure 150 mm[Hg] Dr. Erasmo Pierre MD Work Phone: [facility] 11-09-2024 18:59-0400 Body height 160.[address] Erasmo Pierre MD Work Phone: [facility] 11-09-2024 18:59-0400 Body mass index (BMI) [Ratio] 27.2 kg/m2 Dr. Erasmo Pierre MD Work Phone: [facility] 11-09-2024 18:59-0400 Body weight 69.[address] Erasmo Pierre MD Work Phone: [facility] 10-28-2024 16:34-0400 Diastolic blood pressure 62 mm[Hg] Carlos Dsouza MD Work Phone: [facility] 10-28-2024 16:34-0400 Heart rate 61 /min Carlos Dsouza MD Work Phone: [facility] 10-28-2024 16:34-0400 Respiratory rate 16 /min Carlos Dsouza MD Work Phone: [facility] 10-28-2024 16:34-0400 SaO2% (BldA) [Mass fraction] 97 % Carlos Dsouza MD Work Phone: [facility] 10-28-2024 16:34-0400 Systolic blood pressure 156 mm[Hg] Carlos Dsouza MD Work Phone: [facility] 10-28-2024 10:08-0400 Body temperature 98.29 [degF] Carlos Dsouza MD Work Phone: [facility] 09-27-2024 10:07-0400 Body height 160.[address] Rosanne Waddell DO Work Phone: [facility] 09-27-2024 10:07-0400 Body mass index (BMI) [Ratio] 26.9 kg/m2 Dr. Rosanne Waddell DO Work Phone: [facility] 09-27-2024 10:07-0400 Body weight 68.[address] Rosanne Waddell DO Work Phone: [facility] 09-27-2024 10:07-0400 Diastolic blood pressure 66 mm[Hg] Dr. Rosanne Waddell DO Work Phone: [facility] 09-27-2024 10:07-0400 Heart rate 68 /min Dr. Rosanne Waddell DO Work Phone: [facility] 09-27-2024 10:07-0400 Respiratory rate 18 /min Dr. Rosanne Waddell DO Work Phone: [facility] 09-27-2024 10:07-0400 Systolic blood pressure 110 mm[Hg] Dr. Rosanne Waddell DO Work Phone: [facility] 08-30-2024 15:13-0400 Diastolic blood pressure 42 mm[Hg] Dr. Erasmo Pierre MD Work Phone: [facility] 08-30-2024 15:13-0400 Systolic blood pressure 75 mm[Hg] Dr. Erasmo Pierre MD Work Phone: [facility] 08-30-2024 14:48-0400 Body temperature 97.8 [degF] Dr. Erasmo Pierre MD Work Phone: [facility] 08-30-2024 14:48-0400 Heart rate 67 /min Dr. Erasmo Pierre MD Work Phone: [facility] 08-30-2024 14:48-0400 SaO2% (BldA) [Mass fraction] 95 % Dr. Erasmo Pierre MD Work Phone: [facility] 08-30-2024 14:33-0400 Body height 160.[address] Erasmo Pierre MD Work Phone: [facility] 08-30-2024 14:33-0400 Body mass index (BMI) [Ratio] 25.8 kg/m2 Dr. Erasmo Pierre MD Work Phone: [facility] 08-30-2024 14:33-0400 Body weight 66.[address] Erasmo Pierre MD Work Phone: [facility] 08-30-2024 14:33-0400 Respiratory rate 18 /min Dr. Erasmo Pierre MD Work Phone: [facility] 06-08-2024 14:55-0400 Diastolic Blood Pressure Non-Invasive 57 mm[Hg] REFUGIO GARCIA MD [facility] 06-08-2024 14:55-0400 Heart rate 66 /min REFUGIO GARCIA MD [facility] 06-08-2024 14:55-0400 Respiratory rate 18 /min REFUGIO GARCIA MD [facility] 06-08-2024 14:55-0400 Systolic Blood Pressure Non-Invasive 107 mm[Hg] REFUGIO GARCIA MD [facility] 06-08-2024 14:40-0400 Diastolic Blood Pressure Non-Invasive 62 mm[Hg] REFUGIO GARCIA MD [facility] 06-08-2024 14:40-0400 Heart rate 65 /min REFUGIO GARCIA MD [facility] 06-08-2024 14:40-0400 Respiratory rate 18 /min REFUGIO GARCIA MD [facility] 06-08-2024 14:40-0400 Systolic Blood Pressure Non-Invasive 112 mm[Hg] REFUGIO GARCIA MD [facility] 06-08-2024 14:25-0400 Diastolic Blood Pressure Non-Invasive 74 mm[Hg] REFUGIO GARCIA MD [facility] 06-08-2024 14:25-0400 Heart rate 62 /min REFUGIO GARCIA MD [facility] 06-08-2024 14:25-0400 Respiratory rate 18 /min REFUGIO GARCIA MD [facility] 06-08-2024 14:25-0400 Systolic Blood Pressure Non-Invasive 132 mm[Hg] REFUGIO GARCIA MD [facility] 06-08-2024 10:30-0400 Body height 160 cm REFUGIO GARCIA MD [facility] 06-08-2024 10:30-0400 Body temperature 97.7 [degF] REFUGIO GARCIA MD [facility] 06-08-2024 10:30-0400 Body weight 60.7 kg REFUGIO GARCIA MD [facility] 06-08-2024 10:30-0400 Heart rate 60 /min REFUGIO GARCIA MD [facility] 07-05-2023 10:40-0400 Body height 157.[address] Erasmo Pierre Work Phone: [facility] 07-05-2023 10:40-0400 Body mass index (BMI) [Ratio] 30.9 kg/m2 Dr. Erasmo Pierre Work Phone: [facility] 07-05-2023 10:40-0400 Body weight 76.[address] Erasmo Pierre Work Phone: [facility] 07-05-2023 10:40-0400 Diastolic blood pressure 73 mm[Hg] Dr. Erasmo Pierre Work Phone: [facility] 07-05-2023 10:40-0400 Heart rate 59 /min Dr. Erasmo Pierre Work Phone: [facility] 07-05-2023 10:40-0400 Respiratory rate 16 /min Dr. Erasmo Pierre Work Phone: [facility] 07-05-2023 10:40-0400 Systolic blood pressure 115 mm[Hg] Dr. Erasmo Pierre Work Phone: [facility] 05-23-2023 12:18-0400 Body height 157.[address] Erasmo Pierre Work Phone: [facility] 05-23-2023 12:18-0400 Body weight 81.[address] Erasmo Pierre Work Phone: [facility] 05-20-2023 11:18-0400 Body mass index (BMI) [Ratio] 32.7 kg/m2 Dr. Erasmo Pierre Work Phone: [facility] 05-17-2023 16:00-0400 Body height 157.[address] Erasmo Pierre Work Phone: [facility] 05-17-2023 15:53-0400 Body weight 81.[address] Erasmo Pierre Work Phone: [facility] 05-17-2023 15:53-0400 Diastolic blood pressure 59 mm[Hg] Dr. Erasmo Pierre Work Phone: [facility] 05-17-2023 15:53-0400 Heart rate 67 /min Dr. Erasmo Pierre Work Phone: [facility] 05-17-2023 15:53-0400 Respiratory rate 18 /min Dr. Erasmo Pierre Work Phone: [facility] 05-17-2023 15:53-0400 SaO2% (BldA) [Mass fraction] 95 % Dr. Erasmo Pierre Work Phone: [facility] 05-17-2023 15:53-0400 Systolic blood pressure 111 mm[Hg] Dr. Erasmo Pierre Work Phone: [facility] 02-01-2023 09:28-0500 Body height 157.[address] Erasmo Pierre Work Phone: [facility] 02-01-2023 09:28-0500 Body mass index (BMI) [Ratio] 32.1 kg/m2 Dr. Erasmo Pierre Work Phone: [facility] 02-01-2023 09:28-0500 Body weight 79.[address] Erasmo Pierre Work Phone: [facility] 02-01-2023 09:28-0500 Diastolic blood pressure 71 mm[Hg] Dr. Erasmo Pierre Work Phone: [facility] 02-01-2023 09:28-0500 Heart rate 61 /min Dr. Erasmo Pierre Work Phone: [facility] 02-01-2023 09:28-0500 Respiratory rate 22 /min Dr. Erasmo Pierre Work Phone: [facility] 02-01-2023 09:28-0500 SaO2% (BldA) [Mass fraction] 96 % Dr. Erasmo Pierre Work Phone: [facility] 02-01-2023 09:28-0500 Systolic blood pressure 103 mm[Hg] Dr. Erasmo Pierre Work Phone: 4(635)071-094923 [place] [address] 12-30-2022 15:43-0400 Diastolic blood pressure 76 mm[Hg] Dr. Erasmo Pierre Work Phone: 2(541)187-071423 [place] [address] 12-30-2022 15:43-0400 Heart rate 61 /min Dr. Erasmo Pierre Work Phone: [facility] 12-30-2022 15:43-0400 Systolic blood pressure 135 mm[Hg] Dr. Erasmo Pierre Work Phone: [facility] 12-30-2022 15:36-0400 Body mass index (BMI) [Ratio] 33.2 kg/m2 Dr. Erasmo Pierre Work Phone: [facility] 12-30-2022 15:36-0400 Body weight 82.[address] Erasmo Pierre Work Phone: [facility] 12-30-2022 15:34-0400 Respiratory rate 18 /min Dr. Erasmo Pierre Work Phone: [facility] 12-30-2022 15:34-0400 SaO2% (BldA) [Mass fraction] 97 % Dr. Erasmo Pierre Work Phone: [facility] 12-30-2022 10:57-0400 Body temperature 96.2 [degF] Dr. Erasmo Pierre Work Phone: [facility] 12-13-2022 13:22-0400 Heart rate 60 /min Dr. Erasmo Pierre Work Phone: 8(792)773-267823 [place] [address] 12-13-2022 13:22-0400 Respiratory rate 20 /min Dr. Erasmo Pierre Work Phone: 7(311)252-585223 [place] [address] 12-13-2022 11:15-0400 Body mass index (BMI) [Ratio] 32.7 kg/m2 Dr. Erasmo Pierre Work Phone: 7(828)428-888011 [place] [address] 12-13-2022 11:15-0400 Body temperature 96.7 [degF] Dr. Erasmo Pierre Work Phone: 5(928)153-714723 [place] [address] 12-13-2022 11:15-0400 Body weight 81.[address] Erasmo Pierre Work Phone: 1(310)359-287723 [place] [address] 12-13-2022 11:15-0400 Diastolic blood pressure 77 mm[Hg] Dr. Erasmo Pierre Work Phone: 1(824)912-17[address] [place] [address] 12-13-2022 11:15-0400 SaO2% (BldA) [Mass fraction] 94 % Dr. Erasmo Pierre Work Phone: [facility] 12-13-2022 11:15-0400 Systolic blood pressure 112 mm[Hg] Dr. Erasmo Pierre Work Phone: [facility] 12-02-2022 15:28-0400 Diastolic blood pressure 76 mm[Hg] Dr. Erasmo Pierre Work Phone: [facility] 12-02-2022 15:28-0400 Systolic blood pressure 124 mm[Hg] Dr. Erasmo Pierre Work Phone: 9(659)762-837223 [place] [address] 12-02-2022 13:27-0400 Body mass index (BMI) [Ratio] 34.4 kg/m2 Dr. Erasmo Pierre Work Phone: [facility] 12-02-2022 13:27-0400 Body weight 85.[address] Erasmo Pierre Work Phone: [facility] 12-02-2022 13:06-0400 Heart rate 60 /min Dr. Erasmo Pierre Work Phone: [facility] 12-02-2022 13:06-0400 Respiratory rate 18 /min Dr. Erasmo Pierre Work Phone: [facility] 12-02-2022 13:06-0400 SaO2% (BldA) [Mass fraction] 98 % Dr. Erasmo Pierre Work Phone: [facility] 12-02-2022 12:57-0400 Body temperature 96.8 [degF] Dr. Erasmo Pierre Work Phone: 0(721)763-357023 [place] [address] 02-23-2022 10:14-0500 Body height 157.[address] Erasmo Pierre Work Phone: 9(359)530-753723 [place] [address] 02-23-2022 10:14-0500 Body mass index (BMI) [Ratio] 32.9 kg/m2 Dr. Erasmo Pierre Work Phone: [facility] 02-23-2022 10:14-0500 Body weight 81.[address] Erasmo Pierre Work Phone: [facility] 02-23-2022 10:14-0500 Diastolic blood pressure 73 mm[Hg] Dr. Erasmo Pierre Work Phone: [facility] 02-23-2022 10:14-0500 Heart rate 66 /min Dr. Erasmo Pierre Work Phone: [facility] 02-23-2022 10:14-0500 Respiratory rate 20 /min Dr. Erasmo Pierre Work Phone: [facility] 02-23-2022 10:14-0500 SaO2% (BldA) [Mass fraction] 98 % Dr. Erasmo Pierre Work Phone: [facility] 02-23-2022 10:14-0500 Systolic blood pressure 108 mm[Hg] Dr. Erasmo Pierre Work Phone: [facility] 02-22-2022 08:07-0500 Body mass index (BMI) [Ratio] 32.5 kg/m2 Dr. Erasmo Pierre Work Phone: [facility] 02-22-2022 08:07-0500 Body weight 80.[address] Erasmo Pierre Work Phone: [facility] 02-22-2022 08:07-0500 Diastolic blood pressure 60 mm[Hg] Dr. Erasmo Pierre Work Phone: [facility] 02-22-2022 08:07-0500 Heart rate 80 /min Dr. Erasmo Pierre Work Phone: [facility] 02-22-2022 08:07-0500 SaO2% (BldA) [Mass fraction] 96 % Dr. Erasmo Pierre Work Phone: [facility] 02-22-2022 08:07-0500 Systolic blood pressure 106 mm[Hg] Dr. Erasmo Pierre Work Phone: [facility] 01-14-2022 10:00-0500 Diastolic blood pressure 73 mm[Hg] Dr. Erasmo Pierre Work Phone: [facility] 01-14-2022 10:00-0500 Heart rate 81 /min Dr. Erasmo Pierre Work Phone: [facility] 01-14-2022 10:00-0500 Respiratory rate 18 /min Dr. Erasmo Pierre Work Phone: [facility] 01-14-2022 10:00-0500 SaO2% (BldA) [Mass fraction] 94 % Dr. Erasmo Pierre Work Phone: [facility] 01-14-2022 10:00-0500 Systolic blood pressure 141 mm[Hg] Dr. Erasmo Pierre Work Phone: [facility] 01-14-2022 07:46-0500 Body height 157.[address] Erasmo Pierre Work Phone: [facility] Work Phone: 01-14-2022 07:46-0500 Body mass index (BMI) [Ratio] 32.5 kg/m2 Dr. Erasmo Pierre Work Phone: [facility] 01-14-2022 07:46-0500 Body temperature 97.5 [degF] Dr. Erasmo Pierre Work Phone: [facility] 01-14-2022 07:46-0500 Body weight 80.[address] Erasmo Pierre Work Phone: [facility] 11-20-2021 10:38-0400 Body mass index (BMI) [Ratio] 32.6 kg/m2 Dr. Erasmo Pierre Work Phone: [facility] Work Phone: 11-20-2021 10:38-0400 Body temperature 96.8 [degF] Dr. Erasmo Pierre Work Phone: [facility] Work Phone: 11-20-2021 10:38-0400 Body weight 80.[address] Erasmo Pierre Work Phone: [facility] Work Phone: 11-20-2021 10:38-0400 Diastolic blood pressure 62 mm[Hg] Dr. Erasmo Pierre Work Phone: [facility] Work Phone: 11-20-2021 10:38-0400 Heart rate 62 /min Dr. Erasmo Pierre Work Phone: [facility] Work Phone: 11-20-2021 10:38-0400 Respiratory rate 16 /min Dr. Erasmo Pierre Work Phone: [facility] Work Phone: 11-20-2021 10:38-0400 SaO2% (BldA) [Mass fraction] 98 % Dr. Erasmo Pierre Work Phone: [facility] Work Phone: 11-20-2021 10:38-0400 Systolic blood pressure 108 mm[Hg] Dr. Erasmo Pierre Work Phone: [facility] Work Phone: 06-04-2021 13:17-0400 Body height 162.[address] Erasmo Pierre Work Phone: [facility] Work Phone: 06-04-2021 13:17-0400 Body mass index (BMI) [Ratio] 30.7 kg/m2 Dr. Erasmo Pierre Work Phone: [facility] Work Phone: 06-04-2021 13:17-0400 Body weight 81.[address] Erasmo Pierre Work Phone: [facility] Work Phone: 06-04-2021 13:17-0400 Diastolic blood pressure 69 mm[Hg] Dr. Erasmo Pierre Work Phone: [facility] Work Phone: 06-04-2021 13:17-0400 Heart rate 71 /min Dr. Erasmo Pierre Work Phone: [facility] Work Phone: 06-04-2021 13:17-0400 Respiratory rate 20 /min Dr. Erasmo Pierre Work Phone: [facility] Work Phone: 06-04-2021 13:17-0400 Systolic blood pressure 107 mm[Hg] Dr. Erasmo Pierre Work Phone: [facility] Work Phone: 05-07-2021 15:00-0500 Diastolic blood pressure 75 mm[Hg] Dr. Erasmo Pierre Work Phone: [facility] Work Phone: 05-07-2021 15:00-0500 Heart rate 64 /min Dr. Erasmo Pierre Work Phone: [facility] Work Phone: 05-07-2021 15:00-0500 Respiratory rate 18 /min Dr. Erasmo Pierre Work Phone: [facility] Work Phone: 05-07-2021 15:00-0500 SaO2% (BldA) [Mass fraction] 97 % Dr. Erasmo Pierre Work Phone: [facility] Work Phone: 05-07-2021 15:00-0500 Systolic blood pressure 153 mm[Hg] Dr. Erasmo Pierre Work Phone: [facility] Work Phone: 05-07-2021 10:24-0500 Body mass index (BMI) [Ratio] 30.7 kg/m2 Dr. Erasmo Pierre Work Phone: [facility] Work Phone: 05-07-2021 10:24-0500 Body temperature 97 [degF] Dr. Erasmo Pierre Work Phone: [facility] Work Phone: 05-07-2021 10:24-0500 Body weight 81.[address] Erasmo Pierre Work Phone: [facility] Work Phone: Encounters Encounter Date Encounter Type Care Provider Facility Start: 12-10-2024 End: 12-11-2024 Telephone encounter Kamla Breen PA-C Work Phone: [facility] Comment on above: Other Start: 11-13-2024 End: 11-19-2024 Evaluation and management of inpatient Kati Acosta MD Work Phone: [facility] Medical Surgical Unit [facility] Start: 11-09-2024 End: 11-09-2024 Emergency department patient visit Dr. Erasmo Pierre MD Work Phone: -Emergency Department Work Phone: Start: 11-09-2024 End: 11-09-[address] Rosanne Waddell DO Work Phone: -[facility] Start: 11-09-2024 End: 11-09-[address] Quinn Pérez MD -[facility] Work Phone: Start: 10-28-2024 End: 10-28-2024 Emergency department patient visit Carlos Dsouza MD Work Phone: [facility] ED Comment on above: Acute chest pain (Pr imary Dx) Start: 09-27-2024 End: 09-27-2024 Patient encounter procedure Erasmo KUMAR -[facility] Work Phone: Start: 09-27-2024 End: 09-27-[address] Rosanne Waddell DO Work Phone: -[facility] Start: 08-30-2024 End: 08-30-[address] Erasmo Pierre MD Work Phone: -Laboratory Start: 08-30-2024 End: 08-30-2024 Patient encounter procedure Erasmo Luna NP-C -Laboratory Work Phone: Start: 08-30-2024 End: 08-30-2024 Patient encounter procedure Erasmo Luna NP-C -[facility] Work Phone: Start: 08-30-2024 End: 08-30-[address] Erasmo Pierre MD Work Phone: [facility] Work Phone: Start: 08-30-2024 End: 08-30-2024 ambulatory Rosanne Waddell Facility:[facility] Start: 08-13-2024 End: 08-13-2024 Subsequent hospital visit by physician Tom Gracia PA-C Work Phone: [facility] Neuro Comment on above: Carpal tunnel syndro me, bilateral upper limbs Start: 08-13-2024 End: 08-13-2024 ambulatory TOM GRACIA [facility] Start: 08-10-2024 End: 08-10-[address] Erasmo Pierre MD Work Phone: [facility] Work Phone: Start: 08-10-2024 End: 08-10-[address] Quinn Pérez MD -[facility] Work Phone: Start: 07-13-2024 End: 10-12-2024 Transcribe Orders Tom Basil GALLARDO Work Phone: [facility] Central Scheduling Comment on above: Carpal tunnel syndro me, bilateral upper limbs (Primary Dx) Start: 07-12-2024 End: 07-12-2024 Patient encounter procedure Zhen Kirk DO -[facility] Work Phone: Start: 07-12-2024 End: 07-12-2024 ambulatory Rosanne Waddell Facility:[facility] Start: 06-08-2024 End: 06-08-2024 ambulatory DANAE TRACEY APRN-[employer] ADMINISTRATOR Facility:A Start: 06-08-2024 End: 06-08-2024 SAME DAY STAY REFUGIO GARCIA MD [facility] Start: 06-06-2024 ambulatory Rosanne Waddell Facility: [facility] Start: 06-06-2024 Non-patient / Non-visit Dr. Marah Hopson MD -[facility] Start: 06-06-2024 End: 06-06-[address] Erasmo Pierre MD Work Phone: [facility] Work Phone: Start: 06-06-2024 End: 06-06-[address] Erasmo Pierre MD Work Phone: -Pulmonary Services/Neurology Work Phone: Start: 06-06-2024 End: 06-06-2024 ambulatory Rosanne Waddell Facility:[facility] Start: 05-11-2024 End: 05-11-2024 ambulatory Quinn Pérez Facility:[facility] Start: 05-11-2024 End: 05-11-[address] Quinn Pérez MD -[facility] Work Phone: Start: 02-20-2024 End: 02-20-2024 ambulatory Quinn Pérez Facility:[facility] Start: 02-20-2024 End: 02-20-[address] Quinn Pérez MD -[facility] Work Phone: Start: 02-16-2024 End: 02-16-[address] Refugio Garcia MD -[facility] Work Phone: Start: 02-16-2024 End: 02-16-2024 ambulatory Refugio Garcia Facility:[facility] Start: 12-22-2023 End: 12-22-2023 ambulatory Refugio Garcia Facility:[facility] Start: 07-12-2023 End: 07-12-[address] Erasmo Pierre Work Phone: [facility] Gastroenterology Work Phone: Start: 07-08-2023 Non-patient / Non-visit Dr. Erasmo Pierre Work Phone: [facility] Work Phone: Start: 07-05-2023 End: 07-05-[address] Erasmo Pierre Work Phone: [facility] Work Phone: Start: 07-05-2023 End: 07-05-[address] Erasmo Pierre Work Phone: [facility] Work Phone: Start: 07-01-2023 Non-patient / Non-visit Dr. Erasmo Pierre Work Phone: [facility] Work Phone: Start: 06-17-2023 Non-patient / Non-visit Dr. Erasmo Pierre Work Phone: [facility] Work Phone: Start: 05-31-2023 End: 05-31-[address] Erasmo Pierre Work Phone: [facility] Work Phone: Start: 05-31-2023 End: 05-31-[address] Erasmo Pierre Work Phone: [facility] Work Phone: Start: 05-27-2023 End: 05-27-[address] Erasmo Pierre Work Phone: [facility] Work Phone: Start: 05-27-2023 End: 05-27-[address] Erasmo Pierre Work Phone: [facility] Work Phone: Start: 05-25-2023 End: 05-25-[address] Erasmo Pierre Work Phone: [facility] Work Phone: Start: 05-25-2023 End: 05-25-[address] Erasmo Pierre Work Phone: [facility] Work Phone: Start: 05-23-2023 End: 05-23-2023 Admission to same day surgery center Dr. Erasmo Pierre Work Phone: [facility]-Maintenance Repairman/Special Procedures Work Phone: Start: 05-23-2023 End: 05-23-[address] Erasmo Pierre Work Phone: [facility] Work Phone: Start: 05-20-2023 Non-patient / Non-visit Dr. Erasmo Pierre Work Phone: [facility] Work Phone: Start: 05-17-2023 End: 05-17-[address] Erasmo Pierre Work Phone: [facility] Work Phone: Start: 05-17-2023 End: 05-17-[address] Erasmo Pierre Work Phone: [facility] Work Phone: Start: 05-13-2023 End: 05-13-[address] Erasmo Pierre Work Phone: [facility] Work Phone: Start: 05-12-2023 End: 05-12-[address] Erasmo Pierre Work Phone: [facility] Work Phone: Start: 05-12-2023 End: 05-12-[address] [facility] Work [facility] Start: 05-11-2023 End: 05-11-[address] Erasmo Pierre Work Phone: [facility] Work Phone: Start: 05-11-2023 End: 05-11-[address] Erasmo Pierre Work Phone: [facility] Start: 04-29-2023 Non-patient / Non-visit Dr. Erasmo Pierre Work Phone: [facility] Work Phone: Start: 04-08-2023 Non-patient / Non-visit Dr. Erasmo Pierre Work Phone: [facility] Work Phone: Start: 04-01-2023 End: 04-01-[address] Erasmo Pierre Work Phone: [facility] Work Phone: Start: 04-01-2023 End: 04-01-[address] Erasmo Pierre Work Phone: [facility]-Laboratory, Specimen Work Phone: Start: 04-01-2023 Non-patient / Non-visit Dr. Erasmo Pierre Work Phone: [facility] Work Phone: Start: 03-31-2023 End: 03-31-[address] Erasmo Pierre Work Phone: [facility] Work Phone: Start: 03-31-2023 End: 03-31-[address] Erasmo Pierre Work Phone: [facility]-Laboratory Work Phone: Start: 03-18-2023 Non-patient / Non-visit Dr. Erasmo Pierre Work Phone: [facility] Work Phone: Start: 03-04-2023 Non-patient / Non-visit Dr. Erasmo Pierre Work Phone: [facility] Work Phone: Start: 02-24-2023 Non-patient / Non-visit Dr. Erasmo Pierre Work Phone: [facility] Work Phone: Start: 02-23-2023 Non-patient / Non-visit Dr. Ersamo Pierre Work Phone: [facility] Start: 02-23-[address] Erasmo Pierre Work Phone: [facility] Work Phone: Start: 02-21-2023 Non-patient / Non-visit Dr. Erasmo Pierre Work Phone: [facility] Start: 02-21-2023 End: 02-21-[address] Erasmo Pierre Work Phone: [facility] Work Phone: Start: 02-21-2023 End: 02-21-[address] [facility]asm[facility] Start: 02-18-2023 Non-patient / Non-visit Dr. Erasmo Pierre Work Phone: [facility] Work Phone: Start: 02-11-2023 End: 02-11-[address] Erasmo Pierre Work Phone: [facility] Work Phone: Start: 02-11-2023 Non-patient / Non-visit Dr. Erasmo Pierre Work Phone: [facility] Work Phone: Start: 02-01-2023 End: 02-01-[address] Erasmo Pierre Work Phone: [facility] Work Phone: Start: 02-01-2023 End: 02-01-[address] Erasmo Pierre Work Phone: [facility] Work Phone: Start: 01-24-2023 Non-patient / Non-visit Dr. Erasmo Pierre Work Phone: [facility] Work Phone: Start: 01-14-2023 Non-patient / Non-[facility] Work Phone: Start: 01-13-2023 End: 01-13-[address] Erasmo Pierre Work Phone: [facility] Work Phone: Start: 01-03-2023 Non-patient / Non-visit Dr. Erasmo Pierre Work Phone: [facility] Work Phone: Start: 12-31-2022 Non-patient / Non-visit Dr. Erasmo Pierre Work Phone: [facility] Work Phone: Start: 12-30-2022 End: 12-30-2022 Emergency department patient visit Dr. Erasmo Pierre Work Phone: [facility]-Emergency Department Work Phone: Start: 12-28-2022 End: 12-28-[address] Erasmo Pierre Work Phone: [facility] Work Phone: Start: 12-17-2022 Non-patient / Non-visit Dr. Erasmo Pierre Work Phone: [facility] Work Phone: Start: 12-13-2022 End: 12-13-2022 Emergency department patient visit Dr. Erasmo Pierre Work Phone: [facility]-Emergency Department Work Phone: Start: 12-03-2022 Non-patient / Non-visit Dr. Erasmo Pierre Work Phone: [facility] Work Phone: Start: 12-02-2022 End: 12-02-2022 Emergency department patient visit Dr. Erasmo Pierre Work Phone: [facility]-Emergency Department Work Phone: Start: 11-19-2022 Non-patient / Non-visit Dr. Erasmo Pierre Work Phone: [facility] Work Phone: Start: 11-12-2022 End: 11-12-[address] Erasmo Pierre Work Phone: [facility] Work Phone: Start: 10-26-2022 End: 10-26-[address] Erasmo Pierre Work Phone: [facility] Start: 10-15-2022 Non-patient / Non-visit Dr. Erasmo Pierre Work Phone: [facility] Work Phone: Start: 08-20-2022 Non-patient / Non-visit Dr. Erasmo Pierre Work Phone: [facility] Start: 08-13-2022 End: 08-13-[address] Erasmo Pierre Work Phone: [facility] Work Phone: Start: 08-13-2022 End: 08-13-[address] [facility] Start: 08-06-2022 Non-patient / Non-visit Dr. Erasmo Pierre Work Phone: [facility] Start: 07-30-2022 End: 07-30-[address] Erasmo Pierre Work Phone: [facility] Start: 07-27-[address] Erasmo Pierre Work Phone: [facility]-Pre-Admission Testing Start: 07-23-2022 Non-patient / Non-visit Dr. Erasmo Pierre Work Phone: [facility] Start: 07-16-2022 Non-patient / Non-visit Dr. Erasmo Pierre Work Phone: [facility] Start: 07-09-2022 Non-patient / Non-visit Dr. Erasmo Pierre Work Phone: [facility] Start: 06-25-2022 Non-patient / Non-visit Dr. Erasmo Pierre Work Phone: [facility] Start: 06-14-2022 End: 06-14-[address] Erasmo Pierre Work Phone: [facility] Work Phone: Start: 06-14-2022 End: 06-14-[address] Erasmo Pierre Work Phone: [facility]-Cardiovascular Services Start: 06-11-2022 Non-patient / Non-visit Dr. Erasmo Pierre Work Phone: [facility] Start: 06-09-2022 End: 06-09-[address] Erasmo Pierre Work Phone: [facility] Start: 05-21-2022 Non-patient / Non-visit Dr. Erasmo Pierre Work Phone: [facility] Start: 05-14-2022 Non-patient / Non-visit Dr. Erasmo Pierre Work Phone: [facility] Start: 05-07-2022 Non-patient / Non-visit Dr. Erasmo Pierre Work Phone: [facility] Start: 04-30-2022 Non-patient / Non-visit Dr. Erasmo Pierre Work Phone: [facility] Start: 04-21-2022 End: 04-21-[address] Erasmo Pierre Work Phone: [facility] Start: 04-16-2022 Non-patient / Non-visit Dr. Erasmo Pierre Work Phone: [facility] Start: 04-02-2022 Non-patient / Non-visit Dr. Erasmo Pierre Work Phone: [facility] Start: 03-19-2022 Non-patient / Non-visit Dr. Erasmo Pierre Work Phone: [facility] Start: 03-17-2022 End: 03-17-[address] Erasmo Pierre Work Phone: [facility] Work Phone: Start: 03-17-2022 End: 03-17-[address] Erasmo Pierre Work Phone: [facility] Start: 03-09-2022 End: 03-09-[address] Erasmo Pierre Work Phone: [facility] Work Phone: Start: 03-09-2022 End: 03-09-[address] Erasmo Pierre Work Phone: [facility] Start: 02-26-2022 Non-patient / Non-visit Dr. Erasmo Pierre Work Phone: [facility] Start: 02-23-2022 End: 02-23-[address] Erasmo Pierre Work Phone: [facility] Start: 02-22-2022 End: 02-22-[address] Erasmo Pierre Work Phone: [facility] Gastroenterology Start: 02-12-2022 Non-patient / Non-visit Dr. Erasmo Pierre Work Phone: [facility] Start: 01-21-2022 Non-patient / Non-visit Dr. Erasmo Pierre Work Phone: [facility] Start: 01-15-2022 Non-patient / Non-visit Dr. Erasmo Pierre Work Phone: [facility] Start: 01-14-2022 End: 01-14-2022 Emergency department patient visit Dr. Erasmo Pierre Work Phone: [facility]-Emergency Department Start: 01-13-2022 End: 01-13-[address] Erasmo Pierre Work Phone: [facility] Start: 01-01-2022 Non-patient / Non-visit Dr. Erasmo Pierre Work Phone: [facility] Start: 12-25-2021 Non-patient / Non-visit Dr. Erasmo Pierre Work Phone: [facility] Start: 12-18-2021 Non-patient / Non-visit Dr. Erasmo Pierre Work Phone: [facility] Start: 12-04-2021 Non-patient / Non-visit Dr. Erasmo Pierre Work Phone: [facility] Start: 12-02-2021 Non-patient / Non-visit Dr. Erasmo Pierre Work Phone: [facility] Start: 11-27-2021 Non-patient / Non-visit Dr. Erasmo Pierre Work Phone: [facility] Start: 11-23-2021 Non-patient / Non-visit Dr. Erasmo Pierre Work Phone: [facility] Start: 11-20-2021 End: 11-20-[address] Erasmo Pierre Work Phone: [facility] Start: 11-20-2021 Non-patient / Non-visit Dr. Erasmo Pierre Work Phone: [facility] Start: 11-06-2021 End: 11-06-[address] Erasmo Pierre Work Phone: [facility] Start: 11-06-2021 Non-patient / Non-visit Dr. Erasmo Pierre Work Phone: [facility] Start: 10-28-2021 Non-patient / Non-visit Dr. Erasmo Pierre Work Phone: [facility] Start: 10-26-2021 Non-patient / Non-visit Dr. Erasmo Pierre Work Phone: [facility] Start: 10-23-2021 Non-patient / Non-visit Dr. Erasmo Pierre Work Phone: [facility] Start: 10-09-2021 Non-patient / Non-visit Dr. Erasmo Pierre Work Phone: [facility] Start: 09-30-2021 End: 09-30-[address] Erasmo Pierre Work Phone: [facility] Start: 09-25-2021 Non-patient / Non-visit Dr. Erasmo Pierre Work Phone: [facility] Start: 09-11-2021 Non-patient / Non-visit Dr. Erasmo Pierre Work Phone: [facility] Start: 09-10-2021 End: 09-10-[address] Erasmo Pierre Work Phone: [facility]-Outpatient Bone Densitometry Start: 08-28-2021 Non-patient / Non-visit Dr. Erasmo Pierre Work Phone: [facility] Start: 08-26-2021 End: 08-26-[address] Erasmo Pierre Work Phone: [facility] Start: 08-19-2021 End: 08-19-[address] Erasmo Pierre Work Phone: [facility]-Cardiovascular Services Start: 08-14-2021 Non-patient / Non-visit Dr. Erasmo Pierre Work Phone: [facility] Start: 06-24-2021 Refill Evelyn amaro MD Work Phone: OB/Gynecology Comment on above: Refill Request Start: 06-04-2021 End: 06-04-[address] Erasmo Pierre Work Phone: [facility] Start: 05-07-2021 End: 05-07-2021 Emergency department patient visit Dr. Erasmo Pierre Work Phone: [facility]-Emergency Department Start: 05-05-2021 End: 05-05-[address] Erasmo Pierre Work Phone: [facility] Start: 07-21-2017 Ambulatory Ruslan Armstrong y:[facility] Procedures Date Procedure Procedure Detail Performing Clinician Start: 11-19-2024 IR CVC PICC PLACEMENT Jus Waddell DO Work Phone: Start: 11-19-2024 End: 11-19-2024 Basic metabolic panel calcium total Rosanne Waddell DO Work Phone: Start: 11-17-2024 End: 11-18-2024 Basic metabolic panel calcium total Jordana Aguayo DO Work Phone: Start: 11-16-2024 Basic metabolic pane l calcium total Jordana Aguayo DO Work Phone: Start: 11-15-2024 End: 11-15-2024 Bacteria identified in Blood by Culture Cortez Rodríguez MD Work Phone: Start: 11-15-2024 Comprehensive metabo lic panel Jovanny Tobar SNAPPER ON - [employer] DAT[employer]ASE ADMINISTRATOR Work Phone: Start: 11-15-2024 Manual Differential panel - Blood Jovanny Baptistesteve SNAPPER ON - [employer] DAT[employer] ADMINISTRATOR Work Phone: Start: 11-14-2024 Iaadiadoo not otherw ise specified Cortez Rodríguez MD Work Phone: Start: 11-14-2024 LEGIONELLA AND STREP TOCOCCUS URINE ANTIGEN, ORDERABLE Cortez Rodríguez MD Work Phone: Start: 11-14-2024 URINE HOLD CUP Cortez messer MD Work Phone: Start: 11-14-2024 Radiologic exam ches t single view Jovanny Tobar SNAPPER [employer] - [employer] DAT[employer]ASE ADMINISTRATOR Work Phone: Start: 11-14-2024 Blood gases any comb ination ph pco2 po2 co2 hco3 Jovanny Tobar SNAPPER [employer] - [employer] DAT[employer]ASE ADMINISTRATOR Work Phone: Start: 11-14-2024 Radiologic exam swal low function contrast study Jordana Aguayo DO Work Phone: Start: 11-14-2024 Echo tthrc r-t 2d w/ wom-mode compl spec&colr d Jovanny Baptistesteve SNAPPER ON - [employer] DAT[employer]ASE ADMINISTRATOR Work Phone: Start: 11-14-2024 Dup-scan xtr veins c omplete bilateral study Jovanny Baptistesteve SNAPPER ON - [employer] DAT[employer] ADMINISTRATOR Work Phone: Start: 11-14-2024 Comprehensive metabo lic panel Jovanny Baptistesteve SNAPPER ON - [employer] DAT[employer] ADMINISTRATOR Work Phone: Start: 11-14-2024 Manual Differential panel - Blood Jovanny Tobar SNAPPER [employer] - [employer] ADMINISTRATOR Work Phone: Start: 11-14-2024 Assay of lactate Marina Tobar SNAPPER ON - [employer] DAT[employer] ADMINISTRATOR Work Phone: Start: 11-13-2024 Assay of lactate Marina Tobar SNAPPER ON - [employer] DAT[employer]ASE ADMINISTRATOR Work Phone: Start: 11-13-2024 End: 11-13-2024 Basic metabolic panel calcium total Jovanny Tobar SNAPPER ON - [employer] ADMINISTRATOR Work Phone: Start: 11-13-2024 Assay of lactate Kati Acosta MD Work Phone: Start: 11-13-2024 Assay of troponin quantitative Socorro Wu DO Work Phone: Start: 11-13-2024 Ct abdomen & pelvis w/contrast material Socorro Wu DO Work Phone: Start: 11-13-2024 Ct angiography chest w/contrast/noncontrast Kati Acosta MD Work Phone: Start: 11-13-2024 Ct head/brain w/o co ntrast material Socorro Wu DO Work Phone: Start: 11-13-2024 Radiologic exam ches t single view Scoorro Wu DO Work Phone: Start: 11-13-2024 Culture bacterial quanttative colony count urine Socorro Wu DO Work Phone: Start: 11-13-2024 End: 11-13-2024 Bacteria identified in Blood by Culture Kati Acosta MD Work Phone: Start: 11-13-2024 Blood pathogens pane l by NUNO with non-probe detection in Positive blood culture Kati Acosta MD Work Phone: Start: 11-13-2024 HC SARSCOV2&INF A&B& RSV AMP PRB Kati Acosta MD Work Phone: Start: 09-09-2025 Respiratory pathogen s DNA and RNA panel - Nasopharynx by NUNO with non-probe detection Portia Cabrera MD Work Phone: Start: 11-13-2024 Blood gases any comb ination ph pco2 po2 co2 hco3 Socorro Wu DO Work Phone: Start: 11-13-2024 End: 11-13-2024 Comprehensive metabolic panel Socorro Wu DO Work Phone: Start: 11-13-2024 Manual differential performed [Presence] in Blood Socorro Wu DO Work Phone: Start: 11-13-2024 Ecg routine ecg w/le ast 12 lds trcg only w/o i&r Kati Acosta MD Work Phone: Start: 11-09-2024 Plain x-ray of elbow Dr Carolann Pierre MD Work Phone: Start: 11-09-2024 CT cervical spine wi thout contrast Dr. Erasmo Pierre MD Work Phone: Start: 11-09-2024 CT of head without contrast Dr. Erasmo Pierre MD Work Phone: Start: 10-28-2024 Assay of troponin quantitative Carlos Dsouza MD Work Phone: Start: 10-28-2024 Basic metabolic pane l calcium total Carlos Dsouza MD Work Phone: Start: 10-28-2024 SARS-COV-2, FLU A/B, AND RSV COMBO Carlos Dsouza MD Work Phone: Start: 10-28-2024 Radiologic exam ches t single view Carlos Dsouza MD Work Phone: Start: 10-28-2024 Ecg routine ecg w/le ast 12 lds trcg only w/o i&r Carlos Dsouza MD Work Phone: Start: 02-16-2024 CT of abdominal aort a with contrast Dr. Erasmo Pierre MD Work Phone: Start: 05-27-[address] Eramso funez Work Phone: Start: 05-25-[address] Erasmo funez Work Phone: Start: 05-17-2023 Plain chest X-ray Dr. Jus Pierre Work Phone: Start: 02-01-2023 Plain chest X-ray Dr. Jus Pierre Work Phone: Start: 12-30-2022 Measurement of occul t blood in stool specimen using immunoassay Dr. Erasmo Pierre Work Phone: Start: 12-30-2022 Computed tomography of abdomen and pelvis with contrast Dr. Erasmo Pierre Work Phone: Start: 12-28-2022 Plain chest X-ray Dr. Jus Pierre Work Phone: Start: 12-02-2022 Plain chest X-ray Dr. Jus Pierre Work Phone: Start: 03-17-[address] Erasmo funez Work Phone: Start: 01-14-2022 Computed tomography of abdomen and pelvis with contrast Dr. Erasmo Pierre Work Phone: Start: 09-10-2021 Dual energy X-ray absorptiometry Dr. Erasmo Pierre Work Phone: Start: 09-10-2021 End: 09-10-[address] Erasmo Pierre Work Phone: Start: 08-26-2021 Radiologic examinati on of knee Dr. Erasmo Pierre Work Phone: Start: 08-26-2021 X-ray of lumbar spin e, two or three views Dr. Erasmo Pierre Work Phone: Start: 05-07-2021 CT of head without contrast Dr. Erasmo Pierre Work Phone: Start: 05-07-2021 Plain chest X-ray Dr. Jus Pierre Work Phone: Start: 06-05-2012 Mammography Evelyn talbot MD Work Phone: Carotid endarterectomy REFUGIO GARCIA MD Comment on above: left Cholecystectomy REFUGIO GARCIA MD Coronary artery bypa ss grafts x 3 REFUGIO GARCIA MD Hysterectomy REFUGIO GARCIA MD Measurement of occul t blood in stool specimen using immunoassay Dr. Erasmo Pierre Work Phone: Measurement of occul t blood in stool specimen using immunoassay Dr. Erasmo Pierre Work Phone: Ovarian structure (b terri structure) REFUGIO GARCIA MD Comment on above: removal bilateral Plan of Treatment Date Care Activity Detail Author Start: 12-10-2024 End: 12-10-2024 ambulatory [facility] Start: 11-09-2024 [facility] Start: 11-05-2024 COVID-19 Vaccine ( season) COVID-19 Vaccine () [facility] Start: 11-05-2024 Influenza vaccination Influenza Vacc ine (#1) [facility] Start: 11-05-2024 [facility] Start: 08-30-2024 Evaluation of diagno stic study results [facility] Start: 07-13-2024 End: 07-13-2025 Nerve conduction test with EMG Nerve conduction test with EMG Neurology Routine Carpal tunnel syndrome, bilateral upper limbs Expected: 07/13/2024 (Approximate), Expires: 07/13/2025 [facility] Work Phone: Comment on above: Expected: 07/13/2024 (Approximate), Expires: 07/13/2025 Start: 03-07-2024 Medicare Advantage Annual Wellness Visit Medicare Advantage Annual Wellness Visit [facility] Start: 03-07-2024 [facility] Start: 11-06-2023 COVID-19 Vaccine () COVID-19 Vaccine () [facility] Start: 05-23-2023 Patient discharge [facility] Start: 05-17-2023 Blood chemistry [facility] Start: 05-17-2023 [facility] Start: 05-17-2023 Plain chest X-ray Chest PA and Later al [facility] Start: 05-17-2023 XR Chest PA and Lateral [facility] Start: 12-30-2022 [facility] Start: 12-13-2022 [facility] Start: 12-02-2022 [facility] Start: 10-09-2022 Urine microalbumin profile DTAP,TDAP,TD (2 - Td or Tdap) [facility] Start: 09-10-2022 Screening for malign ant neoplasm of breast [facility] Start: 11-05-2021 Influenza vaccination INFLUENZ A (Season Ended) [facility] Start: 05-07-2021 [facility] Work Phone: Start: 03-07-2021 ADVANCE DIRECTIVE DISCUSSION ADVANCE DIRECTIVE DISCUSSION [facility] Start: 2015 BONE DENSITY BONE DENSITY [facility] Start: 2015 PNEUMOVAX AGE 65 AND OVER WITH 5YR LOOKBACK (#1) PNEUMOVAX AGE 65 AND OVER WITH 5YR LOOKBACK (#1) [facility] Start: 06-05-2013 Mammography MAMMOGRAM [facility] Start: 2010 RSV Immunization for Adults (1 - Risk 60-74 years 1-dose series) RSV Immunization for Adults (1 - Risk 60-74 years 1-dose series) [facility] Start: 2010 [facility] Start: 02-20-2000 SHINGRIX VACCINE (1 of 2) SHINGRIX VACCINE (1 of 2) [facility] Start: 02-20-2000 Zoster Vaccines (1 of 2) Zoste r Vaccines (1 of 2) [facility] Start: 02-20-2000 [facility] Start: 1995 COLOGUARD (FIT-DNA) COLOGUARD (FIT-D NA) [facility] Start: 1995 Colonoscopy COLONOSCOPY [facility] Start: 1995 COLORECTAL CANCER SCREENING COLORECTAL CANCER SCREENING [facility] Start: [address] COLONOGRAPHY [place] Start: 1995 DIABETES SCREEN DIABETES SCREEN [place] Start: 1995 FECAL OCCULT BLOOD FECAL OCCULT BLOO D [facility] Start: 1995 LIPID SCREEN LIPID SCREEN [facility] Start: 1995 SIGMOIDOSCOPY SIGMOIDOSCOPY [facility] Start: 1990 Screening for malign ant neoplasm of breast Mammogram [facility] Start: 1969 DTaP/Tdap/Td Vaccine s (1 - Tdap) DTaP/Tdap/Td Vaccines (1 - Tdap) [facility] Start: 1969 [facility] Start: 02-20-1968 ANNUAL PCP TEAM 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 DISEASE VISIT ANNUAL PCP TEAM CHRONIC DISEASE VISIT [facility] Start: 02-20-1968 BP CONTROLLED (<130/80) BP CONTROLLE D (<130/80) [facility] Start: 02-20-1968 Diabetes mellitus screening [facility] Start: 02-20-1968 Hepatitis B surface antibody level LDL CHOLESTEROL [facility] Start: 02-20-1968 HEPATITIS C SCREENING HEPATITIS C SC [facility] Start: 02-20-1968 Hepatitis C screening [facility] Start: 1962 Adult depression screening assessment DEPRESSION SCREENING [facility] Start: 1962 Depression Monitoring Depression Mon [facility] Start: 1962 [facility] Start: 1955 COVID-19 VACCINE (1) COVID-19 VACCIN E (1) [facility] Start: 1950 Lipid panel [facility] Start: 1950 Screening for malign ant neoplasm of colon [facility] Start: 1950 Screening for osteoporosis [facility] Anion gap measurement [facility] Bacteria identified in Blood by Culture [facility] Work Phone: Basic metabolic 2008 panel with ionized calcium - Serum or Plasma [facility] Bilirubin measuremen t, urine [facility] BUN/Creatinine ratio [facility] C reactive protein [Mass/volume] in Serum or Plasma [facility] Calcium [Mass/volume ] in Serum or Plasma [facility] Carbon dioxide, tota l [Moles/volume] in Serum or Plasma [facility] CBC W Auto Different ial panel - Blood [facility] CBC W Auto Different ial panel - Blood [facility] Celiac disease screen [facility] Chloride [Moles/volu me] in Serum or Plasma [facility] Creatinine [Moles/volume] in Serum or Plasma [facility] Erythrocyte sedimentation rate [facility] Glucose [Mass/volume ] in Serum or Plasma [facility] Hemoglobin [Presence ] in Urine [facility] Immunoglobulin measurement [facility] INR in Blood by Coagulation assay [facility] Lactate dehydrogenas e measurement [facility] Lactoferrin [Presenc e] in Stool by Immunoassay [facility] Magnesium measurement [facility] Measurement of keton es in urine using dipstick [facility] Measurement of renal function [facility] Measurement of respiratory function [facility] Microscopic urinalysis [facility] End: 08-13-2024 Nerve conduction test with [facility] [employer] Work Phone: Comment on above: Once for 1 Occurrenc es starting 08/13/2024 until 08/13/2024 NM Heart Views W str ess and W radionuclide IV [facility] Work Phone: Organism count, microscopic method [facility] Patient Education [facility] Work Phone: Patient referral [facility] Work Phone: pH of Urine [facility] Potassium [Moles/vol ume] in Serum or Plasma [facility] Protein measurement [facility] Prothrombin time [facility] Replacement of electronic heart device, pulse generator [facility] Serum immunofixation [facility] Sodium [Moles/volume ] in Serum or Plasma [facility] Specific gravity of Urine [facility] Urea nitrogen [Mass/volume] in Serum or Plasma [facility] Urinalysis complete panel - Urine [facility] Urine dipstick for glucose [facility] Urine dipstick for leukocyte esterase [facility] Urine dipstick for nitrite [facility] Urine dipstick for protein [facility] Urine examination [facility] Urine microscopy: epithelial cells [facility] Urine microscopy: re d cells [facility] Urobilinogen [Presen ce] in Urine [facility] US Heart [facility] Work Phone: White blood cell count [facility] Immunizations Immunization Date Immunization Notes Care Provider Hugh rosario 12-10-2023 influenza, high dose seasonal, preservative-free Dr. Erasmo Pierre MD Work Phone: [facility] 12-10-2023 influenza virus vaccine, unspecified formulation Tom Gracia PA-C Work Phone: [facility] 11-05-[address] Erasmo Pierre Work Phone: [facility] 10-09-2012 tetanus toxoid, redu fanta diphtheria toxoid, and acellular pertussis vaccine, adsorbed Evelyn Wood MD Work Phone: [facility] Work Phone: 11-06-[address] Hira Pierre Work Phone: [facility] Work Phone: 11-06-2011 pneumococcal vaccine , unspecified formulation Dr. Erasom Pierre Work Phone: [facility] Payers Date Payer Category Payer Private Health Insurance [id number] 2024 Medicare HMO [id number] 2023 Self-pay [id number] 2023 Medicaid [id number] 2023 Unknown [id number] 2019 Medicaid [facility] MEDICAID MYC ARE [facility] MEDICAID [id number] 2019-Present [phone] [address] [place] [id number] Medicaid [id number] 2008 Medicare [id number] 2008 Medicare [id number] 1950 Unknown [id number] 27 Unknown [employer] OTHER [id number] Unknown [id number] 62 Unknown [id number] 62 Unknown [id number] 62 Unknown [id number] 62 Unknown [id number] 62 Unknown [id number] 62 Unknown [id number] 62 Unknown [id number] 62 Unknown [id number] 62 Unknown [id number] 62 Unknown [id number] 62 Unknown [id number] 62 Unknown [id number] 62 Social History Date Type Detail Facility Start: 01-16-2019 End: 11-15-2024 Tobacco smoking status NHIS Ex-smoker [facility] Comment on above: stopped in 2012 Start: 01-16-2019 End: 11-18-2024 Cigarettes smoked current (pack per day) - Reported 0.5 [facility] Start: 01-16-2019 End: 11-15-2024 Tobacco use and exposure Smokeless tobacco non-user [facility] Start: 01-16-2019 Alcohol intake Current non-dr 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 alcohol (finding) [facility] Start: 01-16-2019 History SDOH Financial 2 [facility] Start: 01-16-2019 History SDOH Food Worry 1 [facility] Start: 1950 Sex Assigned At Not on file [facility] Start: 05-07-2021 End: 05-23-2023 Tobacco smoking status MDIS Unknown if ever smoked [facility] Start: 08-07-2017 None [facility] Start: 10-13-2020 Alone [facility] Start: 10-13-2020 Cigarettes [facility] Start: 1950 Sex Assigned At Female [facility] Start: 10-05-2021 End: 06-07-2024 Sex Female (finding) [facility] Sexual Orientation Yuly [employer] Start: 10-28-2024 End: 11-18-2024 Gender identity Not on file [facility] End: 03-07-2013 History of tobacco use Current smoker [facility] End: 03-07-2013 History of tobacco use Cigarette Smoker [facility] Start: 10-28-2024 End: 11-18-2024 Alcoholic beverage intake Ex-drinker (finding) [facility] How often to you hav e a drink containing alcohol? Never [facility] How many standard drinks containing alcohol do you have on a typical day? Patient does not drink [facility] Start: 11-15-2024 Tobacco Comment Patient states she quit smoking in 2013, no history of vaping or smokeless tobacco. Smoking cessation counseling not indicated. [facility] NEGATED: Highlighted row [facility] Medical Equipment Procedure Code Equipment Code Equipment Origin al Text Equipment Identifier Dates ([id number]) Dual-chamber implantable pacemaker, rate-responsive ([id number] [facility] Start: 05-23-2023 Functional Status Date Assessment Result Facility 10-28-2024 Total score [AUDIT-C] 0 10/29/19 10:07 AM EDT Dary Quintanilla, RN [facility] 06-08-2024 Functional Status Room check performed [facility] 06-08-2024 Functional Status [facility] 06-08-2024 Functional Status Identification band [facility] 06-08-2024 Functional Status Maintained [facility] Mental Status Date Assessment Result Facility 06-08-2024 Mental Status Orientation Oriented x 4 [facility] 06-08-2024 Mental Status [facility] 12-13-2022 Cognitive function Level Of Cons ciousness Awake;Alert;Appropriate [facility] Work Phone: 12-02-2022 Cognitive function Level Of Cons ciousness Awake;Alert;Appropriate;Follow s Commands [facility] Work Phone: 05-07-2021 Cognitive function Level Of Cons ciousness Awake;Alert;Appropriate;Follow s Commands [facility] Work Phone: Clinical Notes 06-24-2021 to 12-11-2024 Telephone Encounter - Evelyn Rodriguez - 12/11/2024 11:58 AM EDTTelephone Encounter - Evelyn Rodriguez - 12/11/2024 11:58 AM EDTTelephone Encounter - Evelyn Rodriguez - 12/10/2024 2:21 PM EDT Note Date & Type Note Facility 12-11-2024 Telephone encounter Note Sylvie called back and the patient does see Dr Pérez and will be following with him on 12-26-24 [facility] 12-11-2024 Miscellaneous Notes Sylvie called back and the patient does see Dr Pérez and will be following with him on 12-26-24 I called [facility]. HANDY for Milka to call back to ask if the patient is following with Dr Pérez. Per Kamla, I called and lmom asking Sylvie to call back regarding upcoming scheduled appointment. [phone]. Kamla asked me to see if she is still following with Dr Pérez as mentioned in the consult notes. If she is, we will ask her to schedule with his office for follow up documented in this encounter [facility] 12-11-2024 Telephone encounter Note I called [facility]. HANDY for Milka to call back to ask if the patient is following with Dr Pérez. [facility] 12-10-2024 Telephone encounter Note Per Kamla, I called and lmom asking Sylvie to call back regarding upcoming scheduled appointment. [phone]. Kamla asked me to see if she is still following with Dr Pérez as mentioned in the consult notes. If she is, we will ask her to schedule with his office for follow up [facility] 11-19-2024 Miscellaneous Notes Images from the original note were not included. [facility] Palliative Care Transitions of Care Note Divya Joseph : 1950 ADMIT DATE: 11/13/2024 DISCHARGE DATE: 11/19/24 PRIMARY CARE PHYSICIAN: Rosanne Waddell DO CODE STATUS: Full Code DISCHARGE DIAGNOSES: Principal Problem: Transient alteration of awareness HOSPITAL COURSE: Divya Joseph is a 74 y.o. female with PMH CAD s/p CABG, HTN, A-fib, COPD, anemia, PVD, dysphagia, debility. She presented to ED from SNF with altered mentation. Pt also had been having fevers and reported abdominal pain as well as R rib pain, increased urgency & difficulty urinating. Pt also experienced LE swelling, chills, fatigue, shortness of breath. CTA chest showing RUL segmental PE. Troponin elevated. Initially admitted to [facility]. However, required transfer to ICU due to hypotension, requiring pressors. Palliative care consulted for goals of care. Goals of Care -Full Code -Divya Joseph retains capacity for medical decision-making -HCPOA: Brother Rey Fagan [phone], 1st alternate agent sister in law Jolene [phone] -goals of care: To get better and return to facility, continue current medical management -MACHINE JOINER CEMENTER: Patient residing at [facility], has lived there for about 1 year Sepsis Bacteremia UTI - ID consulted - on termite treater IV ABX - Blood culture 11/13 + E. Coli - Urine culture +E. coli - UA + moderate bacteria, WBC >100, leukocytes 500 Chronic Pain -PRN tylenol - Robaxin PRN for muscle spasms Acute encephalopathy, improved - Geriatrics consulted -CT head--> No CT evidence of an acute intracranial abnormality. -A&Ox3 during exam Debility - Resides at [facility] -PT/OT as able -typically uses wheelchair - had a fall about 1 week ago CAD s/p CABG HTN Afib Elevated Troponin - Cardiology consulted -ECHO--> Normal left ventricular systolic function. 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 - On easy to chew diet Palliative Care Encounter -Code Status: Full Code SIGNIFICANT DIAGNOSTIC STUDIES: N/a CODE STATUS DISCUSSIONS: Full Code SYMPTOM MANAGEMENT MEDICATIONS: N/a RECOMMENDED NEXT STEPS: Dc to [facility] FOLLOW UP TESTING, PENDING RESULTS OR REFERRALS AT TRANSITIONAL CARE VISIT: No PENDING STUDIES: No DISPOSITION: Skilled Rehab Facility FACILITY/HOME CARE AGENCY NAME: [facility] Follow up with Nursing facility Reason for Outpatient/Home/ECF Palliative Care follow-up: N/A Opiate Prescribing N/A SIGNED: LEONCIO Nielson CNP 11/19/2024, 9:05 PM Call placed to [facility] to notify him of patients discharge. Answered all questions/concerns. Transport set for 6 PM to [facility]. Confirmed pickup time of 6:45 pm by transport [employer] at phone number [phone]. Location of facility drop off is [facility]. Facility notified via [facility], TCC notified on secure chat. MAR, Med Rec and Discharge Paperwork sent to [facility] via [facility] per TCC request. Faxed/emailed OPAT to [facility] at [email or web address]. [facility] to set up transport. Care Management Progress Note Short Medical why still here: PICC placement pending. Final antibiotic recs pending. Planned Discharge Disposition: Senior Care/Residential Care Barriers/Today we still Wait: Clinical stability, Public Works Director recommendations (comment), Administering IV medications Length of Stay (Days): 4 GMLOS: No GMLOS Documented CM tasked to follow patient through the weekend to assist with discharge needs. Chart reviewed. Expected Discharge, Rapid Rounding, and Discharge Milestones / Delays updated as appropriate. PICC remains pending. Unlikely to DC this weekend without it as plan is for 4 weeks of IV antibiotics. From [facility]. Care Management Progress Note Short Medical why still here: Patient remains on 4S today for septic shock/UTI. Complaints of AMS, fever, and abdominal pain. CT A/P w/sm BL pleural effusions, mild right hydroureter. ID, Cardiology, Geriatrics, Pulmonology, and WASHHOUSE WORKER consulted and seen. Ecoli bacteremia, IV ATBX coverage continued. ID noted 4 weeks of CTX/PICC? Cardiology with TTE completed on 11/14, preserved EF. Tele, warfarin. BC NGTD/x24 hours. WASHHOUSE WORKER today, MBSS . VSS, continue on 2L O2 NC, to wean. Monitoring labs/lytes. Therapy recommending SNF. Planned Discharge Disposition: Senior Care/Residential Care, [facility] LT, bed hold. Updated facility on clinicals via [facility] today. Plan to return when medically cleared. Barriers/Today we still Wait: Clinical stability, Public Works Director recommendations (comment), Administering IV medications Length of Stay (Days): 3 GMLOS: No GMLOS Documented ICU Transfer Checklist Transfer Med Reconciliation (resume home meds if able, convert to PO if able) Complete Antibiotics (name, indication, duration, convert to PO if able) Yes, addressed in today's progress note Steroid (indication, duration, convert to PO if able) None Anticipated Fenton Medications (ICU initiated) or Dose Changes and Indication No Permanently Discontinued Home Medications and Reason for medication contraindication No Rojo Catheter (please remove if able. Note: place DC order) No Central Line (please remove if able. Note: place DC order) No Transfer Discussed with: Dr Littlejohn If additional questions for ICU team within 24 hours of ICU transfer, page #[phone] for clarifications. Care Management Progress Note Short Medical why still here: UTI, bacteremia. On IV antibiotics. ID following. Oxygen at 2l?NC> decadron. Pulmonology and cardiology following. 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 Barriers/Today we still Wait: Administering IV medications, Clinical stability, Symptomatic control Length of Stay (Days): 2 GMLOS: No GMLOS Documented biodiesel product development manager to follow for discharge planning. Return referral placed to [facility] via [facility] per TCC request. Await review and response regarding ability to accept. TCC notified. Care Managment Initial Assessment Date: 11/14/2024 Patient Name: Divya Joseph : 1950 Patient Information Source of Information: Patient Cognition/Language: WFL - Within Functional Limits Permission given to speak with patient clearance representative/caregiver as indicated: Yes Confirmation of Payer with patient/family: Yes Payer Name: [employer] MEDICARE/UHC [employer] MEDICARE [place]: No Confirmation of Primary Care Physician: Confirmed PCP Name: Rosanne Waddell DO Seen in last 2 years?: Yes Primary Caregiver: If assistance needed, confirmed caregiver ready, willing and able to care for patient at discharge: Confirmed with: Living Arrangements Current Residence: Number of Floors Number of Entry Steps: Bed/Bath Levels: Facility: Nursing Facility Skilled Facility Name: [facility] Plan to Return: Yes Lives with: Alone Support Systems: Spouse/significant other Activities of Daily Living Ambulation: Assistance (WHEELCHAIR BOUND) Bathing/Dressing: Assistance Elimination/Continence/Toileting : Assistance Feeding: Assistance Who Assists with Activities of Daily Living: Instrumental Activities of Daily Living Prescription Coverage: Pharmacy Used: Medication Management: Transportation/Shopping: Transportation Mode: Needs Assistance with Transportation at Discharge: Yes Meal Preparation: Assistance Provider Meal Prep Assistance Provider Name: FACILITY Laundry/Cleaning: Assistance Provider Laundry/Cleaning Assistance Provider Name: FACILITY Finances/Bill Paying: Assistance Provider Finances/Bill Payer Assistance Provider Name: SPOUSE Communication: Independent Types of Care Services/Equipment Utilized Care Services: Dialysis Type: Durable Medical Equipment: Wheelchair (standard or power) Patient's Goal/Discharge Plan Patient expects to be discharged to: RETURN TO [facility] Discharge Planning Actions: Continue to follow, Long Term Facility referral indicated Patient's Choice Rights and [employer] and Collaborative Relationships Disclosed as Indicated for Post-Acute Care: NA Interdisciplinary Team Engagement: Social Work Referral for: Additional Information: Spoke with patient and her at their bedside. Introduced self and role. Discussed discharge planning. Patient has health insurance and prescription coverage. Patient states live at [facility]. Plan is to return. Tasked WORKSITE WELLNESS PRACTITIONER to send referral [facility]. Will await response. sustainable products marketing manager will continue to follow for any discharge planning needs. Care Management Progress Note Short Medical why still here: in ICU for UTI/ sepsis. On IV antibiotics. Levophed. Oxygen at 3L/NC. Consults with cardiology, geriatrics, palliative care, pulmonology, and ID. Planned Discharge Disposition: Long Term Facility (from [facility]) Barriers/Today we still Wait: Administering IV medications, Clinical stability, Symptomatic control, Public Works Director recommendations (comment) Length of Stay (Days): 1 GMLOS: No GMLOS Documented biodiesel product development manager to follow for discharge planning. Images from the original note were not included. PE Response Team Triage Brief HPI: This is a 74 y.o F with a PMH of CAD s/p CABG, HTN, A-fib, SSS s/p PPM, PVD, COPD, Anemia, Dysphagia, Debility, who presents to the ED today from SNF with altered mental status. Patient is not sure why she is at the hospital, states I just woke up here. Per notes patient reportedly febrile, abd pain and altered mental status. Patient reports that she has had lower abd pain, along with right rib pain, increased urgency and difficulty urinating. Patient also endorses LE swelling, chills, fatigue and shortness of breath, n/v. Patient was hypertensive in the ED. WBC 12.7, 13% bands, LA 2.6, UA grossly positive, CT A/P did show right side mild hydroureter but no obstructing stone. CTA chest also showed RUL segmetal PE. Troponin elevated. No RV strain. CX's obtained, given 2L IVF, started on CTX and admitted to the hospitalist service. This evening patient with rising lactate up to 4.0 with decreasing BP (SBP 100) Hemodynamic instability: Yes Notable vital signs: SBP <100 RV Strain: No Positive troponin: Yes (hs-cTn ref. range: Males>35, Females>14) Troponin HS Serial Baseline Date Value Ref Range Status 11/13/2024 78 (H) <=14 ng/L Final Comment: In individuals presenting with symptoms > 2h, a baseline troponin <= 5 ng/L suggests acute cardiac injury is unlikely and further serial testing is generally not indicated. 2h Troponin HS (Serial 2nd Troponin) Date Value Ref Range Status 11/13/2024 90 (H) <=14 ng/L Final Comment: Rising or falling troponin delta between 2 - 15 ng/L as compared to baseline value requires a 3rd serial troponin 4h Troponin HS (Serial 3rd Troponin) Date Value Ref Range Status 11/13/2024 152 (H) <=14 ng/L Final Comment: 4h troponin (3rd troponin) samples collected between 1h 40 min and 2h and 20 min of the 2h troponin collection time can be utilized to interpret delta troponins as per [employer] algorithms. Samples collected outside this timeframe need to be interpreted clinically. Rising or falling troponin delta greater than 15 ng/L as compared to 2h troponin value is significant for acute cardiac injury. 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 Contraindication to Anticoagulation (AC) Contraindication to Thrombolytics No apparent contraindications noted No apparent contraindications noted [] Active, clinically significant bleeding [] Severe uncontrolled hypertension [] Anticipated or recent neuraxial anesthesia [] Invasive procedure or OB delivery Consult Neurocritical Care on-call attending before initiating anticoagulation if: [] Ischemic stroke or intracranial hemorrhage within 30 days *If ischemic stroke or ICH within 30 days, will need baseline CTH prior to starting anticoagulation* [] Structural cerebrovascular lesion or intracranial neoplasm Relative contraindications for anticoagulation -- if any of the below, consult on-call Trauma attending prior to initiating anticoagulation: [] Traumatic brain injury, including head trauma with facial fractures and negative head CT [] Spinal fractures and/or spinal cord injury [] Solid organ injuries [] Trauma-induced coagulopathy [] Geriatric trauma [] Hemothorax [] Cardiac injuries [] Pelvic fracture(s) [] Multiple extremity fractures [] Active bleeding (excluding menses) [] Severe uncontrolled hypertension [] Significant head injury or facial trauma within the last 3 months [] Recent intracranial or spinal surgery [] Possible aortic dissection Consult Neurocritical Care on-call attending before initiating thrombolysis if: [] Ischemic stroke within 3 months [] Recent intracranial hemorrhage [] Structural cerebrovascular lesion or intracranial neoplasm considerations: [] Patient is , tenecteplase is contraindicated Assessment/Recommendation: Low-Intermediate Risk PE Anticoagulation Recommendations: Eliquis 10mg BID x 7 days followed by 5mg BID, patient already on Warfarin Care Plan Recommendations: LOW-INTERMEDIATE RISK PE: Systemic anticoagulation with specialist consult Disposition Recommendations: Hospitalization for further management with Pulmonary consult PE protocol orders placed by PERT [x] Serial hs-cTn q2h x 2 [x] STAT BNP and again in AM [x] Formal 2D Echo [x] Lower extremity duplex -- symptomatic DVT only [] Interventional Cardiology consult [x] Pulmonary consult [] Consider Pulmonary consult for unrelated to PE (I.e., lung nodule, acute respiratory failure, etc) [] PE Clinic Referral -- follow-up appointment on AVS This consultation was completed remotely. The above information is based on the HPI and information provided by the primary service. Recommendations for PE treatment reflect this information and final treatment decisions and disposition are deferred to the clinical judgment of the primary service. documented in this encounter [facility] 11-19-2024 History of Presen t illness Narrative Images from the original note were not included. OCCUPATIONAL THERAPY [facility] Treatment Note Name/MRN: Divya Joseph ([id number]) Date of : 1950 Age: 74 y.o. [facility]/B4458 A Visit #: 3 out of 7 Discharge Recommendation: Long Term Facility Prior Level of Function Prior Level of ADL Function: Required Assist Prior Level of Mobility: Required Assist; Device: Wheelchair - manual Prior Level of Transfers: Required Assist Assessment Pt is making good progress with OT for ADLS and transfers with pt overall at a CGA to min A level with good carryover during session. Pt does remain slightly limited from decrease strength and bal. Pt would benefit from ongoing skilled OT tx to max indep with ADLs and transfers. OT is still recommending SNF level therapy at discharge. Subjective Pt supine in bed upon arrival and agreeable to OT tx. Pain: Pt denies any current pain. Medical Precautions: No active isolations Proper PPE donned/doffed in accordance with facility standards. Fall Risk: [place] Fall Risk Score: 85 (High Risk) Precautions/Restrictions: N/A Family/Caregiver Present: none Objective ADLs LE Dressing: Contact Guard, Min Assist Pt training for LB ADLs while seated with intermittent standing with figure 4 tech for initiation of items with extended time to complete and techs to max indep and safety. Bed Mobility Supine to sit: Contact Guard Sit to supine: Contact Guard HOB Elevated Use of bed rail(s) Transfers/Mobility Sit to stand: Min Assist Stand to sit: Min Assist Bedside commode: Min Assist Standing balance: Contact Guard Functional mobility: Min Assist Pt training for transfers to FWW with cues for tech and safety with good carryover by pt. Pt completed BSC transfer with min cues for tech to max indep. Pt completed standing with FWW for ADLS and mob for short distance with min safety cues and marcia up to 2 min intervals. Device(s) used: Front wheeled walker Cognition - WFL Plan Continue acute OT per plan of care. Safety/Education Safety Safety Devices in place: All fall risk precautions in place, call light within reach, left in bed, gait belt, patient at risk for falls, nurse notified, and no alarms engaged upon entry Restraints: No Education Education Given To: patient Education Provided: Precautions, ADL Adaptive Strategies, Transfer Training, Fall Prevention Education, and Discharge Recommendations Education Method: Verbal and Demonstration Barriers to Learning: None Education Outcome: Verbalized Understanding, Demonstrated Understanding, and Continued Education Needed AM-PAC AM-PAC Inpatient Daily Activity Raw Score: 19 ADL Inpatient CMS G-Code Modifier: CK Goals Patient Stated Goal: get better Encounter Problems Encounter Problems (Active) Balance Patient will maintain dynamic standing balance for 5 minutes with CGA in order to demonstrate decreased risk of falling. (Progressing) Start: 11/15/24 Expected End: 11/22/24 Dressing Upper Extremities Patient will complete upper body dressing MOD I (Not Addressed) Start: 11/15/24 Expected End: 11/22/24 Dressings Lower Extremities Patient will dress lower body MOD I (Progressing) Start: 11/15/24 Expected End: 11/22/24 Toileting Patient will complete toileting tasks at standard toilet with CGA. (Not Addressed) Start: 11/15/24 Expected End: 11/22/24 Transfers Patient will complete functional transfer with rolling walker with CGA in order to prepare for ambulation. (Progressing) Start: 11/15/24 Expected End: 11/22/24 Therapy Time Individual Co-treatment Time In 1340 Time Out 1405 Minutes 25 Timed Code Treatment Minutes: 25 Minutes (1 ADL, 1 ACT) ALAN Up Cosigned by Sharonda Solis OT at 11/19/2024 3:22 PM EDT [facility] Inpatient Warfarin Consult HPI: Divya Joseph is a 74 y.o. 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 Medical History[1] Patient is on warfarin for Afib and has a goal INR 2.0 - 3.0. Warfarin is currently managed by [facility]. Pt's home dose of warfarin is 2.5mg daily per [place] at the facility. Pt's last INR in the clinic was 2.6 on 10/29. S/sx of bleeding= hgb 9.3. Noted bruises/bleeds easily on physical inspection with small amount of epistaxis 11/14. Interacting medications= ASA 81 mg Labs: Recent Labs 11/17/24 0453 11/18/24 0100 11/19/24 0332 HGB 8.9* 10.3* 9.3* HCT 30.4* 34.5* 32.0* PLT 191 213 234 Recent Labs 11/19/24 0332 INR 2.6* Date INR Dose 11/19 2.6 1.5mg 11/18 3.1 0.5 mg 11/17 3.4 0.5 mg 11/16 3.4 0.5mg 11/15 3.3 1 mg 11/14 2.3 2.5mg 11/13 2.3 4mg Assessment/Plan: 1. INR is therapeutic today. Trending down, will give warfarin 1.5mg today. 2. Monitor for s/s of bleeding and drug interactions. Will adjust dose accordingly. 3. Warfarin is managed by [facility] outpatient. [facility] will manage inpatient and sign off at discharge. Luly Hanley [facility] Consult Service is available daily [phone] via [employer] Secure Chat. [1] Past Medical History: Diagnosis Date Altered mental status, unspecified Ataxia Atherosclerotic heart disease Bradycardia, unspecified Cognitive communication deficit COPD (chronic obstructive pulmonary disease) (HCC) i was told i had COPD, then I was told i wasn't, i don't know for sure Difficulty walking Dysphagia, oropharyngeal phase Dyspnea Essential (primary) hypertension Gastro-esophageal reflux disease without esophagitis Muscle weakness (generalized) Need for assistance with personal care Other chronic pain Pain in left shoulder Paroxysmal atrial fibrillation (HCC) Peripheral vascular disease, unspecified (HCC) Presence of cardiac pacemaker Repeated falls Sick sinus syndrome (CMS/HCC) (HCC) Unsteadiness on feet Weakness [facility] Geriatric Medicine Inpatient Consult Service Admission Date: 11/13/2024 Assessment Principal Problem: Transient alteration of awareness Plan Debility --contributing factors include COPD, chronic pain, medications --lives at [facility]. Propels self in w/c at baseline. --History of falls hitting head last week. CT head on 11/13/24-no acute abnormality. --Continue PT/OT while in patient. Therapy recommending SNF . Patient agreeable. --Recently started on Methocarbamol at her facility for back pain-monitor for cognition closely/side effects. Consider low dose Tizanidine as an alternative. 11/19: decline in mobility. Plan for SNF. Acute Metabolic Encephalopathy --Etiology likely acute illness (sepsis, respiratory failure) --Encourage PO intake, time up in chair, family visits, and sleep hygiene --If agitated, assess for and consider treating for pain --QTc= 473 ms on 11/13/24 --No antipsychotic unless patient is danger to self/others/treatment --Continue PRN melatonin at HS - given 11/17 --Monitor for constipation/urinary retention - last BM 11/10 per patient --Possible medication contributions: none -PRN Robaxin-used last 11/16 --Brother reported no significant baseline memory concerns -- B12 WNL 338 on 11/14/24 and TSH WNL 0.69 on 11/14/2411/19: Resolved. Continue to monitor given risk for delirium. Dysphagia --ST following - recommend easy to chew solids and thin liquids, meds as tolerated --MBSS no laryngeal penetration or airway aspiration 11/19: stable. Continue plan. IBS --takes Dicyclomine 20mg TID at facility --Recommend decreasing/stopping due to risk of anticholinergic side effects. Not currently ordered. 11/19: No abdominal complaints. Chronic constipation --patient reports normal BM pattern every 10 days. --Continue Miralax as needed - refusing --no BM documented since admission, patient reports last BM 11/10 11/19: Educated on use of bowel regimen - she declines due to concern for diarrhea Neuropathy --takes Gabapentin 200mg TID at facility. Restarted here. 11/19: Continue Gabapentin 200mg TID. Tolerating. OAB --takes Oxybutynin at facility. --Recommend alternative with less anticholinergic side effects versus stopping and monitoring symptoms. --currently on Trospium 11/19: stable. OK to discharge to SNF from geriatric perspective once cleared by primary Follow-up: prn, please page with any questions/issues Subjective Chief Complaint: Chief Complaint Patient presents with Altered Mental Status From [facility]. With AMS. Pt c/o of not feeling well. Pt with abd pain. Axo x 3 pt with temp of 100.3 Geriatrics consulted for impaired cognition HPI- The patient is known to me. 74 y.o. year-old female with PMH of COPD, CAD s/p CABG, SSS s/p pacemaker, Dysphagia, HTN, GERD, Chronic pain, atrial fibrillation, repeated falls, PVD, anxiety, depression presented to the hospital from [facility] on 11/13/24 with complaints of mental status change and fever. Admitted with sepsis with acute hypoxic respiratory failure, possible UTI. CT chest showed possible right upper lobe PE. Exam limited by motion artifact. Pulmonology felt likely motion artifact and not PE. Has been on Warfarin. Found to have E.Coli bacteremia and UTI. ID following. Cardiology following- likely type II NSTEMI in setting of sepsis and UTI. Interval History: Remains on general medical/surgical floor . PICC placed today. Patient reports she is feeling better. States she was confused on the day of the week and thought it was Tuesday. She is eating ok, needs gluten free diet. Sleeps ok. Has neuropathy in feet. Nursing reports no concerns. Seen by PT 11/17. Recommending short term SNF for rehab. Review of Systems Constitutional: Negative for fatigue and fever. Respiratory: Negative for shortness of breath. Cardiovascular: Negative for chest pain and leg swelling. Gastrointestinal: Negative for abdominal pain, constipation, diarrhea and nausea. Genitourinary: Negative for difficulty urinating. Musculoskeletal: Negative for arthralgias. Neurological: Positive for weakness and numbness (feet). Psychiatric/Behavioral: Negative for confusion, dysphoric mood and sleep disturbance. The patient is not nervous/anxious. Objective BP (!) 165/74 Pulse 60 Temp 36.5 C (97.7 F) (Temporal) Resp 17 Ht 5' 3 (1.6 m) Wt 153 lb (69.4 kg) SpO2 99% BMI 27.10 kg/m Intake/Output Summary (Last 24 hours) at 11/19/2024 0951 Last data filed at 11/19/2024 0605 Gross per 24 hour Intake 50 ml Output -- Net 50 ml Wt Readings from Last 3 Encounters: 11/17/24 153 lb (69.4 kg) Current Medications[1] Physical Exam Vitals reviewed. Constitutional: General: She is not in acute distress. HENT: Head: Normocephalic and atraumatic. Cardiovascular: Rate and Rhythm: Normal rate and regular rhythm. Pulmonary: Comments: Diminished breath sounds bilaterally Wearing nasal cannula Abdominal: General: Bowel sounds are normal. There is no distension. Palpations: Abdomen is soft. Tenderness: There is no abdominal tenderness. Musculoskeletal: Right lower leg: No edema. Left lower leg: No edema. Neurological: Mental Status: She is alert. Comments: Oriented to person, place, month, year. Off 3 days from date. Psychiatric: Attention and Perception: Attention normal. Mood and Affect: Mood normal. Behavior: Behavior is cooperative. Comments: Appropriate in conversation Labs and Imaging: Recent Results (from the past 24 hours) CBC auto differential Collection Time: 11/19/24 3:32 AM Result Value Ref Range Auto WBC 7.5 3.6 - 10.7 10*3/uL RBC 3.86 3.80 - 5.20 10*6/uL Hemoglobin 9.3 (L) 11.7 - 16.0 g/dL Hematocrit 32.0 (L) 35.0 - 47.0 % MCV 82.9 77.0 - 99.0 fL MCH 24.1 (L) 26.0 - 34.0 pg MCHC 29.1 (L) 30.5 - 36.0 % RDW 19.1 (H) 11.5 - 15.0 % Platelets 234 140 - 440 10*3/uL MPV 12.5 9.0 - 12.7 fL nRBC 0.0 0.0 - 2.0 /100 WBCs Neutrophils Relative 57.6 38.0 - 82.0 % Lymphocytes Relative 27.1 15.0 - 45.0 % Monocytes Relative 8.8 5.0 - 13.0 % Eosinophils Relative 6.0 0.0 - 6.0 % Basophils Relative 0.1 0.0 - 2.0 % Immature Grans % 0.4 0.0 - 2.0 % Neutrophils Absolute 4.3 1.8 - 7.5 10*3/uL Lymphocytes Absolute 2.0 1.0 - 4.3 10*3/uL Monocytes Absolute 0.7 0.0 - 0.9 10*3/uL Eosinophils Absolute 0.5 0.0 - 0.5 10*3/uL Basophils Absolute 0.0 0.0 - 0.2 10*3/uL Immature Grans Absolute 0.0 <0.1 10*3/uL Protime-INR Collection Time: 11/19/24 3:32 AM Result Value Ref Range PROTHROMBIN TIME 25.6 (H) 9.0 - 12.0 s INR 2.6 (H) 0.9 - 1.1 Magnesium Collection Time: 11/19/24 3:33 AM Result Value Ref Range MAGNESIUM 2.0 1.6 - 2.6 mg/dL Basic metabolic panel Collection Time: 11/19/24 3:33 AM Result Value Ref Range SODIUM 139 136 - 145 mmol/L POTASSIUM 3.7 3.5 - 5.1 mmol/L CHLORIDE 103 98 - 107 mmol/L CARBON DIOXIDE 26 23 - 31 mmol/L UREA NITROGEN 14 9 - 23 mg/dL CREATININE 0.65 0.57 - 1.11 mg/dL GLUCOSE 119 (H) 82 - 115 mg/dL CALCIUM 8.1 (L) 8.8 - 10.0 mg/dL ANION GAP 10 3 - 13 mmol/L eGFR >90.0 >60.0 mL/min/1.73m*2 Lab Results Component Value Date TSH 0.69 11/14/2024 Lab Results Component Value Date [id number] 11/14/2024 No results found for: VITD25 Reviewed: allergies, previous encounters, active problem lists, medications, and labs [1] Current Facility-Administered Medications: acetaminophen (Tylenol) tablet 650 mg, 650 mg, Oral, q6h PRN, Jordana Aguayo DO, 650 mg at 11/18/24 2242 albuterol (2.5 MG/3ML) 0.083% nebulizer solution 2.5 mg, 2.5 mg, Nebulization, q4h PRN, Jordana Aguayo DO aspirin chewable tablet 81 mg, 81 mg, Oral, Daily, Jordana Aguayo DO, 81 mg at 11/18/24907 cefTRIAXone (Rocephin) 2,000 mg in sodium chloride 0.9 % 50 mL IVPB Mini-Bag Plus, 2,000 mg, IntraVENous, q24h, Cortez Rodríguez MD, Stopped at 11/18/242307 cetirizine (ZyrTEC) tablet 5 mg, 5 mg, Oral, Daily, Jordana Aguayo DO, 5 mg at 11/18/24907 [START ON 11/20/2024] chlorhexidine (Hibiclens) 4 % solution, , Topical, Daily, Yudi Fisher PA-C folic acid (Folvite) tablet 1 mg, 1 mg, Oral, Daily, Jordana Aguayo DO, 1 mg at 11/18/24907 gabapentin (Neurontin) capsule 200 mg, 200 mg, Oral, TID, LEONCIO Joya CNP, 200 mg at 11/18/24 223 [Held by provider] isosorbide mononitrate ER (Imdur) 24 hr tablet 30 mg, 30 mg, Oral, Daily, Jordana Aguayo DO lisinopril tablet 5 mg, 5 mg, Oral, Daily, LEONCIO Torres CNP, 5 mg at 11/18/24907 melatonin tablet 3 mg, 3 mg, Oral, Nightly PRN, Jordana Aguayo DO, 3 mg at 11/17/242032 methocarbamol (Robaxin) tablet 500 mg, 500 mg, Oral, q8h PRN, Jordana Aguayo DO, 500 mg at 11/16/24 0518 metoprolol tartrate (Lopressor) tablet 12.5 mg, 12.5 mg, Oral, BID, Mireya Butler, SNAPPER [employer] - [employer] AD[employer]ISTRATOR, 12.5 mg at 11/18/242237 montelukast (Singulair) tablet 10 mg, 10 mg, Oral, Nightly, Jordana Aguayo DO, 10 mg at 11/18/242237 nitroglycerin (Nitrostat) SL tablet 0.4 mg, 0.4 mg, SubLINGual, q5 min PRN, Jordana Aguayo DO ondansetron ODT (Zofran-ODT) disintegrating tablet 4 mg, 4 mg, Oral, q8h PRN OR ondansetron (Zofran) injection 4 mg, 4 mg, IntraVENous, q6h PRN, Jordana Aguayo DO, 4 mg at 11/14/24 1827 pantoprazole (ProtoNix) EC tablet 40 mg, 40 mg, Oral, qAM AC, Jordana Aguayo DO, 40 mg at 11/19/24 0500 polyethylene glycol (PEG) 3350 (Miralax) packet 17 g, 17 g, Oral, Daily PRN, Jordana Aguayo DO pravastatin (Pravachol) tablet 80 mg, 80 mg, Oral, Nightly, Jordana Aguayo DO, 80 mg at 11/18/242237 sodium chloride 0.9 % infusion, 5-250 mL/hr, IntraVENous, PRN, Jordana Aguayo DO sodium chloride 0.9% (NS) flush 10 mL, 10 mL, IntraCATHeter, q12h, Yudi Sipos, PA-C sodium chloride 0.9% (NS) flush 10 mL, 10 mL, IntraCATHeter, PRN, Yudi Sipos, PA-C sodium chloride 0.9% (NS) flush 5-40 mL, 5-40 mL, IntraVENous, 2 times per day, Jordana Aguayo DO, 5 mL at 11/18/242 sodium chloride 0.9% (NS) flush 5-40 mL, 5-40 mL, IntraVENous, PRN, Jordana Aguayo DO trospium (Sanctura) tablet 20 mg, 20 mg, Oral, Daily, Jordana Aguayo DO, 20 mg at 11/18/24 0908 Images from the original note were not included. [facility] - Infectious Diseases Attending Progress Note Subjective: Follow up for septic shock, E coli bacteremia and E coli UTI with hydroureter. She was alert, sitting on bed, felt better, chills gone, suprapubic pain decreased, on 1 L O2, she appeared non-toxic. She was admitted on 11/13/24 from SNF with altered mental status, fever, abdominal pain, difficulty urination; on presentation in ED, her temp was 100.3 F, then, spiked to 100.9 F, was tachypneic (R 24); labs showed leukocytosis 12.7 k, pyuria with >100 wbc, lactic acidosis 2.9 that increased to 3.4, ceftriaxone was given; was initially admitted to [facility] for infectious work up and empiric antibiotics, she became hypotensive requiring vasopressor support and was transferred to ICU. She has h/o CAD, CABG, HTN, A-fib, SSS requiring PPM, PVD, COPD, Anemia, Dysphagia, Debility. She was examined; notes, labs, imaging were reviewed; treatment plan was discussed; clinical informations were documented in electronic record. Objective: Vitals: Patient Vitals for the past 24 hrs: BP Temp Temp src Pulse Resp SpO2 11/18/24 0832 (!) 170/71 36.3 C (97.3 F) Temporal 61 18 98 % 11/17/248 -- -- -- 64 -- -- 11/17/24 1922 128/65 (!) 21.8 C (71.3 F) Temporal 62 18 94 % Physical Exam Vitals and nursing note reviewed. Constitutional: General: She is awake. She is not in acute distress. Appearance: She is well-developed. She is not toxic-appearing or diaphoretic. HENT: Head: Normocephalic and atraumatic. Right Ear: External ear normal. Left Ear: External ear normal. Nose: Nose normal. Mouth/Throat: Mouth: Mucous membranes are moist. Pharynx: Oropharynx is clear. Comments: unremarkable Eyes: Extraocular Movements: Extraocular movements intact. Conjunctiva/sclera: Conjunctivae normal. Pupils: Pupils are equal, round, and reactive to light. Neck: Vascular: No JVD. Trachea: No tracheal deviation. Cardiovascular: Rate and Rhythm: Normal rate and irregular rhythm. Pulses: Normal pulses. Heart sounds: Normal heart sounds. Pulmonary: Effort: Tachypnea resolved. no wheeze, respiratory distress decreased. Breath sounds: Normal breath sounds. Abdominal: General: There is no distension or abdominal bruit. Palpations: Abdomen is soft. Tenderness: There is abdominal tenderness decreased. There is no guarding or rebound. Hernia: No hernia is present. Musculoskeletal: General: Tenderness decreased. Right lower leg: Edema present. Left lower leg: Edema present. Comments: Left greater then right LE edema Skin: General: Skin is warm and dry. Capillary Refill: Capillary refill takes less than 2 seconds. Coloration: Skin is not cyanotic. Nails: There is no clubbing. Comments: Skin hot Neurological: General: No focal deficit present. Mental Status: She is alert and oriented to person, place, and time. Sensory: Sensation is intact. Motor: Motor function is intact. Psychiatric: Mood and Affect: Mood normal. Behavior: Behavior normal. Behavior is cooperative. Labs: Recent Labs 11/16/24 0515 11/17/24 0453 11/18/24 0100 NA 141 141 139 K 3.2* 3.6 3.3* CL 101 103 101 CO2 29 29 28 BUN 23 30* 24* CREATININE 0.76 0.72 0.72 GLUCOSE 159* 137* 122* CALCIUM 8.8 8.3* 8.3* Recent Labs 11/16/24 0515 11/17/24 0453 11/18/24 0100 WBC 12.8* 10.1 10.3 HGB 9.6* 8.9* 10.3* HCT 32.1* 30.4* 34.5* PLT 208 191 213 LYMPHOPCT 6.3* 11.8* 16.7 MONOPCT 2.9* 7.2 9.9 BASOPCT 0.2 0.1 0.1 NEUTROABS 11.5* 8.1* 7.3 Micro: No results for input(s): COVID19 in the last 72 hours. 11/15/2024 0435 11/15/2024 0901 Blood culture Site #2 - Assess for effectiveness of treatment [[id number]] Blood, Venous Preliminary result Component Value Blood Culture Blood culture incubation started P 11/15/2024 0428 11/15/2024 0901 Blood culture Site #1 - Assess for effectiveness of treatment [[id number]] Blood, Venous Preliminary result Component Value Blood Culture Blood culture incubation started P 11/14/2024212411/15/2024 0335 Legionella and Streptococcus Urine Antigen [[id number]] Urine, Clean Catch Final result Component Value No component results 11/14/2024212411/15/2024 0335 Legionella and Streptococcus Urine Antigen [[id number]] Urine, Clean Catch Final result Component Value Legionella pneumophila Ag Not Detected Streptococcus pneumoniae Ag Not Detected 11/13/2024 1022 11/15/2024 1110 Urine culture [[id number]] (Abnormal) Urine, Clean Catch Final result Component Value Urine Culture >100,000 CFU/mL Escherichia coli Abnormal 11/13/2024 1009 11/15/2024 0951 Blood culture Site #2 - Suspected Infection [[id number]] (Abnormal) Blood, Venous Final result Component Value Blood Culture Escherichia coli Panic For identification and/or sensitivity, refer to culture collected on: 11/13/2024 at 1008 ([facility]-[id number]). This is an edited result. Previous organism was Gram-negative bacilli on 11/14/2024 at 1514 EDT. 11/13/2024 1008 11/15/2024 0951 Blood culture Site #1 - Suspected Infection [[id number]] (Abnormal) Blood, Venous Final result Component Value Blood Culture Escherichia coli Panic 11/13/2024 1008 11/14/2024 0007 Blood Culture Identification - Anaerobic [[id number]] (Abnormal) Blood, Venous Final result Component Value Escherichia coli Detected Abnormal 11/13/2024 0959 11/13/2024 1056 SARS-CoV-2, Flu A/B, and RSV Combo [[id number]] Swab from Nasopharynx Final result Component Value SARS-CoV-2 Not Detected Respiratory Syncytial Virus Not Detected Influenza A Not Detected Influenza B Not Detected 11/13/2024 0958 11/13/2024 2125 Respiratory Pathogens Panel by PCR [[id number]] Swab from Nasopharynx Final result Component Value SARS-CoV-2 Not Detected Adenovirus Not Detected Coronavirus HKU1 Not Detected Coronavirus NL63 Not Detected Coronavirus 229E Not Detected Coronavirus OC43 Not Detected Human Metapneumovirus Not Detected Human Rhinovirus/Enterovirus Not Detected Influenza A Not Detected Influenza B Not Detected Parainfluenza 1 Not Detected Parainfluenza 2 Not Detected Parainfluenza 3 Not Detected Parainfluenza 4 Not Detected Respiratory Syncytial Virus Not Detected Bordetella pertussis Not Detected Bordetella parapertussis Not Detected Chlamydia pneumoniae Not Detected Mycoplasma pneumoniae Not Detected Lines: PIV site ok Radiography/Echo/Other: XR chest 1 view [[id number]] Collected: 11/14/242005 Order Status: Completed Updated: 11/14/242042 Narrative: Patient Name: DIVYA JOSEPH : 1950 Exam Date/Time: 11/14/2024 19:51 Procedure: XR CHEST 1 VIEW Ordering Provider: TOBAR TIMOTHY Reason For Exam: Shortness of breath INDICATION: Shortness of breath. VIEWS: Portable AP upright chest COMPARISON: 11/13/2024; CT chest 11/13/2024 at 10:51 FINDINGS: The trachea is midline. The cardiac silhouette is within normal limits. Median sternotomy wires are present. A dual-chamber cardiac device overlies the left mid hemithorax. There is a zzbzo-qw-fazqfgad layering left pleural effusion. Suspect a small right pleural effusion. Moderate to severe centrilobular emphysema is present. There is thickening of the interstitium which is new and/or increased compared to prior exam. Residual contrast is present within the stomach. Impression: 1. Jpizi-yf-pafgxusf layering LEFT pleural effusion. 2. Suspect small RIGHT pleural effusion. 3. Moderate to severe centrilobular emphysema with suspected superimposed interstitial edema. Report Dictated on Electronically Signed By: Alanna Stewart MD Electronically Signed Date/Time: 11/14/2024 8:10 PM EDT FL modified barium with video and speech [[id number]] Collected: 11/14/24 1346 Order Status: Completed Updated: 11/14/24 1416 Narrative: Patient Name: DIVYA JOSEPH : 1950 Exam Date/Time: 11/14/2024 13:05 Procedure: FL MODIFIED BARIUM WITH VIDEO AND SPEECH Ordering Provider: AGUAYO KELLY Reason For Exam: concern for aspiration MODIFIED BARIUM SWALLOW (COOKIE SWALLOW) CLINICAL INDICATION: Dysphagia. Cough with oral intake. COMPARISON: None. FLUOROSCOPY DOSE: Ka,r= 21.65 mGy TECHNIQUE: The procedure was performed in conjunction with speech therapy. Barium mixtures of various consistencies were given under fluoroscopy with the patient in the sitting lateral position. FINDINGS: Preparatory phase decreased oral motor skills. Oral phase shows decreased AP transit. There are increased oral and tongue base residuals. Pharyngeal phase coating of the pharyngeal long. There is hypertrophy of the cricopharyngeus. There is no laryngeal penetration or airway aspiration. Impression: 1. No laryngeal penetration or airway aspiration. 2. Hypertrophy of the cricopharyngeus. Please refer to the speech pathologist's report for additional comments and recommendation. Report Dictated on Electronically Signed By: Rosanne Mir MD Electronically Signed Date/Time: 11/14/2024 2:[address] abdomen pelvis w contrast [[id number]] Collected: 11/13/24 1115 Order Status: Completed Updated: 11/13/24 1123 Narrative: Patient Name: DIVYA JOSEPH : 1950 Exam Date/Time: 11/13/2024 10:55 Procedure: CT ABDOMEN PELVIS W CONTRAST Ordering Provider: ACOSTA YASMIN Reason For Exam: Abdominal pain, acute, nonlocalized EXAMINATION: CT ABDOMEN PELVIS W CONTRAST CLINICAL HISTORY: Abdominal pain, acute, nonlocalized COMPARISON: None TECHNIQUE: Contiguous axial images were obtained through the abdomen and pelvis from the level of the diaphragmatic domes through the pubic symphysis following bolus administration of intravenous contrast. Dose reduction was employed with automated exposure control. FINDINGS: Included images of the lower thorax: Small bilateral pleural effusions are noted, left greater than right. There is dependent atelectasis in the bilateral lung bases. Hepatobiliary: Unremarkable liver without biliary dilation evident. The gallbladder is surgically absent. Pancreas: Unremarkable Spleen: Unremarkable Adrenal Glands: Unremarkable Kidneys and ureters: Right renal cyst is noted. There is mild right-sided hydroureter. Abdominal vasculature: Atherosclerotic wall calcifications are present without aneurysm. GI tract: No evidence of obstruction. The appendix is normal. Peritoneum and retroperitoneum: No free fluid or free air is noted. Lymph Nodes: No abdominal lymphadenopathy is evident. 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 There is grade 1 anterolisthesis of L5 on S1. Impression: 1. Small bilateral pleural effusions, left greater than right. 2. Mild right-sided hydroureter. Report Dictated on Electronically Signed By: Wong Srinivasan MD Electronically Signed Date/Time: 11/13/2024 11:[address] chest angiogram w and/or wo IV contrast [[id number]] Collected: 11/13/24 1122 Order Status: Completed Updated: 11/13/24 1130 Narrative: [facility] 1950 [id number] Exam Date/Time: 11/13/2024 10:55 Procedure: CT CHEST ANGIOGRAM W AND/OR WO IV CONTRAST Ordering Provider: ACOSTA YASMIN Reason For Exam: Pulmonary embolism (PE) suspected, high prob CT ANGIOGRAPHY CHEST: CLINICAL INDICATION: Pulmonary embolism (PE) suspected, high prob TECHNIQUE: Transaxial sequence from apices through the bases during dynamic intravenous infusion of contrast media, injected at a high flow rate. Multiplanar and 3D MIP reconstruction was performed concurrently on an independent viewing workstation. Dose reduction was employed with automated exposure control. COMPARISON: None FINDINGS: Lungs: No consolidation or atelectasis. No parenchymal or pleural-based mass. Pleural fluid: None. Exam quality: Examination is somewhat limited due to motion artifact from the patient's breathing. Good contrast enhancement of the vasculature. Pulmonary Arteries: Examination is limited due to motion artifact. There is decreased attenuation involving multiple segmental and subsegmental pulmonary artery supplying the right upper lobe, however evaluation is limited due to motion artifact.. Aorta: Normal caliber. Atherosclerotic calcifications. Heart: No abnormality . Coronary Arteries: coronary artery calcification. Mediastinum/Ne: No mediastinal or hilar mass. Upper abdomen: Unremarkable. Osseous structures: No abnormality. Soft tissues chest wall/Neck base: No abnormality identified. Impression: Examination is limited due to motion artifact. There is decreased attenuation involving multiple segmental and subsegmental pulmonary artery supplying the right upper lobe which could represent pulmonary emboli, however evaluation is limited due to the motion artifact. The RV/LV ratio is less than one.. . Report Dictated on Electronically Signed By: Wong Srinivasan MD Electronically Signed Date/Time: 11/13/2024 11:[address] head wo IV contrast [[id number]] Collected: 11/13/24 1113 Order Status: Completed Updated: 11/13/24 1116 Narrative: Patient Name: [facility] JOSEPH [facility] 1950 [id number] Exam Date/Time: 11/13/2024 10:55 Procedure: CT HEAD WO IV CONTRAST Ordering Provider: ACOSTA YASMIN Reason For Exam: Mental status change, unknown cause EXAMINATION: CT HEAD WO IV CONTRAST HISTORY: Mental status change, unknown cause - - - - - [id number] - - - - TECHNIQUE: CT head without contrast. Dose reduction was employed with automated exposure control. COMPARISON: None. RESULT: Acute change: No evidence of an acute intracranial process. Hemorrhage: No evidence of acute intracranial hemorrhage. Mass Lesion / Mass Effect: No evidence of an intracranial mass, extra-axial fluid collection, or significant localized mass effect. Chronic change: None apparent. Parenchyma: There is no significant volume loss. The brain parenchyma is otherwise within normal limits for age. Ventricles: Normal caliber and morphology. Other: The calvarium, skull base, imaged paranasal sinuses, mastoids, orbits and extracranial soft tissues are unremarkable. Visual Merchandise Manager (topogram) images: No additional findings. Impression: No CT evidence of an acute intracranial abnormality. Report Dictated on Electronically Signed By: Wogn Srinivasan MD Electronically Signed Date/Time: 11/13/2024 11:15 AM EDT XR chest 1 view [[id number]] Collected: 11/13/24 1028 Order Status: Completed Updated: 11/13/24 1032 Narrative: Patient Name: [facility] JOSEPH : 1950 [id number] Exam Date/Time: 11/13/2024 10:21 Procedure: XR CHEST 1 VIEW Ordering Provider: ACOSTA YASMIN Reason For Exam: ALTERED MENTAL STATUS HISTORY: Altered mental status Frontal view the chest with comparison study from 10/28/2024 shows slight hypoinflation with pulmonary vascular prominence. Prior chest surgery with median sternotomy wires and dual-lead pacemaker with surgical clips left neck Report Dictated on Electronically Signed By: Grant Bagley MD Electronically Signed Date/Time: 11/13/2024 10:31 AM EDT 11/14/24 TTE: Interpretation Summary Show Result Comparison Left Ventricle: Left ventricle size is normal. Mild basal septal thickening. Normal left ventricular systolic function. EF by 2D Simpsons Biplane is 55%. Global longitudinal strain is normal with a value of -19.8%. See diagram for wall motion findings. Grade II diastolic dysfunction with increased LAP. Elevated left ventricular filling pressure. Average E/e' ratio is 14.60. Right Ventricle: Right ventricle size is normal. Pacemaker lead present in the right ventricle. Normal systolic function. Mitral Valve: Mild (1+) regurgitation. Tricuspid Valve: Mild to moderate (1-2+) regurgitation. Mildly elevated RVSP. RVSP is 44 mmHg. Left Atrium: Left atrium size is moderately increased (LA volume index 42-48 mL/m2).LA Vol Index is 37 ml/m2. Aorta: Normal sized sinuses of Valsalva and ascending aorta. There is a small outpouching on the anterior aspect of the aorta with blood flow as per color Doppler interrogation. Based on history and CTA, suspect this is the ostium of a prior CABG anastomosis, reccomend radiographic corrleation if clinicially indicated. Echo Findings Left Ventricle Left ventricle size is normal. Mild basal septal thickening. Normal left ventricular systolic function. EF by 2D Simpsons Biplane is 55%. Global longitudinal strain is normal with a value of -19.8%. See diagram for wall motion findings. Grade II diastolic dysfunction with increased LAP. Elevated left ventricular filling pressure. Average E/e' ratio is 14.60. Right Ventricle Right ventricle size is normal. Pacemaker lead present in the right ventricle.Normal systolic function. Left Atrium Left atrium size is moderately increased (LA volume index 42-48 mL/m2).LA Vol Index is 37 ml/m2. Interatrial Septum No interatrial shunt visualized on color Doppler. Right Atrium Right atrium size is normal. Pacemaker lead present in the right atrium. Aortic Valve Trileaflet. Mildly calcified cusps. Mild annular calcification. No regurgitation. No stenosis. Mitral Valve Valve structure is normal. Mild annular calcification. Mild (1+) regurgitation. No stenosis noted. Tricuspid Valve Valve structure is normal. Mild to moderate (1-2+) regurgitation. Mildly elevated RVSP. RVSP is 44 mmHg. Pulmonic Valve Valve structure is normal. Mild to moderate (1-2+) regurgitation. Pulmonary Artery Pulmonary artery was not well visualized. Aorta Normal sized sinuses of Valsalva and ascending aorta. There is a small outpouching on the anterior aspect of the aorta with blood flow as per color Doppler interrogation. Based on history and CTA, suspect this is the ostium of a prior CABG anastomosis, reccomend radiographic corrleation if clinicially indicated. IVC/Hepatic Veins IVC diameter is normal and decreases greater than 50% during inspiration; therefore the estimated right atrial pressure is normal (~3 mmHg). IVC Diameter is 2.0 cm. Pericardium No pericardial effusion. Antimicrobials, Start/End Dates: Ceftr 11/13,- Ertapenem Impression: Septic shock. Improved. E coli bacteremia. E coli UTI with hydroureter. Acute respiratory failure requiring O2. Sick sinus syndrome, requiring placement of a permanent pacemaker. Altered Mental Status. Improved. Acute deep vein thrombosis (DVT), both lower extremities. ? PE. Plan: Pt was admitted sick due to septic shock due to E coli bacteremic UTI/ pyelonephritis. Afebrile, hemodynamically ok, hypoxia improved. Non-productive cough, legionella Ag -neg. Leukocytosis resolved. Repeat Blood cxs -neg so far. Blood and urine E coli isolates are sensitive to 3rd-generation cephalosporin. She has PPM, TTE demonstrated mitral, tricuspid and pulmonic valves regurgitations, no vegetation. Continue ceftriaxone for 4 weeks from negative cx date (11/15), through 12/13/24, followed by surveillance blood cxs 1 week after completion of antimicrobial, on 12/20/24. Needs picc line. High level complexity medical decision making. Will follow. Total time of 50 minutes on this day of encounter spent on, but not limited to review of tests, medical records , complex history , review of external medical records, paper and electronic, counseling and education (patient, family member, caregiver), ordering medications, tests, and procedures, communication with other health care professions, independent interpretation of tests, care coordination, arrangement of outpatient antimicrobial therapy, post-hospitalization therapy and follow-up, and counseling for risks, benefits, and consideration of use of antimicrobials. Hospitalist Progress Note 11/18/2024 [phone]: Please page me ([phone]) for patient care issues. [phone]: Please page [facility] night Hospitalist for any issues. Subjective: Admit Date: 11/13/2024 PCP: Rosanne Waddell DO Room#: B4-458/B4-458 A Interval History: patient admitted for septic shock. No overnight issues. Complaints reported by patient: reports feeling well. Adult diet Easy to Chew; Gluten Free 24HR INTAKE/OUTPUT: Intake/Output Summary (Last 24 hours) at 11/18/2024 1202 Last data filed at 11/18/2024 0913 Gross per 24 hour Intake 5 ml Output -- Net 5 ml Past Medical History: Medical History[1] LABS: CBC: Recent Labs 11/16/2451411/17/24 0453 11/18/24 0100 WBC 12.8* 10.1 10.3 RBC 3.93 3.72* 4.22 HGB 9.6* 8.9* 10.3* HCT 32.1* 30.4* 34.5* MCV 81.7 81.7 81.8 RDW 19.9* 19.0* 19.4* PLT 208 191 213 BMP: Recent Labs 11/16/2451411/17/243 11/18/24 0100 NA 141 141 139 K 3.2* 3.6 3.3* CL 101 103 101 CO2 29 29 28 BUN 23 30* 24* CREATININE 0.76 0.72 0.72 GLUCOSE 159* 137* 122* CALCIUM 8.8 8.3* 8.3* ANIONGAP 11 9 10 LIVER PROFILE: No results for input(s): AST, ALT, BILITOT, ALKPHOS, PROT in the last 72 hours. No lab exists for component: LABALBU PT/INR: Recent Labs 11/16/24 0515 11/17/24 0453 11/18/24 0100 PROTIME 34.3* 33.1* 31.3* INR 3.4* 3.4* 3.1* CARDIAC ENZYMES: No results for input(s): TROPONINI in the last 72 hours. Procalcitonin: No results found for: PROCAL COVID-19 PCR: No results for input(s): COVID19 in the last 72 hours. Objective: Vitals: BP (!) 170/71 (BP Location: Right arm, Patient Position: Lying) Pulse 61 Temp 36.3 C (97.3 F) (Temporal) Resp 18 Ht 5' 3 (1.6 m) Wt 153 lb (69.4 kg) SpO2 98% BMI 27.10 kg/m Pulse Ox: SpO2 Av % Min: 94 % Max: 98 % Supplemental O2: O2 Flow Rate (L/min): 1 L/min General appearance: No apparent distress, appears stated age, frail female in NAD Respiratory: CTA BL, no wheezing. Cardiovascular: S1 and S2 present, no murmur detected Abdomen: Soft, non-tender, non-distended Skin: Skin color, texture, turgor normal. No rashes or lesions. Neurologic: grossly non-focal. Medications: Continuous Meds[2] Scheduled Meds[3] Assessment Septic shock E coli bacteremia Ecoli UTI E coli pyelonephritis Admitted to medicine but transferred ICU, required pressor support in setting of worsening sepsis. ID following Abx per ID recs Follow blood cultures NSTEMI type 2 demand Cardiology following Echo with LVEF of 55% Hx of CAD with remote CABG Imdur ASA and statin Affib Rate controlled Coumadin, pharmacy to dose Daily INR Metoprolol Weakness and debility PT/OT eval and treat COPD, no acute exacerbation Chronic normocytic anemia, baseline SSS s/p PPM PVD Chronic peripheral neuropathy Home medications reviewed and resumed as indicated. Medical Decision Making 11/16/24: Patient with acute metabolic encephalopathy and sepsis on presentation, in setting of E coli bacteremia, E coli UTI, and E coli pyelonephritis, required ICU transfer to due worsening sepsis with shock, required vasopressors. Covered with broad spectrum abx and IV fluids. ID on consult for abx management, planning for likely 4 weeks IV abx on discharge. Repeat BC obtained yesterday, need to be negative x48 hours. She stabilized and was weaned off vasopressor support, and transferred out of ICU on 11/15/24. She is also followed by cardiology, as patient with elevated troponin, deemed to be type 2 demand related elevation of troponin. Echo with LVEF of 55%. Follow INR, coumadin dosing by pharmacy. PT/OT eval and treat. Encourage PO intake. Labs and vitals reviewed and stable. CBC and BMP in the AM. 11/17/24: patient not able to get PICC done yesterday because repeat BC not negative x48 hours. PICC planned for 11/19/24. Will likely need 4 weeks iV abx per ID, final recs pending. Labs and vitals reviewed and stable. Plan for SNF on discharge likely after PICC is placed on 11/19/24. Labs and vitals reviewed and stable. CBC and BMP in the AM. 11/18/24: repeat BC negative, plan for PICC to be placed tomorrow, will need finalized abx recs from ID on discharge. Labs and vitals reviewed and stable. Plan for discharge to SNF tomorrow once final abx recs received from ID. CBC and BMP in the AM. -DVT prophylaxis: [] Lovenox [] Heparin [] SCDs [x] Encourage ambulation [x] Already on Anticoagulation Anticipated Discharge - Date - 11/19 - Location - Skilled Facility - Pending the following - continued improvement. Final abx recs from ID. PICC Toxic drug monitoring/narrow therapeutic index drug monitoring : # Drug name : # Route administered : # Method of monitoring : Extended Emergency Contact Information Primary Emergency Contact: Rey Fagan Mobile Relation: Brother Preferred language: Burkinan Crisis Manager needed? No Secondary Emergency Contact: Jolene Fagan Mobile Relation: Other Preferred language: Burkinan Crisis Manager needed? No Rosanne Waddell DO Division of [facility] Medicine Inpatient Medical Services/[facility] PAGER: Polly chat [1] Past Medical History: Diagnosis Date Altered mental status, unspecified Ataxia Atherosclerotic heart disease Bradycardia, unspecified Cognitive communication deficit COPD (chronic obstructive pulmonary disease) (HCC) i was told i had COPD, then I was told i wasn't, i don't know for sure Difficulty walking Dysphagia, oropharyngeal phase Dyspnea Essential (primary) hypertension Gastro-esophageal reflux disease without esophagitis Muscle weakness (generalized) Need for assistance with personal care Other chronic pain Pain in left shoulder Paroxysmal atrial fibrillation (HCC) Peripheral vascular disease, unspecified (HCC) Presence of cardiac pacemaker Repeated falls Sick sinus syndrome (CMS/HCC) (HCC) Unsteadiness on feet Weakness [2] [3] aspirin, 81 mg, Oral, Daily cefTRIAXone, 2,000 mg, IntraVENous, q24h cetirizine, 5 mg, Oral, Daily folic acid, 1 mg, Oral, Daily gabapentin, 200 mg, Oral, TID [Held by provider] isosorbide mononitrate ER, 30 mg, Oral, Daily lisinopril, 5 mg, Oral, Daily metoprolol tartrate, 12.5 mg, Oral, BID montelukast, 10 mg, Oral, Nightly mupirocin, 1 Application, Nasal, BID pantoprazole, 40 mg, Oral, qAM AC pravastatin, 80 mg, Oral, Nightly sodium chloride 0.9%, 5-40 mL, IntraVENous, 2 times per day trospium, 20 mg, Oral, Daily warfarin, 0.5 mg, Oral, Once [facility] ([facility]) Inpatient Warfarin Consult HPI: Divya Joseph is a 74 y.o. 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 Medical History[1] Patient is on warfarin for Afib and has a goal INR 2.0 - 3.0. Warfarin is currently managed by [facility]. Pt's home dose of warfarin is 2.5mg daily per [place] at the facility. Pt's last INR in the clinic was 2.6 on 10/29. S/sx of bleeding= hgb 10.3. Noted bruises/bleeds easily on physical inspection with small amount of epistaxis 11/14. Interacting medications= ASA 81 mg , pravastatin 80 mg (home med). Labs: Recent Labs 11/16/24 0515 11/17/24 0453 11/18/24 0100 HGB 9.6* 8.9* 10.3* HCT 32.1* 30.4* 34.5* PLT 208 191 213 Recent Labs 11/18/24 0100 INR 3.1* Date INR Dose 11/18 3.1 0.5 mg 11/17 3.4 0.5 mg 11/16 3.4 0.5mg 11/15 3.3 1 mg 11/14 2.3 2.5mg 11/13 2.3 4mg Assessment/Plan: 1. INR is slightly supratherapeutic today. Trending down, Will give another low-dose of 0.5 mg today . 2. Monitor for s/s of bleeding and drug interactions. Will adjust dose accordingly. 3. Warfarin is managed by [facility] outpatient. [facility] will manage inpatient and sign off at discharge. John Bailey PharmD [facility] Consult Service is available daily [phone] via [employer] Secure Chat. [1] Past Medical History: Diagnosis Date Altered mental status, unspecified Ataxia Atherosclerotic heart disease Bradycardia, unspecified Cognitive communication deficit COPD (chronic obstructive pulmonary disease) ([facility]) i was told i had COPD, then I was told i wasn't, i don't know for sure Difficulty walking Dysphagia, oropharyngeal phase Dyspnea Essential (primary) hypertension Gastro-esophageal reflux disease without esophagitis Muscle weakness (generalized) Need for assistance with personal care Other chronic pain Pain in left shoulder Paroxysmal atrial fibrillation (HCC) Peripheral vascular disease, unspecified (HCC) Presence of cardiac pacemaker Repeated falls Sick sinus syndrome (CMS/HCC) ([facility]) Unsteadiness on feet Weakness Images from the original note were not included. PHYSICAL THERAPY [facility] Treatment Note Name/MRN: Divya Joseph ([id number]) Date of : 1950 Age: 74 y.o. Room/Bed: B4458/B4458 A Visit #: 2 out of 5 Discharge Recommendation: Long Term Facility Equipment Needed: No Prior Level of Function Prior Level of ADL Function: Required Assist Prior Level of Mobility: Required Assist; Device: Wheelchair - manual Prior Level of Transfers: Required Assist Assessment Pt demos improvement in functional mobility and progress toward therapy goals. Pt requires SBA for bed mobility, min A for functional transfers, min A for short distance ambulation with FWW. Pt is currently limited by endurance, fatigue and will continue to benefit from acute skilled PT to address current deficits. Recommend SNF. Subjective Pt very pleasant and agreeable to therapy session Pain: Pt denies any current pain. Medical Precautions: No active isolations Proper PPE donned/doffed in accordance with facility standards. Fall Risk: [place] Fall Risk Score: 100 (High Risk) Precautions/Restrictions: N/A Overall Cognitive Status: WFL Overall Orientation Status: Oriented x4 Family/Caregiver Present: none Objective Bed Mobility Supine to sit: SBA Sit to supine: SBA Pt completes bed mobility at SBA with HOB elevated. Slightly increased time and effort required to complete. Transfers/Mobility Sit to stand: Min Assist Stand to sit: Min Assist X2 from EOB to FWW. Pt requires min A x1 to elevate and assist in controlled descent with cues provided for hand placement with fair carryover. Device(s) used: Front wheeled walker Ambulation Ambulation 1 Assistive device(s) used: Front wheeled walker Assist level: Min Assist Distance (ft): ~9 feet forward/retro, ~4 lateral steps Quality of gait: reciprocal stepping, shuffling, slow rashard Pt demos short, shuffling gait, decreased gait speed. Pt requires cues for upright posture, increased B foot clearance with fair carryover noted. Increased time to complete short distance ambulation. Balance During Session: Posture: fair Standing - Static: Contact Guard Standing - Dynamic: Contact Guard Plan Continue acute PT per plan of care. Safety/Education Safety Safety Devices in place: All fall risk precautions in place, call light within reach, left in bed, gait belt, patient at risk for falls, and no alarms engaged upon entry Restraints: N/A Education Education Given To: patient Education Provided: PT Role, PT Goals, Gait Training, Plan of Care, Transfer Training, Energy Conservation, Equipment, Discharge Recommendations, and Benefits of Increasing Activity Education Method: Verbal and Demonstration Barriers to Learning: None Education Outcome: Verbalized Understanding, Demonstrated Understanding, and Continued Education Needed Outcome Measures AM-PAC AM-PAC Inpatient Mobility Raw Score (No Stairs) : 15 JH-HLM JH-HLM Scale: Walked 10 steps or more (i.e. walked to restroom) Goals Patient Stated Goal: to walk Encounter Problems Encounter Problems (Active) Balance Patient will maintain dynamic standing balance for 2 minutes with SBA in order to demonstrate decreased risk of falling. (Progressing) Start: 11/15/24 Expected End: 11/22/24 Exercise Patient will complete lower extremity exercises for 1-2 sets / 5-10 reps in order to improve strength and activity tolerance for mobility. (Not Addressed) Start: 11/15/24 Expected End: 11/22/24 Mobility Patient will ambulate 20 feet with CGA and rolling walker in order to improve safety and independence with mobility. (Progressing) Start: 11/15/24 Expected End: 11/22/24 Transfers Patient will perform bed mobility with modified independence in order to improve independence and prepare for out of bed mobility. (Progressing) Start: 11/15/24 Expected End: 11/22/24 Patient will complete sit to stand transfer with SBA to rolling walker in order to improve safety and prepare for out of bed mobility. (Progressing) Start: 11/15/24 Expected End: 11/22/24 Therapy Time Individual Co-treatment Time In 1016 Time Out 1027 Minutes 11 Timed Code Treatment Minutes: 10 Minutes (gait x1) Gabriella Bagley PT Images from the original note were not included. OCCUPATIONAL THERAPY [facility] Treatment Note Name/MRN: Divya Joseph ([id number]) Date of : 1950 Age: 74 y.o. [facility] Visit #: 2 out of 7 visits Discharge Recommendation: Long Term Facility Prior Level of Function Prior Level of ADL Function: Required Assist Prior Level of Mobility: Required Assist; Device: Wheelchair - manual Prior Level of Transfers: Required Assist Assessment Pt in the bed and is agreeable to OT. Pt is min assist for supine > sit, CGA for sit > stand, CGA for static stand at the FWW and is CGA for functional mobility in the room and in the cobos. Pt walks slowly but had no true LOB. Pt taking several standing rest breaks and is unsteady. Pt is limited by pain (left wrist when pushing on the FWW), weakness and fatigue. OT recs SNF at discharge. Subjective I'm still pretty weak Pain: RN managing pain. Pt reports left wrist pain from pushing down on the FWW when walking. Did not rate pain. Medical Precautions: No active isolations Proper PPE donned/doffed in accordance with facility standards. Fall Risk: [place] Fall Risk Score: 100 (High Risk) Precautions/Restrictions: N/A Family/Caregiver Present: none Objective ADLs Not assessed this session ADL's offered and pt declines. Bed Mobility Supine to sit: Min Assist Sit to supine: Contact Guard Transfers/Mobility Sit to stand: Contact Guard Stand to sit: Contact Guard Sitting balance: Supervision Standing balance: Contact Guard Functional mobility: Contact Guard CGA for sit > stand, CGA for static stand at the FWW and is CGA for functional mobility in the room and in the cobos. Pt walks slowly but had no true LOB. Pt taking several standing rest breaks and is unsteady. Pt is limited by pain (left wrist when pushing on the FWW), Pt had removed her O2 for walking and had no SOB. Is on 1 liter O2 and replaced when returned to bed. Device(s) used: Front wheeled walker Cognition - Safety judgement: decreased awareness of need for safety - Initiation: requires cues for some A&O x 4 Plan Continue acute OT per plan of care. Safety/Education Safety Safety Devices in place: All fall risk precautions in place, call light within reach, left in bed, gait belt, patient at risk for falls, and nurse notified Restraints: N/A Education Education Given To: patient Education Provided: OT Role, Plan of Care, Transfer Training, Fall Prevention Education, and Benefits of Increasing Activity Education Method: Verbal, Demonstration, and Teach Back Barriers to Learning: None Education Outcome: Verbalized Understanding, Demonstrated Understanding, and Continued Education Needed AM-PAC AM-PAC Inpatient Daily Activity Raw Score: 19 ADL Inpatient CMS G-Code Modifier: CK Goals Patient Stated Goal: get better Encounter Problems Encounter Problems (Active) Balance Patient will maintain dynamic standing balance for 5 minutes with CGA in order to demonstrate decreased risk of falling. (Progressing) Start: 11/15/24 Expected End: 11/22/24 Dressing Upper Extremities Patient will complete upper body dressing MOD I (Not Addressed) Start: 11/15/24 Expected End: 11/22/24 Dressings Lower Extremities Patient will dress lower body MOD I (Not Addressed) Start: 11/15/24 Expected End: 11/22/24 Toileting Patient will complete toileting tasks at standard toilet with CGA. (Not Addressed) Start: 11/15/24 Expected End: 11/22/24 Transfers Patient will complete functional transfer with rolling walker with CGA in order to prepare for ambulation. (Progressing) Start: 11/15/24 Expected End: 11/22/24 Therapy Time Individual Co-treatment Time In 1053 Time Out 1121 Minutes 28 Timed Code Treatment Minutes: 25 Minutes (ther act,2) DONOVAN Faulkner Cosigned by Evelyn Nguyen OT at 11/18/2024 6:38 AM EDT [facility]Electrophysiology Progress Note HPI / Interval History: Divya Joseph presents to [facility] due to mental status changes. She has a history of coronary artery disease, remote bypass surgery, sick sinus syndrome, s/p placement of a permanent pacemaker, hypertension, paroxysmal atrial fibrillation COPD, anemia, who lives in a SNF. She has been febrile and has been diagnosed with a UTI. CTA of her chest suggestive of possible PE, but of low suspicion in the setting of a therapeutic INR. Vascular US with no evidence of DVT in the BLE. She was seen in consultation with Dr. Niedermaier due to elevated troponin up 152 and a BNP of 8,878. She is felt to have a type II NSTEMI in the setting of sepsis and UTI. She has had no chest pain or EKG changes. Echocardiogram 11/14/2024 EF-55%. She been maintaining a SR, anticoagulated on warfarin with a therapeutic- INR 3.4 today. She was transferred to the ICU 11/14 due to hypotension, requiring vasopressor support. Breathing and BP improved, transferred back to [facility] 11/15/2024. Pt states she is comfortable. She continues to deny chest pain or palpitations. She is down to 1 liter NC. Her home medications including low dose metoprolol tartrate 12.5 mg twice daily and lisinopril 5 mg daily resumed 11/16. Will resume isosorbide 30 mg daily today. Assessment/Plan HF NYHA Class [] I [] II [] III [] IV []Unable to assess [] N/A Abnormal troponin- no evidence of ACS. Type II NSTEMI in the setting of sepsis and UTI. - has had no complaints of CP free - Echo 11/14 with preserved EF. - low dose aspirin and pravastatin continues - no further cardiac evaluation warranted. 2. Hx of CAD with remote CABG- has remained CP free - cardioprotective meds including lisinopril 5 mg daily and metoprolol tartrate 12.5 mg twice daily resumed 11/16. -Imdur 30 mg daily resumed today. - low dose aspirin and pravastatin also continue for cardiac risk reduction 3. Elevated BNP- pt appears to be compensated. Comfortable on oxygen NC 1 l/m - remains off diuretic therapy - states she does not wear oxygen normally at the [facility] 4. Sepsis- UTI- per ID, IV antibiotics continue 5. Atrial fibrillation- maintaining a SR. Heart rate controlled. Anticoagulated on warfarin- INR 3.4 - low dose metoprolol 12.5 mg twice daily continues as noted above 6. Disp- will sign off from a cardiac standpoint. Please call if additional questions or concerns. Follow up has been arranged [facility] [place] office 12/10/2024 at 1:30 pm with Kamla CHAMBERLAIN. Medications: Scheduled Meds[1] Infusion Medications: Continuous Meds[2] Physical Examination: Vitals: 11/16/24 1511 11/16/24 2100 11/17/24 0500 11/17/24 0754 BP: 116/53 130/61 146/72 BP Location: Right arm Left arm Patient Position: Sitting Lying Pulse: 77 66 61 Resp: 18 18 Temp: 36.8 C (98.2 F) 37.2 C (99 F) 36.8 C (98.3 F) TempSrc: Temporal Temporal Temporal SpO2: 95% 95% 97% Weight: 153 lb (69.4 kg) Height: Intake/Output Summary (Last 24 hours) at 11/17/2024 1129 Last data filed at 11/17/2024 0941 Gross per 24 hour Intake 505 ml Output -- Net 505 ml Patient Vitals for the past 168 hrs: Weight Weight Method 11/17/24 0500 153 lb (69.4 kg) -- 11/16/24 0500 152 lb 9.6 oz (69.2 kg) Standing scale 11/15/24 0417 165 lb 2 oz (74.9 kg) Bed scale 11/14/24 0740 165 lb (74.8 kg) -- 11/13/24 1924 165 lb 12.6 oz (75.2 kg) Bed scale Physical Exam Constitutional: NAD Psychiatric: Alert. Medical insight good Neck: No JVD Respiratory: Lungs are clear, diminished anteriorly Heart: regular ; Nl S1 and S2, no murmur, no rub, gallop Abdomen: NABS; soft, non-tender, non-distended Extremities: no LE edema Skin: Warm to touch and well perfused Laboratory Tests: TROPONIN I, CONVENTIONAL SENSITIVITY No results found for: CKTOTAL, CKMB, CKMBINDEX, TROPONINI TROPONIN I, HIGH SENSITIVITY Troponin HS Serial Baseline Date Value Ref Range Status 11/13/2024 78 (H) <=14 ng/L Final Comment: In individuals presenting with symptoms > 2h, a baseline troponin <= 5 ng/L suggests acute cardiac injury is unlikely and further serial testing is generally not indicated. 10/28/2024 10 <=14 ng/L Final Comment: In individuals presenting with symptoms > 2h, a baseline troponin <= 5 ng/L suggests acute cardiac injury is unlikely and further serial testing is generally not indicated. 2h Troponin HS (Serial 2nd Troponin) Date Value Ref Range Status 11/13/2024 90 (H) <=14 ng/L Final Comment: Rising or falling troponin delta between 2 - 15 ng/L as compared to baseline value requires a 3rd serial troponin 10/28/2024 12 <=14 ng/L Final Comment: Rising or falling troponin delta below 2 ng/L as compared to baseline value suggests that acute cardiac injury is unlikely. No results found for: TROPDELTBASE 4h Troponin HS (Serial 3rd Troponin) Date Value Ref Range Status 11/13/2024 152 (H) <=14 ng/L Final Comment: 4h troponin (3rd troponin) samples collected between 1h 40 min and 2h and 20 min of the 2h troponin collection time can be utilized to interpret delta troponins as per [employer] algorithms. Samples collected outside this timeframe need to be interpreted clinically. Rising or falling troponin delta greater than 15 ng/L as compared to 2h troponin value is significant for acute cardiac injury. No results found for: TROPDELTSEC Recent Labs 11/15/2441811/16/2451411/17/24452 NA 141 141 141 K 3.1* 3.2* 3.6 CL 100 101 103 CO2 31 29 29 BUN 13 23 30* CREATININE 0.79 0.76 0.72 Recent Labs 11/14/24199911/15/2441811/16/2451411/17/243 WBC -- 8.6 12.8* 10.1 HGB 9.2* 8.5* 9.6* 8.9* HCT -- 28.7* 32.1* 30.4* MCV -- 82.9 81.7 81.7 PLT -- 133* 208 191 No results for input(s): BNP in the last 72 hours. No results for input(s): TRIG, HDL, LDLCALC, CHOL in the last 72 hours. No results found for: LDLCHOLESTER Lab Results Component Value Date TSH 0.69 11/14/2024 EF BP Date Value Ref Range Status 11/14/2024 55 55 - 100 % Final 11/13/24 TRANSTHORACIC ECHOCARDIOGRAM (TTE) COMPLETE (CONTRAST/BUBBLE/3D PRN) 11/14/2024 9:04 AM (Final) Interpretation Summary Left Ventricle: Left ventricle size is normal. Mild basal septal thickening. Normal left ventricular systolic function. EF by 2D Simpsons Biplane is 55%. Global longitudinal strain is normal with a value of -19.8%. See diagram for wall motion findings. Grade II diastolic dysfunction with increased LAP. Elevated left ventricular filling pressure. Average E/e' ratio is 14.60. Right Ventricle: Right ventricle size is normal. Pacemaker lead present in the right ventricle. Normal systolic function. Mitral Valve: Mild (1+) regurgitation. Tricuspid Valve: Mild to moderate (1-2+) regurgitation. Mildly elevated RVSP. RVSP is 44 mmHg. Left Atrium: Left atrium size is moderately increased (LA volume index 42-48 mL/m2).LA Vol Index is 37 ml/m2. Aorta: Normal sized sinuses of Valsalva and ascending aorta. There is a small outpouching on the anterior aspect of the aorta with blood flow as per color Doppler interrogation. Based on history and CTA, suspect this is the ostium of a prior CABG anastomosis, reccomend radiographic corrleation if clinicially indicated. Signed by: Rosanne Saunders MD on 11/14/2024 9:04 AM Other reports reviewed: Cardiac Tests: EC11/13/2024- IMPRESSION: SINUS RHYTHM ARTIFACT IN LEAD(S) Abnrm T, consider ischemia, anterolateral lds Tracing reviewed. Telemetry findings reviewed: SR-60's-70's, atrial pacing on demand EF BP Date Value Ref Range Status 11/14/2024 55 55 - 100 % Final LEONCIO Torres CNP Date Of Service 11/17/2024 [1] aspirin, 81 mg, Oral, Daily cefTRIAXone, 2,000 mg, IntraVENous, q24h cetirizine, 5 mg, Oral, Daily folic acid, 1 mg, Oral, Daily gabapentin, 200 mg, Oral, TID [Held by provider] isosorbide mononitrate ER, 30 mg, Oral, Daily lisinopril, 5 mg, Oral, Daily metoprolol tartrate, 12.5 mg, Oral, BID montelukast, 10 mg, Oral, Nightly mupirocin, 1 Application, Nasal, BID pantoprazole, 40 mg, Oral, qAM AC pravastatin, 80 mg, Oral, Nightly sodium chloride 0.9%, 5-40 mL, IntraVENous, 2 times per day trospium, 20 mg, Oral, Daily warfarin, 0.5 mg, Oral, Once [2] Hospitalist Progress Note 11/17/[phone]: Please page me ([phone]) for patient care issues. [phone]: Please page [place] night Hospitalist for any issues. Subjective: Admit Date: 11/13/2024 PCP: Rosanne Waddell, Room#: B4-458/B4-458 A Interval History: patient admitted for septic shock. No overnight issues. Complaints reported by patient: reports eating more yesterday and today. Denies issues. Adult diet Easy to Chew; Gluten Free 24HR INTAKE/OUTPUT: Intake/Output Summary (Last 24 hours) at 11/17/2024 1118 Last data filed at 11/17/2024 0941 Gross per 24 hour Intake 505 ml Output -- Net 505 ml Past Medical History: Medical History[1] LABS: CBC: Recent Labs 11/15/2441811/16/2451411/17/24452 WBC 8.6 12.8* 10.1 RBC 3.46* 3.93 3.72* HGB 8.5* 9.6* 8.9* HCT 28.7* 32.1* 30.4* MCV 82.9 81.7 81.7 RDW 20.1* 19.9* 19.0* PLT 133* 208 191 BMP: Recent Labs 11/15/2441811/16/2451411/17/24452 NA 141 141 141 K 3.1* 3.2* 3.6 CL 100 101 103 CO2 31 29 29 BUN 13 23 30* CREATININE 0.79 0.76 0.72 GLUCOSE 168* 159* 137* CALCIUM 8.8 8.8 8.3* ANIONGAP 10 11 9 LIVER PROFILE: Recent Labs 11/15/24418 AST 32 ALT 10 BILITOT 0.6 ALKPHOS 52 PROT 6.1* PT/INR: Recent Labs 11/15/2441811/16/2451411/17/24452 PROTIME 31.9* 34.3* 33.1* INR 3.3* 3.4* 3.4* CARDIAC ENZYMES: No results for input(s): TROPONINI in the last 72 hours. Procalcitonin: No results found for: PROCAL COVID-19 PCR: No results for input(s): COVID19 in the last 72 hours. Objective: Vitals: BP 146/72 (BP Location: Left arm, Patient Position: Lying) Pulse 61 Temp 36.8 C (98.3 F) (Temporal) Resp 18 Ht 5' 3 (1.6 m) Wt 153 lb (69.4 kg) SpO2 97% BMI 27.10 kg/m Pulse Ox: SpO2 Av.7 % Min: 95 % Max: 97 % Supplemental O2: O2 Flow Rate (L/min): 1 L/min General appearance: No apparent distress, appears stated age, frail female in NAD Respiratory: CTA BL, no wheezing. Cardiovascular: S1 and S2 present, no murmur detected Abdomen: Soft, non-tender, non-distended Skin: Skin color, texture, turgor normal. No rashes or lesions. Neurologic: grossly non-focal. Medications: Continuous Meds[2] Scheduled Meds[3] Assessment Septic shock E coli bacteremia Ecoli UTI E coli pyelonephritis Admitted to medicine but transferred ICU, required pressor support in setting of worsening sepsis. ID following Abx per ID recs Follow blood cultures NSTEMI type 2 demand Cardiology following Echo with LVEF of 55% Hx of CAD with remote CABG Imdur ASA and statin Affib Rate controlled Coumadin, pharmacy to dose Daily INR Metoprolol Weakness and debility PT/OT eval and treat COPD, no acute exacerbation Chronic normocytic anemia, baseline SSS s/p PPM PVD Chronic peripheral neuropathy Home medications reviewed and resumed as indicated. Medical Decision Making 11/16/24: Patient with acute metabolic encephalopathy and sepsis on presentation, in setting of E coli bacteremia, E coli UTI, and E coli pyelonephritis, required ICU transfer to due worsening sepsis with shock, required vasopressors. Covered with broad spectrum abx and IV fluids. ID on consult for abx management, planning for likely 4 weeks IV abx on discharge. Repeat BC obtained yesterday, need to be negative x48 hours. She stabilized and was weaned off vasopressor support, and transferred out of ICU on 11/15/24. She is also followed by cardiology, as patient with elevated troponin, deemed to be type 2 demand related elevation of troponin. Echo with LVEF of 55%. Follow INR, coumadin dosing by pharmacy. PT/OT eval and treat. Encourage PO intake. Labs and vitals reviewed and stable. CBC and BMP in the AM. 11/17/24: patient not able to get PICC done yesterday because repeat BC not negative x48 hours. PICC planned for 11/19/24. Will likely need 4 weeks iV abx per ID, final recs pending. Labs and vitals reviewed and stable. Plan for SNF on discharge likely after PICC is placed on 11/19/24. Labs and vitals reviewed and stable. CBC and BMP in the AM. -DVT prophylaxis: [] Lovenox [] Heparin [] SCDs [x] Encourage ambulation [x] Already on Anticoagulation Anticipated Discharge - Date - 11/19 - Location - Skilled Facility - Pending the following - continued improvement. Final abx recs from ID. PICC Toxic drug monitoring/narrow therapeutic index drug monitoring : # Drug name : # Route administered : # Method of monitoring : Extended Emergency Contact Information Primary Emergency Contact: Rey Fagan Mobile Relation: Brother Preferred language: [place]kinan Crisis Manager needed? No Secondary Emergency Contact: Jolene Fagan Mobile Relation: Other Preferred language: Burkinan Crisis Manager needed? No Rosanne Waddell DO Division of Hospitalist Medicine Inpatient Medical Services/[facility]: [employer] chat [1] Past Medical History: Diagnosis Date Altered mental status, unspecified Ataxia Atherosclerotic heart disease Bradycardia, unspecified Cognitive communication deficit COPD (chronic obstructive pulmonary disease) ([facility]) i was told i had COPD, then I was told i wasn't, i don't know for sure Difficulty walking Dysphagia, oropharyngeal phase Dyspnea Essential (primary) hypertension Gastro-esophageal reflux disease without esophagitis Muscle weakness (generalized) Need for assistance with personal care Other chronic pain Pain in left shoulder Paroxysmal atrial fibrillation (HCC) Peripheral vascular disease, unspecified (HCC) Presence of cardiac pacemaker Repeated falls Sick sinus syndrome (CMS/HCC) (HCC) Unsteadiness on feet Weakness [2] [3] aspirin, 81 mg, Oral, Daily cefTRIAXone, 2,000 mg, IntraVENous, q24h cetirizine, 5 mg, Oral, Daily folic acid, 1 mg, Oral, Daily gabapentin, 200 mg, Oral, TID [Held by provider] isosorbide mononitrate ER, 30 mg, Oral, Daily lisinopril, 5 mg, Oral, Daily metoprolol tartrate, 12.5 mg, Oral, BID montelukast, 10 mg, Oral, Nightly mupirocin, 1 Application, Nasal, BID pantoprazole, 40 mg, Oral, qAM AC pravastatin, 80 mg, Oral, Nightly sodium chloride 0.9%, 5-40 mL, IntraVENous, 2 times per day trospium, 20 mg, Oral, Daily warfarin, 0.5 mg, Oral, Once [facility] Anticoagulation Management [facility] ([facility]) Inpatient Warfarin Consult HPI: Divya Joseph is a 74 y.o. 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 Medical History[1] Patient is on warfarin for Afib and has a goal INR 2.0 - 3.0. Warfarin is currently managed by [facility]. Pt's home dose of warfarin is 2.5mg daily per [place] at the facility. Pt's last INR in the clinic was 2.6 on 10/29. S/sx of bleeding= hgb 8.9 . Noted bruises/bleeds easily on physical inspection with small amount of epistaxis 11/14. Interacting medications= ASA 81 mg , pravastatin 80 mg (home med)., dexamethasone 6 mg injection every 6 hours (last dose to end 11/15/24 at 1330). Labs: Recent Labs 11/15/24 0419 11/16/24 0515 11/17/24 0453 HGB 8.5* 9.6* 8.9* HCT 28.7* 32.1* 30.4* PLT 133* 208 191 Recent Labs 11/17/24 0453 INR 3.4* Date INR Dose 11/17 3.4 0.5 mg 11/16 3.4 0.5mg 11/15 3.3 1 mg 11/14 2.3 2.5mg 11/13 2.3 4mg Assessment/Plan: 1. INR is slightly supratherapeutic today. Will give another low-dose of 0.5 mg today . 2. Monitor for s/s of bleeding and drug interactions. Will adjust dose accordingly. 3. Warfarin is managed by [facility] outpatient. [facility] will manage inpatient and sign off at discharge. John Bailey PharmD [facility] Consult Service is available daily [phone] via [employer] Chat. [1] Past Medical History: Diagnosis Date Altered mental status, unspecified Ataxia Atherosclerotic heart disease Bradycardia, unspecified Cognitive communication deficit COPD (chronic obstructive pulmonary disease) (HCC) i was told i had COPD, then I was told i wasn't, i don't know for sure Difficulty walking Dysphagia, oropharyngeal phase Dyspnea Essential (primary) hypertension Gastro-esophageal reflux disease without esophagitis Muscle weakness (generalized) Need for assistance with personal care Other chronic pain Pain in left shoulder Paroxysmal atrial fibrillation (HCC) Peripheral vascular disease, unspecified (HCC) Presence of cardiac pacemaker Repeated falls Sick sinus syndrome (CMS/HCC) (HCC) Unsteadiness on feet Weakness Images from the original note were not included. OCCUPATIONAL THERAPY [facility] Treatment Note Name/MRN: Divya Joseph ([id number]) Date of : 1950 Age: 74 y.o. Room/Bed: V9-448/B4-030 A Visit #: 1 out of 7 Discharge Recommendation: Long Term Facility Prior Level of Function Prior Level of ADL Function: Required Assist Prior Level of Mobility: Required Assist; Device: Wheelchair - manual Prior Level of Transfers: Required Assist Assessment Pt in bed upon arrival, agreeable to OT tx. Pt was SBA-min assist for bed-mobility, CGA for STS, Min assist for functional transfers, Min assist for mobility, and SBA-min for ADL's. Pt is progressing well with OT goals but still remains below baseline. Pt is limited by generalized weakness, decreased strength/endurance, increased instability, fall risk. Pt would continue to benefit from skilled OT therapy services to adapt to deficits and increase Occupational Performance. OT is rec SNF upon planned discharge. Subjective Ok to see for therapy. Pain: 0-10 pain scale: 2/10 Location: BLE's Medical Precautions: No active isolations Proper PPE donned/doffed in accordance with facility standards. Fall Risk: [place] Fall Risk Score: 100 (High Risk) Precautions/Restrictions: N/A Family/Caregiver Present: none Objective ADLs Grooming: SBA- Min Assist UE Dressing: Min Assist Pt completed grooming tasks seated EOB with SBA for facial hygiene with v/c's for sequencing. Pt completed UB dressing with min assist for lace mgmnt. Bed Mobility Supine to sit: SBA Sit to supine: Min Assist HOB Elevated Use of bed rail(s) Pt completed supine to sit with increased time to complete and min v/c's for sequencing with SBA for safety. Initial reports of dizziness with positional changes but able to subside. Pt returned supine with with min assist to elevate BL LE's into bed. Transfers/Mobility Sit to stand: Contact Guard Stand to sit: Contact Guard Stand step: Min Assist Sitting balance: SBA Standing balance: Contact Guard Functional mobility: Min Assist Pt completed x1 STS from EOB to fww with CGA for steadiness with STS d/t slight instability but no true LOB noted. Pt completed stand step transfer to EOB with min assist to guide hips into controlled descent. Pt sat EOB during ADL's with SBA for safety d/t decreased strength/endurance. Pt participated in balance training with fww and was CGA for balance d/t BL LE weakness. Pt completed marching in place and side steps close to HOB. Pt was min assist for steadiness. Device(s) used: Front wheeled walker Cognition Overall Cognitive Status: Exceptions - Following commands: follows one step commands with increased time and follows one step commands with repetition - Safety judgement: decreased awareness of need for safety - Initiation: requires cues for some - Sequencing: requires cues for some Overall Orientation Status: Oriented x4 Plan Continue acute OT per plan of care. Safety/Education Safety Safety Devices in place: All fall risk precautions in place, call light within reach, left in bed, gait belt, nurse notified, and no alarms engaged upon entry Restraints: No Education Education Given To: patient Education Provided: OT Role, Plan of Care, ADL Adaptive Strategies, Transfer Training, Energy Conservation, Orientation, Equipment, Fall Prevention Education, Discharge Recommendations, and Benefits of Increasing Activity Education Method: Verbal, Demonstration, and Teach Back Barriers to Learning: Cognition Education Outcome: Verbalized Understanding and Demonstrated Understanding AM-PAC AM-PAC Inpatient Daily Activity Raw Score: 19 ADL Inpatient CMS G-Code Modifier: CK Goals Patient Stated Goal: get better Encounter Problems Encounter Problems (Active) Balance Patient will maintain dynamic standing balance for 5 minutes with CGA in order to demonstrate decreased risk of falling. (Not Addressed) Start: 11/15/24 Expected End: 11/22/24 Dressing Upper Extremities Patient will complete upper body dressing MOD I (Progressing) Start: 11/15/24 Expected End: 11/22/24 Dressings Lower Extremities Patient will dress lower body MOD I (Not Addressed) Start: 11/15/24 Expected End: 11/22/24 Toileting Patient will complete toileting tasks at standard toilet with CGA. (Not Addressed) Start: 11/15/24 Expected End: 11/22/24 Transfers Patient will complete functional transfer with rolling walker with CGA in order to prepare for ambulation. (Progressing) Start: 11/15/24 Expected End: 11/22/24 Therapy Time Individual Co-treatment Time In 1324 Time Out 1347 Minutes 23 Timed Code Treatment Minutes: (1 ADL, 1 ACT) DONOVAN Abebe/Leah Cosigned by Darshan Chung OT at 11/16/2024 3:52 PM EDT Hospitalist Progress Note 11/16/2024 [id number]: Please page me ([phone]) for patient care issues. [phone]: Please page [facility] Hospitalist for any issues. Subjective: Admit Date: 11/13/2024 PCP: Rosanne Waddell DO Room#: B4458/B4458 A Interval History: patient admitted for septic shock. No overnight issues. Complaints reported by patient: reports poor appetite. Adult diet Easy to Chew; Gluten Free 24HR INTAKE/OUTPUT: Intake/Output Summary (Last 24 hours) at 11/16/2024 1247 Last data filed at 11/15/2024 1939 Gross per 24 hour Intake 50 ml Output 350 ml Net -300 ml Past Medical History: Medical History[1] LABS: CBC: Recent Labs 11/14/2451511/14/24199911/15/2441811/16/24 05 WBC 18.2* -- 8.6 12.8* RBC 3.56* -- 3.46* 3.93 HGB 8.6* 9.2* 8.5* 9.6* HCT 30.6* -- 28.7* 32.1* MCV 86.0 -- 82.9 81.7 RDW 20.6* -- 20.1* 19.9* PLT 160 -- 133* 208 BMP: Recent Labs 11/14/2451511/15/2441811/16/24514 NA 141 141 141 K 3.7 3.1* 3.2* CL 108* 100 101 CO2 27 31 29 BUN 13 13 23 CREATININE 0.72 0.79 0.76 GLUCOSE 108 168* 159* CALCIUM 8.7* 8.8 8.8 ANIONGAP 6 10 11 LIVER PROFILE: Recent Labs 11/14/2451511/15/24418 AST 32 32 ALT 7 10 BILITOT 0.6 0.6 ALKPHOS 54 52 PROT 5.3* 6.1* PT/INR: Recent Labs 11/14/2451511/15/2441811/16/24514 PROTIME 23.5* 31.9* 34.3* INR 2.3* 3.3* 3.4* CARDIAC ENZYMES: No results for input(s): TROPONINI in the last 72 hours. Procalcitonin: No results found for: PROCAL COVID-19 PCR: No results for input(s): COVID19 in the last 72 hours. Objective: Vitals: BP 145/66 (BP Location: Left arm, Patient Position: Lying) Pulse 66 Temp 36.8 C (98.2 F) (Temporal) Resp 18 Ht 5' 3 (1.6 m) Wt 152 lb 9.6 oz (69.2 kg) SpO2 96% BMI 27.03 kg/m Pulse Ox: SpO2 Av % Min: 91 % Max: 98 % Supplemental O2: O2 Flow Rate (L/min): 2 L/min General appearance: No apparent distress, appears stated age, frail female in NAD Respiratory: CTA BL Cardiovascular: S1 and S2 present, no murmur detected Abdomen: Soft, non-tender, non-distended Skin: Skin color, texture, turgor normal. No rashes or lesions. Neurologic: grossly non-focal. Medications: Continuous Meds[2] Scheduled Meds[3] Assessment Septic shock E coli bacteremia Ecoli UTI E coli pyelonephritis Admitted to medicine but transferred ICU, required pressor support in setting of worsening sepsis. ID following Abx per ID recs Follow blood cultures NSTEMI type 2 demand Cardiology following Echo with LVEF of 55% Hx of CAD with remote CABG Imdur ASA and statin Affib Rate controlled Coumadin, pharmacy to dose Daily INR Metoprolol Weakness and debility PT/OT eval and treat COPD, no acute exacerbation Chronic normocytic anemia, baseline SSS s/p PPM PVD Chronic peripheral neuropathy Home medications reviewed and resumed as indicated. Medical Decision Making 11/16/24: Patient with acute metabolic encephalopathy and sepsis on presentation, in setting of E coli bacteremia, E coli UTI, and E coli pyelonephritis, required ICU transfer to due worsening sepsis with shock, required vasopressors. Covered with broad spectrum abx and IV fluids. ID on consult for abx management, planning for likely 4 weeks IV abx on discharge. Repeat BC obtained yesterday, need to be negative x48 hours. She stabilized and was weaned off vasopressor support, and transferred out of ICU on 11/15/24. She is also followed by cardiology, as patient with elevated troponin, deemed to be type 2 demand related elevation of troponin. Echo with LVEF of 55%. Follow INR, coumadin dosing by pharmacy. PT/OT eval and treat. Encourage PO intake. Labs and vitals reviewed and stable. CBC and BMP in the AM. -DVT prophylaxis: [] Lovenox [] Heparin [] SCDs [x] Encourage ambulation [x] Already on Anticoagulation Anticipated Discharge - Date - 11/18/24 - Location - Skilled Facility - Pending the following - continued improvement. Final abx recs from ID. Toxic drug monitoring/narrow therapeutic index drug monitoring : # Drug name : # Route administered : # Method of monitoring : Extended Emergency Contact Information Primary Emergency Contact: Rey Fagan Mobile Relation: Brother Preferred language: Burkinan Crisis Manager needed? No Secondary Emergency Contact: Jolene Fagan Mobile Relation: Other Preferred language: Burkinan Crisis Manager needed? No Rosanne Waddell DO Division of Hospitalist Medicine Inpatient Medical Services/[facility]: Polly carreon [1] Past Medical History: Diagnosis Date Altered mental status, unspecified Ataxia Atherosclerotic heart disease Bradycardia, unspecified Cognitive communication deficit COPD (chronic obstructive pulmonary disease) (HCC) i was told i had COPD, then I was told i wasn't, i don't know for sure Difficulty walking Dysphagia, oropharyngeal phase Dyspnea Essential (primary) hypertension Gastro-esophageal reflux disease without esophagitis Muscle weakness (generalized) Need for assistance with personal care Other chronic pain Pain in left shoulder Paroxysmal atrial fibrillation (HCC) Peripheral vascular disease, unspecified (HCC) Presence of cardiac pacemaker Repeated falls Sick sinus syndrome (CMS/HCC) (HCC) Unsteadiness on feet Weakness [2] [3] aspirin, 81 mg, Oral, Daily cefTRIAXone, 2,000 mg, IntraVENous, q24h cetirizine, 5 mg, Oral, Daily folic acid, 1 mg, Oral, Daily gabapentin, 200 mg, Oral, TID [Held by provider] isosorbide mononitrate ER, 30 mg, Oral, Daily lisinopril, 5 mg, Oral, Daily metoprolol tartrate, 12.5 mg, Oral, BID montelukast, 10 mg, Oral, Nightly mupirocin, 1 Application, Nasal, BID pantoprazole, 40 mg, Oral, qAM AC pravastatin, 80 mg, Oral, Nightly sodium chloride 0.9%, 5-40 mL, IntraVENous, 2 times per day trospium, 20 mg, Oral, Daily warfarin, 0.5 mg, Oral, Once [facility] Cardiology /Electrophysiology Progress Note HPI / Interval History: Divya Joseph presents to [facility] due to mental status changes. She has a history of coronary artery disease, remote bypass surgery, sick sinus syndrome, s/p placement of a permanent pacemaker, hypertension, paroxysmal atrial fibrillation COPD, anemia, who lives in a SNF. She has been febrile and has been diagnosed with a UTI. CTA of her chest suggestive of possible PE, but of low suspicion in the setting of a therapeutic INR. Vascular US with no evidence of DVT in the BLE. She was seen in consultation with Dr. Day due to elevated troponin up 152 and a BNP of 8,878. She is felt to have a type II NSTEMI in the setting of sepsis and UTI. She has had no chest pain or EKG changes. Echocardiogram 11/14/2024 EF-55%. She been maintaining a SR, anticoagulated on warfarin with a therapeutic- INR 3.4 today. She was transferred to the ICU 11/14 due to hypotension, requiring vasopressor support. Breathing and BP improved, transferred back to [facility] 11/15/2024. Pt states she is comfortable. She continues to deny chest pain or palpitations. I will resume her home medications including low dose metoprolol tartrate 12.5 mg twice daily, and lisinopril 5 mg daily. Will remain off isosorbide for now. Will continue to monitor BP and heart rate. Assessment/Plan HF NYHA Class [] I [] II [] III [] IV []Unable to assess [] N/A Abnormal troponin- no evidence of ACS. Type II NSTEMI in the setting of sepsis and UTI. - has had no complaints of CP free - Echo 11/14 with preserved EF. - low dose aspirin and pravastatin continues 2. Hx of CAD with remote CABG- has remained CP free - will resume cardioprotective meds including lisinopril 5 mg daily and metoprolol tartrate 12.5 mg twice daily as she takes at home. Will continue to monitor BP and heart rate -Imdur 30 mg daily continues to be on hold. - low dose aspirin and pravastatin continue for cardiac risk reduction 3. Elevated BNP- pt appears to be compensated. Comfortable on oxygen NC 2 l/m - remains off diuretic therapy - states she does not wear oxygen normally at the SNF 4. Sepsis- UTI- per ID, IV antibiotics continue 5. Atrial fibrillation- heart rate controlled. I will reorder telemery Anticoagulated on warfarin- INR 3.4 - low dose metoprolol 12.5 mg twice daily continues as noted above Medications: Scheduled Meds[1] Infusion Medications: Continuous Meds[2] Physical Examination: Vitals: 11/15/24 19311/15/24212411/16/24 0500 11/16/24 08 BP: 139/60 (!) 162/71 145/66 BP Location: Right arm Right arm Left arm Patient Position: Lying Sitting Lying Pulse: 66 77 66 Resp: 16 18 Temp: 36.8 C (98.2 F) 36.9 C (98.5 F) 36.8 C (98.2 F) TempSrc: Oral Temporal Temporal SpO2: 98% 95% 96% Weight: 152 lb 9.6 oz (69.2 kg) Height: Intake/Output Summary (Last 24 hours) at 11/16/2024 1152 Last data filed at 11/15/20241938 Gross per 24 hour Intake 50 ml Output 350 ml Net -300 ml Patient Vitals for the past 168 hrs: Weight Weight Method 11/16/24 0500 152 lb 9.6 oz (69.2 kg) Standing scale 11/15/24 0417 165 lb 2 oz (74.9 kg) Bed scale 11/14/24 0740 165 lb (74.8 kg) -- 11/13/24 1924 165 lb 12.6 oz (75.2 kg) Bed scale Physical Exam Constitutional: NAD Psychiatric: Alert. Medical insight good Neck: No JVD Respiratory: Lungs are clear, diminished anteriorly Heart: regular ; Nl S1 and S2, no murmur, no rub, gallop Abdomen: NABS; soft, non-tender, non-distended Extremities: no LE edema Skin: Warm to touch and well perfused Laboratory Tests: TROPONIN I, CONVENTIONAL SENSITIVITY No results found for: CKTOTAL, CKMB, CKMBINDEX, TROPONINI TROPONIN I, HIGH SENSITIVITY Troponin HS Serial Baseline Date Value Ref Range Status 11/13/2024 78 (H) <=14 ng/L Final Comment: In individuals presenting with symptoms > 2h, a baseline troponin <= 5 ng/L suggests acute cardiac injury is unlikely and further serial testing is generally not indicated. 10/28/2024 10 <=14 ng/L Final Comment: In individuals presenting with symptoms > 2h, a baseline troponin <= 5 ng/L suggests acute cardiac injury is unlikely and further serial testing is generally not indicated. 2h Troponin HS (Serial 2nd Troponin) Date Value Ref Range Status 11/13/2024 90 (H) <=14 ng/L Final Comment: Rising or falling troponin delta between 2 - 15 ng/L as compared to baseline value requires a 3rd serial troponin 10/28/2024 12 <=14 ng/L Final Comment: Rising or falling troponin delta below 2 ng/L as compared to baseline value suggests that acute cardiac injury is unlikely. No results found for: TROPDELTBASE 4h Troponin HS (Serial 3rd Troponin) Date Value Ref Range Status 11/13/2024 152 (H) <=14 ng/L Final Comment: 4h troponin (3rd troponin) samples collected between 1h 40 min and 2h and 20 min of the 2h troponin collection time can be utilized to interpret delta troponins as per [employer] algorithms. Samples collected outside this timeframe need to be interpreted clinically. Rising or falling troponin delta greater than 15 ng/L as compared to 2h troponin value is significant for acute cardiac injury. No results found for: TROPDELTSEC Recent Labs 11/13/24 19211/14/24 0516 11/15/2441811/16/24 0515 NA 142 141 141 141 K 3.1* 3.7 3.1* 3.2* CL 109* 108* 100 101 CO2 21* 27 31 29 BUN 11 13 13 23 CREATININE 0.79 0.72 0.79 0.76 Recent Labs 11/14/24 0516 11/14/24199911/15/2441811/16/24 0515 WBC 18.2* -- 8.6 12.8* HGB 8.6* 9.2* 8.5* 9.6* HCT 30.6* -- 28.7* 32.1* MCV 86.0 -- 82.9 81.7 PLT 160 -- 133* 208 Recent Labs 11/14/24 0516 BNP 8,878* No results for input(s): TRIG, HDL, LDLCALC, CHOL in the last 72 hours. No results found for: LDLCHOLESTER Lab Results Component Value Date TSH 0.69 11/14/2024 EF BP Date Value Ref Range Status 11/14/2024 55 55 - 100 % Final 11/13/24 TRANSTHORACIC ECHOCARDIOGRAM (TTE) COMPLETE (CONTRAST/BUBBLE/3D PRN) 11/14/2024 9:04 AM (Final) Interpretation Summary Left Ventricle: Left ventricle size is normal. Mild basal septal thickening. Normal left ventricular systolic function. EF by 2D Simpsons Biplane is 55%. Global longitudinal strain is normal with a value of -19.8%. See diagram for wall motion findings. Grade II diastolic dysfunction with increased LAP. Elevated left ventricular filling pressure. Average E/e' ratio is 14.60. Right Ventricle: Right ventricle size is normal. Pacemaker lead present in the right ventricle. Normal systolic function. Mitral Valve: Mild (1+) regurgitation. Tricuspid Valve: Mild to moderate (1-2+) regurgitation. Mildly elevated RVSP. RVSP is 44 mmHg. Left Atrium: Left atrium size is moderately increased (LA volume index 42-48 mL/m2).LA Vol Index is 37 ml/m2. Aorta: Normal sized sinuses of Valsalva and ascending aorta. There is a small outpouching on the anterior aspect of the aorta with blood flow as per color Doppler interrogation. Based on history and CTA, suspect this is the ostium of a prior CABG anastomosis, reccomend radiographic corrleation if clinicially indicated. Signed by: Rosanne Saunders MD on 11/14/2024 9:04 AM Other reports reviewed: Cardiac Tests: EC11/13/2024- IMPRESSION: SINUS RHYTHM ARTIFACT IN LEAD(S) Abnrm T, consider ischemia, anterolateral lds Tracing reviewed. Telemetry findings reviewed: SR-70's, atrial pacing on demand EF BP Date Value Ref Range Status 11/14/2024 55 55 - 100 % Final Mireya Butler APRN - [facility] Date Of Service 11/16/2024 [1] aspirin, 81 mg, Oral, Daily cefTRIAXone, 2,000 mg, IntraVENous, q24h cetirizine, 5 mg, Oral, Daily folic acid, 1 mg, Oral, Daily gabapentin, 200 mg, Oral, TID [Held by provider] isosorbide mononitrate ER, 30 mg, Oral, Daily [Held by provider] lisinopril, 5 mg, Oral, Daily [Held by provider] metoprolol tartrate, 25 mg, Oral, BID montelukast, 10 mg, Oral, Nightly mupirocin, 1 Application, Nasal, BID pantoprazole, 40 mg, Oral, qAM AC pravastatin, 80 mg, Oral, Nightly sodium chloride 0.9%, 5-40 mL, IntraVENous, 2 times per day trospium, 20 mg, Oral, Daily warfarin, 0.5 mg, Oral, Once [2] Images from the original note were not included. PHYSICAL THERAPY [facility] Treatment Note Name/MRN: Divya Joseph ([id number]) Date of : 1950 Age: 74 y.o. Room/Bed: B4458/B4458 A Visit #: 1 out of 5 Discharge Recommendation: Long Term Facility Equipment Needed: No Prior Level of Function Prior Level of ADL Function: Required Assist Prior Level of Mobility: Required Assist; Device: Wheelchair - manual Prior Level of Transfers: Required Assist Assessment Pt demos improvement in functional mobility and progress toward therapy goals. Pt requires SBA for bed mobility, CGA to min A for functional transfers, min A for short distance ambulation with FWW. Pt is currently limited by weakness, fatigue and will benefit from acute skilled PT to address current deficits. Recommend SNF. Subjective Pt very pleasant and agreeable to therapy session Pain: BLE pain; does not rate Medical Precautions: No active isolations Proper PPE donned/doffed in accordance with facility standards. Fall Risk: [place] Fall Risk Score: 100 (High Risk) Precautions/Restrictions: N/A Overall Cognitive Status: WFL Overall Orientation Status: Oriented x4 Family/Caregiver Present: none Objective Bed Mobility Supine to sit: SBA Sit to supine: SBA Pt completes bed mobility at SBA with HOB elevated and use of bed rails. Increased time and effort to complete. Pt self-assists BLE into bed to return to supine. Transfers/Mobility Sit to stand: Contact Guard, Min Assist Stand to sit: Contact Guard Stand step: Min Assist Pt completes sit->stand from EOB to FWW requiring min A x1 to elevate. Pt completes stand step transfer from EOB->BSC requiring min A for general stability and cues for alignment to surface. Pt completes sit<->stand from BSC at CGA with cues provided for hand placement. Device(s) used: Front wheeled walker Ambulation Ambulation 1 Assistive device(s) used: Front wheeled walker Assist level: Min Assist Distance (ft): ~3 feet x1 Quality of gait: No LOB, reciprocal stepping, slow rashard Pt demos short, reciprocal gait pattern, decreased gait speed. Pt requires min A x1 for general stability. Increased time to complete short distance ambulation. Balance During Session: Posture: fair Sitting - Static: Supervision Sitting - Dynamic: Supervision Standing - Static: Contact Guard Standing - Dynamic: Contact Guard Pt completes x2 bouts of static and dynamic standing balance reaching outside MARIA ELENA with no UE assist for LB dressing requiring CGA for safety. Plan Continue acute PT per plan of care. Safety/Education Safety Safety Devices in place: All fall risk precautions in place, call light within reach, left in bed, gait belt, patient at risk for falls, nurse notified, and no alarms engaged upon entry Restraints: N/A Education Education Given To: patient Education Provided: PT Role, PT Goals, Gait Training, Plan of Care, Transfer Training, Equipment, and Benefits of Increasing Activity Education Method: Verbal and Demonstration Barriers to Learning: None Education Outcome: Verbalized Understanding, Demonstrated Understanding, and Continued Education Needed Outcome Measures AM-PAC AM-PAC Inpatient Mobility Raw Score (No Stairs) : 15 JH-HLM JH-HLM Scale: Static standing (1 or more minutes) Goals Patient Stated Goal: to walk Encounter Problems Encounter Problems (Active) Balance Patient will maintain dynamic standing balance for 2 minutes with SBA in order to demonstrate decreased risk of falling. (Progressing) Start: 11/15/24 Expected End: 11/22/24 Exercise Patient will complete lower extremity exercises for 1-2 sets / 5-10 reps in order to improve strength and activity tolerance for mobility. (Not Addressed) Start: 11/15/24 Expected End: 11/22/24 Mobility Patient will ambulate 20 feet with CGA and rolling walker in order to improve safety and independence with mobility. (Progressing) Start: 11/15/24 Expected End: 11/22/24 Transfers Patient will perform bed mobility with modified independence in order to improve independence and prepare for out of bed mobility. (Progressing) Start: 11/15/24 Expected End: 11/22/24 Patient will complete sit to stand transfer with SBA to rolling walker in order to improve safety and prepare for out of bed mobility. (Progressing) Start: 11/15/24 Expected End: 11/22/24 Therapy Time Individual Co-treatment Time In 0945 Time Out 0959 Minutes 14 Timed Code Treatment Minutes: 12 Minutes (ther act x1) Gabriella Bagley PT Images from the original note were not included. Speech-Language Pathology SPEECH LANGUAGE PATHOLOGY [facility] Dysphagia Treatment Note Patient Name: Divya Joseph Evaluation Date: 11/16/2024 Date of : 1950 Admission Date: 11/13/2024 9:27 AM Age: 74 y.o. [facility]: [facility] A Subjective Patient alert and cooperative (after second attempt, sleeping sound at 8am). Seen upright in bed, after assist with repositioning. Answers all basic questions with clear vocal quality. Follows all basic commands. No visitors at bedside. Spoke with RN Deacon who cleared pt for treatment. Current Diet: Dietary Orders (From admission, onward) Start Ordered 11/15/24 1109 Adult diet Easy to Chew; Gluten Free Diet effective now Question Answer Comment Diet type Easy to Chew Other restriction(s): Gluten Free 11/15/24 1109 11/14/24 1452 Supplement:Dinner; Vanilla Magic Cup Until discontinued Question Answer Comment Frequency Dinner Select supplement: Vanilla Magic Cup 11/14/24 1451 Oxygen: Oxygen Therapy: Supplemental oxygen O2 Delivery Method: Nasal cannula O2 Flow Rate (L/min): 2 L/min Limited appetite this am. Pain: Pt denies any current pain. PPE Worn: gloves Objective & Assessment Dysphagia Treatment Dysphagia Activity 1: Assess tolerance of recommended diet Pt continue with decreased appetite. Particular with food choices and things that she like. Pt took few bites of peaches, they don't taste right. 2 small bites of eggs. Dislike. Pt is able to manage without dentures with very soft foods. Encourage use of dentures during more solid foods. She was agreeable to this. Dentures placed close to bedside so they are available for lunch meal. Occasional cough continues. Not during intake. +functional airway protection during MBSS without pharyngeal residuals post swallow. Oral deficits with mastication only. Plan & Recommendations Plan: continue Easy to chew diet, GLUTEN free for pt max diet at this time. Limited denture wearing d/t sore in mouth. Use denture adhesive to assist with tolerance of dentures and wash between meals as necessary. Recommend Easy to chew solids and Thin liquids and meds whole in puree, or break larger pills into pieces with drink and the following precautions: - Upright positioning for all PO intake - Slow rate of intake - Small bites/sips - Rest periods during meals - Encourage dentures for solid textures/each meal D/C Recommendations: No follow up therapy recommended post discharge Education Education Given: swallowing strategies Given To: patient Response: verbalizes understanding Goals Patient Stated Goal: To eat what I want. 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 Medical History[1] Patient is on warfarin for Afib and has a goal INR 2.0 - 3.0. Warfarin is currently managed by [facility]. Pt's home dose of warfarin is 2.5mg daily per [place] at the facility. Pt's last INR in the clinic was 2.6 on 10/29. S/sx of bleeding= hgb 9.6 . Noted bruises/bleeds easily on physical inspection with small amount of epistaxis 11/14. Interacting medications= ASA 81 mg , pravastatin 80 mg (home med)., dexamethasone 6 mg injection every 6 hours (last dose to end 11/15/24 at 1330). Labs: Recent Labs 11/14/24 0516 11/14/24 2000 11/15/24 0419 11/16/24 0515 HGB 8.6* 9.2* 8.5* 9.6* HCT 30.6* -- 28.7* 32.1* PLT 160 -- 133* 208 Recent Labs 11/16/24 0515 INR 3.4* Date INR Dose 11/16 3.4 0.5mg 11/15 3.3 1 mg 11/14 2.3 2.5mg 11/13 2.3 4mg Assessment/Plan: 1. INR is supratherapeutic today. Will give subsequent low-dose decrease of 0.5 mg today . 2. Monitor for s/s of bleeding and drug interactions. Will adjust dose accordingly. 3. Warfarin is managed by [facility] outpatient. [facility] will manage inpatient and sign off at discharge. John Bailey PharmD [facility] Consult Service is available daily [phone] via [employer] Secure Chat. [1] Past Medical History: Diagnosis Date Altered mental status, unspecified Ataxia Atherosclerotic heart disease Bradycardia, unspecified Cognitive communication deficit COPD (chronic obstructive pulmonary disease) (HCC) i was told i had COPD, then I was told i wasn't, i don't know for sure Difficulty walking Dysphagia, oropharyngeal phase Dyspnea Essential (primary) hypertension Gastro-esophageal reflux disease without esophagitis Muscle weakness (generalized) Need for assistance with personal care Other chronic pain Pain in left shoulder Paroxysmal atrial fibrillation (HCC) Peripheral vascular disease, unspecified (HCC) Presence of cardiac pacemaker Repeated falls Sick sinus syndrome (CMS/HCC) (HCC) Unsteadiness on feet Weakness [facility] Geriatric Medicine Inpatient Consult Service Admission Date: 11/13/2024 Assessment Principal Problem: Transient alteration of awareness Plan Acute Metabolic Encephalopathy --Resolved, alert and oriented times 3 today --Etiology likely acute illness (sepsis-on Rocephin, respiratory failure) --Encourage PO intake, time up in chair, family visits, and sleep hygiene --If agitated, assess for and consider treating for pain --QTc= 473 ms on 11/13/24 --No antipsychotic unless patient is danger to self/others/treatment --Continue PRN melatonin at HS-has not used --Monitor for constipation/urinary retention - last BM 11/10 per patient --Possible medication contributions: none -Received Benadryl 11/13 Recommend trying to avoid if possible due to risk for confusion, lethargy. -PRN Robaxin-used last 11/16 --Brother reported no significant baseline memory concerns -- B12 WNL 338 on 11/14/24 and TSH WNL 0.69 on 11/14/24 Debility --contributing factors include COPD, chronic pain, medications --lives at [facility]. Propels self in w/c at baseline. --History of falls hitting head last week. CT head on 11/13/24-no acute abnormality. --Continue PT/OT while in patient. Therapy recommending SNF . Patient agreeable to rehab today if needed --Recently started on Methocarbamol at her facility for back pain-monitor for cognition closely/side effects. Consider low dose Tizanidine as an alternative. Dysphagia --ST following - recommend easy to chew solids and thin liquids, meds as tolerated --MBSS no laryngeal penetration or airway aspiration IBS --takes Dicyclomine 20mg TID at facility --Recommend decreasing/stopping due to risk of anticholinergic side effects. Not currently ordered. --denies abdominal pain today Chronic constipation --patient reports normal BM pattern every 10 days. --Continue Miralax as needed --no BM documented since admission, patient reports last BM 11/10 --Educated on use of bowel regimen - she declines due to concern for diarrhea Neuropathy --takes Gabapentin 200mg TID at facility --currently on Gabapentin 100mg BID and 200mg HS. Discussed with primary and will resume home dose gabapentin 200mg TID --reports neuropathy pain today is to her hands, feet and legs-she feels the gabapentin helps. OAB --takes Oxybutynin at facility. --Recommend alternative with less anticholinergic side effects versus stopping and monitoring symptoms. --currently on Trospium Follow-up: will follow with you Subjective Chief Complaint: Chief Complaint Patient presents with Altered Mental Status From [facility]. With AMS. Pt c/o of not feeling well. Pt with abd pain. Axo x 3 pt with temp of 100.3 Geriatrics consulted for impaired cognition HPI- The patient is new to me but seen by the Geriatric Inpatient Consult team. 74 y.o. year-old female with PMH of COPD, CAD s/p CABG, SSS s/p pacemaker, Dysphagia, HTN, GERD, Chronic pain, atrial fibrillation, repeated falls, PVD, anxiety, depression presented to the hospital from [facility] on 11/13/24 with complaints of mental status change and fever. Admitted with sepsis with acute hypoxic respiratory failure, possible UTI. CT chest showed possible right upper lobe PE. Exam limited by motion artifact. Pulmonology felt likely motion artifact and not PE. Has been on Warfarin. Found to have E.Coli bacteremia. ID following. Cardiology following- likely type II NSTEMI in setting of sepsis and UTI. Per initial geriatric consult, patient's brother reports patient's memory is good at baseline, no concerns. Needs assistance with bathing, dressing and uses a wheelchair. Independent in all other ADLs. Needs assistance with all IADLs except able to use the telephone independently. Interval History: Transferred to general medical/surgical floor . Patient today reprots she slept okay last night. Reports occasional cough today. States her neuropathy pain was bad yesterday, feels the gabapentin helps. Neuropathy pain mostly in her hands, feet and legs. Reports ate some for breakfast, enjoyed her coffee. Denies any abdominal pain, reports passing flatus. Last BM 11/10, Tuesday. Decline to take PRN Miralax as concern it will cause her diarrhea. Discussed with nurse, patient has been cooperative with medications. No agitation or behaviors noted. Progress notes reviewed: -Per ID, predict treatment with 4 weeks of ceftriaxone, if today's blood cultures negative, followed by surveillance blood cultures after completion of antimicrobial -seen by speech therapy, recommend easy to chew solids and thin liquids, meds as tolerated PRN meds in past 24 hours: Robaxin times 1 on 11/16 Labs: 11/16: Sodium 141, potassium 3.2, BUN 23, Creatinine 0.76 11/16: WBC 12.8, Hgb 9.6, Platelets 208 MBSS 11/14: no laryngeal penetration or airway aspiration 11/15: Seen by OT. Recommending SNF 11/15: Seen by PT. Transfers min assist. Did not ambulate this session. Recommending SNF. Review of Systems Constitutional: Positive for appetite change. Negative for chills, diaphoresis and fever. Respiratory: Positive for cough. Negative for shortness of breath. Cardiovascular: Negative for chest pain and leg swelling. Gastrointestinal: Positive for constipation. Negative for abdominal distention, abdominal pain, diarrhea and nausea. Genitourinary: Negative for difficulty urinating. Musculoskeletal: Positive for gait problem. Negative for arthralgias. Neuropathy Neurological: Positive for weakness. Negative for dizziness, light-headedness and headaches. Psychiatric/Behavioral: Negative for confusion, dysphoric mood and sleep disturbance. The patient is not nervous/anxious. Objective BP 145/66 (BP Location: Left arm, Patient Position: Lying) Pulse 66 Temp 36.8 C (98.2 F) (Temporal) Resp 18 Ht 5' 3 (1.6 m) Wt 152 lb 9.6 oz (69.2 kg) SpO2 96% BMI 27.03 kg/m Intake/Output Summary (Last 24 hours) at 11/16/2024 0949 Last data filed at 11/15/2024 1939 Gross per 24 hour Intake 50 ml Output 350 ml Net -300 ml Wt Readings from Last 3 Encounters: 11/16/24 152 lb 9.6 oz (69.2 kg) Current Medications[1] Physical Exam Vitals reviewed. Constitutional: General: She is not in acute distress. Comments: Pleasant female sitting up in bed, wearing oxygen via NC, NAD. No conversational dyspnea. Just finishing breakfast Eyes: General: Right eye: No discharge. Left eye: No discharge. Conjunctiva/sclera: Conjunctivae normal. Cardiovascular: Rate and Rhythm: Normal rate and regular rhythm. Pulmonary: Effort: Pulmonary effort is normal. No respiratory distress. Breath sounds: Normal breath sounds. No wheezing or rales. Comments: Anteriorly auscultated Abdominal: General: Bowel sounds are normal. There is no distension. Palpations: Abdomen is soft. Tenderness: There is no abdominal tenderness. There is no guarding. Musculoskeletal: Right lower leg: No edema. Left lower leg: No edema. Skin: General: Skin is warm and dry. Neurological: Mental Status: She is alert and oriented to person, place, and time. Sensory: Sensory deficit (decrease sensation to BLE) present. Psychiatric: Attention and Perception: Attention normal. Mood and Affect: Mood normal. Behavior: Behavior normal. Behavior is cooperative. Comments: Appropriate in conversation Labs and Imaging: Recent Results (from the past 24 hours) CBC auto differential Collection Time: 11/16/24 5:15 AM Result Value Ref Range Auto WBC 12.8 (H) 3.6 - 10.7 10*3/uL RBC 3.93 3.80 - 5.20 10*6/uL Hemoglobin 9.6 (L) 11.7 - 16.0 g/dL Hematocrit 32.1 (L) 35.0 - 47.0 % MCV 81.7 77.0 - 99.0 fL MCH 24.4 (L) 26.0 - 34.0 pg MCHC 29.9 (L) 30.5 - 36.0 % RDW 19.9 (H) 11.5 - 15.0 % Platelets 208 140 - 440 10*3/uL MPV 12.1 9.0 - 12.7 fL nRBC 0.0 0.0 - 2.0 /100 WBCs Neutrophils Relative 90.0 (H) 38.0 - 82.0 % Lymphocytes Relative 6.3 (L) 15.0 - 45.0 % Monocytes Relative 2.9 (L) 5.0 - 13.0 % Eosinophils Relative 0.0 0.0 - 6.0 % Basophils Relative 0.2 0.0 - 2.0 % Immature Grans % 0.6 0.0 - 2.0 % Neutrophils Absolute 11.5 (H) 1.8 - 7.5 10*3/uL Lymphocytes Absolute 0.8 (L) 1.0 - 4.3 10*3/uL Monocytes Absolute 0.4 0.0 - 0.9 10*3/uL Eosinophils Absolute 0.0 0.0 - 0.5 10*3/uL Basophils Absolute 0.0 0.0 - 0.2 10*3/uL Immature Grans Absolute 0.1 (H) <0.1 10*3/uL Magnesium Collection Time: 11/16/24 5:15 AM Result Value Ref Range MAGNESIUM 2.2 1.6 - 2.6 mg/dL Phosphorus Collection Time: 11/16/24 5:15 AM Result Value Ref Range PHOSPHORUS 2.2 (L) 2.3 - 4.7 mg/dL Protime-INR Collection Time: 11/16/24 5:15 AM Result Value Ref Range PROTHROMBIN TIME 34.3 (H) 9.0 - 12.0 s INR 3.4 (H) 0.9 - 1.1 Basic metabolic panel Collection Time: 11/16/24 5:15 AM Result Value Ref Range SODIUM 141 136 - 145 mmol/L POTASSIUM 3.2 (L) 3.5 - 5.1 mmol/L CHLORIDE 101 98 - 107 mmol/L CARBON DIOXIDE 29 23 - 31 mmol/L UREA NITROGEN 23 9 - 23 mg/dL CREATININE 0.76 0.57 - 1.11 mg/dL GLUCOSE 159 (H) 82 - 115 mg/dL CALCIUM 8.8 8.8 - 10.0 mg/dL ANION GAP 11 3 - 13 mmol/L eGFR 82.3 >60.0 mL/min/1.73m*2 Lab Results Component Value Date TSH 0.69 11/14/2024 Lab Results Component Value Date [id number] 338 11/14/2024 No results found for: VITD25 Reviewed: allergies, previous encounters, active problem lists, medications, and labs [1] Current Facility-Administered Medications: acetaminophen (Tylenol) tablet 650 mg, 650 mg, Oral, q6h PRN, Jordana Aguayo DO, 650 mg at 11/13/24 2349 albuterol (2.5 MG/3ML) 0.083% nebulizer solution 2.5 mg, 2.5 mg, Nebulization, q4h PRN, Jordana Aguayo DO aspirin chewable tablet 81 mg, 81 mg, Oral, Daily, Jordana Aguayo DO, 81 mg at 11/15/24 0849 cefTRIAXone (Rocephin) 2,000 mg in sodium chloride 0.9 % 50 mL IVPB Mini-Bag Plus, 2,000 mg, IntraVENous, q24h, Cortez Rodríguez MD, Stopped at 11/15/24 1917 cetirizine (ZyrTEC) tablet 5 mg, 5 mg, Oral, Daily, Jordana Aguayo DO, 5 mg at 11/15/24 0849 folic acid (Folvite) tablet 1 mg, 1 mg, Oral, Daily, Jordana Aguayo DO, 1 mg at 11/15/24 0849 gabapentin (Neurontin) capsule 200 mg, 200 mg, Oral, TID, Estela Boyer, SNAPPER ON - [employer] DAT[employer]ASE ADMINISTRATOR [Held by provider] isosorbide mononitrate ER (Imdur) 24 hr tablet 30 mg, 30 mg, Oral, Daily, Jordana Aguayo DO [Held by provider] lisinopril tablet 5 mg, 5 mg, Oral, Daily, Jordana Aguayo DO melatonin tablet 3 mg, 3 mg, Oral, Nightly PRN, Jordana Aguayo DO methocarbamol (Robaxin) tablet 500 mg, 500 mg, Oral, q8h PRN, Jordana Aguayo DO, 500 mg at 11/16/24 0518 [Held by provider] metoprolol tartrate (Lopressor) tablet 25 mg, 25 mg, Oral, BID, Jordana Aguayo DO montelukast (Singulair) tablet 10 mg, 10 mg, Oral, Nightly, Jordana Aguayo DO, 10 mg at 11/15/242007 mupirocin (Bactroban) 2 % ointment 1 Application, 1 Application, Nasal, BID, Jordana Aguayo DO, 1 Application at 11/15/242007 nitroglycerin (Nitrostat) SL tablet 0.4 mg, 0.4 mg, SubLINGual, q5 min PRN, Jordana Aguayo DO ondansetron ODT (Zofran-ODT) disintegrating tablet 4 mg, 4 mg, Oral, q8h PRN OR ondansetron (Zofran) injection 4 mg, 4 mg, IntraVENous, q6h PRN, Jordana Aguayo DO, 4 mg at 11/14/24 182 pantoprazole (ProtoNix) EC tablet 40 mg, 40 mg, Oral, qAM AC, Jordana Aguayo DO, 40 mg at 11/16/24 0518 polyethylene glycol (PEG) 3350 (Miralax) packet 17 g, 17 g, Oral, Daily PRN, Jordana Aguayo DO potassium chloride CR (Klor-Con M10) ER tablet 40 mEq, 40 mEq, Oral, Once, Rosanne Waddell DO pravastatin (Pravachol) tablet 80 mg, 80 mg, Oral, Nightly, Jordana Aguayo, , 80 mg at 11/15/242007 sodium chloride 0.9 % infusion, 5-250 mL/hr, IntraVENous, PRN, Jordana Aguayo, sodium chloride 0.9% (NS) flush 5-40 mL, 5-40 mL, IntraVENous, 2 times per day, Jordana Jiangmann, DO, 10 mL at 11/15/242008 sodium chloride 0.9% (NS) flush 5-40 mL, 5-40 mL, IntraVENous, PRN, Jordana Aguayo DO trospium (Sanctura) tablet 20 mg, 20 mg, Oral, Daily, Jordana Aguayo, , 20 mg at 11/15/24 0849 warfarin (Coumadin) tablet 0.5 mg, 0.5 mg, Oral, Once, Carlos Chen MD Images from the original note were not included. [facility] - Infectious Diseases Attending Progress Note Subjective: Follow up for septic shock, E coli bacteremia and E coli UTI with hydroureter. She was alert, sitting on a chair, felt better, overnight developed respiratory distress, Imaging consistent with pulmonary edema, She received 1x dose Lasix with resolution ; c/o non-productive cough, chills and suprapubic pain decreased, on 2 L O2, she appeared ill. She was admitted on 11/13/24 from SNF with altered mental status, fever, abdominal pain, difficulty urination; on presentation in ED, her temp was 100.3 F, then, spiked to 100.9 F, was tachypneic (R 24); labs showed leukocytosis 12.7 k, pyuria with >100 wbc, lactic acidosis 2.9 that increased to 3.4, ceftriaxone was given; was initially admitted to [facility] for infectious work up and empiric antibiotics, she became hypotensive requiring vasopressor support and was transferred to ICU. She has h/o CAD, CABG, HTN, A-fib, SSS requiring PPM, PVD, COPD, Anemia, Dysphagia, Debility. She was examined; notes, labs, imaging were reviewed; treatment plan was discussed; clinical informations were documented in electronic record. Objective: Vitals: Patient Vitals for the past 24 hrs: BP Temp Temp src Pulse Resp SpO2 Weight 11/15/24 1349 124/60 -- -- 71 17 91 % -- 11/15/24 1203 149/91 -- -- 66 12 96 % -- 11/15/24 1102 109/71 -- -- 77 19 95 % -- 11/15/24 1020 137/67 -- -- 65 19 96 % -- 11/15/24 0907 -- -- -- 66 20 95 % -- 11/15/24 0903 142/67 -- -- 70 20 93 % -- 11/15/24 0803 142/67 36.9 C (98.5 F) -- 77 24 95 % -- 11/15/24 0702 134/64 -- -- 75 24 98 % -- 11/15/24 0602 132/62 -- -- 71 (!) 26 97 % -- 11/15/24 0502 133/74 -- -- 73 24 97 % -- 11/15/24 0417 115/55 36.8 C (98.2 F) Oral 71 22 96 % 74.9 kg (165 lb 2 oz) 11/15/24 0405 108/59 -- -- 69 (!) 26 93 % -- 11/15/24 0303 127/56 -- -- 78 20 96 % -- 11/15/24 0203 126/50 -- -- 81 23 96 % -- 11/15/24 0103 138/56 -- -- 84 (!) 26 97 % -- 11/15/24 0002 138/61 -- -- 85 (!) 27 95 % -- 11/14/24 2347 146/70 36.9 C (98.4 F) Oral 89 24 97 % -- 11/14/24 2301 150/67 -- -- 90 (!) 28 98 % -- 11/14/24 2202 (!) 134/114 -- -- 111 (!) 33 96 % -- 11/14/24 2102 (!) 166/68 -- -- 105 21 97 % -- 11/14/242018 160/68 -- -- 98 (!) 37 97 % -- 11/14/24 1916 (!) 169/73 36.7 C (98.1 F) Oral 107 (!) 36 95 % -- 11/14/24 1903 (!) 170/78 -- -- 108 (!) 39 100 % -- 11/14/24 1833 137/88 -- -- 103 (!) 30 98 % -- 11/14/24 1732 126/79 -- -- 105 20 99 % -- 11/14/24 1702 139/75 -- -- 100 (!) 28 100 % -- Physical Exam Vitals and nursing note reviewed. Constitutional: General: She is awake. She is in acute respiratory distress. Appearance: She is well-developed. She is not toxic-appearing or diaphoretic. HENT: Head: Normocephalic and atraumatic. Right Ear: External ear normal. Left Ear: External ear normal. Nose: Nose normal. Mouth/Throat: Mouth: Mucous membranes are dry. Pharynx: Oropharynx is clear. Comments: Edentulous Eyes: Extraocular Movements: Extraocular movements intact. Conjunctiva/sclera: Conjunctivae normal. Pupils: Pupils are equal, round, and reactive to light. Neck: Vascular: No JVD. Trachea: No tracheal deviation. Cardiovascular: Rate and Rhythm: Normal rate and irregular rhythm. Pulses: Normal pulses. Heart sounds: Normal heart sounds. Pulmonary: Effort: Tachypnea present. +audible wheeze, + respiratory distress decreased. Breath sounds: Normal breath sounds. Abdominal: General: There is no distension or abdominal bruit. Palpations: Abdomen is soft. Tenderness: There is abdominal tenderness in the right lower quadrant, left lower quadrant and suprapubic area decreased. There is no guarding or rebound. Hernia: No hernia is present. Musculoskeletal: General: Tenderness present. Right lower leg: Edema present. Left lower leg: Edema present. Comments: Left greater then right LE edema Skin: General: Skin is warm and dry. Capillary Refill: Capillary refill takes less than 2 seconds. Coloration: Skin is not cyanotic. Nails: There is no clubbing. Comments: Skin hot Neurological: General: No focal deficit present. Mental Status: She is alert and oriented to person, place, and time. Sensory: Sensation is intact. Motor: Motor function is intact. Psychiatric: Mood and Affect: Mood normal. Behavior: Behavior normal. Behavior is cooperative. Labs: Recent Labs 11/13/2451 11/13/24192511/14/2451511/15/249 NA 142 142 141 141 K 3.1* 3.1* 3.7 3.1* CL 105 109* 108* 100 CO2 27 21* 27 31 BUN 9 11 13 13 CREATININE 0.85 0.79 0.72 0.79 GLUCOSE 152* 141* 108 168* CALCIUM 8.6* 7.5* 8.7* 8.8 PROT 6.5 -- 5.3* 6.1* BILITOT 0.9 -- 0.6 0.6 ALKPHOS 66 -- 54 52 AST 34* -- 32 32 ALT 11 -- 7 10 Recent Labs 11/13/2451 11/14/2451511/14/24199911/15/24 0419 WBC 12.7* 18.2* -- 8.6 HGB 11.2* 9.8* 8.6* 9.2* 8.5* HCT 34.2* 30.6* -- 28.7* PLT 184 160 -- 133* LYMPHOPCT 6* 12* -- 3* MONOPCT 3* 3* -- 1* Micro: No results for input(s): COVID19 in the last 72 hours. 11/15/2024 0435 11/15/2024900 Blood culture Site #2 - Assess for effectiveness of treatment [[id number]] Blood, Venous Preliminary result Component Value Blood Culture Blood culture incubation started P 11/15/202442711/15/2024900 Blood culture Site #1 - Assess for effectiveness of treatment [[id number]] Blood, Venous Preliminary result Component Value Blood Culture Blood culture incubation started P 11/14/2024212411/15/2024 033 Legionella and Streptococcus Urine Antigen [[id number]] Urine, Clean Catch Final result Component Value No component results 11/14/2024212411/15/2024334 Legionella and Streptococcus Urine Antigen [[id number]] Urine, Clean Catch Final result Component Value Legionella pneumophila Ag Not Detected Streptococcus pneumoniae Ag Not Detected 11/13/2024 1022 11/15/2024 1110 Urine culture [[id number]] (Abnormal) Urine, Clean Catch Final result Component Value Urine Culture >100,000 CFU/mL Escherichia coli Abnormal 11/13/2024 1009 11/15/2024 0951 Blood culture Site #2 - Suspected Infection [[id number]] (Abnormal) Blood, Venous Final result Component Value Blood Culture Escherichia coli Panic For identification and/or sensitivity, refer to culture collected on: 11/13/2024 at 1008 ([id number]). This is an edited result. Previous organism was Gram-negative bacilli on 11/14/2024 at 1514 EDT. 11/13/2024 1008 11/15/2024 0951 Blood culture Site #1 - Suspected Infection [[id number]] (Abnormal) Blood, Venous Final result Component Value Blood Culture Escherichia coli Panic 11/13/2024 1008 11/14/2024 0007 Blood Culture Identification - Anaerobic [[id number]] (Abnormal) Blood, Venous Final result Component Value Escherichia coli Detected Abnormal 11/13/2024 0959 11/13/2024 1056 SARS-CoV-2, Flu A/B, and RSV Combo [[id number]] Swab from Nasopharynx Final result Component Value SARS-CoV-2 Not Detected Respiratory Syncytial Virus Not Detected Influenza A Not Detected Influenza B Not Detected 11/13/2024 0958 11/13/2024 2125 Respiratory Pathogens Panel by PCR [[id number]] Swab from Nasopharynx Final result Component Value SARS-CoV-2 Not Detected Adenovirus Not Detected Coronavirus HKU1 Not Detected Coronavirus NL63 Not Detected Coronavirus 229E Not Detected Coronavirus OC43 Not Detected Human Metapneumovirus Not Detected Human Rhinovirus/Enterovirus Not Detected Influenza A Not Detected Influenza B Not Detected Parainfluenza 1 Not Detected Parainfluenza 2 Not Detected Parainfluenza 3 Not Detected Parainfluenza 4 Not Detected Respiratory Syncytial Virus Not Detected Bordetella pertussis Not Detected Bordetella parapertussis Not Detected Chlamydia pneumoniae Not Detected Mycoplasma pneumoniae Not Detected Lines: PIV site ok Radiography/Echo/Other: XR chest 1 view [[id number]] Collected: 11/14/242005 Order Status: Completed Updated: 11/14/242042 Narrative: Patient Name: DIVYA JOSEPH : 1950 Exam Date/Time: 11/14/2024 19:51 Procedure: XR CHEST 1 VIEW Ordering Provider: TOBAR TIMOTHY Reason For Exam: Shortness of breath INDICATION: Shortness of breath. VIEWS: Portable AP upright chest COMPARISON: 11/13/2024; CT chest 11/13/2024 at 10:51 FINDINGS: The trachea is midline. The cardiac silhouette is within normal limits. Median sternotomy wires are present. A dual-chamber cardiac device overlies the left mid hemithorax. There is a jwsoj-ya-bozcrhha layering left pleural effusion. Suspect a small right pleural effusion. Moderate to severe centrilobular emphysema is present. There is thickening of the interstitium which is new and/or increased compared to prior exam. Residual contrast is present within the stomach. Impression: 1. Kowzm-jd-nxpjrrzc layering LEFT pleural effusion. 2. Suspect small RIGHT pleural effusion. 3. Moderate to severe centrilobular emphysema with suspected superimposed interstitial edema. Report Dictated on Electronically Signed By: Alanna Stewart MD Electronically Signed Date/Time: 11/14/2024 8:10 PM EDT FL modified barium with video and speech [[id number]] Collected: 11/14/24 1346 Order Status: Completed Updated: 11/14/24 1416 Narrative: Patient Name: DIVYA JOSEPH : 1950 Exam Date/Time: 11/14/2024 13:05 Procedure: FL MODIFIED BARIUM WITH VIDEO AND SPEECH Ordering Provider: AGUAYO KELLY Reason For Exam: concern for aspiration MODIFIED BARIUM SWALLOW (COOKIE SWALLOW) CLINICAL INDICATION: Dysphagia. Cough with oral intake. COMPARISON: None. FLUOROSCOPY DOSE: Ka,r= 21.65 mGy TECHNIQUE: The procedure was performed in conjunction with speech therapy. Barium mixtures of various consistencies were given under fluoroscopy with the patient in the sitting lateral position. FINDINGS: Preparatory phase decreased oral motor skills. Oral phase shows decreased AP transit. There are increased oral and tongue base residuals. Pharyngeal phase coating of the pharyngeal long. There is hypertrophy of the cricopharyngeus. There is no laryngeal penetration or airway aspiration. Impression: 1. No laryngeal penetration or airway aspiration. 2. Hypertrophy of the cricopharyngeus. Please refer to the speech pathologist's report for additional comments and recommendation. Report Dictated on Electronically Signed By: Rosanne Mir MD Electronically Signed Date/Time: 11/14/2024 2:[address] abdomen pelvis w contrast [[id number]] Collected: 11/13/24 1115 Order Status: Completed Updated: 11/13/24 1123 Narrative: Patient Name: DIVYA JOSEPH : 1950 Exam Date/Time: 11/13/2024 10:55 Procedure: CT ABDOMEN PELVIS W CONTRAST Ordering Provider: ACOSTA YASMIN Reason For Exam: Abdominal pain, acute, nonlocalized EXAMINATION: CT ABDOMEN PELVIS W CONTRAST CLINICAL HISTORY: Abdominal pain, acute, nonlocalized COMPARISON: None TECHNIQUE: Contiguous axial images were obtained through the abdomen and pelvis from the level of the diaphragmatic domes through the pubic symphysis following bolus administration of intravenous contrast. Dose reduction was employed with automated exposure control. FINDINGS: Included images of the lower thorax: Small bilateral pleural effusions are noted, left greater than right. There is dependent atelectasis in the bilateral lung bases. Hepatobiliary: Unremarkable liver without biliary dilation evident. The gallbladder is surgically absent. Pancreas: Unremarkable Spleen: Unremarkable Adrenal Glands: Unremarkable Kidneys and ureters: Right renal cyst is noted. There is mild right-sided hydroureter. Abdominal vasculature: Atherosclerotic wall calcifications are present without aneurysm. GI tract: No evidence of obstruction. The appendix is normal. Peritoneum and retroperitoneum: No free fluid or free air is noted. Lymph Nodes: No abdominal lymphadenopathy is evident. 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 There is grade 1 anterolisthesis of L5 on S1. Impression: 1. Small bilateral pleural effusions, left greater than right. 2. Mild right-sided hydroureter. Report Dictated on Electronically Signed By: Wong Srinivasan MD Electronically Signed Date/Time: 11/13/2024 11:[address] chest angiogram w and/or wo IV contrast [[id number]] Collected: 11/13/24 1122 Order Status: Completed Updated: 11/13/24 1130 Narrative: [facility] 1950 [id number] Exam Date/Time: 11/13/2024 10:55 Procedure: CT CHEST ANGIOGRAM W AND/OR WO IV CONTRAST Ordering Provider: ACOSTA YASMIN Reason For Exam: Pulmonary embolism (PE) suspected, high prob CT ANGIOGRAPHY CHEST: CLINICAL INDICATION: Pulmonary embolism (PE) suspected, high prob TECHNIQUE: Transaxial sequence from apices through the bases during dynamic intravenous infusion of contrast media, injected at a high flow rate. Multiplanar and 3D MIP reconstruction was performed concurrently on an independent viewing workstation. Dose reduction was employed with automated exposure control. COMPARISON: None FINDINGS: Lungs: No consolidation or atelectasis. No parenchymal or pleural-based mass. Pleural fluid: None. Exam quality: Examination is somewhat limited due to motion artifact from the patient's breathing. Good contrast enhancement of the vasculature. Pulmonary Arteries: Examination is limited due to motion artifact. There is decreased attenuation involving multiple segmental and subsegmental pulmonary artery supplying the right upper lobe, however evaluation is limited due to motion artifact.. Aorta: Normal caliber. Atherosclerotic calcifications. Heart: No abnormality . Coronary Arteries: coronary artery calcification. Mediastinum/Ne: No mediastinal or hilar mass. Upper abdomen: Unremarkable. Osseous structures: No abnormality. Soft tissues chest wall/Neck base: No abnormality identified. Impression: Examination is limited due to motion artifact. There is decreased attenuation involving multiple segmental and subsegmental pulmonary artery supplying the right upper lobe which could represent pulmonary emboli, however evaluation is limited due to the motion artifact. The RV/LV ratio is less than one.. . Report Dictated on Electronically Signed By: Wong Srinivasan MD Electronically Signed Date/Time: 11/13/2024 11:[address] head wo IV contrast [[id number]] Collected: 11/13/24 1113 Order Status: Completed Updated: 11/13/24 1116 Narrative: Patient Name: DIVYA JOSEPH : 1950 Exam Date/Time: 11/13/2024 10:55 Procedure: CT HEAD WO IV CONTRAST Ordering Provider: ACOSTA YASMIN Reason For Exam: Mental status change, unknown cause EXAMINATION: CT HEAD WO IV CONTRAST HISTORY: Mental status change, unknown cause - - - - - [id number] - - - - TECHNIQUE: CT head without contrast. Dose reduction was employed with automated exposure control. COMPARISON: None. RESULT: Acute change: No evidence of an acute intracranial process. Hemorrhage: No evidence of acute intracranial hemorrhage. Mass Lesion / Mass Effect: No evidence of an intracranial mass, extra-axial fluid collection, or significant localized mass effect. Chronic change: None apparent. Parenchyma: There is no significant volume loss. The brain parenchyma is otherwise within normal limits for age. Ventricles: Normal caliber and morphology. Other: The calvarium, skull base, imaged paranasal sinuses, mastoids, orbits and extracranial soft tissues are unremarkable. Visual Merchandise Manager (topogram) images: No additional findings. Impression: No CT evidence of an acute intracranial abnormality. Report Dictated on Electronically Signed By: Wong Srinivasan MD Electronically Signed Date/Time: 11/13/2024 11:15 AM EDT XR chest 1 view [[id number]] Collected: 11/13/24 1028 Order Status: Completed Updated: 11/13/24 1032 Narrative: Patient Name: DIVYA JOSEPH : 1950 Exam Date/Time: 11/13/2024 10:21 Procedure: XR CHEST 1 VIEW Ordering Provider: ACOSTA YASMIN Reason For Exam: ALTERED MENTAL STATUS HISTORY: Altered mental status Frontal view the chest with comparison study from 10/28/2024 shows slight hypoinflation with pulmonary vascular prominence. Prior chest surgery with median sternotomy wires and dual-lead pacemaker with surgical clips left neck Report Dictated on Electronically Signed By: Grant Bagley MD Electronically Signed Date/Time: 11/13/2024 10:31 AM EDT 11/14/24 TTE: Interpretation Summary Show Result Comparison Left Ventricle: Left ventricle size is normal. Mild basal septal thickening. Normal left ventricular systolic function. EF by 2D Simpsons Biplane is 55%. Global longitudinal strain is normal with a value of -19.8%. See diagram for wall motion findings. Grade II diastolic dysfunction with increased LAP. Elevated left ventricular filling pressure. Average E/e' ratio is 14.60. Right Ventricle: Right ventricle size is normal. Pacemaker lead present in the right ventricle. Normal systolic function. Mitral Valve: Mild (1+) regurgitation. Tricuspid Valve: Mild to moderate (1-2+) regurgitation. Mildly elevated RVSP. RVSP is 44 mmHg. Left Atrium: Left atrium size is moderately increased (LA volume index 42-48 mL/m2).LA Vol Index is 37 ml/m2. Aorta: Normal sized sinuses of Valsalva and ascending aorta. There is a small outpouching on the anterior aspect of the aorta with blood flow as per color Doppler interrogation. Based on history and CTA, suspect this is the ostium of a prior CABG anastomosis, reccomend radiographic corrleation if clinicially indicated. Echo Findings Left Ventricle Left ventricle size is normal. Mild basal septal thickening. Normal left ventricular systolic function. EF by 2D Simpsons Biplane is 55%. Global longitudinal strain is normal with a value of -19.8%. See diagram for wall motion findings. Grade II diastolic dysfunction with increased LAP. Elevated left ventricular filling pressure. Average E/e' ratio is 14.60. Right Ventricle Right ventricle size is normal. Pacemaker lead present in the right ventricle.Normal systolic function. Left Atrium Left atrium size is moderately increased (LA volume index 42-48 mL/m2).LA Vol Index is 37 ml/m2. Interatrial Septum No interatrial shunt visualized on color Doppler. Right Atrium Right atrium size is normal. Pacemaker lead present in the right atrium. Aortic Valve Trileaflet. Mildly calcified cusps. Mild annular calcification. No regurgitation. No stenosis. Mitral Valve Valve structure is normal. Mild annular calcification. Mild (1+) regurgitation. No stenosis noted. Tricuspid Valve Valve structure is normal. Mild to moderate (1-2+) regurgitation. Mildly elevated RVSP. RVSP is 44 mmHg. Pulmonic Valve Valve structure is normal. Mild to moderate (1-2+) regurgitation. Pulmonary Artery Pulmonary artery was not well visualized. Aorta Normal sized sinuses of Valsalva and ascending aorta. There is a small outpouching on the anterior aspect of the aorta with blood flow as per color Doppler interrogation. Based on history and CTA, suspect this is the ostium of a prior CABG anastomosis, reccomend radiographic corrleation if clinicially indicated. IVC/Hepatic Veins IVC diameter is normal and decreases greater than 50% during inspiration; therefore the estimated right atrial pressure is normal (~3 mmHg). IVC Diameter is 2.0 cm. Pericardium No pericardial effusion. Antimicrobials, Start/End Dates: Ceftr Ertapenem 11/14- Impression: Septic shock. E coli bacteremia. E coli UTI with hydroureter. Acute respiratory failure requiring O2. Sick sinus syndrome, requiring placement of a permanent pacemaker. Altered Mental Status. Improved. Acute deep vein thrombosis (DVT), both lower extremities. ? PE. Plan: Pt was admitted sick due to septic shock due to E coli bacteremic UTI/ pyelonephritis. Pt with hypoxia, non-productive cough, legionella Ag -neg. Leukocytosis improved. Blood cxs were repeated today, will follow. Blood and urine E coli isolates are sensitive to 3rd-generation cephalosporin. Substitute ceftriaxone for ertapenem. She has PPM, TTE demonstrated mitral, tricuspid and pulmonic valves regurgitations, no vegetation. Predict treatment with 4 weeks of ceftriaxone, if today's blood cxs are negative, followed by surveillance blood cxs after completion of antimicrobial. High level complexity medical decision making. Will follow. Total time of 50 minutes on this day of encounter spent on, but not limited to review of tests, medical records , complex history , review of external medical records, paper and electronic, counseling and education (patient, family member, caregiver), ordering medications, tests, and procedures, communication with other health care professions, independent interpretation of tests, care coordination, arrangement of outpatient antimicrobial therapy, post-hospitalization therapy and follow-up, and counseling for risks, benefits, and consideration of use of antimicrobials. Images from the original note were not included. PHYSICAL THERAPY [facility] Initial Evaluation Name/MRN: Divya Joseph ([id number]) Evaluation Date: 11/15/2024 Date of : 1950 Admission Date: 11/13/2024 9:27 AM Age: 74 y.o. Room/Bed: 222-03/222-03 A Discharge Recommendation: Long Term Facility Equipment Needed: No Assessment IMPRESSION: Pt admitted from [facility] with UTI, sepsis, respiratory distress. She reports require assist for transfer to w/c at [facility], had been receiving therapy. She demo bed mobility SBA, transfer to FWW min A and stand pivot to chair min A. Pt limited by fatigue, would benefit from skilled therapy to promote mobility but does demo therapy potential for ambulation/transfers Admitting Diagnosis: UTI, sepsis, respiratory distress Prognosis: good Performance Deficits /Impairments: Decreased Endurance Decision Making: Medium Complexity Subjective Per RN pt okay for therapy, is pleasant and agree to PT Pain: Pt denies any current pain. Past Medical History: Medical History[1] Past Surgical History: Surgical History[2] Admission Diagnosis: Patient Active Problem List Diagnosis Date Noted Transient alteration of awareness 11/13/2024 Medical Precautions: No active isolations Proper PPE donned/doffed in accordance with facility standards. Fall Risk: [place] Fall Risk Score: 75 (High Risk) Precautions/Restrictions: N/A Family/Caregiver Present: none Overall Cognitive Status: WFL Overall Orientation Status: Oriented x4 Vision: No Visual Deficits Hearing: normal Social/Functional History Patient admitted from [facility]. Assistive Equipment: front wheeled walker and wheelchair - manual Prior Level of Function Prior Level of ADL Function: Required Assist Prior Level of Mobility: Required Assist; Device: Wheelchair - manual Prior Level of Transfers: Required Assist Objective Lower Extremity Assessment AROM: WFL PROM: Not assessed this session Strength: Exceptions: RLE: hip flex 3-/5 knee ext 4-/5 knee flex 4-/5 ankle DF 4/5 ankle PF 4/5 LLE: hip flex 3-/5 knee ext 4-/5 knee flex 4-/5 ankle DF 4/5 ankle PF 4/5 Sensation: Not assessed this session Balance: Balance During Session: Posture: fair Sitting - Static: SBA Sitting - Dynamic: SBA Standing - Static: Min Assist Standing - Dynamic: Min Assist Bed Mobility: Supine to sit: SBA, pt denies dizziness, demo bed mobility SBA with HOB elevated. Transfers Sit to stand: Min Assist, pt transfer to FWW with min A with cues for hand placement and upright trunk, able to take stand step bed>chair min A. Pt limited by fatigue Stand to sit: Min Assist Stand step: Min Assist Ambulation Did not assess this session. Outcome Measures AM-PAC How much HELP from another person do you currently need Turning from your back to your side while in a flat bed without using bedrails?: A Little Moving from lying on your back to sitting on the side of a flat bed without using bedrails?: A Little Moving to and from a bed to a chair (including a wheelchair)?: A Little Standing up from a chair using your arms (wheelchair or bedside chair)?: A Little Walking in a hospital room?: A Lot Stair climbing assessed?: No AM-PAC Inpatient Mobility Raw Score (No Stairs) : 14 JH-HLM JH-HLM Scale: Transferred to chair/commode Plan Pt would benefit from skilled acute PT services to address Strengthening, Gait Training, Balance Training, Functional Mobility Training, Endurance Training, Safety Education and Training, Pain Management, Equipment Evaluation/Education, Patient/Caregiver Training, and Positioning. Frequency: 5 visitsduring current hospital admission or until additional recommendations are made Barriers: Decreased endurance Safety/Education Safety Safety Devices in place: All fall risk precautions in place, call light within reach, left in chair, gait belt, patient at risk for falls, and nurse notified Restraints: No Education Education Given To: patient Education Provided: PT Role, PT Goals, Gait Training, Plan of Care, Precautions, Transfer Training, Energy Conservation, Equipment, Fall Prevention Education, Discharge Recommendations, and Benefits of Increasing Activity Education Method: Verbal and Demonstration Barriers to Learning: None Education Outcome: Verbalized Understanding and Demonstrated Understanding Goals Patient Stated Goal: to walk Encounter Problems Encounter Problems (Active) Balance Patient will maintain dynamic standing balance for 2 minutes with SBA in order to demonstrate decreased risk of falling. Start: 11/15/24 Expected End: 11/22/24 Exercise Patient will complete lower extremity exercises for 1-2 sets / 5-10 reps in order to improve strength and activity tolerance for mobility. Start: 11/15/24 Expected End: 11/22/24 Mobility Patient will ambulate 20 feet with CGA and rolling walker in order to improve safety and independence with mobility. Start: 11/15/24 Expected End: 11/22/24 Transfers Patient will perform bed mobility with modified independence in order to improve independence and prepare for out of bed mobility. Start: 11/15/24 Expected End: 11/22/24 Patient will complete sit to stand transfer with SBA to rolling walker in order to improve safety and prepare for out of bed mobility. Start: 11/15/24 Expected End: 11/22/24 Therapy Time Individual Co-Treatment Co-Evaluation Time In 09 Time Out 09 Minutes 13 Juan M Shaffer PT Patient's Physical Therapy Plan of Care supervision is transferred to a [facility] Physical Therapist. Goals and/or treatment plan was established in collaboration with patient/family/other representatives. [1] Past Medical History: Diagnosis Date Altered mental status, unspecified Ataxia Atherosclerotic heart disease Bradycardia, unspecified Cognitive communication deficit COPD (chronic obstructive pulmonary disease) (HCC) i was told i had COPD, then I was told i wasn't, i don't know for sure Difficulty walking Dysphagia, oropharyngeal phase Dyspnea Essential (primary) hypertension Gastro-esophageal reflux disease without esophagitis Muscle weakness (generalized) Need for assistance with personal care Other chronic pain Pain in left shoulder Paroxysmal atrial fibrillation (HCC) Peripheral vascular disease, unspecified (HCC) Presence of cardiac pacemaker Repeated falls Sick sinus syndrome (CMS/HCC) (HCC) Unsteadiness on feet Weakness [2] Past Surgical History: Procedure Laterality Date BYPASS GRAFT 2006 triple bypass. two grafted from left leg, one from right leg. used for coronary artery CARDIAC PACEMAKER PLACEMENT 2013 did another one 2023 CHOLECYSTECTOMY 1992 presented with AMS, abdominal pain. Initially admitted to [facility] for UTI, but became hypotensive briefly requiring pressors. These have been off since yesterday and medically stable to transfer to the floor. Medical team will accept into care. Mercedes Littlejohn MD [facility] Geriatric Medicine Inpatient Consult Service Admission Date: 11/13/2024 Assessment Principal Problem: Transient alteration of awareness Plan Acute Metabolic Encephalopathy --appears resolved --Etiology likely acute illness (sepsis, respiratory failure) --Encourage PO intake, time up in chair, family visits, and sleep hygiene --If agitated, assess for and consider treating for pain --QTc= 473 ms --No antipsychotic unless patient is danger to self/others/treatment --Continue PRN melatonin at HS --Monitor for constipation/urinary retention - last BM 11/10 per patient --Possible medication contributions: none -Received Benadryl 11/13 Recommend trying to avoid if possible due to risk for confusion, lethargy. --Brother reported no significant baseline memory concerns -- B12 338 and TSH 0.69 Debility --contributing factors include COPD, chronic pain, medications --lives at [facility]. Propels self in w/c at baseline. --History of falls hitting head last week. CT head no acute abnormality. --PT and OT. OT recommends SNF. PT eval pending. --Anticipate return to facility at discharge --Recently started on Methocarbamol at her facility for back pain. Monitor for side effects. Consider low dose Tizanidine as an alternative. Dysphagia --ST following - advancing diet --MBSS no laryngeal penetration or airway aspiration IBS --takes Dicyclomine 20mg TID at facility --Recommend decreasing/stopping due to risk of anticholinergic side effects. Not currently ordered. --no current abdominal complaints Chronic constipation --patient reports normal BM pattern every 10 days. --Continue Miralax as needed --no BM documented since admission --Educated on use of bowel regimen - she declines due to concern for diarrhea Neuropathy --takes Gabapentin 200mg TID at facility --Resume Gabapentin 100mg BID and 200mg HS to prevent withdrawal. OAB --takes Oxybutynin at facility. --Recommend alternative with less anticholinergic side effects versus stopping and monitoring symptoms. --[facility] Follow[facility]up: will follow with you Subjective Chief Complaint: Chief Complaint Patient presents with Altered Mental Status From [facility]. With AMS. Pt c/o of not feeling well. Pt with abd pain. Axo x 3 pt with temp of 100.3 Geriatrics consulted for impaired cognition HPI- The patient is known to me. 74 y.o. year-old female with PMH of COPD, CAD s/p CABG, SSS s/p pacemaker, Dysphagia, HTN, GERD, Chronic pain, atrial fibrillation, repeated falls, PVD, anxiety, depression presented to the hospital from [facility] on 11/13/24 with complaints of mental status change and fever. Admitted with sepsis with acute hypoxic respiratory failure, possible UTI. CT chest showed possible right upper lobe PE. Exam limited by motion artifact. Pulmonology felt likely motion artifact and not PE. Has been on Warfarin. Found to have E.Coli bacteremia. ID following. Cardiology following- likely type II NSTEMI in setting of sepsis and UTI. Interval History: Remains on ICU. Developed respiratory distress overnight. Received lasix with improvement. Repeat blood cultures pending CMP: K 3.1 glucose 168 albumin 3.2 CBC: Hgb 8.5 WBC 8.6 (18.2 yesterday) CXR 11/14 IMPRESSION: 1. Rtgwv-by-mextzmuh layering LEFT pleural effusion. 2. Suspect small RIGHT pleural effusion. 3. Moderate to severe centrilobular emphysema with suspected superimposed interstitial edema. MBSS 11/14: no laryngeal penetration or airway aspiration Patient reports she is feeling better. She would like to return to her facility as soon as she can. She feels she will do better and would like to resume therapy there. She has many people rooting for her there. She has not been sleeping well. Has poor appetite but this has been for months. On a gluten free diet. Been several days since last BM and this is normal for her. Nursing reports no concerns, may be moved to regular floor soon. Review of Systems Constitutional: Positive for fatigue. Negative for fever. Respiratory: Positive for cough and shortness of breath. Cardiovascular: Negative for chest pain and leg swelling. Gastrointestinal: Negative for abdominal pain, constipation, diarrhea and nausea. Genitourinary: Negative for difficulty urinating. Musculoskeletal: Positive for arthralgias. Neurological: Positive for weakness. Psychiatric/Behavioral: Positive for sleep disturbance. Negative for confusion and dysphoric mood. The patient is not nervous/anxious. Objective BP 142/67 Pulse 66 Temp 36.9 C (98.5 F) Resp 20 Ht 5' 3 (1.6 m) Wt 165 lb 2 oz (74.9 kg) SpO2 95% BMI 29.25 kg/m Intake/Output Summary (Last 24 hours) at 11/15/2024 1226 Last data filed at 11/15/2024 0417 Gross per 24 hour Intake 550 ml Output 4500 ml Net -3950 ml Wt Readings from Last 3 Encounters: 09/11/25 165 lb 2 oz (74.9 kg) Current Medications[1] Physical Exam Vitals reviewed. Constitutional: General: She is not in acute distress. HENT: Head: Normocephalic and atraumatic. Cardiovascular: Rate and Rhythm: Normal rate and regular rhythm. Pulmonary: Comments: Diminished breath sounds bilaterally Wearing nasal cannula Abdominal: General: Bowel sounds are normal. There is no distension. Palpations: Abdomen is soft. Tenderness: There is no abdominal tenderness. Musculoskeletal: Right lower leg: No edema. Left lower leg: No edema. Neurological: Mental Status: She is alert and oriented to person, place, and time. Psychiatric: Attention and Perception: Attention normal. Mood and Affect: Mood normal. Behavior: Behavior is cooperative. Comments: Appropriate in conversation Labs and Imaging: Recent Results (from the past 24 hours) Blood gas, venous Collection Time: 11/14/24 8:00 PM Result Value Ref Range pH, Venous 7.464 (H) 7.320 - 7.420 pCO2, Venous 35.9 35.0 - 53.0 mm Hg pO2, Venous 63.0 mm Hg HCO3, Venous 25.2 21.0 - 30.0 mmol/L O2 Sat, Venous 92.5 % Base Excess, Venous 1.5 -3.0 - 3.0 mmol/L Hgb, blood gas 9.2 (L) Screen only g/dl TCO2, Venous 26.3 23.0 - 30.0 mmol/L Source Of Oxygen Nasal Cannula (LPM) Amount Of Oxygen 4L Legionella and Streptococcus Urine Antigen Collection Time: 11/14/24 9:25 PM Specimen: Urine, Clean Catch Result Value Ref Range Legionella pneumophila Ag Not Detected Not Detected Streptococcus pneumoniae Ag Not Detected Not Detected Urine Hold Cup Collection Time: 11/14/24 9:25 PM Result Value Ref Range Extra Tube Hold for add-ons. CBC auto differential Collection Time: 11/15/24 4:19 AM Result Value Ref Range Auto WBC 8.6 3.6 - 10.7 10*3/uL RBC 3.46 (L) 3.80 - 5.20 10*6/uL Hemoglobin 8.5 (L) 11.7 - 16.0 g/dL Hematocrit 28.7 (L) 35.0 - 47.0 % MCV 82.9 77.0 - 99.0 fL MCH 24.6 (L) 26.0 - 34.0 pg MCHC 29.6 (L) 30.5 - 36.0 % RDW 20.1 (H) 11.5 - 15.0 % Platelets 133 (L) 140 - 440 10*3/uL MPV IPF 11 Magnesium Collection Time: 11/15/24 4:19 AM Result Value Ref Range MAGNESIUM 1.8 1.6 - 2.6 mg/dL Comprehensive metabolic panel Collection Time: 11/15/24 4:19 AM Result Value Ref Range SODIUM 141 136 - 145 mmol/L POTASSIUM 3.1 (L) 3.5 - 5.1 mmol/L CHLORIDE 100 98 - 107 mmol/L CARBON DIOXIDE 31 23 - 31 mmol/L ANION GAP 10 3 - 13 mmol/L UREA NITROGEN 13 9 - 23 mg/dL CREATININE 0.79 0.57 - 1.11 mg/dL GLUCOSE 168 (H) 82 - 115 mg/dL CALCIUM 8.8 8.8 - 10.0 mg/dL AST (SGOT) 32 <34 U/L ALT 10 <30 U/L ALKALINE PHOSPHATASE 52 40 - 150 U/L ALBUMIN 3.2 (L) 3.4 - 4.8 g/dL BILIRUBIN, TOTAL 0.6 <1.2 mg/dL TOTAL PROTEIN 6.1 (L) 6.4 - 8.3 g/dL eGFR 78.6 >60.0 mL/min/1.73m*2 Phosphorus Collection Time: 11/15/24 4:19 AM Result Value Ref Range PHOSPHORUS 1.8 (L) 2.3 - 4.7 mg/dL Protime-INR Collection Time: 11/15/24 4:19 AM Result Value Ref Range PROTHROMBIN TIME 31.9 (H) 9.0 - 12.0 s INR 3.3 (H) 0.9 - 1.1 MANUAL DIFFERENTIAL (CELLAVISION) Collection Time: 11/15/24 4:19 AM Result Value Ref Range RBC Morphology abnormal Anisocytosis Slight (A) (none) Neutrophils % 90 (H) 38 - 82 % Bands % 6 (H) <=0 % Lymphocytes % 3 (L) 15 - 45 % Monocytes % 1 (L) 5 - 13 % Absolute Neutrophil Count 8.3 (H) 1.8 - 7.5 10*3/uL Bands Absolute 0.5 (H) <=0.0 10*3/uL Lymphocytes Absolute 0.3 (L) 1.0 - 4.3 10*3/uL Monocytes Absolute 0.1 0.0 - 0.9 10*3/uL Neutrophils Manual 91 Lymphocytes Manual 3 Monocytes Manual 1 Eosinophils Manual Basophils Manual Bands Manual 6 Metamyelocytes Manual Myelocytes Manual Promyelocytes Manual Blasts Manual Atypical Lymphocytes Manual Unclassified Cells, Manual Blood culture Site #1 - Assess for effectiveness of treatment Collection Time: 11/15/24 4:28 AM Specimen: Blood, Venous Result Value Ref Range Blood Culture Blood culture incubation started Blood culture Site #2 - Assess for effectiveness of treatment Collection Time: 11/15/24 4:35 AM Specimen: Blood, Venous Result Value Ref Range Blood Culture Blood culture incubation started Lab Results Component Value Date TSH 0.69 11/14/2024 Lab Results Component Value Date [id number] 338 11/14/2024 No results found for: VITD25 Reviewed: allergies, previous encounters, imaging, active problem lists, medications, and labs [1] Current Facility-Administered Medications: acetaminophen (Tylenol) tablet 650 mg, 650 mg, Oral, q6h PRN, LEONCIO Naqvi CNP, 650 mg at 11/13/24 2349 aspirin chewable tablet 81 mg, 81 mg, Oral, Daily, LEONCIO Naqvi CNP, 81 mg at 11/15/24 0849 cetirizine (ZyrTEC) tablet 5 mg, 5 mg, Oral, Daily, LEONCIO Naqvi CNP, 5 mg at 11/15/24 0849 dexAMETHasone (Decadron) injection 4 mg, 4 mg, IntraVENous, q6h, LEONCIO Naqvi CNP, 4 mg at 11/15/24 0647 ertapenem (INVanz) 1,000 mg in sodium chloride 0.9 % 50 mL IVPB Mini-Bag Plus, 1,000 mg, IntraVENous, q24h, Cortez Rodríguez MD, Stopped at 11/14/24 1827 folic acid (Folvite) tablet 1 mg, 1 mg, Oral, Daily, LEONCIO Naqvi CNP, 1 mg at 11/15/24 0849 ipratropium-albuterol (Duo-Neb) 0.5-2.5 mg/3 mL nebulizer solution 3 mL, 3 mL, Nebulization, 4x daily, Jovanny Tobar APRN - EFRAÍN, 3 mL at 11/15/24 0907 [Held by provider] isosorbide mononitrate ER (Imdur) 24 hr tablet 30 mg, 30 mg, Oral, Daily, Jovanny Tobar APRN - ORACLE DATABASE ADMINISTRATOR [Held by provider] lisinopril tablet 5 mg, 5 mg, Oral, Daily, Jovanny Tobar, SNAPPER ON - ORACLE DATABASE ADMINISTRATOR melatonin tablet 3 mg, 3 mg, Oral, Nightly PRN, Mili Ezzie, SNAPPER ON - ORACLE DATABASE ADMINISTRATOR methocarbamol (Robaxin) tablet 500 mg, 500 mg, Oral, q8h PRN, Jovanny Tobar APRN - ORACLE DATABASE ADMINISTRATOR [Held by provider] metoprolol tartrate (Lopressor) tablet 25 mg, 25 mg, Oral, BID, Jovanny Tobar SNAPPER ON - ORACLE DATABASE ADMINISTRATOR montelukast (Singulair) tablet 10 mg, 10 mg, Oral, Nightly, Jovanny Tobar, SNAPPER ON - ORACLE DATABASE ADMINISTRATOR, 10 mg at 11/14/24 2119 mupirocin (Bactroban) 2 % ointment 1 Application, 1 Application, Nasal, BID, Jovanny Tobar APRN - ORACLE DATABASE ADMINISTRATOR, 1 Application at 11/15/24 0849 nitroglycerin (Nitrostat) SL tablet 0.4 mg, 0.4 mg, SubLINGual, q5 min PRN, Jovanny Tobar APRN - ORACLE DATABASE ADMINISTRATOR ondansetron ODT (Zofran-ODT) disintegrating tablet 4 mg, 4 mg, Oral, q8h PRN OR ondansetron (Zofran) injection 4 mg, 4 mg, IntraVENous, q6h PRN, Jovanny Tobar APRN - ORACLE DATABASE ADMINISTRATOR, 4 mg at 11/14/24 1827 pantoprazole (ProtoNix) EC tablet 40 mg, 40 mg, Oral, qAM AC, Jovanny Tobar, SNAPPER ON - ORACLE DATABASE ADMINISTRATOR, 40 mg at 11/15/24 0646 polyethylene glycol (PEG) 3350 (Miralax) packet 17 g, 17 g, Oral, Daily PRN, Jovanny Tobar APRN - ORACLE DATABASE ADMINISTRATOR pravastatin (Pravachol) tablet 80 mg, 80 mg, Oral, Nightly, Jovanny Tobar SNAPPER ON - ORACLE DATABASE ADMINISTRATOR, 80 mg at 11/14/24 2119 sodium chloride 0.9 % infusion, 5-250 mL/hr, IntraVENous, PRN, Jovanny P Ekaterina, SNAPPER ON - ORACLE DATABASE ADMINISTRATOR sodium chloride 0.9% (NS) flush 5-40 mL, 5-40 mL, IntraVENous, 2 times per day, Jovanny P Ekaterina, SNAPPER ON - ORACLE DATABASE ADMINISTRATOR, 10 mL at 11/15/24 0850 sodium chloride 0.9% (NS) flush 5-40 mL, 5-40 mL, IntraVENous, PRN, Jovanny P Schsteve, SNAPPER ON - ORACLE DATABASE ADMINISTRATOR trospium (Sanctura) tablet 20 mg, 20 mg, Oral, Daily, Jovanny Tobar, SNAPPER ON - ORACLE DATABASE ADMINISTRATOR, 20 mg at 11/15/24 0849 warfarin (Coumadin) tablet 1 mg, 1 mg, Oral, Once, Carlos Chne MD Images from the original note were not included. Speech-Language Pathology SPEECH LANGUAGE PATHOLOGY [facility] Dysphagia Treatment Note Patient Name: Divya Joseph Evaluation Date: 11/15/2024 Date of : 1950 Admission Date: 11/13/2024 9:27 AM Age: 74 y.o. Room/Bed: [facility]03/[facility]03 A Subjective Patient alert and cooperative. Seen upright in bedside chair. Answers all basic questions with clear vocal quality. Follows all basic commands. No visitors at bedside. Spoke with LINDA Leslie who cleared pt for treatment. Current Diet: Dietary Orders (From admission, onward) Start Ordered 11/15/24 1109 Adult diet Easy to Chew; Gluten Free Diet effective now Question Answer Comment Diet type Easy to Chew Other restriction(s): Gluten Free 11/15/24 1109 11/14/24 1452 Supplement:Dinner; Vanilla Magic Cup Until discontinued Question Answer Comment Frequency Dinner Select supplement: Vanilla Magic Cup 11/14/24 1451 Oxygen: Oxygen Therapy: Supplemental oxygen O2 Delivery Method: Nasal cannula O2 Flow Rate (L/min): 2 L/min That will make me gag Pain: Pt denies any current pain. PPE Worn: gloves Objective & Assessment Dysphagia Treatment # of Activities: 1 Dysphagia Activity 1: Assess tolerance of recommended diet with use of dentition. Pt with some baseline coughing and gagging. She indicated that she is very sensitive to tastes and does not like many things. Clarifying that she is GLUTEN free for long time. Pt promotes celiac however no documentation of this. Will ensure that we provided a Gluten free diet. Discussed with RD and dr. Pt was able to place her dentures after cleaning and use of fixodent. She completed trial of cookie and pudding. She required very small bites and was able to modify independently. Prolonged mastication however overtly good oral control without taste aversions. Oral clearing was functional with liquid chaser. Plan & Recommendations Plan: Assess tolerance of diet advancement. Develop further strategies Recommend Easy to chew solids and Thin liquids and meds as tolerated and the following precautions: - Upright positioning for all PO intake - Slow rate of intake - Small bites/sips - Alternate solid and liquids - place dentures for po intake D/C Recommendations: to be determined Education Education Given: swallowing strategies, diet recommendations Given To: patient Response: verbalizes understanding Goals Patient Stated Goal: To eat what I want. Encounter Problems Encounter Problems (Active) Swallowing Patient will participate in instrumental assessment of swallowing as appropriate (Completed) Start: 11/14/24 Expected End: 11/16/24 Resolved: 11/15/24 Patient will tolerate the least restrictive diet consistency to allow for safe consumption of daily meals (Progressing) Start: 11/14/24 Expected End: 11/28/24 Patient will demonstrate safe swallowing Intervention/techniques (Progressing) Start: 11/14/24 Expected End: 11/28/24 Therapy Time WASHHOUSE WORKER Individual Minutes Time In: 1036 Time Out: 1106 Minutes: 30 HONORIO Stephens Images from the original note were not included. OCCUPATIONAL THERAPY [facility] Initial Evaluation Name/MRN: Divya Joseph ([id number]) Evaluation Date: 11/15/2024 Date of : 1950 Admission Date: 11/13/2024 9:27 AM Age: 74 y.o. Room/Bed: 222-03/222-03 A Discharge Recommendation: Long Term Facility Assessment IMPRESSION: Pt is a 74 y/o F admitted to [facility] on 11/13/24 d/t AMS and was found to have a UTI. She arrived from [facility] where she lives, and uses wheelchair for mobility. She is currently on 2L O2. OT eval completed with pt participating in LB dressing with MIN A, STS from recliner MIN A and dynamic standing with MIN A. Pt is limited by weakness, low activity tolerance, and decreased ADL performance. Recommend pt return to SNF and receive OT services to help pt return to PLOF. Admitting Diagnosis: Transient alteration of awareness Performance Deficits /Impairments: Decreased Functional Mobility, Decreased ADL status, Decreased Strength, Decreased Safety Awareness, Decreased Endurance, and Decreased Balance Prognosis: Good Decision Making: Medium Complexity Subjective Pt agreeable to OT eval Pain: Pt denies any current pain. Past Medical History: Medical History[1] Past Surgical History: Surgical History[2] Admission Diagnosis: Patient Active Problem List Diagnosis Date Noted Transient alteration of awareness 11/13/2024 Medical Precautions: No active isolations Proper PPE donned/doffed in accordance with facility standards. Fall Risk: [place] Fall Risk Score: 75 (High Risk) Precautions/Restrictions: Lines/Drains/Airways: 2L O2 Fall Precautions Family/Caregiver Present: none Overall Cognitive Status: Exceptions - Following commands: follows one step commands with increased time and follows one step commands with repetition - Safety judgement: decreased awareness of need for safety - Initiation: requires cues for some - Sequencing: requires cues for some Overall Orientation Status: Oriented x4 Social/Functional History Patient admitted from SNF. Assistive Equipment: front wheeled walker and wheelchair - manual Prior Level of Function Prior Level of ADL Function: Required Assist Prior Level of Mobility: Required Assist; Device: Wheelchair - manual Prior Level of Transfers: Required Assist Objective ADLs LE Dressing: Min Assist Pt able to thread brief on feet but upon standing required assistance to pull up completely over bottom while maintaining standing balance. Anticipate MIN A for toileting for hygiene and LB clothing mgt. Pt could transfer to [facility]. Upper Extremity Assessment Strength: 3+/5 Bed Mobility Pt up in chair upon arrival Transfers/Mobility Sit to stand: Min Assist Stand to sit: Contact Guard Standing balance: Min Assist MIN A STS from recliner with mod cues for hand placement on arm rests to push up and to reach back when sitting with fair follow through. MIN A during standing balance d/t fatigue and weakness. Pt completing 5x STS from recliner in ~55s. Pt desating to ~85% but quickly recovering to 93% with education on pursed lip breathing techniques. Device(s) used: Front wheeled walker Vision: Not Assessed Hearing: normal AM-PAC AM-PAC Inpatient Daily Activity Raw Score: 19 ADL Inpatient CMS G-Code Modifier: CK Plan Pt would benefit from skilled acute OT services to address Balance Training, Self-Care/ADL Training, Functional Mobility Training, Endurance Training, and Safety Education and Training Frequency: 7 visits during current hospital admission or until additional recommendations are made Barriers: Impaired balance, Upper extremity weakness, Decreased endurance, and Limited safety awareness Safety/Education Safety Safety Devices in place: call light within reach, left in chair, gait belt, and nurse notified Restraints: N/A Education Education Given To: patient Education Provided: OT Role, Plan of Care, Transfer Training, Fall Prevention Education, Discharge Recommendations, Benefits of Increasing Activity, and Breathing Techniques Education Method: Verbal, Demonstration, and Teach Back Barriers to Learning: Cognition Education Outcome: Continued Education Needed Goals Patient Stated Goal: get better Encounter Problems Encounter Problems (Active) Balance Patient will maintain dynamic standing balance for 5 minutes with CGA in order to demonstrate decreased risk of falling. Start: 11/15/24 Expected End: 11/22/24 Dressing Upper Extremities Patient will complete upper body dressing MOD I Start: 11/15/24 Expected End: 11/22/24 Dressings Lower Extremities Patient will dress lower body MOD I Start: 11/15/24 Expected End: 11/22/24 Toileting Patient will complete toileting tasks at standard toilet with CGA. Start: 11/15/24 Expected End: 11/22/24 Transfers Patient will complete functional transfer with rolling walker with CGA in order to prepare for ambulation. Start: 11/15/24 Expected End: 11/22/24 Therapy Time Individual Co-Treatment Co-Evaluation Time In 923 Time Out 0936 Minutes 12 Johnny Kramer/OT Patient's Occupational Therapy Plan of Care supervision is transferred to a [facility] Therapy Services Occupational Therapist. Goals and/or treatment plan was established in collaboration with patient/family/other representatives. [1] Past Medical History: Diagnosis Date Altered mental status, unspecified Ataxia Atherosclerotic heart disease Bradycardia, unspecified Cognitive communication deficit COPD (chronic obstructive pulmonary disease) (HCC) i was told i had COPD, then I was told i wasn't, i don't know for sure Difficulty walking Dysphagia, oropharyngeal phase Dyspnea Essential (primary) hypertension Gastro-esophageal reflux disease without esophagitis Muscle weakness (generalized) Need for assistance with personal care Other chronic pain Pain in left shoulder Paroxysmal atrial fibrillation (HCC) Peripheral vascular disease, unspecified (HCC) Presence of cardiac pacemaker Repeated falls Sick sinus syndrome (CMS/HCC) (HCC) Unsteadiness on feet Weakness [2] Past Surgical History: Procedure Laterality Date BYPASS GRAFT 2006 triple bypass. two grafted from left leg, one from right leg. used for coronary artery CARDIAC PACEMAKER PLACEMENT 2013 did another one 2023 CHOLECYSTECTOMY 1992 Cosigned by Sharonda Solis OT at 11/15/2024 2:08 PM EDT Associated attestation - Sharonda Solis OT - 11/15/2024 2:08 PM EDT I certify that I was present during the entire session and guided the care given by the Student Occupational Therapist. Cosign: BEN Guerrero/L Patient states she quit smoking in 2013, no history of vaping or smokeless tobacco. Smoking cessation counseling not indicated. [facility] Anticoagulation Management Service ([facility]) Inpatient Warfarin Consult HPI: Divya Joseph is a 74 y.o. 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 Medical History[1] Patient is on warfarin for Afib and has a goal INR 2.0 - 3.0. Warfarin is currently managed by [facility]. Pt's home dose of warfarin is 2.5mg daily per [place] at the facility. Pt's last INR in the clinic was 2.6 on 10/29. S/sx of bleeding= hgb 8.5 , plt 133. Noted bruises/bleeds easily on physical inspection with small amount of epistaxis 11/14. Interacting medications= ASA 81 mg , pravastatin 80 mg (home med)., dexamethasone 6 mg injection every 6 hours (last dose to end 11/15/24 at 1330). Labs: Recent Labs 11/13/24 0951 11/14/24 0516 11/14/24199911/15/24 0419 HGB 11.2* 9.8* 8.6* 9.2* 8.5* HCT 34.2* 30.6* -- 28.7* PLT 184 160 -- 133* Recent Labs 11/15/24 0419 INR 3.3* Date INR Dose 11/15 3.3 1 mg 11/14 2.3 2.5mg 11/13 2.3 4mg Assessment/Plan: 1. INR is supratherapeutic today. Will give dose decrease of 1 mg today . 2. Monitor for s/s of bleeding and drug interactions. Will adjust dose accordingly. 3. Warfarin is managed by [facility] outpatient. [facility] will manage inpatient and sign off at discharge. John Bailey PharmD [facility] Consult Service is available daily [phone] via [employer] Secure Chat. [1] Past Medical History: Diagnosis Date Altered mental status, unspecified Ataxia Atherosclerotic heart disease Bradycardia, unspecified Cognitive communication deficit COPD (chronic obstructive pulmonary disease) ([facility]) i was told i had COPD, then I was told i wasn't, i don't know for sure Difficulty walking Dysphagia, oropharyngeal phase Dyspnea Essential (primary) hypertension Gastro-esophageal reflux disease without esophagitis Muscle weakness (generalized) Need for assistance with personal care Other chronic pain Pain in left shoulder Paroxysmal atrial fibrillation (HCC) Peripheral vascular disease, unspecified (HCC) Presence of cardiac pacemaker Repeated falls Sick sinus syndrome (CMS/HCC) ([facility]) Unsteadiness on feet Weakness [facility] Cardiology /Electrophysiology Progress Note HPI / Interval History: Divya Joseph presents to [facility] due to mental status changes. She has a history of coronary artery disease, remote bypass surgery, sick sinus syndrome, s/p placement of a permanent pacemaker, hypertension, paroxysmal atrial fibrillation COPD, anemia, who lives in a SNF. She has been febrile and has been diagnosed with a UTI. CTA of her chest suggestive of possible PE. Vascular US with no evidence of DVT in the BLE. She was seen in consultation with Dr. Day due to elevated troponin up 152 and a BNP of 8,878. She is felt to have a type II NSTEMI in the setting of sepsis and UTI. She has had no chest pain or EKG changes. Echocardiogram 11/14/2024 EF-55%. She been maintaining a SR, anticoagulated on warfarin with a therapeutic- INR 3.3 today. She was transferred to the ICU 11/14 due to hypotension, requiring vasopressor support. Antibiotics and supportive care continues per ICU. Pt states she is comfortable. Denies chest pain or palpitations. No longer on vasopressor support. GDMT-metoprolol and lisinopril remain on hold. BP and HR controlled. Assessment/Plan HF NYHA Class [] I [] II [] III [] IV []Unable to assess [] N/A Abnormal troponin- no evidence of ACS. Type II NSTEMI in the setting of sepsis and UTI. - she has remained CP free - Echo 11/14 with preserved EF. - low dose aspirin and pravastatin continues 2. Hx of CAD with remote CABG- has remained CP free - will resume cardioprotective meds once she is more recovered from infection - metoprolol 25 mg twice daily, lisinopril 5 mg daily, and Imdur 30 mg daily continue to be on hold. - low dose aspirin and pravastatin continue 3. Elevated BNP- pt appears to be compensated. Comfortable on oxygen NC 2 l/m - remain off diuretic therapy - continue to monitor- CXR 11/14 with small to moderate left pleural effusion, suspected small right pleural effusion. suspected interstitial edema 4. Sepsis- UTI- per ICU. Antibiotics continue 5. Atrial fibrillation- maintaining a SR. Anticoagulated on warfarin- INR 3.3 - rate well controlled - metoprolol on hold as noted above Medications: Scheduled Meds[1] Infusion Medications: Continuous Meds[2] Physical Examination: Vitals: 11/15/24 0405 11/15/24 0417 11/15/24 0502 11/15/24 0602 BP: 108/59 115/55 133/74 132/62 BP Location: Right arm Patient Position: Lying Pulse: 69 71 73 71 Resp: (!) 26 22 24 (!) 26 Temp: 36.8 C (98.2 F) TempSrc: Oral SpO2: 93% 96% 97% 97% Weight: 165 lb 2 oz (74.9 kg) Height: Intake/Output Summary (Last 24 hours) at 11/15/2024 0722 Last data filed at 11/15/2024 0417 Gross per 24 hour Intake 600 ml Output 4500 ml Net -3900 ml Patient Vitals for the past 168 hrs: Weight Weight Method 11/15/24 0417 165 lb 2 oz (74.9 kg) Bed scale 11/14/24 0740 165 lb (74.8 kg) -- 11/13/24 1924 165 lb 12.6 oz (75.2 kg) Bed scale Physical Exam Constitutional: NAD Psychiatric: Alert. Medical insight good Neck: No JVD Respiratory: Lungs are clear, diminished anteriorly Heart: regular ; Nl S1 and S2, no murmur, no rub, gallop Abdomen: NABS; soft, non-tender, non-distended Extremities: no LE edema Skin: Warm to touch and well perfused Laboratory Tests: TROPONIN I, CONVENTIONAL SENSITIVITY No results found for: CKTOTAL, CKMB, CKMBINDEX, TROPONINI TROPONIN I, HIGH SENSITIVITY Troponin HS Serial Baseline Date Value Ref Range Status 11/13/2024 78 (H) <=14 ng/L Final Comment: In individuals presenting with symptoms > 2h, a baseline troponin <= 5 ng/L suggests acute cardiac injury is unlikely and further serial testing is generally not indicated. 10/28/2024 10 <=14 ng/L Final Comment: In individuals presenting with symptoms > 2h, a baseline troponin <= 5 ng/L suggests acute cardiac injury is unlikely and further serial testing is generally not indicated. 2h Troponin HS (Serial 2nd Troponin) Date Value Ref Range Status 11/13/2024 90 (H) <=14 ng/L Final Comment: Rising or falling troponin delta between 2 - 15 ng/L as compared to baseline value requires a 3rd serial troponin 10/28/2024 12 <=14 ng/L Final Comment: Rising or falling troponin delta below 2 ng/L as compared to baseline value suggests that acute cardiac injury is unlikely. No results found for: TROPDELTBASE 4h Troponin HS (Serial 3rd Troponin) Date Value Ref Range Status 11/13/2024 152 (H) <=14 ng/L Final Comment: 4h troponin (3rd troponin) samples collected between 1h 40 min and 2h and 20 min of the 2h troponin collection time can be utilized to interpret delta troponins as per Summa algorithms. Samples collected outside this timeframe need to be interpreted clinically. Rising or falling troponin delta greater than 15 ng/L as compared to 2h troponin value is significant for acute cardiac injury. No results found for: TROPDELTSEC Recent Labs 11/13/2451 11/13/24 19211/14/2416 11/15/24418 NA 142 142 141 141 K 3.1* 3.1* 3.7 3.1* CL 105 109* 108* 100 CO2 27 21* 27 31 BUN 9 11 13 13 CREATININE 0.85 0.79 0.72 0.79 Recent Labs 11/13/2495011/14/2451511/14/24199911/15/24418 WBC 12.7* 18.2* -- 8.6 HGB 11.2* 9.8* 8.6* 9.2* 8.5* HCT 34.2* 30.6* -- 28.7* MCV 84.0 86.0 -- 82.9 PLT 184 160 -- 133* Recent Labs 11/13/2495011/14/24 0516 BNP 5,186* 8,878* No results for input(s): TRIG, HDL, LDLCALC, CHOL in the last 72 hours. No results found for: LDLCHOLESTER Lab Results Component Value Date TSH 0.69 11/14/2024 EF BP Date Value Ref Range Status 11/14/2024 55 55 - 100 % Final 11/13/24 TRANSTHORACIC ECHOCARDIOGRAM (TTE) COMPLETE (CONTRAST/BUBBLE/3D PRN) 11/14/2024 9:04 AM (Final) Interpretation Summary Left Ventricle: Left ventricle size is normal. Mild basal septal thickening. Normal left ventricular systolic function. EF by 2D Simpsons Biplane is 55%. Global longitudinal strain is normal with a value of -19.8%. See diagram for wall motion findings. Grade II diastolic dysfunction with increased LAP. Elevated left ventricular filling pressure. Average E/e' ratio is 14.60. Right Ventricle: Right ventricle size is normal. Pacemaker lead present in the right ventricle. Normal systolic function. Mitral Valve: Mild (1+) regurgitation. Tricuspid Valve: Mild to moderate (1-2+) regurgitation. Mildly elevated RVSP. RVSP is 44 mmHg. Left Atrium: Left atrium size is moderately increased (LA volume index 42-48 mL/m2).LA Vol Index is 37 ml/m2. Aorta: Normal sized sinuses of Valsalva and ascending aorta. There is a small outpouching on the anterior aspect of the aorta with blood flow as per color Doppler interrogation. Based on history and CTA, suspect this is the ostium of a prior CABG anastomosis, reccomend radiographic corrleation if clinicially indicated. Signed by: Rosanne Saunders MD on 11/14/2024 9:04 AM Other reports reviewed: Cardiac Tests: EC11/13/2024- IMPRESSION: SINUS RHYTHM ARTIFACT IN LEAD(S) Abnrm T, consider ischemia, anterolateral lds Tracing reviewed. Telemetry findings reviewed: SR-70's, atrial pacing on demand EF BP Date Value Ref Range Status 11/14/2024 55 55 - 100 % Final Mireya Butler, [employer] DAT[employer]ASE ADMINISTRATOR Date Of Service 11/15/2024 [1] aspirin, 81 mg, Oral, Daily cetirizine, 5 mg, Oral, Daily dexAMETHasone, 4 mg, IntraVENous, q6h ertapenem, 1,000 mg, IntraVENous, q24h folic acid, 1 mg, Oral, Daily ipratropium-albuterol, 3 mL, Nebulization, 4x daily [Held by provider] isosorbide mononitrate ER, 30 mg, Oral, Daily [Held by provider] lisinopril, 5 mg, Oral, Daily [Held by provider] metoprolol tartrate, 25 mg, Oral, BID montelukast, 10 mg, Oral, Nightly mupirocin, 1 Application, Nasal, BID pantoprazole, 40 mg, Oral, qAM AC pravastatin, 80 mg, Oral, Nightly sodium chloride 0.9%, 5-40 mL, IntraVENous, 2 times per day trospium, 20 mg, Oral, Daily [2] ICU Progress Note Name: Divya Joseph : 1950(74 y.o.) Date: 11/15/24 Team: MICU Attending: Dede Subjective: Hospital Summary: 74 year old female with a PMH of CAD s/p CABG, HTN, A-fib, SSS s/p PPM, PVD, COPD, Anemia, Dysphagia, Debility, who presents to the ED today from SNF with altered mental status. Patient complained of abdominal pain and difficulty urinating. Initially admitted to [facility] for infectious work up and empiric antibiotics. However became hypotensive requiring vasopressor support and transfer to ICU. Interval Events: Ms Joseph seen and evaluated at bedside. Overnight developed respiratory distress. Imaging consistent with pulmonary edema. She received 1x dose Lasix with resolution. Today she is resting comfortably in bedside chair. Scheduled Meds:Scheduled Meds[1] Continuous Infusions:Continuous Meds[2] Objective: Last Vitals: BP MAP 133/74 (11/15/24 050) 91 (11/15/24501) Arterial BP MAP Temp 36.8 C (98.2 F) (11/15/24416) Pulse 73 (11/15/24 050) Resp 24 (11/15/24501) SpO2 97 % (11/15/24501) Weight 74.9 kg (165 lb 2 oz) (11/15/24416) BMI Body mass index is 29.25 kg/m . I/O: 11/14 0700 - 11/15 0659 In: 600 Out: 4500 [Urine:4500] Ventilator: FiO2 (%): (!) 4 % Oxygen Delivery: O2 Flow Rate (L/min): 2 L/min Invasive Lines / Tubes / Drains: Peripheral IV 11/13/24 Right Antecubital (Active) Number of days: 0 Peripheral IV 11/13/24 Anterior;Distal;Right Forearm (Active) Number of days: 0 External Urinary Catheter (Active) Number of days: 0 Central Line Indication: NA - patient does not have a central line Rojo Indications: NA - patient does not have a Rojo catheter Restraints: NA - patient is not restrained. Wounds: Constitutional: General Appearance [x]WDWN []Obese []Cachectic []Thin []Ill Eyes: Inspection of Pupils/Irises Pupils round and react: [x]Yes []No Sclera: []Icteric [x]Non-Icteric Inspection of Conjunctiva/Lids Conjunctiva: []Injected [x]Non-Injected Lids: [x]Intact []Lesion Present ENT/Mouth: External Inspection of ears/nose [x] Normal [] Scar/Lesion/Mass Inspection of teeth/lips/gums Dentition: []Pauma Teeth []Dentures Lips/Gums: [x]Intact []Lesion Present Mucosa: [x]Spurgeon []Moist []Dry Neck: External Appearance Overall Appearance: [x]Normal []Lesion/Mass/Crepitus Present Trachea midline: [x]Yes []No Thyroid []Normal []Enlarged []Tender []Mass []Absent Respiratory: Respiratory effort []Labored [x]Non-Labored [] Mechanically-Ventilated Auscultation [x]Clear []Crackles []Wheezes []Rhonchi Cardiovascular: Auscultation Rate: [x]Regular []Irregular []Tachycardia []Bradycardia Rhythm: [x]Regular []Irregular Murmur: []Present [x]Absent Extremities Peripheral Edema: []Present [x]Absent Varicosities: []Present [x]Absent Gastrointestinal: Abdomen Palpation: [x]Soft []Firm []Tender [x]Non-Tender []Distended [x]Non-distended Mass: []Present []Absent Bowel Sounds: [x]Present []Absent Hernia: []Present []Absent Liver/Spleen: []Hepatosplenomegaly []Organomegaly Absent Musculoskeletal: Inspection of Digits and Nails Cyanosis: []Present [x]Absent Clubbing: []Present [x]Absent Ischemia: []Present [x]Absent Infection: []Present [x]Absent Extremities TRIVEDI Equally: Except ([]RUE []RLE []LUE []LLE) Strength/Tone: Intact and Normal ([]RUE []RLE []LUE []LLE) Skin: Inspection [x]Normal []Rash []Lesion []Ulcer Palpation [x]Warm []Cool [x]Dry []Clammy []Nodules []Induration []Skin-tightening Cap-Refill: [] <3 sec [] >3 seconds (delayed) Neurologic: GCS EYE: 4 - Opens spontaneously GCS MOTOR: 6 - Obeys commands for movement GCS VERBAL: 5 - Oriented to person, place, time Total GCS: 15 [] Sensation grossly intact Psych: Mental Status Alert: [x]Yes [] No Oriented: []x0 []X1 []X2 []x3 Mood/Affect [x]Normal []Flat []Agitated []Depressed []Anxious []Calm []Sedated [x]NAD Select Labs within last 24 hours- BMP: Recent Labs 11/13/24192511/14/2451511/15/24418 NA 142 141 141 K 3.1* 3.7 3.1* CL 109* 108* 100 CO2 21* 27 31 BUN 11 13 13 CREATININE 0.79 0.72 0.79 CALCIUM 7.5* 8.7* 8.8 MG 1.7 1.7 1.8 PHOS 3.0 2.5 1.8* LFTs: Recent Labs 11/13/2495011/13/24 1022 11/13/24192511/14/2451511/15/24418 AST 34* -- -- 32 32 ALT 11 -- -- 7 10 PROT 6.5 -- -- 5.3* 6.1* ALBUMIN 3.2* -- -- 2.5* 3.2* BILITOT 0.9 -- -- 0.6 0.6 BILIRUBINU -- Negative -- -- -- ALKPHOS 66 -- -- 54 52 LIPASE -- -- 4 -- -- Glucose: Recent Labs 11/13/24950 11/13/24 1926 11/14/24 0511/15/24 041 GLUCOSE 152* 141* 108 168* Procal: No results for input(s): PROCAL in the last 72 hours. CBC: Recent Labs 11/13/24 0951 11/14/24 0516 11/14/24199911/15/24418 WBC 12.7* 18.2* -- 8.6 HGB 11.2* 9.8* 8.6* 9.2* 8.5* HCT 34.2* 30.6* -- 28.7* PLT 184 160 -- 133* MCV 84.0 86.0 -- 82.9 RDW 20.2* 20.6* -- 20.1* ABGs: Recent Labs 11/13/24 0951 11/14/241999 [id number] Nasal Cannula (LPM) Nasal Cannula (LPM) Lactic Acid: Recent Labs 11/13/24 2120 11/14/24 0115 11/14/24515 LACTATE 6.1* 2.9* 1.4 INR: Recent Labs 11/13/24 1826 11/14/24 0516 11/15/24418 INR 2.3* 2.3* 3.3* Cardiac Injury Profile: No results for input(s): CKTOTAL, CKMB, TROPONINI in the last 72 hours. Labs in Last 3 months: Lab Results Component Value Date TSH 0.69 11/14/2024 INR 3.3 (H) 11/15/2024 Microbiology- Urine Cx: Lab Results Component Value Date URINECX >100,000 CFU/mL Escherichia coli (A) 11/13/2024 Blood Cx: Lab Results Component Value Date BLOODCX Gram-negative bacilli (AA) 11/13/2024 Sputum Cx: No results found for: RESPCULT Gram Stain: No results found for: LABGRAM PNA PCR: Lab Results Component Value Date HUMANMETAPNE Not Detected 11/13/2024 COVID19: No results found for: COVID19 Legionella Ag: No results found for: LEGIONELLAPN Strep Ag: No results for input(s): STREPPNEUMO in the last 72 hours. Imaging- No new imaging to review Assessment and Plan: Principal Problem: Transient alteration of awareness Assessment/Plan: Septic shock - currently off vasopressors Bacteremia d/t E.coli UTI d/t E.coli NSTEMI type II Coronary artery disease Paroxysmal atrial fibrillation COPD, not in acute exacerbation Chronic normocytic anemia, at baseline Frequent falls -Antibiotics broadened to ertapenem -Repeat bcx obtained today, will follow -ID consulted, will appreciate recommendations -TTE with LVEF 55%, grade II diastolic dysfunction -Bilateral lower extremity duplex negative for VTE -Cardiology consulted d/t elevated troponin, no concern for ACS -PT/OT ordered -WASHHOUSE WORKER following, recommend easy to chew diet GI Prophylaxis: Pantoprazole PO DVT Prophylaxis: Full anticoagulation - Warfarin Disposition: Transfer to PCU Critical Care Time: 42 minutes Total critical care time caring for this patient with life threatening, unstable organ failure, including direct patient contact, management of life support systems, review of data including imaging and labs, discussions with other team members and physicians, excluding procedures. Some elements copied from my notes, which have been updated where appropriate. All reflect current medical decision making from 11/15/24. Physical Exam listed was completed in entirely on 11/15/24 and is unchanged except where noted. [1] aspirin, 81 mg, Oral, Daily cetirizine, 5 mg, Oral, Daily dexAMETHasone, 4 mg, IntraVENous, q6h ertapenem, 1,000 mg, IntraVENous, q24h folic acid, 1 mg, Oral, Daily ipratropium-albuterol, 3 mL, Nebulization, 4x daily [Held by provider] isosorbide mononitrate ER, 30 mg, Oral, Daily [Held by provider] lisinopril, 5 mg, Oral, Daily [Held by provider] metoprolol tartrate, 25 mg, Oral, BID montelukast, 10 mg, Oral, Nightly mupirocin, 1 Application, Nasal, BID pantoprazole, 40 mg, Oral, qAM AC pravastatin, 80 mg, Oral, Nightly sodium chloride 0.9%, 5-40 mL, IntraVENous, 2 times per day trospium, 20 mg, Oral, Daily [2] Patient with tachypnea/resp distress. No respiratory issues earlier in day. Did receive Ertapenem earlier evening along with additional 500 ml fluid bolus and Albumin. Also had MBS this afternoon Patient did have small amount of epistaxis. Small amount of blood at lips, none in Oropharynx, no appreciated swelling, tongue swelling Do hear audible wheezing. There is some wheezing on auscultation of neck. No stridor. Lung sounds are clear. Skin with no hives, no urticaria. Tx with one racemic epi nebulizer. Dexamethasone 4 mg Q6 x 4 doses Check CXR, is positive 3.5 L, BNP was elevated at 8878. May need lasix? Nutrition Assessment Type and Reason for Visit: Initial, Positive Nutrition Screen (weight loss/PO) Nutrition Recommendations/Plan: Modify diet to Adult diet Dysphagia - Minced and Moist; Gluten Free to follow WASHHOUSE WORKER recommendation s/p MBSS today. Initiate Magic cup once daily per MNT protocol. Magic cup provides 290 kcals, 9 g protein per serving. Please document pt's PO intakes via flowsheet to accurately assess PO intake adequacy. Monitor intakes, weights, and labs weekly. RD will follow. Malnutrition Assessment: Malnutrition Status: At risk for malnutrition (Comment) Context: Acute Illness Findings of the 6 clinical characteristics of malnutrition: Energy Intake: 75% or less of estimated energy requirements for 7 or more days Weight Loss: No significant weight loss Body Fat Loss: Unable to assess Muscle Mass Loss: Unable to assess Fluid Accumulation: Mild Extremities Finish Off Operator Strength: Not Performed Nutrition Assessment: Pt is a 74 y/o female admitted to [facility] for complaints of pain all over in the ab and back areas and high grade fevers. Pt is s/p MBSS today, WASHHOUSE WORKER recommended Minced and Moist textures with thin liquids. Pt reported that her UBW was 179#. Per documented weight hx, pt used to weigh 145# (08/17/24) Most recent Documented weight this admit per bed scale 165#. 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 Bed scale per RD reweigh this afternoon was 91.9kg (202#)- pt doubted accuracy of this weight. Pt did have a lot of extra items on the bed which were likely contributing. Pt stated that she has taken Magic cup at the facility before and agreed to receive again. Denies any GI intolerance from Magic cup. Declined Ensure for now Estimated Daily Nutrient Needs: Energy Requirements Based On: Kcal/kg Weight Used for Energy Requirements: [place] Weight for Energy Calculation (kg): 52 kg Total Energy Requirements (kcals/day): 2404-8778 kcals (25-30 kcals/kg) Weight Used for Protein Requirements: [place] Weight in Kg Used for Protein Requirements: 52 kg Estimated Total Protein (g/day): 52-62g (1-1.2g/kg) Estimated Daily Total Fluid (ml/day): 1300 ml/day or per MD Nutrition Related Findings: non pitting BLE edema; Albumin 2.5, Corrected ca++ 9.66, Nt pro BNP 8878, Lactic Acid 1.4, Hgb 8.6, Hct 30.6; Coumadin, Rocephin, ASA, folvite, PPI Wound Type: (red coccyx) Current Nutrition Therapies: Adult diet Dysphagia - Minced and Moist; Gluten Free Current Oral Intake Average Meal Intake: 26-50% Average Supplements Intake: None Ordered Anthropometric Measures: Height: 160 cm (5' 3) Current Body Weight: 74.8 kg (165 lb) Weight Source: Bed Scale Admission Body Weight: 74.8 kg (165 lb) Usual Body Weight: 65.8 kg (145 lb) (08/17/24) % Weight Change (Calculated): 13.8 [place] Body Weight (lbs) (Calculated): 115 lbs [place] Body Weight (Kg) (Calculated): 52 kg % [place] Body Weight (Calculated): 143.5 % BMI (kg/m2) (Calculated): 29.2 Weight Adjustment For: No Adjustment BMI Categories: Overweight (BMI 25.0-29.9) Nutrition Diagnosis: Inadequate oral intake related to inadequate protein-energy intake as evidenced by intake 26-50% Swallowing difficulty related to partial or complete edentulism, altered GI structure as evidenced by swallow study results, poor dentition Nutrition Interventions: Nutrition Education/Counseling: No recommendation at this time Coordination of Nutrition Care: Continue to monitor while inpatient, Speech Therapy, Swallow Evaluation Plan of Care discussed with: Patient, WASHHOUSE WORKER/student Goals: Goals: PO intake 75% or greater, by next RD assessment, other (specify) Specify Other Goals: Pt will tolerate diet textures with ease of swallow and mastication Nutrition Monitoring and Evaluation: Behavioral-Environmental Outcomes: Readiness for Change Food/Nutrient Intake Outcomes: Diet Advancement/Tolerance, Food and Nutrient Intake, Supplement Intake Physical Signs/Symptoms Outcomes: Biochemical Data, Chewing or Swallowing, GI Status, Nausea or Vomiting, Fluid Status or Edema, Nutrition Focused Physical Findings, Weight, Skin Discharge Planning: Continue current diet, Continue Oral Nutrition Supplement Charles Madrigal RD Contact: *[phone] or via Secure Chat Spiritual Care Note [facility] Palliative Care Patient Name:Divya Joseph Chief Complaint: Chief Complaint Patient presents with Altered Mental Status From [facility]. With AMS. Pt c/o of not feeling well. Pt with abd pain. Axo x 3 pt with temp of 100.3 Reason for visit: Initial Visit Services Provided To:patient and care team Background and visit note: Introduction and explanation of role. Patient wearing nasal canula. Patient is a . Spouse in 2001. Patient was for 17 years. Patient was baptized [employer] but is no longer affiliated with the [employer] due yarsani hurt. Patient shared that even though she is not going to [employer], she has a relationship God. Patient shared, I see God everywhere but I wasn't seeing Him at [employer]. Patient shared that she feels a peace knowing that God is with her. Provided empathetic listening and supportive prayer. Patient is supported by her brother and [id number]. Is there spiritual distress? NO Comment: Interventions: spiritual support provided, emotional support provided, empathetic listening, and validated feelings. Care Plan: spiritual reflection, find peace/acceptance, and connect to higher power. Follow Up: PRN. Debriefed: with patients nurse. Derek Galvez 11/14/24 Images from the original note were not included. OCCUPATIONAL THERAPY [facility] Name/MRN: Divya Joseph ([id number]) Date: 11/14/2024 Evaluation is being deferred at present because another caregiver is actively providing care for the patient and pt is currently off of the floor . Pt unavailable with other provider upon arrival for second attempt. Will continue to monitor and re-attempt during current admission. Evelyn Nguyen OT Images from the original note were not included. PHYSICAL THERAPY [facility] Name/MRN: Divya Joseph ([id number]) Date: 11/14/2024 Evaluation is being deferred at present because pt is currently off of the floor . Adeline You PT Images from the original note were not included. Speech-Language Pathology SPEECH LANGUAGE PATHOLOGY [facility]'s Modified Barium Swallow Study Patient Name: Divya Joseph Evaluation Date: 11/14/2024 Date of : 1950 Admission Date: 11/13/2024 9:27 AM Age: 74 y.o. Room/Bed: 222-03/222-03 A IMPRESSION: The patient presents with mild - moderate oral phase dysphagia associated with reduced oral bolus and coordination of oral transit and oral residue. There is no pharyngeal phase dysphagia however noted gagging and cervical osteophytes. There was no laryngeal penetration or aspiration observed. RECOMMENDATION: Recommend Minced and moist solids and Thin liquids and meds whole in puree, as tolerated and the following precautions: - Upright positioning for all PO intake - Slow rate of intake - Small bites/sips - Rest periods during meals Penetration-Aspiration Scale: 1. No contrast enters the airway. Pt would benefit from skilled acute WASHHOUSE WORKER services to ensure patient tolerance of the recommended diet and assess for potential diet upgrade. (If dentures) Frequency: 3 days/wk for 2 weeks Barriers: increased work of breathing Prognosis: fair D/C Recommendations: to be determined General Initial MBS completed to assess the efficiency of her swallow function, rule out aspiration, and make recommendations regarding safe dietary consistencies, effective compensatory strategies, and safe eating environment. Subjective: Pt was alert, accompanied by RN. Appear to have tardive dyskinesia Radiologist: GILSON Cowan/ Rosanne Mir Md Prior MBSS?: No documentation of same. Pt indicated that she had study at [facility]. Unclear of results. Indicated something that was stuck in her throat. C/o pill sticking in the past, then clearing with a drink of coffee. Baseline Diet: Regular diet suspected per pt report. Unable to locate in transfer information. Current diet: Dietary Orders (From admission, onward) Start Ordered 11/13/241745 Adult diet Regular Diet effective now Question: Diet type Answer: Regular 11/13/241744 Textures tested: - thin liquid, (cup edge, straw) - mildly thick liquid, (cup edge) - puree, (teaspoon) - soft and bite sized solids Patient position: lateral Past Medical History: Medical History[1] Past Surgical History: Surgical History[2] Admission Diagnosis: Patient Active Problem List Diagnosis Date Noted Transient alteration of awareness 11/13/2024 Pain: complain of pain legs and back. Pain medications have changed from what she was previously on; RN present for discussion Reason for current admission: Patient is a 74-year-old female from [facility] was sent here with complaint of fever high-grade, patient also complained of abdominal pain, she is hypoxic in the emergency department, she complains of pain all over mostly in the back she has been having her recent falls. AMS, not acting like herself. Globus sensation complaint during bedside swallowing evaluation, increased work of breathing and coughing with po trials during initial evaluation. Oral Phase Mild to moderate disorganized oral transit. Noted anterior to posterior rocking to and fro 3-4 times prior to initiation of swallowing at times. She did demonstrate functional control. Pt experienced true dislike for barium and noted some gagging while swallowing the peaches mixed with barium, this required prolonged mastication and 3 swallows to completely clear all of residuals. (Edentulous status, does not want dentures, still at nursing facility). Mild to trace oral residuals with mildly thick, pudding and thin liquids. Re-swallow is beneficial to clear. Pharyngeal Phase Pharyngeal phase of swallow appeared WNL. The onset of the swallow is timely. Pharyngeal contraction is strong. Hyolaryngeal excursion and epiglottic deflection are complete. Pharyngeal clearance is appropriate. There is no aspiration or laryngeal penetration observed. Noted cervical osteophytes at C4, C5-6. Pt did demonstrate gagging when bolus of peaches reached oropharynx without airway compromise. +coughing on 2 other occasions without airway compromise. Increased work/effort of breathing throughout swallowing study observed. Esophageal Phase The esophagus was not visualized below the level of the UES. Noted: cricopharyngeal hypertrophy Education The preliminary results of this evaluation were briefly shared with the patient. Goals Patient Stated Goal: To eat what I want. Encounter Problems Encounter Problems (Active) Swallowing Patient will participate in instrumental assessment of swallowing as appropriate Start: 11/14/24 Expected End: 11/16/24 Patient will tolerate the least restrictive diet consistency to allow for safe consumption of daily meals Start: 11/14/24 Expected End: 11/28/24 Patient will demonstrate safe swallowing Intervention/techniques Start: 11/14/24 Expected End: 11/28/24 Therapy Time WASHHOUSE WORKER Individual Minutes Time In: 1315 Time Out: 1338 Minutes: 23 HONORIO Stephens [1] Past Medical History: Diagnosis Date Altered mental status, unspecified Ataxia Atherosclerotic heart disease Bradycardia, unspecified Cognitive communication deficit COPD (chronic obstructive pulmonary disease) (HCC) i was told i had COPD, then I was told i wasn't, i don't know for sure Difficulty walking Dysphagia, oropharyngeal phase Dyspnea Essential (primary) hypertension Gastro-esophageal reflux disease without esophagitis Muscle weakness (generalized) Need for assistance with personal care Other chronic pain Pain in left shoulder Paroxysmal atrial fibrillation (HCC) Peripheral vascular disease, unspecified (HCC) Presence of cardiac pacemaker Repeated falls Sick sinus syndrome (CMS/HCC) (HCC) Unsteadiness on feet Weakness [2] Past Surgical History: Procedure Laterality Date BYPASS GRAFT 2006 triple bypass. two grafted from left leg, one from right leg. used for coronary artery CARDIAC PACEMAKER PLACEMENT 2013 did another one 2023 CHOLECYSTECTOMY 1992 Images from the original note were not included. Speech-Language Pathology SPEECH LANGUAGE PATHOLOGY [facility] Bedside Swallow Evaluation Patient Name: Divya Joseph Evaluation Date: 11/14/2024 Date of : 1950 Admission Date: 11/13/2024 9:27 AM Age: 74 y.o. Room/Bed: 222-03/222-03 A IMPRESSION: S/s oropharyngeal dysphagia. Intermittent overt clinical s/s pulmonary compromise with PO. Risk factors for aspiration history of dysphagia, recent hypoxic respiratory failure RECOMMENDATION: Recommend strict NPO until MBSS Dysphagia NOMS: Level 2: Individual is not able to swallow safely by mouth for nutrition and hydration, but may take some consistency with consistent maximal cues in a therapy env only. Alternative method of feeding is required. Recommend modified barium swallow study (MBSS) to further assess. Subjective Patient alert and cooperative. Seen upright in bed. Answers all basic questions with clear vocal quality. Follows all basic commands. Visitors at bedside - Brother. Spoke with LINDA Leslie who cleared pt to be evaluated. Dysphagia History: Prior MBS completed in 2023 at [facility] with results unclear and unable to located in EMR. Patient mentioned that previous WASHHOUSE WORKER who administered MBSS stated something gets stuck in the bottom of my throat, they found a pill stuck sitting in my throat,, they told me to eat regular diet. Further investigation needed. Baseline Diet: Regular Current Diet: Dietary Orders (From admission, onward) Start Ordered 11/14/24 1452 Supplement:Dinner; Vanilla Magic Cup Until discontinued Question Answer Comment Frequency Dinner Select supplement: Vanilla Magic Cup 11/14/24 1451 11/14/24 1451 Adult diet Dysphagia - Minced and Moist; Gluten Free Diet effective now Question Answer Comment Diet type Dysphagia - Minced and Moist Other restriction(s): Gluten Free 11/14/24 1451 Tube Feeding: no Tracheostomy: no Recent Chest Xray/CT of Chest: CT chest angiogram w and/or wo IV contrast 11/13/2024 Impression Examination is limited due to motion artifact. There is decreased attenuation involving multiple segmental and subsegmental pulmonary artery supplying the right upper lobe which could represent pulmonary emboli, however evaluation is limited due to the motion artifact. The RV/LV ratio is less than one.. . Report Dictated on Electronically Signed By: Wong Srinivasan MD Electronically Signed Date/Time: 11/13/2024 11:29 AM EDT Oxygen: 3L/min Oxygen Therapy: Supplemental oxygen O2 Delivery Method: Nasal cannula O2 Flow Rate (L/min): 3 L/min Past Medical History: Medical History[1] Past Surgical History: Surgical History[2] Admission Diagnosis: Patient Active Problem List Diagnosis Date Noted Transient alteration of awareness 11/13/2024 History of Present Illness: Patient is a 74-year-old female from [facility] was sent here with complaint of fever high-grade, patient also complained of abdominal pain, she is hypoxic in the emergency department, she complains of pain all over mostly in the back she has been having her recent falls, Patient Complaint: Having pain all over Pain: Pt denies any current pain. PPE Worn: gloves Objective Bedside swallow eval completed. Oral Motor Mechanism Facial Movement (CN VII) - WFL Labial Structure/Function (CN VII) - WFL Lingual Structure/Function (CN XII) - Left generalized weakness Dentition - with no dentures present Oral Hygiene: clean with dry mouth Swallowing Examination PO Trials - ice chips, (fed by clinician) - thin liquid, (cup edge, fed by clinician) - puree, (teaspoon, fed by clinician) - soft and bite sized solids (fruit cup) - regular solids (gluten free cookie) - fed by clinician and self administered Oral Phase Pt with adequate oral receipt of PO trials. No anterior spillage. Mastication with solids appeared incomplete and prolonged due to lack of dentition. Oral transit time appears WFL. Min oral residue. Additional Observations: Patient unable to fully masticate, expect for small bite of peaches. Patient was unable to chew solids and expectorated. Patient said dentures were at home. Pharyngeal Phase Hyolaryngeal excursion clinically appears adequate and timely per palpation. 1 swallows palpated per bolus, likely indicative of questionable pharyngeal clearance. Overt clinical s/s pulmonary compromise with Regular solids, Easy to chew solids, Pureed solids, and Thin liquids as evidenced by immediate cough after solids, altered ataxic vocal quality, increased WOB. Additional Observations: MBSS requested due to increased WOB with all PO trials and patient mentioning she felt something stuck in pharyngeal area. Education Education Given: potential for additional diagnostic testing Given To: patient Response: verbalizes understanding Goals Patient Stated Goal: not stated Encounter Problems Encounter Problems (Active) Swallowing Patient will participate in instrumental assessment of swallowing as appropriate Start: 11/14/24 Expected End: 11/16/24 Patient will tolerate the least restrictive diet consistency to allow for safe consumption of daily meals Start: 11/14/24 Expected End: 11/28/24 Patient will demonstrate safe swallowing Intervention/techniques Start: 11/14/24 Expected End: 11/28/24 Therapy Time WASHHOUSE WORKER Individual Minutes Time In: 1022 Time Out: 1045 Minutes: 23 HONORIO Pulliam Wire Winding Machine Operator [1] Past Medical History: Diagnosis Date Altered mental status, unspecified Ataxia Atherosclerotic heart disease Bradycardia, unspecified Cognitive communication deficit COPD (chronic obstructive pulmonary disease) (HCC) i was told i had COPD, then I was told i wasn't, i don't know for sure Difficulty walking Dysphagia, oropharyngeal phase Dyspnea Essential (primary) hypertension Gastro-esophageal reflux disease without esophagitis Muscle weakness (generalized) Need for assistance with personal care Other chronic pain Pain in left shoulder Paroxysmal atrial fibrillation (HCC) Peripheral vascular disease, unspecified (HCC) Presence of cardiac pacemaker Repeated falls Sick sinus syndrome (CMS/HCC) (HCC) Unsteadiness on feet Weakness [2] Past Surgical History: Procedure Laterality Date BYPASS GRAFT 2006 triple bypass. two grafted from left leg, one from right leg. used for coronary artery CARDIAC PACEMAKER PLACEMENT 2013 did another one 2023 CHOLECYSTECTOMY 1992 Cosigned by HONORIO Stephens at 11/14/2024 4:01 PM EDT [facility] Anticoagulation Management Service ([facility]) Inpatient Warfarin Consult HPI: Divya Joseph is a 74 y.o. 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 Medical History[1] Patient is on warfarin for Afib and has a goal INR 2.0 - 3.0. Warfarin is currently managed by [facility]. Pt's home dose of warfarin is 2.5mg daily per [place] at the facility. Pt's last INR in the clinic was 2.6 on 10/29. S/sx of bleeding= hgb 8.6 Interacting medications= ASA Labs: Recent Labs 11/13/24 0951 11/14/24 0516 HGB 11.2* 9.8* 8.6* HCT 34.2* 30.6* PLT 184 160 Recent Labs 11/14/24 0516 INR 2.3* Date INR Dose 11/14 2.3 2.5mg 11/13 2.3 4mg Assessment/Plan: 1. INR is therapeutic. Will give home dose of warfarin 2.5mg today. 2. Monitor for s/s of bleeding and drug interactions. Will adjust dose accordingly. 3. Warfarin is managed by [facility] outpatient. [facility] will manage inpatient and sign off at discharge. Luly Hanley RPh, PharmD [facility] Consult Service is available daily 1729-2050 via [employer] Secure Chat. [1] Past Medical History: Diagnosis Date Altered mental status, unspecified Ataxia Atherosclerotic heart disease Bradycardia, unspecified Cognitive communication deficit COPD (chronic obstructive pulmonary disease) (HCC) i was told i had COPD, then I was told i wasn't, i don't know for sure Difficulty walking Dysphagia, oropharyngeal phase Dyspnea Essential (primary) hypertension Gastro-esophageal reflux disease without esophagitis Muscle weakness (generalized) Need for assistance with personal care Other chronic pain Pain in left shoulder Paroxysmal atrial fibrillation (HCC) Peripheral vascular disease, unspecified (HCC) Presence of cardiac pacemaker Repeated falls Sick sinus syndrome (CMS/HCC) (HCC) Unsteadiness on feet Weakness ICU Progress Note Name: Divya Joseph : 1950(74 y.o.) Date: 11/14/24 Team: MICU Attending: Dede Subjective: Hospital Summary: 74 year old female with a PMH of CAD s/p CABG, HTN, A-fib, SSS s/p PPM, PVD, COPD, Anemia, Dysphagia, Debility, who presents to the ED today from SNF with altered mental status. Patient complained of abdominal pain and difficulty urinating. Initially admitted to [facility] for infectious work up and empiric antibiotics. However became hypotensive requiring vasopressor support and transfer to ICU. Interval Events: Ms Joseph seen and evaluated at bedside. Resting comfortably in bed. Off vasopressor support this morning. Alert and interactive. Mildly confused. Scheduled Meds:Scheduled Meds[1] Continuous Infusions:Continuous Meds[2] Objective: Last Vitals: BP MAP 122/50 (11/14/24602) 71 (11/14/24602) Arterial BP MAP Temp 36.7 C (98.1 F) (11/14/24401) Pulse 60 (11/14/24602) Resp 21 (11/14/24602) SpO2 98 % (11/14/24602) Weight 75.2 kg (165 lb 12.6 oz) (11/13/241923) BMI Body mass index is 29.37 kg/m . I/O: 11/13 699 - 11/14 658 In: 3961 [I.V.:2961] Out: 650 [Urine:650] Ventilator: Oxygen Delivery: O2 Flow Rate (L/min): 3 L/min Invasive Lines / Tubes / Drains: Peripheral IV 11/13/24 Right Antecubital (Active) Number of days: 0 Peripheral IV 11/13/24 Anterior;Distal;Right Forearm (Active) Number of days: 0 External Urinary Catheter (Active) Number of days: 0 Central Line Indication: NA - patient does not have a central line Rojo Indications: NA - patient does not have a Rojo catheter Restraints: NA - patient is not restrained. Wounds: Constitutional: General Appearance [x]WDWN []Obese []Cachectic []Thin []Ill Eyes: Inspection of Pupils/Irises Pupils round and react: [x]Yes []No Sclera: []Icteric [x]Non-Icteric Inspection of Conjunctiva/Lids Conjunctiva: []Injected [x]Non-Injected Lids: [x]Intact []Lesion Present ENT/Mouth: External Inspection of ears/nose [x] Normal [] Scar/Lesion/Mass Inspection of teeth/lips/gums Dentition: []Pauma Teeth []Dentures Lips/Gums: [x]Intact []Lesion Present Mucosa: [x]Spurgeon []Moist []Dry Neck: External Appearance Overall Appearance: [x]Normal []Lesion/Mass/Crepitus Present Trachea midline: [x]Yes []No Thyroid []Normal []Enlarged []Tender []Mass []Absent Respiratory: Respiratory effort []Labored [x]Non-Labored [] Mechanically-Ventilated Auscultation [x]Clear []Crackles []Wheezes []Rhonchi Cardiovascular: Auscultation Rate: [x]Regular []Irregular []Tachycardia []Bradycardia Rhythm: [x]Regular []Irregular Murmur: []Present [x]Absent Extremities Peripheral Edema: []Present [x]Absent Varicosities: []Present [x]Absent Gastrointestinal: Abdomen Palpation: [x]Soft []Firm []Tender [x]Non-Tender []Distended [x]Non-distended Mass: []Present []Absent Bowel Sounds: [x]Present []Absent Hernia: []Present []Absent Liver/Spleen: []Hepatosplenomegaly []Organomegaly Absent Musculoskeletal: Inspection of Digits and Nails Cyanosis: []Present [x]Absent Clubbing: []Present [x]Absent Ischemia: []Present [x]Absent Infection: []Present [x]Absent Extremities TRIVEDI Equally: Except ([]RUE []RLE []LUE []LLE) Strength/Tone: Intact and Normal ([]RUE []RLE []LUE []LLE) Skin: Inspection [x]Normal []Rash []Lesion []Ulcer Palpation [x]Warm []Cool [x]Dry []Clammy []Nodules []Induration []Skin-tightening Cap-Refill: [] <3 sec [] >3 seconds (delayed) Neurologic: GCS EYE: 4 - Opens spontaneously GCS MOTOR: 6 - Obeys commands for movement GCS VERBAL: 5 - Oriented to person, place, time Total GCS: 15 [] Sensation grossly intact Psych: Mental Status Alert: [x]Yes [] No Oriented: []x0 []X1 []X2 []x3 Mood/Affect [x]Normal []Flat []Agitated []Depressed []Anxious []Calm []Sedated [x]NAD Select Labs within last 24 hours- BMP: Recent Labs 11/13/2495011/13/24192511/14/24 0516 NA 142 142 141 K 3.1* 3.1* 3.7 CL 105 109* 108* CO2 27 21* 27 BUN 9 11 13 CREATININE 0.85 0.79 0.72 CALCIUM 8.6* 7.5* 8.7* MG -- 1.7 1.7 PHOS -- 3.0 2.5 LFTs: Recent Labs 11/13/2451 11/13/24 1022 11/13/24192511/14/24 0516 AST 34* -- -- 32 ALT 11 -- -- 7 PROT 6.5 -- -- 5.3* ALBUMIN 3.2* -- -- 2.5* BILITOT 0.9 -- -- 0.6 BILIRUBINU -- Negative -- -- ALKPHOS 66 -- -- 54 LIPASE -- -- 4 -- Glucose: Recent Labs 11/13/2495011/13/24192511/14/24 0516 GLUCOSE 152* 141* 108 Procal: No results for input(s): PROCAL in the last 72 hours. CBC: Recent Labs 11/13/2495011/14/24 0516 WBC 12.7* 18.2* HGB 11.2* 9.8* 8.6* HCT 34.2* 30.6* PLT 184 160 MCV 84.0 86.0 RDW 20.2* 20.6* ABGs: Recent Labs 11/13/24 0951 [id number] Nasal Cannula (LPM) Lactic Acid: Recent Labs 11/13/24211911/14/24 0115 11/14/24 0516 LACTATE 6.1* 2.9* 1.4 INR: Recent Labs 11/13/24182511/14/24 0516 INR 2.3* 2.3* Cardiac Injury Profile: No results for input(s): CKTOTAL, CKMB, TROPONINI in the last 72 hours. Labs in Last 3 months: Lab Results Component Value Date INR 2.3 (H) 11/14/2024 Microbiology- Urine Cx: No results found for: URINECX Blood Cx: Lab Results Component Value Date BLOODCX Gram-negative bacilli (AA) 11/13/2024 Sputum Cx: No results found for: RESPCULT Gram Stain: No results found for: LABGRAM PNA PCR: Lab Results Component Value Date HUMANMETAPNE Not Detected 11/13/2024 COVID19: No results found for: COVID19 Legionella Ag: No results found for: LEGIONELLAPN Strep Ag: No results for input(s): STREPPNEUMO in the last 72 hours. Imaging- No new imaging to review Assessment and Plan: Principal Problem: Transient alteration of awareness Assessment/Plan: Septic shock Bacteremia d/t E.coli UTI d/t E.coli Lactic acidosis Low-intermediate risk PE Elevated troponin Coronary artery disease Paroxysmal atrial fibrillation COPD, not in acute exacerbation Chronic normocytic anemia, at baseline Frequent falls -Vasopressor support as needed to maintain MAP >65 -Continue ceftriaxone -Repeat bcx tomorrow -ID consulted, will appreciate recommendations -TTE with LVEF 55%, grade II diastolic dysfunction -Bilateral lower extremity duplex negative for VTE -Cardiology consulted d/t elevated troponin -PT/OT/WASHHOUSE WORKER consulted GI Prophylaxis: Pantoprazole PO DVT Prophylaxis: Full anticoagulation - Warfarin Disposition: Remain in ICU Status Critical Care Time: 45 minutes Total critical care time caring for this patient with life threatening, unstable organ failure, including direct patient contact, management of life support systems, review of data including imaging and labs, discussions with other team members and physicians, excluding procedures. [1] aspirin, 81 mg, Oral, Daily cefTRIAXone, 2,000 mg, IntraVENous, q24h cetirizine, 5 mg, Oral, Daily folic acid, 1 mg, Oral, Daily ipratropium-albuterol, 3 mL, Nebulization, 4x daily [Held by provider] isosorbide mononitrate ER, 30 mg, Oral, Daily [Held by provider] lisinopril, 5 mg, Oral, Daily [Held by provider] metoprolol tartrate, 25 mg, Oral, BID montelukast, 10 mg, Oral, Nightly mupirocin, 1 Application, Nasal, BID pantoprazole, 40 mg, Oral, qAM AC pravastatin, 80 mg, Oral, Nightly sodium chloride 0.9%, 5-40 mL, IntraVENous, 2 times per day trospium, 20 mg, Oral, Daily [2] lactated Ringer's, 100 mL/hr, Last Rate: 100 mL/hr (11/13/24 192) norepinephrine in sodium chloride 0.9 %, 2-100 mcg/min, Last Rate: 2 mcg/min (11/14/24 0503) Family Communication Number Called: [phone] Name of Designated Family Hand Bobbin Cleaner: Rey Fagan Relationship: brother Phone Call Outcome: I spoke with the individual listed above. Family Hand Bobbin Cleaner Updated on the Following: Updated on admission for sepsis and UTI, now with hypotension requiring transfer to ICU for vasopressors. documented in this encounter [facility] 11-19-2024 Hospital Discharg e instructions Rosanne Waddell DO - 11/19/2024 1:37 PM EDT Follow up Blood cultures to be drawn on 12/20/24. Rosanne Waddell DO - 11/15/2024 8:08 AM EDT Images from the original note were not included. Continuity of Care Form Patient Name: Divya Joseph : 1950 Admit date: 11/13/2024 Discharge date: Code Status Order: Full Code Advance Directives: N Admitting Physician: Portia Cabrera MD PCP: Rosanne Waddell DO Discharging Nurse: Discharging Hospital Unit/Room#: 222-03/222-03 A Discharging Unit Phone Number: Emergency Contact: Extended Emergency Contact Information Primary Emergency Contact: Rey Fagan Mobile Relation: Brother Preferred language: Burkinan Crisis Manager needed? No Secondary Emergency Contact: Jolene Fagan Mobile Relation: Other Preferred language: Burkinan Crisis Manager needed? No Past Surgical History: Past Surgical History: Procedure Laterality Date BYPASS GRAFT 2006 triple bypass. two grafted from left leg, one from right leg. used for coronary artery CARDIAC PACEMAKER PLACEMENT 2013 did another one 2023 CHOLECYSTECTOMY 1992 Immunization History: There is no immunization history on file for this patient. Active Problems: Medical Problems Problem List * (Principal) Transient alteration of awareness Isolation/Infection: No active isolations No active infections Nurse Assessment: Last Vital Signs: BP 132/62 Pulse 71 Temp 36.8 C (98.2 F) (Oral) Resp (!) 26 Ht 1.6 m (5' 3) Wt 74.9 kg (165 lb 2 oz) SpO2 97% BMI 29.25 kg/m Last documented pain score (0-10 scale): Last Weight: Wt Readings from Last 1 Encounters: 11/15/24 74.9 kg (165 lb 2 oz) Mental Status: {HUONG Patient Mental Status:89198} IV Access: {HUONG IV Access:88527} Nursing Mobility/ADLs: Walking {JAY ADL:95329::Independent} Transfer {JAY ADL:78292::Independent} Bathing {JAY ADL:81816::Independent} Dressing {JAY ADL:47135::Independent} Toileting {JAY ADL:89216::Independent} Feeding {JAY ADL:58061::Independent} Jewelry Manager {JAY ADL:42161::Independent} Med Delivery {yes/no:31995} Wound Care Documentation and Therapy: Elimination: Continence: Bowel: {yes/no:44569} Bladder: {yes/no:64398} Urinary Catheter: {HUONG Urinary Catheter:13197} Colostomy/Ileostomy/Ileal Conduit: {YES / NO:} Date of Last BM: Intake/Output Summary (Last 24 hours) at 11/15/2024 0807 Last data filed at 11/15/2024 0417 Gross per 24 hour Intake 600 ml Output 4500 ml Net -3900 ml I/O last 3 completed shifts: In: 2561 (34.2 mL/kg) [I.V.:1960 (26.2 mL/kg); IV Piggyback:600] Out: 5150 (68.8 mL/kg) [Urine:5150 (1.9 mL/kg/hr)] Weight: 74.9 kg Safety Concerns: {HUONG Safety Concerns:96612} Impairments/Disabilities: {HUONG Impairments/Disabilities:64403} Nutrition Therapy: Current Nutrition Therapy: {HUONG Diet List:01125} Routes of Feeding: {routes of feedin} Liquids: {liquid consistency:09602} Daily Fluid Restriction: {daily fluid restriction:86962} Last Modified Barium Swallow with Video (Video Swallowing Test): {done not done:31323} Treatments at the Time of Hospital Discharge: Respiratory Treatments: Oxygen Therapy: {Therapy; copd oxygen:06763} Ventilator: {HUONG Ventilator:79359} Rehab Therapies: {GEN THERAPY DISCIPLINE SCAL:6989277} Weight Bearing Status/Restrictions: {POD WEIGHT BEARIN} Other Medical Equipment (for information only, NOT a DME order): {Assistive Devices DME:58263} Other Treatments: Patient's personal belongings (please select all that are sent with patient): {HUONG Patient Belongings:59408} RN SIGNATURE: {E-signature:91139} CASE MANAGEMENT/SOCIAL WORK SECTION Inpatient Status Date: 11/13/24 Discharging to Facility/ Agency [facility] [address] [place] [address] Dialysis Facility (if applicable) Name: Address: Dialysis Schedule: Phone: Fax: Museum Archivist/Fitness Centre Manager signature: ICIAN SECTION Name: Divya Joseph Prognosis: excellent Condition at Discharge: stable Rehab Potential (if transferring to Rehab): excellent Recommended Labs or Other Treatments After Discharge: none The individual is being admitted to a nursing facility directly from an [facility] or a unit of a main line health/main line hospitals that is not operated by or licensed by [facility] under section 5119.14 or 5160-3-15.1 5 The individual requires the level of services provided by a nursing facility for the condition for which he or she was treated in the hospital and, Physician Certification: I certify the above information and transfer of Divya Joseph is necessary for the continuing treatment of the diagnosis listed and that she requires residential facility for less than 30 days. Update Admission H&P: No change in H&P PHYSICIAN SIGNATURE: The following attachments cannot be sent through Care Everywhere.Peripherally-Inserted Central Catheter Discharge Instructions (Burkinan)documented in this encounter [facility] 11-19-2024 Note Hospitalist Discharg e Summary Divya Joseph : 1950 Admit date: 11/13/2024 Discharge date: 11/19/2024 Admitting Physician: Portia Cabrera MD Primary Care Physician: Rosanne Waddell DO Visit Status: admission. Code Status: Full Code Discharge Diagnoses: Septic shock E coli bacteremia Ecoli UTI E coli pyelonephritis NSTEMI type 2 demand Hx of CAD with remote CABG Affib Weakness and debility COPD, no acute exacerbation Chronic normocytic anemia, baseline SSS s/p PPM PVD Chronic peripheral neuropathy Hospital Course: Patient with acute metabolic encephalopathy and sepsis on presentation, in setting of E coli bacteremia, E coli UTI, and E coli pyelonephritis, required ICU transfer to due worsening sepsis with shock, required vasopressors. Covered with broad spectrum abx and IV fluids. ID on consult for abx management, planning for likely 4 weeks IV abx on discharge. Repeat BC obtained and negative. She stabilized and was weaned off vasopressor support, and transferred out of ICU on 11/15/24. She is also followed by cardiology, as patient with elevated troponin, deemed to be type 2 demand related elevation of troponin. Echo with LVEF of 55%. Follow INR, coumadin dosing by pharmacy. PT/OT eval and treat. Recommending SNF on discharge. PICC placed on 11/19/24. Patient recommended for IV abx through 12/13/24, with repeat BC to be drawn on 12/20/24. Patient PO intake improved. Labs and vitals reviewed and stable at time of discharge. She is to follow up with PCP and cardiology outpatient in 1-2 weeks. She is discharged to SNF in improved and stable condition on 11/19/24. Consults: IP CONSULT TO WOUND PREVENTION IP CONSULT TO CARDIOLOGY IP CONSULT TO GERIATRICS PHARMACY TO DOSE WARFARIN IP CONSULT TO INFECTIOUS DISEASES IP CONSULT TO PALLIATIVE CARE IP CONSULT TO PULMONOLOGY Discharge Instructions: Diet: Adult diet Easy to Chew; Gluten Free Activity: as tolerated Recommended Outpatient Tests: Disposition: Patient discharged in stable condition to SNF LABS: CBC: Recent Labs 11/17/2445211/18/249911/19/24331 WBC 10.1 10.3 7.5 RBC 3.72* 4.22 3.86 HGB 8.9* 10.3* 9.3* HCT 30.4* 34.5* 32.0* MCV 81.7 81.8 82.9 RDW 19.0* 19.4* 19.1* PLT 191 213 234 BMP: Recent Labs 11/17/2445211/18/249911/19/24332 NA 141 139 139 K 3.6 3.3* 3.7 CL 103 101 103 CO2 29 28 26 BUN 30* 24* 14 CREATININE 0.72 0.72 0.65 GLUCOSE 137* 122* 119* CALCIUM 8.3* 8.3* 8.1* ANIONGAP 9 10 10 LIVER PROFILE:No results for input(s): AST, ALT, BILITOT, ALKPHOS, PROT in the last 72 hours. No lab exists for component: LABALBU PT/INR: Recent Labs 11/17/2445211/18/249911/19/24331 PROTIME 33.1* 31.3* 25.6* INR 3.4* 3.1* 2.6* CARDIAC ENZYMES: No results for input(s): TROPONINI in the last 72 hours. Procalcitonin: No results found for: PROCAL COVID-19 PCR: No results for input(s): COVID19 in the last 72 hours. Vitals: BP (!) 165/74 Pulse 60 Temp 36.5 ?C (97.7 ?F) (Temporal) Resp 17 Ht 5' 3 (1.6 m) Wt 153 lb (69.4 kg) SpO2 99% BMI 27.10 kg/m? Pulse Ox: SpO2 Av.4 % Min: 97 % Max: 100 % Supplemental O2: O2 Flow Rate (L/min): 1 L/min General appearance: No apparent distress, appears stated age, frail female in NAD Respiratory: CTA BL, no wheezing. Cardiovascular: S1 and S2 present, no murmur detected Abdomen: Soft, non-tender, non-distended Skin: Skin color, texture, turgor normal. No rashes or lesions. Distal pulses intact in BL LE, no edema in BL LE. Neurologic: grossly non-focal. Discharge Medications: Medication List START taking these medications albuterol (2.5 MG/3ML) 0.083% nebulizer solution Take 3 mL (2.5 mg) by nebulization every 4 hours as needed for wheezing or shortness of breath. cefTRIAXone 2,000 mg in sodium chloride 0.9 % 50 mL IVPB Infuse 2,000 mg into a venous catheter Every 24 hours for 24 days. CHANGE how you take these medications warfarin 2.5 MG tablet Commonly known as: Coumadin What changed: Another medication with the same name was removed. Continue taking this medication, and follow the directions you see here. CONTINUE taking these medications acetaminophen 325 MG tablet Commonly known as: Tylenol aspirin 81 MG chewable tablet benzonatate 100 MG capsule Commonly known as: Tessalon dicyclomine 20 MG tablet Commonly known as: Bentyl ferrous sulfate 325 (65 Fe) MG EC tablet folic acid 1 MG tablet Commonly known as: Folvite gabapentin 100 MG capsule Commonly known as: Neurontin hydrocortisone 1 % cream isosorbide mononitrate ER 30 MG 24 hr tablet Commonly known as: Imdur Ketoconazole 1 % shampoo lisinopril 5 MG tablet loperamide 2 MG tablet Commonly known as: Imodium A-D loratadine 10 MG tablet Commonly known as: Claritin methocarbamol 500 MG tablet Commonly known as: Robaxin metoprolol tartr (more content not included)... [facility] 11-19-2024 Hospital course Narrative Hospitalist Discharge Summary Divya Joseph : 1950 Admit date: 11/13/2024 Discharge date: 11/19/2024 Admitting Physician: Portia Cabrera MD Primary Care Physician: Rosanne Waddell DO Visit Status: admission. Code Status: Full Code Discharge Diagnoses: Septic shock E coli bacteremia Ecoli UTI E coli pyelonephritis NSTEMI type 2 demand Hx of CAD with remote CABG Affib Weakness and debility COPD, no acute exacerbation Chronic normocytic anemia, baseline SSS s/p PPM PVD Chronic peripheral neuropathy Hospital Course: Patient with acute metabolic encephalopathy and sepsis on presentation, in setting of E coli bacteremia, E coli UTI, and E coli pyelonephritis, required ICU transfer to due worsening sepsis with shock, required vasopressors. Covered with broad spectrum abx and IV fluids. ID on consult for abx management, planning for likely 4 weeks IV abx on discharge. Repeat BC obtained and negative. She stabilized and was weaned off vasopressor support, and transferred out of ICU on 11/15/24. She is also followed by cardiology, as patient with elevated troponin, deemed to be type 2 demand related elevation of troponin. Echo with LVEF of 55%. Follow INR, coumadin dosing by pharmacy. PT/OT eval and treat. Recommending SNF on discharge. PICC placed on 11/19/24. Patient recommended for IV abx through 12/13/24, with repeat BC to be drawn on 12/20/24. Patient PO intake improved. Labs and vitals reviewed and stable at time of discharge. She is to follow up with PCP and cardiology outpatient in 1-2 weeks. She is discharged to SNF in improved and stable condition on 11/19/24. Consults: IP CONSULT TO WOUND PREVENTION IP CONSULT TO CARDIOLOGY IP CONSULT TO GERIATRICS PHARMACY TO DOSE WARFARIN IP CONSULT TO INFECTIOUS DISEASES IP CONSULT TO PALLIATIVE CARE IP CONSULT TO PULMONOLOGY Discharge Instructions: Diet: Adult diet Easy to Chew; Gluten Free Activity: as tolerated Recommended Outpatient Tests: Disposition: Patient discharged in stable condition to SNF LABS: CBC: Recent Labs 11/17/24 0453 11/18/24 0100 11/19/24 0332 WBC 10.1 10.3 7.5 RBC 3.72* 4.22 3.86 HGB 8.9* 10.3* 9.3* HCT 30.4* 34.5* 32.0* MCV 81.7 81.8 82.9 RDW 19.0* 19.4* 19.1* PLT 191 213 234 BMP: Recent Labs 11/17/24 0453 11/18/24 0100 11/19/24 0333 NA 141 139 139 K 3.6 3.3* 3.7 CL 103 101 103 CO2 29 28 26 BUN 30* 24* 14 CREATININE 0.72 0.72 0.65 GLUCOSE 137* 122* 119* CALCIUM 8.3* 8.3* 8.1* ANIONGAP 9 10 10 LIVER PROFILE:No results for input(s): AST, ALT, BILITOT, ALKPHOS, PROT in the last 72 hours. No lab exists for component: LABALBU PT/INR: Recent Labs 11/17/2445211/18/249911/19/24 0332 PROTIME 33.1* 31.3* 25.6* INR 3.4* 3.1* 2.6* CARDIAC ENZYMES: No results for input(s): TROPONINI in the last 72 hours. Procalcitonin: No results found for: PROCAL COVID-19 PCR: No results for input(s): COVID19 in the last 72 hours. Vitals: BP (!) 165/74 Pulse 60 Temp 36.5 C (97.7 F) (Temporal) Resp 17 Ht 5' 3 (1.6 m) Wt 153 lb (69.4 kg) SpO2 99% BMI 27.10 kg/m Pulse Ox: SpO2 Av.4 % Min: 97 % Max: 100 % Supplemental O2: O2 Flow Rate (L/min): 1 L/min General appearance: No apparent distress, appears stated age, frail female in NAD Respiratory: CTA BL, no wheezing. Cardiovascular: S1 and S2 present, no murmur detected Abdomen: Soft, non-tender, non-distended Skin: Skin color, texture, turgor normal. No rashes or lesions. Distal pulses intact in BL LE, no edema in BL LE. Neurologic: grossly non-focal. Discharge Medications: Medication List START taking these medications albuterol (2.5 MG/3ML) 0.083% nebulizer solution Take 3 mL (2.5 mg) by nebulization every 4 hours as needed for wheezing or shortness of breath. cefTRIAXone 2,000 mg in sodium chloride 0.9 % 50 mL IVPB Infuse 2,000 mg into a venous catheter Every 24 hours for 24 days. CHANGE how you take these medications warfarin 2.5 MG tablet Commonly known as: Coumadin What changed: Another medication with the same name was removed. Continue taking this medication, and follow the directions you see here. CONTINUE taking these medications acetaminophen 325 MG tablet Commonly known as: Tylenol aspirin 81 MG chewable tablet benzonatate 100 MG capsule Commonly known as: Tessalon dicyclomine 20 MG tablet Commonly known as: Bentyl ferrous sulfate 325 (65 Fe) MG EC tablet folic acid 1 MG tablet Commonly known as: Folvite gabapentin 100 MG capsule Commonly known as: Neurontin hydrocortisone 1 % cream isosorbide mononitrate ER 30 MG 24 hr tablet Commonly known as: Imdur Ketoconazole 1 % shampoo lisinopril 5 MG tablet loperamide 2 MG tablet Commonly known as: Imodium A-D loratadine 10 MG tablet Commonly known as: Claritin methocarbamol 500 MG tablet Commonly known as: Robaxin metoprolol tartrate 25 MG tablet Commonly known as: Lopressor montelukast 10 MG tablet Commonly known as: Singulair Nitrostat 0.4 MG SL tablet Generic drug: nitroglycerin ondansetron 4 MG tablet Commonly known as: Zofran oxybutynin XL 5 MG 24 hr tablet Commonly known as: Ditropan-XL pantoprazole 40 MG EC tablet Commonly known as: ProtoNix pravastatin 80 MG tablet Commonly known as: Pravachol Where to Get Your Medications Information about where to get these medications is not yet available Ask your nurse or doctor about these medications albuterol (2.5 MG/3ML) 0.083% nebulizer solution cefTRIAXone 2,000 mg in sodium chloride 0.9 % 50 mL IVPB Recommended Follow-up: PCP and cardiology outpatient in 1-2 weeks. @[email or web address]@ Complexity of Follow up: [] Moderate Complexity: follow up within 7-14 calendar days (49347) [x] Severe Complexity: follow up within 7 calendar days (67327) Follow up Testing, Pending results or Referrals at Transitional Care Visit: [x] yes [] no Instructions to MA: Please call patient on day after discharge (must document patient contacted within 2 business days of discharge). Follow up questions for MA: 1. Did you get medications filled and taking them as instructed from discharge? 2. Are you following your discharge instructions from your hospital stay? 3. Please confirm patient is scheduled for a follow up appointment within the above time frame. Signed: Rosanne Waddell DO [facility] Medicine Inpatient Medical Services/[facility] 11/19/2024, 1:33 PM Total time Spent on Discharge: 32 minutes documented in this encounter [facility] 11-19-2024 Nurse Note Wound Care consulted for Pressure Injury Prevention. Pt's Igor= 19, pt is no longer at risk at this time. Skin Care Precaution order set in place. Dietitian consult in place. PT/OT consults in place. Will continue to follow peripherally. Please secure chat message with any questions. Tawana Mercado RN IR Procedures: Ms. Joseph is here from [address] for a Picc line placement . The patient has verbalized understanding of the procedural instructions. Yudi Miles has spoken to the patient. History, allergies, medications and lab results reviewed. Informed consent has been signed. documented in this encounter [facility] 11-19-2024 Note IR Procedures: Ms. Amadeo lizama is here from [address] for a Picc line placement . The patient has verbalized understanding of the procedural instructions. Yudi Miles has spoken to the patient. History, allergies, medications and lab results reviewed. Informed consent has been signed. [facility] 11-18-2024 Note [facility] - Infectious Diseases Attending Progress Note Subjective: Follow up for septic shock, E coli bacteremia and E coli UTI with hydroureter. She was alert, sitting on bed, felt better, chills gone, suprapubic pain decreased, on 1 L O2, she appeared non-toxic. She was admitted on 11/13/24 from SNF with altered mental status, fever, abdominal pain, difficulty urination; on presentation in ED, her temp was 100.3 F, then, spiked to 100.9 F, was tachypneic (R 24); labs showed leukocytosis 12.7 k, pyuria with >100 wbc, lactic acidosis 2.9 that increased to 3.4, ceftriaxone was given; was initially admitted to [facility] for infectious work up and empiric antibiotics, she became hypotensive requiring vasopressor support and was transferred to ICU. She has h/o CAD, CABG, HTN, A-fib, SSS requiring PPM, PVD, COPD, Anemia, Dysphagia, Debility. She was examined; notes, labs, imaging were reviewed; treatment plan was discussed; clinical informations were documented in electronic record. Objective: Vitals: Patient Vitals for the past 24 hrs: BP Temp Temp src Pulse Resp SpO2 11/18/24 0832 (!) 170/71 36.3 ?C (97.3 ?F) Temporal 61 18 98 % 11/17/248 -- -- -- 64 -- -- 11/17/24 1922 128/65 (!) 21.8 ?C (71.3 ?F) Temporal 62 18 94 % Physical Exam Vitals and nursing note reviewed. Constitutional: General: She is awake. She is not in acute distress. Appearance: She is well-developed. She is not toxic-appearing or diaphoretic. HENT: Head: Normocephalic and atraumatic. Right Ear: External ear normal. Left Ear: External ear normal. Nose: Nose normal. Mouth/Throat: Mouth: Mucous membranes are moist. Pharynx: Oropharynx is clear. Comments: unremarkable Eyes: Extraocular Movements: Extraocular movements intact. Conjunctiva/sclera: Conjunctivae normal. Pupils: Pupils are equal, round, and reactive to light. Neck: Vascular: No JVD. Trachea: No tracheal deviation. Cardiovascular: Rate and Rhythm: Normal rate and irregular rhythm. Pulses: Normal pulses. Heart sounds: Normal heart sounds. Pulmonary: Effort: Tachypnea resolved. no wheeze, respiratory distress decreased. Breath sounds: Normal breath sounds. Abdominal: General: There is no distension or abdominal bruit. Palpations: Abdomen is soft. Tenderness: There is abdominal tenderness decreased. There is no guarding or rebound. Hernia: No hernia is present. Musculoskeletal: General: Tenderness decreased. Right lower leg: Edema present. Left lower leg: Edema present. Comments: Left greater then right LE edema Skin: General: Skin is warm and dry. Capillary Refill: Capillary refill takes less than 2 seconds. Coloration: Skin is not cyanotic. Nails: There is no clubbing. Comments: Skin hot Neurological: General: No focal deficit present. Mental Status: She is alert and oriented to person, place, and time. Sensory: Sensation is intact. Motor: Motor function is intact. Psychiatric: Mood and Affect: Mood normal. Behavior: Behavior normal. Behavior is cooperative. Labs: Recent Labs 11/16/24 0515 11/17/24 0453 11/18/24 0100 NA 141 141 139 K 3.2* 3.6 3.3* CL 101 103 101 CO2 29 29 28 BUN 23 30* 24* CREATININE 0.76 0.72 0.72 GLUCOSE 159* 137* 122* CALCIUM 8.8 8.3* 8.3* Recent Labs 11/16/24 0515 11/17/24 0453 11/18/24 0100 WBC 12.8* 10.1 10.3 HGB 9.6* 8.9* 10.3* HCT 32.1* 30.4* 34.5* PLT 208 191 213 LYMPHOPCT 6.3* 11.8* 16.7 MONOPCT 2.9* 7.2 9.9 BASOPCT 0.2 0.1 0.1 NEUTROABS 11.5* 8.1* 7.3 Micro: No results for input(s): COVID19 in the last 72 hours. 11/15/2024 0435 11/15/2024 09 Blood culture Site #2 - Assess for effectiveness of treatment [[id number]] Blood, Venous Preliminary result Component Value Blood Culture Blood culture incubation started P 11/15/2024 0428 11/15/2024 09 Blood culture Site #1 - Assess for effectiveness of treatment [[id number]] Blood, Venous Preliminary result Component Value Blood Culture Blood culture incubation started P 11/14/2024212411/15/2024 033 Legionella and Streptococcus Urine Antigen [[id number]] Urine, Clean Catch Final result Component Value No component results 11/14/2024212411/15/2024 0335 Legionella and Streptococcus Urine Antigen [[id number]] Urine, Clean Catch Final result Component Value Legionella pneumophila Ag Not Detected Streptococcus pneumoniae Ag Not Detected 11/13/2024 1022 11/15/2024 1110 Urine culture [[id number]] (Abnormal) Urine, Clean Catch Final result Component Value Urine Culture >100,000 CFU/mL Escherichia coli Abnormal 11/13/2024 1009 11/15/2024 0951 Blood culture Site #2 - Suspected Infection [[id number]] (Abnormal) Blood, Venous Final result Component Value Blood Culture Escherichia coli Panic For identification and/or sensitivity, refer to culture collected on: 11/13/2024 at 1008 (25[id number]). This is an edited result. Previous organism was (more content not included)... [facility] 11-18-2024 Note Hospitalist Progress Note 11/18/20246998068-0533: Please page ky ([phone]) for patient care issues. [phone]: Please page [facility] Hospitalist for any issues. Subjective: Admit Date: 11/13/2024 PCP: Rosanne Waddell, DO Room#: [id number]/[id number] A Interval History: patient admitted for septic shock. No overnight issues. Complaints reported by patient: reports feeling well. Adult diet Easy to Chew; Gluten Free 24HR INTAKE/OUTPUT: Intake/Output Summary (Last 24 hours) at 11/18/2024 1202 Last data filed at 11/18/2024 0913 Gross per 24 hour Intake 5 ml Output -- Net 5 ml Past Medical History: Medical History[1] LABS: CBC: Recent Labs 11/16/2451411/17/24 0453 11/18/24 0100 WBC 12.8* 10.1 10.3 RBC 3.93 3.72* 4.22 HGB 9.6* 8.9* 10.3* HCT 32.1* 30.4* 34.5* MCV 81.7 81.7 81.8 RDW 19.9* 19.0* 19.4* PLT 208 191 213 BMP: Recent Labs 11/16/24 0511/17/24 0453 11/18/24 0100 NA 141 141 139 K 3.2* 3.6 3.3* CL 101 103 101 CO2 29 29 28 BUN 23 30* 24* CREATININE 0.76 0.72 0.72 GLUCOSE 159* 137* 122* CALCIUM 8.8 8.3* 8.3* ANIONGAP 11 9 10 LIVER PROFILE: No results for input(s): AST, ALT, BILITOT, ALKPHOS, PROT in the last 72 hours. No lab exists for component: LABALBU PT/INR: Recent Labs 11/16/24 0515 11/17/24 0453 11/18/24 0100 PROTIME 34.3* 33.1* 31.3* INR 3.4* 3.4* 3.1* CARDIAC ENZYMES: No results for input(s): TROPONINI in the last 72 hours. Procalcitonin: No results found for: PROCAL COVID-19 PCR: No results for input(s): COVID19 in the last 72 hours. Objective: Vitals: BP (!) 170/71 (BP Location: Right arm, Patient Position: Lying) Pulse 61 Temp 36.3 ?C (97.3 ?F) (Temporal) Resp 18 Ht 5' 3 (1.6 m) Wt 153 lb (69.4 kg) SpO2 98% BMI 27.10 kg/m? Pulse Ox: SpO2 Av % Min: 94 % Max: 98 % Supplemental O2: O2 Flow Rate (L/min): 1 L/min General appearance: No apparent distress, appears stated age, frail female in NAD Respiratory: CTA BL, no wheezing. Cardiovascular: S1 and S2 present, no murmur detected Abdomen: Soft, non-tender, non-distended Skin: Skin color, texture, turgor normal. No rashes or lesions. Neurologic: grossly non-focal. Medications: Continuous Meds[2] Scheduled Meds[3] Assessment Septic shock E coli bacteremia Ecoli UTI E coli pyelonephritis Admitted to medicine but transferred ICU, required pressor support in setting of worsening sepsis. ID following Abx per ID recs Follow blood cultures NSTEMI type 2 demand Cardiology following Echo with LVEF of 55% Hx of CAD with remote CABG Imdur ASA and statin Affib Rate controlled Coumadin, pharmacy to dose Daily INR Metoprolol Weakness and debility PT/OT eval and treat COPD, no acute exacerbation Chronic normocytic anemia, baseline SSS s/p PPM PVD Chronic peripheral neuropathy Home medications reviewed and resumed as indicated. Medical Decision Making 11/16/24: Patient with acute metabolic encephalopathy and sepsis on presentation, in setting of E coli bacteremia, E coli UTI, and E coli pyelonephritis, required ICU transfer to due worsening sepsis with shock, required vasopressors. Covered with broad spectrum abx and IV fluids. ID on consult for abx management, planning for likely 4 weeks IV abx on discharge. Repeat BC obtained yesterday, need to be negative x48 hours. She stabilized and was weaned off vasopressor support, and transferred out of ICU on 11/15/24. She is also followed by cardiology, as patient with elevated troponin, deemed to be type 2 demand related elevation of troponin. Echo with LVEF of 55%. Follow INR, coumadin dosing by pharmacy. PT/OT eval and treat. Encourage PO intake. Labs and vitals reviewed and stable. CBC and BMP in the AM. 11/17/24: patient not able to get PICC done yesterday because repeat BC not negative x48 hours. PICC planned for 11/19/24. Will likely need 4 weeks iV abx per ID, final recs pending. Labs and vitals reviewed and stable. Plan for SNF on discharge likely after PICC is placed on 11/19/24. Labs and vitals reviewed and stable. CBC and BMP in the AM. 11/18/24: repeat BC negative, plan for PICC to be placed tomorrow, will need finalized abx recs from ID on discharge. Labs and vitals reviewed and stable. Plan for discharge to SNF tomorrow once final abx recs received from ID. CBC and BMP in the AM. -DVT prophylaxis: [] Lovenox [] Heparin [] SCDs [x] Encourage ambulation [x] Already on Anticoagulation Anticipated Discharge - Date - 11/19 - Location - Skilled Facility - Pending the following - continued improvement. Final abx recs from ID. PICC Toxic drug monitoring/narrow therapeutic index drug monitoring : # Drug name : # Route administered : # Method of monitoring : Extended Emergency Contact Information Primary Emergency Contact: Rey Fagan Mobile Relation: Brother Preferred language: Burkinan Interpret (more content not included)... [facility] 11-17-2024 Note [facility] Cardiology /Electrophysiology Progress Note HPI / Interval History: Divya Joseph presents to [facility] due to mental status changes. She has a history of coronary artery disease, remote bypass surgery, sick sinus syndrome, s/p placement of a permanent pacemaker, hypertension, paroxysmal atrial fibrillation COPD, anemia, who lives in a SNF. She has been febrile and has been diagnosed with a UTI. CTA of her chest suggestive of possible PE, but of low suspicion in the setting of a therapeutic INR. Vascular US with no evidence of DVT in the BLE. She was seen in consultation with Dr. Day due to elevated troponin up 152 and a BNP of 8,878. She is felt to have a type II NSTEMI in the setting of sepsis and UTI. She has had no chest pain or EKG changes. Echocardiogram 11/14/2024 EF-55%. She been maintaining a SR, anticoagulated on warfarin with a therapeutic- INR 3.4 today. She was transferred to the ICU 11/14 due to hypotension, requiring vasopressor support. Breathing and BP improved, transferred back to [facility] 11/15/2024. Pt states she is comfortable. She continues to deny chest pain or palpitations. She is down to 1 liter NC. Her home medications including low dose metoprolol tartrate 12.5 mg twice daily and lisinopril 5 mg daily resumed 11/16. Will resume isosorbide 30 mg daily today. Assessment/Plan HF NYHA Class [] I [] II [] III [] IV []Unable to assess [] N/A Abnormal troponin- no evidence of ACS. Type II NSTEMI in the setting of sepsis and UTI. - has had no complaints of CP free - Echo 11/14 with preserved EF. - low dose aspirin and pravastatin continues - no further cardiac evaluation warranted. 2. Hx of CAD with remote CABG- has remained CP free - cardioprotective meds including lisinopril 5 mg daily and metoprolol tartrate 12.5 mg twice daily resumed 11/16. -Imdur 30 mg daily resumed today. - low dose aspirin and pravastatin also continue for cardiac risk reduction 3. Elevated BNP- pt appears to be compensated. Comfortable on oxygen NC 1 l/m - remains off diuretic therapy - states she does not wear oxygen normally at the SNF 4. Sepsis- UTI- per ID, IV antibiotics continue 5. Atrial fibrillation- maintaining a SR. Heart rate controlled. Anticoagulated on warfarin- INR 3.4 - low dose metoprolol 12.5 mg twice daily continues as noted above 6. Disp- will sign off from a cardiac standpoint. Please call if additional questions or concerns. Follow up has been arranged [facility] [place] office 12/10/2024 at 1:30 pm with Kamla CHAMBERLAIN. Medications: Scheduled Meds[1] Infusion Medications: Continuous Meds[2] Physical Examination: Vitals: 11/16/24 1511 11/16/24 2100 11/17/24 0500 11/17/24 0754 BP: 116/53 130/61 146/72 BP Location: Right arm Left arm Patient Position: Sitting Lying Pulse: 77 66 61 Resp: 18 18 Temp: 36.8 ?C (98.2 ?F) 37.2 ?C (99 ?F) 36.8 ?C (98.3 ?F) TempSrc: Temporal Temporal Temporal SpO2: 95% 95% 97% Weight: 153 lb (69.4 kg) Height: Intake/Output Summary (Last 24 hours) at 11/17/2024 1129 Last data filed at 11/17/2024 0941 Gross per 24 hour Intake 505 ml Output -- Net 505 ml Patient Vitals for the past 168 hrs: Weight Weight Method 11/17/24 0500 153 lb (69.4 kg) -- 11/16/24 0500 152 lb 9.6 oz (69.2 kg) Standing scale 11/15/24 0417 165 lb 2 oz (74.9 kg) Bed scale 11/14/24 0740 165 lb (74.8 kg) -- 11/13/24 1924 165 lb 12.6 oz (75.2 kg) Bed scale Physical Exam Constitutional: NAD Psychiatric: Alert. Medical insight good Neck: No JVD Respiratory: Lungs are clear, diminished anteriorly Heart: regular ; Nl S1 and S2, no murmur, no rub, gallop Abdomen: NABS; soft, non-tender, non-distended Extremities: no LE edema Skin: Warm to touch and well perfused Laboratory Tests: TROPONIN I, CONVENTIONAL SENSITIVITY No results found for: CKTOTAL, CKMB, CKMBINDEX, TROPONINI TROPONIN I, HIGH SENSITIVITY Troponin HS Serial Baseline Date Value Ref Range Status 11/13/2024 78 (H) <=14 ng/L Final Comment: In individuals presenting with symptoms > 2h, a baseline troponin <= 5 ng/L suggests acute cardiac injury is unlikely and further serial testing is generally not indicated. 10/28/2024 10 <=14 ng/L Final Comment: In individuals presenting with symptoms > 2h, a baseline troponin <= 5 ng/L suggests acute cardiac injury is unlikely and further serial testing is generally not indicated. 2h Troponin HS (Serial 2nd Troponin) Date Value Ref Range Status 11/13/2024 90 (H) <=14 ng/L Final Comment: Rising or falling troponin delta between 2 - 15 ng/L as compared to baseline value requires a 3rd serial troponin 10/28/2024 12 <=14 ng/L Final Comment: Rising or falling troponin delta below 2 ng/L as compared to baseline value suggests that acute cardiac injury is unlikely. No results found for: TROPDELTBASE 4h Troponin HS (Serial 3rd Troponin) Date Value Ref Range (more content not included)... [facility] 11-17-2024 Note Hospitalist Progress Note 11/17/2024 [phone]: Please page me [phone]) for patient care issues. [phone]: Please page [facility] Hospitalist for any issues. Subjective: Admit Date: 11/13/2024 PCP: Rosanne Waddell, DO Room#: [id number] A Interval History: patient admitted for septic shock. No overnight issues. Complaints reported by patient: reports eating more yesterday and today. Denies issues. Adult diet Easy to Chew; Gluten Free 24HR INTAKE/OUTPUT: Intake/Output Summary (Last 24 hours) at 11/17/2024 1118 Last data filed at 11/17/2024 0941 Gross per 24 hour Intake 505 ml Output -- Net 505 ml Past Medical History: Medical History[1] LABS: CBC: Recent Labs 11/15/2441811/16/2451411/17/24452 WBC 8.6 12.8* 10.1 RBC 3.46* 3.93 3.72* HGB 8.5* 9.6* 8.9* HCT 28.7* 32.1* 30.4* MCV 82.9 81.7 81.7 RDW 20.1* 19.9* 19.0* PLT 133* 208 191 BMP: Recent Labs 09/11/25 0419 09/12/25 0515 09/13/25 0453 NA 141 141 141 K 3.1* 3.2* 3.6 CL 100 101 103 CO2 31 29 29 BUN 13 23 30* CREATININE 0.79 0.76 0.72 GLUCOSE 168* 159* 137* CALCIUM 8.8 8.8 8.3* ANIONGAP 10 11 9 LIVER PROFILE: Recent Labs 11/15/24 0419 AST 32 ALT 10 BILITOT 0.6 ALKPHOS 52 PROT 6.1* PT/INR: Recent Labs 11/15/24 0419 11/16/24 0515 11/17/24 0453 PROTIME 31.9* 34.3* 33.1* INR 3.3* 3.4* 3.4* CARDIAC ENZYMES: No results for input(s): TROPONINI in the last 72 hours. Procalcitonin: No results found for: PROCAL COVID-19 PCR: No results for input(s): COVID19 in the last 72 hours. Objective: Vitals: BP 146/72 (BP Location: Left arm, Patient Position: Lying) Pulse 61 Temp 36.8 ?C (98.3 ?F) (Temporal) Resp 18 Ht 5' 3 (1.6 m) Wt 153 lb (69.4 kg) SpO2 97% BMI 27.10 kg/m? Pulse Ox: SpO2 Av.7 % Min: 95 % Max: 97 % Supplemental O2: O2 Flow Rate (L/min): 1 L/min General appearance: No apparent distress, appears stated age, frail female in NAD Respiratory: CTA BL, no wheezing. Cardiovascular: S1 and S2 present, no murmur detected Abdomen: Soft, non-tender, non-distended Skin: Skin color, texture, turgor normal. No rashes or lesions. Neurologic: grossly non-focal. Medications: Continuous Meds[2] Scheduled Meds[3] Assessment Septic shock E coli bacteremia Ecoli UTI E coli pyelonephritis Admitted to medicine but transferred ICU, required pressor support in setting of worsening sepsis. ID following Abx per ID recs Follow blood cultures NSTEMI type 2 demand Cardiology following Echo with LVEF of 55% Hx of CAD with remote CABG Imdur ASA and statin Affib Rate controlled Coumadin, pharmacy to dose Daily INR Metoprolol Weakness and debility PT/OT eval and treat COPD, no acute exacerbation Chronic normocytic anemia, baseline SSS s/p PPM PVD Chronic peripheral neuropathy Home medications reviewed and resumed as indicated. Medical Decision Making 11/16/24: Patient with acute metabolic encephalopathy and sepsis on presentation, in setting of E coli bacteremia, E coli UTI, and E coli pyelonephritis, required ICU transfer to due worsening sepsis with shock, required vasopressors. Covered with broad spectrum abx and IV fluids. ID on consult for abx management, planning for likely 4 weeks IV abx on discharge. Repeat BC obtained yesterday, need to be negative x48 hours. She stabilized and was weaned off vasopressor support, and transferred out of ICU on 11/15/24. She is also followed by cardiology, as patient with elevated troponin, deemed to be type 2 demand related elevation of troponin. Echo with LVEF of 55%. Follow INR, coumadin dosing by pharmacy. PT/OT eval and treat. Encourage PO intake. Labs and vitals reviewed and stable. CBC and BMP in the AM. 11/17/24: patient not able to get PICC done yesterday because repeat BC not negative x48 hours. PICC planned for 11/19/24. Will likely need 4 weeks iV abx per ID, final recs pending. Labs and vitals reviewed and stable. Plan for SNF on discharge likely after PICC is placed on 11/19/24. Labs and vitals reviewed and stable. CBC and BMP in the AM. -DVT prophylaxis: [] Lovenox [] Heparin [] SCDs [x] Encourage ambulation [x] Already on Anticoagulation Anticipated Discharge - Date - 11/19 - Location - Skilled Facility - Pending the following - continued improvement. Final abx recs from ID. PICC Toxic drug monitoring/narrow therapeutic index drug monitoring : # Drug name : # Route administered : # Method of monitoring : Extended Emergency Contact Information Primary Emergency Contact: Rey Fagan Mobile Relation: Brother Preferred language: Burkinan Crisis Manager needed? No Secondary Emergency Contact: Jolene Fagan Mobile Relation: Other Preferred language: Burkinan Crisis Manager needed? No Rosanne Waddell DO Division of Hospitalist Medicine Inpatient Medical Services/[facility] PAGER: [employer] chat (more content not included)... [facility] 11-17-2024 Note Care Management Prog ress Note Short Medical why still here: PICC placement pending. Final antibiotic recs pending. Planned Discharge Disposition: Senior Care/Residential Care Barriers/Today we still Wait: Clinical stability, Public Works Director recommendations (comment), Administering IV medications Length of Stay (Days): 4 GMLOS: No GMLOS Documented CM tasked to follow patient through the weekend to assist with discharge needs. Chart reviewed. Expected Discharge, Rapid Rounding, and Discharge Milestones / Delays updated as appropriate. PICC remains pending. Unlikely to DC this weekend without it as plan is for 4 weeks of IV antibiotics. From [facility]. [facility] 11-16-2024 Note Care Management Prog ress Note Short Medical why still here: Patient remains on 4S today for septic shock/UTI. Complaints of AMS, fever, and abdominal pain. CT A/P w/sm BL pleural effusions, mild right hydroureter. ID, Cardiology, Geriatrics, Pulmonology, and WASHHOUSE WORKER consulted and seen. Ecoli bacteremia, IV ATBX coverage continued. ID noted 4 weeks of CTX/PICC? Cardiology with TTE completed on 11/14, preserved EF. Tele, warfarin. BC NGTD/x24 hours. WASHHOUSE WORKER today, MBSS . VSS, continue on 2L O2 NC, to wean. Monitoring labs/lytes. Therapy recommending SNF. Planned Discharge Disposition: Senior Care/Residential Care, [facility], bed hold. Updated facility on clinicals via [facility] today. Plan to return when medically cleared. Barriers/Today we still Wait: Clinical stability, Public Works Director recommendations (comment), Administering IV medications Length of Stay (Days): 3 GMLOS: No GMLOS Documented [facility] 11-16-2024 Note Hospitalist Progress Note 11/16/2024 [phone]: Please page me ([phone]) for patient care issues. [phone]: Please page [facility] night Hospitalist for any issues. Subjective: Admit Date: 11/13/2024 PCP: Rosanne Waddell, Room#: B4-458/B4458 A Interval History: patient admitted for septic shock. No overnight issues. Complaints reported by patient: reports poor appetite. Adult diet Easy to Chew; Gluten Free 24HR INTAKE/OUTPUT: Intake/Output Summary (Last 24 hours) at 11/16/2024 1247 Last data filed at 11/15/2024 1939 Gross per 24 hour Intake 50 ml Output 350 ml Net -300 ml Past Medical History: Medical History[1] LABS: CBC: Recent Labs 11/14/2451511/14/24199911/15/2441811/16/24514 WBC 18.2* -- 8.6 12.8* RBC 3.56* -- 3.46* 3.93 HGB 8.6* 9.2* 8.5* 9.6* HCT 30.6* -- 28.7* 32.1* MCV 86.0 -- 82.9 81.7 RDW 20.6* -- 20.1* 19.9* PLT 160 -- 133* 208 BMP: Recent Labs 11/14/2451511/15/2441811/16/24514 NA 141 141 141 K 3.7 3.1* 3.2* CL 108* 100 101 CO2 27 31 29 BUN 13 13 23 CREATININE 0.72 0.79 0.76 GLUCOSE 108 168* 159* CALCIUM 8.7* 8.8 8.8 ANIONGAP 6 10 11 LIVER PROFILE: Recent Labs 11/14/2451511/15/24418 AST 32 32 ALT 7 10 BILITOT 0.6 0.6 ALKPHOS 54 52 PROT 5.3* 6.1* PT/INR: Recent Labs 11/14/2451511/15/2441811/16/24514 PROTIME 23.5* 31.9* 34.3* INR 2.3* 3.3* 3.4* CARDIAC ENZYMES: No results for input(s): TROPONINI in the last 72 hours. Procalcitonin: No results found for: PROCAL COVID-19 PCR: No results for input(s): COVID19 in the last 72 hours. Objective: Vitals: BP 145/66 (BP Location: Left arm, Patient Position: Lying) Pulse 66 Temp 36.8 ?C (98.2 ?F) (Temporal) Resp 18 Ht 5' 3 (1.6 m) Wt 152 lb 9.6 oz (69.2 kg) SpO2 96% BMI 27.03 kg/m? Pulse Ox: SpO2 Av % Min: 91 % Max: 98 % Supplemental O2: O2 Flow Rate (L/min): 2 L/min General appearance: No apparent distress, appears stated age, frail female in NAD Respiratory: CTA BL Cardiovascular: S1 and S2 present, no murmur detected Abdomen: Soft, non-tender, non-distended Skin: Skin color, texture, turgor normal. No rashes or lesions. Neurologic: grossly non-focal. Medications: Continuous Meds[2] Scheduled Meds[3] Assessment Septic shock E coli bacteremia Ecoli UTI E coli pyelonephritis Admitted to medicine but transferred ICU, required pressor support in setting of worsening sepsis. ID following Abx per ID recs Follow blood cultures NSTEMI type 2 demand Cardiology following Echo with LVEF of 55% Hx of CAD with remote CABG Imdur ASA and statin Affib Rate controlled Coumadin, pharmacy to dose Daily INR Metoprolol Weakness and debility PT/OT eval and treat COPD, no acute exacerbation Chronic normocytic anemia, baseline SSS s/p PPM PVD Chronic peripheral neuropathy Home medications reviewed and resumed as indicated. Medical Decision Making 11/16/24: Patient with acute metabolic encephalopathy and sepsis on presentation, in setting of E coli bacteremia, E coli UTI, and E coli pyelonephritis, required ICU transfer to due worsening sepsis with shock, required vasopressors. Covered with broad spectrum abx and IV fluids. ID on consult for abx management, planning for likely 4 weeks IV abx on discharge. Repeat BC obtained yesterday, need to be negative x48 hours. She stabilized and was weaned off vasopressor support, and transferred out of ICU on 11/15/24. She is also followed by cardiology, as patient with elevated troponin, deemed to be type 2 demand related elevation of troponin. Echo with LVEF of 55%. Follow INR, coumadin dosing by pharmacy. PT/OT eval and treat. Encourage PO intake. Labs and vitals reviewed and stable. CBC and BMP in the AM. -DVT prophylaxis: [] Lovenox [] Heparin [] SCDs [x] Encourage ambulation [x] Already on Anticoagulation Anticipated Discharge - Date - 11/18/24 - Location - Skilled Facility - Pending the following - continued improvement. Final abx recs from ID. Toxic drug monitoring/narrow therapeutic index drug monitoring : # Drug name : # Route administered : # Method of monitoring : Extended Emergency Contact Information Primary Emergency Contact: Rey Fagan Mobile Relation: Brother Preferred language: Burkinan Crisis Manager needed? No Secondary Emergency Contact: Jolene Fagan Mobile Relation: Other Preferred language: Burkinan Crisis Manager needed? No Rosanne Waddell DO Division of Hospitalist Medicine Inpatient Medical Services/[facility] PAGER: [employer] chat [1] Past Medical History: Diagnosis Date Altered mental status, unspecified Ataxia Atherosclerotic heart disease Bradycardia, unspecified Cognitive communication deficit COPD (chronic obstructive pulmonary disease) ([facility]) i was told i had COPD, then I was told i wasn't, i don't know for sure Difficu (more content not included)... [facility] 11-16-2024 Note [facility] Cardiology /Electrophysiology Progress Note HPI / Interval History: Divya Joseph presents to [facility] due to mental status changes. She has a history of coronary artery disease, remote bypass surgery, sick sinus syndrome, s/p placement of a permanent pacemaker, hypertension, paroxysmal atrial fibrillation COPD, anemia, who lives in a SNF. She has been febrile and has been diagnosed with a UTI. CTA of her chest suggestive of possible PE, but of low suspicion in the setting of a therapeutic INR. Vascular US with no evidence of DVT in the BLE. She was seen in consultation with Dr. Day due to elevated troponin up 152 and a BNP of 8,878. She is felt to have a type II NSTEMI in the setting of sepsis and UTI. She has had no chest pain or EKG changes. Echocardiogram 11/14/2024 EF-55%. She been maintaining a SR, anticoagulated on warfarin with a therapeutic- INR 3.4 today. She was transferred to the ICU 11/14 due to hypotension, requiring vasopressor support. Breathing and BP improved, transferred back to [facility] 11/15/2024. Pt states she is comfortable. She continues to deny chest pain or palpitations. I will resume her home medications including low dose metoprolol tartrate 12.5 mg twice daily, and lisinopril 5 mg daily. Will remain off isosorbide for now. Will continue to monitor BP and heart rate. Assessment/Plan HF NYHA Class [] I [] II [] III [] IV []Unable to assess [] N/A Abnormal troponin- no evidence of ACS. Type II NSTEMI in the setting of sepsis and UTI. - has had no complaints of CP free - Echo 11/14 with preserved EF. - low dose aspirin and pravastatin continues 2. Hx of CAD with remote CABG- has remained CP free - will resume cardioprotective meds including lisinopril 5 mg daily and metoprolol tartrate 12.5 mg twice daily as she takes at home. Will continue to monitor BP and heart rate -Imdur 30 mg daily continues to be on hold. - low dose aspirin and pravastatin continue for cardiac risk reduction 3. Elevated BNP- pt appears to be compensated. Comfortable on oxygen NC 2 l/m - remains off diuretic therapy - states she does not wear oxygen normally at the SNF 4. Sepsis- UTI- per ID, IV antibiotics continue 5. Atrial fibrillation- heart rate controlled. I will reorder telemery Anticoagulated on warfarin- INR 3.4 - low dose metoprolol 12.5 mg twice daily continues as noted above Medications: Scheduled Meds[1] Infusion Medications: Continuous Meds[2] Physical Examination: Vitals: 11/15/24 1939 11/15/245 11/16/24 0500 11/16/24 0812 BP: 139/60 (!) 162/71 145/66 BP Location: Right arm Right arm Left arm Patient Position: Lying Sitting Lying Pulse: 66 77 66 Resp: 16 18 Temp: 36.8 ?C (98.2 ?F) 36.9 ?C (98.5 ?F) 36.8 ?C (98.2 ?F) TempSrc: Oral Temporal Temporal SpO2: 98% 95% 96% Weight: 152 lb 9.6 oz (69.2 kg) Height: Intake/Output Summary (Last 24 hours) at 11/16/2024 1152 Last data filed at 11/15/20241938 Gross per 24 hour Intake 50 ml Output 350 ml Net -300 ml Patient Vitals for the past 168 hrs: Weight Weight Method 11/16/24 0500 152 lb 9.6 oz (69.2 kg) Standing scale 11/15/24 0417 165 lb 2 oz (74.9 kg) Bed scale 11/14/24 0740 165 lb (74.8 kg) -- 11/13/24 1924 165 lb 12.6 oz (75.2 kg) Bed scale Physical Exam Constitutional: NAD Psychiatric: Alert. Medical insight good Neck: No JVD Respiratory: Lungs are clear, diminished anteriorly Heart: regular ; Nl S1 and S2, no murmur, no rub, gallop Abdomen: NABS; soft, non-tender, non-distended Extremities: no LE edema Skin: Warm to touch and well perfused Laboratory Tests: TROPONIN I, CONVENTIONAL SENSITIVITY No results found for: CKTOTAL, CKMB, CKMBINDEX, TROPONINI TROPONIN I, HIGH SENSITIVITY Troponin HS Serial Baseline Date Value Ref Range Status 11/13/2024 78 (H) <=14 ng/L Final Comment: In individuals presenting with symptoms > 2h, a baseline troponin <= 5 ng/L suggests acute cardiac injury is unlikely and further serial testing is generally not indicated. 10/28/2024 10 <=14 ng/L Final Comment: In individuals presenting with symptoms > 2h, a baseline troponin <= 5 ng/L suggests acute cardiac injury is unlikely and further serial testing is generally not indicated. 2h Troponin HS (Serial 2nd Troponin) Date Value Ref Range Status 11/13/2024 90 (H) <=14 ng/L Final Comment: Rising or falling troponin delta between 2 - 15 ng/L as compared to baseline value requires a 3rd serial troponin 10/28/2024 12 <=14 ng/L Final Comment: Rising or falling troponin delta below 2 ng/L as compared to baseline value suggests that acute cardiac injury is unlikely. No results found for: TROPDELTBASE 4h Troponin HS (Serial 3rd Troponin) Date Value Ref Range Status 11/13/2024 152 (H) <=14 ng/L Final Comment: 4h troponin (3rd troponin) samples collected between 1h 40 min and 2h and 20 min of the 2h troponin collection (more content not included)... [facility] 11-15-2024 Note [facility] - Infectious Diseases Attending Progress Note Subjective: Follow up for septic shock, E coli bacteremia and E coli UTI with hydroureter. She was alert, sitting on a chair, felt better, overnight developed respiratory distress, Imaging consistent with pulmonary edema, She received 1x dose Lasix with resolution ; c/o non-productive cough, chills and suprapubic pain decreased, on 2 L O2, she appeared ill. She was admitted on 11/13/24 from SNF with altered mental status, fever, abdominal pain, difficulty urination; on presentation in ED, her temp was 100.3 F, then, spiked to 100.9 F, was tachypneic (R 24); labs showed leukocytosis 12.7 k, pyuria with >100 wbc, lactic acidosis 2.9 that increased to 3.4, ceftriaxone was given; was initially admitted to [facility] for infectious work up and empiric antibiotics, she became hypotensive requiring vasopressor support and was transferred to ICU. She has h/o CAD, CABG, HTN, A-fib, SSS requiring PPM, PVD, COPD, Anemia, Dysphagia, Debility. She was examined; notes, labs, imaging were reviewed; treatment plan was discussed; clinical informations were documented in electronic record. Objective: Vitals: Patient Vitals for the past 24 hrs: BP Temp Temp src Pulse Resp SpO2 Weight 11/15/24 1349 124/60 -- -- 71 17 91 % -- 11/15/24 1203 149/91 -- -- 66 12 96 % -- 11/15/24 1102 109/71 -- -- 77 19 95 % -- 11/15/24 1020 137/67 -- -- 65 19 96 % -- 11/15/24 0907 -- -- -- 66 20 95 % -- 11/15/24 0903 142/67 -- -- 70 20 93 % -- 11/15/24 0803 142/67 36.9 ?C (98.5 ?F) -- 77 24 95 % -- 11/15/24 0702 134/64 -- -- 75 24 98 % -- 11/15/24 0602 132/62 -- -- 71 (!) 26 97 % -- 11/15/24 0502 133/74 -- -- 73 24 97 % -- 11/15/24 0417 115/55 36.8 ?C (98.2 ?F) Oral 71 22 96 % 74.9 kg (165 lb 2 oz) 11/15/24 0405 108/59 -- -- 69 (!) 26 93 % -- 11/15/24 0303 127/56 -- -- 78 20 96 % -- 11/15/24 0203 126/50 -- -- 81 23 96 % -- 11/15/24 0103 138/56 -- -- 84 (!) 26 97 % -- 11/15/24 0002 138/61 -- -- 85 (!) 27 95 % -- 11/14/24 2347 146/70 36.9 ?C (98.4 ?F) Oral 89 24 97 % -- 11/14/24 2301 150/67 -- -- 90 (!) 28 98 % -- 11/14/24 2202 (!) 134/114 -- -- 111 (!) 33 96 % -- 11/14/24 210 (!) 166/68 -- -- 105 21 97 % -- 11/14/24 2019 160/68 -- -- 98 (!) 37 97 % -- 11/14/24 1916 (!) 169/73 36.7 ?C (98.1 ?F) Oral 107 (!) 36 95 % -- 11/14/24 1903 (!) 170/78 -- -- 108 (!) 39 100 % -- 11/14/24 1833 137/88 -- -- 103 (!) 30 98 % -- 11/14/24 1732 126/79 -- -- 105 20 99 % -- 11/14/24 1702 139/75 -- -- 100 (!) 28 100 % -- Physical Exam Vitals and nursing note reviewed. Constitutional: General: She is awake. She is in acute respiratory distress. Appearance: She is well-developed. She is not toxic-appearing or diaphoretic. HENT: Head: Normocephalic and atraumatic. Right Ear: External ear normal. Left Ear: External ear normal. Nose: Nose normal. Mouth/Throat: Mouth: Mucous membranes are dry. Pharynx: Oropharynx is clear. Comments: Edentulous Eyes: Extraocular Movements: Extraocular movements intact. Conjunctiva/sclera: Conjunctivae normal. Pupils: Pupils are equal, round, and reactive to light. Neck: Vascular: No JVD. Trachea: No tracheal deviation. Cardiovascular: Rate and Rhythm: Normal rate and irregular rhythm. Pulses: Normal pulses. Heart sounds: Normal heart sounds. Pulmonary: Effort: Tachypnea present. +audible wheeze, + respiratory distress decreased. Breath sounds: Normal breath sounds. Abdominal: General: There is no distension or abdominal bruit. Palpations: Abdomen is soft. Tenderness: There is abdominal tenderness in the right lower quadrant, left lower quadrant and suprapubic area decreased. There is no guarding or rebound. Hernia: No hernia is present. Musculoskeletal: General: Tenderness present. Right lower leg: Edema present. Left lower leg: Edema present. Comments: Left greater then right LE edema Skin: General: Skin is warm and dry. Capillary Refill: Capillary refill takes less than 2 seconds. Coloration: Skin is not cyanotic. Nails: There is no clubbing. Comments: Skin hot Neurological: General: No focal deficit present. Mental Status: She is alert and oriented to person, place, and time. Sensory: Sensation is intact. Motor: Motor function is intact. Psychiatric: Mood and Affect: Mood normal. Behavior: Behavior normal. Behavior is cooperative. Labs: Recent Labs 11/13/2451 11/13/24192511/14/2451511/15/24418 NA 142 142 141 141 K 3.1* 3.1* 3.7 3.1* CL 105 109* 108* 100 CO2 27 21* 27 31 BUN 9 11 13 13 CREATININE 0.85 0.79 0.72 0.79 GLUCOSE 152* 141* 108 168* CALCIUM 8.6* 7.5* 8.7* 8.8 PROT 6.5 -- 5.3* 6.1* BILITOT 0.9 -- 0.6 0.6 ALKPHOS 66 -- 54 52 AST 34* -- 32 32 ALT 11 -- 7 10 Recent Labs 11/13/24 0951 11/14/2451511/14/24199911/15/24 0419 WBC 12.7* 18.2* -- 8.6 HGB 11.2* 9.8* 8.6* 9.2* 8.5* HCT 34.2* 30.6* -- 28.7* PLT 18 (more content not included)... [facility] 11-15-[address] [facility] Initial Evaluation Name/MRN: Divya Joseph ([id number]) Evaluation Date: 11/15/2024 Date of : 1950 Admission Date: 11/13/2024 9:27 AM Age: 74 y.o. Room/Bed: 222-03/222-03 A Discharge Recommendation: Long Term Facility Equipment Needed: No Assessment IMPRESSION: Pt admitted from [facility] with UTI, sepsis, respiratory distress. She reports require assist for transfer to w/c at SNF, had been receiving therapy. She demo bed mobility SBA, transfer to FWW min A and stand pivot to chair min A. Pt limited by fatigue, would benefit from skilled therapy to promote mobility but does demo therapy potential for ambulation/transfers Admitting Diagnosis: UTI, sepsis, respiratory distress Prognosis: good Performance Deficits /Impairments: Decreased Endurance Decision Making: Medium Complexity Subjective Per RN pt okay for therapy, is pleasant and agree to PT Pain: Pt denies any current pain. Past Medical History: Medical History[1] Past Surgical History: Surgical History[2] Admission Diagnosis: Patient Active Problem List Diagnosis Date Noted Transient alteration of awareness 11/13/2024 Medical Precautions: No active isolations Proper PPE donned/doffed in accordance with facility standards. Fall Risk: [place] Fall Risk Score: 75 (High Risk) Precautions/Restrictions: N/A Family/Caregiver Present: none Overall Cognitive Status: WFL Overall Orientation Status: Oriented x4 Vision: No Visual Deficits Hearing: normal Social/Functional History Patient admitted from [facility]. Assistive Equipment: front wheeled walker and wheelchair - manual Prior Level of Function Prior Level of ADL Function: Required Assist Prior Level of Mobility: Required Assist; Device: Wheelchair - manual Prior Level of Transfers: Required Assist Objective Lower Extremity Assessment AROM: WFL PROM: Not assessed this session Strength: Exceptions: RLE: hip flex 3-/5 knee ext 4-/5 knee flex 4-/5 ankle DF 4/5 ankle PF 4/5 LLE: hip flex 3-/5 knee ext 4-/5 knee flex 4-/5 ankle DF 4/5 ankle PF 4/5 Sensation: Not assessed this session Balance: Balance During Session: Posture: fair Sitting - Static: SBA Sitting - Dynamic: SBA Standing - Static: Min Assist Standing - Dynamic: Min Assist Bed Mobility: Supine to sit: SBA, pt denies dizziness, demo bed mobility SBA with HOB elevated. Transfers Sit to stand: Min Assist, pt transfer to FWW with min A with cues for hand placement and upright trunk, able to take stand step bed>chair min A. Pt limited by fatigue Stand to sit: Min Assist Stand step: Min Assist Ambulation Did not assess this session. Outcome Measures AM-PAC How much HELP from another person do you currently need Turning from your back to your side while in a flat bed without using bedrails?: A Little Moving from lying on your back to sitting on the side of a flat bed without using bedrails?: A Little Moving to and from a bed to a chair (including a wheelchair)?: A Little Standing up from a chair using your arms (wheelchair or bedside chair)?: A Little Walking in a hospital room?: A Lot Stair climbing assessed?: No AM-PAC Inpatient Mobility Raw Score (No Stairs) : 14 JH-HLM JH-HLM Scale: Transferred to chair/commode Plan Pt would benefit from skilled acute PT services to address Strengthening, Gait Training, Balance Training, Functional Mobility Training, Endurance Training, Safety Education and Training, Pain Management, Equipment Evaluation/Education, Patient/Caregiver Training, and Positioning. Frequency: 5 visitsduring current hospital admission or until additional recommendations are made Barriers: Decreased endurance Safety/Education Safety Safety Devices in place: All fall risk precautions in place, call light within reach, left in chair, gait belt, patient at risk for falls, and nurse notified Restraints: No Education Education Given To: patient Education Provided: PT Role, PT Goals, Gait Training, Plan of Care, Precautions, Transfer Training, Energy Conservation, Equipment, Fall Prevention Education, Discharge Recommendations, and Benefits of Increasing Activity Education Method: Verbal and Demonstration Barriers to Learning: None Education Outcome: Verbalized Understanding and Demonstrated Understanding Goals Patient Stated Goal: to walk Encounter Problems Encounter Problems (Active) Balance Patient will maintain dynamic standing balance for 2 minutes with SBA in order to demonstrate decreased risk of falling. Start: 11/15/24 Expected End: 11/22/24 Exercise Patient will complete lower extremity exercises for 1-2 sets / 5-10 reps in order to improve strength and activity tolerance for mobility. Start: 11/15/24 Expected End: 11/22/24 Mobility Patient will ambulate 20 feet with CGA and rolling walker in order to improve safety and independence with mobility. Start: (more content not included)... [facility] 11-15-2024 Note Patient states she q uit smoking in 2013, no history of vaping or smokeless tobacco. Smoking cessation counseling not indicated. [facility] 11-15-2024 Note Care Management Prog ress Note Short Medical why still here: UTI, bacteremia. On IV antibiotics. ID following. Oxygen at 2l?NC> decadron. Pulmonology and cardiology following. Planned Discharge Disposition: Senior Care/Residential Care (she is jail care at [facility], plan is to return) no precert needed. Barriers/Today we still Wait: Administering IV medications, Clinical stability, Symptomatic control Length of Stay (Days): 2 GMLOS: No GMLOS Documented biodiesel product development manager to follow for discharge planning. [facility] 11-15-2024 Note [facility] Cardiology /Electrophysiology Progress Note HPI / Interval History: Divya Joseph presents to [facility] due to mental status changes. She has a history of coronary artery disease, remote bypass surgery, sick sinus syndrome, s/p placement of a permanent pacemaker, hypertension, paroxysmal atrial fibrillation COPD, anemia, who lives in a SNF. She has been febrile and has been diagnosed with a UTI. CTA of her chest suggestive of possible PE. Vascular US with no evidence of DVT in the BLE. She was seen in consultation with Dr. Day due to elevated troponin up 152 and a BNP of 8,878. She is felt to have a type II NSTEMI in the setting of sepsis and UTI. She has had no chest pain or EKG changes. Echocardiogram 11/14/2024 EF-55%. She been maintaining a SR, anticoagulated on warfarin with a therapeutic- INR 3.3 today. She was transferred to the ICU 11/14 due to hypotension, requiring vasopressor support. Antibiotics and supportive care continues per ICU. Pt states she is comfortable. Denies chest pain or palpitations. No longer on vasopressor support. GDMT-metoprolol and lisinopril remain on hold. BP and HR controlled. Assessment/Plan HF NYHA Class [] I [] II [] III [] IV []Unable to assess [] N/A Abnormal troponin- no evidence of ACS. Type II NSTEMI in the setting of sepsis and UTI. - she has remained CP free - Echo 11/14 with preserved EF. - low dose aspirin and pravastatin continues 2. Hx of CAD with remote CABG- has remained CP free - will resume cardioprotective meds once she is more recovered from infection - metoprolol 25 mg twice daily, lisinopril 5 mg daily, and Imdur 30 mg daily continue to be on hold. - low dose aspirin and pravastatin continue 3. Elevated BNP- pt appears to be compensated. Comfortable on oxygen NC 2 l/m - remain off diuretic therapy - continue to monitor- CXR 11/14 with small to moderate left pleural effusion, suspected small right pleural effusion. suspected interstitial edema 4. Sepsis- UTI- per ICU. Antibiotics continue 5. Atrial fibrillation- maintaining a SR. Anticoagulated on warfarin- INR 3.3 - rate well controlled - metoprolol on hold as noted above Medications: Scheduled Meds[1] Infusion Medications: Continuous Meds[2] Physical Examination: Vitals: 11/15/24 0405 11/15/24 0417 11/15/24 0502 11/15/24 0602 BP: 108/59 115/55 133/74 132/62 BP Location: Right arm Patient Position: Lying Pulse: 69 71 73 71 Resp: (!) 26 22 24 (!) 26 Temp: 36.8 ?C (98.2 ?F) TempSrc: Oral SpO2: 93% 96% 97% 97% Weight: 165 lb 2 oz (74.9 kg) Height: Intake/Output Summary (Last 24 hours) at 11/15/2024 0722 Last data filed at 11/15/2024 041 Gross per 24 hour Intake 600 ml Output 4500 ml Net -3900 ml Patient Vitals for the past 168 hrs: Weight Weight Method 11/15/24 041 165 lb 2 oz (74.9 kg) Bed scale 11/14/24 0740 165 lb (74.8 kg) -- 11/13/24 192 165 lb 12.6 oz (75.2 kg) Bed scale Physical Exam Constitutional: NAD Psychiatric: Alert. Medical insight good Neck: No JVD Respiratory: Lungs are clear, diminished anteriorly Heart: regular ; Nl S1 and S2, no murmur, no rub, gallop Abdomen: NABS; soft, non-tender, non-distended Extremities: no LE edema Skin: Warm to touch and well perfused Laboratory Tests: TROPONIN I, CONVENTIONAL SENSITIVITY No results found for: CKTOTAL, CKMB, CKMBINDEX, TROPONINI TROPONIN I, HIGH SENSITIVITY Troponin HS Serial Baseline Date Value Ref Range Status 11/13/2024 78 (H) <=14 ng/L Final Comment: In individuals presenting with symptoms > 2h, a baseline troponin <= 5 ng/L suggests acute cardiac injury is unlikely and further serial testing is generally not indicated. 10/28/2024 10 <=14 ng/L Final Comment: In individuals presenting with symptoms > 2h, a baseline troponin <= 5 ng/L suggests acute cardiac injury is unlikely and further serial testing is generally not indicated. 2h Troponin HS (Serial 2nd Troponin) Date Value Ref Range Status 11/13/2024 90 (H) <=14 ng/L Final Comment: Rising or falling troponin delta between 2 - 15 ng/L as compared to baseline value requires a 3rd serial troponin 10/28/2024 12 <=14 ng/L Final Comment: Rising or falling troponin delta below 2 ng/L as compared to baseline value suggests that acute cardiac injury is unlikely. No results found for: TROPDELTBASE 4h Troponin HS (Serial 3rd Troponin) Date Value Ref Range Status 11/13/2024 152 (H) <=14 ng/L Final Comment: 4h troponin (3rd troponin) samples collected between 1h 40 min and 2h and 20 min of the 2h troponin collection time can be utilized to interpret delta troponins as per [facility] algorithms. Samples collected outside this timeframe need to be interpreted clinically. Rising or falling troponin delta greater than 15 ng/L as compared to 2h troponin value is significant for acute cardiac injury. No results found for: TROPDELTSEC (more content not included)... [facility] 11-15-2024 Note ICU Progress Note Name: Divya Joseph : 1950(74 y.o.) Date: 11/15/24 Team: MICU Attending: Dede Subjective: Hospital Summary: 74 year old female with a PMH of CAD s/p CABG, HTN, A-fib, SSS s/p PPM, PVD, COPD, Anemia, Dysphagia, Debility, who presents to the ED today from SNF with altered mental status. Patient complained of abdominal pain and difficulty urinating. Initially admitted to [facility] for infectious work up and empiric antibiotics. However became hypotensive requiring vasopressor support and transfer to ICU. Interval Events: Ms Joseph seen and evaluated at bedside. Overnight developed respiratory distress. Imaging consistent with pulmonary edema. She received 1x dose Lasix with resolution. Today she is resting comfortably in bedside chair. Scheduled Meds:Scheduled Meds[1] Continuous Infusions:Continuous Meds[2] Objective: Last Vitals: BP MAP 133/74 (11/15/24 050) 91 (11/15/24501) Arterial BP MAP Temp 36.8 ?C (98.2 ?F) (11/15/24416) Pulse 73 (11/15/24501) Resp 24 (11/15/24501) SpO2 97 % (11/15/24501) Weight 74.9 kg (165 lb 2 oz) (11/15/24416) BMI Body mass index is 29.25 kg/m?. I/O: 11/14 0700 - 11/15 0659 In: 600 Out: 4500 [Urine:4500] Ventilator: FiO2 (%): (!) 4 % Oxygen Delivery: O2 Flow Rate (L/min): 2 L/min Invasive Lines / Tubes / Drains: Peripheral IV 11/13/24 Right Antecubital (Active) Number of days: 0 Peripheral IV 11/13/24 Anterior;Distal;Right Forearm (Active) Number of days: 0 External Urinary Catheter (Active) Number of days: 0 Central Line Indication: NA - patient does not have a central line Rojo Indications: NA - patient does not have a Rojo catheter Restraints: NA - patient is not restrained. Wounds: Constitutional: General Appearance [x]WDWN []Obese []Cachectic []Thin []Ill Eyes: Inspection of Pupils/Irises Pupils round and react: [x]Yes []No Sclera: []Icteric [x]Non-Icteric Inspection of Conjunctiva/Lids Conjunctiva: []Injected [x]Non-Injected Lids: [x]Intact []Lesion Present ENT/Mouth: External Inspection of ears/nose [x] Normal [] Scar/Lesion/Mass Inspection of teeth/lips/gums Dentition: []Pauma Teeth []Dentures Lips/Gums: [x]Intact []Lesion Present Mucosa: [x]Spurgeon []Moist []Dry Neck: External Appearance Overall Appearance: [x]Normal []Lesion/Mass/Crepitus Present Trachea midline: [x]Yes []No Thyroid []Normal []Enlarged []Tender []Mass []Absent Respiratory: Respiratory effort []Labored [x]Non-Labored [] Mechanically-Ventilated Auscultation [x]Clear []Crackles []Wheezes []Rhonchi Cardiovascular: Auscultation Rate: [x]Regular []Irregular []Tachycardia []Bradycardia Rhythm: [x]Regular []Irregular Murmur: []Present [x]Absent Extremities Peripheral Edema: []Present [x]Absent Varicosities: []Present [x]Absent Gastrointestinal: Abdomen Palpation: [x]Soft []Firm []Tender [x]Non-Tender []Distended [x]Non-distended Mass: []Present []Absent Bowel Sounds: [x]Present []Absent Hernia: []Present []Absent Liver/Spleen: []Hepatosplenomegaly []Organomegaly Absent Musculoskeletal: Inspection of Digits and Nails Cyanosis: []Present [x]Absent Clubbing: []Present [x]Absent Ischemia: []Present [x]Absent Infection: []Present [x]Absent Extremities TRIVEDI Equally: Except ([]RUE []RLE []LUE []LLE) Strength/Tone: Intact and Normal ([]RUE []RLE []LUE []LLE) Skin: Inspection [x]Normal []Rash []Lesion []Ulcer Palpation [x]Warm []Cool [x]Dry []Clammy []Nodules []Induration []Skin-tightening Cap-Refill: [] <3 sec [] >3 seconds (delayed) Neurologic: GCS EYE: 4 - Opens spontaneously GCS MOTOR: 6 - Obeys commands for movement GCS VERBAL: 5 - Oriented to person, place, time Total GCS: 15 [] Sensation grossly intact Psych: Mental Status Alert: [x]Yes [] No Oriented: []x0 []X1 []X2 []x3 Mood/Affect [x]Normal []Flat []Agitated []Depressed []Anxious []Calm []Sedated [x]NAD [facility] within last 24 hours- BMP: Recent Labs 11/13/24192511/14/2451511/15/24418 NA 142 141 141 K 3.1* 3.7 3.1* CL 109* 108* 100 CO2 21* 27 31 BUN 11 13 13 CREATININE 0.79 0.72 0.79 CALCIUM 7.5* 8.7* 8.8 MG 1.7 1.7 1.8 PHOS 3.0 2.5 1.8* LFTs: Recent Labs 11/13/2451 11/13/24 1022 11/13/24192511/14/2451511/15/24418 AST 34* -- -- 32 32 ALT 11 -- -- 7 10 PROT 6.5 -- -- 5.3* 6.1* ALBUMIN 3.2* -- -- 2.5* 3.2* BILITOT 0.9 -- -- 0.6 0.6 BILIRUBINU -- Negative -- -- -- ALKPHOS 66 -- -- 54 52 LIPASE -- -- 4 -- -- Glucose: Recent Labs 11/13/2495011/13/24192511/14/2451511/15/24418 GLUCOSE 152* 141* 108 168* Procal: No results for input(s): PROCAL in the last 72 hours. CBC: Recent Labs 11/13/2495011/14/2451511/14/24199911/15/24418 WBC 12.7* 18.2* -- 8.6 HGB 11.2* 9.8* 8.6* 9.2* 8.5* HCT 34.2* 30.6* -- 28.7* PLT 184 160 -- 133* MCV 84. (more content not included)... [facility] 11-14-[address] [facility] Name/MRN: Divya Joseph ([id number]) Date: 11/14/2024 Evaluation is being deferred at present because pt is currently off of the floor . Adeline You, PT [facility] 11-14-2024 Consult note Associated Order (s): IP CONSULT TO PULMONOLOGY Consult acknowledge and imaging reviewed. 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 No OP follow up needed. Agree with anticoagulation. We can see PRN Associated Order(s): IP CONSULT TO INFECTIOUS DISEASES Images from the original note were not included. [facility] - Infectious Diseases Attending Consult Note Reason for Consult: Septic shock, E coli bacteremia, E coli UTI with hydroureter. History of Present Illness: 74 y/o female was admitted on 11/13/24 from SNF with altered mental status, fever, abdominal pain, difficulty urination; on presentation in ED, her temp was 100.3 F, then, spiked to 100.9 F, was tachypneic (R 24); labs showed leukocytosis 12.7 k, pyuria with >100 wbc, lactic acidosis 2.9 that increased to 3.4, ceftriaxone was given; was initially admitted to [facility] for infectious work up and empiric antibiotics, she became hypotensive requiring vasopressor support and was transferred to ICU. She was seen, found her alert, laying upright on bed; c/o SOB, wheeze, suprapubic pain, she appeared distressed and ill. She has h/o CAD, CABG, HTN, A-fib, SSS requiring PPM, PVD, COPD, Anemia, Dysphagia, Debility. She was examined; notes, labs, imaging were reviewed; treatment plan was discussed; clinical informations were documented in electronic record. Past Medical History: Medical History[1] Past Surgical History: Surgical History[2] Current Medications: Current Medications[3] Allergies: Allergies[4] Social History: Social History Socioeconomic History Marital status: Spouse name: Not on file Number of children: Not on file Years of education: Not on file Highest education level: Not on file Occupational History Not on file Tobacco Use Smoking status: Former Types: Cigarettes Smokeless tobacco: Never Substance and Sexual Activity Alcohol use: Not Currently Drug use: Never Sexual activity: Not on file Other Topics Concern Not on file Social History Narrative Not on file Social Drivers of Health Financial Resource Strain: Not on file Food Insecurity: Not on file Transportation Needs: Not on file Physical Activity: Not on file Stress: Not on file Social Connections: Not on file Intimate Partner Violence: Not on file Housing Stability: Not on file Family History: Family History[5] Review of Systems: Review of Systems Constitutional: Positive for activity change, appetite change, chills and fatigue. Negative for diaphoresis, fever and unexpected weight change. HENT: Positive for rhinorrhea. Negative for congestion and sore throat. Eyes: Negative for visual disturbance. Respiratory: Positive for shortness of breath. Negative for cough. Cardiovascular: Positive for chest pain (right lower chest pain yesterday radiating to back). Negative for palpitations. Gastrointestinal: Positive for abdominal pain (lower abd, suprapubic area), nausea and vomiting. Negative for blood in stool, constipation and diarrhea. Genitourinary: Positive for urgency. Negative for dysuria, flank pain, frequency and hematuria. Musculoskeletal: Negative for back pain and neck pain. Skin: Negative for rash and wound. Allergic/Immunologic: Negative for environmental allergies and food allergies. Neurological: Negative for dizziness, syncope, weakness and headaches. Hematological: Bruises/bleeds easily. Psychiatric/Behavioral: Negative for dysphoric mood. The patient is not nervous/anxious. All other systems reviewed and negative. Vitals: Patient Vitals for the past 24 hrs: BP Temp Temp src Pulse Resp SpO2 Height Weight 11/14/24 1102 146/81 -- -- 78 19 100 % -- -- 11/14/24 1002 126/71 -- -- 92 18 98 % -- -- 11/14/24 0933 140/61 -- -- 85 (!) 28 97 % -- -- 11/14/24 0903 -- -- -- 73 24 100 % -- -- 11/14/24 0902 154/68 -- -- 74 20 -- -- -- 11/14/24 0833 144/57 -- -- 76 21 100 % -- -- 11/14/24 0802 128/69 -- -- 67 23 100 % -- -- 11/14/24 0740 -- -- -- -- -- -- 1.6 m (5' 3) 74.8 kg (165 lb) 11/14/24 0703 137/55 -- -- 60 (!) 26 100 % -- -- 11/14/24 0618 154/62 -- -- 60 21 100 % -- -- 11/14/24 0603 122/50 -- -- 60 21 98 % -- -- 11/14/24 0519 112/61 -- -- 93 24 100 % -- -- 11/14/24 0503 122/51 -- -- 60 25 100 % -- -- 11/14/24 0402 (!) 141/45 36.7 C (98.1 F) Oral 64 21 100 % -- -- 11/14/24 0302 (!) 132/48 -- -- 61 16 100 % -- -- 11/14/24 0202 (!) 141/45 -- -- 62 23 99 % -- -- 11/14/24 0103 (!) 118/42 -- -- 65 22 99 % -- -- 11/14/24 0030 94/62 -- -- 67 24 100 % -- -- 11/14/24 0005 (!) 114/46 -- -- 69 21 100 % -- -- 11/13/24 2350 114/100 36.7 C (98.1 F) Oral 64 22 100 % -- -- 11/13/24 2309 (!) 114/47 -- -- 63 18 100 % -- -- 11/13/242202 (!) 119/49 -- -- 66 19 100 % -- -- 11/13/242148 142/50 -- -- 68 18 100 % -- -- 11/13/242123 (!) 81/42 -- -- 75 18 99 % -- -- 11/13/242101 99/54 -- -- 71 20 100 % -- -- 11/13/242032 111/50 -- -- 82 21 100 % -- -- 11/13/242020 (!) 104/47 -- -- 76 19 98 % -- -- 11/13/242002 96/50 -- -- 71 20 100 % -- -- 11/13/241946 -- -- -- 66 19 100 % -- -- 11/13/24 192 100/60 37.2 C (98.9 F) Oral 70 21 97 % 1.6 m (5' 3) 75.2 kg (165 lb 12.6 oz) 11/13/24 1903 (!) 82/52 37.6 C (99.6 F) Oral 75 24 96 % -- -- 11/13/24 1817 (!) 103/45 37.9 C (100.2 F) Temporal 75 24 96 % -- -- 11/13/24 1815 (!) 96/43 -- -- 75 -- 96 % -- -- 11/13/24 1547 -- -- -- 69 20 98 % -- -- 11/13/24 1512 (!) 143/98 (!) 38.3 C (100.9 F) Temporal 81 22 97 % -- -- 11/13/24 1436 103/85 -- -- 74 22 99 % -- -- 11/13/24 1326 136/66 -- -- 73 (!) 32 -- -- -- Physical Exam: Physical Exam Vitals and nursing note reviewed. Constitutional: General: She is awake. She is in acute respiratory distress. Appearance: She is well-developed. She is not toxic-appearing or diaphoretic. HENT: Head: Normocephalic and atraumatic. Right Ear: External ear normal. Left Ear: External ear normal. Nose: Nose normal. Mouth/Throat: Mouth: Mucous membranes are dry. Pharynx: Oropharynx is clear. Comments: Edentulous Eyes: Extraocular Movements: Extraocular movements intact. Conjunctiva/sclera: Conjunctivae normal. Pupils: Pupils are equal, round, and reactive to light. Neck: Vascular: No JVD. Trachea: No tracheal deviation. Cardiovascular: Rate and Rhythm: Normal rate and irregular rhythm. Pulses: Normal pulses. Heart sounds: Normal heart sounds. Pulmonary: Effort: Tachypnea present. +audible wheeze, + respiratory distress. Breath sounds: Normal breath sounds. Abdominal: General: There is no distension or abdominal bruit. Palpations: Abdomen is soft. Tenderness: There is abdominal tenderness in the right lower quadrant, left lower quadrant and suprapubic area. There is no guarding or rebound. Hernia: No hernia is present. Musculoskeletal: General: Tenderness present. Right lower leg: Edema present. Left lower leg: Edema present. Comments: Left greater then right LE edema Skin: General: Skin is warm and dry. Capillary Refill: Capillary refill takes less than 2 seconds. Coloration: Skin is not cyanotic. Nails: There is no clubbing. Comments: Skin hot Neurological: General: No focal deficit present. Mental Status: She is alert and oriented to person, place, and time. Sensory: Sensation is intact. Motor: Motor function is intact. Psychiatric: Mood and Affect: Mood normal. Behavior: Behavior normal. Behavior is cooperative. Labs: Recent Labs 11/13/24 0951 11/13/24 1926 11/14/24 0516 NA 142 142 141 K 3.1* 3.1* 3.7 CL 105 109* 108* CO2 27 21* 27 BUN 9 11 13 CREATININE 0.85 0.79 0.72 GLUCOSE 152* 141* 108 CALCIUM 8.6* 7.5* 8.7* PROT 6.5 -- 5.3* BILITOT 0.9 -- 0.6 ALKPHOS 66 -- 54 AST 34* -- 32 ALT 11 -- 7 Recent Labs 11/13/24 0951 11/14/24 0516 WBC 12.7* 18.2* HGB 11.2* 9.8* 8.6* HCT 34.2* 30.6* PLT 184 160 LYMPHOPCT 6* 12* MONOPCT 3* 3* Micro: No results for input(s): COVID19 in the last 72 hours. 11/13/2024 1022 11/14/2024 1204 Urine culture [[id number]] (Abnormal) Urine, Clean Catch Preliminary result Component Value Urine Culture >100,000 CFU/mL Escherichia coli Abnormal P 11/13/2024 1009 11/14/2024 0011 Blood culture Site #2 - Suspected Infection [[id number]] (Abnormal) Blood, Venous Preliminary result Component Value Blood Culture Gram-negative bacilli Panic P 11/13/2024 1008 11/14/2024 0010 Blood culture Site #1 - Suspected Infection [[id number]] (Abnormal) Blood, Venous Preliminary result Component Value Blood Culture Gram-negative bacilli Panic P 11/13/2024 1008 11/14/2024 0007 Blood Culture Identification - Anaerobic [[id number]] (Abnormal) Blood, Venous Final result Component Value Escherichia coli Detected Abnormal 11/13/2024 0959 11/13/2024 1056 SARS-CoV-2, Flu A/B, and RSV Combo [[id number]] Swab from Nasopharynx Final result Component Value SARS-CoV-2 Not Detected Respiratory Syncytial Virus Not Detected Influenza A Not Detected Influenza B Not Detected 11/13/2024 0958 11/13/2024 2125 Respiratory Pathogens Panel by PCR [[id number]] Swab from Nasopharynx Final result Component Value SARS-CoV-2 Not Detected Adenovirus Not Detected Coronavirus HKU1 Not Detected Coronavirus NL63 Not Detected Coronavirus 229E Not Detected Coronavirus OC43 Not Detected Human Metapneumovirus Not Detected Human Rhinovirus/Enterovirus Not Detected Influenza A Not Detected Influenza B Not Detected Parainfluenza 1 Not Detected Parainfluenza 2 Not Detected Parainfluenza 3 Not Detected Parainfluenza 4 Not Detected Respiratory Syncytial Virus Not Detected Bordetella pertussis Not Detected Bordetella parapertussis Not Detected Chlamydia pneumoniae Not Detected Mycoplasma pneumoniae Not Detected Lines: PIV site ok Radiography/Echo/Other: FL modified barium with video and speech - In process [[id number]] Resulted: 11/14/24 1305 Order Status: Sent Updated: 11/14/24 1346 This result has not been signed. Information might be incomplete. CT abdomen pelvis w contrast [[id number]] Collected: 11/13/24 1115 Order Status: Completed Updated: 11/13/24 1123 Narrative: [facility] 1950 [id number] Exam Date/Time: 11/13/2024 10:55 Procedure: CT ABDOMEN PELVIS W CONTRAST Ordering Provider: ACOSTA YASMIN Reason For Exam: Abdominal pain, acute, nonlocalized EXAMINATION: CT ABDOMEN PELVIS W CONTRAST CLINICAL HISTORY: Abdominal pain, acute, nonlocalized COMPARISON: None TECHNIQUE: Contiguous axial images were obtained through the abdomen and pelvis from the level of the diaphragmatic domes through the pubic symphysis following bolus administration of intravenous contrast. Dose reduction was employed with automated exposure control. FINDINGS: Included images of the lower thorax: Small bilateral pleural effusions are noted, left greater than right. There is dependent atelectasis in the bilateral lung bases. Hepatobiliary: Unremarkable liver without biliary dilation evident. The gallbladder is surgically absent. Pancreas: Unremarkable Spleen: Unremarkable Adrenal Glands: Unremarkable Kidneys and ureters: Right renal cyst is noted. There is mild right-sided hydroureter. Abdominal vasculature: Atherosclerotic wall calcifications are present without aneurysm. GI tract: No evidence of obstruction. The appendix is normal. Peritoneum and retroperitoneum: No free fluid or free air is noted. Lymph Nodes: No abdominal lymphadenopathy is evident. 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 There is grade 1 anterolisthesis of L5 on S1. Impression: 1. Small bilateral pleural effusions, left greater than right. 2. Mild right-sided hydroureter. Report Dictated on Electronically Signed By: Wong Srinivasan MD Electronically Signed Date/Time: 11/13/2024 11:[address] chest angiogram w and/or wo IV contrast [[id number]] Collected: 11/13/24 1122 Order Status: Completed Updated: 11/13/24 1130 Narrative: Patient Name: DIVYA JOSEPH : 1950 Exam Date/Time: 11/13/2024 10:55 Procedure: CT CHEST ANGIOGRAM W AND/OR WO IV CONTRAST Ordering Provider: ACOSTA YASMIN Reason For Exam: Pulmonary embolism (PE) suspected, high prob CT ANGIOGRAPHY CHEST: CLINICAL INDICATION: Pulmonary embolism (PE) suspected, high prob TECHNIQUE: Transaxial sequence from apices through the bases during dynamic intravenous infusion of contrast media, injected at a high flow rate. Multiplanar and 3D MIP reconstruction was performed concurrently on an independent viewing workstation. Dose reduction was employed with automated exposure control. COMPARISON: None FINDINGS: Lungs: No consolidation or atelectasis. No parenchymal or pleural-based mass. Pleural fluid: None. Exam quality: Examination is somewhat limited due to motion artifact from the patient's breathing. Good contrast enhancement of the vasculature. Pulmonary Arteries: Examination is limited due to motion artifact. There is decreased attenuation involving multiple segmental and subsegmental pulmonary artery supplying the right upper lobe, however evaluation is limited due to motion artifact.. Aorta: Normal caliber. Atherosclerotic calcifications. Heart: No abnormality . Coronary Arteries: coronary artery calcification. Mediastinum/Ne: No mediastinal or hilar mass. Upper abdomen: Unremarkable. Osseous structures: No abnormality. Soft tissues chest wall/Neck base: No abnormality identified. Impression: Examination is limited due to motion artifact. There is decreased attenuation involving multiple segmental and subsegmental pulmonary artery supplying the right upper lobe which could represent pulmonary emboli, however evaluation is limited due to the motion artifact. The RV/LV ratio is less than one.. . Report Dictated on Electronically Signed By: Wong Srinivasan MD Electronically Signed Date/Time: 11/13/2024 11:[address] head wo IV contrast [[id number]] Collected: 11/13/24 1113 Order Status: Completed Updated: 11/13/24 1116 Narrative: [facility] 1950 [id number] Exam Date/Time: 11/13/2024 10:55 Procedure: CT HEAD WO IV CONTRAST Ordering Provider: ACOSTA YASMIN Reason For Exam: Mental status change, unknown cause EXAMINATION: CT HEAD WO IV CONTRAST HISTORY: Mental status change, unknown cause - - - - - [id number] - - - - TECHNIQUE: CT head without contrast. Dose reduction was employed with automated exposure control. COMPARISON: None. RESULT: Acute change: No evidence of an acute intracranial process. Hemorrhage: No evidence of acute intracranial hemorrhage. Mass Lesion / Mass Effect: No evidence of an intracranial mass, extra-axial fluid collection, or significant localized mass effect. Chronic change: None apparent. Parenchyma: There is no significant volume loss. The brain parenchyma is otherwise within normal limits for age. Ventricles: Normal caliber and morphology. Other: The calvarium, skull base, imaged paranasal sinuses, mastoids, orbits and extracranial soft tissues are unremarkable. Visual Merchandise Manager (topogram) images: No additional findings. Impression: No CT evidence of an acute intracranial abnormality. Report Dictated on Electronically Signed By: Wong Srinivasan MD Electronically Signed Date/Time: 11/13/2024 11:15 AM EDT XR chest 1 view [[id number]] Collected: 11/13/24 1028 Order Status: Completed Updated: 11/13/24 1032 Narrative: Patient Name: DIVYA JOSEPH : 1950 Exam Date/Time: 11/13/2024 10:21 Procedure: XR CHEST 1 VIEW Ordering Provider: ACOSTA YASMIN Reason For Exam: ALTERED MENTAL STATUS HISTORY: Altered mental status Frontal view the chest with comparison study from 10/28/2024 shows slight hypoinflation with pulmonary vascular prominence. Prior chest surgery with median sternotomy wires and dual-lead pacemaker with surgical clips left neck Report Dictated on Electronically Signed By: Grant Bagley MD Electronically Signed Date/Time: 11/13/2024 10:31 AM EDT 11/14/24 TTE: Interpretation Summary Show Result Comparison Left Ventricle: Left ventricle size is normal. Mild basal septal thickening. Normal left ventricular systolic function. EF by 2D Simpsons Biplane is 55%. Global longitudinal strain is normal with a value of -19.8%. See diagram for wall motion findings. Grade II diastolic dysfunction with increased LAP. Elevated left ventricular filling pressure. Average E/e' ratio is 14.60. Right Ventricle: Right ventricle size is normal. Pacemaker lead present in the right ventricle. Normal systolic function. Mitral Valve: Mild (1+) regurgitation. Tricuspid Valve: Mild to moderate (1-2+) regurgitation. Mildly elevated RVSP. RVSP is 44 mmHg. Left Atrium: Left atrium size is moderately increased (LA volume index 42-48 mL/m2).LA Vol Index is 37 ml/m2. Aorta: Normal sized sinuses of Valsalva and ascending aorta. There is a small outpouching on the anterior aspect of the aorta with blood flow as per color Doppler interrogation. Based on history and CTA, suspect this is the ostium of a prior CABG anastomosis, reccomend radiographic corrleation if clinicially indicated. Echo Findings Left Ventricle Left ventricle size is normal. Mild basal septal thickening. Normal left ventricular systolic function. EF by 2D Simpsons Biplane is 55%. Global longitudinal strain is normal with a value of -19.8%. See diagram for wall motion findings. Grade II diastolic dysfunction with increased LAP. Elevated left ventricular filling pressure. Average E/e' ratio is 14.60. Right Ventricle Right ventricle size is normal. Pacemaker lead present in the right ventricle.Normal systolic function. Left Atrium Left atrium size is moderately increased (LA volume index 42-48 mL/m2).LA Vol Index is 37 ml/m2. Interatrial Septum No interatrial shunt visualized on color Doppler. Right Atrium Right atrium size is normal. Pacemaker lead present in the right atrium. Aortic Valve Trileaflet. Mildly calcified cusps. Mild annular calcification. No regurgitation. No stenosis. Mitral Valve Valve structure is normal. Mild annular calcification. Mild (1+) regurgitation. No stenosis noted. Tricuspid Valve Valve structure is normal. Mild to moderate (1-2+) regurgitation. Mildly elevated RVSP. RVSP is 44 mmHg. Pulmonic Valve Valve structure is normal. Mild to moderate (1-2+) regurgitation. Pulmonary Artery Pulmonary artery was not well visualized. Aorta Normal sized sinuses of Valsalva and ascending aorta. There is a small outpouching on the anterior aspect of the aorta with blood flow as per color Doppler interrogation. Based on history and CTA, suspect this is the ostium of a prior CABG anastomosis, reccomend radiographic corrleation if clinicially indicated. IVC/Hepatic Veins IVC diameter is normal and decreases greater than 50% during inspiration; therefore the estimated right atrial pressure is normal (~3 mmHg). IVC Diameter is 2.0 cm. Pericardium No pericardial effusion. Antimicrobials,Start/End Dates: Ceftr 11/13- Ertapenem 11/14- Impression: Septic shock. E coli bacteremia. E coli UTI with hydroureter. Acute respiratory failure requiring O2. Sick sinus syndrome, requiring placement of a permanent pacemaker. Altered Mental Status. Improved. Acute deep vein thrombosis (DVT), both lower extremities. ? PE. Plan: Pt sick due to septic shock due to E coli bacteremic UTI/ pyelonephritis. Pt with hypoxia, r/o PE, r/o pneumonia. check sputum cx, check legionella Ag. [facility] resident. Await E coli sensitivity result. Leukocytosis worsened today. Substitute ertapenem for ceftriaxone. She has PPM, TTE demonstrated mitral, tricuspid and pulmonic valves regurgitations. Repeat blood cxs in AM. High level complexity medical decision making. Will follow. Thank you. Total time of 75 minutes on this day of encounter spent on, but not limited to review of tests, medical records , complex history , review of external medical records, paper and electronic, counseling and education (patient, family member, caregiver), ordering medications, tests, and procedures, communication with other health care professions, independent interpretation of tests, care coordination, arrangement of outpatient antimicrobial therapy, post-hospitalization therapy and follow-up, and counseling for risks, benefits, and consideration of use of antimicrobials. [1] Past Medical History: Diagnosis Date Altered mental status, unspecified Ataxia Atherosclerotic heart disease Bradycardia, unspecified Cognitive communication deficit COPD (chronic obstructive pulmonary disease) ([facility]) i was told i had COPD, then I was told i wasn't, i don't know for sure Difficulty walking Dysphagia, oropharyngeal phase Dyspnea Essential (primary) hypertension Gastro-esophageal reflux disease without esophagitis Muscle weakness (generalized) Need for assistance with personal care Other chronic pain Pain in left shoulder Paroxysmal atrial fibrillation ([facility]) Peripheral vascular disease, unspecified ([facility]) Presence of cardiac pacemaker Repeated falls Sick sinus syndrome (CMS/HCC) ([facility]) Unsteadiness on feet Weakness [2] Past Surgical History: Procedure Laterality Date BYPASS GRAFT 2006 triple bypass. two grafted from left leg, one from right leg. used for coronary artery CARDIAC PACEMAKER PLACEMENT 2013 did another one 2023 CHOLECYSTECTOMY 1992 [3] Current Facility-Administered Medications Medication Dose Route Frequency Provider Last Rate Last Admin acetaminophen (Tylenol) tablet 650 mg 650 mg Oral q6h PRN LEONCIO Naqvi ORACLE DATABASE ADMINISTRATOR 650 mg at 11/13/24 2349 aspirin chewable tablet 81 mg 81 mg Oral Daily Jovanny Tobar APRN - ORACLE DATABASE ADMINISTRATOR 81 mg at 11/14/24 0833 cefTRIAXone (Rocephin) 2,000 mg in sodium chloride 0.9 % 50 mL IVPB Mini-Bag Plus 2,000 mg IntraVENous q24h Jovanny Tobar APRN - ORACLE DATABASE ADMINISTRATOR Stopped at 11/14/24 1134 cetirizine (ZyrTEC) tablet 5 mg 5 mg Oral Daily Jovanny Tobar APRN - ORACLE DATABASE ADMINISTRATOR 5 mg at 11/14/24 0833 folic acid (Folvite) tablet 1 mg 1 mg Oral Daily Jovanny Tobar APRN - ORACLE DATABASE ADMINISTRATOR 1 mg at 11/14/24 0833 ipratropium-albuterol (Duo-Neb) 0.5-2.5 mg/3 mL nebulizer solution 3 mL 3 mL Nebulization 4x daily LEONCIO Naqvi ORACLE DATABASE ADMINISTRATOR 3 mL at 11/14/24 1208 [Held by provider] isosorbide mononitrate ER (Imdur) 24 hr tablet 30 mg 30 mg Oral Daily Jovanny P Ekaterina, SNAPPER ON - ORACLE DATABASE ADMINISTRATOR [Held by provider] lisinopril tablet 5 mg 5 mg Oral Daily Jovanny P Ekaterina, SNAPPER ON - ORACLE DATABASE ADMINISTRATOR melatonin tablet 3 mg 3 mg Oral Nightly PRN Mili Ezzie, SNAPPER ON - ORACLE DATABASE ADMINISTRATOR methocarbamol (Robaxin) tablet 500 mg 500 mg Oral q8h PRN Jovanny P Ekaterina, SNAPPER ON - ORACLE DATABASE ADMINISTRATOR [Held by provider] metoprolol tartrate (Lopressor) tablet 25 mg 25 mg Oral BID Jovanny P Ekaterina, SNAPPER ON - ORACLE DATABASE ADMINISTRATOR montelukast (Singulair) tablet 10 mg 10 mg Oral Nightly Jovanny P Ekaterina, SNAPPER ON - ORACLE DATABASE ADMINISTRATOR 10 mg at 11/13/241 mupirocin (Bactroban) 2 % ointment 1 Application 1 Application Nasal BID Jovanny P Ekaterina, SNAPPER ON - ORACLE DATABASE ADMINISTRATOR 1 Application at 11/14/24 0833 nitroglycerin (Nitrostat) SL tablet 0.4 mg 0.4 mg SubLINGual q5 min PRN Jovanny P Ekaterina, SNAPPER ON - ORACLE DATABASE ADMINISTRATOR ondansetron ODT (Zofran-ODT) disintegrating tablet 4 mg 4 mg Oral q8h PRN Jovanny P Ekaterina, SNAPPER ON - ORACLE DATABASE ADMINISTRATOR Or ondansetron (Zofran) injection 4 mg 4 mg IntraVENous q6h PRN Jovanny P Ekaterina, SNAPPER ON - ORACLE DATABASE ADMINISTRATOR 4 mg at 11/13/24 1827 pantoprazole (ProtoNix) EC tablet 40 mg 40 mg Oral qAM AC Jovanny P Ekaterina, SNAPPER ON - ORACLE DATABASE ADMINISTRATOR 40 mg at 11/14/24 0512 polyethylene glycol (PEG) 3350 (Miralax) packet 17 g 17 g Oral Daily PRN Jovanny P Ekaterina, SNAPPER ON - ORACLE DATABASE ADMINISTRATOR pravastatin (Pravachol) tablet 80 mg 80 mg Oral Nightly Jovanny P Ekaterina, SNAPPER ON - ORACLE DATABASE ADMINISTRATOR 80 mg at 11/13/242120 sodium chloride 0.9 % infusion 5-250 mL/hr IntraVENous PRN Jovanny P Ekaterina, SNAPPER ON - ORACLE DATABASE ADMINISTRATOR sodium chloride 0.9% (NS) flush 5-40 mL 5-40 mL IntraVENous 2 times per day Jovanny P Ekaterina, SNAPPER ON - ORACLE DATABASE ADMINISTRATOR 10 mL at 11/14/24 0834 sodium chloride 0.9% (NS) flush 5-40 mL 5-40 mL IntraVENous PRN Jovanny Tobar APRN - EFRAÍN trospium (Sanctura) tablet 20 mg 20 mg Oral Daily Jovannysuhas Tobar APRN - ORACLE DATABASE ADMINISTRATOR 20 mg at 11/14/24 0833 warfarin (Coumadin) tablet 2.5 mg 2.5 mg Oral Once Carlos Chen MD [4] Allergies Allergen Reactions Regadenoson Anaphylaxis Ciprofloxacin Itching Metronidazole Dizziness Atorvastatin Hives Gluten Meal Other Sulfa Antibiotics Itching Wheat Metoprolol Rash Niacin Rash Penicillins Rash [5] No family history on file. Associated Order(s): IP CONSULT TO PALLIATIVE CARE Images from the original note were not included. Palliative Care Initial Consult Chief Complaint: Divya Joseph is a 74 y.o. female with chief complaint of fever, abdominal pain. Palliative Care is actively following. 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 Coli - Urine culture pending - UA + moderate bacteria, WBC >100, leukocytes 500 -now off levophed gtt Chronic Pain -PRN tylenol - Robaxin PRN for muscle spasms Acute encephalopathy, improved - Geriatrics consulted -CT head--> No CT evidence of an acute intracranial abnormality. -A&Ox3 during exam Debility - Resides at [facility] -PT/OT as able -typically uses wheelchair - had a fall about 1 week ago CAD s/p CABG HTN Afib Elevated Troponin - Cardiology consulted -ECHO--> Normal left ventricular systolic function. 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 following -rec NPO until [facility] Palliative Care Encounter -Code Status: Full Code - will continue to evaluate test results related to Dysphagia and bacteremia, acute encephalopathy, medication effectiveness for Dyspnea, Pain, and Fatigue, response to treatment of Dysphagia and bacteremia, acute encephalopathy PC Time Stamp: Total of 75 minutes spent on this encounter including Chart review, Patient visit and exam, Documentation in EHR, Care coordination, Communicating with primary attending or other consultants, Counseling and educating patient/family/caregiver, and Independently interpreting results and communicating results to patient/family/caregiver. Discharge planning: Not ready for discharge due to ongoing medical work-up/critical illness Patient meets criteria for general inpatient hospice care: No Palliative Care IDT members involved: None Discussed the plan of care with the other interdisciplinary team (IDT) members of the Palliative Care and Hospice teams and Patient, Primary Attending, and Floor Nurse. Subjective: Subjective/Events Divya Joseph is a 74 y.o. female with PMH CAD s/p CABG, HTN, A-fib, COPD, anemia, PVD, dysphagia, debility. She presented to ED from SNF with altered mentation. Pt also had been having fevers and reported abdominal pain as well as R rib pain, increased urgency & difficulty urinating. Pt also experienced LE swelling, chills, fatigue, shortness of breath. CTA chest showing RUL segmental PE. Troponin elevated. Initially admitted to F. However, required transfer to ICU due to hypotension, requiring pressors. Palliative care consulted for goals of care. Upon assessment today, patient is lying in bed awake. She is A&Ox3. On 3L NC. Has some shortness of breath with conversation. Reports pain in BLE, rates 10/10. Denies nausea or vomiting. Patient states last BM was Tuesday. However, patient states that this is normal for her. Denies constipation or diarrhea. GOC discussions: Met with patient at bedside. Introduced self and role and provided medical updates. Patient shares her goal is to get better and return back to nursing facility. Has lived at nursing facility for almost 1 year and enjoys it there. She states that her brother is HCPOA and sister in law is 1st alternate HCPOA. Discussed CODE STATUS. Patient states that she would be okay with 1 round of CPR to give a shot but would not want prolonged CPR. Pt also states she would not want intubation. Share that when a person is having CPR, they typically require intubation for airway protection. She says she will think about CODE STATUS further but wishing to remain a full code at this time. All questions answered. Pain Assessment Location: BLE Description: aching Frequency:Daily Duration: year(s) Alleviating Factors: relaxation and pain medication Exacerbating Factors: unable to associate with any factor Effect:Change in Function Palliative Care Assessments: Goals of care: Continue Current Management, Live Longer, extend life as much as possible, Improve or Maintain Function/Quality of Life, and return to nursing facility Advanced Directives: No Known Advance Directive Functional Assessment: PPS 50% mainly sit/lie; can't do any work/extensive disease; considerable assistance; normal or reduced intake; full LOC or confusion Prognosis: depends upon goals of care and uncertain at this time Spiritual Assessment: No spiritual distress identified Bereavement and Grief: Grief Issues Not Identified PDMP/OARRS Reviewed: No Report Available Social history: Marital status: Children: no children Living status: snf Work history: not asked [place] status: No Rastafari: None ROS: See palliative care ROS/ESAS below; All other systems were reviewed and are negative. [employer] Symptom Assessment Score [employer] Score Pain Score (if non-verbal, add .FLACC below) 10 Tiredness Score 3 Nausea Score 0 Depression Score 0 Anxiety Score 0 Drowsiness Score 0 Anorexia Score (0= eating well, 10= not eating) 4 Wellbeing Score (10= worst sense of well-being) 4 Constipation 0 Dyspnea Score (0= no shortness of breath) 2 Family Meeting: Participants: none held Family meeting was held to discuss:N/A Medical History[1] Surgical History[2] Family History[3] Unable to obtain family history due to N/A- family history available Allergies[4] Objective: BP 146/81 Pulse 78 Temp 36.7 C (98.1 F) (Oral) Resp 19 Ht 5' 3 (1.6 m) Wt 165 lb (74.8 kg) SpO2 100% BMI 29.23 kg/m Physical Exam Vitals reviewed. HENT: Head: Normocephalic. Nose: Nose normal. Mouth/Throat: Mouth: Mucous membranes are moist. Pharynx: Oropharynx is clear. Eyes: Pupils: Pupils are equal, round, and reactive to light. Cardiovascular: Rate and Rhythm: Normal rate and regular rhythm. Pulses: Normal pulses. Heart sounds: Normal heart sounds. Abdominal: General: Bowel sounds are normal. There is no distension. Palpations: Abdomen is soft. Tenderness: There is abdominal tenderness. There is no guarding. Skin: General: Skin is warm and dry. Neurological: Mental Status: She is alert and oriented to person, place, and time. Psychiatric: Mood and Affect: Mood normal. Behavior: Behavior normal. Medication information: 24-hour PRN meds received: zofran x1, tylenol x1 Results/Verification of Data Review Objective data reviewed (must include dates reviewed for labs, imaging reports and other specialty notes): Labs 11/14/24, CTA chest 11/13, CT abd/pelvis 11/13, CT head 11/13, blood culture 11/13, records, medication use, and chart reviewed on 11/14/24 Data in Support of Terminal Illness: Is patient hospice appropriate? TBD Transition Note Initiated: yes Gerald Triplett, SNAPPER ON - EFRAÍN [1] Past Medical History: Diagnosis Date Altered mental status, unspecified Ataxia Atherosclerotic heart disease Bradycardia, unspecified Cognitive communication deficit COPD (chronic obstructive pulmonary disease) (HCC) i was told i had COPD, then I was told i wasn't, i don't know for sure Difficulty walking Dysphagia, oropharyngeal phase Dyspnea Essential (primary) hypertension Gastro-esophageal reflux disease without esophagitis Muscle weakness (generalized) Need for assistance with personal care Other chronic pain Pain in left shoulder Paroxysmal atrial fibrillation (HCC) Peripheral vascular disease, unspecified (HCC) Presence of cardiac pacemaker Repeated falls Sick sinus syndrome (CMS/HCC) (HCC) Unsteadiness on feet Weakness [2] Past Surgical History: Procedure Laterality Date BYPASS GRAFT 2006 triple bypass. two grafted from left leg, one from right leg. used for coronary artery CARDIAC PACEMAKER PLACEMENT 2013 did another one 2023 CHOLECYSTECTOMY 1992 [3] No family history on file. [4] Allergies Allergen Reactions Regadenoson Anaphylaxis Ciprofloxacin Itching Metronidazole Dizziness Atorvastatin Hives Gluten Meal Other Sulfa Antibiotics Itching Wheat Metoprolol Rash Niacin Rash Penicillins Rash Cosigned by Liza Kevin MD at 11/14/2024 2:45 PM EDT Associated Order(s): IP CONSULT TO CARDIOLOGY [facility] Cardiology /Electrophysiology Consult Note Reason for Consult/Chief Complaint: Abnormal troponin Referring provider: Trace Eric statistical modeler: Beto History of Present Illness: Divya Joseph is a 74 y.o. female with known coronary artery disease remote bypass surgery, sick sinus syndrome, s/p placement of a permanent pacemaker, hypertension, paroxysmal atrial fibrillation COPD anemia LAD who lives in a SNF. Patient was admitted to [facility] with altered mental status. Patient states she does not know why she is here, she woke up in the hospital. She denies chest pain. She had elevated temperatures with a fever as high as 38.3 C. She was found to have urinary tract infection. CTA of her chest is suggestive of possible subsegmental pulmonary emboli. Cardiology was consulted due to elevation in her troponin up to 152 and elevated BNP of 8878. Assessment/Plan HF NYHA Class [] I [] II [] III [] IV []Unable to assess Abnormal troponin: Likely type II NSTEMI in the setting of sepsis and urinary tract infection. Patient's white count is increasing to 18.2. She has no chest pain. EKG showed no acute changes. An echocardiogram has been ordered and is pending. Elevated BNP: The patient has some dyspnea. CTA is suggestive of subsegmental pulmonary emboli. An echocardiogram is pending. Clinically my suspicion that this is heart failure is fairly low. I we will hold off initiating diuretic therapy. Sepsis: Patient had elevated lactate up to 6.1, meanwhile normalized. She is on antibiotic therapy. Atrial fibrillation: Currently in sinus rhythm. She is anticoagulated with warfarin. Admission INR was 2.3. Close follow-up is recommended due to patient's acute illness and use of antibiotics. Pulmonary embolism: In light of therapeutic anticoagulation the suspicion that this is a false positive test is high. Cardiology will continue to follow along. Medications: Scheduled Meds[1] Infusion Medications: Continuous Meds[2] Physical Examination: Vitals: 11/14/24 0618 11/14/24 0703 11/14/24 0740 11/14/24 0802 BP: 154/62 137/55 128/69 BP Location: Patient Position: Pulse: 60 60 67 Resp: 21 (!) 26 23 Temp: TempSrc: SpO2: 100% 100% 100% Weight: 165 lb (74.8 kg) Height: 5' 3 (1.6 m) Intake/Output Summary (Last 24 hours) at 11/14/2024 0859 Last data filed at 11/14/2024 0523 Gross per 24 hour Intake 3961 ml Output 650 ml Net 3311 ml Wt Readings from Last 3 Encounters: 11/14/24 165 lb (74.8 kg) Physical Exam Constitutional: Mild respiratory distress. Well nourished. Well hydrated Psychiatric: A &O x 3. Medical insight fair NMT: Oral mucosa is pink and moist Neck: No JVD. Respiratory: Lungs are clear to percussion auscultation Cardiac exam: Rhythm: Regular; Normal S1 and S2 Murmur: No Other: No rub; no gallop Vasc: Peripheral pulses normal Abdomen: Deferred Extremities: No LE edema Skin: Warm to touch and well perfused Laboratory Tests: TROPONIN I, CONVENTIONAL SENSITIVITY No results found for: CKTOTAL, CKMB, CKMBINDEX, TROPONINI TROPONIN I, HIGH SENSITIVITY Troponin HS Serial Baseline Date Value Ref Range Status 11/13/2024 78 (H) <=14 ng/L Final Comment: In individuals presenting with symptoms > 2h, a baseline troponin <= 5 ng/L suggests acute cardiac injury is unlikely and further serial testing is generally not indicated. 10/28/2024 10 <=14 ng/L Final Comment: In individuals presenting with symptoms > 2h, a baseline troponin <= 5 ng/L suggests acute cardiac injury is unlikely and further serial testing is generally not indicated. 2h Troponin HS (Serial 2nd Troponin) Date Value Ref Range Status 11/13/2024 90 (H) <=14 ng/L Final Comment: Rising or falling troponin delta between 2 - 15 ng/L as compared to baseline value requires a 3rd serial troponin 10/28/2024 12 <=14 ng/L Final Comment: Rising or falling troponin delta below 2 ng/L as compared to baseline value suggests that acute cardiac injury is unlikely. No results found for: TROPDELTBASE 4h Troponin HS (Serial 3rd Troponin) Date Value Ref Range Status 11/13/2024 152 (H) <=14 ng/L Final Comment: 4h troponin (3rd troponin) samples collected between 1h 40 min and 2h and 20 min of the 2h troponin collection time can be utilized to interpret delta troponins as per [employer] algorithms. Samples collected outside this timeframe need to be interpreted clinically. Rising or falling troponin delta greater than 15 ng/L as compared to 2h troponin value is significant for acute cardiac injury. No results found for: TROPDELTSEC Recent Labs 11/13/24 0951 11/13/24 1926 11/14/24 0516 NA 142 142 141 K 3.1* 3.1* 3.7 CL 105 109* 108* CO2 27 21* 27 BUN 9 11 13 CREATININE 0.85 0.79 0.72 EGFR 72.0 78.6 87.9 Recent Labs 11/13/24 0951 11/14/24 0516 WBC 12.7* 18.2* HGB 11.2* 9.8* 8.6* HCT 34.2* 30.6* MCV 84.0 86.0 PLT 184 160 No results found for: HGBA1C No results found for: TSH No results found for: CHOL No results found for: HDL No results found for: LDLCALC No results found for: TRIG No results found for: CHOLHDL No results found for: LDLCHOLESTER Recent Labs 11/13/24 0951 11/14/24 0516 BNP 5,186* 8,878* Recent Labs 11/13/24 1826 11/14/24 0516 INR 2.3* 2.3* Results from last 7 days Lab Units 11/14/24 0516 11/13/24 0951 AST U/L 32 34* ALT U/L 7 11 No results found for: IRON, TIBC, FERRITIN Radiology: CXR: personally reviewed: Cardiac Tests Personally Reviewed: Last EKG 11/13/24 ECG 12-LEAD 11/13/2024 6:29 PM (Final) Impression SINUS RHYTHM ARTIFACT IN LEAD(S) Abnrm T, consider ischemia, anterolateral lds Electronically Signed On 11-13-2024 18:29:46 EDT by Carlos Dsouza Signed by: Carlos Dsouza MD on 11/13/2024 6:29 PM Telemetry findings: Sinus rhythm Reports reviewed: Last Echo No results found for this or any previous visit. Last Cath No results found for this or any previous visit. Last Stress Test No results found for this or any previous visit. Last EP study No results found for this or any previous visit. EF BP Date Value Ref Range Status 11/14/2024 55 55 - 100 % ROSA MARIA SCORE: ROSA MARIA Score Link Angélica Day MD DATE of SERVICE: 11/14/2024 [1] aspirin, 81 mg, Oral, Daily cefTRIAXone, 2,000 mg, IntraVENous, q24h cetirizine, 5 mg, Oral, Daily folic acid, 1 mg, Oral, Daily ipratropium-albuterol, 3 mL, Nebulization, 4x daily [Held by provider] isosorbide mononitrate ER, 30 mg, Oral, Daily [Held by provider] lisinopril, 5 mg, Oral, Daily [Held by provider] metoprolol tartrate, 25 mg, Oral, BID montelukast, 10 mg, Oral, Nightly mupirocin, 1 Application, Nasal, BID pantoprazole, 40 mg, Oral, qAM AC pravastatin, 80 mg, Oral, Nightly sodium chloride 0.9%, 5-40 mL, IntraVENous, 2 times per day trospium, 20 mg, Oral, Daily [2] norepinephrine in sodium chloride 0.9 %, 2-100 mcg/min, Last Rate: Stopped (11/14/24 0620) Associated Order(s): IP CONSULT TO GERIATRICS [facility] Geriatric Medicine Inpatient Consult Service Admission Date: 11/13/2024 Admission Status: INPATIENT Chief Complaint: Chief Complaint Patient presents with Altered Mental Status From [facility]. With AMS. Pt c/o of not feeling well. Pt with abd pain. Axo x 3 pt with temp of 100.3 Reason for Appointment Geriatrics consulted for impaired cognition Assessment & Plan Principal Problem: Transient alteration of awareness Acute Metabolic Encephalopathy --appears resolved --Etiology likely acute illness (sepsis, respiratory failure) --Encourage PO intake, time up in chair, family visits, and sleep hygiene --If agitated, assess for and consider treating for pain --QTc= 473 ms --No antipsychotic unless patient is danger to self/others/treatment --Start PRN melatonin at HS --Monitor for constipation/urinary retention - last BM 11/10 per patient --Possible medication contributions: none -Received Benadryl this morning for itching. Recommend trying to avoid if possible due to risk for confusion, lethargy. --Brother at bedside reports no significant baseline memory concerns --check B12 and TSH Debility --contributing factors include COPD, chronic pain, medications --lives at [facility]. Propels self in w/c at baseline. --History of falls hitting head last week. CT head no acute abnormality. --PT and OT when able --Anticipate return to facility at discharge --Recently started on Methocarbamol at her facility for back pain. Monitor for side effects. Consider low dose Tizanidine as an alternative. Dysphagia --ST following - recommend strict NPO until MBSS completed IBS --takes Dicyclomine 20mg TID at facility --Recommend decreasing/stopping due to risk of anticholinergic side effects. Not currently ordered. Chronic constipation --patient reports normal BM pattern every 10 days. --Continue Miralax as needed Neuropathy --takes Gabapentin 200mg TID at facility --Recommend resuming when appropriate to avoid withdrawal. Can restart at 75% of home dose to prevent withdrawal if dose reduction is desired. OAB --takes Oxybutynin at facility. --Recommend alternative with less anticholinergic side effects. --currently on Trospium I spent total time of 70 minutes face to face with the patient and/or family discussing the diagnosis and importance of compliance with the treatment plan as well as documenting on the day of the visit. In addition, that total time includes the following: -Reviewing previous notes, -Reviewing labs, -Obtaining and/or reviewing separately obtained history, -Ordering prescription medications, tests and procedures, -Communicating results to the patient/family/caregiver, -Counseling/educating the patient/family/caregiver, -Documenting clinical information in the patients electronic record, and -Performing a medically appropriate exam and/or evaluation Subjective: HPI 74 y.o. year-old female with PMH of COPD, CAD s/p CABG, SSS s/p pacemaker, Dysphagia, HTN, GERD, Chronic pain, atrial fibrillation, repeated falls, PVD, anxiety, depression presented to the hospital from [facility] on 11/13/24 with complaints of mental status change and fever. Admitted with sepsis with acute hypoxic respiratory failure, possible UTI. CT chest showed possible right upper lobe PE. Exam limited by motion artifact. Found to have E.Coli bacteremia. Pulmonology, ID, Palliative, Cardiology consulted. Cardiology - likely type II NSTEMI in setting of sepsis and UTI. ECHO pending. Received Benadryl 25mg today 083, Zyrtec 5mg 0833, Morphine 4mg yesterday. Nursing Delirium Screen (Nu-Desc): Nursing Delirium Symptom Checklist Total Score: 0 Conversation with patient: Patient reports she came to the hospital due to not feeling well and being fatigued. She lives at [facility] and has been there about a year. She has been becoming increasingly weaker. She propels herself in wheelchair and is interested in getting an electronic scooter. Sleeps well normally. Mood generally good, can get frustrated at times with the facility. Conversation with caregiver: Brother Rey at bedside. Memory is good at baseline. No concerns. Feels she is doing well and is more engaged at the facility. She gets along with other residents and staff. She does have an issue getting the food that she prefers/tolerates. Advance Care Planning Code Status: Full Code Allergies[1] Current Medications[2] Medical History[3] Surgical History[4] Social History Tobacco Use Smoking status: Former Types: Cigarettes Smokeless tobacco: Never Substance Use Topics Alcohol use: Not Currently Social History Social History Narrative Not on file Family History Family History[5] No family status information on file. Review of Systems Constitutional: Positive for fatigue. Negative for fever. Respiratory: Positive for cough and shortness of breath. Cardiovascular: Negative for chest pain and leg swelling. Gastrointestinal: Negative for abdominal pain, constipation, diarrhea and nausea. Genitourinary: Negative for difficulty urinating. Musculoskeletal: Positive for arthralgias and back pain. Neurological: Positive for weakness. Psychiatric/Behavioral: Negative for confusion, dysphoric mood and sleep disturbance. The patient is not nervous/anxious. Functional Status Prior to Admission: (I: Independent, A: Assisted, D: Dependent) ADLs I A D Notes Bathing [] [x] [] Dressing [] [x] [] Toileting [x] [] [] Transfers [x] [] [] Feeding [x] [] [] Ambulation [] [x] [] Assistive devices: wheelchair IADLs I A D Telephone [x] [] [] Transportation [] [] [x] Shopping [] [] [x] Meal prep [] [] [x] Housework [] [] [x] Medications [] [] [x] Finances [] [] [x] Objective: BP 128/69 Pulse 67 Temp 36.7 C (98.1 F) (Oral) Resp 23 Ht 5' 3 (1.6 m) Wt 165 lb (74.8 kg) SpO2 100% BMI 29.23 kg/m Intake/Output Summary (Last 24 hours) at 11/14/2024 0856 Last data filed at 11/14/2024 0523 Gross per 24 hour Intake 3961 ml Output 650 ml Net 3311 ml Wt Readings from Last 3 Encounters: 11/14/24 165 lb (74.8 kg) Physical Exam Vitals reviewed. Constitutional: General: She is not in acute distress. HENT: Head: Normocephalic and atraumatic. Cardiovascular: Rate and Rhythm: Normal rate and regular rhythm. Pulmonary: Breath sounds: Wheezing present. Abdominal: General: Bowel sounds are normal. There is no distension. Palpations: Abdomen is soft. Tenderness: There is no abdominal tenderness. Musculoskeletal: Right lower leg: No edema. Left lower leg: No edema. Neurological: Mental Status: She is alert and oriented to person, place, and time. Psychiatric: Attention and Perception: Attention normal. Mood and Affect: Mood normal. Behavior: Behavior is cooperative. Comments: Appropriate in conversation Labs and Imaging: Recent Results (from the past 24 hours) ECG 12 lead Collection Time: 11/13/24 9:45 AM Result Value Ref Range Heart Rate 72 bpm QRSD Interval 88 ms QT Interval 431 ms QTC Interval 473 ms P Dawes 0 degrees QRS Dawes 9 degrees T Wave Dawes 95 degrees VA Interval 0 ms CBC auto differential Collection Time: 11/13/24 9:51 AM Result Value Ref Range Auto WBC 12.7 (H) 3.6 - 10.7 10*3/uL RBC 4.07 3.80 - 5.20 10*6/uL Hemoglobin 9.8 (L) 11.7 - 16.0 g/dL Hematocrit 34.2 (L) 35.0 - 47.0 % MCV 84.0 77.0 - 99.0 fL MCH 24.1 (L) 26.0 - 34.0 pg MCHC 28.7 (L) 30.5 - 36.0 % RDW 20.2 (H) 11.5 - 15.0 % Platelets 184 140 - 440 10*3/uL MPV 12.5 9.0 - 12.7 fL Comprehensive metabolic panel Collection Time: 11/13/24 9:51 AM Result Value Ref Range SODIUM 142 136 - 145 mmol/L POTASSIUM 3.1 (L) 3.5 - 5.1 mmol/L CHLORIDE 105 98 - 107 mmol/L CARBON DIOXIDE 27 23 - 31 mmol/L ANION GAP 10 3 - 13 mmol/L UREA NITROGEN 9 9 - 23 mg/dL CREATININE 0.85 0.57 - 1.11 mg/dL GLUCOSE 152 (H) 82 - 115 mg/dL CALCIUM 8.6 (L) 8.8 - 10.0 mg/dL AST (SGOT) 34 (H) <34 U/L ALT 11 <30 U/L ALKALINE PHOSPHATASE 66 40 - 150 U/L ALBUMIN 3.2 (L) 3.4 - 4.8 g/dL BILIRUBIN, TOTAL 0.9 <1.2 mg/dL TOTAL PROTEIN 6.5 6.4 - 8.3 g/dL eGFR 72.0 >60.0 mL/min/1.73m*2 Blood gas, venous (ACH and SBH) Collection Time: 11/13/24 9:51 AM Result Value Ref Range pH, Venous 7.400 7.320 - 7.420 pCO2, Venous 41.1 35.0 - 53.0 mm Hg pO2, Venous 34.3 mm Hg HCO3, Venous 24.9 21.0 - 30.0 mmol/L O2 Sat, Venous 64.8 % Base Excess, Venous 0.1 -3.0 - 3.0 mmol/L Hgb, blood gas 11.2 (L) Screen only g/dl TCO2, Venous 26.1 23.0 - 30.0 mmol/L Source Of Oxygen Nasal Cannula (LPM) Amount Of Oxygen 3l Serial Troponin, High Sensitivity Collection Time: 11/13/24 9:51 AM Result Value Ref Range Troponin HS Serial Baseline 78 (H) <=14 ng/L NT PRO BNP Collection Time: 11/13/24 9:51 AM Result Value Ref Range NT PRO BNP 5,186 (H) <125 pg/mL Man Differential Collection Time: 11/13/24 9:51 AM Result Value Ref Range Adjusted WBC 12.7 (H) 3.6 - 10.7 10*3/uL Neutrophils % 78 38 - 82 % Bands % 13 (H) <=0 % Lymphocytes % 6 (L) 15 - 45 % Monocytes % 3 (L) 5 - 13 % Absolute Neutrophil Count 11.6 (H) 1.8 - 7.0 10*3/uL Segs Absolute 11.6 (H) 1.8 - 7.5 10*3/uL Bands Absolute 1.7 (H) <=0.0 10*3/uL Lymphocytes Absolute 0.8 (L) 1.0 - 4.3 10*3/uL Monocytes Absolute 0.4 0.0 - 0.9 10*3/uL Anisocytosis Moderate (A) (none) Poikilocytes Slight (A) (none) Hypochromia Slight (A) (none) Polychromasia Slight (A) (none) Stomatocytes Rare (A) (none) WBC Morphology Normal Giant PLTs Slight (A) (none) Total Counted 100 Neutrophils Manual 78 Lymphocytes Manual 6 Monocytes Manual 3 Bands Manual 13 Differential Method Manual differential performed Respiratory Pathogens Panel by PCR Collection Time: 11/13/24 9:58 AM Specimen: Nasopharynx; Swab Result Value Ref Range SARS-CoV-2 Not Detected Not Detected Adenovirus Not Detected Not Detected Coronavirus HKU1 Not Detected Not Detected Coronavirus NL63 Not Detected Not Detected Coronavirus 229E Not Detected Not Detected Coronavirus OC43 Not Detected Not Detected Human Metapneumovirus Not Detected Not Detected Human Rhinovirus/Enterovirus Not Detected Not Detected Influenza A Not Detected Not Detected Influenza B Not Detected Not Detected Parainfluenza 1 Not Detected Not Detected Parainfluenza 2 Not Detected Not Detected Parainfluenza 3 Not Detected Not Detected Parainfluenza 4 Not Detected Not Detected Respiratory Syncytial Virus Not Detected Not Detected Bordetella pertussis Not Detected Not Detected Bordetella parapertussis Not Detected Not Detected Chlamydia pneumoniae Not Detected Not Detected Mycoplasma pneumoniae Not Detected Not Detected SARS-CoV-2, Flu A/B, and RSV Combo Collection Time: 11/13/24 9:59 AM Specimen: Nasopharynx; Swab Result Value Ref Range SARS-CoV-2 Not Detected Not Detected Respiratory Syncytial Virus Not Detected Not Detected Influenza A Not Detected Not Detected Influenza B Not Detected Not Detected Troponin, High Sensitivity, Serial, Second Test Collection Time: 11/13/24 10:08 AM Result Value Ref Range 2h Troponin HS (Serial 2nd Troponin) 90 (H) <=14 ng/L Lactic acid with reflex Collection Time: 11/13/24 10:08 AM Result Value Ref Range LACTIC ACID 2.9 (H) 0.5 - 2.2 mmol/L Blood culture Site #1 - Suspected Infection Collection Time: 11/13/24 10:08 AM Specimen: Blood, Venous Result Value Ref Range Blood Culture Gram-negative bacilli (AA) Blood Culture Identification - Anaerobic Collection Time: 11/13/24 10:08 AM Specimen: Blood, Venous Result Value Ref Range Escherichia coli Detected (A) Not Detected Blood culture Site #2 - Suspected Infection Collection Time: 11/13/24 10:09 AM Specimen: Blood, Venous Result Value Ref Range Blood Culture Gram-negative bacilli (AA) Complete Urinalysis with reflex to Culture Collection Time: 11/13/24 10:22 AM Result Value Ref Range Color, Urine Yellow Lt. Yellow Clarity, Urine Turbid (A) Clear pH, Urine 6.5 5.0 - 8.0 pH Leukocytes, Urine 500 (A) Negative Sharon/uL Nitrite, Urine Positive (A) Negative Protein, Urine 20 (A) Negative mg/dL Glucose, Urine Normal Normal (<70) mg/dL Bilirubin, Urine Negative Negative mg/dL Ketones, Urine Negative Negative mg/dL Urobilinogen, Urine Normal Normal (0-1) mg/dL Blood, Urine 0.2 (A) Negative mg/dL RBC, Urine 26-50 (A) 0 - 2 /HPF WBC, Urine >100 (A) 0 - 5 /HPF Squamous Epithelial, Urine Negative 3 - 5 /HPF Bacteria, Urine Moderate (A) Negative /HPF Mucus, Urine Few Negative /LPF WBC Clumps, Urine Few (A) Negative /HPF SPECIFIC GRAVITY OF URINE (NUMERIC) 1.009 1.005 - 1.030 Lactic acid with reflex Collection Time: 11/13/24 12:50 PM Result Value Ref Range LACTIC ACID 3.4 (H) 0.5 - 2.2 mmol/L Troponin, Serial, Third Test Collection Time: 11/13/24 12:50 PM Result Value Ref Range 4h Troponin HS (Serial 3rd Troponin) 152 (H) <=14 ng/L Lactic acid with reflex Collection Time: 11/13/24 5:10 PM Result Value Ref Range LACTIC ACID 4.0 (HH) 0.5 - 2.2 mmol/L Protime-INR Collection Time: 11/13/24 6:26 PM Result Value Ref Range PROTHROMBIN TIME 23.6 (H) 9.0 - 12.0 s INR 2.3 (H) 0.9 - 1.1 Calcium, ionized Collection Time: 11/13/24 7:26 PM Result Value Ref Range Calcium, Ion 3.80 (L) 4.30 - 5.20 mg/dL PH, IONIZED CALCIUM 7.48 (H) 7.31 - 7.46 Magnesium Collection Time: 11/13/24 7:26 PM Result Value Ref Range MAGNESIUM 1.7 1.6 - 2.6 mg/dL Phosphorus Collection Time: 11/13/24 7:26 PM Result Value Ref Range PHOSPHORUS 3.0 2.3 - 4.7 mg/dL Basic metabolic panel Collection Time: 11/13/24 7:26 PM Result Value Ref Range SODIUM 142 136 - 145 mmol/L POTASSIUM 3.1 (L) 3.5 - 5.1 mmol/L CHLORIDE 109 (H) 98 - 107 mmol/L CARBON DIOXIDE 21 (L) 23 - 31 mmol/L UREA NITROGEN 11 9 - 23 mg/dL CREATININE 0.79 0.57 - 1.11 mg/dL GLUCOSE 141 (H) 82 - 115 mg/dL CALCIUM 7.5 (L) 8.8 - 10.0 mg/dL ANION GAP 12 3 - 13 mmol/L eGFR 78.6 >60.0 mL/min/1.73m*2 Lipase Collection Time: 11/13/24 7:26 PM Result Value Ref Range LIPASE 4 <55 U/L Lactic acid with reflex Collection Time: 11/13/24 9:20 PM Result Value Ref Range LACTIC ACID 6.1 (HH) 0.5 - 2.2 mmol/L Lactic acid with reflex Collection Time: 11/14/24 1:15 AM Result Value Ref Range LACTIC ACID 2.9 (H) 0.5 - 2.2 mmol/L CBC auto differential Collection Time: 11/14/24 5:16 AM Result Value Ref Range Auto WBC 18.2 (H) 3.6 - 10.7 10*3/uL RBC 3.56 (L) 3.80 - 5.20 10*6/uL Hemoglobin 8.6 (L) 11.7 - 16.0 g/dL Hematocrit 30.6 (L) 35.0 - 47.0 % MCV 86.0 77.0 - 99.0 fL MCH 24.2 (L) 26.0 - 34.0 pg MCHC 28.1 (L) 30.5 - 36.0 % RDW 20.6 (H) 11.5 - 15.0 % Platelets 160 140 - 440 10*3/uL MPV IPF 10 Protime-INR Collection Time: 11/14/24 5:16 AM Result Value Ref Range PROTHROMBIN TIME 23.5 (H) 9.0 - 12.0 s INR 2.3 (H) 0.9 - 1.1 Magnesium Collection Time: 11/14/24 5:16 AM Result Value Ref Range MAGNESIUM 1.7 1.6 - 2.6 mg/dL Comprehensive metabolic panel Collection Time: 11/14/24 5:16 AM Result Value Ref Range SODIUM 141 136 - 145 mmol/L POTASSIUM 3.7 3.5 - 5.1 mmol/L CHLORIDE 108 (H) 98 - 107 mmol/L CARBON DIOXIDE 27 23 - 31 mmol/L ANION GAP 6 3 - 13 mmol/L UREA NITROGEN 13 9 - 23 mg/dL CREATININE 0.72 0.57 - 1.11 mg/dL GLUCOSE 108 82 - 115 mg/dL CALCIUM 8.7 (L) 8.8 - 10.0 mg/dL AST (SGOT) 32 <34 U/L ALT 7 <30 U/L ALKALINE PHOSPHATASE 54 40 - 150 U/L ALBUMIN 2.5 (L) 3.4 - 4.8 g/dL BILIRUBIN, TOTAL 0.6 <1.2 mg/dL TOTAL PROTEIN 5.3 (L) 6.4 - 8.3 g/dL eGFR 87.9 >60.0 mL/min/1.73m*2 Phosphorus Collection Time: 11/14/24 5:16 AM Result Value Ref Range PHOSPHORUS 2.5 2.3 - 4.7 mg/dL Lactic acid with reflex Collection Time: 11/14/24 5:16 AM Result Value Ref Range LACTIC ACID 1.4 0.5 - 2.2 mmol/L NT PRO BNP Collection Time: 11/14/24 5:16 AM Result Value Ref Range NT PRO BNP 8,878 (H) <125 pg/mL MANUAL DIFFERENTIAL (CELLAVISION) Collection Time: 11/14/24 5:16 AM Result Value Ref Range RBC Morphology abnormal Anisocytosis Slight (A) (none) Poikilocytes Slight (A) (none) Hypochromia Slight (A) (none) Stomatocytes Slight (A) (none) Giant PLTs Slight (A) (none) Neutrophils % 79 38 - 82 % Bands % 6 (H) <=0 % Lymphocytes % 12 (L) 15 - 45 % Monocytes % 3 (L) 5 - 13 % Absolute Neutrophil Count 15.5 (H) 1.8 - 7.5 10*3/uL Bands Absolute 1.1 (H) <=0.0 10*3/uL Lymphocytes Absolute 2.2 1.0 - 4.3 10*3/uL Monocytes Absolute 0.5 0.0 - 0.9 10*3/uL Neutrophils Manual 79 Lymphocytes Manual 12 Monocytes Manual 3 Eosinophils Manual Basophils Manual Bands Manual 6 Metamyelocytes Manual Myelocytes Manual Promyelocytes Manual Blasts Manual Atypical Lymphocytes Manual Unclassified Cells, Manual Transthoracic echocardiogram (TTE) complete with contrast, bubble, strain, and 3D PRN Collection Time: 11/14/24 8:33 AM Result Value Ref Range IVSd 0.7 0.6 - 0.9 cm LVIDd 4.3 3.9 - 5.3 cm LVIDs 2.7 cm LVOT Diameter 1.8 cm LVPWd 0.5 (A) 0.6 - 0.9 cm Global Longitudinal Strain -18.9 % Global Longitudinal Strain -19.3 % Global Longitudinal Strain -21.2 % Global Longitudinal Strain -19.8 % EF BP 55 55 - 100 % LV Ejection Fraction A2C 50 % LV Ejection Fraction A4C 59 % LV EDV A2C 83 mL LV EDV A4C 76 mL LV EDV BP 81 56 - 104 mL LV ESV A2C 41 mL LV ESV A4C 31 mL LV ESV BP 36 19 - 49 mL LVOT Cardiac Output 4.3 liter/minute LVOT Peak Gradient 6 mmHg LVOT Mean Gradient 3 mmHg LVOT SV 70.7 ml LVOT Peak Velocity 1.2 m/s LVOT VTI 27.8 cm LV IVRT 70.4 ms RV Longitudinal Dimension 7.5 cm RV Mid Dimension 3.3 cm RV Basal Dimension 4.3 cm RV Free Wall Peak S' 9 cm/s LA Diameter 4.9 cm LA Volume A/L 69 mL LA Volume 2C 76 (A) 22 - 52 mL LA Volume 4C 53 (A) 22 - 52 mL LA Volume BP 66 (A) 22 - 52 mL RA Area 4C 48.1 mL RA Area 4C 46.3 mL AV Area by Peak Velocity 1.6 cm2 AV Area by VTI 1.5 cm2 AV Peak Gradient 15 mmHg AV Mean Gradient 8 mmHg AV Peak Velocity 2.0 m/s AV Mean Velocity 1.4 m/s AV VTI 47.4 cm MV A Velocity 0.62 m/s MV E Wave Deceleration Time 157.0 ms MV E Velocity 1.15 m/s LV E' Lateral Velocity 9 cm/s LV E' Septal Velocity 7 cm/s Pulmonary Artery EDP 30 mmHg Pulmonary Artery EDP 8 mmHg TR Peak Gradient 41 mmHg TR Max Velocity 3.21 m/s Ascending Aorta 3.3 cm IVC Diameter 2.0 cm Fractional Shortening 2D 37 28 - 44 % LV ESV Index BP 20 mL/m2 LV EDV Index BP 46 mL/m2 LV ESV Index A4C 17 mL/m2 LV EDV Index A4C 43 mL/m2 LV ESV Index A2C 23 mL/m2 LV EDV Index A2C 47 mL/m2 LVIDd Index 2.42 cm/m2 LVIDs Index 1.52 cm/m2 LV RWT Ratio 0.23 LV Mass 2D 72.9 67 - 162 g LV Mass 2D Index 40.9 (A) 43 - 95 g/m2 MV E/A 1.85 E/E' Ratio (Averaged) 14.60 E/E' Lateral 12.78 E/E' Septal 16.43 LA Volume Index BP 37 (A) 16 - 34 ml/m2 LA Volume Index A/L 39 16 - 34 mL/m2 LVOT Stroke Volume Index 39.7 mL/m2 LVOT Area 2.5 cm2 LA Volume Index 2C 43 (A) 16 - 34 mL/m2 LA Volume Index 4C 30 16 - 34 mL/m2 LA Size Index 2.75 cm/m2 Ascending Aorta Index 1.85 cm/m2 AV Velocity Ratio 0.60 LVOT:AV VTI Index 0.59 MINDY/BSA VTI 0.8 cm2/m2 MINDY/BSA Peak Velocity 0.9 cm2/m2 Aortic Sinus Valsalva 3.0 cm Aortic Sinus Valsalva Index 1.69 cm/m2 Sinotubular Junction 2.4 cm Est. RA Pressure 3 mmHg RVSP 44 mmHg No results found for: TSH No components found for: B12 No results found for: VITD25 Reviewed: active problem list, medication list, allergies, social history, notes from last encounter, notes from last several encounters, lab results, imaging Follow-up: will follow with you LEONCIO Crespo CNP 11/14/24 8:56 AM [1] Allergies Allergen Reactions Regadenoson Anaphylaxis Ciprofloxacin Itching Metronidazole Dizziness Atorvastatin Hives Gluten Meal Other Sulfa Antibiotics Itching Wheat Metoprolol Rash Niacin Rash Penicillins Rash [2] Current Facility-Administered Medications: acetaminophen (Tylenol) tablet 650 mg, 650 mg, Oral, q6h PRN, LEONCIO Naqvi CNP, 650 mg at 11/13/242348 aspirin chewable tablet 81 mg, 81 mg, Oral, Daily, LEONCIO Naqvi CNP, 81 mg at 11/14/24832 cefTRIAXone (Rocephin) 2,000 mg in sodium chloride 0.9 % 50 mL IVPB Mini-Bag Plus, 2,000 mg, IntraVENous, q24h, LEONCIO Naqvi CNP cetirizine (ZyrTEC) tablet 5 mg, 5 mg, Oral, Daily, LEONCIO Naqvi CNP, 5 mg at 11/14/24832 folic acid (Folvite) tablet 1 mg, 1 mg, Oral, Daily, LEONCIO Naqvi CNP, 1 mg at 11/14/24832 ipratropium-albuterol (Duo-Neb) 0.5-2.5 mg/3 mL nebulizer solution 3 mL, 3 mL, Nebulization, 4x daily, LEONCIO Naqvi CNP, 3 mL at 11/13/241946 [Held by provider] isosorbide mononitrate ER (Imdur) 24 hr tablet 30 mg, 30 mg, Oral, Daily, Jovanny P Schnick, SNAPPER ON - [employer] ADMINISTRATOR [Held by provider] lisinopril tablet 5 mg, 5 mg, Oral, Daily, Jovanny P Schnick, SNAPPER ON - [employer] DAT[employer] ADMINISTRATOR methocarbamol (Robaxin) tablet 500 mg, 500 mg, Oral, q8h PRN, Jovanny P Schnick, SNAPPER ON - [employer] DAT[employer] ADMINISTRATOR [Held by provider] metoprolol tartrate (Lopressor) tablet 25 mg, 25 mg, Oral, BID, Jovanny P Schnick, SNAPPER ON - ORACLE DATABASE ADMINISTRATOR montelukast (Singulair) tablet 10 mg, 10 mg, Oral, Nightly, Jovanny P Schnick, SNAPPER ON - ORACLE DATABASE ADMINISTRATOR, 10 mg at 11/13/242120 mupirocin (Bactroban) 2 % ointment 1 Application, 1 Application, Nasal, BID, Jovanny P Schnick, SNAPPER ON - ORACLE DATABASE ADMINISTRATOR, 1 Application at 11/14/24 0833 nitroglycerin (Nitrostat) SL tablet 0.4 mg, 0.4 mg, SubLINGual, q5 min PRN, Jovanny P Schnick, SNAPPER ON - ORACLE DATABASE ADMINISTRATOR norepinephrine (Levophed) 4 mg in 0.9% sodium chloride 250 mL infusion ([id number]) (premix), 2-100 mcg/min, IntraVENous, Continuous, Jovanny P Schnick, SNAPPER ON - ORACLE DATABASE ADMINISTRATOR, Stopped at 11/14/24 0620 ondansetron ODT (Zofran-ODT) disintegrating tablet 4 mg, 4 mg, Oral, q8h PRN OR ondansetron (Zofran) injection 4 mg, 4 mg, IntraVENous, q6h PRN, Jovanny P Schnick, SNAPPER ON - ORACLE DATABASE ADMINISTRATOR, 4 mg at 11/13/24 182 pantoprazole (ProtoNix) EC tablet 40 mg, 40 mg, Oral, qAM AC, Jovanny P Schnick, SNAPPER ON - ORACLE DATABASE ADMINISTRATOR, 40 mg at 11/14/24 0512 polyethylene glycol (PEG) 3350 (Miralax) packet 17 g, 17 g, Oral, Daily PRN, Jovanny P Schnick, SNAPPER ON - ORACLE DATABASE ADMINISTRATOR pravastatin (Pravachol) tablet 80 mg, 80 mg, Oral, Nightly, Jovanny P Schnick, SNAPPER ON - ORACLE DATABASE ADMINISTRATOR, 80 mg at 09/09/25 2121 sodium chloride 0.9 % infusion, 5-250 mL/hr, IntraVENous, PRN, Jovanny P Ekaterina, SNAPPER ON - ORACLE DATABASE ADMINISTRATOR sodium chloride 0.9% (NS) flush 5-40 mL, 5-40 mL, IntraVENous, 2 times per day, Jovanny P Schnick, SNAPPER ON - ORACLE DATABASE ADMINISTRATOR, 10 mL at 11/14/24 0834 sodium chloride 0.9% (NS) flush 5-40 mL, 5-40 mL, IntraVENous, PRN, Jovanny P Schnick, SNAPPER ON - ORACLE DATABASE ADMINISTRATOR trospium (Sanctura) tablet 20 mg, 20 mg, Oral, Daily, Jovanny P Schnick, SNAPPER ON - ORACLE DATABASE ADMINISTRATOR, 20 mg at 11/14/24 0833 [3] Past Medical History: Diagnosis Date Altered mental status, unspecified Ataxia Atherosclerotic heart disease Bradycardia, unspecified Cognitive communication deficit COPD (chronic obstructive pulmonary disease) (HCC) i was told i had COPD, then I was told i wasn't, i don't know for sure Difficulty walking Dysphagia, oropharyngeal phase Dyspnea Essential (primary) hypertension Gastro-esophageal reflux disease without esophagitis Muscle weakness (generalized) Need for assistance with personal care Other chronic pain Pain in left shoulder Paroxysmal atrial fibrillation (HCC) Peripheral vascular disease, unspecified (HCC) Presence of cardiac pacemaker Repeated falls Sick sinus syndrome (CMS/HCC) (HCC) Unsteadiness on feet Weakness [4] Past Surgical History: Procedure Laterality Date BYPASS GRAFT 2006 triple bypass. two grafted from left leg, one from right leg. used for coronary artery CARDIAC PACEMAKER PLACEMENT 2013 did another one 2023 CHOLECYSTECTOMY 1992 [5] No family history on file. Internal Medicine: ICU Initial Consult Divya Joseph : 1950(74 y.o.) Date: November 13, 2024 Attending: Dr. Clark Subjective: Chief Complaint: Fever, abd pain HPI: This is a 74 y.o F with a PMH of CAD s/p CABG, HTN, A-fib, SSS s/p PPM, PVD, COPD, Anemia, Dysphagia, Debility, who presents to the ED today from SNF with altered mental status. Patient is not sure why she is at the hospital, states I just woke up here. Per notes patient reportedly febrile, abd pain and altered mental status. Patient reports that she has had lower abd pain, along with right rib pain, increased urgency and difficulty urinating. Patient also endorses LE swelling, chills, fatigue and shortness of breath, n/v. Patient was hypertensive in the ED. WBC 12.7, 13% bands, LA 2.6, UA grossly positive, CT A/P did show right side mild hydroureter but no obstructing stone. CTA chest also showed RUL segmetal PE. Troponin elevated. No RV strain. CX's obtained, given 2L IVF, started on CTX and admitted to the hospitalist service. This evening patient with rising lactate up to 4.0 with decreasing BP (SBP 100) and ICU consulted. Medical History[1] Surgical History[2] Family History[3] Social History Socioeconomic History Marital status: Spouse name: Not on file Number of children: Not on file Years of education: Not on file Highest education level: Not on file Occupational History Not on file Tobacco Use Smoking status: Former Types: Cigarettes Smokeless tobacco: Never Substance and Sexual Activity Alcohol use: Not Currently Drug use: Never Sexual activity: Not on file Other Topics Concern Not on file Social History Narrative Not on file Social Drivers of Health Financial Resource Strain: Not on file Food Insecurity: Not on file Transportation Needs: Not on file Physical Activity: Not on file Stress: Not on file Social Connections: Not on file Intimate Partner Violence: Not on file Housing Stability: Not on file Allergies[4] Prior to Admission medications Medication Sig Start Date End Date Taking? Authorizing Provider acetaminophen (Tylenol) 325 MG tablet 650 mg. 06/08/24 Historical ProviderMD aspirin 81 MG chewable tablet 06/07/24 Historical Provider, benzonatate (Tessalon) 100 MG capsule TAKE 1 CAPSULE BY MOUTH EVERY MORNING AND 2 IN THE EVENING *EMERGENCY REFILL* 08/26/23 Historical ProviderMD dicyclomine (Bentyl) 20 MG tablet 20 mg. 11/18/23 Historical Provider, ferrous sulfate 325 (65 Fe) MG EC tablet Take 325 mg by mouth 3 times daily (with meals). Do not crush, chew, or split. Historical Provider, folic acid (Folvite) 1 MG tablet 1 mg. 06/07/24 Historical Provider, gabapentin (Neurontin) 100 MG capsule 200 mg. 06/08/24 Historical Provider, hydrocortisone 1 % cream 04/26/24 Historical Provider, isosorbide mononitrate ER (Imdur) 30 MG 24 hr tablet 30 mg. 10/04/23 Historical Provider, Ketoconazole 1 % shampoo Apply topically. 12/09/23 Historical Provider, lisinopril 5 MG tablet 06/08/24 Historical Provider, loperamide (Imodium A-D) 2 MG tablet 2 mg. 06/08/24 Historical Provider, loratadine (Claritin) 10 MG tablet 10 mg. 06/07/24 Historical Provider, methocarbamol (Robaxin) 500 MG tablet Take 500 mg by mouth. Historical Provider, metoprolol tartrate (Lopressor) 25 MG tablet TAKE 1/2 TABLET BY MOUTH TWO TIMES A DAY 11/25/23 Historical Provider, montelukast (Singulair) 10 MG tablet 10 mg. 11/25/23 Historical Provider, nitroglycerin (Nitrostat) 0.4 MG SL tablet 0.4 mg. 06/08/24 Historical Provider, ondansetron (Zofran) 4 MG tablet Take by mouth. Historical Provider, oxybutynin XL (Ditropan-XL) 5 MG 24 hr tablet 07/09/24 Historical Provider, pantoprazole (ProtoNix) 40 MG EC tablet 40 mg. 07/27/23 Historical Provider, pravastatin (Pravachol) 80 MG tablet 80 mg. 11/25/23 Historical Provider, warfarin (Coumadin) 2 MG tablet 06/30/24 Historical Provider, warfarin (Coumadin) 2.5 MG tablet 06/30/24 Historical Provider, Objective: Oxygen Delivery - O2 Flow Rate (L/min): 3 L/min VITALS: BP (!) 82/52 Pulse 75 Temp 37.6 C (99.6 F) (Oral) Resp 24 SpO2 96% CURRENT PULSE OXIMETRY: SpO2: 96 % Review of Systems Constitutional: Positive for activity change, appetite change, chills and fatigue. Negative for diaphoresis, fever and unexpected weight change. HENT: Positive for rhinorrhea. Negative for congestion and sore throat. Eyes: Negative for visual disturbance. Respiratory: Positive for shortness of breath. Negative for cough. Cardiovascular: Positive for chest pain (right lower chest pain yesterday radiating to back) and leg swelling. Negative for palpitations. Gastrointestinal: Positive for abdominal pain (lower abd), nausea and vomiting. Negative for blood in stool, constipation and diarrhea. Genitourinary: Positive for urgency. Negative for dysuria, flank pain, frequency and hematuria. Musculoskeletal: Negative for back pain and neck pain. Skin: Negative for rash and wound. Allergic/Immunologic: Negative for environmental allergies and food allergies. Neurological: Negative for dizziness, syncope, weakness and headaches. Hematological: Bruises/bleeds easily. Psychiatric/Behavioral: Negative for dysphoric mood. The patient is not nervous/anxious. Physical Exam Vitals and nursing note reviewed. Constitutional: General: She is awake. She is not in acute distress. Appearance: She is well-developed. She is not toxic-appearing or diaphoretic. HENT: Head: Normocephalic and atraumatic. Right Ear: External ear normal. Left Ear: External ear normal. Nose: Nose normal. Mouth/Throat: Mouth: Mucous membranes are dry. Pharynx: Oropharynx is clear. Comments: Edentulous Eyes: Extraocular Movements: Extraocular movements intact. Conjunctiva/sclera: Conjunctivae normal. Pupils: Pupils are equal, round, and reactive to light. Neck: Vascular: No JVD. Trachea: No tracheal deviation. Cardiovascular: Rate and Rhythm: Normal rate and regular rhythm. Pulses: Normal pulses. Heart sounds: Normal heart sounds. Pulmonary: Effort: Tachypnea present. No accessory muscle usage or respiratory distress. Breath sounds: Normal breath sounds. Abdominal: General: There is no distension or abdominal bruit. Palpations: Abdomen is soft. Tenderness: There is abdominal tenderness in the right lower quadrant and left lower quadrant. There is no guarding or rebound. Hernia: No hernia is present. Musculoskeletal: General: Tenderness (left calf) present. Right lower leg: Edema present. Left lower leg: Edema present. Comments: Left greater then right LE edema Skin: General: Skin is warm and dry. Capillary Refill: Capillary refill takes less than 2 seconds. Coloration: Skin is not cyanotic. Nails: There is no clubbing. Comments: Skin hot Neurological: General: No focal deficit present. Mental Status: She is alert and oriented to person, place, and time. GCS: GCS eye subscore is 4. GCS verbal subscore is 5. GCS motor subscore is 6. Sensory: Sensation is intact. Motor: Motor function is intact. Psychiatric: Mood and Affect: Mood normal. Behavior: Behavior normal. Behavior is cooperative. Select Labs within last 24 hours- BMP: Recent Labs 11/13/2451 NA 142 K 3.1* CL 105 CO2 27 BUN 9 CREATININE 0.85 CALCIUM 8.6* LFTS: Recent Labs 11/13/2451 AST 34* ALT 11 PROT 6.5 BILITOT 0.9 ALKPHOS 66 Glucose: Recent Labs 11/13/2451 GLUCOSE 152* Procal: No results for input(s): PROCAL in the last 72 hours. CBC: Recent Labs 11/13/2451 WBC 12.7* HGB 11.2* 9.8* HCT 34.2* PLT 184 MCV 84.0 RDW 20.2* ABGs: No results for input(s): PHART, TNN2WLY, PO2ART, GHO8VXY, N8MAWYCI, FIO2A in the last 72 hours. Lactic Acid: No lab exists for component: LACTA INR: Recent Labs 11/13/24 1826 INR 2.3* Cardiac Injury Profile: No results for input(s): CKTOTAL, CKMB, TROPONINI in the last 72 hours. Labs in Last 3 months: Lab Results Component Value Date INR 2.3 (H) 11/13/2024 Microbiology- Blood Cx: No components found for: BC Urine Cx: No components found for: LABURIN Sputum Cx: No components found for: RESPCULTURE Gram Stain: No results found for: LABGRAM PNA PCR: No components found for: PNPCRPNL COVID19: No results found for: COVID19 Legionella Ag: No components found for: LEGIONELLAANTIGEN Strep Ag: No lab exists for component: STREPNEUMAGU Imaging- 11/13 CXR HISTORY: Altered mental status Frontal view the chest with comparison study from 10/28/2024 shows slight hypoinflation with pulmonary vascular prominence. Prior chest surgery with median sternotomy wires and dual-lead pacemaker with surgical clips left neck 11/13 CT Head IMPRESSION: No CT evidence of an acute intracranial abnormality. 11/13 CTA Chest IMPRESSION: Examination is limited due to motion artifact. There is decreased attenuation involving multiple segmental and subsegmental pulmonary artery supplying the right upper lobe which could represent pulmonary emboli, however evaluation is limited due to the motion artifact. The RV/LV ratio is less than one.. 11/13 CT A/P IMPRESSION: 1. Small bilateral pleural effusions, left greater than right. 2. Mild right-sided hydroureter. SEP-1 CORE MEASURE DATA SIRS Criteria Sepsis Criteria Severe Sepsis Criteria Septic Shock Criteria Must meet 2: [] Temperature > 100.4 F (38 C) or < 96.8 F (36 C) [] HR > 90 [x] RR > 20 [x] WBC > 12 or < 4 or 10% bands Must be confirmed or suspected to move forward with diagnosis of sepsis. Must select at least one: [x] Bacterial Infection Confirmed or Suspected. [] Viral Infection Confirmed or Suspected. [] Fungal Infection Confirmed or Suspected. [] No infection present. Patient does not meet criteria for Sepsis. Must meet 1: [x] Lactate > 2 or [x] Signs of Organ Dysfunction: - SBP < 90 or MAP < 65 - Altered mental status - Creatinine > 2 or increased from baseline - Urine Output < 0.5 ml/kg/hr - Bilirubin > 2 - INR > 1.5 - Platelets < 100,000 - Acute Respiratory Failure as evidenced by new need for NIPPV or mechanical ventilation [] No criteria met for Severe Sepsis. Must meet 1: [x] Lactate = or > 4 or [x] SBP < 90 or MAP < 65 for at least two readings in the first hour after fluid bolus administration [] No criteria met for Septic Shock. Patient Vitals from 11/13/24 2301 to 11/14/24 0000 BP Temp Temp src Pulse Resp SpO2 11/13/24 2309 (!) 114/47 -- -- 63 18 100 % 11/13/24 2350 114/100 36.7 C (98.1 F) Oral 64 22 100 % Recent Labs 11/13/24 0951 11/13/24 1008 11/13/24 1710 11/13/24 1826 11/13/24 1926 11/13/24 2120 11/14/24 0115 WBC 12.7* -- -- -- -- -- -- LACTATE -- < > 4.0* -- -- 6.1* 2.9* CREATININE 0.85 -- -- -- 0.79 -- -- BILITOT 0.9 -- -- -- -- -- -- INR -- -- -- 2.3* -- -- -- PLT 184 -- -- -- -- -- -- < > = values in this interval not displayed. Sepsis Identified at 0951 hours. Fluid Resuscitation Rational: at least 30mL/kg based on ideal body weight due to obesity defined as BMI >30 (patient's BMI is Body mass index is 29.37 kg/m .and IBW is [place] body weight: 52.4 kg (115 lb 8.3 oz) Adjusted ideal body weight: 61.5 kg (135 lb 10 oz)) Infection Source: Urinary System Reassessment Exam: SEPSIS REASSESSMENT I re-examined the patient at the following date and time: 1854 Vital Signs: Most updated vital signs reassessed. 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 Coli Bacteremia Acute metabolic encephalopathy Lactic acidosis Elevated troponin RUL PE CAD s/p CABG/HTN/A-fib/SSS s/p PPM/PVD COPD Anemia Dysphagia Debility Hypokalemia Hypocalcemia Goals of care Plan Worsening hypotension, LA. CXT increased to [address] chest with no obvious infiltrate, given likely urinary source will continue. BC did returned with E. Coli 2/2 sets. Consult ID Mentation improved. Trend lactate. BP low on exam, gave an additional 500 ml fluid bolus. If remains hypotensive will start peripheral NE. No chest pain. EKG with T wave inversion in V1/2. Check Echo, cardiology consulted. Patient already on Warfarin, continue for now, pharmacy to dose. No central clot or RV strain, hypotension likely not related to PE. LE swelling L>R with some calf tenderness, check LE US. Hold home antihypertensives, restart remainder of PO meds. Hgb improved from ED visit in October. Transfuse if Hgb <7.0 No sx of exacerbation. Duoneb, singular, Zyrtec. Will have speech see patient in AM. Patient resides at [facility] d/t multiple falls. Had fall last week, CT negative at OSH ([facility]). PT/OT Replete lytes Full code, consult palliative care. GI Prophylaxis: pantoprazole 40mg daily DVT Prophylaxis: SCDs and full anticoagulation Coumadin BMI Classification: There is no height or weight on file to calculate BMI. overweight BMI 25-29.9 Disposition: admit to ICU Plan of care discuss with Dr. Clark Critical care time spent excluding separately billable procedures is 45 minutes. [1] Past Medical History: Diagnosis Date Altered mental status, unspecified Ataxia Atherosclerotic heart disease Bradycardia, unspecified Cognitive communication deficit COPD (chronic obstructive pulmonary disease) (HCC) i was told i had COPD, then I was told i wasn't, i don't know for sure Difficulty walking Dysphagia, oropharyngeal phase Dyspnea Essential (primary) hypertension Gastro-esophageal reflux disease without esophagitis Muscle weakness (generalized) Need for assistance with personal care Other chronic pain Pain in left shoulder Paroxysmal atrial fibrillation (HCC) Peripheral vascular disease, unspecified (HCC) Presence of cardiac pacemaker Repeated falls Sick sinus syndrome (CMS/HCC) (HCC) Unsteadiness on feet Weakness [2] Past Surgical History: Procedure Laterality Date BYPASS GRAFT 2006 triple bypass. two grafted from left leg, one from right leg. used for coronary artery CARDIAC PACEMAKER PLACEMENT 2013 did another one 2023 CHOLECYSTECTOMY 1992 [3] No family history on file. [4] Allergies Allergen Reactions Regadenoson Anaphylaxis Ciprofloxacin Itching Metronidazole Dizziness Atorvastatin Hives Gluten Meal Other Sulfa Antibiotics Itching Wheat Metoprolol Rash Niacin Rash Penicillins Rash Cosigned by Wong Clark MD at 11/14/2024 4:30 AM EDT documented in this encounter [facility] 11-14-2024 Note Return referral plac ed to [facility] via [facility] per TCC request. Await review and response regarding ability to accept. TCC notified. [facility] 09-10-2025 Note Care Management Prog ress Note Short Medical why still here: in ICU for UTI/ sepsis. On IV antibiotics. Levophed. Oxygen at 3L/NC. Consults with cardiology, geriatrics, palliative care, pulmonology, and ID. Planned Discharge Disposition: Long Term Facility (from [facility]) Barriers/Today we still Wait: Administering IV medications, Clinical stability, Symptomatic control, Public Works Director recommendations (comment) Length of Stay (Days): 1 GMLOS: No GMLOS Documented biodiesel product development manager to follow for discharge planning. [facility] 11-14-2024 Note ICU Progress Note Name: Divya Joseph : 1950(74 y.o.) Date: 11/14/24 Team: MICU Attending: Dede Subjective: Hospital Summary: 74 year old female with a PMH of CAD s/p CABG, HTN, A-fib, SSS s/p PPM, PVD, COPD, Anemia, Dysphagia, Debility, who presents to the ED today from SNF with altered mental status. Patient complained of abdominal pain and difficulty urinating. Initially admitted to [facility] for infectious work up and empiric antibiotics. However became hypotensive requiring vasopressor support and transfer to ICU. Interval Events: Ms Joseph seen and evaluated at bedside. Resting comfortably in bed. Off vasopressor support this morning. Alert and interactive. Mildly confused. Scheduled Meds:Scheduled Meds[1] Continuous Infusions:Continuous Meds[2] Objective: Last Vitals: BP MAP 122/50 (11/14/24602) 71 (11/14/24602) Arterial BP MAP Temp 36.7 ?C (98.1 ?F) (11/14/24401) Pulse 60 (11/14/24602) Resp 21 (11/14/24602) SpO2 98 % (11/14/24602) Weight 75.2 kg (165 lb 12.6 oz) (11/13/241923) BMI Body mass index is 29.37 kg/m?. I/O: 11/13 0700 - 11/14 658 In: 3961 [I.V.:2961] Out: 650 [Urine:650] Ventilator: Oxygen Delivery: O2 Flow Rate (L/min): 3 L/min Invasive Lines / Tubes / Drains: Peripheral IV 11/13/24 Right Antecubital (Active) Number of days: 0 Peripheral IV 11/13/24 Anterior;Distal;Right Forearm (Active) Number of days: 0 External Urinary Catheter (Active) Number of days: 0 Central Line Indication: NA - patient does not have a central line Rojo Indications: NA - patient does not have a Rojo catheter Restraints: NA - patient is not restrained. Wounds: Constitutional: General Appearance [x]WDWN []Obese []Cachectic []Thin []Ill Eyes: Inspection of Pupils/Irises Pupils round and react: [x]Yes []No Sclera: []Icteric [x]Non-Icteric Inspection of Conjunctiva/Lids Conjunctiva: []Injected [x]Non-Injected Lids: [x]Intact []Lesion Present ENT/Mouth: External Inspection of ears/nose [x] Normal [] Scar/Lesion/Mass Inspection of teeth/lips/gums Dentition: [][place] Teeth []Dentures Lips/Gums: [x]Intact []Lesion Present Mucosa: [x][place] []Moist []Dry Neck: External Appearance Overall Appearance: [x]Normal []Lesion/Mass/Crepitus Present Trachea midline: [x]Yes []No Thyroid []Normal []Enlarged []Tender []Mass []Absent Respiratory: Respiratory effort []Labored [x]Non-Labored [] Mechanically-Ventilated Auscultation [x]Clear []Crackles []Wheezes []Rhonchi Cardiovascular: Auscultation Rate: [x]Regular []Irregular []Tachycardia []Bradycardia Rhythm: [x]Regular []Irregular Murmur: []Present [x]Absent Extremities Peripheral Edema: []Present [x]Absent Varicosities: []Present [x]Absent Gastrointestinal: Abdomen Palpation: [x]Soft []Firm []Tender [x]Non-Tender []Distended [x]Non-distended Mass: []Present []Absent Bowel Sounds: [x]Present []Absent Hernia: []Present []Absent Liver/Spleen: []Hepatosplenomegaly []Organomegaly Absent Musculoskeletal: Inspection of Digits and Nails Cyanosis: []Present [x]Absent Clubbing: []Present [x]Absent Ischemia: []Present [x]Absent Infection: []Present [x]Absent Extremities TRIVEDI Equally: Except ([]RUE []RLE []LUE []LLE) Strength/Tone: Intact and Normal ([]RUE []RLE []LUE []LLE) Skin: Inspection [x]Normal []Rash []Lesion []Ulcer Palpation [x]Warm []Cool [x]Dry []Clammy []Nodules []Induration []Skin-tightening Cap-Refill: [] <3 sec [] >3 seconds (delayed) Neurologic: GCS EYE: 4 - Opens spontaneously GCS MOTOR: 6 - Obeys commands for movement GCS VERBAL: 5 - Oriented to person, place, time Total GCS: 15 [] Sensation grossly intact Psych: Mental Status Alert: [x]Yes [] No Oriented: []x0 []X1 []X2 []x3 Mood/Affect [x]Normal []Flat []Agitated []Depressed []Anxious []Calm []Sedated [x]NAD Select Labs within last 24 hours- BMP: Recent Labs 11/13/2495011/13/24192511/14/24 0516 NA 142 142 141 K 3.1* 3.1* 3.7 CL 105 109* 108* CO2 27 21* 27 BUN 9 11 13 CREATININE 0.85 0.79 0.72 CALCIUM 8.6* 7.5* 8.7* MG -- 1.7 1.7 PHOS -- 3.0 2.5 LFTs: Recent Labs 11/13/2495011/13/24 1022 11/13/24192511/14/24 0516 AST 34* -- -- 32 ALT 11 -- -- 7 PROT 6.5 -- -- 5.3* ALBUMIN 3.2* -- -- 2.5* BILITOT 0.9 -- -- 0.6 BILIRUBINU -- Negative -- -- ALKPHOS 66 -- -- 54 LIPASE -- -- 4 -- Glucose: Recent Labs 11/13/2495011/13/24192511/14/24 0516 GLUCOSE 152* 141* 108 Procal: No results for input(s): PROCAL in the last 72 hours. CBC: Recent Labs 11/13/24 0951 11/14/24 0516 WBC 12.7* 18.2* HGB 11.2* 9.8* 8.6* HCT 34.2* 30.6* PLT 184 160 MCV 84.0 86.0 RDW 20.2* 20.6* ABGs: Recent Labs 11/13/24 0951 [id number] Nasal Cannula (LPM) Lactic Acid: Recent Labs 11/13/24 2120 11/14/24 0115 11/14/24 0516 LACTATE 6.1* 2.9* 1.4 INR: Recent (more content not included)... [facility] 11-13-2024 Note Family Communication Number Called: [phone] Name of Designated Family Hand Bobbin Cleaner: Rey Fagan Relationship: brother Phone Call Outcome: I spoke with the individual listed above. Family Hand Bobbin Cleaner Updated on the Following: Updated on admission for sepsis and UTI, now with hypotension requiring transfer to ICU for vasopressors. [facility] 11-13-2024 Note Attending History an d Physical Admit Date: 11/13/2024 PCP: Rosanne Waddell DO CHIEF COMPLAINT: Having pain all over Reason for Admission: Severe sepsis, possible UTI and dehydration History Obtained From: Patient and the ED physician HISTORY OF PRESENT ILLNESS: Patient is a 74-year-old female from [facility] was sent here with complaint of fever high-grade, patient also complained of abdominal pain, she is hypoxic in the emergency department, she complains of pain all over mostly in the back she has been having her recent falls, Workup done in the emergency department, Labs showed WBC 12.7, H&H 9.8/34.2, proBNP is 5186, 2 troponins are positive, serum lactate is 3.4 EKG showed no acute changes compared to old EKG ABG showed no hypercapnia, urine analysis showed pyuria CTA chest showed possible right upper lobe PE versus artifact with small bilateral pleural effusions. Patient received ceftriaxone and 1 dose of morphine IV. Past Medical History: Medical History[1] Past Surgical History: Surgical History[2] Social History: Social History Socioeconomic History Marital status: Spouse name: Not on file Number of children: Not on file Years of education: Not on file Highest education level: Not on file Occupational History Not on file Tobacco Use Smoking status: Former Types: Cigarettes Smokeless tobacco: Never Substance and Sexual Activity Alcohol use: Not Currently Drug use: Never Sexual activity: Not on file Other Topics Concern Not on file Social History Narrative Not on file Social Drivers of Health Financial Resource Strain: Not on file Food Insecurity: Not on file Transportation Needs: Not on file Physical Activity: Not on file Stress: Not on file Social Connections: Not on file Intimate Partner Violence: Not on file Housing Stability: Not on file Family History: Family History[3] Medications Prior to Admission: Current Medications[4] Medications Reconciliation: Allergies: Allergies[5] REVIEW OF SYSTEMS: 10 point ROS obtained, as per HPI, otherwise NEG Vitals: BP 136/66 Pulse 73 Temp 37.9 ?C (100.3 ?F) Resp (!) 32 SpO2 97% BMI Classification: Pulse Ox: SpO2 Av.5 % Min: 95 % Max: 100 % Supplemental O2: O2 Flow Rate (L/min): 4 L/min PHYSICAL EXAM: Physical Exam Constitutional: Appearance: She is obese. She is ill-appearing. Cardiovascular: Rate and Rhythm: Regular rhythm. Tachycardia present. Pulses: Normal pulses. Heart sounds: Normal heart sounds, S1 normal and S2 normal. Pulmonary: Effort: Tachypnea present. Breath sounds: Decreased air movement present. Abdominal: Palpations: Abdomen is soft. Tenderness: There is generalized abdominal tenderness. Musculoskeletal: Right lower le+ Pitting Edema present. Left lower le+ Pitting Edema present. DATA: CBC: Recent Labs 11/13/24 0951 WBC 12.7* RBC 4.07 HGB 11.2* 9.8* HCT 34.2* MCV 84.0 RDW 20.2* PLT 184 BMP: Recent Labs 11/13/24 0951 NA 142 K 3.1* CL 105 CO2 27 BUN 9 CREATININE 0.85 GLUCOSE 152* CALCIUM 8.6* ANIONGAP 10 LIVER PROFILE: Recent Labs 11/13/24 0951 AST 34* ALT 11 BILITOT 0.9 ALKPHOS 66 PROT 6.5 PT/INR: No results for input(s): PROTIME, INR in the last 72 hours. CARDIAC ENZYMES: No results for input(s): TROPONINI in the last 72 hours. Procalcitonin: No results found for: PROCAL Urine Culture: No results found for this or any previous visit. COVID-19 PCR: No results for input(s): COVID19 in the last 72 hours. I reviewed: [x] laboratory results [x] radiographic results At the time of today's encounter. Pt was advised of the results. Data: (LOW: 2x CAT1 or independent historian MOD: 3x CAT1 or 1x CAT3 EXTENSIVE: 3x CAT1 and 1x CAT3) Assessment Discussed management with the ED provider and agree with hospitalization. Acute, acute on chronic, unstable/uncontrolled chronic problems/diagnoses: Severe sepsis possibly due to UTI-hypotension, leukocytosis, high-grade fever, tachypnea Pyuria Acute hypoxia with respiratory insufficiency? Cause Elevated troponins possibly due to type II PA and demand ischemia Obesity Chronic back pain Hypokalemia Stable chronic problems affecting care, new non-acute diagnoses: Chronic back pain Plan As a result of the above findings & factors, the following mgmt was pursued: - Admit the patient to medical floor continue empiric antibiotics follow-up blood culture and urine culture, check venous duplex scan of lower extremities Consulted cardiology, consulted geriatrics - am labs, replace lytes prn - PT/OT/CM/SW - delirium precautions: - DVT prophylaxis: Lovenox Complexity: Risk: Advance Directive: No Order Anticipated Discharge - Date - - Location - - Pending the following - Total time spent (which include face to face and non face to face encounters) : 76 mi (more content not included)... [facility] 11-13-2024 History and physical note Attending History and Physical Admit Date: 11/13/2024 PCP: Rosanne Waddell DO CHIEF COMPLAINT: Having pain all over Reason for Admission: Severe sepsis, possible UTI and dehydration History Obtained From: Patient and the ED physician HISTORY OF PRESENT ILLNESS: Patient is a 74-year-old female from [facility] was sent here with complaint of fever high-grade, patient also complained of abdominal pain, she is hypoxic in the emergency department, she complains of pain all over mostly in the back she has been having her recent falls, Workup done in the emergency department, Labs showed WBC 12.7, H&H 9.8/34.2, proBNP is 5186, 2 troponins are positive, serum lactate is 3.4 EKG showed no acute changes compared to old EKG ABG showed no hypercapnia, urine analysis showed pyuria CTA chest showed possible right upper lobe PE versus artifact with small bilateral pleural effusions. Patient received ceftriaxone and 1 dose of morphine IV. Past Medical History: Medical History[1] Past Surgical History: Surgical History[2] Social History: Social History Socioeconomic History Marital status: Spouse name: Not on file Number of children: Not on file Years of education: Not on file Highest education level: Not on file Occupational History Not on file Tobacco Use Smoking status: Former Types: Cigarettes Smokeless tobacco: Never Substance and Sexual Activity Alcohol use: Not Currently Drug use: Never Sexual activity: Not on file Other Topics Concern Not on file Social History Narrative Not on file Social Drivers of Health Financial Resource Strain: Not on file Food Insecurity: Not on file Transportation Needs: Not on file Physical Activity: Not on file Stress: Not on file Social Connections: Not on file Intimate Partner Violence: Not on file Housing Stability: Not on file Family History: Family History[3] Medications Prior to Admission: Current Medications[4] Medications Reconciliation: Allergies: Allergies[5] REVIEW OF SYSTEMS: 10 point ROS obtained, as per HPI, otherwise NEG Vitals: BP 136/66 Pulse 73 Temp 37.9 C (100.3 F) Resp (!) 32 SpO2 97% BMI Classification: Pulse Ox: SpO2 Av.5 % Min: 95 % Max: 100 % Supplemental O2: O2 Flow Rate (L/min): 4 L/min PHYSICAL EXAM: Physical Exam Constitutional: Appearance: She is obese. She is ill-appearing. Cardiovascular: Rate and Rhythm: Regular rhythm. Tachycardia present. Pulses: Normal pulses. Heart sounds: Normal heart sounds, S1 normal and S2 normal. Pulmonary: Effort: Tachypnea present. Breath sounds: Decreased air movement present. Abdominal: Palpations: Abdomen is soft. Tenderness: There is generalized abdominal tenderness. Musculoskeletal: Right lower le+ Pitting Edema present. Left lower le+ Pitting Edema present. DATA: CBC: Recent Labs 11/13/24 0951 WBC 12.7* RBC 4.07 HGB 11.2* 9.8* HCT 34.2* MCV 84.0 RDW 20.2* PLT 184 BMP: Recent Labs 11/13/24 0951 NA 142 K 3.1* CL 105 CO2 27 BUN 9 CREATININE 0.85 GLUCOSE 152* CALCIUM 8.6* ANIONGAP 10 LIVER PROFILE: Recent Labs 11/13/24 0951 AST 34* ALT 11 BILITOT 0.9 ALKPHOS 66 PROT 6.5 PT/INR: No results for input(s): PROTIME, INR in the last 72 hours. CARDIAC ENZYMES: No results for input(s): TROPONINI in the last 72 hours. Procalcitonin: No results found for: PROCAL Urine Culture: No results found for this or any previous visit. COVID-19 PCR: No results for input(s): COVID19 in the last 72 hours. I reviewed: [x] laboratory results [x] radiographic results At the time of today's encounter. Pt was advised of the results. Data: (LOW: 2x CAT1 or independent historian MOD: 3x CAT1 or 1x CAT3 EXTENSIVE: 3x CAT1 and 1x CAT3) Assessment Discussed management with the ED provider and agree with hospitalization. Acute, acute on chronic, unstable/uncontrolled chronic problems/diagnoses: Severe sepsis possibly due to UTI-hypotension, leukocytosis, high-grade fever, tachypnea Pyuria Acute hypoxia with respiratory insufficiency? Cause Elevated troponins possibly due to type II PA and demand ischemia Obesity Chronic back pain Hypokalemia Stable chronic problems affecting care, new non-acute diagnoses: Chronic back pain Plan As a result of the above findings & factors, the following mgmt was pursued: - Admit the patient to medical floor continue empiric antibiotics follow-up blood culture and urine culture, check venous duplex scan of lower extremities Consulted cardiology, consulted geriatrics - am labs, replace lytes prn - PT/OT/CM/SW - delirium precautions: - DVT prophylaxis: Lovenox Complexity: Risk: Advance Directive: No Order Anticipated Discharge - Date - - Location - - Pending the following - Total time spent (which include face to face and non face to face encounters) : 76 minutes. Toxic drug monitoring/narrow therapeutic index drug monitoring : # Drug name : # Route administered : # Method of monitoring : Extended Emergency Contact Information Primary Emergency Contact: Rey Fagan Mobile Relation: Brother Preferred language: Burkinan Crisis Manager needed? No Secondary Emergency Contact: Jolene Fagan Mobile Relation: Other Preferred language: Burkinan Crisis Manager needed? No [employer]ING Divya Joseph : 1950 Primary Care Physician: Rosanne Waddell DO The patient and/or family/surrogate voluntarily agreed to participate in ACP services. Patient s cognitive capacity: Code Status: [_* ] [FULL CODE - Continue all advanced life support: CPR,intubation,invasive procedures] [_] [DNR-CCA - DO NOT do CPR, intubation] [_] [DNR-HAND SHOES SEWER - Comfort care only] [_] DNR form [was/was not] signed Summary of discussion: The patient health care POA/ surrogate is the following: . [Condition that instigated the ACP on this DOS, relevant PMH, functional status, goals of care, and whom this was discussed with including names and relationship to the patient, and any relevant advance care documentation discussion] I answered all the patient/family questions that I could within the range and scope of the current medical situation. We discussed the medical conditions, risks, benefits, outcomes, and goals of care at this time for the patient's medical issues at hand in the face of the patient's chronic issues and current presentation. Total time spent: 19 minutes were spent discussing the patient's resuscitation status, advance care planning, and end of life care, with patient and/or family/surrogate. Portia Cabrera MD Division of Hospitalist Medicine [facility] [1] Past Medical History: Diagnosis Date Altered mental status, unspecified Ataxia Atherosclerotic heart disease Bradycardia, unspecified Cognitive communication deficit Difficulty walking Dysphagia, oropharyngeal phase Dyspnea Essential (primary) hypertension Gastro-esophageal reflux disease without esophagitis Muscle weakness (generalized) Need for assistance with personal care Other chronic pain Pain in left shoulder Paroxysmal atrial fibrillation (HCC) Peripheral vascular disease, unspecified (HCC) Presence of cardiac pacemaker Repeated falls Sick sinus syndrome (CMS/HCC) (HCC) Unsteadiness on feet Weakness [2] History reviewed. No pertinent surgical history. [3] No family history on file. [4] Current Facility-Administered Medications: sodium chloride 0.9 % infusion, 5-250 mL/hr, IntraVENous, PRN, Kati Acosta MD sodium chloride 0.9% (NS) flush 5-40 mL, 5-40 mL, IntraVENous, 2 times per day, Kati Acosta MD sodium chloride 0.9% (NS) flush 5-40 mL, 5-40 mL, IntraVENous, PRN, Kati Acosta MD Current Outpatient Medications: acetaminophen (Tylenol) 325 MG tablet, 650 mg., Disp: , Rfl: aspirin 81 MG chewable tablet, , Disp: , Rfl: benzonatate (Tessalon) 100 MG capsule, TAKE 1 CAPSULE BY MOUTH EVERY MORNING AND 2 IN THE EVENING *EMERGENCY REFILL*, Disp: , Rfl: dicyclomine (Bentyl) 20 MG tablet, 20 mg., Disp: , Rfl: ferrous sulfate 325 (65 Fe) MG EC tablet, Take 325 mg by mouth 3 times daily (with meals). Do not crush, chew, or split., Disp: , Rfl: folic acid (Folvite) 1 MG tablet, 1 mg., Disp: , Rfl: gabapentin (Neurontin) 100 MG capsule, 200 mg., Disp: , Rfl: hydrocortisone 1 % cream, , Disp: , Rfl: isosorbide mononitrate ER (Imdur) 30 MG 24 hr tablet, 30 mg., Disp: , Rfl: Ketoconazole 1 % shampoo, Apply topically., Disp: , Rfl: lisinopril 5 MG tablet, , Disp: , Rfl: loperamide (Imodium A-D) 2 MG tablet, 2 mg., Disp: , Rfl: loratadine (Claritin) 10 MG tablet, 10 mg., Disp: , Rfl: methocarbamol (Robaxin) 500 MG tablet, Take 500 mg by mouth., Disp: , Rfl: metoprolol tartrate (Lopressor) 25 MG tablet, TAKE 1/2 TABLET BY MOUTH TWO TIMES A DAY, Disp: , Rfl: montelukast (Singulair) 10 MG tablet, 10 mg., Disp: , Rfl: nitroglycerin (Nitrostat) 0.4 MG SL tablet, 0.4 mg., Disp: , Rfl: ondansetron (Zofran) 4 MG tablet, Take by mouth., Disp: , Rfl: oxybutynin XL (Ditropan-XL) 5 MG 24 hr tablet, , Disp: , Rfl: pantoprazole (ProtoNix) 40 MG EC tablet, 40 mg., Disp: , Rfl: pravastatin (Pravachol) 80 MG tablet, 80 mg., Disp: , Rfl: warfarin (Coumadin) 2 MG tablet, , Disp: , Rfl: warfarin (Coumadin) 2.5 MG tablet, , Disp: , Rfl: [5] Allergies Allergen Reactions Regadenoson Anaphylaxis Ciprofloxacin Itching Metronidazole Dizziness Atorvastatin Hives Gluten Meal Other Sulfa Antibiotics Itching Wheat Metoprolol Rash Niacin Rash Penicillins Rash documented in this encounter [facility] 11-13-2024 Emergency department Note Unit made aware of impending patient transport to the unit via broadcast. EMERGENCY DEPARTMENT ENCOUNTER Pt Name: Divya Joseph Birthdate 1950 Date of evaluation: 11/13/2024 ED Provider: Socorro Wu DO CHIEF COMPLAINT Chief Complaint Patient presents with Altered Mental Status From [facility]. With AMS. Pt c/o of not feeling well. Pt with abd pain. Axo x 3 pt with temp of 100.3 HISTORY OF PRESENT ILLNESS (Location/Symptom, Timing/Onset, Context/Setting, Quality, Duration, Modifying Factors, Severity) Note limiting factors. I wore appropriate PPE for the entirety of this encounter. HPI Divya Joseph is a 74 y.o. female who presents to the emergency department via EMS from a sn[facility] for altered mental status. Baseline mental status is alert and oriented x 3 according to EMS report from snf. Patient complains of abdominal pain but is unable to provide any other history. Nursing Notes were reviewed. Limitations to history: None Outside historians: None REVIEW OF SYSTEMS All pertinent ROS in HPI. PAST MEDICAL HISTORY Medical History[1] SURGICAL HISTORY Surgical History[2] CURRENT MEDICATIONS Current Discharge Medication List CONTINUE these medications which have NOT CHANGED Details acetaminophen (Tylenol) 325 MG tablet 650 mg. aspirin 81 MG chewable tablet benzonatate (Tessalon) 100 MG capsule TAKE 1 CAPSULE BY MOUTH EVERY MORNING AND 2 IN THE EVENING *EMERGENCY REFILL* dicyclomine (Bentyl) 20 MG tablet 20 mg. ferrous sulfate 325 (65 Fe) MG EC tablet Take 325 mg by mouth 3 times daily (with meals). Do not crush, chew, or split. folic acid (Folvite) 1 MG tablet 1 mg. gabapentin (Neurontin) 100 MG capsule 200 mg. hydrocortisone 1 % cream isosorbide mononitrate ER (Imdur) 30 MG 24 hr tablet 30 mg. Ketoconazole 1 % shampoo Apply topically. lisinopril 5 MG tablet loperamide (Imodium A-D) 2 MG tablet 2 mg. loratadine (Claritin) 10 MG tablet 10 mg. methocarbamol (Robaxin) 500 MG tablet Take 500 mg by mouth. metoprolol tartrate (Lopressor) 25 MG tablet TAKE 1/2 TABLET BY MOUTH TWO TIMES A DAY montelukast (Singulair) 10 MG tablet 10 mg. nitroglycerin (Nitrostat) 0.4 MG SL tablet 0.4 mg. ondansetron (Zofran) 4 MG tablet Take by mouth. oxybutynin XL (Ditropan-XL) 5 MG 24 hr tablet pantoprazole (ProtoNix) 40 MG EC tablet 40 mg. pravastatin (Pravachol) 80 MG tablet 80 mg. !! warfarin (Coumadin) 2 MG tablet !! warfarin (Coumadin) 2.5 MG tablet !! - Potential duplicate medications found. Please discuss with provider. ALLERGIES Regadenoson, Ciprofloxacin, Metronidazole, Atorvastatin, Gluten meal, Sulfa antibiotics, Wheat, Metoprolol, Niacin, and Penicillins FAMILY HISTORY Family History[3] SOCIAL HISTORY Social History[4] SCREENINGS Jhon Coma Scale Best Eye Response: Spontaneous Best Verbal Response: Oriented Best Motor Response: Follows commands [place] Coma Scale Score: 15 PHYSICAL EXAM ED Triage Vitals [11/13/24 0933] Temp Heart Rate Resp BP 37.9 C (100.3 F) 72 24 (!) 176/58 SpO2 Temp src Heart Rate Source Patient Position 98 % -- Monitor -- BP Location FiO2 (%) -- -- Physical Exam Vitals and nursing note reviewed. Constitutional: Appearance: She is not ill-appearing. HENT: Mouth/Throat: Mouth: Mucous membranes are moist. Pharynx: Oropharynx is clear. Eyes: Extraocular Movements: Extraocular movements intact. Conjunctiva/sclera: Conjunctivae normal. Pupils: Pupils are equal, round, and reactive to light. Cardiovascular: Rate and Rhythm: Normal rate. Pulses: Normal pulses. Heart sounds: Normal heart sounds. Pulmonary: Effort: Pulmonary effort is normal. Breath sounds: Normal breath sounds. Abdominal: Comments: Flat, soft, diffusely tender with worsening tenderness to left upper quadrant. Musculoskeletal: Right lower leg: No edema. Left lower leg: No edema. Comments: 1+ bilateral nonpitting edema. No tenderness to palpation of bilateral calves. Skin: General: Skin is warm. Neurological: Mental Status: She is alert. Cranial Nerves: No cranial nerve deficit. Comments: Oriented to self and age. Psychiatric: Behavior: Behavior normal. DIAGNOSTIC RESULTS RADIOLOGY (Per Emergency Physician): Interpretation per the Radiologist below, if available at the time of this note: CT abdomen pelvis w contrast Final Result 1. Small bilateral pleural effusions, left greater than right. 2. Mild right-sided hydroureter. Report Dictated on Electronically Signed By: Wong Srinivasan MD Electronically Signed Date/Time: 11/13/2024 11:[address] chest angiogram w and/or wo IV contrast Final Result Examination is limited due to motion artifact. There is decreased attenuation involving multiple segmental and subsegmental pulmonary artery supplying the right upper lobe which could represent pulmonary emboli, however evaluation is limited due to the motion artifact. The RV/LV ratio is less than one.. . Report Dictated on Electronically Signed By: Wong Srinivasan MD Electronically Signed Date/Time: 11/13/2024 11:[address] head wo IV contrast Final Result No CT evidence of an acute intracranial abnormality. Report Dictated on Electronically Signed By: Wong Srinivasan MD Electronically Signed Date/Time: 11/13/2024 11:15 AM EDT XR chest 1 view Final Result Vascular US lower extremity venous duplex bilateral (Results Pending) LABS: Labs Reviewed CBC WITH AUTO DIFFERENTIAL - Abnormal Result Value Auto WBC 12.7 (*) RBC 4.07 Hemoglobin 9.8 (*) Hematocrit 34.2 (*) MCV 84.0 MCH 24.1 (*) MCHC 28.7 (*) RDW 20.2 (*) Platelets 184 MPV 12.5 COMPREHENSIVE METABOLIC PANEL - Abnormal SODIUM 142 POTASSIUM 3.1 (*) CHLORIDE 105 CARBON DIOXIDE 27 ANION GAP 10 UREA NITROGEN 9 CREATININE 0.85 GLUCOSE 152 (*) CALCIUM 8.6 (*) AST (SGOT) 34 (*) ALT 11 ALKALINE PHOSPHATASE 66 ALBUMIN 3.2 (*) BILIRUBIN, TOTAL 0.9 TOTAL PROTEIN 6.5 eGFR 72.0 BLOOD GAS, VENOUS - Abnormal pH, Venous 7.400 pCO2, Venous 41.1 pO2, Venous 34.3 HCO3, Venous 24.9 O2 Sat, Venous 64.8 Base Excess, Venous 0.1 Hgb, blood gas 11.2 (*) TCO2, Venous 26.1 Source Of Oxygen Nasal Cannula (LPM) Amount Of Oxygen 3l Narrative: Assessment of oxygenation is best done with an arterial blood gas determination. Reference ranges for pO2, bicarbonate, and base excess are for mixed venous blood. Specimens drawn from a peripheral vein will often have higher values. COMPLETE URINALYSIS WITH REFLEX TO CULTURE - Abnormal Color, Urine Yellow Clarity, Urine Turbid (*) pH, Urine 6.5 Leukocytes, Urine 500 (*) Nitrite, Urine Positive (*) Protein, Urine 20 (*) Glucose, Urine Normal Bilirubin, Urine Negative Ketones, Urine Negative Urobilinogen, Urine Normal Blood, Urine 0.2 (*) RBC, Urine 26-50 (*) WBC, Urine >100 (*) Squamous Epithelial, Urine Negative Bacteria, Urine Moderate (*) Mucus, Urine Few WBC Clumps, Urine Few (*) SPECIFIC GRAVITY OF URINE (NUMERIC) 1.009 Narrative: This specimen has been reflexed to urine culture. HIGH SENSITIVITY TROPONIN, SERIAL BASELINE - Abnormal Troponin HS Serial Baseline 78 (*) NT PRO BNP - Abnormal NT PRO BNP 5,186 (*) HIGH SENSITIVITY TROPONIN, SERIAL, SECOND TEST - Abnormal 2h Troponin HS (Serial 2nd Troponin) 90 (*) LACTIC ACID WITH REFLEX - Abnormal LACTIC ACID 2.9 (*) MANUAL DIFFERENTIAL - Abnormal Adjusted WBC 12.7 (*) Neutrophils % 78 Bands % 13 (*) Lymphocytes % 6 (*) Monocytes % 3 (*) Absolute Neutrophil Count 11.6 (*) Segs Absolute 11.6 (*) Bands Absolute 1.7 (*) Lymphocytes Absolute 0.8 (*) Monocytes Absolute 0.4 Anisocytosis Moderate (*) Poikilocytes Slight (*) Hypochromia Slight (*) Polychromasia Slight (*) Stomatocytes Rare (*) WBC Morphology Normal Giant PLTs Slight (*) Total Counted 100 Neutrophils Manual 78 Lymphocytes Manual 6 Monocytes Manual 3 Bands Manual 13 Differential Method Manual differential performed LACTIC ACID WITH REFLEX - Abnormal LACTIC ACID 3.4 (*) HIGH SENSITIVITY TROPONIN, SERIAL, THIRD TEST - Abnormal 4h Troponin HS (Serial 3rd Troponin) 152 (*) SARS-COV-2, FLU A/B, AND RSV COMBO - Normal SARS-CoV-2 Not Detected Respiratory Syncytial Virus Not Detected Influenza A Not Detected Influenza B Not Detected Narrative: Methodology: real-time, RT-PCR The SARS-CoV-2, Flu A/B, and RSV Combo assay is intended for in vitro diagnostic use under the FDA Emergency Use Authorization (EUA). This test has not been FDA cleared or approved. In compliance with this authorization, please visit www.fda.gov/media/392283/[email or web address] d or www.fda.gov/media/853697/[email or web address] d to access the applicable information sheets. BLOOD CULTURE BLOOD CULTURE URINE CULTURE LACTIC ACID WITH REFLEX POCT GLUCOSE METER All other labs were within normal range or not returned as of this dictation. EMERGENCY DEPARTMENT COURSE and DIFFERENTIAL DIAGNOSIS/MDM: Vitals: Vitals: 11/13/24 1313 11/13/24 1326 11/13/24 1436 11/13/24 1512 BP: (!) 119/96 136/66 103/85 (!) 143/98 BP Location: Left arm Patient Position: Sitting Pulse: 81 73 74 81 Resp: 19 (!) 32 22 22 Temp: (!) 38.3 C (100.9 F) TempSrc: Temporal SpO2: 97% 99% 97% MDM: A 74 y.o. female presents to the ED via EMS from snf for altered mental status. Baseline alert and oriented x 3. Past medical history of paroxysmal A-fib, presence of pacemaker, unspecified altered mental status. Differential diagnosis includes intra-abdominal infection, cholelithiasis, pancreatitis, pneumonia, PE, ACS, or UTI. Patient came in with a temperature of 100.3, tachypneic, and bands 13%. Patient was also ill-appearing so ordered lactate, blood cultures, and fluids. UA resulted positive for leukocyte esterase, nitrites, RBCs, elevated WBCs, moderate bacteria. Gave 1 g Rocephin for UTI that is likely but due to cystitis. CT imaging was unremarkable for any pneumonia or intra-abdominal infection. Second lactate was elevated at 3.4 so ordered another liter fluid bolus. Abdominal labs unremarkable. EKG showed no ischemic ST segment changes. Will continue to trend troponins but initial troponin was 70. Patient does not not complain of any shortness of breath, chest pain, or nausea. CTA resulted and showed decreased attenuation involving multiple segmental and segmental pulmonary arteries supplying right upper lobe could represent pulmonary emboli however evaluation is limited due to motion artifact her RV/LV ratio was less than 1. On physical exam patient did not have any unilateral leg swelling or tenderness to palpation of calf muscles so I have very low suspicion for DVT and therefore do not believe that this patient requires being placed on blood thinners. Notified admitting attending Dr. Stinson of findings for if symptoms change. Discussed patient with Dr. Stinson and patient is admitted in stable condition to hospital. SEP- CORE MEASURE DATA SIRS Criteria Sepsis Criteria Severe Sepsis Criteria Septic Shock Criteria Must meet 2: [] Temperature > 100.4 F (38 C) or < 96.8 F (36 C) [x] HR > 90 [] RR > 20 [x] WBC > 12 or < 4 or 10% bands Must be confirmed or suspected to move forward with diagnosis of sepsis. Must select at least one: [x] Bacterial Infection Confirmed or Suspected. [] Viral Infection Confirmed or Suspected. [] Fungal Infection Confirmed or Suspected. [] No infection present. Patient does not meet criteria for Sepsis. Must meet 1: [x] Lactate > 2 or [] Signs of Organ Dysfunction: - SBP < 90 or MAP < 65 - Altered mental status - Creatinine > 2 or increased from baseline - Urine Output < 0.5 ml/kg/hr - Bilirubin > 2 - INR > 1.5 - Platelets < 100,000 - Acute Respiratory Failure as evidenced by new need for NIPPV or mechanical ventilation [] No criteria met for Severe Sepsis. Must meet 1: [] Lactate = or > 4 or [] SBP < 90 or MAP < 65 for at least two readings in the first hour after fluid bolus administration [] No criteria met for Septic Shock. No data found. Recent Labs 11/13/24 0951 11/13/24 1008 11/13/24 1250 WBC 12.7* -- -- LACTATE -- 2.9* 3.4* CREATININE 0.85 -- -- BILITOT 0.9 -- -- PLT 184 -- -- Sepsis Identified at 0952 hours. Fluid Resuscitation Rational: at least 30mL/kg based on entered actual body weight at time of triage Infection Source: Urinary System Reassessment Exam: Not applicable. Patient does not have Septic Shock. Socorro Wu, DO Diagnoses as of 11/13/24 1539 Transient alteration of awareness Sepsis with acute hypoxic respiratory failure without septic shock, due to unspecified organism (HCC) Lower urinary tract infectious disease External records reviewed: Diagnostics interpreted by me: Discussions with other clinicians: Social determinants of health affecting care: ED Medications managed: Medications sodium chloride 0.9% (NS) flush 5-40 mL ( IntraVENous Not Given 11/13/24 1050) sodium chloride 0.9% (NS) flush 5-40 mL (has no administration in time range) sodium chloride 0.9 % infusion (has no administration in time range) ipratropium-albuterol (Duo-Neb) 0.5-2.5 mg/3 mL nebulizer solution 3 mL (has no administration in time range) sodium chloride 0.9 % bolus 1,000 mL (0 mL IntraVENous Stopped 11/13/24 1308) iopamidol (Isovue-370) 76 % injection 75 mL (75 mL IntraVENous Given 11/13/24 1058) cefTRIAXone (Rocephin) 1,000 mg in sodium chloride 0.9 % 50 mL IVPB Mini-Bag Plus (0 mg IntraVENous Stopped 11/13/24 1239) morphine injection 4 mg (4 mg IntraVENous Given 11/13/24 1310) sodium chloride 0.9 % infusion 1,000 mL (0 mL IntraVENous Stopped 11/13/24 1456) PROCEDURES: Unless otherwise noted below, none Procedures FINAL IMPRESSION 1. Transient alteration of awareness 2. Sepsis with acute hypoxic respiratory failure without septic shock, due to unspecified organism (HCC) 3. Lower urinary tract infectious disease 4. Acute deep vein thrombosis (DVT) of calf muscle vein of both lower extremities (HCC) DISPOSITION Admit 11/13/2024 01:46:38 PM PATIENT REFERRED TO: No follow-up provider specified. DISCHARGE MEDICATIONS: Current Discharge Medication List (Comment: Please note this report has been produced using speech recognition software and may contain errors related to that system including errors in grammar, punctuation, and spelling, as well as words and phrases that may be inappropriate. If there are any questions or concerns please feel free to contact the dictating provider for clarification.) Socorro Wu DO (electronically signed) Emergency Medicine Provider [1] Past Medical History: Diagnosis Date Altered mental status, unspecified Ataxia Atherosclerotic heart disease Bradycardia, unspecified Cognitive communication deficit Difficulty walking Dysphagia, oropharyngeal phase Dyspnea Essential (primary) hypertension Gastro-esophageal reflux disease without esophagitis Muscle weakness (generalized) Need for assistance with personal care Other chronic pain Pain in left shoulder Paroxysmal atrial fibrillation (HCC) Peripheral vascular disease, unspecified (HCC) Presence of cardiac pacemaker Repeated falls Sick sinus syndrome (CMS/HCC) (HCC) Unsteadiness on feet Weakness [2] History reviewed. No pertinent surgical history. [3] No family history on file. [4] Social History Socioeconomic History Marital status: Tobacco Use Smoking status: Former Types: Cigarettes Smokeless tobacco: Never Substance and Sexual Activity Alcohol use: Not Currently Drug use: Never oScorro Wu DO Resident 11/13/24 1539 Cosigned by Kati Acosta MD at 11/14/2024 11:25 AM EDT documented in this encounter [facility] 11-09-2024 Radiology Diagnostic study note [facility] Imaging Services [address] [place] [address] [id number] Elbow min 3 Views MR#: [id number] Acct: [id number] Name: DIVYA JOSEPH Rep #: [id number] : 1950 F 74 From: Alma Delia Gabriel MD PCP: Dr. Rosanne Waddell DO Status: REG ER Study:Elbow min 3 Views Date of Exam: Exam# [id number] Ordering Dr: Jono Bryant DO PROCEDURE: ELBOW MIN 3 VIEWS 11/09/2024 REASON FOR EXAM: INJURY/PAIN TECHNIQUE: Procedure Code: RADEL Modality: DX Procedure: ELBOW MIN 3 VIEWS Laterality: Right COMPARISON: None FINDINGS: Osseous: No acute fracture or malalignment of the right elbow is seen. No bone lesion or periosteal reaction is seen. Soft tissues: No radiographic evidence for significant elbow joint effusion. Soft tissue injury can not be assessed by this technique. RAD/Elbow min 3 Views IMPRESSION: No radiographic evidence of an acute osseous injury or malalignment at the rightelbow. - Other findings discussed above. Reading Location: [facility] CC: Dr. Shira Bryant DO; Dr. Rosanne Waddell DO ~ Jig Maker: Signed [facility] 11-09-2024 Radiology Diagnostic study note [facility] Imaging Services [address] [place], [place] [id number] Spine Cervical without Contras MR#: [id number] Acct: [id number] Name: DIVYA JOSEPH Rep #: [id number] : 1950 F 74 From: Quinn Montiel MD PCP: Dr. Rosanne Waddell DO Status: REG ER Study:Spine Cervical without Contras Date of Exam: 11/09/24 Exam# [id number] Ordering Dr: Jono Bryant DO PROCEDURE: SPINE CERVICAL WITHOUT CONTRAS 11/09/2024 REASON FOR EXAM: INJURY/PAIN TECHNIQUE: Procedure Code: CTSPC Modality: CT Procedure: SPINE CERVICAL WITHOUT CONTRAS Coronal and Sagittal reconstruction series were provided. One or more dose reduction techniques were used (e.g., Automated exposure control, adjustment of the mA and/or kV according to patient size, use of iterative reconstruction technique. RADIATION DOSE SUMMARY: CTDlvol: 62 mGy DLP: 1153 mGycm FINDINGS: Normal cervical vertebral body height and alignment. Disc space narrowing at C5-6 and C6-7. No compression deformity. Normal C2 and C1 vertebra. Skull base appears intact. No fractures noted of the pedicles or lamina. No discrete soft tissue masses. CT/Spine Cervical without Contras IMPRESSION: No acute abnormality Reading Location: [facility] CC: Dr. Shira Bryant DO; Dr. Rosanne Waddell DO ~ Jig Maker: Signed [facility] 11-09-2024 Radiology Diagnostic study note [facility] Imaging Services [address] [place] [address] Brain/Head without Contrast MR#: [id number] Acct: [id number] Name: DIVYA JOSEPH Rep #: [id number] : 1950 F 74 From: Quinn Montiel MD PCP: Dr. Rosanne Waddell DO Status: REG ER Study:Brain/Head without Contrast Date of Exa m: 11/09/24 Exam# [id number] Ordering Dr: Jono Bryant DO PROCEDURE: BRAIN/HEAD WITHOUT CONTRAST 11/09/2024 REASON FOR EXAM: INJURY/PAIN TECHNIQUE: Procedure Code: CTBR Modality: CT Procedure: BRAIN/HEAD WITHOUT CONTRAST Coronal and Sagittal reconstruction series were provided. One or more dose reduction techniques were used (e.g., Automated exposure control, adjustment of the mA and/or kV according to patient size, use of iterative reconstruction technique. RADIATION DOSE SUMMARY: Information not provided COMPARISON: 12/09/2023 FINDINGS: Bony calvarium intact. Sinuses are clear. No intracranial mass or hemorrhage. No edema or hydrocephalus. CT/Brain/Head without Contrast IMPRESSION: No acute abnormality Reading Location: [facility] CC: Dr. Shira Bryant DO; Dr. Rosanne Waddell DO ~ Jig Maker: Signed [facility] 11-09-2024 Hospital Discharg e instructions Additional Instructions Your CT of the brain, neck and x-ray of the elbow did not show any acute traumatic process. Your INR was therapeutic tonight at 2.5. Ice and take Tylenol as needed for your elbow pain. If you have further swelling I recommend putting an Melisa wrap on it. [facility] Work Phone: 10-28-2024 Hospital Discharg e instructions Carlos Dsouza MD - 10/28/2024 1:58 PM EDT Contact your primary care provider for recommendations on further workup. At this time there is no signs of pneumonia or elevated heart enzymes that warrant hospitalization The following attachments cannot be sent through Care Everywhere.Chest Pain That Is Not Caused by the Heart Discharge Instructions (Burkinan)documented in this encounter [facility] 10-28-2024 Emergency department Note EMERGENCY DEPARTMENT ENCOUNTER Pt Name: Divya Joseph Birthdate 1950 Date of evaluation: 10/28/2024 ED Provider: Carlos Dsouza MD CHIEF COMPLAINT Chief Complaint Patient presents with Chest Pain HISTORY OF PRESENT ILLNESS (Location/Symptom, Timing/Onset, Context/Setting, Quality, Duration, Modifying Factors, Severity) Note limiting factors. I wore appropriate PPE for the entirety of this encounter. HPI Divya Joseph is a 74 y.o. female who presents to the emergency department with chief complaint of chest pain. Patient states she has chest pain across her chest, worse with rolling over to the right side of the left side. States when she is lying on her right side she feels an empty feeling in her left chest and vice versa. Denies shortness of breath although she does have a cough. Denies fevers. Denies abdominal pain nausea vomiting. Denies acute back pain. States she has chronic numbness and tingling in her legs, not a new symptom for her. Nursing Notes were reviewed. Limitations to history: None Outside historians: None REVIEW OF SYSTEMS Review of Systems: Pertinent positives as above per history of present illness. Other systems reviewed and found to be negative to a total of 10 systems reviewed. PAST MEDICAL HISTORY Medical History[1] SURGICAL HISTORY Surgical History[2] CURRENT MEDICATIONS Previous Medications ACETAMINOPHEN (TYLENOL) 325 MG TABLET 650 mg. ASPIRIN 81 MG CHEWABLE TABLET BENZONATATE (TESSALON) 100 MG CAPSULE TAKE 1 CAPSULE BY MOUTH EVERY MORNING AND 2 IN THE EVENING *EMERGENCY REFILL* DICYCLOMINE (BENTYL) 20 MG TABLET 20 mg. FERROUS SULFATE 325 (65 FE) MG EC TABLET Take 325 mg by mouth 3 times daily (with meals). Do not crush, chew, or split. FOLIC ACID (FOLVITE) 1 MG TABLET 1 mg. GABAPENTIN (NEURONTIN) 100 MG CAPSULE 200 mg. HYDROCORTISONE 1 % CREAM ISOSORBIDE MONONITRATE ER (IMDUR) 30 MG 24 HR TABLET 30 mg. KETOCONAZOLE 1 % SHAMPOO Apply topically. LISINOPRIL 5 MG TABLET LOPERAMIDE (IMODIUM A-D) 2 MG TABLET 2 mg. LORATADINE (CLARITIN) 10 MG TABLET 10 mg. METHOCARBAMOL (ROBAXIN) 500 MG TABLET Take 500 mg by mouth. METOPROLOL TARTRATE (LOPRESSOR) 25 MG TABLET TAKE 1/2 TABLET BY MOUTH TWO TIMES A DAY MONTELUKAST (SINGULAIR) 10 MG TABLET 10 mg. NITROGLYCERIN (NITROSTAT) 0.4 MG SL TABLET 0.4 mg. ONDANSETRON (ZOFRAN) 4 MG TABLET Take by mouth. OXYBUTYNIN XL (DITROPAN-XL) 5 MG 24 HR TABLET PANTOPRAZOLE (PROTONIX) 40 MG EC TABLET 40 mg. PRAVASTATIN (PRAVACHOL) 80 MG TABLET 80 mg. WARFARIN (COUMADIN) 2 MG TABLET WARFARIN (COUMADIN) 2.5 MG TABLET ALLERGIES Regadenoson, Ciprofloxacin, Metronidazole, Atorvastatin, Gluten meal, Sulfa antibiotics, Wheat, Metoprolol, Niacin, and Penicillins FAMILY HISTORY Family History[3] SOCIAL HISTORY Social History[4] SCREENINGS Upton Coma Scale Best Eye Response: Spontaneous Best Verbal Response: Oriented Best Motor Response: Follows commands [place] Coma Scale Score: 15 HEART Score History: Slightly suspicious ECG: Normal Age: 65+ Risk Factors: >2 risk factors or hx of atherosclerotic disease Troponin: Less than or equal to normal limit HEART Score: 4 PHYSICAL EXAM ED Triage Vitals [10/28/24 1008] Temp Heart Rate Resp BP 36.8 C (98.3 F) 61 18 136/87 SpO2 Temp Source Heart Rate Source Patient Position 96 % Oral -- -- BP Location FiO2 (%) -- -- Physical Exam: Vital signs reviewed in nurse's notes. Patient is nontoxic in appearance. No respiratory distress. Head: Normocephalic, atraumatic Eyes: Pupils are equal, round and reactive to light. EOMI. Conjunctiva clear. Sclera anicteric ENT: Mucous membranes moist. Throat shows no erythema exudates or edema. Neck: No anterior adenopathy. No tenderness or stiffness. Chest: Nontender. No obvious flail segments. Lungs: Clear to auscultation bilaterally. No wheezing rales or rhonchi. Heart: Regular rate and rhythm. No audible murmur or gallop. Abdomen: Soft, nondistended, nontender. No rebound or guarding. No signs of peritonitis. Back: No midline tenderness. No flank area tenderness. Extremities: No gross deformity. No obvious tenderness. No obvious joint swelling. No calf tenderness. Negative Homans sign. Good distal pulses in all 4 extremities. Neurologic: Alert and fully oriented. No focal motor, sensory deficits in all 4 extremities. Cranial nerves II through XII grossly intact. Cerebellar testing intact. Patient with paresthesias of her lower extremities but no true sensory deficits. NIH stroke scale is 0. DIAGNOSTIC RESULTS Procedures/EKG: Atrial paced complexes. Rate of 60. Normal axis. T wave inversion in the anterior leads. No old EKG available for comparison. Today's EKG interpreted by this examiner. EKG was reviewed by myself. Physician EKG interpretation can be found in [facility] RADIOLOGY (Per Emergency Physician): Chest x-ray: Increased markings at the bases, concerning for fluid overload. No acute focal consolidation. Interpreted by this examiner. Interpretation per the Radiologist below, if available at the time of this note: XR chest 1 view Final Result Findings suggestive of pulmonary edema, including interstitial thickening and hazy alveolar opacification. Possible tiny left pleural effusion. Report Dictated on Electronically Signed By: Germán Whatley MD Electronically Signed Date/Time: 10/28/2024 11:01 AM EDT LABS: Labs Reviewed BASIC METABOLIC PANEL - Abnormal Result Value SODIUM 142 POTASSIUM 4.1 CHLORIDE 107 CARBON DIOXIDE 30 UREA NITROGEN 9 CREATININE 0.76 GLUCOSE 114 CALCIUM 8.4 (*) ANION GAP 5 eGFR 82.3 CBC WITH AUTO DIFFERENTIAL - Abnormal Auto WBC 5.6 RBC 3.48 (*) Hemoglobin 8.2 (*) Hematocrit 28.2 (*) MCV 81.0 MCH 23.6 (*) MCHC 29.1 (*) RDW 15.5 (*) Platelets 202 MPV 12.5 nRBC 0.0 Neutrophils Relative 63.1 Lymphocytes Relative 22.9 Monocytes Relative 7.9 Eosinophils Relative 5.2 Basophils Relative 0.5 Immature Grans % 0.4 Neutrophils Absolute 3.5 Lymphocytes Absolute 1.3 Monocytes Absolute 0.4 Eosinophils Absolute 0.3 Basophils Absolute 0.0 Immature Grans Absolute 0.0 HEPATIC FUNCTION PANEL - Abnormal BILIRUBIN, TOTAL 0.3 BILIRUBIN, DIRECT 0.1 ALKALINE PHOSPHATASE 63 AST (SGOT) 23 ALT 8 ALBUMIN 3.1 (*) TOTAL PROTEIN 6.2 (*) NT PRO BNP - Abnormal NT PRO BNP 1,121 (*) SARS-COV-2, FLU A/B, AND RSV COMBO - Normal SARS-CoV-2 Not Detected Respiratory Syncytial Virus Not Detected Influenza A Not Detected Influenza B Not Detected Narrative: Methodology: real-time, RT-PCR The SARS-CoV-2, Flu A/B, and RSV Combo assay is intended for in vitro diagnostic use under the FDA Emergency Use Authorization (EUA). This test has not been FDA cleared or approved. In compliance with this authorization, please visit www.fda.gov/media/347857/downloa d or www.fda.gov/media/942790/downloa d to access the applicable information sheets. HIGH SENSITIVITY TROPONIN, SERIAL BASELINE - Normal Troponin HS Serial Baseline 10 HIGH SENSITIVITY TROPONIN, SERIAL, SECOND TEST - Normal 2h Troponin HS (Serial 2nd Troponin) 12 HIGH SENSITIVITY TROPONIN, SERIAL, THIRD TEST Laboratory studies obtained. Patient has anemia. Based on indices this is chronic appearing however I do not have any old laboratory studies for comparison. No severe renal insufficiency. BNP is slightly elevated 1100. COVID and flu testing is negative.. EMERGENCY DEPARTMENT COURSE and DIFFERENTIAL DIAGNOSIS/MDM: Vitals: Vitals: 10/28/24 1008 10/28/24 1130 10/28/24 1230 BP: 136/87 (!) 136/46 (!) 149/63 Pulse: 61 60 60 Resp: 18 20 19 Temp: 36.8 C (98.3 F) TempSrc: Oral SpO2: 96% 95% 98% Lab studies show no elevation of troponin. Although her BNP is elevated, she clinically does not complain of any shortness of breath and she is lying fairly flat with no respiratory distress or hypoxia. I do not feel patient needs diuretics acutely. I do feel she can follow-up closely as an outpatient for further evaluation and treatment. Patient agrees with this plan. There is no pneumonia. Return if worse or new symptoms or problems. The patient presented with chief complaint of chest pain. The differential diagnosis associated with this patient's presentation includes angina, STEMI, non-STEMI, muscular pain, pneumonia, CHF. Our workup consisted of ordering/reviewing: Chest x-ray, EKG, laboratory studies. To aid in management, I performed an independent interpretation of Xray(s) chest x-ray as above EKG; see my interpretation elsewhere in the chart. Consideration for escalation of care with: Admission/observation if elevated troponin. The patient will be Discharged. Patient is in agreement with this plan. Medications aspirin chewable tablet 324 mg (243 mg Oral Given 10/28/24 1048) REVAL: CRITICAL CARE TIME Total Critical Care time was 10 minutes, excluding separately reportable procedures. There was a high probability of clinically significant/life threatening deterioration in the patient's condition which required my urgent intervention. CONSULTS: None PROCEDURES: Unless otherwise noted below, none Procedures Patients symptoms are consistent with sepsis, severe sepsis, or septic shock (If yes use .sepsiscoremeasure): no FINAL IMPRESSION 1. Acute chest pain DISPOSITION Discharge 10/28/2024 01:57:34 PM PATIENT REFERRED TO: Rosanne Waddell DO [address] [facility] [address] Call in 2 days DISCHARGE MEDICATIONS: New Prescriptions No medications on file (Comment: Please note this report has been produced using speech recognition software and may contain errors related to that system including errors in grammar, punctuation, and spelling, as well as words and phrases that may be inappropriate. If there are any questions or concerns please feel free to contact the dictating provider for clarification.) Carlos Dsouza MD (electronically signed) Emergency Medicine Provider [1] Past Medical History: Diagnosis Date Altered mental status, unspecified Ataxia Atherosclerotic heart disease Bradycardia, unspecified Cognitive communication deficit Difficulty walking Dysphagia, oropharyngeal phase Dyspnea Essential (primary) hypertension Gastro-esophageal reflux disease without esophagitis Muscle weakness (generalized) Need for assistance with personal care Other chronic pain Pain in left shoulder Paroxysmal atrial fibrillation (HCC) Peripheral vascular disease, unspecified (HCC) Presence of cardiac pacemaker Repeated falls Sick sinus syndrome (CMS/HCC) (HCC) Unsteadiness on feet Weakness [2] History reviewed. No pertinent surgical history. [3] No family history on file. [4] Social History Socioeconomic History Marital status: Tobacco Use Smoking status: Former Types: Cigarettes Smokeless tobacco: Never Substance and Sexual Activity Alcohol use: Not Currently Drug use: Never Carlos Dsouza MD 10/28/24 1358 Patient presents via [facility] from [facility] for chest pain that started this morning. Patient has pacemaker and paced rhythm noted on monitor. Patient was given 3 nitroglycerin SL by EMS enroute. Patient took 1 81 mg Aspirin this morning with scheduled medications. Patient states pain is 2-3/10 upon arrival. Frequent, strong cough noted. Patient states she has had cough for several days. Patient alert and oriented. States she is in snf due to frequent falls and inability to care for self at home. documented in this encounter [facility] 10-28-2024 Emergency department Triage note Patient presents via [facility] from [facility] for chest pain that started this morning. Patient has pacemaker and paced rhythm noted on monitor. Patient was given 3 nitroglycerin SL by EMS enroute. Patient took 1 81 mg Aspirin this morning with scheduled medications. Patient states pain is 2-3/10 upon arrival. Frequent, strong cough noted. Patient states she has had cough for several days. Patient alert and oriented. States she is in snf due to frequent falls and inability to care for self at home. [facility] 10-28-2024 Physician Emergency department Note EMERGENCY DEPARTMENT ENCOUNTER Pt Name: Divya Joseph Birthdate 1950 Date of evaluation: 10/28/2024 ED Provider: Carlos Dsouza MD CHIEF COMPLAINT Chief Complaint Patient presents with Chest Pain HISTORY OF PRESENT ILLNESS (Location/Symptom, Timing/Onset, Context/Setting, Quality, Duration, Modifying Factors, Severity) Note limiting factors. I wore appropriate PPE for the entirety of this encounter. HPI Divya Joseph is a 74 y.o. female who presents to the emergency department with chief complaint of chest pain. Patient states she has chest pain across her chest, worse with rolling over to the right side of the left side. States when she is lying on her right side she feels an empty feeling in her left chest and vice versa. Denies shortness of breath although she does have a cough. Denies fevers. Denies abdominal pain nausea vomiting. Denies acute back pain. States she has chronic numbness and tingling in her legs, not a new symptom for her. Nursing Notes were reviewed. Limitations to history: None Outside historians: None REVIEW OF SYSTEMS Review of Systems: Pertinent positives as above per history of present illness. Other systems reviewed and found to be negative to a total of 10 systems reviewed. PAST MEDICAL HISTORY Medical History[1] SURGICAL HISTORY Surgical History[2] CURRENT MEDICATIONS Previous Medications ACETAMINOPHEN (TYLENOL) 325 MG TABLET 650 mg. ASPIRIN 81 MG CHEWABLE TABLET BENZONATATE (TESSALON) 100 MG CAPSULE TAKE 1 CAPSULE BY MOUTH EVERY MORNING AND 2 IN THE EVENING *EMERGENCY REFILL* DICYCLOMINE (BENTYL) 20 MG TABLET 20 mg. FERROUS SULFATE 325 (65 FE) MG EC TABLET Take 325 mg by mouth 3 times daily (with meals). Do not crush, chew, or split. FOLIC ACID (FOLVITE) 1 MG TABLET 1 mg. GABAPENTIN (NEURONTIN) 100 MG CAPSULE 200 mg. HYDROCORTISONE 1 % CREAM ISOSORBIDE MONONITRATE ER (IMDUR) 30 MG 24 HR TABLET 30 mg. KETOCONAZOLE 1 % SHAMPOO Apply topically. LISINOPRIL 5 MG TABLET LOPERAMIDE (IMODIUM A-D) 2 MG TABLET 2 mg. LORATADINE (CLARITIN) 10 MG TABLET 10 mg. METHOCARBAMOL (ROBAXIN) 500 MG TABLET Take 500 mg by mouth. METOPROLOL TARTRATE (LOPRESSOR) 25 MG TABLET TAKE 1/2 TABLET BY MOUTH TWO TIMES A DAY MONTELUKAST (SINGULAIR) 10 MG TABLET 10 mg. NITROGLYCERIN (NITROSTAT) 0.4 MG SL TABLET 0.4 mg. ONDANSETRON (ZOFRAN) 4 MG TABLET Take by mouth. OXYBUTYNIN XL (DITROPAN-XL) 5 MG 24 HR TABLET PANTOPRAZOLE (PROTONIX) 40 MG EC TABLET 40 mg. PRAVASTATIN (PRAVACHOL) 80 MG TABLET 80 mg. WARFARIN (COUMADIN) 2 MG TABLET WARFARIN (COUMADIN) 2.5 MG TABLET ALLERGIES Regadenoson, Ciprofloxacin, Metronidazole, Atorvastatin, Gluten meal, Sulfa antibiotics, Wheat, Metoprolol, Niacin, and Penicillins FAMILY HISTORY Family History[3] SOCIAL HISTORY Social History[4] SCREENINGS [place]pton Coma Scale Best Eye Response: Spontaneous Best Verbal Response: Oriented Best Motor Response: Follows commands [place] Coma Scale Score: 15 HEART Score History: Slightly suspicious ECG: Normal Age: 65+ Risk Factors: >2 risk factors or hx of atherosclerotic disease Troponin: Less than or equal to normal limit HEART Score: 4 PHYSICAL EXAM ED Triage Vitals [10/28/24 1008] Temp Heart Rate Resp BP 36.8 C (98.3 F) 61 18 136/87 SpO2 Temp Source Heart Rate Source Patient Position 96 % Oral -- -- BP Location FiO2 (%) -- -- Physical Exam: Vital signs reviewed in nurse's notes. Patient is nontoxic in appearance. No respiratory distress. Head: Normocephalic, atraumatic Eyes: Pupils are equal, round and reactive to light. EOMI. Conjunctiva clear. Sclera anicteric ENT: Mucous membranes moist. Throat shows no erythema exudates or edema. Neck: No anterior adenopathy. No tenderness or stiffness. Chest: Nontender. No obvious flail segments. Lungs: Clear to auscultation bilaterally. No wheezing rales or rhonchi. Heart: Regular rate and rhythm. No audible murmur or gallop. Abdomen: Soft, nondistended, nontender. No rebound or guarding. No signs of peritonitis. Back: No midline tenderness. No flank area tenderness. Extremities: No gross deformity. No obvious tenderness. No obvious joint swelling. No calf tenderness. Negative Homans sign. Good distal pulses in all 4 extremities. Neurologic: Alert and fully oriented. No focal motor, sensory deficits in all 4 extremities. Cranial nerves II through XII grossly intact. Cerebellar testing intact. Patient with paresthesias of her lower extremities but no true sensory deficits. NIH stroke scale is 0. DIAGNOSTIC RESULTS Procedures/EKG: Atrial paced complexes. Rate of 60. Normal axis. T wave inversion in the anterior leads. No old EKG available for comparison. Today's EKG interpreted by this examiner. EKG was reviewed by myself. Physician EKG interpretation can be found in [facility] RADIOLOGY (Per Emergency Physician): Chest x-ray: Increased markings at the bases, concerning for fluid overload. No acute focal consolidation. Interpreted by this examiner. Interpretation per the Radiologist below, if available at the time of this note: XR chest 1 view Final Result Findings suggestive of pulmonary edema, including interstitial thickening and hazy alveolar opacification. Possible tiny left pleural effusion. Report Dictated on Electronically Signed By: Germán Whatley MD Electronically Signed Date/Time: 10/28/2024 11:01 AM EDT LABS: Labs Reviewed BASIC METABOLIC PANEL - Abnormal Result Value SODIUM 142 POTASSIUM 4.1 CHLORIDE 107 CARBON DIOXIDE 30 UREA NITROGEN 9 CREATININE 0.76 GLUCOSE 114 CALCIUM 8.4 (*) ANION GAP 5 eGFR 82.3 CBC WITH AUTO DIFFERENTIAL - Abnormal Auto WBC 5.6 RBC 3.48 (*) Hemoglobin 8.2 (*) Hematocrit 28.2 (*) MCV 81.0 MCH 23.6 (*) MCHC 29.1 (*) RDW 15.5 (*) Platelets 202 MPV 12.5 nRBC 0.0 Neutrophils Relative 63.1 Lymphocytes Relative 22.9 Monocytes Relative 7.9 Eosinophils Relative 5.2 Basophils Relative 0.5 Immature Grans % 0.4 Neutrophils Absolute 3.5 Lymphocytes Absolute 1.3 Monocytes Absolute 0.4 Eosinophils Absolute 0.3 Basophils Absolute 0.0 Immature Grans Absolute 0.0 HEPATIC FUNCTION PANEL - Abnormal BILIRUBIN, TOTAL 0.3 BILIRUBIN, DIRECT 0.1 ALKALINE PHOSPHATASE 63 AST (SGOT) 23 ALT 8 ALBUMIN 3.1 (*) TOTAL PROTEIN 6.2 (*) NT PRO BNP - Abnormal NT PRO BNP 1,121 (*) SARS-COV-2, FLU A/B, AND RSV COMBO - Normal SARS-CoV-2 Not Detected Respiratory Syncytial Virus Not Detected Influenza A Not Detected Influenza B Not Detected Narrative: Methodology: real-time, RT-PCR The SARS-CoV-2, Flu A/B, and RSV Combo assay is intended for in vitro diagnostic use under the FDA Emergency Use Authorization (EUA). This test has not been FDA cleared or approved. In compliance with this authorization, please visit www.fda.gov/media/435686/downloa d or www.fda.gov/media/977214/downloa d to access the applicable information sheets. HIGH SENSITIVITY TROPONIN, SERIAL BASELINE - Normal Troponin HS Serial Baseline 10 HIGH SENSITIVITY TROPONIN, SERIAL, SECOND TEST - Normal 2h Troponin HS (Serial 2nd Troponin) 12 HIGH SENSITIVITY TROPONIN, SERIAL, THIRD TEST Laboratory studies obtained. Patient has anemia. Based on indices this is chronic appearing however I do not have any old laboratory studies for comparison. No severe renal insufficiency. BNP is slightly elevated 1100. COVID and flu testing is negative.. EMERGENCY DEPARTMENT COURSE and DIFFERENTIAL DIAGNOSIS/MDM: Vitals: Vitals: 10/28/24 1008 10/28/24 1130 10/28/24 1230 BP: 136/87 (!) 136/46 (!) 149/63 Pulse: 61 60 60 Resp: 18 20 19 Temp: 36.8 C (98.3 F) TempSrc: Oral SpO2: 96% 95% 98% Lab studies show no elevation of troponin. Although her BNP is elevated, she clinically does not complain of any shortness of breath and she is lying fairly flat with no respiratory distress or hypoxia. I do not feel patient needs diuretics acutely. I do feel she can follow-up closely as an outpatient for further evaluation and treatment. Patient agrees with this plan. There is no pneumonia. Return if worse or new symptoms or problems. The patient presented with chief complaint of chest pain. The differential diagnosis associated with this patient's presentation includes angina, STEMI, non-STEMI, muscular pain, pneumonia, CHF. Our workup consisted of ordering/reviewing: Chest x-ray, EKG, laboratory studies. To aid in management, I performed an independent interpretation of Xray(s) chest x-ray as above EKG; see my interpretation elsewhere in the chart. Consideration for escalation of care with: Admission/observation if elevated troponin. The patient will be Discharged. Patient is in agreement with this plan. Medications aspirin chewable tablet 324 mg (243 mg Oral Given 10/28/24 1048) REVAL: CRITICAL CARE TIME Total Critical Care time was 10 minutes, excluding separately reportable procedures. There was a high probability of clinically significant/life threatening deterioration in the patient's condition which required my urgent intervention. CONSULTS: None PROCEDURES: Unless otherwise noted below, none Procedures Patients symptoms are consistent with sepsis, severe sepsis, or septic shock (If yes use .sepsiscoremeasure): no FINAL IMPRESSION 1. Acute chest pain DISPOSITION Discharge 10/28/2024 01:57:34 PM PATIENT REFERRED TO: Rosanne Waddell DO [address] [facility] [address] Call in 2 days DISCHARGE MEDICATIONS: New Prescriptions No medications on file (Comment: Please note this report has been produced using speech recognition software and may contain errors related to that system including errors in grammar, punctuation, and spelling, as well as words and phrases that may be inappropriate. If there are any questions or concerns please feel free to contact the dictating provider for clarification.) Carlos Dsouza MD (electronically signed) Emergency Medicine Provider [1] Past Medical History: Diagnosis Date Altered mental status, unspecified Ataxia Atherosclerotic heart disease Bradycardia, unspecified Cognitive communication deficit Difficulty walking Dysphagia, oropharyngeal phase Dyspnea Essential (primary) hypertension Gastro-esophageal reflux disease without esophagitis Muscle weakness (generalized) Need for assistance with personal care Other chronic pain Pain in left shoulder Paroxysmal atrial fibrillation (HCC) Peripheral vascular disease, unspecified (HCC) Presence of cardiac pacemaker Repeated falls Sick sinus syndrome (CMS/HCC) (HCC) Unsteadiness on feet Weakness [2] History reviewed. No pertinent surgical history. [3] No family history on file. [4] Social History Socioeconomic History Marital status: Tobacco Use Smoking status: Former Types: Cigarettes Smokeless tobacco: Never Substance and Sexual Activity Alcohol use: Not Currently Drug use: Never Carlos Dsouza MD 10/28/24 1806 [facility] 08-30-2024 Evaluation note Diagnosis Onset Date Resolution Hypotension acute August 30 2:25pm Paroxysmal A-fib acute August 2:25pm Presence of cardiac pacemaker acute August 30, 2024 2:25pm Atherosclerosis of barrow coronary artery of barrow heart without angina chronic August 30, 2024 2:25pm Bradycardia chronic August 30 2:25pm Hypotension acute September 27 11:19am Paroxysmal A-fib acute September 11:19am Presence of cardiac pacemaker acute September 27, 2024 11:19am Atherosclerosis of barrow coronary artery of barrow heart without angina chronic September 27, 2024 11:19am Bradycardia chronic September 27 11:19am [employer] Work Phone: 1(831) 370-663006-09-2025 NoteName: Divya Joseph Date of : 1950 Referring clinician: Tom Gracia PA-C A report of nerve conduction studies and electromyography of both upper extremities Date of service: August 13, 2024 Findings: Sensory nerve conduction studies disclosed prolonged response latencies in the median nerves bilaterally; the response amplitude was borderline decreased on the left and normal on the right. Response latencies and amplitudes were normal in the ulnar and radial nerves bilaterally. With palmar stimulation, response latencies were prolonged in the median nerves bilaterally compared to both standard norms and ipsilateral ulnar nerve palmar response latencies, which were normal. Motor nerve conduction studies disclosed normal distal latencies and response amplitudes in the median nerves bilaterally; the conduction velocity on the right was slightly slow but not significantly different from that on the left, which fell within normal limits. Distal latencies, response amplitudes and conduction velocities were normal in the ulnar nerves to both abductor digiti minimi and first dorsal interosseus bilaterally. Needle EMG examination disclosed normal spontaneous activity in the biceps, triceps, pronator teres, extensor indicis proprius, first dorsal interosseus and abductor pollicis brevis bilaterally. Motor unit potential recruitment was slightly decreased in the left abductor pollicis brevis, where there were occasional enlarged potentials. Motor unit potential recruitment and morphology were normal in all other muscles examined. 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 Clinical correlation is advised. Doni Cho MD Location: Testing was conducted at [facility] as an outpatient. [facility] [id number] Procedure note* Doni Cho MD - 08/13/2024 10:30 AM EDT Name: Divya Joseph Date of : 1950 Referring clinician: Tom Gracia PA-C A report of nerve conduction studies and electromyography of both upper extremities Date of service: August 13, 2024 Findings: Sensory nerve conduction studies disclosed prolonged response latencies in the median nerves bilaterally; the response amplitude was borderline decreased on the left and normal on the right. Responselatencies and amplitudes were normal in the ulnar and radial nerves bilaterally. With palmar stimulation, response latencies were prolonged in the median nerves bilaterally compared to both standard norms and ipsilateral ulnar nerve palmar response latencies, which were normal. Motor nerve conduction studies disclosed normal distal latencies and response amplitudes in the median nerves bilaterally; the conduction velocity on the right was slightly slow but not significantlydifferent from that on the left, which fell within normal limits. Distal latencies, response amplitudes and conduction velocities were normal in the ulnar nerves to both abductor digiti minimi and first dorsal interosseus bilaterally. Needle EMG examination disclosed normal spontaneous activity in the biceps, triceps, pronator teres, extensor indicis proprius, first dorsal interosseus and abductor pollicis brevis bilaterally. Motor unit potential recruitment was slightly decreased in the left abductor pollicis brevis, where there were occasional enlarged potentials. Motor unit potential recruitment and morphology were normal in all other muscles examined. 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 Clinical correlation is advised. Doni Cho MD Location: Testing was conducted at [facility] as an outpatient. [facility] [employer] Work Phone: 1(451) 625-276606-09-2025 Procedure note* Doni Cho MD - 08/13/2024 10:30 AM EDT Name: Divya Joseph Date of : 1950 Referring clinician: Tom Gracia PA-C A report of nerve conduction studies and electromyography of both upper extremities Date of service: August 13, 2024 Findings: Sensory nerve conduction studies disclosed prolonged response latencies in the median nerves bilaterally; the response amplitude was borderline decreased on the left and normal on the right. Responselatencies and amplitudes were normal in the ulnar and radial nerves bilaterally. With palmar stimulation, response latencies were prolonged in the median nerves bilaterally compared to both standard norms and ipsilateral ulnar nerve palmar response latencies, which were normal. Motor nerve conduction studies disclosed normal distal latencies and response amplitudes in the median nerves bilaterally; the conduction velocity on the right was slightly slow but not significantlydifferent from that on the left, which fell within normal limits. Distal latencies, response amplitudes and conduction velocities were normal in the ulnar nerves to both abductor digiti minimi and first dorsal interosseus bilaterally. Needle EMG examination disclosed normal spontaneous activity in the biceps, triceps, pronator teres, extensor indicis proprius, first dorsal interosseus and abductor pollicis brevis bilaterally. Motor unit potential recruitment was slightly decreased in the left abductor pollicis brevis, where there were occasional enlarged potentials. Motor unit potential recruitment and morphology were normal in all other muscles examined. 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 Clinical correlation is advised. Doni Cho MD Location: Testing was conducted at [facility] as an outpatient. documented in this [facility]05-08-2025 Evaluation note* Diagnosis Onset Date Resolution Status Admit Date Ischemic colitis acute July 12, 2024 9:42am [facility] Work Phone: [phone]) 815-303005-08-2025 Evaluation note* Diagnosis Onset Date Resolution Status Admit Date Ischemic colitis acute July 12, 2024 9:42am Hypotension acute August 30 2:25pm Paroxysmal A-fib acute August 2:25pm Presence of cardiac pacemaker acute August 30, 2024 2:25pm Atherosclerosis of barrow coronary artery of barrow heart without angina chronic August 30, 2024 2:25pm Bradycardia chronic August 30 2:25pm [facility] Work Phone: [phone]) 959-234005-08-2025 Evaluation note* Diagnosis Onset Date Resolution Status Admit Date Ischemic colitis acute July 12, 2024 9:42am Hypotension acute August 30 2:25pm Paroxysmal A-fib acute August 2:25pm Presence of cardiac pacemaker acute August 30, 2024 2:25pm Atherosclerosis of barrow coronary artery of barrow heart without angina chronic August 30, 2024 2:25pm Bradycardia chronic August 30 2:25pm Hypotension acute September 27 11:19am Paroxysmal A-fib acute September 11:19am Presence of cardiac pacemaker acute September 27, 2024 11:19am Atherosclerosis of barrow coronary artery of barrow heart without angina chronic September 27, 2024 11:19am Bradycardia chronic September 27 11:19am [employer] Work Phone: 1(554) 620-904004-04-2025 Hospital Discharge instructions Patient Education 06/08/2024 15:06:07 Moderate Conscious Sedation, Adult, Care After Moderate Conscious Sedation, Adult, Care After These instructions provide you with information about caring for yourself after your procedure. Your health care provider may also give you more specific instructions. Your treatment has been plannedaccording to current medical practices, but problems sometimes occur. Call your health care provider if you have any problems or questions after your procedure. What can I expect after the procedure? After your procedure, it is common: To feel sleepy for several hours. To feel clumsy and have poor balance for several hours. To have poor judgment for several hours. To vomit if you eat too soon. Follow these instructions at home: For at least 24 hours after the procedure: Do not: ?Participate in activities where you could fall or become injured. ?Drive. ?Use heavy machinery. ?Drink alcohol. ?Take sleeping pills or medicines that cause drowsiness. ?Make important decisions or sign legal documents. ?Take care of children on your own. Rest. Eating and drinking Follow the diet recommended by your health care provider. If you vomit: ?Drink water, juice, or soup when you can drink without vomiting. ?Make sure you have little or no nausea before eating solid foods. General instructions Have a responsible adult stay with you until you are awake and alert. Take [id number] and prescription medicines only as told by your health care provider. If you smoke, do not smoke without supervision. Keep all follow-up visits as told by your health care provider. This is important. Contact a health care provider if: You keep feeling nauseous or you keep vomiting. You feel light-headed. You develop a rash. You have a fever. Get help right away if: You have trouble breathing. This information is not intended to replace advice given to you by your health care provider. Make sure you discuss any questions you have with your health care provider. Document Released: 12/12/2013 Document Revised: 02/03/2018 Document Reviewed: 06/12/2016 [employer] Patient Education 2020 [employer]. 06/08/2024 15:06:04 3- Peripheral angioplasty//stent 04/2019 (CUSTOM) PERIPHERAL ANGIOPLASTY/STENTING Discharge Instructions This information has been developed to provide you with written guidelines to supplement the verbalinstructions your doctor has reviewed with you. It is very important that you follow any additionalinstructions your doctor has provided. 1.Home instructions: An adult must stay with you overnight. Relax for 24 hours, keeping legs elevated. Drink plenty of fluids to flush out your kidneys. Resume your regular diet. Villa a bandage on the insertion site for a day. Avoid strenuous exercise of lifting anything over 10 pounds for at least 2 days. Do not take a bath or shower for at least [address] not [address] for 3 days 2.Discomfort, swelling and bruising are expected at the incision site. Watch the groin area where the catheter was inserted for such things as, but not limited to: redness, swelling, pus or red streaks running down the leg. If any concerns, notify our office at [phone]. 3.If bleeding is noted through the bandage: Lie flat and apply pressure for 10 to 15 minutes. If the bleeding does not stop, or if your foot feels numb, cold or turns blue, go to the Emergency Department immediately. 4.If you do not have an arranged appointment, please call the office upon discharge at and make an appointment to see the doctor in 2 weeks. 5.If you have concern after regular office hours, you can reach the doctor by calling . Follow all instructions given to you by your doctor Follow Up Care 05/18/2024 13:13:17 With:REFUGIO GARCIA MD, [facility], Surgery, Vascular Surgeons Address: [facility] [address] [place] [address] [address] [place] [address] When: Unknown Comments:Follow-up as scheduled [facility] 04-04-2025 Summary of episode note Discharge Instructions Thank you for allowing [facility] to assist you with your healthcare needs. The following is importantdischarge information regarding your hospital visit. Your Care Team DANAE TRACEY What to do next Follow Up Appointments Follow Up with REFUGIO GARCIA MD, [facility], Surgery, Vascular Surgeons Where:[facility] [address] [facility] [address] [place] [address] Additional Information: Follow-up as scheduled Allergies Glutens Lipitor Neosporin Niaspan ER Wheat atorvastatin ciprofloxacin metroNIDAZOLE penicillin regadenoson sulfa drug Medications Please ask your primary doctor or pharmacist before taking any other medication not listed, including over the counter drugs, herbal medications, vitamins and or supplements as they may interact withyour home medications. What How Much When Instructions Last Dose Unchanged acetaminophen (acetaminophen 325 mg oral capsule) 2 cap by mouth Every 6 hours as needed for as needed for pain Unchanged acetaminophen (acetaminophen 325 mg oral capsule) 2 cap by mouth Every 6 hours as needed for as needed for fever Unchanged aspirin (aspirin 81 mg oral tablet, chewable) 1 tab(s) by mouth Every day Unchanged dicyclomine (dicyclomine 20 mg oral tablet) 1 tab(s) by mouth Three (3) times a day Unchanged folic acid (folic acid 1 mg oral tablet) 1 tab(s) by mouth Once a day Unchanged gabapentin (gabapentin 100 mg oral capsule) 2 cap by mouth Three (3) times a day Unchanged hydrocortisone topical (Hydrocortisone 1% cream) 1 application Topical Two (2) times a day as needed for Itching Unchanged isosorbide mononitrate (isosorbide mononitrate 30 mg oral tablet, extended release) 1 tab(s) by mouth Once a day (in the morning) Unchanged ketoconazole topical (ketoconazole 1% topical shampoo) 1 application Topical Unchanged lisinopril (lisinopril 5 mg oral tablet) 1 tab(s) by mouth Every day Unchanged loperamide (loperamide 2 mg oral tablet) 1 tab(s) by mouth Every 6 hours as needed for Loose stool Unchanged loratadine (loratadine 10 mg oral tablet) 1 tab(s) by mouth Once a day Unchanged metoprolol (Metoprolol Tartrate 25 mg oral tablet) 0.5 tab(s) by mouth Two (2) times a day Unchanged montelukast (montelukast 10 mg oral tablet) 1 tab(s) by mouth Once a day (in the evening) Unchanged nitroGLYcerin (Nitrostat 0.4 mg sublingual tablet) 1 tab(s) under the tongue Every 5 minutes as needed for for chest pain Unchanged ondansetron (Zofran 4 mg oral tablet) 1 tab(s) by mouth Every 8 hours as needed for Nausea/Vomiting Unchanged oxybutynin (oxybutynin 5 mg oral tablet) 1 tab(s) by mouth Once a day Unchanged pantoprazole (pantoprazole 40 mg oral enteric coated tablet) 1 tab(s) by mouth Once a day before a meal Unchanged pravastatin (pravastatin 80 mg oral tablet) 1 tab(s) by mouth Daily at bedtime Unchanged warfarin (warfarin 3 mg oral tablet) 1.5 tab(s) by mouth Every day Please take this list to your next doctor s visit. Bring all medications you take, including over the counter medications, herbals and other supplements with you to your doctor s visit. Patients and families are reminded to discard old lists and to update any records with all medication providers or retail pharmacies. Education Materials Moderate Conscious Sedation, Adult, Care After These instructions provide you with information about caring for yourself after your procedure. Your health care provider may also give you more specific instructions. Your treatment has been plannedaccording to current medical practices, but problems sometimes occur. Call your health care provider if you have any problems or questions after your procedure. What can I expect after the procedure? After your procedure, it is common: To feel sleepy for several hours. To feel clumsy and have poor balance for several hours. To have poor judgment for several hours. To vomit if you eat too soon. Follow these instructions at home: For at least 24 hours after the procedure: Do not: ? Participate in activities where you could fall or become injured. ? Drive. ? Use heavy machinery. ? Drink alcohol. ? Take sleeping pills or medicines that cause drowsiness. ? Make important decisions or sign legal documents. ? Take care of children on your own. Rest. Eating and drinking Follow the diet recommended by your health care provider. If you vomit: ? Drink water, juice, or soup when you can drink without vomiting. ? Make sure you have little or no nausea before eating solid foods. General instructions Have a responsible adult stay with you until you are awake and alert. Take [id number] and prescription medicines only as told by your health care provider. If you smoke, do not smoke without supervision. Keep all follow-up visits as told by your health care provider. This is important. Contact a health care provider if: You keep feeling nauseous or you keep vomiting. You feel light-headed. You develop a rash. You have a fever. Get help right away if: You have trouble breathing. This information is not intended to replace advice given to you by your health care provider. Make sure you discuss any questions you have with your health care provider. Document Released: 12/12/2013 Document Revised: 02/03/2018 Document Reviewed: 06/12/2016 [employer] Patient Education 2020 [employer]. PERIPHERAL ANGIOPLASTY/STENTING Discharge Instructions This information has been developed to provide you with written guidelines to supplement the verbalinstructions your doctor has reviewed with you. It is very important that you follow any additionalinstructions your doctor has provided. 1. Home instructions: An adult must stay with you overnight. Relax for 24 hours, keeping legs elevated. Drink plenty of fluids to flush out your kidneys. Resume your regular diet. Villa a bandage on the insertion site for a day. Avoid strenuous exercise of lifting anything over 10 pounds for at least 2 days. Do not take a bath or shower for at least [address] not drive for 3 days 2. Discomfort, swelling and bruising are expected at the incision site. Watch the groin area where thecatheter was inserted for such things as, but not limited to: redness, swelling, pus or red streaksrunning down the leg. If any concerns, notify our office at [phone]. 3. If bleeding is noted through the bandage: Lie flat and apply pressure for 10 to 15 minutes. If the bleeding does not stop, or if your foot feels numb, cold or turns blue, go to the Emergency Department immediately. 4. If you do not have an arranged appointment, please call the office upon discharge at and make an appointment to see the doctor in 2 weeks. 5. If you have concern after regular office hours, you can reach the doctor by calling . Follow all instructions given to you by your doctor Additional Information VACCINATE! IT SAVES LIVES! Members of the community who have not yet received the COVID-19 vaccine and would like to receive it can visit one of [facility] vaccine clinics. There are many vaccine clinic locations within the [facility]. For locations and available times, please visit [email or web address].coronavirus.[place].gov/. It is important to note that some COVID mobile vaccine clinics are held outdoors and may be canceled in rainy or stormy conditions. To learn more about pediatric vaccinations (ages 5-11), we invite you to visit the [facility] webpage. https://www.[employer].org/pages/3359-Udaar-Cwmtdphwbei-Jihmkyhyto-Qmnqe-Qwu stions.htmlTo learn more about the COVID-19 vaccine, we invite you to visit the CDC website for a list of frequently asked questions.https://www.cdc.gov/coronavirus/2019-ncov/vaccines/faq.html NextUser Patient Portal Access Instructions: Stay connected with your healthcare team and access your personal medical information anytime with the NextUser Patient Portal. Please follow the directions below to create your NextUser account: 1.Access the email account you provided upon registration to the hospital/physician office.2.Look for an invitation email from [facility].3.Open the email and access the invitation link: AcceptInvitation to NextUser.4.Fill in the required rider to create your account. To access your account, visit [facility]/BexOneChart. Click the blue button labeled Access Patient Portal and then log in with the username and password that you created in the steps above. You will be able to view your test results, lab results, a summary of your visits, upcoming appointments and more. There is also a convenient messaging option where you can send secure messages to your p rovider. In addition, you will have the ability to download any documents or summaries to your computer and/or send the information securely to a physician. Remember that your healthcare information is confidential, so carefully consider who you will allowto register on the [facility] One[facility] Patient Portal for access to your information. You can also access the [facility] Patient Portal on the [place] [facility] rené. Simply click on Patient Portal and then log into your account. If you would like to receive a full copy of your medical records, please contact the [facility] Medical Records Department by calling [phone], Tuesday through Tuesday between 8 a.m. and 4:30 p.m. HOW TO SAFELY DISPOSE OF PRESCRIPTION MEDICATIONS Please use one of the following methods to safely dispose of your unused medications. 1.Use a drug disposal kit: the drug disposal pouch allows you to safely discard your old and unuseddrugs. Ask your nurse to give you one when you are discharged.2.Visit a local take-back location: Many local pharmacies and police departments have programs that collect old and unwanted prescriptiondrugs. Call your local pharmacy or go to http://HealthCrowd/6L1Da6n to find one close to you.3.Make use of household items: Use cat litter or old coffee grounds to dispose medications if other options arenot available. Mix your drugs with these household products, seal them in an airtight container andthrow it into the garbage. Call [facility]: [phone] to be sure your drugs can be disposed of in this way. Some medicines may require a different approach.4.Never flush your medications down the toilet. IF YOU HAVE BEEN PRESCRIBED AN OPIOID FOR PAIN If you have been prescribed an opioid (such as hydrocodone, oxycodone or morphine), it is critical to understand the possible side effects and risks of opioid pain medications. Even when taken as directed, opioids can have several side effects including: Tolerance, meaning you might need to take more of a medication for the same pain relief. Nausea, vomiting and/or constipation. Sleepiness, dizziness, dry mouth, confusion, depression or itching. Physical dependence, meaning you have withdrawal symptoms when a medication is stopped, can develop within a few days. KNOW YOUR RESPONSIBILITIES It is important to know exactly how much and how often to take the opioid pain medications you are prescribed. Never take opioids in higher amounts or more often than prescribed. Do not combine opioids with alcohol or other drugs that cause drowsiness, such as benzodiazepines, also known as benzos, including diazepam and alprazolam, muscle relaxants or sleep aids. Never sell or share prescription opioids. This is illegal. Store opioids in a secure place and out of reach of others (including children, family, friends and visitors). The last page of this document has been signed and retained as a CHART COPY. Signatures Patient Education Materials Moderate Conscious Sedation, Adult, Care After 3- Peripheral angioplasty//stent 04/2019 (CUSTOM) Medication Leaflets My discharge plan and instructions have been reviewed and explained to me and I,DIVYA JOSEPH understand my current condition and have read and understand these discharge instructions. I have received a written copy of the plan/instructions. If I have questions, I am aware that I should contact my d octor. 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 [id number] Procedure note [facility] Pulmonary Services/Neurology [address] [place] [address] MR#: [id number] Acct: [id number] Name: DIVYA JOSEPH Rep #:[id number] : 1950 74 From: Marah Hopson MD Referring Dr: Status: REG Jono VEGA Location: [facility] Date: 06/06/24 Sex: F C NCS and/or EMG Patient Report Ordering Doctor: Rosetta Luque DATE OF SERVICE: 06/06/24 Divya presents with complaints of numbness and tingling in the feet and poor balance. Electrodiagnostic findings: Left peroneal motor nerve demonstrates normal distallatency with reduced amplitude and reduced conduction velocity. Right peroneal motor nerve demonstrates normal distal latency and amplitude with reduced conduction velocity. Left tibial motor nerve demonstrates normal distal latency, amplitude and conduction velocity right tibial motor nerve demonstratesnormal distal latency, amplitude and conduction velocity. Prolonged left peroneal, right peroneal and right tibialand left tibial F?waves. H?reflexes prolonged bilaterally. Sensory responses are not obtainable. Needle EMG testing was performed in the lower limbs. All muscles tested showed no evidence of denervation with normal motor unit action potentials. Electrodiagnostic impression: This is an abnormal study in the lower limbs. 1. Electrodiagnostic findings suggestive of peripheral polyneuropathy, sensory greater than motor, with evidence of demyelination. 2. No electrodiagnostic evidence for cervical radiculopathy. Multi Select Codes Neurology Neurology Interp Codes: 57951-80 Musc test done w/n test comp (interp) (2) and 09857-45 Nrv cndj test 9-10 studies (interp) 06/06/24 1314 D> Date _ Marah Hopson MD CC: Dr. Marah Hopson MD; Dr. Rosanne Waddell DO; ROSETTA Garsia Date Dictated: 06/06/24 1310 Date Transcribed: 06/06/24 131 Jig Maker: IMELDA Marquis [facility]10-08-2024 [facility] Medical Records Department [address] [place] [id number] Discharge Summary 12/13/23 1234 MR#: [id number] Acct: [id number] Name: DIVYA JOSEPH Rep #: [id number] : 1950 73 From: Radha Orozco MD PCP: Dr. Erasmo Pierre MD Status:ADM DEBI Location: [place] [address] Providers Date of Admission: 12/09/23 Date of Discharge: 12/13/23 Primary Care Physician: Dr. Erasmo Pierre MD Reason For Visit: WEAKNESS, DEBILITY, UNSTEADY GAIT Diagnosis Discharge Diagnosis (1) Generalized weakness: Status: Acute Code(s): R53.1 - Weakness Plan #Debility and weakness due to mechanical fall #History of paroxysmal A-fib/history of pacemaker with sick sinus syndrome #GERD Medications at Discharge Home Medications aspirin 81 mg chewable tablet 81 mg PO DAILY@0800 health maintenance 08/18/18 montelukast 10 mg tablet 10 mg PO QPM allergy 02/22/19 handicap placard #1 ea 10/13/20 fesoterodine 4 mg tablet,extended release 24 hr (Toviaz) 4 mg PO DAILY 02/23/22 potassium chloride 10 mEq tablet,extended release(part/cryst) See Rx Instructions .Route .COMPLEX #60 tabs 03/31/23 enalapril maleate 2.5 mg tablet 2.5 mg PO DAILY #90 tabs 06/29/23 pantoprazole 40 mg tablet,delayed release 40 mg PO DAILY stomach #90 tabs 06/29/23 pravastatin 80 mg tablet 80 mg PO QHS #90 tabs 07/08/23 isosorbide mononitrate 30 mg tablet,extended release 24 hr 30 mg PO DAILY #90 tabs 07/14/23 cetirizine 10 mg tablet (Allergy Relief (cetirizine)) 10 mg PO DAILY 11/17/23 dicyclomine 20 mg tablet 20 mg PO TID #270 tabs 11/22/23 ketoconazole 2 % shampoo 1 applic topical .twice a week sores 12/09/23 magnesium 250 mg tablet 420 mg PO BID supplement 12/09/23 nitroglycerin 0.4 mg sublingual tablet 0.4 mg sublingual Q5-15M Chest Pain 12/09/23 metoprolol tartrate 25 mg tablet 12.5 mg (1/2 x 25 mg) PO BID #30 tabs 12/13/23 warfarin 2.5 mg tablet 2.5 mg PO DAILY blood thinner 30 days #0 tabs 12/13/23 Hospital Course Summary of Care Provided Minutes Spent on Discharge: 26 Hospital Course: 73-year-old female presented 12/08 with weakness and fall. She went to get out of her bed and her knees gave way and she fell. Has progressively gotten weaker over the past few months and is being worked up for Alzheimer's dementia on outpatient basis. Roughly 7 falls in 3 months. Aside from weakness she had no focal complaints. She was given IV fluids and UA was concerning for possible UTI so she was started on Rocephin. Patient did improve somewhat with her weakness but continued to have overall difficulties and it was deemed she would benefit from residential facility. Patient was agreeable. On day of discharge reports still feeling little bit weak overall but better than when she came in, has no new or acute focal complaints. Ucx grew mixed gram positive organisms indicative of a contaminant and given patient never had any symptoms antibiotics to be stopped. Suspect patient felt somewhat better given the IV fluids, there is no other identifiable nidus of infection or localizing symptoms that would warrant continuation of antibiotics. During patient's hospitalization additionally her Coumadin was adjusted, will need repeat INR in 2 to 3 days. Physical Exam Narrative General: Wakes up, conversive HEENT: Atraumatic Eyes: Anicteric, normal conjunctiva, extraocular movements grossly intact Neck: Supple Respiratory: Clear to auscultation bilaterally, normal respiratory effort Cardiovascular: Regular rate GI: Soft, nontender, nondistended Extremities: No edema Musculoskeletal: Moving all extremities Neuro: No overt focal neurological deficits Skin: No rashes appreciated Psych: Cooperative Weight / BMI Weight Weight: 64.7 kg Body Mass Index (BMI) 25.2 ABG / Lab / Microbiology Data 12/13/23 05:19 12/13/23 05:19 Laboratory: Laboratory Results - last 24 hr 12/13/23 05:19: WBC 6.8, RBC 4.46, Hgb 13.5, Hct 42.8, MCV 96.0, MCH 30.3, MCHC 31.5 L, RDW Std Deviation 49.3 H, RDW Coeff of Neymar 14.1, Plt Count 201, MPV 11.8, PT 18.6 H, INR 1.6, Sodium 134 L, Potassium 3.8, Chloride 102, Carbon Dioxide 26.0, Anion Gap 6, BUN 9, Creatinine 0.69, Estim Creat Clear Calc 56.67, Est GFR (MDRD) Af Amer 107, Est GFR (MDRD) Non-Af 88, BUN/Creatinine Ratio 13.0, G lucose 119 H, Calcium 8.9 Microbiology: Microbiology 12/11/23 04:41 Urine, Clean Catch Urine Culture - Final Mixed Gram Positive Organisms D/C Instructions Discharge Diet: - (DASH diet) Discharge Activity: - (Increase activity as tolerated) Meaningful Use Info Meaningful Use Meaningful Use Diagnoses (Choose all that apply): None applicable Ischemic Stroke Statin Dosing Therapy Reference: STATIN DOSE THERAPY REFERENCE: * Patients > 75 years receive moderate or high dose statin therapy. * Patients 75 years or YOUNGER should r (more content not included)...[facility]03-21-2024 [facility] Miscellaneous Notes* Telephone Encounter - Evelyn Wood MD - 06/24/2021 12:00 PM EDT Noted. Has only been seen here once and not for 3 years or so. Can get from PCP or needs to schedule. Thanks. Evelyn Wood MD * Telephone Encounter - Farheen Lozano RN - 06/24/2021 11:50 AM EDT We have not seen patient in office since 2018. Patient mad an appointment in 02/2020 for annual andcancelled. Attempted to call patient but phone number has been disconnected. Patient has not returned phone call after last refill to schedule [facility]Reason for visit Narrative* Chief Complaint 3 MO REMOTE CK COVID-19 3 mos remote PPM f/u gi bleed Reason for Visit Paroxysmal A-fib Presence of cardiac pacemaker Sick sinus syndrome COVID-19 Paroxysmal A-fib Presence of cardiac pacemaker Sick sinus syndrome [facility] Work Phone: Evaluation + Plan note No data available for this section [facility] Evaluation note* Diagnosis Onset Date Resolution Status Paroxysmal A-fib acute Presence of cardiac pacemaker acute Sick sinus syndrome acute CADE (dyspnea on exertion) [place] [id number] chronic [facility] Work Phone: Evaluation note* Diagnosis Onset Date Resolution Status Paroxysmal A-fib acute Presence of cardiac pacemaker acute Sick sinus syndrome acute COVID-19 acute Paroxysmal A-fib acute Presence of cardiac pacemaker acute Sick sinus syndrome acute [facility] Work Phone: Evaluation note* Diagnosis Onset Date Resolution Status Paroxysmal A-fib acute Presence of cardiac pacemaker acute Sick sinus syndrome acute Ischemic colitis acute [id number] [facility] Work Phone: Evaluation note* Diagnosis Onset Date Resolution Status Ischemic colitis acute [id number] chronic Paroxysmal A-fib acute Presence of cardiac pacemaker acute Sick sinus syndrome acute Bradycardia [facility] Work Phone: Evaluation note* Diagnosis Onset Date Resolution Status Presence of cardiac pacemaker acute Sick sinus syndrome acute [facility] Work Phone: Evaluation note* Diagnosis Onset Date Resolution Status Paroxysmal A-fib acute Presence of cardiac pacemaker acute Sick sinus syndrome acute Ischemic colitis acute CADE (dyspnea on exertion) [place] [id number] [facility] Work Phone: Evaluation note* Diagnosis Onset Date Resolution Status Ischemic colitis acute CADE (dyspnea on exertion) [place] [id number] [facility] Work Phone: Evaluation note* Diagnosis Onset Date Resolution Status CADE (dyspnea on exertion) [place] [id number] [facility] Work Phone: Evaluation note* Diagnosis Onset Date Resolution Status CADE (dyspnea on exertion) [place] [id number] chronic Pacemaker malfunction acute Paroxysmal A-fib acute residential current use of anticoagulant [facility] Work Phone: Evaluation note* Diagnosis Onset Date Resolution Status CADE (dyspnea on exertion) [place] [id number] chronic Pacemaker malfunction acute Paroxysmal A-fib acute residential current use of anticoagulant chronic Paroxysmal A-fib acute Presence of cardiac pacemaker acute Sick sinus syndrome acute [facility] Work Phone: Evaluation note* Diagnosis Onset Date Resolution Status Pacemaker malfunction acute Paroxysmal A-fib acute residential current use of anticoagulant chronic Paroxysmal A-fib acute Presence of cardiac pacemaker acute Sick sinus syndrome acute [facility] Work Phone: Evaluation note* Diagnosis Onset Date Resolution Status Pacemaker malfunction acute Paroxysmal A-fib acute 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 chronic Paroxysmal A-fib acute Presence of cardiac pacemaker acute Sick sinus syndrome acute Pacemaker malfunction acute Paroxysmal A-fib acute Ischemic colitis acute [facility] Work Phone: evaluation noteNo assessment information available [facility] Work Phone: evaluation note* Diagnosis Carpal tunnel syndrome, bilateral upper limbs documented in this encounter [facility] note* Diagnosis Carpal tunnel syndrome, bilateral upper limbs- Primary documented in this encounter [facility] note* Diagnosis Acute chest pain- Primary Unspecified chest pain documented in this encounter [facility] note* Diagnosis Transient alteration of awareness- Primary Transient alteration of awareness Sepsis with acute hypoxic respiratory failure without septic shock, due to unspecified organism (HCC) Lower urinary tract infectious disease Urinary tract infection, site not specified Acute deep vein thrombosis (DVT) of calf muscle vein of both lower extremities (HCC) documented in this encounter [facility] Discharge instructions Additional Instructions Take the Cipro as prescribed. This may interact with your Coumadin. Continue to monitor your pro time and INR. Follow-up with your primary care physician to get your INR rechecked in 3 days. Watch for worsening bleeding. Do not drink alcohol while taking Flagyl.[facility] Work Phone: Reqzgn for referral (narrative)No reason for referral information availableWSalem [facility] Work Phone: Reohau for visit Narrative* Hospital - Outpatient (Routine) - Closed Specialty Diagnoses / Procedures Referred By Hever atkins Referred To Contact Neurology Diagnoses Carpal tunnel syndrome, bilateral upper limbs Procedures Nerve conduction test with EMG Tom Gracia PA-C [address] [place] [address] Phone: tel: fax: Referral ID Status Reason Start Date Expiration Date Visits Re quested Visits Authorized [id number] Closed 07/13/2024 07/08/2025 1 1 [facility] Health Summary Purpose Family History No Family History Records Found Relationship Condition Age at Onset Recorded Date/T sarkis mother Cerebrovascular accident (CVA) Unknown Coronary artery disease Unknown Advance Directives No Advanced Directives Records Found Advance Directive Response Recorded Date/ Time Name of Medical Power of Sales Attendant sisteer May 07, 2021 12:40pm Advance Directives Yes August 18 3:30pm Living Will Yes May 07, 2021 12:40pm Power of Sales Attendant Yes May 07 12:40pm Advance Directive Response Recorded Date/ Time Advance Directives Yes August 18 3:30pm Living Will Yes May 07, 2021 12:40pm Power of Sales Attendant Yes May 07 12:40pm Advance Directive Response Recorded Date/ Time Name of Medical Power of Sales Attendant [facility] January 14, 2022 8:51am Advance Directives Yes August 18 2:30pm Living Will Yes January 14 8:51am Power of Sales Attendant Yes January 14, 2022 8:51am Advance Directive Response Recorded Date/ Time Advance Directives Yes August 18 3:30pm Living Will Yes April 13 4:55pm Power of Sales Attendant Yes April 13, 2022 4:55pm Advance Directive Response Recorded Date/ Time Name of Medical Power of Sales Attendant April 13, 2022 4:55pm Advance Directives Yes August 18 3:30pm Living Will Yes April 13 4:55pm Power of Sales Attendant Yes April 13, 2022 4:55pm Advance Directive Response Recorded Date/ Time Name of Medical Power of Sales Attendant [facility] December 13, 2022 10:25am Name of Medical Power of Sales Attendant [facility] (brother) December 02, 2022 12:23pm Name of Medical Power of Sales Attendant POA, brother and sister in law December 30, 2022 2:36pm Advance Directives Yes August 18 2:30pm Living Will No December 30 2:37pm Power of Sales Attendant No December 30, 2022 2:37pm Advance Directive Response Recorded Date/ Time Name of Medical Power of Sales Attendant [facility] December 13, 2022 10:25am Name of Medical Power of Sales Attendant POA, brother and sister in law December 30, 2022 2:36pm Advance Directives Yes August 18 2:30pm Living Will No December 30 2:37pm Power of Sales Attendant No December 30, 2022 2:37pm Advance Directive Response Recorded Date/ Time Advance Directives Yes August 18 3:30pm Living Will No December 30 3:37pm Power of Sales Attendant No December 30, 2022 3:37pm Advance Directive Response Recorded Date/ Time Advance Directives No May 19, 11:23am Living Will No May 20, 2023 11:23am Power of Sales Attendant No May 19 11:23am Advance Directive Response Recorded Date/ Time Advance Directives on File Yes May 23, 2023 12:18pm Name of Medical Power of Sales Attendant Rey Fagan May 23, 2023 12:18pm Advance Directives Yes May 22 12:18pm Living Will Yes May 23, 2023 12:18pm Power of Sales Attendant Yes May 22 12:18pm Advance Directive Response Recorded Date/ Time Advance Directives Yes May 22 12:18pm Advance Directive Response Recorded Date/ Time Living Will Yes May 23, 2023 12:18pm Do you have a Healthcare Power of Sales Attendant? Yes May 23, 2023 12:18pm Advance Directives Yes May 22 12:18pm Advance Directive Response Recorded Date/ Time Living Will Yes May 23, 2023 12:18pm Do you have a Healthcare Power of Sales Attendant? Yes May 23, 2023 12:18pm Do you have a Healthcare Power of Sales Attendant? Yes November 09, 2024 7:05pm Advance Directives Yes May 22 12:18pm Date Activated Date Inactivated Comments 11/13/2024 5:45 PM 11/20/2024 1:32 AM Chief Complaint and Reason for Visit Chief Complaint HYPERTENSION PACER CK / MMM 1:30 1 YR F/U / MANUELITO 1:00 AORTIC ATHEROSCLEROSIS Reason for Visit Paroxysmal A-fib Presence of cardiac pacemaker Sick sinus syndrome CADE (dyspnea on exertion) [id number] Chief Complaint PACER CK / MMM 1:30 1 YR F/U / MANUELITO 1:00 AORTIC ATHEROSCLEROSIS SCREENING Reason for Visit Paroxysmal A-fib Presence of cardiac pacemaker Sick sinus syndrome CADE (dyspnea on exertion) [id number] Chief Complaint 3 mos remote PPM f/u gi bleed ER FU COLITIS 9 M FU NICOTINE DEP Reason for Visit Paroxysmal A-fib Presence of cardiac pacemaker Sick sinus syndrome Ischemic colitis [id number] Chief Complaint ER FU COLITIS 9 M FU NICOTINE DEP 3 mos remote PPM f/u DECREASED PEDAL PULSES Reason for Visit Ischemic colitis [id number] Paroxysmal A-fib Presence of cardiac pacemaker Sick sinus syndrome Bradycardia Chief Complaint DECREASED PEDAL PULS ES 3 mos remote PPM f/u CAROTID STENOSIS, BLE PVD Reason for Visit Presence of cardiac pacemaker Sick sinus syndrome Chief Complaint 3 mos remote PPM f/u chest pain DIZZINESS cough, copd gi bleed ER FU SOB--SEE NOTES EORDERS Reason for Visit Paroxysmal A-fib Presence of cardiac pacemaker Sick sinus syndrome Ischemic colitis CADE (dyspnea on exertion) [id number] Chief Complaint 3 mos remote PPM f/u chest pain DIZZINESS cough, copd gi bleed ER FU SOB--SEE NOTES EORDERS DYSPNEA Pacer Check Remote DYSPNEA Amb Documentation Reason for Visit Paroxysmal A-fib Presence of cardiac pacemaker Sick sinus syndrome Ischemic colitis CADE (dyspnea on exertion) [id number] Chief Complaint DIZZINESS cough, copd gi bleed ER FU SOB--SEE NOTES EORDERS Pacer Check Remote DYSPNEA DYSPNEA Amb Documentation E-ORDER Reason for Visit Ischemic colitis CADE (dyspnea on exertion) [id number] Chief Complaint SOB--SEE NOTES EORDERS Pacer Check Remote DYSPNEA DYSPNEA Amb Documentation E-ORDER Reason for Visit CADE (dyspnea on exer tion) [id number] Chief Complaint SOB--SEE NOTES EORDERS Pacer Check Remote DYSPNEA DYSPNEA Amb Documentation E-ORDER sees LOAN OFFICER @ 1:15, DO NOT INTERROGATE 1 y fu PREV PFM PT PPM @ 1pm. 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 Advisory Reason for Visit CADE (dyspnea on exer tion) [id number] Pacemaker malfunction Paroxysmal A-fib residential current use of anticoagulant Chief Complaint SOB--SEE NOTES EORDERS Pacer Check Remote DYSPNEA DYSPNEA Amb Documentation E-ORDER Pacer Check Remote sees LOAN OFFICER @ 1:15, DO NOT INTERROGATE 1 y fu PREV PFM PT PPM @ 1pm. 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 Advisory LOSS OF BATTERY OUTPUT Dysphagia, unspecified Personal history of nicotine dependence 1 wk s/p PPM generator change wound check Reason for Visit Pacemaker malfunctio n Paroxysmal A-fib residential current use of anticoagulant Paroxysmal A-fib Presence of cardiac pacemaker Sick sinus syndrome Chief Complaint E-ORDER Pacer Check Remote sees LOAN OFFICER @ 1:15, DO NOT INTERROGATE 1 y fu PREV PFM PT PPM @ 1pm. 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 Paroxysmal A-fib Presence of cardiac pacemaker Sick sinus syndrome Pacemaker malfunction Paroxysmal A-fib Ischemic colitis Chief Complaint Admit Date Atherosclerosis of barrow arteries of ex tremities February 16, 2024 2:29pm Pacer Check Remote February 20, 2024 11:55am Pacer Check Remote May 11, 2024 4:31 am BLE; POLYNEUROPATHY, NUMBNESS June 06, 2024 8:29am BLE; POLYNEUROPATHY, NUMBNESS June 06, 2024 1:10pm Chief Complaint Admit Date Pacer Check Remote May 11, 2024 4:31 am BLE; POLYNEUROPATHY, NUMBNESS June 06, 2024 8:29am BLE; POLYNEUROPATHY, NUMBNESS June 06, 2024 1:10pm 1 Y FU July 12, 2024 9:42am Pacer Check Remote August 10, 2024 4:31a m Reason for Visit Admit Date Ischemic colitis July 12, 2024 9:42am Chief Complaint Admit Date Pacer Check Remote May 11, 2024 4:31 am BLE; POLYNEUROPATHY, NUMBNESS June 06, 2024 8:29am BLE; POLYNEUROPATHY, NUMBNESS June 06, 2024 1:10pm 1 Y FU July 12, 2024 9:42am Pacer Check Remote August 10, 2024 4:31a m 1 Y FU/MOVED FROM [facility] August 30, 2024 2: 25pm Reason for Visit Admit Date Ischemic colitis July 12, 2024 9:42am Hypotension August 30, 2024 2:25 pm Paroxysmal A-fib August 30, 2024 2:25 pm Presence of cardiac pacemaker August 30, 2024 2:25pm Atherosclerosis of barrow co ronary artery of barrow heart without angina August 30, 2024 2:25pm Bradycardia August 30, 2024 2:25 pm Chief Complaint Admit Date BLE; POLYNEUROPATHY, NUMBNESS June 06, 2024 8:29am BLE; POLYNEUROPATHY, NUMBNESS June 06, 2024 1:10pm 1 Y FU July 12, 2024 9:42am Pacer Check Remote August 10, 2024 4:31a m 1 Y FU/MOVED FROM [facility] August 30, 2024 2: 25pm 1 M FU September 27, 2024 11:1 9am Reason for Visit Admit Date Ischemic colitis July 12, 2024 9:42am Hypotension August 30, 2024 2:25 pm Paroxysmal A-fib August 30, 2024 2:25 pm Presence of cardiac pacemaker August 30, 2024 2:25pm Atherosclerosis of barrow co ronary artery of barrow heart without angina August 30, 2024 2:25pm Bradycardia August 30, 2024 2:25 pm Hypotension September 27, 2024 11:1 9am Paroxysmal A-fib September 27, 2024 11:1 9am Presence of cardiac pacemaker September 27, 2024 11:19am Atherosclerosis of barrow co ronary artery of barrow heart without angina September 27, 2024 11:19am Bradycardia September 27, 2024 11:1 9am Chief Complaint Admit Date 1 Y FU July 12, 2024 9:42am Pacer Check Remote August 10, 2024 4:31a m 1 Y FU/MOVED FROM [facility] August 30, 2024 2: 25pm 1 M FU September 27, 2024 11:1 9am fall November 09, 2024 6:58pm Chief Complaint Admit Date Pacer Check Remote August 10, 2024 4:31a m 1 Y FU/MOVED FROM [facility] August 30, 2024 2: 25pm 1 M FU September 27, 2024 11:1 9am Pacer Check Remote November 09, 2024 4:31am fall November 09, 2024 6:58pm Reason for Visit Admit Date Hypotension August 30, 2024 2:25 pm Paroxysmal A-fib August 30, 2024 2:25 pm Presence of cardiac pacemaker August 30, 2024 2:25pm Atherosclerosis of barrow co ronary artery of barrow heart without angina August 30, 2024 2:25pm Bradycardia August 30, 2024 2:25 pm Hypotension September 27, 2024 11:1 9am Paroxysmal A-fib September 27, 2024 11:1 9am Presence of cardiac pacemaker September 27, 2024 11:19am Atherosclerosis of barrow co ronary artery of barrow heart without angina September 27, 2024 11:19am Bradycardia September 27, 2024 11:1 9am Additional Source Comments INFORMATION SOURCE (unrecogn ized section and content) DATE CREATED AUTHOR 08/24/2017 [facility] julio [place] DATE CREATED AUTHOR AUTHOR'S ORGANIZ ATION 04/15/2021 [facility] DATE CREATED AUTHOR AUTHOR'S ORGANIZ ATION 06/21/2024 [facility] DATE CREATED AUTHOR AUTHOR'S ORGANIZ ATION 12/09/2024 [facility] DATE CREATED AUTHOR AUTHOR'S ORGANIZ ATION 12/27/2024 [facility] Source Comments (unrecognize d section and content) In the event this informatio n is protected by the Federal Confidentiality of Alcohol and Drug Abuse Patient Records regulations: The Federal rules restrict any use of the information to criminally investigate or prosecute any alcohol or drug abuse patient.[facility] Reason for Visit (unrecogniz ed section and content) Reason Comments Refill Request Reason Comments Chest Pain Reason Comments Altered Mental Status From [facility]. With AMS. Pt c/o of not feeling well. Pt with abd pain. Axo x 3 pt with temp of 100.3 Specialty Diagnoses / Procedures Referred By Contac t Referred To Contact Diagnoses Transient alteration of awareness Lower urinary tract infectious disease Acute deep vein thrombosis (DVT) of calf muscle vein of both lower extremities (HCC) Sepsis with acute hypoxic respiratory failure without septic shock, due to unspecified organism (HCC) Procedures .. Portia Cabrera MD [address] [facility] [address] [place] [address] Phone: tel: fax: [facility] Cardiac Progressive Care Unit [address] [place] [address] Phone: tel: Referral ID Status Reason Start Date Expiration Date Visits Re quested Visits Authorized [id number] Reason Onset Date Comments Other 12/10/2024 Care Teams (unrecognized sec tion and content) Hand Straightener Relationship Specialty Start Date End Date Giovanni Maureen Sonu [address] [id number] PCP - General Family Practice 06/29/12 Team Status: Active Member Role Status Dates Dr. Erasmo Pierre MD Family Provider Active Dr. Erasmo Pierre MD Primary Care Provider Active Team Status: Inactive Member Role Status Dates Dr. Erasmo Pierre MD Primary Care Provider, Referr ing Provider Active Camila Mcleod PA, PA Attending Provider Active Team Status: Inactive Member Role Status Dates Dr. Erasmo Pierre MD Primary Care Provider Active Amarilis Griffiths Active Dr. Tian Emery MD Attending Provider, Referring Provider Active Team Status: Active Member Role Status Dates Dr. Erasmo Pierre MD Primary Care Provider, Attend ing Provider Active Team Status: Inactive Member Role Status Dates Dr. Erasmo Pierre MD Primary Care Provider, Referr ing Provider Active Evelyn Medel CUSTOMER ORDER CLERK, CUSTOMER ORDER CLERK-C Attending Provider Active Team Status: Inactive Member Role Status Dates Dr. Erasmo Pierre MD Primary Care Provider Active Dr. Enrique Freeman DO Attending Provider, Emergency P milo Active Team Status: Active Member Role Status Dates Dr. Erasmo Pierre MD Primary Care Pr ovider, Attending Provider, Referring Provider Active Team Status: Inactive Member Role Status Dates Dr. Erasmo Pierre MD Primary Care Pr ovider, Attending Provider, Referring Provider Active Dr. Tian Emery MD Other Provider Active Team Status: Inactive Member Role Status Dates Dr. Erasmo Pierre MD Primary Care Pr ovider, Attending Provider, Referring Provider Active Team Status: Inactive Member Role Status Dates Dr. Erasmo Pierre MD Primary Care Provider, Referr ing Provider Active Amarilis Griffiths Attending Provider Active Team Status: Active Member Role Status Dates Dr. Erasmo Pierre MD Primary Care Provider Active Dr. Zhen Kirk DO Attending Provider Active Team Status: Inactive Member Role Status Dates Dr. Erasmo Pierre MD Primary Care Provider Active Dr. Refugio Garcia MD Attending Provider, Referring Provider Active Team Status: Inactive Member Role Status Dates Dr. Erasmo Pierre MD Primary Care Provider Active Amarilis Griffiths Active Dr. Quinn Pérez MD Attending Provider, Referring Pro vider Active Team Status: Inactive Member Role Status Dates Dr. rEasmo Pierre MD Primary Care Provider, Referr ing Provider Active Dr. Zhen Kirk DO Attending Provider Active Team Status: Inactive Member Role Status Dates Dr. Erasmo Pierre MD Primary Care Provider, Referr ing Provider Active Jordana Garcia CUSTOMER ORDER CLERK, CUSTOMER ORDER CLERK-C Attending Provider Active Team Status: Inactive Member Role Status Dates Dr. Erasmo Pierre MD Primary Care Provider Active Dr. Dayday Valdez MD Attending Provider, Emergency Provider Active Team Status: Inactive Member Role Status Dates Dr. Erasmo Pierre MD Primary Care Provider, Attend ing Provider Active Team Status: Inactive Member Role Status Dates Dr. Erasmo Pierre MD Primary Care Provider Active Dr. Alanna Kim MD Attending Provider, Emergency Provider Active Team Status: Inactive Member Role Status Dates Dr. Erasmo Pierre MD Primary Care Provider Active Jordana Garcia CUSTOMER ORDER CLERK, CUSTOMER ORDER CLERK-C Attending Provider, Referring P rovider Active Team Status: Active Member Role Status Dates Dr. Erasmo Pierre MD Primary Care Provider Active Dr. Quinn Pérez MD Attending Provider Active Team Status: Active Member Role Status Dates Jordana Garcia CUSTOMER ORDER CLERK, CUSTOMER ORDER CLERK-C Referring Provider, Other Provi linda Active Dr. Erasmo Pierre MD Primary Care Provider Active Dr. Rk Parks MD Attending Provider Active Team Status: Active Member Role Status Dates Dr. Erasmo Pierre MD Primary Care Provider Active Jordana Garcia CUSTOMER ORDER CLERK, CUSTOMER ORDER CLERK-C Attending Provider Active Team Status: Inactive Member Role Status Dates Jordana Garcia CUSTOMER ORDER CLERK, CUSTOMER ORDER CLERK-C Attending Provider, Referring P rovider Active Dr. Erasmo Pierre MD Primary Care Provider Active Team Status: Active Member Role Status Dates Dr. Erasmo Pierre MD Primary Care Provider Active Dr. Quinn Pérez MD Attending Provider, Referring Pro vider Active Team Status: Inactive Member Role Status Dates Dr. Erasmo Pierre MD Primary Care Provider Active Dr. Quinn Pérez MD Attending Provider, Referring Pro vider Active Team Status: Inactive Member Role Status Dates Dr. Erasmo Pierre MD Primary Care Provider, Referr ing Provider Active Dr. Quinn Pérez MD Active Dr. Wong Ortiz MD Attending Provider Active Team Status: Active Member Role Status Dates Dr. Erasmo Pierre MD Primary Care Provider, Referr ing Provider Active Amarilis Griffiths Attending Provider Active Team Status: Inactive Member Role Status Dates Dr. Erasmo Pierre MD Primary Care Provider, Referr ing Provider Active Dr. Quinn Pérez MD Attending Provider Active Team Status: Inactive Member Role Status Dates Dr. Erasmo Pierre MD Primary Care Provider Active Dr. Quinn Pérez MD Attending Provider Active Team Status: Active Member Role Status Dates Dr. Rosanne Waddell DO Primary Care Provider Active Team Status: Inactive Member Role Status Dates Dr. Erasmo Pierre MD Primary Care Provider Active Start: February 16, 2024 End: February 16, 2024 Dr. Refugio Garcia MD Attending Provider Active Start: February 16, 2024 End: February 16, 2024 Dr. Refugio Garcia MD Referring Provider Active Start: February 16, 2024 End: February 16, 2024 Team Status: Inactive Member Role Status Dates Dr. Erasmo Pierre MD Primary Care Provider Active Start: February 20, 2024 End: February 20, 2024 Dr. Quinn Pérez MD Attending Provider Active S tart: February 20, 2024 End: February 20, 2024 Dr. Quinn Pérez MD Referring Provider Active S tart: February 20, 2024 End: February 20, 2024 Team Status: Inactive Member Role Status Dates Dr. Erasmo Pierre MD Primary Care Provider Active Start: May 11, 2024 End: May 11, 2024 Dr. Quinn Pérez MD Attending Provider Active S tart: May 11, 2024 End: May 11, 2024 Dr. Quinn Pérez MD Referring Provider Active S tart: May 11, 2024 End: May 11, 2024 Team Status: Inactive Member Role Status Dates REBEL SARGENT Attending Provider Active Start : June 06, 2024 End: June 06, 2024 Dr. Rosanne Waddell DO Primary Care Provider Active Start: June 06, 2024 End: June 06, 2024 Team Status: Active Member Role Status Dates REBEL SARGENT Other Provider Active Start: [facility] [address] Dr. Rosanne Waddell DO Primary Care Provider Active Start: June 06, 2024 Dr. Marah Hopson MD Attending Provider Active S tart: June 06, 2024 Hand Straightener Relationship Specialty Start Date End Date Rosanne Waddell DO [address] [place] [address] PCP - General Internal Medicine 08/13/24 Team Status: Active Member Role Status Dates REBEL SARGENT Other Provider Active Start: [facility] [address]24 Dr. Rosanne Waddell DO Primary Care Provider Active Start: June 06, 2024 Dr. Marah Hopson MD Attending Provider Active S tart: June 06, 2024 Dr. Marah Hopson MD Referring Provider Active S tart: June 06, 2024 Team Status: Inactive Member Role Status Dates Dr. Erasmo Pierre MD Referring Provider Active Start: July 12, 2024 End: July 12, 2024 Dr. Zhen Kirk DO Attending Provider Active Start: July 12, 2024 End: July 12, 2024 Dr. Rosanne Waddell DO Primary Care Provider Active Start: July 12, 2024 End: July 12, 2024 Team Status: Inactive Member Role Status Dates Dr. Rosanne Waddell DO Primary Care Provider Active Start: August 10, 2024 End: August 10, 2024 Dr. Quinn Pérez MD Attending Provider Active S tart: August 10, 2024 End: August 10, 2024 Team Status: Inactive Member Role Status Dates Dr. Rosanne Waddell DO Primary Care Provider Active Start: August 10, 2024 End: August 10, 2024 Dr. Quinn Pérez MD Attending Provider Active S tart: August 10, 2024 End: August 10, 2024 Dr. Quinn Pérez MD Referring Provider Active S tart: August 10, 2024 End: August 10, 2024 Team Status: Inactive Member Role Status Dates Dr. Erasmo Pierre MD Referring Provider Active Start: August 30, 2024 End: August 30, 2024 Erasmo Luna NP, CUSTOMER ORDER CLERK-C Attending Provider Active S tart: August 30, 2024 End: August 30, 2024 Dr. Rosanne Waddell DO Primary Care Provider Active Start: August 30, 2024 End: August 30, 2024 Team Status: Active Member Role/Relationship Status Dates Dr. Rosanne Waddell DO Primary Care Provider Active Team Status: Inactive Member Role/Relationship Status Dates Dr. Erasmo Pierre MD Primary Care Provider Active Start: May 11, 2024 End: May 11, 2024 Dr. Quinn Pérez MD Attending Provider Active S tart: May 11, 2024 End: May 11, 2024 Dr. Quinn Pérez MD Referring Provider Active S tart: May 11, 2024 End: May 11, 2024 Team Status: Inactive Member Role/Relationship Status Dates REBEL SARGENT Attending Provider Active Start : June 06, 2024 End: June 06, 2024 Dr. Rosanne Waddell DO Primary Care Provider Active Start: June 06, 2024 End: June 06, 2024 Team Status: Active Member Role/Relationship Status Dates REBEL SARGENT Other Provider Active Start: 2024 Dr. Rosanne Waddell DO Primary Care Provider Active Start: June 06, 2024 Dr. Marah Hopson MD Attending Provider Active S tart: June 06, 2024 Dr. Marah Hopson MD Referring Provider Active S tart: June 06, 2024 Team Status: Inactive Member Role/Relationship Status Dates Dr. Erasmo Pierre MD Referring Provider Active Start: July 12, 2024 End: July 12, 2024 Dr. Zhen Kirk DO Attending Provider Active Start: July 12, 2024 End: July 12, 2024 Dr. Rosanne Waddell DO Primary Care Provider Active Start: July 12, 2024 End: July 12, 2024 Team Status: Inactive Member Role/Relationship Status Dates Dr. Rosanne Waddell DO Primary Care Provider Active Start: August 10, 2024 End: August 10, 2024 Dr. Quinn Pérez MD Attending Provider Active S tart: August 10, 2024 End: August 10, 2024 Dr. Quinn Pérez MD Referring Provider Active S tart: August 10, 2024 End: August 10, 2024 Team Status: Inactive Member Role/Relationship Status Dates Dr. Erasmo Pierre MD Referring Provider Active Start: August 30, 2024 End: August 30, 2024 Erasmo Luna CUSTOMER ORDER CLERK, CUSTOMER ORDER CLERK-C Attending Provider Active S tart: August 30, 2024 End: August 30, 2024 Dr. Rosanne Waddell DO Primary Care Provider Active Start: August 30, 2024 End: August 30, 2024 Team Status: Inactive Member Role/Relationship Status Dates Dr. Rosanne Waddell DO Primary Care Provider Active Start: August 30, 2024 End: August 30, 2024 Erasmo Luna CUSTOMER ORDER CLERK, CUSTOMER ORDER CLERK-C Attending Provider Active S tart: August 30, 2024 End: August 30, 2024 Erasmo Luna CUSTOMER ORDER CLERK, CUSTOMER ORDER CLERK-C Referring Provider Active S tart: August 30, 2024 End: August 30, 2024 Team Status: Inactive Member Role/Relationship Status Dates REBEL SARGENT Attending Provider Active Start : June 06, 2024 End: June 06, 2024 Dr. Rosanne Waddell DO Primary Care Provider Active Start: June 06, 2024 End: June 06, 2024 Team Status: Active Member Role/Relationship Status Dates REBEL SARGENT Other Provider Active Start: 2024 Dr. Rosanne Waddell DO Primary Care Provider Active Start: June 06, 2024 Dr. Marah Hopson MD Attending Provider Active S tart: June 06, 2024 Dr. Marah Hopson MD Referring Provider Active S tart: June 06, 2024 Team Status: Inactive Member Role/Relationship Status Dates Dr. Erasmo Pierre MD Referring Provider Active Start: July 12, 2024 End: July 12, 2024 Dr. Zhen Kirk DO Attending Provider Active Start: July 12, 2024 End: July 12, 2024 Dr. Rosanne Waddell DO Primary Care Provider Active Start: July 12, 2024 End: July 12, 2024 Team Status: Inactive Member Role/Relationship Status Dates Dr. Rosanne Waddell DO Primary Care Provider Active Start: August 10, 2024 End: August 10, 2024 Dr. Quinn Pérez MD Attending Provider Active S tart: August 10, 2024 End: August 10, 2024 Dr. Quinn Pérez MD Referring Provider Active S tart: August 10, 2024 End: August 10, 2024 Team Status: Inactive Member Role/Relationship Status Dates Dr. Erasmo Pierre MD Referring Provider Active Start: August 30, 2024 End: August 30, 2024 Erasmo Luna CUSTOMER ORDER CLERK, CUSTOMER ORDER CLERK-C Attending Provider Active S tart: August 30, 2024 End: August 30, 2024 Dr. Rosanne Waddell DO Primary Care Provider Active Start: August 30, 2024 End: August 30, 2024 Team Status: Inactive Member Role/Relationship Status Dates Dr. Rosanne Waddell DO Primary Care Provider Active Start: August 30, 2024 End: August 30, 2024 Erasmo Luna CUSTOMER ORDER CLERK, CUSTOMER ORDER CLERK-C Attending Provider Active S tart: August 30, 2024 End: August 30, 2024 Erasmo Luna CUSTOMER ORDER CLERK, CUSTOMER ORDER CLERK-C Referring Provider Active S tart: August 30, 2024 End: August 30, 2024 Team Status: Inactive Member Role/Relationship Status Dates Dr. Rosanne Waddell DO Primary Care Provider Active Start: September 27, 2024 End: September 27, 2024 Dr. Rosanne Waddell DO Referring Provider Active Start: September 27, 2024 End: September 27, 2024 Erasmo Luna CUSTOMER ORDER CLERK, CUSTOMER ORDER CLERK-C Attending Provider Active S tart: September 27, 2024 End: September 27, 2024 Hand Straightener Relationship Specialty Start Date End Date Rosanne Waddell DO [address] [place] [address] PCP - General Internal Medicine 08/13/24 Hand Straightener Relationship Specialty Start Date End Date Rosanne Waddell DO [address] [place] [address] PCP - General Internal Medicine 08/13/24 Team Status: Inactive Member Role/Relationship Status Dates Dr. Erasmo Pierre MD Referring Provider Active Start: July 12, 2024 End: July 12, 2024 Dr. Zhen Kirk DO Attending Provider Active Start: July 12, 2024 End: July 12, 2024 Dr. Rosanne Waddell DO Primary Care Provider Active Start: July 12, 2024 End: July 12, 2024 Team Status: Inactive Member Role/Relationship Status Dates Dr. Rosanne Waddell DO Primary Care Provider Active Start: August 10, 2024 End: August 10, 2024 Dr. Quinn Pérez MD Attending Provider Active S tart: August 10, 2024 End: August 10, 2024 Dr. Quinn Pérez MD Referring Provider Active S tart: August 10, 2024 End: August 10, 2024 Team Status: Inactive Member Role/Relationship Status Dates Dr. Erasmo Pierre MD Referring Provider Active Start: August 30, 2024 End: August 30, 2024 Erasmo Luna CUSTOMER ORDER CLERK, CUSTOMER ORDER CLERK-C Attending Provider Active S tart: August 30, 2024 End: August 30, 2024 Dr. Rosanne Waddell DO Primary Care Provider Active Start: August 30, 2024 End: August 30, 2024 Team Status: Inactive Member Role/Relationship Status Dates Dr. Rosanne Waddell DO Primary Care Provider Active Start: August 30, 2024 End: August 30, 2024 Erasmo Luna CUSTOMER ORDER CLERK, CUSTOMER ORDER CLERK-C Attending Provider Active S tart: August 30, 2024 End: August 30, 2024 Erasmo Luna CUSTOMER ORDER CLERK, CUSTOMER ORDER CLERK-C Referring Provider Active S tart: August 30, 2024 End: August 30, 2024 Team Status: Inactive Member Role/Relationship Status Dates Dr. Rosanne Waddell DO Primary Care Provider Active Start: September 27, 2024 End: September 27, 2024 Dr. Rosanne Waddell DO Referring Provider Active Start: September 27, 2024 End: September 27, 2024 Erasmo Luna CUSTOMER ORDER CLERK, CUSTOMER ORDER CLERK-C Attending Provider Active S tart: September 27, 2024 End: September 27, 2024 Team Status: Inactive Member Role/Relationship Status Dates Dr. Rosanne Waddell DO Primary Care Provider Active Start: November 09, 2024 End: November 09, 2024 Dr. Shira Bryant DO Emergency Provider Active Start: November 09, 2024 End: November 09, 2024 Team Status: Inactive Member Role/Relationship Status Dates Dr. Rosanne Waddell DO Primary Care Provider Active Start: August 10, 2024 End: August 10, 2024 Dr. Quinn Pérez MD Attending Provider Active S tart: August 10, 2024 End: August 10, 2024 Dr. Quinn Pérez MD Referring Provider Active S tart: August 10, 2024 End: August 10, 2024 Team Status: Inactive Member Role/Relationship Status Dates Dr. Erasmo Pierre MD Referring Provider Active Start: August 30, 2024 End: August 30, 2024 Erasmo Luna CUSTOMER ORDER CLERK, CUSTOMER ORDER CLERK-C Attending Provider Active S tart: August 30, 2024 End: August 30, 2024 Dr. Rosanne Waddell DO Primary Care Provider Active Start: August 30, 2024 End: August 30, 2024 Team Status: Inactive Member Role/Relationship Status Dates Dr. Rosanne Waddell DO Primary Care Provider Active Start: August 30, 2024 End: August 30, 2024 Erasmo Luna CUSTOMER ORDER CLERK, CUSTOMER ORDER CLERK-C Attending Provider Active S tart: August 30, 2024 End: August 30, 2024 Erasmo Luna CUSTOMER ORDER CLERK, CUSTOMER ORDER CLERK-C Referring Provider Active S tart: August 30, 2024 End: August 30, 2024 Team Status: Inactive Member Role/Relationship Status Dates Dr. Rosanne Waddell DO Primary Care Provider Active Start: September 27, 2024 End: September 27, 2024 Dr. Rosanne Waddell DO Referring Provider Active Start: September 27, 2024 End: September 27, 2024 Erasmo Luna CUSTOMER ORDER CLERK, CUSTOMER ORDER CLERK-C Attending Provider Active S tart: September 27, 2024 End: September 27, 2024 Team Status: Inactive Member Role/Relationship Status Dates Dr. Rosanne Waddell DO Primary Care Provider Active Start: November 09, 2024 End: November 09, 2024 Dr. Quinn Pérez MD Attending Provider Active S tart: November 09, 2024 End: November 09, 2024 Team Status: Inactive Member Role/Relationship Status Dates Dr. Rosanne Waddell DO Primary Care Provider Active Start: November 09, 2024 End: November 09, 2024 Dr. Shira Bryant DO Attending Provider Active Start: November 09, 2024 End: November 09, 2024 Dr. Shira Bryant DO Emergency Provider Active Start: November 09, 2024 End: November 09, 2024 Hand Straightener Relationship Specialty Start Date End Date Rosanne Waddell DO [address] [place] [address] PCP - General Internal Medicine 08/13/24 Hand Straightener Relationship Specialty Start Date End Date Rosanne Waddell DO [address] [place] [address] PCP - General Internal Medicine 08/13/24 Goals (unrecognized section and content) Goals may be documented in a n alternate sectionGoals may be documented in an alternate sectionGoals may be documented in an alternate sectionGoals may be documented in an alternate sectionGoals may be documented in an alternate sectionGoals may be documented in an alternate sectionGoals may be documented in an alternate sectionGoals may be documented in an alternate sectionGoals may be documented in an alternate sectionGoals may be documented in an alternate sectionGoals may be documented in an alternate sectionGoals may be documented in an alternate sectionGoals may be documented in an alternate sectionGoals may be documented in an alternate sectionGoals may be documented in an alternate sectionGoals may be documented in an alternate sectionGoals may be documented in an alternate sectionGoals may be documented in an alternate sectionGoals may be documented in an alternate sectionGoals may be documented in an alternate section No data available for this sectionGoals may be documented in an alternate sectionGoals may be documented in an alternate sectionGoals may be documented in an alternate sectionGoals may be documented in an alternate sectionGoals may be documented in an alternate sectionGoals may be documented in an alternate section Scheduled Active and Recently Administ ered Medications (unrecognized section and content) Medication Order 10/26/2024 10/27/2024 10/28/2024 aspirin chewable tablet 324 mg (COMPLETED) 324 mg, Oral, Once, On Tue10/28/24 at 1015, For 1 dose 1048 (Given - Provid er: Dary Quintanilla RN) Scheduled Medication Order 11/17/2024 11/18/2024 11/19/2024 aspirin chewable tablet 81 mg 81 mg, Oral, Daily, First dose on 11/14/24 at 0900 0933 (Given - Provider: Susan Camilo RN) 0908 (Given - Provider: Susan Camilo RN) 1011 (Given - Provider: Deisy Johnston RN) cefTRIAXone (Rocephin) 2,000 mg in sodium chloride 0.9 % 50 mL IVPB Mini-Bag Plus 2,000 mg, IntraVENous, at 100 mL/hr, Administer over 30 Minutes, Every 24 hours, First dose on Alicia 11/15/24 at 1930, Mini-Bag Plus bag, Suspected Indication (Select all that apply): Bloodstream Infection 1936 (New Bag - Provider: Anita Shanks, RN)2033 (Stopped - Provider: Anita Shanks RN) 2237 (New Bag - Provider: Antionette King RN - Comment: short staffed)2307 (Stopped - Provider: Antionette King RN) 1930 (Canceled Entry - Provider: Automatic Discharge Provider - Comment: Automatically canceled at discontinue of medication order) cetirizine (ZyrTEC) tablet 5 mg 5 mg, Oral, Daily, First dose on Tue11/14/24 at 0900, Substituted for Loratadine (CLARITIN). 0933 (Given - Provider: Susan Camilo RN) 0908 (Given - Provider: Susan Camilo RN) 1010 (Given - Provider: Deisy Johnston RN) chlorhexidine (Hibiclens) 4 % solution Topical, Daily, First dose on Tue11/20/24 at 1400 folic acid (Folvite) tablet 1 mg 1 mg, Oral, Daily, First dose on Tue11/14/24 at 0900 0933 (Given - Provider: Susan Camilo RN) 0908 (Given - Provider: Susan Camilo RN) 1013 (Given - Provider: Deisy Johnston RN) gabapentin (Neurontin) capsule 200 mg 200 mg, Oral, 3 times daily, First dose (after last modification) on Tue11/16/24 at 1400 0933 (Given - Provider: Susan Camilo RN)1434 (Given - Provider: Susan Camilo RN)2033 (Given - Provider: Anita Shanks RN) 0908 (Given - Provider: Susan Camilo RN)1424 (Given - Provider: Susan Camilo RN)2238 (Given - Provider: Antionette King RN) 1010 (Given - Provider: Deisy Johnston RN)1311 (Given - Provider: Santa Roberts RN)2100 (Canceled Entry - Provider: Automatic Discharge Provider - Comment: Automatically canceled at discontinue of medication order) isosorbide mononitrate ER (Imdur) 24 hr tablet 30 mg 30 mg, Oral, Daily, First dose on Tue11/14/24 at 0900, Do not chew or crush ER tablets; may be divided in half. Due to insoluble matrix embedding, ER tablets that are scored may be split., On hold since Tue11/13/2024 at 1920 until manually unheld 899 (Dose Auto Held - Provider: Jovanny Tobar APRN - ORACLE DATABASE ADMINISTRATOR) 0900 (Dose Auto Held - Provider: Jovanny Tobar, SNAPPER ON - ORACLE DATABASE ADMINISTRATOR) 0900 (Dose Auto Held) lisinopril tablet 5 mg 5 mg, Oral, Daily, First dose on Tue11/13/24 at 1800 0933 (Given - Provider: Susan Camilo RN) 0908 (Given - Provider: Susan Camilo RN) 1010 (Given - Provider: Deisy Johnston, LINDA) metoprolol tartrate (Lopressor) tablet 12.5 mg 12.5 mg, Oral, 2 times daily, First dose on Tue11/16/24 at 1200 0933 (Given - Provider: Susan Camilo, LINDA)2032 (Given - Provider: Anita Shanks RN) 907 (Given - Provider: Susan Camilo RN)223 (Given - Provider: Antionette King, LINDA) 101 (Given - Provider: Deisy Johnston RN)2100 (Canceled Entry - Provider: Automatic Discharge Provider - Comment: Automatically canceled at discontinue of medication order) montelukast (Singulair) tablet 10 mg 10 mg, Oral, Nightly, First dose on Tue11/13/24 at 2100 2032 (Given - Provider: Anita Shanks, LINDA) 223 (Given - Provider: Antionette King, LINDA) 2099 (Canceled Entry - Provider: Automatic Discharge Provider - Comment: Automatically canceled at discontinue of medication order) mupirocin (Bactroban) 2 % ointment 1 Application () 1 Application, Nasal, 2 times daily, First dose on Tue11/13/24 at 2100, For 5 days, Indications: MRSA Nasal Decolonization 0939 (Given - Provider: Susan Camilo, LINDA)2033 (Given - Provider: Anita Shanks, LINDA) 09 (Given - Provider: Susan Camilo RN) pantoprazole (ProtoNix) EC tablet 40 mg 40 mg, Oral, Daily before breakfast, First dose on Tue11/14/24 at 0600, Do not crush, chew, or split. 0454 (Given - Provider: Genoveva Kenney RN) 0545 (Given - Provider: Anita Shanks RN) 0500 (Given - Provider: Antionette King, LINDA) potassium chloride CR (Klor-Con M10) ER tablet 40 mEq (COMPLETED) 40 mEq, Oral, Once, On Tue11/18/24 at 0845, For 1 dose, Best given with food and plenty of water to minimize gastric irritation. Do not crush or chew. 09 (Given - Provider: Susan Camilo RN) pravastatin (Pravachol) tablet 80 mg 80 mg, Oral, Nightly, First dose on Tue11/13/24 at 2100 2032 (Given - Provider: Anita Shanks RN) 2237 (Given - Provider: Antionette King, LINDA) 2099 (Canceled Entry - Provider: Automatic Discharge Provider - Comment: Automatically canceled at discontinue of medication order) sodium chloride 0.9% (NS) flush 10 mL 10 mL, IntraCATHeter, Every 12 hours, First dose on Tue11/19/24 at 0915, Administer to each lumen. Line Care. Use 10 mL or larger syringe. 102 (Canceled Entry - Provider: Santa Roberts RN - Comment: PICC line just inserted)2114 (Canceled Entry - Provider: Automatic Discharge Provider - Comment: Automatically canceled at discontinue of medication order) sodium chloride 0.9% (NS) flush 5-40 mL 5-40 mL, IntraVENous, Every 12 hours scheduled (2 times per day), First dose on Tue11/13/24 at 1000, For Line Patency: Peripheral IV = 5 mL; Midline or Central Line = 10 mL/lumen. If following IV push medication, administer flush at same rate as the IV push. Flush volume is determined by type of infusion therapy being given. For non-viscous solutions use: Peripheral IV = 5 mL Midline or Central Line = 10 mL/lumen For viscous solutions (i.e. blood components, parenteral nutrition, contrast media, or after obtaining blood sample) use: Peripheral IV = 10 mL Midline or Central Line = 20 mL/lumen 0941 (Given - Provider: Susan Camilo RN)2033 (Given - Provider: Anita Shanks RN) 912 (Given - Provider: Susan Camilo RN)2241 (Given - Provider: Antionette King, LINDA) 102 (Canceled Entry - Provider: Santa Roberts RN)2099 (Canceled Entry - Provider: Automatic Discharge Provider - Comment: Automatically canceled at discontinue of medication order) trospium (Sanctura) tablet 20 mg 20 mg, Oral, Daily, First dose on Tue11/14/24 at 0900, Substituted for oxybutynin (DITROPAN); fesoterodine (TOVIAZ); darifenacin (ENABLEX); solifenacin (VESICARE); tolterodine IR (DETROL); tolterodine ER (DETROL LA). Give one hour before meals. 0933 (Given - Provider: Susan Camilo RN) 0908 (Given - Provider: Susan Camilo RN) 1012 (Given - Provider: Deisy Johnston RN) warfarin (Coumadin) tablet 0.5 mg (COMPLETED) 0.5 mg, Oral, Once Warfarin, On 11/17/24 at 1700, For 1 dose 1813 (Given - Provider: Susan Camilo RN) warfarin (Coumadin) tablet 0.5 mg (COMPLETED) 0.5 mg, Oral, Once Warfarin, On 11/18/24 at 1700, For 1 dose 1728 (Given - Provider: Susan Camilo RN) warfarin (Coumadin) tablet 1.5 mg (COMPLETED) 1.5 mg, Oral, Once Warfarin, On 11/19/24 at 1700, For 1 dose 1732 (Given - Provider: Santa Roberts RN) PRN Medication Order 11/17/2024 11/18/2024 11/19/2024 acetaminophen (Tylenol) tablet 650 mg 650 mg, Oral, Every 6 hours PRN, mild pain (1-3), fever, headaches, Starting on Tue11/13/24 at 1745, Maximum dose of acetaminophen is 4000 mg from all sources in 24 hours. 0932 (Given - Provider: Susan Camilo RN) 2242 (Given - Provider: Antionette King RN) albuterol (2.5 MG/3ML) 0.083% nebulizer solution 2.5 mg 2.5 mg, Nebulization, Every 4 hours PRN, wheezing, shortness of breath, Starting on Alicia 11/15/24 at 1655, Initiate RT Bronchodilator Protocol? No lidocaine PF (Xylocaine) 1 % injection (COMPLETED) As needed, Starting on Tue11/19/24 at 0907, Intraprocedure 0907 (Given - Provider: Yudi Fisher PA-C) melatonin tablet 3 mg 3 mg, Oral, Nightly PRN, sleep, Starting on Tue11/14/24 at 1230 2033 (Given - Provider: Anita Shanks, LINDA) methocarbamol (Robaxin) tablet 500 mg 500 mg, Oral, Every 8 hours PRN, muscle spasms, Starting on Tue11/13/24 at 1745 nitroglycerin (Nitrostat) SL tablet 0.4 mg 0.4 mg, SubLINGual, Every 5 min PRN, chest pain, Starting on Tue11/13/24 at 1745, May administer up to 3 doses per episode. ondansetron (Zofran) injection 4 mg(Linked Group 1) 4 mg, IntraVENous, Every 6 hours PRN, nausea, vomiting, Starting on Tue11/13/24 at 1745, 1st Line. Give IV if patient is unable to take orally. If inadequate response within 60 minutes, proceed to next-line agent or contact provider if no further options ordered. ondansetron ODT (Zofran-ODT) disintegrating tablet 4 mg(Linked Group 1) 4 mg, Oral, Every 8 hours PRN, nausea, vomiting, Starting on Tue11/13/24 at 1745, 1st Line. If inadequate response within 60 minutes, proceed to next-line agent or contact provider if no further options ordered. Patient should allow tablet to dissolve on tongue. Do not remove from blister pack until just before administering. polyethylene glycol (PEG) 3350 (Miralax) packet 17 g 17 g, Oral, Daily PRN, constipation, Starting on Tue11/13/24 at 1745, 1st line for treatment of constipation - give scheduled if no bowel movement in past 24 hours. sodium chloride 0.9 % infusion 5-250 mL/hr, IntraVENous, PRN, if patient receiving piggyback infusions and maintenance fluids are not ordered OR KVO fluids to protect IV site / prevent frequent line interruptions/ long duration, Starting on Tue11/13/24 at 0958, For piggyback infusion, administer at same rate as piggyback for a total of 25 mL. Enter 25 mL into dose field and piggyback rate into rate field of order. If piggyback is infusing at a rate less than 100 mL/hr, enter 25 mL into dose field and 100 mL/hr into rate field of order. For KVO fluids, enter rate of 20 mL/hr or less into rate field of order. sodium chloride 0.9% (NS) flush 10 mL 10 mL, IntraCATHeter, PRN, line care, before blood draws, before and after infusion or medication administration, Starting on Tue11/19/24 at 0914, Use 10 mL or larger syringe. sodium chloride 0.9% (NS) flush 5-40 mL 5-40 mL, IntraVENous, PRN, line care, Starting on Tue11/13/24 at 0958, For Line Patency: Peripheral IV = 5 mL; Midline or Central Line = 10 mL/lumen. If following IV push medication, administer flush at same rate as the IV push. Flush volume is determined by type of infusion therapy being given. For non-viscous solutions use: Peripheral IV = 5 mL Midline or Central Line = 10 mL/lumen For viscous solutions (i.e. blood components, parenteral nutrition, contrast media, or after obtaining blood sample) use: Peripheral IV = 10 mL Midline or Central Line = 20 mL/lumen Linked Groups Order Group 1: ondansetron ODT (Zofran-ODT) disintegrating tablet 4 mgJump to med 4 mg, Oral, Every 8 hours PRN, nausea, vomiting, Starting on Tue11/13/24 at 1745, 1st Line. If inadequate response within 60 minutes, proceed to next-line agent or contact provider if no further options ordered. Patient should allow tablet to dissolve on tongue. Do not remove from blister pack until just before administering. Or ondansetron (Zofran) injection 4 mgJump to med 4 mg, IntraVENous, Every 6 hours PRN, nausea, vomiting, Starting on Tue11/13/24 at 1745, 1st Line. Give IV if patient is unable to take orally. If inadequate response within 60 minutes, proceed to next-line agent or contact provider if no further options ordered. FOR RECORDS PERTAINING TO PATIENTS WHO ARE [...] BE BASED ON THE PRIMARY CLINICAL RECORDS. [facility] [employer] [facility]. provides no warranty or guarantee of the accuracy or completeness of information in this document.
[2025-03-06 09:28] LABS: Hematocrit 34.7 % (37-47); Hemoglobin 10.5 g/dL (12.0-15.0); Immature Granulocytes Count 0.010 X10^3/uL (0.0-0.0); Mean Corp Hgb Conc 30.3 g/dL (32-36); Mean Corpuscular Volume 85.9 fL (81-99); Mean Platelet Vol. 12.9 fl (6.2-12.0); NRBC Flagged by Analyzer 0 % (0-5); Platelet Count 191 K/mm3 (150-450); RBC Distribution Width CV 15.0 % (11.6-14.6); RBC Distribution Width SD 46.3 fl (35.1-43.9); Red Blood Count 4.04 M/mm3 (4.2-5.4); White Blood Count 7.2 K/mm3 (4.4-11.0)
[2025-03-06 09:37] LABS: Prothrombin Time (Protime)PT. 25.0 SECONDS (11.7-14.9)
[2025-03-06 09:55] LABS: Anion Gap 10 (7-18); BUN 13 mg/dL (4-19); BUN/Creat Ratio 14.0 RATIO (10-20); Calcium,Total 9.0 mg/dL (7.6-11.0); Carbon Dioxide 26.9 mmol/L (20.0-29.0); Chloride 101 mmol/L (96-106); Cholesterol 180 mg/dL (<=200); Glucose 158 mg/dL (70-99); Low Density Lipoprotein Calc. 110 mg/dL; Potassium 3.8 mmol/L (3.5-5.1); Triglycerides 154 mg/dL; Very Low Density Lipoprotein 31 mg/dL (5-40); Vitamin B12 293 pg/mL (180-914); Vitamin D,25 Hydroxy 31.9 ng/mL (30-100); cholesterol:hdl ratio screen 4.24
== END ==
LOC: OLS.SWAL 05:00
PROVIDERS: PCP Internal Medicine; Visit Provider Internal Medicine
DX: I48.91 Unspecified atrial fibrillation (principal); J44.9 Chronic obstructive pulmonary disease, unspecified; I10 Essential (primary) hypertension; E53.9 Vitamin B deficiency, unspecified
CPT/HCPCS: 36415; 80048; 80061; 82306; 82607; 85025; 85610